=== PATIENT | female | born 1940 | race Caucasian/White ===

== ENCOUNTER 2017-08-10 11:03 | Outpatient (RCR) | payer MEDICARE, OTHER, SELFPAY ==
[2017-08-10 12:29] LABS: Prothrombin Time (Protime)PT. 21.6 SECONDS (11.7-14.9)
[2017-08-31 12:25] LABS: International Normalized Ratio 1.2; Prothrombin Time (Protime)PT. 14.3 SECONDS (11.7-14.9)
[2017-09-03 12:28] LABS: International Normalized Ratio 1.4; Prothrombin Time (Protime)PT. 16.5 SECONDS (11.7-14.9)
== END 2017-08-10 11:15 | disposition home or self-care (01) ==
LOC: MTLAB 11:03
PROVIDERS: Family Provider Nurse Practitioner; PCP Nurse Practitioner; Visit Provider Internal Medicine Cardiovascular Disease
DX: I48.0 Paroxysmal atrial fibrillation (principal)
CPT/HCPCS: 36415; 85610

== ENCOUNTER 2017-10-01 10:20 | Outpatient (RCR) | payer MEDICARE, OTHER, SELFPAY ==
[2017-07-27 14:45] VITALS: BP 120/60; BMI 30.7
[2017-09-10 12:42] LABS: International Normalized Ratio 1.9; Prothrombin Time (Protime)PT. 21.2 SECONDS (11.7-14.9)
[2017-09-16 14:27] LABS: International Normalized Ratio 2.4; Prothrombin Time (Protime)PT. 24.8 SECONDS (11.7-14.9)
[2017-10-01 12:36] LABS: International Normalized Ratio 1.8; Prothrombin Time (Protime)PT. 19.8 SECONDS (11.7-14.9)
== END 2017-10-01 15:00 | disposition home or self-care (01) ==
LOC: MTLAB 10:20
PROVIDERS: Family Provider Nurse Practitioner; PCP Nurse Practitioner; Visit Provider Internal Medicine Cardiovascular Disease
DX: I48.0 Paroxysmal atrial fibrillation (principal)
CPT/HCPCS: 36415; 85610

== ENCOUNTER 2017-10-18 11:08 | Outpatient (RCR) | payer MEDICARE, OTHER, SELFPAY ==
[2017-10-18 12:10] LABS: International Normalized Ratio 1.6; Prothrombin Time (Protime)PT. 19.5 SECONDS (11.7-14.9)
== END 2017-10-18 12:00 | disposition home or self-care (01) ==
LOC: MTLAB 11:08
PROVIDERS: Family Provider Nurse Practitioner; PCP Nurse Practitioner; Visit Provider Internal Medicine Cardiovascular Disease
DX: I48.0 Paroxysmal atrial fibrillation (principal)
CPT/HCPCS: 36415; 85610

== ENCOUNTER 2017-10-29 10:34 | Outpatient (RCR) | payer MEDICARE, OTHER, SELFPAY ==
[2017-10-29 12:11] LABS: Prothrombin Time (Protime)PT. 22.9 SECONDS (11.7-14.9)
== END 2017-10-29 11:00 | disposition home or self-care (01) ==
LOC: MTLAB 10:34
PROVIDERS: Family Provider Nurse Practitioner; PCP Nurse Practitioner; Visit Provider Internal Medicine Cardiovascular Disease
DX: I48.0 Paroxysmal atrial fibrillation (principal)
CPT/HCPCS: 36415; 85610

== ENCOUNTER → 2017-11-09 10:45 | Outpatient (CLI) | payer MEDICARE, OTHER, SELFPAY ==
--- NOTE | 2017-11-09 10:48 | BD_ITS ---
STUDY: DUAL ENERGY X-RAY ABSORPTIOMETRY / DXA REASON FOR EXAM: Female, 77 years old. The patient is postmenopausal. Loss of height of 2 inches. TECHNIQUE: Bone Mineral Density (BMD) measurements of lumbar spine and bilateral hips were obtained. COMPARISON: Comparison is made with prior study dated March 19, 2015. FINDINGS: Lumbar Spine (L1-L4): g/cm2 (1.264) / T-score (0.7) / Z-score (2.5) Findings are suggestive of normal bone density with a low fracture risk. Left Femur Total: g/cm2 (0.937) / T-score (-0.6) / Z-score (1.4) Left Femoral Neck: g/cm2 (0.858) / T-score (-1.3) / Z-score (0.8) Right Femur Total: g/cm2 (0.884) / T-score (-1.0) / Z-score (0.9) Right Femoral Neck: g/cm2 (1.007) / T-score (-0.2) / Z-score (1.8) The T-Scores on the most recent prior examination were: Lumbar Spine (L1-L4): There has been improvement of bone density since the previous examination. Left Femur Total: which represents a worsening of 3.7%. Right Femur Total: which represents a worsening of 2.9%. BD/Dexa Bone Density Study IMPRESSION: The patient is considered osteopenic as outlined below according to World Kir[employer] Organization (WHO) criteria with a moderate fracture risk. There has been worsening of bone density since the previous examination. Reference Information: The T-score is the number of standard deviations above or below the standard which is normal for young adults at their peak bone mineral density. The World Health Organization (WHO) interprets the T-scores as follows: Above -1 Normal bone density Between -1 and -2.5 Osteopenia Equal to / or below -2.5 Osteoporosis As a practical clinical guideline, osteopenia may be graded as follows: Mild -1 through -1.5 Moderate -1.6 through -2.0 Severe -2.1 through -2.4 The Z-score is the number of standard deviations above or below age-matched controls. A Z-score of less than -1.5 would be considered abnormal. References: 1. NIH Osteoporosis and Related Bone Diseases http://www.osteo.org 2. International Society for Clinical Densitometry http://www.iscd.org 3. National Osteoporosis Foundation http://www.nof.org Electronically Signed: Henry Jones MD at 13:40 EDT Tel [phone], Service support ,
== END ==
PROVIDERS: Family Provider Nurse Practitioner; PCP Nurse Practitioner; Visit Provider Nurse Practitioner
DX: M85.80 Other specified disorders of bone density and structure, unspecified site (principal); Z78.0 Asymptomatic menopausal state
CPT/HCPCS: 77080

== ENCOUNTER 2017-12-03 10:24 | Outpatient (RCR) | payer MEDICARE, OTHER, SELFPAY ==
[2017-11-12 12:49] LABS: International Normalized Ratio 2.2; Prothrombin Time (Protime)PT. 24.1 SECONDS (11.7-14.9)
[2017-12-03 12:27] LABS: International Normalized Ratio 2.1; Prothrombin Time (Protime)PT. 23.3 SECONDS (11.7-14.9)
== END 2017-12-03 11:00 | disposition home or self-care (01) ==
LOC: MTLAB 10:24
PROVIDERS: Family Provider Nurse Practitioner; PCP Nurse Practitioner; Visit Provider Internal Medicine Cardiovascular Disease
DX: I48.0 Paroxysmal atrial fibrillation (principal)
CPT/HCPCS: 36415; 85610

== ENCOUNTER 2017-12-31 08:11 | Outpatient (RCR) | payer MEDICARE, OTHER, SELFPAY ==
[2017-12-31 10:10] LABS: Color, Urine Yellow (Yellow); Glucose, Dipstick Normal (Normal); Ketone-Dipstick Negative (Negative); Leukocyte Esterase-Dipstick 100 /ul (Negative); Nitrite-Dipstick Negative (Negative); Occult Blood-Urine 50 /ul (Negative); Protein-Dipstick Negative (Negative); Urine Bilirubin Dipstick Negative (Negative); Urine Clarity Cloudy (Clear); Urine Urobilinogen Normal (Normal)
[2017-12-31 10:19] LABS: Absolute Lymphocyte Count 2.13 X10^3/ul (0.83-4.51); Absolute Neutrophil Count 2.7 X10^3/uL (2.0-7.7); Basophil# 0.02 X10^3/uL; Basophil% 0.4 % (0-1); Eosinophil# 0.19 X10^3/uL; Eosinophils% 3.4 % (0-5); Hematocrit 41.8 % (37-47); Lymphocyte # 2.13 X10^3/ul (4.0); Lymphocyte % 38.2 % (19-41); Mean Corp Hgb Conc 31.1 g/gl (32-36); Mean Corpuscular Hgb 29.7 pg (27.0-32.0); Mean Corpuscular Volume 95.4 fL (81-99); Mean Platelet Vol. 11.1 fl (6.2-12.0); Monocyte# 0.54 X10^3/uL; Monocyte% 9.7 % (0-10); Neutrophil # 2.69 X10^3/uL (2.7-7.7); Neutrophil % 48.1 % (47-70); POSITIVE COUNT NO; POSITIVE DIFFERENTIAL NO; POSITIVE MORPHOLOGY NO; Platelet Count 232 K/mm3 (150-450); RBC Distribution Width CV 14.1 % (11.6-14.6); RBC Distribution Width SD 49.6 fl (35.1-43.9); Red Blood Count 4.38 M/mm3 (4.2-5.4); White Blood Count 5.6 K/mm3 (4.4-11.0)
[2017-12-31 10:22] LABS: International Normalized Ratio 1.9; Prothrombin Time (Protime)PT. 21.5 SECONDS (11.7-14.9)
[2017-12-31 10:32] LABS: Microalbumin,Random Urine 13.5 mg/L (NO RANGE EST.); Microalbumin:Creatinine Ratio 8.4 mg/g CRE (<30 mg/g CRE)
[2017-12-31 10:55] LABS: ALB/GLOB Ratio 1.1 RATIO (0.9-2.4); AST(SGOT) 22 U/L (15-37); Alanine Aminotransfer ALT/SGPT 23 U/L (13-56); Albumin, Serum 3.7 g/dL (3.2-5.0); Alkaline Phosphatase 73 U/L (45-117); Anion Gap 8 (5-15); BUN 28 mg/dL (7-18); BUN/Creat Ratio 26.7 RATIO (10-20); Calcium,Total 8.5 mg/dL (8.5-10.1); Chloride 107 mmol/L (98-107); Cholesterol 164 mg/dL (200); Creatinine, Serum 1.05 mg/dL (0.55-1.02); EST Glomerular Filtration Rate 54 mL/min (>60); Est Glom Filt Rate - Afr Amer 65 mL/min (>60); Globulin 3.3 g/dL (2.2-4.2); Glucose 86 mg/dL (74-106); High Density Lipoprotein 68 mg/dL; Potassium 4.6 mmol/L (3.5-5.1); Sodium Level 143 mmol/L (136-145); Thyroid Stim Hormone (TSH) 2.92 uIU/mL (0.358-3.74); Triglycerides 85 mg/dL; Very Low Density Lipoprotein 17 mg/dL (5-40)
== END 2017-12-31 09:00 | disposition home or self-care (01) ==
LOC: MTLAB 08:11
PROVIDERS: Family Provider Nurse Practitioner; PCP Nurse Practitioner; Visit Provider Internal Medicine Cardiovascular Disease
DX: E78.00 Pure hypercholesterolemia, unspecified (principal); E03.9 Hypothyroidism, unspecified; I10 Essential (primary) hypertension; I48.0 Paroxysmal atrial fibrillation
CPT/HCPCS: 36415; 80053; 80061; 81002; 82043; 82570; 84443; 85025; 85610

== ENCOUNTER 2018-01-28 13:09 | Outpatient (RCR) | payer MEDICARE, OTHER, SELFPAY ==
--- NOTE | 2018-01-14 11:46 | DT_ITS ---
This patient was seen during an EMR downtime January 10, 2018 - January 17, 2018. This patient may have a combination of paper and electronic documentation or all paper documentation. All documentation is viewable within the e-chart portion of [facility] for each patient visit.
[2018-01-14 15:06] LABS: Prothrombin Time (Protime)PT. 22.8 SECONDS (11.7-14.9)
[2018-01-28 14:12] LABS: International Normalized Ratio 2.3; Prothrombin Time (Protime)PT. 25.7 SECONDS (11.7-14.9)
== END 2018-01-28 14:00 | disposition home or self-care (01) ==
LOC: MTLAB 13:09
PROVIDERS: Family Provider Nurse Practitioner; PCP Nurse Practitioner; Visit Provider Internal Medicine Cardiovascular Disease
DX: I48.0 Paroxysmal atrial fibrillation (principal)
CPT/HCPCS: 36415; 85610

== ENCOUNTER → 2018-02-10 10:50 | Outpatient (CLI) | payer MEDICARE, OTHER, SELFPAY ==
--- NOTE | 2018-02-10 10:52 | ECHOD_ITS ---
Reason For Study: DYSPNEA Procedure This was a 2D Doppler, Color Flow transthoracic echocardiogram. Exam performed in department. Left Ventricle Normal LV size. Transmitral and pulmonary venous doppler flow suggestive of impaired relaxation of left ventricle. Left ventricular systolic function is lower limits of normal. The estimated ejection fraction is 50 %. No regional wall motion abnormalities noted. Right Ventricle Normal RV size. Normal systolic function. Atria The left atrium is mildly enlarged. Normal right atrium. Mitral Valve Bileaflet diffuse mitral valve thickening. Mitral valve doming/Hockey Sticking. Peak transmitral valve gradient 6 mmHg. Mean transmitral valve gradient 3 mmHg. Mild mitral valve stenosis. Tricuspid Valve Normal tricuspid valve. Mild (1+) tricuspid valve insufficiency. Pulmonary artery systolic pressure is 26 mmHg. Aortic Valve Trisinus/trileaflet aortic valve. Pulmonic Valve Normal pulmonic valve. Great Vessels Normal aortic root. The pulmonary artery is normal size. Inferior vena cava collapse with respiration. Pericardium/Pleural No pericardial effusion. MMode/2D Measurements & Calculations LVIDd: 4.5 cm IVSd: 0.68 cm LAV(MOD-bp): 89.1 ml LVIDs: 3.3 cm LVPWd: 0.93 cm LAV(MOD-bp) Indexed: 48.8 ml/m2 RVDd: 3.1 cm FS: 27.8 % LAV(MOD-sp2): 116.8 ml LAV(MOD-sp4): 65.8 ml LA A4 area: 23.6 cm2 RA A4 area: 18.8 cm2 Time Measurements MV dec time: 0.40 sec Doppler Measurements & Calculations MV E max jaret: 94.1 cm/sec Lat Peak E' Jaret: 6.8 cm/sec Med Peak E' Jaret: 7.4 cm/sec MV A max jaret: 102.4 cm/sec E/E' lat: 13.7 E/E' med: 12.8 MV E/A: 0.92 MV V2 max: 121.1 cm/sec Ao V2 max: 108.4 cm/sec LV V1 max: 87.9 cm/sec MV max P.9 mmHg Ao max P.7 mmHg LV V1 max P.1 mmHg MV V2 mean: 83.1 cm/sec MV mean P.0 mmHg MV V2 VTI: 47.3 cm PA V2 max: 57.2 cm/sec TR max jaret: 239.6 cm/sec TR max P.0 mmHg Interpretation Summary Normal LV size. Transmitral and pulmonary venous doppler flow suggestive of impaired relaxation of left ventricle Left ventricular systolic function is lower limits of normal. The estimated ejection fraction is 50 %. Mitral valve doming/Hockey Sticking Mild mitral valve stenosis. Compared to prior study, there is no significant change. Ordering Physician: Jennifer Goodwin/Amilcar Bernardo Referring Physician: REGI BRO Performed By: Mary Hines, RDCS, RVT
== END ==
PROVIDERS: Family Provider Nurse Practitioner; PCP Nurse Practitioner; Visit Provider Physician Assistant Medical
DX: I42.0 Dilated cardiomyopathy (principal); R06.00 Dyspnea, unspecified; Z98.890 Other specified postprocedural states
CPT/HCPCS: 93306

== ENCOUNTER 2018-02-18 10:12 | Outpatient (RCR) | payer MEDICARE, OTHER, SELFPAY ==
[2018-02-18 12:19] LABS: International Normalized Ratio 2.2; Prothrombin Time (Protime)PT. 24.6 SECONDS (11.7-14.9)
== END 2018-02-18 12:00 ==
LOC: MTLAB 10:12
PROVIDERS: Family Provider Nurse Practitioner; PCP Nurse Practitioner; Visit Provider Internal Medicine Cardiovascular Disease
DX: I48.0 Paroxysmal atrial fibrillation (principal)
CPT/HCPCS: 36415; 85610

== ENCOUNTER → 2018-03-02 11:24 | Outpatient (CLI) | payer MEDICARE, OTHER, SELFPAY ==
--- NOTE | 2018-03-02 11:27 | RAD_ITS ---
STUDY: X-RAY - RIGHT FEMUR REASON FOR STUDY: Female, 77 years old. Pain. No known injury. TECHNIQUE: Radiological exam, femur, 4 views COMPARISON: X-ray right hip 07/19/2014. FINDINGS: Normal visualized femur. Normal visualized soft tissue structure. There is degenerative arthrosis of the right hip, similar to previous exam. RAD/Femur Min 2 Views IMPRESSION: Normal x-ray examination of the femur. Degenerative arthrosis of the right hip. Electronically Signed: Christiano Croft MD at 6:11 EDT , Service support ,
== END ==
PROVIDERS: Family Provider Nurse Practitioner; PCP Nurse Practitioner; Visit Provider Nurse Practitioner
DX: M16.11 Unilateral primary osteoarthritis, right hip (principal)
CPT/HCPCS: 73552

== ENCOUNTER 2018-03-18 11:02 | Outpatient (RCR) | payer MEDICARE, OTHER, SELFPAY ==
[2018-03-18 12:47] LABS: International Normalized Ratio 2.2; Prothrombin Time (Protime)PT. 24.3 SECONDS (11.7-14.9)
== END 2018-03-18 12:00 | disposition home or self-care (01) ==
LOC: MTLAB 11:02
PROVIDERS: Family Provider Nurse Practitioner; PCP Nurse Practitioner; Visit Provider Internal Medicine Cardiovascular Disease
DX: I48.0 Paroxysmal atrial fibrillation (principal)
CPT/HCPCS: 36415; 85610

== ENCOUNTER → 2018-04-07 09:48 | Outpatient (CLI) | payer MEDICARE, OTHER, SELFPAY | PROVIDERS: Family Provider Nurse Practitioner; PCP Nurse Practitioner; Visit Provider Surgery | DX: I87.2 Venous insufficiency (chronic) (peripheral) (principal); I83.10 Varicose veins of unspecified lower extremity with inflammation; M79.604 Pain in right leg | CPT/HCPCS: 93970 ==

== ENCOUNTER 2018-04-18 11:08 | Outpatient (RCR) | payer MEDICARE, OTHER, SELFPAY ==
[2018-04-18 14:12] LABS: International Normalized Ratio 2.2; Prothrombin Time (Protime)PT. 24.6 SECONDS (11.7-14.9)
== END 2018-04-18 13:00 | disposition home or self-care (01) ==
LOC: MTLAB 11:08
PROVIDERS: Family Provider Nurse Practitioner; PCP Nurse Practitioner; Visit Provider Internal Medicine Cardiovascular Disease
DX: I48.0 Paroxysmal atrial fibrillation (principal)
CPT/HCPCS: 36415; 85610

== ENCOUNTER 2018-05-13 11:07 | Outpatient (RCR) | payer MEDICARE, OTHER, SELFPAY ==
[2018-05-13 12:13] LABS: International Normalized Ratio 2.7; Prothrombin Time (Protime)PT. 28.4 SECONDS (11.7-14.9)
== END 2018-05-13 12:00 | disposition home or self-care (01) ==
LOC: MTLAB 11:07
PROVIDERS: Family Provider Nurse Practitioner; PCP Nurse Practitioner; Referring Provider Internal Medicine Cardiovascular Disease; Visit Provider Internal Medicine Cardiovascular Disease
DX: I48.0 Paroxysmal atrial fibrillation (principal); Z79.01 Long term (current) use of anticoagulants
CPT/HCPCS: 36415; 85610

== ENCOUNTER 2018-06-07 10:45 | Outpatient (RCR) | payer MEDICARE, OTHER, SELFPAY ==
[2018-06-07 11:55] LABS: International Normalized Ratio 2.8; Prothrombin Time (Protime)PT. 29.6 SECONDS (11.7-14.9)
[2018-06-07 12:14] LABS: ALB/GLOB Ratio 1.1 RATIO (0.9-2.4); AST(SGOT) 19 U/L (15-37); Alanine Aminotransfer ALT/SGPT 25 U/L (13-56); Albumin, Serum 3.8 g/dL (3.2-5.0); Alkaline Phosphatase 66 U/L (45-117); Anion Gap 5 (5-15); BUN 23 mg/dL (7-18); BUN/Creat Ratio 22.8 RATIO (10-20); Calcium,Total 8.6 mg/dL (8.5-10.1); Chloride 106 mmol/L (98-107); Cholesterol 182 mg/dL (200); Creatinine, Serum 1.01 mg/dL (0.55-1.02); EST Glomerular Filtration Rate 56 mL/min (>60); Est Glom Filt Rate - Afr Amer 68 mL/min (>60); Globulin 3.4 g/dL (2.2-4.2); Glucose 86 mg/dL (74-106); High Density Lipoprotein 69 mg/dL; Potassium 4.8 mmol/L (3.5-5.1); Protein, Total 7.2 g/dL (6.4-8.2); Sodium Level 141 mmol/L (136-145); Triglycerides 125 mg/dL; Very Low Density Lipoprotein 25 mg/dL (5-40)
== END 2018-06-07 12:00 | disposition home or self-care (01) ==
LOC: LAB 10:45
PROVIDERS: Family Provider Nurse Practitioner; PCP Nurse Practitioner; Referring Provider Internal Medicine Cardiovascular Disease; Visit Provider Internal Medicine Cardiovascular Disease
DX: I48.0 Paroxysmal atrial fibrillation (principal); E78.00 Pure hypercholesterolemia, unspecified; Z79.01 Long term (current) use of anticoagulants
CPT/HCPCS: 36415; 80053; 80061; 85610

== ENCOUNTER 2018-07-01 08:57 | Outpatient (RCR) | payer MEDICARE, OTHER, SELFPAY ==
[2018-07-01 09:27] LABS: Prothrombin Time (Protime)PT. 31.3 SECONDS (11.7-14.9)
[2018-07-01 10:00] LABS: AST(SGOT) 18 U/L (15-37); Alanine Aminotransfer ALT/SGPT 26 U/L (13-56); Albumin, Serum 3.5 g/dL (3.2-5.0); Alkaline Phosphatase 59 U/L (45-117); Bilirubin, Direct 0.13 mg/dL (0.00-0.30); Cholesterol 161 mg/dL (200); Globulin 3.1 g/dL (2.2-4.2); High Density Lipoprotein 73 mg/dL; Protein, Total 6.6 g/dL (6.4-8.2); Triglycerides 85 mg/dL; Very Low Density Lipoprotein 17 mg/dL (5-40)
[2018-07-01 10:22] LABS: Vitamin B12 382 pg/mL (211-911)
== END 2018-07-08 10:54 | disposition home or self-care (01) ==
LOC: LAB 08:57
PROVIDERS: Physician Assistant Medical; Family Provider Nurse Practitioner; PCP Nurse Practitioner; Referring Provider Internal Medicine Cardiovascular Disease; Visit Provider Internal Medicine Cardiovascular Disease
DX: I48.0 Paroxysmal atrial fibrillation (principal); E03.9 Hypothyroidism, unspecified; E53.8 Deficiency of other specified B group vitamins; E78.00 Pure hypercholesterolemia, unspecified
CPT/HCPCS: 36415; 80061; 80076; 82607; 82746; 84443; 85610

== ENCOUNTER → 2018-07-08 10:46 | Outpatient (CLI) | payer MEDICARE, OTHER, SELFPAY ==
--- NOTE | 2018-07-08 10:49 | BI_ITS ---
MAMMOGRAPHY - BILATERAL SCREENING REASON FOR EXAM: Female, 78 years old. Routine annual screening examination. PERTINENT HISTORY: Non-contributory. TECHNIQUE: Digital bilateral breast maurilio (3D mammographic acquisition) in the CC and MLO projections. 2-D mediolateral oblique (MLO) and craniocaudad (CC) views of both breasts were obtained. CAD: Full Field Digital Mammography with Computer Added Detection was performed. COMPARISON: Comparison is made with prior study dated May 17, 2017 and April 24, 2016. FINDINGS: Breast Composition: There are scattered areas of fibroglandular density. There are no dominant masses or suspicious calcifications. No other significant abnormalities are identified. There has been no significant change since the prior study. BI/SCREENING MAMM (CAD), BILAT IMPRESSION: Stable bilateral screening mammogram. Yearly follow-up mammogram recommended. (A) ASSESSMENT CATEGORY: BIRADS Category 1: Negative. A letter regarding these results will be sent to the patient by the facility within 30 days. Approximately 10% of breast cancers are not detected by mammography. A normal mammogram should not delay biopsy of a clinically suspicious abnormality. [id number] Electronically Signed: Henry Jones MD at 12:32 EST Tel [phone], Service support ,
--- OUTSIDE RECORDS SUMMARY | 2018-09-02 06:53 | XMS RPT_ITS | Continuity of Care Document ---
:1940 Author Organization [facility] Address [address] [facility] [address] [place] [address] Phone Care Team Providers Name Role Phone Tiffaniebonita ANGELIKA, Rianna Unavailable Amanda CHRISTIANSEN, Higinio Longoria Unavailable Turner CHRISTIANSEN, Nahun Plaza [facility] CB, Eugenie Tovar Unavailable Rosa CHRISTIANSEN, Susan Sánchez Unavailable Nahun Vazquez Unavailable Waleska Freitas Unavailable Unavailable Giselle Silva LPN Unavailable Unavailable Kelly Naqvi Unavailable Unavailable Manny Saldana Unavailable Unavailable Unavailable Unavailable Problems Name Dates Details Abnormal lung sounds (R09.89, 786.7) Status: Active Anemia (D64.9, 285.9) Status: Active Anticoagulated (Z79.01, V58.61) Comments: followed by [facility], on coumadin Status: Active Asthma, mild intermittent (J45.20, 493.90) Comments: taking Breo and proair air prn Status: Active Atrial fibrillation (I48.91, 427.31) Comments: back on coumadin follows with Jackson on pacerone EF 45% sees Sibilianew onset with hospitalization 5-29, cardioverted, was on coumadin Mar 2011 Status: Active 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 Patel given hose and pill called Vasculera he will follow up end of Decshe feels worsening since laser Ablation of rt greater saphenous vein Status: Active Cold virus (J00, 460) Status: Active Cough (R05, 786.2) Status: Active Current nonsmoker (Z78.9, V49.89) Status: Active DEFICIENCY, VITAMIN D NOS (E55.9, 268.9) Status: Active Encounter for Medicare annual wellness exam (Z00.00, V70.0) Status: Active Encounter for other screening for malignant neoplasm of breast (Z12.39, V76.19) Status: Active Encounter for screening mammogram for breast cancer (Renamed from Encounter for screening mammogram for malignant neoplasm of breast) (Z12.31, V76.12) Status: Active Hypercholesterolemia (E78.00, 272.0) Comments: backed off cholest med from March 03 to Mar 23 because of myalgia, then back on 1/2 the dose, get lipid in Jun 2018 Status: Active Hyperkalemia (E87.5, 276.7) Status: Active Hypertension, essential, benign (I10, 401.1) Comments: to do silver sneakers Status: Active Hypertensive heart disease (I11.9, 402.90) Comments: on carvedilol and paceroneOfori does EKG and choles Status: Active Hypothyroidism (E03.9, 244.9) Comments: stable on thyroid med Status: Active Irritable bowel syndrome (K58.9, 564.1) Comments: uses align Status: Active Left knee pain (M25.562, 719.46) Comments: uses glucosaminearthritis Status: Active Mitral stenosis with insufficiency (I05.2, 394.2) Status: Active Need for prophylactic vaccination (Renamed from Need for immunization against influenza) (Z23, V04.81) Status: Active Need for prophylactic vaccination and inoculation against influenza (Z23, V04.81) Status: Active Need for prophylactic vaccination and inoculation against influenza (Renamed from Need for immunization against influenza) (Z23, V04.81) Status: Active Need for prophylactic vaccination and inoculation against influenza (Renamed from Need for immunization against influenza) (Z23, V04.81) Status: Active Need for prophylactic vaccination and inoculation against influenza (Renamed from Need for immunization against influenza) (Z23, V04.81) Status: Active Need for vaccination against Streptococcus pneumoniae (Z23, V03.82) Status: Active Nonsmoker (Z78.9, V49.89) Status: Active Osteoarthritis, unspecified osteoarthritis type, unspecified site (M19.90, 715.90) Comments: back hip Status: Active Osteopenia (M85.80, 733.90) Status: Active Other and unspecified ovarian cyst (N83.209, 620.2) Status: Active 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 muscle vs sciatica vs other on simvastatin 20mg after holding from March 03 improving after off for 7 days, Continue to hold x 3 weeks then resume on 1/2 the dose Status: Active Screening mammogram, encounter for (Z12.31, V76.12) Status: Active SOB (shortness of breath) on exertion (R06.02, 786.05) Comments: Stress ECho 16-20 EF 55%, Echo annuloplasty ring in mitral position PFT with mild obstructive vent impairment , consis tiwth COPD or ASthamPt on amiodarone!!!! Sending to PUlmExtensive work up per Ofo ri with Mild obstructive ventilatory impairmenCOPD or asthma or amiodarone? ? change in SOb since on amio Status: Active Sorethroat (J02.9, 462) Comments: suspect viral etiology based on pnd -clear and cobblestoning on exam Status: Active Type B influenza (J10.1, 487.1) Comments: Does not want treated. 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 Advair Diskus 100-50 MCG/DOSE Inhalation Aerosol Powder Breath Activated 1 (one) Puff bid for 30 days Quantity: 2 {Inhaler} Refills: 3 Ordered:11-May-2018 Waleska Freitas Start : 11-May-2018 Active Advair Diskus 100-50 MCG/DOSE Inhalation Aerosol Powder Breath Activated 1 (one) Puff bid for 90 days Quantity: 2 {Inhaler} Refills: 3 Ordered:11-May-2018 Waleska Freitas Start : 11-May-2018 Active ALIGN, 4MG (Oral Capsule) 1 (one) Capsule daily for 360 days Refills: 0 Ordered:11-Feb-2015 Hang CARNEY, Sarai Ace CNP, Rianna Start : 11-Feb-2015 Active Breo Ellipta 100-25 MCG/INH Inhalation Aerosol Powder Breath Activated 1 (one) Puff Puff qd for 30 days Quantity: 30 {Inhalation} Refills: 4 Ordered:02-Mar-2018 Giselle Silva LPN Start : 25-Jan-2018 Active Comments:diane manages CALCIUM, 500MG (Oral Tablet) 2 (two) Tablet qd for 0 days Refills: 0 Ordered:22-Apr-2011 Slarb Giselle CRANE Start : 22-Apr-2011 Active COQ10, 100MG (Oral Capsule) 1 (one) Capsule Capsule daily for 0 days Quantity: 30 {Capsule} Refills: 0 Ordered:25-Jul-2014 Penny Irving LPN Start : 18-Jul-2014 Active Coreg 6.25 MG Oral Tablet 2 (two) Tablet two times daily for 0 days Quantity: 180 {Tablet} Refills: 3 Ordered:05-Oct-2016 Hang CARNEY, Sarai Ace CNP, Sarai Moon Start : 05-Oct-2016 Active Cosamin [facility] for [facility] Oral Capsule Active COUMADIN, 2MG (Oral Tablet) 1 (one) Tablet as needed for 360 days Refills: 0 Ordered:11-Feb-2015 Hang CARNEY, Sarai Ace CNP, Sarai Moon Start : 11-Feb-2015 Active Comments:Medication taken as needed. Dr Paz Fosamax 70 MG Oral Tablet 1 (one) Tablet q week for 30 days Quantity: 4 {Tablet} Refills: 6 Ordered:03-Jun-2018 Hang CARNEY, Sarai Ace CNP, Sarai Moon Start : 03-Jun-2018 Active Comments:Take w/ water, 30 min before you eat, or drink, or take medicine. Avoid laying down for 30 minutes after. Start 11/24/2017 stop 5 years after 11/2022 Lasix 40 MG Oral Tablet 1 (one) Tablet every other day for 360 days Quantity: 90 {Tablet} Refills: 0 Ordered:13-Apr-2017 Hang CARNEY, Sarai Ace CNP, Sarai Moon Start : 13-Apr-2017 Active LISINOPRIL, 40MG (Oral Tablet) 1 Tablet qd for 0 days Quantity: 90 {Tablet} Refills: 3 Ordered:16-Oct-2011 Penny Irving LPN Start : 16-Oct-2011 Active Pacerone 200 MG Oral Tablet 1/2 (one half) Tablet daily for 0 days Quantity: 60 {Tablet} Refills: 3 Ordered:31-Mar-2016 SlaGiselle goetz LPN Start : 31-Mar-2016 Active Synthroid 25 MCG Oral Tablet 1 Tablet QD for 0 days Quantity: 90 {Tablet} Refills: 3 Ordered:01-May-2018 Hang CARNEY, Sarai Ace CNP, Sarai Moon Start : 01-May-2018 Active Vasculera Oral Tablet 1 (one) Tablet Tablet daily for 0 days Quantity: 30 {Tablet} Refills: 0 Ordered:05-Oct-2016 Hang CARNEY, Sarai Ace CNP, Sarai Moon Start : 05-Oct-2016 Active Comments:Dr Ptael Vitamin D 2000 UNIT Oral Capsule 1 (one) Capsule Capsule daily for 30 days Quantity: 30 {Capsule} Refills: 11 Ordered:02-Mar-2018 Hang CARNEY, Sarai Ace CNP, Sarai Moon Start : 26-Nov-2017 Active Zithromax Z-Kevin 250 MG Oral Tablet 1 Tablet uad for 0 days Quantity: 1 {Package} Refills: 0 Ordered:18-May-2018 Hang CARNEY, Sarai Ace CNP, Sarai Moon Start : 18-May-2018 Active ALBUTEROL SULFATE HFA, 108MCG/ACT (Inhalation Aerosol Soln) 2 (two) Aerosol Soln QID/PRN for 0 days Quantity: 1 {Aerosol_Soln} Refills: 0 Ordered:08-Jul-2006 Laurence Moreno Start : 08-Jul-2006 End : 16-Jun-2007 Inactive ALIGN (Oral Capsule) 1 (one) Capsule daily for 0 days Quantity: 30 {Capsule} Refills: 0 Ordered:21-Jun-2012 Penny Irving LPN Start : 22-Apr-2011 End : 21-Jun-2012 Inactive AMIODARONE HCL, 200MG (Oral Tablet) 1 Tablet daily for 0 days Quantity: 30 {Tablet} Refills: 0 Ordered:22-Apr-2011 Penny Irving LPN Start : 04-Feb-2011 End : 22-Apr-2011 Inactive Amoxicillin 500 MG Oral Tablet 4 Tablet 1hour prior to procedure for 0 days Quantity: 4 {Tablet} Refills: 1 Ordered:07-Sep-2017 Kelly Naqvi Start : 21-Jul-2017 End : 07-Sep-2017 Inactive ASPIRIN LOW DOSE, 81MG (Oral Tablet) 1 QD for 0 days Refills: 0 Ordered:22-Apr-2011 Penny Irving LPN Start : 20-Jul-2006 End : 22-Apr-2011 Inactive AUGMENTIN, 875-125MG (Oral Tablet) 1 (one) Tablet bid for 14 days Quantity: 28 {Tablet} Refills: 0 Ordered:25-Jul-2014 Hang CARNEY, Sarai Ace CNP, Sarai Moon Start : 25-Jul-2014 End : 08-Aug-2014 Inactive B-12 1000 MCG Oral Tablet Extended Release 1 (one) Tablet ER weekly for 360 days Refills: 0 Ordered:13-Apr-2017 Sarai Bro CNP, CNP, Mary E Start : 13-Apr-2017 End : 08-Apr-2018 Inactive CHERATUSSIN AC, 100-10MG/5ML (Oral Syrup) 1 Teaspoon(s) qhs prn for cough for 0 days Quantity: 6 {Ounce} Refills: 0 Ordered:09-Jan-2014 PRESTON Thompson Start : 22-Sep-2013 End : 09-Jan-2014 Inactive COUMADIN, 2.5MG (Oral Tablet) 1 Tablet daily for 0 days Quantity: 30 {Tablet} Refills: 0 Ordered:22-Apr-2011 Penny Irving LPN Start : 13-Jan-2011 End : 22-Apr-2011 Inactive DOXYCYCLINE HYCLATE, 100MG (Oral Capsule) 1 Capsule bid for 10 days Quantity: 20 {Capsule} Refills: 0 Ordered:18-Aug-2013 Hang CARNEY, Sarai Jung CNP Start : 18-Aug-2013 End : 28-Aug-2013 Inactive DRISDOL, 17179NAPV (Oral Capsule) 1 Capsule twice weekly for 0 days Quantity: 24 {Capsule} Refills: 0 Ordered:21-Jul-2011 Penny Irving LPN Start : 10-Apr-2011 End : 21-Jul-2011 Inactive Fosamax Plus D 70-2800 MG-UNIT Oral Tablet 1 (one) Tablet q week for 0 days Quantity: 4 {Tablet} Refills: 6 Ordered:26-Nov-2017 Manny Saldana Start : 24-Nov-2017 End : 26-Nov-2017 Inactive Comments:take with water, 30min before you eat or drink or take medication. Avoid lying down x 30min. Start date November 24 stop date in 5 years KETEK KEVIN, 400MG (Oral Tablet) 2 (two) Tablet QD for 0 days Quantity: 10 {Tablet} Refills: 0 Ordered:08-Jul-2006 Laurence Moreno Start : 08-Jul-2006 End : 16-Jun-2007 Inactive LEVAQUIN, 500MG (Oral Tablet) 1 daily for 0 days Refills: 0 Ordered:31-Mar-2010 Kole Irving LPNactive LEVSIN/SL, 0.125MG (Sublingual Tablet Sublingual) Tab Sublingual BID/PRN for 0 days Quantity: 20 {Tab_Sublingual} Refills: 1 Ordered:28-Nov-2007 PRESTON Thompson Start : 28-Nov-2007 End : 25-Sep-2008 Inactive LIPITOR, 10MG (Oral Tablet) 1 Tablet qhs qod for 0 days Quantity: 30 {Tablet} Refills: 0 Ordered:25-Jul-2014 Penny Irving LPN Start : 18-Jan-2012 End : 25-Jul-2014 Inactive Comments:per Jackson L-THYROXINE, 25MCG (PO Tab) 1 qd for 0 days Refills: 0 Ordered:18-Feb-2007 Laurence Moreno End : 16-Jun-2007 Inactive PRAVASTATIN SODIUM, 40MG (Oral Tablet) 1 Tablet QD for 0 days Quantity: 30 {Tablet} Refills: 6 Ordered:22-Apr-2011 Penny Irving LPN Start : 21-Oct-2010 End : 22-Apr-2011 Inactive PredniSONE 10 MG Oral Tablet 3 (three) Tablet daily for 7 days Quantity: 21 {Tablet} Refills: 0 Ordered:15-Nov-2017 Hang DIRECTOR OF FINANCIAL REPORTING, Sarai ANETTEaelyin DIRECTOR OF FINANCIAL REPORTING, Rianna Start : 15-Nov-2017 End : 22-Nov-2017 Inactive Comments:with food PREMARIN, 0.625MG (Oral Tablet) 1 QD for 0 days Refills: 0 Ordered:20-Jul-2006 Laurence Moreno Start : 20-Jul-2006 End : 16-Jun-2007 Inactive Simvastatin 20 MG Oral Tablet 1 (one) Tablet every other day for 0 days Quantity: 90 {Tablet} Refills: 3 Ordered:09-Mar-2018 Waleska Freitas Start : 25-Jul-2014 End : 09-Mar-2018 Inactive SYMBICORT, 160-4.5MCG/ACT (Inhalation Aerosol) 2 (two) Puff Puff bid for 0 days Quantity: 1 {Inhaler} Refills: 12 Ordered:13-Apr-2014 Lucrecia Vargas Start : 09-Jan-2014 End : 13-Apr-2014 Inactive Vitamin D 2000 UNIT Oral Capsule 1 (one) Capsule Mondays for 365 days Refills: 0 Ordered:26-Nov-2017 Manny Saldana Start : 06-Jul-2016 End : 26-Nov-2017 Inactive VITAMIN E, 100UNIT (Oral Capsule) Unsure Unsure for 0 days Refills: 0 Ordered:28-May-2008 Laurence Moreno End : 16-Jun-2007 Inactive Advair HFA 115-21 MCG/ACT Inhalation Aerosol 2 (two) Puff(s) bid for 0 days Quantity: 1 {Aerosol} Refills: 3 Ordered:17-Feb-2016 Giselle Silva LPN Start : 22-Mar-2014 End : 17-Feb-2016 Discontinued ASMANEX 120 METERED DOSES, 220MCG/INH (Inhalation Aerosol Powder Breath Activated) 1 Aero Pow Br Act bid for 0 days Quantity: 1 {Aero_Pow_Br_Act} Refills: 11 Ordered:15-May-2014 Penny Irving LPN Start : 18-Jan-2012 End : 15-May-2014 Discontinued ASPIRIN, 325MG (Oral Tablet) 1 Tablet daily for 1530 days Refills: 0 Ordered:11-Feb-2015 Penny Irving LPN Start : 22-Apr-2011 End : 11-Feb-2015 Discontinued AZITHROMYCIN, 500MG (Oral Tablet) 1 (one) Tablet Daily for 0 days Quantity: 5 {Tablet} Refills: 0 Ordered:12-Oct-2007 Laurence Moreno Start : 12-Oct-2007 End : 28-Nov-2007 Discontinued Benzonatate 200 MG Oral Capsule 1 (one) Capsule TID for 0 days Quantity: 21 {Capsule} Refills: 0 Ordered:19-Oct-2017 Manny Saldana Start : 07-Sep-2017 End : 19-Oct-2017 Discontinued LOTREL, 5-20MG (Oral Capsule) 1 qd for 0 days Refills: 0 Ordered:28-May-2008 Laurence Moreno End : 20-Jul-2006 Discontinued LOTREL, 5-20MG (Oral Capsule) 1 Capsule qd for 0 days Refills: 0 Ordered:20-Jul-2006 Laurence Moreno Start : 20-Jul-2006 End : 20-Jul-2006 Discontinued Medrol 4 MG Oral Tablet Therapy Pack 1 (one) Tablet Tablet TAD for 0 days Quantity: 1 {Package} Refills: 0 Ordered:17-Feb-2016 Giselle Silva LPN Start : 28-Jan-2016 End : 17-Feb-2016 Discontinued Comments:with food MELOXICAM, 7.5MG (Oral Tablet) 1 Tablet daily as needed for joint pain for 0 days Quantity: 30 {Tablet} Refills: 0 Ordered:15-May-2014 Penny Irving LPN Start : 23-Jun-2013 End : 15-May-2014 Discontinued Comments:Medication taken as needed. Hold ASA while on this drug OMEGA 3, 1000MG (Oral Capsule) 1 Capsule bid for 0 days Quantity: 60 {Capsule} Refills: 0 Ordered:10-May-2015 Slarb LABORATORY OPERATIONS COORDINATORGiselle Benson Start : 22-Apr-2011 End : 10-May-2015 Discontinued ProAir HFA 108 (90 Base) MCG/ACT Inhalation Aerosol Solution 2 (two) Aerosol Soln tid for 0 days Quantity: 1 {Inhalation} Refills: 6 Ordered:19-Oct-2017 Manny Saldana Start : 07-Sep-2017 End : 19-Oct-2017 Discontinued ZYRTEC ALLERGY, 10MG (Oral Tablet) 1 (one) Tablet Tablet daily for 0 days Quantity: 30 {Tablet} Refills: 0 Ordered:15-May-2014 Penny Irving LPN Start : 22-Mar-2014 End : 15-May-2014 Discontinued Allergies and Adverse Reactions Name Dates Details Allergy History Unknown (Allergy) Status: Resolved No Known Drug Allergies (Allergy) Onset: 18-Aug-2013 Status: Active Past Medical History Name Dates Details Abdominal pain, acute, generalized (R10.84, 789.07) Status: Inactive as of 13-Apr-2017 Abnormal blood chemistry (R79.9, 790.6) Status: Inactive as of 13-Apr-2017 Acute asthma exacerbation (Renamed from Asthma with acute exacerbation) (J45.901, 493.92) Status: Inactive as of 02-Mar-2018 Acute sinusitis, unspecified (J01.90, 461.9) Comments: stay on claritin can add mucinex. not better 1 week Status: Inactive as of 03-Dec-2008 Bleeding gums (K06.8, 523.8) Status: Resolved as of 10-May-2015 BMI 29.0-29.9,adult (Z68.29, V85.25) Status: Resolved as of 13-Apr-2017 BMI 30.0-30.9,adult (Z68.30, V85.30) Status: Inactive as of 02-Mar-2018 Body aches (R52, 780.96) Status: Inactive as of 02-Mar-2018 Bronchitis (J40, 490) 22-Aug-2012 Comments: mucinex Status: Inactive as of 13-Apr-2017 Cerumen impaction (H61.20, 380.4) Status: Inactive as of 09-Jan-2014 Cough (R05, 786.2) Status: Inactive as of 13-Apr-2017 Cough (R05, 786.2) Status: Inactive as of 02-Mar-2018 Cough (R05, 786.2) Status: Inactive as of 03-Dec-2008 Diarrhea (R19.7, 787.91) Status: Inactive as of 23-Dec-2009 Diverticulosis of colon (K57.30, 562.10) Status: Inactive as of 13-Apr-2017 Elbow pain, right (M25.521, 719.42) Comments: tennis Status: Inactive as of 13-Apr-2017 Excessive use of nonsteroidal anti-inflammatory drug (NSAID) (F55.8, 305.90) Comments: for leg surgery, will check labs today, had vein ligation with stripping on 04-03 and 04-29 Dr. Hill Status: Inactive as of 13-Apr-2017 Fatigue (R53.83, 780.79) Comments: does not drink enough water Status: Inactive as of 13-Apr-2017 Foot pain (M79.673, 729.5) Status: Inactive as of 22-Apr-2011 Hematuria, unspecified (R31.9, 599.70) Comments: trigonitis and remnant in dome of bladder to follows up with John Status: Inactive as of 13-Apr-2017 Hip pain, right (M25.551, 719.45) Status: Inactive as of 13-Apr-2017 Hydronephrosis (N13.30, 591) Status: Inactive as of 22-Apr-2011 Hypertension (I10, 401.9) Status: Inactive as of 09-Jan-2014 Hypertrophic and atrophic condition of skin (L91.9, 701.9) Comments: & irritated mole Status: Inactive as of 15-Jan-2009 Hysterectomy; Abdominal Comments: Right BSO Status: Inactive as of 03-Dec-2008 LOW BACK PAIN (Renamed from LBP (low back pain)) (M54.5, 724.2) Status: Inactive as of 13-Apr-2017 Paresthesia (R20.2, 782.0) Status: Inactive as of 22-Apr-2011 Poison iveth (L23.7, 692.6) Status: Inactive as of 25-Jan-2018 Sciatica (M54.30, 724.3) Comments: resolving has arthritis spine Status: Inactive as of 13-Apr-2017 Thigh pain (M79.659, 729.5) Comments: rt thigh add CoQ10 Status: Inactive as of 13-Apr-2017 Unspecified Diagnosis Status: Inactive as of 09-Jan-2014 Well woman exam (Z01.419, V72.31) Status: Inactive as of 13-Apr-2017 Procedures Procedure Dates Details Basal Cell Carcinoma Excision Completed Comments: June 2015 Dr. Hall Removal leg veins 04/03/15 R leg.... 04/29 left Completed leg Date Value Details 08-Apr-2018 Venous Duplex Lower Extremity Result: Comments: See Note; NOTES: [facility] [address] [place] [address] Venous Duplex US - Paulie Extrem 04/07/18 1000 MR#: [id number] Acct: [id number] Name: VALERIE CRAIN Rep #: [id number] : 1940 77 From: Higinio Patel MD Attending Dr: Higinio Patel MD Status: REG CLI Ordering Dr: Higinio Patel MD Date: 04/07/18 Location: [facility] Sex: F C Admitted: Reason For Study: LEG PAIN RIGHT LEFT CFV is compressible, spontaneous, phasic, CFV is compressible, spontaneous, phasic, competent and demonstrates normal competent, and demonstrates normal augmenta tion. augmentation. FV is compressible, spontaneous, phasic, FV is compressible, spontaneous, phasic, competent and demonstrates normal competent and demonstrates normal augmentation. augmentation. POP V is compressible, spontaneous, phasic, POP V is compressible, spontaneous, phasic, competent and demonstrates normal competent and demonstrates normal augmentation. augmentation. T/P Trunk is compressi ble. T/P Trunk is compressible. PTV is compressible. PTV is compressible. RT PerV is compressible. LT PerV is compressible. GSV occluded above knee s/p EVLA SFJ competent GSV INCOMPETENT below knee with reflux GSV competent from junction to prox thigh. greater than .5 sec Not visualized from prox thigh to knee. SSV competent. GSV INCOMPETENT below knee with reflux Procedure greater than .5 sec and fernando meter of .39 Exam performed in department. x .37 cm SSV competent. Interpretation Summary Deep veins of the lower extremities are bilaterally patent and compressible segmentally. There is no evidence o f deep vein thrombosis on either side. Valvular competence appears intact within the proximal deep venous systems bilaterally. The right greater saphenous vein is occluded above the knee, consistent wit h a prior endothermal ablation procedure. The right greater saphenous vein appears incompetent below the knee. The left sapheno-femoral junction is competent . The left greater saphenous vein is patent and competent from the left sapheno-femoral junction to the proximal thigh. The left greater saphenous vein is not visualized from the proximal thigh to the knee. The left greater saphenous vein is inco mpetent below the knee. Small saphenous veins are patent and competent bilaterally. Ordering Phys ician: Higinio Patel Referring Physician: Sarai Bro Performed By: Tamanna Mittal RVT 04/08/18 1605 Date Higinio Patel MD CC: Sarai Bro MDM SR; Higinio Patel MD Date Dictated: 04/07/18 1000 Date Transcribed: 04/08/181604 Tile Grader: Signed 02-Mar-2018 Femur Min 2 Views Result: Comments: See Note; NOTES: [facility] [address] [facility] [address] Femur Min 2 Views MR#: [id number] Acct: [id number] Name: VALERIE CRAIN Jose Alejandro Rep #: [id number] : 1940 F 77 From: Christiano Croft MD PCP: Sarai Bro NP Status: REG CLI Study: Femur Min 2 Views Date of Exam: 03/02/18 Exam# [id number] Ordering Dr: Sarai Bro STUDY: X-RAY - RIGHT FEMUR REASON FOR STUDY: Female, 77 years old. Pain. No known injury. TECHNIQUE: Radiological exam, femur, 4 views COMPARISON: X-ray right hip 07/19/2014. FINDINGS: Norm al visualized femur. Normal visualized soft tissue structure. There is degenerative arthrosis of the right hip, similar to previous exam. RAD/Fe mur Min 2 Views IMPRESSION: Normal x-ray examination of the femur. Degenerative arthrosis of the right hip. Electronically Signed: Christiano Croft MD at 6:11 EDT , Ser vice support , CC: Sarai Bro NP Tile Grader: Signed 10-Feb-2018 Echocardiogram Complete Result: Comments: See Note; NOTES: [facility] [address] [place] [id number] Echo Complete 02/10/18 1100 MR#: [id number] Acct: [id number] Name: VALERIE CRAIN Rep #: [id number] : 1940 77 From: Amilcar Paz MD Attending Dr: Jennifer Goodwin Status: REG CLI Ordering Dr: Jennifer Goodwin Date: 02/10/18 Location: [facility] Sex: F C Admitted: [facility] For Study: DYSPNEA Procedure This was a 2D Doppler, Color Flow transthoracic echocardiogram. Exam performed in department. Left Ventricle Normal LV size. Transmitral and pulmonary venous doppler sofie w suggestive of impaired relaxation of left ventricle. Left ventricular systolic function is lower limits of normal. The estimated ejection fraction is 50 %. No regional wall motion abnormalities noted. Right Ventricle Normal RV size. Normal systolic function. Atria The left atrium is mildly enlarged. Normal right atrium. Mitral Valve Bileaflet diffuse mitral valve thickening. Mitral valve doming/& amp;#34;Hockey Sticking. Peak transmitral valve gradient 6 mmHg. Mean transmitral valve gradient 3 mmHg. Mild mitral valve stenosis. Tricuspid Valve Normal tricuspid valve. Mild (1+) tricuspid valve insufficiency. Pulmonary artery systolic pressure is 26 mmHg. Aortic Valve Trisinus/trileaflet aortic valve. Pulmonic Valve Normal pulmonic valve. Great Vessels Normal aortic root. The pulmonar y artery is normal size. Inferior vena cava collapse with respiration. Pericardium/Pleural No pericardial effusion. MMode/2D Measurements AND Calculations LVIDd: 4.5 cm IVSd: 0.68 cm LAV(MOD-bp): 89.1 ml LVIDs: 3.3 cm LVPWd: 0.93 cm LAV(MOD-bp) Indexed: 48.8 ml/m2 RVDd: 3.1 cm FS: 27.8 % LAV(MOD-sp2): 116.8 ml LAV(MOD-sp4): 65.8 ml LA A4 area: 23.6 cm2 RA A4 area: 18.8 cm2 Time Measurements MV dec time: 0.40 sec Doppler Measurements AND Calculations MV E max jethro: 94.1 cm/sec Lat Peak E' Jethro: 6.8 cm/sec Med Peak E' Jethro: 7.4 cm/sec MV A max jethro: 102.4 cm/sec E/E' lat: 13.7 E/E' med: 12.8 MV E/A: 0.92 MV V2 max: 121.1 cm/sec Ao V2 max: 108.4 cm/sec LV V1 max: 87.9 cm/sec MV max P.9 mmHg Ao max P.7 mmHg LV V1 max P.1 mmHg MV V2 mean: 83.1 cm/sec MV mean P.0 mmHg MV V2 VTI: 47.3 cm PA V2 max: 57.2 cm/sec TR max jethro: 239.6 cm/sec TR max P.0 mmHg Interpretation Summary Normal LV size. Transmitral and pulmonary venous doppler flow sugg estive of impaired relaxation of left ventricle Left ventricular systolic function is lower limits of normal. The estimated ejection fraction is 50 %. Mitral valve doming/Hockey Sticking&#3 4; Mild mitral valve stenosis. Compared to prior study, there is no significant change. Ordering Physician: Jennifer Goodwin/Amilcar Paz Referring Physician: SAARI BRO Performed By: Mary Hines RDCS, RVT 02/10/18 1241 Date Amilcar Paz MD CC: Sarai Bro MDM SR; Jennifer Goodwin Date Dictated: 02/10/18 1100 Date Transcribed: 02/10/18 1241 Tile Grader: Signed 28-Jan-2018 Cardiology Visit Report Result: Comments: See Note; NOTES: [facility] [address] [place] [address] OFFICE VISIT Date of Service: 01/28/18 MR#: [id number] Acct: [id number] Name: VALERIE CRAIN Rep #: [id number] : 1940 Provider: Jennifer Goodwin Age/Sex: 77/F Location: [facility] Status: Signed HPI HPI Details: VALERIE CRAIN, is a 77 F who presents to the office today for a cardiovasc ular follow-up. She has a history of mitral valve disorder with mitral vavle repair in 1999, mild decrease in her left ventricular function, paroxysmal atrial fibrillation. From a cardiac standpoint, fatuma whyte is doing well. She does not have any chest discomfort/heaviness/tightness. Her exercise tolerance is stable for her age. 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 She does have SOB with exertion, s he can not tell me if this is worse but feels that this is concerning. any worsening symptoms of shortness of breath. She denies PND. She does not have any symptoms of congestive heart failure. She does not have any palpitations that she is aware of. She does not have any lightheadedness or dizziness. She does not have any near-syncope or syncope. She does have swelling in her legs. She does not have any symptoms of claudication. Intake Vital Signs01/28/18 Height 5 ft 4 in 01/28/18 Weight: 176 lb 01/28/18 Body Mass Index (BMI) 30.2 Intake Visit Reasons: 6 M FU Allergies No Known Allergies Aller gy (Verified 01/11/15 12:06) Medications Calcium (Elemental) [Caltrate-600] 600 mg PO DAILY@0800 01/11/15 [History Confirmed 01/28/18] Carvedilol [Coreg] 12.5 mg PO BID 01/11/15 [History Confirmed 0 01/28/18] Cholecalciferol (VIT D3) [Vitamin D] 2,000 unit PO DAILY 01/11/15 [History Confirmed 01/28/18] Cyanocobalamin [Vitamin B12] 1,000 mcg PO DAILY@0800 01/11/15 [History Confirmed 01/28/18] Furosem helen [Lasix] 40 mg PO DAILY 01/11/15 [History Confirmed 01/28/18] Levothyroxine Sodium [Levoxyl] 25 mcg PO DAILY 01/11/15 [History Confirmed 01/28/18] Lisinopril [Zestril] 40 mg PO DAILY 01/11/15 [Histor y Confirmed 01/28/18] amiodarone 200 mg tablet 100 mg PO .COMPLEX 07/26/17 [History Confirmed 01/28/18] simvastatin 20 mg tablet 20 mg PO QHS #90 tab 01/20/18 [Rx Confirmed 01/28/18] warfarin 2 mg table t 2 mg PO .COMPLEX #120 tab 01/20/18 [Rx Confirmed 01/28/18] alendronate 70 mg tablet PO 28 Days #4 01/28/18 [History Confirmed 01/28/18] fluticasone 100 mcg- vilanterol 25 mcg/dose powder for inhalation 1 inh INHALATION QDAY 01/28/18 [History Confirmed 01/28/18] PFSH Medical History Dilated cardiomyopathy (Chronic) History of mitral valve disorder (Chronic) Paroxysmal atrial fibrillation (Chronic) skilled nursing (current) use of anticoagulants (Chronic) Benign essential HTN (Chronic) Surgical History History of appendectomy (Resolved) H/O mitral valve repair (Chronic) Family History Father Decea sed, age 48 from [place] CAD (coronary artery disease) Sudden cardiac Myocardial infarction Mother , age 94, had CABG at age 85 CAD (coronary artery disease) Social History Smoking Status: Never smoker ROS Const Const: Negative for weakness, fatigue, fever(s) or headache(s) Eyes Eyes: Negative for blind spots, loss of peripheral vision or transient loss of vision ENT ENT: Neg ative for headache(s), dizziness, tinnitus or Nosebleed/epistaxis Cardio Chest Pain: No Palpitations: No Edema: Bilateral Muscle aches with walking: None Resp Respiratory: Positive for SOB with activity ; negative for SOB at rest, SOB orthopnea\SOB lying down or Cough GI GI: Negative nausea, vomiting, heartburn or vomiting blood/hematemesis : Negative for hematuria Musc Musc: Negative for muscle a ches/ myalgia Neuro Neuro: Negative for weakness, headache(s), dizziness, near syncope, syncope, lightheadedness or orthostatic symptoms Oscar Hematologic/Lymphatic: Negative for easy bleeding Endo Endo: Negative for fatigue Cardiology Exam Const Appearance: cooperative, no acute distress and well developed Orientation: alert, awake and oriented x3 Head Head: normocephalic and atraumatic Mouth: moist mucous membranes Eyes General: appearance normal, both eyes and all related structures Conjunctivae: conjunctivae normal Pupils: PERRL EOM: EOM intact bilaterally Neck Neck: normal visual inspection, n o lymphadenopathy and no JVD Carotids: Negative bruit Neck Mass: Negative Neck mass Chest Chest inspection: normal inspection of the chest and symmetric chest movement Auscultation: Bilateral: Clear to Auscultation Cardio Palpation: normal PMI Rate: regular rate Rhythm: regular rhythm Heart sounds: S1 normal and S2 normal; negative rub, gallop or murmur GI GI: normal to inspection, soft, no hepatosple nomegaly and bowel sounds present; negative tender Neuro General: alert, awake, oriented x3, CN's II-XI intact bilaterally and moves all extremities Extremities Pulses: Normal: Right Posterior Tibial Pu lse, Left Posterior Tibial Pulse, Right Radial Pulse, Left Radial Pulse Lower Extremity Edema: None: Bilateral Psych Psychological: normal affect Supplemental Info Echocardiogram in 2017 demonstrates an ejection fraction of 45%, mitral valve doming/tachycardia, sticking, anterior leaflet restriction of the mitral valve, mean transmitral valve gradient 4 mmHg. When compared to previous no significant change. Assessment AND Plan 1. Benign essential HTN I10 Plan Blood pressure is well controlled on current medications, we do not recommend any changes at this time. 2. Paroxysmal atrial fibrillation I48.0 Plan Patient has not had any symptomatic recurrence. She will continue on her low-dose amiodarone. She also continue with her rate limiting medication. She is anticoagulated with a therapeutic IN R goal of 2-3. 3. H/O mitral valve repair Z98.890 03/22/2000 [facility] for severe mitral regurgitation Plan Patient will continue with antibiotic prophylaxis. She will continue to be monitored by history, ex am and echocardiograms as deemed appropriate. Orders Orders: 4. Dilated cardiomyopathy I42.0 Plan With patient's concerns over her worsening shortness of breath would like to obtain a Orders Orders: 5 . Pure hypercholesterolemia E78.00; E78.0 Plan Recent lipid profile demonstrates total cholesterol 164, HDL 68, LDL 79. Will continue with current medical management. Plan Detail Other Orders Orders: A dditional Comments Thank you for allowing us to participate in patient's plan of care, if you have any questions please do not hesitate to call. This note was generated using a voice recognition syst em and there may be incorrect words, spelling or punctuation errors that were not noted when reviewing the office note prior to saving. 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) Coding Level of Care Code Off vis,est,l evel 4 Diagnoses Benign essential HTN I10 Paroxysmal atrial fibrillation I48.0 H/O mitral valve repair Z98.890 Dilated cardiomyopathy I42.0 Pure hypercholesterolemia E78.00; E78.0 Hyperlipidemia type: pure hypercholesterolemia Coding Level of Care Code Off vis,est,level 4 Diagnoses Benign essential HTN I10 Paroxysmal atrial fibrillation I48.0 H/O mitral valve repair Z98.890 Dilated cardiomyopathy I42.0 Pure hypercholesterolemia E78.00; E78.0 Hyperlipidemia type: pure hypercholesterolemia 01/28/18 1613 <Electronically signed by Jennifer ZAMARRIPA> Date Jennifer ZAMARRIPA Cosigner Signature: Date (if applicable) CC: Sarai Bro NP 27-Jan-2018 Downtime Report Result: Comments: See Note; NOTES: [facility] Medical Records Department [address] [place] [address] Downtime Report MR#: [id number] Acct: [id number] Name: VALERIE CRAIN Rep #: [id number] : 1940 77 From: Anuj Webster PCP: Sarai Bro NP Status: REG RCR This patient was seen during an EMR downtime January 10, 2018 - January 17, 2018. This patient may have a combination of pa per and electronic documentation or all paper documentation. All documentation is viewable within the e-chart portion of [employer] for each patient visit. 09-Nov-2017 Dexa Bone Density Study Result: Comments: See Note; NOTES: [facility] Imaging Services [address] [place] [address] Dexa Bone Density Study MR#: [id number] Acct: [id number] Name: VALERIE CRAIN Rep #: [id number] : 1940 F 77 From: Henry Jones MD PCP: Sarai Bro NP Status: REG CLI Study: Dexa Bone Density Study Date of Exam: 11/09/17 Exam# [id number] Ordering Dr: Sarai Bro STUDY: DUAL E NERGY X-RAY ABSORPTIOMETRY / DXA REASON FOR EXAM: Female, 77 years old. The patient is postmenopausal. Loss of height of 2 inches. TECHNIQUE: Bone Mineral Density (BMD) measurements of lumbar spine an d bilateral hips were obtained. COMPARISON: Comparison is made with prior study dated March 19, 2015. FINDINGS: Lumbar Spine (L1-L4): g/cm2 (1.264) / T-score (0.7 ) / Z-score (2.5) Findings are suggestive of normal bone density with a low fracture risk. Left Femur Total: g/cm2 (0.937) / T-score (-0.6) / Z-score (1.4) Left Femoral Neck: g/cm2 (0.858) / T-score (- 1.3) / Z-score (0.8) Right Femur Total: g/cm2 (0.884) / T-score (-1.0) / Z-score (0.9) Right Femoral Neck: g/cm2 (1.007) / T-score (-0.2) / Z-score (1.8) The T-Scores on the most recent prior examinati on were: Lumbar Spine (L1-L4): There has been improvement of bone density since the previous examination. Left Femur Total: which represents a worsening of 3.7%. Right Femur Total: which represents a worsening of 2.9%. BD/Dexa Bone Density Study IMPRESSION: The patient is considered osteopenic as outlined below according to World [employer] ation (WHO) criteria with a moderate fracture risk. There has been worsening of bone density since the previous examination. Reference Information: The T-score is t he number of standard deviations above or below the standard which is normal for young adults at their peak bone mineral density. The World Health Organization (WHO) interprets the T-scores as follows: Above -1 Normal bone density Between -1 and -2.5 Osteopenia Equal to / or below -2.5 Osteoporosis As a practical clinical guideline, osteopenia may be graded as follows: Mild -1 through -1.5 Moderate -1.6 through -2.0 Severe -2.1 through -2.4 The Z-score is the number of standard deviations above or below age-matched controls. A Z-score of less than -1.5 would be considered abnormal. References: 1 . NIH Osteoporosis and Related Bone Diseases http://www.osteo.org 2. International Society for Clinical Densitometry http://www.iscd.org 3. National Osteoporosis Foundation http://www.nof.org Harper muñoz Signed: Henry Jones MD at 13:40 EDT Tel [phone], Service support , CC: Sarai Bro NP Tile Grader: Signed 27-Jul-2017 Cardiology Visit Report Result: Comments: See Note; NOTES: [facility] [address] [place] [address] OFFICE VISIT Date of Service: 07/27/17 MR#: [id number] Acct: [id number] Name: SEAN CRAIN #: [id number] : 1940 Provider: Amilcar Paz MD Age/Sex: 77/F Location: [facility] Status: Signed HPI 6 M FU (pt asked to be seen sooner than Aug): Chief Complaint: Follow-up visit With complaint s of bleeding Details: SEAN CRAIN, is a 77 F who presents to the office today for a cardiovascular follow-up visit. She is a lady with a history of mitral valve disorder status post mitral valve repair in 1999. She also has mild left ventricular systolic dysfunction and paroxysmal atrial fibrillation. She returns for follow-up visit and her major complaint at this time is related to excessive easy bl eeding. She has had no dizziness or diaphoresis no near syncope or syncope she has been compliant with her medications. She has not had any claudication. She would want us to further evaluate why she is having such is a bleeding. Her physical exam today demonstrates clear lung latif regular rate and rhythm and no pedal edema. Intake Vital Signs07/27/17 Height 5 ft 4 in 07/27/17 Weight: 179 lb Body Mass Index (BMI) 30.7 07/27/17 Blood Pressure 120/60 Intake Visit Reasons: 6 M FU (pt asked to be seen sooner than Aug) Is patient in pain?: No Allergies No Known Allergies Allergy (Verified 01/11/15 12:06) Medications Calcium (Elemental) [Caltrate-600] 600 mg PO DAILY@0800 01/11/15 [History Confirmed 07/26/17] Carvedilol [Coreg] 12.5 mg PO BID 01/11/15 [History Confirmed 07/26/17] Chol ecalciferol (VIT D3) [Vitamin D] 2,000 unit PO DAILY 01/11/15 [History Confirmed 07/26/17] Cyanocobalamin [Vitamin B12] 1,000 mcg PO DAILY@0800 01/11/15 [History Confirmed 07/26/17] Fluticasone/Salmeter ol [Advair 100/50 Diskus] 1 puff INHALATION BID 01/11/15 [History Confirmed 07/26/17] Furosemide [Lasix] 40 mg PO DAILY 01/11/15 [History Confirmed 07/26/17] Levothyroxine Sodium [Levoxyl] 25 mcg PO BENIGNO LY 01/11/15 [History Confirmed 07/26/17] Lisinopril [Zestril] 40 mg PO DAILY 01/11/15 [History Confirmed 07/26/17] Simvastatin [Zocor] 20 mg PO QHS 01/11/15 [History Confirmed 07/26/17] amiodarone 200 m g tablet 100 mg PO .COMPLEX 07/26/17 [History Confirmed 07/26/17] warfarin 2 mg tablet 2 mg PO .COMPLEX 07/26/17 [History Confirmed 07/26/17] glucosamine sulfate 500 mg tablet 500 mg PO BID 07/27/17 [Hi story Confirmed 07/27/17] Ejection fraction %: 40 to 44 [facility] Medical History Dilated cardiomyopathy (Chronic) Long-term use of high-risk medication (Chronic ) History of mitral valve disorder (Chronic) Paroxysmal atrial fibrillation (Chronic) skilled nursing (current) use of anticoagulants (Chronic) Benign essential HTN (Chronic) Dyslipidemia (Chronic) mitral maria m vuplasty (Chronic) Surgical History H/O mitral valve repair (Chronic) Family History Father , age 48 from [place] CAD (coronary artery disease) Sudden cardiac Myocardial infarction Mother , age 94, had CABG at age 85 CAD (coronary artery disease) Social History Smoking Status: Never sm oker ROS Const Const: Positive for other (Concerned that even though INR 2.3, she has been bleeding very easily); negative for body ache, fever(s), chills, night sweats, daytime sleepiness, difficu lty sleeping, weight gain, weight loss, increased appetite, poor appetite, anorexia, frequent falls, headache(s), weakness, fatigue or excessive sweating Eyes Eyes: Negative for blurry vision or double vision ENT ENT: Negative for balance problems, Negative for dizziness, Negative for headache(s) Cardio Chest Pain: No Palpitations: Negative for Yes or No Edema: None Muscle aches with walking: None Res p Respiratory: Negative for SOB with activity, SOB at rest, SOB orthopnea\SOB lying down, Coughing up blood/hemoptysis, chest congestion, pain on inspiration, snoring, stridor, wheezing, crackles, parox ysmal nocturnal dyspnea or other GI GI: Negative nausea, vomiting, heartburn, constipation, belching, bloating, cramping, vomiting blood/hematemesis, bright, red blood in stools, black,tarry stools, loo se stools, Difficulty Swallowing or other Musc Musc: Negative for muscle aches/ myalgia, muscle weakness, joint pain or balance problems Neuro Neuro: Negative for dizziness, Negative for lightheadedness , Negative for near syncope, Negative for syncope, Negative for orthostatic symptoms, Negative for frequent falls, Negative for headache(s), Negative for weakness, Negative for confusion, Negative for m randa loss, Negative for restless legs, Negative for blurry vision, Negative for double vision, Negative for vertigo, Negative for seizures, Negative for lack of coordination, Negative for other Endo En do: Negative for fatigue, cold intolerance, heat intolerance, excessive sweating, flushing, increased thirst/drinking, increased hunger, hair loss, hair growth or other Cardiology Exam Const Appearanc e: cooperative, healthy appearing, well developed, well groomed and no acute distress Nutritional Appearance: well nourished and average body habitus Orientation: alert, awake and oriented x3 Head Head: normal to inspection, normocephalic and atraumatic Ears: hearing grossly normal bilaterally and external ears normal Nose: external nose normal, nasal mucous membranes and turbinates normal, nares norm al, septum normal, no nasal discharge Face and Sinus: face symmetric Mouth: oral mucosae normal, tongue normal, oropharynx normal and moist mucous membranes Teeth and gingiva: dentition normal Throat: p osterior oropharynx normal, tonsils normal and uvula midline Eyes General: appearance normal, both eyes and all related structures Eyelids: eyelids normal Conjunctivae: conjunctivae normal Pupils: PERRL , normal by confrontation and accommodation normal EOM: EOM intact bilaterally Neck Neck: normal visual inspection, trachea midline and no JVD JVD: +5 Carotids: normal carotid upstroke and bounding puls es Chest Chest inspection: normal inspection of the chest, symmetric chest movement and normal respiratory effort Auscultation: Bilateral: Clear to Auscultation Cardio Palpation: normal PMI Rate: regula r rate Rhythm: regular rhythm Heart sounds: S1 normal, S2 normal and normal, physiologic split S2; negative rub, gallop or murmur GI GI: normal to inspection, soft, no hepatosplenomegaly and bowel sound s present Neuro General: alert, awake, oriented x3, no focal sensory deficit, gait normal and moves all extremities Skin Skin: no rashes or lesions noted Extremities Pulses: Normal: Right Femoral Pulse, Left Femoral Pulse, Right Dorsalis Pedis Pulse, Left Dorsalis Pedis Pulse, Right Posterior Tibial Pulse, Left Posterior Tibial Pulse, Right Radial Pulse, Left Radial Pulse Lower Extremity Edema: None: Bilateral Musculoskel Musculoskeletal: No joint tenderness Psych Psychological: normal affect Assessment AND Plan 1. H/O mitral valve repair Z98.890 03/22/2000 [facility] for severe mitral regurgitation Plan She appears to be doing quite well with regard to the above. Her last echocardiogram performed earlier this year had demonstrated an ejection fraction of 45% with mitral valve doming and hockey stickin g and mild mitral calcification. The transvalvular agent was estimated at 4 mmHg. The plan will be to continue her on the current dose of diuretic and beta- naomi. 2. Paroxysmal atrial fibrillation I4 8.0 Plan She appears to be maintaining sinus rhythm at this time on the current regimen and the plan will be to continue the same. Orders Orders: 3. Benign essential HTN I10 Plan Her blood pressure is under good control on the current medical therapy I would not suggest that we make any adjustments at this particular time. I would like to check her INR today as well as a platelet count to make sure t hat her bleeding is not related to excessive anticoagulation or interaction with her amiodarone. 4. Dilated cardiomyopathy I42.0 Plan She does have a history of mild cardiomyopathy secondary to her nai ral valve disease. This appears to be global she has not had any heart failure symptoms and I would not recommend that we make any changes. 5. Dyslipidemia E78.5 Plan She remains on anticoagulation wit h a medium intensity statin her most recent lipid profile demonstrated a total cholesterol 175, LDL of 85 and HDL of 69. Her thyroid function test was noted to be normal. He tells me that she may need to have some dental work and at this time I do not see any contraindication to discontinuing her Coumadin for 3-5 days if any procedure needs to be performed. Thank you for allowing me to participate i n the care of your patient. Please don't hesitate to call if any issues arise Plan Detail Follow Up 6 Months (mmm) 07/27/17 1503 <Electronically signed by Amilcar Paz MD> Date Amilcar Paz MD Cosigner Signature: Date (if applicable) CC: Sarai Bro MDM SR 17-May-2017 SCREENING MAMM (CAD), BILAT Result: Comments: See Note; NOTES: [facility] Imaging Services [address] [place] [address] SCREENING MAMM (CAD), BILAT MR#: [id number] Acct: [id number] Name: SEAN CRAIN Rep #: [id number] : 1940 F 76 From: Henry Jones MD PCP: Sarai Bro Status: REG CLI Study: SCREENING MAMM (CAD), BILAT Date of Exam: 05/17/17 Exam# [id number] Ordering Dr: Sarai Bro MAMMOGRAPH Y - BILATERAL SCREENING REASON FOR EXAM: Female, 76 years old. Routine annual screening examination. PERTINENT HISTORY: Non-contributory. TECHNIQUE: Digital bilateral breast maurilio (3D mammographic acq uisition) in the CC and MLO projections. 2-D mediolateral oblique (MLO) and craniocaudad (CC) views of both breasts were obtained. CAD: Full Field Digital Mammography with Computer Added Detection was p erformed. COMPARISON: Comparison is made with prior examination dated April 24, 2016 and March 12, 2015. FINDINGS: Breast Composition: There are scattered areas of fibroglandular density. There are no dominant masses or suspicious calcifications. No other significant abnormalities are identified. There has been no significant change since the prior study. __ HPBI/SCREENING MAMM (CAD), BILAT IMPRESSION: Stable bilateral screening mammogram. Yearly follow-up mammogram recommended. (A) ASSESSMENT CATEGORY: BIRADS Category 1: Negative. A letter regarding these results will be sent to the patient by the facility within 30 days. Approximately 10% of breast cancers are not detected by mammography. A normal mammogram should not delay biopsy of a clinically suspicious abnormality. [id number] Electronically Signed: Henry Jones MD at 10:21 EDT Tel [phone], Service support , CC: Sarai Bro Tile Grader: Signed 27-Feb-2017 Carotid Duplex Ultrasound Result: Comments: See Note; NOTES: [facility] Cardiovascular Services [address] [place] [id number] Carotid Duplex Ultrasound 02/26/17 1046 MR#: [id number] Acct: [id number] Name: SEAN ABBEE Rep #: [id number] : 1940 76 From: Malcolm Hill MD Attending Dr: Jennifer Goodwin Status: REG CLI Ordering Dr: Jennifer Goodwin Date: 02/26/17 Location: [facility] Sex: F C Admitte d: Reason For Study: CAROTID STENOSIS Rt. Velocities/BP Lt. Velocities/BP Prox CCA 96.2/22.3 cm/sec. Prox CCA 90.3/24.0 cm/sec. Mid CCA 91.5/23.5 cm/sec. Mid CCA 82.7/21.1 cm/sec. Dist CCA 85.6/21 .1 cm/sec. Dist CCA 77.4/22.9 cm/sec. Prox ICA 81.5/20.5 cm/sec. Prox ICA 79.2/22.3 cm/sec. Mid ICA 85.0/25.8 cm/sec. Mid ICA 85.6/36.1 cm/sec. Dist ICA 141.0/39.3 cm/sec. Dist ICA 136.0/36.1 cm/sec. Rt . ICA/CCA = 141.0/91.5=1.5. Lt. ICA/CCA = 136.0/82.7=1.6. Prox ECA 81.5/9.38 cm/sec. Prox ECA 70.4/12.9 cm/sec. Rt. Vert. 37.7/8.25 cm/sec. Lt. Vert. 57.4/12.2 cm/sec. Right Extracranial There is intim al thickening but no significant atherosclerotic plaque noted in the right common carotid artery. There is homogeneous, smooth atherosclerotic plaque noted in the right internal carotid artery. There is intimal thickening but no significant atherosclerotic plaque noted in the right external carotid artery. Antegrade flow is noted in the right vertebral artery. There is heterogeneous, smooth atheroscle rotic plaque noted in the left bulb. Left Extracranial There is intimal thickening but no significant atherosclerotic plaque noted in the left common carotid artery. There is intimal thickening but no significant atherosclerotic plaque noted in the left internal carotid artery. The left internal carotid artery is very tortuous. There is intimal thickening but no significant atherosclerotic plaque not ed in the left external carotid artery. Antegrade flow is noted in the left vertebral artery. There is heterogeneous, irregular atherosclerotic plaque noted in the left bulb. Procedure Carotid Duplex 9 3880. The exam was diagnostic. Exam performed in department. Interpretation Summary Mild (<50%) stenosis right extracranial internal carotid. Mild (<50%) stenosis left extracranial inte rnal carotid. Flow within the vertebral arteries is antegrade bilaterally. Ordering Physician: Jennifer Russell Referring Physician: Sarai Bro Performed By: Nava Diaz, RDCS, RVT 02/27/17 1103 Date Malcolm Hill MD CC: Sarai Bro; Jennifer Christa Date Dictated: 02/26/17 1046 Date Transcribed: 02/27/17 1103 Tile Grader: Signed 03-Sep-2016 Chest PA and Lateral Result: Comments: See Note; NOTES: [facility] Imaging Services [address] [place] [address] Verdana 4d Chest PA and Lateral MR#: [id number] Acct: [id number] Name: SEAN CRAIN Rep # : [id number] : 1940 F 76 From: Henry Jones MD PCP: Sarai Bro Status: REG CLI Study: Chest PA and Lateral Date of Exam: 09/03/16 Exam# [id number] Ordering Dr: Nahun Vazquez MD STUD Y: X-RAY CHEST REASON FOR EXAM: Female, 76 years old. Dyspnea. History of asthma. TECHNIQUE: PA and lateral views of the chest. COMPARISON: Comparison is made with prior study dated January 07, 2015. ___ FINDINGS: Hyperinflation. The lungs are clear and expanded. There is no demonstrated pleural abnormality. Sternal cerclage wires are present from a prior sternotomy. The patient is status post mitral valve replacement. Normal mediastinum and peng. Normal visualized pulmonary arteries. Normal visualized aortic arch and descending thoracic aorta. There are diffuse de generative changes of the visualized thoracic spine. Mild dextroscoliosis. Normal visualized ribs, clavicles, and shoulders. There is no demonstrated abnormality of the visualized soft tissue structure s of the upper abdomen. RAD/Chest PA and Lateral IMPRESSION: Hyperinflation. No acute abnormality is seen. Electronically Signed: Henry diop MD at 12:41 EST Tel [phone], Service support [phone], CC: Sarai Bro; Nahun Vazquez MD Tile Grader: Signed 28-Aug-2016 Echocardiogram Complete Result: Comments: See Note; NOTES: [facility] Cardiovascular Services [address] [place] [address] Echo Complete 08/28/16 1003 MR#: [id number] Acct: [id number] Name: SEAN CRIAN p #: [id number] : 1940 76 From: Amilcar Paz MD Attending Dr: Jackson CHRISTIANSEN,Amilcar Status: REG CLI Ordering Dr: Amilcar Paz MD Date: 08/28/16 Location: [facility]S Sex: F C Admitted: Reason For Study: AT [facility] Procedure This was a 2D Doppler, Color Flow transthoracic echocardiogram. Exam performed in department. Left Ventricle Normal LV size. Mild to moderate global left ventricular systol ic dysfunction. The estimated ejection fraction is 45 %. There is mild to moderate global hypokinesis of the left ventricle. Right Ventricle Normal RV size. Normal systolic function. Atria The left at rium is mildly enlarged. Normal right atrium. Mitral Valve Mitral valve doming/Hockey Sticking. There is mild to moderate mitral annular calcification. Mild focal mitral valve calcifi cation of the posterior leaflet. Anterior leaflet restriction of the mitral valve. Mild mitral valve stenosis. Mean transmitral valve gradient 4 mmHg. An annuloplasty ring is noted in the mitral positio n. Tricuspid Valve Normal tricuspid valve. Aortic Valve Normal aortic valve. Trisinus/trileaflet aortic valve. Pulmonic Valve Normal pulmonic valve. Great Vessels Normal aortic root. The pulmonary ar radha is normal size. Normal inferior vena cava. Pericardium/Pleural No pericardial effusion. MMode/2D Measurements & Calculations LVIDd: 4.6 cm IVSd: 1.00 cm LVOT diam: 2.0 cm LVIDs: 3.5 cm LV PWd: 1.0 cm LVOT area: 3.0 cm2 RVDd: 2.5 cm FS: 23.4 % Ao root diam: 3.2 cm LAV(MOD-bp): 85.0 ml LA A4 area: 22.6 cm2 LA dimension: 3.7 cm LAV(MOD-bp) Indexed: 46.6 ml/m2 LAV(MOD-sp2): 77.7 ml LAV(MOD- sp4): 79.8 ml RA A4 area: 15.8 cm2 Yoav e Measurements MV dec time: 0.31 sec Doppler Measurements & Calculations MV E max jethro: 152.0 cm/sec Lat Peak E' Jethro: 5.1 cm/sec Med Peak E' Jethro: 10.8 cm/sec MV A max jethro: 125.2 cm/sec E/E' lat: 29.8 E/E' med: 14.0 MV E/A: 1.2 MV V2 max: 157.5 cm/sec MV P1/2t max jethro: 155.1 cm/sec Ao V2 max: 100.9 cm/sec MV max P .9 mmHg MV P1/2t: 93.1 msec Ao max P.1 mmHg MV V2 mean: 92.2 cm/sec MV dec slope: 488.3 cm/sec2 JOSE(V,D): 2.5 cm2 MV mean P.9 mmHg MVA(P1/2t): 2.4 cm2 MV V2 VTI: 59.1 cm LV V1 max: 81.7 cm/sec TR max jethro: 220.3 cm/sec LV V1 max P.7 mmHg TR max P.4 mmHg Interpretation Summary Normal LV size. Mild to m oderate global left ventricular systolic dysfunction. The estimated ejection fraction is 45 %. Mitral valve doming/Hockey Sticking Anterior leaflet restriction of the mitral valve Mean transmitral valve gradient 4 mmHg. Compared to prior study, there is no significant change. Orde ring Physician: Amilcar Paz Referring Physician: Sarai Bro Performed By: Darby Angel RDCS 08/28/16 1225 Date Amilcar Paz MD CC: Sarai Bro; Amilcar Paz MD Date Dictated: 08/28/16 1003 Date Transcribed: 08/28/16 1225 Tile Grader: Signed 24-Apr-2016 Bilat Scrn Digital AND CAD Result: Comments: See Note; NOTES: [facility] Imaging Services [address] [address] Verdana 4d Bilat Scrn Digital AND CAD MR#: [id number] Acct: [id number] Name: SEAN CRAIN Jose Alejandro Rep #: [id number] : 1940 F 75 From: Henry Jones MD PCP: Sarai Bro Status: REG CLI Study: Jero Edwards Digital AND CAD Date of Exam: 04/24/16 Exam# [id number] Ordering Dr: Sarai Bro MAMMOGRAPHY - BILATERAL SCREENING REASON FOR EXAM: Female, 75 years old. Routine annual screening examination. PERTINENT HISTORY: Non-contributory. TECHNIQUE: Digital bilateral breast maurilio (3D mammo graphic acquisition) in the CC and MLO projections. 2-D mediolateral oblique (MLO) and craniocaudad (CC) views of both breasts were obtained. CAD: Full Field Digital Mammography with Computer Added Dete ction was performed. COMPARISON: Comparison is made with prior study dated March 12, 2015 and January 05, 2014. FINDINGS: Breast Composition: There are scattered areas of fibroglandular density. There are no dominant masses or suspicious calcifications. No other significant abnormalities are identified. There has been no significant change since the prior study. ___ BI/Jero Edwards Digital AND CAD IMPRESSION: Stable bilateral screening mammogram. Yearly follow-up mammogram recommended. (A) ASSESSMENT CATEGORY: BIRADS Category 1: Negative. A letter regarding these results will be sent to the patient by the facility within 30 days. Approximately 10% of breast cancers are n ot detected by mammography. A normal mammogram should not delay biopsy of a clinically suspicious abnormality. [id number] Electronically Signed: Henry Jones MD at 10:58 EDT Tel [phone], Service support [phone], CC: Sarai Bro Tile Grader: Signed 04-Mar-2016 PT D/C Summary (1) Result: Comments: See Note; NOTES: [facility] [address] [place] [address] Fax [facility]HABILITATION [facility] DISCHARGE SUMMARY MR#: [id number] Acct: [id number] Name: SEAN CRAIN Rep #: [id number] : 1940 75 From: Giselle NELSON Referring Dr.: Sarai Bro Status: REG RCR Insurance: MEDICARE PART A B AARP HP - PT D/C Summary It has been my pleasure to treat SAEN CRAIN under orders from Sarai Bro, for the diagnosis of L knee pain/ Sciatica for a total of 8 visit(s). D ischarge Date: 03/04/16 Please see the following information for a summary of their discharge status. - Subjective Subjective: Pt reports that her knee is the only thing that bothers her today. So medays her pain is better than others. Pt feel that she has had some improvement and most days her pain is down to a 2/10. Pt will be going to see another vein specialist to see what she can do about leg pain. - Pain L knee pain Pain Intensity (Out of 10): 2 - Objective Objective/Function: Pain is 0-2/10 depending on the day. Knee flex 4/5 bilat, knee ext bilat 4 +/5, hip abd bilat 4-/5, hip ext 4-/5 bilat, hip flex 4/5 bilat - Goals Goal 1:: I HEP Goal Progress: Goal Met Goal 2:: Ambulate with a normal gait pattern Goal Progress: Progressing Goal 3:: Decrease pain 1/10 with gai t and ADL's Goal Progress: Progressing Goal 4:: Increase LE strength by 1/2 muscle grade Goal Progress: Goal Met - Plan Plan: DC PT to [facility] - D/C Information Discharge Comments: DC PT to [facility] as well as [facility] If there are questions or concerns regarding this patient's physical therapy, please feel free to call me at [phone]. Thank you for the referral of this patie nt. Sincerely, Giselle Yan <Electronically signed by Giselle Yan MPT> 03/04/161916 CC: Sarai Bro Signed 04-Feb-2016 Inital Evaluation (1) - PT Result: Comments: See Note; NOTES: [facility] [address] [place] [address] Fax [facility] INITIAL EVALUATION MR#: [id number] Acct: [id number] Name: SEAN CRAIN Rep #: [id number] : 1940 75 From: Giselle Yan MPT Referring Dr.: Sarai Bro Status: REG RCR Insurance: MEDICARE PART A B [facility] Patient's Visit Information SEAN CRAIN is a 75 year old F referred to Physical Therapy by Sarai Bro with a diagnosis of L knee pain/ Sciatica. Date of Evaluation: 02/04/16 Physical Therapist: Giselle Yan - Visit Plan Frequency: 2-3x /Week Duration: 4-6 Weeks - Subjective Subjective: Pt has increased L knee pain. Sometimes it is fine and other times it is unbearable. Pt had a couple veins out of her legs last April and has not been right since. No pain with sitting or sleeping. Only pain with standing and walking. She reports not back pain. She has no N AND T. She goes up and down stairs one at a time with a railing due to pain. Within the last 3 weeks she has started with the knee pain. Took the veins out on the medial side of the leg L. P t wants a cortizone shot in her L knee. She has never had a cortizone shot but believes she wants one. No pain when going from a seated position to a standing position. Prednizone did not help....mayb e for the first 2 days. Normally walks alot but cant because of the knee pain. - Pain L knee pain Pain Intensity (Out of 10): 7 Pain Intensity Range: 10 - Objective L knee flexion 126 degre es and -2 degrees knee ext. R knee flex 130 degrees and 0 degrees knee ext. Tender L medial joint line. LE MMT: Knee flex bilat 4-/5, knee ext bilat 4/5, hip abd bilat 4/5, hip ext 3-/5 bilat, hip flex 4-/5 bilat. L Knee 36.7 cm tib tub, 39.4 infrapat, 43.6 cm supra pat. R knee 36.8 cm tib tub, 38.3 cm infrapat, 43.5 cm infrapat,. Gait: Ambulates with decreased stance time on the L and decreased st ride and heel to toe pattern. Tight HS and gastroc bilat - Goals Goal 1:: I HEP Goal Time Frame: 4-6 Weeks Goal 2:: Ambulate with a normal gait pattern Goal Time Frame: 4-6 Weeks Goal 3:: Decrea se pain 1/10 with gait and ADL's Goal Time Frame: 4-6 Weeks Goal 4:: Increase LE strength by 1/2 muscle grade Goal Time Frame: 4-6 Weeks - Rehabilitation Potential Rehabilitation Potential: Good - Anticipated Interventions Therapeutic Exercise to Include: Strength training, Flexibilty training, Gait and locomotor training For the Purpose of:: To decrease pain, To decrease swelling/inflammat ion, To increase ROM, To improve nutrient delivery to tissue, To improve muscle performance and motor function, To improve ability to perform ADL's, To increase tolerance to activity/condition/positio n, To improve gait and locomotor functions, To increase flexibility/ROM Functional Training to Include: Gait training For the Purpose of:: To improve gait and locomotor functions Thermo therapy (hot pack): Yes Ultrasound (thermal/non thermal): Yes For the Purpose of:: To decrease pain, To decrease swelling/inflammation, To increase ROM, To improve nutrient delivery to tissue Thank you for the opportunity to evaluate your patient. For Medicare and Medicare HMO plans, please review the plan of care and approve it. It will need to be FAXED BACK to us at [phone] for Medicare purposes . Please let me know if there are questions or concerns regarding this plan of care. Physician Signature: Date: <Electronical ly signed by Giselle Yan MPT> 02/04/16 1628 CC: Sarai Bro Signed For Medicare only, by signing this I certify the plan of care. Physicians Signature Date 28-Jan-2016 Knee 4 or More Views Result: Comments: See Note; NOTES: [facility] Imaging Services [address] [place] [address] Verdana 4d Knee 4 or More Views MR#: [id number] Acct: [id number] Name: SEAN DWYER Rep #: [id number] : 1940 F 75 From: Shreyas Beaver MD PCP: Sarai Bro Status: REG CLI Study: Knee 4 or More Views Date of Exam: 01/28/16 Exam# [id number] Ordering Dr: Sarai Bro STUDY: X-RAY - LEFT KNEE REASON FOR EXAM: Female, 75 years old. Pain and swelling. TECHNIQUE: 4 view(s) of the knee. COMPARISON: None. FINDINGS: Normal visualized distal femur. Normal visualized proximal tibia and fibula. Normal proximal tibiofibular articulation. There is mild degenerative arthrosis of the medial femorotibial compartment. Normal l ateral femorotibial compartment. There is mild degenerative arthrosis of the patellofemoral articulation. The soft tissue structures are unremarkable. IMPRESSIO N: No acute abnormality. Mild degenerative changes. Electronically Signed: Shreyas Beaver MD at 19:39 EDT , Service support [phone], ORDER # : [id number] RAD/Knee 4 or More Views IMPRESSION: No acute abnormality. Mild degenerative changes. Electronically Signed: Shreyas Beaver MD at 19:39 EDT , Service sup port [phone], CC: Sarai Bro Tile Grader: Signed 28-Jan-2016 L/S Spine Min 4 Views Result: Comments: See Note; NOTES: [facility] Imaging Services [address] [place] [address] Verdana 4d L/S Spine Min 4 Views MR#: [id number] Acct: [id number] Name: SEAN BERRIOS Rep #: [id number] : 1940 F 75 From: Shreyas Beaver MD PCP: Sarai Bro Status: REG CLI Study: L/S Spine Min 4 Views Date of Exam: 01/28/16 Exam# [id number] Ordering Dr: Shital Bro STUDY: X-RAY - LUMBAR SPINE REASON FOR EXAM: Female, 75 years old. Low back pain. TECHNIQUE: 5 view(s) of the lumbar spine were obtained. COMPARISON: None _ FINDINGS: Normal lumbar lordosis. There is no substantial scoliosis. There is a normal alignment of the vertebrae. There is multilevel endplate spondylosis of the lumbar vertebrae. There is mul ti-level degenerative disc disease with multi-level disc space narrowing. There is no demonstrated fracture. The soft tissue structures are unremarkable. IMPRES PATO: No acute abnormality. Mild to moderate degenerative changes. Electronically Signed: Shreyas Beaver MD at 19:40 EDT , Service support [phone], Fax RAD/L/S Spine Min 4 Views IMPRESSION: No acute abnormality. Mild to moderate degenerative changes. Electronically Signed: Shreyas Beaver MD at 19:40 EDT T el [phone], Service support [phone], CC: Sarai Bro Tile Grader: Signed 19-Mar-2015 Dexa Bone Density Study (HP) Result: Comments: See Note; NOTES: [facility] Imaging Services [address] [place] [address] Bone Density Report MR#: [id number] Acct: [id number] Name: SEAN CRAIN Rep #: [id number] : 1940 F 74 From: Henry Jones MD PCP: Sarai Bro Status: REG CLI Study: Dexa Bone Density Study (HP) Date of Exam: 03/19/15 Exam# [id number] Ordering Dr: Sarai Bro STUD Y: DUAL ENERGY X-RAY ABSORPTIOMETRY / DXA REASON FOR EXAM: Female, 74 years old. Early menopause. Loss of height. TECHNIQUE: Bone Mineral Density (BMD) measurements of lumbar spine and bilateral hi ps were obtained. COMPARISON: Comparison is made with prior study dated March 30, 2007. FINDINGS: Lumbar Spine (L1- L4): g/cm2 (1.246) / T-score (0.6) / Z-scor e (2.3) Findings are suggestive of normal bone density with a low fracture risk. Left Femur Total: g/cm2 (0.973) / T-score (-0.3) / Z-score (1.5) Left Femoral Neck: g/cm2 (0.924) / T-score (-0.8) / Z-score (1.1) Right Femur Total: g/cm2 (0.910) / T-score (-0.8) / Z-score (1.0) Right Femoral Neck: g/cm2 (1.026) / T-score (-0.1) / Z-score (1.9) The T- Scores on the most recent prior examination w ere: Lumbar Spine (L1-L4): There has been improvement of bone density since the previous examination. Left Femur Total: which represents a worsening of 1.5%. IMPRESSION: The patient is considered normal as outlined below according to World Kirill Organization (WHO) criteria with a low fracture risk. There has been improvement of bone density since the pre vious examination. Reference Information: The T-score is the number of standard deviations above or below the standard which is normal for young adults at their peak bone mineral density. The World Health Organization (WHO) interprets the T-scores as follows: Above -1 Normal bone density Between -1 and -2.5 Osteopenia Equal to / or below -2.5 Osteoporosi s As a practical clinical guideline, osteopenia may be graded as follows: Mild -1 through -1.5 Moderate -1.6 through -2.0 Severe -2.1 through -2.4 The Z- score is the number of standard deviations above or below age-matched controls. A Z-score of less than -1.5 would be considered abnormal. References: 1. NIH Osteoporosis and Related Bone Diseases http://www.osteo.org 2. International Socie ty for Clinical Densitometry http://www.iscd.org 3. National Osteoporosis Foundation http://www.nof.org Electronically Signed: Henry Jones MD at 14:35 EDT Tel [phone], Servic e support [phone], CC: Sarai Bro Tile Grader: Signed 12-Mar-2015 Bilat Scrn Digital AND CAD Result: Comments: See Note; NOTES: [facility] Imaging Services [address] [place] [address] Breast Imaging Report MR#: [id number] Acct: [id number] Name: SEAN CRAIN Rep #: [id number] : 1940 F 74 From: Henry Jones MD PCP: Sarai Bro Status: REG CLI Study: Bilat Scrn Digital AND CAD Date of Exam: 03/12/15 Exam# [id number] Ordering Dr: Sarai Bro MAMM OGRAPHY - BILATERAL SCREENING REASON FOR EXAM: Female, 74 years old. Routine annual screening examination. PERTINENT HISTORY: Non-contributory. TECHNIQUE: Digital examination. Mediolateral obliqu e (MLO) and craniocaudad (CC) views of both breasts were obtained. CAD: CAD was performed on this study. COMPARISON: Comparison is made with prior study dated January 05, 2014 and January 04, 2013. FINDINGS: Breast Composition: There are scattered areas of fibroglandular density. There are no dominant masses or suspicious calcifications. No other significant ab normalities are identified. There has been no significant change since the prior study. IMPRESSION: Stable bilateral screening mammogram. Yearly follow-up recomm ended. (A) ASSESSMENT CATEGORY: BIRADS Category 1: Negative. A letter regarding these results will be sent to the patient by the facility within 30 days. Appr oximately 10% of breast cancers are not detected by mammography. A normal mammogram should not delay biopsy of a clinically suspicious abnormality. Electronically Signed: Henry Jones MD 23/03/04 at 9:59 EDT Tel [phone], Service support [phone], CC: Sarai Bro Tile Grader: Signed 16-Jan-2015 Operative Report Result: Comments: See Note; NOTES: [facility] Medical Records Department [address] [place] [address] Operative Report MR#: [id number] Acct: [id number] Name: SEAN CRAIN Rep #: [id number] : 1940 74 From: Amilcar Paz MD PCP: Sarai Bro Status: REG CL DATE OF SERVICE: PROCEDURE: The patient presents for direct current cardioversion. INDICATIONS: Atrial fibrillation, persistent. The patient is status post mitral valve repair. DESCRIPTION OF PROCEDURE: The patient is a 74-year-old lady with a history of mitral valve repair in 2000 and atrial fibril lation. She has been appropriately anticoagulated and was brought to the cardiac catheterization lab in the postabsorptive nonsedated state. She was seen by Dr. Guerra at the critical care division an d was administered 40 mg of intravenous propofol. DC cardioversion pads were applied. 200 joules of cardioversion energy was applied. Biphasic energy with prompt reversal to sinus rhythm. The patient tolerated the procedure well. Post-procedure EKG demonstrates sinus bradycardia with a rate of 51 beats per minute, blood pressure is 133/76. The patient would continue with current medications and be seen in the office in a week. Thank you for allowing me to participate in her care. Amilcar Paz MD T: NTS JOB: [id number] 01/16/15 0901 <Electronically signed by Amilcar Paz MD&amp ;#62; Date Amilcar Paz MD CC: Sarai Bro; Amilcar Paz MD Date Dictated: 01/14/151318 Date Transcribed: 01/14/151318 Tile Grader: Signed 15-Jan-2015 Consultation Result: Comments: See Note; NOTES: [facility] Medical Records Department [address] [place] [address] Consultation MR#: [id number] Acct: [id number] Name: SEAN CRAIN Rep #: [id number] : 1940 74 From: Armando Guerra MD PCP: Sarai Bro Status: REG CLI DATE OF SERVICE: 01/14/2015 DATE OF PROCEDURE: January 14, 2015 PROCEDURE: Conscious sedation for cardioversi on. INDICATION: AFib. Consent per the patient. After confirmation of informed consent, the patient's history was reviewed. The patient states that she had a cardioversion 15 years ago with no prob lems. The patient denies any history of other conscious sedation such as colonoscopy. The patient has had a mitral valve repair, hysterectomy and appendectomy in the past without complications. The p atient reports her last meal was last night at 11 p.m. The patient has had nothing to eat this morning. The patient did take her normal medications. The patient is currently on Eliquis and denies any bleeding complications. The patient also states that she has been per usual health and denies fever, chills and sinus congestion, nausea or vomiting. PHYSICAL EXAMINATION: VITAL SIGNS: Reviewed. The patient was slightly hypertensive at 158/111, heart rate of 55, 99% on 5 L. GENERAL: The patient is a well-appearing female in no apparent distress, speaking in full sentences. HEENT: Nor mocephalic, atraumatic. Mucous membranes are moist and pink. No dentures are noted. Mallampati II. Good mouth movement. NECK: Had neck mobility. No lymphadenopathy is appreciated. CHEST: S1, S2, irre gularly irregular with a systolic ejection murmur noted. No rubs or gallops are appreciated. LUNGS: Clear to auscultation bilaterally with no wheezes, rales or rhonchi. ABDOMEN: Soft, nontender, nond istended. Positive bowel sounds. EXTREMITIES: There is no clubbing, cyanosis or edema. ASA class II. DESCRIPTION OF PROCEDURE: After confirmation of informed consent, the patient was prepped in th e usual fashion. At 1313 hours the patient was given 40 mg of propofol. The patient was able to reach adequate sedation in the next 1-2 minutes. When the patient reached adequate sedation, the patien t was given a 200-joule synchronized cardioversion by Dr. Paz. This resulted in sinus bradycardia. The patient was monitored for an additional 5 minutes and at 1318 hours was left to be recovered in the usual fashion after achieving 80% of her baseline function. COMPLICATIONS: None. RECOMMENDATIONS: Recovered in the usual fashion. ARMANDO GUERRA MD C C: Amilcar Bro T: NTS JOB: [id number] 01/15/15 0643 <Electronically signed by Armando Guerra MD> Date Armando Guerra MD CC: Sarai Bro; Armando Guerra MD; Amilcar Paz MD Date Dictated: 01/14/15 135 Date Transcribed: 01/14/151356 Tile Grader: Signed 07-Jan-2015 Chest PA and Lateral Result: Comments: See Note; NOTES: [facility] Imaging Services [address] [facility] [address] Radiology Report MR#: [id number] Acct: [id number] Name: SEAN CRAIN Rep #: [id number] : 1940 F 74 From: Henry Jones MD PCP: Sarai Bro Status: PRE CLI Study: Chest PA and Lateral Date of Exam: 01/07/15 Exam# [id number] Ordering Dr: Amilcar Paz MD STUDY: X-RA Y CHEST REASON FOR EXAM: Female, 74 years old. Cardiomyopathy. Shortness of breath. TECHNIQUE: PA and lateral views of the chest. COMPARISON: Comparison is made with prior examination dated January 17, 2013. FINDINGS: Hyperinflation. The lungs are clear. There is no demonstrated pleural abnormality. Sternal cerclage wires are present from a prior sterno deya. Mild cardiomegaly. Normal mediastinum and peng. Normal visualized pulmonary arteries. There is atherosclerotic tortuosity of the aortic arch and descending thoracic aorta. There are diffuse d egenerative changes of the visualized thoracic spine. Normal visualized ribs, clavicles, and shoulders. There is no demonstrated abnormality of the visualized soft tissue structures of the upper abd omen. IMPRESSION: Hyperinflation. No acute abnormality is seen. Electronically Signed: Henry Jones MD at 14:28 EDT Tel [phone], Service support [phone], RAD/Chest PA and Lateral IMPRESSION: Hyperinflation. No acute abnormality is seen. Electronically Signed: Henry Jones MD 2014 at 14:28 EDT Tel [phone], Service support [phone], CC: Sarai Bro; Amilcar Paz MD Tile Grader: Signed 24-Dec-2014 Echocardiogram Complete Result: Comments: See Note; NOTES: [facility] Cardiovascular Services [address] [place] [address] Echo Complete 12/24/14 1003 MR#: [id number] Acct: [id number] Name: SEAN CRAIN Rep #: [id number] : 1940 74 From: Amilcar Paz MD Attending Dr: Jennifer Monroe Status: REG CLI Ordering Dr: Jennifer Monroe PA Date: 12/24/14 Location: [facility] Sex: F C Admitted: Pr raji This was a 2D Doppler, Color Flow transthoracic echocardiogram. The exam was diagnostic. Exam performed in department. Left Ventricle Normal LV size. The estimated ejection fraction is 40 % . There is mild to moderate global hypokinesis of the left ventricle. Mitral Valve Rheumatic appearing mitral valve. Mitral valve doming/Hockey Sticking. Anterior leaflet restrict ion of the mitral valve. Peak transmitral valve gradient 7 mmHg. Mean transmitral valve gradient 3 mmHg. Mild-Moderate mitral valve stenosis. An annuloplasty ring is noted in the mitral position. Tricuspid Valve Normal tricuspid valve. Mild (1+) tricuspid valve insufficiency. Aortic Valve Trisinus/trileaflet aortic valve. Trivial aortic valve insufficiency. Pulmonic Valve Normal pulmonic valve. Great Vessels Normal aortic root. The pulmonary artery is normal size. Normal inferior vena cava. Pericardium/Pleural No pericardial effusion. MMode/2D Measurements AND Calculations LVID d: 4.2 cm IVSd: 1.4 cm LVOT diam: 2.0 cm LA dimension: 4.2 cm LVIDs: 3.0 cm LVPWd: 1.0 cm RVDd: 3.4 cm FS: 29.5 % LVOT area: 3.1 cm2 LAV(MOD-bp): 69.4 ml LA A4 area: 23.5 cm2 RA A4 area: 17.2 cm2 LAV(MOD-bp) Indexed: 38.0 ml/m2 LAV(MOD-sp2): 64.4 ml LAV(MOD-sp4): 73.8 ml Doppler Measurements AND Calculation s MV E max jethro: Lat Peak E' Jethro: Med Peak E' Jethro: MV V2 max: 136.4 cm/sec 7.3 cm/sec 6.9 cm/sec 133.2 cm/sec MV A max jethro: 81.0 cm/sec MV max P.1 mmHg MV E/A: 1.7 MV V2 mean: 76.9 cm/sec MV mean P.6 mmHg MV V2 VTI: 26.4 cm MVA(VTI): 1.5 cm2 MV dec time: 0.26 sec Ao V2 max: 87.4 cm/sec LV V1 ma x: 70.9 cm/sec SV(LVOT): 40.3 ml Ao max P.1 mmHg LV V1 max P.0 mmHg JOSE(V,D): 2.5 cm2 LV V1 mean P.0 mmHg LV V1 mean: 47.8 cm/sec LV V1 VTI: 13.0 cm PA V2 max: 57.0 cm/sec E/E' lat: 18.8 E/E' med: 19.6 PA max P.3 mmHg Interpretation Summary Normal LV size. The estimated ejection fraction is 40 %. There is mild to moderate global hypokinesis of the left ventricle. Mitral valve doming/"Hockey Sticking Rheumatic appearing mitral valve. An annuloplasty ring is noted in the mitral position. Mild-Moderate mitral valve stenosis. Mean transmitral valve gradient 3 mmHg. Compared to prior study, there is no significant change. Ordering Physician: Jennifer Monroe Performed By: SANTA Banegas 12/24/14 1359 Date Amilcar Paz MD CC: Sarai Bro; Jennifer Monroe Date Dictated: 12/24/14 1003 Date Transcribed: 12/24/14 1359 Tile Grader: Signed 19-Jul-2014 Hip min 2 Views Result: Comments: See Note; NOTES: [facility] Imaging Services [address] [place] [id number] Radiology Report MR#: [id number] Acct: [id number] Name: SEAN CRAIN Rep #: [id number] : 1940 F 74 From: Henry Jones MD PCP: Sarai Bro Status: REG CLI Study: Hip min 2 Views Date of Exam: 07/19/14 Exam# [id number] Ordering Dr: Sarai Bro STUDY: X-RAY - RIGHT HIP REASON FOR EXAM: Female, 74 years old. Right hip pain. TECHNIQUE: 2 view(s) of the hip. COMPARISON: None. FINDINGS: Normal femoral head, neck, intertro chanteric region and visualized proximal femur. There is osteoarthritic spur formation of the acetabular rim. There is moderate articular joint space narrowing. Normal visualized superior and inferi or pubic rami and ischial tuberosities. Well-defined calcific density is seen in the right hemipelvis most likely representing phleboliths. IMPRESSION: Degene rative changes of the hip. Electronically Signed: Henry Jones MD at 11:38 EST Tel [phone], Service support [phone], RAD/Hip min 2 Views IMPRESSION: Degenerative changes of the hip. Electronically Signed: Henry Jones MD at 11:38 EST Tel [phone], Service support [phone], CC : Sarai Bor Tile Grader: Signed 19-Jul-2014 L/S Spine Min 4 Views Result: Comments: See Note; NOTES: [facility] Imaging Services [address] [place] [address] Radiology Report MR#: [id number] Acct: [id number] Name: SEAN CRAIN Rep #: [id number] : 1940 F 74 From: Henry Jones MD PCP: Sarai Bro Status: REG CLI Study: L/S Spine Min 4 Views Date of Exam: 07/19/14 Exam# [id number] Ordering Dr: Sarai Bro STUDY: X-RAY - LUMBAR SPINE REASON FOR EXAM: Female, 74 years old. Chronic low back pain. TECHNIQUE: 5 view(s) of the lumbar spine were obtained including oblique views. COMPARISON: None FINDINGS: Normal lumbar lordosis. There is no substantial scoliosis. There is a normal alignment of the vertebrae. There is multilevel endplate spondylosis of the lumbar vertebrae. T here is multi-level degenerative disc disease with multi-level disc space narrowing. Facet joint osteoarthritis. Phleboliths are seen in the pelvis. There is evidence of degenerative changes of the right hip joint. IMPRESSION: Degenerative changes of the spine, as detailed above. Electronically Signed: Henry Jones MD at 13:19 EST Tel [phone], Service support [phone], CC: Sarai Bro Tile Grader: Signed 05-Jan-2014 Bilat Scrn Digital & CAD Result: Comments: See Note; NOTES: [facility] Imaging Services [address] [place] [address] Breast Imaging Report MR#: [id number] Acct: [id number] Name: SEAN CRAIN Rep #: [id number] : 1940 F 73 From: Henry Jones MD PCP: Status: [facility] CLI Exam# [id number] Ordering Dr: Sarai Bro MAMMOGRAPHY - BILATERAL SCREENING REASON FOR EXAM: Female, 73 years old. Routine annual screening examination. PERTINENT HISTORY: Non-contributory. TECHNIQUE: Digital examination. Mediolateral oblique (MLO) and craniocaudad (CC) views of both breasts were obtained. CA D: CAD was performed on this study. COMPARISON: Comparison is made with prior study dated January 04, 2013 and April 25, 2010. FINDINGS: The breast compositio n is composed of scattered areas of fibroglandular densities ranging from 25% to 50% of the total breast volume. There are no dominant masses or suspicious calcifications. No other significant abno rmalities are identified. There has been no significant change since the prior study. IMPRESSION: Stable bilateral screening mammogram. Yearly follow-up recommen ded. (A) ASSESSMENT CATEGORY: BIRADS Category 2: Benign finding(s). A letter regarding these results will be sent to the patient by the facility within 30 days. Approximately 10% of breast cancers are not detected by mammography. A normal mammogram should not delay biopsy of a clinically suspicious abnormality. 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 Status: Inactive Tobacco use: Never smoker. Status: Inactive Vital Signs Date Test Result Details [id number]:20 Temperature 99.4 f Comments: Method: Temporal Pulse 79 /min Comments: Pattern: Regular Respiration Rate 17 /min Comments: Pattern: Unlabored O2 SAT 92 % Comments: Room air BP Systolic 158 mm[Hg] Comments: Patient Position: Sitting; Cuff Location: Left Arm; Cuff Size: Standard BP Diastolic 92 mm[Hg] Comments: Patient Position: Sitting; Cuff Location: Left Arm; Cuff Size: Standard Weight 180.375 lb Height 64 in Body Mass Index Calculated 30.96 kg/m2 Body Surface Area Calculated 1.87 m2 [id number]:30 Temperature 97.7 f Comments: Method: Temporal Pulse 62 /min Comments: Pattern: Regular Respiration Rate 16 /min Comments: Pattern: Unlabored O2 SAT 93 % Comments: Room air BP Systolic 132 mm[Hg] Comments: Patient Position: Sitting; Cuff Location: Left Arm; Cuff Size: Standard BP Diastolic 74 mm[Hg] Comments: Patient Position: Sitting; Cuff Location: Left Arm; Cuff Size: Standard Weight 177 lb Height 64 in Body Mass Index Calculated 30.38 kg/m2 Body Surface Area Calculated 1.86 m2 :27 Temperature 97.4 f Pulse 52 /min Comments: Pattern: Regular Respiration Rate 16 /min Comments: Pattern: Unlabored O2 SAT 97 % Comments: Room air BP Systolic 118 mm[Hg] Comments: Patient Position: Sitting; Cuff Location: Left Arm; Cuff Size: Standard BP Diastolic 76 mm[Hg] Comments: Patient Position: Sitting; Cuff Location: Left Arm; Cuff Size: Standard Weight 177 lb Height 64 in Body Mass Index Calculated 30.38 kg/m2 Body Surface Area Calculated 1.86 m2 :41 Temperature 98 f Comments: Method: Temporal Pulse 56 /min Comments: Pattern: Regular Respiration Rate 16 /min Comments: Pattern: Unlabored O2 SAT 89 % Comments: Room air BP Systolic 126 mm[Hg] Comments: Patient Position: Sitting; Cuff Location: Left Arm; Cuff Size: Standard BP Diastolic 74 mm[Hg] Comments: Patient Position: Sitting; Cuff Location: Left Arm; Cuff Size: Standard Weight 176 lb Height 64 in Body Mass Index Calculated 30.21 kg/m2 Body Surface Area Calculated 1.85 m2 :40 Temperature 97 f Pulse 64 /min Comments: Pattern: Regular Respiration Rate 17 /min Comments: Pattern: Unlabored O2 SAT 97 % Comments: Room air BP Systolic 162 mm[Hg] Comments: Patient Position: Sitting; Cuff Location: Left Arm; Cuff Size: Standard BP Diastolic 82 mm[Hg] Comments: Patient Position: Sitting; Cuff Location: Left Arm; Cuff Size: Standard Weight 177 lb Height 64 in Body Mass Index Calculated 30.38 kg/m2 Body Surface Area Calculated 1.86 m2 :53 Temperature 97.2 f Pulse 76 /min Comments: Pattern: Regular Respiration Rate 16 /min Comments: Pattern: Unlabored O2 SAT 97 % Comments: Room air BP Systolic 124 mm[Hg] Comments: Patient Position: Sitting; Cuff Location: Left Arm; Cuff Size: Standard BP Diastolic 78 mm[Hg] Comments: Patient Position: Sitting; Cuff Location: Left Arm; Cuff Size: Standard Weight 177 lb Height 64 in Body Mass Index Calculated 30.38 kg/m2 Body Surface Area Calculated 1.86 m2 :16 Temperature 96.7 f Pulse 62 /min Comments: Pattern: Regular Respiration Rate 18 /min Comments: Pattern: Unlabored O2 SAT 94 % Comments: Room air BP Systolic 122 mm[Hg] Comments: Patient Position: Sitting; Cuff Location: Left Arm; Cuff Size: Standard BP Diastolic 78 mm[Hg] Comments: Patient Position: Sitting; Cuff Location: Left Arm; Cuff Size: Standard Weight 177 lb Height 64 in Body Mass Index Calculated 30.38 kg/m2 Body Surface Area Calculated 1.86 m2 [id number]:20 Temperature 98.2 f Pulse 67 /min Comments: Pattern: Regular Respiration Rate 18 /min Comments: Pattern: Unlabored O2 SAT 94 % Comments: Room air BP Systolic 132 mm[Hg] Comments: Patient Position: Sitting; Cuff Location: Left Arm; Cuff Size: Standard BP Diastolic 78 mm[Hg] Comments: Patient Position: Sitting; Cuff Location: Left Arm; Cuff Size: Standard Weight 177 lb Height 64 in Body Mass Index Calculated 30.38 kg/m2 Body Surface Area Calculated 1.86 m2 :45 Temperature 98.2 f Comments: Method: Temporal Pulse 72 /min Comments: Pattern: Regular Respiration Rate 16 /min Comments: Pattern: Unlabored O2 SAT 98 % Comments: Room air BP Systolic 132 mm[Hg] Comments: Patient Position: Sitting; Cuff Location: Left Arm; Cuff Size: Standard BP Diastolic 74 mm[Hg] Comments: Patient Position: Sitting; Cuff Location: Left Arm; Cuff Size: Standard Weight 177 lb Height 64 in Body Mass Index Calculated 30.38 kg/m2 Body Surface Area Calculated 1.86 m2 :40 Temperature 97.5 f Pulse 58 /min Comments: Pattern: Regular Respiration Rate 16 /min Comments: Pattern: Unlabored O2 SAT 95 % Comments: Room air BP Systolic 132 mm[Hg] Comments: Patient Position: Sitting; Cuff Location: Left Arm; Cuff Size: Standard BP Diastolic 82 mm[Hg] Comments: Patient Position: Sitting; Cuff Location: Left Arm; Cuff Size: Standard Weight 175 lb Height 64 in Body Mass Index Calculated 30.04 kg/m2 Body Surface Area Calculated 1.85 m2 :27 Temperature 97.3 f Pulse 62 /min Comments: Pattern: Regular Respiration Rate 17 /min Comments: Pattern: Unlabored O2 SAT 94 % Comments: Room air BP Systolic 126 mm[Hg] Comments: Patient Position: Sitting; Cuff Location: Left Arm; Cuff Size: Standard BP Diastolic 84 mm[Hg] Comments: Patient Position: Sitting; Cuff Location: Left Arm; Cuff Size: Standard Weight 175.125 lb Height 64 in Body Mass Index Calculated 30.06 kg/m2 Body Surface Area Calculated 1.85 m2 :28 Temperature 95 f Pulse 78 /min Comments: Pattern: Regular Respiration Rate 16 /min Comments: Pattern: Unlabored O2 SAT 95 % Comments: Room air BP Systolic 124 mm[Hg] Comments: Patient Position: Sitting; Cuff Location: Left Arm; Cuff Size: Standard BP Diastolic 82 mm[Hg] Comments: Patient Position: Sitting; Cuff Location: Left Arm; Cuff Size: Standard Weight 174.25 lb Height 64 in Body Mass Index Calculated 29.91 kg/m2 Body Surface Area Calculated 1.84 m2 :08 Temperature 97.6 f Pulse 58 /min Comments: Pattern: Regular Respiration Rate 17 /min Comments: Pattern: Unlabored O2 SAT 97 % Comments: Room air BP Systolic 124 mm[Hg] Comments: Patient Position: Sitting; Cuff Location: Left Arm; Cuff Size: Standard BP Diastolic 82 mm[Hg] Comments: Patient Position: Sitting; Cuff Location: Left Arm; Cuff Size: Standard Weight 174 lb Height 64 in Body Mass Index Calculated 29.87 kg/m2 Body Surface Area Calculated 1.84 m2 :36 Pulse 59 /min Comments: Pattern: Regular Respiration Rate 18 /min Comments: Pattern: Unlabored O2 SAT 94 % Comments: Room air BP Systolic 120 mm[Hg] Comments: Patient Position: Sitting; Cuff Location: Left Arm; Cuff Size: Standard BP Diastolic 80 mm[Hg] Comments: Patient Position: Sitting; Cuff Location: Left Arm; Cuff Size: Standard Weight 169.375 lb Height 64 in Body Mass Index Calculated 29.07 kg/m2 Body Surface Area Calculated 1.82 m2 :57 Temperature 98 f Pulse 60 /min Comments: Pattern: Regular Respiration Rate 16 /min Comments: Pattern: Unlabored O2 SAT 95 % Comments: Room air BP Systolic 114 mm[Hg] Comments: Patient Position: Sitting; Cuff Location: Left Arm; Cuff Size: Standard BP Diastolic 76 mm[Hg] Comments: Patient Position: Sitting; Cuff Location: Left Arm; Cuff Size: Standard Weight 169.375 lb Height 64 in Body Mass Index Calculated 29.07 kg/m2 Body Surface Area Calculated 1.82 m2 :00 Temperature 97.4 f Pulse 58 /min Comments: Pattern: Regular Respiration Rate 17 /min Comments: Pattern: Unlabored O2 SAT 97 % Comments: Room air BP Systolic 122 mm[Hg] Comments: Patient Position: Sitting; Cuff Location: Left Arm; Cuff Size: Standard BP Diastolic 78 mm[Hg] Comments: Patient Position: Sitting; Cuff Location: Left Arm; Cuff Size: Standard Weight 175.25 lb Height 64 in Body Mass Index Calculated 30.08 kg/m2 Body Surface Area Calculated 1.85 m2 :15 Temperature 97.8 f Pulse 74 /min Comments: Pattern: Regular Respiration Rate 18 /min Comments: Pattern: Unlabored O2 SAT 96 % Comments: Room air BP Systolic 114 mm[Hg] Comments: Patient Position: Sitting; Cuff Location: Left Arm; Cuff Size: Standard BP Diastolic 72 mm[Hg] Comments: Patient Position: Sitting; Cuff Location: Left Arm; Cuff Size: Standard Weight 175.25 lb Height 64 in Body Mass Index Calculated 30.08 kg/m2 Body Surface Area Calculated 1.85 m2 :24 Temperature 97.8 f Pulse 55 /min Comments: Pattern: Regular Respiration Rate 17 /min Comments: Pattern: Unlabored O2 SAT 97 % Comments: Room air BP Systolic 120 mm[Hg] Comments: Patient Position: Sitting; Cuff Location: Left Arm; Cuff Size: Standard BP Diastolic 72 mm[Hg] Comments: Patient Position: Sitting; Cuff Location: Left Arm; Cuff Size: Standard Weight 175.25 lb Height 64 in Body Mass Index Calculated 30.08 kg/m2 Body Surface Area Calculated 1.85 m2 :27 Temperature 97.3 f Pulse 68 /min Comments: Pattern: Regular Respiration Rate 16 /min Comments: Pattern: Unlabored O2 SAT 95 % Comments: Room air BP Systolic 136 mm[Hg] Comments: Patient Position: Sitting; Cuff Location: Left Arm; Cuff Size: Standard BP Diastolic 78 mm[Hg] Comments: Patient Position: Sitting; Cuff Location: Left Arm; Cuff Size: Standard Weight 175.25 lb Height 64 in Body Mass Index Calculated 30.08 kg/m2 Body Surface Area Calculated 1.85 m2 2-Oct-70623:30 Temperature 97.6 f Pulse 58 /min Comments: Pattern: Regular Respiration Rate 16 /min Comments: Pattern: Unlabored O2 SAT 96 % Comments: Room air BP Systolic 134 mm[Hg] Comments: Patient Position: Sitting; Cuff Location: Left Arm; Cuff Size: Standard BP Diastolic 80 mm[Hg] Comments: Patient Position: Sitting; Cuff Location: Left Arm; Cuff Size: Standard Weight 176.25 lb Height 64 in Body Mass Index Calculated 30.25 kg/m2 Body Surface Area Calculated 1.85 m2 :15 Temperature 98.9 f Comments: Method: Oral Pulse 60 /min Comments: Pattern: Regular Respiration Rate 15 /min O2 SAT 96 % Comments: Room air BP Systolic 118 mm[Hg] Comments: Patient Position: Sitting; Cuff Location: Left Arm; Cuff Size: Standard BP Diastolic 60 mm[Hg] Comments: Patient Position: Sitting; Cuff Location: Left Arm; Cuff Size: Standard Weight 173.25 lb Height 64 in Body Mass Index Calculated 29.74 kg/m2 Body Surface Area Calculated 1.84 m2 :34 Temperature 99.7 f Comments: Method: Oral Pulse 77 /min Comments: Pattern: Regular Respiration Rate 18 /min O2 SAT 96 % Comments: Room air BP Systolic 140 mm[Hg] Comments: Patient Position: Sitting; Cuff Location: Left Arm; Cuff Size: Standard BP Diastolic 78 mm[Hg] Comments: Patient Position: Sitting; Cuff Location: Left Arm; Cuff Size: Standard Weight 172 lb Height 64 in Body Mass Index Calculated 29.52 kg/m2 Body Surface Area Calculated 1.83 m2 :14 Temperature 98.2 f Comments: Method: Oral Pulse 68 /min Comments: Pattern: Regular Respiration Rate 16 /min O2 SAT 97 % Comments: Room air BP Systolic 140 mm[Hg] Comments: Patient Position: Sitting; Cuff Location: Left Arm; Cuff Size: Standard BP Diastolic 90 mm[Hg] Comments: Patient Position: Sitting; Cuff Location: Left Arm; Cuff Size: Standard Weight 172 lb Height 64 in Body Mass Index Calculated 29.52 kg/m2 Body Surface Area Calculated 1.83 m2 :26 Comments: VaGl- OD- -1 OS- OU- Temperature 98.6 f Comments: Method: Oral Pulse 62 /min Comments: Pattern: Regular Respiration Rate 16 /min O2 SAT 97 % Comments: Room air BP Systolic 140 mm[Hg] Comments: Patient Position: Sitting; Cuff Location: Left Arm; Cuff Size: Standard BP Diastolic 82 mm[Hg] Comments: Patient Position: Sitting; Cuff Location: Left Arm; Cuff Size: Standard :45 Pulse 56 /min Comments: Pattern: Regular Respiration Rate 16 /min Comments: Pattern: Unlabored O2 SAT 96 % Comments: Room air BP Systolic 180 mm[Hg] Comments: Patient Position: Sitting; Cuff Location: Left Arm; Cuff Size: Standard BP Diastolic 80 mm[Hg] Comments: Patient Position: Sitting; Cuff Location: Left Arm; Cuff Size: Standard Weight 172 lb Height 64 in Body Mass Index Calculated 29.52 kg/m2 Body Surface Area Calculated 1.83 m2 :19 Temperature 98 f Comments: Method: Oral Pulse 58 /min Comments: Pattern: Regular Respiration Rate 16 /min O2 SAT 98 % Comments: Room air BP Systolic 132 mm[Hg] Comments: Patient Position: Sitting; Cuff Location: Left Arm; Cuff Size: Standard BP Diastolic 74 mm[Hg] Comments: Patient Position: Sitting; Cuff Location: Left Arm; Cuff Size: Standard Weight 175 lb Height 64 in Body Mass Index Calculated 30.04 kg/m2 Body Surface Area Calculated 1.85 m2 :01 Temperature 98.6 f Comments: Method: Oral Pulse 60 /min Comments: Pattern: Regular Respiration Rate 16 /min O2 SAT 95 % Comments: Room air BP Systolic 146 mm[Hg] Comments: Patient Position: Sitting; Cuff Location: Left Arm; Cuff Size: Standard BP Diastolic 82 mm[Hg] Comments: Patient Position: Sitting; Cuff Location: Left Arm; Cuff Size: Standard Weight 175 lb Height 64 in Body Mass Index Calculated 30.04 kg/m2 Body Surface Area Calculated 1.85 m2 :31 Temperature 98.4 f Comments: Method: Oral Pulse 83 /min Comments: Pattern: Regular Respiration Rate 16 /min Comments: Pattern: Unlabored O2 SAT 97 % Comments: Room air BP Systolic 150 mm[Hg] Comments: Patient Position: Sitting; Cuff Location: Left Arm; Cuff Size: Standard BP Diastolic 82 mm[Hg] Comments: Patient Position: Sitting; Cuff Location: Left Arm; Cuff Size: Standard Weight 175 lb Height 64 in Body Mass Index Calculated 30.04 kg/m2 Body Surface Area Calculated 1.85 m2 :21 Temperature 98.2 f Comments: Method: Temporal Pulse 98 /min Comments: Pattern: Regular Respiration Rate 16 /min Comments: Pattern: Unlabored O2 SAT 97 % Comments: Room air BP Systolic 124 mm[Hg] Comments: Patient Position: Sitting; Cuff Location: Left Arm; Cuff Size: Standard BP Diastolic 70 mm[Hg] Comments: Patient Position: Sitting; Cuff Location: Left Arm; Cuff Size: Standard Weight 175 lb Height 64 in Body Mass Index Calculated 30.04 kg/m2 Body Surface Area Calculated 1.85 m2 [id number]:44 Temperature 98 f Comments: Method: Oral Pulse 54 /min Comments: Pattern: Regular Respiration Rate 18 /min O2 SAT 98 % Comments: Room air BP Systolic 120 mm[Hg] Comments: Patient Position: Sitting; Cuff Location: Left Arm; Cuff Size: Standard BP Diastolic 70 mm[Hg] Comments: Patient Position: Sitting; Cuff Location: Left Arm; Cuff Size: Standard Weight 175 lb Height 64 in Body Mass Index Calculated 30.04 kg/m2 Body Surface Area Calculated 1.85 m2 :51 Temperature 98.8 f Comments: Method: Oral Pulse 52 /min Comments: Pattern: Regular Respiration Rate 18 /min O2 SAT 94 % Comments: Room air BP Systolic 124 mm[Hg] Comments: Patient Position: Sitting; Cuff Location: Left Arm; Cuff Size: Standard BP Diastolic 72 mm[Hg] Comments: Patient Position: Sitting; Cuff Location: Left Arm; Cuff Size: Standard Weight 172.1875 lb Height 64 in Body Mass Index Calculated 29.56 kg/m2 Body Surface Area Calculated 1.84 m2 :15 Temperature 98.8 f Comments: Method: Oral Pulse 60 /min Comments: Pattern: Regular Respiration Rate 18 /min O2 SAT 96 % Comments: Room air BP Systolic 126 mm[Hg] Comments: Patient Position: Sitting; Cuff Location: Left Arm; Cuff Size: Standard BP Diastolic 72 mm[Hg] Comments: Patient Position: Sitting; Cuff Location: Left Arm; Cuff Size: Standard Weight 177.1875 lb Height 64 in Body Mass Index Calculated 30.41 kg/m2 Body Surface Area Calculated 1.86 m2 :48 Temperature 99.2 f Comments: Method: Oral Pulse 62 /min Comments: Pattern: Regular Respiration Rate 18 /min O2 SAT 98 % Comments: Room air BP Systolic 132 mm[Hg] Comments: Patient Position: Sitting; Cuff Location: Left Arm; Cuff Size: Standard BP Diastolic 78 mm[Hg] Comments: Patient Position: Sitting; Cuff Location: Left Arm; Cuff Size: Standard Weight 167.5625 lb Height 64 in Body Mass Index Calculated 28.76 kg/m2 Body Surface Area Calculated 1.81 m2 [id number]-[id number]:30 Temperature 99.2 f Comments: Method: Oral Pulse 56 /min Comments: Pattern: Regular Respiration Rate 18 /min O2 SAT 98 % Comments: Room air BP Systolic 126 mm[Hg] Comments: Patient Position: Sitting; Cuff Location: Left Arm; Cuff Size: Standard BP Diastolic 72 mm[Hg] Comments: Patient Position: Sitting; Cuff Location: Left Arm; Cuff Size: Standard Weight 167.5625 lb Height 64 in Body Mass Index Calculated 28.76 kg/m2 Body Surface Area Calculated 1.81 m2 :14 Temperature 98.9 f Comments: Method: Oral Pulse 56 /min Comments: Pattern: Regular Respiration Rate 16 /min O2 SAT 94 % Comments: Room air BP Systolic 142 mm[Hg] Comments: Patient Position: Sitting; Cuff Location: Left Arm; Cuff Size: Standard BP Diastolic 82 mm[Hg] Comments: Patient Position: Sitting; Cuff Location: Left Arm; Cuff Size: Standard Weight 167.5625 lb Height 64 in Body Mass Index Calculated 28.76 kg/m2 Body Surface Area Calculated 1.81 m2 [id number]-Axt-[id number]:39 Temperature 99 f Comments: Method: Oral Pulse 60 /min Comments: Pattern: Regular Respiration Rate 16 /min BP Systolic 122 mm[Hg] Comments: Patient Position: Sitting; Cuff Location: Left Arm; Cuff Size: Standard BP Diastolic 70 mm[Hg] Comments: Patient Position: Sitting; Cuff Location: Left Arm; Cuff Size: Standard Weight 167.5625 lb Height 64 in Body Mass Index Calculated 28.76 kg/m2 Body Surface Area Calculated 1.81 m2 :37 Temperature 98.2 f Comments: Method: Oral Pulse 60 /min Comments: Pattern: Regular Respiration Rate 16 /min O2 SAT 98 % Comments: Room air BP Systolic 134 mm[Hg] Comments: Patient Position: Sitting; Cuff Location: Left Arm; Cuff Size: Standard BP Diastolic 80 mm[Hg] Comments: Patient Position: Sitting; Cuff Location: Left Arm; Cuff Size: Standard Weight 172.3125 lb Height 64 in Body Mass Index Calculated 29.58 kg/m2 Body Surface Area Calculated 1.84 m2 :09 Temperature 96.5 f Comments: Method: Oral Pulse 60 /min Comments: Pattern: Regular Respiration Rate 16 /min BP Systolic 138 mm[Hg] Comments: Patient Position: Sitting; Cuff Location: Left Arm; Cuff Size: Standard BP Diastolic 78 mm[Hg] Comments: Patient Position: Sitting; Cuff Location: Left Arm; Cuff Size: Standard Weight 168.25 lb Height 64 in Body Mass Index Calculated 28.88 kg/m2 Body Surface Area Calculated 1.82 m2 :34 Temperature 97.3 f Comments: Method: Oral Pulse 64 /min Comments: Pattern: Regular Respiration Rate 16 /min Comments: Pattern: Unlabored BP Systolic 138 mm[Hg] Comments: Patient Position: Sitting; Cuff Location: Left Arm; Cuff Size: Standard BP Diastolic 82 mm[Hg] Comments: Patient Position: Sitting; Cuff Location: Left Arm; Cuff Size: Standard Weight 166.25 lb Height 64 in Body Mass Index Calculated 28.54 kg/m2 Body Surface Area Calculated 1.81 m2 :36 Temperature 96.8 f Comments: Method: Oral Pulse 74 /min Comments: Pattern: Regular Respiration Rate 16 /min Comments: Pattern: Unlabored BP Systolic 144 mm[Hg] Comments: Patient Position: Sitting; Cuff Location: Left Arm; Cuff Size: Standard BP Diastolic 84 mm[Hg] Comments: Patient Position: Sitting; Cuff Location: Left Arm; Cuff Size: Standard Weight 166.25 lb Height 64 in Body Mass Index Calculated 28.54 kg/m2 Body Surface Area Calculated 1.81 m2 :15 Temperature 98 f Comments: Method: Oral Pulse 80 /min Comments: Pattern: Regular BP Systolic 134 mm[Hg] Comments: Patient Position: Supine; Cuff Location: Left Arm; Cuff Size: Standard BP Diastolic 76 mm[Hg] Comments: Patient Position: Supine; Cuff Location: Left Arm; Cuff Size: Standard Weight 166.25 lb Height 64 in Body Mass Index Calculated 28.54 kg/m2 Body Surface Area Calculated 1.81 m2 :48 Temperature 97.4 f Comments: Method: Oral Pulse 70 /min Comments: Pattern: Regular Respiration Rate 16 /min Comments: Pattern: Unlabored BP Systolic 132 mm[Hg] Comments: Patient Position: Sitting; Cuff Location: Left Arm; Cuff Size: Standard BP Diastolic 80 mm[Hg] Comments: Patient Position: Sitting; Cuff Location: Left Arm; Cuff Size: Standard Weight 163.375 lb :23 Temperature 97.1 f Comments: Method: Oral Pulse 66 /min Comments: Pattern: Regular Respiration Rate 16 /min Comments: Pattern: Unlabored BP Systolic 132 mm[Hg] Comments: Patient Position: Sitting; Cuff Location: Left Arm; Cuff Size: Standard BP Diastolic 70 mm[Hg] Comments: Patient Position: Sitting; Cuff Location: Left Arm; Cuff Size: Standard Weight 154.3125 lb :05 Temperature 97.2 f Comments: Method: Oral Pulse 68 /min Comments: Pattern: Regular Respiration Rate 16 /min Comments: Pattern: Unlabored BP Systolic 118 mm[Hg] Comments: Patient Position: Sitting; Cuff Location: Left Arm; Cuff Size: Standard BP Diastolic 70 mm[Hg] Comments: Patient Position: Sitting; Cuff Location: Left Arm; Cuff Size: Standard Weight 163 lb :13 Temperature 97.1 f Comments: Method: Oral Pulse 70 /min Comments: Pattern: Regular Respiration Rate 17 /min Comments: Pattern: Unlabored BP Systolic 138 mm[Hg] Comments: Patient Position: Sitting; Cuff Location: Left Arm; Cuff Size: Standard BP Diastolic 74 mm[Hg] Comments: Patient Position: Sitting; Cuff Location: Left Arm; Cuff Size: Standard Weight 163 lb :54 Pulse 74 /min Comments: Pattern: Regular Respiration Rate 16 /min Comments: Pattern: Unlabored BP Systolic 136 mm[Hg] Comments: Patient Position: Sitting; Cuff Location: Left Arm; Cuff Size: Standard BP Diastolic 82 mm[Hg] Comments: Patient Position: Sitting; Cuff Location: Left Arm; Cuff Size: Standard Weight 163 lb :42 Temperature 97.6 f Comments: Method: Oral Pulse 82 /min Comments: Pattern: Regular Respiration Rate 16 /min Comments: Pattern: Unlabored BP Systolic 108 mm[Hg] Comments: Patient Position: Sitting; Cuff Location: Left Arm; Cuff Size: Standard BP Diastolic 70 mm[Hg] Comments: Patient Position: Sitting; Cuff Location: Left Arm; Cuff Size: Standard :56 Pulse 60 /min Comments: Pattern: Regular Respiration Rate 20 /min Comments: Pattern: Unlabored BP Systolic 122 mm[Hg] Comments: Patient Position: Sitting; Cuff Location: Left Arm; Cuff Size: Large BP Diastolic 80 mm[Hg] Comments: Patient Position: Sitting; Cuff Location: Left Arm; Cuff Size: Large Weight 163 lb :13 Pulse 64 /min Comments: Pattern: Regular Respiration Rate 16 /min Comments: Pattern: Unlabored BP Systolic 118 mm[Hg] Comments: Patient Position: Sitting; Cuff Location: Left Arm; Cuff Size: Standard BP Diastolic 78 mm[Hg] Comments: Patient Position: Sitting; Cuff Location: Left Arm; Cuff Size: Standard Weight 163 lb Height 0 in Head Circumference 0.00 cm :52 Temperature 97.8 f Comments: Method: Oral Pulse 68 /min Comments: Pattern: Regular Respiration Rate 16 /min Comments: Pattern: Unlabored O2 SAT 95 % Comments: Room air BP Systolic 122 mm[Hg] Comments: Patient Position: Sitting; Cuff Location: Left Arm; Cuff Size: Standard BP Diastolic 74 mm[Hg] Comments: Patient Position: Sitting; Cuff Location: Left Arm; Cuff Size: Standard Weight 0 lb Height 0 in Head Circumference 0.00 cm :20 Temperature 98.2 f Comments: Method: Oral Pulse 72 /min Comments: Pattern: Regular Respiration Rate 19 /min Comments: Pattern: Unlabored BP Systolic 132 mm[Hg] Comments: Patient Position: Sitting; Cuff Location: Left Arm; Cuff Size: Standard BP Diastolic 70 mm[Hg] Comments: Patient Position: Sitting; Cuff Location: Left Arm; Cuff Size: Standard Weight 162.1875 lb Height 64 in Body Mass Index Calculated 27.84 kg/m2 Body Surface Area Calculated 1.79 m2 Head Circumference 0.00 cm :40 Temperature 98 f Comments: Method: Oral Pulse 60 /min Comments: Pattern: Regular Respiration Rate 18 /min Comments: Pattern: Unlabored BP Systolic 124 mm[Hg] Comments: Patient Position: Sitting; Cuff Location: Left Arm; Cuff Size: Standard BP Diastolic 74 mm[Hg] Comments: Patient Position: Sitting; Cuff Location: Left Arm; Cuff Size: Standard Weight 162.1875 lb Height 64 in Body Mass Index Calculated 27.84 kg/m2 Body Surface Area Calculated 1.79 m2 Head Circumference 0.00 cm :44 Temperature 98.2 f Comments: Method: Oral Pulse 70 /min Comments: Pattern: Regular Respiration Rate 18 /min Comments: Pattern: Unlabored BP Systolic 126 mm[Hg] Comments: Patient Position: Sitting; Cuff Location: Left Arm; Cuff Size: Standard BP Diastolic 80 mm[Hg] Comments: Patient Position: Sitting; Cuff Location: Left Arm; Cuff Size: Standard Weight 155 lb Height 0 in Head Circumference 0.00 cm :30 Temperature 98 f Comments: Method: Oral Pulse 60 /min Comments: Pattern: Regular Respiration Rate 16 /min Comments: Pattern: Unlabored BP Systolic 118 mm[Hg] Comments: Patient Position: Sitting; Cuff Location: Right Arm; Cuff Size: Standard BP Diastolic 78 mm[Hg] Comments: Patient Position: Sitting; Cuff Location: Right Arm; Cuff Size: Standard Weight 154 lb Height 65 in Body Mass Index Calculated 25.63 kg/m2 Body Surface Area Calculated 1.77 m2 Head Circumference 0.00 cm :53 Temperature 98.3 f Comments: Method: Oral Pulse 64 /min Comments: Pattern: Regular Respiration Rate 20 /min Comments: Pattern: Unlabored BP Systolic 144 mm[Hg] Comments: Patient Position: Sitting; Cuff Location: Left Arm; Cuff Size: Standard BP Diastolic 90 mm[Hg] Comments: Patient Position: Sitting; Cuff Location: Left Arm; Cuff Size: Standard Weight 154 lb Height 65 in Body Mass Index Calculated 25.63 kg/m2 Body Surface Area Calculated 1.77 m2 Head Circumference 0.00 cm :47 Temperature 97.7 f Comments: Method: Oral Pulse 68 /min Comments: Pattern: Regular Respiration Rate 20 /min Comments: Pattern: Unlabored BP Systolic 120 mm[Hg] Comments: Patient Position: Sitting; Cuff Location: Left Arm; Cuff Size: Standard BP Diastolic 74 mm[Hg] Comments: Patient Position: Sitting; Cuff Location: Left Arm; Cuff Size: Standard Weight 154 lb Height 0 in Head Circumference 0.00 cm :53 BP Systolic 130 mm[Hg] Comments: Patient Position: Sitting; Cuff Location: Left Arm; Cuff Size: Standard BP Diastolic 70 mm[Hg] Comments: Patient Position: Sitting; Cuff Location: Left Arm; Cuff Size: Standard Weight 161.25 lb Height 65 in Body Mass Index Calculated 26.83 kg/m2 Body Surface Area Calculated 1.81 m2 Head Circumference 0.00 cm :18 Temperature 98 f Comments: Method: Oral Pulse 70 /min Comments: Pattern: Regular Respiration Rate 16 /min Comments: Pattern: Undefined BP Systolic 132 mm[Hg] Comments: Patient Position: Sitting; Cuff Location: Undefined; Cuff Size: Undefined BP Diastolic 68 mm[Hg] Comments: Patient Position: Sitting; Cuff Location: Undefined; Cuff Size: Undefined Weight 0 lb Height 0 in Head Circumference 0.00 cm Results Date Description Value Details :18 Prothrombin Time w/INR Comments: [facility] [address] [place], [place], [phone] INR 2.7 (Normal) PROTIME 28.4 s (Abnormal) Range: 11.7-14.9 :14 Prothrombin Time w/INR Comments: [facility] [address] [place], [place], [phone] INR 2.2 (Normal) PROTIME 24.6 s (Abnormal) Range: 11.7-14.9 :18 Prothrombin Time w/INR Comments: [facility] [address] [place], [address] INR 2.2 (Normal) PROTIME 24.3 s (Abnormal) Range: 11.7-14.9 :26 Prothrombin Time w/INR Comments: [facility] [address] [place], [address] INR 2.2 (Normal) PROTIME 24.6 s (Abnormal) Range: 11.7-14.9 :13 Prothrombin Time w/INR Comments: [facility] [address] [place], [address] INR 2.3 (Normal) PROTIME 25.7 s (Abnormal) Range: 11.7-14.9 :58 Prothrombin Time w/INR Comments: [facility] [address] [place], [place], [phone]([phone] INR 2.0 (Normal) PROTIME 22.8 s (Abnormal) Range: 11.7-14.9 :45 CBC W/Diff, Automated Comments: [facility] [address] [place], [address] ; another Absolute Lymph 2.13 {X10_3/ul} (Normal) Range: 0.83-4.51 Absolute Neut 2.7 {X10_3/uL} (Normal) Range: 2.0-7.7 IM GRAN % 0.200 % (Normal) Range: 0.0-0.9 Comments: IG% - Immature Granulocytes (promyelocytes, myelocytes andmetamyelocytes) > 1% indicates that a LEFT SHIFT is Present. BASO% 0.4 % (Normal) Range: 0-1 EO% 3.4 % (Normal) Range: 0-5 MONO% 9.7 % (Normal) Range: 0-10 LY% 38.2 % (Normal) Range: 19-41 NEUT% 48.1 % (Normal) Range: 47-70 MPV 11.1 fL (Normal) Range: 6.2-12.0 PLT 232 K/mm3 (Normal) Range: 150-450 RDW SD 49.6 fL (Abnormal) Range: 35.1-43.9 RDW CV 14.1 % (Normal) Range: 11.6-14.6 MCHC 31.1 {g/gl} (Abnormal) Range: 32-36 MCH 29.7 pg (Normal) Range: 27.0-32.0 MCV 95.4 fL (Normal) Range: 81-99 HCT 41.8 % (Normal) Range: 37-47 HGB 13.0 g/dL (Normal) Range: 12.0-15.0 RBC 4.38 {M/mm3} (Normal) Range: 4.2-5.4 WBC 5.6 K/mm3 (Normal) Range: 4.4-11.0 :45 Comprehensive Metabolic Profil Comments: [facility] [address] [place], [address] ; Dr Jackson GAP 8 (Normal) Range: 5-15 CO2 28.0 mmol/L (Normal) Range: 21.0-32.0 CL 107 mmol/L (Normal) Range: 98-107 K 4.6 mmol/L (Normal) Range: 3.5-5.1 NA 143 mmol/L (Normal) Range: 136-145 T BILI 0.60 mg/dL (Normal) Range: 0.20-1.00 ALT 23 U/L (Normal) Range: 13-56 ALK P 73 U/L (Normal) Range: 45-117 AST 22 U/L (Normal) Range: 15-37 CA 8.5 mg/dL (Normal) Range: 8.5-10.1 A/G 1.1 {RATIO} (Normal) Range: 0.9-2.4 GLOB 3.3 g/dL (Normal) Range: 2.2-4.2 ALB 3.7 g/dL (Normal) Range: 3.2-5.0 T PROT 7.0 g/dL (Normal) Range: 6.4-8.2 BUN/CRE 26.7 {RATIO} (Abnormal) Range: 10-20 EST GFR - AA 65 mL/min (Normal) Comments: GFR Calc EST GFR 54 mL/min (Abnormal) Comments: Non- GFR Calc CREAT,SERUM 1.05 mg/dL (Abnormal) Range: 0.55-1.02 Comments: The validity of the calculated GFR AND GFRAA in patients over70 years has not been determined. Clinical correlation isessential. BUN 28 mg/dL (Abnormal) Range: 7-18 GLU 86 mg/dL (Normal) Range: 74-106 Comments: Please note revised GLUCOSE reference range hyovlrurk38/02/2018. 58-Ybf-59870:45 Lipid Profile Comments: [facility] [address] [place], [address] VLDL 17 mg/dL (Normal) Range: 5-40 LDL 79 mg/dL (Normal) Range: 0-130 HDL 68 mg/dL (Normal) Comments: The drugs N-Acetylcysteine and Metamizole may falselydepress this assay. Reference Range HDL <40 mg/dL Low HDL Cholesterol HDL >or= 60 mg/dL High HDL Cholesterol TRIG 85 mg/dL (Normal) Comments: The drugs N-Acetylcysteine and Metamizole may falselydepress this assay.Serum Triglycerides Reference Interval Normal <150 mg/dL Borderline high 150 - 199 mg/dL High 200 - 499 mg/dL Very High > or = 500 mg/dL CHOL 164 mg/dL (Normal) Comments: <200 mg/dL Desirable 200-240 mg/dL Borderline >240 mg/dL High Risk 15-Ucq-53729:45 Microalb:Creat Ratio,Random UR Comments: [facility] [address] [place], [place], [phone] MALB:CREAT 8.4 {mg/g_CRE} (Normal) MICROALBUMIN,UR 13.5 mg/L (Normal) UR CREAT 160.00 mg/dL (Normal) 75-Nae-88373:45 Prothrombin Time w/INR Comments: [facility] [address] [place], [address] INR 1.9 (Normal) PROTIME 21.5 s (Abnormal) Range: 11.7-14.9 Comments: ADDENDA: cardio :45 Thyroid Stim Hormone (TSH) Comments: [facility] [address] [place], [address] TSH 2.92 {uIU/mL} (Normal) Range: 0.358-3.74 35-Znp-88272:45 Urinalysis, Routine (Dipstick) Comments: How was Urine Obtained? [facility] [address] [place], [place], [phone] ; other doc LEUK ESTERASE 100 /ul (Abnormal) OCCULT BLOOD-UR 50 /ul (Abnormal) NITRITE UR Negative (Normal) UROBILI Normal mg/dL (Normal) PROT DIPSTX Negative mg/dL (Normal) pH UR 6.0 (Normal) Range: 5.0 - 8.0 SP.GR. DIPSTX 1.020 (Normal) Range: 1.002-1.030 KETONE UR Negative mg/dL (Normal) BILIRUBIN URINE Negative mg/dL (Normal) GLUCOSE, UR Normal mg/dL (Normal) CLARITY Cloudy (Normal) COLOR Yellow (Normal) 90-Tzf-026089:31 Prothrombin Time w/INR Comments: [facility] [address] [place], [place], [phone] INR 2.1 (Normal) PROTIME 23.3 s (Abnormal) Range: 11.7-14.9 1-Mjd-105122:20 Prothrombin Time w/INR Comments: [facility] [address] [place], [phone] INR 2.2 (Normal) Comments: ADDENDA: managed by cardio PROTIME 24.1 s (Abnormal) Range: 11.7-14.9 08-Kpo-976073:40 Prothrombin Time w/INR Comments: [facility] [address] [place], [phone] ; managed by cardio INR 2.0 (Normal) PROTIME 22.9 s (Abnormal) Range: 11.7-14.9 24-Thc-434817:13 Prothrombin Time w/INR Comments: [facility] [address] [place], [place], [phone] INR 1.6 (Normal) PROTIME 19.5 s (Abnormal) Range: 11.7-14.9 14-Hvn-578413:28 Prothrombin Time w/INR Comments: [facility] [address] [place], [place], [phone] ; cardio INR 1.8 (Normal) PROTIME 19.8 s (Abnormal) Range: 11.7-14.9 8-Rxx-673076:53 Prothrombin Time w/INR Comments: [facility] [address] [place], [place], [phone] INR 2.4 (Normal) PROTIME 24.8 s (Abnormal) Range: 11.7-14.9 3-Wno-317000:26 Prothrombin Time w/INR Comments: [facility] [address] [place], [address] INR 1.9 (Normal) PROTIME 21.2 s (Abnormal) Range: 11.7-14.9 00-Euq-[id number]:42 Rapid Flu (90847 x 2) Influenza A Ag POS B (Normal) 15-Sxf-522664:04 Prothrombin Time w/INR Comments: [place] [address] [place], [place], [phone] ; cardio manages INR 1.4 (Normal) PROTIME 16.5 s (Abnormal) Range: 11.7-14.9 86-Fxb-417374:28 Prothrombin Time w/INR Comments: [facility] [address] [place], [place], [phone] INR 1.2 (Normal) PROTIME 14.3 s (Normal) Range: 11.7-14.9 1-Dbr-062993:11 Prothrombin Time w/INR Comments: [facility] [address] [place], [place], [phone] INR 2.0 (Normal) PROTIME 21.6 s (Abnormal) Range: 11.7-14.9 87-Aof-116927:18 CBC W/Diff, Automated Comments: [facility] [address] [place], [address] Absolute Lymph 2.38 {X10_3/ul} (Normal) Range: 0.83-4.51 Absolute Neut 4.4 {X10_3/uL} (Normal) Range: 2.0-7.7 IM GRAN % 0.300 % (Normal) Range: 0.0-0.9 Comments: IG% - Immature Granulocytes (promyelocytes, myelocytes andmetamyelocytes) > 1% indicates that a LEFT SHIFT is Present. BASO% 0.4 % (Normal) Range: 0-1 EO% 2.6 % (Normal) Range: 0-5 MONO% 8.9 % (Normal) Range: 0-10 LY% 31.1 % (Normal) Range: 19-41 NEUT% 56.7 % (Normal) Range: 47-70 MPV 11.3 fL (Normal) Range: 6.2-12.0 PLT 209 K/mm3 (Normal) Range: 150-450 RDW SD 47.3 fL (Abnormal) Range: 35.1-43.9 RDW CV 13.8 % (Normal) Range: 11.6-14.6 MCHC 32.4 {g/gl} (Normal) Range: 32-36 MCH 31.3 pg (Normal) Range: 27.0-32.0 MCV 96.8 fL (Normal) Range: 81-99 HCT 38.9 % (Normal) Range: 37-47 HGB 12.6 g/dL (Normal) Range: 12.0-15.0 RBC 4.02 {M/mm3} (Abnormal) Range: 4.2-5.4 WBC 7.7 K/mm3 (Normal) Range: 4.4-11.0 :18 Prothrombin Time w/INR Comments: [facility] [address] [facility] [place], [place], [address] INR 2.1 (Normal) PROTIME 22.8 s (Abnormal) Range: 11.7-14.9 :52 POTASSIUM SERUM (45981) Comments: STAT; Order Date: 07/23/17Order Info: [id number] - KComments: [facility] [address] [facility] [place], [place], [address] K 4.4 mmol/L (Normal) Range: 3.5-5.1 49-Tpp-703214:56 Microscopic Examination Comments: PATIENT NOT FASTINGPERFORMED BY: [employer]6370 [facility] [place] [id number] Bacteria Few (Normal) Mucus Threads Present (Normal) Epithelial Cells (non renal) 0-10 {/hpf} (Normal) Range: 0 - 10 RBC 3-10 {/hpf} (Abnormal) Range: 0 - 2 WBC 0-5 {/hpf} (Normal) Range: 0 - 5 :56 VITAMIN B-12 (CYANOCOBALAMIN) Comments: PATIENT NOT FASTINGPERFORMED BY: BBE [address] [place] [id number] ([id number]) Vitamin B12 451 pg/mL (Normal) Range: 232-1245 Comments: Please note reference interval change :56 TSH (80882) Comments: PATIENT NOT FASTINGPERFORMED BY: [employer] [address] [place] [id number] TSH 2.910 {uIU/mL} (Normal) Range: 0.450-4.500 :56 URINALYSIS, W/ MICRO (36276) Comments: PATIENT NOT FASTINGPERFORMED BY: BBESaint Barnabas Medical CenterLxucjy6467 [facility] [id number] Microscopic Examination See below: (Normal) Comments: Microscopic was indicated and was performed. Nitrite, Urine Negative (Normal) Urobilinogen,Semi-Qn 0.2 mg/dL (Normal) Range: 0.2-1.0 Bilirubin Negative (Normal) Occult Blood 1+ (Abnormal) Ketones Negative (Normal) Glucose Negative (Normal) Protein Negative (Normal) WBC Esterase Trace (Abnormal) Appearance Clear (Normal) Urine-Color Yellow (Normal) pH 7.0 (Normal) Range: 5.0-7.5 Specific Grace 1.017 (Normal) Range: 1.005-1.030 :56 MICROALBUMIN: CREATININE RATIO Comments: PATIENT NOT FASTINGPERFORMED BY: [employer] Dqmyda9570 [facility] [id number] ([id number]) AND (56862) Microalb/Creat Ratio 7.4 {mg/g_creat} (Normal) Range: 0.0-30.0 Microalbumin, Urine 5.0 ug/mL (Normal) Creatinine, Urine 68.0 mg/dL (Normal) :56 METABOLIC PANEL, COMPREHENSIVE Comments: PATIENT NOT FASTINGPERFORMED BY: [employer] InnovationsSaint Barnabas Medical CenterFnskky8383 [facility] [id number] ([id number]) ALT (SGPT) 18 [iU]/L (Normal) Range: 0-32 AST (SGOT) 23 [iU]/L (Normal) Range: 0-40 Alkaline Phosphatase, S 76 [iU]/L (Normal) Range: 39-117 Bilirubin, Total 0.4 mg/dL (Normal) Range: 0.0-1.2 A/G Ratio 1.7 (Normal) Range: 1.2-2.2 Globulin, Total 2.4 g/dL (Normal) Range: 1.5-4.5 Albumin, Serum 4.1 g/dL (Normal) Range: 3.5-4.8 Protein, Total, Serum 6.5 g/dL (Normal) Range: 6.0-8.5 Calcium, Serum 9.4 mg/dL (Normal) Range: 8.7-10.3 Carbon Dioxide, Total 26 mmol/L (Normal) Range: 18-29 Chloride, Serum 103 mmol/L (Normal) Range: 96-106 Potassium, Serum 5.5 mmol/L (Abnormal) Range: 3.5-5.2 Sodium, Serum 144 mmol/L (Normal) Range: 134-144 BUN/Creatinine Ratio 22 (Normal) Range: 12-28 eGFR If Africn Am 61 mL/min/1.73 (Normal) eGFR If NonAfricn Am 53 mL/min/1.73 (Abnormal) Creatinine, Serum 1.02 mg/dL (Abnormal) Range: 0.57-1.00 BUN 22 mg/dL (Normal) Range: 8-27 Glucose, Serum 87 mg/dL (Normal) Range: 65-99 54-Wgs-378433:56 CBC W/AUTO DIFF WBC ([id number]) Comments: PATIENT NOT FASTINGPERFORMED BY: LabCoSaint Barnabas Medical CenterIzawyl8215 [facility] [id number] Immature Grans (Abs) 0.0 {x10E3/uL} (Normal) Range: 0.0-0.1 Immature Granulocytes 0 % (Normal) Baso (Absolute) 0.0 {x10E3/uL} (Normal) Range: 0.0-0.2 Eos (Absolute) 0.2 {x10E3/uL} (Normal) Range: 0.0-0.4 Monocytes(Absolute) 0.6 {x10E3/uL} (Normal) Range: 0.1-0.9 Lymphs (Absolute) 2.4 {x10E3/uL} (Normal) Range: 0.7-3.1 Neutrophils (Absolute) 8.0 {x10E3/uL} (Abnormal) Range: 1.4-7.0 Basos 0 % (Normal) Eos 2 % (Normal) Monocytes 6 % (Normal) Lymphs 21 % (Normal) Neutrophils 71 % (Normal) Platelets 246 {x10E3/uL} (Normal) Range: 150-379 RDW 14.2 % (Normal) Range: 12.3-15.4 MCHC 33.0 g/dL (Normal) Range: 31.5-35.7 MCH 30.3 pg (Normal) Range: 26.6-33.0 MCV 92 fL (Normal) Range: 79-97 Hematocrit 39.7 % (Normal) Range: 34.0-46.6 Hemoglobin 13.1 g/dL (Normal) Range: 11.1-15.9 Comments: Please note reference interval change RBC 4.32 {x10E6/uL} (Normal) Range: 3.77-5.28 WBC 11.3 {x10E3/uL} (Abnormal) Range: 3.4-10.8 :38 Prothrombin Time w/INR Comments: [facility] [address] [place], [address] INR 2.0 (Normal) PROTIME 22.0 s (Abnormal) Range: 11.7-14.9 43-Htg-[id number]:21 Prothrombin Time w/INR Comments: [facility] [address] [place], [address] INR 2.5 (Normal) PROTIME 26.0 s (Abnormal) Range: 11.7-14.9 :12 Lipid Profile Comments: Order Date: 12/04/16Order Info: [id number] - *Hepatic Function PanelOrder Info: [id number] - *Lipid Profile CC PCPComments: 12 hours fasting, may have water.[facility] [address] [place], [address] VLDL 21 mg/dL (Normal) Range: 5-40 LDL 85 mg/dL (Normal) Range: 0-130 HDL 69 mg/dL (Normal) Comments: The drugs N-Acetylcysteine and Metamizole may falselydepress this assay. Reference Range HDL <40 mg/dL Low HDL Cholesterol HDL >or= 60 mg/dL High HDL Cholesterol TRIG 104 mg/dL (Normal) Comments: The drugs N-Acetylcysteine and Metamizole may falselydepress this assay.Serum Triglycerides Reference Interval Normal <150 mg/dL Borderline high 150 - 199 mg/dL High 200 - 499 mg/dL Very High > or = 500 mg/dL CHOL 175 mg/dL (Normal) Comments: <200 mg/dL Desirable 200-240 mg/dL Borderline >240 mg/dL High Risk :12 Liver Profile Comments: Order Date: 12/04/16Order Info: [id number] - *Hepatic Function PanelOrder Info: [id number] - *Lipid Profile CC PCPComments: 12 hours fasting, may have water.[facility] [address] [place], [place], [id number] D BILI 0.09 mg/dL (Normal) Range: 0.00-0.30 T BILI 0.50 mg/dL (Normal) Range: 0.20-1.00 ALT 21 U/L (Normal) Range: 12-78 ALK P 78 U/L (Normal) Range: 45-117 AST 16 U/L (Normal) Range: 15-37 GLOB 3.1 g/dL (Normal) Range: 2.2-4.2 ALB 3.5 g/dL (Normal) Range: 3.4-5.0 Comments: Please note revised Albumin AND Globulin reference rangeeffective 2017. T PROT 6.6 g/dL (Normal) Range: 6.4-8.2 63-Zqu-012945:39 Prothrombin Time w/INR Comments: [facility] [address] [place], [place], [phone] INR 2.4 (Normal) PROTIME 24.9 s (Abnormal) Range: 11.7-14.9 :43 Prothrombin Time w/INR Comments: [facility] [address] [place], [place], [phone] INR 2.2 (Normal) PROTIME 23.9 s (Abnormal) Range: 11.7-14.9 :22 CBC W/Diff, Automated Comments: [facility] [address] [place], [place], [address] ; OV 9/5 Absolute Lymph 2.11 {X10_3/ul} (Normal) Range: 0.83-4.51 Absolute Neut 2.8 {X10_3/uL} (Normal) Range: 2.0-7.7 IM GRAN % 0.200 % (Normal) Range: 0.0-0.9 Comments: IG% - Immature Granulocytes (promyelocytes, myelocytes andmetamyelocytes) > 1% indicates that a LEFT SHIFT is Present. BASO% 0.7 % (Normal) Range: 0-1 EO% 3.9 % (Normal) Range: 0-5 MONO% 9.2 % (Normal) Range: 0-10 LY% 37.2 % (Normal) Range: 19-41 NEUT% 48.8 % (Normal) Range: 47-70 MPV 11.7 fL (Normal) Range: 6.2-12.0 PLT 234 K/mm3 (Normal) Range: 150-450 RDW SD 46.6 fL (Abnormal) Range: 35.1-43.9 RDW CV 13.6 % (Normal) Range: 11.6-14.6 MCHC 31.9 {g/gl} (Abnormal) Range: 32-36 MCH 30.5 pg (Normal) Range: 27.0-32.0 MCV 95.6 fL (Normal) Range: 81-99 HCT 45.1 % (Normal) Range: 37-47 HGB 14.4 g/dL (Normal) Range: 12.0-15.0 RBC 4.72 {M/mm3} (Normal) Range: 4.2-5.4 WBC 5.7 K/mm3 (Normal) Range: 4.4-11.0 09-Apr-20179:22 Comprehensive Metabolic Profil Comments: [facility] [address] [place], [address] GAP 7 (Normal) Range: 5-15 CO2 33.0 mmol/L (Abnormal) Range: 21.0-32.0 CL 103 mmol/L (Normal) Range: 98-107 K 5.1 mmol/L (Normal) Range: 3.5-5.1 NA 143 mmol/L (Normal) Range: 136-145 T BILI 0.40 mg/dL (Normal) Range: 0.20-1.00 ALT 29 U/L (Normal) Range: 12-78 ALK P 90 U/L (Normal) Range: 45-117 AST 21 U/L (Normal) Range: 15-37 CA 9.4 mg/dL (Normal) Range: 8.5-10.1 A/G 1.3 {RATIO} (Normal) Range: 0.9-2.4 GLOB 3.2 g/dL (Normal) Range: 2.3-3.5 ALB 4.3 g/dL (Normal) Range: 3.4-5.0 T PROT 7.5 g/dL (Normal) Range: 6.4-8.2 BUN/CRE 17.8 {RATIO} (Normal) Range: 10-20 EST GFR - AA 57 mL/min (Abnormal) Comments: GFR Calc EST GFR 47 mL/min (Abnormal) Comments: Non- GFR Calc CREAT,SERUM 1.18 mg/dL (Abnormal) Range: 0.55-1.02 Comments: The validity of the calculated GFR AND GFRAA in patients over70 years has not been determined. Clinical correlation isessential. BUN 21 mg/dL (Abnormal) Range: 7-18 GLU 79 mg/dL (Normal) Range: 70-110 :22 Thyroid Stim Hormone (TSH) Comments: [facility] [address] [place], [place], [id number] TSH 3.52 {uIU/mL} (Normal) Range: 0.358-3.74 46-Gzy-354992:37 Prothrombin Time w/INR Comments: [facility] [address] [place], [address] INR 2.1 (Normal) PROTIME 22.4 s (Abnormal) Range: 11.7-14.9 99-Eng-244354:12 Prothrombin Time w/INR Comments: PT ORDER IS AND T4 IS [facility] [address] [place], [place], [phone] INR 2.1 (Normal) PROTIME 23.1 s (Abnormal) Range: 11.7-14.9 92-Pdb-592204:11 T4 Total, Thyroxin Comments: Order Date: 02/19/17Order Info: [id number] - *T4 (Total)Comments: Reason:Order Info: [id number] - *[facility] [address] [place], [place], [phone] T4 THYROXIN 7.2 ug/dL (Normal) Range: 4.8-13.9 02-Pfw-512043:11 Thyroid Stim Hormone (TSH) Comments: Order Date: 02/19/17Order Info: [id number] - *T4 (Total)Comments: Reason:Order Info: [id number] - *[facility] [address] [place], [address] TSH 1.56 {uIU/mL} (Normal) Range: 0.358-3.74 :37 Prothrombin Time w/INR Comments: [facility] [address] [place], [address] INR 1.9 (Normal) PROTIME 21.4 s (Abnormal) Range: 11.7-14.9 0-Vdc-988347:50 Prothrombin Time w/INR Comments: [facility] [address] [place], [address] INR 2.0 (Normal) PROTIME 21.6 s (Abnormal) Range: 11.7-14.9 66-Gtp-072963:37 Prothrombin Time w/INR Comments: [facility] [address] [place], [address] INR 2.5 (Normal) PROTIME 25.6 s (Abnormal) Range: 11.7-14.9 09-Cgc-440531:18 Prothrombin Time w/INR Comments: [facility] [address] [place], [address] INR 2.1 (Normal) PROTIME 22.5 s (Abnormal) Range: 11.7-14.9 62-Sbl-326445:17 Lipid Profile Comments: Order Date: 06/02/16Order Info: [id number] - *Hepatic Function PanelDR.JACKSON BROWNEICHMARIMAR LIPID LIVEROrder Date: 06/02/16Order Info: [id number] - *Lipid Profile CC PCPComments: 12 hours fasting, may have [facility] [address] [place], [address] VLDL 31 mg/dL (Normal) Range: 5-40 LDL 69 mg/dL (Normal) Range: 0-130 HDL 80 mg/dL (Normal) Comments: The drugs N-Acetylcysteine and Metamizole may falsely deressthis assay. Reference Range HDL <40 mg/dL Low HDL Cholesterol HDL >or= 60 mg/dL High HDL Cholesterol TRIG 156 mg/dL (Normal) Comments: The drugs N-Acetylcysteine and Metamizole may falsely deressthis assay.Serum Triglycerides Reference Interval Normal <150 mg/dL Borderline high 150 - 199 mg/dL High 200 - 499 mg/dL Very High > or = 500 mg/dL CHOL 180 mg/dL (Normal) Comments: <200 mg/dL Desirable 200-240 mg/dL Borderline >240 mg/dL High Risk 58-Hvi-530727:17 Liver Profile Comments: Order Date: 06/02/16Order Info: [id number] - *Hepatic Function PanelDR.JACKSON PTMICHELLE LIPID LIVEROrder Date: 06/02/16Order Info: [id number] - *Lipid Profile CC PCPComments: 12 hours fasting, may have m[facility]alaC[facility] [address] [place], [address] D BILI 0.09 mg/dL (Normal) Range: 0.00-0.30 T BILI 0.50 mg/dL (Normal) Range: 0.20-1.00 ALT 28 U/L (Normal) Range: 12-78 ALK P 93 U/L (Normal) Range: 45-117 AST 21 U/L (Normal) Range: 15-37 GLOB 3.4 g/dL (Normal) Range: 2.3-3.5 ALB 4.0 g/dL (Normal) Range: 3.4-5.0 T PROT 7.4 g/dL (Normal) Range: 6.4-8.2 6-Uja-950960:32 Prothrombin Time w/INR Comments: [facility] [address] [place], [address] ; jackson manages INR 1.8 (Normal) PROTIME 20.2 s (Abnormal) Range: 11.7-14.9 51-Wzv-607632:09 Prothrombin Time w/INR Comments: [facility] [address] [place], [address] ; another doc INR 2.1 (Normal) PROTIME 23.1 s (Abnormal) Range: 11.7-14.9 85-Zvk-230657:10 Metabolic Panel, Comprehensive Comments: today; PATIENT NOT FASTINGPERFORMED BY: [facility] [address] [place] [id number] ([id number]) ALT (SGPT) 16 [iU]/L (Normal) Range: 0-32 AST (SGOT) 18 [iU]/L (Normal) Range: 0-40 Alkaline Phosphatase, S 83 [iU]/L (Normal) Range: 39-117 Bilirubin, Total 0.3 mg/dL (Normal) Range: 0.0-1.2 A/G Ratio 1.7 (Normal) Range: 1.1-2.5 Comments: Effective October 19, 2016 the reference interval for A/G Ratio will be changing to: Age Male Female 0 - 7 d ays 1.1 - 2.3 1.1 - 2.3 8 - 30 days 1.2 - 2.8 1.2 - 2.8 1 - 6 months 1.3 - 3.6 1.3 - 3.6 7 months - 5 years 1.5 - 2.6 1.5 - 2.6 > 5 years 1.2 - 2.2 1.2 - 2.2 Globulin, Total 2.6 g/dL (Normal) Range: 1.5-4.5 Albumin, Serum 4.4 g/dL (Normal) Range: 3.5-4.8 Protein, Total, Serum 7.0 g/dL (Normal) Range: 6.0-8.5 Calcium, Serum 9.7 mg/dL (Normal) Range: 8.7-10.3 Carbon Dioxide, Total 28 mmol/L (Normal) Range: 18-29 Chloride, Serum 99 mmol/L (Normal) Range: 96-106 Potassium, Serum 4.5 mmol/L (Normal) Range: 3.5-5.2 Sodium, Serum 144 mmol/L (Normal) Range: 134-144 BUN/Creatinine Ratio 24 (Normal) Range: 11-26 eGFR If Africn Am 63 mL/min/1.73 (Normal) eGFR If NonAfricn Am 54 mL/min/1.73 (Abnormal) Creatinine, Serum 1.00 mg/dL (Normal) Range: 0.57-1.00 BUN 24 mg/dL (Normal) Range: 8-27 Glucose, Serum 89 mg/dL (Normal) Range: 65-99 85-Tfm-977179:26 Prothrombin Time w/INR Comments: [facility] [address] [place], [place], [id number] INR 2.2 (Normal) PROTIME 23.7 s (Abnormal) Range: 11.7-14.9 43-Jyr-979870:52 CBC-Complete Blood Cnt No Diff Comments: [facility] [address] [place], [place], [address] ; sibilia MPV 10.8 fL (Normal) Range: 6.2-12.0 PLT 260 K/mm3 (Normal) Range: 150-450 RDW SD 47.5 fL (Abnormal) Range: 35.1-43.9 RDW CV 13.7 % (Normal) Range: 11.6-14.6 MCHC 31.8 {g/gl} (Abnormal) Range: 32-36 MCH 30.3 pg (Normal) Range: 27.0-32.0 MCV 95.3 fL (Normal) Range: 81-99 HCT 44.6 % (Normal) Range: 37-47 HGB 14.2 g/dL (Normal) Range: 12.0-15.0 RBC 4.68 {M/mm3} (Normal) Range: 4.2-5.4 WBC 7.4 K/mm3 (Normal) Range: 4.4-11.0 64-Eva-440216:58 Prothrombin Time w/INR Comments: [facility] [address] [place], [place], [id number] INR 2.0 (Normal) PROTIME 22.4 s (Abnormal) Range: 11.7-14.9 52-Gmi-339386:49 Prothrombin Time w/INR Comments: [facility] [address] [place], [place], [address] INR 2.0 (Normal) PROTIME 22.3 s (Abnormal) Range: 11.7-14.9 83-Fba-651403:54 CBC WITH MANUAL DIFF ([id number]) Comments: PATIENT NOT FASTINGPERFORMED BY: CB [facility] Ufdeyy7202 [facility] [id number] Immature Grans (Abs) 0.0 {x10E3/uL} (Normal) Range: 0.0-0.1 Immature Granulocytes 0 % (Normal) Baso (Absolute) 0.0 {x10E3/uL} (Normal) Range: 0.0-0.2 Eos (Absolute) 0.3 {x10E3/uL} (Normal) Range: 0.0-0.4 Monocytes(Absolute) 0.5 {x10E3/uL} (Normal) Range: 0.1-0.9 Lymphs (Absolute) 2.7 {x10E3/uL} (Normal) Range: 0.7-3.1 Neutrophils (Absolute) 2.8 {x10E3/uL} (Normal) Range: 1.4-7.0 Basos 0 % (Normal) Eos 4 % (Normal) Monocytes 9 % (Normal) Lymphs 43 % (Normal) Neutrophils 44 % (Normal) Platelets 252 {x10E3/uL} (Normal) Range: 150-379 RDW 14.1 % (Normal) Range: 12.3-15.4 MCHC 32.9 g/dL (Normal) Range: 31.5-35.7 MCH 30.3 pg (Normal) Range: 26.6-33.0 MCV 92 fL (Normal) Range: 79-97 Hematocrit 41.0 % (Normal) Range: 34.0-46.6 Hemoglobin 13.5 g/dL (Normal) Range: 11.1-15.9 RBC 4.45 {x10E6/uL} (Normal) Range: 3.77-5.28 WBC 6.2 {x10E3/uL} (Normal) Range: 3.4-10.8 27-Mya-469282:54 Metabolic Panel, Comprehensive Comments: PATIENT NOT FASTINGPERFORMED BY: [facility]6370 [facility] [id number] ([id number]) ALT (SGPT) 18 [iU]/L (Normal) Range: 0-32 AST (SGOT) 19 [iU]/L (Normal) Range: 0-40 Alkaline Phosphatase, S 80 [iU]/L (Normal) Range: 39-117 Bilirubin, Total 0.4 mg/dL (Normal) Range: 0.0-1.2 A/G Ratio 1.8 (Normal) Range: 1.1-2.5 Globulin, Total 2.4 g/dL (Normal) Range: 1.5-4.5 Albumin, Serum 4.2 g/dL (Normal) Range: 3.5-4.8 Protein, Total, Serum 6.6 g/dL (Normal) Range: 6.0-8.5 Calcium, Serum 9.5 mg/dL (Normal) Range: 8.7-10.3 Carbon Dioxide, Total 29 mmol/L (Normal) Range: 18-29 Chloride, Serum 103 mmol/L (Normal) Range: 97-106 Comments: Effective July 20, 2016 the reference interval for Chloride, Serum will be changing to: 96 - 106 Potassium, Serum 5.0 mmol/L (Normal) Range: 3.5-5.2 Sodium, Serum 143 mmol/L (Normal) Range: 136-144 Comments: Effective July 20, 2016 the reference interval for Sodium, Serum will be changing to: 134 - 144 BUN/Creatinine Ratio 24 (Normal) Range: 11-26 eGFR If Africn Am 66 mL/min/1.73 (Normal) eGFR If NonAfricn Am 57 mL/min/1.73 (Abnormal) Creatinine, Serum 0.96 mg/dL (Normal) Range: 0.57-1.00 BUN 23 mg/dL (Normal) Range: 8-27 Glucose, Serum 86 mg/dL (Normal) Range: 65-99 50-Jzj-690714:54 TSH ([id number]) Comments: PATIENT NOT FASTINGPERFORMED BY: [facility] Center[facility]wrksw[facility]54 [facility] [id number] TSH 2.890 {uIU/mL} (Normal) Range: 0.450-4.500 37-Arq-989940:23 Prothrombin Time w/INR Comments: [facility] [address] [place], [place], [phone] ; managed by cardio INR 2.6 (Normal) PROTIME 27.4 s (Abnormal) Range: 11.7-14.9 55-Gjr-61588:54 Prothrombin Time w/INR Comments: [facility] [address] [place], [place], [address] ; another doc INR 2.0 (Normal) PROTIME 22.3 s (Abnormal) Range: 11.7-14.9 :53 Lipid Profile Comments: Order Date: 05/22/16 Order #: [id number] Clinic [facility] Hospital [address]ugtdq[address] [place], [place], [address] VLDL 21 mg/dL (Normal) Range: 5-40 LDL 80 mg/dL (Normal) Range: 0-130 HDL 57 mg/dL (Normal) Comments: The drugs N-Acetylcysteine and Metamizole may falsely deressthis assay. Reference Range HDL <40 mg/dL Low HDL Cholesterol HDL >or= 60 mg/dL High HDL Cholesterol TRIG 103 mg/dL (Normal) Comments: The drugs N-Acetylcysteine and Metamizole may falsely deressthis assay.Serum Triglycerides Reference Interval Normal <150 mg/dL Borderline high 150 - 199 mg/dL High 200 - 499 mg/dL Very High > or = 500 mg/dL CHOL 158 mg/dL (Normal) Comments: <200 mg/dL Desirable 200-240 mg/dL Borderline >240 mg/dL High Risk :53 Liver Profile Comments: Order Date: 05/22/16 Order #: [id number] Clinic Medina Hospital [address] [place], [place], [address] D BILI < 0.05 mg/dL (Normal) Range: 0.00-0.30 T BILI 0.30 mg/dL (Normal) Range: 0.20-1.00 ALT 24 U/L (Normal) Range: 12-78 ALK P 82 U/L (Normal) Range: 50-136 AST 19 U/L (Normal) Range: 15-37 Comments: Slight Hemolysis, Result may be falsely increased. GLOB 3.3 g/dL (Normal) Range: 2.3-3.5 ALB 3.6 g/dL (Normal) Range: 3.4-5.0 T PROT 6.9 g/dL (Normal) Range: 6.4-8.2 :09 Prothrombin Time w/INR Comments: [facility] [address] [place], [place], [address] INR 2.5 (Normal) PROTIME 26.3 s (Abnormal) Range: 11.7-14.9 :59 Prothrombin Time w/INR Comments: [facility] [address] [place], [place], [address] ; managed by cardio INR 2.9 (Normal) PROTIME 29.3 s (Abnormal) Range: 11.7-14.9 :05 Prothrombin Time w/INR Comments: [facility] [address] [place], [address] INR 2.0 (Normal) PROTIME 22.3 s (Abnormal) Range: 11.7-14.9 75-Dad-795878:11 Prothrombin Time w/INR Comments: [facility] [address] [place], [place], [address] INR 2.7 (Normal) Comments: ADDENDA: managed by cardio PROTIME 27.7 s (Abnormal) Range: 11.7-14.9 :14 Prothrombin Time w/INR Comments: [facility] [address] [place], [place], [id number] ; managed by Jackson INR 2.7 (Normal) PROTIME 28.1 s (Abnormal) Range: 11.7-14.9 :45 Prothrombin Time w/INR Comments: [facility] [address] [place], [place], [address] ; managed by cardio INR 3.1 (Normal) PROTIME 31.3 s (Abnormal) Range: 11.7-14.9 :27 Prothrombin Time w/INR Comments: [facility] [address] [place], [place], [address] ; managed by cardio INR 3.1 (Normal) PROTIME 31.1 s (Abnormal) Range: 11.7-14.9 :22 Prothrombin Time w/INR Comments: [facility] [address] [place], [place], [address] INR 2.6 (Normal) PROTIME 27.4 s (Abnormal) Range: 11.7-14.9 16-Jan-20169:08 Prothrombin Time w/INR Comments: [facility] [address] [place], [place], [address] ; managed with Dr. paz INR 4.1 (Abnormal) Comments: CRITICAL VALUE REPEATED AND VERIFIED. [facility]01/16/16 1251 Elza Hinojosa.RESULTS READ BACK BY SAME . PROTIME 38.2 s (Abnormal) Range: 11.7-14.9 37-Pgo-968419:11 Microscopic Examination Comments: PATIENT WAS FASTINGPERFORMED BY: [facility] [id number] Bacteria None seen (Normal) Mucus Threads Present (Normal) Epithelial Cells (non renal) 0-10 {/hpf} (Normal) Range: 0 - 10 RBC 11-30 {/hpf} (Abnormal) Range: 0 - 2 WBC 0-5 {/hpf} (Normal) Range: 0 - 5 83-Ljm-155535:11 MICROALBUMIN: CREATININE RATIO Comments: PATIENT WAS FASTINGPERFORMED BY: Skiipi [facility] [id number] ([id number]) AND (09654) Microalb/Creat Ratio 11.4 {mg/g_creat} (Normal) Range: 0.0-30.0 Microalbumin, Urine 12.1 ug/mL (Normal) Comments: Please note reference interval change Creatinine, Urine 106.3 mg/dL (Normal) Comments: Please note reference interval change 70-Klm-184325:11 URINALYSIS ([id number]) Comments: PATIENT WAS FASTINGPERFORMED BY: [facility] [id number] Microscopic Examination See below: (Normal) Comments: Microscopic was indicated and was performed. Nitrite, Urine Negative (Normal) Urobilinogen,Semi-Qn 0.2 mg/dL (Normal) Range: 0.2-1.0 Bilirubin Negative (Normal) Occult Blood 2+ (Abnormal) Ketones Negative (Normal) Glucose Negative (Normal) Protein Negative (Normal) WBC Esterase Negative (Normal) Appearance Clear (Normal) Urine-Color Yellow (Normal) pH 7.0 (Normal) Range: 5.0-7.5 Specific Grace 1.018 (Normal) Range: 1.005-1.030 97-Azs-495610:11 Metabolic Panel, Comments: PATIENT WAS FASTINGPERFORMED BY: [facility]6370 [facility] [id number] Information: [id number], [id number] Comprehensive ([id number]) ALT (SGPT) 14 [iU]/L (Normal) Range: 0-32 AST (SGOT) 15 [iU]/L (Normal) Range: 0-40 Alkaline Phosphatase, S 81 [iU]/L (Normal) Range: 39-117 Bilirubin, Total 0.4 mg/dL (Normal) Range: 0.0-1.2 A/G Ratio 1.7 (Normal) Range: 1.1-2.5 Globulin, Total 2.5 g/dL (Normal) Range: 1.5-4.5 Albumin, Serum 4.2 g/dL (Normal) Range: 3.5-4.8 Protein, Total, Serum 6.7 g/dL (Normal) Range: 6.0-8.5 Calcium, Serum 9.3 mg/dL (Normal) Range: 8.7-10.3 Carbon Dioxide, Total 27 mmol/L (Normal) Range: 18-29 Chloride, Serum 100 mmol/L (Normal) Range: 97-108 Potassium, Serum 5.1 mmol/L (Normal) Range: 3.5-5.2 Sodium, Serum 142 mmol/L (Normal) Range: 134-144 BUN/Creatinine Ratio 21 (Normal) Range: 11-26 eGFR If Africn Am 62 mL/min/1.73 (Normal) eGFR If NonAfricn Am 54 mL/min/1.73 (Abnormal) Creatinine, Serum 1.02 mg/dL (Abnormal) Range: 0.57-1.00 BUN 21 mg/dL (Normal) Range: 8-27 Glucose, Serum 91 mg/dL (Normal) Range: 65-99 56-Ddg-019009:11 TSH ([id number]) Comments: PATIENT WAS FASTINGPERFORMED BY: [facility] Vlnroc7230 [facility] [id number] TSH 2.260 {uIU/mL} (Normal) Range: 0.450-4.500 :17 Prothrombin Time w/INR Comments: [facility] [address] [place], [place], [address] INR 2.8 (Normal) PROTIME 28.4 s (Abnormal) Range: 11.7-14.9 :40 Lipid Profile Comments: [facility] [address] [place], [place], [address] VLDL 22 mg/dL (Normal) Range: 5-40 LDL 93 mg/dL (Normal) Range: 0-130 HDL 68 mg/dL (Normal) Comments: Reference Range HDL <40 mg/dL Low HDL Cholesterol HDL >or= 60 mg/dL High HDL Cholesterol TRIG 110 mg/dL (Normal) Comments: Serum Triglycerides Reference Interval Normal <150 mg/dL Borderline high 150 - 199 mg/dL High 200 - 499 mg/dL Very High > or = 500 mg/dL CHOL 183 mg/dL (Normal) Comments: <200 mg/dL Desirable 200-240 mg/dL Borderline >240 mg/dL High Risk :40 Liver Profile Comments: [facility] [address] [place], [place], [address] D BILI 0.10 mg/dL (Normal) Range: 0.00-0.30 T BILI 0.60 mg/dL (Normal) Range: 0.20-1.00 ALT 26 U/L (Normal) Range: 12-78 ALK P 86 U/L (Normal) Range: 50-136 AST 20 U/L (Normal) Range: 15-37 GLOB 3.4 g/dL (Normal) Range: 2.3-3.5 ALB 3.9 g/dL (Normal) Range: 3.4-5.0 T PROT 7.3 g/dL (Normal) Range: 6.4-8.2 :26 Prothrombin Time w/INR Comments: [facility] [address] [place], [place], [id number] INR 2.6 (Normal) Comments: ADDENDA: handled by cardio PROTIME 27.3 s (Abnormal) Range: 11.7-14.9 :40 Prothrombin Time w/INR Comments: [facility] [address] [place], [address] INR 2.4 (Normal) PROTIME 26.4 s (Abnormal) Range: 11.7-14.9 8-Tpx-723662:03 Prothrombin Time w/INR Comments: [place] [address] [place], [address] ; per pop up in EMR cardio manages INR INR 2.2 (Normal) PROTIME 24.5 s (Abnormal) Range: 11.7-14.9 :51 Prothrombin Time w/INR Comments: [place] [address] [place], [id number] INR 1.6 (Normal) PROTIME 19.0 s (Abnormal) Range: 11.7-14.9 Comments: ADDENDA: managed by cardio :33 Prothrombin Time w/INR Comments: [facility] [address] [place], [address] ; handled by cardio INR 2.1 (Normal) PROTIME 24.0 s (Abnormal) Range: 11.7-14.9 41-Wul-115306:02 Prothrombin Time w/INR Comments: [place] [address] [place], [address] INR 2.2 (Normal) PROTIME 24.1 s (Abnormal) Range: 11.7-14.9 [id number] Prothrombin Time w/INR Comments: [facility] [id number] [place], [id number] INR 2.5 (Normal) PROTIME 26.7 s (Abnormal) Range: 11.7-14.9 :44 Prothrombin Time w/INR Comments: [place] [address] [place], [place], [id number] INR 2.2 (Normal) PROTIME 24.6 s (Abnormal) Range: 11.7-14.9 [id number] Prothrombin Time w/INR Comments: [facility] [id number] [place], [id number] INR 1.6 (Normal) PROTIME 19.4 s (Abnormal) Range: 11.7-14.9 :36 Prothrombin Time w/INR Comments: [facility] [id number] [place], [id number] INR 1.2 (Normal) PROTIME 15.3 s (Abnormal) Range: 11.7-14.9 :02 Prothrombin Time w/INR Comments: [place] [address] [place], [place], [id number] INR 2.7 (Normal) PROTIME 29.0 s (Abnormal) Range: 11.7-14.9 :47 Lipid Profile Comments: [facility] [id number] [place], [place], [id number] VLDL 20 mg/dL (Normal) Range: 5-40 LDL 98 mg/dL (Normal) Range: 0-130 HDL 73 mg/dL (Normal) Comments: Reference Range HDL <40 mg/dL Low HDL Cholesterol HDL >or= 60 mg/dL High HDL Cholesterol TRIG 100 mg/dL (Normal) Comments: Serum Triglycerides Reference Interval Normal <150 mg/dL Borderline high 150 - 199 mg/dL High 200 - 499 mg/dL Very High > or = 500 mg/dL CHOL 191 mg/dL (Normal) Comments: <200 mg/dL Desirable 200-240 mg/dL Borderline >240 mg/dL High Risk :47 Liver Profile Comments: [facility] [id number] [place], [id number] D BILI 0.09 mg/dL (Normal) Range: 0.00-0.30 T BILI 0.40 mg/dL (Normal) Range: 0.20-1.00 ALT 26 U/L (Normal) Range: 12-78 ALK P 86 U/L (Normal) Range: 50-136 AST 24 U/L (Normal) Range: 15-37 GLOB 3.3 g/dL (Normal) Range: 2.3-3.5 ALB 4.0 g/dL (Normal) Range: 3.4-5.0 T PROT 7.3 g/dL (Normal) Range: 6.4-8.2 [id number] CBC, Platelets & Auto Diff Comments: PATIENT NOT FASTINGPERFORMED BY: [facility] [id number] [facility] [id number] Information: [id number]) Immature Grans (Abs) 0.0 {x10E3/uL} (Normal) Range: 0.0-0.1 Immature Granulocytes 0 % (Normal) Baso (Absolute) 0.0 {x10E3/uL} (Normal) Range: 0.0-0.2 Eos (Absolute) 0.3 {x10E3/uL} (Normal) Range: 0.0-0.4 Monocytes(Absolute) 0.5 {x10E3/uL} (Normal) Range: 0.1-0.9 Lymphs (Absolute) 2.5 {x10E3/uL} (Normal) Range: 0.7-3.1 Neutrophils (Absolute) 2.9 {x10E3/uL} (Normal) Range: 1.4-7.0 Basos 1 % (Normal) Eos 4 % (Normal) Monocytes 7 % (Normal) Lymphs 41 % (Normal) Neutrophils 47 % (Normal) Platelets 235 {x10E3/uL} (Normal) Range: 150-379 RDW 14.4 % (Normal) Range: 12.3-15.4 MCHC 33.1 g/dL (Normal) Range: 31.5-35.7 MCH 30.4 pg (Normal) Range: 26.6-33.0 MCV 92 fL (Normal) Range: 79-97 Hematocrit 39.0 % (Normal) Range: 34.0-46.6 Hemoglobin 12.9 g/dL (Normal) Range: 11.1-15.9 RBC 4.25 {x10E6/uL} (Normal) Range: 3.77-5.28 WBC 6.2 {x10E3/uL} (Normal) Range: 3.4-10.8 5-Hji-995866:11 CALCIFEDIOL (03538) Comments: PATIENT NOT FASTINGPERFORMED BY: [facility] [facility] [id number] Vitamin D, 25-Hydroxy 38.9 ng/mL (Normal) Range: 30.0-100.0 Comments: Vitamin D deficiency has been defined by the [place] [facility] and an Endocrine Society practice guideline as alevel of serum 25-OH vitamin D less than 20 ng/mL (1,2).The Endocrine Society went on to further define vitamin Dinsufficiency as a level between 21 and 29 ng/mL (2).1. IOM ([place] of Medicine). 2010. Dietary reference intakes for calcium and D. [place]: The National Academies Press.2. Roberto GRAY, Brody OCHOA, Maribell CADENA, et al. Evaluation, treatment, and prevention of vitamin D deficiency: an Endocrine Society clinical practice guideline. JCEM. 2010; 96(7):1911-30. 3-Uwg-051608:11 VITAMIN B12 AND FOLATES Comments: PATIENT NOT FASTINGPERFORMED BY: [facility] [facility] [id number] ([id number]) Folate (Folic Acid), Serum 10.4 ng/mL (Normal) Comments: A serum folate concentration of less than 3.1 ng/mL isconsidered to represent clinical deficiency. Vitamin B12 1651 pg/mL (Abnormal) Range: 211-946 9-Jqu-317041:11 Metabolic Panel, Comprehensive Comments: PATIENT NOT FASTINGPERFORMED BY: [facility]6[address] [facility] [id number] ([id number]) ALT (SGPT) 15 [iU]/L (Normal) Range: 0-32 AST (SGOT) 17 [iU]/L (Normal) Range: 0-40 Alkaline Phosphatase, S 75 [iU]/L (Normal) Range: 39-117 Bilirubin, Total 0.3 mg/dL (Normal) Range: 0.0-1.2 A/G Ratio 1.7 (Normal) Range: 1.1-2.5 Globulin, Total 2.5 g/dL (Normal) Range: 1.5-4.5 Albumin, Serum 4.3 g/dL (Normal) Range: 3.5-4.8 Protein, Total, Serum 6.8 g/dL (Normal) Range: 6.0-8.5 Calcium, Serum 9.2 mg/dL (Normal) Range: 8.7-10.3 Carbon Dioxide, Total 27 mmol/L (Normal) Range: 18-29 Chloride, Serum 101 mmol/L (Normal) Range: 97-108 Potassium, Serum 4.8 mmol/L (Normal) Range: 3.5-5.2 Sodium, Serum 141 mmol/L (Normal) Range: 134-144 BUN/Creatinine Ratio 25 (Normal) Range: 11-26 eGFR If Africn Am 67 mL/min/1.73 (Normal) eGFR If NonAfricn Am 58 mL/min/1.73 (Abnormal) Creatinine, Serum 0.96 mg/dL (Normal) Range: 0.57-1.00 BUN 24 mg/dL (Normal) Range: 8-27 Glucose, Serum 89 mg/dL (Normal) Range: 65-99 09-May-20159:53 Prothrombin Time w/INR Comments: [facility] [address] [facility] [place], [address] INR 1.9 (Normal) PROTIME 22.0 s (Abnormal) Range: 11.7-14.9 28-Yvt-278127:40 Prothrombin Time w/INR Comments: Test performed at:[facility] [address] [place] [address] INR 1.3 (Normal) PROTIME 16.3 s (Abnormal) Range: 11.7-14.9 67-Vkq-561083:03 Prothrombin Time w/INR Comments: Test performed at:[facility] [address] [place] [address] INR 1.7 (Normal) PROTIME 20.4 s (Abnormal) Range: 11.7-14.9 2-Duj-839802:26 Prothrombin Time w/INR Comments: Test performed at:[facility] [address] [place] [address] INR 1.2 (Normal) Comments: ADDENDA: managed by dr paz PROTIME 15.8 s (Abnormal) Range: 11.7-14.9 90-Rky-803540:28 Prothrombin Time w/INR Comments: Test performed at:[facility] [address] [place] [address] INR 1.2 (Normal) PROTIME 15.8 s (Abnormal) Range: 11.7-14.9 :54 Prothrombin Time w/INR Comments: Test performed at:[facility] [address] [place] [address] INR 2.5 (Normal) PROTIME 27.3 s (Abnormal) Range: 11.7-14.9 0-Spi-818244:16 Prothrombin Time w/INR Comments: Test performed at:[facility] [address] [place] [address] INR 2.0 (Normal) PROTIME 23.2 s (Abnormal) Range: 11.7-14.9 99-Xkz-183945:29 Prothrombin Time w/INR Comments: Test performed at:[facility] [address] [place] [address] INR 2.8 (Normal) PROTIME 29.3 s (Abnormal) Range: 11.7-14.9 04-Ytp-834738:06 Prothrombin Time w/INR Comments: Test performed at:[facility] [address] [place] [address] ; Dr Bella manages INR 2.1 (Normal) PROTIME 24.0 s (Abnormal) Range: 11.7-14.9 :45 Prothrombin Time w/INR Comments: Test performed at:[facility] [address] [place] [address] ; ordered by another INR 1.3 (Normal) PROTIME 16.5 s (Abnormal) Range: 11.7-14.9 :00 Prothrombin Time w/INR Comments: Test performed at:[facility] [address] [place] [address] INR 0.9 (Normal) PROTIME 12.7 s (Normal) Range: 11.7-14.9 :05 Vitamin B12 and Folate Comments: PATIENT NOT FASTINGPERFORMED BY: [facility] [facility] [id number] Information: [id number] Folate (Folic Acid), 7.8 ng/mL (Normal) Comments: A serum folate concentration of less than 3.1 ng/mL isconsidered to represent clinical deficiency. Serum Vitamin B12 1883 pg/mL Range: 211-946 (Abnormal) : Vitamin D, 42.8 ng/mL (Normal) Comments: PATIENT NOT FASTINGPERFORMED BY: [facility] [facility] [id number] 05 25-Hydroxy Range: 30.0-100.0 Comments: Vitamin D deficiency has been defined by the [place] [facility] and an Endocrine Society practice guideline as alevel of serum 25-OH vitamin D less than 20 ng/mL (1,2).The Endocrine Society went on to further define vitamin Dinsufficiency as a level between 21 and 29 ng/mL (2).1. IOM ([place] of Medicine). 2010. Dietary reference intakes for calcium and D. [place]: The National Academies Press.2. Roberto MF, Brody OCHOA, Maribell CADENA, et al. Evaluation, treatment, and prevention of vitamin D deficiency: an Endocrine Society clinical practice guideline. JCEM. 2010; 96(7):1911-30. 92-Ozn-108916:04 CBC W/Diff, Automated Comments: Test performed at:[facility] [address] [place] [address] Absolute Lymph 2.41 {X10_3/ul} (Normal) Range: 0.83-4.51 Absolute Neut 3.2 {X10_3/uL} (Normal) Range: 2.0-7.7 IM GRAN % 0.300 % (Normal) Range: 0.0-0.9 Comments: IG% - Immature Granulocytes (promyelocytes, myelocytes andmetamyelocytes) > 1% indicates that a LEFT SHIFT is Present. BASO% 0.9 % (Normal) Range: 0-1 EO% 4.7 % (Normal) Range: 0-5 MONO% 8.3 % (Normal) Range: 0-10 LY% 36.9 % (Normal) Range: 19-41 NEUT% 48.9 % (Normal) Range: 47-70 MPV 11.9 fL (Normal) Range: 6.2-12.0 PLT 236 K/mm3 (Normal) Range: 150-450 RDW SD 46.1 fL (Abnormal) Range: 35.1-43.9 RDW CV 13.8 % (Normal) Range: 11.6-14.6 MCHC 31.5 {g/gl} (Abnormal) Range: 32-36 MCH 29.9 pg (Normal) Range: 27.0-32.0 MCV 94.9 fL (Normal) Range: 81-99 HCT 42.9 % (Normal) Range: 37-47 HGB 13.5 g/dL (Normal) Range: 12.0-15.0 RBC 4.52 {M/mm3} (Normal) Range: 4.2-5.4 WBC 6.5 K/mm3 (Normal) Range: 4.4-11.0 1-Ymw-858558:26 Basic Metabolic Profile (BMP) Comments: Test performed at:[facility] [address] [place] [address] [id number] GAP 4 (Abnormal) Range: 5-15 CO2 33.0 mmol/L (Abnormal) Range: 21.0-32.0 CL 103 mmol/L (Normal) Range: 98-107 K 4.8 mmol/L (Normal) Range: 3.5-5.1 NA 140 mmol/L (Normal) Range: 136-145 CA 8.8 mg/dL (Normal) Range: 8.5-10.1 BUN/CRE 25.8 {RATIO} (Abnormal) Range: 10-20 CREAT,SERUM 1.2 mg/dL (Abnormal) Range: 0.6-1.0 BUN 31 mg/dL (Abnormal) Range: 7-18 GLU 108 mg/dL (Normal) Range: 70-110 44-Kvr-935128:45 Basic Metabolic Profile (BMP) Comments: Test performed at:[facility] [address] [place] [address] [place] [address] GAP 4 (Abnormal) Range: 5-15 CO2 28.0 mmol/L (Normal) Range: 21.0-32.0 CL 106 mmol/L (Normal) Range: 98-107 K 4.3 mmol/L (Normal) Range: 3.5-5.1 NA 138 mmol/L (Normal) Range: 136-145 CA 8.8 mg/dL (Normal) Range: 8.5-10.1 BUN/CRE 26.0 {RATIO} (Abnormal) Range: 10-20 CREAT,SERUM 1.0 mg/dL (Normal) Range: 0.6-1.0 BUN 26 mg/dL (Abnormal) Range: 7-18 GLU 93 mg/dL (Normal) Range: 70-110 13-Uqo-184640:45 CBC W/Diff, Automated Comments: Test performed at:[facility] [address] [place] [address] Absolute Lymph 2.60 {X10_3/ul} (Normal) Range: 0.83-4.51 Absolute Neut 3.1 {X10_3/uL} (Normal) Range: 2.0-7.7 IM GRAN % 0.200 % (Normal) Range: 0.0-0.9 Comments: IG% - Immature Granulocytes (promyelocytes, myelocytes andmetamyelocytes) > 1% indicates that a LEFT SHIFT is Present. BASO% 0.5 % (Normal) Range: 0-1 EO% 5.1 % (Abnormal) Range: 0-5 MONO% 7.5 % (Normal) Range: 0-10 LY% 39.8 % (Normal) Range: 19-41 NEUT% 46.9 % (Abnormal) Range: 47-70 MPV 11.2 fL (Normal) Range: 6.2-12.0 PLT 224 K/mm3 (Normal) Range: 150-450 RDW SD 46.4 fL (Abnormal) Range: 35.1-43.9 RDW CV 13.5 % (Normal) Range: 11.6-14.6 MCHC 31.9 {g/gl} (Abnormal) Range: 32-36 MCH 29.9 pg (Normal) Range: 27.0-32.0 MCV 93.7 fL (Normal) Range: 81-99 HCT 43.3 % (Normal) Range: 37-47 HGB 13.8 g/dL (Normal) Range: 12.0-15.0 RBC 4.62 {M/mm3} (Normal) Range: 4.2-5.4 WBC 6.5 K/mm3 (Normal) Range: 4.4-11.0 :07 Lipid Profile Comments: Specimen slightly hemolyzed. Results may be affected.Test performed at:[facility] [address] [place] [address] VLDL 19 mg/dL (Normal) Range: 5-40 LDL 72 mg/dL (Normal) Range: 0-130 HDL 70 mg/dL (Normal) Comments: Reference Range HDL <40 mg/dL Low HDL Cholesterol HDL >or= 60 mg/dL High HDL Cholesterol TRIG 97 mg/dL (Normal) Range: 0-199 Comments: Serum Triglycerides Reference Interval Normal <150 mg/dL Borderline high 150 - 199 mg/dL High 200 - 499 mg/dL Very High > or = 500 mg/dL CHOL 161 mg/dL (Normal) Comments: <200 mg/dL Desirable 200-240 mg/dL Borderline >240 mg/dL High Risk :07 Liver Profile Comments: Specimen slightly hemolyzed. Results may be affected.Test performed at:[facility] [address] [facility] [place], [place] [address] D BILI < 0.05 mg/dL (Normal) Range: 0.00-0.30 T BILI 0.50 mg/dL (Normal) Range: 0.00-4.00 ALT 25 U/L (Normal) Range: 12-78 ALK P 85 U/L (Normal) Range: 50-136 AST 28 U/L (Normal) Range: 15-37 GLOB 3.3 g/dL (Normal) Range: 2.7-4.2 ALB 3.6 g/dL (Normal) Range: 3.4-5.0 T PROT 6.9 g/dL (Normal) Range: 6.4-8.2 :47 LIPID VLDL 16 mg/dL (Normal) Range: 5-40 LDL 146 mg/dL (Abnormal) Range: 0-130 HDL 64 mg/dL (Normal) Comments: Reference RangeHDL <40 mg/dL Low HDL CholesterolHDL >or= 60 mg/dL High HDL Cholesterol TRIG 80 mg/dL (Normal) Range: 0-199 Comments: Serum Triglycerides Reference IntervalNormal <150 mg/dLBorderline high 150 - 199 mg/dLHigh 200 - 499 mg/ dLVery High > or = 500 mg/dL CHOL 226 mg/dL (Abnormal) Comments: <200 mg/dL Wcjlgqqui583-365 mg/dL Borderline>240 mg/dL High Risk :47 LIVER BID 0.11 mg/dL (Normal) Range: 0.00-0.30 BIT 0.30 mg/dL (Normal) Range: 0.00-4.00 ALT 25 U/L (Normal) Range: 12-78 ALK 104 U/L (Normal) Range: 50-136 AST 16 U/L (Normal) Range: 15-37 GLOB 3.5 g/dL (Normal) Range: 2.7-4.2 ALB 3.7 g/dL (Normal) Range: 3.4-5.0 TPROT 7.2 g/dL (Normal) Range: 6.4-8.2 :47 T4 8.4 ug/dL (Normal) Range: 4.8-13.9 :47 TSH 3.05 {uIU/mL} (Normal) Range: 0.358-3.74 17-Qbi-122431:00 LORNA CULTURE-OTHER (11840) Comments: PATIENT NOT FASTINGPERFORMED BY: [facility] [facility] [id number] Information: SRC:THRT [id number] Result 1 RRF (Normal) Comments: Routine respiratory jesus Upper Respiratory Culture Final report (Normal) 90-Jke-69643:21 Rapid Strep Test, Office (74161) Rapid Strep Test, Office Negative (Normal) 60-Rrt-29023:00 BILAT SCRN DIGITAL & CAD Radiology Report See Note (Normal) Comments: MAMMOGRAPHY - BILATERAL SCREENING REASON FOR EXAM: Female, 72 years old. Routine annual screeningexamination. PERTINENT HISTORY: Non-contributory. TECHNIQUE: Digital examination. Med iolateral ob lique (MLO) andcraniocaudad (CC) views of both breasts were obtained. CAD: CAD wasperformed on this study. COMPARISON: Comparison is made with prior studies dated April and June 18. FINDINGS:The breast composition is composed of scattered fibroglandular tissuesranging from 25% to 50% of the breast. There are no dominant masses or suspicious calcifications. No other significant abnormalities are identified. There has been nosignificant change since the prior study. IMPRESSION:Stable bilateral screening mammogram. Yearly follow-up recommended. (A) ASSESSMENT CATEGORY:BIRADS Category 2: Benign finding(s). A letter regarding these resultswill be sent to the patient by the facility within 30 days. Approximately 10% of breast cancers are not detected by mammography. Anorma l mammogram should not delay biopsy of a clinically suspiciousabnormality. Signed:Henry Jones M.D.January 04, 2013 at 10:41:52 AM [phone] Signed GP/GP If you are the referring physician and would like to consult with theradiologist who provided this interpretation, please contact Ne Huang at [phone]. If this radiologist is unavailable, youwill be directed to another radiologist to assist. If you are a patient with a question regarding this report, pleasecontactyour referring physician directly. Professional Interpretation Provided By: [employer], Phone , These documents contain legally protected and confidential healthinformation intended only for the use of the individual or entity namedabove. If you are not the intended recipient, you are hereby notifiedthatany disclosure, copying, distribution, or other use of these documents isstrictly prohibited. If you have received this information in error,pleasenotify the sende r immediately and arrange for the return or destructionofthese documents. Dictated on 01/04/131040 by Cher Jones MDribed on 01/04/131041 by ITS IMPORTSign by Henry Jones MD on 01/04/13 1044 Sign by: Henry Jones MD :19 Hepatic Function Panel Comments: PATIENT WAS FASTINGPERFORMED BY: [facility] [facility] [id number] Information: [id number] (7) ALT (SGPT) 23 [iU]/L (Normal) Range: 0-32 AST (SGOT) 21 [iU]/L (Normal) Range: 0-40 Alkaline Phosphatase, S 74 [iU]/L (Normal) Range: 25-165 Bilirubin, Direct 0.10 mg/dL Range: 0.00-0.40 (Normal) Albumin, Serum 4.3 g/dL (Normal) Range: 3.5-4.8 Bilirubin, Total 0.3 mg/dL (Normal) Range: 0.0-1.2 Protein, Total, Serum 6.7 g/dL (Normal) Range: 6.0-8.5 Written Authorization WAR (Normal) Comments: PATIENT WAS FASTINGPERFORMED BY: [facility] [facility] [id number] :19 Comments: Written Authorization Received.Authorization received from DR BRO [id number] by Rachelle Porter :19 Metabolic Panel, Comprehensive Comments: PATIENT WAS FASTINGPERFORMED BY: [facility] [facility] [id number] (56943) ALT (SGPT) 22 [iU]/L (Normal) Range: 0-32 AST (SGOT) 22 [iU]/L (Normal) Range: 0-40 Alkaline Phosphatase, S 73 [iU]/L (Normal) Range: 25-165 Bilirubin, Total 0.4 mg/dL (Normal) Range: 0.0-1.2 A/G Ratio 1.9 (Normal) Range: 1.1-2.5 Globulin, Total 2.3 g/dL (Normal) Range: 1.5-4.5 Albumin, Serum 4.3 g/dL (Normal) Range: 3.5-4.8 Protein, Total, Serum 6.6 g/dL (Normal) Range: 6.0-8.5 Calcium, Serum 9.9 mg/dL (Normal) Range: 8.6-10.2 Carbon Dioxide, Total 26 mmol/L (Normal) Range: 20-32 Chloride, Serum 105 mmol/L (Normal) Range: 97-108 Potassium, Serum 5.2 mmol/L (Normal) Range: 3.5-5.2 Sodium, Serum 143 mmol/L (Normal) Range: 134-144 BUN/Creatinine Ratio 19 (Normal) Range: 11-26 eGFR If Africn Am 60 mL/min/1.73 (Normal) eGFR If NonAfricn Am 52 mL/min/1.73 (Abnormal) Creatinine, Serum 1.06 mg/dL (Abnormal) Range: 0.57-1.00 BUN 20 mg/dL (Normal) Range: 8-27 Glucose, Serum 89 mg/dL (Normal) Range: 65-99 0-Beu-191082:19 CBC with manual diff Comments: PATIENT WAS FASTINGPERFORMED BY: [facility]Saint [facility] CenterClfrch6664 [facility] [id number] Information: [id number] (92157) Immature Grans (Abs) 0.0 {x10E3/uL} (Normal) Range: 0.0-0.1 Immature Granulocytes 0 % (Normal) Range: 0-2 Baso (Absolute) 0.1 {x10E3/uL} (Normal) Range: 0.0-0.2 Eos (Absolute) 0.2 {x10E3/uL} (Normal) Range: 0.0-0.4 Monocytes(Absolute) 0.6 {x10E3/uL} (Normal) Range: 0.1-1.0 Lymphs (Absolute) 2.0 {x10E3/uL} (Normal) Range: 0.7-4.5 Neutrophils (Absolute) 1.7 {x10E3/uL} (Abnormal) Range: 1.8-7.8 Basos 1 % (Normal) Range: 0-3 Eos 5 % (Normal) Range: 0-7 Monocytes 12 % (Normal) Range: 4-13 Lymphs 45 % (Normal) Range: 14-46 Neutrophils 37 % (Abnormal) Range: 40-74 Platelets 210 {x10E3/uL} (Normal) Range: 140-415 RDW 14.7 % (Normal) Range: 12.3-15.4 MCHC 32.6 g/dL (Normal) Range: 31.5-35.7 MCH 29.4 pg (Normal) Range: 26.6-33.0 MCV 90 fL (Normal) Range: 79-97 Hematocrit 40.2 % (Normal) Range: 34.0-46.6 Hemoglobin 13.1 g/dL (Normal) Range: 11.1-15.9 RBC 4.46 {x10E6/uL} (Normal) Range: 3.77-5.28 WBC 4.6 {x10E3/uL} (Normal) Range: 4.0-10.5 7-Ljt-974967:19 Lipid Panel (99251) Comments: PATIENT WAS FASTINGPERFORMED BY: [facility] [id number] LDL/HDL Ratio 1.3 {ratio_units} (Normal) Range: 0.0-3.2 Cholesterol, Total 153 mg/dL (Normal) Range: 100-199 HDL Cholesterol 60 mg/dL (Normal) Comments: According to ATP-III Guidelines, HDL-C >59 mg/dL is considered anegative risk factor for CHD. LDL Cholesterol Calc 80 mg/dL (Normal) Range: 0-99 Triglycerides 65 mg/dL (Normal) Range: 0-149 VLDL Cholesterol Hector 13 mg/dL (Normal) Range: 5-40 7-Dpj-567579:19 TSH (88526) Comments: PATIENT WAS FASTINGPERFORMED BY: [facility] [id number] TSH 2.650 {uIU/mL} (Normal) Range: 0.450-4.500 92-Tab-834592:14 Urinalysis, Office (04165) UA - BILIRUBIN Negative (Normal) UA - BLOOD Hemolyzed Small (Normal) UA - GLUCOSE Negative (Normal) UA - KETONES Negative mg/dL (Normal) UA - LEUKOCYTE ESTERASE Negative (Normal) UA - NITRITE Negative (Normal) UA - PH 7.0 (Normal) UA - PROTEIN Negative mg/dL (Normal) UA - SPECIFIC GRAVITY 1.015 (Normal) URINE UROBILINGN REYNA TIMED Normal mg/dL (Normal) 48-Epi-348242:10 TSH (THYROID STIMULATING Comments: PATIENT WAS FASTINGPERFORMED BY: [facility] [id number] HORMONE) (27249) TSH 2.500 {uIU/mL} (Normal) Range: 0.450-4.500 74-Aqb-714042:10 CALCIFEDIOL (30380) Comments: PATIENT WAS FASTINGPERFORMED BY: [facility] [facility] [id number] Vitamin D, 25-Hydroxy 48.1 ng/mL (Normal) Range: 30.0-100.0 Comments: Vitamin D deficiency has been defined by the [place] ofMedicine and an Endocrine Society practice guideline as alevel of serum 25-OH vitamin D less than 20 ng/mL (1,2).The Endocrine Society went on to further define vitamin Dinsufficiency as a level between 21 and 29 ng/mL (2).1. IOM ([place] of Medicine). 2010. Dietary reference intakes for calcium and D. [place]: The National Academies Press.2. Roberto MF, Brody [place], Maribell CADENA, et al. Evaluation, treatment, and prevention of vitamin D deficiency: an Endocrine Society clinical practice guideline. JCEM. 2010; 96(7):1911-30. 26-Mzz-181473:10 Lipid Panel (85613) Comments: PATIENT WAS FASTINGPERFORMED BY: [facility]6[address] [facility] [id number] LDL/HDL Ratio 2.3 {ratio_units} (Normal) Range: 0.0-3.2 LDL Cholesterol Calc 117 mg/dL (Abnormal) Range: 0-99 VLDL Cholesterol Hector 16 mg/dL (Normal) Range: 5-40 HDL Cholesterol 52 mg/dL (Normal) Comments: According to ATP-III Guidelines, HDL-C >59 mg/dL is considered anegative risk factor for CHD. Triglycerides 78 mg/dL (Normal) Range: 0-149 Cholesterol, Total 185 mg/dL (Normal) Range: 100-199 66-Kaj-157813:10 HEPATIC FUNCTION PANEL Comments: PATIENT WAS FASTINGPERFORMED BY: [facility] [facility] [id number] Information: [id number] (25295) ALT (SGPT) 21 [iU]/L (Normal) Range: 0-40 AST (SGOT) 20 [iU]/L (Normal) Range: 0-40 Alkaline Phosphatase, S 75 [iU]/L (Normal) Range: 25-165 Bilirubin, Direct 0.09 mg/dL (Normal) Range: 0.00-0.40 Albumin, Serum 4.0 g/dL (Normal) Range: 3.5-4.8 Bilirubin, Total 0.3 mg/dL (Normal) Range: 0.0-1.2 Protein, Total, Serum 6.5 g/dL (Normal) Range: 6.0-8.5 :41 TSH (06285) Comments: PATIENT NOT FASTINGPERFORMED BY: [facility] InnovationsGallup Indian Medical CenterEuarcn7514 [facility] [id number] Information: [id number] TSH 3.750 {uIU/mL} (Normal) Range: 0.450-4.500 :39 Prothrombin Time (PT) Comments: PERFORMED BY: SealPak InnovationsBianca [place] [id number] [facility] [id number] Prothrombin Time 39.0 {sec} (Abnormal) Range: 8.7-11.5 INR 3.6 (Abnormal) Range: 0.8-1.2 Comments: Client Requested Flag Reference interval is for non- anticoagulated patients. . Suggested INR therapeutic ra nge for Vitamin K antagonist therapy: Standard Dose (moderate intensity therapeutic range): 2.0 - 3.0 Higher intensity therapeutic range 2.5 - 3.5 :26 PT (PROTHROMBIN TIME) Comments: PATIENT NOT FASTINGPERFORMED BY: [employer] Bi[employer] ProductsMatthew V[place] [id number] [facility] [id number] Information: [id number] CC:[id number] (87425) Prothrombin Time 54.3 {sec} (Abnormal) Range: 8.7-11.5 INR 5.0 (Abnormal) Range: 0.8-1.2 Comments: Client Requested FlagAbnormal result has beenverified by repeat test-ing. If inconsistent withclinical condition, pleaseresubmit another specimenfor verification and torule out specimen hand-ling proble ms for whichthis test is very sensi-tive. Reference interval is for non-anticoagulated patients. . Suggeste d INR therapeutic range for Vitamin K antagonist therapy: Standard Dose (moderate intensity therapeutic range): 2.0 - 3.0 Higher intensity therapeutic range 2.5 - 3.5 :51 PTT (Activated Partial Comments: PATIENT NOT FASTINGPERFORMED BY: [place] [id number] [facility] [id number] Thromboplastin Time) (01296) aPTT 39 {sec} (Abnormal) Range: 24-33 Comments: This test has not been validated for monitoring unfractionated heparintherapy. aPTT-based therapeutic ranges for unfractionated heparintherapy have not been established. For general guidelines onHeparin monitoring, refer to the [facility] Directory of Services. :51 PT (Prothrobim Time) Comments: PATIENT NOT FASTINGPERFORMED BY: [place] [id number] [facility] [id number] Information: [id number] CC:[id number] (01519) Prothrombin Time 26.1 {sec} (Abnormal) Range: 8.7-11.5 INR 2.4 (Abnormal) Range: 0.8-1.2 Comments: Reference interval is for non-anticoagulated patients. . Suggested INR therapeutic range for Vitamin K anta gonist therapy: Standard Dose (moderate intensity therapeutic range): 2.0 - 3.0 Higher intensity therapeutic range 2.5 - 3.5 :43 HEPATIC FUNCTION PANEL Comments: PATIENT NOT FASTINGPERFORMED BY: [facility] [id number] Information: [id number] ([id number]) ALT (SGPT) 25 [iU]/L (Normal) Range: 0-40 AST (SGOT) 19 [iU]/L (Normal) Range: 0-40 Alkaline Phosphatase, S 73 [iU]/L (Normal) Range: 25-165 Albumin, Serum 4.4 g/dL (Normal) Range: 3.5-4.8 Bilirubin, Direct 0.09 mg/dL (Normal) Range: 0.00-0.40 Bilirubin, Total 0.3 mg/dL (Normal) Range: 0.0-1.2 Protein, Total, Serum 6.4 g/dL (Normal) Range: 6.0-8.5 :18 Lipid Panel ([id number]) Comments: PATIENT NOT FASTINGPERFORMED BY: [facility] [id number] LDL/HDL Ratio 1.3 {ratio_units} (Normal) Range: 0.0-3.2 LDL Cholesterol Calc 91 mg/dL (Normal) Range: 0-99 VLDL Cholesterol Hector 21 mg/dL (Normal) Range: 5-40 Cholesterol, Total 181 mg/dL (Normal) Range: 100-199 HDL Cholesterol 69 mg/dL (Normal) Comments: According to ATP-III Guidelines, HDL-C >59 mg/dL is considered anegative risk factor for CHD. Triglycerides 105 mg/dL (Normal) Range: 0-149 :18 HEPATIC FUNCTION PANEL Comments: PATIENT NOT FASTINGPERFORMED BY: [facility] Biologic ProductsApex [facility] Center6370 [facility] [id number] Information: [id number] (48870) ALT (SGPT) 60 [iU]/L (Abnormal) Range: 0-40 Alkaline Phosphatase, S 66 [iU]/L (Normal) Range: 25-165 AST (SGOT) 43 [iU]/L (Abnormal) Range: 0-40 Albumin, Serum 4.3 g/dL (Normal) Range: 3.5-4.8 Bilirubin, Direct 0.10 mg/dL (Normal) Range: 0.00-0.40 Bilirubin, Total 0.3 mg/dL (Normal) Range: 0.0-1.2 Protein, Total, Serum 6.7 g/dL (Normal) Range: 6.0-8.5 :18 CALCIFEDIOL (22143) Comments: PATIENT NOT FASTINGPERFORMED BY: [facility] [id number] Vitamin D, 25-Hydroxy 57.3 ng/mL (Normal) Range: 32.0-100.0 Comments: Recent studies consider the lower limit of 32.0 ng/mL to be athreshold for optimal health.Baljit HOWELL. J Nutr. 2004;135(2):317-22. 7-Mcv-553606:49 Urinalysis, Office (65236) UA - BILIRUBIN Negative (Normal) UA - BLOOD Hemolyzed Moderate (Normal) UA - GLUCOSE Negative (Normal) UA - KETONES Negative mg/dL (Normal) UA - LEUKOCYTE ESTERASE Negative (Normal) UA - NITRITE Negative (Normal) UA - PH 7.5 (Normal) UA - PROTEIN Negative mg/dL (Normal) UA - SPECIFIC GRAVITY 1.015 (Normal) URINE UROBILINGN REYNA TIMED Normal mg/dL (Normal) 49-Qtx-125712:38 Urinalysis, Office (09206) UA - BILIRUBIN Negative (Normal) UA - BLOOD Hemolyzed Small (Normal) UA - GLUCOSE Negative (Normal) UA - KETONES Negative mg/dL (Normal) UA - LEUKOCYTE ESTERASE Negative (Normal) UA - NITRITE Negative (Normal) UA - PH 7.5 (Normal) UA - PROTEIN Negative mg/dL (Normal) UA - SPECIFIC GRAVITY 1.015 (Normal) URINE UROBILINGN REYNA TIMED 2 mg/dL (Normal) 19-Nrc-25739:47 Metabolic Panel, Basic Comments: PATIENT NOT FASTINGPERFORMED BY: [facility] Smsgub0315 [facility] [id number] Information: [id number] (10966) Calcium, Serum 9.6 mg/dL (Normal) Range: 8.6-10.2 Carbon Dioxide, Total 28 mmol/L (Normal) Range: 20-32 Chloride, Serum 102 mmol/L (Normal) Range: 97-108 Potassium, Serum 4.8 mmol/L (Normal) Range: 3.5-5.2 Sodium, Serum 141 mmol/L (Normal) Range: 135-145 BUN/Creatinine Ratio 26 (Normal) Range: 11-26 eGFR AfricanAmerican >59 mL/min/1.73 Comments: Note: Persistent reduction for 3 months or more in an eGFR<60 mL/min/1.73 m2 defines CKD. Patients with eGFR values>/=60 mL/min/1.73 m2 may also have CKD if evidence of persistentproteinuria is (Normal) present. Additional information may be found [email or web address]. eGFR >59 mL/min/1.73 (Normal) BUN 24 mg/dL (Normal) Range: 8-27 Creatinine, Serum 0.91 mg/dL (Normal) Range: 0.57-1.00 Glucose, Serum 90 mg/dL (Normal) Range: 65-99 :52 URINE LORNA CULTURE-REYNA COL Comments: PATIENT NOT FASTINGPERFORMED BY: [employer]70 InteRNA TechnologiesRobley Rex [facility] [id number] Information: SRC:UR [id number] COUNT (56830) Result 1 NG36 (Normal) Comments: No growth in 36 - 48 hours. Urine Culture,Comprehensive Final report (Normal) :29 Urinalysis, Office (01229) UA - BILIRUBIN Negative (Normal) UA - BLOOD Non Hemolyzed Moderate (Normal) UA - GLUCOSE Negative (Normal) UA - KETONES Negative mg/dL (Normal) UA - LEUKOCYTE ESTERASE Trace (Normal) UA - NITRITE Negative (Normal) UA - PH 6.0 (Normal) UA - PROTEIN Negative mg/dL (Normal) UA - SPECIFIC GRAVITY 1.020 (Normal) URINE UROBILINGN REYNA TIMED Normal mg/dL (Normal) 57-Qke-826532:44 Microscopic Examination Comments: PATIENT WAS FASTINGPERFORMED BY: [employer]70 [facility]BaseFirst[facility] [id number] Bacteria Few (Normal) Mucus Threads Present (Normal) Epithelial Cells (non renal) 0-10 {/hpf} (Normal) Range: 0 - 10 RBC 0-3 {/hpf} (Normal) Range: 0 - 3 WBC 0-5 {/hpf} (Normal) Range: 0 - 5 37-Drg-014335:44 CALCIFIDIOL (73625) VIT D 25 Comments: PATIENT WAS FASTINGPERFORMED BY: [employer] Bvaxxg3509 [facility]BaseFirst[facility] [id number] Vitamin D, 25-Hydroxy 28.6 ng/mL (Abnormal) Range: 32.0-100.0 Comments: Recent studies consider the lower limit of 32.0 ng/mL to be athreshold for optimal health.Baljit HOWELL. J Nutr. 2004;135(2):317-22. 40-Ala-119451:44 Folate (36167) Comments: PATIENT WAS FASTINGPERFORMED BY: [facility]6370 [facility] [place] [id number] Folate (Folic Acid), Serum 12.2 ng/mL (Normal) Comments: Indeterminate: 2.2 - 3.0 Deficient: <2.2 62-Zba-717188:44 VITAMIN B-12 (CYANOCOBALAMIN) Comments: PATIENT WAS FASTINGPERFORMED BY: [facility]6370 [facility] [id number] (11429) Vitamin B12 351 pg/mL (Normal) Range: 211-946 36-Vjk-568319:44 SED RATE ERYTHROCYTE (54508) Comments: PATIENT WAS FASTINGPERFORMED BY: [facility]6370 [facility] [id number] Sedimentation Rate-Westergren 2 mm/h (Normal) Range: 0-30 45-Vam-796830:44 RHEUMATOID FACTOR-QUANT (45884) Comments: PATIENT WAS FASTINGPERFORMED BY: [facility]6370 [facility] [id number] RA Latex Turbid. 10.5 {IU/mL} (Normal) Range: 0.0-13.9 95-Vcz-764658:44 C-REACTIVE PROTEIN (82868) Comments: PATIENT WAS FASTINGPERFORMED BY: [facility]6370 [facility] [id number] C-Reactive Protein, Quant 0.9 mg/L (Normal) Range: 0.0-4.9 19-Doj-054372:44 JOANNA (ANTINUCLEAR ANTIBODY) Comments: PATIENT WAS FASTINGPERFORMED BY: [facility]6370 [facility] [id number] (71716) JOANNA Direct Negative (Normal) 75-Aff-517538:44 LIPID PANEL (81408) Comments: PATIENT WAS FASTINGPERFORMED BY: [facility]6370 [facility] [place] [id number] LDL Cholesterol Calc 140 mg/dL (Abnormal) Range: 0-99 LDL/HDL Ratio 1.8 {ratio_units} (Normal) Range: 0.0-3.2 HDL Cholesterol 77 mg/dL (Normal) Comments: According to ATP-III Guidelines, HDL-C >59 mg/dL is considered anegative risk factor for CHD. VLDL Cholesterol Hector 19 mg/dL (Normal) Range: 5-40 Triglycerides 97 mg/dL (Normal) Range: 0-149 Cholesterol, Total 236 mg/dL (Abnormal) Range: 100-199 :44 TSH (90281) Comments: PATIENT WAS FASTINGPERFORMED BY: [employer]al[employer] InnovationsGallup Indian Medical CenterPzfyoz1456 [facility] [id number] TSH 1.670 {uIU/mL} (Normal) Range: 0.450-4.500 :44 URINALYSIS, W/ MICRO (70749) Comments: PATIENT WAS FASTINGPERFORMED BY: [facility] Biologic ProductsA[facility] Center6370 [facility] [id number] Microscopic Examination See below: (Normal) Bilirubin Negative (Normal) Ketones Negative (Normal) Nitrite, Urine Negative (Normal) Occult Blood 1+ (Abnormal) Urobilinogen,Semi-Qn 0.2 mg/dL (Normal) Range: 0.0-1.9 Glucose Negative (Normal) Protein Negative (Normal) Appearance Clear (Normal) pH 7.0 (Normal) Range: 5.0-7.5 Urine-Color Yellow (Normal) WBC Esterase Negative (Normal) Specific Grace 1.016 (Normal) Range: 1.005-1.030 :44 MICROALBUMIN: CREATININE RATIO Comments: PATIENT WAS FASTINGPERFORMED BY: SealPak InnovationsSaint Barnabas Medical CenterGrovsu8938 [facility] [id number] (86298) AND (92475) Microalb/Creat Ratio 2.8 {mg/g_creat} (Normal) Range: 0.0-30.0 Creatinine, Urine 61.0 mg/dL (Normal) Range: 15.0-278.0 Microalbumin, Urine 1.7 ug/mL (Normal) Range: 0.0-17.0 :44 METABOLIC PANEL, COMPREHENSIVE Comments: PATIENT WAS FASTINGPERFORMED BY: [facility] Biologic ProductsA[facility] Center6370 [facility] [id number] (47093) ALT (SGPT) 16 [iU]/L (Normal) Range: 0-40 AST (SGOT) 14 [iU]/L (Normal) Range: 0-40 Alkaline Phosphatase, S 91 [iU]/L (Normal) Range: 25-165 Bilirubin, Total 0.3 mg/dL (Normal) Range: 0.0-1.2 A/G Ratio 1.8 (Normal) Range: 1.1-2.5 Globulin, Total 2.5 g/dL (Normal) Range: 1.5-4.5 Albumin, Serum 4.4 g/dL (Normal) Range: 3.5-4.8 Protein, Total, Serum 6.9 g/dL (Normal) Range: 6.0-8.5 Calcium, Serum 10.1 mg/dL (Normal) Range: 8.6-10.2 Carbon Dioxide, Total 27 mmol/L (Normal) Range: 20-32 Chloride, Serum 104 mmol/L (Normal) Range: 97-108 Potassium, Serum 5.4 mmol/L (Abnormal) Range: 3.5-5.2 BUN/Creatinine Ratio 21 (Normal) Range: 11-26 eGFR AfricanAmerican >59 mL/min/1.73 Comments: Note: Persistent reduction for 3 months or more in an eGFR<60 mL/min/1.73 m2 defines CKD. Patients with eGFR values>/=60 mL/min/1.73 m2 may also have CKD if evidence of persistentproteinuria is (Normal) present. Additional information may be found [email or web address]. Sodium, Serum 141 mmol/L (Normal) Range: 135-145 eGFR 53 mL/min/1.73 (Abnormal) BUN 21 mg/dL (Normal) Range: 8-27 Creatinine, Serum 1.02 mg/dL (Abnormal) Range: 0.57-1.00 Glucose, Serum 92 mg/dL (Normal) Range: 65-99 54-Kgp-592701:44 CBC WITH MANUAL DIFF Comments: PATIENT WAS FASTINGPERFORMED BY: LabCoSaint Barnabas Medical CenterWhxeix3913 [facility] [id number] Information: [id number] (75206) Immature Grans (Abs) 0.0 {x10E3/uL} (Normal) Range: 0.0-0.1 Baso (Absolute) 0.1 {x10E3/uL} (Normal) Range: 0.0-0.2 Immature Granulocytes 0 % (Normal) Range: 0-1 Eos (Absolute) 0.3 {x10E3/uL} (Normal) Range: 0.0-0.4 Monocytes(Absolute) 0.4 {x10E3/uL} (Normal) Range: 0.1-1.0 Lymphs (Absolute) 2.5 {x10E3/uL} (Normal) Range: 0.7-4.5 Neutrophils (Absolute) 2.9 {x10E3/uL} (Normal) Range: 1.8-7.8 Basos 1 % (Normal) Range: 0-3 Eos 4 % (Normal) Range: 0-7 Lymphs 40 % (Normal) Range: 14-46 Monocytes 7 % (Normal) Range: 4-13 Neutrophils 48 % (Normal) Range: 40-74 MCHC 33.2 g/dL (Normal) Range: 32.0-36.0 Platelets 249 {x10E3/uL} (Normal) Range: 140-415 RDW 13.7 % (Normal) Range: 11.7-15.0 MCH 30.5 pg (Normal) Range: 27.0-34.0 MCV 92 fL (Normal) Range: 80-98 Hematocrit 41.9 % (Normal) Range: 34.0-44.0 Hemoglobin 13.9 g/dL (Normal) Range: 11.5-15.0 RBC 4.56 {x10E6/uL} (Normal) Range: 3.80-5.10 WBC 6.1 {x10E3/uL} (Normal) Range: 4.0-10.5 99-Cvk-117762:11 [facility] CAD Radiology Report See Note (Normal) Comments: Exam Number: [id number] MAMMOGRAPHY - BILATERAL SCREENING INDICATION:Routine annual screening examination. PERTINENT HISTORY:Non-contributory. TECHNIQUE:Digital examination. Mediolateral oblique (MLO) a nd craniocaudad(CC) views of both breasts were obtained. CAD was performed on thisstudy. COMPARISON:June 18, 2008 FINDINGS:The breast composition is composed of scattered fibroglandulardensities. T here are no dominant or spiculated masses or suspiciousmicrocalcifications. No other significant abnormalities are identified. IMPRESSION:Normal bilateral screening mammogram. Yearly follow-up recommen ded. ASSESSMENT CATEGORY:Category 2: Benign finding(s) Approximately 10% of breast cancers are not detected by mammography.A normal mammogram should not delay biopsy of a clinicallysuspicious abnormali ty.This addendum is being created for the purpose of attaching a ResultCode to this exam.ADDENDUM: [id number] HPBI/MDS Reported By: ELEANOR ERNANDEZ M.D. 1-Ygj-683431:01 TSH (40634) Comments: PATIENT NOT FASTINGPERFORMED BY: CB [facility] Nhucga6194 [facility] [id number] Information: [id number] TSH 0.474 {uIU/mL} (Normal) Range: 0.450-4.500 16-Apr-20108:21 Thin prep Pap (86122) Comments: of cuff, has had hysterectomy; Source.............VaginalLMP / Prev Treat...HystNo. of containers..01 CYTYC Thin Prep VialPATIENT NOT FASTINGPERFORMED BY: [facility] [address] [id number] Information: [id number] Note: PAPSMR (Normal) Comments: The Pap smear is a screening test designed to aid in the detection ofpremalignant and malignant conditions of the uterine cervix. It is not adiagnostic procedure and should not be used as the sole mean s of detectingcervical cancer. Both false-positive and false-negative reports do occur..The HPV DNA reflex criteria were not met with this specimen resulttherefore, no HPV testing was performed.. See Note . (Normal) DIAGNOSIS: SPRCS (Normal) Comments: NEGATIVE FOR INTRAEPITHELIAL LESION AND MALIGNANCY.Satisfactory for evaluation. No endocervical cells are present. This isconsistent with a history of hysterectomy.V72.31 ; Routine gynecological exami Davion Mosley [employer] (ASCP) 15-Kab-021558:57 ABDOMEN/PELVIS W/WO CONTRAST Radiology Report See Note (Normal) Comments: Exam Number: [id number] CLINICAL:Hydronephrosis CT ABDOMEN AND PELVIS WITHOUT / WITH CONTRAST TECHNIQUE:Transaxial images were obtained from the dome of the diaphragm tothe symphysis pubis with oral con trast. 100 ml of Isovue-300contrast was administered intravenously. COMPARISON:December 17, 2009 FINDINGS:The visualized lung bases are unremarkable. Normal unenhanced and enhanced liver. Normal gallbladder and biliary system. Normal unenhanced and enhanced spleen. Normal pancreas. Normal bilateral adrenal glands. Normal size of the right kidney. Normal excretion of contrastmaterial of the right kidney. There is no right renal mass. Thereare no right renal calculi. There is no right hydronephrosis.Normal visualized right ureter. Normal size of the left kidney. Normal excretion of contrastmaterial o f the left kidney. There is no left renal mass. Thereare no left renal calculi. There is no left hydronephrosis. Normalvisualized left ureter. Normal visualized stomach. Normal small intestine. Th ere are smalldiverticula in the sigmoid colon with no evidence for associatedinflammation The region of the appendix is normal. Normal mesentery and peritoneum. There is no free fluid in the abdomen. T here is no free air in theabdomen. Normal retroperitoneum. There are scattered atheromatous calcifications in the abdominalaorta and iliac vessels Normal visualized pelvic arteries. Normalinferior ve na cava. Normal opacified urinary bladder. There is no pelvic mass lesion. There is no pelvic fluid. There isno pelvic lymphadenopathy. There is absence of the uterusconsistent with a prior hysterect caren. Normal abdominal wall. Degenerative changes in the visualized spine IMPRESSION:Interval resolution of both the inflammatory process previously seencyst in the pelvis to the right of midline as wel l as of theright-sided hydronephrosis. Reported By: SAVANA AVELAR M.D. 5-Vwj-023095:44 Urinalysis, Office (38162) UA - LEUKOCYTE ESTERASE Negative (Normal) UA - NITRITE Negative (Normal) URINE UROBILINGN REYNA TIMED Normal mg/dL (Normal) UA - PROTEIN Negative mg/dL (Normal) UA - PH 6.5 (Normal) UA - BLOOD Hemolyzed Trace (Normal) UA - SPECIFIC GRAVITY 1.010 (Normal) UA - KETONES Negative mg/dL (Normal) UA - BILIRUBIN Negative (Normal) UA - GLUCOSE Negative (Normal) 14-Vcd-214423:45 KIDNEY (HP) Radiology Report See Note (Normal) Comments: Exam Number: [id number] CLINICAL:The patient is a 69-year-old female who had an appendectomy done 5weeks ago. The patient has had problems since. The patientcomplains of pain in the right lower quadran t. The patient has ahistory of hydronephrosis. RENAL ULTRASOUND TECHNIQUE:The kidneys and bladder were evaluated at real-time sonographicallywith static ramos scale images obtained for image documentati on. COMPARISON:None. FINDINGS:Normal location of the right kidney. Normal length of the rightkidney. The right kidney measures 9 x 4.1 x 4 cm. There isparenchymal thinning of the right kidney. The re is no right renalmass or cyst. There are no right renal calculi. There is mild tomoderate right hydronephrosis. Normal location of the left kidney. Normal length of the leftkidney. The left kidn ey measures 9.1 x 4.5 x 4.9 cm.. There is nofocal parenchymal thinning of the left kidney. There is no leftrenal mass or cyst. There are no left renal calculi. There is noleft hydronephrosis. Urina ry bladder empty and not seen. The visualized aorta and IVC are not seen. IMPRESSION:There is mild to moderate hydronephrosis seen on the right. Thereis no hydronephrosis Reported By: ELEANOR ERNANDEZ M.D. 50-Iom-942819:14 BMP BUN/CRE 17.8 {RATIO} (Normal) Range: 10-20 CA 9.2 mg/dL (Normal) Range: 8.5-10.1 CL 104 mmol/L (Normal) Range: 98-107 CO2 30.0 mmol/L (Normal) Range: 21.0-32.0 GAP 6 (Normal) Range: 5-15 K 4.7 mmol/L (Normal) Range: 3.5-5.1 NA 140 mmol/L (Normal) Range: 136-145 BUN 16 mg/dL (Normal) Range: 7-18 CREAT,SERUM 0.9 mg/dL (Normal) Range: 0.6-1.0 EST GFR 66 mL/min (Normal) EST GFR - AA 80 mL/min (Normal) GLU 90 mg/dL (Normal) Range: 70-110 23-Gpv-673588:52 Iron and TIBC Comments: PATIENT NOT FASTINGPERFORMED BY: [employer] Mudsup2946 [facility] [id number] Iron Saturation 21 % (Normal) Range: 15-55 Iron, Serum 55 ug/dL (Normal) Range: 35-155 UIBC 202 ug/dL (Normal) Range: 150-375 Iron Bind.Cap.(TIBC) 257 ug/dL (Normal) Range: 250-450 64-Mlg-945255:52 Renal function Panel (75430) Comments: PATIENT NOT FASTINGPERFORMED BY: [employer] Ztkjcd5784 [facility] [id number] Albumin, Serum 3.7 g/dL (Normal) Range: 3.5-4.8 Phosphorus, Serum 3.7 mg/dL (Normal) Range: 2.5-4.5 Calcium, Serum 10.0 mg/dL (Normal) Range: 8.6-10.2 Carbon Dioxide, Total 28 mmol/L (Normal) Range: 20-32 Chloride, Serum 103 mmol/L (Normal) Range: 97-108 BUN/Creatinine Ratio 15 (Normal) Range: 8-27 Creatinine, Serum 0.92 mg/dL (Normal) Range: 0.57-1.00 eGFR >59 mL/min/1.73 (Normal) eGFR AfricanAmerican >59 mL/min/1.73 Comments: Note: Persistent reduction for 3 months or more in an eGFR<60 mL/min/1.73 m2 defines CKD. Patients with eGFR values>/=60 mL/min/1.73 m2 may also have CKD if evidence of persistentproteinuria is (Normal) present. Additional information may be found [email or web address]. Potassium, Serum 5.0 mmol/L (Normal) Range: 3.5-5.2 Sodium, Serum 141 mmol/L (Normal) Range: 135-145 BUN 14 mg/dL (Normal) Range: 5-26 Glucose, Serum 91 mg/dL (Normal) Range: 65-99 88-Vvb-521568:52 Ferritin (96331) Comments: PATIENT NOT FASTINGPERFORMED BY: [facility] Gtbjmc9533 [facility] [id number] Ferritin, Serum 338 ng/mL (Abnormal) Range: 13-150 69-Qmz-872156:52 CBC with manual diff Comments: PATIENT NOT FASTINGPERFORMED BY: [place] 1411470 [facility] [id number] Information: [id number] (47258) Baso (Absolute) 0.0 {x10E3/uL} (Normal) Range: 0.0-0.2 Eos (Absolute) 0.2 {x10E3/uL} (Normal) Range: 0.0-0.4 Basos 0 % (Normal) Range: 0-3 Lymphs (Absolute) 2.9 {x10E3/uL} (Normal) Range: 0.7-4.5 Monocytes(Absolute) 0.4 {x10E3/uL} (Normal) Range: 0.1-1.0 Neutrophils (Absolute) 4.3 {x10E3/uL} (Normal) Range: 1.8-7.8 Eos 3 % (Normal) Range: 0-7 Lymphs 37 % (Normal) Range: 14-46 Monocytes 5 % (Normal) Range: 4-13 Neutrophils 55 % (Normal) Range: 40-74 Platelets 439 {x10E3/uL} (Abnormal) Range: 140-415 RDW 15.0 % (Normal) Range: 11.7-15.0 MCH 30.7 pg (Normal) Range: 27.0-34.0 MCHC 33.8 g/dL (Normal) Range: 32.0-36.0 Hematocrit 34.1 % (Normal) Range: 34.0-44.0 Hemoglobin 11.5 g/dL (Normal) Range: 11.5-15.0 MCV 91 fL (Normal) Range: 80-98 RBC 3.76 {x10E6/uL} (Abnormal) Range: 3.80-5.10 WBC 7.9 {x10E3/uL} (Normal) Range: 4.0-10.5 13-Mfr-481347:20 TSH (41993) Comments: PATIENT NOT FASTINGPERFORMED BY: [facility]6370 [facility] [id number] TSH 0.830 {uIU/mL} (Normal) Range: 0.450-4.500 75-Xbw-816092:20 CBC with manual diff Comments: PATIENT NOT FASTINGPERFORMED BY: LabCoBianca Ville 9973770 [facility] [id number] Information: [id number] (74171) Hematology Comments: Note: (Normal) Comments: Verified by microscopic examination. Baso (Absolute) 0.0 {x10E3/uL} (Normal) Range: 0.0-0.2 Eos (Absolute) 0.0 {x10E3/uL} (Normal) Range: 0.0-0.4 Monocytes(Absolute) 1.7 {x10E3/uL} (Abnormal) Range: 0.1-1.0 Basos 0 % (Normal) Range: 0-3 Lymphs (Absolute) 2.2 {x10E3/uL} (Normal) Range: 0.7-4.5 Neutrophils (Absolute) 17.7 {x10E3/uL} (Abnormal) Range: 1.8-7.8 Eos 0 % (Normal) Range: 0-7 Lymphs 10 % (Abnormal) Range: 14-46 Monocytes 8 % (Normal) Range: 4-13 Neutrophils 82 % (Abnormal) Range: 40-74 Platelets 494 {x10E3/uL} (Abnormal) Range: 140-415 Comments: Platelet count verified by examination of peripheral blood smear. RDW 14.4 % (Normal) Range: 11.7-15.0 MCH 30.7 pg (Normal) Range: 27.0-34.0 MCHC 33.4 g/dL (Normal) Range: 32.0-36.0 MCV 92 fL (Normal) Range: 80-98 Hematocrit 33.1 % (Abnormal) Range: 34.0-44.0 Hemoglobin 11.1 g/dL (Abnormal) Range: 11.5-15.0 RBC 3.60 {x10E6/uL} (Abnormal) Range: 3.80-5.10 WBC 21.6 {x10E3/uL} (Abnormal) Range: 4.0-10.5 63-Dxq-832527:58 Serum Protein Comments: PATIENT NOT FASTINGPERFORMED BY: LabCoSaint Barnabas Medical CenterFldoph9425 [facility] [id number] Information: ADD [id number] NO DRAW FEE Electrophoresis (SPEP) (43606) A/G Ratio 1.6 (Normal) Range: 0.7-2.0 Please note: SPRCS (Normal) Comments: Protein electrophoresis scan will follow via computer, mail, orcourier delivery. Inpdc-2-Tsnrwiht 0.2 g/dL (Normal) Range: 0.1-0.4 Vnztt-8-Xcypdhqn 0.6 g/dL (Normal) Range: 0.4-1.2 Beta Globulin 0.9 g/dL (Normal) Range: 0.6-1.3 Gamma Globulin 0.9 g/dL (Normal) Range: 0.5-1.6 Globulin, Total 2.6 g/dL (Normal) Range: 2.0-4.5 M-Slim Not Observed g/dL (Normal) Albumin 4.2 g/dL (Normal) Range: 3.2-5.6 Protein, Total, Serum 6.8 g/dL (Normal) Range: 6.0-8.5 68-Wvl-557922:58 VITAMIN B-12 (CYANOCOBALAMIN) Comments: PATIENT NOT FASTINGPERFORMED BY: BBE Rdrveb2396 [facility] [id number] (97970) Vitamin B12 300 pg/mL (Normal) Range: 211-911 01-Axt-044837:58 SED RATE ERYTHROCYTE (87840) Comments: PATIENT NOT FASTINGPERFORMED BY: BBEGallup Indian Medical CenterKwlxit6634 [facility] [id number] Sedimentation Rate-Westergren 2 mm/h (Normal) Range: 0-30 58-Cpv-131124:20 CBC With Differential/Platelet Comments: PATIENT WAS FASTINGPERFORMED BY: BBEGallup Indian Medical CenterPbvtpu3429 [facility] [id number] Baso (Absolute) 0.1 {x10E3/uL} (Normal) Range: 0.0-0.2 Eos (Absolute) 0.3 {x10E3/uL} (Normal) Range: 0.0-0.4 Monocytes(Absolute) 0.4 {x10E3/uL} (Normal) Range: 0.1-1.0 Basos 1 % (Normal) Range: 0-3 Eos 5 % (Normal) Range: 0-7 Lymphs (Absolute) 2.5 {x10E3/uL} (Normal) Range: 0.7-4.5 Neutrophils (Absolute) 2.2 {x10E3/uL} (Normal) Range: 1.8-7.8 Lymphs 46 % (Normal) Range: 14-46 Monocytes 7 % (Normal) Range: 4-13 Neutrophils 41 % (Normal) Range: 40-74 MCHC 34.4 g/dL (Normal) Range: 32.0-36.0 Platelets 235 {x10E3/uL} (Normal) Range: 140-415 RDW 13.9 % (Normal) Range: 11.7-15.0 Hematocrit 40.4 % (Normal) Range: 34.0-44.0 MCH 31.4 pg (Normal) Range: 27.0-34.0 MCV 91 fL (Normal) Range: 80-98 Hemoglobin 13.9 g/dL (Normal) Range: 11.5-15.0 RBC 4.43 {x10E6/uL} (Normal) Range: 3.80-5.10 WBC 5.4 {x10E3/uL} (Normal) Range: 4.0-10.5 77-Sgp-696550:20 Comp. Metabolic Panel (14) Comments: PATIENT WAS FASTINGPERFORMED BY: LabCoSaint Barnabas Medical CenterZrqnay3478 [facility] [id number] ALT (SGPT) 19 [iU]/L (Normal) Range: 0-40 AST (SGOT) 14 [iU]/L (Normal) Range: 0-40 A/G Ratio 1.6 (Normal) Range: 1.1-2.5 Alkaline Phosphatase, S 83 [iU]/L (Normal) Range: 25-165 Bilirubin, Total 0.3 mg/dL (Normal) Range: 0.1-1.2 Albumin, Serum 4.1 g/dL (Normal) Range: 3.5-4.8 Globulin, Total 2.6 g/dL (Normal) Range: 1.5-4.5 Protein, Total, Serum 6.7 g/dL (Normal) Range: 6.0-8.5 Calcium, Serum 10.2 mg/dL (Normal) Range: 8.6-10.2 Carbon Dioxide, Total 24 mmol/L (Normal) Range: 20-32 Chloride, Serum 106 mmol/L (Normal) Range: 97-108 BUN/Creatinine Ratio 25 (Normal) Range: 8-27 eGFR AfricanAmerican >59 mL/min/1.73 Comments: Note: Persistent reduction for 3 months or more in an eGFR<60 mL/min/1.73 m2 defines CKD. Patients with eGFR values>/=60 mL/min/1.73 m2 may also have CKD if evidence of persistentproteinuria is (Normal) present. Additional information may be found [email or web address]. Potassium, Serum 4.4 mmol/L (Normal) Range: 3.5-5.2 Sodium, Serum 138 mmol/L (Normal) Range: 135-145 BUN 24 mg/dL (Normal) Range: 5-26 Creatinine, Serum 0.95 mg/dL (Normal) Range: 0.57-1.00 eGFR 58 mL/min/1.73 (Abnormal) Glucose, Serum 95 mg/dL (Normal) Range: 65-99 :20 Lipid Panel With LDL/HDL Comments: PATIENT WAS FASTINGPERFORMED BY: [employer] [facility] [place] [id number] Ratio HDL Cholesterol 66 mg/dL (Normal) Comments: According to ATP-III Guidelines, HDL-C >59 mg/dL is considered anegative risk factor for CHD. LDL Cholesterol Calc 150 mg/dL Range: 0-99 (Abnormal) LDL/HDL Ratio 2.3 {ratio_units} Range: 0.0-3.2 (Normal) Triglycerides 108 mg/dL (Normal) Range: 0-149 VLDL Cholesterol Hector 22 mg/dL (Normal) Range: 5-40 Cholesterol, Total 238 mg/dL Range: 100-199 (Abnormal) TSH 1.050 {uIU/mL} Comments: PATIENT WAS FASTINGPERFORMED BY: [employer] [facility] [id number] :20 (Normal) Range: 0.450-4.500 :50 CBCD,SMEAR DIFF BAND 1 % (Normal) Range: 0-5 CELLS COUNTED 100 (Normal) EOS 6 % (Abnormal) Range: 0-5 HCT 40.0 % (Normal) Range: 37-47 HGB 13.9 g/dL (Normal) Range: 12.0-16.0 LYMPH 44 % (Abnormal) Range: 19-41 MCH 31.5 pg (Normal) Range: 27.0-32.0 MCHC 34.7 g/dL (Normal) Range: 32-36 MCV 90.8 fL (Normal) Range: 81-99 MONOCYTE 7 % (Normal) Range: 0-10 PLT 268 K/mm3 (Normal) Range: 150-450 PLT EST SeeNote (Normal) Comments: Result: ADEQUATE RBC 4.41 {M/mm3} (Normal) Range: 4.2-5.4 RDW 14.5 % (Normal) Range: 11.6-14.6 RED CELL MORPH SeeNote {NORMAL} (Normal) Comments: Result: NORM C+C SEGS 42 % (Abnormal) Range: 47-70 WBC 6.7 K/mm3 (Normal) Range: 4.4-11.0 :50 COMP METABOLIC A/G 1.1 {RATIO} (Normal) Range: 0.9-2.4 ALB 3.7 g/dL (Normal) Range: 3.4-5.0 ALK P 91 U/L (Normal) Range: 50-136 ALT 34 U/L (Normal) Range: 30-65 AST 20 U/L (Normal) Range: 15-37 BUN 20 mg/dL (Abnormal) Range: 7-18 BUN/CRE 20.0 {RATIO} (Normal) Range: 10-20 CA 9.2 mg/dL (Normal) Range: 8.5-10.1 CL 105 mmol/L (Normal) Range: 98-107 CO2 30.2 mmol/L (Normal) Range: 21.0-32.0 CREAT,SERUM 1.0 mg/dL (Normal) Range: 0.6-1.0 EST GFR 58 mL/min (Abnormal) EST GFR - AA 70 mL/min (Normal) GAP 5 (Normal) Range: 5-15 GLOB 3.4 g/dL (Normal) Range: 2.7-4.2 GLU 93 mg/dL (Normal) Range: 70-110 K 4.2 mmol/L (Normal) Range: 3.5-5.1 NA 140 mmol/L (Normal) Range: 136-145 T BILI 0.36 mg/dL (Normal) Range: 0.00-1.00 T PROT 7.1 g/dL (Normal) Range: 6.4-8.2 :50 LIPID CHOL 239 mg/dL (Abnormal) Comments: <200 mg/dL Desirable 200-240 mg/dL Borderline >240 mg/dL High Risk HDL 60 mg/dL (Normal) Comments: Reference Range HDL <40 mg/dL Low HDL Cholesterol HDL >or= 60 mg/dL High HDL Cholesterol LDL 150 mg/dL (Abnormal) Range: 0-130 TRIG 147 mg/dL (Normal) Comments: Serum Triglycerides Reference Interval Normal <150 mg/dL Borderline high 150 - 199 mg/dL High 200 - 499 mg/dL Very High > or = 500 mg/dL VLDL 29 mg/dL (Normal) Range: 5-40 :50 TSH 1.25 {uIU/mL} (Normal) Range: 0.34-4.82 :41 BILAT SCRN DIGITAL & CAD Radiology Report See Note (Normal) Comments: Exam Number: [id number] MAMMOGRAM, BILATERAL SCREENING DIGITAL AND CAD HISTORYRoutine screening. Full field digital images were obtained in mediolateral oblique,craniocaudal and cleavage projections. CA D images were reviewed. The current study is compared to the examinations of February 2004,May 2005 and March 2007. There is moderately dense fibroglandular parenchyma present. There isno skin thicken ing or retraction, architectural distortion, or clusterof suspicious microcalcifications. There is an asymmetric density inthe outer right breast. Although this was not seen on the mostprevious studie s, it is identified on the examination of February 26, 2004and is unchanged. If there is no suspicious palpable abnormality,followup mammogram in 1 year is recommended. IMPRESSIONThere is no radiographic e vidence of malignancy identified. FINAL ASSESSMENTBenign findings. BIRADS Category 2. A letter regarding these results has been sent to the patient. This interpretation was rendered by a radiologist c ertified under theMammography Quality Standards Act of 1992 (MQSA). The mammograms werealso examined with computer-aided detection software ([employer], [employer], [employer] Reported By: ELEANOR ERNANDEZ M.D. :28 CBCD,SMEAR DIFF CELLS COUNTED 100 (Normal) EOS 5 % (Normal) Range: 0-5 HCT 39.8 % (Normal) Range: 37-47 HGB 13.5 g/dL (Normal) Range: 12.0-16.0 LYMPH 50 % (Abnormal) Range: 19-41 MCH 30.2 pg (Normal) Range: 27.0-32.0 MCHC 33.9 g/dL (Normal) Range: 32-36 MCV 89.1 fL (Normal) Range: 81-99 MONOCYTE 4 % (Normal) Range: 0-10 PLT 260 K/mm3 (Normal) Range: 150-450 PLT EST SeeNote (Normal) Comments: Result: ADEQUATE RBC 4.47 {M/mm3} (Normal) Range: 4.2-5.4 RDW 13.4 % (Normal) Range: 11.6-14.6 RED CELL MORPH SeeNote {NORMAL} (Normal) Comments: Result: NORM C+C SEGS 41 % (Abnormal) Range: 47-70 WBC 5.4 K/mm3 (Normal) Range: 4.4-11.0 43-Ppo-94560:28 COMP METABOLIC A/G 1.2 {RATIO} (Normal) Range: 0.9-2.4 ALB 3.8 g/dL (Normal) Range: 3.4-5.0 ALK P 91 U/L (Normal) Range: 50-136 ALT 38 [iU]/L (Normal) Range: 30-65 AST 27 U/L (Normal) Range: 15-37 BUN 24 mg/dL (Abnormal) Range: 7-18 BUN/CRE 30.0 {RATIO} (Abnormal) Range: 10-20 CA 9.1 mg/dL (Normal) Range: 8.5-10.1 CL 103 mmol/L (Normal) Range: 98-107 CO2 33.7 mmol/L (Abnormal) Range: 21.0-32.0 Comments: Please Note Reference Interval Change CREAT,SERUM 0.8 mg/dL (Normal) Range: 0.6-1.0 GAP 2 (Abnormal) Range: 5-15 GLOB 3.2 g/dL (Normal) Range: 2.7-4.2 Comments: Please Note Reference Interval Change GLU 96 mg/dL (Normal) Range: 70-110 K 4.3 mmol/L (Normal) Range: 3.5-5.1 NA 139 mmol/L (Normal) Range: 136-145 T BILI 0.41 mg/dL (Normal) Range: 0.00-1.00 T PROT 7.0 g/dL (Normal) Range: 6.4-8.2 :28 LIPID CHOL 222 mg/dL (Abnormal) Comments: <200 mg/dL Desirable 200-240 mg/dL Borderline >240 mg/dL High Risk HDL 60 mg/dL (Normal) Comments: Reference Range HDL <40 mg/dL Low HDL Cholesterol HDL >or= 60 mg/dL High HDL Cholesterol LDL 141 mg/dL (Abnormal) Range: 0-130 TRIG 107 mg/dL (Normal) Comments: Serum Triglycerides Reference Interval Normal <150 mg/dL Borderline high 150 - 199 mg/dL High 200 - 499 mg/dL Very High > or = 500 mg/dL VLDL 21 mg/dL (Normal) Range: 5-40 :28 TSH 0.38 {uIU/mL} (Normal) Range: 0.34-4.82 3-Sbg-188562:04 Rapid Strep Test, Office ([id number]) Rapid Strep Test, Office Negative (Normal) 70-Dav-998152:34 BILAT SCRN DIGITAL & CAD Radiology Report See Note (Normal) Comments: Exam Number: [id number] MAMMOGRAM, BILATERAL SCREENING DIGITAL AND CAD HISTORYRoutine screening. Full field digital images were obtained in mediolateral oblique andcraniocaudal projections. CAD images w ere reviewed. The current study is compared to the examinations of September 2001,November 2002, February 2004 and May 2005. There is moderately dense fibroglandular parenchyma present. There isno skin t hickening or retraction, architectural distortion, or clusterof suspicious microcalcifications. There are areas of asymmetricparenchymal density in the retroareolar areas of the breast. Thesefindings are stable. If there is no suspicious palpable abnormality,followup mammogram in 1 year is recommended. IMPRESSIONThere is no radiographic evidence of malignancy identified. FINAL ASSESSMENTBenign fi ndings. BIRADS Category 2. A letter regarding these results has been sent to the patient. This interpretation was rendered by a radiologist certified under theMammography Quality Standards Act of 1992 (MQSA). The mammograms werealso examined with computer-aided detection software ([employer], [employer] Reported By: ELEANOR ERNANDEZ M.D. 21-Tut-223498:31 DEXA BONE DENSITY STUDY () Radiology Report See Note (Normal) Comments: Exam Number: [id number] BONE DENSITOMETRY HISTORYPostmenopausal. TECHNIQUE Bone densitometry of the lumbar spine and left hip was performed. Thebest criteria for evaluation of osteoporosis is the T- value whichrepresents the comparison of the patient's bone mass to an expectedpeak bone mass. For most patients, the mean T-value of L1 through L4and the T-value of the total left hip are most useful. FINDINGSIn this patient, the mean T-value of L1 through L4 is -0.1, which isnormal. Digital lateral view for evaluation of vertebral deformity only suggests slight loss of height of mid thoracic verte bral bodies.The bone mineral density is measured at 0.4% less than in 2002. The T-value of the left femoral neck is -0.6, which is normal.The T-value of the total left hip is -0.2, which is normal.Bone mineral density of the total left hip is measured at 1.6% lessthan in 2002. IMPRESSIONBone densitometry of the lumbar spine and total left hip is withinnormal limits. Reported By: ELEANOR ERNANDEZ M.D. 56-Dya-071192:39 COMP METABOLIC A/G 1.1 {RATIO} (Normal) Range: 0.9-2.4 ALB 3.5 g/dL (Normal) Range: 3.4-5.0 ALK P 98 U/L (Normal) Range: 50-136 ALT 44 [iU]/L (Normal) Range: 30-65 AST 19 U/L (Normal) Range: 15-37 BUN 21 mg/dL (Abnormal) Range: 7-18 BUN/CRE 21.0 {RATIO} (Abnormal) Range: 10-20 CA 8.9 mg/dL (Normal) Range: 8.5-10.1 CL 105 mmol/L (Normal) Range: 98-107 CO2 30.8 mmol/L (Abnormal) Range: 22.0-29.0 CREAT,SERUM 1.0 mg/dL (Normal) Range: 0.6-1.0 GAP 5 (Normal) Range: 5-15 GLOB 3.1 g/dL (Normal) Range: 2.3-3.5 GLU 90 mg/dL (Normal) Range: 70-110 K 4.3 mmol/L (Normal) Range: 3.5-5.1 NA 141 mmol/L (Normal) Range: 136-145 T BILI 0.32 mg/dL (Normal) Range: 0.00-1.00 T PROT 6.6 g/dL (Normal) Range: 6.4-8.2 :39 LIPID CHOL 213 mg/dL (Abnormal) Comments: <200 mg/dL Desirable 200-240 mg/dL Borderline >240 mg/dL High Risk HDL 57 mg/dL (Normal) Comments: Reference Range HDL <40 mg/dL Low HDL Cholesterol HDL >or= 60 mg/dL High HDL Cholesterol LDL 138 mg/dL (Abnormal) Range: 0-130 TRIG 88 mg/dL (Normal) Comments: Serum Triglycerides Reference Interval Normal <150 mg/dL Borderline high 150 - 199 mg/dL High 200 - 499 mg/dL Very High > or = 500 mg/dL VLDL 18 mg/dL (Normal) Range: 5-40 :39 TSH 0.43 {uIU/mL} (Normal) Range: 0.34-4.82 :26 BMP BUN 23 mg/dL (Abnormal) Range: 7-18 BUN/CRE 25.6 {RATIO} (Abnormal) Range: 10-20 CA 9.1 mg/dL (Normal) Range: 8.5-10.1 CL 107 mmol/L (Normal) Range: 98-107 CO2 33.6 mmol/L (Abnormal) Range: 22.0-29.0 CREAT,SERUM 0.9 mg/dL (Normal) Range: 0.6-1.0 GAP -2 (Abnormal) Range: 5-15 GLU 89 mg/dL (Normal) Range: 70-110 K 4.8 mmol/L (Normal) Range: 3.5-5.1 NA 139 mmol/L (Normal) Range: 136-145 Plan of Care Name Dates Details Instructions Asthma, mild intermittent : Follow up if no improvement or if symptoms worsen Indication: Asthma, mild intermittent Nonsmoker : Eprescribed prescriptions (G8553) Indication: Nonsmoker BMI 30.0-30.9,adult : Follow up in 3 months Indication: BMI 30.0-30.9,adult Right leg pain : Eprescribed prescriptions (G8553) Indication: Right leg pain Nonsmoker : Follow up in 1 week Indication: Nonsmoker Hypertensive heart disease : Eprescribed prescriptions (G8553) Indication: Hypertensive heart disease Nonsmoker : Follow up in 3 months Indication: Nonsmoker Nonsmoker : Eprescribed prescriptions (G8553) Indication: Nonsmoker BMI 30.0-30.9,adult : Follow up if no improvement or if symptoms worsen Indication: BMI 30.0-30.9,adult Osteopenia : Reviewed Diagnostic Tests Indication: Osteopenia Osteopenia : Reviewed Lab Indication: Osteopenia Osteopenia : Eprescribed prescriptions (G8553) Indication: Osteopenia Poison iveth : Eprescribed prescriptions (G8553) Indication: Poison iveth Post-menopausal : Follow up in 3 months Indication: Post-menopausal BMI 30.0-30.9,adult : Eprescribed prescriptions (G8553) Indication: BMI 30.0-30.9,adult Type B influenza : Follow up if no improvement or if symptoms worsen Indication: Type B influenza BMI 30.0-30.9,adult : Eprescribed prescriptions (G8553) Indication: BMI 30.0-30.9,adult BMI 30.0-30.9,adult : Follow up in 3 months Indication: BMI 30.0-30.9,adult Atrial fibrillation : Eprescribed prescriptions (G8553) Indication: Atrial fibrillation Varicose vein : Follow up in 3 months Indication: Varicose vein Atrial fibrillation : Reviewed Lab Indication: Atrial fibrillation Atrial fibrillation : Follow up in 3 months Indication: Atrial fibrillation Hypertension, essential, benign : Eprescribed prescriptions (G8553) Indication: Hypertension, essential, benign Hypercholesterolemia : Follow up in 3 months Indication: Hypercholesterolemia Hypertension, essential, benign : Eprescribed prescriptions (G8553) Indication: Hypertension, essential, benign Hypertension, essential, benign : Eprescribed prescriptions (G8553) Indication: Hypertension, essential, benign Asthma, mild intermittent : Follow up in 3 months for Gen Med Indication: Asthma, mild intermittent Asthma, mild intermittent : Follow up if no improvement or if symptoms worsen Indication: Asthma, mild intermittent Sciatica : Reviewed Diagnostic Tests Indication: Sciatica Sciatica : Reviewed Lab Indication: Sciatica Left knee pain : Reviewed Lab Indication: Left knee pain Left knee pain : Reviewed Diagnostic Tests Indication: Left knee pain Sciatica : Eprescribed prescriptions (G8553) Indication: Sciatica LOW BACK PAIN (Renamed from LBP (low back pain)) : Follow up in 2 weeks Indication: LOW BACK PAIN (Renamed from LBP (low back pain)) Left knee pain : Eprescribed prescriptions (G8553) Indication: Left knee pain SOB (shortness of breath) on exertion : Follow up in 3 months Indication: SOB (shortness of breath) on exertion Cold virus : Eprescribed prescriptions (G8553) Indication: Cold virus Hypothyroidism : Reviewed Lab Indication: Hypothyroidism Hypertension, essential, benign : Reviewed Lab Indication: Hypertension, essential, benign Need for prophylactic vaccination (Renamed from Need for immunization against influenza) : Follow up in 2 months Indication: Need for prophylactic vaccination (Renamed from Need for immunization against influenza) Bleeding gums : Follow up - Make appt after diagnostic tests Indication: Bleeding gums Bronchitis : Follow up if no improvement or if symptoms worsen Indication: Bronchitis LOW BACK PAIN (Renamed from LBP (low back pain)) : Follow up in 1 week Indication: LOW BACK PAIN (Renamed from LBP (low back pain)) Need for prophylactic vaccination and inoculation against influenza : Follow up if no improvement or if symptoms worsen Indication: Need for prophylactic vaccination and inoculation against influenza Need for prophylactic vaccination and inoculation against influenza : Flu (Influenza) *: flu Indication: Need for prophylactic vaccination and inoculation against influenza Need for prophylactic vaccination and inoculation against influenza : Flu (Influenza) *: flu shot Indication: Need for prophylactic vaccination and inoculation against influenza Encounter for Medicare annual wellness exam : fall reduction handout Indication: Encounter for Medicare annual wellness exam Encounter for Medicare annual wellness exam : elderly packet given Indication: Encounter for Medicare annual wellness exam Encounter for Medicare annual wellness exam : advance planning information Indication: Encounter for Medicare annual wellness exam Encounter for Medicare annual wellness exam : *Weight Loss Discussion Indication: Encounter for Medicare annual wellness exam Varicose vein : Follow up if no improvement or if symptoms worsen Indication: Varicose vein Varicose vein : Eprescribed prescriptions (G8553) Indication: Varicose vein Asthma, mild intermittent : Follow up if no improvement or if symptoms worsen Indication: Asthma, mild intermittent Pharyngitis, acute : Sore throat: diagnosis and treatment Indication: Pharyngitis, acute Cerumen impaction : Follow up if no improvement or if symptoms worsen Indication: Cerumen impaction Bronchitis : Cough Medicines, Nonprescription: cough Indication: Bronchitis Need for prophylactic vaccination and inoculation against influenza : Flu (Influenza) *: flu shot Indication: Need for prophylactic vaccination and inoculation against influenza Varicose vein : Follow up in 6 months Indication: Varicose vein Hypercholesterolemia : Reviewed Diagnostic Tests Indication: Hypercholesterolemia Asthma, mild intermittent : Reviewed Diagnostic Tests Indication: Asthma, mild intermittent Hypothyroidism : Reviewed Lab Indication: Hypothyroidism Hypertensive heart disease : Follow up in 3 months Indication: Hypertensive heart disease Hypothyroidism : *Colon Cancer Screening Indication: Hypothyroidism Bronchitis : *URI Treatment Indication: Bronchitis Bronchitis : *URI Symptoms Indication: Bronchitis Bronchitis : *Antibiotic Usage Education - Female Indication: Bronchitis Hypothyroidism : Follow up in 3 months Indication: Hypothyroidism Hypercholesterolemia : Reviewed Lab Indication: Hypercholesterolemia Hypothyroidism : Follow up in 3 weeks Indication: Hypothyroidism Hypertensive heart disease : Follow up in 3 months with [facility] Indication: Hypertensive heart disease Hematuria, unspecified : FOLLOW UP IN 3 MONTHS [facility] Indication: Hematuria, unspecified Abnormal blood chemistry : FOLLOW UP IN 3 MONTHSfor gen med follow up Indication: Abnormal blood chemistry Fatigue : FOLLOW UP IN 2 WEEKS Indication: Fatigue Fatigue : *fatigue education Indication: Fatigue Well woman exam : SELF BREAST EXAM Indication: Well woman exam Well woman exam : *Colon Cancer Screening Indication: Well woman exam Well woman exam : *Well Female Maintenance (KF) Indication: Well woman exam Well woman exam : Pap/Pelvic/Bimanual/Rectal/Breast Exam was done. Indication: Well woman exam Hydronephrosis : Follow up for Gen Med in Sep 2010 make apt [facility] per pt request Indication: Hydronephrosis Hydronephrosis : Follow up for well woman with [facility] per pt request Indication: Hydronephrosis Anemia : FOLLOW UP IN 2 WEEKS January 07 by [facility] Indication: Anemia Abdominal pain, acute, generalized : FOLLOW UP IN 1 WEEK with [facility] Indication: Abdominal pain, acute, generalized Diarrhea : Reviewed Lab Indication: Diarrhea Diarrhea : Reviewed Diagnostic Tests Indication: Diarrhea Diarrhea : *Abd Pain Red Flags Indication: Diarrhea Diarrhea : Diarrhea Education Indication: Diarrhea Hypercholesterolemia : Reviewed Lab Indication: Hypercholesterolemia Hypertension, essential, benign : Diet, Exercise, and Wt loss Indication: Hypertension, essential, benign Hypertension, essential, benign : HTN/CAD Red Flags Indication: Hypertension, essential, benign Hypercholesterolemia : CHOLESTEROL MGMT. Indication: Hypercholesterolemia Hypercholesterolemia : *Cholesterol - Nonprescription Treatment Indication: Hypercholesterolemia Hypercholesterolemia : *Cholesterol - Medication Side Effects Indication: Hypercholesterolemia Acute sinusitis, unspecified : *URI Treatment Indication: Acute sinusitis, unspecified Acute sinusitis, unspecified : Antibiotic Usage Education - Female Indication: Acute sinusitis, unspecified Acute sinusitis, unspecified : URI Symptoms Indication: Acute sinusitis, unspecified Acute sinusitis, unspecified : *URI Treatment Indication: Acute sinusitis, unspecified Acute sinusitis, unspecified : Antibiotic Usage Education - Female Indication: Acute sinusitis, unspecified Acute sinusitis, unspecified : URI Symptoms Indication: Acute sinusitis, unspecified Pharyngitis, acute : *URI Treatment Indication: Pharyngitis, acute Pharyngitis, acute : Sore throat: diagnosis and treatment Indication: Pharyngitis, acute Hypertensive heart disease : HTN and Decongestants Indication: Hypertensive heart disease Hypertensive heart disease : Continue Current Prescription(s) Indication: Hypertensive heart disease Hypertensive heart disease : BP MONITORING - SELF Indication: Hypertensive heart disease Pharyngitis, acute : *URI Treatment Indication: Pharyngitis, acute Pharyngitis, acute : Sore throat: diagnosis and treatment Indication: Pharyngitis, acute Well woman exam : Self Breast Exam Education Indication: Well woman exam Well woman exam : Shingles Vaccine Education 2005 Indication: Well woman exam Hypercholesterolemia : FOLLOW UP IN 6 MONTHS Indication: Hypercholesterolemia Bronchitis : Antibiotic Usage Education - Female Indication: Bronchitis Bronchitis : URI Symptoms Indication: Bronchitis Planned Observations Metabolic Panel, Comprehensive ([id number])Indication: Hypercholesterolemia On: 3-Uii-168008:52 Request Comments: Jun 2018 LIPID PANEL ([id number])Indication: Hypercholesterolemia On: 5-Tdi-452837:51 Request Comments: Jun 2018 URINALYSIS ([id number])Indication: Hypertension, essential, benign On: 45-Nkh-520323:52 Request MICROALBUMIN: CREATININE RATIO ([id number]) AND (27757)Indication: Hypertension, essential, benign On: 43-Dyn-863903:52 Request Metabolic Panel, Comprehensive (39003)Indication: Hypertension, essential, benign On: 56-Imv-460964:50 Request Comments: send to [facility] CBC, Platelets & Auto Diff ([id number])Indication: Hypertension, essential, benign On: 63-Wku-240537:50 Request Comments: send to [facility] TSH (23857)Indication: Hypothyroidism On: 02-Tnl-202647:50 Request Comments: send to [facility] LIPID PANEL (64342)Indication: Hypercholesterolemia On: 88-Uit-926347:50 Request Comments: send to [facility] URINALYSIS (32874)Indication: Hypertension, essential, benign On: 7-Wcy-492861:03 Request Comments: today MICROALBUMIN: CREATININE RATIO (33112) AND (40838)Indication: Hypertension, essential, benign On: 0-Sjt-860787:03 Request Comments: today TSH (27569)Indication: Hypothyroidism On: 2-Sfr-028688:03 Request Comments: Jul 2017 MICROALBUMIN: CREATININE RATIO ([id number]) AND (90361)Indication: Hypertension, essential, benign On: 99-Mkv-439962:51 Request Comments: Mar 2017 URINALYSIS ([id number])Indication: Hypertension, essential, benign On: 53-Adt-511024:51 Request Comments: Mar 2017 TSH (31263)Indication: Hypertension, essential, benign On: 34-Gnu-270590:51 Request Comments: Mar 2017 CBC, Platelets & Auto Diff ([id number])Indication: Hypertension, essential, benign On: 32-Tud-126472:51 Request Comments: Mar 2017 Metabolic Panel, Comprehensive (60900)Indication: Hypertension, essential, benign On: 71-Ekw-359118:51 Request TSH (THYROID STIMULATING HORMONE) (03238)Indication: Hypothyroidism On: 45-Kke-486015:53 Request HEPATIC FUNCTION PANEL (42284)Indication: Hypertension, essential, benign On: 07-Gzk-031058:47 Request VITAMIN B12 AND FOLATES (02923)Indication: Vitamin B 12 deficiency On: 9-Rwo-167852:52 Request CALCIFEDIOL (49781)Indication: DEFICIENCY, VITAMIN D NOS On: 8-Lnh-538636:52 Request Urinalysis, Office (63732)Indication: Hematuria, unspecified On: 30-Rqp-665011:35 Request MICROALBUMIN URINE QUANT (17825)Indication: Hypertensive heart disease On: 80-Cuq-124682:25 Request FECAL OCCULT HGB ASSAY- tubes sent home (69884)Indication: Well woman exam On: 2-Lov-342245:51 Request OCCULT BLOOD FECES SCREEN- card done in office (78719)Indication: Well woman exam On: 8-Vlh-848200:51 Request Renal function Panel (68735)Indication: Hydronephrosis On: 4-Rgo-975442:22 Request Iron (89946)Indication: Anemia On: 29-You-964468:39 Request Iron Binding Capacity (TIBC) (65695)Indication: Anemia On: 88-Gye-516990:39 Request OVA & PARASITE DIR SMEAR (97707)Indication: Diarrhea On: 23-Dhv-793052:50 Request OCCULT BLOOD FECES SCREEN (57927)Indication: Diarrhea On: 33-Wpy-547683:50 Request LEUKOCYTE COUNT, FECAL (65979)Indication: Diarrhea On: 89-Oyi-609647:50 Request C-DIFFICILE, STOOL (50773)Indication: Diarrhea On: 24-Ayf-273647:50 Request LORNA CULTURE-STOOL (99502)Indication: Diarrhea On: 83-Emx-231000:50 Request HEPATIC FUNCTION PANEL (32397)Indication: Hypercholesterolemia On: 62-Ptn-042915:46 Request Lipid Panel (76260)Indication: Hypercholesterolemia On: 06-Apc-829969:46 Request Comments: in three months (approximately) TSH (71256)Indication: Hypothyroidism On: 87-Hrn-308667:06 Request METABOLIC PANEL, COMPREHENSIVE (20125)Indication: Hypertensive heart disease On: 91-Knw-616204:06 Request LIPID PANEL (06523)Indication: Hypertensive heart disease On: 83-Etr-056798:06 Request CBC WITH MANUAL DIFF (68108)Indication: Hypertensive heart disease On: 69-Cgb-754768:06 Request LORNA CULTURE-OTHER (67569)Indication: Pharyngitis, acute On: [id number]-Liz-[id number] Request CBC (Auto) ([id number])Indication: Hypercholesterolemia On: 01-Haq-17348:13 Request Lipid Panel ([id number])Indication: Hypercholesterolemia On: :13 Request Metabolic Panel, Comprehensive ([id number])Indication: Hypercholesterolemia On: :13 Request Comments: in six months (approximately) TSH ([id number])Indication: Hypothyroidism On: 10-Muj-853144:06 Request LIPID PANEL ([id number])Indication: Hypertension On: 08-Pdq-827747:01 Request Planned Encounters Medical; 3 Month FU - On: 14-Jun-2018 10:45 [facility] Sarai Bro CNP, CNP, Mary E Planned Procedures Flu Vaccine (Quadrivalent) On: 02-Jun-2018 Intent [id number]: Sarai Bro CNP Comments: Lot #[id number]/30/[id number]-L dltd, IMDose prefilled syringegiven by: SHARONDA CHOINVIS reviewed and ABN signed Sarai Bro CNP MAMMOGRAM BREAST BILATERAL On: 27-May-2018 Intent SCREENING DIGITAL ([id number])By: Sarai Bro CNP, CNP, Mary E Radiology - Femur - RightBy: On: 02-Mar-2018 Intent Sarai Bro CNP, CNP, Mary E DEXA SCAN AXIAL SKELETON On: 19-Oct-2017 Intent ([id number])By: Sarai Bro CNP, CNP, Mary E Aerosol Treatment ([id number])By: On: 07-Sep-2017 Intent Kelly Naqvi Comments: Lungs clear after aerosol treatment Flu Vaccine (Quadrivalent) On: 13-Apr-2017 Intent [id number]: Giselle Silva LPN Comments: InfluenzaLot #[id number]/18/18Site-L dltd, IMDose prefilled syringeVIS and ABN signedgiven by:ROSA MARIA cade MAMMOGRAM BREAST BILATERAL On: 05-Jan-2017 Intent SCREENING DIGITAL ([id number])By: Comments: after Apr 24 2017 Sarai Bro CNP, CNP, Mary E DEXA SCAN AXIAL SKELETON On: 05-Jan-2017 Intent ([id number])By: Sarai Bro CNP Comments: After Apr 24 2017 Sarai Bro CNP Flu Vaccine (Quadrivalent) On: 06-Jul-2016 Intent [id number]: Giselle Silva LPN Comments: InfluenzaLot #Lot [id number]/30/17Site-L dltd, IMDose prefilled syringeVIS and ABN signedgiven by:ROSA MARIA cade MAMMOGRAM, SCREENING, BOTH On: 31-Mar-2016 Intent BREAST ([id number])By: Sarai Bro CNP, CNP, Mary E MAMMOGRAM, SCREENING, BOTH On: 17-Feb-2016 Intent BREAST ([id number])By: Sarai Bro CNP, CNP, Mary E PHYSICAL THERAPY EVALUATION On: 28-Jan-2016 Intent ([id number])By: Sarai Bro CNP, CNP, Mary E PHYSICAL THERAPY EVALUATION On: 28-Jan-2016 Intent ([id number])By: Sarai Bro CNP, CNP, Mary E Toradol Injection, 30 mg On: 28-Jan-2016 Intent ([id number])By: Hang ANGELIKASarai CNP, Mary E Radiology - Lumbar SpineBy: On: 28-Jan-2016 Intent Sarai Bro CNP, CNP, Mary E Radiology - Knee - LeftBy: On: 28-Jan-2016 Intent Sarai Bro CNP, CNP, Mary E Aerosol Treatment ([id number])By: On: 24-Dec-2015 Intent Sarai Bro CNP, CNP, Mary E Flu Vaccine (Quadrivalent) On: 10-May-2015 Intent 68790Lc: Roccoyin CARNEY Sarai Moon Comments: Lot:[id number]:02/06/16Dose:0.5mLRoute:IMSite:L DltdGiven By:Kacie signed Hang ANGELIKA Sarai Moon DEXA SCAN AXIAL SKELETON On: 19-Mar-2015 Intent ([id number])By: Hang CARNEY Sarai Bro ANGELIKA Sarai Moon MAMMOGRAM, SCREENING, BOTH On: 11-Feb-2015 Intent BREAST ([id number])By: Hang ANGELIKA Sarai Busby CNP DEXA SCAN AXIAL SKELETON On: 11-Feb-2015 Intent ([id number])By: Hang ANGELIKASarai CNP, Mary E Solu -Medrol Injection, 125 On: 25-Jul-2014 Intent mg ([id number])By: Tiffaniewojciechyin CARNEY, Comments: [id number] 5.17right gm125 mgas, LABORATORY OPERATIONS COORDINATOR Sarai Busby CNP Aerosol Treatment ([id number])By: On: 25-Jul-2014 Intent Sarai Bro CNP, CNP, Mary E Toradol Injection, 30 mg On: 18-Jul-2014 Intent ([id number])By: Hang ANGELIKASarai CNP, Mary E Radiology - Lumbar SpineBy: On: 18-Jul-2014 Intent Sarai Bro CNP, CNP, Mary E Radiology - Hip - RightBy: On: 18-Jul-2014 Intent Sarai Bro CNP, CNP, Mary E Prevnar 13 ([id number])By: Ricardo On: 16-Jul-2014 Intent Giselle CRANE Comments: [id number] arm, IMAS Bone Density StudyBy: Hang On: 15-May-2014 Intent Sarai CARNEY CNP Sarai Moon ADMINISTRATION OF INFLUENZA On: 15-May-2014 Intent VIRUS VACCINE (G0008)By: Hang CARNEY Sarai Bro CNP Sarai Moon FLU VAC, SPLIT, >3 YEARS, On: 15-May-2014 Intent INTRAMUSC ([id number])By: Hang Comments: Lot:[id number]/24Dose:0.5mLRoute:IMSite:L DltdGiven By:FIDENCIO signed Sarai CARNEY CNP Sarai Moon SPECIMEN HNDLNG/TRNSPRT, OFFC On: 22-Mar-2014 Intent > LAB ([id number])By: Hang CARNEY Sarai Bro ANGELIKA Sarai Moon BILATERAL MAMMOGRAMS On: 18-Dec-2013 Intent ([id number])By: Hang CARNEY Sarai Bro ANGELIKA Sarai Moon Aerosol Treatment ([id number])By: On: 22-Sep-2013 Intent Tiffaniewojciechyin CARNEY Sarai Bro CNP Sarai Moon Wax CurettesBy: Tiffaniewojciechyin CARNEY, On: 22-Sep-2013 Intent Sarai Bro CNP Sarai Moon Ear Irrigation ([id number])By: On: 22-Sep-2013 Intent Sarai Bro CNP, CNP Sarai Moon Eprescribed prescriptions On: 18-Aug-2013 Intent (G8553)By: Lucrecia Vargas Eprescribed prescriptions On: 05-May-2013 Intent (G8553)By: Hang CARNEY Sarai Bro CNP Sarai Moon ADMINISTRATION OF INFLUENZA On: 05-May-2013 Intent VIRUS VACCINE (G0008)By: Comments: lot # [id number]- 6.2014site- L dltdroute-IMdose- 0.5mlRICHARD and ROMEL signedPenny Hauser LPN, LPN FLU VAC, SPLIT, >3 YEARS, On: 05-May-2013 Intent INTRAMUSC ([id number])By: Penny Irving LPN MAMMOGRAM, SCREENING, BOTH On: 16-Dec-2012 Intent BREASTS ([id number])By: Sarai Bro CNPesyin CARNEY Rianna Spirometry ([id number])By: Aristides On: 16-Dec-2012 Intent Penny CRANE Comments: mild airway obstruction Aerosol Treatment ([id number])By: On: 30-Mar-2012 Intent Tiffaniewojciechyin CARNEY Sarai Moon Tiffaniewojciechyin CARNEY Rianna PFT - CompleteBy: Hang CARNEY, On: 01-Mar-2012 Intent Sarai Moon Tiffaniewojciechyin CARNEY Rianna Inhaler Demonstration On: 28-Dec-2011 Intent ([id number])By: Hang CARNEY RiannaRed Bro CNP Rianna Pulse Oximetry ([id number])By: On: 28-Dec-2011 Intent Roccoyin CARNEY Sarai Bro ANGELIKA Rianna Eprescribed prescriptions On: 22-Apr-2011 Intent (G8553)By: Hang CARNEY Rianna Ciwojciechyin CARNEY Rianna Eprescribed prescriptions On: 21-Oct-2010 Intent (G8553)By: Hang CARNEY Rianna Ciwojciechyin CARNEY Rianna Eprescribed prescriptions On: 21-Oct-2010 Intent (G8553)By: Hang CARNEY Rianna Ciwojciechyin CARNEY Rianna MAMMOGRAM, SCREENING, BOTH On: 15-Apr-2010 Intent BREASTS ([id number])By: Hang CARNEY Rianna Ciwojciechyin CARNEY Rianna Ultrasound - RenalBy: Hang On: 23-Dec-2009 Intent ANGELIKA RiannaRed Bro CNP Rianna Comments: To be done on December 30 CT - Abdomen & Pelvis (IV On: 17-Dec-2009 Intent Contrast Needed)By: Hang CARNEY RiannaRed Bro CNP Rianna ADMINISTRATION OF INFLUENZA On: 22-May-2009 Intent VIRUS VACCINE (G0008)By: Karina Nina LPN FLU VAC, SPLIT, >3 YEARS, On: 22-May-2009 Intent INTRAMUSC ([id number])By: Kelle Comments: Lot #[id number]-left deltoidgiven by:Karina PLAZA LPN Pulse Oximetry ([id number])By: On: 25-Sep-2008 Intent PRESTON Thompson ADMINISTRATION OF INFLUENZA On: 13-Jun-2008 Intent VIRUS VACCINE (G0008)By: Comments: lot #[id number] exp- 01/15site-left delroute-imdose- 0.5 Penny Irving LPN FLU VAC, SPLIT, >3 YEARS, On: 13-Jun-2008 Intent INTRAMUSC (86649)By: Penny Irving LPN MAMMOGRAM, SCREENING, BOTH On: 28-May-2008 Intent BREASTS ([id number])By: Susan Lee MD Bio Z ([id number])By: Rosa CHRISTIANSEN, On: 28-Nov-2007 Intent Susan Sánchez SPECIMEN HNDLNG/TRNSPRT, OFFC On: 12-Oct-2007 Intent > LAB ([id number])By: Tyesha Ramos DO Bone Density StudyBy: Rosa On: 18-Feb-2007 Intent Susan CHRISTIANSEN Comments: ache in back MAMMOGRAM, SCREENING, BOTH On: 18-Feb-2007 Intent BREASTS ([id number])By: Susan Lee MD Bio Z ([id number])By: Rosa CHRISTIANSEN, On: 20-Jul-2006 Intent Susan Sánchez Planned Medications INJECTION, KETOROLAC TROMETHAMINE, PER 15 MG Ordered: 18-Jul-2014 Pending Ciesa DIRECTOR OF FINANCIAL REPORTING, Rianna Ciesa DIRECTOR OF FINANCIAL REPORTING, Rianna INJECTION, KETOROLAC TROMETHAMINE, PER 15 MG Ordered: 28-Jan-2016 Pending Ciesa DIRECTOR OF FINANCIAL REPORTING, Rianna Ciesa DIRECTOR OF FINANCIAL REPORTING, Rianna INJECTION, METHYLPREDNISOLONE SODIUM SUCCINATE, UP TO 125 MG Ordered: 25-Jul-2014 Pending Ciesa DIRECTOR OF FINANCIAL REPORTING, Rianna Ciesa DIRECTOR OF FINANCIAL REPORTING, Rianna Instructions Name Dates Details Nonsmoker : How to access health information online Indication: Nonsmoker Nonsmoker : How to access health information online - Detail Indication: Nonsmoker Nonsmoker : Patient Instructions Indication: Nonsmoker BMI 30.0-30.9,adult : Patient Instructions Indication: BMI 30.0-30.9,adult Right leg pain : How to access health information online Indication: Right leg pain Right leg pain : How to access health information online - Detail Indication: Right leg pain Hypertensive heart disease : How to access health information online Indication: Hypertensive heart disease Hypertensive heart disease : How to access health information online - Detail Indication: Hypertensive heart disease Right leg pain : Patient Instructions Indication: Right leg pain Nonsmoker : How to access health information online Indication: Nonsmoker Nonsmoker : How to access health information online - Detail Indication: Nonsmoker Nonsmoker : Patient Instructions Indication: Nonsmoker Osteopenia : How to access health information online Indication: Osteopenia Osteopenia : How to access health information online - Detail Indication: Osteopenia Osteopenia : Patient Instructions Indication: Osteopenia Poison iveth : How to access health information online Indication: Poison iveth Poison iveth : How to access health information online - Detail Indication: Poison iveth Poison iveth : Patient Instructions Indication: Poison iveth BMI 30.0-30.9,adult : How to access health information online Indication: BMI 30.0-30.9,adult BMI 30.0-30.9,adult : How to access health information online - Detail Indication: BMI 30.0-30.9,adult BMI 30.0-30.9,adult : Patient Instructions Indication: BMI 30.0-30.9,adult BMI 30.0-30.9,adult : How to access health information online Indication: BMI 30.0-30.9,adult BMI 30.0-30.9,adult : How to access health information online - Detail Indication: BMI 30.0-30.9,adult Chest congestion : Patient Instructions Indication: Chest congestion Atrial fibrillation : How to access health information online Indication: Atrial fibrillation Atrial fibrillation : How to access health information online - Detail Indication: Atrial fibrillation Atrial fibrillation : Patient Instructions Indication: Atrial fibrillation Hypothyroidism : Patient Instructions Indication: Hypothyroidism Hypertension, essential, benign : How to access health information online Indication: Hypertension, essential, benign Hypertension, essential, benign : How to access health information online - Detail Indication: Hypertension, essential, benign Hypertension, essential, benign : Patient Instructions Indication: Hypertension, essential, benign Hypertension, essential, benign : How to access health information online Indication: Hypertension, essential, benign Hypertension, essential, benign : How to access health information online - Detail Indication: Hypertension, essential, benign Hypertension, essential, benign : Patient Instructions Indication: Hypertension, essential, benign Hypertension, essential, benign : How to access health information online Indication: Hypertension, essential, benign Hypertension, essential, benign : How to access health information online - Detail Indication: Hypertension, essential, benign Hypertension, essential, benign : Patient Instructions Indication: Hypertension, essential, benign Sorethroat : How to access health information online Indication: Sorethroat Sorethroat : How to access health information online - Detail Indication: Sorethroat Sorethroat : Patient Instructions Indication: Sorethroat Sciatica : How to access health information online Indication: Sciatica Sciatica : How to access health information online - Detail Indication: Sciatica Sciatica : Patient Instructions Indication: Sciatica Left knee pain : How to access health information online Indication: Left knee pain Left knee pain : How to access health information online - Detail Indication: Left knee pain Left knee pain : Patient Instructions Indication: Left knee pain SOB (shortness of breath) on exertion : Patient Instructions Indication: SOB (shortness of breath) on exertion Cold virus : How to access health information online Indication: Cold virus Cold virus : How to access health information online - Detail Indication: Cold virus Breast cancer screening : Patient Instructions Indication: Breast cancer screening Fatigue : Patient Instructions Indication: Fatigue Need for prophylactic vaccination and inoculation against influenza : Patient Instructions Indication: Need for prophylactic vaccination and inoculation against influenza Varicose vein : How to access health information online Indication: Varicose vein Varicose vein : How to access health information online - Detail Indication: Varicose vein Varicose vein : Patient Instructions Indication: Varicose vein Bronchitis : Patient Instructions Indication: Bronchitis Need for prophylactic vaccination and inoculation against influenza : Patient Instructions Indication: Need for prophylactic vaccination and inoculation against influenza Encounters Nurse Visit On: 02-Jun-2018 11:31 Encounter Reason: Injections - The medication the patient is here to receive is other (flu vaccine).Encounter Diagnosis: Need for prophylactic vaccination and inoculation against influenza (Renamed from Need for immunization against influenza) End: 02-Jun-2018 11:49 [facility] Annotation/Addendum On: 27-May-2018 7:57 Encounter Diagnosis: Screening mammogram, encounter for End: 27-May-2018 7:59 [facility] Office Visit On: 18-May-2018 13:19 Encounter Reason: Cold Symptoms - Symptoms include nasal congestion, runny nose, sore throat and headache. Onset was 3 day(s) ago. Onset followed exposure at home to someone with upper respiratory symptoms. Associated sy End: 18-May-2018 13:46 mptoms include ear pain. Note for Cold symptoms: Cold symptoms, with terrible sore throatEncounter Diagnosis: Nonsmoker, BMI 30.0-30.9,adult, URI (upper respiratory infection), Asthma, mild intermittent [facility] Annotation/Addendum On: 11-May-2018 8:19 Encounter Diagnosis: Asthma, mild intermittent End: 11-May-2018 8:22 [facility] Office Visit On: 09-Mar-2018 10:27 Encounter Reason: Leg Pain - This condition occurred without any known injury. The patient sustained an injury to the right thigh. This occurred week(s) ago. The pain is located on the right side more than the left. Ther End: 09-Mar-2018 10:55 e is no radiation. The symptoms occur constantly. Previous presentation included leg pain. Note for Leg pain: rt thigh pain with swelling and tenderness, it helps to hold it in placeRt thigh pain reso lved after going off of statin 20mg of simvastatin x 1 week.Encounter Diagnosis: Right leg pain, Nonsmoker, BMI 30.0-30.9,adult, Hypercholesterolemia [facility] Office Visit On: 02-Mar-2018 10:02 Encounter Reason: Follow up for chronic medical issues - The patient feels well with minor complaints (Right thigh pain), has decreased energy level and is sleeping well. Patient has been compliant with instructions. Cur End: 02-Mar-2018 10:57 rent medication use: no side effects. Patient sleeps 7 hours per night. Nutrition: balanced diet. Note for Follow up for chronic medical issues: Feeling well no complaints, [ADDITIONAL REASON] Leg Pain - This condition occurred without any known injury. The patient sustained an injury to the right thigh. This occurred week(s) ago. The pain is located on the right side mor e than the left. There is no radiation. The symptoms occur constantly. Previous presentation included leg pain. Note for Leg pain: rt thigh pain with swelling and tenderness, it helps to hold it in place Encounter Diagnosis: Hypertensive heart disease, Right leg pain, Nonsmoker [facility] Office Visit On: 25-Jan-2018 10:37 Encounter Reason: Follow up tests - Date: (december/january)., [ADDITIONAL REASON] Follow up for chronic medical issues - The patient feels well with no complaints End: 25-Jan-2018 11:30 , has decreased energy level and is sleeping well. Patient has been compliant with instructions. Current medication use: no side effects. Patient sleeps 7 hours per night. Nutrition: balanced diet. 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 Date:.Encounter Diagnosis: Osteopenia, Nonsmoker, BMI 30.0-30.9,adult End: 24-Nov-2017 12:21 [facility] Office Visit On: 15-Nov-2017 10:43 Encounter Reason: Rash - Symptoms include skin bumps and skin redness. The skin rash is located on the left leg. Onset was 4 day(s) ago. Note for Rash: left groin and backEncounter Diagnosis: Nonsmoker, Poison iveth, BMI 30.0-30.9,adult End: 15-Nov-2017 11:07 [facility] Office Visit On: 19-Oct-2017 10:08 Encounter Reason: Follow up for chronic medical issues - The patient feels well with no complaints, has decreased energy level and is sleeping well. Patient has been compliant with instructions. Current medication use: n End: 19-Oct-2017 11:00 o side effects. Patient sleeps 7 hours per night. Nutrition: balanced diet. Note for Follow up for chronic medical issues: Feeling well no complaints, [ADDITIONAL REASON] Fatigue - Note for Fatigue : Get tired easily, legs ache. , [ADDITIONAL REASON] Shortness of Breath - Note for Shortness of breath: Needs inhaler prior to working at 4pm Encounter Diagnosis: Current nonsmoker, BMI 30.0-30.9,adult, Hypertension, essential, benign, Hypothyroidism, Anticoagulated, Hypercholesterolemia, Asthma, mild intermittent, Left knee pain, Post-menopausal [facility] Office Visit On: 07-Sep-2017 15:18 Encounter Reason: Cold Symptoms - Symptoms include postnasal drainage and dry cough (and chest congestion). Onset was 3 day(s) ago. Onset followed exposure at home to someone with upper respiratory symptoms (). Th End: 07-Sep-2017 16:21 e patient describes this as moderate in severity and worsening. Note for Cold symptoms: Symptoms started about 3 days ago- cough-can't get anything up, nasal drainage- clear, chills, sore throat, body aches. No fever, SOB, wheezing, sinus pressure, headaches, ear pressure or pain, CP, n/v, constipation or diarrhea. Has taken tylenol-has helped with body aches.Encounter Diagnosis: BMI 30.0-30.9,adult, Current nonsmoker, Cough, Chest congestion, Abnormal lung sounds, Acute asthma exacerbation (Renamed from Asthma with acute exacerbation), Body aches, Type B influenza [facility] Lab Order On: 22-Jul-2017 14:31 Encounter Diagnosis: Hyperkalemia End: 22-Jul-2017 15:06 [facility] Office Visit On: 21-Jul-2017 11:39 Encounter Reason: Follow up for chronic medical issues - The patient feels well with no complaints and has good energy level. Patient has been compliant with instructions. Current medication use: no side effects. Patient End: 21-Jul-2017 12:24 sleeps 7 hours per night. Impact of disease: no overall impact. Nutrition: balanced diet. The medical issues the patient is following up for include cardiac issues and high cholesterol. 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 Date: (04/09/17)., [ADDITIONAL REASON] Follow up for chronic medical issues - The patient feels well with no complaints End: 13-Apr-2017 14:13 and has good energy level. Patient has been compliant with instructions. Current medication use: no side effects. Patient sleeps 7 hours per night. Impact of disease: no overall impact. Nutrition: everton nced diet. The medical issues the patient is following up for include cardiac issues and high cholesterol. Note for Follow up for chronic medical issues: Using vasculera pills for varicose veins Encounter Diagnosis: Current nonsmoker, Hypothyroidism, BMI 30.0-30.9,adult, Hypertension, essential, benign, Need for prophylactic vaccination and inoculation against influenza (Renamed from Need for immunization against influenza), Atrial fibrillation (427.31), Varicose vein (454.9) [facility] Office Visit On: 05-Jan-2017 13:18 Encounter Reason: Follow up for chronic medical issues - The patient feels well with no complaints and has good energy level. Patient has been compliant with instructions. Current medication use: no side effects. Patient End: 05-Jan-2017 13:56 sleeps 6 hours per night. Impact of disease: no overall impact. Nutrition: balanced diet. The medical issues the patient is following up for include cardiac issues and high cholesterol., [ADDITIONAL REASON] Leg pain - Note for Leg pain: When walking for long time, legs ache Encounter Diagnosis: Current nonsmoker, BMI 30.0-30.9,adult, Hypothyroidism, Hypertension, essential, benign, Varicose vein (454.9), Asthma, mild intermittent , Encounter for screening mammogram for breast cancer (Renamed from Encounter for screening mammogram for malignant neoplasm of breast), Post-menopausal, Atrial fibrillation (427.31) [facility] Office Visit On: 05-Oct-2016 13:17 Encounter Reason: Follow up for chronic medical issues - The patient feels well with no complaints and has good energy level. Patient has been compliant with instructions. Current medication use: no side effects. Patient End: 05-Oct-2016 13:54 sleeps 6 hours per night. Impact of disease: no overall impact. Nutrition: balanced diet. The medical issues the patient is following up for include cardiac issues and high cholesterol. Note for Follo w up for chronic medical issues: In January had cardioversion by Dr. Paz shocked heart. On coumadin now Legs both better with support stockings I took 9 advil for 12 days, was off of coumadin x 5 days Encounter Diagnosis: Current nonsmoker, BMI 29.0-29.9,adult, Hypertension, essential, benign, Atrial fibrillation (427.31), Claudication, intermittent, Hypercholesterolemia, Hypothyroidism [facility] Office Visit On: 06-Jul-2016 7:27 Encounter Reason: Follow up for chronic medical issues - The patient feels well with minor complaints and has good energy level. Patient has been compliant with instructions. Current medication use: no side effects. Katty End: 06-Jul-2016 11:37 ent sleeps 6 hours per night. Impact of disease: no overall impact. Nutrition: balanced diet. The medical issues the patient is following up for include cardiac issues and high cholesterol. Note for Fo llow up for chronic medical issues: In January had cardioversion by Dr. Jackson danielson. On coumadin now Legs both better with support stockings I took 9 advil for 12 days, was off of coumadin x 5 days Encounter Diagnosis: Asthma, mild intermittent , Anemia, Hypertension, essential, benign, Vitamin B12 deficiency, Atrial fibrillation (427.31), Hypercholesterolemia, BMI 29.0-29.9,adult, Current nonsmoker, Need for prophylactic vaccination and inoculation against influenza (Renamed from Need for immunization against influenza) [facility] Office Visit On: 21-May-2016 14:34 Encounter Reason: Sore Throat - No changes in management were made at the last visit. Symptoms include sore throat and swollen glands. The symptoms are symmetrical. There is no radiation. The patient describes the pain a End: 21-May-2016 14:58 s aching. Onset was sudden 1 day(s) ago.Encounter Diagnosis: Sorethroat [facility] Office Visit On: 31-Mar-2016 7:36 Encounter Reason: Follow up for chronic medical issues - The patient feels well with minor complaints (Therapy did help legs. Is going to start silver sneakers) and has good energy level. Patient has been compliant with End: 31-Mar-2016 11:30 instructions. Current medication use: no side effects. Patient sleeps 6 hours per night. Impact of disease: no overall impact. Nutrition: balanced diet. The medical issues the patient is following up f or include cardiac issues and high cholesterol. Note for Follow up for chronic medical issues: In January had cardioversion by Dr. Jackson danielson. 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 The injury involved the left knee. This occurred 3 week(s) ago at home. Symptoms include knee pain, swelling, decreased range of motion and End: 17-Feb-2016 9:29 difficulty ambulating. Symptoms are located in the left knee. The pain radiates to the left hip. The symptoms occur intermittently (worse with movement). The episodes occur daily. Symptoms are exacerbat ed by walking. Current treatment includes physical therapy. By report there is good compliance with treatment and fair symptom control. Previous presentation included knee pain, decreased range of motio n and difficulty ambulating. Past treatment has included physical therapy., [ADDITIONAL REASON] Follow up tests - Diagnostic tests include X-Ray. Encounter Diagnosis: Sciatica, Left knee pain, Asthma, mild intermittent, Claudication, intermittent, Encounter for screening mammogram for breast cancer (Renamed from Encounter for screening mammogram for malignant neoplasm of breast) [facility] Office Visit On: 28-Jan-2016 8:14 Encounter Reason: Knee Pain - This condition occurred without any known injury. The injury involved the left knee. This occurred 2 week(s) ago at home. Symptoms include knee pain, swelling, decreased range of motion and End: 28-Jan-2016 15:11 difficulty ambulating. Symptoms are located in the left knee. The pain radiates to the left hip. The symptoms occur intermittently (worse with movement). The episodes occur daily. Symptoms are exacerbat ed by walking. Previous presentation included knee pain, decreased range of motion and difficulty ambulating.Encounter Diagnosis: Left knee pain, LOW BACK PAIN (Renamed from LBP (low back pain)), Asthma, mild intermittent, Sciatica [facility] Office Visit On: 24-Dec-2015 9:18 Encounter Reason: Cold Symptoms - Symptoms include runny nose and dry cough. Onset was sudden 1 week(s) ago. There is no known event that preceded symptom onset. The patient describes this as mild and improving. Previous End: 24-Dec-2015 9:51 presentation included runny nose and dry cough.Encounter Diagnosis: Cold virus, SOB (shortness of breath) on exertion, Hypertension, essential, benign [facility] Office Visit On: 12-Jul-2015 9:18 Encounter Reason: Follow up for chronic medical issues - The patient feels well with no complaints and has good energy level. Patient has been compliant with instructions. Current medication use: no side effects. Patient End: 12-Jul-2015 10:41 sleeps 6 hours per night. Impact of disease: no overall impact. Nutrition: balanced diet. The medical issues the patient is following up for include cardiac issues and high cholesterol. Note for Follo w up for chronic medical issues: In January had cardioversion by Dr. Jackson boogie heart. On coumadin now Legs both better with support stockings I took 9 advil for 12 days, was off of coumadin x 5 days Encounter Diagnosis: Hypertension, essential, benign, Hypothyroidism [facility] Office Visit On: 10-May-2015 8:40 Encounter Reason: Follow up for chronic medical issues - The patient feels well with no complaints and has good energy level. Patient has been compliant with instructions. Current medication use: no side effects. Patient End: 10-May-2015 10:52 sleeps 6 hours per night. Nutrition: balanced diet. The medical issues the patient is following up for include cardiac issues and high cholesterol. Note for Follow up for chronic medical issues: In had cardioversion by Dr. Jackson danielson. On coumadin now Legs both better with support stockings I took 9 advil for 12 days, was off of coumadin x 5 days Encounter Diagnosis: Excessive use of nonsteroidal anti-inflammatory drug (NSAID), Vitamin B12 deficiency, DEFICIENCY, VITAMIN D NOS (268.9), Asthma, mild intermittent, Need for prophylactic vaccination (Renamed from Need for immunization against influenza) [facility] Annotation/Addendum On: 20-Mar-2015 14:40 [facility] End: 20-Mar-2015 14:51 Phone Encounter On: 19-Mar-2015 11:06 Encounter Diagnosis: Post-menopausal End: 19-Mar-2015 11:08 [facility] Office Visit On: 11-Feb-2015 9:55 Encounter Reason: Follow up acute care visit - The patient feeling better since last seen and has decreased energy level. Patient has been compliant with instructions. Current medication use: experiencing side effects (m End: 11-Feb-2015 11:01 y tooth is bleeding for the past 2 days ). The medical issues the patient is following up for include All identified problems below and other (cardioversion ).Encounter Diagnosis: Cardiomyopathy(425.4), DEFICIENCY, VITAMIN D NOS (268.9), Vitamin B 12 deficiency, Breast cancer screening, Bleeding gums [facility] Office Visit On: 25-Jul-2014 13:21 Encounter Reason: Follow up acute care visit - The medical issues the patient is following up for include All identified problems below and other (low back pain ).Encounter Diagnosis: BRONCHITIS, NOT SPECIFIED ACUTE OR CHRONIC (490.), Sciatica, End: 25-Jul-2014 14:30 Thigh pain, Atypical mole syndrome, Wheezing (786.07), Cough, Osteoarthritis- Generalized or Localized, Involving Unspecified Site (715.90) [facility] Office Visit On: 18-Jul-2014 13:06 Encounter Reason: Leg pain - The leg pain began suddenly and has been occurring for months. The symptoms have been occurring in an increasing pattern. The symptoms are described as a discomfort and dull ache and are mod End: 18-Jul-2014 13:51 erate to severe. The symptoms occur on exertion, when climbing stairs and when walking. There is involvement of the right calf and right thigh. There are no precipitating factors. Aggravating factors in clude exertion. Relief is provided by rest and lying down. There has been no associated fatigue.Encounter Diagnosis: LOW BACK PAIN (Renamed from LBP (low back pain)), Hip pain, right, Varicose vein (454.9), Hypercholesterolemia (272.0), Fatigue (780.79), Thigh pain, Cough, Sciatica [facility] Nurse Visit On: 16-Jul-2014 10:59 Encounter Reason: Injections - The medication the patient is here to receive is other (Prevnar).Encounter Diagnosis: Need for vaccination against Streptococcus pneumoniae End: 16-Jul-2014 12:47 [facility] Office Visit On: 15-May-2014 11:07 Encounter Reason: Annual Medicare Exam - The patient had reviewed and updated the family history, medication/s, past medical history and social history. Yes the patient did have () a mini mental status exam done tod End: 15-May-2014 11:58 ay. The activities of daily living the patient needs help with are none. The patient has driven in past 6 months. The patient has completed the following preventative measures: mammography (12/20) and co lonoscopy (2012- Dr Tompkins ). The patient does have durable power of trade mark attorney and living will. The patient has noticed nothing from the geriatic depression scale. Other providers contributing to the katty ent's care are safety pin assembling machine operator (Dr paz ), comber fixer (Dr Vazquez ), urologist (Dr Pope ) and other: (Dr chacon - eye).Encounter Diagnosis: Hypothyroidism (244.9), Annual Medicare Physical (V70.0), Need for prophylactic vaccination and inoculation against influenza (V04.81) [facility] Office Visit On: 13-Apr-2014 8:39 Encounter Reason: Varicose Veins - Symptoms include bulging veins, discolored veins and leg pain (achey). Symptoms are located in both legs symmetrically. The patient describes the pain as aching. Onset was month(s) ago. End: 13-Apr-2014 9:12 The patient describes this as worsening. The patient is not currently being treated for this problem.Encounter Diagnosis: Varicose vein (454.9) [facility] Office Visit On: 22-Mar-2014 9:12 Encounter Reason: Sore Throat - Symptoms include sore throat and odynophagia. The symptoms are symmetrical. The pain radiates to the left ear and left neck. The patient describes the pain as burning. Onset was sudden. Th End: 22-Mar-2014 9:51 e symptoms occur constantly. The patient describes this as moderate in severity and worsening. Symptoms are exacerbated by swallowing liquids and swallowing solids. Associated symptoms include hoarseness and fatigue.Encounter Diagnosis: ACUTE PHARYNGITIS (462.), ASTHMA NOS W/O STATUS ASTHMATICUS (493.90) [facility] Annotation/Addendum On: 09-Jan-2014 11:21 Encounter Diagnosis: Unspecified Diagnosis End: 09-Jan-2014 11:29 [facility] Lab Order On: 18-Dec-2013 13:31 Encounter Diagnosis: Encounter for other screening for malignant neoplasm of breast End: 18-Dec-2013 13:33 [facility] Office Visit On: 22-Sep-2013 9:49 Encounter Reason: Sinusitis/ - The duration of the symptoms are 1 week The course has been worsening. The sinusitis/ has no relieving factors. Associated features include The symptoms have been associated with cough, ear End: 22-Sep-2013 10:42 pain, nasal discharge/stuffy nose, sinus pain and sore throat. No previous evaluations were reported.Encounter Diagnosis: ASTHMA NOS W/O STATUS ASTHMATICUS (493.90), Cerumen impaction [facility] Office Visit On: 18-Aug-2013 12:28 Encounter Reason: Cold Symptoms - Symptoms include nasal congestion, postnasal drainage and productive cough (yellow), while symptoms do not include facial pressure or headache. Onset was 2 week(s) ago. Associated sympto End: 18-Aug-2013 12:44 ms include fatigue, while associated symptoms do not include fever or chills.Encounter Diagnosis: BRONCHITIS, NOT SPECIFIED ACUTE OR CHRONIC (490.), Cough (786.2), Wheezing (786.07) [facility] Office Visit On: 23-Jun-2013 14:18 Encounter Reason: Elbow ProblemEncounter Diagnosis: Hypothyroidism (244.9), Elbow pain, right (719.42) End: 23-Jun-2013 14:48 [facility] Annotation/Addendum On: 15-May-2013 15:17 Encounter Diagnosis: SOB (786.05) End: 15-May-2013 15:23 [facility] Annotation/Addendum On: 05-May-2013 13:34 Encounter Diagnosis: SOB (786.05) End: 05-May-2013 13:36 [facility] Office Visit On: 05-May-2013 10:24 Encounter Reason: Follow up for chronic medical issues - The patient feels well with no complaints, has good energy level and is sleeping well. Patient has been compliant with instructions. Current medication use: no divya End: 05-May-2013 11:17 e effects, compliant with dosing regimen and considered effective by patient. Patient sleeps 7 hours per night. Nutrition: balanced diet. The medical issues the patient is following up for include All i dentified problems below, asthma, cardiac issues (cardiomyopathy), high blood pressure, hypothyroid, osteoarthritis and other (IBS).Encounter Diagnosis: Need for prophylactic vaccination and inoculation against influenza (V04.81), ASTHMA NOS W/O STATUS ASTHMATICUS (493.90), Hypercholesterolemia (272.0), Hypothyroidism (244.9) [facility] Office Visit On: 16-Dec-2012 9:33 Encounter Reason: Follow up for chronic medical issues - The patient feels well with no complaints, has decreased energy level and is sleeping well. Patient has been compliant with instructions. Current medication use: n End: 16-Dec-2012 11:02 o side effects, compliant with dosing regimen and considered effective by patient. Patient sleeps 7 hours per night. The medical issues the patient is following up for include All identified problems be low, asthma, cardiac issues (A Fib, cardiomyopathy), high blood pressure, high cholesterol, hypothyroid and other (IBS, Vit D deficency, anemia)., [ADDITIONAL REASON] Follow up tests - Diagnostic tests include other (labs). Date: (12/12/12). Encounter Diagnosis: ASTHMA NOS W/O STATUS ASTHMATICUS (493.90), Hypothyroidism (244.9), Hypercholesterolemia (272.0), Varicose vein (454.9) [facility] Office Visit On: 04-Oct-2012 11:02 Encounter Reason: Follow up for chronic medical issues - The patient feels well with no complaints, has decreased energy level and is sleeping well. Patient has been compliant with instructions. Current medication use: n End: 04-Oct-2012 11:45 o side effects, compliant with dosing regimen and considered effective by patient. Patient sleeps 7 hours per night. Nutrition: balanced diet (attempted). 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 The cough is characterized as dry. The amount of sputum produced is scanty. The cough occurs all the time. The symptoms are aggravated by supine posture. End: 21-Jun-2012 11:39 The symptoms have been associated with hoarseness and runny nose (clear), while the symptoms have not been associated with fever, headache or sore throat.Encounter Diagnosis: Wheezing (786.07), BRONCHITIS, NOT SPECIFIED ACUTE OR CHRONIC (490.) [facility] Office Visit On: 30-Mar-2012 10:16 Encounter Reason: Cough - The onset of the cough has been sudden. The cough is characterized as productive of mucoid sputum. The amount of sputum produced is scanty. The cough occurs mainly at night. The symptoms are ag End: 30-Mar-2012 12:29 gravated by supine posture. The symptoms have been associated with hoarseness and wheezing, while the symptoms have not been associated with headache, runny nose or sore throat.Encounter Diagnosis: BRONCHITIS, NOT SPECIFIED ACUTE OR CHRONIC (490.) , Cough (786.2), Wheezing (786.07) [facility] Annotation/Addendum On: 01-Mar-2012 10:37 Encounter Diagnosis: SOB (786.05) End: 01-Mar-2012 10:42 [facility] Office Visit On: 18-Jan-2012 11:05 Encounter Reason: Follow up tests - Diagnostic tests include other (Labs). Date: (12/28/11). Follow up visit with no current symptoms. Past medical history includes asthma, hypertension and other (anemia, Vit D deficency, cardiomyopathy, IBS). End: 18-Jan-2012 11:51 Encounter Diagnosis: ASTHMA NOS W/O STATUS ASTHMATICUS (493.90), SOB (786.05), Hypercholesterolemia (272.0), Hypothyroidism (244.9) [facility] Office Visit On: 28-Dec-2011 9:32 Encounter Reason: Follow up for chronic medical issues - The patient feels well with minor complaints (I do get winded easily), has good energy level and is sleeping well. Patient has been compliant with instructions. Cu End: 28-Dec-2011 11:14 rrent medication use: no side effects, compliant with dosing regimen and considered effective by patient. Patient sleeps 8 hours per night. Impact of disease: no overall impact. Nutrition: balanced diet . The medical issues the patient is following up for include All identified problems below, high blood pressure, high cholesterol, hypothyroid, osteoarthritis and other (IBS, OA).Encounter Diagnosis: SOB (786.05), Wheezing (786.07), Hypercholesterolemia (272.0), ASTHMA NOS W/O STATUS ASTHMATICUS (493.90), DEFICIENCY, VITAMIN D NOS (268.9), Hypothyroidism (244.9) [facility] Office Visit On: 21-Jul-2011 10:19 Encounter Reason: Follow up for chronic medical issues - The patient feels well with no complaints, has good energy level and is sleeping well. Patient has been compliant with instructions. Current medication use: no divya End: 21-Jul-2011 10:56 e effects, compliant with dosing regimen and considered effective by patient. Patient sleeps 7 hours per night. Nutrition: balanced diet. 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 Patient has been compliant with instructions. Current End: 22-Apr-2011 10:38 medication use: no side effects, compliant with dosing regimen and considered effective by patient. Patient sleeps 6 hours per night. Nutrition: balanced diet. The medical issues the patient is followi ng up for include All identified problems below, cardiac issues (A Fib, Cardiomyopathy), high blood pressure, high cholesterol, hypothyroid, kidney problems (hydronephrosis), osteoarthritis and other (anemia, Vit D deficency, IBS). 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 (Renamed from Unspecified hypertensive heart disease without heart failure (402.90)) [facility] Erroneous Entry On: 28-Jan-2011 9:19 Encounter Diagnosis: Atrial fibrillation (427.31) End: 28-Jan-2011 9:20 [facility] Annotation/Addendum On: 19-Jan-2011 8:27 Encounter Diagnosis: Atrial fibrillation (427.31) End: 19-Jan-2011 8:28 [facility] Phone Encounter On: 14-Jan-2011 16:13 Encounter Diagnosis: Abnormal blood chemistry (790.6) End: 14-Jan-2011 16:18 [facility] Erroneous Entry On: 13-Jan-2011 12:15 Encounter Diagnosis: DEFICIENCY, VITAMIN D NOS (268.9), Hypercholesterolemia (272.0) End: 13-Jan-2011 12:16 [facility] Office Visit On: 13-Jan-2011 11:19 Encounter Reason: Follow up hospital - Reason for ER visit: note: (A Fib ). The patient feels well with no complaints, has good energy level and is sleeping well. Patient has been compliant with instructions. Current med End: 13-Jan-2011 12:07 ication use: no side effects, compliant with dosing regimen and considered effective by patient. Patient sleeps 6 hours per night.Encounter Diagnosis: Atrial fibrillation (427.31), Hematuria, unspecified (599.70) [facility] Office Visit On: 06-Nov-2010 11:30 Encounter Reason: Follow up acute care visit - The patient feels the same. The medical issues the patient is following up for include All identified problems below and other (hematuria).Encounter Diagnosis: Hematuria, unspecified (599.70) End: 06-Nov-2010 12:17 [facility] Annotation/Addendum On: 21-Oct-2010 10:33 Encounter Diagnosis: Hematuria, unspecified (599.70) End: 21-Oct-2010 10:36 [facility] Office Visit On: 21-Oct-2010 9:13 Encounter Reason: Follow up, Laboratory Test Results - Lab results: other (UA, CBC, CMP, TSH, LIpid, JOANNA, RF , Vit D, VIt B12). Date: (10/06/10). Current symptoms/reason for visit include/s Symptoms include other (fatigue).Encounter Diagnosis: End: 21-Oct-2010 9:48 Hypercholesterolemia (272.0), DEFICIENCY, VITAMIN D NOS (268.9), Hematuria, unspecified (599.70), Abnormal blood chemistry (790.6) [facility] Office Visit On: 06-Oct-2010 9:21 Encounter Reason: Follow up for chronic medical issues - The patient feels well with no complaints, has decreased energy level and is sleeping well. Patient has been compliant with instructions. Current medication use: n End: 06-Oct-2010 10:31 o side effects, compliant with dosing regimen and considered effective by patient. Patient sleeps 8 hours per night. 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 Pap smear: date of last pap: (2007). Contraceptive history: The patient is not using any method o End: 15-Apr-2010 11:56 f contraception at this time. Patient exercises 3 - 4 times per week (walks). The patient's libido is decreased. The patient reports that she performs monthly self breast exam. Calcium intake includes 1 200 mg with Vit D daily supplement. Previous evaluations: hysterectomy. The patient denies the use of oral contraceptives or hormone replacement therapy. Encounter Diagnosis: Well Women (TAHBSO) (V72.31), Hypothyroidism (244.9) [facility] Office Visit On: 31-Mar-2010 10:58 Encounter Reason: Follow up, Diagnostic Procedure Results - Diagnostic tests include CT scan. Date: (03/18/10). Follow up visit with no current symptoms. There is a family history of cardiovascular disease (parents) and m End: 31-Mar-2010 11:47 yocardial infarction before age 55 (father- @ 48) , while there is no family history of breast cancer ,cystic fibrosis ,Down's syndrome or mental retardation. Past medical history includes hype rtension and other (A Fib, Cardiomyapthy, cholsterol, hypothyroid, IBS, OA). Encounter Diagnosis: HYDRONEPHROSIS (591.) [facility] Office Visit On: 07-Jan-2010 11:04 Encounter Reason: Follow up tests - Diagnostic tests include other (labs) and ultrasound (kidney). Date: (12/27/09 12/30/09). Follow up visit with no current symptoms. There is no family history of breast cancer ,cardiovas End: 07-Jan-2010 12:23 cular disease ,cystic fibrosis ,Down's syndrome ,mental retardation or myocardial infarction before age 55. Past medical history includes hypertension and other (cholesterol, hypothyroid, IBS, cardiomyopathy, A Fib, anemia). Encounter Diagnosis: HYDRONEPHROSIS (591.), Hematuria, unspecified (599.70) [facility] Office Visit On: 23-Dec-2009 10:45 Encounter Reason: Follow up, Laboratory Test Results - Date: (12/16/09). Current symptoms/reason for visit include/s Follow up visit with no current symptoms. There is a family history of cardiovascular disease (PARENTS) End: 23-Dec-2009 11:41 and myocardial infarction before age 55 (father) , while there is no family history of breast cancer ,cystic fibrosis ,Down's syndrome or mental retardation. Past medical history includes elevated lisa sterol ,hypertension ,hypothyroidism and other (OA, cardiomegaly, Afib,). Encounter Diagnosis: Abdominal Pain,General (789.07), HYDRONEPHROSIS (591.), Hematuria, unspecified (599.70), ANEMIA NOS (285.9) [facility] Office Visit On: 17-Dec-2009 12:20 Encounter Diagnosis: Abdominal Pain,General (789.07) End: 17-Dec-2009 15:32 [facility] Historical Summary On: 16-Dec-2009 16:44 [facility] End: 16-Dec-2009 16:45 Office Visit On: 16-Dec-2009 10:31 Encounter Reason: Diarrhea - The onset of the diarrhea has been sudden and has been occurring in a persistent pattern for 10 days. The course has been constant. The stools are watery and floating on water. The volume of End: 16-Dec-2009 11:12 the stools is small. The symptoms have been associated with past history of abdominal surgery ,start of a new medication and drink well water, while the symptoms have not been associated with abdominal pain ,anxiety ,diabetes mellitus ,constipation ,fever ,heat intolerance ,joint pains ,nausea ,nocturnal bowel movements ,[place] ,similar illness in other people eating the same meal ,s kin lesions ,tenesmus ,upper respiratory infection symptoms ,vomiting ,weakness ,weight loss ,diabetic /low carb snacks ,milk intake or recent antibiotics. Encounter Diagnosis: Diarrhea (787.91), Abdominal Pain,General (789.07) [facility] Office Visit On: 30-Sep-2009 11:50 Encounter Reason: Follow up for chronic medical issues - The patient feels well with minor complaints ,has good energy level and is sleeping well. Patient has been compliant with instructions. Current medication use: no End: 30-Sep-2009 12:26 side effects. Patient sleeps 6 hours per night. Nutrition: balanced diet and no supplemental vitamins & iron. The medical issues the patient is following up for include All identified problems below ,high blood pressure and high cholesterol. , [ADDITIONAL REASON] Follow up, Laboratory Test Results - Date: (09/25/09). Encounter Diagnosis: Hypercholesterolemia (272.0), HYPERTENSION, BENIGN ESSENTIAL (401.1), Cardiomyopathy(425.4), Atrial fibrillation (427.31), Hypothyroidism (244.9), PARASTHESIA (782.0), Foot pain (729.5) [facility] Office Visit On: 22-May-2009 9:54 Encounter Diagnosis: Need for prophylactic vaccination and inoculation against influenza (V04.81) End: 27-May-2009 21:19 [facility] Office Visit On: 03-Dec-2008 10:12 Encounter Reason: Follow up for chronic medical issues - The patient feels well with minor complaints ,has good energy level and is sleeping well. Patient has been compliant with instructions. Current medication use: no End: 03-Dec-2008 10:50 side effects ,compliant with dosing regimen and considered effective by patient. Patient sleeps 7 hours per night. Impact of disease: emotional impact-moderate. Nutrition: balanced diet and supplemental vitamins. The medical issues the patient is following up for include cardiac issues ,high blood pressure ,high cholesterol ,hypothyroid ,osteoarthritis and other (IBS ). 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 The cough is characterized as productive of mucoid sputum. The amount of sputum produced is less than a half a cup per day. The cough occurs all the time. End: 25-Sep-2008 12:15 The symptoms have been associated with dyspnea ,hoarseness and runny nose. Encounter Diagnosis: COUGH, NOS (786.2), Acute sinusitis, unspecified (461.9) [facility] Office Visit On: 10-Sep-2008 15:16 Encounter Reason: Sinusitis/ - The duration of the symptoms are 3 days The course has been worsening. The sinusitis/ are relieved by OTC cold medications (claritan - keeps sore throat @ bay ). Associated features include End: 10-Sep-2008 15:36 The symptoms have been associated with cough ,ear pain (AD worse ) ,nasal discharge/stuffy nose (yellow) and sore throat (intermittent ), while the symptoms have not been associated with purulent disch arge from ear ,purulent nasal discharge ,red eyes ,sinus pain ,swollen lymph glands or teeth pain. No previous evaluations were reported. Note for Sinusitis/: I just got over this- I had this a while ago and it lasted 3 weeks Encounter Diagnosis: Acute sinusitis, unspecified (461.9) [facility] Nurse Visit On: 13-Jun-2008 14:03 Encounter Diagnosis: Need for prophylactic vaccination and inoculation against influenza (V04.81) End: 13-Jun-2008 14:07 [facility] Office Visit On: 28-May-2008 10:35 Encounter Reason: Follow up for chronic medical issues - The patient feels well with no complaints ,has decreased energy level and is sleeping well. Patient has been compliant with instructions. Current medication use: n End: 28-May-2008 11:15 o side effects and compliant with dosing regimen. Patient sleeps 7 hours per night. Impact of disease: no overall impact. Nutrition: inappropriate diet and supplemental vitamins. The medical issues the patient is following up for include All identified problems below ,cardiac issues ,high blood pressure and high cholesterol. 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 (Renamed from Unspecified hypertensive heart disease without heart failure (402.90)), Skin tags (701.9), Other and unspecified ovarian cyst (620.2), Diverticulosis (562.10), Hysterectomy; Abdominal, Hypertension 401.1 (Renamed from Hypertension (401.0)), Atrial fibrillation (427.31), Mitral stenosis with insufficiency (394.2), Osteoarthritis- Generalized or Localized, Involving Unspecified Site (715.90), Irritable bowel syndrome (564.1), Cardiomyopathy(425.4), Hypothyroidism (244.9), ACUTE PHARYNGITIS (462.), Well Women ([facility]) (V72.31) [facility] Office Visit On: 28-Nov-2007 10:44 Encounter Reason: Follow up, Laboratory Test Results - Lab results: abnormal blood chemistry and abnormal blood lipids. Date: (10-31-07 ). Current symptoms/reason for visit include/s Symptoms include other (fatigue ). Pas End: 28-Nov-2007 11:07 t medical history includes cardiovascular disease ,elevated cholesterol ,elevated triglycerides ,hypertension ,hypothyroidism and other (Diverticulitis ). Encounter Diagnosis: Diverticulosis (562.10), Hypertension 401.1 (Renamed from Hypertension (401.0)), Hypothyroidism (244.9), Atrial fibrillation (427.31), Cardiomyopathy(425.4), Mitral stenosis with insufficiency (394.2), Irritable bowel syndrome (564.1), Osteoarthritis- Generalized or Localized, Involving Unspecified Site (715.90), Well [facility] ([facility]) (V72.31) [facility] Office Visit On: 12-Oct-2007 15:28 Encounter Reason: Sore throat - The onset of the sore throat has been sudden and has been occurring in a persistent pattern for 3 days. The course has been worsening. The symptoms have been associated with foreign body s End: 12-Oct-2007 16:15 ensation in throat ,change in voice ,cough ,difficulty in swallowing ,ear pain (right ear) and recent contact with a person with sore throat, while the symptoms have not been associated with fever ,runny nose ,sinus pain or swelling of neck glands. Encounter Diagnosis: ACUTE PHARYNGITIS (462.) [facility] Office Visit On: 16-Jun-2007 15:52 Encounter Reason: Sore throat - The onset of the sore throat has been sudden and has been occurring in a persistent pattern for 2 days. The course has been improving. The symptoms have been associated with foreign body s End: 16-Jun-2007 16:15 ensation in throat ,change in voice ,cough ,difficulty in swallowing ,ear pain and runny nose, while the symptoms have not been associated with fever ,sinus pain or swelling of neck glands. Encounter Diagnosis: ACUTE PHARYNGITIS (462.), Unspecified hypertensive heart disease without heart failure (402.90), Mitral stenosis with insufficiency (394.2) [facility] Office Visit On: 18-Feb-2007 7:47 Encounter Reason: Follow up for chronic medical issues - The patient feels well with no complaints ,has good energy level and is sleeping well. Patient has been compliant with instructions. Current medication use: no divya End: 18-Feb-2007 8:22 e effects ,compliant with dosing regimen and considered effective by patient. Patient sleeps 7 hours per night. Impact of disease: no overall impact. Nutrition: balanced diet and supplemental vitamins. The medical issues the patient is following up for include cardiac issues ,high blood pressure and hypothyroid. , [ADDITIONAL REASON] Neck pain - The onset of the neck pain has been gradual and has been occurring f or 4 months. The neck pain is described as a dull aching (not much more turning). Note for Neck pain: some ache in back with movement and over do Encounter Diagnosis: Hypothyroidism (244.9), Cardiomyopathy(425.4), Hypertension (401.0), Skin tags (701.9), Diverticulosis (562.10), Other and unspecified ovarian cyst (620.2), Hypercholesterolemia (272.0), Atrial fibrillation (427.31), Hysterectomy; Abdominal, Mitral stenosis with insufficiency (394.2), BRONCHITIS, NOT SPECIFIED ACUTE OR CHRONIC (490.), Irritable bowel syndrome (564.1), Well Women ([facility]) (V72.31), Osteoarthritis- Generalized or Localized, Involving Unspecified Site (715.90) [facility] Historical Summary On: 04-Nov-2006 13:29 Encounter Diagnosis: Unspecified Diagnosis End: 04-Nov-2006 13:30 [facility] Office Visit On: 20-Jul-2006 13:48 Encounter Reason: Follow up for chronic medical issues - The patient feels well with no complaints ,has good energy level and is sleeping well. Patient has been compliant with instructions. Current medication use: no divya End: 20-Jul-2006 14:13 e effects. Patient sleeps 7 hours per night. Impact of disease: no overall impact. Nutrition: balanced diet. The medical issues the patient is following up for include cardiac issues (AFIB) ,hypothyroid and other (mitral valve repair, CMP, ovarian cyst). blood pressure range : (115/70). Encounter Diagnosis: Cardiomyopathy(425.4), Hypertension (401.0), Hypothyroidism (244.9), Skin tags (701.9), Mitral stenosis with insufficiency (394.2), Diverticulosis (562.10), Hysterectomy; Abdominal, Other and unspecified ovarian cyst (620.2), Atrial fibrillation (427.31), Hypercholesterolemia (272.0) [facility] Historical Summary On: 14-Jul-2006 14:40 [facility] End: 14-Jul-2006 14:48 Office Visit On: 08-Jul-2006 14:15 Encounter Reason: Nasal congestion - The onset of the nasal congestion has been acute (X 1 week) and has been occurring in a persistent pattern for 1 weeks. The course has been constant. The nasal congestion is described End: 08-Jul-2006 14:38 as mild. Note for Nasal congestion: alot cough and congestion, not breath while at night, some wheeze, asthma years ago, no problem since, no fevers, start1 week ago, [ADDITIONAL REASON] Nasal discharge - The onset of the nasal discharge has been acute and has been occurring in an intermittent pattern for 1 weeks. The course has been recurrent. The nasal discharge i s described as mild. Note for Nasal discharge: Pt. states started out with sore throat then into cough and cold and st again X 1 week. OTCD with some help but now back Encounter Diagnosis: BRONCHITIS, NOT SPECIFIED ACUTE OR CHRONIC (490.) [facility] Historical Summary On: 30-Jun-2006 14:02 [facility] End: 30-Jun-2006 14:12 Payers MedicareAARP/Deisy Crain; yin guarantor
--- OUTSIDE RECORDS SUMMARY | 2018-09-02 06:55 | XMS RPT_ITS | Continuity of Care Document ---
:1940 Author Organization [facility] Address [address] [facility] [address] [place] [address] Phone Care Team Providers Name Role Phone Tiffaniebonita ANGELIKA, Rianna Unavailable Amanda CHRISTIANSEN, Higinio Longoria Unavailable Turner CHRISTIANSEN, Nahun Plaza Unavailable JohnMcLaren Flint BC, Eugenie Tovar Unavailable Rosa CHRISTIANSEN, Susan Sánchez Unavailable Nahun Vazquez Unavailable Waleska Freitas Unavailable Unavailable Giselle Silva LPN Unavailable Unavailable Kelly Naqvi Unavailable Unavailable Manny Saldana Unavailable Unavailable Unavailable Unavailable Problems Name Dates Details Abnormal lung sounds (R09.89, 786.7) Status: Active Anemia (D64.9, 285.9) Status: Active Anticoagulated (Z79.01, V58.61) Comments: followed by Tova, on coumadin Status: Active Asthma, mild intermittent (J45.20, 493.90) Comments: taking Breo and proair air prn Status: Active Atrial fibrillation (I48.91, 427.31) Comments: back on coumadin follows with Tova on pacerone EF 45% sees Sibilianew onset with hospitalization 5-29, cardioverted, was on coumadin Mar 2011 Status: Active 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 Patel given hose and pill called Vasculera he will follow up end of e feels worsening since laser Ablation of rt [...] on exertion (R06.02, 786.05) Comments: Stress ECho 11-23-19 EF 55%, Echo annuloplasty ring in mitral [...] days Quantity: 30 {Tablet} Refills: 0 Ordered:28-Jan-2016 Sarai Bro CNP, CNP, Mary E Start : 28-Jan-2016 Active Comments:Medication taken as [...] daily for 360 days Refills: 0 Ordered:11-Feb-2015 Sarai Bro CNP, CNP, Mary E Start : 11-Feb-2015 Active Breo Ellipta 100-25 MCG/INH Inhalation Aerosol Powder Breath Activated 1 (one) Puff qd for 30 days Quantity: 30 {Inhalation} Refills: 4 Ordered:27-Jun-2018 Sarai Bro CNP, CNP Rianna Start : 27-Jun-2018 Active Comments:diane manages CALCIUM, 500MG (Oral Tablet) 2 (two) Tablet qd for 0 days Refills: 0 Ordered:22-Apr-2011 Giselle Silva LPN Start : 22-Apr-2011 Active COQ10, 100MG (Oral [...] days Quantity: 60 {Tablet} Refills: 3 Ordered:31-Mar-2016 Giselle Silva LPN Start : 31-Mar-2016 Active Synthroid 25 MCG Oral Tablet 1 Tablet QD for 0 days Quantity: 90 {Tablet} Refills: 3 Ordered:01-May-2018 Hang CARNEY, Sarai Jung CNP Start : 01-May-2018 Active Vasculera Oral Tablet 1 (one) Tablet Tablet daily for 0 days Quantity: 30 {Tablet} Refills: 0 Ordered:05-Oct-2016 Sarai Bro CNP, CNP, Mary E Start : 05-Oct-2016 Active Comments:Dr Patel Vitamin D 2000 UNIT Oral Capsule 1 (one) Capsule Capsule daily for 30 days Quantity: 30 {Capsule} Refills: 11 Ordered:02-Mar-2018 Hang CARNEY, Sarai Jung CNP Start : 26-Nov-2017 Active ALBUTEROL SULFATE HFA, 108MCG/ACT (Inhalation Aerosol [...] days Quantity: 28 {Tablet} Refills: 0 Ordered:25-Jul-2014 Sarai Bro CNP, CNP, Mary E Start : 25-Jul-2014 End : 08-Aug-2014 Inactive B-12 1000 MCG Oral Tablet Extended Release 1 (one) Tablet ER weekly for 360 days Refills: 0 Ordered:13-Apr-2017 Hang CARNEY, Sarai Ace CNP, Sarai Moon Start : 13-Apr-2017 End : 08-Apr-2018 Inactive [...] {Capsule} Refills: 0 Ordered:18-Aug-2013 Hang CARNEY, Sarai Ace CNP, Sarai Moon Start : 18-Aug-2013 End : 28-Aug-2013 Inactive DRISDOL, [id number] (Oral Capsule) 1 Capsule twice weekly for [...] : 18-Jan-2012 End : 25-Jul-2014 Inactive Comments:per Tova L-THYROXINE, 25MCG (PO Tab) 1 qd for 0 days Refills: 0 Ordered:18-Feb-2007 Laurence Moreno End : 16-Jun-2007 Inactive PRAVASTATIN SODIUM, 40MG (Oral Tablet) 1 Tablet QD for 0 days Quantity: 30 {Tablet} Refills: 6 Ordered:22-Apr-2011 Penny Irving LPN Start : 21-Oct-2010 End : 22-Apr-2011 Inactive PredniSONE 10 MG Oral Tablet 3 (three) Tablet daily for 7 days Quantity: 21 {Tablet} Refills: 0 Ordered:15-Nov-2017 Sarai Bro CNP, CNP Rianna Start : 15-Nov-2017 End : 22-Nov-2017 [...] 19-Oct-2017 Discontinued LOTREL, 5-20MG (Oral Capsule) 1 Capsule qd for 0 days Refills: 0 Ordered:20-Jul-2006 aLurence Moreno Start : 20-Jul-2006 End : 20-Jul-2006 Discontinued LOTREL, 5-20MG (Oral Capsule) 1 qd for 0 days Refills: 0 Ordered:28-May-2008 Laurence Moreno End : 20-Jul-2006 Discontinued Medrol 4 MG [...] days Quantity: 60 {Capsule} Refills: 0 Ordered:10-May-2015 Giselle Silva LPN Start : 22-Apr-2011 End : 10-May-2015 Discontinued ProAir HFA 108 (90 Base) MCG/ACT Inhalation Aerosol Solution 2 (two) Aerosol Soln tid for 0 days Quantity: 1 {Inhalation} Refills: 6 Ordered:19-Oct-2017 Manny Saldana Start : 07-Sep-2017 End : 19-Oct-2017 Discontinued Zithromax Z-Kevin 250 MG Oral Tablet 1 Tablet uad for 0 days Quantity: 1 {Package} Refills: 0 Ordered:27-Jun-2018 Waleska Freitas Start : 18-May-2018 End : 27-Jun-2018 Discontinued ZYRTEC ALLERGY, 10MG (Oral Tablet) 1 [...] Inactive as of 02-Mar-2018 Bronchitis (J40, 490) 30-Mar-2012 Comments: mucinex Status: Inactive as of 13-Apr-2017 [...] Lower Extremity Result: Comments: See Note; NOTES: [facility] Cardiovascular Services [address] [place] [address] Venous Duplex US - Paulie Extrem 04/07/18 1000 MR#: [id number] Acct: [id number] Name: VALERIE CRAIN Rep #: [id number] : 1940 77 From: Higinio Patel MD Attending Dr: Higinio Patel MD Status: REG CLI Ordering Dr: Higinio Patel MD Date: 04/07/18 Location: [facility] Sex: F C Admitted: Reason For Study: [...] Date Higinio Patel MD CC: Sarai Bro URBAN DESIGN CONSULTANT; Higinio Patel MD Date Dictated: 04/07/18 1000 Date Transcribed: 04/08/18 1608 Buckle And Button Maker: Signed 02-Mar-2018 Femur Min 2 Views Result: Comments: See Note; NOTES: [facility] Imaging Services [address] [place] [address] Femur Min 2 Views MR#: [id number] Acct: [id number] Name: VALERIE CRAIN Rep #: [id number] : 1940 F 77 From: Christiano Croft MD PCP: Sarai Bro NP Status: REG CLI Study: Femur Min 2 Views Date of Exam: 03/02/18 Exam# [id number] Ordering Dr: Sarai Bro STUDY: X-RAY - [...] vice support , CC: Sarai Bro NP Buckle And Button Maker: Signed 10-Feb-2018 Echocardiogram Complete Result: Comments: See Note; NOTES: [facility] Cardiovascular Services [address] [place] [address] Echo Complete 02/10/18 1100 MR#: [id number] Acct: [id number] Name: VALERIE CRAIN Rep #: [id number] : 1940 77 From: Amilcar Paz MD Attending Dr: Jennifer Goodwin Status: REG CLI Ordering Dr: Jennifer Goodwin Date: 02/10/18 Location: [facility] Sex: F C Admitted: [facility] For Study: DYSPNEA Procedure This was a [...] Ordering Physician: Jennifer Goodwin/Amilcar Paz Referring Physician: SARAI BRO Performed By: Mary Hines, RDCS, RVT 02/10/18 1241 Date Amilcar Paz MD CC: Sarai Bro URBAN DESIGN CONSULTANT; Jennifer Goodwin Date Dictated: 02/10/18 1100 Date Transcribed: 02/10/18 1241 Buckle And Button Maker: Signed 28-Jan-2018 Cardiology Visit Report Result: Comments: See Note; NOTES: [facility] [address] [place] [address] OFFICE VISIT Date of Service: 01/28/18 MR#: [id number] Acct: [id number] Name: VALERIE CRAIN Rep #: [id number] : 1940 Provider: Jennifer Goodwin Age/Sex: 77/F Location: [facility] Status: Signed HPI HPI Details: VALERIE CRAIN, [...] for her age. 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 She does have [...] valve disorder (Chronic) Paroxysmal atrial fibrillation (Chronic) nursing home (current) use of anticoagulants (Chronic) Benign essential HTN (Chronic) Surgical History History of appendectomy (Resolved) H/O mitral valve repair (Chronic) Family History Father Decea sed, age 48 from [place] CAD (coronary artery disease) Sudden cardiac Myocardial [...] was generated using a voice recognition syst ConnectToHome and there may be incorrect words, spelling or punctuation errors that were not noted when reviewing the office note prior to saving. 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 This patient may have a combination of pa per and electronic documentation or all paper documentation. All documentation is viewable within the e-chart portion of [employer] for each patient visit. 09-Nov-2017 Dexa Bone Density Study Result: Comments: See Note; NOTES: [facility] Imaging Services [address] [place] [address] Dexa Bone Density Study MR#: [id number] Acct: [id number] Name: VALERIE CRAIN Rep #: [id number] : 1940 F 77 From: Henry Jones MD PCP: Sarai Bro NP Status: REG CLI Study: Dexa Bone Density Study Date of Exam: 11/09/17 Exam# [id number] Ordering Dr: Sarai Bro STUDY: DUAL E [...] Henry Jones MD at 13:40 EDT Tel [phone], Service support , CC: Sarai Bro NP Buckle And Button Maker: Signed 27-Jul-2017 Cardiology Visit Report Result: Comments: See Note; NOTES: [facility] [address] [place] [address]. [address] [place] [address] OFFICE VISIT Date of Service: 07/27/17 MR#: [id number] Acct: [id number] Name: SEAN CRAIN #: [id number] : 1940 Provider: Amilcar Paz MD Age/Sex: 77/F Location: [facility] Status: Signed HPI 6 M FU (pt [...] 07/27/17] Ejection fraction %: 40 to 44 PENDING SALE TO [facility] Medical History Dilated cardiomyopathy (Chronic) Long-term use of high-risk medication (Chronic ) History of mitral valve disorder (Chronic) Paroxysmal atrial fibrillation (Chronic) nursing home (current) use of anticoagulants (Chronic) Benign essential HTN (Chronic) Dyslipidemia (Chronic) mitral maria m vuplasty (Chronic) Surgical History H/O mitral valve repair (Chronic) Family History Father , age 48 from [place] CAD (coronary artery disease) Sudden cardiac Myocardial [...] Signature: Date (if applicable) CC: Sarai Bro URBAN DESIGN CONSULTANT 17-May-2017 SCREENING MAMM (CAD), BILAT Result: Comments: See Note; NOTES: [facility] Imaging Services [address] [place] [address] SCREENING MAMM (CAD), BILAT MR#: [id number] Acct: [id number] Name: SEAN CRAIN Rep #: [id number] : 1940 F 76 From: Henry Jones MD PCP: Sarai Bro Status: REG CLI Study: SCREENING MAMM (CAD), BILAT Date of Exam: 05/17/17 Exam# [id number] Ordering Dr: Sarai Bro MAMMOGRAPH Y - [...] delay biopsy of a clinically suspicious abnormality. [id number] Electronically Signed: Henry Jones MD at 10:21 EDT Tel [phone], Service support , CC: Sarai Bro Buckle And Button Maker: Signed 27-Feb-2017 Carotid Duplex Ultrasound Result: Comments: See Note; NOTES: [facility] Cardiovascular Services [address] [place] [address] Carotid Duplex Ultrasound 02/26/17 1046 MR#: [id number] Acct: [id number] Name: SEAN ABEBE Rep #: [id number] : 1940 76 From: Malcolm Hill MD Attending Dr: Jennifer Goodwin Status: REG CLI Ordering Dr: Jennifer Goodwin Date: 02/26/17 Location: [facility] Sex: F C Admitte d: Reason For [...] Malcolm Hill MD CC: Sarai Bro; Jennifer Goodwin Date Dictated: 02/26/17 1046 Date Transcribed: 02/27/17 1103 Buckle And Button Maker: Signed 03-Sep-2016 Chest PA and Lateral Result: Comments: See Note; NOTES: [facility] Imaging Services [address] [place] [address] Verdana 4d Chest PA and Lateral MR#: [id number] Acct: [id number] Name: SEAN CRAIN Rep # : [id number] : 1940 F 76 From: Henry Jones MD PCP: Sarai Bro Status: REG CLI Study: Chest PA and Lateral Date of Exam: 09/03/16 Exam# [id number] Ordering Dr: Nahun Vazquez MD STUD Y: [...] Henry diop MD at 12:41 EST Tel [phone], Service support [phone], CC: Sarai Bro; Nahun Vazquez MD Buckle And Button Maker: Signed 28-Aug-2016 Echocardiogram Complete Result: Comments: See Note; NOTES: [facility] Cardiovascular Services [address] [place] [address] Echo Complete 08/28/16 1003 MR#: [id number] Acct: [id number] Name: SEAN CRAIN p #: [id number] : 1940 76 From: Amilcar Paz MD Attending Dr: Tova CHRISTIANSEN,Amilcar Status: REG CLI Ordering Dr: Amilcar Paz MD Date: 08/28/16 Location: [facility] Sex: F C Admitted: Reason For Study: AT [facility] Procedure This was a 2D [...] Dictated: 08/28/16 1003 Date Transcribed: 08/28/16 1225 Buckle And Button Maker: Signed 24-Apr-2016 Bilat Scrn Digital AND CAD Result: Comments: See Note; NOTES: [facility] Imaging Services [address] [facility] [place] [address] Verdana 4d Bilat Scrn Digital AND CAD MR#: [id number] Acct: [id number] Name: SEAN CRAIN Rep #: [id number] : 1940 F 75 From: Henry Jones MD PCP: Sarai Bro Status: REG CLI Study: Bilat Scrn Digital AND CAD Date of Exam: 04/24/16 Exam# [id number] Ordering Dr: Sarai Bro MAMMOGRAPHY - BILATERAL [...] significant change since the prior study. ___ HPBI/Bilat Scrn Digital AND CAD IMPRESSION: Stable bilateral screening mammogram. Yearly follow-up mammogram recommended. (A) ASSESSMENT CATEGORY: BIRADS Category 1: Negative. A letter regarding these results will be sent to the patient by the facility within 30 days. Approximately 10% of breast cancers are n ot detected by mammography. A normal mammogram should not delay biopsy of a clinically suspicious abnormality. [id number] Electronically Signed: Henry Jones MD at 10:58 EDT Tel [phone], Service support [phone], CC: Sarai Bro Buckle And Button Maker: Signed 04-Mar-2016 PT D/C Summary (1) Result: Comments: See Note; NOTES: [facility] Physical Therapy [facility] [address] [place] [address] Fax REHABILITATION [facility] DISCHARGE SUMMARY MR#: [id number] Acct: [id number] Name: SEAN CRAIN Rep #: [id number] : 1940 75 From: Giselle Yan MPT Referring Dr.: Sarai Bro Status: REG RCR Insurance: MEDICARE PART A B AARP HP - PT D/C Summary It has been my pleasure to treat SEAN CRAIN under orders from Sarai Bro, for [...] please feel free to call me at [phone]. Thank you for the referral of this patie nt. Sincerely, Giselle Yan <Electronically signed by Giselle Yan MPT> 03/04/161916 CC: Sarai Bro Signed 04-Feb-2016 Inital Evaluation (1) - PT Result: Comments: See Note; NOTES: [facility] Physical Therapy [facility] [address] [place] [address] Fax [facility] INITIAL EVALUATION MR#: [id number] Acct: [id number] Name: SEAN CRAIN Rep #: [id number] : 1940 75 From: Giselle NELSON Referring Dr.: Sarai Bro Status: REG RCR Insurance: MEDICARE PART A B [facility] Patient's Visit Information SEAN CRAIN is [...] to be FAXED BACK to us at [phone] for Medicare purposes . Please let me know if there are questions or concerns regarding this plan of care. Physician Signature: Date: <Electronical ly signed by Giselle Yan MPT> 02/04/16 8020 CC: Sarai Morenoesa Signed For Medicare only, by signing this I certify the plan of care. Physicians Signature Date 28-Jan-2016 Knee 4 or More Views Result: Comments: See Note; NOTES: [facility] Imaging Services [address] [place] [address] Verdana 4d Knee 4 or More Views MR#: [id number] Acct: [id number] Name: SEAN DWYER Rep #: [id number] : 1940 F 75 From: Shreyas Beaver MD PCP: Sarai Bro Status: REG CLI Study: Knee 4 or More Views Date of Exam: 01/28/16 Exam# [id number] Ordering Dr: Sarai Bro STUDY: X-RAY - [...] MD at 19:39 EDT , Service support [phone], ORDER # : [id number] RAD/Knee 4 or More Views IMPRESSION: No acute abnormality. Mild degenerative changes. Electronically Signed: Shreyas Beaver MD at 19:39 EDT , Service sup port [phone], CC: Sarai Bro Buckle And Button Maker: Signed 28-Jan-2016 L/S Spine Min 4 Views Result: Comments: See Note; NOTES: [facility] Imaging Services [address] [place] [address] Verdana 4d L/S Spine Min 4 Views MR#: [id number] Acct: [id number] Name: SEAN BERRIOS Rep #: [id number] : 1940 F 75 From: Shreyas Beaver MD PCP: Sarai Bro Status: REG CLI Study: L/S Spine Min 4 Views Date of Exam: 01/28/16 Exam# [id number] Ordering Dr: Shital Bro STUDY: X-RAY - [...] MD at 19:40 EDT , Service support [phone], Fax RAD/L/S Spine Min 4 Views IMPRESSION: No acute abnormality. Mild to moderate degenerative changes. Electronically Signed: Shreyas Beaver MD at 19:40 EDT T el [phone], Service support [phone], CC: Sarai Bro Buckle And Button Maker: Signed 19-Mar-2015 Dexa Bone Density Study (HP) Result: Comments: See Note; NOTES: [facility] Imaging Services [address] [place] [address] Bone Density Report MR#: [id number] Acct: [id number] Name: SEAN CRAIN Rep #: [id number] : 1940 F 74 From: Henry Jones MD PCP: Sarai Bro Status: REG CLI Study: Dexa Bone Density Study (HP) Date of Exam: 03/19/15 Exam# [id number] Ordering Dr: Sarai Bro STUD Y: DUAL [...] Henry Jones MD at 14:35 EDT Tel [phone], Servic e support [phone], CC: Sarai Bro Buckle And Button Maker: Signed 12-Mar-2015 Bilat Scrn Digital AND CAD Result: Comments: See Note; NOTES: [facility] Imaging Services [address] [place] [address] Breast Imaging Report MR#: [id number] Acct: [id number] Name: SEAN CRAIN Rep #: [id number] : 1940 F 74 From: Henry Jones MD PCP: Sarai Bro Status: REG CLI Study: Bilat Scrn Digital AND CAD Date of Exam: 03/12/15 Exam# [id number] Ordering Dr: Sarai Bro MAMM OGRAPHY - [...] suspicious abnormality. Electronically Signed: Henry Jones MD 20 23/03/04 at 9:59 EDT Tel [phone], Service support [phone], CC: Sarai Bro Buckle And Button Maker: Signed 16-Jan-2015 Operative Report Result: Comments: See Note; NOTES: [facility] Medical Records Department [address] [place] [address] Operative Report MR#: [id number] Acct: [id number] Name: SEAN CRAIN Rep #: [id number] : 1940 74 From: Amilcar Paz MD PCP: Sarai Bro Status: REG CLI DATE OF SERVICE: PROCEDURE: The patient presents for direct current cardioversion. INDICATIONS: Atrial fibrillation, persistent. The patient is status post mitral valve repair. DESCRIPTION OF PROCEDURE: The patient is a 74-year-old lady with a history of mitral valve repair in 1999 and atrial fibril lation. She has been appropriately anticoagulated and was brought to the cardiac catheterization lab in the postabsorptive nonsedated state. She was seen by Dr. Waite at the critical care division an d [...] care. Amilcar Paz MD T: NTS JOB: [id number] 01/16/15 0901 <Electronically signed by Amilcar Paz MD&amp ;#62; Date Amilcar Paz MD CC: Sarai Bro; Amilcar Paz MD Date Dictated: 01/14/151318 Date Transcribed: 01/14/151318 Buckle And Button Maker: Signed 15-Jan-2015 Consultation Result: Comments: See Note; NOTES: [facility] Medical Records Department [address] [place] [address] Consultation MR#: [id number] Acct: [id number] Name: SEAN CRAIN Rep #: [id number] : 1940 74 From: Armando Waite MD PCP: Sarai Bro Status: REG CLI [...] appendectomy in the past without complications. The fatuma whyte reports her last meal was last night [...] None. RECOMMENDATIONS: Recovered in the usual fashion. MD Nelson HENDERSON C: Amilcar Bro T: SHARMAINE JOB: [id number] 01/15/15 0643 <Electronically signed by Armando Waite MD> Date Armando Waite MD CC: Sarai Bro; Armando Waite MD; Amilcar Paz MD Date Dictated: 01/14/15 1357 Date Transcribed: 01/14/151356 Buckle And Button Maker: Signed 07-Jan-2015 Chest PA and Lateral Result: Comments: See Note; NOTES: [facility] Imaging Services [address] [place] [address] Radiology Report MR#: [id number] Acct: [id number] Name: SEAN CRAIN Rep #: [id number] : 1940 F 74 From: Henry Jones MD PCP: Sarai Bro Status: PRE CLI Study: Chest PA and Lateral Date of Exam: 01/07/15 Exam# [id number] Ordering Dr: Amilcar Paz MD STUDY: X-RA [...] Henry Jones MD at 14:28 EDT Tel [phone], Service support [phone], RAD/Chest PA and Lateral IMPRESSION: Hyperinflation. No acute abnormality is seen. Electronically Signed: Henry Jones MD 2014 at 14:28 EDT Tel [phone], Service support [phone], CC: Sarai Bro; Amilcar Paz MD Buckle And Button Maker: Signed 24-Dec-2014 Echocardiogram Complete Result: Comments: See Note; NOTES: [facility] Cardiovascular Services [address] [place] [address] Echo Complete 12/24/14 1003 MR#: [id number] Acct: [id number] Name: SEAN CRAIN Rep #: [id number] : 1940 74 From: Amilcar Paz MD Attending Dr: Jennifer Mornoe Status: REG CLI Ordering Dr: Jennifer Monroe Date: 12/24/14 Location: [facility] Sex: F C Admitted: Jose Alfredo alegria This was a 2D Doppler, Color Flow [...] 1359 Date Amilcar Paz MD CC: Sarai Monroe Date Dictated: 12/24/14 1003 Date Transcribed: 12/24/14 1359 Buckle And Button Maker: Signed 19-Jul-2014 Hip min 2 Views Result: Comments: See Note; NOTES: [facility] Imaging Services [address] [place] [address] Radiology Report MR#: [id number] Acct: [id number] Name: SEAN CRAIN Rep #: [id number] : 1940 F 74 From: Henry Jones MD PCP: Sarai Bro Status: REG CLI Study: Hip min 2 Views Date of Exam: 07/19/14 Exam# [id number] Ordering Dr: Sarai Bro STUDY: X-RAY - [...] Henry Jones MD at 11:38 EST Tel [phone], Service support [phone], RAD/Hip min 2 Views IMPRESSION: Degenerative changes of the hip. Electronically Signed: Henry Jones MD at 11:38 EST Tel [phone], Service support [phone], CC : Sarai Bro Buckle And Button Maker: Signed 19-Jul-2014 L/S Spine Min 4 Views Result: Comments: See Note; NOTES: [facility] Imaging Services [address] [place] [address] Radiology Report MR#: [id number] Acct: [id number] Name: SEAN CRAIN Rep #: [id number] : 1940 F 74 From: Henry Jones MD PCP: Sarai Bro Status: REG CLI Study: L/S Spine Min 4 Views Date of Exam: 07/19/14 Exam# [id number] Ordering Dr: Sarai Bro STUDY: X-RAY - [...] Henry Jones MD at 13:19 EST Tel [phone], Service support [phone], CC: Sarai Bro Buckle And Button Maker: Signed 05-Jan-2014 Bilat Scrn Digital & CAD Result: Comments: See Note; NOTES: [facility] Imaging Services [address] [facility] [address] [place] [address] Breast Imaging Report MR#: [id number] Acct: [id number] Name: SEAN CRAIN Rep #: [id number] : 1940 F 73 From: Henry Jones MD PCP: Status: REG CLI Exam# [id number] Ordering Dr: Sarai Bro MAMMOGRAPHY - BILATERAL [...] Henry Jones MD at 9:58 EDT Tel [phone], Service support [phone], CC: Sarai Bro; Amilcar Paz MD Buckle And Button Maker: Signed Immunization Name Dates Details Influenza (3 years and up) on: 13-Jun-2008 Influenza (3 years and up) on: 22-May-2009 Comments: Lot #[id number] deltoidgiven by:CDH Family History Unknown Family Member Name Dates Details Father Comments: [place] at 48 & Status: Active Social History Name Dates Details Caffeine Use Comments: 2 cups coffee qd 1 soda qod Status: Active 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 Status: Inactive Tobacco use: Never smoker. Status: Inactive Vital Signs Date Test Result Details :17 Temperature 97.8 f Comments: Method: Temporal Pulse 61 /min Comments: Pattern: Regular Respiration Rate 17 /min Comments: Pattern: Unlabored O2 SAT 94 % Comments: Room air BP Systolic 152 mm[Hg] Comments: Patient Position: Sitting; Cuff Location: Left Arm; Cuff Size: Standard BP Diastolic 88 mm[Hg] Comments: Patient Position: Sitting; Cuff Location: Left Arm; Cuff Size: Standard Weight 183 lb Height 64 in Body Mass Index Calculated 31.41 kg/m2 Body Surface Area Calculated 1.88 m2 47-Pqz-250580:20 Temperature 99.4 f Comments: Method: Temporal Pulse [...] kg/m2 Body Surface Area Calculated 1.87 m2 :30 Temperature 97.7 f Comments: Method: Temporal Pulse [...] kg/m2 Body Surface Area Calculated 1.86 m2 :20 Temperature 98.2 f Pulse 67 /min Comments: [...] kg/m2 Body Surface Area Calculated 1.82 m2 29-Dzu-229823:57 Temperature 98 f Pulse 60 /min Comments: [...] kg/m2 Body Surface Area Calculated 1.85 m2 :30 Temperature 97.6 f Pulse 58 /min Comments: [...] kg/m2 Body Surface Area Calculated 1.85 m2 :44 Temperature 98 f Comments: Method: Oral Pulse [...] kg/m2 Body Surface Area Calculated 1.81 m2 :30 Temperature 99.2 f Comments: Method: Oral Pulse [...] kg/m2 Body Surface Area Calculated 1.81 m2 :39 Temperature 99 f Comments: Method: Oral Pulse [...] 0.00 cm Results Date Description Value Details 26-Qmu-100597:49 Comprehensive Metabolic Profil Comments: [facility] Ygrakqbjqy2274 [place], [place], [address] GAP 5 (Normal) Range: 5-15 CO2 30.0 mmol/L (Normal) Range: 21.0-32.0 CL 106 mmol/L (Normal) Range: 98-107 K 4.8 mmol/L (Normal) Range: 3.5-5.1 NA 141 mmol/L (Normal) Range: 136-145 T BILI 0.50 mg/dL (Normal) Range: 0.20-1.00 ALT 25 U/L (Normal) Range: 13-56 ALK P 66 U/L (Normal) Range: 45-117 AST 19 U/L (Normal) Range: 15-37 CA 8.6 mg/dL (Normal) Range: 8.5-10.1 A/G 1.1 {RATIO} (Normal) Range: 0.9-2.4 GLOB 3.4 g/dL (Normal) Range: 2.2-4.2 ALB 3.8 g/dL (Normal) Range: 3.2-5.0 T PROT 7.2 g/dL (Normal) Range: 6.4-8.2 BUN/CRE 22.8 {RATIO} (Abnormal) Range: 10-20 EST GFR - AA 68 mL/min (Normal) Comments: GFR Calc EST GFR 56 mL/min (Abnormal) Comments: Non- GFR Calc CREAT,SERUM 1.01 mg/dL (Normal) Range: 0.55-1.02 Comments: The validity of the calculated GFR AND GFRAA in patients over70 years has not been determined. Clinical correlation isessential. BUN 23 mg/dL (Abnormal) Range: 7-18 GLU 86 mg/dL (Normal) Range: 74-106 Comments: Please note revised GLUCOSE reference range wliveiewf51/02/2018. 21-Xsi-814063:49 Lipid Profile Comments: [facility] Cpmfgzppct[address] [place], [place], [phone] VLDL 25 mg/dL (Normal) Range: 5-40 LDL 88 mg/dL (Normal) Range: 0-130 HDL 69 mg/dL (Normal) Comments: The drugs N-Acetylcysteine and Metamizole may falselydepress this assay. Reference Range HDL <40 mg/dL Low HDL Cholesterol HDL >or= 60 mg/dL High HDL Cholesterol TRIG 125 mg/dL (Normal) Comments: The drugs N-Acetylcysteine and Metamizole may falselydepress this assay.Serum Triglycerides Reference Interval Normal <150 mg/dL Borderline high 150 - 199 mg/dL High 200 - 499 mg/dL Very High > or = 500 mg/dL CHOL 182 mg/dL (Normal) Comments: <200 mg/dL Desirable 200-240 mg/dL Borderline >240 mg/dL High Risk 54-Vzj-692646:49 Prothrombin Time w/INR Comments: Comments: STANDING ORDERComments: STANDING [facility] Hciigddxvr6[address] [place], [place], [phone] INR 2.8 (Normal) PROTIME 29.6 s (Abnormal) Range: 11.7-14.9 1-Kok-167960:18 Prothrombin Time w/INR Comments: [facility] Vxpyosasks5275 [place], [address] INR 2.7 (Normal) PROTIME 28.4 s (Abnormal) Range: 11.7-14.9 37-Cgx-289954:14 Prothrombin Time w/INR Comments: [facility] [address] [place], [id number] INR 2.2 (Normal) PROTIME 24.6 s (Abnormal) Range: 11.7-14.9 46-Guz-858128:18 Prothrombin Time w/INR Comments: [facility] [address] [place], [id number] INR 2.2 (Normal) PROTIME 24.3 s (Abnormal) Range: 11.7-14.9 20-Wup-591225:26 Prothrombin Time w/INR Comments: [facility] [address] [place], [id number] INR 2.2 (Normal) PROTIME 24.6 s (Abnormal) Range: 11.7-14.9 12-Qhq-091953:13 Prothrombin Time w/INR Comments: [facility] Vbdblbuqmt0262 [place], [id number] INR 2.3 (Normal) PROTIME 25.7 s (Abnormal) Range: 11.7-14.9 :58 Prothrombin Time w/INR Comments: [facility] Smrklywejt7[address] [place], [id number] INR 2.0 (Normal) PROTIME 22.8 s (Abnormal) Range: 11.7-14.9 :45 CBC W/Diff, Automated Comments: [facility] [address] [place], [id number] ; another Absolute Lymph 2.13 {X10_3/ul} (Normal) [...] 4.2-5.4 WBC 5.6 K/mm3 (Normal) Range: 4.4-11.0 01-Hyd-62859:45 Comprehensive Metabolic Profil Comments: [facility] Mjlpfugssn9231 [address] [place], [place], [id number] ; Dr Paz GAP 8 (Normal) Range: 5-15 CO2 28.0 [...] Comments: Please note revised GLUCOSE reference range uddrisklq75/02/2018. 79-Zjn-75563:45 Lipid Profile Comments: [facility] Jkxpyvpgec1022 [address] [place], [place], [phone] VLDL 17 mg/dL (Normal) Range: 5-40 LDL [...] 200-240 mg/dL Borderline >240 mg/dL High Risk 91-Hqu-95393:45 Microalb:Creat Ratio,Random UR Comments: [facility] [address]kejfrmx30[address] [place], [address] MALB:CREAT 8.4 {mg/g_CRE} (Normal) MICROALBUMIN,UR 13.5 mg/L (Normal) UR CREAT 160.00 mg/dL (Normal) 11-Pdg-73030:45 Prothrombin Time w/INR Comments: [facility] Natdfnqhzf3168 [place], [address] INR 1.9 (Normal) PROTIME 21.5 s (Abnormal) Range: 11.7-14.9 Comments: ADDENDA: cardio 00-Hmn-32955:45 Thyroid Stim Hormone (TSH) Comments: [facility] Bgoqxecqdc3730 [place], [address] TSH 2.92 {uIU/mL} (Normal) Range: 0.358-3.74 95-Zkr-53661:45 Urinalysis, Routine (Dipstick) Comments: How was Urine Obtained? CLEAN [facility] Sglpqzplwf7469 [place], [address] ; other doc LEUK ESTERASE 100 /ul (Abnormal) OCCULT BLOOD-UR 50 /ul (Abnormal) NITRITE UR Negative (Normal) UROBILI Normal mg/dL (Normal) PROT DIPSTX Negative mg/dL (Normal) pH UR 6.0 (Normal) Range: 5.0 - 8.0 SP.GR. DIPSTX 1.020 (Normal) Range: 1.002-1.030 KETONE UR Negative mg/dL (Normal) BILIRUBIN URINE Negative mg/dL (Normal) GLUCOSE, UR Normal mg/dL (Normal) CLARITY Cloudy (Normal) COLOR Yellow (Normal) 83-Oil-990745:31 Prothrombin Time w/INR Comments: [facility] [address] [place], [address] INR 2.1 (Normal) PROTIME 23.3 s (Abnormal) Range: 11.7-14.9 2-Qsy-001772:20 Prothrombin Time w/INR Comments: [facility] [address] [place], [address] INR 2.2 (Normal) Comments: ADDENDA: managed by cardio PROTIME 24.1 s (Abnormal) Range: 11.7-14.9 58-Zok-053083:40 Prothrombin Time w/INR Comments: [facility] W[address]zcoz86[address] [place], [address] ; managed by cardio INR 2.0 (Normal) PROTIME 22.9 s (Abnormal) Range: 11.7-14.9 49-Rfb-426888:13 Prothrombin Time w/INR Comments: [facility] Hzwzmywucr4508 [address]. [place], [id number] INR 1.6 (Normal) PROTIME 19.5 s (Abnormal) Range: 11.7-14.9 17-Mtn-332632:28 Prothrombin Time w/INR Comments: [facility] [address] [place], [address] ; cardio INR 1.8 (Normal) PROTIME 19.8 s (Abnormal) Range: 11.7-14.9 7-Qps-002361:53 Prothrombin Time w/INR Comments: [facility] [address] [place], [address] INR 2.4 (Normal) PROTIME 24.8 s (Abnormal) Range: 11.7-14.9 9-Qqj-314161:26 Prothrombin Time w/INR Comments: [place] [address] [place], [address] INR 1.9 (Normal) PROTIME 21.2 s (Abnormal) Range: 11.7-14.9 35-Xwh-805580:42 Rapid Flu (59448 x 2) Influenza A Ag POS B (Normal) 38-Loc-809989:04 Prothrombin Time w/INR Comments: [facility] [address] [place], [place], [address] ; cardio manages INR 1.4 (Normal) PROTIME 16.5 s (Abnormal) Range: 11.7-14.9 09-Wpn-154218:28 Prothrombin Time w/INR Comments: [facility] T[address]op[address]idu0560 [place], [address] INR 1.2 (Normal) PROTIME 14.3 s (Normal) Range: 11.7-14.9 3-Hxr-600533:11 Prothrombin Time w/INR Comments: [facility] Rq[address]xyejd5388 [place], [address] INR 2.0 (Normal) PROTIME 21.6 s (Abnormal) Range: 11.7-14.9 :18 CBC W/Diff, Automated Comments: [facility] [address] [place], [address] Absolute Lymph 2.38 {X10_3/ul} (Normal) [...] Range: 4.4-11.0 :18 Prothrombin Time w/INR Comments: [facility] [address] [place], [address] INR 2.1 (Normal) PROTIME 22.8 s (Abnormal) Range: 11.7-14.9 87-Tid-671985:52 POTASSIUM SERUM (29209) Comments: STAT; Order Date: 07/23/17Order Info: [id number] - KComments: [facility] Deyrzzmtlr1011 [place], [address] K 4.4 mmol/L (Normal) Range: 3.5-5.1 :56 Microscopic Examination Comments: PATIENT NOT FASTINGPERFORMED BY: CB [facility] Eelke[address] [place] [id number] Bacteria Few (Normal) Mucus Threads Present (Normal) Epithelial Cells (non renal) 0-10 {/hpf} (Normal) Range: 0 - 10 RBC 3-10 {/hpf} (Abnormal) Range: 0 - 2 WBC 0-5 {/hpf} (Normal) Range: 0 - 5 :56 VITAMIN B-12 (CYANOCOBALAMIN) Comments: PATIENT NOT FASTINGPERFORMED BY: CB [facility] Jgbtuz0068 [address] [facility] [place] [id number] ([id number]) Vitamin B12 451 pg/mL (Normal) Range: 232-1245 Comments: Please note reference interval change :56 TSH (44057) Comments: PATIENT NOT FASTINGPERFORMED BY: CB [facility] Pujdzw28[address] RoadDublin [place] [id number] TSH 2.910 {uIU/mL} (Normal) Range: 0.450-4.500 :56 URINALYSIS, W/ MICRO (47636) Comments: PATIENT NOT FASTINGPERFORMED BY: CB [facility] Ogvhhh2628 Murray RoadDublin [place] [id number] Microscopic Examination See below: (Normal) Comments: Microscopic was indicated and was performed. Nitrite, Urine Negative (Normal) Urobilinogen,Semi-Qn 0.2 mg/dL (Normal) Range: 0.2-1.0 Bilirubin Negative (Normal) Occult Blood 1+ (Abnormal) Ketones Negative (Normal) Glucose Negative (Normal) Protein Negative (Normal) WBC Esterase Trace (Abnormal) Appearance Clear (Normal) Urine-Color Yellow (Normal) pH 7.0 (Normal) Range: 5.0-7.5 Specific [place] 1.017 (Normal) Range: 1.005-1.030 52-Zyy-249578:56 MICROALBUMIN: CREATININE RATIO Comments: PATIENT NOT FASTINGPERFORMED BY: [facility] CaddiesVirtua VoorheesQcltre3536 [facility] [id number] ([id number]) AND (23279) Microalb/Creat Ratio 7.4 {mg/g_creat} (Normal) Range: 0.0-30.0 Microalbumin, Urine 5.0 ug/mL (Normal) Creatinine, Urine 68.0 mg/dL (Normal) :56 METABOLIC PANEL, COMPREHENSIVE Comments: PATIENT NOT FASTINGPERFORMED BY: [facility] CaddiesVirtua VoorheesHkrpmn3964 [facility] [id number] (81275) ALT (SGPT) 18 [iU]/L (Normal) Range: 0-32 [...] Glucose, Serum 87 mg/dL (Normal) Range: 65-99 11-Pag-521793:56 CBC W/AUTO DIFF WBC (46563) Comments: PATIENT NOT FASTINGPERFORMED BY: [facility] Laijwe6573 [address] [facility] [id number] Immature Grans (Abs) 0.0 {x10E3/uL} (Normal) Range: [...] 3.77-5.28 WBC 11.3 {x10E3/uL} (Abnormal) Range: 3.4-10.8 3-Gfa-118708:38 Prothrombin Time w/INR Comments: [facility] Eleirkpsbx63[address] [place], [place], [phone] INR 2.0 (Normal) PROTIME 22.0 s (Abnormal) Range: 11.7-14.9 64-Dpw-269790:21 Prothrombin Time w/INR Comments: [facility] [address] [place], [id number] INR 2.5 (Normal) PROTIME 26.0 s (Abnormal) Range: 11.7-14.9 :12 Lipid Profile Comments: Order Date: 12/04/16Order Info: [id number] - *Hepatic Function PanelOrder Info: [id number] - *Lipid Profile CC PCPComments: 12 hours fasting, may have water.[facility] [address] [place], [place], [id number] VLDL 21 mg/dL (Normal) Range: 5-40 LDL [...] Info: 0788-1 - *Hepatic Function PanelOrder Info: [id number] - *Lipid Profile CC PCPComments: 12 hours fasting, may have water.[facility] [address] [place], [id number] D BILI 0.09 mg/dL (Normal) Range: 0.00-0.30 T BILI 0.50 mg/dL (Normal) Range: 0.20-1.00 ALT 21 U/L (Normal) Range: 12-78 ALK P 78 U/L (Normal) Range: 45-117 AST 16 U/L (Normal) Range: 15-37 GLOB 3.1 g/dL (Normal) Range: 2.2-4.2 ALB 3.5 g/dL (Normal) Range: 3.4-5.0 Comments: Please note revised Albumin AND Globulin reference rangeeffective 2017. T PROT 6.6 g/dL (Normal) Range: 6.4-8.2 34-Txz-545606:39 Prothrombin Time w/INR Comments: [facility] [address] [place], [place], [address] INR 2.4 (Normal) PROTIME 24.9 s (Abnormal) Range: 11.7-14.9 :43 Prothrombin Time w/INR Comments: [address] [place], [place], [address] INR 2.2 (Normal) PROTIME 23.9 s (Abnormal) Range: 11.7-14.9 :22 CBC W/Diff, Automated Comments: [address] [place], [place], [phone] ; OV 9/5 Absolute Lymph 2.11 {X10_3/ul} [...] Range: 4.4-11.0 09-Apr-20179:22 Comprehensive Metabolic Profil Comments: [facility] Qfxkidrvzj[address] [place], [place], [phone] GAP 7 (Normal) Range: 5-15 CO2 33.0 [...] 70-110 :22 Thyroid Stim Hormone (TSH) Comments: [facility] Xgrdotmavg2466 [address] [place], [phone] TSH 3.52 {uIU/mL} (Normal) Range: 0.358-3.74 :37 Prothrombin Time w/INR Comments: [facility] Odkxwarwum0[address] [place], [address] INR 2.1 (Normal) PROTIME 22.4 s (Abnormal) Range: 11.7-14.9 :12 Prothrombin Time w/INR Comments: PT ORDER IS AND T4 IS [facility] Xpcmvvonjh5083 [address] [place], [phone] INR 2.1 (Normal) PROTIME 23.1 s (Abnormal) Range: 11.7-14.9 28-Evy-212873:11 T4 Total, Thyroxin Comments: Order Date: 02/19/17Order Info: [id number] - *T4 (Total)Comments: Reason:Order Info: [id number] - *[facility] Jlpimmhqnp7913 [address] [place], [id number] T4 THYROXIN 7.2 ug/dL (Normal) Range: 4.8-13.9 65-Owt-457950:11 Thyroid Stim Hormone (TSH) Comments: Order Date: 02/19/17Order Info: [id number] - *T4 (Total)Comments: Reason:Order Info: [id number] - *[facility] Xseoaasctr8863 [address] [place], [id number] TSH 1.56 {uIU/mL} (Normal) Range: 0.358-3.74 :37 Prothrombin Time w/INR Comments: [facility] Kzivsjxbfv6349 [place], [id number] INR 1.9 (Normal) PROTIME 21.4 s (Abnormal) Range: 11.7-14.9 1-Yvg-463561:50 Prothrombin Time w/INR Comments: [facility] Gcwbhqhjro5160 [address] [place], [place], [address](144) INR 2.0 (Normal) PROTIME 21.6 s (Abnormal) Range: 11.7-14.9 84-Mzc-834312:37 Prothrombin Time w/INR Comments: [facility] Gkbpjjoedj8033 [address] [place], [place], [phone](233) INR 2.5 (Normal) PROTIME 25.6 s (Abnormal) Range: 11.7-14.9 87-Ccv-485483:18 Prothrombin Time w/INR Comments: [facility] Dfpzkggcqk0721 [address] [place], [place], [address](044) INR 2.1 (Normal) PROTIME 22.5 s (Abnormal) Range: 11.7-14.9 77-Czt-196001:17 Lipid Profile Comments: Order Date: 06/02/16Order Info: [id number]- [id number] - *Hepatic Function PanelDR.[facility] LIPID LIVEROrder Date: 06/02/16Order Info: [id number] - *Lipid Profile CC PCPComments: 12 hours fasting, may have wate r.[facility] Jgtcztbbdx9866 [address] [place], [place], [address] VLDL 31 mg/dL (Normal) Range: 5-40 LDL [...] 200-240 mg/dL Borderline >240 mg/dL High Risk 64-Vro-328821:17 Liver Profile Comments: Order Date: 06/02/16Order Info: [id number]- [id number] - *Hepatic Function PanelDR.TOVA PTMICHELLE LIPID LIVEROrder Date: 06/02/16Order Info: [id number] - *Lipid Profile CC PCPComments: 12 hours fasting, may have mary saulStaceyUniversity [facility]als [facility] Pjsnedpzld0280 [address] [place], [place], [address] D BILI 0.09 mg/dL (Normal) Range: 0.00-0.30 T BILI 0.50 mg/dL (Normal) Range: 0.20-1.00 ALT 28 U/L (Normal) Range: 12-78 ALK P 93 U/L (Normal) Range: 45-117 AST 21 U/L (Normal) Range: 15-37 GLOB 3.4 g/dL (Normal) Range: 2.3-3.5 ALB 4.0 g/dL (Normal) Range: 3.4-5.0 T PROT 7.4 g/dL (Normal) Range: 6.4-8.2 3-Jpq-070764:32 Prothrombin Time w/INR Comments: [facility] Clpximylgi[address] [place], [place], [address] ; [facility] manages INR 1.8 (Normal) PROTIME 20.2 s (Abnormal) Range: 11.7-14.9 59-Ivx-975657:09 Prothrombin Time w/INR Comments: [facility] Relgqfbfuy5111 [facility] [place], [address] ; [facility] INR 2.1 (Normal) PROTIME 23.1 s (Abnormal) Range: 11.7-14.9 08-Rzk-390886:10 Metabolic Panel, Comprehensive Comments: today; PATIENT NOT FASTINGPERFORMED BY: [facility] Nacctd7382 [facility] [id number] ([id number]) ALT (SGPT) 16 [iU]/L (Normal) Range: 0-32 [...] Glucose, Serum 89 mg/dL (Normal) Range: 65-99 25-Rms-764582:26 Prothrombin Time w/INR Comments: [facility] V[address]grtguvf52[address] [place], [address] INR 2.2 (Normal) PROTIME 23.7 s (Abnormal) Range: 11.7-14.9 36-Tfe-551049:52 CBC-Complete Blood Cnt No Diff Comments: [facility] Npgenrjxjx3728 [address] [place], [place], [address] ; sibilia MPV 10.8 fL (Normal) Range: [...] 4.2-5.4 WBC 7.4 K/mm3 (Normal) Range: 4.4-11.0 :58 Prothrombin Time w/INR Comments: [facility] [address] [place], [place], [address] INR 2.0 (Normal) PROTIME 22.4 s (Abnormal) Range: 11.7-14.9 52-Ruw-385610:49 Prothrombin Time w/INR Comments: [facility] Gzejdufkij4944 [facility] [place], [place], [phone](191) INR 2.0 (Normal) PROTIME 22.3 s (Abnormal) Range: 11.7-14.9 :54 CBC WITH MANUAL DIFF (63589) Comments: PATIENT NOT FASTINGPERFORMED BY: LabCoVirtua VoorheesQzdjdx4609 [facility] [id number] Immature Grans (Abs) 0.0 {x10E3/uL} (Normal) Range: [...] 3.77-5.28 WBC 6.2 {x10E3/uL} (Normal) Range: 3.4-10.8 56-Vro-621360:54 Metabolic Panel, Comprehensive Comments: PATIENT NOT FASTINGPERFORMED BY: [facility] Hnbclm4782 [facility] [id number] ([id number]) ALT (SGPT) 18 [iU]/L (Normal) Range: 0-32 [...] Glucose, Serum 86 mg/dL (Normal) Range: 65-99 :54 TSH (46789) Comments: PATIENT NOT FASTINGPERFORMED BY: LabCoVirtua VoorheesGwimup7594 [facility] [id number] TSH 2.890 {uIU/mL} (Normal) Range: 0.450-4.500 48-Mxp-682220:23 Prothrombin Time w/INR Comments: [facility] Ljpdfkvtpv9927 [place], [address] ; managed by cardio INR 2.6 (Normal) PROTIME 27.4 s (Abnormal) Range: 11.7-14.9 :54 Prothrombin Time w/INR Comments: [facility] [address] [place], [place], [address] ; another doc INR 2.0 (Normal) PROTIME 22.3 s (Abnormal) Range: 11.7-14.9 :53 Lipid Profile Comments: Order Date: 05/22/16OV Order #: [id number] [facility] Hospital Mpahzikcwx6834 [address] [place], [place], [id number] VLDL 21 mg/dL (Normal) Range: 5-40 LDL [...] Risk :53 Liver Profile Comments: Order Date: 05/22/16OV Order #: [id number] Deaconess Hospital Iqzyphbukf5312 [address] [place], [place], [id number] D BILI < 0.05 mg/dL (Normal) Range: 0.00-0.30 T BILI 0.30 mg/dL (Normal) Range: 0.20-1.00 ALT 24 U/L (Normal) Range: 12-78 ALK P 82 U/L (Normal) Range: 50-136 AST 19 U/L (Normal) Range: 15-37 Comments: Slight Hemolysis, Result may be falsely increased. GLOB 3.3 g/dL (Normal) Range: 2.3-3.5 ALB 3.6 g/dL (Normal) Range: 3.4-5.0 T PROT 6.9 g/dL (Normal) Range: 6.4-8.2 66-Cww-787861:09 Prothrombin Time w/INR Comments: [facility] Qcxvdwykma2642 [address] [place], [place], [address] INR 2.5 (Normal) PROTIME 26.3 s (Abnormal) Range: 11.7-14.9 :59 Prothrombin Time w/INR Comments: [facility] Zipahcbsem79[address] [place], [place], [address] ; managed by cardio INR 2.9 (Normal) PROTIME 29.3 s (Abnormal) Range: 11.7-14.9 :05 Prothrombin Time w/INR Comments: [facility] Dokuhxmfnk8746 [address] [place], [place], [address] INR 2.0 (Normal) PROTIME 22.3 s (Abnormal) Range: 11.7-14.9 :11 Prothrombin Time w/INR Comments: [facility] [address] [place], [address] INR 2.7 (Normal) Comments: ADDENDA: managed by cardio PROTIME 27.7 s (Abnormal) Range: 11.7-14.9 :14 Prothrombin Time w/INR Comments: [facility] [address] [place], [address] ; managed by [employer] INR 2.7 (Normal) PROTIME 28.1 s (Abnormal) Range: 11.7-14.9 :45 Prothrombin Time w/INR Comments: [facility] [address] [place], [address] ; managed by cardio INR 3.1 (Normal) PROTIME 31.3 s (Abnormal) Range: 11.7-14.9 :27 Prothrombin Time w/INR Comments: [facility] [address] [place], [address] ; managed by cardio INR 3.1 (Normal) PROTIME 31.1 s (Abnormal) Range: 11.7-14.9 :22 Prothrombin Time w/INR Comments: [facility] [address] [place], [address] INR 2.6 (Normal) PROTIME 27.4 s (Abnormal) Range: 11.7-14.9 :08 Prothrombin Time w/INR Comments: [facility] E[address] [place], [address] ; managed with Dr. paz INR 4.1 (Abnormal) Comments: CRITICAL VALUE REPEATED AND VERIFIED. CALLED TO [facility]01/16/16 1251 Elza Hinojosa.RESULTS READ BACK BY SAME . PROTIME 38.2 s (Abnormal) Range: 11.7-14.9 61-Rzg-313011:11 Microscopic Examination Comments: PATIENT WAS FASTINGPERFORMED BY: [facility] Cigutn5278 [facility] [id number] Bacteria None seen (Normal) Mucus Threads Present (Normal) Epithelial Cells (non renal) 0-10 {/hpf} (Normal) Range: 0 - 10 RBC 11-30 {/hpf} (Abnormal) Range: 0 - 2 WBC 0-5 {/hpf} (Normal) Range: 0 - 5 [id number] MICROALBUMIN: CREATININE RATIO Comments: PATIENT WAS FASTINGPERFORMED BY: Vortal Lindsey Shell [facility] [id number] ([id number]) AND ([id number]) Microalb/Creat Ratio 11.4 {mg/g_creat} (Normal) Range: 0.0-30.0 Microalbumin, Urine 12.1 ug/mL (Normal) Comments: Please note reference interval change Creatinine, Urine 106.3 mg/dL (Normal) Comments: Please note reference interval change :11 URINALYSIS ([id number]) Comments: PATIENT WAS FASTINGPERFORMED BY: Vortal Lindsey Shell [facility] [id number] Microscopic Examination See below: (Normal) Comments: Microscopic was indicated and was performed. Nitrite, Urine Negative (Normal) Urobilinogen,Semi-Qn 0.2 mg/dL (Normal) Range: 0.2-1.0 Bilirubin Negative (Normal) Occult Blood 2+ (Abnormal) Ketones Negative (Normal) Glucose Negative (Normal) Protein Negative (Normal) WBC Esterase Negative (Normal) Appearance Clear (Normal) Urine-Color Yellow (Normal) pH 7.0 (Normal) Range: 5.0-7.5 Specific [place] 1.018 (Normal) Range: 1.005-1.030 :11 Metabolic Panel, Comments: PATIENT WAS FASTINGPERFORMED BY: Digital Caddies Vaytyd4484 [facility] [id number] Information: [id number], [id number] Comprehensive (76539) ALT (SGPT) 14 [iU]/L (Normal) Range: 0-32 [...] Glucose, Serum 91 mg/dL (Normal) Range: 65-99 20-Jwg-918135:11 TSH (84576) Comments: PATIENT WAS FASTINGPERFORMED BY: LabCoVirtua VoorheesOkwtmh3676 [facility] [id number] TSH 2.260 {uIU/mL} (Normal) Range: 0.450-4.500 :17 Prothrombin Time w/INR Comments: [facility] F[address]zbrq[address] [place], [place], [phone] INR 2.8 (Normal) PROTIME 28.4 s (Abnormal) Range: 11.7-14.9 96-Lys-20871:40 Lipid Profile Comments: [facility] Wzdpkecgoo4834 [facility] [place], [address] VLDL 22 mg/dL (Normal) Range: 5-40 LDL [...] mg/dL High Risk :40 Liver Profile Comments: [facility] Ncjwq[address]hxu6[address] [place], [address] D BILI 0.10 mg/dL (Normal) Range: 0.00-0.30 T BILI 0.60 mg/dL (Normal) Range: 0.20-1.00 ALT 26 U/L (Normal) Range: 12-78 ALK P 86 U/L (Normal) Range: 50-136 AST 20 U/L (Normal) Range: 15-37 GLOB 3.4 g/dL (Normal) Range: 2.3-3.5 ALB 3.9 g/dL (Normal) Range: 3.4-5.0 T PROT 7.3 g/dL (Normal) Range: 6.4-8.2 :26 Prothrombin Time w/INR Comments: [facility] [address] [place], [address] INR 2.6 (Normal) Comments: ADDENDA: handled by cardio PROTIME 27.3 s (Abnormal) Range: 11.7-14.9 :40 Prothrombin Time w/INR Comments: [facility] Kdjgpuaiid6134 [place], [address] INR 2.4 (Normal) PROTIME 26.4 s (Abnormal) Range: 11.7-14.9 :03 Prothrombin Time w/INR Comments: [facility] Vyifbhnrue1440 [place], [address] ; per pop up in EMR cardio manages INR INR 2.2 (Normal) PROTIME 24.5 s (Abnormal) Range: 11.7-14.9 :51 Prothrombin Time w/INR Comments: [facility] [address] [place], [id number] INR 1.6 (Normal) PROTIME 19.0 s (Abnormal) Range: 11.7-14.9 Comments: ADDENDA: managed by cardio 8-Wsd-788056:33 Prothrombin Time w/INR Comments: [facility] [address] [place], [id number] ; handled by cardio INR 2.1 (Normal) PROTIME 24.0 s (Abnormal) Range: 11.7-14.9 87-Eub-750192:02 Prothrombin Time w/INR Comments: [facility] [address] [place], [id number] INR 2.2 (Normal) PROTIME 24.1 s (Abnormal) Range: 11.7-14.9 08-Iky-677995:37 Prothrombin Time w/INR Comments: [facility] [address] [place], [id number] INR 2.5 (Normal) PROTIME 26.7 s (Abnormal) Range: 11.7-14.9 :44 Prothrombin Time w/INR Comments: [facility] G[address] [place], [id number] INR 2.2 (Normal) PROTIME 24.6 s (Abnormal) Range: 11.7-14.9 88-Rxe-610067:15 Prothrombin Time w/INR Comments: [facility] U[address] [place], [id number] INR 1.6 (Normal) PROTIME 19.4 s (Abnormal) Range: 11.7-14.9 :36 Prothrombin Time w/INR Comments: [facility] W[address] [place], [id number] INR 1.2 (Normal) PROTIME 15.3 s (Abnormal) Range: 11.7-14.9 :02 Prothrombin Time w/INR Comments: [facility] Wakjobdjnn1633 [address] [place], [place], [id number] INR 2.7 (Normal) PROTIME 29.0 s (Abnormal) Range: 11.7-14.9 :47 Lipid Profile Comments: [facility] Xycjxkyfjt9834 [address] [place], [id number] VLDL 20 mg/dL (Normal) Range: 5-40 LDL [...] mg/dL High Risk :47 Liver Profile Comments: [facility] Phanoliyjo2233 [address] [place], [place], [id number] D BILI 0.09 mg/dL (Normal) Range: 0.00-0.30 T BILI 0.40 mg/dL (Normal) Range: 0.20-1.00 ALT 26 U/L (Normal) Range: 12-78 ALK P 86 U/L (Normal) Range: 50-136 AST 24 U/L (Normal) Range: 15-37 GLOB 3.3 g/dL (Normal) Range: 2.3-3.5 ALB 4.0 g/dL (Normal) Range: 3.4-5.0 T PROT 7.3 g/dL (Normal) Range: 6.4-8.2 2-Ssw-358321:11 CBC, Platelets & Auto Diff Comments: PATIENT NOT FASTINGPERFORMED BY: [facility] Rmyawv2586 [facility] [id number] Information: [id number] (88656) Immature Grans (Abs) 0.0 {x10E3/uL} (Normal) Range: [...] 3.77-5.28 WBC 6.2 {x10E3/uL} (Normal) Range: 3.4-10.8 7-Ynh-633252:11 CALCIFEDIOL (16636) Comments: PATIENT NOT FASTINGPERFORMED BY: LabCoVirtua VoorheesHcfygi3035 [facility] [id number] Vitamin D, 25-Hydroxy 38.9 ng/mL (Normal) Range: 30.0-100.0 Comments: Vitamin D deficiency has been defined by the [place] of[place] and an Endocrine Society practice guideline as alevel of serum 25-OH vitamin D less than 20 ng/mL (1,2).The Endocrine Society went on to further define vitamin Dinsufficiency as a level between 21 and 29 ng/mL (2).1. IOM ([place] [employer]). 2010. Dietary reference intakes for calcium and D. [place]: The National Academies Press.2. Roberto MF, Brody OCHOA, Maribell CADENA, et al. Evaluation, treatment, and prevention of vitamin D deficiency: an Endocrine Society clinical practice guideline. JCEM. 2010; 96(7):1911-30. 5-Rpz-318004:11 VITAMIN B12 AND FOLATES Comments: PATIENT NOT FASTINGPERFORMED BY: [employer] Ryffdx4783 [facility] [id number] (53706) Folate (Folic Acid), Serum 10.4 ng/mL (Normal) Comments: A serum folate concentration of less than 3.1 ng/mL isconsidered to represent clinical deficiency. Vitamin B12 1651 pg/mL (Abnormal) Range: 211-946 4-Hpl-373676:11 Metabolic Panel, Comprehensive Comments: PATIENT NOT FASTINGPERFORMED BY: [employer] Tyqkdv9173 [facility] [id number] (47798) ALT (SGPT) 15 [iU]/L (Normal) Range: 0-32 [...] Glucose, Serum 89 mg/dL (Normal) Range: 65-99 :53 Prothrombin Time w/INR Comments: [facility] [address] [place], [address] INR 1.9 (Normal) PROTIME 22.0 s (Abnormal) Range: 11.7-14.9 05-Hky-373496:40 Prothrombin Time w/INR Comments: Test performed at:[facility] [address] [place] [address] INR 1.3 (Normal) PROTIME 16.3 s (Abnormal) Range: 11.7-14.9 :03 Prothrombin Time w/INR Comments: Test performed at:[facility] Gvxyoquicu6534 [place] [address] INR 1.7 (Normal) PROTIME 20.4 s (Abnormal) Range: 11.7-14.9 9-Sjo-600243:26 Prothrombin Time w/INR Comments: Test performed at:[facility] [address] [place] [address] INR 1.2 (Normal) Comments: ADDENDA: managed by dr paz PROTIME 15.8 s (Abnormal) Range: 11.7-14.9 02-Sat-827706:28 Prothrombin Time w/INR Comments: Test performed at:[facility] [address] [place] [address] INR 1.2 (Normal) PROTIME 15.8 s (Abnormal) Range: 11.7-14.9 :54 Prothrombin Time w/INR Comments: Test performed at:[facility] [address] [place] [address] INR 2.5 (Normal) PROTIME 27.3 s (Abnormal) Range: 11.7-14.9 :16 Prothrombin Time w/INR Comments: Test performed at:[facility] Nkgaiqhiqj7[address] [place] [id number] INR 2.0 (Normal) PROTIME 23.2 s (Abnormal) Range: 11.7-14.9 60-Qpg-145666:29 Prothrombin Time w/INR Comments: Test performed at:[facility] [address] [place] [id number] INR 2.8 (Normal) PROTIME 29.3 s (Abnormal) Range: 11.7-14.9 13-Qoo-768868:06 Prothrombin Time w/INR Comments: Test performed at:[facility] Fzfodyqmhy4325 [place] [address] ; Dr Bella manages INR 2.1 (Normal) PROTIME 24.0 s (Abnormal) Range: 11.7-14.9 :45 Prothrombin Time w/INR Comments: Test performed at:[facility] [address] [place] [address] ; ordered by another INR 1.3 (Normal) PROTIME 16.5 s (Abnormal) Range: 11.7-14.9 :00 Prothrombin Time w/INR Comments: Test performed at:[facility] [address] [place] [address] INR 0.9 (Normal) PROTIME 12.7 s (Normal) Range: 11.7-14.9 :05 Vitamin B12 and Folate Comments: PATIENT NOT FASTINGPERFORMED BY: [facility] SouthCoVirtua VoorheesNggrhi4288 [facility] [id number] Information: [id number] Folate (Folic Acid), 7.8 ng/mL (Normal) Comments: A serum folate concentration of less than 3.1 ng/mL isconsidered to represent clinical deficiency. Serum Vitamin B12 1883 pg/mL Range: 211-946 (Abnormal) : Vitamin D, 42.8 ng/mL (Normal) Comments: PATIENT NOT FASTINGPERFORMED BY: [facility] Epxliz2208 [facility] [id number] 05 25-Hydroxy Range: 30.0-100.0 Comments: Vitamin D deficiency has been defined by the [place] [employer] and an Endocrine Society practice guideline as alevel of serum 25-OH vitamin D less than 20 ng/mL (1,2).The Endocrine Society went on to further define vitamin Dinsufficiency as a level between 21 and 29 ng/mL (2).1. IOM ([place] [employer]). 2010. Dietary reference intakes for calcium and D. [place]: The National Academies Press.2. Roberto MF, Brody [place], Maribell CADENA, et al. Evaluation, treatment, and prevention of vitamin D deficiency: an Endocrine Society clinical practice guideline. JCEM. 2010; 96(7):1911-30. 87-Bic-231595:04 CBC W/Diff, Automated Comments: Test performed at:[facility] Nidumrntow2439 [address] [place], [place] [address] Absolute Lymph 2.41 {X10_3/ul} (Normal) Range: 0.83-4.51 [...] 4.2-5.4 WBC 6.5 K/mm3 (Normal) Range: 4.4-11.0 1-Tbk-657103:26 Basic Metabolic Profile (BMP) Comments: Test performed at:[facility] Mxgjplrhdn1310 [facility] [address] [place], [place] [phone] GAP 4 (Abnormal) Range: 5-15 CO2 33.0 mmol/L (Abnormal) Range: 21.0-32.0 CL 103 mmol/L (Normal) Range: 98-107 K 4.8 mmol/L (Normal) Range: 3.5-5.1 NA 140 mmol/L (Normal) Range: 136-145 CA 8.8 mg/dL (Normal) Range: 8.5-10.1 BUN/CRE 25.8 {RATIO} (Abnormal) Range: 10-20 CREAT,SERUM 1.2 mg/dL (Abnormal) Range: 0.6-1.0 BUN 31 mg/dL (Abnormal) Range: 7-18 GLU 108 mg/dL (Normal) Range: 70-110 41-Und-878602:45 Basic Metabolic Profile (BMP) Comments: Test performed at:[facility] Vxgxyqilsx0984 [facility] [address] [place], [place] [address] GAP 4 (Abnormal) Range: 5-15 CO2 28.0 mmol/L (Normal) Range: 21.0-32.0 CL 106 mmol/L (Normal) Range: 98-107 K 4.3 mmol/L (Normal) Range: 3.5-5.1 NA 138 mmol/L (Normal) Range: 136-145 CA 8.8 mg/dL (Normal) Range: 8.5-10.1 BUN/CRE 26.0 {RATIO} (Abnormal) Range: 10-20 CREAT,SERUM 1.0 mg/dL (Normal) Range: 0.6-1.0 BUN 26 mg/dL (Abnormal) Range: 7-18 GLU 93 mg/dL (Normal) Range: 70-110 01-Ckn-157625:45 CBC W/Diff, Automated Comments: Test performed at:[facility] R[address]eo[address] [place] [address] Absolute Lymph 2.60 {X10_3/ul} (Normal) [...] 4.2-5.4 WBC 6.5 K/mm3 (Normal) Range: 4.4-11.0 54-Xii-621422:07 Lipid Profile Comments: Specimen slightly hemolyzed. Results may be affected.Test performed at:[facility] [address]wcsp6[address] [place] [address] VLDL 19 mg/dL (Normal) Range: 5-40 LDL [...] 200-240 mg/dL Borderline >240 mg/dL High Risk 90-Npg-718228:07 Liver Profile Comments: Specimen slightly hemolyzed. Results may be affected.Test performed at:[facility] Uwhgspvebk0806 [address] [place], [place] [address] D BILI < 0.05 mg/dL (Normal) Range: [...] CHOL 226 mg/dL (Abnormal) Comments: <200 mg/dL Vufhplzfs779-730 mg/dL Borderline>240 mg/dL High Risk :47 LIVER [...] :47 TSH 3.05 {uIU/mL} (Normal) Range: 0.358-3.74 86-Sfc-906095:00 LORNA CULTURE-OTHER (99138) Comments: PATIENT NOT FASTINGPERFORMED BY: LabCoVirtua VoorheesIxizpl6285 [facility] [id number] Information: SRC:THRT [id number] Result 1 RRF (Normal) Comments: Routine respiratory jesus Upper Respiratory Culture Final report (Normal) 01-Sig-04057:21 Rapid Strep Test, Office (36359) Rapid Strep Test, Office Negative (Normal) 22-Hhb-12099:00 BILAT SCRN DIGITAL & CAD Radiology Report See Note (Normal) Comments: MAMMOGRAPHY - BILATERAL SCREENING REASON FOR EXAM: Female, 72 years old. Routine annual screeningexamination. PERTINENT HISTORY: Non-contributory. TECHNIQUE: Digital examination. Med iolateral ob lique (MLO) andcraniocaudad (CC) views of both breasts were obtained. CAD: CAD wasperformed on this study. COMPARISON: Comparison is made with prior studies dated April and June 18 08. FINDINGS:The breast composition is composed of scattered [...] Jones M.D.January 04, 2013 at 10:41:52 AM [id number] Signed GP/GP If you are the referring physician and would like to consult with theradiologist who provided this interpretation, please contact Ne Huang at [phone]. If this radiologist is unavailable, youwill be directed to another radiologist to assist. If you are a patient with a question regarding this report, pleasecontactyour referring physician directly. Professional Interpretation Provided By: [employer], Phone , These documents contain legally protected [...] the return or destructionofthese documents. Dictated on 01/04/13 1041 by Robert CHRISTIANSEN,Kalpanaranscribed on 01/04/13 1042 by ITS IMPORTSign by Henry Jones MD on 01/04/13 1044 Sign by: Henry Jones MD 8-Doq-172760:19 Hepatic Function Panel Comments: PATIENT WAS FASTINGPERFORMED BY: LabCoVirtua VoorheesUugohs4477 [facility] [id number] Information: [id number],[id number] (7) ALT (SGPT) 23 [iU]/L (Normal) Range: 0-32 AST (SGOT) 21 [iU]/L (Normal) Range: 0-40 Alkaline Phosphatase, S 74 [iU]/L (Normal) Range: 25-165 Bilirubin, Direct 0.10 mg/dL Range: 0.00-0.40 (Normal) Albumin, Serum 4.3 g/dL (Normal) Range: 3.5-4.8 Bilirubin, Total 0.3 mg/dL (Normal) Range: 0.0-1.2 Protein, Total, Serum 6.7 g/dL (Normal) Range: 6.0-8.5 Written Authorization WAR (Normal) Comments: PATIENT WAS FASTINGPERFORMED BY: [facility]6370 [facility] [id number] :19 Comments: Written Authorization Received.Authorization received from DR BRO [id number] by Rachelle Porter :19 Metabolic Panel, Comprehensive Comments: PATIENT WAS FASTINGPERFORMED BY: [facility]6370 [facility] [id number] (24091) ALT (SGPT) 22 [iU]/L (Normal) Range: 0-32 [...] Glucose, Serum 89 mg/dL (Normal) Range: 65-99 9-Wul-086460:19 CBC with manual diff Comments: PATIENT WAS FASTINGPERFORMED BY: ZAINAB [employer] [facility] [id number] Information: [id number] (78526) Immature Grans (Abs) 0.0 {x10E3/uL} (Normal) Range: [...] 3.77-5.28 WBC 4.6 {x10E3/uL} (Normal) Range: 4.0-10.5 0-Quo-937512:19 Lipid Panel (46059) Comments: PATIENT WAS FASTINGPERFORMED BY: ZAINAB [employer] Eectra3148 [facility] [id number] LDL/HDL Ratio 1.3 {ratio_units} (Normal) Range: 0.0-3.2 Cholesterol, Total 153 mg/dL (Normal) Range: 100-199 HDL Cholesterol 60 mg/dL (Normal) Comments: According to ATP-III Guidelines, HDL-C >59 mg/dL is considered anegative risk factor for CHD. LDL Cholesterol Calc 80 mg/dL (Normal) Range: 0-99 Triglycerides 65 mg/dL (Normal) Range: 0-149 VLDL Cholesterol Hector 13 mg/dL (Normal) Range: 5-40 3-Eup-741078:19 TSH (69354) Comments: PATIENT WAS FASTINGPERFORMED BY: [employer] Lindsey Shell [facility] [id number] TSH 2.650 {uIU/mL} (Normal) Range: 0.450-4.500 70-Ekf-908237:14 Urinalysis, Office (50106) UA - BILIRUBIN Negative (Normal) UA - BLOOD Hemolyzed Small (Normal) UA - GLUCOSE Negative (Normal) UA - KETONES Negative mg/dL (Normal) UA - LEUKOCYTE ESTERASE Negative (Normal) UA - NITRITE Negative (Normal) UA - PH 7.0 (Normal) UA - PROTEIN Negative mg/dL (Normal) UA - SPECIFIC GRAVITY 1.015 (Normal) URINE UROBILINGN REYNA TIMED Normal mg/dL (Normal) 28-Rut-596457:10 TSH (THYROID STIMULATING Comments: PATIENT WAS FASTINGPERFORMED BY: [employer] Dxykvd2522 [facility] [id number] HORMONE) (47152) TSH 2.500 {uIU/mL} (Normal) Range: 0.450-4.500 94-Way-696318:10 CALCIFEDIOL (40284) Comments: PATIENT WAS FASTINGPERFORMED BY: [employer] Vtcyye8928 [facility] [id number] Vitamin D, 25-Hydroxy 48.1 ng/mL (Normal) Range: 30.0-100.0 Comments: Vitamin D deficiency has been defined by the [place] [employer] and an Endocrine Society practice guideline as alevel of serum 25-OH vitamin D less than 20 ng/mL (1,2).The Endocrine Society went on to further define vitamin Dinsufficiency as a level between 21 and 29 ng/mL (2).1. IOM ([place] [employer]). 2010. Dietary reference intakes for calcium and D. [place]: The National Academies Press.2. Roberto MF, Brody OCHOA, Maribell CADENA, et al. Evaluation, treatment, and prevention of vitamin D deficiency: an Endocrine Society clinical practice guideline. JCEM. 2010; 96(7):1911-30. 00-Vit-201076:10 Lipid Panel (07845) Comments: PATIENT WAS FASTINGPERFORMED BY: [employer])6370 [facility] [id number] LDL/HDL Ratio 2.3 {ratio_units} (Normal) Range: 0.0-3.2 LDL Cholesterol Calc 117 mg/dL (Abnormal) Range: 0-99 VLDL Cholesterol Hector 16 mg/dL (Normal) Range: 5-40 HDL Cholesterol 52 mg/dL (Normal) Comments: According to ATP-III Guidelines, HDL-C >59 mg/dL is considered anegative risk factor for CHD. Triglycerides 78 mg/dL (Normal) Range: 0-149 Cholesterol, Total 185 mg/dL (Normal) Range: 100-199 :10 HEPATIC FUNCTION PANEL Comments: PATIENT WAS FASTINGPERFORMED BY: [employer] Ocxhnc1114 [facility] [id number] Information: [id number] (46305) ALT (SGPT) 21 [iU]/L (Normal) Range: 0-40 AST (SGOT) 20 [iU]/L (Normal) Range: 0-40 Alkaline Phosphatase, S 75 [iU]/L (Normal) Range: 25-165 Bilirubin, Direct 0.09 mg/dL (Normal) Range: 0.00-0.40 Albumin, Serum 4.0 g/dL (Normal) Range: 3.5-4.8 Bilirubin, Total 0.3 mg/dL (Normal) Range: 0.0-1.2 Protein, Total, Serum 6.5 g/dL (Normal) Range: 6.0-8.5 47-Dpp-146832:41 TSH (68565) Comments: PATIENT NOT FASTINGPERFORMED BY: [facility]6370 [facility] [id number] Information: [id number] TSH 3.750 {uIU/mL} (Normal) Range: 0.450-4.500 :39 Prothrombin Time (PT) Comments: PERFORMED BY: [address] [id number] Prothrombin Time 39.0 {sec} (Abnormal) Range: 8.7-11.5 INR 3.6 (Abnormal) Range: 0.8-1.2 Comments: Client Requested Flag Reference interval is for non- anticoagulated patients. . Suggested INR therapeutic ra nge for Vitamin K antagonist therapy: Standard Dose (moderate intensity therapeutic range): 2.0 - 3.0 Higher intensity therapeutic range 2.5 - 3.5 :26 PT (PROTHROMBIN TIME) Comments: PATIENT NOT FASTINGPERFORMED BY: [place] 3424270 [facility] [id number] Information: [id number] CC:[id number] (50511) Prothrombin Time 54.3 {sec} (Abnormal) Range: 8.7-11.5 [...] (Activated Partial Comments: PATIENT NOT FASTINGPERFORMED BY: [place] 3424270 [facility] [id number] Thromboplastin Time) (49903) aPTT 39 {sec} (Abnormal) Range: 24-33 Comments: This test has not been validated for monitoring unfractionated heparintherapy. aPTT-based therapeutic ranges for unfractionated heparintherapy have not been established. For general guidelines onHeparin monitoring, refer to the [facility] Directory of Services. :51 PT (Prothrobim Time) Comments: PATIENT NOT FASTINGPERFORMED BY: [place] 3424270 [facility] [id number] Information: [id number] CC:[id number] (38226) Prothrombin Time 26.1 {sec} (Abnormal) Range: 8.7-11.5 INR 2.4 (Abnormal) Range: 0.8-1.2 Comments: Reference interval is for non-anticoagulated patients. . Suggested INR therapeutic range for Vitamin K anta gonist therapy: Standard Dose (moderate intensity therapeutic range): 2.0 - 3.0 Higher intensity therapeutic range 2.5 - 3.5 :43 HEPATIC FUNCTION PANEL Comments: PATIENT NOT FASTINGPERFORMED BY: [address] [id number] Information: [id number] (43880) ALT (SGPT) 25 [iU]/L (Normal) Range: 0-40 AST (SGOT) 19 [iU]/L (Normal) Range: 0-40 Alkaline Phosphatase, S 73 [iU]/L (Normal) Range: 25-165 Albumin, Serum 4.4 g/dL (Normal) Range: 3.5-4.8 Bilirubin, Direct 0.09 mg/dL (Normal) Range: 0.00-0.40 Bilirubin, Total 0.3 mg/dL (Normal) Range: 0.0-1.2 Protein, Total, Serum 6.4 g/dL (Normal) Range: 6.0-8.5 :18 Lipid Panel (63032) Comments: PATIENT NOT FASTINGPERFORMED BY: [place] 3424270 [facility] [id number] LDL/HDL Ratio 1.3 {ratio_units} (Normal) Range: 0.0-3.2 [...] FUNCTION PANEL Comments: PATIENT NOT FASTINGPERFORMED BY: [facility] [facility])6370 [facility] [id number] Information: [id number] (69798) ALT (SGPT) 60 [iU]/L (Abnormal) Range: 0-40 Alkaline Phosphatase, S 66 [iU]/L (Normal) Range: 25-165 AST (SGOT) 43 [iU]/L (Abnormal) Range: 0-40 Albumin, Serum 4.3 g/dL (Normal) Range: 3.5-4.8 Bilirubin, Direct 0.10 mg/dL (Normal) Range: 0.00-0.40 Bilirubin, Total 0.3 mg/dL (Normal) Range: 0.0-1.2 Protein, Total, Serum 6.7 g/dL (Normal) Range: 6.0-8.5 :18 CALCIFEDIOL (06466) Comments: PATIENT NOT FASTINGPERFORMED BY: [employer] Iclbun4109 [facility] [id number] Vitamin D, 25-Hydroxy 57.3 ng/mL (Normal) Range: 32.0-100.0 Comments: Recent studies consider the lower limit of 32.0 ng/mL to be athreshold for optimal health.Baljit HOWELL. J Nutr. 2004;135(2):317-22. 4-Snf-468482:49 Urinalysis, Office (03118) UA - BILIRUBIN Negative (Normal) UA - BLOOD Hemolyzed Moderate (Normal) UA - GLUCOSE Negative (Normal) UA - KETONES Negative mg/dL (Normal) UA - LEUKOCYTE ESTERASE Negative (Normal) UA - NITRITE Negative (Normal) UA - PH 7.5 (Normal) UA - PROTEIN Negative mg/dL (Normal) UA - SPECIFIC GRAVITY 1.015 (Normal) URINE UROBILINGN REYNA TIMED Normal mg/dL (Normal) 32-Jki-832957:38 Urinalysis, Office (68676) UA - BILIRUBIN Negative (Normal) UA - BLOOD Hemolyzed Small (Normal) UA - GLUCOSE Negative (Normal) UA - KETONES Negative mg/dL (Normal) UA - LEUKOCYTE ESTERASE Negative (Normal) UA - NITRITE Negative (Normal) UA - PH 7.5 (Normal) UA - PROTEIN Negative mg/dL (Normal) UA - SPECIFIC GRAVITY 1.015 (Normal) URINE UROBILINGN REYNA TIMED 2 mg/dL (Normal) :47 Metabolic Panel, Basic Comments: PATIENT NOT FASTINGPERFORMED BY: [employer] CornholeCoVirtua VoorheesNblyol7500 [facility] [id number] Information: [id number] (43307) Calcium, Serum 9.6 mg/dL (Normal) Range: 8.6-10.2 [...] CULTURE-REYNA COL Comments: PATIENT NOT FASTINGPERFORMED BY: LabCoVirtua VoorheesVizmld7101 [facility] [id number] Information: SRC:UR [id number] COUNT (48469) Result 1 NG36 (Normal) Comments: No growth in 36 - 48 hours. Urine Culture,Comprehensive Final report (Normal) :29 Urinalysis, Office (64461) UA - BILIRUBIN Negative (Normal) UA - BLOOD Non Hemolyzed Moderate (Normal) UA - GLUCOSE Negative (Normal) UA - KETONES Negative mg/dL (Normal) UA - LEUKOCYTE ESTERASE Trace (Normal) UA - NITRITE Negative (Normal) UA - PH 6.0 (Normal) UA - PROTEIN Negative mg/dL (Normal) UA - SPECIFIC GRAVITY 1.020 (Normal) URINE UROBILINGN REYNA TIMED Normal mg/dL (Normal) 24-Zxg-204526:44 Microscopic Examination Comments: PATIENT WAS FASTINGPERFORMED BY: [facility] [id number] Bacteria Few (Normal) Mucus Threads Present (Normal) Epithelial Cells (non renal) 0-10 {/hpf} (Normal) Range: 0 - 10 RBC 0-3 {/hpf} (Normal) Range: 0 - 3 WBC 0-5 {/hpf} (Normal) Range: 0 - 5 85-Csv-345796:44 CALCIFIDIOL (42075) VIT D 25 Comments: PATIENT WAS FASTINGPERFORMED BY: [facility])6370 [facility] [id number] Vitamin D, 25-Hydroxy 28.6 ng/mL (Abnormal) Range: 32.0-100.0 Comments: Recent studies consider the lower limit of 32.0 ng/mL to be athreshold for optimal health.Baljit HOWELL. J Nutr. 2004;135(2):317-22. 01-Egf-217013:44 Folate (99994) Comments: PATIENT WAS FASTINGPERFORMED BY: [employer]70 [facility] [id number] Folate (Folic Acid), Serum 12.2 ng/mL (Normal) Comments: Indeterminate: 2.2 - 3.0 Deficient: <2.2 14-Ita-804349:44 VITAMIN B-12 (CYANOCOBALAMIN) Comments: PATIENT WAS FASTINGPERFORMED BY: [facility] [id number] (18415) Vitamin B12 351 pg/mL (Normal) Range: 211-946 05-Zic-026520:44 SED RATE ERYTHROCYTE (03783) Comments: PATIENT WAS FASTINGPERFORMED BY: [facility]6370 [facility] [id number] Sedimentation Rate-Westergren 2 mm/h (Normal) Range: 0-30 66-Zes-430810:44 RHEUMATOID FACTOR-QUANT (31090) Comments: PATIENT WAS FASTINGPERFORMED BY: [facility]6370 [facility] [id number] RA Latex Turbid. 10.5 {IU/mL} (Normal) Range: 0.0-13.9 97-Fbj-623077:44 C-REACTIVE PROTEIN (21805) Comments: PATIENT WAS FASTINGPERFORMED BY: [address] [id number] C-Reactive Protein, Quant 0.9 mg/L (Normal) Range: 0.0-4.9 :44 JOANNA (ANTINUCLEAR ANTIBODY) Comments: PATIENT WAS FASTINGPERFORMED BY: [address] [id number] (74712) JOANNA Direct Negative (Normal) 29-Ezq-649694:44 LIPID PANEL (54520) Comments: PATIENT WAS FASTINGPERFORMED BY: [facility]6370 [facility] [id number] LDL Cholesterol Calc 140 mg/dL (Abnormal) Range: 0-99 LDL/HDL Ratio 1.8 {ratio_units} (Normal) Range: 0.0-3.2 HDL Cholesterol 77 mg/dL (Normal) Comments: According to ATP-III Guidelines, HDL-C >59 mg/dL is considered anegative risk factor for CHD. VLDL Cholesterol Hector 19 mg/dL (Normal) Range: 5-40 Triglycerides 97 mg/dL (Normal) Range: 0-149 Cholesterol, Total 236 mg/dL (Abnormal) Range: 100-199 99-Nnz-032170:44 TSH (82214) Comments: PATIENT WAS FASTINGPERFORMED BY: [facility]6370 [facility] [id number] TSH 1.670 {uIU/mL} (Normal) Range: 0.450-4.500 21-Gog-164944:44 URINALYSIS, W/ MICRO (54494) Comments: PATIENT WAS FASTINGPERFORMED BY: [facility]6370 [facility] [id number] Microscopic Examination See below: (Normal) Bilirubin Negative (Normal) Ketones Negative (Normal) Nitrite, Urine Negative (Normal) Occult Blood 1+ (Abnormal) Urobilinogen,Semi-Qn 0.2 mg/dL (Normal) Range: 0.0-1.9 Glucose Negative (Normal) Protein Negative (Normal) Appearance Clear (Normal) pH 7.0 (Normal) Range: 5.0-7.5 Urine-Color Yellow (Normal) WBC Esterase Negative (Normal) Specific [place] 1.016 (Normal) Range: 1.005-1.030 :44 MICROALBUMIN: CREATININE RATIO Comments: PATIENT WAS FASTINGPERFORMED BY: [facility]6370 [facility] [id number] (31909) AND (45775) Microalb/Creat Ratio 2.8 {mg/g_creat} (Normal) Range: 0.0-30.0 Creatinine, Urine 61.0 mg/dL (Normal) Range: 15.0-278.0 Microalbumin, Urine 1.7 ug/mL (Normal) Range: 0.0-17.0 25-Czs-846819:44 METABOLIC PANEL, COMPREHENSIVE Comments: PATIENT WAS FASTINGPERFORMED BY: [facility]6370 [facility] [id number] (58056) ALT (SGPT) 16 [iU]/L (Normal) Range: 0-40 [...] Glucose, Serum 92 mg/dL (Normal) Range: 65-99 70-Lsb-708118:44 CBC WITH MANUAL DIFF Comments: PATIENT WAS FASTINGPERFORMED BY: [facility]6370 [facility] [id number] Information: [id number] (29299) Immature Grans (Abs) 0.0 {x10E3/uL} (Normal) Range: [...] 3.80-5.10 WBC 6.1 {x10E3/uL} (Normal) Range: 4.0-10.5 21-Qvh-244620:11 BILAT SCRN DIGITAL & CAD Radiology Report See Note (Normal) Comments: Exam Number: [id number] MAMMOGRAPHY - BILATERAL SCREENING INDICATION:Routine annual screening [...] of attaching a ResultCode to this exam.ADDENDUM: [id number] HPBI/MDS Reported By: ELEANOR ERNANDEZ M.D. 3-Ofe-749183:01 TSH (84064) Comments: PATIENT NOT FASTINGPERFORMED BY: LabCoVirtua VoorheesCxmuwg3412 [facility] [id number] Information: [id number] TSH 0.474 {uIU/mL} (Normal) Range: 0.450-4.500 16-Apr-20108:21 Thin prep Pap (80360) Comments: of cuff, has had hysterectomy; Source.............VaginalLMP / Prev Treat...HystNo. of containers..01 CYTYC Thin Prep VialPATIENT NOT FASTINGPERFORMED BY: [facility] [address] [facility] [place]igh [id number] Information: [id number] Note: PAPSMR (Normal) Comments: The Pap smear [...] hysterectomy.V72.31 ; Routine gynecological exami Davion Mosley Crane Rigger (ASCP) 47-Nqr-929569:57 ABDOMEN/PELVIS W/WO CONTRAST Radiology Report See Note (Normal) Comments: Exam Number: [id number] CLINICAL:Hydronephrosis CT ABDOMEN AND PELVIS WITHOUT / [...] theright-sided hydronephrosis. Reported By: SAVANA AVELAR M.D. 0-Ewl-035257:44 Urinalysis, Office (90067) UA - LEUKOCYTE ESTERASE Negative (Normal) UA - NITRITE Negative (Normal) URINE UROBILINGN REYNA TIMED Normal mg/dL (Normal) UA - PROTEIN Negative mg/dL (Normal) UA - PH 6.5 (Normal) UA - BLOOD Hemolyzed Trace (Normal) UA - SPECIFIC GRAVITY 1.010 (Normal) UA - KETONES Negative mg/dL (Normal) UA - BILIRUBIN Negative (Normal) UA - GLUCOSE Negative (Normal) 75-Rts-145532:45 KIDNEY (HP) Radiology Report See Note (Normal) Comments: Exam Number: [id number] CLINICAL:The patient is a 69-year-old female who [...] no hydronephrosis Reported By: ELEANOR ERNANDEZ M.D. 32-Vwv-768728:14 BMP BUN/CRE 17.8 {RATIO} (Normal) Range: 10-20 [...] (Normal) GLU 90 mg/dL (Normal) Range: 70-110 15-Fpo-954809:52 Iron and TIBC Comments: PATIENT NOT FASTINGPERFORMED BY: [employer]70 [facility] [id number] Iron Saturation 21 % (Normal) Range: 15-55 Iron, Serum 55 ug/dL (Normal) Range: 35-155 UIBC 202 ug/dL (Normal) Range: 150-375 Iron Bind.Cap.(TIBC) 257 ug/dL (Normal) Range: 250-450 19-Puk-100098:52 Renal function Panel (90815) Comments: PATIENT NOT FASTINGPERFORMED BY: [employer]70 [facility] [id number] Albumin, Serum 3.7 g/dL (Normal) Range: 3.5-4.8 [...] Glucose, Serum 91 mg/dL (Normal) Range: 65-99 33-Ydh-179536:52 Ferritin (93837) Comments: PATIENT NOT FASTINGPERFORMED BY: [employer] LabCoVirtua VoorheesYeisdz2798 [facility] [id number] Ferritin, Serum 338 ng/mL (Abnormal) Range: 13-150 61-Jrw-498787:52 CBC with manual diff Comments: PATIENT NOT FASTINGPERFORMED BY: LabCoVirtua VoorheesDhjfux8714 [facility] [id number] Information: [id number] (54985) Baso (Absolute) 0.0 {x10E3/uL} (Normal) Range: 0.0-0.2 [...] 3.80-5.10 WBC 7.9 {x10E3/uL} (Normal) Range: 4.0-10.5 74-Ffu-740513:20 TSH (80150) Comments: PATIENT NOT FASTINGPERFORMED BY: [facility]6370 [facility] [id number] TSH 0.830 {uIU/mL} (Normal) Range: 0.450-4.500 22-Lvn-313920:20 CBC with manual diff Comments: PATIENT NOT FASTINGPERFORMED BY: [place] 3424270 [facility] [id number] Information: [id number] (75759) Hematology Comments: Note: (Normal) Comments: Verified by [...] 3.80-5.10 WBC 21.6 {x10E3/uL} (Abnormal) Range: 4.0-10.5 71-Gan-732867:58 Serum Protein Comments: PATIENT NOT FASTINGPERFORMED BY: [facility]6370 [facility] [id number] Information: ADD [id number] NO DRAW FEE Electrophoresis (SPEP) (93502) A/G Ratio 1.6 (Normal) Range: 0.7-2.0 Please note: SPR (Normal) Comments: Protein electrophoresis scan will follow via computer, mail, orcourier delivery. Mbofd-5-Rsrspvtt 0.2 g/dL (Normal) Range: 0.1-0.4 Brvzo-1-Nulfmnhz 0.6 g/dL (Normal) Range: 0.4-1.2 Beta Globulin 0.9 g/dL (Normal) Range: 0.6-1.3 Gamma Globulin 0.9 g/dL (Normal) Range: 0.5-1.6 Globulin, Total 2.6 g/dL (Normal) Range: 2.0-4.5 M-Slim Not Observed g/dL (Normal) Albumin 4.2 g/dL (Normal) Range: 3.2-5.6 Protein, Total, Serum 6.8 g/dL (Normal) Range: 6.0-8.5 :58 VITAMIN B-12 (CYANOCOBALAMIN) Comments: PATIENT NOT FASTINGPERFORMED BY: [facility])6370 [facility] [id number] (59266) Vitamin B12 300 pg/mL (Normal) Range: 211-911 :58 SED RATE ERYTHROCYTE (71530) Comments: PATIENT NOT FASTINGPERFORMED BY: Vortalrp Vbjjlt2902 [facility] [id number] Sedimentation Rate-Westergren 2 mm/h (Normal) Range: 0-30 :20 CBC With Differential/Platelet Comments: PATIENT WAS FASTINGPERFORMED BY: [facility]ortal Anclew9071 [facility] [id number] Baso (Absolute) 0.1 {x10E3/uL} (Normal) Range: 0.0-0.2 [...] 3.80-5.10 WBC 5.4 {x10E3/uL} (Normal) Range: 4.0-10.5 71-Pxw-534691:20 Comp. Metabolic Panel (14) Comments: PATIENT WAS FASTINGPERFORMED BY: LabCoVirtua VoorheesFjmmsh6552 [facility] [id number] ALT (SGPT) 19 [iU]/L (Normal) Range: 0-40 [...] Glucose, Serum 95 mg/dL (Normal) Range: 65-99 22-Esg-852156:20 Lipid Panel With LDL/HDL Comments: PATIENT WAS FASTINGPERFORMED BY: Digital CaddiesVirtua VoorheesRdknvu0433 [facility] [id number] Ratio HDL Cholesterol 66 mg/dL (Normal) Comments: [...] 1.050 {uIU/mL} Comments: PATIENT WAS FASTINGPERFORMED BY: Digital CaddiesVirtua VoorheesUuivyt0811 [facility] [id number] :20 (Normal) Range: 0.450-4.500 :50 CBCD,SMEAR DIFF [...] mg/dL VLDL 29 mg/dL (Normal) Range: 5-40 90-Gcu-71381:50 TSH 1.25 {uIU/mL} (Normal) Range: 0.34-4.82 45-Anc-956867:41 BILAT SCRN DIGITAL & CAD Radiology Report See Note (Normal) Comments: Exam Number: [id number] MAMMOGRAM, BILATERAL SCREENING DIGITAL AND CAD HISTORYRoutine [...] mammograms werealso examined with computer-aided detection software ([employer], [employer].). Reported By: ELEANOR ERNANDEZ M.D. 83-Vyi-94304:28 CBCD,SMEAR DIFF CELLS COUNTED 100 (Normal) EOS [...] 47-70 WBC 5.4 K/mm3 (Normal) Range: 4.4-11.0 :28 COMP METABOLIC A/G 1.2 {RATIO} (Normal) Range: [...] mg/dL VLDL 21 mg/dL (Normal) Range: 5-40 67-Gxx-03389:28 TSH 0.38 {uIU/mL} (Normal) Range: 0.34-4.82 3-Squ-006817:04 Rapid Strep Test, Office (48346) Rapid Strep Test, Office Negative (Normal) 98-Frk-014954:34 BILAT SCRN DIGITAL & CAD Radiology Report See Note (Normal) Comments: Exam Number: [id number] MAMMOGRAM, BILATERAL SCREENING DIGITAL AND CAD HISTORYRoutine [...] mammograms werealso examined with computer-aided detection software ([employer], [employer] Reported By: ELEANOR ERNANDEZ M.D. 87-Gou-786958:31 DEXA BONE DENSITY STUDY (HP) Radiology Report See Note (Normal) Comments: Exam Number: [id number] BONE DENSITOMETRY HISTORYPostmenopausal. TECHNIQUE Bone densitometry of [...] withinnormal limits. Reported By: ELEANOR ERNANDEZ M.D. :39 COMP METABOLIC A/G 1.1 {RATIO} (Normal) Range: [...] mg/dL VLDL 18 mg/dL (Normal) Range: 5-40 47-Ewl-660574:39 TSH 0.43 {uIU/mL} (Normal) Range: 0.34-4.82 14-Syo-042144:26 BMP BUN 23 mg/dL (Abnormal) Range: 7-18 [...] Plan of Care Name Dates Details Instructions Hypothyroidism : Follow up in 3 months Indication: Hypothyroidism Anemia : Reviewed Diagnostic Tests Indication: Anemia Asthma, mild intermittent : Reviewed Lab Indication: Asthma, mild intermittent Hypertensive heart disease : Reviewed Lab Indication: Hypertensive heart disease Nonsmoker : Eprescribed prescriptions (G8553) Indication: Nonsmoker Asthma, mild intermittent : Follow up if [...] : Follow up in 3 months with [facility] Indication: Hypertensive heart disease Hematuria, unspecified : FOLLOW UP IN 3 MONTHS [facility] Indication: Hematuria, unspecified Abnormal blood chemistry : [...] Gen Med in Sep 2010 make apt MEC per pt request Indication: Hydronephrosis Hydronephrosis : Follow up for well woman with [facility] per pt request Indication: Hydronephrosis Anemia : FOLLOW UP IN 2 WEEKS January 07 by [facility] Indication: Anemia Abdominal pain, acute, generalized : FOLLOW UP IN 1 WEEK with [facility] Indication: Abdominal pain, acute, generalized Diarrhea : [...] : URI Symptoms Indication: Bronchitis Planned Observations VITAMIN B12 AND FOLATES (88929)Indication: Vitamin B 12 deficiency On: 26-Mal-784367:42 Request TSH (THYROID STIMULATING HORMONE) (92506)Indication: Hypothyroidism On: 03-Fde-572129:42 Request Metabolic Panel, Comprehensive (76616)Indication: Hypercholesterolemia On: 0-Qym-784036:52 Request Comments: Jun 2018 LIPID PANEL (91612)Indication: Hypercholesterolemia On: 6-Gxh-925615:51 Request Comments: Jun 2018 URINALYSIS (22297)Indication: Hypertension, essential, benign On: 57-Ggm-300753:52 Request MICROALBUMIN: CREATININE RATIO (80022) AND (48042)Indication: Hypertension, essential, benign On: 89-Lqu-799168:52 Request Metabolic Panel, Comprehensive (77994)Indication: Hypertension, essential, benign On: 77-Jtp-095960:50 Request Comments: send to [facility] CBC, Platelets & Auto Diff (36450)Indication: Hypertension, essential, benign On: 63-Umd-486370:50 Request Comments: send to [facility] TSH (86671)Indication: Hypothyroidism On: 07-Tfv-882534:50 Request Comments: send to [facility] LIPID PANEL (01824)Indication: Hypercholesterolemia On: 02-Xpt-888623:50 Request Comments: send to [facility] URINALYSIS (95820)Indication: Hypertension, essential, benign On: 0-Kcc-507118:03 Request Comments: today MICROALBUMIN: CREATININE RATIO (06876) AND (12060)Indication: Hypertension, essential, benign On: 9-Soo-308361:03 Request Comments: today TSH (42623)Indication: Hypothyroidism On: 4-Iwy-711913:03 Request Comments: Jul 2017 MICROALBUMIN: CREATININE RATIO (12829) AND (84679)Indication: Hypertension, essential, benign On: 25-Oaq-845946:51 Request Comments: Mar 2017 URINALYSIS (87121)Indication: Hypertension, essential, benign On: 67-Nio-303107:51 Request Comments: Mar 2017 TSH (78422)Indication: Hypertension, essential, benign On: 96-Bxc-257285:51 Request Comments: Mar 2017 CBC, Platelets & Auto Diff (24091)Indication: Hypertension, essential, benign On: 89-Gmd-243330:51 Request Comments: Mar 2017 Metabolic Panel, Comprehensive (29927)Indication: Hypertension, essential, benign On: 43-Jpb-271524:51 Request TSH (THYROID STIMULATING HORMONE) (46693)Indication: Hypothyroidism On: 58-Vch-182582:53 Request HEPATIC FUNCTION PANEL (18790)Indication: Hypertension, essential, benign On: 10-Umb-309458:47 Request VITAMIN B12 AND FOLATES (25540)Indication: Vitamin B 12 deficiency On: 4-Toa-235889:52 Request CALCIFEDIOL (44756)Indication: DEFICIENCY, VITAMIN D NOS On: 2-Bob-385742:52 Request Urinalysis, Office (04283)Indication: Hematuria, unspecified On: 44-Sni-032643:35 Request MICROALBUMIN URINE QUANT (50931)Indication: Hypertensive heart disease On: 34-Bij-669640:25 Request FECAL OCCULT HGB ASSAY- tubes sent home (97663)Indication: Well woman exam On: 8-Btv-392006:51 Request OCCULT BLOOD FECES SCREEN- card done in office (78045)Indication: Well woman exam On: 9-Cpp-076836:51 Request Renal function Panel (67156)Indication: Hydronephrosis On: 8-Afw-618447:22 Request Iron (66426)Indication: Anemia On: 87-Ntj-411607:39 Request Iron Binding Capacity (TIBC) (94492)Indication: Anemia On: 23-Whv-363659:39 Request OVA & PARASITE DIR SMEAR (66262)Indication: Diarrhea On: 03-Mou-196507:50 Request OCCULT BLOOD FECES SCREEN (62392)Indication: Diarrhea On: 03-Shr-922306:50 Request LEUKOCYTE COUNT, FECAL (12768)Indication: Diarrhea On: 78-Nkq-918085:50 Request C-DIFFICILE, STOOL (08880)Indication: Diarrhea On: 18-Wrt-702389:50 Request LORNA CULTURE-STOOL (95139)Indication: Diarrhea On: 91-Qor-764710:50 Request HEPATIC FUNCTION PANEL (08469)Indication: Hypercholesterolemia On: 06-Ebn-803444:46 Request Lipid Panel (10173)Indication: Hypercholesterolemia On: 81-Gci-765593:46 Request Comments: in three months (approximately) TSH (69924)Indication: Hypothyroidism On: 81-Kpd-983929:06 Request METABOLIC PANEL, COMPREHENSIVE (41711)Indication: Hypertensive heart disease On: 83-Lwm-679008:06 Request LIPID PANEL (58270)Indication: Hypertensive heart disease On: 45-Lgh-181615:06 Request CBC WITH MANUAL DIFF (68171)Indication: Hypertensive heart disease On: 87-Xcn-930800:06 Request LORNA CULTURE-OTHER (92487)Indication: Pharyngitis, acute On: 9-Dto-036494:04 Request CBC (Auto) (47778)Indication: Hypercholesterolemia On: 77-Vii-24180:13 Request Lipid Panel (94462)Indication: Hypercholesterolemia On: :13 Request Metabolic Panel, Comprehensive (18414)Indication: Hypercholesterolemia On: 21-Hzc-23107:13 Request Comments: in six months (approximately) TSH (39351)Indication: Hypothyroidism On: 48-Wvv-880200:06 Request LIPID PANEL (57648)Indication: Hypertension On: 93-Hxg-413338:01 Request Planned Encounters Medical; 3 Month FU - On: 27-Sep-2018 11:15 [facility] Sarai Bro CNP, CNP, Mary E Planned Procedures Flu Vaccine (Quadrivalent) On: 02-Jun-2018 Intent 34513Lo: Sarai Bro CNP Comments: Lot #[id number]/30/2019Site-L dltd, IMDose prefilled syringegiven by: ROSA MARIA CHOIVIS reviewed and ABN signed Sarai Bro CNP MAMMOGRAM BREAST BILATERAL On: 27-May-2018 Intent SCREENING DIGITAL (19254)By: Sarai Bro CNP, CNP, Mary E Radiology - Femur - RightBy: On: 02-Mar-2018 Intent Sarai Bro CNP, CNP, Mary E DEXA SCAN AXIAL SKELETON On: 19-Oct-2017 Intent (91155)By: Sarai Bro CNP, CNP, Mary E Aerosol Treatment (78206)By: On: 07-Sep-2017 Intent Kelly Naqvi Comments: Lungs clear after aerosol treatment Flu Vaccine (Quadrivalent) On: 13-Apr-2017 Intent 59169Sw: Giselle Silva LPN Comments: InfluenzaLot #[id number]/18/18Site-L dltd, IMDose prefilled syringeVIS and ABN signedgiven by:ROSA MARIA cade MAMMOGRAM BREAST BILATERAL On: 05-Jan-2017 Intent SCREENING DIGITAL (38418)By: Comments: after Apr 24 2017 Sarai Bro CNP, CNP, Mary E DEXA SCAN AXIAL SKELETON On: 05-Jan-2017 Intent (85376)By: Sarai Bro CNP Comments: After Apr 24 2017 Sarai Bro CNP Flu Vaccine (Quadrivalent) On: 06-Jul-2016 Intent 57216Ue: Giselle Silva LPN Comments: InfluenzaLot #Lot [id number]/30/17Site-L dltd, IMDose prefilled syringeVIS and ABN signedgiven by:ROSA MARIA cade MAMMOGRAM, SCREENING, BOTH On: 31-Mar-2016 Intent BREAST (47600)By: Sarai Bro CNP, CNP, Mary E MAMMOGRAM, SCREENING, BOTH On: 17-Feb-2016 Intent BREAST (33745)By: Sarai Bro CNP, CNP, Mary E PHYSICAL THERAPY EVALUATION On: 28-Jan-2016 Intent (40085)By: Sarai Bro CNP, CNP, Mary E PHYSICAL THERAPY EVALUATION On: 28-Jan-2016 Intent (86092)By: Sarai Bro CNP, CNP, Mary E Toradol Injection, 30 mg On: 28-Jan-2016 Intent (J1885)By: Sarai Bro CNP, CNP, Mary E Radiology - Lumbar SpineBy: On: 28-Jan-2016 Intent Sarai Bro CNP, CNP, Mary E Radiology - Knee - LeftBy: On: 28-Jan-2016 Intent Sarai Bro CNP, CNP, Mary E Aerosol Treatment (75129)By: On: 24-Dec-2015 Intent Sarai Bro CNP, CNP, Mary E Flu Vaccine (Quadrivalent) On: 10-May-2015 Intent 66687Xg: Hang CARNEY Sarai Moon Comments: Lot:[id number]:02/06/16Dose:0.5mLRoute:IMSite:L DltdGiven By:Kacie signed Hang ANGELIKA Sarai Moon DEXA SCAN AXIAL SKELETON On: 19-Mar-2015 Intent (42757)By: Hang CARNEY Sarai Bro ANGELIKA Sarai Moon MAMMOGRAM, SCREENING, BOTH On: 11-Feb-2015 Intent BREAST (37048)By: Hang CARNEY Sarai Bro ANGELIKA Sarai Moon DEXA SCAN AXIAL SKELETON On: 11-Feb-2015 Intent (79557)By: Tiffaniewojciechyin CARNEYSarai CNP, Mary E Solu -Medrol Injection, 125 On: 25-Jul-2014 Intent mg (J2930)By: Hang CARNEY, Comments: [id number] 5.17right gm125 mgas, ROSA MARIA Sarai Busby CNP Aerosol Treatment (28767)By: On: 25-Jul-2014 Intent Hang ANGELIKASarai CNP, Mary E Toradol Injection, 30 mg On: 18-Jul-2014 Intent (J1885)By: Hang ANGELIKASarai CNP, Mary E Radiology - Lumbar SpineBy: On: 18-Jul-2014 Intent Sarai Bro CNP, CNP, Mary E Radiology - Hip - RightBy: On: 18-Jul-2014 Intent Sarai Bro CNP, CNP, Mary E Prevnar 13 (32601)By: Ghislainerb On: 16-Jul-2014 Intent Giselle CRANE Comments: [id number] arm, IMAS Bone Density StudyBy: Ciesa On: 15-May-2014 Intent ANGELIKASarai CNP, Mary E ADMINISTRATION OF INFLUENZA On: 15-May-2014 Intent VIRUS VACCINE (G0008)By: Hang CARNEY Rianna Hang ANGELIKA, Rianna FLU VAC, SPLIT, >3 YEARS, On: 15-May-2014 Intent INTRAMUSC (16083)By: Hang Comments: Lot:[id number]/24Dose:0.5mLRoute:IMSite:L DltdGiven By:JSONIA signed ANGELIKA Rianna Hang SELF PROPELLED HOT MIX ROLLER OPERATOR, Rianna SPECIMEN HNDLNG/TRNSPRT, [facility] On: 22-Mar-2014 Intent > LAB (08290)By: Hang CARNEY Rianna Hang ANGELIKA, Rianna BILATERAL MAMMOGRAMS On: 18-Dec-2013 Intent (37986)By: Hang CARNEY Rianna Hang ANGELIKA, Rianna Aerosol Treatment (51455)By: On: 22-Sep-2013 Intent Hang CARNEY, Rianna Hang ANGELIKA, Rianna Wax CurettesBy: Hang CARNEY, On: 22-Sep-2013 Intent Sarai Bro ANGELIKA, Rianna Ear Irrigation (83645)By: On: 22-Sep-2013 Intent Hang CARNEY, Rianna Hang CARNEY, Rianna Eprescribed prescriptions On: 18-Aug-2013 Intent (G8553)By: Lucrecia Vargas Eprescribed prescriptions On: 05-May-2013 Intent (G8553)By: Hang CARNEY Rianna Hang ANGELIKA, Rianna ADMINISTRATION OF INFLUENZA On: 05-May-2013 Intent VIRUS VACCINE (G0008)By: Comments: lot # [id number] 6.2014site- L dltdroute-IMdose- 0.5mlVIS and ABN signedMarymount HospitalPenny Grace LPN, LPN FLU VAC, SPLIT, >3 YEARS, On: 05-May-2013 Intent INTRAMUSC (23857)By: Penny Irving LPN MAMMOGRAM, SCREENING, BOTH On: 16-Dec-2012 Intent BREASTS (27170)By: Hang CARNEY Rianna Hang ANGELIKA, Rianna Spirometry (70310)By: Aristides On: 16-Dec-2012 Intent Penny CRANE Comments: mild airway obstruction Aerosol Treatment (69002)By: On: 30-Mar-2012 Intent Sarai Bro CNP, CNP Sarai Moon PFT - CompleteBy: Hang CARNEY, On: 01-Mar-2012 Intent Sarai Bro CNP Sarai Moon Inhaler Demonstration On: 28-Dec-2011 Intent (66312)By: Hang CARNEY Sarai Bro ANGELIKA Sarai Moon Pulse Oximetry (74408)By: On: 28-Dec-2011 Intent Sarai Bro CNP, CNP Sarai Moon Eprescribed prescriptions On: 22-Apr-2011 Intent ([id number])By: Tiffaniewojciechyin CARNEY Sarai Bro ANGELIKA Sarai Moon Eprescribed prescriptions On: 21-Oct-2010 Intent ([id number])By: Hang ANGELIKA Sarai Bro ANGELIKA Sarai Moon Eprescribed prescriptions On: 21-Oct-2010 Intent ([id number])By: Hang CARNEY Sarai Moon Tiffaniewojciechyin CARNEY Sarai Moon MAMMOGRAM, SCREENING, BOTH On: 15-Apr-2010 Intent BREASTS ([id number])By: Hang CARNEY Sarai Bro ANGELIKA Rianna Ultrasound - RenalBy: Hang On: 23-Dec-2009 Intent Sarai CARNEY ANGELIKA Sarai Moon Comments: To be done on December 30 CT - Abdomen & Pelvis (IV On: 17-Dec-2009 Intent Contrast Needed)By: Hang CARNEY Sarai Bro ANGELIKA Sarai Moon ADMINISTRATION OF INFLUENZA On: 22-May-2009 Intent VIRUS VACCINE ([id number])By: Karina Nina LPN FLU VAC, SPLIT, >3 YEARS, On: 22-May-2009 Intent INTRAMUSC ([id number])By: Kelle Comments: Lot #[id number]-left deltoidgiven by:Karina PLAZA LPN Pulse Oximetry ([id number])By: On: 25-Sep-2008 Intent PRESTON Thompson ADMINISTRATION OF INFLUENZA On: 13-Jun-2008 Intent VIRUS VACCINE ([id number])By: Comments: lot #[id number] exp- 01/15site-left delroute-imdose- 0.5 Penny Irving LPN FLU VAC, SPLIT, >3 YEARS, On: 13-Jun-2008 Intent INTRAMUSC ([id number])By: Penny Irving LPN MAMMOGRAM, SCREENING, BOTH On: 28-May-2008 Intent BREASTS ([id number])By: Susan Lee MD Bio Z ([id number])By: Rosa CHRISTIANSEN, On: 28-Nov-2007 Intent Susan Sánchez SPECIMEN HNDLNG/TRNSPRT, OFFC On: 12-Oct-2007 Intent > LAB ([id number])By: Tyesha Ramos DO Bone Density StudyBy: Rosa On: 18-Feb-2007 Intent Susan CHRISTIANSEN Comments: ache in back MAMMOGRAM, SCREENING, BOTH On: 18-Feb-2007 Intent BREASTS ([id number])By: Susan Lee MD Bio Z ([id number])By: Rosa CHRISTIANSEN, On: 20-Jul-2006 Intent Susan Sánchez Planned Medications INJECTION, KETOROLAC TROMETHAMINE, PER 15 MG Ordered: 18-Jul-2014 Pending Ciesa SELF PROPELLED HOT MIX ROLLER OPERATOR, Rianna Ciesa SELF PROPELLED HOT MIX ROLLER OPERATOR, Rianna INJECTION, KETOROLAC TROMETHAMINE, PER 15 MG Ordered: 28-Jan-2016 Pending Ciesa SELF PROPELLED HOT MIX ROLLER OPERATOR, Rianna Ciesa SELF PROPELLED HOT MIX ROLLER OPERATOR, Rianna INJECTION, METHYLPREDNISOLONE SODIUM SUCCINATE, UP TO 125 MG Ordered: 25-Jul-2014 Pending Ciesa SELF PROPELLED HOT MIX ROLLER OPERATOR, Rianna Ciesa SELF PROPELLED HOT MIX ROLLER OPERATOR, Rianna Instructions Name Dates Details Nonsmoker : How to access health information online Indication: Nonsmoker Nonsmoker : How to access health information online - Detail Indication: Nonsmoker Nonsmoker : Patient Instructions Indication: Nonsmoker Nonsmoker : How to access [...] prophylactic vaccination and inoculation against influenza Encounters Office Visit On: 27-Jun-2018 11:16 Encounter Reason: Follow up for chronic medical issues - The patient feels well with no complaints, has good energy level and is sleeping well. Patient has been compliant with instructions. Current medication use: no divya End: 27-Jun-2018 11:44 e effects, compliant with dosing regimen and considered effective by patient. Patient sleeps 6 hours per night. Nutrition: balanced diet.Encounter Diagnosis: Nonsmoker, BMI 31.0-31.9,adult, Hypertensive heart disease, Anemia, Asthma, mild intermittent, Anticoagulated, Vitamin B 12 deficiency, Hypothyroidism [facility] Nurse Visit On: 02-Jun-2018 11:31 Encounter Reason: [...] Encounter Reason: Follow up tests - Date: ()., [ADDITIONAL REASON] Follow up for chronic medical [...] issues: In January had cardioversion by Dr. Tova danielson. On coumadin now Legs both better [...] medical issues: In had cardioversion by Dr. Tova danielson. On coumadin now Legs both better [...] social history. Yes the patient did have (3030) a mini mental status exam done to End: 15-May-2014 11:58 ay. The activities of daily living the patient needs help with are none. The patient has driven in past 6 months. The patient has completed the following preventative measures: mammography (12/20) and co lonoscopy (2012- Dr Tompkins ). The patient does have durable power of claims attorney and living will. The patient has noticed nothing from the geriatic depression scale. Other providers contributing to the katty ent's care are landfill attendant (Dr paz ), fur puller (Dr Vazquez ), urologist (Dr Pope ) [...] the pain as burning. Onset was sudden. End: 22-Mar-2014 9:51 e symptoms occur constantly. [...] [facility] End: 30-Jun-2006 14:12 Payers MedicareHORTENCIA/Deisy Crain; yin guarantor
--- OUTSIDE RECORDS SUMMARY | 2018-09-02 06:57 | XMS RPT_ITS | Continuity of Care Document ---
:1940 Author Organization [facility] Address [address] [place] [address] Phone Care Team Providers Name Role Phone Tiffaniebonita ANGELIKA, Rianna Unavailable Amanda CHRISTIANSEN, Higinio Longoria Unavailable Turner CHRISTIANSEN, Nahun Plaza Unavailable [facility] BC, Eugenie Tovar Unavailable Rosa CHRISTIANSEN, Susan [...] 70 MG Oral Tablet 1 (one) Tablet Tablet q week for 30 days Quantity: 4 {Tablet} Refills: 6 Ordered:02-Mar-2018 Hang CARNEY, Sarai Ace CNP, Sarai Moon Start : 26-Nov-2017 Active Comments:Take w/ water, 30 min before [...] Quantity: 90 {Tablet} Refills: 3 Ordered:16-Oct-2011 Penny Ivring LPN Start : 16-Oct-2011 Active Pacerone 200 [...] Sarai Moon Start : 05-Oct-2016 Active Comments:Dr Patel Vitamin [...] days Refills: 0 Ordered:13-Apr-2017 Hang CARNEY, Sarai Jung CNP Start : 13-Apr-2017 End : 08-Apr-2018 Inactive [...] : 18-Aug-2013 End : 28-Aug-2013 Inactive DRISDOL, [id number] (Oral Capsule) 1 Capsule twice weekly for [...] daily for 0 days Refills: 0 Ordered:31-Mar-2010 Aristides GRADE AND CENTER MARKER, ChrissieInactive LEVSIN/SL, 0.125MG (Sublingual Tablet Sublingual) Tab Sublingual [...] Quantity: 21 {Tablet} Refills: 0 Ordered:15-Nov-2017 Hang FILTRATION OPERATOR, Sarai Malka FILTRATION OPERATOR, Rianna Start : 15-Nov-2017 End : 22-Nov-2017 [...] Quantity: 60 {Capsule} Refills: 0 Ordered:10-May-2015 Slarb GRADE AND CENTER MARKERGiselle Benson Start : 22-Apr-2011 End : 10-May-2015 Discontinued ProAir HFA 108 (90 Base) MCG/ACT Inhalation Aerosol Solution 2 (two) Aerosol Soln tid for 0 days Quantity: 1 {Inhalation} Refills: 6 Ordered:19-Oct-2017 Manny Sladana Start : 07-Sep-2017 End : 19-Oct-2017 Discontinued [...] Lower Extremity Result: Comments: See Note; NOTES: [facility] Cardiovascular Services [address] [place] [address] Venous Duplex US - Paulie Extrem 04/07/18 1000 MR#: [id number] Acct: [id number] Name: VALERIE CRAIN Rep #: [id number] : 1940 77 From: Higinio Patel MD [...] Date Higinio Patel MD CC: Sarai Bro CAN TENDER; Higinio Patel MD Date Dictated: 04/07/18 1000 Date Transcribed: 04/08/18 160 Infantry Indirect Fire Crewmember: Signed 02-Mar-2018 Femur Min 2 Views Result: Comments: See Note; NOTES: [facility] Imaging Services [address] [place] [address] Femur Min 2 Views MR#: [id number] Acct: [id number] Name: VALERIE CRAIN Rep #: [id number] : 1940 F 77 From: Christiano Croft MD PCP: Sarai Bro NP Status: REG CLI Study: Femur Min 2 Views Date of Exam: 03/02/18 Exam# [id number] Ordering Dr: Sarai Bro STUDY: X-RAY - [...] vice support , CC: Sarai Bro NP Infantry Indirect Fire Crewmember: Signed 10-Feb-2018 Echocardiogram Complete Result: Comments: See Note; NOTES: [facility] Cardiovascular Services [address] [place] [address] Echo Complete 02/10/18 1100 MR#: [id number] Acct: [id number] Name: VALERIE CRAIN Rep #: [id number] : 1940 77 From: Amilcar Paz MD Attending Dr: Jennifer Goodwin Status: REG CLI Ordering Dr: Jennifer Goodwin Date: 02/10/18 Location: [facility] Sex: F C Admitted: [facility] For Study: DYSPNEA Procedure This was a [...] Referring Physician: SARAI BRO Performed By: Mary Hines RDCS, RVT 02/10/18 1241 Date Amilcar Paz MD CC: Sarai Bro CAN TENDER; Jennifer Goodwin Date Dictated: 02/10/18 1100 Date Transcribed: 02/10/18 1241 Infantry Indirect Fire Crewmember: Signed 28-Jan-2018 Cardiology Visit Report Result: Comments: See Note; NOTES: [facility] [address] [place] [address] OFFICE VISIT Date of Service: 01/28/18 MR#: [id number] Acct: [id number] Name: VALERIE CRAIN Rep #: [id number] : 1940 Provider: Jennifer Goodwin Age/Sex: 77/F [place] [facility] [place] Status: Signed HPI HPI Details: VALERIE [...] for her age. 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 She does have [...] valve disorder (Chronic) Paroxysmal atrial fibrillation (Chronic) jail (current) use of anticoagulants (Chronic) Benign essential HTN (Chronic) Surgical History History of appendectomy (Resolved) H/O mitral valve repair (Chronic) Family History Father Decea sed, age 48 from [place] CAD (coronary artery disease) Sudden cardiac Myocardial [...] prior to saving. 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 Medical Records Department [address] [facility] [place] [address] Downtime Report MR#: [id number] Acct: [id number] Name: VALERIE CRAIN Rep #: [id number] : 1940 77 From: Anuj Webster PCP: Sarai Bro NP Status: REG RCR This patient was seen during an EMR downtime January 10, 2018 - January 17, 2018. This patient may have a combination of pa per and electronic documentation or all paper documentation. All documentation is viewable within the e-chart portion of [employer] for each patient visit. 09-Nov-2017 Dexa Bone Density Study Result: Comments: See Note; NOTES: [facility] Imaging Services [address] [place] [address] Dexa Bone Density Study MR#: [id number] Acct: [id number] Name: VALERIE CRAIN Rep #: [id number] : 1940 F 77 From: Henry Jones MD PCP: Sarai Bro NP Status: REG CLI Study: Dexa Bone Density Study Date of Exam: 11/09/17 Exam# [id number] Ordering Dr: Sarai Bro STUDY: DUAL E [...] Henry Jones MD at 13:40 EDT Tel [phone], Service support , CC: Sarai Bro NP Infantry Indirect Fire Crewmember: Signed 27-Jul-2017 Cardiology Visit Report Result: Comments: See Note; NOTES: [facility] 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 Imaging Services [address] [place] [address] SCREENING MAMM (CAD), BILAT MR#: [id number] Acct: [id number] Name: SEAN CRAIN Rep #: [id number] : 1940 F 76 From: Henry Jones MD PCP: Sarai Bro Status: REG CLI Study: SCREENING MAMM (CAD), BILAT Date of Exam: 05/17/17 Exam# [id number] Ordering Dr: Sarai Bro MAMMOGRAPH Y - [...] delay biopsy of a clinically suspicious abnormality. [id number] Electronically Signed: Henry Jones MD at 10:21 EDT Tel [phone], Service support , CC: Sarai Bro Infantry Indirect Fire Crewmember: Signed 27-Feb-2017 Carotid Duplex Ultrasound Result: Comments: See Note; NOTES: [facility] Cardiovascular Services [address] [place] [address] Carotid Duplex Ultrasound 02/26/17 1046 MR#: [id number] Acct: [id number] Name: SEAN ABEBE Rep #: [id number] : 1940 76 From: Malcolm Hill MD Attending Dr: Jennifer Goodwin Status: REG CLI Ordering Dr: Jennifer Goodwin Date: 02/26/17 Location: [facility] Sex: F C Admitte d: Reason [...] Dictated: 02/26/17 1046 Date Transcribed: 02/27/17 1103 Infantry Indirect Fire Crewmember: Signed 03-Sep-2016 Chest PA and Lateral Result: Comments: See Note; NOTES: [facility] Imaging Services [address] [place] [address] Verdana 4d Chest PA and Lateral MR#: [id number] Acct: [id number] Name: SEAN CRAIN Rep # : [id number] : 1940 F 76 From: Henry Jones MD PCP: Sarai Bro Status: REG CLI Study: Chest PA and Lateral Date of Exam: 09/03/16 Exam# [id number] Ordering Dr: Nahun Vazquez MD STUD Y: [...] Henry diop MD at 12:41 EST Tel [phone], Service support [phone], CC: Sarai Bro; Nahun Vazquez MD Infantry Indirect Fire Crewmember: Signed 28-Aug-2016 Echocardiogram Complete Result: Comments: See Note; NOTES: [facility] Cardiovascular Services [address] [place] [address] Echo Complete 08/28/16 1003 MR#: [id number] Acct: [id number] Name: SEAN CRAIN p #: [id number] : 1940 76 From: Amilcar Paz MD Attending Dr: Jackson CHRISTIANSEN,Amilcar Status: REG CLI Ordering Dr: Amilcar Paz MD Date: 08/28/16 Location: [facility] Sex: F C Admitted: Reason For Study: AT [facility] Procedure This was a 2D [...] Dictated: 08/28/16 1003 Date Transcribed: 08/28/16 1225 Infantry Indirect Fire Crewmember: Signed 24-Apr-2016 Bilat Scrn Digital AND CAD Result: Comments: See Note; NOTES: [facility] Imaging Services [address] [place] [address] Verdana 4d Bilat Scrn Digital AND CAD MR#: [id number] Acct: [id number] Name: BREANNSEAN Rep #: [id number] : 1940 F 75 From: Henry Jones MD PCP: Sarai Bro Status: REG CLI Study: Jero Edwards Digital AND CAD Date of Exam: 04/24/16 Exam# [id number] Ordering Dr: Sarai Bro MAMMOGRAPHY - BILATERAL [...] significant change since the prior study. ___ [facility]/Jero Edwards Digital AND CAD IMPRESSION: Stable bilateral screening mammogram. Yearly follow-up mammogram recommended. (A) ASSESSMENT CATEGORY: BIRADS Category 1: Negative. A letter regarding these results will be sent to the patient by the facility within 30 days. Approximately 10% of breast cancers are n ot detected by mammography. A normal mammogram should not delay biopsy of a clinically suspicious abnormality. [id number] Electronically Signed: Henry Jones MD at 10:58 EDT Tel [phone], Service support [phone], CC: Sarai Bro Infantry Indirect Fire Crewmember: Signed 04-Mar-2016 PT D/C Summary (1) Result: Comments: See Note; NOTES: [facility] [address] [place] [address] Fax REHABILITATION SE [facility] DISCHARGE SUMMARY MR#: [id number] Acct: [id number] Name: SEAN CRAIN Rep #: [id number] : 1940 75 From: Giselle NELSON Referring [...] please feel free to call me at [phone]. Thank you for the referral of this patie nt. Sincerely, Giselle Yan <Electronically signed by Giselle Yan MPT> 03/04/161916 CC: Sarai Bro Signed 04-Feb-2016 Inital Evaluation (1) - PT Result: Comments: See Note; NOTES: [facility] [address] [place] [address] Fax REHABILITATION [facility] INITIAL EVALUATION MR#: [id number] Acct: [id number] Name: SEAN CRAIN Rep #: [id number] : 1940 75 From: Giselle Yan MPT Referring Dr.: Sarai Bro Status: REG RCR Insurance: MEDICARE PART A B [facility] Patient's Visit Information SEAN CRAIN is [...] to be FAXED BACK to us at [phone] for Medicare purposes . Please let me know if there are questions or concerns regarding this plan of care. Physician Signature: Date: <Electronical ly signed by Giselle Yan MPT> 02/04/16 1628 CC: Sarai Bro Signed For Medicare only, by signing this I certify the plan of care. Physicians Signature Date 28-Jan-2016 Knee 4 or More Views Result: Comments: See Note; NOTES: [facility] Imaging Services [address] [place] [address] Verdana 4d Knee 4 or More Views MR#: [id number] Acct: [id number] Name: SEAN DWYER Rep #: [id number] : 1940 F 75 From: Shreyas Beaver MD PCP: Sarai Bro Status: REG CLI Study: Knee 4 or More Views Date of Exam: 01/28/16 Exam# [id number] Ordering Dr: Sarai Bro STUDY: X-RAY - [...] MD at 19:39 EDT , Service support [phone], ORDER # : [id number] RAD/Knee 4 or More Views IMPRESSION: No acute abnormality. Mild degenerative changes. Electronically Signed: Shreyas Beaver MD at 19:39 EDT , Service sup port [phone], CC: Sarai Bro Infantry Indirect Fire Crewmember: Signed 28-Jan-2016 L/S Spine Min 4 Views Result: Comments: See Note; NOTES: [facility] Imaging Services [address] [place] [address] Verdana 4d L/S Spine Min 4 Views MR#: [id number] Acct: [id number] Name: SEAN BERRIOS Rep #: [id number] : 1940 F 75 From: Shreyas Beaver MD PCP: Sarai Bro Status: REG CLI Study: L/S Spine Min 4 Views Date of Exam: 01/28/16 Exam# [id number] Ordering Dr: Shital Bro STUDY: X-RAY - [...] MD at 19:40 EDT , Service support [phone], Fax RAD/L/S Spine Min 4 Views IMPRESSION: No acute abnormality. Mild to moderate degenerative changes. Electronically Signed: Shreyas Beaver MD at 19:40 EDT T el [phone], Service support [phone], CC: Sarai Bro Infantry Indirect Fire Crewmember: Signed 19-Mar-2015 Dexa Bone Density Study (HP) Result: Comments: See Note; NOTES: [facility] Imaging Services [address] [place] [address] Bone Density Report MR#: [id number] Acct: [id number] Name: SEAN CRAIN Rep #: [id number] : 1940 F 74 From: Henry Jones MD PCP: Sarai Bro Status: REG CLI Study: Dexa Bone Density Study (HP) Date of Exam: 03/19/15 Exam# [id number] Ordering Dr: Sarai Bro STUD Y: DUAL [...] Henry Jones MD at 14:35 EDT Tel [phone], Servic e support [phone], CC: Sarai Bro Infantry Indirect Fire Crewmember: Signed 12-Mar-2015 Bilat Scrn Digital AND CAD Result: Comments: See Note; NOTES: [facility] Imaging Services [address] [place] [address] Breast Imaging Report MR#: [id number] Acct: [id number] Name: SEAN CRAIN Rep #: [id number] : 1940 F 74 From: Henry Jones MD PCP: Sarai Bro Status: REG CLI Study: Bilat Scrn Digital AND CAD Date of Exam: 03/12/15 Exam# [id number] Ordering Dr: Sarai Bro MAMM OGRAPHY - [...] Jones MD 23/03/04 at 9:59 EDT Tel [phone], Service support [phone], CC: Sarai Bro Infantry Indirect Fire Crewmember: Signed 16-Jan-2015 Operative Report Result: Comments: See Note; NOTES: [facility] Medical Records Department [address] [place] [address] Operative Report MR#: [id number] Acct: [id number] Name: SEAN CRAIN Rep #: [id number] : 1940 74 From: Amilcar Paz MD [...] care. Amilcar Paz MD T: NTS JOB: [id number] 01/16/15 0901 <Electronically signed by Amilcar Paz MD&amp ;#62; Date Amilcar Paz MD CC: Sarai Bro; Amilcar Paz MD Date Dictated: 01/14/151318 Date Transcribed: 01/14/151318 Infantry Indirect Fire Crewmember: Signed 15-Jan-2015 Consultation Result: Comments: See Note; NOTES: [facility] Medical Records Department [address] [place] [address] Consultation MR#: [id number] Acct: [id number] Name: SEAN CRAIN Rep #: [id number] : 1940 74 From: Armando Guerra MD [...] C C: Amilcar Bro T: NTS JOB: [id number] 01/15/15 0643 <Electronically signed by Armando Guerra MD> Date Armando Guerra MD CC: Sarai Bro; Armando Guerra MD; Amilcar Paz MD Date Dictated: 01/14/151356 Date Transcribed: 01/14/151356 Infantry Indirect Fire Crewmember: Signed 07-Jan-2015 Chest PA and Lateral Result: Comments: See Note; NOTES: [facility] Imaging Services [address] [place] [address] Radiology Report MR#: [id number] Acct: [id number] Name: SEAN CRAIN Rep #: [id number] : 1940 F 74 From: Henry Jones MD PCP: Sarai Bro Status: PRE CLI Study: Chest PA and Lateral Date of Exam: 01/07/15 Exam# [id number] Ordering Dr: Amilcar Paz MD STUDY: X-RA [...] Henry Jones MD at 14:28 EDT Tel [phone], Service support [phone], RAD/Chest PA and Lateral IMPRESSION: Hyperinflation. No acute abnormality is seen. Electronically Signed: Henry Jones MD 2014 at 14:28 EDT Tel [phone], Service support [phone], CC: Sarai Bro; Amilcar Paz MD Infantry Indirect Fire Crewmember: Signed 24-Dec-2014 Echocardiogram Complete Result: Comments: See Note; NOTES: [facility] Cardiovascular Services [address] [place] [address] Echo Complete 12/24/14 1003 MR#: [id number] Acct: [id number] Name: SEAN CRAIN Rep #: [id number] : 1940 74 From: Amilcar Paz MD Attending Dr: Jennifer Monroe Status: REG CLI Ordering Dr: Jennifer Monroe Date: 12/24/14 Location: [facility] Sex: F C Admitted: Pr raji [...] Jennifer Monroe Performed By: SANTA Banegas 12/24/14 1839 Date Amilcar Paz MD CC: Sarai Bro; Jennifer Monroe Date Dictated: 12/24/14 1003 Date Transcribed: 12/24/14 1359 Infantry Indirect Fire Crewmember: Signed 19-Jul-2014 Hip min 2 Views Result: Comments: See Note; NOTES: [facility] Imaging Services [address] [place] [address] Radiology Report MR#: [id number] Acct: [id number] Name: SEAN CRAIN Rep #: [id number] : 1940 F 74 From: Henry Jones MD PCP: Sarai Bro Status: REG CLI Study: Hip min 2 Views Date of Exam: 07/19/14 Exam# [id number] Ordering Dr: Sarai Bro STUDY: X-RAY - [...] Henry Jones MD at 11:38 EST Tel [phone], Service support [phone], RAD/Hip min 2 Views IMPRESSION: Degenerative changes of the hip. Electronically Signed: Henry Jones MD at 11:38 EST Tel [phone], Service support [phone], CC : Sarai Bro Infantry Indirect Fire Crewmember: Signed 19-Jul-2014 L/S Spine Min 4 Views Result: Comments: See Note; NOTES: [facility] Imaging Services [address] [place] [address] Radiology Report MR#: [id number] Acct: [id number] Name: SEAN CRAIN Rep #: [id number] : 1940 F 74 From: Henry Jones MD PCP: Sarai Bro Status: REG CLI Study: L/S Spine Min 4 Views Date of Exam: 07/19/14 Exam# [id number] Ordering Dr: Sarai Bro STUDY: X-RAY - [...] Henry Jones MD at 13:19 EST Tel [phone], Service support [phone], CC: Sarai Bro Infantry Indirect Fire Crewmember: Signed 05-Jan-2014 Bilat Scrn Digital & CAD Result: Comments: See Note; NOTES: [facility] Imaging Services [address] [facility] [place] [address] Breast Imaging Report MR#: [id number] Acct: [id number] Name: SEAN CRAIN Rep #: [id number] : 1940 F 73 From: Henry Jones MD PCP: Status: [facility] CLI Exam# [id number] Ordering Dr: Sarai Bro MAMMOGRAPHY - BILATERAL [...] Henry Jones MD at 9:58 EDT Tel [phone], Service support [phone], CC: Sarai Bro; Amilcar Paz MD Infantry Indirect Fire Crewmember: Signed Immunization Name Dates Details Influenza (3 years and up) on: 13-Jun-2008 Influenza (3 years and up) on: 22-May-2009 Comments: Lot #[id number]-left deltoidgiven by:CDH Family History Unknown Family Member Name Dates Details Father Comments: [place] at 48 & Status: Active Social History Name Dates Details Caffeine Use Comments: 2 cups coffee qd 1 soda qod Status: Active 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 Status: Inactive Tobacco use: Never smoker. Status: Inactive Vital Signs Date Test Result Details 94-Zxz-868220:20 Temperature 99.4 f Comments: Method: Temporal Pulse [...] kg/m2 Body Surface Area Calculated 1.87 m2 4-Rba-281286:30 Temperature 97.7 f Comments: Method: Temporal Pulse [...] kg/m2 Body Surface Area Calculated 1.86 m2 78-Fam-167185:20 Temperature 98.2 f Pulse 67 /min Comments: [...] kg/m2 Body Surface Area Calculated 1.85 m2 18-Njs-454923:44 Temperature 98 f Comments: Method: Oral Pulse [...] kg/m2 Body Surface Area Calculated 1.81 m2 65-Dqh-925632:30 Temperature 99.2 f Comments: Method: Oral Pulse [...] kg/m2 Body Surface Area Calculated 1.81 m2 72-Mpm-766873:39 Temperature 99 f Comments: Method: Oral Pulse [...] Value Details :18 Prothrombin Time w/INR Comments: [facility] [address] [place], [place], [phone](990) INR 2.7 (Normal) PROTIME 28.4 s (Abnormal) Range: 11.7-14.9 60-Pqm-243903:14 Prothrombin Time w/INR Comments: [facility] [address] [place], [place], [phone](024) INR 2.2 (Normal) PROTIME 24.6 s (Abnormal) Range: 11.7-14.9 :18 Prothrombin Time w/INR Comments: [facility] [address] [place], [place], [phone](635) INR 2.2 (Normal) PROTIME 24.3 s (Abnormal) Range: 11.7-14.9 :26 Prothrombin Time w/INR Comments: [facility] [address] [place], [place], [phone](043) INR 2.2 (Normal) PROTIME 24.6 s (Abnormal) Range: 11.7-14.9 :13 Prothrombin Time w/INR Comments: [facility] [address] [place], [place], [phone](071) INR 2.3 (Normal) PROTIME 25.7 s (Abnormal) Range: 11.7-14.9 :58 Prothrombin Time w/INR Comments: [facility] [address] [place], [place], [phone](712) INR 2.0 (Normal) PROTIME 22.8 s (Abnormal) Range: 11.7-14.9 :45 CBC W/Diff, Automated Comments: [facility] [address] [place], [address] ; another Absolute Lymph 2.13 [...] Range: 4.4-11.0 :45 Comprehensive Metabolic Profil Comments: [facility] [address] [place], [address] ; Dr Jackson GAP 8 [...] Comments: Please note revised GLUCOSE reference range icsdatgty38/02/2018. 64-Tbx-18134:45 Lipid Profile Comments: [facility] [address] [place], [address] VLDL 17 mg/dL (Normal) Range: 5-40 LDL [...] 200-240 mg/dL Borderline >240 mg/dL High Risk 86-Nuc-05449:45 Microalb:Creat Ratio,Random UR Comments: [facility] [address] [place], [place], [id number] MALB:CREAT 8.4 {mg/g_CRE} (Normal) MICROALBUMIN,UR 13.5 mg/L (Normal) UR CREAT 160.00 mg/dL (Normal) 98-Oom-83431:45 Prothrombin Time w/INR Comments: [facility] [address] [place], [address] INR 1.9 (Normal) PROTIME 21.5 s (Abnormal) Range: 11.7-14.9 Comments: ADDENDA: cardio :45 Thyroid Stim Hormone (TSH) Comments: [facility] [address] [place], [address] TSH 2.92 {uIU/mL} (Normal) Range: 0.358-3.74 72-Pyi-16945:45 Urinalysis, Routine (Dipstick) Comments: How was Urine Obtained? [facility] [address] [place], [address] ; other doc LEUK ESTERASE 100 /ul (Abnormal) OCCULT BLOOD-UR 50 /ul (Abnormal) NITRITE UR Negative (Normal) UROBILI Normal mg/dL (Normal) PROT DIPSTX Negative mg/dL (Normal) pH UR 6.0 (Normal) Range: 5.0 - 8.0 SP.GR. DIPSTX 1.020 (Normal) Range: 1.002-1.030 KETONE UR Negative mg/dL (Normal) BILIRUBIN URINE Negative mg/dL (Normal) GLUCOSE, UR Normal mg/dL (Normal) CLARITY Cloudy (Normal) COLOR Yellow (Normal) 01-Cip-780881:31 Prothrombin Time w/INR Comments: [facility] [address] [place], [place], [phone] INR 2.1 (Normal) PROTIME 23.3 s (Abnormal) Range: 11.7-14.9 3-Iqr-716880:20 Prothrombin Time w/INR Comments: [facility] [address] [place], [id number] INR 2.2 (Normal) Comments: ADDENDA: managed by cardio PROTIME 24.1 s (Abnormal) Range: 11.7-14.9 64-Pbu-668728:40 Prothrombin Time w/INR Comments: [facility] [address] [place], [phone] ; managed by cardio INR 2.0 (Normal) PROTIME 22.9 s (Abnormal) Range: 11.7-14.9 68-Swg-830966:13 Prothrombin Time w/INR Comments: [facility] [address] [place], [place], [address] INR 1.6 (Normal) PROTIME 19.5 s (Abnormal) Range: 11.7-14.9 11-Fsj-267406:28 Prothrombin Time w/INR Comments: [facility] [address] [place], [phone] ; cardio INR 1.8 (Normal) PROTIME 19.8 s (Abnormal) Range: 11.7-14.9 8-Tgl-913441:53 Prothrombin Time w/INR Comments: [place] [address] [place], [address] INR 2.4 (Normal) PROTIME 24.8 s (Abnormal) Range: 11.7-14.9 1-Wgq-040118:26 Prothrombin Time w/INR Comments: [facility] [address] [place], [address] INR 1.9 (Normal) PROTIME 21.2 s (Abnormal) Range: 11.7-14.9 71-Qyc-338966:42 Rapid Flu (39226 x 2) Influenza A Ag POS B (Normal) 95-Tlb-971523:04 Prothrombin Time w/INR Comments: [facility] [address] [place], [place], [id number] ; cardio manages INR 1.4 (Normal) PROTIME 16.5 s (Abnormal) Range: 11.7-14.9 58-Wrw-294684:28 Prothrombin Time w/INR Comments: [facility] [address] [place], [place], [address] INR 1.2 (Normal) PROTIME 14.3 s (Normal) Range: 11.7-14.9 4-Lbi-786515:11 Prothrombin Time w/INR Comments: [facility] [address] [place], [place], [address] INR 2.0 (Normal) PROTIME 21.6 s (Abnormal) Range: 11.7-14.9 78-Swk-411843:18 CBC W/Diff, Automated Comments: [facility] [address] [place], [address] Absolute Lymph 2.38 {X10_3/ul} (Normal) [...] Range: 4.4-11.0 :18 Prothrombin Time w/INR Comments: [facility] [address] [place], [place], [address] INR 2.1 (Normal) PROTIME 22.8 s (Abnormal) Range: 11.7-14.9 :52 POTASSIUM SERUM (50044) Comments: STAT; Order Date: 07/23/17Order Info: [id number] - KComments: [facility] Defodzljpl[address] [place], [place], [address] K 4.4 mmol/L (Normal) Range: 3.5-5.1 05-Ynm-688852:56 Microscopic Examination Comments: PATIENT NOT FASTINGPERFORMED BY: [employer]Peerin [place] [id number] Bacteria Few (Normal) Mucus Threads Present (Normal) Epithelial Cells (non renal) 0-10 {/hpf} (Normal) Range: 0 - 10 RBC 3-10 {/hpf} (Abnormal) Range: 0 - 2 WBC 0-5 {/hpf} (Normal) Range: 0 - 5 :56 VITAMIN B-12 (CYANOCOBALAMIN) Comments: PATIENT NOT FASTINGPERFORMED BY: [employer] Eavcwx8113 MurraySecurActiveblin [place] [id number] (31003) Vitamin B12 451 pg/mL (Normal) Range: 232-1245 Comments: Please note reference interval change :56 TSH (33294) Comments: PATIENT NOT FASTINGPERFORMED BY: [employer] Cqvvjb0957 [address] Bany[address] [place] [id number] TSH 2.910 {uIU/mL} (Normal) Range: 0.450-4.500 :56 URINALYSIS, W/ MICRO (95195) Comments: PATIENT NOT FASTINGPERFORMED BY: The Auto VaultRobert Wood Johnson University Hospital at HamiltonBsacyw6210 [facility] [id number] Microscopic Examination See below: (Normal) Comments: Microscopic was indicated and was performed. Nitrite, Urine Negative (Normal) Urobilinogen,Semi-Qn 0.2 mg/dL (Normal) Range: 0.2-1.0 Bilirubin Negative (Normal) Occult Blood 1+ (Abnormal) Ketones Negative (Normal) Glucose Negative (Normal) Protein Negative (Normal) WBC Esterase Trace (Abnormal) Appearance Clear (Normal) Urine-Color Yellow (Normal) pH 7.0 (Normal) Range: 5.0-7.5 Specific [place] 1.017 (Normal) Range: 1.005-1.030 :56 MICROALBUMIN: CREATININE RATIO Comments: PATIENT NOT FASTINGPERFORMED BY: The Auto VaultRobert Wood Johnson University Hospital at HamiltonDeltja2138 [facility] [id number] (27[address]) AND (10479) Microalb/Creat Ratio 7.4 {mg/g_creat} (Normal) Range: 0.0-30.0 Microalbumin, Urine 5.0 ug/mL (Normal) Creatinine, Urine 68.0 mg/dL (Normal) :56 METABOLIC PANEL, COMPREHENSIVE Comments: PATIENT NOT FASTINGPERFORMED BY: iversityBaraga [facility] Hospital6370 [facility] [id number] (23224) ALT (SGPT) 18 [iU]/L (Normal) Range: 0-32 [...] Glucose, Serum 87 mg/dL (Normal) Range: 65-99 88-Kcq-182814:56 CBC W/AUTO DIFF WBC (84476) Comments: PATIENT NOT FASTINGPERFORMED BY: LabCoRobert Wood Johnson University Hospital at HamiltonFurfug8576 [facility] [id number] Immature Grans (Abs) 0.0 {x10E3/uL} (Normal) Range: [...] Range: 3.4-10.8 :38 Prothrombin Time w/INR Comments: [facility] [address]ysot[address] [place], [address] INR 2.0 (Normal) PROTIME 22.0 s (Abnormal) Range: 11.7-14.9 94-Qzd-261973:21 Prothrombin Time w/INR Comments: [facility] [address]va[address] [place], [address] INR 2.5 (Normal) PROTIME 26.0 s (Abnormal) Range: 11.7-14.9 :12 Lipid Profile Comments: Order Date: 12/04/16Order Info: [id number] - *Hepatic Function PanelOrder Info: [id number] - *Lipid Profile CC PCPComments: 12 hours fasting, may have water.[facility] [address]plcwbd[address] [place], [place], [address](519) VLDL 21 mg/dL (Normal) Range: 5-40 LDL [...] Info: 0788-1 - *Hepatic Function PanelOrder Info: [id number] - *Lipid Profile CC PCPComments: 12 hours fasting, may have water.[facility] M[address]htzxpdc[address] [place], [place], [phone] D BILI 0.09 mg/dL (Normal) Range: 0.00-0.30 T BILI 0.50 mg/dL (Normal) Range: 0.20-1.00 ALT 21 U/L (Normal) Range: 12-78 ALK P 78 U/L (Normal) Range: 45-117 AST 16 U/L (Normal) Range: 15-37 GLOB 3.1 g/dL (Normal) Range: 2.2-4.2 ALB 3.5 g/dL (Normal) Range: 3.4-5.0 Comments: Please note revised Albumin AND Globulin reference rangeeffective 2017. T PROT 6.6 g/dL (Normal) Range: 6.4-8.2 67-Vyy-784720:39 Prothrombin Time w/INR Comments: [facility] [address] [place], [place], [address] INR 2.4 (Normal) PROTIME 24.9 s (Abnormal) Range: 11.7-14.9 :43 Prothrombin Time w/INR Comments: [facility] [address] [place], [place], [address] INR 2.2 (Normal) PROTIME 23.9 s (Abnormal) Range: 11.7-14.9 :22 CBC W/Diff, Automated Comments: [facility] [address] [place], [place], [address] ; OV 9/5 Absolute Lymph 2.11 {X10_3/ul} [...] Range: 4.4-11.0 09-Apr-20179:22 Comprehensive Metabolic Profil Comments: [facility] Omnybblect1153 [place], [address] GAP 7 (Normal) Range: 5-15 CO2 33.0 [...] 70-110 :22 Thyroid Stim Hormone (TSH) Comments: [facility] Khcadpxmhk[address] [place], [place], [address] TSH 3.52 {uIU/mL} (Normal) Range: 0.358-3.74 75-Jjx-042320:37 Prothrombin Time w/INR Comments: [facility] Qfvoumrktr8120 [place], [address] INR 2.1 (Normal) PROTIME 22.4 s (Abnormal) Range: 11.7-14.9 86-Ppc-989653:12 Prothrombin Time w/INR Comments: PT ORDER IS AND T4 IS [facility] F[address]mskmgru[address] [place], [place], [phone] INR 2.1 (Normal) PROTIME 23.1 s (Abnormal) Range: 11.7-14.9 82-Cny-340254:11 T4 Total, Thyroxin Comments: Order Date: 02/19/17Order Info: [id number] - *T4 (Total)Comments: Reason:Order Info: [id number] - *[facility] Kz[address]uhcccq[address] [place], [place], [address] T4 THYROXIN 7.2 ug/dL (Normal) Range: 4.8-13.9 67-Ecd-103838:11 Thyroid Stim Hormone (TSH) Comments: Order Date: 02/19/17Order Info: [id number] - *T4 (Total)Comments: Reason:Order Info: [id number] - *[facility] Dpkehbebcg3493 [address] [place], [address] TSH 1.56 {uIU/mL} (Normal) Range: 0.358-3.74 :37 Prothrombin Time w/INR Comments: [facility] H[address]jtrlplb6544 [place], [address] INR 1.9 (Normal) PROTIME 21.4 s (Abnormal) Range: 11.7-14.9 5-Csm-068518:50 Prothrombin Time w/INR Comments: [facility] Rwnlxtvtqx3097 [address] [place], [address] INR 2.0 (Normal) PROTIME 21.6 s (Abnormal) Range: 11.7-14.9 87-Wyr-685785:37 Prothrombin Time w/INR Comments: [facility] Zufoinuqwh55[address] [place], [address] INR 2.5 (Normal) PROTIME 25.6 s (Abnormal) Range: 11.7-14.9 81-Uif-242152:18 Prothrombin Time w/INR Comments: [facility] Eqvjemlyvl4576 [place], [address] INR 2.1 (Normal) PROTIME 22.5 s (Abnormal) Range: 11.7-14.9 71-Bxe-325455:17 Lipid Profile Comments: Order Date: 06/02/16Order Info: [id number]- [id number] - *Hepatic Function PanelDR.JACKSON BROWNEICHELLE LIPID LIVEROrder Date: 06/02/16Order Info: [id number] - *Lipid Profile CC PCPComments: 12 hours fasting, [facility] have [facility]ala[facility] Sqwxdzggza8507 [place], [address] VLDL 31 mg/dL (Normal) Range: 5-40 LDL [...] 200-240 mg/dL Borderline >240 mg/dL High Risk 33-Rvh-547239:17 Liver Profile Comments: Order Date: 06/02/16Order Info: [id number]- 1 - *Hepatic Function PanelDR.JACKSON PTMICHELLE LIPID LIVEROrder Date: 06/02/16Order Info: [id number] - *Lipid Profile CC PCPComments: 12 hours fasting, [facility] have [facility]ala[facility] Giwgexgzvn4716 [place], [address] D BILI 0.09 mg/dL (Normal) Range: 0.00-0.30 T BILI 0.50 mg/dL (Normal) Range: 0.20-1.00 ALT 28 U/L (Normal) Range: 12-78 ALK P 93 U/L (Normal) Range: 45-117 AST 21 U/L (Normal) Range: 15-37 GLOB 3.4 g/dL (Normal) Range: 2.3-3.5 ALB 4.0 g/dL (Normal) Range: 3.4-5.0 T PROT 7.4 g/dL (Normal) Range: 6.4-8.2 6-Yud-398619:32 Prothrombin Time w/INR Comments: [facility] [address]qiducoktv5[address] [place], [address] ; jackson manages INR 1.8 (Normal) PROTIME 20.2 s (Abnormal) Range: 11.7-14.9 62-Kdc-511185:09 Prothrombin Time w/INR Comments: [facility] Dxtbixlwqh6819 [place], [address] ; another doc INR 2.1 (Normal) PROTIME 23.1 s (Abnormal) Range: 11.7-14.9 81-Bxb-951456:10 Metabolic Panel, Comprehensive Comments: today; PATIENT NOT FASTINGPERFORMED BY: [facility] Hvvbyz5290 [place] [id number] ([address]246) ALT (SGPT) 16 [iU]/L (Normal) Range: 0-32 [...] Glucose, Serum 89 mg/dL (Normal) Range: 65-99 88-Zoc-165954:26 Prothrombin Time w/INR Comments: [facility] Kmozqfetcg0652 [address] [place], [place], [address] INR 2.2 (Normal) PROTIME 23.7 s (Abnormal) Range: 11.7-14.9 89-Zze-711967:52 CBC-Complete Blood Cnt No Diff Comments: [facility] [address] [place], [address] ; sibilia MPV 10.8 fL (Normal) Range: [...] Range: 4.4-11.0 :58 Prothrombin Time w/INR Comments: [facility] [address]ujfkppw38[address] [place], [place], [address] INR 2.0 (Normal) PROTIME 22.4 s (Abnormal) Range: 11.7-14.9 52-Zhp-898664:49 Prothrombin Time w/INR Comments: [facility] [address]jdp[address] [place], [address] INR 2.0 (Normal) PROTIME 22.3 s (Abnormal) Range: 11.7-14.9 65-Brd-415351:54 CBC WITH MANUAL DIFF (67870) Comments: PATIENT NOT FASTINGPERFORMED BY: CB [facility] Ycqnir7793 [facility] [id number] Immature Grans (Abs) 0.0 {x10E3/uL} (Normal) Range: [...] 3.77-5.28 WBC 6.2 {x10E3/uL} (Normal) Range: 3.4-10.8 82-Xab-238985:54 Metabolic Panel, Comprehensive Comments: PATIENT NOT FASTINGPERFORMED BY: [facility]6370 [facility] [id number] (81192) ALT (SGPT) 18 [iU]/L (Normal) Range: 0-32 [...] Glucose, Serum 86 mg/dL (Normal) Range: 65-99 53-Koe-666624:54 TSH (59800) Comments: PATIENT NOT FASTINGPERFORMED BY: LabCoRobert [facility] Johnson [facility] at HamiltonYyaebp6180 [facility] [id number] TSH 2.890 {uIU/mL} (Normal) Range: 0.450-4.500 13-Ita-517649:23 Prothrombin Time w/INR Comments: [facility] Dhotvysojb3686 [address] [place], [place], [address] ; managed by cardio INR 2.6 (Normal) PROTIME 27.4 s (Abnormal) Range: 11.7-14.9 01-Kbi-20939:54 Prothrombin Time w/INR Comments: [facility] Sxxpftgwpv8530 [address] [place], [place], [address] ; another doc INR 2.0 (Normal) PROTIME 22.3 s (Abnormal) Range: 11.7-14.9 :53 Lipid Profile Comments: Order Date: 05/22/16 Order #: [id number] Hospital Xlnhdgoeka0028 [address] [place], [place], [address] VLDL 21 mg/dL (Normal) Range: 5-40 LDL [...] Profile Comments: Order Date: 05/22/16 Order #: [id number] Hospital Ytxagwcqwh7543 [address] [place], [place], [address] D BILI < 0.05 mg/dL (Normal) Range: [...] Range: 6.4-8.2 :09 Prothrombin Time w/INR Comments: [facility] [address] [place], [place], [address] INR 2.5 (Normal) PROTIME 26.3 s (Abnormal) Range: 11.7-14.9 :59 Prothrombin Time w/INR Comments: [facility] Wozfeav[address] [place], [place], [address] ; managed by cardio INR 2.9 (Normal) PROTIME 29.3 s (Abnormal) Range: 11.7-14.9 :05 Prothrombin Time w/INR Comments: [facility] Gotwig[address] [place], [address] INR 2.0 (Normal) PROTIME 22.3 s (Abnormal) Range: 11.7-14.9 79-Ijh-984701:11 Prothrombin Time w/INR Comments: [facility] B[address]oy[address] [place], [place], [address] INR 2.7 (Normal) Comments: ADDENDA: managed by cardio PROTIME 27.7 s (Abnormal) Range: 11.7-14.9 :14 Prothrombin Time w/INR Comments: [facility] Tb[address]qb[address] [place], [place], [address] ; managed by Jackson INR 2.7 (Normal) PROTIME 28.1 s (Abnormal) Range: 11.7-14.9 :45 Prothrombin Time w/INR Comments: [facility] Th[address]jikszxa[address] [place], [place], [address] ; managed by cardio INR 3.1 (Normal) PROTIME 31.3 s (Abnormal) Range: 11.7-14.9 :27 Prothrombin Time w/INR Comments: [facility] [address]eqbakub[address] [place], [place], [address] ; managed by cardio INR 3.1 (Normal) PROTIME 31.1 s (Abnormal) Range: 11.7-14.9 :22 Prothrombin Time w/INR Comments: [facility] Q[address]dsabjp[address] [place], [place], [address] INR 2.6 (Normal) PROTIME 27.4 s (Abnormal) Range: 11.7-14.9 16-Jan-20169:08 Prothrombin Time w/INR Comments: [facility] [address] [place], [place], [address] ; managed with Dr. paz INR 4.1 (Abnormal) Comments: CRITICAL VALUE REPEATED AND VERIFIED. CALLED TO [facility]01/16/16 1251 Elza Hinojosa.RESULTS READ BACK BY SAME . PROTIME 38.2 s (Abnormal) Range: 11.7-14.9 90-Pxc-748967:11 Microscopic Examination Comments: PATIENT WAS FASTINGPERFORMED BY: [facility] NetworkFormerly [facility] [id number] Bacteria None seen (Normal) Mucus Threads Present (Normal) Epithelial Cells (non renal) 0-10 {/hpf} (Normal) Range: 0 - 10 RBC 11-30 {/hpf} (Abnormal) Range: 0 - 2 WBC 0-5 {/hpf} (Normal) Range: 0 - 5 26-Daj-917608:11 MICROALBUMIN: CREATININE RATIO Comments: PATIENT WAS FASTINGPERFORMED BY: [facility] [id number] (66286) AND (17167) Microalb/Creat Ratio 11.4 {mg/g_creat} (Normal) Range: 0.0-30.0 Microalbumin, Urine 12.1 ug/mL (Normal) Comments: Please note reference interval change Creatinine, Urine 106.3 mg/dL (Normal) Comments: Please note reference interval change 58-Cwk-801026:11 URINALYSIS (85886) Comments: PATIENT WAS FASTINGPERFORMED BY: [facility] [id number] Microscopic Examination See below: (Normal) Comments: Microscopic was indicated and was performed. Nitrite, Urine Negative (Normal) Urobilinogen,Semi-Qn 0.2 mg/dL (Normal) Range: 0.2-1.0 Bilirubin Negative (Normal) Occult Blood 2+ (Abnormal) Ketones Negative (Normal) Glucose Negative (Normal) Protein Negative (Normal) WBC Esterase Negative (Normal) Appearance Clear (Normal) Urine-Color Yellow (Normal) pH 7.0 (Normal) Range: 5.0-7.5 Specific [place] 1.018 (Normal) Range: 1.005-1.030 30-Dzt-559027:11 Metabolic Panel, Comments: PATIENT WAS FASTINGPERFORMED BY: [facility]6370 [facility] [id number] Information: [id number], [id number] Comprehensive (01016) ALT (SGPT) 14 [iU]/L (Normal) Range: 0-32 [...] Glucose, Serum 91 mg/dL (Normal) Range: 65-99 89-Mhh-773137:11 TSH (03978) Comments: PATIENT WAS FASTINGPERFORMED BY: [facility] Pezrom1191 [facility] [id number] TSH 2.260 {uIU/mL} (Normal) Range: 0.450-4.500 :17 Prothrombin Time w/INR Comments: [facility] Q[address]oj[address] [place], [place], [address] INR 2.8 (Normal) PROTIME 28.4 s (Abnormal) Range: 11.7-14.9 :40 Lipid Profile Comments: [facility] Z[address]fd[address]rym[address] [place], [place], [address] VLDL 22 mg/dL (Normal) Range: 5-40 LDL [...] mg/dL High Risk :40 Liver Profile Comments: [facility] [address]kexixp[address] [place], [place], [address] D BILI 0.10 mg/dL (Normal) Range: 0.00-0.30 T BILI 0.60 mg/dL (Normal) Range: 0.20-1.00 ALT 26 U/L (Normal) Range: 12-78 ALK P 86 U/L (Normal) Range: 50-136 AST 20 U/L (Normal) Range: 15-37 GLOB 3.4 g/dL (Normal) Range: 2.3-3.5 ALB 3.9 g/dL (Normal) Range: 3.4-5.0 T PROT 7.3 g/dL (Normal) Range: 6.4-8.2 :26 Prothrombin Time w/INR Comments: [facility] [address]awqyanuau[address] [place], [place], [address] INR 2.6 (Normal) Comments: ADDENDA: handled by cardio PROTIME 27.3 s (Abnormal) Range: 11.7-14.9 :40 Prothrombin Time w/INR Comments: [facility] [address] [place], [address] INR 2.4 (Normal) PROTIME 26.4 s (Abnormal) Range: 11.7-14.9 9-Tuw-960603:03 Prothrombin Time w/INR Comments: [facility] Eoxjjmnxdd80[address] [place], [address] ; per pop up in EMR cardio manages INR INR 2.2 (Normal) PROTIME 24.5 s (Abnormal) Range: 11.7-14.9 37-Kba-093131:51 Prothrombin Time w/INR Comments: [place] [address] [address] [place], [address] INR 1.6 (Normal) PROTIME 19.0 s (Abnormal) Range: 11.7-14.9 Comments: ADDENDA: managed by cardio :33 Prothrombin Time w/INR Comments: [facility] Dtvgamfxtk8099 [address] [place], [address] ; handled by cardio INR 2.1 (Normal) PROTIME 24.0 s (Abnormal) Range: 11.7-14.9 19-Xxw-060571:02 Prothrombin Time w/INR Comments: [place] [address] [place], [address] INR 2.2 (Normal) PROTIME 24.1 s (Abnormal) Range: 11.7-14.9 15-Cyo-122523:37 Prothrombin Time w/INR Comments: [facility] [address] [place], [address] INR 2.5 (Normal) PROTIME 26.7 s (Abnormal) Range: 11.7-14.9 :44 Prothrombin Time w/INR Comments: [place] [address] [address] [place], [place], [address] INR 2.2 (Normal) PROTIME 24.6 s (Abnormal) Range: 11.7-14.9 84-Wjg-081376:15 Prothrombin Time w/INR Comments: [facility] Ictpeoqwez45[address] [place], [place], [address] INR 1.6 (Normal) PROTIME 19.4 s (Abnormal) Range: 11.7-14.9 :36 Prothrombin Time w/INR Comments: [facility] [address]kkxrrnbk6[address] [place], [place], [address] INR 1.2 (Normal) PROTIME 15.3 s (Abnormal) Range: 11.7-14.9 :02 Prothrombin Time w/INR Comments: [address] [place], [place], [address] INR 2.7 (Normal) PROTIME 29.0 s (Abnormal) Range: 11.7-14.9 :47 Lipid Profile Comments: [facility] [address]lbcq[address] [place], [place], [address] VLDL 20 mg/dL (Normal) Range: 5-40 LDL [...] mg/dL High Risk :47 Liver Profile Comments: [facility] Hztipfxnxj5936 [address] [place], [place], [address] D BILI 0.09 mg/dL (Normal) Range: 0.00-0.30 T BILI 0.40 mg/dL (Normal) Range: 0.20-1.00 ALT 26 U/L (Normal) Range: 12-78 ALK P 86 U/L (Normal) Range: 50-136 AST 24 U/L (Normal) Range: 15-37 GLOB 3.3 g/dL (Normal) Range: 2.3-3.5 ALB 4.0 g/dL (Normal) Range: 3.4-5.0 T PROT 7.3 g/dL (Normal) Range: 6.4-8.2 7-Jak-776193:11 CBC, Platelets & Auto Diff Comments: PATIENT NOT FASTINGPERFORMED BY: [facility] Znkksv1356 [facility] [id number] Information: [id number] (92779) Immature Grans (Abs) 0.0 {x10E3/uL} (Normal) Range: [...] 3.77-5.28 WBC 6.2 {x10E3/uL} (Normal) Range: 3.4-10.8 5-Xon-897819:11 CALCIFEDIOL (82396) Comments: PATIENT NOT FASTINGPERFORMED BY: iversityBaraga [facility] Hospital6370 [facility] [id number] Vitamin D, 25-Hydroxy 38.9 ng/mL (Normal) Range: 30.0-100.0 Comments: Vitamin D deficiency has been defined by the [place] of[place] State Health Systemcine and an Endocrine Society practice guideline as alevel of serum 25-OH vitamin D less than 20 ng/mL (1,2).The Endocrine Society went on to further define vitamin Dinsufficiency as a level between 21 and 29 ng/mL (2).1. IOM ([place] of Medicine). 2010. Dietary reference intakes for calcium and D. [place]: The National Academies Press.2. Roberto MF, Brody OCHOA, Maribell CADENA, et al. Evaluation, treatment, and prevention of vitamin D deficiency: an Endocrine Society clinical practice guideline. JCEM. 2010; 96(7):1911-30. 6-Gvt-431978:11 VITAMIN B12 AND FOLATES Comments: PATIENT NOT FASTINGPERFORMED BY: iversityBaraga [facility] Hospital6370 [facility] [id number] (93950) Folate (Folic Acid), Serum 10.4 ng/mL (Normal) Comments: A serum folate concentration of less than 3.1 ng/mL isconsidered to represent clinical deficiency. Vitamin B12 1651 pg/mL (Abnormal) Range: 211-946 5-Niv-812500:11 Metabolic Panel, Comprehensive Comments: PATIENT NOT FASTINGPERFORMED BY: [facility]ityBar[facility]6370 [facility] [id number] (75865) ALT (SGPT) 15 [iU]/L (Normal) Range: 0-32 [...] Range: 65-99 09-May-20159:53 Prothrombin Time w/INR Comments: [facility] [address]uj8626 [place], [address] INR 1.9 (Normal) PROTIME 22.0 s (Abnormal) Range: 11.7-14.9 13-Ocu-555701:40 Prothrombin Time w/INR Comments: Test performed at:[facility] Bsomevhxby8044 [facility] [place] [address] INR 1.3 (Normal) PROTIME 16.3 s (Abnormal) Range: 11.7-14.9 62-Gma-879139:03 Prothrombin Time w/INR Comments: Test performed at:[facility] Juecgzftfy4545 [facility] [place] [address] INR 1.7 (Normal) PROTIME 20.4 s (Abnormal) Range: 11.7-14.9 5-Hsu-936684:26 Prothrombin Time w/INR Comments: Test performed at:[facility] Enqkutvkjc4598 [facility] [place] [address] INR 1.2 (Normal) Comments: ADDENDA: managed by dr paz PROTIME 15.8 s (Abnormal) Range: 11.7-14.9 55-Evr-230315:28 Prothrombin Time w/INR Comments: Test performed at:[facility] [address] [place] [id number] INR 1.2 (Normal) PROTIME 15.8 s (Abnormal) Range: 11.7-14.9 :54 Prothrombin Time w/INR Comments: Test performed at:[facility] [address] [place] [address] INR 2.5 (Normal) PROTIME 27.3 s (Abnormal) Range: 11.7-14.9 9-Jhc-216099:16 Prothrombin Time w/INR Comments: Test performed at:[facility] [address] [place] [address] INR 2.0 (Normal) PROTIME 23.2 s (Abnormal) Range: 11.7-14.9 63-Ypt-100707:29 Prothrombin Time w/INR Comments: Test performed at:[facility] [address] [place] [address] INR 2.8 (Normal) PROTIME 29.3 s (Abnormal) Range: 11.7-14.9 92-Cej-139557:06 Prothrombin Time w/INR Comments: Test performed at:[facility] [address] [place] [address] ; Dr Bella manages INR 2.1 (Normal) PROTIME 24.0 s (Abnormal) Range: 11.7-14.9 :45 Prothrombin Time w/INR Comments: Test performed at:[facility] [address] [place] [address] ; ordered by another INR 1.3 (Normal) PROTIME 16.5 s (Abnormal) Range: 11.7-14.9 :00 Prothrombin Time w/INR Comments: Test performed at:[facility] [address] [place], [place] [address] INR 0.9 (Normal) PROTIME 12.7 s (Normal) Range: 11.7-14.9 :05 Vitamin B12 and Folate Comments: PATIENT NOT FASTINGPERFORMED BY: LabCoRobert [facility] Johnson [facility] Hospital at HamiltonCtauri8980 [facility] [id number] Information: [id number] Folate (Folic Acid), 7.8 ng/mL (Normal) Comments: A serum folate concentration of less than 3.1 ng/mL isconsidered to represent clinical deficiency. Serum Vitamin B12 1883 pg/mL Range: 211-946 (Abnormal) : Vitamin D, 42.8 ng/mL (Normal) Comments: PATIENT NOT FASTINGPERFORMED BY: [facility]Bar[facility] [facility] [id number] 05 25-Hydroxy Range: 30.0-100.0 Comments: Vitamin D deficiency has been defined by the [place] [employer] and an Endocrine Society practice guideline as alevel of serum 25-OH vitamin D less than 20 ng/mL (1,2).The Endocrine Society went on to further define vitamin Dinsufficiency as a level between 21 and 29 ng/mL (2).1. IOM ([place] [employer]). 2010. Dietary reference intakes for calcium and D. [place]: The National Academies Press.2. Roberto MF, Brody [place], Maribell CADENA, et al. Evaluation, treatment, and prevention of vitamin D deficiency: an Endocrine Society clinical practice guideline. JCEM. 2010; 96(7):1911-30. [id number] CBC W/Diff, Automated Comments: Test performed at:[facility] [address] [place], [place] [id number] Absolute Lymph 2.41 {X10_3/ul} (Normal) Range: 0.83-4.51 [...] 4.2-5.4 WBC 6.5 K/mm3 (Normal) Range: 4.4-11.0 [id number] Basic Metabolic Profile (BMP) Comments: Test performed at:[facility] [address] [place] [address] [id number] GAP 4 (Abnormal) Range: 5-15 CO2 33.0 mmol/L (Abnormal) Range: 21.0-32.0 CL 103 mmol/L (Normal) Range: 98-107 K 4.8 mmol/L (Normal) Range: 3.5-5.1 NA 140 mmol/L (Normal) Range: 136-145 CA 8.8 mg/dL (Normal) Range: 8.5-10.1 BUN/CRE 25.8 {RATIO} (Abnormal) Range: 10-20 CREAT,SERUM 1.2 mg/dL (Abnormal) Range: 0.6-1.0 BUN 31 mg/dL (Abnormal) Range: 7-18 GLU 108 mg/dL (Normal) Range: 70-110 [id number] Basic Metabolic Profile (BMP) Comments: Test performed at:[facility] [address] [place] [address] GAP 4 (Abnormal) Range: 5-15 CO2 28.0 mmol/L (Normal) Range: 21.0-32.0 CL 106 mmol/L (Normal) Range: 98-107 K 4.3 mmol/L (Normal) Range: 3.5-5.1 NA 138 mmol/L (Normal) Range: 136-145 CA 8.8 mg/dL (Normal) Range: 8.5-10.1 BUN/CRE 26.0 {RATIO} (Abnormal) Range: 10-20 CREAT,SERUM 1.0 mg/dL (Normal) Range: 0.6-1.0 BUN 26 mg/dL (Abnormal) Range: 7-18 GLU 93 mg/dL (Normal) Range: 70-110 59-Hvn-534264:45 CBC W/Diff, Automated Comments: Test performed at:[facility] [address] [place] [address] Absolute Lymph 2.60 {X10_3/ul} (Normal) [...] 4.2-5.4 WBC 6.5 K/mm3 (Normal) Range: 4.4-11.0 02-Iev-022216:07 Lipid Profile Comments: Specimen slightly hemolyzed. Results may be affected.Test performed at:[facility] [address] [place] [address] VLDL 19 mg/dL (Normal) Range: 5-40 LDL [...] 200-240 mg/dL Borderline >240 mg/dL High Risk 90-Nlk-124510:07 Liver Profile Comments: Specimen slightly hemolyzed. Results may be affected.Test performed at:[facility] [address] [facility] [place], [place] [address] D BILI < 0.05 mg/dL (Normal) Range: [...] CHOL 226 mg/dL (Abnormal) Comments: <200 mg/dL Bkbcgdbow312-829 mg/dL Borderline>240 mg/dL High Risk :47 LIVER [...] :47 TSH 3.05 {uIU/mL} (Normal) Range: 0.358-3.74 43-Vfh-494670:00 LORNA CULTURE-OTHER (13944) Comments: PATIENT NOT FASTINGPERFORMED BY: [facility] [facility] [id number] Information: SRC:THRT [id number] Result 1 RRF (Normal) Comments: Routine respiratory jesus Upper Respiratory Culture Final report (Normal) 82-Qns-13736:21 Rapid Strep Test, Office (77563) Rapid Strep Test, Office Negative (Normal) 31-Bgh-06546:00 BILAT SCRN DIGITAL & CAD Radiology Report [...] Jones M.D.January 04, 2013 at 10:41:52 AM [id number] Signed GP/GP If you are the referring physician and would like to consult with theradiologist who provided this interpretation, please contact Ne Huang at [phone]. If this radiologist is unavailable, youwill be directed to another radiologist to assist. If you are a patient with a question regarding this report, pleasecontactyour referring physician directly. Professional Interpretation Provided By: [employer], Phone , These documents contain legally protected [...] on 01/04/131040 by Cher Jones MDribed on 01/04/13 1042 by ITS IMPORTSign by Henry Jones MD on 01/04/13 1044 Sign by: Henry Jones MD :19 Hepatic Function Panel Comments: PATIENT WAS FASTINGPERFORMED BY: [facility] [facility] [id number] Information: [id number] (7) ALT (SGPT) 23 [iU]/L (Normal) Range: 0-32 AST (SGOT) 21 [iU]/L (Normal) Range: 0-40 Alkaline Phosphatase, S 74 [iU]/L (Normal) Range: 25-165 Bilirubin, Direct 0.10 mg/dL Range: 0.00-0.40 (Normal) Albumin, Serum 4.3 g/dL (Normal) Range: 3.5-4.8 Bilirubin, Total 0.3 mg/dL (Normal) Range: 0.0-1.2 Protein, Total, Serum 6.7 g/dL (Normal) Range: 6.0-8.5 Written Authorization WAR (Normal) Comments: PATIENT WAS FASTINGPERFORMED BY: [facility] [facility] [id number] :19 Comments: Written Authorization Received.Authorization received from DR BRO [id number] by Rachelle Porter :19 Metabolic Panel, Comprehensive Comments: PATIENT WAS FASTINGPERFORMED BY: [facility] [facility] [id number] (88827) ALT (SGPT) 22 [iU]/L (Normal) Range: 0-32 [...] Glucose, Serum 89 mg/dL (Normal) Range: 65-99 3-Nmw-348315:19 CBC with manual diff Comments: PATIENT WAS FASTINGPERFORMED BY: [facility]CoRobert [facility] at HamiltonWpyucr3988 [facility] [id number] Information: [id number] (43413) Immature Grans (Abs) 0.0 {x10E3/uL} (Normal) Range: [...] 3.77-5.28 WBC 4.6 {x10E3/uL} (Normal) Range: 4.0-10.5 6-Lju-312506:19 Lipid Panel (12259) Comments: PATIENT WAS FASTINGPERFORMED BY: [facility] [id number] LDL/HDL Ratio 1.3 {ratio_units} (Normal) Range: 0.0-3.2 Cholesterol, Total 153 mg/dL (Normal) Range: 100-199 HDL Cholesterol 60 mg/dL (Normal) Comments: According to ATP-III Guidelines, HDL-C >59 mg/dL is considered anegative risk factor for CHD. LDL Cholesterol Calc 80 mg/dL (Normal) Range: 0-99 Triglycerides 65 mg/dL (Normal) Range: 0-149 VLDL Cholesterol Hector 13 mg/dL (Normal) Range: 5-40 2-Ntx-905612:19 TSH (07503) Comments: PATIENT WAS FASTINGPERFORMED BY: [facility] [id number] TSH 2.650 {uIU/mL} (Normal) Range: 0.450-4.500 56-Bch-683996:14 Urinalysis, Office (25743) UA - BILIRUBIN Negative (Normal) UA - BLOOD Hemolyzed Small (Normal) UA - GLUCOSE Negative (Normal) UA - KETONES Negative mg/dL (Normal) UA - LEUKOCYTE ESTERASE Negative (Normal) UA - NITRITE Negative (Normal) UA - PH 7.0 (Normal) UA - PROTEIN Negative mg/dL (Normal) UA - SPECIFIC GRAVITY 1.015 (Normal) URINE UROBILINGN REYNA TIMED Normal mg/dL (Normal) 19-Izm-596960:10 TSH (THYROID STIMULATING Comments: PATIENT WAS FASTINGPERFORMED BY: [facility] [id number] HORMONE) (81341) TSH 2.500 {uIU/mL} (Normal) Range: 0.450-4.500 63-Krb-076763:10 CALCIFEDIOL (43943) Comments: PATIENT WAS FASTINGPERFORMED BY: [facility] [facility] [id number] Vitamin D, 25-Hydroxy 48.1 ng/mL (Normal) Range: 30.0-100.0 Comments: Vitamin D deficiency has been defined by the [place] of[place]icine and an Endocrine Society practice guideline as alevel of serum 25-OH vitamin D less than 20 ng/mL (1,2).The Endocrine Society went on to further define vitamin Dinsufficiency as a level between 21 and 29 ng/mL (2).1. IOM ([place] of [employer]). 2010. Dietary reference intakes for calcium and D. [place]: The National Academies Press.2. Roberto MF, Brody [place], Maribell CADENA, et al. Evaluation, treatment, and prevention of vitamin D deficiency: an Endocrine Society clinical practice guideline. JCEM. 2010; 96(7):1911-30. 78-Eyt-156277:10 Lipid Panel (59630) Comments: PATIENT WAS FASTINGPERFORMED BY: [facility]Bar[facility] [id number] LDL/HDL Ratio 2.3 {ratio_units} (Normal) Range: 0.0-3.2 LDL Cholesterol Calc 117 mg/dL (Abnormal) Range: 0-99 VLDL Cholesterol Hector 16 mg/dL (Normal) Range: 5-40 HDL Cholesterol 52 mg/dL (Normal) Comments: According to ATP-III Guidelines, HDL-C >59 mg/dL is considered anegative risk factor for CHD. Triglycerides 78 mg/dL (Normal) Range: 0-149 Cholesterol, Total 185 mg/dL (Normal) Range: 100-199 78-Vav-362158:10 HEPATIC FUNCTION PANEL Comments: PATIENT WAS FASTINGPERFORMED BY: [facility] [facility] [id number] Information: [id number] (21578) ALT (SGPT) 21 [iU]/L (Normal) Range: 0-40 AST (SGOT) 20 [iU]/L (Normal) Range: 0-40 Alkaline Phosphatase, S 75 [iU]/L (Normal) Range: 25-165 Bilirubin, Direct 0.09 mg/dL (Normal) Range: 0.00-0.40 Albumin, Serum 4.0 g/dL (Normal) Range: 3.5-4.8 Bilirubin, Total 0.3 mg/dL (Normal) Range: 0.0-1.2 Protein, Total, Serum 6.5 g/dL (Normal) Range: 6.0-8.5 :41 TSH (44965) Comments: PATIENT NOT FASTINGPERFORMED BY: The Auto VaultPeak Behavioral Health ServicesTclupq[address] [place] [address] [id number] Information: [id number] TSH 3.750 {uIU/mL} (Normal) Range: 0.450-4.500 :39 Prothrombin Time (PT) Comments: PERFORMED BY: [employer] [id number] Prothrombin Time 39.0 {sec} (Abnormal) Range: 8.7-11.5 INR 3.6 (Abnormal) Range: 0.8-1.2 Comments: Client Requested Flag Reference interval is for non- anticoagulated patients. . Suggested INR therapeutic ra nge for Vitamin K antagonist therapy: Standard Dose (moderate intensity therapeutic range): 2.0 - 3.0 Higher intensity therapeutic range 2.5 - 3.5 :26 PT (PROTHROMBIN TIME) Comments: PATIENT NOT FASTINGPERFORMED BY: iversityEll[place] 2882270 [facility] [id number] Information: [id number] CC:[id number] (74763) Prothrombin Time 54.3 {sec} (Abnormal) Range: 8.7-11.5 [...] (Activated Partial Comments: PATIENT NOT FASTINGPERFORMED BY: [place] [address] [facility] [id number] Thromboplastin Time) (80187) aPTT 39 {sec} (Abnormal) Range: 24-33 Comments: This test has not been validated for monitoring unfractionated heparintherapy. aPTT-based therapeutic ranges for unfractionated heparintherapy have not been established. For general guidelines onHeparin monitoring, refer to the [facility] Directory of Services. :51 PT (Prothrobim Time) Comments: PATIENT NOT FASTINGPERFORMED BY: [place] [address] [facility] [id number] Information: [id number] CC:[id number] (83105) Prothrombin Time 26.1 {sec} (Abnormal) Range: 8.7-11.5 INR 2.4 (Abnormal) Range: 0.8-1.2 Comments: Reference interval is for non-anticoagulated patients. . Suggested INR therapeutic range for Vitamin K anta gonist therapy: Standard Dose (moderate intensity therapeutic range): 2.0 - 3.0 Higher intensity therapeutic range 2.5 - 3.5 :43 HEPATIC FUNCTION PANEL Comments: PATIENT NOT FASTINGPERFORMED BY: [facility] [facility] [id number] Information: [id number] (27862) ALT (SGPT) 25 [iU]/L (Normal) Range: 0-40 AST (SGOT) 19 [iU]/L (Normal) Range: 0-40 Alkaline Phosphatase, S 73 [iU]/L (Normal) Range: 25-165 Albumin, Serum 4.4 g/dL (Normal) Range: 3.5-4.8 Bilirubin, Direct 0.09 mg/dL (Normal) Range: 0.00-0.40 Bilirubin, Total 0.3 mg/dL (Normal) Range: 0.0-1.2 Protein, Total, Serum 6.4 g/dL (Normal) Range: 6.0-8.5 :18 Lipid Panel (84637) Comments: PATIENT NOT FASTINGPERFORMED BY: [facility]6[address] [facility] [id number] LDL/HDL Ratio 1.3 {ratio_units} (Normal) Range: 0.0-3.2 [...] FUNCTION PANEL Comments: PATIENT NOT FASTINGPERFORMED BY: [facility]6[address] [facility] [id number] Information: [id number] (71098) ALT (SGPT) 60 [iU]/L (Abnormal) Range: 0-40 Alkaline Phosphatase, S 66 [iU]/L (Normal) Range: 25-165 AST (SGOT) 43 [iU]/L (Abnormal) Range: 0-40 Albumin, Serum 4.3 g/dL (Normal) Range: 3.5-4.8 Bilirubin, Direct 0.10 mg/dL (Normal) Range: 0.00-0.40 Bilirubin, Total 0.3 mg/dL (Normal) Range: 0.0-1.2 Protein, Total, Serum 6.7 g/dL (Normal) Range: 6.0-8.5 :18 CALCIFEDIOL (34209) Comments: PATIENT NOT FASTINGPERFORMED BY: [facility]6[address] [facility] [id number] Vitamin D, 25-Hydroxy 57.3 ng/mL (Normal) Range: 32.0-100.0 Comments: Recent studies consider the lower limit of 32.0 ng/mL to be athreshold for optimal health.Baljit HOWELL. J Nutr. 2004;135(2):317-22. 7-Bkx-512893:49 Urinalysis, Office (70507) UA - BILIRUBIN Negative (Normal) UA - BLOOD Hemolyzed Moderate (Normal) UA - GLUCOSE Negative (Normal) UA - KETONES Negative mg/dL (Normal) UA - LEUKOCYTE ESTERASE Negative (Normal) UA - NITRITE Negative (Normal) UA - PH 7.5 (Normal) UA - PROTEIN Negative mg/dL (Normal) UA - SPECIFIC GRAVITY 1.015 (Normal) URINE UROBILINGN REYNA TIMED Normal mg/dL (Normal) 15-Dex-347579:38 Urinalysis, Office (62150) UA - BILIRUBIN Negative (Normal) UA - BLOOD Hemolyzed Small (Normal) UA - GLUCOSE Negative (Normal) UA - KETONES Negative mg/dL (Normal) UA - LEUKOCYTE ESTERASE Negative (Normal) UA - NITRITE Negative (Normal) UA - PH 7.5 (Normal) UA - PROTEIN Negative mg/dL (Normal) UA - SPECIFIC GRAVITY 1.015 (Normal) URINE UROBILINGN REYNA TIMED 2 mg/dL (Normal) 61-Doh-92761:47 Metabolic Panel, Basic Comments: PATIENT NOT FASTINGPERFORMED BY: LabCoRobert Wood Johnson [facility] Hospital at HamiltonNsxpuf8330 [facility] [id number] Information: [id number] (70944) Calcium, Serum 9.6 mg/dL (Normal) Range: 8.6-10.2 [...] CULTURE-REYNA COL Comments: PATIENT NOT FASTINGPERFORMED BY: beneSol70 CoursePeerUofL Health [facility] [id number] Information: SRC:UR [id number] COUNT (85499) Result 1 NG36 (Normal) Comments: No growth in 36 - 48 hours. Urine Culture,Comprehensive Final report (Normal) :29 Urinalysis, Office (20094) UA - BILIRUBIN Negative (Normal) UA - BLOOD Non Hemolyzed Moderate (Normal) UA - GLUCOSE Negative (Normal) UA - KETONES Negative mg/dL (Normal) UA - LEUKOCYTE ESTERASE Trace (Normal) UA - NITRITE Negative (Normal) UA - PH 6.0 (Normal) UA - PROTEIN Negative mg/dL (Normal) UA - SPECIFIC GRAVITY 1.020 (Normal) URINE UROBILINGN REYNA TIMED Normal mg/dL (Normal) 58-Yrf-663155:44 Microscopic Examination Comments: PATIENT WAS FASTINGPERFORMED BY: [employer]6370 PlaySayFormer[facility] [id number] Bacteria Few (Normal) Mucus Threads Present (Normal) Epithelial Cells (non renal) 0-10 {/hpf} (Normal) Range: 0 - 10 RBC 0-3 {/hpf} (Normal) Range: 0 - 3 WBC 0-5 {/hpf} (Normal) Range: 0 - 5 27-Ntx-735112:44 CALCIFIDIOL (93177) VIT D 25 Comments: PATIENT WAS FASTINGPERFORMED BY: [employer] Lxrgsq6405 [facility] [id number] Vitamin D, 25-Hydroxy 28.6 ng/mL (Abnormal) Range: 32.0-100.0 Comments: Recent studies consider the lower limit of 32.0 ng/mL to be athreshold for optimal health.Baljit HOWELL. J Nutr. 2004;135(2):317-22. 68-Tyi-424376:44 Folate (05470) Comments: PATIENT WAS FASTINGPERFORMED BY: [facility] [facility] [place] [id number] Folate (Folic Acid), Serum 12.2 ng/mL (Normal) Comments: Indeterminate: 2.2 - 3.0 Deficient: <2.2 38-Buc-766077:44 VITAMIN B-12 (CYANOCOBALAMIN) Comments: PATIENT WAS FASTINGPERFORMED BY: [facility]6[address] [facility] [id number] (28267) Vitamin B12 351 pg/mL (Normal) Range: 211-946 44-Ile-455189:44 SED RATE ERYTHROCYTE (21963) Comments: PATIENT WAS FASTINGPERFORMED BY: [facility] [facility] [id number] Sedimentation Rate-Westergren 2 mm/h (Normal) Range: 0-30 97-Zcm-937379:44 RHEUMATOID FACTOR-QUANT (41760) Comments: PATIENT WAS FASTINGPERFORMED BY: [facility] [facility] [place] [id number] RA Latex Turbid. 10.5 {IU/mL} (Normal) Range: 0.0-13.9 24-Wkw-199032:44 C-REACTIVE PROTEIN (45816) Comments: PATIENT WAS FASTINGPERFORMED BY: [facility] [facility] [id number] C-Reactive Protein, Quant 0.9 mg/L (Normal) Range: 0.0-4.9 52-Jcw-968542:44 JOANNA (ANTINUCLEAR ANTIBODY) Comments: PATIENT WAS FASTINGPERFORMED BY: [facility]6[address] [facility] [id number] (14121) JOANNA Direct Negative (Normal) 90-Euk-283068:44 LIPID PANEL (18662) Comments: PATIENT WAS FASTINGPERFORMED BY: [facility] [facility] [place] [id number] LDL Cholesterol Calc 140 mg/dL (Abnormal) Range: 0-99 LDL/HDL Ratio 1.8 {ratio_units} (Normal) Range: 0.0-3.2 HDL Cholesterol 77 mg/dL (Normal) Comments: According to ATP-III Guidelines, HDL-C >59 mg/dL is considered anegative risk factor for CHD. VLDL Cholesterol Hector 19 mg/dL (Normal) Range: 5-40 Triglycerides 97 mg/dL (Normal) Range: 0-149 Cholesterol, Total 236 mg/dL (Abnormal) Range: 100-199 :44 TSH (33785) Comments: PATIENT WAS FASTINGPERFORMED BY: The Auto VaultPeak Behavioral Health ServicesSicarh3028 [facility] [id number] TSH 1.670 {uIU/mL} (Normal) Range: 0.450-4.500 :44 URINALYSIS, W/ MICRO (53997) Comments: PATIENT WAS FASTINGPERFORMED BY: [facility]Bar[facility]6[address] [facility] [id number] Microscopic Examination See below: (Normal) Bilirubin Negative (Normal) Ketones Negative (Normal) Nitrite, Urine Negative (Normal) Occult Blood 1+ (Abnormal) Urobilinogen,Semi-Qn 0.2 mg/dL (Normal) Range: 0.0-1.9 Glucose Negative (Normal) Protein Negative (Normal) Appearance Clear (Normal) pH 7.0 (Normal) Range: 5.0-7.5 Urine-Color Yellow (Normal) WBC Esterase Negative (Normal) Specific [place] 1.016 (Normal) Range: 1.005-1.030 :44 MICROALBUMIN: CREATININE RATIO Comments: PATIENT WAS FASTINGPERFORMED BY: The Auto VaultRobert Wood Johnson [facility] Hospital at HamiltonOintgr3147 [facility] [id number] (04899) AND (73086) Microalb/Creat Ratio 2.8 {mg/g_creat} (Normal) Range: 0.0-30.0 Creatinine, Urine 61.0 mg/dL (Normal) Range: 15.0-278.0 Microalbumin, Urine 1.7 ug/mL (Normal) Range: 0.0-17.0 :44 METABOLIC PANEL, COMPREHENSIVE Comments: PATIENT WAS FASTINGPERFORMED BY: [facility] [id number] (06469) ALT (SGPT) 16 [iU]/L (Normal) Range: 0-40 [...] Glucose, Serum 92 mg/dL (Normal) Range: 65-99 70-Twt-174366:44 CBC WITH MANUAL DIFF Comments: PATIENT WAS FASTINGPERFORMED BY: LabCoRobert Wood Johnson University Hospital at HamiltonSuswpi4479 [facility] [id number] Information: [id number] (50670) Immature Grans (Abs) 0.0 {x10E3/uL} (Normal) Range: [...] 3.80-5.10 WBC 6.1 {x10E3/uL} (Normal) Range: 4.0-10.5 37-Nwt-862665:11 BILAT [facility] DIGITAL & CAD Radiology Report See Note (Normal) Comments: Exam Number: [id number] MAMMOGRAPHY - BILATERAL SCREENING INDICATION:Routine annual screening [...] of attaching a ResultCode to this exam.ADDENDUM: [id number] HPBI/MDS Reported By: ELEANOR ERNANDEZ M.D. 9-Gfa-010533:01 TSH (89269) Comments: PATIENT NOT FASTINGPERFORMED BY: [facility] Hdfkos4782 [facility] [id number] Information: [id number] TSH 0.474 {uIU/mL} (Normal) Range: 0.450-4.500 16-Apr-20108:21 Thin prep Pap (22409) Comments: of cuff, has had hysterectomy; Source.............VaginalLMP / Prev Treat...HystNo. of containers..01 CYTYC Thin Prep VialPATIENT NOT FASTINGPERFORMED BY: [facility] [address] [id number] Information: [id number] Note: PAPSMR (Normal) Comments: The Pap smear [...] hysterectomy.V72.31 ; Routine gynecological exami Davion Mosley [employer] (ASCP) 82-Yvc-577829:57 ABDOMEN/PELVIS W/WO CONTRAST Radiology Report See Note (Normal) Comments: Exam Number: [id number] CLINICAL:Hydronephrosis CT ABDOMEN AND PELVIS WITHOUT / [...] theright-sided hydronephrosis. Reported By: SAVANA AVELAR M.D. 0-Ouy-816751:44 Urinalysis, Office (25640) UA - LEUKOCYTE ESTERASE Negative (Normal) UA - NITRITE Negative (Normal) URINE UROBILINGN REYNA TIMED Normal mg/dL (Normal) UA - PROTEIN Negative mg/dL (Normal) UA - PH 6.5 (Normal) UA - BLOOD Hemolyzed Trace (Normal) UA - SPECIFIC GRAVITY 1.010 (Normal) UA - KETONES Negative mg/dL (Normal) UA - BILIRUBIN Negative (Normal) UA - GLUCOSE Negative (Normal) 71-Icv-726939:45 KIDNEY (HP) Radiology Report See Note (Normal) Comments: Exam Number: [id number] CLINICAL:The patient is a 69-year-old female who [...] no hydronephrosis Reported By: ELEANOR ERNANDEZ M.D. 53-Fib-059829:14 BMP BUN/CRE 17.8 {RATIO} (Normal) Range: 10-20 [...] (Normal) GLU 90 mg/dL (Normal) Range: 70-110 08-Faj-791195:52 Iron and TIBC Comments: PATIENT NOT FASTINGPERFORMED BY: [employer] Xhhgiu6796 [facility] [id number] Iron Saturation 21 % (Normal) Range: 15-55 Iron, Serum 55 ug/dL (Normal) Range: 35-155 UIBC 202 ug/dL (Normal) Range: 150-375 Iron Bind.Cap.(TIBC) 257 ug/dL (Normal) Range: 250-450 65-Hbq-668725:52 Renal function Panel (50897) Comments: PATIENT NOT FASTINGPERFORMED BY: [employer] Kqyhra2503 [facility] [id number] Albumin, Serum 3.7 g/dL (Normal) Range: 3.5-4.8 [...] Glucose, Serum 91 mg/dL (Normal) Range: 65-99 79-Zrm-861448:52 Ferritin (39512) Comments: PATIENT NOT FASTINGPERFORMED BY: [facility] Hfydnp0783 [facility] [id number] Ferritin, Serum 338 ng/mL (Abnormal) Range: 13-150 :52 CBC with manual diff Comments: PATIENT NOT FASTINGPERFORMED BY: [place] 1856370 [facility] [id number] Information: [id number] (09988) Baso (Absolute) 0.0 {x10E3/uL} (Normal) Range: 0.0-0.2 [...] 3.80-5.10 WBC 7.9 {x10E3/uL} (Normal) Range: 4.0-10.5 72-Vkv-867227:20 TSH (55695) Comments: PATIENT NOT FASTINGPERFORMED BY: [facility]6[address] [facility] [id number] TSH 0.830 {uIU/mL} (Normal) Range: 0.450-4.500 98-Xvl-841071:20 CBC with manual diff Comments: PATIENT NOT FASTINGPERFORMED BY: LabCoMary Ville 9185870 [facility] [id number] Information: [id number] (29110) Hematology Comments: Note: (Normal) Comments: Verified by [...] 3.80-5.10 WBC 21.6 {x10E3/uL} (Abnormal) Range: 4.0-10.5 43-Bee-058942:58 Serum Protein Comments: PATIENT NOT FASTINGPERFORMED BY: LabCoRobert Wood Johnson University Hospital at HamiltonScbmye1233 [facility] [id number] Information: ADD [id number] NO DRAW FEE Electrophoresis (SPEP) (90054) A/G Ratio 1.6 (Normal) Range: 0.7-2.0 Please note: SPRCS (Normal) Comments: Protein electrophoresis scan will follow via computer, mail, orcourier delivery. Konqk-4-Hxeykipy 0.2 g/dL (Normal) Range: 0.1-0.4 Hbxna-7-Jfxrusjg 0.6 g/dL (Normal) Range: 0.4-1.2 Beta Globulin 0.9 g/dL (Normal) Range: 0.6-1.3 Gamma Globulin 0.9 g/dL (Normal) Range: 0.5-1.6 Globulin, Total 2.6 g/dL (Normal) Range: 2.0-4.5 M-Slim Not Observed g/dL (Normal) Albumin 4.2 g/dL (Normal) Range: 3.2-5.6 Protein, Total, Serum 6.8 g/dL (Normal) Range: 6.0-8.5 03-Orw-006045:58 VITAMIN B-12 (CYANOCOBALAMIN) Comments: PATIENT NOT FASTINGPERFORMED BY: [employer] Spoqeu5902 [facility] [id number] (98047) Vitamin B12 300 pg/mL (Normal) Range: 211-911 10-Wtp-848546:58 SED RATE ERYTHROCYTE (34717) Comments: PATIENT NOT FASTINGPERFORMED BY: Anok[facility] SAPeak Behavioral Health ServicesHdxbww8001 [facility] [id number] Sedimentation Rate-Westergren 2 mm/h (Normal) Range: 0-30 42-Uld-771573:20 CBC With Differential/Platelet Comments: PATIENT WAS FASTINGPERFORMED BY: [employer] Awvzxh9272 [facility] [id number] Baso (Absolute) 0.1 {x10E3/uL} (Normal) Range: 0.0-0.2 [...] 3.80-5.10 WBC 5.4 {x10E3/uL} (Normal) Range: 4.0-10.5 46-Mqp-851407:20 Comp. Metabolic Panel (14) Comments: PATIENT WAS FASTINGPERFORMED BY: LabCoRobert Wood Johnson University Hospital at HamiltonWbfozo2081 [facility] [id number] ALT (SGPT) 19 [iU]/L (Normal) Range: 0-40 [...] With LDL/HDL Comments: PATIENT WAS FASTINGPERFORMED BY: beneSol70 [facility]SayFormerly [facility] [id number] Ratio HDL Cholesterol 66 mg/dL (Normal) Comments: [...] 1.050 {uIU/mL} Comments: PATIENT WAS FASTINGPERFORMED BY: beneSol70 [facility] [id number] :20 (Normal) Range: 0.450-4.500 :50 CBCD,SMEAR DIFF [...] 47-70 WBC 6.7 K/mm3 (Normal) Range: 4.4-11.0 51-Sdw-90567:50 COMP METABOLIC A/G 1.1 {RATIO} (Normal) Range: [...] Report See Note (Normal) Comments: Exam Number: [id number] MAMMOGRAM, BILATERAL SCREENING DIGITAL AND CAD HISTORYRoutine [...] mammograms werealso examined with computer-aided detection software ([employer], [employer], [employer].). Reported By: ELEANOR ERNANDEZ M.D. :28 CBCD,SMEAR [...] 47-70 WBC 5.4 K/mm3 (Normal) Range: 4.4-11.0 46-Zzk-76705:28 COMP METABOLIC A/G 1.2 {RATIO} (Normal) Range: [...] :28 TSH 0.38 {uIU/mL} (Normal) Range: 0.34-4.82 [id number]-[id number]:04 Rapid Strep Test, Office ([id number]) Rapid Strep Test, Office Negative (Normal) [id number]:34 BILAT SCRN DIGITAL & CAD Radiology Report See Note (Normal) Comments: Exam Number: [id number] MAMMOGRAM, BILATERAL SCREENING DIGITAL AND CAD HISTORYRoutine [...] mammograms werealso examined with computer-aided detection software ([employer], [employer] Reported By: ELEANOR ERNANDEZ M.D. [id number] DEXA BONE DENSITY STUDY () Radiology Report See Note (Normal) Comments: Exam Number: [id number] BONE DENSITOMETRY HISTORYPostmenopausal. TECHNIQUE Bone densitometry of [...] withinnormal limits. Reported By: ELEANOR ERNANDEZ M.D. 28-Mmz-215811:39 COMP METABOLIC A/G 1.1 {RATIO} (Normal) Range: [...] : Follow up in 3 months with [facility] Indication: Hypertensive heart disease Hematuria, unspecified : [...] Gen Med in Sep 2010 make apt [facility] per pt request Indication: Hydronephrosis Hydronephrosis : Follow up for well woman with [facility] per pt request Indication: Hydronephrosis Anemia : FOLLOW UP IN 2 WEEKS January 07 by [facility] Indication: Anemia Abdominal pain, acute, generalized : FOLLOW UP IN 1 WEEK with [facility] Indication: Abdominal pain, acute, generalized Diarrhea : [...] Indication: Bronchitis Planned Observations Metabolic Panel, Comprehensive ([id number])Indication: Hypercholesterolemia On: 5-Rsp-407430:52 Request Comments: Jun 2018 LIPID PANEL (10948)Indication: Hypercholesterolemia On: 4-Kfa-638986:51 Request Comments: Jun 2018 URINALYSIS ([id number])Indication: Hypertension, essential, benign On: 25-Axp-004275:52 Request MICROALBUMIN: CREATININE RATIO (43614) AND (06509)Indication: Hypertension, essential, benign On: 98-Sfe-686300:52 Request Metabolic Panel, Comprehensive ([id number])Indication: Hypertension, essential, benign On: 19-Bqg-213920:50 Request Comments: send to [facility] CBC, Platelets & Auto Diff (78963)Indication: Hypertension, essential, benign On: 79-Rbv-032857:50 Request Comments: send to [facility] TSH (99746)Indication: Hypothyroidism On: 55-Gsx-883278:50 Request Comments: send to [facility] LIPID PANEL (56678)Indication: Hypercholesterolemia On: 33-Fga-348550:50 Request Comments: send to [facility] URINALYSIS (58189)Indication: Hypertension, essential, benign On: 2-Lti-736809:03 Request Comments: today MICROALBUMIN: CREATININE RATIO (90625) AND (54827)Indication: Hypertension, essential, benign On: 3-Lqu-088824:03 Request Comments: today TSH (59484)Indication: Hypothyroidism On: 0-Nyk-126475:03 Request Comments: Jul 2017 MICROALBUMIN: CREATININE RATIO (90921) AND (62085)Indication: Hypertension, essential, benign On: 43-Ild-319847:51 Request Comments: Mar 2017 URINALYSIS ([id number])Indication: Hypertension, essential, benign On: 82-Gta-000802:51 Request Comments: Mar 2017 TSH (27034)Indication: Hypertension, essential, benign On: 66-Hkg-194947:51 Request Comments: Mar 2017 CBC, Platelets & Auto Diff (96862)Indication: Hypertension, essential, benign On: 91-Ekd-152562:51 Request Comments: Mar 2017 Metabolic Panel, Comprehensive ([id number])Indication: Hypertension, essential, benign On: 27-Bfz-683396:51 Request TSH (THYROID STIMULATING HORMONE) (93692)Indication: Hypothyroidism On: 16-Cmm-626967:53 Request HEPATIC FUNCTION PANEL (45604)Indication: Hypertension, essential, benign On: 88-Bvn-565452:47 Request VITAMIN B12 AND FOLATES (82817)Indication: Vitamin B 12 deficiency On: 6-Vcp-384171:52 Request CALCIFEDIOL ([id number])Indication: DEFICIENCY, VITAMIN D NOS On: 2-Pml-007061:52 Request Urinalysis, Office (22377)Indication: Hematuria, unspecified On: 15-Cdv-043076:35 Request MICROALBUMIN URINE QUANT (51682)Indication: Hypertensive heart disease On: 19-Wql-741205:25 Request FECAL OCCULT HGB ASSAY- tubes sent home (26859)Indication: Well woman exam On: 9-Mhw-279752:51 Request OCCULT BLOOD FECES SCREEN- card done in office (02596)Indication: Well woman exam On: 9-Cga-619332:51 Request Renal function Panel (70925)Indication: Hydronephrosis On: 7-Nxm-346353:22 Request Iron (22707)Indication: Anemia On: 01-Qfo-437586:39 Request Iron Binding Capacity (TIBC) (79743)Indication: Anemia On: 27-Vwb-301226:39 Request OVA & PARASITE DIR SMEAR (59514)Indication: Diarrhea On: 20-Vxu-796409:50 Request OCCULT BLOOD FECES SCREEN (02045)Indication: Diarrhea On: 87-Mwn-691950:50 Request LEUKOCYTE COUNT, FECAL ([id number])Indication: Diarrhea On: 68-Axz-385581:50 Request C-DIFFICILE, STOOL (78053)Indication: Diarrhea On: 23-Jam-041003:50 Request LORNA CULTURE-STOOL ([id number])Indication: Diarrhea On: 41-Nwm-557592:50 Request HEPATIC FUNCTION PANEL (37135)Indication: Hypercholesterolemia On: 37-Qbz-722507:46 Request Lipid Panel (34077)Indication: Hypercholesterolemia On: 96-Ahz-319260:46 Request Comments: in three months (approximately) TSH (05716)Indication: Hypothyroidism On: 09-Vtw-703993:06 Request METABOLIC PANEL, COMPREHENSIVE (17860)Indication: Hypertensive heart disease On: 55-Ksy-360702:06 Request LIPID PANEL (80564)Indication: Hypertensive heart disease On: 59-Yog-074495:06 Request CBC WITH MANUAL DIFF ([id number])Indication: Hypertensive heart disease On: 56-Qlt-960252:06 Request LORNA CULTURE-OTHER (72614)Indication: Pharyngitis, acute On: 9-Jdm-684091:04 Request CBC (Auto) (62025)Indication: Hypercholesterolemia On: 39-Kie-61796:13 Request Lipid Panel (43811)Indication: Hypercholesterolemia On: :13 Request Metabolic Panel, Comprehensive (40097)Indication: Hypercholesterolemia On: 32-Byn-94039:13 Request Comments: in six months (approximately) TSH (49953)Indication: Hypothyroidism On: 18-Nrr-742197:06 Request LIPID PANEL ([id number])Indication: Hypertension On: 78-Nam-813444:01 Request Planned Encounters Medical; 3 Month FU - On: 14-Jun-2018 10:45 [facility] Sarai Bro CNP, CNP, Mary E Planned Procedures Flu Vaccine (Quadrivalent) On: 02-Jun-2018 Intent 97382Uj: Sarai Bro CNP Comments: Lot #[id number]/30/2019Site-L dltd, IMDose prefilled syringegiven by: SHARONDA CHOINVIS reviewed and ABN signed Sarai Bro CNP MAMMOGRAM BREAST BILATERAL On: 27-May-2018 Intent SCREENING DIGITAL ([id number])By: Sarai Bro CNP, CNP, Mary E Radiology - Femur - RightBy: On: 02-Mar-2018 Intent Sarai Bro CNP, CNP, Mary E DEXA SCAN AXIAL SKELETON On: 19-Oct-2017 Intent ([id number])By: Sarai Bro CNP, CNP, Mary E Aerosol Treatment (08747)By: On: 07-Sep-2017 Intent Kelly Naqvi Comments: Lungs clear after aerosol treatment Flu Vaccine (Quadrivalent) On: 13-Apr-2017 Intent 03753Jx: Giselle Silva LPN Comments: InfluenzaLot #[id number]/18/18Site-L dltd, IMDose prefilled syringeVIS and ABN signedgiven by:ROSA MARIA cade MAMMOGRAM BREAST BILATERAL On: 05-Jan-2017 Intent SCREENING DIGITAL (01970)By: Comments: after Apr 24 2017 Sarai Bro CNP, CNP, Mary E DEXA SCAN AXIAL SKELETON On: 05-Jan-2017 Intent (38263)By: Sarai Bro CNP Comments: After Apr 24 2017 Sarai Bro CNP Flu Vaccine (Quadrivalent) On: 06-Jul-2016 Intent 57658Gy: Giselle Silva LPN Comments: InfluenzaLot #Lot [id number]/30/17Site-L dltd, IMDose prefilled syringeVIS and ABN signedgiven by:ROSA MARIA cade MAMMOGRAM, SCREENING, BOTH On: 31-Mar-2016 Intent BREAST (49091)By: Sarai Bro CNP, CNP, Mary E MAMMOGRAM, SCREENING, BOTH On: 17-Feb-2016 Intent BREAST (49576)By: Sarai Bro CNP, CNP, Mary E PHYSICAL THERAPY EVALUATION On: 28-Jan-2016 Intent (31874)By: Sarai Bro CNP, CNP, Mary E PHYSICAL THERAPY EVALUATION On: 28-Jan-2016 Intent ([id number])By: Sarai Bro CNP, CNP, Mary E Toradol Injection, 30 mg On: 28-Jan-2016 Intent ([id number])By: Roccoyin CARNEYSarai CNP, Mary E Radiology - Lumbar SpineBy: On: 28-Jan-2016 Intent Sarai Bro CNP, CNP, Mary E Radiology - Knee - LeftBy: On: 28-Jan-2016 Intent Sarai Bro CNP, CNP, Mary E Aerosol Treatment (75908)By: On: 24-Dec-2015 Intent Sarai Bro CNP, CNP, Mary E Flu Vaccine (Quadrivalent) On: 10-May-2015 Intent 20770Iu: Hang ANGELIKA Sarai Moon Comments: Lot:[id number]:02/06/16Dose:0.5mLRoute:IMSite:L DltdGiven By:Kacie signed Hang ANGELIKA Sarai Moon DEXA SCAN AXIAL SKELETON On: 19-Mar-2015 Intent (69458)By: Hang CARNEY Sarai Busby CNP MAMMOGRAM, SCREENING, BOTH On: 11-Feb-2015 Intent BREAST ([id number])By: Hang ANGELIKASarai CNP, Mary E DEXA SCAN AXIAL SKELETON On: 11-Feb-2015 Intent (14699)By: Roccoyin CARNEYSarai CNP, Mary E Solu -Medrol Injection, 125 On: 25-Jul-2014 Intent mg (J2930)By: Hang CARNEY, Comments: [id number] 5.17right gm125 mgas, [employer] Sarai Busby CNP Aerosol Treatment (68648)By: On: 25-Jul-2014 Intent Sarai Bro CNP, CNP, Mary E Toradol Injection, 30 mg On: 18-Jul-2014 Intent ([id number])By: Roccoyin CARNEYSarai CNP, Mary E Radiology - Lumbar SpineBy: On: 18-Jul-2014 Intent Sarai Bro CNP, CNP, Mary E Radiology - Hip - RightBy: On: 18-Jul-2014 Intent Sarai Bro CNP, CNP, Mary E Prevnar 13 (72896)By: Ricardo On: 16-Jul-2014 Intent Giselle CRANE Comments: [id number] arm, IMAS Bone Density StudyBy: Hang On: 15-May-2014 Intent Sarai CARNEY CNP, Mary E ADMINISTRATION OF INFLUENZA On: 15-May-2014 Intent VIRUS VACCINE (G0008)By: Tiffaniewojciechyin CARNEY Sarai Bro CNP Sarai Moon FLU VAC, SPLIT, >3 YEARS, On: 15-May-2014 Intent INTRAMUSC (54356)By: Hang Comments: Lot:[id number]/24Dose:0.5mLRoute:IMSite:L DltdGiven By:FIDENCIO signed Sarai CARNEY CNP Sarai Moon SPECIMEN HNDLNG/TRNSPRT, OFFC On: 22-Mar-2014 Intent > LAB (97024)By: Hang CARNEY Sarai Bro CNP Sarai Moon BILATERAL MAMMOGRAMS On: 18-Dec-2013 Intent ([id number])By: Hang CARNEY Sarai Bro ANGELIKA Sarai Moon Aerosol Treatment (88362)By: On: 22-Sep-2013 Intent Roccoyin CARNEY Sarai Bro CNP Sarai Moon Wax CurettesBy: Roccoyin ANGELIKA, On: 22-Sep-2013 Intent Sarai Busby CNP Ear Irrigation (05336)By: On: 22-Sep-2013 Intent Sarai Bro CNP, CNP, Mary E Eprescribed prescriptions On: 18-Aug-2013 Intent (G8553)By: Lucrecia Vargas Eprescribed prescriptions On: 05-May-2013 Intent (G8553)By: Hang CARNEY Sarai Bro CNP Sarai Moon ADMINISTRATION OF INFLUENZA On: 05-May-2013 Intent VIRUS VACCINE (G0008)By: Comments: lot # [id number]- 6.2014site- L dltdroute-IMdose- 0.5mlRICHARD and ROMEL signedPenny Hauser LPN, LPN FLU VAC, SPLIT, >3 YEARS, On: 05-May-2013 Intent INTRAMUSC (33604)By: Penny Irving LPN MAMMOGRAM, SCREENING, BOTH On: 16-Dec-2012 Intent BREASTS (38006)By: Hang CARNEY Sarai Moon Ciesyin CARNEY Rianna Spirometry (18503)By: Aristides On: 16-Dec-2012 Intent Penny CRANE Comments: mild airway obstruction Aerosol Treatment (93199)By: On: 30-Mar-2012 Intent Hang CARNEY RiannaRed Bro CNP Rianna PFT - CompleteBy: Hang CARNEY, On: 01-Mar-2012 Intent Rianna Ciwojciechyin CARNEY Rianna Inhaler Demonstration On: 28-Dec-2011 Intent (06127)By: Hang CARNEY RiannaRed Bro CNP Rianna Pulse Oximetry (23441)By: On: 28-Dec-2011 Intent Tiffaniewojciechyin CARNEY Sarai Moon Tiffaniebonita ANGELIKA Rianna Eprescribed prescriptions On: 22-Apr-2011 Intent (G8553)By: Hang CARNEY RiannaRed Bro CNP Rinana Eprescribed prescriptions On: 21-Oct-2010 Intent (G8553)By: Hang CARNEY Rianna Ciwojciechyin CARNEY Rianna Eprescribed prescriptions On: 21-Oct-2010 Intent (G8553)By: Hang CARNEY Rianna Ciwojciechyin CARNEY Rianna MAMMOGRAM, SCREENING, BOTH On: 15-Apr-2010 Intent BREASTS (15135)By: Hang CARNEY RiannaRed Bro CNP Rianna Ultrasound - RenalBy: Hang On: 23-Dec-2009 Intent ANGELIKA RiannaRed Bro CNP Rianna Comments: To be done on December 30 CT - Abdomen & Pelvis (IV On: 17-Dec-2009 Intent Contrast Needed)By: Hang CARNEY RiannaRed Bro CNP Rianna ADMINISTRATION OF INFLUENZA On: 22-May-2009 Intent VIRUS VACCINE (G0008)By: Karina Nina LPN FLU VAC, SPLIT, >3 YEARS, On: 22-May-2009 Intent INTRAMUSC (47683)By: Kelle Comments: Lot #[id number] deltoidgiven by:Karina PLAZA LPN Pulse Oximetry (71326)By: On: 25-Sep-2008 Intent PRESTON Thompson ADMINISTRATION OF INFLUENZA On: 13-Jun-2008 Intent VIRUS VACCINE (G0008)By: Comments: lot #[id number] exp- 01/15site-left delroute-imdose- 0.5 Penny Irving LPN FLU VAC, SPLIT, >3 YEARS, On: 13-Jun-2008 Intent INTRAMUSC (16823)By: Penny Irving LPN MAMMOGRAM, SCREENING, BOTH On: 28-May-2008 Intent BREASTS (33573)By: Susan Lee MD Bio Z (31166)By: Rosa CHRISTIANSEN, On: 28-Nov-2007 Intent Susan Sánchez SPECIMEN HNDLNG/TRNSPRT, OFFC On: 12-Oct-2007 Intent > LAB ([id number])By: Tyesha Ramos DO Bone Density StudyBy: Rosa On: 18-Feb-2007 Intent Susan CHRISTIANSEN Comments: ache in back MAMMOGRAM, SCREENING, BOTH On: 18-Feb-2007 Intent BREASTS ([id number])By: Susan Lee MD Bio Z (68543)By: Rosa CHRISTIANSEN, On: 20-Jul-2006 Intent Susan Sánchez Planned Medications INJECTION, KETOROLAC TROMETHAMINE, PER 15 MG Ordered: 18-Jul-2014 Pending Ciesa FILTRATION OPERATOR, Rianna Ciesa FILTRATION OPERATOR, Rianna INJECTION, KETOROLAC TROMETHAMINE, PER 15 MG Ordered: 28-Jan-2016 Pending Ciesa FILTRATION OPERATOR, Rianna Ciesa FILTRATION OPERATOR, Rianna INJECTION, METHYLPREDNISOLONE SODIUM SUCCINATE, UP TO 125 MG Ordered: 25-Jul-2014 Pending Ciesa FILTRATION OPERATOR, Rianna Ciesa FILTRATION OPERATOR, Rianna Instructions Name Dates Details Nonsmoker [...] The patient does have durable power of real estate attorney and living will. The patient has noticed nothing from the geriatic depression scale. Other providers contributing to the katty ent's care are tool liaison (Dr paz ), maintenance shop welder (Dr Vazquez ), urologist (Dr Pope ) [...]
--- OUTSIDE RECORDS SUMMARY | 2018-09-02 06:59 | XMS RPT_ITS | Continuity of Care Document ---
:1940 Author Organization [facility] Address [address] [facility] [address] [place] [address] Phone Care Team Providers Name Role Phone Tiffaniebonita ANGELIKA, Rianna Unavailable Amanda CHRISTIANSEN, Higinio Longoria Unavailable Turner CHRISTIANSEN, Nahun Plaza Unavailable [facility] BC, Eugenie Tovar Unavailable Rosa CHRISTIANSEN, Susan [...] Quantity: 180 {Tablet} Refills: 3 Ordered:05-Oct-2016 Hang CARENY, Sarai Ace CNP, Sarai Moon Start : [...] : 18-Aug-2013 End : 28-Aug-2013 Inactive DRISDOL, [id number] (Oral Capsule) 1 Capsule twice weekly for [...] for 0 days Refills: 0 Ordered:31-Mar-2010 Aristides PLACEMENT MANAGER, ChrissieInactive LEVSIN/SL, 0.125MG (Sublingual Tablet Sublingual) Tab [...] Quantity: 21 {Tablet} Refills: 0 Ordered:15-Nov-2017 Hang RECRUITER MANAGER, Sarai Malka RECRUITER MANAGER, Rianna Start : 15-Nov-2017 End : 22-Nov-2017 [...] Quantity: 60 {Capsule} Refills: 0 Ordered:10-May-2015 Slarb PLACEMENT MANAGERGiselle Benson Start : 22-Apr-2011 End : 10-May-2015 [...] Lower Extremity Result: Comments: See Note; NOTES: [facility] Cardiovascular Services [address] [place] [address] Venous Duplex US - Paulie Extrem 04/07/18 1000 MR#: [id number] Acct: [id number] Name: VALERIE CRAIN Rep #: [id number] : 1940 77 From: Higinio Patel MD [...] Date Higinio Patel MD CC: Sarai Bro PURIFICATION OPERATOR; Higinio Patel MD Date Dictated: 04/07/18 1000 Date Transcribed: 04/08/18 160 Manager Human Resources: Signed 02-Mar-2018 Femur Min 2 Views Result: Comments: See Note; NOTES: [facility] Imaging Services [address] [place] [address] Femur Min 2 Views MR#: [id number] Acct: [id number] Name: VALERIE CRAIN Rep #: [id number] : 1940 F 77 From: Christiano Croft MD PCP: Sarai Bro NP Status: REG CLI Study: Femur Min 2 Views Date of Exam: 03/02/18 Exam# [id number] Ordering Dr: Sarai Bro STUDY: X-RAY - [...] vice support , CC: Sarai Bro NP Manager Human Resources: Signed 10-Feb-2018 Echocardiogram Complete Result: Comments: See Note; NOTES: [facility] Cardiovascular Services [address] [place] [address] Echo Complete 02/10/18 1100 MR#: [id number] Acct: [id number] Name: VALERIE CRAIN Rep #: [id number] : 1940 77 From: Amilcar Paz MD Attending Dr: Jennifer Goodwin Status: REG CLI Ordering Dr: Jennifer Goodwin Date: 02/10/18 Location: [facility] Sex: F C Admitted: [facility] For Study: DYSPNEA Procedure This was [...] Date Amilcar Paz MD CC: Sarai Bro PURIFICATION OPERATOR; Jennifer Goodwin Date Dictated: 02/10/18 1100 Date Transcribed: 02/10/18 1241 Manager Human Resources: Signed 28-Jan-2018 Cardiology Visit Report Result: Comments: See Note; NOTES: [facility] [address] [place] [address] OFFICE VISIT Date of Service: 01/28/18 MR#: [id number] Acct: [id number] Name: VALERIE CRAIN Rep #: [id number] : 1940 Provider: Jennifer Goodwin Age/Sex: 77/F Location: [facility] Status: Signed HPI HPI Details: VALERIE CRAIN, [...] for her age. 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 She does have [...] valve disorder (Chronic) Paroxysmal atrial fibrillation (Chronic) senior care (current) use of anticoagulants (Chronic) Benign essential HTN (Chronic) Surgical History History of appendectomy (Resolved) H/O mitral valve repair (Chronic) Family History Father Decea sed, age 48 from [place] CAD (coronary artery disease) Sudden cardiac Myocardial [...] prior to saving. Follow Up 6 Months (CONTRACT LEAD) Coding Level of Care Code Off vis,est,l [...] Downtime Report Result: Comments: See Note; NOTES: [facility] Medical Records Department [address] [facility] [place] [address] Downtime Report MR#: [id number] Acct: [id number] Name: VALERIE CRAIN Rep #: [id number] : 1940 77 From: Anuj Webster PCP: Sarai Bro NP Status: REG RCR This patient was seen during an EMR downtime January 10, 2018 - January 17, 2018. This patient may have a combination of pa per and electronic documentation or all paper documentation. All documentation is viewable within the e-chart portion of [email or web address] for each patient visit. 09-Nov-2017 Dexa Bone Density Study Result: Comments: See Note; NOTES: [facility] Imaging Services [address] [place] [address] Dexa Bone Density Study MR#: [id number] Acct: [id number] Name: VALERIE CRAIN Rep #: [id number] : 1940 F 77 From: Henry Jones MD PCP: Sarai Bro NP Status: REG CLI Study: Dexa Bone Density Study Date of Exam: 11/09/17 Exam# [id number] Ordering Dr: Sarai Bro STUDY: DUAL E [...] Henry Jones MD at 13:40 EDT Tel [phone], Service support , CC: Sarai Bro NP Manager Human Resources: Signed 27-Jul-2017 Cardiology Visit Report Result: Comments: See Note; NOTES: [facility] 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 (Chronic) Benign essential HTN (Chronic) Dyslipidemia (Chronic) mitral maria m vuplasty (Chronic) Surgical History H/O mitral valve repair (Chronic) Family History Father , age 48 from [place] CAD (coronary artery disease) Sudden cardiac Myocardial [...] Signature: Date (if applicable) CC: Sarai Bro PURIFICATION OPERATOR 17-May-2017 SCREENING MAMM (CAD), BILAT Result: Comments: See Note; NOTES: [facility] Imaging Services [address] [place] [address] SCREENING MAMM (CAD), BILAT MR#: [id number] Acct: [id number] Name: SEAN CRAIN Rep #: [id number] : 1940 F 76 From: Henry Jones MD PCP: Sarai Bro Status: REG CLI Study: SCREENING MAMM (CAD), BILAT Date of Exam: 05/17/17 Exam# [id number] Ordering Dr: Sarai Bro MAMMOGRAPH Y - [...] delay biopsy of a clinically suspicious abnormality. [id number] Electronically Signed: Henry Jones MD at 10:21 EDT Tel [phone], Service support , CC: Sarai Bro Manager Human Resources: Signed 27-Feb-2017 Carotid Duplex Ultrasound Result: Comments: See Note; NOTES: [facility] Cardiovascular Services [address] [place] [address] Carotid Duplex Ultrasound 02/26/17 1046 MR#: [id number] Acct: [id number] Name: SEAN ABEBE Rep #: [id number] : 1940 76 From: Malcolm Hill MD Attending Dr: Jennifer Goodwin Status: REG CLI Ordering Dr: Jennifer Goodwin Date: 02/26/17 Location: [facility] Sex: F C Admitte d: [...] Dictated: 02/26/17 1046 Date Transcribed: 02/27/17 1103 Manager Human Resources: Signed 03-Sep-2016 Chest PA and Lateral Result: Comments: See Note; NOTES: [facility] Imaging Services [address] [place] [address] Verdana 4d Chest PA and Lateral MR#: [id number] Acct: [id number] Name: SEAN CRAIN Rep # : [id number] : 1940 F 76 From: Henry Jones MD PCP: Sarai Bro Status: REG CLI Study: Chest PA and Lateral Date of Exam: 09/03/16 Exam# [id number] Ordering Dr: Nahun Vazquez MD STUD Y: [...] Henry diop MD at 12:41 EST Tel [phone], Service support [phone], CC: Sarai Bro; Nahun Vazquez MD Manager Human Resources: Signed 28-Aug-2016 Echocardiogram Complete Result: Comments: See Note; NOTES: [facility] Cardiovascular Services [address] [place] [address] Echo Complete 08/28/16 1003 MR#: [id number] Acct: [id number] Name: SEAN CRAIN p #: [id number] : 1940 76 From: Amilcar Paz MD Attending Dr: Jackson CHRISTIANSEN,Amilcar Status: REG CLI Ordering Dr: Amilcar Paz MD Date: 08/28/16 Location: [facility] Sex: F C Admitted: Reason For Study: AT [facility] Procedure This was a 2D [...] Dictated: 08/28/16 1003 Date Transcribed: 08/28/16 1225 Manager Human Resources: Signed 24-Apr-2016 Bilat Scrn Digital AND CAD Result: Comments: See Note; NOTES: [facility] Imaging Services [address] [place] [address] Verdana 4d Bilat Scrn Digital AND CAD MR#: [id number] Acct: [id number] Name: BREANNSEAN Rep #: [id number] : 1940 F 75 From: Henry Jones MD PCP: Sarai Bro Status: REG CLI Study: Jero Edwards Digital AND CAD Date of Exam: 04/24/16 Exam# [id number] Ordering Dr: Sarai Bro MAMMOGRAPHY - BILATERAL [...] significant change since the prior study. ___ [facility]/Jero Edwards Digital AND CAD IMPRESSION: Stable bilateral screening mammogram. Yearly follow-up mammogram recommended. (A) ASSESSMENT CATEGORY: BIRADS Category 1: Negative. A letter regarding these results will be sent to the patient by the facility within 30 days. Approximately 10% of breast cancers are n ot detected by mammography. A normal mammogram should not delay biopsy of a clinically suspicious abnormality. [id number] Electronically Signed: Henry Jones MD at 10:58 EDT Tel [phone], Service support [phone], CC: Sarai Bro Manager Human Resources: Signed 04-Mar-2016 PT D/C Summary (1) Result: Comments: See Note; NOTES: [facility] [address] [place] [address] Fax REHABILITATION SE [facility] DISCHARGE SUMMARY MR#: [id number] Acct: [id number] Name: SEAN CRAIN Rep #: [id number] : 1940 75 From: Giselle NELSON Referring [...] please feel free to call me at [phone]. Thank you for the referral of this patie nt. Sincerely, Giselle Yan <Electronically signed by Giselle Yan MPT> 03/04/161916 CC: Sarai Bro Signed 04-Feb-2016 Inital Evaluation (1) - PT Result: Comments: See Note; NOTES: [facility] [address] [facility] [place] [address] Fax [facility]ABIL[facility]ATION [facility] INITIAL EVALUATION MR#: [id number] Acct: [id number] Name: SEAN CRAIN Rep #: [id number] : 1940 75 From: Giselle Yan MPT Referring Dr.: Sarai Bro Status: REG RCR Insurance: MEDICARE PART A B [facility] Patient's Visit Information SEAN CRAIN is a [...] to be FAXED BACK to us at [phone] for Medicare purposes . Please let me know if there are questions or concerns regarding this plan of care. Physician Signature: Date: <Electronical ly signed by Giselle Yan MPT> 02/04/16 1628 CC: Sarai Bro Signed For Medicare only, by signing this I certify the plan of care. Physicians Signature Date 28-Jan-2016 Knee 4 or More Views Result: Comments: See Note; NOTES: [facility] Imaging Services [address] [place] [address] Verdana 4d Knee 4 or More Views MR#: [id number] Acct: [id number] Name: SEAN DWYER Rep #: [id number] : 1940 F 75 From: Shreyas Beaver MD PCP: Sarai Bro Status: REG CLI Study: Knee 4 or More Views Date of Exam: 01/28/16 Exam# [id number] Ordering Dr: Sarai Bro STUDY: X-RAY - [...] MD at 19:39 EDT , Service support [phone], ORDER # : [id number] RAD/Knee 4 or More Views IMPRESSION: No acute abnormality. Mild degenerative changes. Electronically Signed: Shreyas Beaver MD at 19:39 EDT , Service sup port [phone], CC: Sarai Bro Manager Human Resources: Signed 28-Jan-2016 L/S Spine Min 4 Views Result: Comments: See Note; NOTES: [facility] Imaging Services [address] [place] [address] Verdana 4d L/S Spine Min 4 Views MR#: [id number] Acct: [id number] Name: SEAN BERRIOS Rep #: [id number] : 1940 F 75 From: Shreyas Beaver MD PCP: Sarai Bro Status: REG CLI Study: L/S Spine Min 4 Views Date of Exam: 01/28/16 Exam# [id number] Ordering Dr: Shital Bro STUDY: X-RAY - [...] MD at 19:40 EDT , Service support [phone], Fax RAD/L/S Spine Min 4 Views IMPRESSION: No acute abnormality. Mild to moderate degenerative changes. Electronically Signed: Shreyas Beaver MD at 19:40 EDT T el [phone], Service support [phone], CC: Sarai Bro Manager Human Resources: Signed 19-Mar-2015 Dexa Bone Density Study (HP) Result: Comments: See Note; NOTES: [facility] Imaging Services [address] [place] [address] Bone Density Report MR#: [id number] Acct: [id number] Name: SEAN CRAIN Rep #: [id number] : 1940 F 74 From: Henry Jones MD PCP: Sarai Bro Status: REG CLI Study: Dexa Bone Density Study (HP) Date of Exam: 03/19/15 Exam# [id number] Ordering Dr: Sarai Bro STUD Y: DUAL [...] Henry Jones MD at 14:35 EDT Tel [phone], Servic e support [phone], CC: Sarai Bro Manager Human Resources: Signed 12-Mar-2015 Bilat Scrn Digital AND CAD Result: Comments: See Note; NOTES: [facility] Imaging Services [address] [place] [address] Breast Imaging Report MR#: [id number] Acct: [id number] Name: SEAN CRAIN Rep #: [id number] : 1940 F 74 From: Henry Jones MD PCP: Sarai Bro Status: REG CLI Study: Bilat Scrn Digital AND CAD Date of Exam: 03/12/15 Exam# [id number] Ordering Dr: Sarai Bro MAMM OGRAPHY - [...] Jones MD 23/03/04 at 9:59 EDT Tel [phone], Service support [phone], CC: Sarai Bro Manager Human Resources: Signed 16-Jan-2015 Operative Report Result: Comments: See Note; NOTES: [facility] Medical Records Department [address] [place] [address] Operative Report MR#: [id number] Acct: [id number] Name: SEAN CRAIN Rep #: [id number] : 1940 74 From: Amilcar Paz MD [...] care. Amilcar Paz MD T: NTS JOB: [id number] 01/16/15 0901 <Electronically signed by Amilcar Paz MD&amp ;#62; Date Amilcar Paz MD CC: Sarai Bro; Amilcar Paz MD Date Dictated: 01/14/151318 Date Transcribed: 01/14/151318 Manager Human Resources: Signed 15-Jan-2015 Consultation Result: Comments: See Note; NOTES: [facility] Medical Records Department [address] [place] [address] Consultation MR#: [id number] Acct: [id number] Name: SEAN CRAIN Rep #: [id number] : 1940 74 From: Armando Guerra MD [...] C C: Amilcar Bro T: NTS JOB: [id number] 01/15/15 0643 <Electronically signed by Armando Guerra MD> Date Armando Guerra MD CC: Sarai Bro; Armando Guerra MD; Amilcar Paz MD Date Dictated: 01/14/151356 Date Transcribed: 01/14/151356 Manager Human Resources: Signed 07-Jan-2015 Chest PA and Lateral Result: Comments: See Note; NOTES: [facility] Imaging Services [address] [place] [address] Radiology Report MR#: [id number] Acct: [id number] Name: SEAN CRAIN Rep #: [id number] : 1940 F 74 From: Henry Jones MD PCP: Sarai Bro Status: PRE CLI Study: Chest PA and Lateral Date of Exam: 01/07/15 Exam# [id number] Ordering Dr: Amilcar Paz MD STUDY: X-RA [...] Henry Jones MD at 14:28 EDT Tel [phone], Service support [phone], RAD/Chest PA and Lateral IMPRESSION: Hyperinflation. No acute abnormality is seen. Electronically Signed: Henry Jones MD 2014 at 14:28 EDT Tel [phone], Service support [phone], CC: Sarai Bro; Amilcar Paz MD Manager Human Resources: Signed 24-Dec-2014 Echocardiogram Complete Result: Comments: See Note; NOTES: [facility] Cardiovascular Services [address] [place] [address] Echo Complete 12/24/14 1003 MR#: [id number] Acct: [id number] Name: SEAN CRAIN Rep #: [id number] : 1940 74 From: Amilcar Paz MD Attending Dr: Jennifer Monroe Status: REG CLI Ordering Dr: Jennifer Monroe Date: 12/24/14 Location: [facility] Sex: F C Admitted: Pr raji This [...] Jennifer Monroe Performed By: SANTA Banegas 12/24/14 7989 Date Amilcar Paz MD CC: Sarai Bro; Jennifer Monroe Date Dictated: 12/24/14 1003 Date Transcribed: 12/24/14 1359 Manager Human Resources: Signed 19-Jul-2014 Hip min 2 Views Result: Comments: See Note; NOTES: [facility] Imaging Services [address] [place] [address] Radiology Report MR#: [id number] Acct: [id number] Name: SEAN CRAIN Rep #: [id number] : 1940 F 74 From: Henry Jones MD PCP: Sarai Bro Status: REG CLI Study: Hip min 2 Views Date of Exam: 07/19/14 Exam# [id number] Ordering Dr: Sarai Bro STUDY: X-RAY - [...] Henry Jones MD at 11:38 EST Tel [phone], Service support [phone], RAD/Hip min 2 Views IMPRESSION: Degenerative changes of the hip. Electronically Signed: Henry Jones MD at 11:38 EST Tel [phone], Service support [phone], CC : Sarai Bro Manager Human Resources: Signed 19-Jul-2014 L/S Spine Min 4 Views Result: Comments: See Note; NOTES: [facility] Imaging Services [address] [place] [address] Radiology Report MR#: [id number] Acct: [id number] Name: SEAN CRAIN Rep #: [id number] : 1940 F 74 From: Henry Jones MD PCP: Sarai Bro Status: REG CLI Study: L/S Spine Min 4 Views Date of Exam: 07/19/14 Exam# [id number] Ordering Dr: Sarai Bro STUDY: X-RAY - [...] Henry Jones MD at 13:19 EST Tel [phone], Service support [phone], CC: Sarai Bro Manager Human Resources: Signed 05-Jan-2014 Bilat Scrn Digital & CAD Result: Comments: See Note; NOTES: [facility] Imaging Services [address] [facility] [place] [address] Breast Imaging Report MR#: [id number] Acct: [id number] Name: SEAN CRAIN Rep #: [id number] : 1940 F 73 From: Henry Jones MD PCP: Status: [facility] CLI Exam# [id number] Ordering Dr: Sarai Bro MAMMOGRAPHY - BILATERAL [...] Henry Jones MD at 9:58 EDT Tel [phone], Service support [phone], CC: Sarai Bro; Amilcar Paz MD Manager Human Resources: Signed Immunization Name Dates Details Influenza (3 years and up) on: 13-Jun-2008 Influenza (3 years and up) on: 22-May-2009 Comments: Lot #[id number]-left deltoidgiven by:CDH Family History Unknown Family Member Name Dates Details Father Comments: [place] at 48 & Status: Active Social History Name Dates Details Caffeine Use Comments: 2 cups coffee qd 1 soda qod Status: Active 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 Status: Inactive Tobacco use: Never smoker. Status: Inactive Vital Signs Date Test Result Details 61-Idz-791426:20 Temperature 99.4 f Comments: Method: Temporal Pulse [...] kg/m2 Body Surface Area Calculated 1.87 m2 7-Qxy-359697:30 Temperature 97.7 f Comments: Method: Temporal Pulse [...] kg/m2 Body Surface Area Calculated 1.86 m2 58-Fas-831757:20 Temperature 98.2 f Pulse 67 /min Comments: [...] kg/m2 Body Surface Area Calculated 1.85 m2 41-Izc-978624:44 Temperature 98 f Comments: Method: Oral Pulse [...] kg/m2 Body Surface Area Calculated 1.81 m2 41-Tat-252482:30 Temperature 99.2 f Comments: Method: Oral Pulse [...] kg/m2 Body Surface Area Calculated 1.81 m2 60-Tva-434452:39 Temperature 99 f Comments: Method: Oral Pulse [...] Value Details :18 Prothrombin Time w/INR Comments: [facility] [address] [place], [place], [phone](978) INR 2.7 (Normal) PROTIME 28.4 s (Abnormal) Range: 11.7-14.9 89-Pno-387617:14 Prothrombin Time w/INR Comments: [facility] [address] [place], [place], [phone](006) INR 2.2 (Normal) PROTIME 24.6 s (Abnormal) Range: 11.7-14.9 :18 Prothrombin Time w/INR Comments: [facility] [address] [place], [place], [phone](630) INR 2.2 (Normal) PROTIME 24.3 s (Abnormal) Range: 11.7-14.9 :26 Prothrombin Time w/INR Comments: [facility] [address] [place], [place], [phone](847) INR 2.2 (Normal) PROTIME 24.6 s (Abnormal) Range: 11.7-14.9 :13 Prothrombin Time w/INR Comments: [facility] [address] [place], [place], [phone](892) INR 2.3 (Normal) PROTIME 25.7 s (Abnormal) Range: 11.7-14.9 :58 Prothrombin Time w/INR Comments: [facility] [address] [place], [place], [phone](409) INR 2.0 (Normal) PROTIME 22.8 s (Abnormal) Range: 11.7-14.9 :45 CBC W/Diff, Automated Comments: [facility] [address] [place], [address] ; another Absolute Lymph 2.13 [...] Range: 4.4-11.0 :45 Comprehensive Metabolic Profil Comments: [facility] [address] [place], [address] ; Dr Jackson GAP 8 [...] Comments: Please note revised GLUCOSE reference range fzawldpek80/02/2018. 33-Cco-50486:45 Lipid Profile Comments: [facility] [address] [place], [address] VLDL 17 mg/dL (Normal) Range: 5-40 LDL [...] 200-240 mg/dL Borderline >240 mg/dL High Risk 83-Gpn-36576:45 Microalb:Creat Ratio,Random UR Comments: [facility] [address] [place], [place], [phone] MALB:CREAT 8.4 {mg/g_CRE} (Normal) MICROALBUMIN,UR 13.5 mg/L (Normal) UR CREAT 160.00 mg/dL (Normal) 07-Oxp-51695:45 Prothrombin Time w/INR Comments: [facility] [address] [place], [address] INR 1.9 (Normal) PROTIME 21.5 s (Abnormal) Range: 11.7-14.9 Comments: ADDENDA: cardio :45 Thyroid Stim Hormone (TSH) Comments: [facility] [address] [place], [address] TSH 2.92 {uIU/mL} (Normal) Range: 0.358-3.74 43-Utx-43269:45 Urinalysis, Routine (Dipstick) Comments: How was Urine Obtained? [facility] [address] [place], [address] ; other doc LEUK ESTERASE 100 /ul (Abnormal) OCCULT BLOOD-UR 50 /ul (Abnormal) NITRITE UR Negative (Normal) UROBILI Normal mg/dL (Normal) PROT DIPSTX Negative mg/dL (Normal) pH UR 6.0 (Normal) Range: 5.0 - 8.0 SP.GR. DIPSTX 1.020 (Normal) Range: 1.002-1.030 KETONE UR Negative mg/dL (Normal) BILIRUBIN URINE Negative mg/dL (Normal) GLUCOSE, UR Normal mg/dL (Normal) CLARITY Cloudy (Normal) COLOR Yellow (Normal) 32-Djz-437590:31 Prothrombin Time w/INR Comments: [facility] [address] [place], [place], [id number] INR 2.1 (Normal) PROTIME 23.3 s (Abnormal) Range: 11.7-14.9 5-Dhf-854325:20 Prothrombin Time w/INR Comments: [facility] [address] [place], [phone] INR 2.2 (Normal) Comments: ADDENDA: managed by cardio PROTIME 24.1 s (Abnormal) Range: 11.7-14.9 37-Aik-613952:40 Prothrombin Time w/INR Comments: [facility] [address] [place], [phone] ; managed by cardio INR 2.0 (Normal) PROTIME 22.9 s (Abnormal) Range: 11.7-14.9 87-Qqn-865018:13 Prothrombin Time w/INR Comments: [facility] [address] [place], [place], [phone] INR 1.6 (Normal) PROTIME 19.5 s (Abnormal) Range: 11.7-14.9 19-Bbu-629734:28 Prothrombin Time w/INR Comments: [facility] [address] [place], [phone] ; cardio INR 1.8 (Normal) PROTIME 19.8 s (Abnormal) Range: 11.7-14.9 7-Fnb-472947:53 Prothrombin Time w/INR Comments: [place] [address] [place], [phone] INR 2.4 (Normal) PROTIME 24.8 s (Abnormal) Range: 11.7-14.9 8-Mhq-855342:26 Prothrombin Time w/INR Comments: [facility] [address] [place], [address] INR 1.9 (Normal) PROTIME 21.2 s (Abnormal) Range: 11.7-14.9 34-Ryp-576174:42 Rapid Flu (12103 x 2) Influenza A Ag POS B (Normal) 56-Sog-630547:04 Prothrombin Time w/INR Comments: [facility] [address] [place], [place], [phone] ; cardio manages INR 1.4 (Normal) PROTIME 16.5 s (Abnormal) Range: 11.7-14.9 71-Ubd-442351:28 Prothrombin Time w/INR Comments: [facility] [address] [place], [place], [phone] INR 1.2 (Normal) PROTIME 14.3 s (Normal) Range: 11.7-14.9 3-Kpc-915934:11 Prothrombin Time w/INR Comments: [facility] [address] [place], [place], [phone] INR 2.0 (Normal) PROTIME 21.6 s (Abnormal) Range: 11.7-14.9 01-Mqa-933422:18 CBC W/Diff, Automated Comments: [facility] [address] [place], [address] Absolute Lymph 2.38 {X10_3/ul} (Normal) [...] Range: 4.4-11.0 :18 Prothrombin Time w/INR Comments: [facility] Scevjxxyki[address] [place], [place], [address] INR 2.1 (Normal) PROTIME 22.8 s (Abnormal) Range: 11.7-14.9 :52 POTASSIUM SERUM (54672) Comments: STAT; Order Date: 07/23/17Order Info: [id number] - KComments: [facility] Yszuwexxnn1783 [address] [place], [place], [address] K 4.4 mmol/L (Normal) Range: 3.5-5.1 30-Kwl-893391:56 Microscopic Examination Comments: PATIENT NOT FASTINGPERFORMED BY: Red e App6370 [place] [id number] Bacteria Few (Normal) Mucus Threads Present (Normal) Epithelial Cells (non renal) 0-10 {/hpf} (Normal) Range: 0 - 10 RBC 3-10 {/hpf} (Abnormal) Range: 0 - 2 WBC 0-5 {/hpf} (Normal) Range: 0 - 5 :56 VITAMIN B-12 (CYANOCOBALAMIN) Comments: PATIENT NOT FASTINGPERFORMED BY: [place] Mkubqt1643 [place] [id number] (24254) Vitamin B12 451 pg/mL (Normal) Range: 232-1245 Comments: Please note reference interval change :56 TSH (34197) Comments: PATIENT NOT FASTINGPERFORMED BY: [facility] Hvzgdf0744 [place] Touch[place]entbl[place] [id number] TSH 2.910 {uIU/mL} (Normal) Range: 0.450-4.500 :56 URINALYSIS, W/ MICRO (84767) Comments: PATIENT NOT FASTINGPERFORMED BY: [facility] IOMatheny Medical and Educational CenterBwxygi3450 [facility] [id number] Microscopic Examination See below: (Normal) Comments: Microscopic was indicated and was performed. Nitrite, Urine Negative (Normal) Urobilinogen,Semi-Qn 0.2 mg/dL (Normal) Range: 0.2-1.0 Bilirubin Negative (Normal) Occult Blood 1+ (Abnormal) Ketones Negative (Normal) Glucose Negative (Normal) Protein Negative (Normal) WBC Esterase Trace (Abnormal) Appearance Clear (Normal) Urine-Color Yellow (Normal) pH 7.0 (Normal) Range: 5.0-7.5 Specific [place] 1.017 (Normal) Range: 1.005-1.030 :56 MICROALBUMIN: CREATININE RATIO Comments: PATIENT NOT FASTINGPERFORMED BY: [facility] IOMatheny Medical and Educational CenterUwolmv5402 [facility] [id number] (97729) AND (37098) Microalb/Creat Ratio 7.4 {mg/g_creat} (Normal) Range: 0.0-30.0 Microalbumin, Urine 5.0 ug/mL (Normal) Creatinine, Urine 68.0 mg/dL (Normal) :56 METABOLIC PANEL, COMPREHENSIVE Comments: PATIENT NOT FASTINGPERFORMED BY: [facility] Clare6370 [facility] [id number] (59685) ALT (SGPT) 18 [iU]/L (Normal) Range: 0-32 [...] Glucose, Serum 87 mg/dL (Normal) Range: 65-99 41-Har-492075:56 CBC W/AUTO DIFF WBC (91487) Comments: PATIENT NOT FASTINGPERFORMED BY: LabCoMatheny Medical and Educational CenterIscwkt6022 [facility] [id number] Immature Grans (Abs) 0.0 {x10E3/uL} (Normal) Range: [...] Range: 3.4-10.8 :38 Prothrombin Time w/INR Comments: [facility] Ognsrnmuol[address] [place], [address] INR 2.0 (Normal) PROTIME 22.0 s (Abnormal) Range: 11.7-14.9 06-Act-846241:21 Prothrombin Time w/INR Comments: [facility] Slkwrqhdjd0[address] [place], [address] INR 2.5 (Normal) PROTIME 26.0 s (Abnormal) Range: 11.7-14.9 :12 Lipid Profile Comments: Order Date: 12/04/16Order Info: [id number] - *Hepatic Function PanelOrder Info: [id number] - *Lipid Profile CC PCPComments: 12 hours fasting, may have water.[facility] Iszihtutzj4488 [address] [place], [place], [address](397) VLDL 21 mg/dL (Normal) Range: 5-40 LDL [...] Info: 0788-1 - *Hepatic Function PanelOrder Info: [id number] - *Lipid Profile CC PCPComments: 12 hours fasting, may have water.[facility] Rnkipkpfxo9122 [address] [place], [place], [address] D BILI 0.09 mg/dL (Normal) Range: 0.00-0.30 T BILI 0.50 mg/dL (Normal) Range: 0.20-1.00 ALT 21 U/L (Normal) Range: 12-78 ALK P 78 U/L (Normal) Range: 45-117 AST 16 U/L (Normal) Range: 15-37 GLOB 3.1 g/dL (Normal) Range: 2.2-4.2 ALB 3.5 g/dL (Normal) Range: 3.4-5.0 Comments: Please note revised Albumin AND Globulin reference rangeeffective 2017. T PROT 6.6 g/dL (Normal) Range: 6.4-8.2 38-Jwt-769098:39 Prothrombin Time w/INR Comments: [facility] O[address] [place], [place], [address] INR 2.4 (Normal) PROTIME 24.9 s (Abnormal) Range: 11.7-14.9 :43 Prothrombin Time w/INR Comments: [facility] [address] [place], [place], [address] INR 2.2 (Normal) PROTIME 23.9 s (Abnormal) Range: 11.7-14.9 :22 CBC W/Diff, Automated Comments: [facility] [address] [place], [place], [address] ; OV 9/5 Absolute Lymph 2.11 {X10_3/ul} [...] Range: 4.4-11.0 09-Apr-20179:22 Comprehensive Metabolic Profil Comments: [facility] Gwkwmoubce2377 [place], [address] GAP 7 (Normal) Range: 5-15 CO2 33.0 [...] 70-110 :22 Thyroid Stim Hormone (TSH) Comments: [facility] Duhccfhcbb9023 [address]. [place], [place], [address] TSH 3.52 {uIU/mL} (Normal) Range: 0.358-3.74 95-Aad-141376:37 Prothrombin Time w/INR Comments: [facility] Qfqlkklosi3539 [place], [address] INR 2.1 (Normal) PROTIME 22.4 s (Abnormal) Range: 11.7-14.9 70-Gbq-076841:12 Prothrombin Time w/INR Comments: PT ORDER IS AND T4 IS [facility] Yidhptxqnr5849 [address] [place], [place], [phone] INR 2.1 (Normal) PROTIME 23.1 s (Abnormal) Range: 11.7-14.9 74-Dlh-219073:11 T4 Total, Thyroxin Comments: Order Date: 02/19/17Order Info: [id number] - *T4 (Total)Comments: Reason:Order Info: [id number] - *[facility] Lvgrngrong0653 [address] [place], [place], [address] T4 THYROXIN 7.2 ug/dL (Normal) Range: 4.8-13.9 08-Xvs-685552:11 Thyroid Stim Hormone (TSH) Comments: Order Date: 02/19/17Order Info: [id number] - *T4 (Total)Comments: Reason:Order Info: [id number] - *[facility] Dttjdaipll7629 [address] [place], [address] TSH 1.56 {uIU/mL} (Normal) Range: 0.358-3.74 :37 Prothrombin Time w/INR Comments: [facility] Xzinsefusa1494 [place], [address] INR 1.9 (Normal) PROTIME 21.4 s (Abnormal) Range: 11.7-14.9 6-Mdg-137046:50 Prothrombin Time w/INR Comments: [facility] Mxphageche9812 [address] [place], [address] INR 2.0 (Normal) PROTIME 21.6 s (Abnormal) Range: 11.7-14.9 91-Akk-700684:37 Prothrombin Time w/INR Comments: [facility] Qcvuqmgnol8383 [place], [address] INR 2.5 (Normal) PROTIME 25.6 s (Abnormal) Range: 11.7-14.9 49-Ydf-110770:18 Prothrombin Time w/INR Comments: [facility] Bdeltpqkej0230 [place], [address] INR 2.1 (Normal) PROTIME 22.5 s (Abnormal) Range: 11.7-14.9 98-Jwh-099460:17 Lipid Profile Comments: Order Date: 06/02/16Order Info: [id number]- [id number] - *Hepatic Function PanelDR.JACKSON BROWNEICHELLE LIPID LIVEROrder Date: 06/02/16Order Info: [id number] - *Lipid Profile CC PCPComments: 12 hours fasting, may have mary lalaOhio[facility] Yvhraedery8171 [place], [address] VLDL 31 mg/dL (Normal) Range: 5-40 LDL [...] 200-240 mg/dL Borderline >240 mg/dL High Risk 64-Uml-650022:17 Liver Profile Comments: Order Date: 06/02/16Order Info: [id number]- [id number] - *Hepatic Function PanelDR.JACKSON PTMICHELLE LIPID LIVEROrder Date: 06/02/16Order Info: [id number] - *Lipid Profile CC PCPComments: 12 hours fasting, may have mary lalaOhio[facility] Zfihbmerji5952 [place], [address] D BILI 0.09 mg/dL (Normal) Range: 0.00-0.30 T BILI 0.50 mg/dL (Normal) Range: 0.20-1.00 ALT 28 U/L (Normal) Range: 12-78 ALK P 93 U/L (Normal) Range: 45-117 AST 21 U/L (Normal) Range: 15-37 GLOB 3.4 g/dL (Normal) Range: 2.3-3.5 ALB 4.0 g/dL (Normal) Range: 3.4-5.0 T PROT 7.4 g/dL (Normal) Range: 6.4-8.2 6-Irv-040121:32 Prothrombin Time w/INR Comments: [facility] Vzckewusyf0050 [place], [address] ; jackson manages INR 1.8 (Normal) PROTIME 20.2 s (Abnormal) Range: 11.7-14.9 37-Vva-571010:09 Prothrombin Time w/INR Comments: [facility] Lohywokuzb2413 [place], [address] ; another doc INR 2.1 (Normal) PROTIME 23.1 s (Abnormal) Range: 11.7-14.9 46-Von-220250:10 Metabolic Panel, Comprehensive Comments: today; PATIENT NOT FASTINGPERFORMED BY: [facility] Chafoq4237 [place] [id number] (68265) ALT (SGPT) 16 [iU]/L (Normal) Range: 0-32 [...] Glucose, Serum 89 mg/dL (Normal) Range: 65-99 16-Hzp-846681:26 Prothrombin Time w/INR Comments: [facility] Jjddzsztca0806 [address] [place], [place], [address] INR 2.2 (Normal) PROTIME 23.7 s (Abnormal) Range: 11.7-14.9 06-Vup-973390:52 CBC-Complete Blood Cnt No Diff Comments: [facility] [address] [place], [address] ; sibilia MPV 10.8 fL [...] Range: 4.4-11.0 :58 Prothrombin Time w/INR Comments: [facility] Ofkhaqklit6124 [address] [place], [place], [address] INR 2.0 (Normal) PROTIME 22.4 s (Abnormal) Range: 11.7-14.9 46-Gsi-948512:49 Prothrombin Time w/INR Comments: [facility] [address]pkviafijr[address] [place], [address] INR 2.0 (Normal) PROTIME 22.3 s (Abnormal) Range: 11.7-14.9 11-Fkw-247816:54 CBC WITH MANUAL DIFF (88966) Comments: PATIENT NOT FASTINGPERFORMED BY: CB [facility] Fzoiqx8323 [facility] [id number] Immature Grans (Abs) 0.0 {x10E3/uL} (Normal) Range: [...] 3.77-5.28 WBC 6.2 {x10E3/uL} (Normal) Range: 3.4-10.8 45-Hyg-599068:54 Metabolic Panel, Comprehensive Comments: PATIENT NOT FASTINGPERFORMED BY: [facility]6370 [facility] [id number] (99370) ALT (SGPT) 18 [iU]/L (Normal) Range: 0-32 [...] Glucose, Serum 86 mg/dL (Normal) Range: 65-99 25-Mvj-834456:54 TSH (96015) Comments: PATIENT NOT FASTINGPERFORMED BY: LabCoMatheny Medical and Educational CenterWxsiph3896 [facility] [id number] TSH 2.890 {uIU/mL} (Normal) Range: 0.450-4.500 42-Etr-707591:23 Prothrombin Time w/INR Comments: [facility] Vjiaemjkmb9604 [address] [place], [place], [address] ; managed by cardio INR 2.6 (Normal) PROTIME 27.4 s (Abnormal) Range: 11.7-14.9 49-Wzi-07294:54 Prothrombin Time w/INR Comments: [facility] Hxzbmkuwxs1228 [address] [place], [place], [address] ; another doc INR 2.0 (Normal) PROTIME 22.3 s (Abnormal) Range: 11.7-14.9 :53 Lipid Profile Comments: Order Date: 05/22/16 Order #: [id number] Grady Memorial Hospital Cqdxpitkea9945 [address] [place], [place], [address] VLDL 21 mg/dL (Normal) Range: 5-40 LDL [...] Profile Comments: Order Date: 05/22/16 Order #: [id number] Grady Memorial Hospital Maidzwdpdh3016 [address] [place], [place], [address] D BILI < 0.05 mg/dL (Normal) Range: [...] Range: 6.4-8.2 :09 Prothrombin Time w/INR Comments: [facility] Rjiwkprfss[address] [place], [place], [address] INR 2.5 (Normal) PROTIME 26.3 s (Abnormal) Range: 11.7-14.9 :59 Prothrombin Time w/INR Comments: [facility] Ifkmuaexpn[address] [place], [place], [address] ; managed by cardio INR 2.9 (Normal) PROTIME 29.3 s (Abnormal) Range: 11.7-14.9 :05 Prothrombin Time w/INR Comments: [facility] Zmqfavwjsc[address] [place], [address] INR 2.0 (Normal) PROTIME 22.3 s (Abnormal) Range: 11.7-14.9 42-Isl-367441:11 Prothrombin Time w/INR Comments: [facility] Vwipufusgs[address] [place], [place], [address] INR 2.7 (Normal) Comments: ADDENDA: managed by cardio PROTIME 27.7 s (Abnormal) Range: 11.7-14.9 :14 Prothrombin Time w/INR Comments: [facility] Wqcuidjjbd[address] [place], [place], [address] ; managed by Jackson INR 2.7 (Normal) PROTIME 28.1 s (Abnormal) Range: 11.7-14.9 :45 Prothrombin Time w/INR Comments: [facility] Uwutkhmbr[address] [place], [place], [address] ; managed by cardio INR 3.1 (Normal) PROTIME 31.3 s (Abnormal) Range: 11.7-14.9 :27 Prothrombin Time w/INR Comments: [facility] Koqezgpdez[address] [place], [place], [address] ; managed by cardio INR 3.1 (Normal) PROTIME 31.1 s (Abnormal) Range: 11.7-14.9 :22 Prothrombin Time w/INR Comments: [facility] [address]fvrstkqwq[address] [place], [place], [address] INR 2.6 (Normal) PROTIME 27.4 s (Abnormal) Range: 11.7-14.9 16-Jan-20169:08 Prothrombin Time w/INR Comments: [facility] [address]sc[address]xar[address] [place], [place], [address] ; managed with Dr. paz INR 4.1 (Abnormal) Comments: CRITICAL VALUE REPEATED AND VERIFIED. CALLED TO [facility]01/16/16 1251 Elza Hinojosa.RESULTS READ BACK BY SAME . PROTIME 38.2 s (Abnormal) Range: 11.7-14.9 71-Kiv-158467:11 Microscopic Examination Comments: PATIENT WAS FASTINGPERFORMED BY: [facility] [id number] Bacteria None seen (Normal) Mucus Threads Present (Normal) Epithelial Cells (non renal) 0-10 {/hpf} (Normal) Range: 0 - 10 RBC 11-30 {/hpf} (Abnormal) Range: 0 - 2 WBC 0-5 {/hpf} (Normal) Range: 0 - 5 54-Bvh-757781:11 MICROALBUMIN: CREATININE RATIO Comments: PATIENT WAS FASTINGPERFORMED BY: [employer] [facility] [id number] (60272) AND (90848) Microalb/Creat Ratio 11.4 {mg/g_creat} (Normal) Range: 0.0-30.0 Microalbumin, Urine 12.1 ug/mL (Normal) Comments: Please note reference interval change Creatinine, Urine 106.3 mg/dL (Normal) Comments: Please note reference interval change 95-Hoq-936869:11 URINALYSIS (59660) Comments: PATIENT WAS FASTINGPERFORMED BY: [facility] [id number] Microscopic Examination See below: (Normal) Comments: Microscopic was indicated and was performed. Nitrite, Urine Negative (Normal) Urobilinogen,Semi-Qn 0.2 mg/dL (Normal) Range: 0.2-1.0 Bilirubin Negative (Normal) Occult Blood 2+ (Abnormal) Ketones Negative (Normal) Glucose Negative (Normal) Protein Negative (Normal) WBC Esterase Negative (Normal) Appearance Clear (Normal) Urine-Color Yellow (Normal) pH 7.0 (Normal) Range: 5.0-7.5 Specific [place] 1.018 (Normal) Range: 1.005-1.030 88-Gkd-122461:11 Metabolic Panel, Comments: PATIENT WAS FASTINGPERFORMED BY: [facility]6370 [facility] [id number] Information: [id number] Comprehensive (83808) ALT (SGPT) 14 [iU]/L (Normal) Range: 0-32 [...] Glucose, Serum 91 mg/dL (Normal) Range: 65-99 83-Oxt-746381:11 TSH (44570) Comments: PATIENT WAS FASTINGPERFORMED BY: [facility] Erktww9143 [facility] [id number] TSH 2.260 {uIU/mL} (Normal) Range: 0.450-4.500 :17 Prothrombin Time w/INR Comments: [facility] [address] [place], [place], [address] INR 2.8 (Normal) PROTIME 28.4 s (Abnormal) Range: 11.7-14.9 :40 Lipid Profile Comments: [facility] O[address]isqddlc[address] [place], [place], [address] VLDL 22 mg/dL (Normal) Range: 5-40 LDL [...] mg/dL High Risk :40 Liver Profile Comments: [facility] [address]ntlcohe[address] [place], [place], [address] D BILI 0.10 mg/dL (Normal) Range: 0.00-0.30 T BILI 0.60 mg/dL (Normal) Range: 0.20-1.00 ALT 26 U/L (Normal) Range: 12-78 ALK P 86 U/L (Normal) Range: 50-136 AST 20 U/L (Normal) Range: 15-37 GLOB 3.4 g/dL (Normal) Range: 2.3-3.5 ALB 3.9 g/dL (Normal) Range: 3.4-5.0 T PROT 7.3 g/dL (Normal) Range: 6.4-8.2 :26 Prothrombin Time w/INR Comments: [facility] [address]avvqbigq[address] [place], [place], [address] INR 2.6 (Normal) Comments: ADDENDA: handled by cardio PROTIME 27.3 s (Abnormal) Range: 11.7-14.9 :40 Prothrombin Time w/INR Comments: [facility] [address]ts[address] [place], [address] INR 2.4 (Normal) PROTIME 26.4 s (Abnormal) Range: 11.7-14.9 2-Tot-716805:03 Prothrombin Time w/INR Comments: [facility] Ggsexahqbw23[address] [place], [address] ; per pop up in EMR cardio manages INR INR 2.2 (Normal) PROTIME 24.5 s (Abnormal) Range: 11.7-14.9 32-Bxz-920558:51 Prothrombin Time w/INR Comments: [place] [address] [address] [place], [address] INR 1.6 (Normal) PROTIME 19.0 s (Abnormal) Range: 11.7-14.9 Comments: ADDENDA: managed by cardio :33 Prothrombin Time w/INR Comments: [facility] Mvxjuuyfrb9098 [address] [place], [address] ; handled by cardio INR 2.1 (Normal) PROTIME 24.0 s (Abnormal) Range: 11.7-14.9 77-Vtq-119275:02 Prothrombin Time w/INR Comments: [place] [address] [address] [place], [address] INR 2.2 (Normal) PROTIME 24.1 s (Abnormal) Range: 11.7-14.9 78-Iip-211935:37 Prothrombin Time w/INR Comments: [facility] [address]jf[address] [place], [address] INR 2.5 (Normal) PROTIME 26.7 s (Abnormal) Range: 11.7-14.9 :44 Prothrombin Time w/INR Comments: [place] [address] [address] [place], [place], [address] INR 2.2 (Normal) PROTIME 24.6 s (Abnormal) Range: 11.7-14.9 09-Llr-296538:15 Prothrombin Time w/INR Comments: [facility] Ulgnoqrhlu[address] [place], [place], [address] INR 1.6 (Normal) PROTIME 19.4 s (Abnormal) Range: 11.7-14.9 :36 Prothrombin Time w/INR Comments: [facility] Cfdnggjokv83[address] [place], [place], [address] INR 1.2 (Normal) PROTIME 15.3 s (Abnormal) Range: 11.7-14.9 :02 Prothrombin Time w/INR Comments: [address] [place], [place], [address] INR 2.7 (Normal) PROTIME 29.0 s (Abnormal) Range: 11.7-14.9 :47 Lipid Profile Comments: [facility] Qocflvgfdm[address] [place], [place], [address] VLDL 20 mg/dL (Normal) Range: 5-40 LDL [...] mg/dL High Risk :47 Liver Profile Comments: [facility] Igdzzwzbaf9257 [address] [place], [place], [address] D BILI 0.09 mg/dL (Normal) Range: 0.00-0.30 T BILI 0.40 mg/dL (Normal) Range: 0.20-1.00 ALT 26 U/L (Normal) Range: 12-78 ALK P 86 U/L (Normal) Range: 50-136 AST 24 U/L (Normal) Range: 15-37 GLOB 3.3 g/dL (Normal) Range: 2.3-3.5 ALB 4.0 g/dL (Normal) Range: 3.4-5.0 T PROT 7.3 g/dL (Normal) Range: 6.4-8.2 9-Iju-631803:11 CBC, Platelets & Auto Diff Comments: PATIENT NOT FASTINGPERFORMED BY: [facility] Iruztw8561 [facility] [id number] Information: [id number] ([id number]) Immature Grans (Abs) 0.0 {x10E3/uL} (Normal) Range: [...] 3.77-5.28 WBC 6.2 {x10E3/uL} (Normal) Range: 3.4-10.8 7-Cof-098140:11 CALCIFEDIOL (20777) Comments: PATIENT NOT FASTINGPERFORMED BY: [facility] Clare6370 [facility] [id number] Vitamin D, 25-Hydroxy 38.9 ng/mL (Normal) Range: 30.0-100.0 Comments: Vitamin D deficiency has been defined by the [place] ofThe University [facility] Medical Centercine and an Endocrine Society practice guideline as alevel of serum 25-OH vitamin D less than 20 ng/mL (1,2).The Endocrine Society went on to further define vitamin Dinsufficiency as a level between 21 and 29 ng/mL (2).1. IOM ([place] of Medicine). 2010. Dietary reference intakes for calcium and D. [place]: The National Academies Press.2. Roberto MF, Brody OCHOA, Maribell CADENA, et al. Evaluation, treatment, and prevention of vitamin D deficiency: an Endocrine Society clinical practice guideline. JCEM. 2010; 96(7):1911-30. 1-Bps-728044:11 VITAMIN B12 AND FOLATES Comments: PATIENT NOT FASTINGPERFORMED BY: [facility] Clare6370 [facility] [id number] (93455) Folate (Folic Acid), Serum 10.4 ng/mL (Normal) Comments: A serum folate concentration of less than 3.1 ng/mL isconsidered to represent clinical deficiency. Vitamin B12 1651 pg/mL (Abnormal) Range: 211-946 9-Lyy-981697:11 Metabolic Panel, Comprehensive Comments: PATIENT NOT FASTINGPERFORMED BY: [facility] Clare6370 [facility] [id number] (44782) ALT (SGPT) 15 [iU]/L (Normal) Range: 0-32 [...] Range: 65-99 09-May-20159:53 Prothrombin Time w/INR Comments: [facility] [address]jhw[address]agtz7927 [place], [address] INR 1.9 (Normal) PROTIME 22.0 s (Abnormal) Range: 11.7-14.9 28-Qog-785466:40 Prothrombin Time w/INR Comments: Test performed at:[facility] Hffbxdwqzk8040 [facility] [place] [address] INR 1.3 (Normal) PROTIME 16.3 s (Abnormal) Range: 11.7-14.9 17-Avj-520748:03 Prothrombin Time w/INR Comments: Test performed at:[facility] Heyvubtmrc4218 [facility] [place] [address] INR 1.7 (Normal) PROTIME 20.4 s (Abnormal) Range: 11.7-14.9 0-Gsf-773979:26 Prothrombin Time w/INR Comments: Test performed at:[facility] Cfeewnszxe3001 [facility] [place] [address] INR 1.2 (Normal) Comments: ADDENDA: managed by dr paz PROTIME 15.8 s (Abnormal) Range: 11.7-14.9 14-Mko-408255:28 Prothrombin Time w/INR Comments: Test performed at:[facility] [address] [place] [phone] INR 1.2 (Normal) PROTIME 15.8 s (Abnormal) Range: 11.7-14.9 :54 Prothrombin Time w/INR Comments: Test performed at:[facility] T[address] [place] [address] INR 2.5 (Normal) PROTIME 27.3 s (Abnormal) Range: 11.7-14.9 5-Zai-668309:16 Prothrombin Time w/INR Comments: Test performed at:[facility] [address] [place] [address] INR 2.0 (Normal) PROTIME 23.2 s (Abnormal) Range: 11.7-14.9 96-Vzz-025039:29 Prothrombin Time w/INR Comments: Test performed at:[facility] [address] [place] [address] INR 2.8 (Normal) PROTIME 29.3 s (Abnormal) Range: 11.7-14.9 30-Paj-297851:06 Prothrombin Time w/INR Comments: Test performed at:[facility] [address] [place] [address] ; Dr Bella manages INR 2.1 (Normal) PROTIME 24.0 s (Abnormal) Range: 11.7-14.9 :45 Prothrombin Time w/INR Comments: Test performed at:[facility] [address] [place] [address] ; ordered by another INR 1.3 (Normal) PROTIME 16.5 s (Abnormal) Range: 11.7-14.9 :00 Prothrombin Time w/INR Comments: Test performed at:[facility] [address] [place], [place] [address] INR 0.9 (Normal) PROTIME 12.7 s (Normal) Range: 11.7-14.9 :05 Vitamin B12 and Folate Comments: PATIENT NOT FASTINGPERFORMED BY: [facility] CenterCrfmpt[facility]86 [facility] [id number] Information: [id number] Folate (Folic Acid), 7.8 ng/mL (Normal) Comments: A serum folate concentration of less than 3.1 ng/mL isconsidered to represent clinical deficiency. Serum Vitamin B12 1883 pg/mL Range: 211-946 (Abnormal) : Vitamin D, 42.8 ng/mL (Normal) Comments: PATIENT NOT FASTINGPERFORMED BY: [facility] [address] [facility] [id number] 05 25-Hydroxy Range: 30.0-100.0 Comments: Vitamin D deficiency has been defined by the [place] [employer] and an Endocrine Society practice guideline as alevel of serum 25-OH vitamin D less than 20 ng/mL (1,2).The Endocrine Society went on to further define vitamin Dinsufficiency as a level between 21 and 29 ng/mL (2).1. IOM ([place] [employer]). 2010. Dietary reference intakes for calcium and D. [place]: The National Academies Press.2. Roberto MF, Brody [place], Maribell CADENA, et al. Evaluation, treatment, and prevention of vitamin D deficiency: an Endocrine Society clinical practice guideline. JCEM. 2010; 96(7):1911-30. [id number] CBC W/Diff, Automated Comments: Test performed at:[facility] [id number] [place], [place] [id number] Absolute Lymph 2.41 {X10_3/ul} (Normal) Range: 0.83-4.51 [...] 4.2-5.4 WBC 6.5 K/mm3 (Normal) Range: 4.4-11.0 6-Cky-936997:26 Basic Metabolic Profile (BMP) Comments: Test performed at:[facility] [address] [place] [address] 126201 GAP 4 (Abnormal) Range: 5-15 CO2 33.0 mmol/L (Abnormal) Range: 21.0-32.0 CL 103 mmol/L (Normal) Range: 98-107 K 4.8 mmol/L (Normal) Range: 3.5-5.1 NA 140 mmol/L (Normal) Range: 136-145 CA 8.8 mg/dL (Normal) Range: 8.5-10.1 BUN/CRE 25.8 {RATIO} (Abnormal) Range: 10-20 CREAT,SERUM 1.2 mg/dL (Abnormal) Range: 0.6-1.0 BUN 31 mg/dL (Abnormal) Range: 7-18 GLU 108 mg/dL (Normal) Range: 70-110 11-Exd-175919:45 Basic Metabolic Profile (BMP) Comments: Test performed at:[facility] [address] [place] [address] GAP 4 (Abnormal) Range: 5-15 CO2 28.0 mmol/L (Normal) Range: 21.0-32.0 CL 106 mmol/L (Normal) Range: 98-107 K 4.3 mmol/L (Normal) Range: 3.5-5.1 NA 138 mmol/L (Normal) Range: 136-145 CA 8.8 mg/dL (Normal) Range: 8.5-10.1 BUN/CRE 26.0 {RATIO} (Abnormal) Range: 10-20 CREAT,SERUM 1.0 mg/dL (Normal) Range: 0.6-1.0 BUN 26 mg/dL (Abnormal) Range: 7-18 GLU 93 mg/dL (Normal) Range: 70-110 52-Qvo-823089:45 CBC W/Diff, Automated Comments: Test performed at:[facility] [address] [place] [address] Absolute Lymph 2.60 {X10_3/ul} (Normal) [...] 4.2-5.4 WBC 6.5 K/mm3 (Normal) Range: 4.4-11.0 37-Brv-204959:07 Lipid Profile Comments: Specimen slightly hemolyzed. Results may be affected.Test performed at:[facility] [address] [place] [address] VLDL 19 mg/dL (Normal) Range: 5-40 LDL [...] 200-240 mg/dL Borderline >240 mg/dL High Risk 70-Gdg-438132:07 Liver Profile Comments: Specimen slightly hemolyzed. Results may be affected.Test performed at:[facility] [address]wt5636 [facility] [place], [place] [address] D BILI < 0.05 mg/dL (Normal) Range: [...] CHOL 226 mg/dL (Abnormal) Comments: <200 mg/dL Tphdfrfre924-936 mg/dL Borderline>240 mg/dL High Risk :47 LIVER [...] :47 TSH 3.05 {uIU/mL} (Normal) Range: 0.358-3.74 99-Yrj-136440:00 LORNA CULTURE-OTHER (50302) Comments: PATIENT NOT FASTINGPERFORMED BY: [facility] [id number] Information: SRC:THRT [id number] Result 1 RRF (Normal) Comments: Routine respiratory jesus Upper Respiratory Culture Final report (Normal) 04-Uza-81951:21 Rapid Strep Test, Office (81272) Rapid Strep Test, Office Negative (Normal) 47-Uak-94683:00 BILAT SCRN DIGITAL & CAD Radiology Report [...] Jones M.D.January 04, 2013 at 10:41:52 AM [id number] Signed GP/GP If you are the referring physician and would like to consult with theradiologist who provided this interpretation, please contact Ne Huang at [phone]. If this radiologist is unavailable, youwill be directed to another radiologist to assist. If you are a patient with a question regarding this report, pleasecontactyour referring physician directly. Professional Interpretation Provided By: [employer], Phone , These documents contain legally protected [...] Function Panel Comments: PATIENT WAS FASTINGPERFORMED BY: [facility] [id number] Information: [id number] (7) ALT (SGPT) 23 [iU]/L (Normal) Range: 0-32 AST (SGOT) 21 [iU]/L (Normal) Range: 0-40 Alkaline Phosphatase, S 74 [iU]/L (Normal) Range: 25-165 Bilirubin, Direct 0.10 mg/dL Range: 0.00-0.40 (Normal) Albumin, Serum 4.3 g/dL (Normal) Range: 3.5-4.8 Bilirubin, Total 0.3 mg/dL (Normal) Range: 0.0-1.2 Protein, Total, Serum 6.7 g/dL (Normal) Range: 6.0-8.5 Written Authorization WAR (Normal) Comments: PATIENT WAS FASTINGPERFORMED BY: [facility] [id number] :19 Comments: Written Authorization Received.Authorization received from DR BRO [id number] by Rachelle Porter :19 Metabolic Panel, Comprehensive Comments: PATIENT WAS FASTINGPERFORMED BY: [facility] [id number] (58043) ALT (SGPT) 22 [iU]/L (Normal) Range: 0-32 [...] Glucose, Serum 89 mg/dL (Normal) Range: 65-99 3-Vas-163733:19 CBC with manual diff Comments: PATIENT WAS FASTINGPERFORMED BY: LabCoMatheny Medical and Educational CenterFbcxjn4902 [facility] [id number] Information: [id number] (92190) Immature Grans (Abs) 0.0 {x10E3/uL} (Normal) Range: [...] 3.77-5.28 WBC 4.6 {x10E3/uL} (Normal) Range: 4.0-10.5 0-Kpg-411361:19 Lipid Panel (55330) Comments: PATIENT WAS FASTINGPERFORMED BY: [facility] [id number] LDL/HDL Ratio 1.3 {ratio_units} (Normal) Range: 0.0-3.2 Cholesterol, Total 153 mg/dL (Normal) Range: 100-199 HDL Cholesterol 60 mg/dL (Normal) Comments: According to ATP-III Guidelines, HDL-C >59 mg/dL is considered anegative risk factor for CHD. LDL Cholesterol Calc 80 mg/dL (Normal) Range: 0-99 Triglycerides 65 mg/dL (Normal) Range: 0-149 VLDL Cholesterol Hector 13 mg/dL (Normal) Range: 5-40 3-Nyj-042202:19 TSH (44658) Comments: PATIENT WAS FASTINGPERFORMED BY: [facility] [id number] TSH 2.650 {uIU/mL} (Normal) Range: 0.450-4.500 38-Rfc-450956:14 Urinalysis, Office (60258) UA - BILIRUBIN Negative (Normal) UA - BLOOD Hemolyzed Small (Normal) UA - GLUCOSE Negative (Normal) UA - KETONES Negative mg/dL (Normal) UA - LEUKOCYTE ESTERASE Negative (Normal) UA - NITRITE Negative (Normal) UA - PH 7.0 (Normal) UA - PROTEIN Negative mg/dL (Normal) UA - SPECIFIC GRAVITY 1.015 (Normal) URINE UROBILINGN REYNA TIMED Normal mg/dL (Normal) 87-Ady-985778:10 TSH (THYROID STIMULATING Comments: PATIENT WAS FASTINGPERFORMED BY: [facility] [id number] HORMONE) (02567) TSH 2.500 {uIU/mL} (Normal) Range: 0.450-4.500 80-Dgc-714632:10 CALCIFEDIOL (36350) Comments: PATIENT WAS FASTINGPERFORMED BY: [facility] [id number] Vitamin D, 25-Hydroxy 48.1 ng/mL (Normal) Range: 30.0-100.0 Comments: Vitamin D deficiency has been defined by the [place] of[place]icine and an Endocrine Society practice guideline as alevel of serum 25-OH vitamin D less than 20 ng/mL (1,2).The Endocrine Society went on to further define vitamin Dinsufficiency as a level between 21 and 29 ng/mL (2).1. IOM ([place] of Medicine). 2010. Dietary reference intakes for calcium and D. [place]: The National Academies Press.2. Roberto MF, Brody [place], Maribell CADENA, et al. Evaluation, treatment, and prevention of vitamin D deficiency: an Endocrine Society clinical practice guideline. JCEM. 2010; 96(7):1911-30. 47-Ogz-794129:10 Lipid Panel (75421) Comments: PATIENT WAS FASTINGPERFORMED BY: [facility] Clare6370 [facility] [id number] LDL/HDL Ratio 2.3 {ratio_units} (Normal) Range: 0.0-3.2 LDL Cholesterol Calc 117 mg/dL (Abnormal) Range: 0-99 VLDL Cholesterol Hector 16 mg/dL (Normal) Range: 5-40 HDL Cholesterol 52 mg/dL (Normal) Comments: According to ATP-III Guidelines, HDL-C >59 mg/dL is considered anegative risk factor for CHD. Triglycerides 78 mg/dL (Normal) Range: 0-149 Cholesterol, Total 185 mg/dL (Normal) Range: 100-199 44-Mtp-351257:10 HEPATIC FUNCTION PANEL Comments: PATIENT WAS FASTINGPERFORMED BY: [facility] [id number] Information: [id number] (30874) ALT (SGPT) 21 [iU]/L (Normal) Range: 0-40 AST (SGOT) 20 [iU]/L (Normal) Range: 0-40 Alkaline Phosphatase, S 75 [iU]/L (Normal) Range: 25-165 Bilirubin, Direct 0.09 mg/dL (Normal) Range: 0.00-0.40 Albumin, Serum 4.0 g/dL (Normal) Range: 3.5-4.8 Bilirubin, Total 0.3 mg/dL (Normal) Range: 0.0-1.2 Protein, Total, Serum 6.5 g/dL (Normal) Range: 6.0-8.5 :41 TSH (05918) Comments: PATIENT NOT FASTINGPERFORMED BY: [facility] IONorthern Navajo Medical CenterTmzmtw[address] [place] [address] [id number] Information: [id number] TSH 3.750 {uIU/mL} (Normal) Range: 0.450-4.500 :39 Prothrombin Time (PT) Comments: PERFORMED BY: [facility] [address] [id number] Prothrombin Time 39.0 {sec} (Abnormal) Range: 8.7-11.5 INR 3.6 (Abnormal) Range: 0.8-1.2 Comments: Client Requested Flag Reference interval is for non- anticoagulated patients. . Suggested INR therapeutic ra nge for Vitamin K antagonist therapy: Standard Dose (moderate intensity therapeutic range): 2.0 - 3.0 Higher intensity therapeutic range 2.5 - 3.5 :26 PT (PROTHROMBIN TIME) Comments: PATIENT NOT FASTINGPERFORMED BY: [facility] 1219970 [facility] [id number] Information: [id number] CC:[id number] (93083) Prothrombin Time 54.3 {sec} (Abnormal) Range: 8.7-11.5 [...] (Activated Partial Comments: PATIENT NOT FASTINGPERFORMED BY: [place] 1301470 [facility] [id number] Thromboplastin Time) (57497) aPTT 39 {sec} (Abnormal) Range: 24-33 Comments: This test has not been validated for monitoring unfractionated heparintherapy. aPTT-based therapeutic ranges for unfractionated heparintherapy have not been established. For general guidelines onHeparin monitoring, refer to the [facility] Directory of Services. :51 PT (Prothrobim Time) Comments: PATIENT NOT FASTINGPERFORMED BY: [place] 1301470 [facility] [id number] Information: [id number] CC:[id number] (76879) Prothrombin Time 26.1 {sec} (Abnormal) Range: 8.7-11.5 INR 2.4 (Abnormal) Range: 0.8-1.2 Comments: Reference interval is for non-anticoagulated patients. . Suggested INR therapeutic range for Vitamin K anta gonist therapy: Standard Dose (moderate intensity therapeutic range): 2.0 - 3.0 Higher intensity therapeutic range 2.5 - 3.5 :43 HEPATIC FUNCTION PANEL Comments: PATIENT NOT FASTINGPERFORMED BY: [facility] [id number] Information: [id number] (43882) ALT (SGPT) 25 [iU]/L (Normal) Range: 0-40 AST (SGOT) 19 [iU]/L (Normal) Range: 0-40 Alkaline Phosphatase, S 73 [iU]/L (Normal) Range: 25-165 Albumin, Serum 4.4 g/dL (Normal) Range: 3.5-4.8 Bilirubin, Direct 0.09 mg/dL (Normal) Range: 0.00-0.40 Bilirubin, Total 0.3 mg/dL (Normal) Range: 0.0-1.2 Protein, Total, Serum 6.4 g/dL (Normal) Range: 6.0-8.5 :18 Lipid Panel (36146) Comments: PATIENT NOT FASTINGPERFORMED BY: [facility] Clare6370 [facility] [id number] LDL/HDL Ratio 1.3 {ratio_units} (Normal) Range: 0.0-3.2 [...] FUNCTION PANEL Comments: PATIENT NOT FASTINGPERFORMED BY: [facility] Clare6370 [facility] [id number] Information: [id number] (98393) ALT (SGPT) 60 [iU]/L (Abnormal) Range: 0-40 Alkaline Phosphatase, S 66 [iU]/L (Normal) Range: 25-165 AST (SGOT) 43 [iU]/L (Abnormal) Range: 0-40 Albumin, Serum 4.3 g/dL (Normal) Range: 3.5-4.8 Bilirubin, Direct 0.10 mg/dL (Normal) Range: 0.00-0.40 Bilirubin, Total 0.3 mg/dL (Normal) Range: 0.0-1.2 Protein, Total, Serum 6.7 g/dL (Normal) Range: 6.0-8.5 :18 CALCIFEDIOL (61132) Comments: PATIENT NOT FASTINGPERFORMED BY: [facility] Clare6370 [facility] [id number] Vitamin D, 25-Hydroxy 57.3 ng/mL (Normal) Range: 32.0-100.0 Comments: Recent studies consider the lower limit of 32.0 ng/mL to be athreshold for optimal health.Baljit HOWELL. J Nutr. 2004;135(2):317-22. 2-Gli-386851:49 Urinalysis, Office (59450) UA - BILIRUBIN Negative (Normal) UA - BLOOD Hemolyzed Moderate (Normal) UA - GLUCOSE Negative (Normal) UA - KETONES Negative mg/dL (Normal) UA - LEUKOCYTE ESTERASE Negative (Normal) UA - NITRITE Negative (Normal) UA - PH 7.5 (Normal) UA - PROTEIN Negative mg/dL (Normal) UA - SPECIFIC GRAVITY 1.015 (Normal) URINE UROBILINGN REYNA TIMED Normal mg/dL (Normal) 52-Sgl-280614:38 Urinalysis, Office (48504) UA - BILIRUBIN Negative (Normal) UA - BLOOD Hemolyzed Small (Normal) UA - GLUCOSE Negative (Normal) UA - KETONES Negative mg/dL (Normal) UA - LEUKOCYTE ESTERASE Negative (Normal) UA - NITRITE Negative (Normal) UA - PH 7.5 (Normal) UA - PROTEIN Negative mg/dL (Normal) UA - SPECIFIC GRAVITY 1.015 (Normal) URINE UROBILINGN REYNA TIMED 2 mg/dL (Normal) 67-Qkx-86008:47 Metabolic Panel, Basic Comments: PATIENT NOT FASTINGPERFORMED BY: LabCoMatheny Medical and Educational CenterEbleha5789 [facility] [id number] Information: [id number] (58384) Calcium, Serum 9.6 mg/dL (Normal) Range: 8.6-10.2 [...] CULTURE-REYNA COL Comments: PATIENT NOT FASTINGPERFORMED BY: [facility]TVSaint [facility] [id number] Information: SRC:UR [id number] COUNT (71316) Result 1 NG36 (Normal) Comments: No growth in 36 - 48 hours. Urine Culture,Comprehensive Final report (Normal) :29 Urinalysis, Office (42344) UA - BILIRUBIN Negative (Normal) UA - BLOOD Non Hemolyzed Moderate (Normal) UA - GLUCOSE Negative (Normal) UA - KETONES Negative mg/dL (Normal) UA - LEUKOCYTE ESTERASE Trace (Normal) UA - NITRITE Negative (Normal) UA - PH 6.0 (Normal) UA - PROTEIN Negative mg/dL (Normal) UA - SPECIFIC GRAVITY 1.020 (Normal) URINE UROBILINGN REYNA TIMED Normal mg/dL (Normal) 06-Rkw-306333:44 Microscopic Examination Comments: PATIENT WAS FASTINGPERFORMED BY: [employer] [facility]6370 [facility] [id number] Bacteria Few (Normal) Mucus Threads Present (Normal) Epithelial Cells (non renal) 0-10 {/hpf} (Normal) Range: 0 - 10 RBC 0-3 {/hpf} (Normal) Range: 0 - 3 WBC 0-5 {/hpf} (Normal) Range: 0 - 5 21-Bpl-749867:44 CALCIFIDIOL (20216) VIT D 25 Comments: PATIENT WAS FASTINGPERFORMED BY: [employer] Cwrqts4116 [facility] [id number] Vitamin D, 25-Hydroxy 28.6 ng/mL (Abnormal) Range: 32.0-100.0 Comments: Recent studies consider the lower limit of 32.0 ng/mL to be athreshold for optimal health.Baljit HOWELL. J Nutr. 2004;135(2):317-22. 43-Cvq-828427:44 Folate (21805) Comments: PATIENT WAS FASTINGPERFORMED BY: [facility] [place] [id number] Folate (Folic Acid), Serum 12.2 ng/mL (Normal) Comments: Indeterminate: 2.2 - 3.0 Deficient: <2.2 07-Uvc-867594:44 VITAMIN B-12 (CYANOCOBALAMIN) Comments: PATIENT WAS FASTINGPERFORMED BY: [facility] [id number] (11203) Vitamin B12 351 pg/mL (Normal) Range: 211-946 80-Uqz-613034:44 SED RATE ERYTHROCYTE (83953) Comments: PATIENT WAS FASTINGPERFORMED BY: [facility] [id number] Sedimentation Rate-Westergren 2 mm/h (Normal) Range: 0-30 80-Det-534428:44 RHEUMATOID FACTOR-QUANT (62705) Comments: PATIENT WAS FASTINGPERFORMED BY: [facility] [place] [id number] RA Latex Turbid. 10.5 {IU/mL} (Normal) Range: 0.0-13.9 24-Zds-855699:44 C-REACTIVE PROTEIN (80107) Comments: PATIENT WAS FASTINGPERFORMED BY: [facility] [id number] C-Reactive Protein, Quant 0.9 mg/L (Normal) Range: 0.0-4.9 94-Icf-778518:44 JOANNA (ANTINUCLEAR ANTIBODY) Comments: PATIENT WAS FASTINGPERFORMED BY: [facility] [id number] (46856) JOANNA Direct Negative (Normal) 22-Ymc-384219:44 LIPID PANEL (95778) Comments: PATIENT WAS FASTINGPERFORMED BY: [facility] [place] [id number] LDL Cholesterol Calc 140 mg/dL (Abnormal) Range: 0-99 LDL/HDL Ratio 1.8 {ratio_units} (Normal) Range: 0.0-3.2 HDL Cholesterol 77 mg/dL (Normal) Comments: According to ATP-III Guidelines, HDL-C >59 mg/dL is considered anegative risk factor for CHD. VLDL Cholesterol Hector 19 mg/dL (Normal) Range: 5-40 Triglycerides 97 mg/dL (Normal) Range: 0-149 Cholesterol, Total 236 mg/dL (Abnormal) Range: 100-199 :44 TSH (31239) Comments: PATIENT WAS FASTINGPERFORMED BY: [facility] IONorthern Navajo Medical CenterMmlozi8352 [facility] [id number] TSH 1.670 {uIU/mL} (Normal) Range: 0.450-4.500 :44 URINALYSIS, W/ MICRO (39052) Comments: PATIENT WAS FASTINGPERFORMED BY: [facility] Clare6370 [facility] [id number] Microscopic Examination See below: (Normal) Bilirubin Negative (Normal) Ketones Negative (Normal) Nitrite, Urine Negative (Normal) Occult Blood 1+ (Abnormal) Urobilinogen,Semi-Qn 0.2 mg/dL (Normal) Range: 0.0-1.9 Glucose Negative (Normal) Protein Negative (Normal) Appearance Clear (Normal) pH 7.0 (Normal) Range: 5.0-7.5 Urine-Color Yellow (Normal) WBC Esterase Negative (Normal) Specific [place] 1.016 (Normal) Range: 1.005-1.030 :44 MICROALBUMIN: CREATININE RATIO Comments: PATIENT WAS FASTINGPERFORMED BY: [facility] IOMatheny Medical and Educational CenterKzfuby2241 [facility] [id number] (35236) AND (72843) Microalb/Creat Ratio 2.8 {mg/g_creat} (Normal) Range: 0.0-30.0 Creatinine, Urine 61.0 mg/dL (Normal) Range: 15.0-278.0 Microalbumin, Urine 1.7 ug/mL (Normal) Range: 0.0-17.0 :44 METABOLIC PANEL, COMPREHENSIVE Comments: PATIENT WAS FASTINGPERFORMED BY: [facility] Clare6370 [facility] [id number] (47896) ALT (SGPT) 16 [iU]/L (Normal) Range: 0-40 [...] Glucose, Serum 92 mg/dL (Normal) Range: 65-99 95-Dvl-353229:44 CBC WITH MANUAL DIFF Comments: PATIENT WAS FASTINGPERFORMED BY: LabCoMatheny Medical and Educational CenterEgqguu7539 [facility] [id number] Information: [id number] (79541) Immature Grans (Abs) 0.0 {x10E3/uL} (Normal) Range: [...] 3.80-5.10 WBC 6.1 {x10E3/uL} (Normal) Range: 4.0-10.5 48-Cdq-838778:11 [facility] DIGITAL & CAD Radiology Report See Note (Normal) Comments: Exam Number: [id number] MAMMOGRAPHY - BILATERAL SCREENING INDICATION:Routine annual screening [...] of attaching a ResultCode to this exam.ADDENDUM: [id number] HPBI/MDS Reported By: ELEANOR ERNANDEZ M.D. 9-Ykw-635806:01 TSH (71229) Comments: PATIENT NOT FASTINGPERFORMED BY: [facility] Zshjyj1474 [facility] [id number] Information: [id number] TSH 0.474 {uIU/mL} (Normal) Range: 0.450-4.500 16-Apr-20108:21 Thin prep Pap (48600) Comments: of cuff, has had hysterectomy; Source.............VaginalLMP / Prev Treat...HystNo. of containers..01 CYTYC Thin Prep VialPATIENT NOT FASTINGPERFORMED BY: [facility] [address] [id number] Information: [id number] Note: PAPSMR (Normal) Comments: The Pap smear [...] hysterectomy.V72.31 ; Routine gynecological exami Davion Mosley [employer] (ASCP) 38-Giu-538896:57 ABDOMEN/PELVIS W/WO CONTRAST Radiology Report See Note (Normal) Comments: Exam Number: [id number] CLINICAL:Hydronephrosis CT ABDOMEN AND PELVIS WITHOUT / [...] theright-sided hydronephrosis. Reported By: SAVANA AVELAR M.D. 5-Jab-185865:44 Urinalysis, Office (30989) UA - LEUKOCYTE ESTERASE Negative (Normal) UA - NITRITE Negative (Normal) URINE UROBILINGN REYNA TIMED Normal mg/dL (Normal) UA - PROTEIN Negative mg/dL (Normal) UA - PH 6.5 (Normal) UA - BLOOD Hemolyzed Trace (Normal) UA - SPECIFIC GRAVITY 1.010 (Normal) UA - KETONES Negative mg/dL (Normal) UA - BILIRUBIN Negative (Normal) UA - GLUCOSE Negative (Normal) 98-Pcq-713348:45 KIDNEY (HP) Radiology Report See Note (Normal) Comments: Exam Number: [id number] CLINICAL:The patient is a 69-year-old female who [...] no hydronephrosis Reported By: ELEANOR ERNANDEZ M.D. 48-Ueb-325798:14 BMP BUN/CRE 17.8 {RATIO} (Normal) Range: 10-20 [...] (Normal) GLU 90 mg/dL (Normal) Range: 70-110 30-Dss-301803:52 Iron and TIBC Comments: PATIENT NOT FASTINGPERFORMED BY: [facility] Vcjsfc5607 [facility] [id number] Iron Saturation 21 % (Normal) Range: 15-55 Iron, Serum 55 ug/dL (Normal) Range: 35-155 UIBC 202 ug/dL (Normal) Range: 150-375 Iron Bind.Cap.(TIBC) 257 ug/dL (Normal) Range: 250-450 27-Cnb-974261:52 Renal function Panel (53685) Comments: PATIENT NOT FASTINGPERFORMED BY: [facility] IO Dorwso2015 [facility] [id number] Albumin, Serum 3.7 g/dL (Normal) Range: 3.5-4.8 [...] Glucose, Serum 91 mg/dL (Normal) Range: 65-99 13-Xcf-278611:52 Ferritin (35260) Comments: PATIENT NOT FASTINGPERFORMED BY: [facility] Yvkdbc9924 [facility] [id number] Ferritin, Serum 338 ng/mL (Abnormal) Range: 13-150 :52 CBC with manual diff Comments: PATIENT NOT FASTINGPERFORMED BY: [place] 1301470 [facility] [id number] Information: [id number] (16324) Baso (Absolute) 0.0 {x10E3/uL} (Normal) Range: 0.0-0.2 [...] 3.80-5.10 WBC 7.9 {x10E3/uL} (Normal) Range: 4.0-10.5 44-Wbd-743567:20 TSH (14394) Comments: PATIENT NOT FASTINGPERFORMED BY: [facility] [id number] TSH 0.830 {uIU/mL} (Normal) Range: 0.450-4.500 38-Cmu-689806:20 CBC with manual diff Comments: PATIENT NOT FASTINGPERFORMED BY: LabCoFrank [facility] 2789270 [facility] [id number] Information: [id number] (27068) Hematology Comments: Note: (Normal) Comments: Verified by [...] 3.80-5.10 WBC 21.6 {x10E3/uL} (Abnormal) Range: 4.0-10.5 08-Oaw-025487:58 Serum Protein Comments: PATIENT NOT FASTINGPERFORMED BY: LabCoMatheny Medical and Educational CenterPtdbee9129 [facility] [id number] Information: ADD [id number] NO DRAW FEE Electrophoresis (SPEP) (93330) A/G Ratio 1.6 (Normal) Range: 0.7-2.0 Please note: SPRCS (Normal) Comments: Protein electrophoresis scan will follow via computer, mail, orcourier delivery. Xdhno-0-Tudcuazp 0.2 g/dL (Normal) Range: 0.1-0.4 Nvppr-3-Xneqegdd 0.6 g/dL (Normal) Range: 0.4-1.2 Beta Globulin 0.9 g/dL (Normal) Range: 0.6-1.3 Gamma Globulin 0.9 g/dL (Normal) Range: 0.5-1.6 Globulin, Total 2.6 g/dL (Normal) Range: 2.0-4.5 M-Slim Not Observed g/dL (Normal) Albumin 4.2 g/dL (Normal) Range: 3.2-5.6 Protein, Total, Serum 6.8 g/dL (Normal) Range: 6.0-8.5 48-Zpu-945593:58 VITAMIN B-12 (CYANOCOBALAMIN) Comments: PATIENT NOT FASTINGPERFORMED BY: [facility] Emgact5971 [facility] [id number] (32261) Vitamin B12 300 pg/mL (Normal) Range: 211-911 41-Opo-411593:58 SED RATE ERYTHROCYTE (68704) Comments: PATIENT NOT FASTINGPERFORMED BY: DamballaNorthern Navajo Medical CenterRarian9463 [facility] [id number] Sedimentation Rate-Westergren 2 mm/h (Normal) Range: 0-30 24-Kdq-065044:20 CBC With Differential/Platelet Comments: PATIENT WAS FASTINGPERFORMED BY: [facility] Kfbkoj1398 [facility] [id number] Baso (Absolute) 0.1 {x10E3/uL} (Normal) Range: 0.0-0.2 [...] 3.80-5.10 WBC 5.4 {x10E3/uL} (Normal) Range: 4.0-10.5 28-Jva-086487:20 Comp. Metabolic Panel (14) Comments: PATIENT WAS FASTINGPERFORMED BY: LabCoMatheny Medical and Educational CenterIssddd9795 [facility] [id number] ALT (SGPT) 19 [iU]/L (Normal) Range: 0-40 [...] With LDL/HDL Comments: PATIENT WAS FASTINGPERFORMED BY: [facility]70 [facility]istAn[facility] [id number] Ratio HDL Cholesterol 66 mg/dL (Normal) Comments: [...] 1.050 {uIU/mL} Comments: PATIENT WAS FASTINGPERFORMED BY: [employer]70 [facility] [id number] :20 (Normal) Range: 0.450-4.500 :50 CBCD,SMEAR DIFF [...] 47-70 WBC 6.7 K/mm3 (Normal) Range: 4.4-11.0 04-Nxz-45272:50 COMP METABOLIC A/G 1.1 {RATIO} (Normal) Range: [...] Report See Note (Normal) Comments: Exam Number: [id number] MAMMOGRAM, BILATERAL SCREENING DIGITAL AND CAD HISTORYRoutine [...] mammograms werealso examined with computer-aided detection software ([employer], [employer], [employer] Reported By: ELEANOR ERNANDEZ M.D. :28 CBCD,SMEAR [...] 47-70 WBC 5.4 K/mm3 (Normal) Range: 4.4-11.0 80-Eel-16002:28 COMP METABOLIC A/G 1.2 {RATIO} (Normal) Range: [...] :28 TSH 0.38 {uIU/mL} (Normal) Range: 0.34-4.82 [id number]-Rbi-[id number]:04 Rapid Strep Test, Office ([id number]) Rapid Strep Test, Office Negative (Normal) [id number]-[id number]:34 BILAT SCRN DIGITAL & CAD Radiology Report See Note (Normal) Comments: Exam Number: [id number] MAMMOGRAM, BILATERAL SCREENING DIGITAL AND CAD HISTORYRoutine [...] mammograms werealso examined with computer-aided detection software ([employer], [employer] Reported By: ELEANOR ERNANDEZ M.D. [id number]:31 DEXA BONE DENSITY STUDY () Radiology Report See Note (Normal) Comments: Exam Number: [id number] BONE DENSITOMETRY HISTORYPostmenopausal. TECHNIQUE Bone densitometry of [...] withinnormal limits. Reported By: ELEANOR ERNANDEZ M.D. 11-Eqi-606436:39 COMP METABOLIC A/G 1.1 {RATIO} (Normal) Range: [...] : Follow up in 3 months with [facility] Indication: Hypertensive heart disease Hematuria, unspecified : [...] Gen Med in Sep 2010 make apt [facility] per pt request Indication: Hydronephrosis Hydronephrosis : Follow up for well woman with [facility] per pt request Indication: Hydronephrosis Anemia : FOLLOW UP IN 2 WEEKS January 07 by [facility] Indication: Anemia Abdominal pain, acute, generalized : FOLLOW UP IN 1 WEEK with [facility] Indication: Abdominal pain, acute, generalized Diarrhea : [...] Indication: Bronchitis Planned Observations Metabolic Panel, Comprehensive ([id number])Indication: Hypercholesterolemia On: 7-Fjv-176971:52 Request Comments: Jun 2018 LIPID PANEL ([id number])Indication: Hypercholesterolemia On: 9-Zjy-875242:51 Request Comments: Jun 2018 URINALYSIS ([id number])Indication: Hypertension, essential, benign On: 04-Pkw-088812:52 Request MICROALBUMIN: CREATININE RATIO (72950) AND ([id number])Indication: Hypertension, essential, benign On: 36-Iug-049353:52 Request Metabolic Panel, Comprehensive ([id number])Indication: Hypertension, essential, benign On: 86-Mhb-271944:50 Request Comments: send to [facility] CBC, Platelets & Auto Diff ([id number])Indication: Hypertension, essential, benign On: 66-Lec-777666:50 Request Comments: send to [facility] TSH (25085)Indication: Hypothyroidism On: 39-You-207784:50 Request Comments: send to [facility] LIPID PANEL (85758)Indication: Hypercholesterolemia On: 00-Wib-917194:50 Request Comments: send to [facility] URINALYSIS (35985)Indication: Hypertension, essential, benign On: 8-Yyl-636719:03 Request Comments: today MICROALBUMIN: CREATININE RATIO (72843) AND (29491)Indication: Hypertension, essential, benign On: 0-Ijg-176691:03 Request Comments: today TSH (25457)Indication: Hypothyroidism On: 2-Rfq-610574:03 Request Comments: Jul 2017 MICROALBUMIN: CREATININE RATIO (93318) AND (42901)Indication: Hypertension, essential, benign On: 34-Jkf-763078:51 Request Comments: Mar 2017 URINALYSIS ([id number])Indication: Hypertension, essential, benign On: 21-Ovj-786488:51 Request Comments: Mar 2017 TSH (03706)Indication: Hypertension, essential, benign On: 77-Smu-356383:51 Request Comments: Mar 2017 CBC, Platelets & Auto Diff (81376)Indication: Hypertension, essential, benign On: 48-Nqs-109658:51 Request Comments: Mar 2017 Metabolic Panel, Comprehensive (07973)Indication: Hypertension, essential, benign On: 95-Ngl-864265:51 Request TSH (THYROID STIMULATING HORMONE) (23515)Indication: Hypothyroidism On: 05-Jai-193008:53 Request HEPATIC FUNCTION PANEL (20285)Indication: Hypertension, essential, benign On: 28-Mga-605042:47 Request VITAMIN B12 AND FOLATES (45099)Indication: Vitamin B 12 deficiency On: 9-Jrm-077486:52 Request CALCIFEDIOL (53663)Indication: DEFICIENCY, VITAMIN D NOS On: 5-Oto-622669:52 Request Urinalysis, Office (05462)Indication: Hematuria, unspecified On: 27-Qey-286930:35 Request MICROALBUMIN URINE QUANT ([id number])Indication: Hypertensive heart disease On: 66-Thb-748871:25 Request FECAL OCCULT HGB ASSAY- tubes sent home (97250)Indication: Well woman exam On: 7-Jgf-787751:51 Request OCCULT BLOOD FECES SCREEN- card done in office (73043)Indication: Well woman exam On: 5-Evg-873407:51 Request Renal function Panel (16602)Indication: Hydronephrosis On: 9-Wby-818095:22 Request Iron (56113)Indication: Anemia On: 56-Vzh-553965:39 Request Iron Binding Capacity (TIBC) (93109)Indication: Anemia On: 81-Aaf-322854:39 Request OVA & PARASITE DIR SMEAR (43573)Indication: Diarrhea On: 10-Ytz-436839:50 Request OCCULT BLOOD FECES SCREEN (94158)Indication: Diarrhea On: 51-Ymo-073479:50 Request LEUKOCYTE COUNT, FECAL (60318)Indication: Diarrhea On: 61-Pcp-036443:50 Request C-DIFFICILE, STOOL (14133)Indication: Diarrhea On: 98-Nev-900545:50 Request LORNA CULTURE-STOOL (00889)Indication: Diarrhea On: 12-Acr-784002:50 Request HEPATIC FUNCTION PANEL (17028)Indication: Hypercholesterolemia On: 93-Lak-045974:46 Request Lipid Panel (52012)Indication: Hypercholesterolemia On: 19-Mko-549273:46 Request Comments: in three months (approximately) TSH (28865)Indication: Hypothyroidism On: 52-Jgo-068378:06 Request METABOLIC PANEL, COMPREHENSIVE (30654)Indication: Hypertensive heart disease On: 90-Mqm-033569:06 Request LIPID PANEL ([id number])Indication: Hypertensive heart disease On: 81-Jen-067620:06 Request CBC WITH MANUAL DIFF (34157)Indication: Hypertensive heart disease On: 38-Nck-769915:06 Request LORNA CULTURE-OTHER (38037)Indication: Pharyngitis, acute On: 4-Guo-408058:04 Request CBC (Auto) (57254)Indication: Hypercholesterolemia On: 73-Svr-30523:13 Request Lipid Panel (22720)Indication: Hypercholesterolemia On: :13 Request Metabolic Panel, Comprehensive (34205)Indication: Hypercholesterolemia On: 85-Cid-88809:13 Request Comments: in six months (approximately) TSH (17248)Indication: Hypothyroidism On: 33-Ujf-819280:06 Request LIPID PANEL (45295)Indication: Hypertension On: 16-Hrf-751265:01 Request Planned Encounters Medical; 3 Month FU - On: 14-Jun-2018 10:45 [facility] Sarai Bro CNP, CNP, Mary E Planned Procedures Flu Vaccine (Quadrivalent) On: 02-Jun-2018 Intent 00877Zn: Sarai Bro CNP Comments: Lot #[id number]/30/2019Site-L dltd, IMDose prefilled syringegiven by: SHARONDA CHOINVIS reviewed and ABN signed Sarai Bro CNP MAMMOGRAM BREAST BILATERAL On: 27-May-2018 Intent SCREENING DIGITAL ([id number])By: Sarai Bro CNP, CNP, Mary E Radiology - Femur - RightBy: On: 02-Mar-2018 Intent Sarai Bro CNP, CNP, Mary E DEXA SCAN AXIAL SKELETON On: 19-Oct-2017 Intent (60966)By: Sarai Bro CNP, CNP, Mary E Aerosol Treatment (07875)By: On: 07-Sep-2017 Intent Kelly Naqvi Comments: Lungs clear after aerosol treatment Flu Vaccine (Quadrivalent) On: 13-Apr-2017 Intent 47332Dk: Giselle Silva LPN Comments: InfluenzaLot #[id number]-/18/18Site-L dltd, IMDose prefilled syringeVIS and ABN signedgiven by:ROSA MARIA cade MAMMOGRAM BREAST BILATERAL On: 05-Jan-2017 Intent SCREENING DIGITAL (75593)By: Comments: after Apr 24 2017 Sarai Bro CNP, CNP, Mary E DEXA SCAN AXIAL SKELETON On: 05-Jan-2017 Intent (34215)By: Sarai Bro CNP Comments: After Apr 24 2017 Sarai Bro CNP Flu Vaccine (Quadrivalent) On: 06-Jul-2016 Intent 96757Di: Giselle Silva LPN Comments: InfluenzaLot #Lot [id number]/30/17Site-L dltd, IMDose prefilled syringeVIS and ABN signedgiven by:ROSA MARIA cade MAMMOGRAM, SCREENING, BOTH On: 31-Mar-2016 Intent BREAST ([id number])By: Sarai Bro CNP, CNP, Mary E MAMMOGRAM, SCREENING, BOTH On: 17-Feb-2016 Intent BREAST (36421)By: Sarai Bro CNP, CNP, Mary E PHYSICAL THERAPY EVALUATION On: 28-Jan-2016 Intent (71747)By: Sarai Bro CNP, CNP, Mary E PHYSICAL THERAPY EVALUATION On: 28-Jan-2016 Intent (32837)By: Sarai Bro CNP, CNP, Mary E Toradol Injection, 30 mg On: 28-Jan-2016 Intent ([id number])By: Roccoyin CARNEYSaari CNP, Mary E Radiology - Lumbar SpineBy: On: 28-Jan-2016 Intent Sarai Bro CNP, CNP, Mary E Radiology - Knee - LeftBy: On: 28-Jan-2016 Intent Sarai Bro CNP, CNP, Mary E Aerosol Treatment (59427)By: On: 24-Dec-2015 Intent Sarai Bro CNP, CNP, Mary E Flu Vaccine (Quadrivalent) On: 10-May-2015 Intent 89499Lv: Hang ANGELIKA Sarai Moon Comments: Lot:[id number]:02/06/16Dose:0.5mLRoute:IMSite:L DltdGiven By:Kacie signed Hang ANGELIKA Sarai Moon DEXA SCAN AXIAL SKELETON On: 19-Mar-2015 Intent (27453)By: Hang CARNEY Sarai Busby CNP MAMMOGRAM, SCREENING, BOTH On: 11-Feb-2015 Intent BREAST ([id number])By: Hang ANGELIKASarai CNP, Mary E DEXA SCAN AXIAL SKELETON On: 11-Feb-2015 Intent (25655)By: Roccoyin CARNEYSarai CNP, Mary E Solu -Medrol Injection, 125 On: 25-Jul-2014 Intent mg (J2930)By: Hang CARNEY, Comments: [id number] 5.17right gm125 mgas, PLACEMENT MANAGER Sarai Busby CNP Aerosol Treatment (02379)By: On: 25-Jul-2014 Intent Sarai Bro CNP, CNP, Mary E Toradol Injection, 30 mg On: 18-Jul-2014 Intent ([id number])By: Roccoyin CARNEYSarai CNP, Mary E Radiology - Lumbar SpineBy: On: 18-Jul-2014 Intent Sarai Bro CNP, CNP, Mary E Radiology - Hip - RightBy: On: 18-Jul-2014 Intent Sarai Bro CNP, CNP, Mary E Prevnar 13 (96786)By: Ricardo On: 16-Jul-2014 Intent Giselle CRANE Comments: [id number] arm, IMAS Bone Density StudyBy: Hang On: 15-May-2014 Intent Sarai CARNEY CNP, Mary E ADMINISTRATION OF INFLUENZA On: 15-May-2014 Intent VIRUS VACCINE (G0008)By: Tiffaniewojciechyin CARNEY Sarai Bro CNP Sarai Moon FLU VAC, SPLIT, >3 YEARS, On: 15-May-2014 Intent INTRAMUSC (55460)By: Hang Comments: Lot:[id number]/24Dose:0.5mLRoute:IMSite:L DltdGiven By:FIDENCIO signed Saari CARNEY CNP Sarai Moon SPECIMEN HNDLNG/TRNSPRT, OFFC On: 22-Mar-2014 Intent > LAB (37499)By: Hang CARNEY Sarai Bro CNP Sarai Moon BILATERAL MAMMOGRAMS On: 18-Dec-2013 Intent ([id number])By: Hang CARNEY Sarai Bro ANGELIKA Sarai Moon Aerosol Treatment (75490)By: On: 22-Sep-2013 Intent Roccoyin CARNEY Sarai Bro CNP Sarai Moon Wax CurettesBy: Roccoyin ANGELIKA, On: 22-Sep-2013 Intent Sarai Busby CNP Ear Irrigation ([id number])By: On: 22-Sep-2013 Intent Sarai Bro CNP, CNP, Mary E Eprescribed prescriptions On: 18-Aug-2013 Intent (G8553)By: Lucrecia Vargas Eprescribed prescriptions On: 05-May-2013 Intent (G8553)By: Hang CARNEY Sarai Bro CNP Sarai Moon ADMINISTRATION OF INFLUENZA On: 05-May-2013 Intent VIRUS VACCINE (G0008)By: Comments: lot # [id number]- 6.2014site- L dltdroute-IMdose- 0.5mlRICHARD and ROMEL signedPenny Hauser LPN, LPN FLU VAC, SPLIT, >3 YEARS, On: 05-May-2013 Intent INTRAMUSC (87618)By: Penny Irving LPN MAMMOGRAM, SCREENING, BOTH On: 16-Dec-2012 Intent BREASTS (17913)By: Hang CARNEY Sarai Moon Ciesyin CARNEY Rianna Spirometry (12592)By: Aristides On: 16-Dec-2012 Intent Penny CRANE Comments: mild airway obstruction Aerosol Treatment (16521)By: On: 30-Mar-2012 Intent Hang CARNEY RiannaRed Bro CNP Rianna PFT - CompleteBy: Hang CARNEY, On: 01-Mar-2012 Intent Rianna Ciwojciechyin CARNEY Rianna Inhaler Demonstration On: 28-Dec-2011 Intent ([id number])By: Hang CARNEY RiannaRed Bro CNP Rianna Pulse Oximetry (38023)By: On: 28-Dec-2011 Intent Tiffaniewojciechyin CARNEY Sarai Moon Tiffaniebonita ANGELIKA Rianna Eprescribed prescriptions On: 22-Apr-2011 Intent (G8553)By: Hang CARNEY RiannaRed Bro CNP Rianna Eprescribed prescriptions On: 21-Oct-2010 Intent (G8553)By: Hang CARNEY Rianna Ciwojciechyin CARNEY Rianna Eprescribed prescriptions On: 21-Oct-2010 Intent (G8553)By: Hang CARNEY Rianna Ciwojciechyin CARNEY Rianna MAMMOGRAM, SCREENING, BOTH On: 15-Apr-2010 Intent BREASTS (10127)By: Hang CARNEY RiannaRed Bro CNP Rianna Ultrasound - RenalBy: Hang On: 23-Dec-2009 Intent ANGELIKA RiannaRed Bro CNP Rianna Comments: To be done on December 30 CT - Abdomen & Pelvis (IV On: 17-Dec-2009 Intent Contrast Needed)By: Hang CARNEY RiannaRed Bro CNP Rianna ADMINISTRATION OF INFLUENZA On: 22-May-2009 Intent VIRUS VACCINE (G0008)By: Karina Nina LPN FLU VAC, SPLIT, >3 YEARS, On: 22-May-2009 Intent INTRAMUSC (15736)By: Kelle Comments: Lot #[id number] deltoidgiven by:Karina PLAZA LPN Pulse Oximetry (52652)By: On: 25-Sep-2008 Intent PRESTON Thompson ADMINISTRATION OF INFLUENZA On: 13-Jun-2008 Intent VIRUS VACCINE (G0008)By: Comments: lot #[id number] exp- 01/15site-left delroute-imdose- 0.5 Penny Irving LPN FLU VAC, SPLIT, >3 YEARS, On: 13-Jun-2008 Intent INTRAMUSC (97742)By: Penny Irving LPN MAMMOGRAM, SCREENING, BOTH On: 28-May-2008 Intent BREASTS (28545)By: Susan Lee MD Bio Z (20657)By: Rosa CHRISTIANSEN, On: 28-Nov-2007 Intent Susan Sánchez SPECIMEN HNDLNG/TRNSPRT, OFFC On: 12-Oct-2007 Intent > LAB ([id number])By: Tyesha Ramos DO Bone Density StudyBy: Rosa On: 18-Feb-2007 Intent Susan CHRISTIANSEN Comments: ache in back MAMMOGRAM, SCREENING, BOTH On: 18-Feb-2007 Intent BREASTS (34442)By: Susan Lee MD Bio Z (22621)By: Rosa CHRISTIANSEN, On: 20-Jul-2006 Intent Susan Sánchez Planned Medications INJECTION, KETOROLAC TROMETHAMINE, PER 15 MG Ordered: 18-Jul-2014 Pending Ciesa RECRUITER MANAGER, Rianna Ciesa RECRUITER MANAGER, Rianna INJECTION, KETOROLAC TROMETHAMINE, PER 15 MG Ordered: 28-Jan-2016 Pending Ciesa RECRUITER MANAGER, Rianna Ciesa RECRUITER MANAGER, Rianna INJECTION, METHYLPREDNISOLONE SODIUM SUCCINATE, UP TO 125 MG Ordered: 25-Jul-2014 Pending Ciesa RECRUITER MANAGER, Rianna Ciesa RECRUITER MANAGER, Rianna Instructions Name Dates Details Nonsmoker : [...] The patient does have durable power of commercial litigation attorney and living will. The patient has noticed nothing from the geriatic depression scale. Other providers contributing to the katty ent's care are servicer coin machines (Dr paz ), advanced manager (Dr aVzquez ), urologist (Dr Pope ) and other: [...]
--- OUTSIDE RECORDS SUMMARY | 2018-09-02 07:01 | XMS RPT_ITS | Continuity of Care Document ---
:1940 Author Organization [facility] Address [address] [facility] [address] [place] [address] Phone Care Team Providers Name Role Phone Tiffaniebonita ANGELIKA, Rianna Unavailable Amanda CHRISTIANSEN, Higinio Longoria Unavailable Turner CHRISTIANSEN, Nahun Plaza Unavailable [facility], Eugenie Tovar Unavailable Rosa CHRISTIANSEN, Susan [...] : 18-Aug-2013 End : 28-Aug-2013 Inactive DRISDOL, [id number] (Oral Capsule) 1 Capsule twice weekly for [...] for 0 days Refills: 0 Ordered:31-Mar-2010 Aristides TOOL DESIGN CHECKER, ChrissieInactive LEVSIN/SL, 0.125MG (Sublingual Tablet Sublingual) Tab [...] Quantity: 21 {Tablet} Refills: 0 Ordered:15-Nov-2017 Hang OVERLOCK SLEEVE SETTER, Sarai Malka OVERLOCK SLEEVE SETTER, Rianna Start : 15-Nov-2017 End : 22-Nov-2017 [...] Quantity: 60 {Capsule} Refills: 0 Ordered:10-May-2015 Slarb TOOL DESIGN CHECKERGiselle Benson Start : 22-Apr-2011 End : 10-May-2015 [...] Lower Extremity Result: Comments: See Note; NOTES: [facility] Cardiovascular Services [address] [place] [address] Venous Duplex US - Paulie Extrem 04/07/18 1000 MR#: [id number] Acct: [id number] Name: VALERIE CRAIN Rep #: [id number] : 1940 77 From: Higinio Patel MD [...] Date Higinio Patel MD CC: Sarai Bro TRY OUT PERSON; Higinio Patel MD Date Dictated: 04/07/18 1000 Date Transcribed: 04/08/18 160 Marine Propulsion Technician: Signed 02-Mar-2018 Femur Min 2 Views Result: Comments: See Note; NOTES: [facility] Imaging Services [address] [place] [address] Femur Min 2 Views MR#: [id number] Acct: [id number] Name: VALERIE CRAIN Rep #: [id number] : 1940 F 77 From: Christiano Croft MD PCP: Sarai Bro NP Status: REG CLI Study: Femur Min 2 Views Date of Exam: 03/02/18 Exam# [id number] Ordering Dr: Sarai Bro STUDY: X-RAY - [...] vice support , CC: Sarai Bro NP Marine Propulsion Technician: Signed 10-Feb-2018 Echocardiogram Complete Result: Comments: See Note; NOTES: [facility] Cardiovascular Services [address] [place] [address] Echo Complete 02/10/18 1100 MR#: [id number] Acct: [id number] Name: VALERIE CRAIN Rep #: [id number] : 1940 77 From: Amilcar Paz MD Attending Dr: Jennifer Goodwin Status: REG CLI Ordering Dr: Jennifer Goodwin Date: 02/10/18 Location: [facility] Sex: F C Admitted: [facility] For Study: DYSPNEA Procedure This [...] Date Amilcar Paz MD CC: Sarai Bro TRY OUT PERSON; Jennifer Goodwin Date Dictated: 02/10/18 1100 Date Transcribed: 02/10/18 1241 Marine Propulsion Technician: Signed 28-Jan-2018 Cardiology Visit Report Result: Comments: See Note; NOTES: [facility] [place] [address] OFFICE VISIT Date of Service: 01/28/18 MR#: [id number] Acct: [id number] Name: VALERIE CRAIN Rep #: [id number] : 1940 Provider: Jennifer Goodwin Age/Sex: 77/F [place] [facility] Status: Signed HPI HPI Details: [...] for her age. 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 She does have [...] valve disorder (Chronic) Paroxysmal atrial fibrillation (Chronic) penitentiary (current) use of anticoagulants (Chronic) Benign essential HTN (Chronic) Surgical History History of appendectomy (Resolved) H/O mitral valve repair (Chronic) Family History Father Decea sed, age 48 from [place] CAD (coronary artery disease) Sudden cardiac Myocardial [...] prior to saving. 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 This patient may have a combination of pa per and electronic documentation or all paper documentation. All documentation is viewable within the e-chart portion of [employer] for each patient visit. 09-Nov-2017 Dexa Bone Density Study Result: Comments: See Note; NOTES: [facility] Imaging Services [address] [place] [address] Dexa Bone Density Study MR#: [id number] Acct: [id number] Name: VALERIE CRAIN Rep #: [id number] : 1940 F 77 From: Henry Jones MD PCP: Sarai Bro NP Status: REG CLI Study: Dexa Bone Density Study Date of Exam: 11/09/17 Exam# [id number] Ordering Dr: Sarai Bro STUDY: DUAL E [...] Henry Jones MD at 13:40 EDT Tel [phone], Service support , CC: Sarai Bro NP Marine Propulsion Technician: Signed 27-Jul-2017 Cardiology Visit Report Result: Comments: See Note; NOTES: [facility] 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 (Chronic) Benign essential HTN (Chronic) Dyslipidemia (Chronic) mitral maria m vuplasty (Chronic) Surgical History H/O mitral valve repair (Chronic) Family History Father , age 48 from [place] CAD (coronary artery disease) Sudden cardiac Myocardial [...] Signature: Date (if applicable) CC: Sarai Bro TRY OUT PERSON 17-May-2017 SCREENING MAMM (CAD), BILAT Result: Comments: See Note; NOTES: [facility] Imaging Services [address] [place] [address] SCREENING MAMM (CAD), BILAT MR#: [id number] Acct: [id number] Name: SEAN CRAIN Rep #: [id number] : 1940 F 76 From: Henry Jones MD PCP: Sarai Bro Status: REG CLI Study: SCREENING MAMM (CAD), BILAT Date of Exam: 05/17/17 Exam# [id number] Ordering Dr: Sarai Bro MAMMOGRAPH Y - [...] delay biopsy of a clinically suspicious abnormality. [id number] Electronically Signed: Henry Jones MD at 10:21 EDT Tel [phone], Service support , CC: Sarai Bro Marine Propulsion Technician: Signed 27-Feb-2017 Carotid Duplex Ultrasound Result: Comments: See Note; NOTES: [facility] Cardiovascular Services [address] [place] [address] Carotid Duplex Ultrasound 02/26/17 1046 MR#: [id number] Acct: [id number] Name: SEAN ABEBE Rep #: [id number] : 1940 76 From: Malcolm Hill MD Attending Dr: Jennifer Goodwin Status: REG CLI Ordering Dr: Jennifer Goodwin Date: 02/26/17 Location: [facility] Sex: F C Admitte d: Reason [...] Dictated: 02/26/17 1046 Date Transcribed: 02/27/17 1103 Marine Propulsion Technician: Signed 03-Sep-2016 Chest PA and Lateral Result: Comments: See Note; NOTES: [facility] Imaging Services [address] [place] [address] Verdana 4d Chest PA and Lateral MR#: [id number] Acct: [id number] Name: SEAN CRAIN Rep # : [id number] : 1940 F 76 From: Henry Jones MD PCP: Sarai Bro Status: REG CLI Study: Chest PA and Lateral Date of Exam: 09/03/16 Exam# [id number] Ordering Dr: Nahun Vazquez MD STUD Y: [...] Henry diop MD at 12:41 EST Tel [phone], Service support [phone], CC: Sarai Bro; Nahun Vazquez MD Marine Propulsion Technician: Signed 28-Aug-2016 Echocardiogram Complete Result: Comments: See Note; NOTES: [facility] Cardiovascular Services [address] [place] [address] Echo Complete 08/28/16 1003 MR#: [id number] Acct: [id number] Name: SEAN CRAIN p #: [id number] : 1940 76 From: Amilcar Paz MD Attending Dr: Jackson CHRISTIANSEN,Amilcar Status: REG CLI Ordering Dr: Amilcar Paz MD Date: 08/28/16 Location: [facility] Sex: F C Admitted: Reason For Study: AT [facility] Procedure This was a 2D [...] Dictated: 08/28/16 1003 Date Transcribed: 08/28/16 1225 Marine Propulsion Technician: Signed 24-Apr-2016 Bilat Scrn Digital AND CAD Result: Comments: See Note; NOTES: [facility] Imaging Services [address] [place] [address] Verdana 4d Bilat Scrn Digital AND CAD MR#: [id number] Acct: [id number] Name: BREANNSEAN Rep #: [id number] : 1940 F 75 From: Henry Jones MD PCP: Sarai Bro Status: REG CLI Study: Jero Edwards Digital AND CAD Date of Exam: 04/24/16 Exam# [id number] Ordering Dr: Sarai Bro MAMMOGRAPHY - BILATERAL [...] significant change since the prior study. ___ [facility]/Jero Edwards Digital AND CAD IMPRESSION: Stable bilateral screening mammogram. Yearly follow-up mammogram recommended. (A) ASSESSMENT CATEGORY: BIRADS Category 1: Negative. A letter regarding these results will be sent to the patient by the facility within 30 days. Approximately 10% of breast cancers are n ot detected by mammography. A normal mammogram should not delay biopsy of a clinically suspicious abnormality. [id number] Electronically Signed: Henry Jones MD at 10:58 EDT Tel [phone], Service support [phone], CC: Sarai Bro Marine Propulsion Technician: Signed 04-Mar-2016 PT D/C Summary (1) Result: Comments: See Note; NOTES: [facility] Physical Therapy [facility] [address] [place] [address] Fax REHABILITATION SE [facility] DISCHARGE SUMMARY MR#: [id number] Acct: [id number] Name: SEAN CRAIN Rep #: [id number] : 1940 75 From: Giselle NELSON Referring [...] please feel free to call me at [phone]. Thank you for the referral of this patie nt. Sincerely, Giselle Yan <Electronically signed by Giselle Yan MPT> 03/04/161916 CC: Sarai Bro Signed 04-Feb-2016 Inital Evaluation (1) - PT Result: Comments: See Note; NOTES: [facility] [address] [facility] [facility] [place] [address] Fax REHABILITATION [facility] INITIAL EVALUATION MR#: [id number] Acct: [id number] Name: SEAN CRAIN Rep #: [id number] : 1940 75 From: Giselle Yan MPT Referring Dr.: Sarai Bro Status: REG RCR Insurance: MEDICARE PART A B [facility] Patient's Visit Information SEAN CRAIN is [...] to be FAXED BACK to us at [phone] for Medicare purposes . Please let me know if there are questions or concerns regarding this plan of care. Physician Signature: Date: <Electronical ly signed by Giselle Yan MPT> 02/04/16 1628 CC: Sarai Bro Signed For Medicare only, by signing this I certify the plan of care. Physicians Signature Date 28-Jan-2016 Knee 4 or More Views Result: Comments: See Note; NOTES: [facility] Imaging Services [address] [place] [address] Verdana 4d Knee 4 or More Views MR#: [id number] Acct: [id number] Name: SEAN DWYER Rep #: [id number] : 1940 F 75 From: Shreyas Beaver MD PCP: Sarai Bro Status: REG CLI Study: Knee 4 or More Views Date of Exam: 01/28/16 Exam# [id number] Ordering Dr: Sarai Bro STUDY: X-RAY - [...] MD at 19:39 EDT , Service support [phone], ORDER # : [id number] RAD/Knee 4 or More Views IMPRESSION: No acute abnormality. Mild degenerative changes. Electronically Signed: Shreyas Beaver MD at 19:39 EDT , Service sup port [phone], CC: Sarai Bro Marine Propulsion Technician: Signed 28-Jan-2016 L/S Spine Min 4 Views Result: Comments: See Note; NOTES: [facility] Imaging Services [address] [place] [address] Verdana 4d L/S Spine Min 4 Views MR#: [id number] Acct: [id number] Name: SEAN BERRIOS Rep #: [id number] : 1940 F 75 From: Shreyas Beaver MD PCP: Sarai Bro Status: REG CLI Study: L/S Spine Min 4 Views Date of Exam: 01/28/16 Exam# [id number] Ordering Dr: Shital Bro STUDY: X-RAY - [...] MD at 19:40 EDT , Service support [phone], Fax RAD/L/S Spine Min 4 Views IMPRESSION: No acute abnormality. Mild to moderate degenerative changes. Electronically Signed: Shreyas Beaver MD at 19:40 EDT T el [phone], Service support [phone], CC: Sarai Bro Marine Propulsion Technician: Signed 19-Mar-2015 Dexa Bone Density Study (HP) Result: Comments: See Note; NOTES: [facility] Imaging Services [address] [place] [address] Bone Density Report MR#: [id number] Acct: [id number] Name: SEAN CRAIN Rep #: [id number] : 1940 F 74 From: Henry Jones MD PCP: Sarai Bro Status: REG CLI Study: Dexa Bone Density Study (HP) Date of Exam: 03/19/15 Exam# [id number] Ordering Dr: Sarai Bro STUD Y: DUAL [...] Henry Jones MD at 14:35 EDT Tel [phone], Servic e support [phone], CC: Sarai Bro Marine Propulsion Technician: Signed 12-Mar-2015 Bilat Scrn Digital AND CAD Result: Comments: See Note; NOTES: [facility] Imaging Services [address] [place] [address] Breast Imaging Report MR#: [id number] Acct: [id number] Name: SEAN CRAIN Rep #: [id number] : 1940 F 74 From: Henry Jones MD PCP: Sarai Bro Status: REG CLI Study: Bilat Scrn Digital AND CAD Date of Exam: 03/12/15 Exam# [id number] Ordering Dr: Sarai Bro MAMM OGRAPHY - [...] Jones MD 23/03/04 at 9:59 EDT Tel [phone], Service support [phone], CC: Sarai Bro Marine Propulsion Technician: Signed 16-Jan-2015 Operative Report Result: Comments: See Note; NOTES: [facility] Medical Records Department [address] [place] [address] Operative Report MR#: [id number] Acct: [id number] Name: SEAN CRAIN Rep #: [id number] : 1940 74 From: Amilcar Paz MD [...] care. Amilcar Paz MD T: NTS JOB: [id number] 01/16/15 0901 <Electronically signed by Amilcar Paz MD&amp ;#62; Date Amilcar Paz MD CC: Sarai Bro; Amilcar Paz MD Date Dictated: 01/14/151318 Date Transcribed: 01/14/151318 Marine Propulsion Technician: Signed 15-Jan-2015 Consultation Result: Comments: See Note; NOTES: [facility] Medical Records Department [address] [place] [address] Consultation MR#: [id number] Acct: [id number] Name: SEAN CRAIN Rep #: [id number] : 1940 74 From: Armando Guerra MD [...] C C: Amilcar Bro T: NTS JOB: [id number] 01/15/15 0643 <Electronically signed by Armando Guerra MD> Date Armando Guerra MD CC: Sarai Bro; Armando Guerra MD; Amilcar Paz MD Date Dictated: 01/14/151356 Date Transcribed: 01/14/151356 Marine Propulsion Technician: Signed 07-Jan-2015 Chest PA and Lateral Result: Comments: See Note; NOTES: [facility] Imaging Services [address] [place] [address] Radiology Report MR#: [id number] Acct: [id number] Name: SEAN CRAIN Rep #: [id number] : 1940 F 74 From: Henry Jones MD PCP: Sarai Bro Status: PRE CLI Study: Chest PA and Lateral Date of Exam: 01/07/15 Exam# [id number] Ordering Dr: Amilcar Paz MD STUDY: X-RA [...] Henry Jones MD at 14:28 EDT Tel [phone], Service support [phone], RAD/Chest PA and Lateral IMPRESSION: Hyperinflation. No acute abnormality is seen. Electronically Signed: Henry Jones MD 2014 at 14:28 EDT Tel [phone], Service support [phone], CC: Sarai Bro; Amilcar Paz MD Marine Propulsion Technician: Signed 24-Dec-2014 Echocardiogram Complete Result: Comments: See Note; NOTES: [facility] Cardiovascular Services [address] [place] [address] Echo Complete 12/24/14 1003 MR#: [id number] Acct: [id number] Name: SEAN CRAIN Rep #: [id number] : 1940 74 From: Amilcar Paz MD Attending Dr: Jennifer Monroe Status: REG CLI Ordering Dr: Jennifer Monroe Date: 12/24/14 Location: [facility] Sex: F C Admitted: Pr raji [...] Jennifer Monroe Performed By: SANTA Banegas 12/24/14 8299 Date Amilcar Paz MD CC: Sarai Bro; Jennifer Monroe Date Dictated: 12/24/14 1003 Date Transcribed: 12/24/14 1359 Marine Propulsion Technician: Signed 19-Jul-2014 Hip min 2 Views Result: Comments: See Note; NOTES: [facility] Imaging Services [address] [place] [address] Radiology Report MR#: [id number] Acct: [id number] Name: SEAN CRAIN Rep #: [id number] : 1940 F 74 From: Henry Jones MD PCP: Sarai Bro Status: REG CLI Study: Hip min 2 Views Date of Exam: 07/19/14 Exam# [id number] Ordering Dr: Sarai Bro STUDY: X-RAY - [...] Henry Jones MD at 11:38 EST Tel [phone], Service support [phone], RAD/Hip min 2 Views IMPRESSION: Degenerative changes of the hip. Electronically Signed: Henry Jones MD at 11:38 EST Tel [phone], Service support [phone], CC : Sarai Bro Marine Propulsion Technician: Signed 19-Jul-2014 L/S Spine Min 4 Views Result: Comments: See Note; NOTES: [facility] Imaging Services [address] [place] [address] Radiology Report MR#: [id number] Acct: [id number] Name: SEAN CRAIN Rep #: [id number] : 1940 F 74 From: Henry Jones MD PCP: Sarai Bro Status: REG CLI Study: L/S Spine Min 4 Views Date of Exam: 07/19/14 Exam# [id number] Ordering Dr: Sarai Bro STUDY: X-RAY - [...] Henry Jones MD at 13:19 EST Tel [phone], Service support [phone], CC: Sarai Bro Marine Propulsion Technician: Signed 05-Jan-2014 Bilat Scrn Digital & CAD Result: Comments: See Note; NOTES: [facility] Imaging Services [address] [facility] [place] [address] Breast Imaging Report MR#: [id number] Acct: [id number] Name: SEAN CRAIN Rep #: [id number] : 1940 F 73 From: Henry Jones MD PCP: Status: [facility] CLI Exam# [id number] Ordering Dr: Sarai Bro MAMMOGRAPHY - BILATERAL [...] Henry Jones MD at 9:58 EDT Tel [phone], Service support [phone], CC: Sarai Bro; Amilcar Paz MD Marine Propulsion Technician: Signed Immunization Name Dates Details Influenza (3 years and up) on: 13-Jun-2008 Influenza (3 years and up) on: 22-May-2009 Comments: Lot #[id number] deltoidgiven by:CDH Family History Unknown Family Member Name Dates Details Father Comments: [place] at 48 & Status: Active Social History Name Dates Details Caffeine Use Comments: 2 cups coffee qd 1 soda qod Status: Active 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 Status: Inactive Tobacco use: Never smoker. Status: Inactive Vital Signs Date Test Result Details 48-Hon-501810:20 Temperature 99.4 f Comments: Method: Temporal Pulse [...] kg/m2 Body Surface Area Calculated 1.87 m2 4-Xln-121969:30 Temperature 97.7 f Comments: Method: Temporal Pulse [...] kg/m2 Body Surface Area Calculated 1.86 m2 67-Cke-074785:20 Temperature 98.2 f Pulse 67 /min Comments: [...] kg/m2 Body Surface Area Calculated 1.85 m2 50-Ouv-426629:44 Temperature 98 f Comments: Method: Oral Pulse [...] kg/m2 Body Surface Area Calculated 1.81 m2 42-Zyd-869864:30 Temperature 99.2 f Comments: Method: Oral Pulse [...] kg/m2 Body Surface Area Calculated 1.81 m2 52-Zhg-704733:39 Temperature 99 f Comments: Method: Oral Pulse [...] Value Details :18 Prothrombin Time w/INR Comments: [facility] [address] [place], [place], [phone](015) INR 2.7 (Normal) PROTIME 28.4 s (Abnormal) Range: 11.7-14.9 13-Zzz-758616:14 Prothrombin Time w/INR Comments: [facility] [address] [place], [place], [phone](415) INR 2.2 (Normal) PROTIME 24.6 s (Abnormal) Range: 11.7-14.9 :18 Prothrombin Time w/INR Comments: [facility] [address] [place], [place], [phone](667) INR 2.2 (Normal) PROTIME 24.3 s (Abnormal) Range: 11.7-14.9 :26 Prothrombin Time w/INR Comments: [facility] [address] [place], [place], [phone](600) INR 2.2 (Normal) PROTIME 24.6 s (Abnormal) Range: 11.7-14.9 :13 Prothrombin Time w/INR Comments: [facility] [address] [place], [place], [phone](156) INR 2.3 (Normal) PROTIME 25.7 s (Abnormal) Range: 11.7-14.9 :58 Prothrombin Time w/INR Comments: [facility] [address] [place], [place], [phone](276) INR 2.0 (Normal) PROTIME 22.8 s (Abnormal) Range: 11.7-14.9 :45 CBC W/Diff, Automated Comments: [facility] [address] [place], [address] ; another Absolute Lymph 2.13 [...] Range: 4.4-11.0 :45 Comprehensive Metabolic Profil Comments: [facility] [address] [place], [address] ; Dr Jackson GAP 8 [...] Comments: Please note revised GLUCOSE reference range ijpcjasbl63/02/2018. 95-Mur-24872:45 Lipid Profile Comments: [facility] [address] [place], [address] VLDL 17 mg/dL (Normal) Range: 5-40 LDL [...] 200-240 mg/dL Borderline >240 mg/dL High Risk 22-Suf-95576:45 Microalb:Creat Ratio,Random UR Comments: [facility] [address] [place], [place], [phone] MALB:CREAT 8.4 {mg/g_CRE} (Normal) MICROALBUMIN,UR 13.5 mg/L (Normal) UR CREAT 160.00 mg/dL (Normal) 94-Wmp-83102:45 Prothrombin Time w/INR Comments: [facility] [address] [place], [address] INR 1.9 (Normal) PROTIME 21.5 s (Abnormal) Range: 11.7-14.9 Comments: ADDENDA: cardio :45 Thyroid Stim Hormone (TSH) Comments: [facility] [address] [place], [address] TSH 2.92 {uIU/mL} (Normal) Range: 0.358-3.74 25-Oxo-74726:45 Urinalysis, Routine (Dipstick) Comments: How was Urine Obtained? [facility] [address] [place], [address] ; other doc LEUK ESTERASE 100 /ul (Abnormal) OCCULT BLOOD-UR 50 /ul (Abnormal) NITRITE UR Negative (Normal) UROBILI Normal mg/dL (Normal) PROT DIPSTX Negative mg/dL (Normal) pH UR 6.0 (Normal) Range: 5.0 - 8.0 SP.GR. DIPSTX 1.020 (Normal) Range: 1.002-1.030 KETONE UR Negative mg/dL (Normal) BILIRUBIN URINE Negative mg/dL (Normal) GLUCOSE, UR Normal mg/dL (Normal) CLARITY Cloudy (Normal) COLOR Yellow (Normal) 45-Qgl-024905:31 Prothrombin Time w/INR Comments: [facility] [address] [place], [place], [id number] INR 2.1 (Normal) PROTIME 23.3 s (Abnormal) Range: 11.7-14.9 9-Cif-188991:20 Prothrombin Time w/INR Comments: [facility] [address] [place], [phone] INR 2.2 (Normal) Comments: ADDENDA: managed by cardio PROTIME 24.1 s (Abnormal) Range: 11.7-14.9 49-Dsf-009669:40 Prothrombin Time w/INR Comments: [facility] [address] [place], [phone] ; managed by cardio INR 2.0 (Normal) PROTIME 22.9 s (Abnormal) Range: 11.7-14.9 85-Tfn-867556:13 Prothrombin Time w/INR Comments: [facility] [address] [place], [place], [id number] INR 1.6 (Normal) PROTIME 19.5 s (Abnormal) Range: 11.7-14.9 43-Kkj-717499:28 Prothrombin Time w/INR Comments: [facility] [address] [place], [phone] ; cardio INR 1.8 (Normal) PROTIME 19.8 s (Abnormal) Range: 11.7-14.9 5-Xuu-177901:53 Prothrombin Time w/INR Comments: [place] [facility] [address] [place], [phone] INR 2.4 (Normal) PROTIME 24.8 s (Abnormal) Range: 11.7-14.9 5-Pwf-794922:26 Prothrombin Time w/INR Comments: [facility] [address] [place], [address] INR 1.9 (Normal) PROTIME 21.2 s (Abnormal) Range: 11.7-14.9 05-Rxf-057918:42 Rapid Flu (95680 x 2) Influenza A Ag POS B (Normal) 60-Cis-681114:04 Prothrombin Time w/INR Comments: [facility] [address] [place], [place], [phone] ; cardio manages INR 1.4 (Normal) PROTIME 16.5 s (Abnormal) Range: 11.7-14.9 47-Fvh-849982:28 Prothrombin Time w/INR Comments: [facility] [address] [place], [place], [phone] INR 1.2 (Normal) PROTIME 14.3 s (Normal) Range: 11.7-14.9 4-Dak-888377:11 Prothrombin Time w/INR Comments: [facility] [address] [place], [place], [phone] INR 2.0 (Normal) PROTIME 21.6 s (Abnormal) Range: 11.7-14.9 81-Kzq-856526:18 CBC W/Diff, Automated Comments: [facility] [address] [place], [address] Absolute Lymph 2.38 {X10_3/ul} (Normal) [...] Range: 4.4-11.0 :18 Prothrombin Time w/INR Comments: [facility] [address]prijrxpz[address] [place], [place], [address] INR 2.1 (Normal) PROTIME 22.8 s (Abnormal) Range: 11.7-14.9 :52 POTASSIUM SERUM (66120) Comments: STAT; Order Date: 07/23/17Order Info: [id number] - KComments: [facility] Uqchvbbqdx2612 [address] [place], [place], [address] K 4.4 mmol/L (Normal) Range: 3.5-5.1 35-Tnk-206743:56 Microscopic Examination Comments: PATIENT NOT FASTINGPERFORMED BY: [employer]6370 [employer] Researchin [place] [id number] Bacteria Few (Normal) Mucus Threads Present (Normal) Epithelial Cells (non renal) 0-10 {/hpf} (Normal) Range: 0 - 10 RBC 3-10 {/hpf} (Abnormal) Range: 0 - 2 WBC 0-5 {/hpf} (Normal) Range: 0 - 5 :56 VITAMIN B-12 (CYANOCOBALAMIN) Comments: PATIENT NOT FASTINGPERFORMED BY: [employer] O[address]qlh9669 [place]view[place]bl[place] [id number] (94394) Vitamin B12 451 pg/mL (Normal) Range: 232-1245 Comments: Please note reference interval change :56 TSH (12737) Comments: PATIENT NOT FASTINGPERFORMED BY: [employer] Encows[address] wireWAXblin [place] [id number] TSH 2.910 {uIU/mL} (Normal) Range: 0.450-4.500 :56 URINALYSIS, W/ MICRO (95160) Comments: PATIENT NOT FASTINGPERFORMED BY: BkamSaint Barnabas Behavior[facility] Health CenterFzmool5187 [facility] [id number] Microscopic Examination See below: (Normal) Comments: Microscopic was indicated and was performed. Nitrite, Urine Negative (Normal) Urobilinogen,Semi-Qn 0.2 mg/dL (Normal) Range: 0.2-1.0 Bilirubin Negative (Normal) Occult Blood 1+ (Abnormal) Ketones Negative (Normal) Glucose Negative (Normal) Protein Negative (Normal) WBC Esterase Trace (Abnormal) Appearance Clear (Normal) Urine-Color Yellow (Normal) pH 7.0 (Normal) Range: 5.0-7.5 Specific [place] 1.017 (Normal) Range: 1.005-1.030 :56 MICROALBUMIN: CREATININE RATIO Comments: PATIENT NOT FASTINGPERFORMED BY: BkamSaint Barnabas Behavior[facility] Health CenterTxpcpm5941 [facility] [id number] ([id number]) AND (06796) Microalb/Creat Ratio 7.4 {mg/g_creat} (Normal) Range: 0.0-30.0 Microalbumin, Urine 5.0 ug/mL (Normal) Creatinine, Urine 68.0 mg/dL (Normal) :56 METABOLIC PANEL, COMPREHENSIVE Comments: PATIENT NOT FASTINGPERFORMED BY: [facility]6370 [facility] [id number] (65357) ALT (SGPT) 18 [iU]/L (Normal) Range: 0-32 [...] Glucose, Serum 87 mg/dL (Normal) Range: 65-99 96-Chn-769084:56 CBC W/AUTO DIFF WBC (49661) Comments: PATIENT NOT FASTINGPERFORMED BY: LabCoSaint Barnabas Behavioral Health CenterYrorfa7645 [facility] [id number] Immature Grans (Abs) 0.0 {x10E3/uL} (Normal) Range: [...] Range: 3.4-10.8 :38 Prothrombin Time w/INR Comments: [facility] [address]ksswwnja[address] [place], [address] INR 2.0 (Normal) PROTIME 22.0 s (Abnormal) Range: 11.7-14.9 11-Hpo-405250:21 Prothrombin Time w/INR Comments: [facility] [address] [place], [address] INR 2.5 (Normal) PROTIME 26.0 s (Abnormal) Range: 11.7-14.9 :12 Lipid Profile Comments: Order Date: 12/04/16Order Info: [id number] - *Hepatic Function PanelOrder Info: [id number] - *Lipid Profile CC PCPComments: 12 hours fasting, may have water.[facility] [address]ec[address] [place], [place], [address](877) VLDL 21 mg/dL (Normal) Range: 5-40 LDL [...] Info: 0788-1 - *Hepatic Function PanelOrder Info: [id number] - *Lipid Profile CC PCPComments: 12 hours fasting, may have water.[facility] Zhamehfvmf[address] [place], [place], [id number] D BILI 0.09 mg/dL (Normal) Range: 0.00-0.30 T BILI 0.50 mg/dL (Normal) Range: 0.20-1.00 ALT 21 U/L (Normal) Range: 12-78 ALK P 78 U/L (Normal) Range: 45-117 AST 16 U/L (Normal) Range: 15-37 GLOB 3.1 g/dL (Normal) Range: 2.2-4.2 ALB 3.5 g/dL (Normal) Range: 3.4-5.0 Comments: Please note revised Albumin AND Globulin reference rangeeffective 2017. T PROT 6.6 g/dL (Normal) Range: 6.4-8.2 16-Coc-818354:39 Prothrombin Time w/INR Comments: [facility] [address] [place], [place], [address] INR 2.4 (Normal) PROTIME 24.9 s (Abnormal) Range: 11.7-14.9 :43 Prothrombin Time w/INR Comments: [facility] [address] [place], [place], [address] INR 2.2 (Normal) PROTIME 23.9 s (Abnormal) Range: 11.7-14.9 :22 CBC W/Diff, Automated Comments: [facility] Y[address] [place], [place], [address] ; OV 9/5 Absolute Lymph 2.11 {X10_3/ul} [...] Range: 4.4-11.0 09-Apr-20179:22 Comprehensive Metabolic Profil Comments: [facility] Trim[address]mm0732 [place], [address] GAP 7 (Normal) Range: 5-15 CO2 33.0 [...] 70-110 :22 Thyroid Stim Hormone (TSH) Comments: [facility] Kvwem[address] [place], [place], [phone] TSH 3.52 {uIU/mL} (Normal) Range: 0.358-3.74 03-Oxc-063383:37 Prothrombin Time w/INR Comments: [facility] Ctyaxjoqky3775 [place], [address] INR 2.1 (Normal) PROTIME 22.4 s (Abnormal) Range: 11.7-14.9 67-Opj-508951:12 Prothrombin Time w/INR Comments: PT ORDER IS AND T4 IS [facility] Szwemvnhhb7[address] [place], [place], [phone] INR 2.1 (Normal) PROTIME 23.1 s (Abnormal) Range: 11.7-14.9 89-Bon-614398:11 T4 Total, Thyroxin Comments: Order Date: 02/19/17Order Info: [id number] - *T4 (Total)Comments: Reason:Order Info: [id number] - *[facility] Eqjzleucih15[address] [place], [place], [address] T4 THYROXIN 7.2 ug/dL (Normal) Range: 4.8-13.9 11-Evi-316965:11 Thyroid Stim Hormone (TSH) Comments: Order Date: 02/19/17Order Info: [id number] - *T4 (Total)Comments: Reason:Order Info: [id number] - *[facility] Zlsomgcfdv4144 [address] [place], [address] TSH 1.56 {uIU/mL} (Normal) Range: 0.358-3.74 :37 Prothrombin Time w/INR Comments: [facility] Sxklhhpanp0945 [place], [address] INR 1.9 (Normal) PROTIME 21.4 s (Abnormal) Range: 11.7-14.9 6-Rhk-247402:50 Prothrombin Time w/INR Comments: [facility] Rwohciwfdz8090 [address] [place], [address] INR 2.0 (Normal) PROTIME 21.6 s (Abnormal) Range: 11.7-14.9 84-Pop-840778:37 Prothrombin Time w/INR Comments: [facility] Xfvmdmolbd1025 [place], [address] INR 2.5 (Normal) PROTIME 25.6 s (Abnormal) Range: 11.7-14.9 49-Ezu-732626:18 Prothrombin Time w/INR Comments: [facility] Kcllmmnumc4[address] [place], [address] INR 2.1 (Normal) PROTIME 22.5 s (Abnormal) Range: 11.7-14.9 23-Tpf-977816:17 Lipid Profile Comments: Order Date: 06/02/16Order Info: [id number]- [id number] - *Hepatic Function PanelDR.JACKSON BROWNEICHELLE LIPID LIVEROrder Date: 06/02/16Order Info: [id number] - *Lipid Profile CC PCPComments: 12 hours fasting, may have mary lalaTri[facility] Pdpzzmifui9504 [place], [address] VLDL 31 mg/dL (Normal) Range: 5-40 LDL [...] 200-240 mg/dL Borderline >240 mg/dL High Risk 33-Djk-071593:17 Liver Profile Comments: Order Date: 06/02/16Order Info: [id number]- [id number] - *Hepatic Function PanelDR.JACKSON PTMICHELLE LIPID LIVEROrder Date: 06/02/16Order Info: [id number] - *Lipid Profile CC PCPComments: 12 hours fasting, may have mary lalaTrihealth Bethesda [facility] Weriauzjoo3447 [place], [address] D BILI 0.09 mg/dL (Normal) Range: 0.00-0.30 T BILI 0.50 mg/dL (Normal) Range: 0.20-1.00 ALT 28 U/L (Normal) Range: 12-78 ALK P 93 U/L (Normal) Range: 45-117 AST 21 U/L (Normal) Range: 15-37 GLOB 3.4 g/dL (Normal) Range: 2.3-3.5 ALB 4.0 g/dL (Normal) Range: 3.4-5.0 T PROT 7.4 g/dL (Normal) Range: 6.4-8.2 4-Jjl-433961:32 Prothrombin Time w/INR Comments: [facility] Uqz[address]izcw0[address] [place], [address] ; jackson manages INR 1.8 (Normal) PROTIME 20.2 s (Abnormal) Range: 11.7-14.9 49-Ekr-875551:09 Prothrombin Time w/INR Comments: [facility] Linfmxqbhn0555 [place], [address] ; another doc INR 2.1 (Normal) PROTIME 23.1 s (Abnormal) Range: 11.7-14.9 58-Kge-599817:10 Metabolic Panel, Comprehensive Comments: today; PATIENT NOT FASTINGPERFORMED BY: [facility] Oijqxv0004 [place] [id number] ([id number]) ALT (SGPT) 16 [iU]/L (Normal) Range: 0-32 [...] Glucose, Serum 89 mg/dL (Normal) Range: 65-99 13-Qou-621344:26 Prothrombin Time w/INR Comments: [facility] Zrzrcvwxsu3788 [address] [place], [place], [address] INR 2.2 (Normal) PROTIME 23.7 s (Abnormal) Range: 11.7-14.9 65-Cde-408855:52 CBC-Complete Blood Cnt No Diff Comments: [facility] [address] [place], [address] ; sibilia MPV 10.8 fL [...] Range: 4.4-11.0 :58 Prothrombin Time w/INR Comments: [facility] [address]uzzqdnbja18[address] [place], [place], [address] INR 2.0 (Normal) PROTIME 22.4 s (Abnormal) Range: 11.7-14.9 81-Xqt-496946:49 Prothrombin Time w/INR Comments: [facility] [address] [place], [address] INR 2.0 (Normal) PROTIME 22.3 s (Abnormal) Range: 11.7-14.9 04-Cbc-619368:54 CBC WITH MANUAL DIFF (57740) Comments: PATIENT NOT FASTINGPERFORMED BY: CB [facility] Xokvtj1548 [facility] [id number] Immature Grans (Abs) 0.0 {x10E3/uL} (Normal) Range: [...] 3.77-5.28 WBC 6.2 {x10E3/uL} (Normal) Range: 3.4-10.8 75-Ocf-983014:54 Metabolic Panel, Comprehensive Comments: PATIENT NOT FASTINGPERFORMED BY: [facility]6370 [facility] [id number] (76626) ALT (SGPT) 18 [iU]/L (Normal) Range: 0-32 [...] Glucose, Serum 86 mg/dL (Normal) Range: 65-99 41-Uib-543563:54 TSH (89026) Comments: PATIENT NOT FASTINGPERFORMED BY: [facility]CoSaint [facility] CenterZfjhwx2742 [facility] [id number] TSH 2.890 {uIU/mL} (Normal) Range: 0.450-4.500 77-Frz-819309:23 Prothrombin Time w/INR Comments: [facility] Urfizwaqii2653 [address] [place], [place], [address] ; managed by cardio INR 2.6 (Normal) PROTIME 27.4 s (Abnormal) Range: 11.7-14.9 40-Ijl-61465:54 Prothrombin Time w/INR Comments: [facility] Sbvxoavmtf4174 [address] [place], [place], [address] ; another doc INR 2.0 (Normal) PROTIME 22.3 s (Abnormal) Range: 11.7-14.9 :53 Lipid Profile Comments: Order Date: 05/22/16 Order #: [id number] Bethesda Butler Hospital Vjubayuppy6709 [address] [place], [place], [address] VLDL 21 mg/dL (Normal) Range: 5-40 LDL [...] Profile Comments: Order Date: 05/22/16 Order #: [id number] Bethesda Butler Hospital Melryxiddx3638 [address] [place], [place], [address] D BILI < 0.05 mg/dL (Normal) Range: [...] Range: 6.4-8.2 :09 Prothrombin Time w/INR Comments: [facility] Akbu[address] [place], [place], [address] INR 2.5 (Normal) PROTIME 26.3 s (Abnormal) Range: 11.7-14.9 :59 Prothrombin Time w/INR Comments: [facility] Erqzuonwfi[address] [place], [place], [address] ; managed by cardio INR 2.9 (Normal) PROTIME 29.3 s (Abnormal) Range: 11.7-14.9 :05 Prothrombin Time w/INR Comments: [facility] Q[address]yl[address]xl[address] [place], [address] INR 2.0 (Normal) PROTIME 22.3 s (Abnormal) Range: 11.7-14.9 04-Sfv-291848:11 Prothrombin Time w/INR Comments: [facility] Sixwoxq[address]xf[address] [place], [place], [address] INR 2.7 (Normal) Comments: ADDENDA: managed by cardio PROTIME 27.7 s (Abnormal) Range: 11.7-14.9 :14 Prothrombin Time w/INR Comments: [facility] [address]qxvw[address] [place], [place], [address] ; managed by Jackson INR 2.7 (Normal) PROTIME 28.1 s (Abnormal) Range: 11.7-14.9 :45 Prothrombin Time w/INR Comments: [facility] Ziln[address] [place], [place], [address] ; managed by cardio INR 3.1 (Normal) PROTIME 31.3 s (Abnormal) Range: 11.7-14.9 :27 Prothrombin Time w/INR Comments: [facility] Ecjxozmmlt[address] [place], [place], [address] ; managed by cardio INR 3.1 (Normal) PROTIME 31.1 s (Abnormal) Range: 11.7-14.9 :22 Prothrombin Time w/INR Comments: [facility] Qdq[address]jlsofp[address] [place], [place], [address] INR 2.6 (Normal) PROTIME 27.4 s (Abnormal) Range: 11.7-14.9 16-Jan-20169:08 Prothrombin Time w/INR Comments: [facility] P[address] [place], [place], [address] ; managed with Dr. paz INR 4.1 (Abnormal) Comments: CRITICAL VALUE REPEATED AND VERIFIED. CALLED TO [facility]01/16/16 1251 Elza Hinojosa.RESULTS READ BACK BY SAME . PROTIME 38.2 s (Abnormal) Range: 11.7-14.9 10-Ozl-399054:11 Microscopic Examination Comments: PATIENT WAS FASTINGPERFORMED BY: [facility] [id number] Bacteria None seen (Normal) Mucus Threads Present (Normal) Epithelial Cells (non renal) 0-10 {/hpf} (Normal) Range: 0 - 10 RBC 11-30 {/hpf} (Abnormal) Range: 0 - 2 WBC 0-5 {/hpf} (Normal) Range: 0 - 5 01-Ytr-623662:11 MICROALBUMIN: CREATININE RATIO Comments: PATIENT WAS FASTINGPERFORMED BY: [place] [facility] [id number] ([id number]) AND (47630) Microalb/Creat Ratio 11.4 {mg/g_creat} (Normal) Range: 0.0-30.0 Microalbumin, Urine 12.1 ug/mL (Normal) Comments: Please note reference interval change Creatinine, Urine 106.3 mg/dL (Normal) Comments: Please note reference interval change 86-Cnz-144580:11 URINALYSIS (40266) Comments: PATIENT WAS FASTINGPERFORMED BY: [place] [facility] [id number] Microscopic Examination See below: (Normal) Comments: Microscopic was indicated and was performed. Nitrite, Urine Negative (Normal) Urobilinogen,Semi-Qn 0.2 mg/dL (Normal) Range: 0.2-1.0 Bilirubin Negative (Normal) Occult Blood 2+ (Abnormal) Ketones Negative (Normal) Glucose Negative (Normal) Protein Negative (Normal) WBC Esterase Negative (Normal) Appearance Clear (Normal) Urine-Color Yellow (Normal) pH 7.0 (Normal) Range: 5.0-7.5 Specific [place] 1.018 (Normal) Range: 1.005-1.030 50-Mml-876115:11 Metabolic Panel, Comments: PATIENT WAS FASTINGPERFORMED BY: [facility]6370 [facility] [id number] Information: [id number], [id number] Comprehensive (08111) ALT (SGPT) 14 [iU]/L (Normal) Range: 0-32 [...] Glucose, Serum 91 mg/dL (Normal) Range: 65-99 78-Nuw-873636:11 TSH (64314) Comments: PATIENT WAS FASTINGPERFORMED BY: [facility] Yetysk6072 [facility] [id number] TSH 2.260 {uIU/mL} (Normal) Range: 0.450-4.500 :17 Prothrombin Time w/INR Comments: [facility] [address]ws[address] [place], [place], [address] INR 2.8 (Normal) PROTIME 28.4 s (Abnormal) Range: 11.7-14.9 :40 Lipid Profile Comments: [facility] Jwiok[address]kw[address] [place], [place], [address] VLDL 22 mg/dL (Normal) Range: 5-40 LDL [...] mg/dL High Risk :40 Liver Profile Comments: [facility] [address] [place], [place], [address] D BILI 0.10 mg/dL (Normal) Range: 0.00-0.30 T BILI 0.60 mg/dL (Normal) Range: 0.20-1.00 ALT 26 U/L (Normal) Range: 12-78 ALK P 86 U/L (Normal) Range: 50-136 AST 20 U/L (Normal) Range: 15-37 GLOB 3.4 g/dL (Normal) Range: 2.3-3.5 ALB 3.9 g/dL (Normal) Range: 3.4-5.0 T PROT 7.3 g/dL (Normal) Range: 6.4-8.2 :26 Prothrombin Time w/INR Comments: [facility] [address] [place], [place], [address] INR 2.6 (Normal) Comments: ADDENDA: handled by cardio PROTIME 27.3 s (Abnormal) Range: 11.7-14.9 :40 Prothrombin Time w/INR Comments: [facility] [address] [place], [address] INR 2.4 (Normal) PROTIME 26.4 s (Abnormal) Range: 11.7-14.9 3-Gzd-857474:03 Prothrombin Time w/INR Comments: [facility] [address]fe[address] [place], [address] ; per pop up in EMR cardio manages INR INR 2.2 (Normal) PROTIME 24.5 s (Abnormal) Range: 11.7-14.9 03-Urb-490316:51 Prothrombin Time w/INR Comments: [place] [address] [place], [address] INR 1.6 (Normal) PROTIME 19.0 s (Abnormal) Range: 11.7-14.9 Comments: ADDENDA: managed by cardio :33 Prothrombin Time w/INR Comments: [facility] [address]avklzcz[address] [place], [address] ; handled by cardio INR 2.1 (Normal) PROTIME 24.0 s (Abnormal) Range: 11.7-14.9 56-Sbh-507424:02 Prothrombin Time w/INR Comments: [place] [address] [place], [address] INR 2.2 (Normal) PROTIME 24.1 s (Abnormal) Range: 11.7-14.9 40-Coa-556922:37 Prothrombin Time w/INR Comments: [facility] [address] [place], [address] INR 2.5 (Normal) PROTIME 26.7 s (Abnormal) Range: 11.7-14.9 :44 Prothrombin Time w/INR Comments: [place] [address] [place], [place], [address] INR 2.2 (Normal) PROTIME 24.6 s (Abnormal) Range: 11.7-14.9 76-Wxc-980552:15 Prothrombin Time w/INR Comments: [facility] [address]iev[address] [place], [place], [address] INR 1.6 (Normal) PROTIME 19.4 s (Abnormal) Range: 11.7-14.9 :36 Prothrombin Time w/INR Comments: [facility] [address]mo[address] [place], [place], [address] INR 1.2 (Normal) PROTIME 15.3 s (Abnormal) Range: 11.7-14.9 :02 Prothrombin Time w/INR Comments: [address] [place], [place], [address] INR 2.7 (Normal) PROTIME 29.0 s (Abnormal) Range: 11.7-14.9 :47 Lipid Profile Comments: [facility] [address] [place], [place], [address] VLDL 20 mg/dL (Normal) Range: 5-40 LDL [...] mg/dL High Risk :47 Liver Profile Comments: [facility] Hhkcdwgimz[address] [place], [place], [address] D BILI 0.09 mg/dL (Normal) Range: 0.00-0.30 T BILI 0.40 mg/dL (Normal) Range: 0.20-1.00 ALT 26 U/L (Normal) Range: 12-78 ALK P 86 U/L (Normal) Range: 50-136 AST 24 U/L (Normal) Range: 15-37 GLOB 3.3 g/dL (Normal) Range: 2.3-3.5 ALB 4.0 g/dL (Normal) Range: 3.4-5.0 T PROT 7.3 g/dL (Normal) Range: 6.4-8.2 6-Oor-410653:11 CBC, Platelets & Auto Diff Comments: PATIENT NOT FASTINGPERFORMED BY: [facility] Ictint0205 [facility] [id number] Information: [id number] (48150) Immature Grans (Abs) 0.0 {x10E3/uL} (Normal) Range: [...] 3.77-5.28 WBC 6.2 {x10E3/uL} (Normal) Range: 3.4-10.8 5-Nzo-923469:11 CALCIFEDIOL (33065) Comments: PATIENT NOT FASTINGPERFORMED BY: [facility]6370 [facility] [id number] Vitamin D, 25-Hydroxy 38.9 ng/mL (Normal) Range: 30.0-100.0 Comments: Vitamin D deficiency has been defined by the [place] of[facility] Cent[facility]ine and an Endocrine Society practice guideline as alevel of serum 25-OH vitamin D less than 20 ng/mL (1,2).The Endocrine Society went on to further define vitamin Dinsufficiency as a level between 21 and 29 ng/mL (2).1. IOM ([place] of Medicine). 2010. Dietary reference intakes for calcium and D. [place]: The National Academies Press.2. Roberto MF, Brody OCHOA, Maribell CADENA, et al. Evaluation, treatment, and prevention of vitamin D deficiency: an Endocrine Society clinical practice guideline. JCEM. 2010; 96(7):1911-30. 3-Fcu-733046:11 VITAMIN B12 AND FOLATES Comments: PATIENT NOT FASTINGPERFORMED BY: [facility]6370 [facility] [id number] (47156) Folate (Folic Acid), Serum 10.4 ng/mL (Normal) Comments: A serum folate concentration of less than 3.1 ng/mL isconsidered to represent clinical deficiency. Vitamin B12 1651 pg/mL (Abnormal) Range: 211-946 5-Eqi-912433:11 Metabolic Panel, Comprehensive Comments: PATIENT NOT FASTINGPERFORMED BY: [facility]6370 [facility] [id number] (09517) ALT (SGPT) 15 [iU]/L (Normal) Range: 0-32 [...] Range: 65-99 09-May-20159:53 Prothrombin Time w/INR Comments: [facility] [address]ww8067 [place], [address] INR 1.9 (Normal) PROTIME 22.0 s (Abnormal) Range: 11.7-14.9 79-Vpr-702753:40 Prothrombin Time w/INR Comments: Test performed at:[facility] Blvthvekxd9234 [facility] [place] [address] INR 1.3 (Normal) PROTIME 16.3 s (Abnormal) Range: 11.7-14.9 42-Qzq-776557:03 Prothrombin Time w/INR Comments: Test performed at:[facility] Kolyldtfpg0771 [facility] [place] [address] INR 1.7 (Normal) PROTIME 20.4 s (Abnormal) Range: 11.7-14.9 5-Xlj-158002:26 Prothrombin Time w/INR Comments: Test performed at:[facility] Kbvztzucwq9213 [facility] [place] [address] INR 1.2 (Normal) Comments: ADDENDA: managed by dr paz PROTIME 15.8 s (Abnormal) Range: 11.7-14.9 75-Cvb-299941:28 Prothrombin Time w/INR Comments: Test performed at:[facility] [address] [place] [id number] INR 1.2 (Normal) PROTIME 15.8 s (Abnormal) Range: 11.7-14.9 :54 Prothrombin Time w/INR Comments: Test performed at:[facility] [address] [place] [address] INR 2.5 (Normal) PROTIME 27.3 s (Abnormal) Range: 11.7-14.9 8-Cgl-435414:16 Prothrombin Time w/INR Comments: Test performed at:[facility] [address] [place] [address] INR 2.0 (Normal) PROTIME 23.2 s (Abnormal) Range: 11.7-14.9 05-Xyl-613623:29 Prothrombin Time w/INR Comments: Test performed at:[facility] [address] [place] [address] INR 2.8 (Normal) PROTIME 29.3 s (Abnormal) Range: 11.7-14.9 35-Lfp-355742:06 Prothrombin Time w/INR Comments: Test performed at:[facility] [address] [place] [address] ; Dr Bella manages INR 2.1 (Normal) PROTIME 24.0 s (Abnormal) Range: 11.7-14.9 :45 Prothrombin Time w/INR Comments: Test performed at:[facility] [address] [place] [address] ; ordered by another INR 1.3 (Normal) PROTIME 16.5 s (Abnormal) Range: 11.7-14.9 :00 Prothrombin Time w/INR Comments: Test performed at:[facility] [address] [place], [place] [address] INR 0.9 (Normal) PROTIME 12.7 s (Normal) Range: 11.7-14.9 :05 Vitamin B12 and Folate Comments: PATIENT NOT FASTINGPERFORMED BY: [facility]CoSaint [facility] CenterUqnxfe3045 [facility] [id number] Information: [id number] Folate (Folic Acid), 7.8 ng/mL (Normal) Comments: A serum folate concentration of less than 3.1 ng/mL isconsidered to represent clinical deficiency. Serum Vitamin B12 1883 pg/mL Range: 211-946 (Abnormal) : Vitamin D, 42.8 ng/mL (Normal) Comments: PATIENT NOT FASTINGPERFORMED BY: [facility] [id number] 05 25-Hydroxy Range: 30.0-100.0 Comments: Vitamin D deficiency has been defined by the [place] of[employer] and an Endocrine Society practice guideline as alevel of serum 25-OH vitamin D less than 20 ng/mL (1,2).The Endocrine Society went on to further define vitamin Dinsufficiency as a level between 21 and 29 ng/mL (2).1. IOM ([place] of [employer]). 2010. Dietary reference intakes for calcium and D. [place]: The National Academies Press.2. Roberto MF, Brody [place], Maribell CADENA, et al. Evaluation, treatment, and prevention of vitamin D deficiency: an Endocrine Society clinical practice guideline. JCEM. 2010; 96(7):1911-30. [id number] CBC W/Diff, Automated Comments: Test performed at:[facility] [address] [place], [place] [id number] Absolute Lymph 2.41 {X10_3/ul} (Normal) Range: 0.83-4.51 [...] 4.2-5.4 WBC 6.5 K/mm3 (Normal) Range: 4.4-11.0 [id number] Basic Metabolic Profile (BMP) Comments: Test performed at:[facility] [address] [place] [address] [id number] GAP 4 (Abnormal) Range: 5-15 CO2 33.0 mmol/L (Abnormal) Range: 21.0-32.0 CL 103 mmol/L (Normal) Range: 98-107 K 4.8 mmol/L (Normal) Range: 3.5-5.1 NA 140 mmol/L (Normal) Range: 136-145 CA 8.8 mg/dL (Normal) Range: 8.5-10.1 BUN/CRE 25.8 {RATIO} (Abnormal) Range: 10-20 CREAT,SERUM 1.2 mg/dL (Abnormal) Range: 0.6-1.0 BUN 31 mg/dL (Abnormal) Range: 7-18 GLU 108 mg/dL (Normal) Range: 70-110 60-Tns-291261:45 Basic Metabolic Profile (BMP) Comments: Test performed at:[facility] [address] [place] [address] GAP 4 (Abnormal) Range: 5-15 CO2 28.0 mmol/L (Normal) Range: 21.0-32.0 CL 106 mmol/L (Normal) Range: 98-107 K 4.3 mmol/L (Normal) Range: 3.5-5.1 NA 138 mmol/L (Normal) Range: 136-145 CA 8.8 mg/dL (Normal) Range: 8.5-10.1 BUN/CRE 26.0 {RATIO} (Abnormal) Range: 10-20 CREAT,SERUM 1.0 mg/dL (Normal) Range: 0.6-1.0 BUN 26 mg/dL (Abnormal) Range: 7-18 GLU 93 mg/dL (Normal) Range: 70-110 53-Vcw-502597:45 CBC W/Diff, Automated Comments: Test performed at:[facility] [address] [place] [address] Absolute Lymph 2.60 {X10_3/ul} (Normal) [...] 4.2-5.4 WBC 6.5 K/mm3 (Normal) Range: 4.4-11.0 38-Wwg-477261:07 Lipid Profile Comments: Specimen slightly hemolyzed. Results may be affected.Test performed at:[facility] [address] [place] [address] VLDL 19 mg/dL (Normal) Range: 5-40 LDL [...] 200-240 mg/dL Borderline >240 mg/dL High Risk 00-Mgu-789385:07 Liver Profile Comments: Specimen slightly hemolyzed. Results may be affected.Test performed at:[facility] [address] [facility] [place], [place] [address] D BILI < 0.05 mg/dL (Normal) Range: [...] CHOL 226 mg/dL (Abnormal) Comments: <200 mg/dL Yfpbhvkyo500-404 mg/dL Borderline>240 mg/dL High Risk :47 LIVER [...] :47 TSH 3.05 {uIU/mL} (Normal) Range: 0.358-3.74 25-Wob-600879:00 LORNA CULTURE-OTHER (13575) Comments: PATIENT NOT FASTINGPERFORMED BY: [facility] [id number] Information: SRC:THRT [id number] Result 1 RRF (Normal) Comments: Routine respiratory jesus Upper Respiratory Culture Final report (Normal) 44-Hwb-19223:21 Rapid Strep Test, Office (72370) Rapid Strep Test, Office Negative (Normal) 66-Osm-67152:00 BILAT SCRN DIGITAL & CAD Radiology Report [...] Jones M.D.January 04, 2013 at 10:41:52 AM [phone] Signed GP/GP If you are the referring physician and would like to consult with theradiologist who provided this interpretation, please contact Ne Huang at [phone]. If this radiologist is unavailable, youwill be directed to another radiologist to assist. If you are a patient with a question regarding this report, pleasecontactyour referring physician directly. Professional Interpretation Provided By: [employer], Phone , These documents contain legally protected [...] Function Panel Comments: PATIENT WAS FASTINGPERFORMED BY: [facility] [facility] [id number] Information: [id number] (7) ALT (SGPT) 23 [iU]/L (Normal) Range: 0-32 AST (SGOT) 21 [iU]/L (Normal) Range: 0-40 Alkaline Phosphatase, S 74 [iU]/L (Normal) Range: 25-165 Bilirubin, Direct 0.10 mg/dL Range: 0.00-0.40 (Normal) Albumin, Serum 4.3 g/dL (Normal) Range: 3.5-4.8 Bilirubin, Total 0.3 mg/dL (Normal) Range: 0.0-1.2 Protein, Total, Serum 6.7 g/dL (Normal) Range: 6.0-8.5 Written Authorization WAR (Normal) Comments: PATIENT WAS FASTINGPERFORMED BY: [facility] [facility] [id number] :19 Comments: Written Authorization Received.Authorization received from DR BRO [id number] by Rachelle Porter :19 Metabolic Panel, Comprehensive Comments: PATIENT WAS FASTINGPERFORMED BY: [facility]6[address] [facility] [id number] (30741) ALT (SGPT) 22 [iU]/L (Normal) Range: 0-32 [...] Glucose, Serum 89 mg/dL (Normal) Range: 65-99 9-Rop-911573:19 CBC with manual diff Comments: PATIENT WAS FASTINGPERFORMED BY: [facility]Co[facility] CenterZaqjuu8457 [facility] [id number] Information: [id number] (97764) Immature Grans (Abs) 0.0 {x10E3/uL} (Normal) Range: [...] 3.77-5.28 WBC 4.6 {x10E3/uL} (Normal) Range: 4.0-10.5 1-Bqf-287666:19 Lipid Panel (30882) Comments: PATIENT WAS FASTINGPERFORMED BY: [place] [facility] [id number] LDL/HDL Ratio 1.3 {ratio_units} (Normal) Range: 0.0-3.2 Cholesterol, Total 153 mg/dL (Normal) Range: 100-199 HDL Cholesterol 60 mg/dL (Normal) Comments: According to ATP-III Guidelines, HDL-C >59 mg/dL is considered anegative risk factor for CHD. LDL Cholesterol Calc 80 mg/dL (Normal) Range: 0-99 Triglycerides 65 mg/dL (Normal) Range: 0-149 VLDL Cholesterol Hector 13 mg/dL (Normal) Range: 5-40 4-Umm-296125:19 TSH (32378) Comments: PATIENT WAS FASTINGPERFORMED BY: [place] [facility] [id number] TSH 2.650 {uIU/mL} (Normal) Range: 0.450-4.500 57-Yxe-533783:14 Urinalysis, Office (04708) UA - BILIRUBIN Negative (Normal) UA - BLOOD Hemolyzed Small (Normal) UA - GLUCOSE Negative (Normal) UA - KETONES Negative mg/dL (Normal) UA - LEUKOCYTE ESTERASE Negative (Normal) UA - NITRITE Negative (Normal) UA - PH 7.0 (Normal) UA - PROTEIN Negative mg/dL (Normal) UA - SPECIFIC GRAVITY 1.015 (Normal) URINE UROBILINGN REYNA TIMED Normal mg/dL (Normal) 50-Qfl-122408:10 TSH (THYROID STIMULATING Comments: PATIENT WAS FASTINGPERFORMED BY: [place] [facility] [id number] HORMONE) (03841) TSH 2.500 {uIU/mL} (Normal) Range: 0.450-4.500 11-Wjr-276305:10 CALCIFEDIOL (21558) Comments: PATIENT WAS FASTINGPERFORMED BY: [facility]6[address] [facility] [id number] Vitamin D, 25-Hydroxy 48.1 ng/mL (Normal) Range: 30.0-100.0 Comments: Vitamin D deficiency has been defined by the [place] ofMedicine and an Endocrine Society practice guideline as alevel of serum 25-OH vitamin D less than 20 ng/mL (1,2).The Endocrine Society went on to further define vitamin Dinsufficiency as a level between 21 and 29 ng/mL (2).1. IOM ([place] of Medicine). 2010. Dietary reference intakes for calcium and D. [place]: The National Academies Press.2. Roberto MF, Brody [place], Maribell CADENA, et al. Evaluation, treatment, and prevention of vitamin D deficiency: an Endocrine Society clinical practice guideline. JCEM. 2010; 96(7):1911-30. 21-Hpn-427141:10 Lipid Panel (31303) Comments: PATIENT WAS FASTINGPERFORMED BY: [facility] [id number] LDL/HDL Ratio 2.3 {ratio_units} (Normal) Range: 0.0-3.2 LDL Cholesterol Calc 117 mg/dL (Abnormal) Range: 0-99 VLDL Cholesterol Hector 16 mg/dL (Normal) Range: 5-40 HDL Cholesterol 52 mg/dL (Normal) Comments: According to ATP-III Guidelines, HDL-C >59 mg/dL is considered anegative risk factor for CHD. Triglycerides 78 mg/dL (Normal) Range: 0-149 Cholesterol, Total 185 mg/dL (Normal) Range: 100-199 55-Huz-988711:10 HEPATIC FUNCTION PANEL Comments: PATIENT WAS FASTINGPERFORMED BY: [facility]6[address] [facility] [id number] Information: [id number] (10283) ALT (SGPT) 21 [iU]/L (Normal) Range: 0-40 AST (SGOT) 20 [iU]/L (Normal) Range: 0-40 Alkaline Phosphatase, S 75 [iU]/L (Normal) Range: 25-165 Bilirubin, Direct 0.09 mg/dL (Normal) Range: 0.00-0.40 Albumin, Serum 4.0 g/dL (Normal) Range: 3.5-4.8 Bilirubin, Total 0.3 mg/dL (Normal) Range: 0.0-1.2 Protein, Total, Serum 6.5 g/dL (Normal) Range: 6.0-8.5 :41 TSH (44748) Comments: PATIENT NOT FASTINGPERFORMED BY: BkamDr. Dan C. Trigg Memorial HospitalIdnkun[address] [place] [address] [id number] Information: [id number] TSH 3.750 {uIU/mL} (Normal) Range: 0.450-4.500 :39 Prothrombin Time (PT) Comments: PERFORMED BY: Bkam[address] [id number] Prothrombin Time 39.0 {sec} (Abnormal) Range: 8.7-11.5 INR 3.6 (Abnormal) Range: 0.8-1.2 Comments: Client Requested Flag Reference interval is for non- anticoagulated patients. . Suggested INR therapeutic ra nge for Vitamin K antagonist therapy: Standard Dose (moderate intensity therapeutic range): 2.0 - 3.0 Higher intensity therapeutic range 2.5 - 3.5 :26 PT (PROTHROMBIN TIME) Comments: PATIENT NOT FASTINGPERFORMED BY: [facility] 6[address] [facility] [id number] Information: [id number] CC:[id number] (04851) Prothrombin Time 54.3 {sec} (Abnormal) Range: 8.7-11.5 [...] (Activated Partial Comments: PATIENT NOT FASTINGPERFORMED BY: [place] [address] [facility] [id number] Thromboplastin Time) (35517) aPTT 39 {sec} (Abnormal) Range: 24-33 Comments: This test has not been validated for monitoring unfractionated heparintherapy. aPTT-based therapeutic ranges for unfractionated heparintherapy have not been established. For general guidelines onHeparin monitoring, refer to the [facility] Directory of Services. :51 PT (Prothrobim Time) Comments: PATIENT NOT FASTINGPERFORMED BY: [place] [address] [facility] [id number] Information: [id number] CC:[id number] (41813) Prothrombin Time 26.1 {sec} (Abnormal) Range: 8.7-11.5 INR 2.4 (Abnormal) Range: 0.8-1.2 Comments: Reference interval is for non-anticoagulated patients. . Suggested INR therapeutic range for Vitamin K anta gonist therapy: Standard Dose (moderate intensity therapeutic range): 2.0 - 3.0 Higher intensity therapeutic range 2.5 - 3.5 :43 HEPATIC FUNCTION PANEL Comments: PATIENT NOT FASTINGPERFORMED BY: [facility]6[address] [facility] [id number] Information: [id number] (48661) ALT (SGPT) 25 [iU]/L (Normal) Range: 0-40 AST (SGOT) 19 [iU]/L (Normal) Range: 0-40 Alkaline Phosphatase, S 73 [iU]/L (Normal) Range: 25-165 Albumin, Serum 4.4 g/dL (Normal) Range: 3.5-4.8 Bilirubin, Direct 0.09 mg/dL (Normal) Range: 0.00-0.40 Bilirubin, Total 0.3 mg/dL (Normal) Range: 0.0-1.2 Protein, Total, Serum 6.4 g/dL (Normal) Range: 6.0-8.5 :18 Lipid Panel (56302) Comments: PATIENT NOT FASTINGPERFORMED BY: [facility] [id number] LDL/HDL Ratio 1.3 {ratio_units} (Normal) Range: 0.0-3.2 [...] FUNCTION PANEL Comments: PATIENT NOT FASTINGPERFORMED BY: [facility] [id number] Information: [id number] (51201) ALT (SGPT) 60 [iU]/L (Abnormal) Range: 0-40 Alkaline Phosphatase, S 66 [iU]/L (Normal) Range: 25-165 AST (SGOT) 43 [iU]/L (Abnormal) Range: 0-40 Albumin, Serum 4.3 g/dL (Normal) Range: 3.5-4.8 Bilirubin, Direct 0.10 mg/dL (Normal) Range: 0.00-0.40 Bilirubin, Total 0.3 mg/dL (Normal) Range: 0.0-1.2 Protein, Total, Serum 6.7 g/dL (Normal) Range: 6.0-8.5 :18 CALCIFEDIOL (08406) Comments: PATIENT NOT FASTINGPERFORMED BY: [facility] [id number] Vitamin D, 25-Hydroxy 57.3 ng/mL (Normal) Range: 32.0-100.0 Comments: Recent studies consider the lower limit of 32.0 ng/mL to be athreshold for optimal health.Baljit HOWELL. J Nutr. 2004;135(2):317-22. 8-Zpj-608859:49 Urinalysis, Office (12147) UA - BILIRUBIN Negative (Normal) UA - BLOOD Hemolyzed Moderate (Normal) UA - GLUCOSE Negative (Normal) UA - KETONES Negative mg/dL (Normal) UA - LEUKOCYTE ESTERASE Negative (Normal) UA - NITRITE Negative (Normal) UA - PH 7.5 (Normal) UA - PROTEIN Negative mg/dL (Normal) UA - SPECIFIC GRAVITY 1.015 (Normal) URINE UROBILINGN REYNA TIMED Normal mg/dL (Normal) 52-Umr-495758:38 Urinalysis, Office (62387) UA - BILIRUBIN Negative (Normal) UA - BLOOD Hemolyzed Small (Normal) UA - GLUCOSE Negative (Normal) UA - KETONES Negative mg/dL (Normal) UA - LEUKOCYTE ESTERASE Negative (Normal) UA - NITRITE Negative (Normal) UA - PH 7.5 (Normal) UA - PROTEIN Negative mg/dL (Normal) UA - SPECIFIC GRAVITY 1.015 (Normal) URINE UROBILINGN REYNA TIMED 2 mg/dL (Normal) 59-Vyv-50857:47 Metabolic Panel, Basic Comments: PATIENT NOT FASTINGPERFORMED BY: [facility]CoSaint [facility] CenterYnvbwp2536 [facility] [id number] Information: [id number] (88242) Calcium, Serum 9.6 mg/dL (Normal) Range: 8.6-10.2 [...] CULTURE-REYNA COL Comments: PATIENT NOT FASTINGPERFORMED BY: [employer]70 NMotive ResearchUofL [facility] [id number] Information: SRC:UR [id number] COUNT (30294) Result 1 NG36 (Normal) Comments: No growth in 36 - 48 hours. Urine Culture,Comprehensive Final report (Normal) :29 Urinalysis, Office (75625) UA - BILIRUBIN Negative (Normal) UA - BLOOD Non Hemolyzed Moderate (Normal) UA - GLUCOSE Negative (Normal) UA - KETONES Negative mg/dL (Normal) UA - LEUKOCYTE ESTERASE Trace (Normal) UA - NITRITE Negative (Normal) UA - PH 6.0 (Normal) UA - PROTEIN Negative mg/dL (Normal) UA - SPECIFIC GRAVITY 1.020 (Normal) URINE UROBILINGN REYNA TIMED Normal mg/dL (Normal) 72-Dlt-767009:44 Microscopic Examination Comments: PATIENT WAS FASTINGPERFORMED BY: [employer]6370 [facility]ersAt[facility] [id number] Bacteria Few (Normal) Mucus Threads Present (Normal) Epithelial Cells (non renal) 0-10 {/hpf} (Normal) Range: 0 - 10 RBC 0-3 {/hpf} (Normal) Range: 0 - 3 WBC 0-5 {/hpf} (Normal) Range: 0 - 5 80-Srb-970683:44 CALCIFIDIOL (37443) VIT D 25 Comments: PATIENT WAS FASTINGPERFORMED BY: [employer] Nxulhj3691 [facility]Se[facility]ersAt[facility] [id number] Vitamin D, 25-Hydroxy 28.6 ng/mL (Abnormal) Range: 32.0-100.0 Comments: Recent studies consider the lower limit of 32.0 ng/mL to be athreshold for optimal health.Baljit HOWELL. J Nutr. 2004;135(2):317-22. 83-Mwm-170701:44 Folate (18096) Comments: PATIENT WAS FASTINGPERFORMED BY: [facility]6[address] [facility] [place] [id number] Folate (Folic Acid), Serum 12.2 ng/mL (Normal) Comments: Indeterminate: 2.2 - 3.0 Deficient: <2.2 12-Uoc-428721:44 VITAMIN B-12 (CYANOCOBALAMIN) Comments: PATIENT WAS FASTINGPERFORMED BY: [facility] [facility] [id number] (09715) Vitamin B12 351 pg/mL (Normal) Range: 211-946 90-Vwr-706597:44 SED RATE ERYTHROCYTE (95801) Comments: PATIENT WAS FASTINGPERFORMED BY: [facility]6[address] [facility] [id number] Sedimentation Rate-Westergren 2 mm/h (Normal) Range: 0-30 89-Liu-429526:44 RHEUMATOID FACTOR-QUANT (96957) Comments: PATIENT WAS FASTINGPERFORMED BY: [facility]6[address] [facility] [place] [id number] RA Latex Turbid. 10.5 {IU/mL} (Normal) Range: 0.0-13.9 60-Sso-991216:44 C-REACTIVE PROTEIN (88861) Comments: PATIENT WAS FASTINGPERFORMED BY: [facility]6[address] [facility] [id number] C-Reactive Protein, Quant 0.9 mg/L (Normal) Range: 0.0-4.9 09-Hzr-437680:44 JOANNA (ANTINUCLEAR ANTIBODY) Comments: PATIENT WAS FASTINGPERFORMED BY: [facility] [facility] [id number] (39040) JOANNA Direct Negative (Normal) 49-Rdc-596925:44 LIPID PANEL (59568) Comments: PATIENT WAS FASTINGPERFORMED BY: [facility]6[address] [facility] [place] [id number] LDL Cholesterol Calc 140 mg/dL (Abnormal) Range: 0-99 LDL/HDL Ratio 1.8 {ratio_units} (Normal) Range: 0.0-3.2 HDL Cholesterol 77 mg/dL (Normal) Comments: According to ATP-III Guidelines, HDL-C >59 mg/dL is considered anegative risk factor for CHD. VLDL Cholesterol Hector 19 mg/dL (Normal) Range: 5-40 Triglycerides 97 mg/dL (Normal) Range: 0-149 Cholesterol, Total 236 mg/dL (Abnormal) Range: 100-199 :44 TSH (29986) Comments: PATIENT WAS FASTINGPERFORMED BY: BkamDr. Dan C. Trigg [facility] HospitalDtgulw4580 [facility] [id number] TSH 1.670 {uIU/mL} (Normal) Range: 0.450-4.500 :44 URINALYSIS, W/ MICRO (87208) Comments: PATIENT WAS FASTINGPERFORMED BY: [facility]6370 [facility] [id number] Microscopic Examination See below: (Normal) Bilirubin Negative (Normal) Ketones Negative (Normal) Nitrite, Urine Negative (Normal) Occult Blood 1+ (Abnormal) Urobilinogen,Semi-Qn 0.2 mg/dL (Normal) Range: 0.0-1.9 Glucose Negative (Normal) Protein Negative (Normal) Appearance Clear (Normal) pH 7.0 (Normal) Range: 5.0-7.5 Urine-Color Yellow (Normal) WBC Esterase Negative (Normal) Specific [place] 1.016 (Normal) Range: 1.005-1.030 :44 MICROALBUMIN: CREATININE RATIO Comments: PATIENT WAS FASTINGPERFORMED BY: [facility]amSaint [facility]ab[facility] Health CenterHkyomi9748 [facility] [id number] (97467) AND (49800) Microalb/Creat Ratio 2.8 {mg/g_creat} (Normal) Range: 0.0-30.0 Creatinine, Urine 61.0 mg/dL (Normal) Range: 15.0-278.0 Microalbumin, Urine 1.7 ug/mL (Normal) Range: 0.0-17.0 :44 METABOLIC PANEL, COMPREHENSIVE Comments: PATIENT WAS FASTINGPERFORMED BY: [facility]6370 [facility] [id number] (73142) ALT (SGPT) 16 [iU]/L (Normal) Range: 0-40 [...] Glucose, Serum 92 mg/dL (Normal) Range: 65-99 07-Pco-126605:44 CBC WITH MANUAL DIFF Comments: PATIENT WAS FASTINGPERFORMED BY: [facility]CoSaint [facility] CenterGepmqf2069 [facility] [id number] Information: [id number] (81413) Immature Grans (Abs) 0.0 {x10E3/uL} (Normal) Range: [...] 3.80-5.10 WBC 6.1 {x10E3/uL} (Normal) Range: 4.0-10.5 80-Qoq-025216:11 BILAT [facility] DIGITAL & CAD Radiology Report See Note (Normal) Comments: Exam Number: [id number] MAMMOGRAPHY - BILATERAL SCREENING INDICATION:Routine annual screening [...] of attaching a ResultCode to this exam.ADDENDUM: [id number] HPBI/MDS Reported By: ELEANOR ERNANDEZ M.D. 1-Vbu-046144:01 TSH (82536) Comments: PATIENT NOT FASTINGPERFORMED BY: [facility] Yglmsj6416 [facility] [id number] Information: [id number] TSH 0.474 {uIU/mL} (Normal) Range: 0.450-4.500 16-Apr-20108:21 Thin prep Pap (87430) Comments: of cuff, has had hysterectomy; Source.............VaginalLMP / Prev Treat...HystNo. of containers..01 CYTYC Thin Prep VialPATIENT NOT FASTINGPERFORMED BY: [facility] [address] [id number] Information: [id number] Note: PAPSMR (Normal) Comments: The Pap smear [...] hysterectomy.V72.31 ; Routine gynecological exami Davion Mosley Research Specialist (ASCP) 08-Exv-517354:57 ABDOMEN/PELVIS W/WO CONTRAST Radiology Report See Note (Normal) Comments: Exam Number: [id number] CLINICAL:Hydronephrosis CT ABDOMEN AND PELVIS WITHOUT / [...] theright-sided hydronephrosis. Reported By: SAVANA AVELAR M.D. 4-Cle-990532:44 Urinalysis, Office (45027) UA - LEUKOCYTE ESTERASE Negative (Normal) UA - NITRITE Negative (Normal) URINE UROBILINGN REYNA TIMED Normal mg/dL (Normal) UA - PROTEIN Negative mg/dL (Normal) UA - PH 6.5 (Normal) UA - BLOOD Hemolyzed Trace (Normal) UA - SPECIFIC GRAVITY 1.010 (Normal) UA - KETONES Negative mg/dL (Normal) UA - BILIRUBIN Negative (Normal) UA - GLUCOSE Negative (Normal) 25-Nyp-309028:45 KIDNEY (HP) Radiology Report See Note (Normal) Comments: Exam Number: [id number] CLINICAL:The patient is a 69-year-old female who [...] no hydronephrosis Reported By: ELEANOR ERNANDEZ M.D. 34-Cle-029045:14 BMP BUN/CRE 17.8 {RATIO} (Normal) Range: 10-20 [...] (Normal) GLU 90 mg/dL (Normal) Range: 70-110 52-Asj-915956:52 Iron and TIBC Comments: PATIENT NOT FASTINGPERFORMED BY: [employer] Fxfhnx1222 [facility] [id number] Iron Saturation 21 % (Normal) Range: 15-55 Iron, Serum 55 ug/dL (Normal) Range: 35-155 UIBC 202 ug/dL (Normal) Range: 150-375 Iron Bind.Cap.(TIBC) 257 ug/dL (Normal) Range: 250-450 82-Llm-495604:52 Renal function Panel (41936) Comments: PATIENT NOT FASTINGPERFORMED BY: [employer] Vwvtij7664 [facility] [id number] Albumin, Serum 3.7 g/dL (Normal) Range: 3.5-4.8 [...] Glucose, Serum 91 mg/dL (Normal) Range: 65-99 62-Oet-513768:52 Ferritin (27318) Comments: PATIENT NOT FASTINGPERFORMED BY: [facility] Taijcf0378 [facility] [id number] Ferritin, Serum 338 ng/mL (Abnormal) Range: 13-150 :52 CBC with manual diff Comments: PATIENT NOT FASTINGPERFORMED BY: [place] 8617370 [facility] [id number] Information: [id number] (65486) Baso (Absolute) 0.0 {x10E3/uL} (Normal) Range: 0.0-0.2 [...] 3.80-5.10 WBC 7.9 {x10E3/uL} (Normal) Range: 4.0-10.5 08-Avc-017266:20 TSH (46159) Comments: PATIENT NOT FASTINGPERFORMED BY: [facility]6370 [facility] [id number] TSH 0.830 {uIU/mL} (Normal) Range: 0.450-4.500 05-Omw-959459:20 CBC with manual diff Comments: PATIENT NOT FASTINGPERFORMED BY: LabCoKrista Ville 7470970 [facility] [id number] Information: [id number] (84070) Hematology Comments: Note: (Normal) Comments: Verified by [...] 3.80-5.10 WBC 21.6 {x10E3/uL} (Abnormal) Range: 4.0-10.5 62-Udf-866969:58 Serum Protein Comments: PATIENT NOT FASTINGPERFORMED BY: [facility]CoSaint [facility]ab[facility] Health CenterGkedir7029 [facility] [id number] Information: ADD [id number] NO DRAW FEE Electrophoresis (SPEP) (49988) A/G Ratio 1.6 (Normal) Range: 0.7-2.0 Please note: SPRCS (Normal) Comments: Protein electrophoresis scan will follow via computer, mail, orcourier delivery. Iccbp-5-Ranqgyuf 0.2 g/dL (Normal) Range: 0.1-0.4 Bxike-4-Scwrmfmh 0.6 g/dL (Normal) Range: 0.4-1.2 Beta Globulin 0.9 g/dL (Normal) Range: 0.6-1.3 Gamma Globulin 0.9 g/dL (Normal) Range: 0.5-1.6 Globulin, Total 2.6 g/dL (Normal) Range: 2.0-4.5 M-Slim Not Observed g/dL (Normal) Albumin 4.2 g/dL (Normal) Range: 3.2-5.6 Protein, Total, Serum 6.8 g/dL (Normal) Range: 6.0-8.5 01-Mef-145902:58 VITAMIN B-12 (CYANOCOBALAMIN) Comments: PATIENT NOT FASTINGPERFORMED BY: [employer] Xoegpk3014 [facility] [id number] (00751) Vitamin B12 300 pg/mL (Normal) Range: 211-911 85-Pzh-332481:58 SED RATE ERYTHROCYTE (58746) Comments: PATIENT NOT FASTINGPERFORMED BY: [facility] VisionDr. Dan C. Trigg Memorial HospitalFvqkub2325 [facility] [id number] Sedimentation Rate-Westergren 2 mm/h (Normal) Range: 0-30 44-Pnq-299056:20 CBC With Differential/Platelet Comments: PATIENT WAS FASTINGPERFORMED BY: [employer] Xwpwtw2009 [facility] [id number] Baso (Absolute) 0.1 {x10E3/uL} (Normal) Range: 0.0-0.2 [...] 3.80-5.10 WBC 5.4 {x10E3/uL} (Normal) Range: 4.0-10.5 89-Qtw-868244:20 Comp. Metabolic Panel (14) Comments: PATIENT WAS FASTINGPERFORMED BY: [facility]CoSaint Barnabas [facility] Health CenterForvom1515 [facility] [id number] ALT (SGPT) 19 [iU]/L (Normal) Range: 0-40 [...] With LDL/HDL Comments: PATIENT WAS FASTINGPERFORMED BY: [employer]70 [facility]ersAt[facility] [id number] Ratio HDL Cholesterol 66 mg/dL (Normal) Comments: [...] 1.050 {uIU/mL} Comments: PATIENT WAS FASTINGPERFORMED BY: [employer]70 [facility]ersAt[facility] [id number] :20 (Normal) Range: 0.450-4.500 :50 CBCD,SMEAR DIFF [...] 47-70 WBC 6.7 K/mm3 (Normal) Range: 4.4-11.0 09-Pnt-90464:50 COMP METABOLIC A/G 1.1 {RATIO} (Normal) Range: [...] Report See Note (Normal) Comments: Exam Number: [id number] MAMMOGRAM, BILATERAL SCREENING DIGITAL AND CAD HISTORYRoutine [...] mammograms werealso examined with computer-aided detection software (Image[employer] Strategy 1, H-care, [employer]ensing Electromagnetic Plus.). Reported By: ELEANOR ERNANDEZ M.D. :28 CBCD,SMEAR [...] 47-70 WBC 5.4 K/mm3 (Normal) Range: 4.4-11.0 62-Gla-[id number]:28 COMP METABOLIC A/G 1.2 {RATIO} (Normal) Range: [...] :28 TSH 0.38 {uIU/mL} (Normal) Range: 0.34-4.82 7-[id number]:04 Rapid Strep Test, Office (04003) Rapid Strep Test, Office Negative (Normal) [id number]:34 BILAT SCRN DIGITAL & CAD Radiology Report See Note (Normal) Comments: Exam Number: [id number] MAMMOGRAM, BILATERAL SCREENING DIGITAL AND CAD HISTORYRoutine [...] mammograms werealso examined with computer-aided detection software ([employer], [employer] Reported By: ELEANOR ERNNADEZ M.D. [id number]:31 DEXA BONE DENSITY STUDY () Radiology Report See Note (Normal) Comments: Exam Number: [id number] BONE DENSITOMETRY HISTORYPostmenopausal. TECHNIQUE Bone densitometry of [...] withinnormal limits. Reported By: ELEANOR ERNANDEZ M.D. 71-[id number]:39 COMP METABOLIC A/G 1.1 {RATIO} (Normal) Range: [...] up in 3 months with [facility] Indication: Hypertensive heart disease Hematuria, unspecified : [...] in Sep 2010 make apt [facility] per pt request Indication: Hydronephrosis Hydronephrosis : Follow up for well woman with [facility] per pt request Indication: Hydronephrosis Anemia : FOLLOW UP IN 2 WEEKS January 07 by [facility] Indication: Anemia Abdominal pain, acute, generalized : FOLLOW UP IN 1 WEEK with [facility] Indication: Abdominal pain, acute, generalized Diarrhea : [...] Indication: Bronchitis Planned Observations Metabolic Panel, Comprehensive ([id number])Indication: Hypercholesterolemia On: 8-Xag-434538:52 Request Comments: Jun 2018 LIPID PANEL ([id number])Indication: Hypercholesterolemia On: 8-Cfr-498668:51 Request Comments: Jun 2018 URINALYSIS ([id number])Indication: Hypertension, essential, benign On: 16-Hlk-828769:52 Request MICROALBUMIN: CREATININE RATIO ([id number]) AND ([id number])Indication: Hypertension, essential, benign On: 34-Cjl-672098:52 Request Metabolic Panel, Comprehensive ([id number])Indication: Hypertension, essential, benign On: 31-Bpi-443570:50 Request Comments: send to [facility] CBC, Platelets & Auto Diff (52397)Indication: Hypertension, essential, benign On: 44-Aav-773629:50 Request Comments: send to [facility] TSH ([id number])Indication: Hypothyroidism On: 21-Wvd-131473:50 Request Comments: send to [facility] LIPID PANEL ([id number])Indication: Hypercholesterolemia On: 50-Dqq-731454:50 Request Comments: send to [facility] URINALYSIS ([id number])Indication: Hypertension, essential, benign On: 1-Dit-604609:03 Request Comments: today MICROALBUMIN: CREATININE RATIO ([id number]) AND ([id number])Indication: Hypertension, essential, benign On: 9-Hyy-087241:03 Request Comments: today TSH ([id number])Indication: Hypothyroidism On: 1-Rjg-164375:03 Request Comments: Jul 2017 MICROALBUMIN: CREATININE RATIO ([id number]) AND (33971)Indication: Hypertension, essential, benign On: 85-Tvo-801315:51 Request Comments: Mar 2017 URINALYSIS ([id number])Indication: Hypertension, essential, benign On: 78-Gfc-451001:51 Request Comments: Mar 2017 TSH ([id number])Indication: Hypertension, essential, benign On: 48-Qpq-954927:51 Request Comments: Mar 2017 CBC, Platelets & Auto Diff ([id number])Indication: Hypertension, essential, benign On: 59-Kvm-702166:51 Request Comments: Mar 2017 Metabolic Panel, Comprehensive ([id number])Indication: Hypertension, essential, benign On: 41-Lrz-463116:51 Request TSH (THYROID STIMULATING HORMONE) (78696)Indication: Hypothyroidism On: 98-Vwd-416470:53 Request HEPATIC FUNCTION PANEL (68460)Indication: Hypertension, essential, benign On: 62-Blc-219468:47 Request VITAMIN B12 AND FOLATES (23243)Indication: Vitamin B 12 deficiency On: 3-Tbx-127212:52 Request CALCIFEDIOL (50512)Indication: DEFICIENCY, VITAMIN D NOS On: 2-Ohb-626969:52 Request Urinalysis, Office (16095)Indication: Hematuria, unspecified On: 19-Nrr-185379:35 Request MICROALBUMIN URINE QUANT (02364)Indication: Hypertensive heart disease On: 06-Gjz-732924:25 Request FECAL OCCULT HGB ASSAY- tubes sent home (93834)Indication: Well woman exam On: 0-Gkj-677739:51 Request OCCULT BLOOD FECES SCREEN- card done in office (20459)Indication: Well woman exam On: 0-Twn-747504:51 Request Renal function Panel (18847)Indication: Hydronephrosis On: 8-Lpp-836549:22 Request Iron (85571)Indication: Anemia On: 89-Kzb-254963:39 Request Iron Binding Capacity (TIBC) (47254)Indication: Anemia On: 61-Dev-961095:39 Request OVA & PARASITE DIR SMEAR (50540)Indication: Diarrhea On: 53-Lmk-145625:50 Request OCCULT BLOOD FECES SCREEN ([id number])Indication: Diarrhea On: 80-Fez-514429:50 Request LEUKOCYTE COUNT, FECAL (88728)Indication: Diarrhea On: 10-Rya-113379:50 Request C-DIFFICILE, STOOL ([id number])Indication: Diarrhea On: 01-Avy-853290:50 Request LORNA CULTURE-STOOL (83049)Indication: Diarrhea On: 87-Qed-447186:50 Request HEPATIC FUNCTION PANEL (54079)Indication: Hypercholesterolemia On: 84-Wxy-346432:46 Request Lipid Panel (18060)Indication: Hypercholesterolemia On: 42-Pvp-407761:46 Request Comments: in three months (approximately) TSH (62236)Indication: Hypothyroidism On: 89-Oen-146745:06 Request METABOLIC PANEL, COMPREHENSIVE (19322)Indication: Hypertensive heart disease On: 82-Dwp-879138:06 Request LIPID PANEL (17967)Indication: Hypertensive heart disease On: 56-Qya-380240:06 Request CBC WITH MANUAL DIFF ([id number])Indication: Hypertensive heart disease On: 53-Dgh-744753:06 Request LORNA CULTURE-OTHER ([id number])Indication: Pharyngitis, acute On: 0-Qpm-955468:04 Request CBC (Auto) ([id number])Indication: Hypercholesterolemia On: 12-Nfx-11724:13 Request Lipid Panel (56030)Indication: Hypercholesterolemia On: :13 Request Metabolic Panel, Comprehensive ([id number])Indication: Hypercholesterolemia On: 81-Ghn-97072:13 Request Comments: in six months (approximately) TSH (45790)Indication: Hypothyroidism On: 05-Kmz-524306:06 Request LIPID PANEL ([id number])Indication: Hypertension On: 81-Ofh-881777:01 Request Planned Encounters Medical; 3 Month FU - On: 14-Jun-2018 10:45 [facility] Sarai Bro CNP, CNP, Mary E Planned Procedures Flu Vaccine (Quadrivalent) On: 02-Jun-2018 Intent 84263Io: Sarai Bro CNP Comments: Lot #[id number]/30/[id number]-L dltd, IMDose prefilled syringegiven by: SHARONDA CHOINVIS reviewed and ABN signed Sarai Bro CNP MAMMOGRAM BREAST BILATERAL On: 27-May-2018 Intent SCREENING DIGITAL (98890)By: Sarai Bro CNP, CNP, Mary E Radiology - Femur - RightBy: On: 02-Mar-2018 Intent Sarai Bro CNP, CNP, Mary E DEXA SCAN AXIAL SKELETON On: 19-Oct-2017 Intent (04088)By: Sarai Bro CNP, CNP, Mary E Aerosol Treatment (73648)By: On: 07-Sep-2017 Intent Kelly Naqvi Comments: Lungs clear after aerosol treatment Flu Vaccine (Quadrivalent) On: 13-Apr-2017 Intent 71071Cy: Giselle Silva LPN Comments: InfluenzaLot #[id number]/18/18Site-L dltd, IMDose prefilled syringeVIS and ABN signedgiven by:ROSA MARIA cade MAMMOGRAM BREAST BILATERAL On: 05-Jan-2017 Intent SCREENING DIGITAL (92202)By: Comments: after Apr 24 2017 Sarai Bro CNP, CNP, Mary E DEXA SCAN AXIAL SKELETON On: 05-Jan-2017 Intent ([id number])By: Sarai Bro CNP Comments: After Apr 24 2017 Sarai Bro CNP Flu Vaccine (Quadrivalent) On: 06-Jul-2016 Intent 03859Cs: Giselle Silva LPN Comments: InfluenzaLot #Lot [id number]/30/17Site-L dltd, IMDose prefilled syringeVIS and ABN signedgiven by:ROSA MARIA cade MAMMOGRAM, SCREENING, BOTH On: 31-Mar-2016 Intent BREAST ([id number])By: Sarai Bro CNP, CNP, Mary E MAMMOGRAM, SCREENING, BOTH On: 17-Feb-2016 Intent BREAST ([id number])By: Sarai Bro CNP, CNP, Mary E PHYSICAL THERAPY EVALUATION On: 28-Jan-2016 Intent (06450)By: Sarai Bro CNP, CNP, Mary E PHYSICAL THERAPY EVALUATION On: 28-Jan-2016 Intent (36005)By: Sarai Bro CNP, CNP, Mary E Toradol Injection, 30 mg On: 28-Jan-2016 Intent (J1885)By: Roccoyin CARNEYSarai CNP, Mary E Radiology - Lumbar SpineBy: On: 28-Jan-2016 Intent Sarai Bro CNP, CNP, Mary E Radiology - Knee - LeftBy: On: 28-Jan-2016 Intent Sarai Bro CNP, CNP, Mary E Aerosol Treatment (26789)By: On: 24-Dec-2015 Intent Sarai Bro CNP, CNP, Mary E Flu Vaccine (Quadrivalent) On: 10-May-2015 Intent 97079Hd: Hang ANGELIKA Sarai Moon Comments: Lot:[id number]:02/06/16Dose:0.5mLRoute:IMSite:L DltdGiven By:Kacie signed Hang ANGELIKA Sarai Moon DEXA SCAN AXIAL SKELETON On: 19-Mar-2015 Intent ([id number])By: Hang CARNEY Sarai Busby CNP MAMMOGRAM, SCREENING, BOTH On: 11-Feb-2015 Intent BREAST ([id number])By: Hang ANGELIKASarai CNP, Mary E DEXA SCAN AXIAL SKELETON On: 11-Feb-2015 Intent (92958)By: Roccoyin CARNEYSarai CNP, Mary E Solu -Medrol Injection, 125 On: 25-Jul-2014 Intent mg (J2930)By: Hang CARNEY, Comments: [id number] 5.17right gm125 mgas, TOOL DESIGN CHECKER Sarai Busby CNP Aerosol Treatment (90605)By: On: 25-Jul-2014 Intent Sarai Bro CNP, CNP, Mary E Toradol Injection, 30 mg On: 18-Jul-2014 Intent (J1885)By: Roccoyin CARNEYSarai CNP, Mary E Radiology - Lumbar SpineBy: On: 18-Jul-2014 Intent Sarai Bro CNP, CNP, Mary E Radiology - Hip - RightBy: On: 18-Jul-2014 Intent Sarai Bro CNP, CNP, Mary E Prevnar 13 (56261)By: Ricardo On: 16-Jul-2014 Intent Giselle CRANE Comments: [id number] arm, IMAS Bone Density StudyBy: Hang On: 15-May-2014 Intent Sarai CARNEY CNP, Mary E ADMINISTRATION OF INFLUENZA On: 15-May-2014 Intent VIRUS VACCINE (G0008)By: Tiffaniewojciechyin CARNEY Sarai Bro CNP Sarai Moon FLU VAC, SPLIT, >3 YEARS, On: 15-May-2014 Intent INTRAMUSC (59089)By: Hang Comments: Lot:[id number]:04/24Dose:0.5mLRoute:IMSite:L DltdGiven By:FIDENCIO signed Sarai CARNEY CNP Sarai Moon SPECIMEN HNDLNG/TRNSPRT, OFFC On: 22-Mar-2014 Intent > LAB ([id number])By: Hang CARNEY Sarai Bro CNP Sarai Moon BILATERAL MAMMOGRAMS On: 18-Dec-2013 Intent (92048)By: Hang CARNEY Sarai Bro ANGELIKA Sarai Moon Aerosol Treatment (19791)By: On: 22-Sep-2013 Intent Roccoyin CARNEY Sarai Bro CNP Sarai Moon Wax CurettesBy: Roccoyin ANGELIKA, On: 22-Sep-2013 Intent Sarai Busby CNP Ear Irrigation (60636)By: On: 22-Sep-2013 Intent Sarai Bro CNP, CNP, Mary E Eprescribed prescriptions On: 18-Aug-2013 Intent (G8553)By: Lucrecia Vargas Eprescribed prescriptions On: 05-May-2013 Intent (G8553)By: Hang CARNEY Sarai Bro CNP Sarai Moon ADMINISTRATION OF INFLUENZA On: 05-May-2013 Intent VIRUS VACCINE (G0008)By: Comments: lot # [id number] 6.2014site- L dltdroute-IMdose- 0.5mlRICHARD and ROMEL signedPenny Hauser LPN, LPN FLU VAC, SPLIT, >3 YEARS, On: 05-May-2013 Intent INTRAMUSC (65008)By: Penny Irving LPN MAMMOGRAM, SCREENING, BOTH On: 16-Dec-2012 Intent BREASTS (59603)By: Hang CARNEY Sarai Moon Ciesyin CARNEY Rianna Spirometry (66773)By: Aristides On: 16-Dec-2012 Intent Penny CRANE Comments: mild airway obstruction Aerosol Treatment (17818)By: On: 30-Mar-2012 Intent Hang CARNEY RiannaRed Bro CNP Rianna PFT - CompleteBy: Hang CARNEY, On: 01-Mar-2012 Intent Rianna Ciwojciechyin CARNEY Rianna Inhaler Demonstration On: 28-Dec-2011 Intent (67253)By: Hang CARNEY RiannaRed Bro CNP Rianna Pulse Oximetry (14298)By: On: 28-Dec-2011 Intent Tiffaniewojciechyin CARNEY Sarai Moon Tiffaniebonita ANGELIKA Rianna Eprescribed prescriptions On: 22-Apr-2011 Intent (G8553)By: Hang CARNEY RiannaRed Bro CNP Rianna Eprescribed prescriptions On: 21-Oct-2010 Intent (G8553)By: Hang CARNEY Rianna Ciwojciechyin CARNEY Rianna Eprescribed prescriptions On: 21-Oct-2010 Intent (G8553)By: Hang CARNEY Rianna Ciwojciechyin CARNEY Rianna MAMMOGRAM, SCREENING, BOTH On: 15-Apr-2010 Intent BREASTS (17373)By: Hang CARNEY RiannaRed Bro CNP Rianna Ultrasound - RenalBy: Hang On: 23-Dec-2009 Intent ANGELIKA RiannaRed Bro CNP Rianna Comments: To be done on December 30 CT - Abdomen & Pelvis (IV On: 17-Dec-2009 Intent Contrast Needed)By: Hang CARNEY RiannaRed Bro CNP Rianna ADMINISTRATION OF INFLUENZA On: 22-May-2009 Intent VIRUS VACCINE (G0008)By: Karina Nina LPN FLU VAC, SPLIT, >3 YEARS, On: 22-May-2009 Intent INTRAMUSC (84839)By: Kelle Comments: Lot #[id number]-left deltoidgiven by:Karina PLAZA LPN Pulse Oximetry (78422)By: On: 25-Sep-2008 Intent PRESTON Thompson ADMINISTRATION OF INFLUENZA On: 13-Jun-2008 Intent VIRUS VACCINE (G0008)By: Comments: lot #[id number] exp- 01/15site-left delroute-imdose- 0.5 Penny Irving LPN FLU VAC, SPLIT, >3 YEARS, On: 13-Jun-2008 Intent INTRAMUSC (82597)By: Penny Irving LPN MAMMOGRAM, SCREENING, BOTH On: 28-May-2008 Intent BREASTS (86379)By: Susan Lee MD Bio Z (53601)By: Rosa CHRISTIANSEN, On: 28-Nov-2007 Intent Susan Sánchez SPECIMEN HNDLNG/TRNSPRT, OFFC On: 12-Oct-2007 Intent > LAB (15718)By: Tyesha Ramos DO Bone Density StudyBy: Rosa On: 18-Feb-2007 Intent Susan CHRISTIANSEN Comments: ache in back MAMMOGRAM, SCREENING, BOTH On: 18-Feb-2007 Intent BREASTS (57153)By: Susan Lee MD Bio Z (11995)By: Rosa CHRISTIANSEN, On: 20-Jul-2006 Intent Susan Sánchez Planned Medications INJECTION, KETOROLAC TROMETHAMINE, PER 15 MG Ordered: 18-Jul-2014 Pending Ciesa OVERLOCK SLEEVE SETTER, Rianna Ciesa OVERLOCK SLEEVE SETTER, Rianna INJECTION, KETOROLAC TROMETHAMINE, PER 15 MG Ordered: 28-Jan-2016 Pending Ciesa OVERLOCK SLEEVE SETTER, Rianna Ciesa OVERLOCK SLEEVE SETTER, Rianna INJECTION, METHYLPREDNISOLONE SODIUM SUCCINATE, UP TO 125 MG Ordered: 25-Jul-2014 Pending Ciesa OVERLOCK SLEEVE SETTER, Rianna Ciesa OVERLOCK SLEEVE SETTER, Rianna Instructions Name Dates Details Nonsmoker : [...] The patient does have durable power of environmental attorney and living will. The patient has noticed nothing from the geriatic depression scale. Other providers contributing to the katty ent's care are drums teacher (Dr paz ), guide visitor (Dr Vazquez ), urologist (Dr Pope ) [...]
--- OUTSIDE RECORDS SUMMARY | 2018-09-02 07:03 | XMS RPT_ITS | Continuity of Care Document ---
:1940 Author Organization [facility] Address [address] [facility] [address] [place] [address] Phone Care Team Providers Name Role Phone Tiffaniebonita ANGELIKA, Rianna Unavailable Amanda CHRISTIANSEN, Higinio Longoria Unavailable Turner CHRISTIANSEN, Nahun Plaza [facility], Eugenie Tovar Unavailable Rosa CHRISTIANSEN, [...] on exertion (R06.02, 786.05) Comments: Stress ECho 416-20 EF 55%, Echo annuloplasty ring in mitral [...] {Tablet} Refills: 0 Ordered:28-Jan-2016 Sarai Bro CNP, CNP Rianna Start : 28-Jan-2016 Active Comments:Medication taken as [...] days Refills: 0 Ordered:11-Feb-2015 Sarai Bro CNP, CNP Rianna Start : 11-Feb-2015 Active Breo Ellipta 100-25 MCG/INH Inhalation Aerosol Powder Breath Activated 1 (one) Puff Puff qd for 30 days Quantity: 30 {Inhalation} Refills: 4 Ordered:02-Mar-2018 Giselle Silva LPN Start : 25-Jan-2018 Active Comments:diane manages CALCIUM, 500MG (Oral Tablet) 2 (two) Tablet qd for 0 days Refills: 0 Ordered:22-Apr-2011 Slarb MACHINE TENDER, Giselle Start : 22-Apr-2011 Active COQ10, 100MG (Oral Capsule) 1 (one) Capsule Capsule daily for 0 days Quantity: 30 {Capsule} Refills: 0 Ordered:25-Jul-2014 Aristides MACHINE TENDERPenny Start : 18-Jul-2014 Active Coreg 6.25 MG Oral Tablet 2 (two) Tablet two times daily for 0 days Quantity: 180 {Tablet} Refills: 3 Ordered:05-Oct-2016 Hang CARNEY, Sarai Jung CNP Start : 05-Oct-2016 Active Cosamin ASU for [...] {Tablet} Refills: 6 Ordered:02-Mar-2018 Hang CARNEY, Sarai Jung CNP Start : 26-Nov-2017 Active Comments:Take w/ water, 30 min before you eat, or drink, or take medicine. Avoid laying down for 30 minutes after. Start 11/24/2017 stop 5 years after 11/2022 Lasix 40 MG Oral Tablet 1 (one) Tablet every other day for 360 days Quantity: 90 {Tablet} Refills: 0 Ordered:13-Apr-2017 Hang CARNEY, Sarai Jung CNP Start : 13-Apr-2017 Active LISINOPRIL, 40MG (Oral Tablet) 1 Tablet qd for 0 days Quantity: 90 {Tablet} Refills: 3 Ordered:16-Oct-2011 Aristides ROSA MARIAPenny Start : 16-Oct-2011 Active Pacerone 200 MG Oral Tablet 1/2 (one half) Tablet daily for 0 days Quantity: 60 {Tablet} Refills: 3 Ordered:31-Mar-2016 Slarb Giselle CRANE Start : 31-Mar-2016 Active Synthroid 25 MCG Oral Tablet 1 Tablet QD for 0 days Quantity: 90 {Tablet} Refills: 3 Ordered:01-May-2018 Hang CARNEY, Sarai Jung CNP Start : 01-May-2018 Active Vasculera Oral Tablet 1 (one) Tablet Tablet daily for 0 days Quantity: 30 {Tablet} Refills: 0 Ordered:05-Oct-2016 Hang CARNEY, Sarai Jung CNP Start : 05-Oct-2016 Active Comments:Dr Patel Vitamin D 2000 UNIT Oral Capsule 1 (one) Capsule Capsule daily for 30 days Quantity: 30 {Capsule} Refills: 11 Ordered:02-Mar-2018 Sarai Bro CNP, CNP, Mary E Start : 26-Nov-2017 Active Zithromax Z-Kevin 250 MG Oral Tablet 1 Tablet uad for 0 days Quantity: 1 {Package} Refills: 0 Ordered:18-May-2018 Hang CARNEY, Sarai Jung CNP Start : 18-May-2018 Active ALBUTEROL SULFATE HFA, [...] : 18-Aug-2013 End : 28-Aug-2013 Inactive DRISDOL, 27689NDVF (Oral Capsule) 1 Capsule twice weekly for [...] NOTES: [facility] Cardiovascular Services [address] [place] [address] Venous Duplex US - Paulie Extrem 04/07/18 1000 MR#: [id number] Acct: [id number] Name: VALERIE CRAIN Rep #: [id number] : 1940 77 From: Higinio Patel MD [...] Date Higinio Patel MD CC: Sarai Bro NP; Higinio Patel MD Date Dictated: 04/07/18 1000 Date Transcribed: 04/08/18 1605 Nutrition Teacher: Signed 02-Mar-2018 Femur Min 2 Views Result: Comments: See Note; NOTES: [facility] Imaging Services [address] [place] [address] Femur Min 2 Views MR#: [id number] Acct: [id number] Name: VALERIE CRAIN Rep #: [id number] : 1940 F 77 From: Christiano Croft MD PCP: Sarai Bro NP Status: REG CLI Study: Femur Min 2 Views Date of Exam: 03/02/18 Exam# [id number] Ordering Dr: Sarai Bro STUDY: X-RAY - [...] vice support , CC: Sarai Bro NP Nutrition Teacher: Signed 10-Feb-2018 Echocardiogram Complete Result: Comments: See Note; NOTES: [facility] Cardiovascular Services [address] [place] [address] Echo Complete 02/10/18 1100 MR#: [id number] Acct: [id number] Name: VALERIE CRAIN Rep #: [id number] : 1940 77 From: Amilcar Paz MD Attending Dr: Jennifer Goodwin Status: REG CLI Ordering Dr: Jennifer Goodwin Date: 02/10/18 Location: [facility] Sex: F C Admitted: [facility] For Study: DYSPNEA Procedure This was a 2D Doppler, Color Flow transthoracic echocardiogram. Exam performed in department. Left Ventricle Normal LV size. Transmitral and pulmonary venous doppler soife w suggestive of impaired relaxation of left [...] Physician: SARAI BRO Performed By: Mary Hines, BRANT, RVT 02/10/18 1241 Date Amilcar Paz MD CC: Sarai Bro DATA SYSTEMS ANALYST; Jennifer Goodwin Date Dictated: 02/10/18 1100 Date Transcribed: 02/10/18 1241 Nutrition Teacher: Signed 28-Jan-2018 Cardiology Visit Report Result: Comments: See Note; NOTES: [facility] [address] [place] [address] OFFICE VISIT Date of Service: 01/28/18 MR#: [id number] Acct: [id number] Name: VALERIE CRAIN Rep #: [id number] : 1940 Provider: Jennifer Goodwin Age/Sex: 77/F Location: [facility] Status: Signed HPI HPI Details: VALERIE [...] for her age. 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 She does have [...] valve disorder (Chronic) Paroxysmal atrial fibrillation (Chronic) MCFP (current) use of anticoagulants (Chronic) Benign essential [...] was generated using a voice recognition syst [employer] and there may be incorrect words, spelling or punctuation errors that were not noted when reviewing the office note prior to saving. Follow Up 6 Months (RECORD LIBRARIAN) Coding Level of Care Code Off vis,est,l [...] [facility] Medical Records Department [address] [place] [address] Downtime Report MR#: [id number] Acct: [id number] Name: VALERIE CRAIN Rep #: [id number] : 1940 77 From: Anuj Webster PCP: Sarai Bro NP Status: REG RCR This patient was seen during an EMR downtime January 10, 2018 - January 17, 2018. This patient may have a combination of pa per and electronic documentation or all paper documentation. All documentation is viewable within the e-chart portion of [employer] for each patient visit. 09-Nov-2017 Dexa Bone Density Study Result: Comments: See Note; NOTES: [facility] Imaging Services [address] [place] [address] Dexa Bone Density Study MR#: [id number] Acct: [id number] Name: VALERIE CRAIN Rep #: [id number] : 1940 F 77 From: Henry Jones MD PCP: Sarai Bro NP Status: REG CLI Study: Dexa Bone Density Study Date of Exam: 11/09/17 Exam# [id number] Ordering Dr: Sarai Bro STUDY: DUAL E [...] Henry Jones MD at 13:40 EDT Tel [phone], Service support , CC: Sarai Bro NP Nutrition Teacher: Signed 27-Jul-2017 Cardiology Visit Report Result: Comments: See Note; NOTES: [facility] [address] [place] [address] OFFICE VISIT Date of Service: 07/27/17 MR#: [id number] Acct: [id number] Name: SEAN CRAIN #: [id number] : 1940 Provider: Amilcar Paz MD Age/Sex: 77/F Location: [facility] Status: Signed HPI 6 M FU (pt asked to be seen sooner than Sean): Chief Complaint: Follow-up visit With complaint s [...] (pt asked to be seen sooner than Sean) Is patient in pain?: No Allergies No [...] 07/27/17] Ejection fraction %: 40 to 44 [facility] Medical History Dilated cardiomyopathy (Chronic) Long-term use of high-risk medication (Chronic ) History of mitral valve disorder (Chronic) Paroxysmal atrial fibrillation (Chronic) MCFP (current) use of anticoagulants (Chronic) Benign essential [...] Detail Follow Up 6 Months (mmm) 07/27/17 0166 <Electronically signed by Amilcar Paz MD> Date Amilcar Cummins Signature: Date (if applicable) CC: Sarai Bro DATA SYSTEMS ANALYST 17-May-2017 SCREENING MAMM (CAD), BILAT Result: Comments: See Note; NOTES: [facility] Imaging Services [address] [place] [address] SCREENING MAMM (CAD), BILAT MR#: [id number] Acct: [id number] Name: SEAN CRAIN Rep #: [id number] : 1940 F 76 From: Henry Jones MD PCP: Sarai Bro Status: REG CLI Study: SCREENING MAMM (CAD), BILAT Date of Exam: 05/17/17 Exam# [id number] Ordering Dr: Sarai Bro MAMMOGRAPH Y - [...] delay biopsy of a clinically suspicious abnormality. [id number] Electronically Signed: Henry Jones MD at 10:21 EDT Tel [phone], Service support , CC: Sarai Bro Nutrition Teacher: Signed 27-Feb-2017 Carotid Duplex Ultrasound Result: Comments: See Note; NOTES: [facility] Cardiovascular Services [address] [place] [place] [address] Carotid Duplex Ultrasound 02/26/17 1046 MR#: [id number] Acct: [id number] Name: SEAN ABEBE Rep #: [id number] : 1940 76 From: Malcolm Hill MD Attending Dr: Jennifer Goodwin Status: REG CLI Ordering Dr: Jennifer Goodwin Date: 02/26/17 Location: [facility] Sex: F C Admitte d: Reason [...] the left bulb. Procedure Carotid Duplex 9 9890. The exam was diagnostic. Exam performed in department. Interpretation Summary Mild (<50%) stenosis right extracranial internal carotid. Mild (<50%) stenosis left extracranial inte rnal carotid. Flow within the vertebral arteries is antegrade bilaterally. Ordering Physician: Jennifer Russell Referring Physician: Sarai Bro Performed By: Nava Diaz RDCS, RVT 02/27/17 1103 Date Malcolm Hill MD CC: Sarai Bro; Jennifer Goodwin Date Dictated: 02/26/17 1046 Date Transcribed: 02/27/17 1103 Nutrition Teacher: Signed 03-Sep-2016 Chest PA and Lateral Result: Comments: See Note; NOTES: [facility] Imaging Services [address] [place] [address] Verdana 4d Chest PA and Lateral MR#: [id number] Acct: [id number] Name: SEAN CRAIN Rep # : [id number] : 1940 F 76 From: Henry Jones MD PCP: Sarai Bro Status: REG CLI Study: Chest PA and Lateral Date of Exam: 09/03/16 Exam# [id number] Ordering Dr: Nahun Vazquez MD STUD Y: [...] Henry diop MD at 12:41 EST Tel [phone], Service support [phone], CC: Sarai Bro; Nahun Vazquez MD Nutrition Teacher: Signed 28-Aug-2016 Echocardiogram Complete Result: Comments: See Note; NOTES: [facility] Cardiovascular Services [address] [place] [address] Echo Complete 08/28/16 1003 MR#: [id number] Acct: [id number] Name: SEAN CRAIN p #: [id number] : 1940 76 From: Amilcar Paz MD Attending Dr: Amilcar Paz MD Status: REG CLI Ordering Dr: Amilcar Paz MD Date: 08/28/16 Location: [facility] Sex: F C Admitted: Reason For Study: [facility] Procedure This was a 2D [...] Dictated: 08/28/16 1003 Date Transcribed: 08/28/16 1225 Nutrition Teacher: Signed 24-Apr-2016 Bilat Scrn Digital AND CAD Result: Comments: See Note; NOTES: [facility] Imaging Services [address] [facility] [address] Verdana 4d Bilat Scrn Digital AND CAD MR#: [id number] Acct: [id number] Name: SEAN CRAIN Rep #: [id number] : 1940 F 75 From: Henry Jones MD PCP: Sarai Bro Status: REG CLI Study: Bilat Scrn Digital AND CAD Date of Exam: 04/24/16 Exam# [id number] Ordering Dr: Sarai Bro MAMMOGRAPHY - BILATERAL [...] significant change since the prior study. ___ [facility]/Bilat Scrn Digital AND CAD IMPRESSION: Stable bilateral screening mammogram. Yearly follow-up mammogram recommended. (A) ASSESSMENT CATEGORY: BIRADS Category 1: Negative. A letter regarding these results will be sent to the patient by the facility within 30 days. Approximately 10% of breast cancers are n ot detected by mammography. A normal mammogram should not delay biopsy of a clinically suspicious abnormality. [id number] Electronically Signed: Henry Jones MD at 10:58 EDT Tel [phone], Service support [phone], CC: Sarai Bro Nutrition Teacher: Signed 04-Mar-2016 PT D/C Summary (1) Result: Comments: See Note; NOTES: [facility] [address] [place] [address]. [address] [place], [place] [address] Fax REHABILITATION RVICES DISCHARGE SUMMARY MR#: [id number] Acct: [id number] Name: SEAN CRAIN Rep #: [id number] : 1940 75 From: Giselle NELSON Referring [...] please feel free to call me at [phone]. Thank you for the referral of this patie nt. Sincerely, Giselle Yan <Electronically signed by Giselle Yan MPT> 03/04/16 1917 CC: Sarai Bro Signed 04-Feb-2016 Inital Evaluation (1) - PT Result: Comments: See Note; NOTES: [facility] [address] [place], [place] [address] Fax REHABILITATION SE MEDEROS INITIAL EVALUATION MR#: [id number] Acct: [id number] Name: SEAN CRAIN Rep #: [id number] : 1940 75 From: Giselle Yan MPT Referring Dr.: Sarai Bro Status: REG RCR Insurance: MEDICARE PART A B [facility] Patient's Visit Information SEAN CRAIN is [...] to be FAXED BACK to us at [phone] for Medicare purposes . Please let me [...] [facility] [address] [place] [address] Verdana 4d Knee 4 or More Views MR#: [id number] Acct: [id number] Name: SEAN DWYER Rep #: [id number] : 1940 F 75 From: Shreyas Beaver MD PCP: Sarai Bro Status: REG CLI Study: Knee 4 or More Views Date of Exam: 01/28/16 Exam# [id number] Ordering Dr: Sarai Bro STUDY: X-RAY - [...] MD at 19:39 EDT , Service support [phone], ORDER # : [id number] RAD/Knee 4 or More Views IMPRESSION: No acute abnormality. Mild degenerative changes. Electronically Signed: Shreyas Beaver MD at 19:39 EDT , Service sup port [phone], CC: Sarai Bro Nutrition Teacher: Signed 28-Jan-2016 L/S Spine Min 4 Views Result: Comments: See Note; NOTES: [facility] Imaging Services [address] [place] [address] Verdana 4d L/S Spine Min 4 Views MR#: [id number] Acct: [id number] Name: SEAN BERRIOS Rep #: [id number] : 1940 F 75 From: Shreyas Beaver MD PCP: Sarai Bro Status: REG CLI Study: L/S Spine Min 4 Views Date of Exam: 01/28/16 Exam# [id number] Ordering Dr: Shital Bro STUDY: X-RAY - [...] MD at 19:40 EDT , Service support [phone], Fax RAD/L/S Spine Min 4 Views IMPRESSION: No acute abnormality. Mild to moderate degenerative changes. Electronically Signed: Shreyas Beaver MD at 19:40 EDT T el [phone], Service support [phone], CC: Sarai Bro Nutrition Teacher: Signed 19-Mar-2015 Dexa Bone Density Study (HP) Result: Comments: See Note; NOTES: [facility] Imaging Services [address] [place] [address] Bone Density Report MR#: [id number] Acct: [id number] Name: SEAN CRAIN Rep #: [id number] : 1940 F 74 From: Henry Jones MD PCP: Sarai Bro Status: REG CLI Study: Dexa Bone Density Study (HP) Date of Exam: 03/19/15 Exam# [id number] Ordering Dr: Sarai Bro STUD Y: DUAL [...] Henry Jones MD at 14:35 EDT Tel [phone], [employer] support [phone], CC: Sarai Bro Nutrition Teacher: Signed 12-Mar-2015 Jero Edwards Digital AND CAD Result: Comments: See Note; NOTES: [facility] Imaging Services [address] [place] [address] Breast Imaging Report MR#: [id number] Acct: [id number] Name: SEAN CRAIN Rep #: [id number] : 1940 F 74 From: Henry Jones MD PCP: Sarai Bro Status: REG CLI Study: Bilat Scrn Digital AND CAD Date of Exam: 03/12/15 Exam# [id number] Ordering Dr: Sarai Bro MAMM OGRAPHY - [...] Jones MD 23/03/04 at 9:59 EDT Tel [phone], Service support [phone], CC: Sarai Bro Nutrition Teacher: Signed 16-Jan-2015 Operative Report Result: Comments: See Note; NOTES: [facility] Medical Records Department [address] [place] [address] Operative Report MR#: [id number] Acct: [id number] Name: SEAN CRAIN Rep #: [id number] : 1940 74 From: Amilcar Paz MD [...] care. Amilcar Paz MD T: [facility] JOB: [id number] 01/16/15 0901 <Electronically signed by Amilcar Paz MD&amp ;#62; Date Amilcar Paz MD CC: Sarai Bro; Amilcar Paz MD Date Dictated: 01/14/151318 Date Transcribed: 01/14/151318 Nutrition Teacher: Signed 15-Jan-2015 Consultation Result: Comments: See Note; NOTES: [facility] Medical Records Department [address] [place] [address] Consultation MR#: [id number] Acct: [id number] Name: SEAN CRAIN Rep #: [id number] : 1940 74 From: Armando Waite MD [...] MD Nelson HENDERSON C: Amilcar Bro T: [facility] JOB: [id number] 01/15/15 0643 <Electronically signed by Armando Waite MD> Date Armando Waite MD CC: Sarai Bro; Armando Waite MD; Amilcar Paz MD Date Dictated: 01/14/15 1357 Date Transcribed: 01/14/151356 Nutrition Teacher: Signed 07-Jan-2015 Chest PA and Lateral Result: Comments: See Note; NOTES: [facility] Imaging Services [address] [place], [place] [address] Radiology Report MR#: [id number] Acct: [id number] Name: SEAN CRAIN Rep #: [id number] : 1940 F 74 From: Henry Jones MD PCP: Sarai Bro Status: PRE CLI Study: Chest PA and Lateral Date of Exam: 01/07/15 Exam# [id number] Ordering Dr: Amilcar Paz MD STUDY: X-RA [...] Henry Jones MD at 14:28 EDT Tel [phone], Service support [phone], RAD/Chest PA and Lateral IMPRESSION: Hyperinflation. No acute abnormality is seen. Electronically Signed: Henry Jones MD 2014 at 14:28 EDT Tel [phone], Service support [phone], CC: Sarai Bro; Amilcar Paz MD Nutrition Teacher: Signed 24-Dec-2014 Echocardiogram Complete Result: Comments: See Note; NOTES: [facility] Cardiovascular Services [address] [place] [address] Echo Complete 12/24/14 1003 MR#: [id number] Acct: [id number] Name: SEAN CRAIN Rep #: [id number] : 1940 74 From: Amilcar Paz MD Attending Dr: Jennifer Monroe Status: REG CLI Ordering Dr: Jennifer Monroe Date: 12/24/14 Location: [facility] Sex: F C Admitted: Jose Alfredo alegria [...] Dictated: 12/24/14 1003 Date Transcribed: 12/24/14 1359 Nutrition Teacher: Signed 19-Jul-2014 Hip min 2 Views Result: Comments: See Note; NOTES: [facility] Imaging Services [address] [place] [address] Radiology Report MR#: [id number] Acct: [id number] Name: SEAN CRAIN Rep #: [id number] : 1940 F 74 From: Henry Jones MD PCP: Sarai Bro Status: REG CLI Study: Hip min 2 Views Date of Exam: 07/19/14 Exam# [id number] Ordering Dr: Sarai Bro STUDY: X-RAY - [...] Henry Jones MD at 11:38 EST Tel [phone], Service support [phone], RAD/Hip min 2 Views IMPRESSION: Degenerative changes of the hip. Electronically Signed: Henry Jones MD at 11:38 EST Tel [phone], Service support [phone], CC : Sarai Bro Nutrition Teacher: Signed 19-Jul-2014 L/S Spine Min 4 Views Result: Comments: See Note; NOTES: [facility] Imaging Services [address] [place] [address] Radiology Report MR#: [id number] Acct: [id number] Name: SEAN CRAIN Rep #: [id number] : 1940 F 74 From: Henry Jones MD PCP: Sarai Bro Status: REG CLI Study: L/S Spine Min 4 Views Date of Exam: 07/19/14 Exam# [id number] Ordering Dr: Sarai Bro STUDY: X-RAY - [...] Henry Jones MD at 13:19 EST Tel [phone], Service support [phone], CC: Sarai Bro Nutrition Teacher: Signed 05-Jan-2014 Bilat Scrn Digital & CAD Result: Comments: See Note; NOTES: [facility] Imaging Services [address] [place] [address] Breast Imaging Report MR#: [id number] Acct: [id number] Name: SEAN CRAIN Rep #: [id number] : 1940 F 73 From: Henry Jones MD PCP: Status: REG CLI Exam# [id number] Ordering Dr: Sarai Bro MAMMOGRAPHY - BILATERAL [...] Henry Jones MD at 9:58 EDT Tel [phone], Service support [phone], CC: Sarai Bro; Amilcar Paz MD Nutrition Teacher: Signed Immunization Name Dates Details Influenza (3 years and up) on: 13-Jun-2008 Influenza (3 years and up) on: 22-May-2009 Comments: Lot #[id number] deltoidgiven by:CDH Family History Unknown Family Member Name Dates Details Father Comments: [place] at 48 & Status: Active Social History Name Dates Details Caffeine Use Comments: 2 cups coffee qd 1 soda qod Status: Active 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 Status: Inactive Tobacco use: Never smoker. Status: Inactive Vital Signs Date Test Result Details 86-Bnm-855205:20 Temperature 99.4 f Comments: Method: Temporal Pulse [...] kg/m2 Body Surface Area Calculated 1.86 m2 04-Nae-520122:16 Temperature 96.7 f Pulse 62 /min Comments: [...] Value Details :18 Prothrombin Time w/INR Comments: [facility] [address] [place], [address] INR 2.7 (Normal) PROTIME 28.4 s (Abnormal) Range: 11.7-14.9 :14 Prothrombin Time w/INR Comments: [facility] [address] [place], [address] INR 2.2 (Normal) PROTIME 24.6 s (Abnormal) Range: 11.7-14.9 :18 Prothrombin Time w/INR Comments: [facility] [address] [place], [address] INR 2.2 (Normal) PROTIME 24.3 s (Abnormal) Range: 11.7-14.9 :26 Prothrombin Time w/INR Comments: [facility] [address] [place], [address] INR 2.2 (Normal) PROTIME 24.6 s (Abnormal) Range: 11.7-14.9 :13 Prothrombin Time w/INR Comments: [facility] [address] [place], [address] INR 2.3 (Normal) PROTIME 25.7 s (Abnormal) Range: 11.7-14.9 :58 Prothrombin Time w/INR Comments: [facility] [address] [place], [address] INR 2.0 (Normal) PROTIME 22.8 s (Abnormal) Range: 11.7-14.9 :45 CBC W/Diff, Automated Comments: [facility] [address] [place], [address] ; another Absolute Lymph 2.13 [...] Range: 4.4-11.0 :45 Comprehensive Metabolic Profil Comments: [facility] [address] [place], [address] ; Dr Paz GAP 8 (Normal) Range: [...] Comments: Please note revised GLUCOSE reference range oyqhirfwa10/02/2018. 17-Vhp-03962:45 Lipid Profile Comments: [facility] [address] [place], [address] VLDL 17 mg/dL (Normal) Range: 5-40 LDL [...] 200-240 mg/dL Borderline >240 mg/dL High Risk 13-Qik-06407:45 Microalb:Creat Ratio,Random UR Comments: [facility] [address] [place], [address] MALB:CREAT 8.4 {mg/g_CRE} (Normal) MICROALBUMIN,UR 13.5 mg/L (Normal) UR CREAT 160.00 mg/dL (Normal) 48-Pup-36048:45 Prothrombin Time w/INR Comments: [facility] [address] [place], [address] INR 1.9 (Normal) PROTIME 21.5 s (Abnormal) Range: 11.7-14.9 Comments: ADDENDA: cardio :45 Thyroid Stim Hormone (TSH) Comments: [facility] [address] [place], [address] TSH 2.92 {uIU/mL} (Normal) Range: 0.358-3.74 65-Bic-58949:45 Urinalysis, Routine (Dipstick) Comments: How was Urine Obtained? CLEAN [facility] [address] [place], [address] ; other doc LEUK ESTERASE 100 /ul (Abnormal) OCCULT BLOOD-UR 50 /ul (Abnormal) NITRITE UR Negative (Normal) UROBILI Normal mg/dL (Normal) PROT DIPSTX Negative mg/dL (Normal) pH UR 6.0 (Normal) Range: 5.0 - 8.0 SP.GR. DIPSTX 1.020 (Normal) Range: 1.002-1.030 KETONE UR Negative mg/dL (Normal) BILIRUBIN URINE Negative mg/dL (Normal) GLUCOSE, UR Normal mg/dL (Normal) CLARITY Cloudy (Normal) COLOR Yellow (Normal) 48-Ckr-380065:31 Prothrombin Time w/INR Comments: [facility] [address] [place], [address] INR 2.1 (Normal) PROTIME 23.3 s (Abnormal) Range: 11.7-14.9 8-Cfk-642294:20 Prothrombin Time w/INR Comments: [facility] [address] [place], [address] INR 2.2 (Normal) Comments: ADDENDA: managed by cardio PROTIME 24.1 s (Abnormal) Range: 11.7-14.9 42-Xvy-113423:40 Prothrombin Time w/INR Comments: [facility] [address] [place], [address] ; managed by cardio INR 2.0 (Normal) PROTIME 22.9 s (Abnormal) Range: 11.7-14.9 60-Phr-101550:13 Prothrombin Time w/INR Comments: [facility] [address] [place], [place], [address] INR 1.6 (Normal) PROTIME 19.5 s (Abnormal) Range: 11.7-14.9 66-Tjv-319552:28 Prothrombin Time w/INR Comments: [facility] [address] [place], [address] ; cardio INR 1.8 (Normal) PROTIME 19.8 s (Abnormal) Range: 11.7-14.9 5-Qmj-413455:53 Prothrombin Time w/INR Comments: [facility] [address] [place], [address] INR 2.4 (Normal) PROTIME 24.8 s (Abnormal) Range: 11.7-14.9 4-Dpv-826114:26 Prothrombin Time w/INR Comments: [place] [address] [place], [address] INR 1.9 (Normal) PROTIME 21.2 s (Abnormal) Range: 11.7-14.9 01-Och-540478:42 Rapid Flu (57175 x 2) Influenza A Ag POS B (Normal) 44-Hun-530091:04 Prothrombin Time w/INR Comments: [facility] [address] [place], [address] ; cardio manages INR 1.4 (Normal) PROTIME 16.5 s (Abnormal) Range: 11.7-14.9 06-Uca-200416:28 Prothrombin Time w/INR Comments: [facility] F[address] [place], [phone] INR 1.2 (Normal) PROTIME 14.3 s (Normal) Range: 11.7-14.9 6-Nve-823810:11 Prothrombin Time w/INR Comments: [address] [place], [address] INR 2.0 (Normal) PROTIME 21.6 s (Abnormal) Range: 11.7-14.9 73-Vlz-012457:18 CBC W/Diff, Automated Comments: [address] [place], [place], [address] Absolute Lymph 2.38 {X10_3/ul} (Normal) Range: 0.83-4.51 [...] Range: 4.4-11.0 :18 Prothrombin Time w/INR Comments: [facility] Yotfueogty[address] [place], [place], [address] INR 2.1 (Normal) PROTIME 22.8 s (Abnormal) Range: 11.7-14.9 :52 POTASSIUM SERUM (21606) Comments: STAT; Order Date: 07/23/17Order Info: [id number] - KComments: [facility] L[address]akyzjf[address] [place], [address] K 4.4 mmol/L (Normal) Range: 3.5-5.1 85-Jcy-154847:56 Microscopic Examination Comments: PATIENT NOT FASTINGPERFORMED BY: Kids Note70 Lindsey ShellFirstHealth [facility] [id number] Bacteria Few (Normal) Mucus Threads Present (Normal) Epithelial Cells (non renal) 0-10 {/hpf} (Normal) Range: 0 - 10 RBC 3-10 {/hpf} (Abnormal) Range: 0 - 2 WBC 0-5 {/hpf} (Normal) Range: 0 - 5 :56 VITAMIN B-12 (CYANOCOBALAMIN) Comments: PATIENT NOT FASTINGPERFORMED BY: [employer] MurrayRoadhopFirstHealth [facility] [id number] (02496) Vitamin B12 451 pg/mL (Normal) Range: 232-1245 Comments: Please note reference interval change :56 TSH (26407) Comments: PATIENT NOT FASTINGPERFORMED BY: [employer] Emlhrr9832 Lindsey Shellblin [place] [id number] TSH 2.910 {uIU/mL} (Normal) Range: 0.450-4.500 :56 URINALYSIS, W/ MICRO (05201) Comments: PATIENT NOT FASTINGPERFORMED BY: [facility]6370 [facility] [id number] Microscopic Examination See below: (Normal) Comments: Microscopic was indicated and was performed. Nitrite, Urine Negative (Normal) Urobilinogen,Semi-Qn 0.2 mg/dL (Normal) Range: 0.2-1.0 Bilirubin Negative (Normal) Occult Blood 1+ (Abnormal) Ketones Negative (Normal) Glucose Negative (Normal) Protein Negative (Normal) WBC Esterase Trace (Abnormal) Appearance Clear (Normal) Urine-Color Yellow (Normal) pH 7.0 (Normal) Range: 5.0-7.5 Specific [place] 1.017 (Normal) Range: 1.005-1.030 :56 MICROALBUMIN: CREATININE RATIO Comments: PATIENT NOT FASTINGPERFORMED BY: Eliason MediaHills & [facility]ales [facility] Hospital6370 [facility] [id number] ([id number]) AND (59484) Microalb/Creat Ratio 7.4 {mg/g_creat} (Normal) Range: 0.0-30.0 Microalbumin, Urine 5.0 ug/mL (Normal) Creatinine, Urine 68.0 mg/dL (Normal) :56 METABOLIC PANEL, COMPREHENSIVE Comments: PATIENT NOT FASTINGPERFORMED BY: I2 TELECOM INTERNATIONASt. Francis Medical CenterHfptuw9859 [facility] [id number] (28268) ALT (SGPT) 18 [iU]/L (Normal) Range: 0-32 [...] Glucose, Serum 87 mg/dL (Normal) Range: 65-99 19-Anj-597010:56 CBC W/AUTO DIFF WBC (59484) Comments: PATIENT NOT FASTINGPERFORMED BY: [facility] Xxbkbq2851 [facility] [id number] Immature Grans (Abs) 0.0 {x10E3/uL} (Normal) Range: [...] Range: 3.4-10.8 :38 Prothrombin Time w/INR Comments: [facility] [address] [place], [address] INR 2.0 (Normal) PROTIME 22.0 s (Abnormal) Range: 11.7-14.9 :21 Prothrombin Time w/INR Comments: [facility] [address] [place], [address] INR 2.5 (Normal) PROTIME 26.0 s (Abnormal) Range: 11.7-14.9 :12 Lipid Profile Comments: Order Date: 12/04/16Order Info: [id number] - *Hepatic Function PanelOrder Info: 60724-8 - *Lipid Profile CC PCPComments: 12 hours fasting, may have water.[facility] [address]nyv[address] [place], [address] VLDL 21 mg/dL (Normal) Range: 5-40 LDL [...] Info: 0788-1 - *Hepatic Function PanelOrder Info: [id number] - *Lipid Profile CC PCPComments: 12 hours fasting, may have water.[facility] Vdsernhuac[address] [place], [place], [address] D BILI 0.09 mg/dL (Normal) Range: 0.00-0.30 T BILI 0.50 mg/dL (Normal) Range: 0.20-1.00 ALT 21 U/L (Normal) Range: 12-78 ALK P 78 U/L (Normal) Range: 45-117 AST 16 U/L (Normal) Range: 15-37 GLOB 3.1 g/dL (Normal) Range: 2.2-4.2 ALB 3.5 g/dL (Normal) Range: 3.4-5.0 Comments: Please note revised Albumin AND Globulin reference rangeeffective 2017. T PROT 6.6 g/dL (Normal) Range: 6.4-8.2 29-Sfp-878539:39 Prothrombin Time w/INR Comments: [facility] [address] [place], [place], [address] INR 2.4 (Normal) PROTIME 24.9 s (Abnormal) Range: 11.7-14.9 :43 Prothrombin Time w/INR Comments: [facility] [address]vs[address] [place], [place], [address] INR 2.2 (Normal) PROTIME 23.9 s (Abnormal) Range: 11.7-14.9 :22 CBC W/Diff, Automated Comments: [address] [place], [place], [address] ; OV 9/5 Absolute Lymph 2.11 {X10_3/ul} [...] Range: 4.4-11.0 09-Apr-20179:22 Comprehensive Metabolic Profil Comments: [facility] Ujzh[address]uzhqz01[address] [place], [place], [address] GAP 7 (Normal) Range: 5-15 CO2 33.0 [...] 70-110 :22 Thyroid Stim Hormone (TSH) Comments: [facility] Thytmtjttc30[address] [place], [address] TSH 3.52 {uIU/mL} (Normal) Range: 0.358-3.74 92-Bgj-723875:37 Prothrombin Time w/INR Comments: [facility] Tfsnt[address]jnhg5614 [address] [place], [phone] INR 2.1 (Normal) PROTIME 22.4 s (Abnormal) Range: 11.7-14.9 00-Kpn-440240:12 Prothrombin Time w/INR Comments: PT ORDER IS AND T4 IS [facility] Cidliasqrn[address] [place], [phone](082) INR 2.1 (Normal) PROTIME 23.1 s (Abnormal) Range: 11.7-14.9 14-Znn-176508:11 T4 Total, Thyroxin Comments: Order Date: 02/19/17Order Info: [id number] - *T4 (Total)Comments: Reason:Order Info: [id number] - *[facility] Dwasvkyyyl7057 [address] [place], [phone] T4 THYROXIN 7.2 ug/dL (Normal) Range: 4.8-13.9 15-Vex-562817:11 Thyroid Stim Hormone (TSH) Comments: Order Date: 02/19/17Order Info: [id number] - *T4 (Total)Comments: Reason:Order Info: [id number] - *TSHWRegency Hospital Company Vacvawrumb97[address] [place], [phone] TSH 1.56 {uIU/mL} (Normal) Range: 0.358-3.74 :37 Prothrombin Time w/INR Comments: [facility] Avugxyknet[address] [place], [phone] INR 1.9 (Normal) PROTIME 21.4 s (Abnormal) Range: 11.7-14.9 7-Yrc-524738:50 Prothrombin Time w/INR Comments: [facility] Dtdasgxcmy3873 [place], [address] INR 2.0 (Normal) PROTIME 21.6 s (Abnormal) Range: 11.7-14.9 97-Wvz-189923:37 Prothrombin Time w/INR Comments: [facility] [address] [place], [phone](113 INR 2.5 (Normal) PROTIME 25.6 s (Abnormal) Range: 11.7-14.9 40-Ahw-549885:18 Prothrombin Time w/INR Comments: [facility] Ycsfxyfqtz[address] [place], [phone] INR 2.1 (Normal) PROTIME 22.5 s (Abnormal) Range: 11.7-14.9 47-Njv-304768:17 Lipid Profile Comments: Order Date: 06/02/16Order Info: [id number]- [id number] - *Hepatic Function PanelDR.TOVA HOLLIENORTHERN LIGHT ACADIA HOSPITALMARIMAR LIPID LIVEROrder Date: 06/02/16Order Info: [id number] - *Lipid Profile CC PCPComments: 12 hours fasting, may have watred lalaMer[facility] Enuvexkyvh2300 [address] [place], [phone](850 VLDL 31 mg/dL (Normal) Range: 5-40 LDL [...] 200-240 mg/dL Borderline >240 mg/dL High Risk 63-Smb-501585:17 Liver Profile Comments: Order Date: 06/02/16Order Info: 0788- 1 - *Hepatic Function PanelDR.TOVA PTMICHELLE LIPID LIVEROrder Date: 06/02/16Order Info: [id number] - *Lipid Profile CC PCPComments: 12 hours fasting, may have mary lalaMer[facility] Tbqqnpdhms9907 [place], [address] D BILI 0.09 mg/dL (Normal) Range: 0.00-0.30 T BILI 0.50 mg/dL (Normal) Range: 0.20-1.00 ALT 28 U/L (Normal) Range: 12-78 ALK P 93 U/L (Normal) Range: 45-117 AST 21 U/L (Normal) Range: 15-37 GLOB 3.4 g/dL (Normal) Range: 2.3-3.5 ALB 4.0 g/dL (Normal) Range: 3.4-5.0 T PROT 7.4 g/dL (Normal) Range: 6.4-8.2 1-Nii-349398:32 Prothrombin Time w/INR Comments: [facility] [address] [place], [address] ; [facility] manages INR 1.8 (Normal) PROTIME 20.2 s (Abnormal) Range: 11.7-14.9 61-Tpe-599084:09 Prothrombin Time w/INR Comments: [facility] Csmcqybbys1173 [place], [address] ; another doc INR 2.1 (Normal) PROTIME 23.1 s (Abnormal) Range: 11.7-14.9 19-Lpy-837657:10 Metabolic Panel, Comprehensive Comments: today; PATIENT NOT FASTINGPERFORMED BY: ZAINAB LabCoSt. Francis Medical CenterOlbkxb0422 [facility] [id number] ([id number]) ALT (SGPT) 16 [iU]/L (Normal) Range: 0-32 [...] Glucose, Serum 89 mg/dL (Normal) Range: 65-99 75-Ans-420688:26 Prothrombin Time w/INR Comments: [facility] Zyqkjkzvpo5293 [place], [address] INR 2.2 (Normal) PROTIME 23.7 s (Abnormal) Range: 11.7-14.9 89-Aph-842261:52 CBC-Complete Blood Cnt No Diff Comments: [facility] Ucapjbhoyc4354 [place], [address] ; sibilia MPV 10.8 fL [...] 4.2-5.4 WBC 7.4 K/mm3 (Normal) Range: 4.4-11.0 08-Brj-534070:58 Prothrombin Time w/INR Comments: [facility] Nljrfulhbf9505 [place], [address] INR 2.0 (Normal) PROTIME 22.4 s (Abnormal) Range: 11.7-14.9 52-Awd-162129:49 Prothrombin Time w/INR Comments: [facility] Wjtgzpqkka2428 [place], [address] INR 2.0 (Normal) PROTIME 22.3 s (Abnormal) Range: 11.7-14.9 63-Jya-255352:54 CBC WITH MANUAL DIFF (02619) Comments: PATIENT NOT FASTINGPERFORMED BY: LabCoSt. Francis Medical CenterLqyhhp1900 [facility] [id number] Immature Grans (Abs) 0.0 {x10E3/uL} (Normal) Range: [...] 3.77-5.28 WBC 6.2 {x10E3/uL} (Normal) Range: 3.4-10.8 50-Hbu-842512:54 Metabolic Panel, Comprehensive Comments: PATIENT NOT FASTINGPERFORMED BY: LabCoSt. Francis Medical CenterTlswuv1623 [facility] [id number] ([id number]) ALT (SGPT) 18 [iU]/L (Normal) Range: 0-32 [...] Glucose, Serum 86 mg/dL (Normal) Range: 65-99 89-Llq-746702:54 TSH (24663) Comments: PATIENT NOT FASTINGPERFORMED BY: LabCoSt. Francis Medical CenterMlwtrk6327 [facility] [id number] TSH 2.890 {uIU/mL} (Normal) Range: 0.450-4.500 19-Lep-402433:23 Prothrombin Time w/INR Comments: [facility] T[address]ue[address] [place], [address] ; managed by cardio INR 2.6 (Normal) PROTIME 27.4 s (Abnormal) Range: 11.7-14.9 42-Iaf-25892:54 Prothrombin Time w/INR Comments: [facility] Z[address]cvwsnu[address] [place], [address] ; another doc INR 2.0 (Normal) PROTIME 22.3 s (Abnormal) Range: 11.7-14.9 :53 Lipid Profile Comments: Order Date: 05/22/16 Order #: [id number] Hospital Plucbocphv7929 [address] [place], [place], [address] VLDL 21 mg/dL (Normal) Range: 5-40 LDL [...] Profile Comments: Order Date: 05/22/16 Order #: [id number] Hospital Mtocmwuyoh7007 [address] [place], [place], [address] D BILI < 0.05 mg/dL (Normal) Range: [...] Range: 6.4-8.2 :09 Prothrombin Time w/INR Comments: [facility] Ytwzcwoexh2003 [place], [address] INR 2.5 (Normal) PROTIME 26.3 s (Abnormal) Range: 11.7-14.9 :59 Prothrombin Time w/INR Comments: [facility] O[address] [place], [address] ; managed by cardio INR 2.9 (Normal) PROTIME 29.3 s (Abnormal) Range: 11.7-14.9 :05 Prothrombin Time w/INR Comments: [facility] Gx[address]rfe[address] [place], [address] INR 2.0 (Normal) PROTIME 22.3 s (Abnormal) Range: 11.7-14.9 :11 Prothrombin Time w/INR Comments: [facility] Lvjkbsoxdt[address] [place], [address] INR 2.7 (Normal) Comments: ADDENDA: managed by cardio PROTIME 27.7 s (Abnormal) Range: 11.7-14.9 :14 Prothrombin Time w/INR Comments: [facility] Otib[address] [place], [address] ; managed by Tova INR 2.7 (Normal) PROTIME 28.1 s (Abnormal) Range: 11.7-14.9 :45 Prothrombin Time w/INR Comments: [facility] Faredcoelv[address] [place], [address] ; managed by cardio INR 3.1 (Normal) PROTIME 31.3 s (Abnormal) Range: 11.7-14.9 :27 Prothrombin Time w/INR Comments: [facility] Uwhwjdej[address] [place], [address] ; managed by cardio INR 3.1 (Normal) PROTIME 31.1 s (Abnormal) Range: 11.7-14.9 :22 Prothrombin Time w/INR Comments: [facility] Mbllnerebi[address] [place], [address] INR 2.6 (Normal) PROTIME 27.4 s (Abnormal) Range: 11.7-14.9 16-Jan-20169:08 Prothrombin Time w/INR Comments: [facility] Qhdpjreibf9596 [place], [address] ; managed with Dr. paz INR 4.1 (Abnormal) Comments: CRITICAL VALUE REPEATED AND VERIFIED. CALLED TO [facility]01/16/16 1251 Elza Hinojosa.RESULTS READ BACK BY SAME . PROTIME 38.2 s (Abnormal) Range: 11.7-14.9 17-Zrq-906482:11 Microscopic Examination Comments: PATIENT WAS FASTINGPERFORMED BY: [facility] FASHIONFirstHealth [facility] [id number] Bacteria None seen (Normal) Mucus Threads Present (Normal) Epithelial Cells (non renal) 0-10 {/hpf} (Normal) Range: 0 - 10 RBC 11-30 {/hpf} (Abnormal) Range: 0 - 2 WBC 0-5 {/hpf} (Normal) Range: 0 - 5 18-Opm-376469:11 MICROALBUMIN: CREATININE RATIO Comments: PATIENT WAS FASTINGPERFORMED BY: Kids Note70 Lindsey ShellFirstHealth Moore Regional Hospital [facility] [id number] ([id number]) AND (83253) Microalb/Creat Ratio 11.4 {mg/g_creat} (Normal) Range: 0.0-30.0 Microalbumin, Urine 12.1 ug/mL (Normal) Comments: Please note reference interval change Creatinine, Urine 106.3 mg/dL (Normal) Comments: Please note reference interval change :11 URINALYSIS (35502) Comments: PATIENT WAS FASTINGPERFORMED BY: Kids Note70 [facility] [id number] Microscopic Examination See below: (Normal) Comments: Microscopic was indicated and was performed. Nitrite, Urine Negative (Normal) Urobilinogen,Semi-Qn 0.2 mg/dL (Normal) Range: 0.2-1.0 Bilirubin Negative (Normal) Occult Blood 2+ (Abnormal) Ketones Negative (Normal) Glucose Negative (Normal) Protein Negative (Normal) WBC Esterase Negative (Normal) Appearance Clear (Normal) Urine-Color Yellow (Normal) pH 7.0 (Normal) Range: 5.0-7.5 Specific [place] 1.018 (Normal) Range: 1.005-1.030 73-Mhd-221259:11 Metabolic Panel, Comments: PATIENT WAS FASTINGPERFORMED BY: Kids Note70 [facility] [id number] Information: [id number] [facility] (33327) ALT (SGPT) 14 [iU]/L (Normal) Range: 0-32 [...] Glucose, Serum 91 mg/dL (Normal) Range: 65-99 46-Fcn-123644:11 TSH (43713) Comments: PATIENT WAS FASTINGPERFORMED BY: Kids Note70 [facility] [id number] TSH 2.260 {uIU/mL} (Normal) Range: 0.450-4.500 :17 Prothrombin Time w/INR Comments: [facility] Tflcvzctiv2787 [place], [address] INR 2.8 (Normal) PROTIME 28.4 s (Abnormal) Range: 11.7-14.9 :40 Lipid Profile Comments: [facility] Cjchmlmvix3903 [place], [address] VLDL 22 mg/dL (Normal) Range: 5-40 [...] mg/dL High Risk :40 Liver Profile Comments: [facility] Owyfpddjeb4268 [place], [address] D BILI 0.10 mg/dL (Normal) Range: 0.00-0.30 T BILI 0.60 mg/dL (Normal) Range: 0.20-1.00 ALT 26 U/L (Normal) Range: 12-78 ALK P 86 U/L (Normal) Range: 50-136 AST 20 U/L (Normal) Range: 15-37 GLOB 3.4 g/dL (Normal) Range: 2.3-3.5 ALB 3.9 g/dL (Normal) Range: 3.4-5.0 T PROT 7.3 g/dL (Normal) Range: 6.4-8.2 :26 Prothrombin Time w/INR Comments: [facility] Xnskodroll5785 [place], [address] INR 2.6 (Normal) Comments: ADDENDA: handled by cardio PROTIME 27.3 s (Abnormal) Range: 11.7-14.9 :40 Prothrombin Time w/INR Comments: [facility] K[address]xkgjcvi[address] [place], [address] INR 2.4 (Normal) PROTIME 26.4 s (Abnormal) Range: 11.7-14.9 :03 Prothrombin Time w/INR Comments: [facility] [address] [place], [address] ; per pop up in EMR cardio manages INR INR 2.2 (Normal) PROTIME 24.5 s (Abnormal) Range: 11.7-14.9 :51 Prothrombin Time w/INR Comments: [facility] W[address]vhcansk[address] [place], [address] INR 1.6 (Normal) PROTIME 19.0 s (Abnormal) Range: 11.7-14.9 Comments: ADDENDA: managed by cardio :33 Prothrombin Time w/INR Comments: [facility] Rocnb[address]tojj[address] [place], [address] ; handled by cardio INR 2.1 (Normal) PROTIME 24.0 s (Abnormal) Range: 11.7-14.9 :02 Prothrombin Time w/INR Comments: [facility] T[address]meeoz[address] [place], [address] INR 2.2 (Normal) PROTIME 24.1 s (Abnormal) Range: 11.7-14.9 :37 Prothrombin Time w/INR Comments: [facility] Y[address]omsah[address] [place], [address] INR 2.5 (Normal) PROTIME 26.7 s (Abnormal) Range: 11.7-14.9 :44 Prothrombin Time w/INR Comments: [facility] Eicwhvucgh[address] [place], [address] INR 2.2 (Normal) PROTIME 24.6 s (Abnormal) Range: 11.7-14.9 :15 Prothrombin Time w/INR Comments: [facility] Lioqvhsdyk5990 [address] [place], [address] INR 1.6 (Normal) PROTIME 19.4 s (Abnormal) Range: 11.7-14.9 :36 Prothrombin Time w/INR Comments: [facility] Jtnwfjufzd8921 [address] [place], [address] INR 1.2 (Normal) PROTIME 15.3 s (Abnormal) Range: 11.7-14.9 :02 Prothrombin Time w/INR Comments: [facility] Zuupvdfwah5124 [place], [address] INR 2.7 (Normal) PROTIME 29.0 s (Abnormal) Range: 11.7-14.9 :47 Lipid Profile Comments: [facility] Aaibuemdwh1279 [place], [address] VLDL 20 mg/dL (Normal) Range: 5-40 LDL [...] mg/dL High Risk :47 Liver Profile Comments: [facility] Lywasawzkl5585 [place], [address] D BILI 0.09 mg/dL (Normal) Range: 0.00-0.30 T BILI 0.40 mg/dL (Normal) Range: 0.20-1.00 ALT 26 U/L (Normal) Range: 12-78 ALK P 86 U/L (Normal) Range: 50-136 AST 24 U/L (Normal) Range: 15-37 GLOB 3.3 g/dL (Normal) Range: 2.3-3.5 ALB 4.0 g/dL (Normal) Range: 3.4-5.0 T PROT 7.3 g/dL (Normal) Range: 6.4-8.2 :11 CBC, Platelets & Auto Diff Comments: PATIENT NOT FASTINGPERFORMED BY: LabCoSt. Francis Medical CenterVkpxgv2040 [facility] [id number] Information: [id number] ([id number]) Immature Grans (Abs) 0.0 {x10E3/uL} (Normal) Range: [...] 3.77-5.28 WBC 6.2 {x10E3/uL} (Normal) Range: 3.4-10.8 3-Soq-387836:11 CALCIFEDIOL (77509) Comments: PATIENT NOT FASTINGPERFORMED BY: I2 TELECOM INTERNATIONASt. Francis Medical CenterAhraty5531 [facility] [id number] Vitamin D, 25-Hydroxy 38.9 ng/mL (Normal) Range: 30.0-100.0 Comments: Vitamin D deficiency has been defined by the [place] ofMedicine and an Endocrine Society practice guideline as alevel of serum 25-OH vitamin D less than 20 ng/mL (1,2).The Endocrine Society went on to further define vitamin Dinsufficiency as a level between 21 and 29 ng/mL (2).1. IOM ([place] of Medicine). 2010. Dietary reference intakes for calcium and D. [place]: The National Academies Press.2. Roberto MF, Brody OCHOA, Maribell CADENA, et al. Evaluation, treatment, and prevention of vitamin D deficiency: an Endocrine Society clinical practice guideline. JCEM. 2010; 96(7):1911-30. 4-Rwd-228395:11 VITAMIN B12 AND FOLATES Comments: PATIENT NOT FASTINGPERFORMED BY: LabCo Rdqshq4844 [facility] [id number] (21627) Folate (Folic Acid), Serum 10.4 ng/mL (Normal) Comments: A serum folate concentration of less than 3.1 ng/mL isconsidered to represent clinical deficiency. Vitamin B12 1651 pg/mL (Abnormal) Range: 211-946 7-Jcn-000075:11 Metabolic Panel, Comprehensive Comments: PATIENT NOT FASTINGPERFORMED BY: I2 TELECOM INTERNATIONA Uceact9095 [facility] [id number] ([id number]) ALT (SGPT) 15 [iU]/L (Normal) Range: 0-32 [...] Range: 65-99 09-May-20159:53 Prothrombin Time w/INR Comments: [facility] [address] [place] [address], [address] INR 1.9 (Normal) PROTIME 22.0 s (Abnormal) Range: 11.7-14.9 66-Btp-216052:40 Prothrombin Time w/INR Comments: Test performed at:[facility] [address] [place] [address] INR 1.3 (Normal) PROTIME 16.3 s (Abnormal) Range: 11.7-14.9 80-Gow-214315:03 Prothrombin Time w/INR Comments: Test performed at:[facility] [address] [place] [address] INR 1.7 (Normal) PROTIME 20.4 s (Abnormal) Range: 11.7-14.9 6-Xlm-616566:26 Prothrombin Time w/INR Comments: Test performed at:[facility] [address] [place] [address] INR 1.2 (Normal) Comments: ADDENDA: managed by dr paz PROTIME 15.8 s (Abnormal) Range: 11.7-14.9 45-Weg-975700:28 Prothrombin Time w/INR Comments: Test performed at:[facility] Qeusrrhmls30[address] [place] [address] INR 1.2 (Normal) PROTIME 15.8 s (Abnormal) Range: 11.7-14.9 :54 Prothrombin Time w/INR Comments: Test performed at:[facility] Uwlxjaheul8227 [place] [address] INR 2.5 (Normal) PROTIME 27.3 s (Abnormal) Range: 11.7-14.9 3-Umf-238899:16 Prothrombin Time w/INR Comments: Test performed at:[facility] [address]fqjr[address] [place] [address] INR 2.0 (Normal) PROTIME 23.2 s (Abnormal) Range: 11.7-14.9 57-Hln-237007:29 Prothrombin Time w/INR Comments: Test performed at:[facility] [address] [place] [address] INR 2.8 (Normal) PROTIME 29.3 s (Abnormal) Range: 11.7-14.9 [id number]:06 Prothrombin Time w/INR Comments: Test performed at:[facility] [address] [place] [address] ; Dr Bella manages INR 2.1 (Normal) PROTIME 24.0 s (Abnormal) Range: 11.7-14.9 :45 Prothrombin Time w/INR Comments: Test performed at:[facility] [address] [place] [address] ; ordered by another INR 1.3 (Normal) PROTIME 16.5 s (Abnormal) Range: 11.7-14.9 :00 Prothrombin Time w/INR Comments: Test performed at:[facility] [address] [place] [address] INR 0.9 (Normal) PROTIME 12.7 s (Normal) Range: 11.7-14.9 [id number] Vitamin B12 and Folate Comments: PATIENT NOT FASTINGPERFORMED BY: [facility] [facility] [id number] Information: [id number] Folate (Folic Acid), 7.8 ng/mL (Normal) Comments: A serum folate concentration of less than 3.1 ng/mL isconsidered to represent clinical deficiency. Serum Vitamin B12 1883 pg/mL Range: 211-946 (Abnormal) : Vitamin D, 42.8 ng/mL (Normal) Comments: PATIENT NOT FASTINGPERFORMED BY: [facility] [id number] 05 25-Hydroxy Range: 30.0-100.0 Comments: Vitamin D deficiency has been defined by the [place] of[employer] and an Endocrine Society practice guideline as alevel of serum 25-OH vitamin D less than 20 ng/mL (1,2).The Endocrine Society went on to further define vitamin Dinsufficiency as a level between 21 and 29 ng/mL (2).1. IOM ([place] [employer]). 2010. Dietary reference intakes for calcium and D. [place]: The National Academies Press.2. Roberto MF, Brody [place], Maribell CADENA, et al. Evaluation, treatment, and prevention of vitamin D deficiency: an Endocrine Society clinical practice guideline. JCEM. 2010; 96(7):1911-30. :04 CBC W/Diff, Automated Comments: Test performed at:[facility] [address]md[address] [place] [address] Absolute Lymph 2.41 {X10_3/ul} (Normal) [...] 4.2-5.4 WBC 6.5 K/mm3 (Normal) Range: 4.4-11.0 1-Wqd-290122:26 Basic Metabolic Profile (BMP) Comments: Test performed at:[facility] Yfljgzblca92[address] [place] [address] GAP 4 (Abnormal) Range: 5-15 CO2 33.0 mmol/L (Abnormal) Range: 21.0-32.0 CL 103 mmol/L (Normal) Range: 98-107 K 4.8 mmol/L (Normal) Range: 3.5-5.1 NA 140 mmol/L (Normal) Range: 136-145 CA 8.8 mg/dL (Normal) Range: 8.5-10.1 BUN/CRE 25.8 {RATIO} (Abnormal) Range: 10-20 CREAT,SERUM 1.2 mg/dL (Abnormal) Range: 0.6-1.0 BUN 31 mg/dL (Abnormal) Range: 7-18 GLU 108 mg/dL (Normal) Range: 70-110 55-Zbk-173369:45 Basic Metabolic Profile (BMP) Comments: Test performed at:[facility] Fqnxeqgdgv5[address] [place], [place] [id number](579) GAP 4 (Abnormal) Range: 5-15 CO2 28.0 mmol/L (Normal) Range: 21.0-32.0 CL 106 mmol/L (Normal) Range: 98-107 K 4.3 mmol/L (Normal) Range: 3.5-5.1 NA 138 mmol/L (Normal) Range: 136-145 CA 8.8 mg/dL (Normal) Range: 8.5-10.1 BUN/CRE 26.0 {RATIO} (Abnormal) Range: 10-20 CREAT,SERUM 1.0 mg/dL (Normal) Range: 0.6-1.0 BUN 26 mg/dL (Abnormal) Range: 7-18 GLU 93 mg/dL (Normal) Range: 70-110 77-Fes-300170:45 CBC W/Diff, Automated Comments: Test performed at:[facility] [address]uplx[address] [place] [address] Absolute Lymph 2.60 {X10_3/ul} (Normal) Range: 0.83-4.51 [...] slightly hemolyzed. Results may be affected.Test performed at:[facility] Wrzxtjjcbr42[address] [facility] [address] [place], [place] [address] VLDL 19 mg/dL (Normal) Range: 5-40 LDL [...] slightly hemolyzed. Results may be affected.Test performed at:[facility] [address] [place], [place] [address] D BILI < 0.05 mg/dL (Normal) Range: [...] CHOL 226 mg/dL (Abnormal) Comments: <200 mg/dL Djzcesdtn327-302 mg/dL Borderline>240 mg/dL High Risk :47 LIVER [...] :47 TSH 3.05 {uIU/mL} (Normal) Range: 0.358-3.74 88-Moe-970469:00 LORNA CULTURE-OTHER (52349) Comments: PATIENT NOT FASTINGPERFORMED BY: [facility]CoSt. Francis Medical CenterVubjua1372 [facility] [id number] Information: SRC:THRT [id number] Result 1 RRF (Normal) Comments: Routine respiratory jesus Upper Respiratory Culture Final report (Normal) 06-Bdf-11037:21 Rapid Strep Test, Office (19542) Rapid Strep Test, Office Negative (Normal) 83-Zne-40796:00 BILAT SCRN DIGITAL & CAD Radiology Report [...] Jones M.D.January 04, 2013 at 10:41:52 AM [id number] Signed GP/GP If you are the referring physician and would like to consult with theradiologist who provided this interpretation, please contact Ne Huang at [phone]. If this radiologist is unavailable, youwill be directed to another radiologist to assist. If you are a patient with a question regarding this report, pleasecontactyour referring physician directly. Professional Interpretation Provided By: [employer], Phone , These documents contain legally protected [...] destructionofthese documents. Dictated on 01/04/13 1041 by Cher Jones MDribed on 01/04/13 1042 by ITS IMPORTSign by Henry Jones MD on 01/04/13 1044 Sign by: Henry Jones MD 6-Yeb-538004:19 Hepatic Function Panel Comments: PATIENT WAS FASTINGPERFORMED BY: [facility]6370 [facility] [id number] Information: [id number] (7) ALT (SGPT) 23 [iU]/L (Normal) Range: 0-32 AST (SGOT) 21 [iU]/L (Normal) Range: 0-40 Alkaline Phosphatase, S 74 [iU]/L (Normal) Range: 25-165 Bilirubin, Direct 0.10 mg/dL Range: 0.00-0.40 (Normal) Albumin, Serum 4.3 g/dL (Normal) Range: 3.5-4.8 Bilirubin, Total 0.3 mg/dL (Normal) Range: 0.0-1.2 Protein, Total, Serum 6.7 g/dL (Normal) Range: 6.0-8.5 Written Authorization WAR (Normal) Comments: PATIENT WAS FASTINGPERFORMED BY: [place] [id number] [facility] [id number] :19 Comments: Written Authorization Received.Authorization received from DR BRO [id number] by Rachelle Porter :19 Metabolic Panel, Comprehensive Comments: PATIENT WAS FASTINGPERFORMED BY: [place] [id number] [facility] [id number] (39151) ALT (SGPT) 22 [iU]/L (Normal) Range: 0-32 [...] Glucose, Serum 89 mg/dL (Normal) Range: 65-99 2-Ify-994241:19 CBC with manual diff Comments: PATIENT WAS FASTINGPERFORMED BY: [facility]6370 [facility] [id number] Information: [id number] (97665) Immature Grans (Abs) 0.0 {x10E3/uL} (Normal) Range: [...] 3.77-5.28 WBC 4.6 {x10E3/uL} (Normal) Range: 4.0-10.5 4-Cfw-627990:19 Lipid Panel (94868) Comments: PATIENT WAS FASTINGPERFORMED BY: [employer] [facility] [id number] LDL/HDL Ratio 1.3 {ratio_units} (Normal) Range: 0.0-3.2 Cholesterol, Total 153 mg/dL (Normal) Range: 100-199 HDL Cholesterol 60 mg/dL (Normal) Comments: According to ATP-III Guidelines, HDL-C >59 mg/dL is considered anegative risk factor for CHD. LDL Cholesterol Calc 80 mg/dL (Normal) Range: 0-99 Triglycerides 65 mg/dL (Normal) Range: 0-149 VLDL Cholesterol Hector 13 mg/dL (Normal) Range: 5-40 4-Ngp-112331:19 TSH (08155) Comments: PATIENT WAS FASTINGPERFORMED BY: [employer]70 [facility] [id number] TSH 2.650 {uIU/mL} (Normal) Range: 0.450-4.500 11-Ecx-068226:14 Urinalysis, Office (96317) UA - BILIRUBIN Negative (Normal) UA - BLOOD Hemolyzed Small (Normal) UA - GLUCOSE Negative (Normal) UA - KETONES Negative mg/dL (Normal) UA - LEUKOCYTE ESTERASE Negative (Normal) UA - NITRITE Negative (Normal) UA - PH 7.0 (Normal) UA - PROTEIN Negative mg/dL (Normal) UA - SPECIFIC GRAVITY 1.015 (Normal) URINE UROBILINGN REYNA TIMED Normal mg/dL (Normal) 34-Kdh-576523:10 TSH (THYROID STIMULATING Comments: PATIENT WAS FASTINGPERFORMED BY: [employer] Bhkkqd1181 [facility] [id number] HORMONE) (61175) TSH 2.500 {uIU/mL} (Normal) Range: 0.450-4.500 :10 CALCIFEDIOL (68613) Comments: PATIENT WAS FASTINGPERFORMED BY: [employer] Rhwvpt7549 [facility] [id number] Vitamin D, 25-Hydroxy 48.1 ng/mL (Normal) Range: 30.0-100.0 Comments: Vitamin D deficiency has been defined by the [place] ofMedicine and an Endocrine Society practice guideline as alevel of serum 25-OH vitamin D less than 20 ng/mL (1,2).The Endocrine Society went on to further define vitamin Dinsufficiency as a level between 21 and 29 ng/mL (2).1. IOM ([place] of Medicine). 2010. Dietary reference intakes for calcium and D. [place]: The National Academies Press.2. Roberto MF, Brody OCHOA, Maribell CADENA, et al. Evaluation, treatment, and prevention of vitamin D deficiency: an Endocrine Society clinical practice guideline. JCEM. 2010; 96(7):1911-30. 89-Vyp-207036:10 Lipid Panel (64559) Comments: PATIENT WAS FASTINGPERFORMED BY: [employer]6370 [facility] [id number] LDL/HDL Ratio 2.3 {ratio_units} (Normal) Range: 0.0-3.2 LDL Cholesterol Calc 117 mg/dL (Abnormal) Range: 0-99 VLDL Cholesterol Hector 16 mg/dL (Normal) Range: 5-40 HDL Cholesterol 52 mg/dL (Normal) Comments: According to ATP-III Guidelines, HDL-C >59 mg/dL is considered anegative risk factor for CHD. Triglycerides 78 mg/dL (Normal) Range: 0-149 Cholesterol, Total 185 mg/dL (Normal) Range: 100-199 24-Wxl-796147:10 HEPATIC FUNCTION PANEL Comments: PATIENT WAS FASTINGPERFORMED BY: [employer] TELE[employer] INTERNATIONASt. Francis Medical CenterMtmmkg9844 [facility] [id number] Information: [id number] (58637) ALT (SGPT) 21 [iU]/L (Normal) Range: 0-40 AST (SGOT) 20 [iU]/L (Normal) Range: 0-40 Alkaline Phosphatase, S 75 [iU]/L (Normal) Range: 25-165 Bilirubin, Direct 0.09 mg/dL (Normal) Range: 0.00-0.40 Albumin, Serum 4.0 g/dL (Normal) Range: 3.5-4.8 Bilirubin, Total 0.3 mg/dL (Normal) Range: 0.0-1.2 Protein, Total, Serum 6.5 g/dL (Normal) Range: 6.0-8.5 :41 TSH (29483) Comments: PATIENT NOT FASTINGPERFORMED BY: [address] [id number] Information: [id number] TSH 3.750 {uIU/mL} (Normal) Range: 0.450-4.500 :39 Prothrombin Time (PT) Comments: PERFORMED BY: [address] [id number] Prothrombin Time 39.0 {sec} (Abnormal) Range: 8.7-11.5 INR 3.6 (Abnormal) Range: 0.8-1.2 Comments: Client Requested Flag Reference interval is for non- anticoagulated patients. . Suggested INR therapeutic ra nge for Vitamin K antagonist therapy: Standard Dose (moderate intensity therapeutic range): 2.0 - 3.0 Higher intensity therapeutic range 2.5 - 3.5 :26 PT (PROTHROMBIN TIME) Comments: PATIENT NOT FASTINGPERFORMED BY: [facility]6370 [facility] [id number] Information: [id number] CC:[id number] (32920) Prothrombin Time 54.3 {sec} (Abnormal) Range: 8.7-11.5 [...] (Activated Partial Comments: PATIENT NOT FASTINGPERFORMED BY: [facility]6370 [facility] [id number] Thromboplastin Time) (41353) aPTT 39 {sec} (Abnormal) Range: 24-33 Comments: This test has not been validated for monitoring unfractionated heparintherapy. aPTT-based therapeutic ranges for unfractionated heparintherapy have not been established. For general guidelines onHeparin monitoring, refer to the [facility] Directory of Services. :51 PT (Prothrobim Time) Comments: PATIENT NOT FASTINGPERFORMED BY: [place] [id number] [facility] [id number] Information: [id number] CC:[id number] (34440) Prothrombin Time 26.1 {sec} (Abnormal) Range: 8.7-11.5 INR 2.4 (Abnormal) Range: 0.8-1.2 Comments: Reference interval is for non-anticoagulated patients. . Suggested INR therapeutic range for Vitamin K anta gonist therapy: Standard Dose (moderate intensity therapeutic range): 2.0 - 3.0 Higher intensity therapeutic range 2.5 - 3.5 :43 HEPATIC FUNCTION PANEL Comments: PATIENT NOT FASTINGPERFORMED BY: [facility]6370 [facility] [id number] Information: [id number] (73135) ALT (SGPT) 25 [iU]/L (Normal) Range: 0-40 AST (SGOT) 19 [iU]/L (Normal) Range: 0-40 Alkaline Phosphatase, S 73 [iU]/L (Normal) Range: 25-165 Albumin, Serum 4.4 g/dL (Normal) Range: 3.5-4.8 Bilirubin, Direct 0.09 mg/dL (Normal) Range: 0.00-0.40 Bilirubin, Total 0.3 mg/dL (Normal) Range: 0.0-1.2 Protein, Total, Serum 6.4 g/dL (Normal) Range: 6.0-8.5 :18 Lipid Panel (25980) Comments: PATIENT NOT FASTINGPERFORMED BY: [employer] Dzpcwv6074 [facility] [id number] LDL/HDL Ratio 1.3 {ratio_units} (Normal) Range: 0.0-3.2 [...] FUNCTION PANEL Comments: PATIENT NOT FASTINGPERFORMED BY: [employer]6370 Market WireFormerly [facility] [id number] Information: [id number] (54236) ALT (SGPT) 60 [iU]/L (Abnormal) Range: 0-40 Alkaline Phosphatase, S 66 [iU]/L (Normal) Range: 25-165 AST (SGOT) 43 [iU]/L (Abnormal) Range: 0-40 Albumin, Serum 4.3 g/dL (Normal) Range: 3.5-4.8 Bilirubin, Direct 0.10 mg/dL (Normal) Range: 0.00-0.40 Bilirubin, Total 0.3 mg/dL (Normal) Range: 0.0-1.2 Protein, Total, Serum 6.7 g/dL (Normal) Range: 6.0-8.5 :18 CALCIFEDIOL (86800) Comments: PATIENT NOT FASTINGPERFORMED BY: [employer] Rlcxdy0952 [facility] [id number] Vitamin D, 25-Hydroxy 57.3 ng/mL (Normal) Range: 32.0-100.0 Comments: Recent studies consider the lower limit of 32.0 ng/mL to be athreshold for optimal health.Baljit HOWELL. J Nutr. 2004;135(2):317-22. 9-Fns-533562:49 Urinalysis, Office (54266) UA - BILIRUBIN Negative (Normal) UA - BLOOD Hemolyzed Moderate (Normal) UA - GLUCOSE Negative (Normal) UA - KETONES Negative mg/dL (Normal) UA - LEUKOCYTE ESTERASE Negative (Normal) UA - NITRITE Negative (Normal) UA - PH 7.5 (Normal) UA - PROTEIN Negative mg/dL (Normal) UA - SPECIFIC GRAVITY 1.015 (Normal) URINE UROBILINGN REYNA TIMED Normal mg/dL (Normal) 70-Jxs-150898:38 Urinalysis, Office (90170) UA - BILIRUBIN Negative (Normal) UA - [...] Panel, Basic Comments: PATIENT NOT FASTINGPERFORMED BY: LabCoSt. Francis Medical CenterLkkdcn7180 [facility] [id number] Information: [id number] (30341) Calcium, Serum 9.6 mg/dL (Normal) Range: 8.6-10.2 [...] CULTURE-REYNA COL Comments: PATIENT NOT FASTINGPERFORMED BY: [employer] Hjuvfn5470 [facility] [id number] Information: SRC:UR [id number] COUNT (08375) Result 1 NG36 (Normal) Comments: No growth in 36 - 48 hours. Urine Culture,Comprehensive Final report (Normal) :29 Urinalysis, Office (82737) UA - BILIRUBIN Negative (Normal) UA - BLOOD Non Hemolyzed Moderate (Normal) UA - GLUCOSE Negative (Normal) UA - KETONES Negative mg/dL (Normal) UA - LEUKOCYTE ESTERASE Trace (Normal) UA - NITRITE Negative (Normal) UA - PH 6.0 (Normal) UA - PROTEIN Negative mg/dL (Normal) UA - SPECIFIC GRAVITY 1.020 (Normal) URINE UROBILINGN REYNA TIMED Normal mg/dL (Normal) 39-Zsa-289599:44 Microscopic Examination Comments: PATIENT WAS FASTINGPERFORMED BY: [employer] Hebwnk0754 [facility] [id number] Bacteria Few (Normal) Mucus Threads Present (Normal) Epithelial Cells (non renal) 0-10 {/hpf} (Normal) Range: 0 - 10 RBC 0-3 {/hpf} (Normal) Range: 0 - 3 WBC 0-5 {/hpf} (Normal) Range: 0 - 5 94-Kgp-644637:44 CALCIFIDIOL (27095) VIT D 25 Comments: PATIENT WAS FASTINGPERFORMED BY: [employer] INTERNATIONASt. Francis Medical CenterYlrsiw3308 [facility] [id number] Vitamin D, 25-Hydroxy 28.6 ng/mL (Abnormal) Range: 32.0-100.0 Comments: Recent studies consider the lower limit of 32.0 ng/mL to be athreshold for optimal health.Baljit HOWELL. J Nutr. 2004;135(2):317-22. 87-Pul-954937:44 Folate (77480) Comments: PATIENT WAS FASTINGPERFORMED BY: [employer] MediaPutnam [facility] Hospital Msjldu9285 [facility] [id number] Folate (Folic Acid), Serum 12.2 ng/mL (Normal) Comments: Indeterminate: 2.2 - 3.0 Deficient: <2.2 64-Gvt-061516:44 VITAMIN B-12 (CYANOCOBALAMIN) Comments: PATIENT WAS FASTINGPERFORMED BY: Eliason MediaHills & Dales [facility] Hospital6370 [facility] [id number] (61820) Vitamin B12 351 pg/mL (Normal) Range: 211-946 80-Aqk-861399:44 SED RATE ERYTHROCYTE (71370) Comments: PATIENT WAS FASTINGPERFORMED BY: LabHills & Dales General Hospital6370 [facility] [id number] Sedimentation Rate-Westergren 2 mm/h (Normal) Range: 0-30 53-Suu-247736:44 RHEUMATOID FACTOR-QUANT (77229) Comments: PATIENT WAS FASTINGPERFORMED BY: Eliason MediaHills & [facility]ales [facility] Hospital6370 [facility] [id number] RA Latex Turbid. 10.5 {IU/mL} (Normal) Range: 0.0-13.9 96-Dmi-177933:44 C-REACTIVE PROTEIN (98960) Comments: PATIENT WAS FASTINGPERFORMED BY: LabHills & [facility] Hospital6370 [facility] [id number] C-Reactive Protein, Quant 0.9 mg/L (Normal) Range: 0.0-4.9 78-Ndd-090706:44 JOANNA (ANTINUCLEAR ANTIBODY) Comments: PATIENT WAS FASTINGPERFORMED BY: Eliason MediaHills & [facility] Hospital6370 [facility] [id number] (34866) JOANNA Direct Negative (Normal) 43-Asx-589988:44 LIPID PANEL (10210) Comments: PATIENT WAS FASTINGPERFORMED BY: [employer] Cnjmbn3427 [facility] [id number] LDL Cholesterol Calc 140 mg/dL (Abnormal) Range: 0-99 LDL/HDL Ratio 1.8 {ratio_units} (Normal) Range: 0.0-3.2 HDL Cholesterol 77 mg/dL (Normal) Comments: According to ATP-III Guidelines, HDL-C >59 mg/dL is considered anegative risk factor for CHD. VLDL Cholesterol Hector 19 mg/dL (Normal) Range: 5-40 Triglycerides 97 mg/dL (Normal) Range: 0-149 Cholesterol, Total 236 mg/dL (Abnormal) Range: 100-199 :44 TSH (29619) Comments: PATIENT WAS FASTINGPERFORMED BY: [place] [id number] [facility] [id number] TSH 1.670 {uIU/mL} (Normal) Range: 0.450-4.500 52-Luj-493683:44 URINALYSIS, W/ MICRO (79576) Comments: PATIENT WAS FASTINGPERFORMED BY: [address] [id number] Microscopic Examination See below: (Normal) Bilirubin Negative (Normal) Ketones Negative (Normal) Nitrite, Urine Negative (Normal) Occult Blood 1+ (Abnormal) Urobilinogen,Semi-Qn 0.2 mg/dL (Normal) Range: 0.0-1.9 Glucose Negative (Normal) Protein Negative (Normal) Appearance Clear (Normal) pH 7.0 (Normal) Range: 5.0-7.5 Urine-Color Yellow (Normal) WBC Esterase Negative (Normal) Specific [place] 1.016 (Normal) Range: 1.005-1.030 :44 MICROALBUMIN: CREATININE RATIO Comments: PATIENT WAS FASTINGPERFORMED BY: [facility]6370 [facility] [id number] (31770) AND (16844) Microalb/Creat Ratio 2.8 {mg/g_creat} (Normal) Range: 0.0-30.0 Creatinine, Urine 61.0 mg/dL (Normal) Range: 15.0-278.0 Microalbumin, Urine 1.7 ug/mL (Normal) Range: 0.0-17.0 :44 METABOLIC PANEL, COMPREHENSIVE Comments: PATIENT WAS FASTINGPERFORMED BY: [place] [id number] [facility] [id number] (05366) ALT (SGPT) 16 [iU]/L (Normal) Range: 0-40 [...] Glucose, Serum 92 mg/dL (Normal) Range: 65-99 52-Eat-060037:44 CBC WITH MANUAL DIFF Comments: PATIENT WAS FASTINGPERFORMED BY: LabCoSt. Francis Medical CenterOuhhrr8544 [facility] [id number] Information: [id number] (25054) Immature Grans (Abs) 0.0 {x10E3/uL} (Normal) Range: [...] 3.80-5.10 WBC 6.1 {x10E3/uL} (Normal) Range: 4.0-10.5 09-Odl-520477:11 [facility] CAD Radiology Report See Note (Normal) Comments: Exam Number: [id number] MAMMOGRAPHY - BILATERAL SCREENING INDICATION:Routine annual screening [...] of attaching a ResultCode to this exam.ADDENDUM: [id number] HPBI/MDS Reported By: ELEANOR ERNANDEZ M.D. 1-Opy-495039:01 TSH (43506) Comments: PATIENT NOT FASTINGPERFORMED BY: [facility] Mooykf0601 [facility] [id number] Information: [id number] TSH 0.474 {uIU/mL} (Normal) Range: 0.450-4.500 :21 Thin prep Pap (54138) Comments: of cuff, has had hysterectomy; Source.............VaginalLMP / Prev Treat...HystNo. of containers..01 CYTYC Thin Prep VialPATIENT NOT FASTINGPERFORMED BY: [facility] [address] [id number] Information: [id number] Note: PAPSMR (Normal) Comments: The Pap smear [...] hysterectomy.V72.31 ; Routine gynecological exami Davion Mosley Administration Intern (ASCP) 21-Lxu-794318:57 ABDOMEN/PELVIS W/WO CONTRAST Radiology Report See Note (Normal) Comments: Exam Number: [id number] CLINICAL:Hydronephrosis CT ABDOMEN AND PELVIS WITHOUT / [...] theright-sided hydronephrosis. Reported By: SAVANA AVELAR M.D. 2-Szb-865156:44 Urinalysis, Office (20464) UA - LEUKOCYTE ESTERASE Negative (Normal) UA - NITRITE Negative (Normal) URINE UROBILINGN REYNA TIMED Normal mg/dL (Normal) UA - PROTEIN Negative mg/dL (Normal) UA - PH 6.5 (Normal) UA - BLOOD Hemolyzed Trace (Normal) UA - SPECIFIC GRAVITY 1.010 (Normal) UA - KETONES Negative mg/dL (Normal) UA - BILIRUBIN Negative (Normal) UA - GLUCOSE Negative (Normal) 91-Mgt-514047:45 KIDNEY (HP) Radiology Report See Note (Normal) Comments: Exam Number: [id number] CLINICAL:The patient is a 69-year-old female who [...] no hydronephrosis Reported By: ELEANOR ERNANDEZ M.D. 53-Mmq-854025:14 BMP BUN/CRE 17.8 {RATIO} (Normal) Range: 10-20 [...] (Normal) GLU 90 mg/dL (Normal) Range: 70-110 67-Jql-767884:52 Iron and TIBC Comments: PATIENT NOT FASTINGPERFORMED BY: [facility]6370 [facility] [id number] Iron Saturation 21 % (Normal) Range: 15-55 Iron, Serum 55 ug/dL (Normal) Range: 35-155 UIBC 202 ug/dL (Normal) Range: 150-375 Iron Bind.Cap.(TIBC) 257 ug/dL (Normal) Range: 250-450 72-Iom-377468:52 Renal function Panel (43347) Comments: PATIENT NOT FASTINGPERFORMED BY: [employer] Dtyhrs4993 [facility] [id number] Albumin, Serum 3.7 g/dL (Normal) Range: 3.5-4.8 [...] Glucose, Serum 91 mg/dL (Normal) Range: 65-99 70-Mvt-918842:52 Ferritin (28017) Comments: PATIENT NOT FASTINGPERFORMED BY: [employer] Dqpdox7162 [facility] [id number] Ferritin, Serum 338 ng/mL (Abnormal) Range: 13-150 03-Sxc-970697:52 CBC with manual diff Comments: PATIENT NOT FASTINGPERFORMED BY: [facility]6370 [facility] [id number] Information: [id number] (39594) Baso (Absolute) 0.0 {x10E3/uL} (Normal) Range: 0.0-0.2 [...] 3.80-5.10 WBC 7.9 {x10E3/uL} (Normal) Range: 4.0-10.5 38-Jhz-080368:20 TSH (07204) Comments: PATIENT NOT FASTINGPERFORMED BY: [place] [id number] [facility] [id number] TSH 0.830 {uIU/mL} (Normal) Range: 0.450-4.500 62-Iko-275623:20 CBC with manual diff Comments: PATIENT NOT FASTINGPERFORMED BY: [place] [id number] [facility] [id number] Information: [id number] (36392) Hematology Comments: Note: (Normal) Comments: Verified by [...] 3.80-5.10 WBC 21.6 {x10E3/uL} (Abnormal) Range: 4.0-10.5 11-Aih-258119:58 Serum Protein Comments: PATIENT NOT FASTINGPERFORMED BY: [address] [id number] Information: ADD [id number] NO DRAW FEE Electrophoresis (SPEP) (68029) A/G Ratio 1.6 (Normal) Range: 0.7-2.0 Please note: SPRCS (Normal) Comments: Protein electrophoresis scan will follow via computer, mail, orcourier delivery. Tizju-9-Gcyfcirn 0.2 g/dL (Normal) Range: 0.1-0.4 Ndfex-7-Hzsactow 0.6 g/dL (Normal) Range: 0.4-1.2 Beta Globulin 0.9 g/dL (Normal) Range: 0.6-1.3 Gamma Globulin 0.9 g/dL (Normal) Range: 0.5-1.6 Globulin, Total 2.6 g/dL (Normal) Range: 2.0-4.5 M-Slim Not Observed g/dL (Normal) Albumin 4.2 g/dL (Normal) Range: 3.2-5.6 Protein, Total, Serum 6.8 g/dL (Normal) Range: 6.0-8.5 26-Rxc-774778:58 VITAMIN B-12 (CYANOCOBALAMIN) Comments: PATIENT NOT FASTINGPERFORMED BY: [employer]70 [facility]First[facility] [id number] (12339) Vitamin B12 300 pg/mL (Normal) Range: 211-911 77-Cqe-355885:58 SED RATE ERYTHROCYTE (10078) Comments: PATIENT NOT FASTINGPERFORMED BY: [employer]6370 Lindsey ShellFirstHealth [facility] [id number] Sedimentation Rate-Westergren 2 mm/h (Normal) Range: 0-30 61-Fhm-010832:20 CBC With Differential/Platelet Comments: PATIENT WAS FASTINGPERFORMED BY: [employer]6370 [employer] WireFormer[facility] [id number] Baso (Absolute) 0.1 {x10E3/uL} (Normal) Range: 0.0-0.2 [...] 3.80-5.10 WBC 5.4 {x10E3/uL} (Normal) Range: 4.0-10.5 74-Ebr-050927:20 Comp. Metabolic Panel (14) Comments: PATIENT WAS FASTINGPERFORMED BY: LabCoSt. Francis Medical CenterTnfkum8517 [facility] [id number] ALT (SGPT) 19 [iU]/L (Normal) Range: 0-40 [...] Glucose, Serum 95 mg/dL (Normal) Range: 65-99 [id number]-Ljw-[id number]:20 Lipid Panel With LDL/HDL Comments: PATIENT WAS FASTINGPERFORMED BY: [facility] CenterShopmiumFirst[facility] [place] [id number] Ratio HDL Cholesterol 66 mg/dL (Normal) Comments: [...] 1.050 {uIU/mL} Comments: PATIENT WAS FASTINGPERFORMED BY: [id number] [facility] [id number] :20 (Normal) Range: 0.450-4.500 50-Guk-38661:50 CBCD,SMEAR DIFF BAND 1 % (Normal) Range: [...] :50 TSH 1.25 {uIU/mL} (Normal) Range: 0.34-4.82 30-[id number]-[id number]:41 BILAT SCRN DIGITAL & CAD Radiology Report See Note (Normal) Comments: Exam Number: [id number] MAMMOGRAM, BILATERAL SCREENING DIGITAL AND CAD HISTORYRoutine [...] mammograms werealso examined with computer-aided detection software ([email or web address], [employer] Reported By: ELEANOR ERNANDEZ M.D. :28 CBCD,SMEAR [...] :28 TSH 0.38 {uIU/mL} (Normal) Range: 0.34-4.82 7-Kem-706092:04 Rapid Strep Test, Office (35798) Rapid Strep Test, Office Negative (Normal) 31-Pms-495662:34 BILAT SCRN DIGITAL & CAD Radiology Report See Note (Normal) Comments: Exam Number: [id number] MAMMOGRAM, BILATERAL SCREENING DIGITAL AND CAD HISTORYRoutine [...] mammograms werealso examined with computer-aided detection software ([employer], [place] [employer] Reported By: ELEANOR ERNANDEZ M.D. 25-Hty-524478:31 DEXA BONE DENSITY STUDY (HP) Radiology Report See Note (Normal) Comments: Exam Number: [id number] BONE DENSITOMETRY HISTORYPostmenopausal. TECHNIQUE Bone densitometry of [...] withinnormal limits. Reported By: ELEANOR ERNANDEZ M.D. 52-Mpd-133299:39 COMP METABOLIC A/G 1.1 {RATIO} (Normal) Range: [...] : Follow up in 3 months with [facility] Indication: Hypertensive heart disease Hematuria, unspecified : FOLLOW UP IN 3 MONTHS [facility] Indication: Hematuria, unspecified Abnormal blood chemistry : [...] Gen Med in Sep 2010 make apt [facility] per pt request Indication: Hydronephrosis Hydronephrosis : Follow up for well woman with [facility] per pt request Indication: Hydronephrosis Anemia : FOLLOW UP IN 2 WEEKS January 07 by [facility] Indication: Anemia Abdominal pain, acute, generalized : FOLLOW UP IN 1 WEEK with [facility] Indication: Abdominal pain, acute, generalized Diarrhea : [...] Indication: Bronchitis Planned Observations Metabolic Panel, Comprehensive ([id number])Indication: Hypercholesterolemia On: 7-Pah-133760:52 Request Comments: Jun 2018 LIPID PANEL (27763)Indication: Hypercholesterolemia On: 2-Uld-303556:51 Request Comments: Jun 2018 URINALYSIS ([id number])Indication: Hypertension, essential, benign On: 02-Spo-142498:52 Request MICROALBUMIN: CREATININE RATIO (65104) AND (12704)Indication: Hypertension, essential, benign On: 63-Lti-996001:52 Request Metabolic Panel, Comprehensive (38731)Indication: Hypertension, essential, benign On: 17-Yxv-709751:50 Request Comments: send to [facility] CBC, Platelets & Auto Diff (59304)Indication: Hypertension, essential, benign On: 81-Vxc-644062:50 Request Comments: send to [facility] TSH (99867)Indication: Hypothyroidism On: 70-Qna-959418:50 Request Comments: send to [facility] LIPID PANEL (91575)Indication: Hypercholesterolemia On: 22-Oqp-266993:50 Request Comments: send to [facility] URINALYSIS (04288)Indication: Hypertension, essential, benign On: 2-Blw-255322:03 Request Comments: today MICROALBUMIN: CREATININE RATIO (98679) AND (96743)Indication: Hypertension, essential, benign On: 1-Omp-169140:03 Request Comments: today TSH (28608)Indication: Hypothyroidism On: 0-Muy-902258:03 Request Comments: Jul 2017 MICROALBUMIN: CREATININE RATIO (64753) AND (67038)Indication: Hypertension, essential, benign On: 15-Cln-087952:51 Request Comments: Mar 2017 URINALYSIS ([id number])Indication: Hypertension, essential, benign On: 08-Rnh-137036:51 Request Comments: Mar 2017 TSH (81452)Indication: Hypertension, essential, benign On: 45-Ejb-951378:51 Request Comments: Mar 2017 CBC, Platelets & Auto Diff (38574)Indication: Hypertension, essential, benign On: 33-Xkb-988540:51 Request Comments: Mar 2017 Metabolic Panel, Comprehensive (60542)Indication: Hypertension, essential, benign On: 83-Bkl-448805:51 Request TSH (THYROID STIMULATING HORMONE) (40826)Indication: Hypothyroidism On: 29-Gmc-165890:53 Request HEPATIC FUNCTION PANEL (02135)Indication: Hypertension, essential, benign On: 90-Gqi-557328:47 Request VITAMIN B12 AND FOLATES (26260)Indication: Vitamin B 12 deficiency On: 0-Fzj-046302:52 Request CALCIFEDIOL (95468)Indication: DEFICIENCY, VITAMIN D NOS On: 0-Xso-994194:52 Request Urinalysis, Office (43448)Indication: Hematuria, unspecified On: 17-Oqq-045635:35 Request MICROALBUMIN URINE QUANT (19690)Indication: Hypertensive heart disease On: 68-Vzo-903131:25 Request FECAL OCCULT HGB ASSAY- tubes sent home (77507)Indication: Well woman exam On: 9-Wtf-033153:51 Request OCCULT BLOOD FECES SCREEN- card done in office (30781)Indication: Well woman exam On: 6-Oca-177341:51 Request Renal function Panel (33768)Indication: Hydronephrosis On: 2-Hau-582806:22 Request Iron (71366)Indication: Anemia On: 46-Kcx-128657:39 Request Iron Binding Capacity (TIBC) (25796)Indication: Anemia On: 16-Xek-680921:39 Request OVA & PARASITE DIR SMEAR (72740)Indication: Diarrhea On: 63-Jna-343765:50 Request OCCULT BLOOD FECES SCREEN (54643)Indication: Diarrhea On: 47-Oyq-417687:50 Request LEUKOCYTE COUNT, FECAL (09882)Indication: Diarrhea On: 50-Bnt-058417:50 Request C-DIFFICILE, STOOL (85946)Indication: Diarrhea On: 74-Emu-649006:50 Request LORNA CULTURE-STOOL (53144)Indication: Diarrhea On: 08-Eqm-699111:50 Request HEPATIC FUNCTION PANEL (08203)Indication: Hypercholesterolemia On: 17-Ttv-140236:46 Request Lipid Panel (45363)Indication: Hypercholesterolemia On: 89-Ibd-464295:46 Request Comments: in three months (approximately) TSH (77463)Indication: Hypothyroidism On: 40-Lkp-847634:06 Request METABOLIC PANEL, COMPREHENSIVE (04754)Indication: Hypertensive heart disease On: 07-Uod-502238:06 Request LIPID PANEL (26305)Indication: Hypertensive heart disease On: 62-Dbv-031564:06 Request CBC WITH MANUAL DIFF (06301)Indication: Hypertensive heart disease On: 17-Uru-120489:06 Request LORNA CULTURE-OTHER (28350)Indication: Pharyngitis, acute On: 1-Rsj-841885:04 Request CBC (Auto) ([id number])Indication: Hypercholesterolemia On: :13 Request Lipid Panel (38541)Indication: Hypercholesterolemia On: 06-Bkx-43149:13 Request Metabolic Panel, Comprehensive (27213)Indication: Hypercholesterolemia On: 67-Tdr-65840:13 Request Comments: in six months (approximately) TSH (51965)Indication: Hypothyroidism On: 46-Wcy-707138:06 Request LIPID PANEL (54375)Indication: Hypertension On: 39-Lwb-400398:01 Request Planned Encounters Medical; 3 Month FU - On: 14-Jun-2018 10:45 [facility] Sarai Bro CNP, CNP, Mary E Planned Procedures MAMMOGRAM BREAST BILATERAL On: 27-May-2018 Intent SCREENING DIGITAL (51464)By: Sarai Bro CNP, CNP, Mary E Radiology - Femur - RightBy: Hang On: 02-Mar-2018 Intent Sarai CARNEY CNP, Mary E DEXA SCAN AXIAL SKELETON On: 19-Oct-2017 Intent (36268)By: Sarai Bro CNP, CNP, Mary E Aerosol Treatment (34801)By: On: 07-Sep-2017 Intent Kelly Naqvi Comments: Lungs clear after aerosol treatment Flu Vaccine (Quadrivalent) On: 13-Apr-2017 Intent 31494Pq: Giselle Silva LPN Comments: InfluenzaLot #[id number]-/18/18Site-L dltd, IMDose prefilled syringeVIS and ABN signedgiven by:ROSA MARIA cade MAMMOGRAM BREAST BILATERAL On: 05-Jan-2017 Intent SCREENING DIGITAL (05336)By: Hang Comments: after Apr 24 2017 Sarai CARNEY CNP, Mary E DEXA SCAN AXIAL SKELETON On: 05-Jan-2017 Intent (51722)By: Sarai Bro CNP Comments: After Apr 24 2017 Sarai CARNEY Flu Vaccine (Quadrivalent) On: 06-Jul-2016 Intent [id number]: Giselle Silva LPN Comments: InfluenzaLot #Lot [id number]/30/17Site-L dltd, IMDose prefilled syringeVIS and ABN signedgiven by:ROSA MARIA cade MAMMOGRAM, SCREENING, BOTH BREAST On: 31-Mar-2016 Intent (61717)By: Sarai Bro CNP, CNP, Mary E MAMMOGRAM, SCREENING, BOTH BREAST On: 17-Feb-2016 Intent (84810)By: Sarai Bro CNP, CNP, Mary E PHYSICAL THERAPY EVALUATION On: 28-Jan-2016 Intent (65080)By: Sarai Bro CNP, CNP, Mary E PHYSICAL THERAPY EVALUATION On: 28-Jan-2016 Intent (89993)By: Sarai Bro CNP, CNP, Mary E Toradol Injection, 30 mg On: 28-Jan-2016 Intent ([id number])By: Sarai Bro CNP, CNP, Mary E Radiology - Lumbar SpineBy: Hang On: 28-Jan-2016 Intent Sarai CARNEY CNP, Mary E Radiology - Knee - LeftBy: Hang On: 28-Jan-2016 Intent Sarai CARNEY CNP, Mary E Aerosol Treatment (08671)By: Hang On: 24-Dec-2015 Intent Sarai CARNEYbonita ANGELIKASarai Flu Vaccine (Quadrivalent) On: 10-May-2015 Intent 51251Yz: Hang CARNEY Rianna Cibonita Comments: Lot:[id number]:02/06/16Dose:0.5mLRoute:IMSite:L DltdGiven By:Kacie galaviz CNP Sarai Moon DEXA SCAN AXIAL SKELETON On: 19-Mar-2015 Intent (23297)By: Hang CARNEY RiannaRed Bro CNP Sarai Moon MAMMOGRAM, SCREENING, BOTH BREAST On: 11-Feb-2015 Intent (27650)By: Hang CARNEY Rianna Ciwojciechyin CARNEY Sarai Moon DEXA SCAN AXIAL SKELETON On: 11-Feb-2015 Intent (77966)By: Hang CARNEY RiannaRed Bro CNP Sarai Moon Solu -Medrol Injection, 125 mg On: 25-Jul-2014 Intent (J2930)By: Sarai Bro CNP Comments: [id number] 5.17right gm125 mgas, ROSA MARIA CARNEY Sarai Moon Aerosol Treatment (69798)By: Hang On: 25-Jul-2014 Intent Sarai CARNEY Tiffaniebonita ANGELIKA Sarai Moon Toradol Injection, 30 mg On: 18-Jul-2014 Intent (J1885)By: Hang CARNEY RiannaRed Bro CNP Sarai Moon Radiology - Lumbar SpineBy: Hang On: 18-Jul-2014 Intent ANGELIKASarai Tiffaniewojciechyin CARNEY Sarai Moon Radiology - Hip - RightBy: Hang On: 18-Jul-2014 Intent ANGELIKA Sarai Moon Tiffaniebonita ANGELIKA Sarai Moon Prevnar 13 (13360)By: Ricardo CRANE, On: 16-Jul-2014 Intent Giselle Comments: [id number] arm, IMAS Bone Density StudyBy: Hang CARNEY, On: 15-May-2014 Intent Sarai Bro CNP Rianna ADMINISTRATION OF INFLUENZA VIRUS On: 15-May-2014 Intent VACCINE (G0008)By: Sarai Bro CNP, CNP Rianna FLU VAC, SPLIT, >3 YEARS, On: 15-May-2014 Intent INTRAMUSC (94099)By: Hang CARNEY, Comments: Lot:[id number]:04/24Dose:0.5mLRoute:IMSite:L DltdGiven By:JSONIA signed Sarai Moon Tiffaniebonita ANGELIKA Sarai Moon SPECIMEN HNDLNG/TRNSPRT, OFFC > On: 22-Mar-2014 Intent LAB (88610)By: Hang CARNEY RiannaRed Bro CNP Rianna BILATERAL MAMMOGRAMS (06642)By: On: 18-Dec-2013 Intent Hang CARNEY Sarai Moon Tiffaniewojciechyin CARNEY Sarai Moon Aerosol Treatment (98603)By: Hang On: 22-Sep-2013 Intent ANGELIKA Sarai Moon Hang CARNEY Rianna Wax CurettesBy: Hnag CARNEY Rianna On: 22-Sep-2013 Intent Hang CARNEY Rianna Ear Irrigation (09681)By: Hang On: 22-Sep-2013 Intent ANGELIKASarai Tiffaniewojciechyin CARNEY Sarai Moon Eprescribed prescriptions On: 18-Aug-2013 Intent (G8553)By: Lucrecia Vargas Eprescribed prescriptions On: 05-May-2013 Intent (G8553)By: Hang CARNEY RiannaRed Bro CNP Rianna ADMINISTRATION OF INFLUENZA VIRUS On: 05-May-2013 Intent VACCINE (G0008)By: Aristides CRANE, Comments: lot # [id number] 6.2014site- L dltdroute-IMdose- 0.5mlVIS and ABN signedBlessing Francis FLU VAC, SPLIT, >3 YEARS, On: 05-May-2013 Intent INTRAMUSC (09101)By: Penny Irving LPN MAMMOGRAM, SCREENING, BOTH BREASTS On: 16-Dec-2012 Intent (20752)By: Hang CARNEY RiannaRed Bro CNP Rianna Spirometry (97784)By: Aristides CRANE, On: 16-Dec-2012 Intent Penny Comments: mild airway obstruction Aerosol Treatment (05747)By: Hang On: 30-Mar-2012 Intent ANGELIKA Sarai Moon Hang CARNEY Rianna PFT - CompleteBy: Sarai Bro CNP On: 01-Mar-2012 Intent Red Bro CNP Rianna Inhaler Demonstration (02392)By: On: 28-Dec-2011 Intent Sarai Bro CNP, CNP, Mary E Pulse Oximetry (62956)By: Hang On: 28-Dec-2011 Intent Sarai CARNEY CNP, Mary E Eprescribed prescriptions On: 22-Apr-2011 Intent (G8553)By: Hang CARNEY, Sarai Bro CNP, Sarai Moon Eprescribed prescriptions On: 21-Oct-2010 Intent (G8553)By: Sarai Bro CNP, CNP, Sarai Moon Eprescribed prescriptions On: 21-Oct-2010 Intent (G8553)By: Sarai Bro CNP, CNP Sarai Moon MAMMOGRAM, SCREENING, BOTH BREASTS On: 15-Apr-2010 Intent (51131)By: Hang CARNEY Sarai Bro CNP Sarai Moon Ultrasound - RenalBy: Hang CARNEY, On: 23-Dec-2009 Intent Sarai Bro CNP Sarai Moon Comments: To be done on December 30 CT - Abdomen & Pelvis (IV Contrast On: 17-Dec-2009 Intent Needed)By: Hang CARNEYSarai CNP Sarai Moon ADMINISTRATION OF INFLUENZA VIRUS On: 22-May-2009 Intent VACCINE (G0008)By: Karina Nina LPN FLU VAC, SPLIT, >3 YEARS, On: 22-May-2009 Intent INTRAMUSC (14367)By: Kelle CRANE, Comments: Lot #[id number]-left deltoidgiven by:MELA Collins Pulse Oximetry (67984)By: Jay On: 25-Sep-2008 Intent PRESTON ADMINISTRATION OF INFLUENZA VIRUS On: 13-Jun-2008 Intent VACCINE (G0008)By: Aristides CRANE, Comments: lot #[id number] exp- 01/15site-left delroute-imdose- 0.5 Penny FLU VAC, SPLIT, >3 YEARS, On: 13-Jun-2008 Intent INTRAMUSC (47601)By: Penny Irving LPN MAMMOGRAM, SCREENING, BOTH BREASTS On: 28-May-2008 Intent (01380)By: Susan Lee MD M Bio Z (73649)By: Susan Lee MD On: 28-Nov-2007 Intent M SPECIMEN HNDLNG/TRNSPRT, OFFC > On: 12-Oct-2007 Intent LAB (45810)By: Tyesha Ramos DO Bone Density StudyBy: Rosa CHRISTIANSEN, On: 18-Feb-2007 Intent Susan Sánchez Comments: ache in back MAMMOGRAM, SCREENING, BOTH BREASTS On: 18-Feb-2007 Intent (65128)By: Susan Lee MD Bio Z (43187)By: Susan Lee MD On: 20-Jul-2006 Intent M Planned Medications INJECTION, KETOROLAC TROMETHAMINE, PER 15 MG Ordered: 18-Jul-2014 Pending Ciesa JOINT MAKER MACHINE, Rianna Ciesa JOINT MAKER MACHINE, Rianna INJECTION, KETOROLAC TROMETHAMINE, PER 15 MG Ordered: 28-Jan-2016 Pending Ciesa JOINT MAKER MACHINE, Rianna Ciesa JOINT MAKER MACHINE, Rianna INJECTION, METHYLPREDNISOLONE SODIUM SUCCINATE, UP TO 125 MG Ordered: 25-Jul-2014 Pending Ciesa JOINT MAKER MACHINE, Rianna Ciesa JOINT MAKER MACHINE, Rianna Instructions Name Dates Details Nonsmoker : [...] prophylactic vaccination and inoculation against influenza Encounters Annotation/Addendum On: 27-May-2018 7:57 Encounter Diagnosis: Screening [...] In January had cardioversion by Dr. Tova boogie heart. On coumadin now Legs both [...] In January had cardioversion by Dr. Tova boogie heart. On coumadin now Legs both [...] Onset was sudden 1 day(s) ago.Encounter Diagnosis: [facility] Office Visit On: 31-Mar-2016 [...] Follow up for chronic medical issues: In J raymond had cardioversion by Dr. Paz shocked heart. [...] () a mini mental status exam done to End: 15-May-2014 11:58 ay. The activities of daily living the patient needs help with are none. The patient has driven in past 6 months. The patient has completed the following preventative measures: mammography (12/20) and co lonoscopy (2012- Dr Tompkins ). The patient does have durable power of attorney law clerk and living will. The patient has noticed nothing from the geriatic depression scale. Other providers contributing to the katty ent's care are scada engineer (Dr paz ), boom stick man (Dr Vazquez ), urologist (Dr Pope ) [...]
--- OUTSIDE RECORDS SUMMARY | 2018-09-02 07:05 | XMS RPT_ITS | Continuity of Care Document ---
:1940 Author Organization [facility] Address [address] [facility] [address] [place] [address] Phone Care Team Providers Name Role Phone Tiffaniewojciechyin CARNEY, Sarai Moon Unavailable Amanda CHRISTIANSEN, Higinio Longoria Unavailable Turner CHRISTIANSEN, Nahun Plaza Unavailable [facility] BC, Eugenie Tovar Unavailable Rosa CHRISTIANSEN, Susan Sánchez Unavailable Nahun Vzaquez Unavailable Waleska Freitas Unavailable Unavailable Giselle Silva LPN Unavailable Unavailable Kelly Naqvi Unavailable Manny Saldana Unavailable Unavailable Unavailable Unavailable [...] resume on 1/2 the dose Status: Active SOB (shortness of breath) on [...] Refills: 0 Ordered:28-Jan-2016 Sarai Bro CNP, CNP, Sarai Moon Start : 28-Jan-2016 Active Comments:Medication taken as [...] CNP, Sarai Moon Start : 11-Feb-2015 Active Breo Ellipta 100-25 MCG/INH Inhalation Aerosol Powder Breath Activated 1 (one) Puff Puff qd for 30 days Quantity: 30 {Inhalation} Refills: 4 Ordered:02-Mar-2018 Slarb Giselle CRANE Start : 25-Jan-2018 Active Comments:diane manages CALCIUM, 500MG (Oral Tablet) 2 (two) Tablet qd for 0 days Refills: 0 Ordered:22-Apr-2011 Slarb [facility] WORKER, Giselle Start : 22-Apr-2011 Active COQ10, 100MG (Oral Capsule) 1 (one) Capsule Capsule daily for 0 days Quantity: 30 {Capsule} Refills: 0 Ordered:25-Jul-2014 Penny Irving LPN Start : 18-Jul-2014 Active Coreg 6.25 MG Oral Tablet 2 (two) Tablet two times daily for 0 days Quantity: 180 {Tablet} Refills: 3 Ordered:05-Oct-2016 Sarai Bro CNP, CNP, Mary E Start : 05-Oct-2016 Active Cosamin ASU for Joint Health Oral Capsule Active COUMADIN, 2MG (Oral Tablet) 1 (one) Tablet as needed for 360 days Refills: 0 Ordered:11-Feb-2015 Hang CARNEY, Sarai Jung CNP Start : 11-Feb-2015 Active Comments:Medication taken as needed. Dr Paz Fosamax 70 MG Oral Tablet 1 (one) Tablet Tablet q week for 30 days Quantity: 4 {Tablet} Refills: 6 Ordered:02-Mar-2018 Sarai Bro CNP, CNP, Mary E Start : 26-Nov-2017 Active Comments:Take w/ water, [...] Quantity: 30 {Capsule} Refills: 11 Ordered:02-Mar-2018 Hang ANGELIKA Sarai Ace ANGELIKA Sarai Moon Start : 26-Nov-2017 Active Zithromax Z-Kevin 250 MG Oral Tablet 1 Tablet uad for 0 days Quantity: 1 {Package} Refills: 0 Ordered:18-May-2018 Hang ANGELIKA Sarai Ace ANGELIKA Sarai Moon Start : 18-May-2018 Active ALBUTEROL [...] days Quantity: 28 {Tablet} Refills: 0 Ordered:25-Jul-2014 Tiffaniewojciechyin CARNEY Sarai Arguelloyin CARNEY Sarai Moon Start : 25-Jul-2014 End : 08-Aug-2014 Inactive B-12 1000 MCG Oral Tablet Extended Release 1 (one) Tablet ER weekly for 360 days Refills: 0 Ordered:13-Apr-2017 Tiffaniewojciechyin CARNEY Sarai Ace CNP, Sarai Moon Start : [...] Quantity: 20 {Capsule} Refills: 0 Ordered:18-Aug-2013 Hang CARNEY Sarai Ace CNP, Sarai Moon Start : 18-Aug-2013 End : 28-Aug-2013 Inactive DRISDOL, [id number] (Oral Capsule) 1 Capsule twice weekly for [...] {Tablet} Refills: 0 Ordered:15-Nov-2017 Sarai Bro CNP, CNP, Mary E Start : 15-Nov-2017 End : 22-Nov-2017 Inactive [...] days Quantity: 60 {Capsule} Refills: 0 Ordered:10-May-2015 Ricardo CRANEGiselle Start : 22-Apr-2011 End : 10-May-2015 Discontinued [...] Lower Extremity Result: Comments: See Note; NOTES: [facility] Cardiovascular Services [address] [place] [address] Venous Duplex US - Paulie Extrem 04/07/18 1000 MR#: [id number] Acct: [id number] Name: VALERIE CRAIN Rep #: [id number] : 1940 77 From: Higinio Ptael MD Attending Dr: Higinio Patel MD Status: [...] Dictated: 04/07/18 1000 Date Transcribed: 04/08/18 1605 Mess Cook: Signed 02-Mar-2018 Femur Min 2 Views Result: Comments: See Note; NOTES: [facility] Imaging Services [address] [place] [address] Femur Min 2 Views MR#: [id number] Acct: [id number] Name: VALERIE CRAIN Rep #: [id number] : 1940 F 77 From: Christiano Croft MD PCP: Sarai Bro NP Status: REG CLI Study: Femur Min 2 Views Date of Exam: 03/02/18 Exam# [id number] Ordering Dr: Sarai Bro STUDY: X-RAY - [...] vice support , CC: Sarai Bro NP Mess Cook: Signed 10-Feb-2018 Echocardiogram Complete Result: Comments: See Note; NOTES: [facility] Cardiovascular Services [address] [place] [address] Echo Complete 02/10/18 1100 MR#: [id number] Acct: [id number] Name: VALERIE CRAIN Rep #: [id number] : 1940 77 From: Amilcar Paz MD Attending Dr: Jennifer Goodwin Status: REG CLI Ordering Dr: Jennifer Goodwin Date: 02/10/18 Location[facility] Sex: F C Admitted: [facility] n For Study: DYSPNEA Procedure This was a [...] Date Amilcar Paz MD CC: Sarai Bro TRANSPORTATION MAINTENANCE WORKER; Jennifer Goodwin Date Dictated: 02/10/18 1100 Date Transcribed: 02/10/18 124 Mess Cook: Signed 28-Jan-2018 Cardiology Visit Report Result: Comments: See Note; NOTES: [facility] [address] [place] [address] OFFICE VISIT Date of Service: 01/28/18 MR#: [id number] Acct: [id number] Name: VALERIE CRAIN Rep #: [id number] : 1940 Provider: Jennifer Goodwin Age/Sex: 77/F Location: [facility] Status: Signed HPI HPI Details: VALERIE RCAIN, is a 77 F who presents to [...] for her age. 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 Follow Up 6 Months (PROGRAM ASSOCIATE) Coding Level of Care Code Off vis,est,l [...] Downtime Report Result: Comments: See Note; NOTES: [facility] Medical Records Department [address] [place] [address] Downtime Report MR#: [id number] Acct: [id number] Name: VALERIE CRAIN Rep #: [id number] : 1940 77 From: Anuj Webster PCP: Sarai Bro NP Status: REG RCR This patient was seen during an EMR downtime January 10, 2018 - January 17, 2018. This patient may have a combination of pa per and electronic documentation or all paper documentation. All documentation is viewable within the e-chart portion of [employer] for each patient visit. 09-Nov-2017 Dexa Bone Density Study Result: Comments: See Note; NOTES: [facility] Imaging Services [address] [place] [address] Dexa Bone Density Study MR#: [id number] Acct: [id number] Name: VALERIE CRAIN Rep #: [id number] : 1940 F 77 From: Henry Jones MD PCP: Sarai Bro NP Status: REG CLI Study: Dexa Bone Density Study Date of Exam: 11/09/17 Exam# [id number] Ordering Dr: Sarai Bro STUDY: DUAL E [...] Henry Jones MD at 13:40 EDT Tel [phone], Service support , CC: Sarai Bro NP Mess Cook: Signed 27-Jul-2017 Cardiology Visit Report Result: Comments: See Note; NOTES: [facility] [address] [place] [address]. 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 (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) Benign essential HTN (Chronic) Dyslipidemia (Chronic) mitral maria m vuplasty (Chronic) Surgical History H/O mitral valve repair (Chronic) Family History Father , age 48 from ID CAD (coronary artery disease) Sudden cardiac Myocardial [...] Detail Follow Up 6 Months (mmm) 07/27/17 2623 <Electronically signed by Amilcar Paz MD> Date Amilcar Monahanignjayden Signature: Date (if applicable) CC: Sarai Tiffaniebonita TRANSPORTATION MAINTENANCE WORKER 17-May-2017 SCREENING MAMM (CAD), BILAT Result: Comments: See Note; NOTES: [facility] Imaging Services [address] [place] [address] SCREENING MAMM (CAD), BILAT MR#: [id number] Acct: [id number] Name: SEAN CRAIN Rep #: [id number] : 1940 F 76 From: Henry Jones MD PCP: Sarai Bro Status: REG CLI Study: SCREENING MAMM (CAD), BILAT Date of Exam: 05/17/17 Exam# [id number] Ordering Dr: Sarai Bro MAMMOGRAPH Y - [...] delay biopsy of a clinically suspicious abnormality. [id number] Electronically Signed: Henry Jones MD at 10:21 EDT Tel [phone], Service support , CC: Sarai Bro Mess Cook: Signed 27-Feb-2017 Carotid Duplex Ultrasound Result: Comments: See Note; NOTES: [facility] Cardiovascular Services [address] [place] [address] Carotid Duplex Ultrasound 02/26/17 1046 MR#: [id number] Acct: [id number] Name: SEAN ABEBE Rep #: [id number] : 1940 76 From: Malcolm Hill MD Attending Dr: Jennifer Goodwin Status: REG CLI Ordering Dr: Jennifer Goodwin Date: 02/26/17 Location: [facility] Sex: F C Admitte d: Reason For [...] the left bulb. Procedure Carotid Duplex 9 7620. The exam was diagnostic. Exam performed in department. Interpretation Summary Mild (<50%) stenosis right extracranial internal carotid. Mild (<50%) stenosis left extracranial inte rnal carotid. Flow within the vertebral arteries is antegrade bilaterally. Ordering Physician: Jennifer Russell Referring Physician: Sarai Bro Performed By: Nava Diaz, BRANT, RVT 02/27/17 1103 Date Malcolm Hill MD CC: Sarai Bro; Jennifer Goodwin Date Dictated: 02/26/17 1046 Date Transcribed: 02/27/17 1103 Mess Cook: Signed 03-Sep-2016 Chest PA and Lateral Result: Comments: See Note; NOTES: [facility] Imaging Services [address] [place] [address] Verdana 4d Chest PA and Lateral MR#: [id number] Acct: [id number] Name: SEAN CRAIN Rep # : [id number] : 1940 F 76 From: Henry Jones MD PCP: Sarai Bro Status: REG CLI Study: Chest PA and Lateral Date of Exam: 09/03/16 Exam# [id number] Ordering Dr: Nahun Vazquez MD STUD Y: [...] Henry diop MD at 12:41 EST Tel [phone], Service support [phone], CC: Sarai Bro; Nahun Vazquez MD Mess Cook: Signed 28-Aug-2016 Echocardiogram Complete Result: Comments: See Note; NOTES: [facility] Cardiovascular Services [address] [place] [address] Echo Complete 08/28/16 1003 MR#: [id number] Acct: [id number] Name: SEAN CRAIN p #: [id number] : 1940 76 From: Amilcar Paz MD Attending Dr: Tova CHRISTIANSEN,Amilcar Status: REG CLI Ordering Dr: Amilcar Paz MD Date: 08/28/16 Location: [facility] Sex: F C Admitted: Reason For Study: AT [facility] FIB[facility]LL[facility] Procedure This was a 2D Doppler, [...] Dictated: 08/28/16 1003 Date Transcribed: 08/28/16 1225 Mess Cook: Signed 24-Apr-2016 Bilat Scrn Digital AND CAD Result: Comments: See Note; NOTES: [facility] Imaging Services [address] [place] [address] Verdana 4d Bilat Scrn Digital AND CAD MR#: [id number] Acct: [id number] Name: SEAN CRAIN Rep #: [id number] : 1940 F 75 From: Henry Jones MD PCP: Sarai Bro Status: REG CLI Study: Bilat Scrn Digital AND CAD Date of Exam: 04/24/16 Exam# [id number] Ordering Dr: Sarai Bro MAMMOGRAPHY - BILATERAL [...] significant change since the prior study. ___ BI/Bilat Scrn Digital AND CAD IMPRESSION: Stable bilateral screening mammogram. Yearly follow-up mammogram recommended. (A) ASSESSMENT CATEGORY: BIRADS Category 1: Negative. A letter regarding these results will be sent to the patient by the facility within 30 days. Approximately 10% of breast cancers are n ot detected by mammography. A normal mammogram should not delay biopsy of a clinically suspicious abnormality. [id number] Electronically Signed: Henry Jones MD at 10:58 EDT Tel [phone], Service support [phone], CC: Sarai Bro Mess Cook: Signed 04-Mar-2016 PT D/C Summary (1) Result: Comments: See Note; NOTES: [facility] Physical Therapy [facility] [address] [place] [address]. [address] [place] [address] Fax REHABILITATION SE RVICES DISCHARGE SUMMARY MR#: [id number] Acct: [id number] Name: SEAN CRAIN Rep #: [id number] : 1940 75 From: Giselle NELSON Referring DrStacey: Sarai Bro Status: REG RCR Insurance: MEDICARE [...] please feel free to call me at [phone]. Thank you for the referral of this patie nt. Sincerely, Giselle Yan <Electronically signed by Giselle NELSON> 03/04/16 1917 CC: Sarai Bro Signed 04-Feb-2016 Inital Evaluation (1) - PT Result: Comments: See Note; NOTES: [facility] Physical Therapy [facility] [address] [place] [address] Fax REHABILITATION SE MEDEROS INITIAL EVALUATION MR#: [id number] Acct: [id number] Name: SEAN CRAIN Rep #: [id number] : 1940 75 From: Giselle Yan MPT Referring Dr.: Sarai Bro Status: REG RCR Insurance: MEDICARE PART A B [facility] Patient's Visit Information SEAN CRAIN is [...] to be FAXED BACK to us at [phone] for Medicare purposes . Please let me know if there are questions or concerns regarding this plan of care. Physician Signature: Date: <Electronical ly signed by Giselle Yan MPT> 02/04/16 1628 CC: Sarai Bro Signed For Medicare only, by signing this I certify the plan of care. Physicians Signature Date 28-Jan-2016 Knee 4 or More Views Result: Comments: See Note; NOTES: [facility] Imaging Services [address] [place] [address] Verdana 4d Knee 4 or More Views MR#: [id number] Acct: [id number] Name: SEAN DWYER Rep #: [id number] : 1940 F 75 From: Shreyas Beaver MD PCP: Sarai Bro Status: REG CLI Study: Knee 4 or More Views Date of Exam: 01/28/16 Exam# [id number] Ordering Dr: Sarai Bro STUDY: X-RAY - [...] MD at 19:39 EDT , Service support [phone], ORDER # : [id number] RAD/Knee 4 or More Views IMPRESSION: No acute abnormality. Mild degenerative changes. Electronically Signed: Shreyas Beaver MD at 19:39 EDT , Service sup port [phone], CC: Sarai Bro Mess Cook: Signed 28-Jan-2016 L/S Spine Min 4 Views Result: Comments: See Note; NOTES: [facility] Imaging Services [address] [place] [address] Verdana 4d L/S Spine Min 4 Views MR#: [id number] Acct: [id number] Name: SEAN BERRIOS Rep #: [id number] : 1940 F 75 From: Shreyas Beaver MD PCP: Sarai Bro Status: REG CLI Study: L/S Spine Min 4 Views Date of Exam: 01/28/16 Exam# [id number] Ordering Dr: Shital Bro STUDY: X-RAY - [...] MD at 19:40 EDT , Service support [phone], Fax RAD/L/S Spine Min 4 Views IMPRESSION: No acute abnormality. Mild to moderate degenerative changes. Electronically Signed: Shreyas Beaver MD at 19:40 EDT T el [phone], Service support [phone], CC: Sarai Bro Mess Cook: Signed 19-Mar-2015 Dexa Bone Density Study (HP) Result: Comments: See Note; NOTES: [facility] Imaging Services [address] [place] [address] Bone Density Report MR#: [id number] Acct: [id number] Name: SEAN CRAIN Rep #: [id number] : 1940 F 74 From: Henry Jones MD PCP: Sarai Bro Status: REG CLI Study: Dexa Bone Density Study (HP) Date of Exam: 03/19/15 Exam# [id number] Ordering Dr: Sarai Bro STUD Y: DUAL [...] Henry Jones MD at 14:35 EDT Tel [phone], [employer] support [phone], CC: Sarai Bro Mess Cook: Signed 12-Mar-2015 Jero Edwards Digital AND CAD Result: Comments: See Note; NOTES: [facility] Imaging Services [address] [place] [address] Breast Imaging Report MR#: [id number] Acct: [id number] Name: SEAN CRAIN Rep #: [id number] : 1940 F 74 From: Henry Jones MD PCP: Sarai Bro Status: REG CLI Study: Jero Edwards Digital AND CAD Date of Exam: 03/12/15 Exam# [id number] Ordering Dr: Sarai Bro MAMM OGRAPHY - [...] Jones MD 23/03/04 at 9:59 EDT Tel [phone], Service support [phone], CC: Sarai Bro Mess Cook: Signed 16-Jan-2015 Operative Report Result: Comments: See Note; NOTES: [facility] Medical Records Department [address] [place] [address] Operative Report MR#: [id number] Acct: [id number] Name: SEAN CRAIN Rep #: [id number] : 1940 74 From: Amilcar Paz MD [...] care. Amilcar Paz MD T: NTS JOB: [id number] 01/16/15 0901 <Electronically signed by Amilcar Paz MD&amp ;#62; Date Amilcar Paz MD CC: Sarai Bro; Amilcar Paz MD Date Dictated: 01/14/15 1319 Date Transcribed: 01/14/151318 Mess Cook: Signed 15-Jan-2015 Consultation Result: Comments: See Note; NOTES: [facility] Medical Records Department [address] [place] [address] Consultation MR#: [id number] Acct: [id number] Name: SEAN CRAIN Rep #: [id number] : 1940 74 From: Armando Waite MD [...] MD Nelson HENDERSON C: Amilcar Bro T: NTS JOB: [id number] 01/15/15 0643 <Electronically signed by Armando Waite MD> Date Amrando Waite MD CC: Sarai Bro; Armando Waite MD; Amilcar Paz MD Date Dictated: 01/14/15 1357 Date Transcribed: 01/14/151356 Mess Cook: Signed 07-Jan-2015 Chest PA and Lateral Result: Comments: See Note; NOTES: [facility] Imaging Services [address] [place] [address] Radiology Report MR#: [id number] Acct: [id number] Name: SEAN CRAIN Rep #: [id number] : 1940 F 74 From: Henry Jones MD PCP: Sarai Bro Status: PRE CLI Study: Chest PA and Lateral Date of Exam: 01/07/15 Exam# [id number] Ordering Dr: Amilcar Paz MD STUDY: X-RA [...] Henry Jones MD at 14:28 EDT Tel [phone], Service support [phone], RAD/Chest PA and Lateral IMPRESSION: Hyperinflation. No acute abnormality is seen. Electronically Signed: Henry Jones MD 2014 at 14:28 EDT Tel [phone], Service support [phone], CC: Sarai Bro; Amilcar Paz MD Mess Cook: Signed 24-Dec-2014 Echocardiogram Complete Result: Comments: See Note; NOTES: [facility] Cardiovascular Services [address] [place] [address] Echo Complete 12/24/14 1003 MR#: [id number] Acct: [id number] Name: SEAN CRAIN Rep #: [id number] : 1940 74 From: Amilcar Paz MD Attending Dr: Jennifer Monroe Status: REG CLI Ordering Dr: Jennifer Monroe Date: 12/24/14 Location[facility] Sex: F C Admitted: Jose Alfredo raji This was a 2D Doppler, Color [...] Dictated: 12/24/14 1003 Date Transcribed: 12/24/14 1359 Mess Cook: Signed 19-Jul-2014 Hip min 2 Views Result: Comments: See Note; NOTES: [facility] Imaging Services [address] [place] [address] Radiology Report MR#: [id number] Acct: [id number] Name: SEAN CRAIN Rep #: [id number] : 1940 F 74 From: Henry Jones MD PCP: Sarai Bro Status: REG CLI Study: Hip min 2 Views Date of Exam: 07/19/14 Exam# [id number] Ordering Dr: Sarai Bro STUDY: X-RAY - [...] Henry Jones MD at 11:38 EST Tel [phone], Service support [phone], RAD/Hip min 2 Views IMPRESSION: Degenerative changes of the hip. Electronically Signed: Henry Jones MD at 11:38 EST Tel [phone], Service support [phone], CC : Sarai Bro Mess Cook: Signed 19-Jul-2014 L/S Spine Min 4 Views Result: Comments: See Note; NOTES: [facility] Imaging Services [address] [place] [address] Radiology Report MR#: [id number] Acct: [id number] Name: SEAN CRAIN Rep #: [id number] : 1940 F 74 From: Henry Jones MD PCP: Sarai Bro Status: REG CLI Study: L/S Spine Min 4 Views Date of Exam: 07/19/14 Exam# [id number] Ordering Dr: Sarai Bro STUDY: X-RAY - [...] Henry Jones MD at 13:19 EST Tel [phone], Service support [phone], CC: Sarai Bro Mess Cook: Signed 05-Jan-2014 Bilat Scrn Digital & CAD Result: Comments: See Note; NOTES: [facility] Imaging Services [address] [place] [address] Breast Imaging Report MR#: [id number] Acct: [id number] Name: SEAN CRAIN Rep #: [id number] : 1940 F 73 From: Henry Jones MD PCP: Status: REG CLI Exam# [id number] Ordering Dr: Sarai Bro MAMMOGRAPHY - BILATERAL [...] Henry Jones MD at 9:58 EDT Tel [phone], Service support [phone], CC: Sarai Bro; Amilcar Paz MD Mess Cook: Signed Immunization Name Dates Details Influenza (3 years and up) on: 13-Jun-2008 Influenza (3 years and up) on: 22-May-2009 Comments: Lot #[id number] deltoidgiven by:CDH Family History Unknown Family Member Name Dates Details Father Comments: ID at 48 & Status: Active Social History Name Dates Details Caffeine Use Comments: 2 cups coffee qd 1 soda qod Status: Active 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 Status: Inactive Tobacco use: Never smoker. Status: Inactive Vital Signs Date Test Result Details :20 Temperature 99.4 f Comments: Method: Temporal Pulse [...] kg/m2 Body Surface Area Calculated 1.81 m2 42-Xea-862226:30 Temperature 99.2 f Comments: Method: Oral Pulse [...] kg/m2 Body Surface Area Calculated 1.81 m2 01-Fro-611505:39 Temperature 99 f Comments: Method: Oral Pulse [...] Details :18 Prothrombin Time w/INR Comments: [facility] [id number] [place], [address] INR 2.7 (Normal) PROTIME 28.4 s (Abnormal) Range: 11.7-14.9 17-Hgo-257249:14 Prothrombin Time w/INR Comments: [facility] [address] [place], [address] INR 2.2 (Normal) PROTIME 24.6 s (Abnormal) Range: 11.7-14.9 59-Ifd-316299:18 Prothrombin Time w/INR Comments: [facility] [address] [place], [address] INR 2.2 (Normal) PROTIME 24.3 s (Abnormal) Range: 11.7-14.9 34-Def-770142:26 Prothrombin Time w/INR Comments: [facility] [address] [place], [address] INR 2.2 (Normal) PROTIME 24.6 s (Abnormal) Range: 11.7-14.9 50-Phv-951588:13 Prothrombin Time w/INR Comments: [facility] [address] [place], [address] INR 2.3 (Normal) PROTIME 25.7 s (Abnormal) Range: 11.7-14.9 :58 Prothrombin Time w/INR Comments: [facility] [address] [place], [address] INR 2.0 (Normal) PROTIME 22.8 s (Abnormal) Range: 11.7-14.9 :45 CBC W/Diff, Automated Comments: [facility] [address] [place], [place], [id number] ; another Absolute Lymph 2.13 {X10_3/ul} (Normal) [...] 4.2-5.4 WBC 5.6 K/mm3 (Normal) Range: 4.4-11.0 85-Wks-32021:45 Comprehensive Metabolic Profil Comments: [facility] [address] [place], [address] ; Dr Paz GAP 8 (Normal) [...] Comments: Please note revised GLUCOSE reference range fadmujnng07/02/2018. 70-Dkf-04598:45 Lipid Profile Comments: [facility] [address] [place], [address] VLDL 17 mg/dL (Normal) Range: 5-40 LDL [...] 200-240 mg/dL Borderline >240 mg/dL High Risk 63-Unc-99891:45 Microalb:Creat Ratio,Random UR Comments: [facility] [address] [place], [address] MALB:CREAT 8.4 {mg/g_CRE} (Normal) MICROALBUMIN,UR 13.5 mg/L (Normal) UR CREAT 160.00 mg/dL (Normal) 86-Pao-65483:45 Prothrombin Time w/INR Comments: [facility] [address] [place], [address] INR 1.9 (Normal) PROTIME 21.5 s (Abnormal) Range: 11.7-14.9 Comments: ADDENDA: cardio :45 Thyroid Stim Hormone (TSH) Comments: [facility] [address], [address] TSH 2.92 {uIU/mL} (Normal) Range: 0.358-3.74 73-Rzk-87322:45 Urinalysis, Routine (Dipstick) Comments: How was Urine Obtained? CLEAN [facility] [address] [place], [address] ; other doc LEUK ESTERASE 100 /ul (Abnormal) OCCULT BLOOD-UR 50 /ul (Abnormal) NITRITE UR Negative (Normal) UROBILI Normal mg/dL (Normal) PROT DIPSTX Negative mg/dL (Normal) pH UR 6.0 (Normal) Range: 5.0 - 8.0 SP.GR. DIPSTX 1.020 (Normal) Range: 1.002-1.030 KETONE UR Negative mg/dL (Normal) BILIRUBIN URINE Negative mg/dL (Normal) GLUCOSE, UR Normal mg/dL (Normal) CLARITY Cloudy (Normal) COLOR Yellow (Normal) 64-Sal-146953:31 Prothrombin Time w/INR Comments: [facility] [address] [place], [address] INR 2.1 (Normal) PROTIME 23.3 s (Abnormal) Range: 11.7-14.9 7-Ozp-727030:20 Prothrombin Time w/INR Comments: [facility] [address] [place], [place], [address] INR 2.2 (Normal) Comments: ADDENDA: managed by cardio PROTIME 24.1 s (Abnormal) Range: 11.7-14.9 81-Rzx-303382:40 Prothrombin Time w/INR Comments: [facility] [address] [place], [place], [address] ; managed by cardio INR 2.0 (Normal) PROTIME 22.9 s (Abnormal) Range: 11.7-14.9 46-Tsq-993454:13 Prothrombin Time w/INR Comments: [facility] [address] [place], [address] INR 1.6 (Normal) PROTIME 19.5 s (Abnormal) Range: 11.7-14.9 87-Dxk-649592:28 Prothrombin Time w/INR Comments: [facility] [address] [place], [place], [address] ; cardio INR 1.8 (Normal) PROTIME 19.8 s (Abnormal) Range: 11.7-14.9 8-Gfe-901770:53 Prothrombin Time w/INR Comments: [facility] [address] [place], [place], [address] INR 2.4 (Normal) PROTIME 24.8 s (Abnormal) Range: 11.7-14.9 7-Zsc-262526:26 Prothrombin Time w/INR Comments: [facility] [address] [place], [place], [address] INR 1.9 (Normal) PROTIME 21.2 s (Abnormal) Range: 11.7-14.9 03-Ulk-186249:42 Rapid Flu (06476 x 2) Influenza A Ag POS B (Normal) 43-Lir-527846:04 Prothrombin Time w/INR Comments: [facility] [address] [place], [place], [address] ; cardio manages INR 1.4 (Normal) PROTIME 16.5 s (Abnormal) Range: 11.7-14.9 79-Zuz-700713:28 Prothrombin Time w/INR Comments: [facility] [address] [place], [place], [address] INR 1.2 (Normal) PROTIME 14.3 s (Normal) Range: 11.7-14.9 2-Qvf-691822:11 Prothrombin Time w/INR Comments: [facility] [address] [place], [place], [address] INR 2.0 (Normal) PROTIME 21.6 s (Abnormal) Range: 11.7-14.9 06-Dgm-019276:18 CBC W/Diff, Automated Comments: [facility] [address] [place], [place], [address] Absolute Lymph 2.38 {X10_3/ul} (Normal) Range: 0.83-4.51 [...] 4.4-11.0 :18 Prothrombin Time w/INR Comments: [facility] [address] [place], [phone](752) INR 2.1 (Normal) PROTIME 22.8 s (Abnormal) Range: 11.7-14.9 :52 POTASSIUM SERUM (76260) Comments: STAT; Order Date: 07/23/17Order Info: [id number] - KComments: [facility] [address] [place], [address] K 4.4 mmol/L (Normal) Range: 3.5-5.1 24-Yml-807751:56 Microscopic Examination Comments: PATIENT NOT FASTINGPERFORMED BY: [employer] [facility] Kvlxgg[address] [employer] [id number] Bacteria Few (Normal) Mucus Threads Present (Normal) Epithelial Cells (non renal) 0-10 {/hpf} (Normal) Range: 0 - 10 RBC 3-10 {/hpf} (Abnormal) Range: 0 - 2 WBC 0-5 {/hpf} (Normal) Range: 0 - 5 :56 VITAMIN B-12 (CYANOCOBALAMIN) Comments: PATIENT NOT FASTINGPERFORMED BY: [employer] [facility] Pyakqu3604 [address] [employer] [id number] (33482) Vitamin B12 451 pg/mL (Normal) Range: 232-1245 Comments: Please note reference interval change :56 TSH (26382) Comments: PATIENT NOT FASTINGPERFORMED BY: CB [facility] Jkowqj7[address] [employer] [place] [id number] TSH 2.910 {uIU/mL} (Normal) Range: 0.450-4.500 :56 URINALYSIS, W/ MICRO (27188) Comments: PATIENT NOT FASTINGPERFORMED BY: [employer] [facility] Qgxcpt5309 [address] [facility] [id number] Microscopic Examination See below: (Normal) Comments: Microscopic was indicated and was performed. Nitrite, Urine Negative (Normal) Urobilinogen,Semi-Qn 0.2 mg/dL (Normal) Range: 0.2-1.0 Bilirubin Negative (Normal) Occult Blood 1+ (Abnormal) Ketones Negative (Normal) Glucose Negative (Normal) Protein Negative (Normal) WBC Esterase Trace (Abnormal) Appearance Clear (Normal) Urine-Color Yellow (Normal) pH 7.0 (Normal) Range: 5.0-7.5 Specific [place] 1.017 (Normal) Range: 1.005-1.030 18-Nih-380221:56 MICROALBUMIN: CREATININE RATIO Comments: PATIENT NOT FASTINGPERFORMED BY: [employer]70 [facility] [id number] (97012) AND (70847) Microalb/Creat Ratio 7.4 {mg/g_creat} (Normal) Range: 0.0-30.0 Microalbumin, Urine 5.0 ug/mL (Normal) Creatinine, Urine 68.0 mg/dL (Normal) :56 METABOLIC PANEL, COMPREHENSIVE Comments: PATIENT NOT FASTINGPERFORMED BY: [employer]70 [facility] [id number] (53505) ALT (SGPT) 18 [iU]/L (Normal) Range: 0-32 [...] Glucose, Serum 87 mg/dL (Normal) Range: 65-99 42-Zlw-962769:56 CBC W/AUTO DIFF WBC (85812) Comments: PATIENT NOT FASTINGPERFORMED BY: [facility] Uvdzqp0454 [facility] [id number] Immature Grans (Abs) 0.0 {x10E3/uL} (Normal) Range: [...] 3.4-10.8 :38 Prothrombin Time w/INR Comments: [facility] [address] [place], [address] INR 2.0 (Normal) PROTIME 22.0 s (Abnormal) Range: 11.7-14.9 52-Hrd-856121:21 Prothrombin Time w/INR Comments: [facility] [address] [place], [address] INR 2.5 (Normal) PROTIME 26.0 s (Abnormal) Range: 11.7-14.9 :12 Lipid Profile Comments: Order Date: 12/04/16Order Info: [id number] - *Hepatic Function PanelOrder Info: [id number] - *Lipid Profile CC PCPComments: 12 hours fasting, may have water.[facility] [address] [place], [address] VLDL 21 mg/dL (Normal) Range: 5-40 LDL [...] Info: 0788-1 - *Hepatic Function PanelOrder Info: [id number] - *Lipid Profile CC PCPComments: 12 hours fasting, may have water.[facility] [address] [place], [place], [address] D BILI 0.09 mg/dL (Normal) Range: 0.00-0.30 T BILI 0.50 mg/dL (Normal) Range: 0.20-1.00 ALT 21 U/L (Normal) Range: 12-78 ALK P 78 U/L (Normal) Range: 45-117 AST 16 U/L (Normal) Range: 15-37 GLOB 3.1 g/dL (Normal) Range: 2.2-4.2 ALB 3.5 g/dL (Normal) Range: 3.4-5.0 Comments: Please note revised Albumin AND Globulin reference rangeeffective 2017. T PROT 6.6 g/dL (Normal) Range: 6.4-8.2 81-Mgi-543606:39 Prothrombin Time w/INR Comments: [facility] [address] [place], [place], [address] INR 2.4 (Normal) PROTIME 24.9 s (Abnormal) Range: 11.7-14.9 :43 Prothrombin Time w/INR Comments: [facility] [address] [place], [place], [address] INR 2.2 (Normal) PROTIME 23.9 s (Abnormal) Range: 11.7-14.9 :22 CBC W/Diff, Automated Comments: [place] [address] [address] [place], [place], [address] ; OV 9/5 Absolute Lymph 2.11 {X10_3/ul} [...] 4.4-11.0 09-Apr-20179:22 Comprehensive Metabolic Profil Comments: [facility] Il[address]sz[address] [place], [place], [address] GAP 7 (Normal) Range: 5-15 CO2 33.0 [...] :22 Thyroid Stim Hormone (TSH) Comments: [facility] Fykzyhdilu6496 [facility] [address] [place], [place], [address] TSH 3.52 {uIU/mL} (Normal) Range: 0.358-3.74 85-Zgp-209517:37 Prothrombin Time w/INR Comments: [facility] [address]xy[address] [place], [place], [phone](612) INR 2.1 (Normal) PROTIME 22.4 s (Abnormal) Range: 11.7-14.9 66-Mlc-927396:12 Prothrombin Time w/INR Comments: PT ORDER IS AND T4 IS [facility] Rxrxdcgdiv4824 [address] [place], [place], [phone](949) INR 2.1 (Normal) PROTIME 23.1 s (Abnormal) Range: 11.7-14.9 61-Fnf-005348:11 T4 Total, Thyroxin Comments: Order Date: 02/19/17Order Info: [id number] - *T4 (Total)Comments: Reason:Order Info: [id number] - *[facility] [address]uzlgo[address] [place], [place], [address] T4 THYROXIN 7.2 ug/dL (Normal) Range: 4.8-13.9 12-Sdb-080095:11 Thyroid Stim Hormone (TSH) Comments: Order Date: 02/19/17Order Info: [id number] - *T4 (Total)Comments: Reason:Order Info: [id number] - *[facility] [address] [place], [address] TSH 1.56 {uIU/mL} (Normal) Range: 0.358-3.74 :37 Prothrombin Time w/INR Comments: [facility] [address] [place], [address] INR 1.9 (Normal) PROTIME 21.4 s (Abnormal) Range: 11.7-14.9 9-Nnt-019281:50 Prothrombin Time w/INR Comments: [facility] [address]zes[address] [place], [address] INR 2.0 (Normal) PROTIME 21.6 s (Abnormal) Range: 11.7-14.9 17-Sqw-425856:37 Prothrombin Time w/INR Comments: [facility] [address]zg[address] [place], [phone](500) INR 2.5 (Normal) PROTIME 25.6 s (Abnormal) Range: 11.7-14.9 29-Zkt-722474:18 Prothrombin Time w/INR Comments: [facility] [address]jlfez[address] [place], [address] INR 2.1 (Normal) PROTIME 22.5 s (Abnormal) Range: 11.7-14.9 22-Yab-518435:17 Lipid Profile Comments: Order Date: 06/02/16Order Info: [id number]- [id number] - *Hepatic Function PanelDR.TOVA BROWNECALAIS REGIONAL HOSPITALMARIMAR LIPID LIVEROrder Date: 06/02/16Order Info: [id number] - *Lipid Profile CC PCPComments: 12 hours fasting, may have donnared hughesStaceyMercy Health St. [facility] [address] [place], [address] VLDL 31 mg/dL (Normal) Range: 5-40 LDL [...] 200-240 mg/dL Borderline >240 mg/dL High Risk 94-Lrj-266281:17 Liver Profile Comments: Order Date: 06/02/16Order Info: [id number]- 1 - *Hepatic Function PanelDR.TOVA PTMICHELLE LIPID LIVEROrder Date: 06/02/16Order Info: [id number] - *Lipid Profile CC PCPComments: 12 hours fasting, may have mary lalaMer[facility] [address]lygts[address] [place], [place], [address] D BILI 0.09 mg/dL (Normal) Range: 0.00-0.30 T BILI 0.50 mg/dL (Normal) Range: 0.20-1.00 ALT 28 U/L (Normal) Range: 12-78 ALK P 93 U/L (Normal) Range: 45-117 AST 21 U/L (Normal) Range: 15-37 GLOB 3.4 g/dL (Normal) Range: 2.3-3.5 ALB 4.0 g/dL (Normal) Range: 3.4-5.0 T PROT 7.4 g/dL (Normal) Range: 6.4-8.2 0-Tja-393840:32 Prothrombin Time w/INR Comments: [facility] [address] [place], [place], [address] ; [facility] INR 1.8 (Normal) PROTIME 20.2 s (Abnormal) Range: 11.7-14.9 06-Omf-381628:09 Prothrombin Time w/INR Comments: [facility] J[address]jtngxra[address] [place], [place], [address] ; another doc INR 2.1 (Normal) PROTIME 23.1 s (Abnormal) Range: 11.7-14.9 16-Dep-084440:10 Metabolic Panel, Comprehensive Comments: today; PATIENT NOT FASTINGPERFORMED BY: [employer] Cwnuyk[address]36 [address] [place] [id number] (76208) ALT (SGPT) 16 [iU]/L (Normal) Range: 0-32 [...] Glucose, Serum 89 mg/dL (Normal) Range: 65-99 83-Hmx-725084:26 Prothrombin Time w/INR Comments: [facility] [address]nevtfyo[address] [place], [address] INR 2.2 (Normal) PROTIME 23.7 s (Abnormal) Range: 11.7-14.9 34-Cip-222091:52 CBC-Complete Blood Cnt No Diff Comments: [facility] [address] [place], [address] ; sibilia MPV 10.8 fL [...] Range: 4.4-11.0 :58 Prothrombin Time w/INR Comments: [facility] Wroydicgwq25[address] [place], [address] INR 2.0 (Normal) PROTIME 22.4 s (Abnormal) Range: 11.7-14.9 42-Lkr-525990:49 Prothrombin Time w/INR Comments: [facility] [address] [place], [address] INR 2.0 (Normal) PROTIME 22.3 s (Abnormal) Range: 11.7-14.9 30-Jks-856024:54 CBC WITH MANUAL DIFF (93428) Comments: PATIENT NOT FASTINGPERFORMED BY: [facility]CoM[facility] Psychiatric HospitalIdhuux6708 [facility] [id number] Immature Grans (Abs) 0.0 {x10E3/uL} (Normal) Range: [...] 3.77-5.28 WBC 6.2 {x10E3/uL} (Normal) Range: 3.4-10.8 40-Smf-541652:54 Metabolic Panel, Comprehensive Comments: PATIENT NOT FASTINGPERFORMED BY: [facility]CoM[facility]view Psych[facility] HospitalYrhoko9466 [facility] [id number] (10534) ALT (SGPT) 18 [iU]/L (Normal) Range: 0-32 [...] Glucose, Serum 86 mg/dL (Normal) Range: 65-99 05-Mzp-434730:54 TSH (29775) Comments: PATIENT NOT FASTINGPERFORMED BY: [facility] Nlhyac8870 [facility] [id number] TSH 2.890 {uIU/mL} (Normal) Range: 0.450-4.500 32-Zrs-207596:23 Prothrombin Time w/INR Comments: [facility] [address] [place], [address] ; managed by cardio INR 2.6 (Normal) PROTIME 27.4 s (Abnormal) Range: 11.7-14.9 28-Qru-14849:54 Prothrombin Time w/INR Comments: [facility] [address] [place], [address] ; another doc INR 2.0 (Normal) PROTIME 22.3 s (Abnormal) Range: 11.7-14.9 :53 Lipid Profile Comments: Order Date: 05/22/16 Order #: [id number] L[address]jnhcicv75[address] [place], [address] VLDL 21 mg/dL (Normal) Range: 5-40 LDL [...] Profile Comments: Order Date: 05/22/16 Order #: [id number] [facility] [address] Pfsifbjqhv6630 [address] [place], [place], [address] D BILI < 0.05 mg/dL (Normal) Range: [...] 6.4-8.2 :09 Prothrombin Time w/INR Comments: [facility] Xbdjkhcbus35[address] [place], [address] INR 2.5 (Normal) PROTIME 26.3 s (Abnormal) Range: 11.7-14.9 :59 Prothrombin Time w/INR Comments: [facility] [address] [place], [address] ; managed by cardio INR 2.9 (Normal) PROTIME 29.3 s (Abnormal) Range: 11.7-14.9 :05 Prothrombin Time w/INR Comments: [facility] [address] [place], [address] INR 2.0 (Normal) PROTIME 22.3 s (Abnormal) Range: 11.7-14.9 :11 Prothrombin Time w/INR Comments: [facility] J[address]tt[address] [place], [address] INR 2.7 (Normal) Comments: ADDENDA: managed by cardio PROTIME 27.7 s (Abnormal) Range: 11.7-14.9 :14 Prothrombin Time w/INR Comments: [facility] K[address] [place], [address] ; managed by Tova INR 2.7 (Normal) PROTIME 28.1 s (Abnormal) Range: 11.7-14.9 :45 Prothrombin Time w/INR Comments: [facility] [address] [place], [place], [address] ; managed by cardio INR 3.1 (Normal) PROTIME 31.3 s (Abnormal) Range: 11.7-14.9 :27 Prothrombin Time w/INR Comments: [facility] [address] [place], [address] ; managed by cardio INR 3.1 (Normal) PROTIME 31.1 s (Abnormal) Range: 11.7-14.9 :22 Prothrombin Time w/INR Comments: [facility] Y[address] [place], [address] INR 2.6 (Normal) PROTIME 27.4 s (Abnormal) Range: 11.7-14.9 :08 Prothrombin Time w/INR Comments: [facility] Gbnozmmqie[address] [place], [place], [address] ; managed with Dr. paz INR 4.1 (Abnormal) Comments: CRITICAL VALUE REPEATED AND VERIFIED. [facility]01/16/16 1251 Elza Hinojosa.RESULTS READ BACK BY SAME . PROTIME 38.2 s (Abnormal) Range: 11.7-14.9 66-Ngo-096409:11 Microscopic Examination Comments: PATIENT WAS FASTINGPERFORMED BY: [facility] [id number] Bacteria None seen (Normal) Mucus Threads Present (Normal) Epithelial Cells (non renal) 0-10 {/hpf} (Normal) Range: 0 - 10 RBC 11-30 {/hpf} (Abnormal) Range: 0 - 2 WBC 0-5 {/hpf} (Normal) Range: 0 - 5 15-Emb-910785:11 MICROALBUMIN: CREATININE RATIO Comments: PATIENT WAS FASTINGPERFORMED BY: [employer]70 [facility] [id number] (60286) AND (21721) Microalb/Creat Ratio 11.4 {mg/g_creat} (Normal) Range: 0.0-30.0 Microalbumin, Urine 12.1 ug/mL (Normal) Comments: Please note reference interval change Creatinine, Urine 106.3 mg/dL (Normal) Comments: Please note reference interval change 99-Sqx-880438:11 URINALYSIS (38031) Comments: PATIENT WAS FASTINGPERFORMED BY: [employer] [facility] [id number] Microscopic Examination See below: (Normal) Comments: Microscopic was indicated and was performed. Nitrite, Urine Negative (Normal) Urobilinogen,Semi-Qn 0.2 mg/dL (Normal) Range: 0.2-1.0 Bilirubin Negative (Normal) Occult Blood 2+ (Abnormal) Ketones Negative (Normal) Glucose Negative (Normal) Protein Negative (Normal) WBC Esterase Negative (Normal) Appearance Clear (Normal) Urine-Color Yellow (Normal) pH 7.0 (Normal) Range: 5.0-7.5 Specific [place] 1.018 (Normal) Range: 1.005-1.030 20-Vjh-019295:11 Metabolic Panel, Comments: PATIENT WAS FASTINGPERFORMED BY: [employer]70 [facility] [id number] Information: [id number] Comprehensive (53904) ALT (SGPT) 14 [iU]/L (Normal) Range: 0-32 [...] Glucose, Serum 91 mg/dL (Normal) Range: 65-99 98-Waz-120091:11 TSH (22467) Comments: PATIENT WAS FASTINGPERFORMED BY: [facility] HospitalJzvpgu7719 [facility] [id number] TSH 2.260 {uIU/mL} (Normal) Range: 0.450-4.500 :17 Prothrombin Time w/INR Comments: [facility] Xuvtzcxzko[address] [place], [address] INR 2.8 (Normal) PROTIME 28.4 s (Abnormal) Range: 11.7-14.9 :40 Lipid Profile Comments: [facility] Qjypjjbgnd7[address] [place], [address] VLDL 22 mg/dL (Normal) Range: 5-40 LDL [...] High Risk :40 Liver Profile Comments: [facility] Yplzhmpkwt6736 [place], [address] D BILI 0.10 mg/dL (Normal) Range: 0.00-0.30 T BILI 0.60 mg/dL (Normal) Range: 0.20-1.00 ALT 26 U/L (Normal) Range: 12-78 ALK P 86 U/L (Normal) Range: 50-136 AST 20 U/L (Normal) Range: 15-37 GLOB 3.4 g/dL (Normal) Range: 2.3-3.5 ALB 3.9 g/dL (Normal) Range: 3.4-5.0 T PROT 7.3 g/dL (Normal) Range: 6.4-8.2 :26 Prothrombin Time w/INR Comments: [facility] Fidexhpdiw[address] [place], [address] INR 2.6 (Normal) Comments: ADDENDA: handled by cardio PROTIME 27.3 s (Abnormal) Range: 11.7-14.9 :40 Prothrombin Time w/INR Comments: [facility] K[address]bur[address] [place], [address] INR 2.4 (Normal) PROTIME 26.4 s (Abnormal) Range: 11.7-14.9 2-Sdg-664565:03 Prothrombin Time w/INR Comments: [facility] R[address] [place], [address] ; per pop up in EMR cardio manages INR INR 2.2 (Normal) PROTIME 24.5 s (Abnormal) Range: 11.7-14.9 :51 Prothrombin Time w/INR Comments: [facility] Snraalqios[address] [place], [address] INR 1.6 (Normal) PROTIME 19.0 s (Abnormal) Range: 11.7-14.9 Comments: ADDENDA: managed by cardio :33 Prothrombin Time w/INR Comments: [facility] W[address]wkjdknm[address] [place], [address] ; handled by cardio INR 2.1 (Normal) PROTIME 24.0 s (Abnormal) Range: 11.7-14.9 64-Mhi-637576:02 Prothrombin Time w/INR Comments: [facility] V[address]jlgsjhh[address] [place], [address] INR 2.2 (Normal) PROTIME 24.1 s (Abnormal) Range: 11.7-14.9 75-Ltw-496583:37 Prothrombin Time w/INR Comments: [facility] [address] [place], [address] INR 2.5 (Normal) PROTIME 26.7 s (Abnormal) Range: 11.7-14.9 :44 Prothrombin Time w/INR Comments: [facility] Mikgdmhogr[address] [place], [address] INR 2.2 (Normal) PROTIME 24.6 s (Abnormal) Range: 11.7-14.9 71-Ryj-083628:15 Prothrombin Time w/INR Comments: [facility] [address]lqvoiajnj[address] [place], [address] INR 1.6 (Normal) PROTIME 19.4 s (Abnormal) Range: 11.7-14.9 :36 Prothrombin Time w/INR Comments: [facility] I[address] [place], [address] INR 1.2 (Normal) PROTIME 15.3 s (Abnormal) Range: 11.7-14.9 :02 Prothrombin Time w/INR Comments: [facility] Y[address]vrswgcb[address] [place], [address] INR 2.7 (Normal) PROTIME 29.0 s (Abnormal) Range: 11.7-14.9 :47 Lipid Profile Comments: [facility] Xshfdtaran2526 [place], [address] VLDL 20 mg/dL (Normal) Range: 5-40 [...] High Risk :47 Liver Profile Comments: [facility] Sruyodhzpv17[address] [place], [address] D BILI 0.09 mg/dL (Normal) Range: 0.00-0.30 T BILI 0.40 mg/dL (Normal) Range: 0.20-1.00 ALT 26 U/L (Normal) Range: 12-78 ALK P 86 U/L (Normal) Range: 50-136 AST 24 U/L (Normal) Range: 15-37 GLOB 3.3 g/dL (Normal) Range: 2.3-3.5 ALB 4.0 g/dL (Normal) Range: 3.4-5.0 T PROT 7.3 g/dL (Normal) Range: 6.4-8.2 4-Afv-908320:11 CBC, Platelets & Auto Diff Comments: PATIENT NOT FASTINGPERFORMED BY: [facility] Dqphru5072 [facility] [id number] Information: [id number] (60799) Immature Grans (Abs) 0.0 {x10E3/uL} (Normal) Range: [...] 3.77-5.28 WBC 6.2 {x10E3/uL} (Normal) Range: 3.4-10.8 3-Jcd-416025:11 CALCIFEDIOL (34131) Comments: PATIENT NOT FASTINGPERFORMED BY: [facility] HospitalVwhbnb6548 [facility] [id number] Vitamin D, 25-Hydroxy 38.9 ng/mL (Normal) Range: 30.0-100.0 Comments: Vitamin D deficiency has been defined by the [place] of[place]icine and an Endocrine Society practice guideline as alevel of serum 25-OH vitamin D less than 20 ng/mL (1,2).The Endocrine Society went on to further define vitamin Dinsufficiency as a level between 21 and 29 ng/mL (2).1. IOM ([place] of [employer]). 2010. Dietary reference intakes for calcium and D. [place]: The National Academies Press.2. Roberto MF, Brody OCHOA, Maribell CADENA, et al. Evaluation, treatment, and prevention of vitamin D deficiency: an Endocrine Society clinical practice guideline. JCEM. 2010; 96(7):1911-30. 4-Ndp-746699:11 VITAMIN B12 AND FOLATES Comments: PATIENT NOT FASTINGPERFORMED BY: [facility]apT[facility] CorporationQivolh7556 [facility] [id number] (41726) Folate (Folic Acid), Serum 10.4 ng/mL (Normal) Comments: A serum folate concentration of less than 3.1 ng/mL isconsidered to represent clinical deficiency. Vitamin B12 1651 pg/mL (Abnormal) Range: 211-946 3-Xcb-852677:11 Metabolic Panel, Comprehensive Comments: PATIENT NOT FASTINGPERFORMED BY: [facility] HospitalJqhdkz1357 [facility] [id number] (64789) ALT (SGPT) 15 [iU]/L (Normal) Range: 0-32 [...] 65-99 09-May-20159:53 Prothrombin Time w/INR Comments: [facility] [id number] [place] [address], [id number] INR 1.9 (Normal) PROTIME 22.0 s (Abnormal) Range: 11.7-14.9 [id number] Prothrombin Time w/INR Comments: Test performed at:[facility] [id number] [place] [id number] INR 1.3 (Normal) PROTIME 16.3 s (Abnormal) Range: 11.7-14.9 83-Nwm-[id number]:03 Prothrombin Time w/INR Comments: Test performed at:[facility] [id number] [place] [id number] INR 1.7 (Normal) PROTIME 20.4 s (Abnormal) Range: 11.7-14.9 [id number]-[id number]:26 Prothrombin Time w/INR Comments: Test performed at:[facility] [id number] [place] [id number] INR 1.2 (Normal) Comments: ADDENDA: managed by dr paz PROTIME 15.8 s (Abnormal) Range: 11.7-14.9 07-Wfo-379610:28 Prothrombin Time w/INR Comments: Test performed at:[facility] [address] [place] [address] INR 1.2 (Normal) PROTIME 15.8 s (Abnormal) Range: 11.7-14.9 :54 Prothrombin Time w/INR Comments: Test performed at:[facility] [id number] [place] [address] INR 2.5 (Normal) PROTIME 27.3 s (Abnormal) Range: 11.7-14.9 7-Tmq-[id number]:16 Prothrombin Time w/INR Comments: Test performed at:[facility] [address] [place] [address] INR 2.0 (Normal) PROTIME 23.2 s (Abnormal) Range: 11.7-14.9 01-Urm-358654:29 Prothrombin Time w/INR Comments: Test performed at:[facility] [address] [place] [address] INR 2.8 (Normal) PROTIME 29.3 s (Abnormal) Range: 11.7-14.9 39-Fqf-510470:06 Prothrombin Time w/INR Comments: Test performed at:[facility] [address] [place] [address] ; Dr Bella manages INR 2.1 (Normal) PROTIME 24.0 s (Abnormal) Range: 11.7-14.9 :45 Prothrombin Time w/INR Comments: Test performed at:[facility] [address] [place] [address] ; ordered by another INR 1.3 (Normal) PROTIME 16.5 s (Abnormal) Range: 11.7-14.9 :00 Prothrombin Time w/INR Comments: Test performed at:[facility] [address] [place] [address] INR 0.9 (Normal) PROTIME 12.7 s (Normal) Range: 11.7-14.9 6-Aei-836384:05 Vitamin B12 and Folate Comments: PATIENT NOT FASTINGPERFORMED BY: [facility]Co[facility] Psych[facility] HospitalItkvfd5664 [facility] [id number] Information: [id number] Folate (Folic Acid), 7.8 ng/mL (Normal) Comments: A serum folate concentration of less than 3.1 ng/mL isconsidered to represent clinical deficiency. Serum Vitamin B12 1883 pg/mL Range: 211-946 (Abnormal) 1-Sfc-844515: Vitamin D, 42.8 ng/mL (Normal) Comments: PATIENT NOT FASTINGPERFORMED BY: [facility]Co[facility] Psych[facility] HospitalNsmnas9033 [facility] [id number] 05 25-Hydroxy Range: 30.0-100.0 Comments: Vitamin D deficiency has been defined by the [place] ofMedicine and an Endocrine Society practice guideline as alevel of serum 25-OH vitamin D less than 20 ng/mL (1,2).The Endocrine Society went on to further define vitamin Dinsufficiency as a level between 21 and 29 ng/mL (2).1. IOM ([place] of Medicine). 2010. Dietary reference intakes for calcium and D. [place]: The National Academies Press.2. Roberto MF, Brody NC, Maribell CADENA, et al. Evaluation, treatment, and prevention of vitamin D deficiency: an Endocrine Society clinical practice guideline. JCEM. 2010; 96(7):1911-30. 48-Loe-411567:04 CBC W/Diff, Automated Comments: Test performed at:[facility] [address] [place] [address] Absolute Lymph 2.41 {X10_3/ul} (Normal) [...] 4.2-5.4 WBC 6.5 K/mm3 (Normal) Range: 4.4-11.0 7-Xkm-400342:26 Basic Metabolic Profile (BMP) Comments: Test performed at:[facility] [address] [place] [address] GAP 4 (Abnormal) Range: 5-15 CO2 33.0 mmol/L (Abnormal) Range: 21.0-32.0 CL 103 mmol/L (Normal) Range: 98-107 K 4.8 mmol/L (Normal) Range: 3.5-5.1 NA 140 mmol/L (Normal) Range: 136-145 CA 8.8 mg/dL (Normal) Range: 8.5-10.1 BUN/CRE 25.8 {RATIO} (Abnormal) Range: 10-20 CREAT,SERUM 1.2 mg/dL (Abnormal) Range: 0.6-1.0 BUN 31 mg/dL (Abnormal) Range: 7-18 GLU 108 mg/dL (Normal) Range: 70-110 82-Roe-842045:45 Basic Metabolic Profile (BMP) Comments: Test performed at:[facility] [address] [place], [place] [address](933) GAP 4 (Abnormal) Range: 5-15 CO2 28.0 mmol/L (Normal) Range: 21.0-32.0 CL 106 mmol/L (Normal) Range: 98-107 K 4.3 mmol/L (Normal) Range: 3.5-5.1 NA 138 mmol/L (Normal) Range: 136-145 CA 8.8 mg/dL (Normal) Range: 8.5-10.1 BUN/CRE 26.0 {RATIO} (Abnormal) Range: 10-20 CREAT,SERUM 1.0 mg/dL (Normal) Range: 0.6-1.0 BUN 26 mg/dL (Abnormal) Range: 7-18 GLU 93 mg/dL (Normal) Range: 70-110 72-Gbx-455889:45 CBC W/Diff, Automated Comments: Test performed at:[facility] [address] [place] [address] Absolute Lymph 2.60 {X10_3/ul} (Normal) [...] hemolyzed. Results may be affected.Test performed at:[facility] [address] [place], [place] [address] VLDL 19 mg/dL (Normal) Range: 5-40 LDL [...] 200-240 mg/dL Borderline >240 mg/dL High Risk 68-Bpi-448486:07 Liver Profile Comments: Specimen slightly hemolyzed. Results may be affected.Test performed at:[facility] [address] [place], [place] [address] D BILI < 0.05 mg/dL (Normal) Range: [...] CHOL 226 mg/dL (Abnormal) Comments: <200 mg/dL Axgplvfbj298-521 mg/dL Borderline>240 mg/dL High Risk :47 LIVER [...] :47 TSH 3.05 {uIU/mL} (Normal) Range: 0.358-3.74 87-Wpw-431618:00 LORNA CULTURE-OTHER (48277) Comments: PATIENT NOT FASTINGPERFORMED BY: [facility]Co[facility] HospitalCjzuvk7004 [facility] [id number] Information: SRC:THRT [id number] Result 1 RRF (Normal) Comments: Routine respiratory jesus Upper Respiratory Culture Final report (Normal) 78-Hrr-57582:21 Rapid Strep Test, Office (44223) Rapid Strep Test, Office Negative (Normal) 41-Mwo-71704:00 BILAT SCRN DIGITAL & CAD Radiology Report [...] Jones M.D.January 04, 2013 at 10:41:52 AM [id number] Signed GP/GP If you are the referring physician and would like to consult with theradiologist who provided this interpretation, please contact Ne Huang at [phone]. If this radiologist is unavailable, youwill be directed to another radiologist to assist. If you are a patient with a question regarding this report, pleasecontactyour referring physician directly. Professional Interpretation Provided By: [employer], Phone , These documents contain legally protected [...] destructionofthese documents. Dictated on 01/04/13 1041 by Kalpana Jones MDranscribed on 01/04/13 1042 by ITS IMPORTSign by Henry Jones MD on 01/04/13 1044 Sign by: Henry Jones MD 2-Boi-010286:19 Hepatic Function Panel Comments: PATIENT WAS FASTINGPERFORMED BY: [facility]6370 [facility] [id number] Information: [id number] (7) ALT (SGPT) 23 [iU]/L (Normal) Range: 0-32 AST (SGOT) 21 [iU]/L (Normal) Range: 0-40 Alkaline Phosphatase, S 74 [iU]/L (Normal) Range: 25-165 Bilirubin, Direct 0.10 mg/dL Range: 0.00-0.40 (Normal) Albumin, Serum 4.3 g/dL (Normal) Range: 3.5-4.8 Bilirubin, Total 0.3 mg/dL (Normal) Range: 0.0-1.2 Protein, Total, Serum 6.7 g/dL (Normal) Range: 6.0-8.5 Written Authorization WAR (Normal) Comments: PATIENT WAS FASTINGPERFORMED BY: [facility]apM[facility] Psych[facility] HospitalUairij3304 [facility] [id number] :19 Comments: Written Authorization Received.Authorization received from DR BRO 17-19-5733Hxfdyh by Rachelle Porter :19 Metabolic Panel, Comprehensive Comments: PATIENT WAS FASTINGPERFORMED BY: [facility]apM[facility] Psych[facility] HospitalAwydeb8757 [facility] [id number] (32658) ALT (SGPT) 22 [iU]/L (Normal) Range: 0-32 [...] Glucose, Serum 89 mg/dL (Normal) Range: 65-99 0-Bra-927431:19 CBC with manual diff Comments: PATIENT WAS FASTINGPERFORMED BY: [facility] Skaozl2713 [facility] [id number] Information: [id number] (55604) Immature Grans (Abs) 0.0 {x10E3/uL} (Normal) Range: [...] 3.77-5.28 WBC 4.6 {x10E3/uL} (Normal) Range: 4.0-10.5 9-Wcq-706790:19 Lipid Panel (53601) Comments: PATIENT WAS FASTINGPERFORMED BY: [employer] [facility] [id number] LDL/HDL Ratio 1.3 {ratio_units} (Normal) Range: 0.0-3.2 Cholesterol, Total 153 mg/dL (Normal) Range: 100-199 HDL Cholesterol 60 mg/dL (Normal) Comments: According to ATP-III Guidelines, HDL-C >59 mg/dL is considered anegative risk factor for CHD. LDL Cholesterol Calc 80 mg/dL (Normal) Range: 0-99 Triglycerides 65 mg/dL (Normal) Range: 0-149 VLDL Cholesterol Hector 13 mg/dL (Normal) Range: 5-40 9-Ufl-193525:19 TSH (20296) Comments: PATIENT WAS FASTINGPERFORMED BY: [employer]70 [facility] [id number] TSH 2.650 {uIU/mL} (Normal) Range: 0.450-4.500 90-Gak-367686:14 Urinalysis, Office (55520) UA - BILIRUBIN Negative (Normal) UA - BLOOD Hemolyzed Small (Normal) UA - GLUCOSE Negative (Normal) UA - KETONES Negative mg/dL (Normal) UA - LEUKOCYTE ESTERASE Negative (Normal) UA - NITRITE Negative (Normal) UA - PH 7.0 (Normal) UA - PROTEIN Negative mg/dL (Normal) UA - SPECIFIC GRAVITY 1.015 (Normal) URINE UROBILINGN REYNA TIMED Normal mg/dL (Normal) 39-Tdp-110801:10 TSH (THYROID STIMULATING Comments: PATIENT WAS FASTINGPERFORMED BY: [employer] [facility] [id number] HORMONE) (02738) TSH 2.500 {uIU/mL} (Normal) Range: 0.450-4.500 42-Vyg-533809:10 CALCIFEDIOL (22670) Comments: PATIENT WAS FASTINGPERFORMED BY: [employer]6370 [facility] [id number] Vitamin D, 25-Hydroxy 48.1 ng/mL (Normal) Range: 30.0-100.0 Comments: Vitamin D deficiency has been defined by the [place] ofC[facility] Po[facility] Hospitalcine and an Endocrine Society practice guideline as alevel of serum 25-OH vitamin D less than 20 ng/mL (1,2).The Endocrine Society went on to further define vitamin Dinsufficiency as a level between 21 and 29 ng/mL (2).1. IOM ([place] of Medicine). 2010. Dietary reference intakes for calcium and D. [place]: The National Academies Press.2. Roberto MF, Brody OCHOA, Maribell CADENA, et al. Evaluation, treatment, and prevention of vitamin D deficiency: an Endocrine Society clinical practice guideline. JCEM. 2010; 96(7):1911-30. 34-Bby-731481:10 Lipid Panel (95122) Comments: PATIENT WAS FASTINGPERFORMED BY: [employer]6370 [facility] [id number] LDL/HDL Ratio 2.3 {ratio_units} (Normal) Range: 0.0-3.2 LDL Cholesterol Calc 117 mg/dL (Abnormal) Range: 0-99 VLDL Cholesterol Hector 16 mg/dL (Normal) Range: 5-40 HDL Cholesterol 52 mg/dL (Normal) Comments: According to ATP-III Guidelines, HDL-C >59 mg/dL is considered anegative risk factor for CHD. Triglycerides 78 mg/dL (Normal) Range: 0-149 Cholesterol, Total 185 mg/dL (Normal) Range: 100-199 18-Ybd-619099:10 HEPATIC FUNCTION PANEL Comments: PATIENT WAS FASTINGPERFORMED BY: [employer] Dgwvof6880 [facility] [id number] Information: [id number] (78526) ALT (SGPT) 21 [iU]/L (Normal) Range: 0-40 AST (SGOT) 20 [iU]/L (Normal) Range: 0-40 Alkaline Phosphatase, S 75 [iU]/L (Normal) Range: 25-165 Bilirubin, Direct 0.09 mg/dL (Normal) Range: 0.00-0.40 Albumin, Serum 4.0 g/dL (Normal) Range: 3.5-4.8 Bilirubin, Total 0.3 mg/dL (Normal) Range: 0.0-1.2 Protein, Total, Serum 6.5 g/dL (Normal) Range: 6.0-8.5 :41 TSH (84229) Comments: PATIENT NOT FASTINGPERFORMED BY: [address] [id number] Information: [id number] TSH 3.750 {uIU/mL} (Normal) Range: 0.450-4.500 :39 Prothrombin Time (PT) Comments: PERFORMED BY: [address] [id number] Prothrombin Time 39.0 {sec} (Abnormal) Range: 8.7-11.5 INR 3.6 (Abnormal) Range: 0.8-1.2 Comments: Client Requested Flag Reference interval is for non- anticoagulated patients. . Suggested INR therapeutic ra nge for Vitamin K antagonist therapy: Standard Dose (moderate intensity therapeutic range): 2.0 - 3.0 Higher intensity therapeutic range 2.5 - 3.5 :26 PT (PROTHROMBIN TIME) Comments: PATIENT NOT FASTINGPERFORMED BY: [place] [address] [facility] [id number] Information: [id number] CC:[id number] (13864) Prothrombin Time 54.3 {sec} (Abnormal) Range: 8.7-11.5 [...] (Activated Partial Comments: PATIENT NOT FASTINGPERFORMED BY: [place] [address]70 [facility] [id number] Thromboplastin Time) (12154) aPTT 39 {sec} (Abnormal) Range: 24-33 Comments: This test has not been validated for monitoring unfractionated heparintherapy. aPTT-based therapeutic ranges for unfractionated heparintherapy have not been established. For general guidelines onHeparin monitoring, refer to the [facility] Directory of Services. :51 PT (Prothrobim Time) Comments: PATIENT NOT FASTINGPERFORMED BY: [place] [address]28[address] [facility] [id number] Information: [id number] CC:[id number] (81041) Prothrombin Time 26.1 {sec} (Abnormal) Range: 8.7-11.5 INR 2.4 (Abnormal) Range: 0.8-1.2 Comments: Reference interval is for non-anticoagulated patients. . Suggested INR therapeutic range for Vitamin K anta gonist therapy: Standard Dose (moderate intensity therapeutic range): 2.0 - 3.0 Higher intensity therapeutic range 2.5 - 3.5 :43 HEPATIC FUNCTION PANEL Comments: PATIENT NOT FASTINGPERFORMED BY: [facility]6370 [facility] [id number] Information: [id number] (62448) ALT (SGPT) 25 [iU]/L (Normal) Range: 0-40 AST (SGOT) 19 [iU]/L (Normal) Range: 0-40 Alkaline Phosphatase, S 73 [iU]/L (Normal) Range: 25-165 Albumin, Serum 4.4 g/dL (Normal) Range: 3.5-4.8 Bilirubin, Direct 0.09 mg/dL (Normal) Range: 0.00-0.40 Bilirubin, Total 0.3 mg/dL (Normal) Range: 0.0-1.2 Protein, Total, Serum 6.4 g/dL (Normal) Range: 6.0-8.5 :18 Lipid Panel (48832) Comments: PATIENT NOT FASTINGPERFORMED BY: [employer] Acfjif2034 [facility] [id number] LDL/HDL Ratio 1.3 {ratio_units} (Normal) Range: 0.0-3.2 [...] FUNCTION PANEL Comments: PATIENT NOT FASTINGPERFORMED BY: [employer]6370 [facility] NetworksLifeCare [facility] [id number] Information: [id number] (00909) ALT (SGPT) 60 [iU]/L (Abnormal) Range: 0-40 Alkaline Phosphatase, S 66 [iU]/L (Normal) Range: 25-165 AST (SGOT) 43 [iU]/L (Abnormal) Range: 0-40 Albumin, Serum 4.3 g/dL (Normal) Range: 3.5-4.8 Bilirubin, Direct 0.10 mg/dL (Normal) Range: 0.00-0.40 Bilirubin, Total 0.3 mg/dL (Normal) Range: 0.0-1.2 Protein, Total, Serum 6.7 g/dL (Normal) Range: 6.0-8.5 :18 CALCIFEDIOL (72351) Comments: PATIENT NOT FASTINGPERFORMED BY: [employer] Iczlwc1216 [facility] [id number] Vitamin D, 25-Hydroxy 57.3 ng/mL (Normal) Range: 32.0-100.0 Comments: Recent studies consider the lower limit of 32.0 ng/mL to be athreshold for optimal health.Baljit HOWELL. J Nutr. 2004;135(2):317-22. 4-Xtn-581797:49 Urinalysis, Office (77910) UA - BILIRUBIN Negative (Normal) UA - BLOOD Hemolyzed Moderate (Normal) UA - GLUCOSE Negative (Normal) UA - KETONES Negative mg/dL (Normal) UA - LEUKOCYTE ESTERASE Negative (Normal) UA - NITRITE Negative (Normal) UA - PH 7.5 (Normal) UA - PROTEIN Negative mg/dL (Normal) UA - SPECIFIC GRAVITY 1.015 (Normal) URINE UROBILINGN REYNA TIMED Normal mg/dL (Normal) 66-Nkq-907684:38 Urinalysis, Office (32665) UA - BILIRUBIN Negative (Normal) UA - BLOOD Hemolyzed Small (Normal) UA - GLUCOSE Negative (Normal) UA - KETONES Negative mg/dL (Normal) UA - LEUKOCYTE ESTERASE Negative (Normal) UA - NITRITE Negative (Normal) UA - PH 7.5 (Normal) UA - PROTEIN Negative mg/dL (Normal) UA - SPECIFIC GRAVITY 1.015 (Normal) URINE UROBILINGN REYNA TIMED 2 mg/dL (Normal) 38-Apm-67335:47 Metabolic Panel, Basic Comments: PATIENT NOT FASTINGPERFORMED BY: LabCoM[facility] Psychiatric HospitalImzmvl3564 [facility] [id number] Information: [id number] (82444) Calcium, Serum 9.6 mg/dL (Normal) Range: 8.6-10.2 [...] CULTURE-REYNA COL Comments: PATIENT NOT FASTINGPERFORMED BY: [employer] AsteelLifeCare Hospitals [facility] [id number] Information: SRC:MICHELL [id number] COUNT (74927) Result 1 NG36 (Normal) Comments: No growth in 36 - 48 hours. Urine Culture,Comprehensive Final report (Normal) :29 Urinalysis, Office (33910) UA - BILIRUBIN Negative (Normal) UA - BLOOD Non Hemolyzed Moderate (Normal) UA - GLUCOSE Negative (Normal) UA - KETONES Negative mg/dL (Normal) UA - LEUKOCYTE ESTERASE Trace (Normal) UA - NITRITE Negative (Normal) UA - PH 6.0 (Normal) UA - PROTEIN Negative mg/dL (Normal) UA - SPECIFIC GRAVITY 1.020 (Normal) URINE UROBILINGN REYNA TIMED Normal mg/dL (Normal) 65-Ekg-545714:44 Microscopic Examination Comments: PATIENT WAS FASTINGPERFORMED BY: [facility] [employer] [facility] Kleufz2954 [facility] [id number] Bacteria Few (Normal) Mucus Threads Present (Normal) Epithelial Cells (non renal) 0-10 {/hpf} (Normal) Range: 0 - 10 RBC 0-3 {/hpf} (Normal) Range: 0 - 3 WBC 0-5 {/hpf} (Normal) Range: 0 - 5 64-Qww-358023:44 CALCIFIDIOL (95039) VIT D 25 Comments: PATIENT WAS FASTINGPERFORMED BY: [employer] Wpvvin7524 [facility] [id number] Vitamin D, 25-Hydroxy 28.6 ng/mL (Abnormal) Range: 32.0-100.0 Comments: Recent studies consider the lower limit of 32.0 ng/mL to be athreshold for optimal health.Baljit HOWELL. J Nutr. 2004;135(2):317-22. 80-Hwn-749998:44 Folate (82134) Comments: PATIENT WAS FASTINGPERFORMED BY: [employer] Wwcdxz2265 [facility] [id number] Folate (Folic Acid), Serum 12.2 ng/mL (Normal) Comments: Indeterminate: 2.2 - 3.0 Deficient: <2.2 80-Keg-276652:44 VITAMIN B-12 (CYANOCOBALAMIN) Comments: PATIENT WAS FASTINGPERFORMED BY: [facility]6370 [facility] [id number] (89871) Vitamin B12 351 pg/mL (Normal) Range: 211-946 13-Qpd-627920:44 SED RATE ERYTHROCYTE (87670) Comments: PATIENT WAS FASTINGPERFORMED BY: LabAsp[facility] Hospital6370 [facility] [id number] Sedimentation Rate-Westergren 2 mm/h (Normal) Range: 0-30 47-Gxm-967750:44 RHEUMATOID FACTOR-QUANT (23809) Comments: PATIENT WAS FASTINGPERFORMED BY: LabMissouri Southern HealthcareDbqoag5074 [facility] Centerin [place] [id number] RA Latex Turbid. 10.5 {IU/mL} (Normal) Range: 0.0-13.9 96-Zfn-925329:44 C-REACTIVE PROTEIN (86637) Comments: PATIENT WAS FASTINGPERFORMED BY: LabMissouri Southern HealthcareAytzmy9878 [facility] [place] [id number] C-Reactive Protein, Quant 0.9 mg/L (Normal) Range: 0.0-4.9 66-Wwn-080996:44 JOANNA (ANTINUCLEAR ANTIBODY) Comments: PATIENT WAS FASTINGPERFORMED BY: LabAsp[facility] Hospital6370 [facility] [id number] (99699) JOANNA Direct Negative (Normal) 84-Qxl-951629:44 LIPID PANEL (77955) Comments: PATIENT WAS FASTINGPERFORMED BY: [facility] Kfafov5267 [facility] [place] [id number] LDL Cholesterol Calc 140 mg/dL (Abnormal) Range: 0-99 LDL/HDL Ratio 1.8 {ratio_units} (Normal) Range: 0.0-3.2 HDL Cholesterol 77 mg/dL (Normal) Comments: According to ATP-III Guidelines, HDL-C >59 mg/dL is considered anegative risk factor for CHD. VLDL Cholesterol Hector 19 mg/dL (Normal) Range: 5-40 Triglycerides 97 mg/dL (Normal) Range: 0-149 Cholesterol, Total 236 mg/dL (Abnormal) Range: 100-199 20-Nlb-904378:44 TSH (58661) Comments: PATIENT WAS FASTINGPERFORMED BY: [facility]6370 [facility] [id number] TSH 1.670 {uIU/mL} (Normal) Range: 0.450-4.500 61-Him-101698:44 URINALYSIS, W/ MICRO (08443) Comments: PATIENT WAS FASTINGPERFORMED BY: [place] 4802870 [facility] [id number] Microscopic Examination See below: (Normal) Bilirubin Negative (Normal) Ketones Negative (Normal) Nitrite, Urine Negative (Normal) Occult Blood 1+ (Abnormal) Urobilinogen,Semi-Qn 0.2 mg/dL (Normal) Range: 0.0-1.9 Glucose Negative (Normal) Protein Negative (Normal) Appearance Clear (Normal) pH 7.0 (Normal) Range: 5.0-7.5 Urine-Color Yellow (Normal) WBC Esterase Negative (Normal) Specific [place] 1.016 (Normal) Range: 1.005-1.030 88-Hen-865709:44 MICROALBUMIN: CREATININE RATIO Comments: PATIENT WAS FASTINGPERFORMED BY: [place] 4802870 [facility] [id number] (20973) AND (80480) Microalb/Creat Ratio 2.8 {mg/g_creat} (Normal) Range: 0.0-30.0 Creatinine, Urine 61.0 mg/dL (Normal) Range: 15.0-278.0 Microalbumin, Urine 1.7 ug/mL (Normal) Range: 0.0-17.0 30-Cgo-461148:44 METABOLIC PANEL, COMPREHENSIVE Comments: PATIENT WAS FASTINGPERFORMED BY: [place] 4802870 [facility] [id number] (07703) ALT (SGPT) 16 [iU]/L (Normal) Range: 0-40 [...] Glucose, Serum 92 mg/dL (Normal) Range: 65-99 55-Iha-673002:44 CBC WITH MANUAL DIFF Comments: PATIENT WAS FASTINGPERFORMED BY: [facility] Jmninr3691 [facility] [id number] Information: [id number] (79536) Immature Grans (Abs) 0.0 {x10E3/uL} (Normal) Range: [...] 3.80-5.10 WBC 6.1 {x10E3/uL} (Normal) Range: 4.0-10.5 09-Iqt-294375:11 [facility] DIGITAL & CAD Radiology Report See Note (Normal) Comments: Exam Number: [id number] MAMMOGRAPHY - BILATERAL SCREENING INDICATION:Routine annual screening [...] of attaching a ResultCode to this exam.ADDENDUM: [id number] HPBI/MDS Reported By: ELEANOR ERNANDEZ M.D. 4-Huh-344192:01 TSH (33407) Comments: PATIENT NOT FASTINGPERFORMED BY: CB [facility] Basiwc1075 [facility] [id number] Information: [id number] TSH 0.474 {uIU/mL} (Normal) Range: 0.450-4.500 16-Apr-20108:21 Thin prep Pap (74526) Comments: of cuff, has had hysterectomy; Source.............VaginalLMP / Prev Treat...HystNo. of containers..01 CYTYC Thin Prep VialPATIENT NOT FASTINGPERFORMED BY: [facility] [address] [id number] Information: [id number] Note: PAPSMR (Normal) Comments: The Pap smear [...] hysterectomy.V72.31 ; Routine gynecological exami Davion Mosley [employer] (ASCP) 93-Tsl-301721:57 ABDOMEN/PELVIS W/WO CONTRAST Radiology Report See Note (Normal) Comments: Exam Number: [id number] CLINICAL:Hydronephrosis CT ABDOMEN AND PELVIS WITHOUT / [...] theright-sided hydronephrosis. Reported By: SAVANA AVELAR M.D. 7-Hjy-941986:44 Urinalysis, Office (72265) UA - LEUKOCYTE ESTERASE Negative (Normal) UA - NITRITE Negative (Normal) URINE UROBILINGN REYNA TIMED Normal mg/dL (Normal) UA - PROTEIN Negative mg/dL (Normal) UA - PH 6.5 (Normal) UA - BLOOD Hemolyzed Trace (Normal) UA - SPECIFIC GRAVITY 1.010 (Normal) UA - KETONES Negative mg/dL (Normal) UA - BILIRUBIN Negative (Normal) UA - GLUCOSE Negative (Normal) 22-Bul-935789:45 KIDNEY (HP) Radiology Report See Note (Normal) Comments: Exam Number: [id number] CLINICAL:The patient is a 69-year-old female who [...] no hydronephrosis Reported By: ELEANOR ERNANDEZ M.D. 17-Mdv-511364:14 BMP BUN/CRE 17.8 {RATIO} (Normal) Range: 10-20 [...] (Normal) GLU 90 mg/dL (Normal) Range: 70-110 12-Yje-355668:52 Iron and TIBC Comments: PATIENT NOT FASTINGPERFORMED BY: LabCoMeadowview Psychiatric HospitalRnjhwb1373 [facility] [id number] Iron Saturation 21 % (Normal) Range: 15-55 Iron, Serum 55 ug/dL (Normal) Range: 35-155 UIBC 202 ug/dL (Normal) Range: 150-375 Iron Bind.Cap.(TIBC) 257 ug/dL (Normal) Range: 250-450 38-Ywx-870932:52 Renal function Panel (81510) Comments: PATIENT NOT FASTINGPERFORMED BY: [facility] FoldeesLifeCare Hospitals [facility] [place] [id number] Albumin, Serum 3.7 g/dL (Normal) Range: 3.5-4.8 [...] Glucose, Serum 91 mg/dL (Normal) Range: 65-99 69-Xgk-030195:52 Ferritin (36545) Comments: PATIENT NOT FASTINGPERFORMED BY: [employer] Tvamlf8422 [facility] [id number] Ferritin, Serum 338 ng/mL (Abnormal) Range: 13-150 77-Cvm-181957:52 CBC with manual diff Comments: PATIENT NOT FASTINGPERFORMED BY: [employer] [place] AsteelLifeCare Hospitals [facility] [place] [id number] Information: [id number] (42653) Baso (Absolute) 0.0 {x10E3/uL} (Normal) Range: 0.0-0.2 [...] 3.80-5.10 WBC 7.9 {x10E3/uL} (Normal) Range: 4.0-10.5 17-Fkn-593194:20 TSH (54938) Comments: PATIENT NOT FASTINGPERFORMED BY: [facility] Xucxdl2974 [facility] [id number] TSH 0.830 {uIU/mL} (Normal) Range: 0.450-4.500 77-Ihk-272423:20 CBC with manual diff Comments: PATIENT NOT FASTINGPERFORMED BY: [facility] Pitylv6436 [facility] [id number] Information: [id number] (23680) Hematology Comments: Note: (Normal) Comments: Verified by [...] 3.80-5.10 WBC 21.6 {x10E3/uL} (Abnormal) Range: 4.0-10.5 [id number] Serum Protein Comments: PATIENT NOT FASTINGPERFORMED BY: [facility] [id number] Information: ADD [id number] NO DRAW FEE Electrophoresis (SPEP) ([id number]) A/G Ratio 1.6 (Normal) Range: 0.7-2.0 Please note: SPRCS (Normal) Comments: Protein electrophoresis scan will follow via computer, mail, orcourier delivery. Yldnr-6-Mxflrecu 0.2 g/dL (Normal) Range: 0.1-0.4 Zbykm-4-Lkofsslr 0.6 g/dL (Normal) Range: 0.4-1.2 Beta Globulin 0.9 g/dL (Normal) Range: 0.6-1.3 Gamma Globulin 0.9 g/dL (Normal) Range: 0.5-1.6 Globulin, Total 2.6 g/dL (Normal) Range: 2.0-4.5 M-Slim Not Observed g/dL (Normal) Albumin 4.2 g/dL (Normal) Range: 3.2-5.6 Protein, Total, Serum 6.8 g/dL (Normal) Range: 6.0-8.5 68-Irz-473453:58 VITAMIN B-12 (CYANOCOBALAMIN) Comments: PATIENT NOT FASTINGPERFORMED BY: [employer] [id number] ([id number]) Vitamin B12 300 pg/mL (Normal) Range: 211-911 11-Tmo-894089:58 SED RATE ERYTHROCYTE (74239) Comments: PATIENT NOT FASTINGPERFORMED BY: [employer] [facility] [id number] Sedimentation Rate-Westergren 2 mm/h (Normal) Range: 0-30 75-Tdb-492875:20 CBC With Differential/Platelet Comments: PATIENT WAS FASTINGPERFORMED BY: [employer] [facility] [id number] Baso (Absolute) 0.1 {x10E3/uL} (Normal) Range: 0.0-0.2 [...] 3.80-5.10 WBC 5.4 {x10E3/uL} (Normal) Range: 4.0-10.5 94-Xlt-243232:20 Comp. Metabolic Panel (14) Comments: PATIENT WAS FASTINGPERFORMED BY: [facility] [id number] ALT (SGPT) 19 [iU]/L (Normal) Range: 0-40 [...] Glucose, Serum 95 mg/dL (Normal) Range: 65-99 22-Qlq-873418:20 Lipid Panel With LDL/HDL Comments: PATIENT WAS FASTINGPERFORMED BY: [facility] [id number] Ratio HDL Cholesterol 66 mg/dL (Normal) Comments: [...] 1.050 {uIU/mL} Comments: PATIENT WAS FASTINGPERFORMED BY: [employer]6[address] [facility] [id number] :20 (Normal) Range: 0.450-4.500 72-Kkg-28025:50 CBCD,SMEAR DIFF BAND 1 % (Normal) Range: [...] :50 TSH 1.25 {uIU/mL} (Normal) Range: 0.34-4.82 80-Szl-151517:41 BILAT SCRN DIGITAL & CAD Radiology Report See Note (Normal) Comments: Exam Number: [id number] MAMMOGRAM, BILATERAL SCREENING DIGITAL AND CAD HISTORYRoutine [...] mammograms werealso examined with computer-aided detection software (NexMed, [employer], [employer].). Reported By: ELEANOR ERNANDEZ M.D. :28 CBCD,SMEAR [...] :28 TSH 0.38 {uIU/mL} (Normal) Range: 0.34-4.82 6-Mpl-902723:04 Rapid Strep Test, Office (24981) Rapid Strep Test, Office Negative (Normal) 47-Pmx-726034:34 BILAT SCRN DIGITAL & CAD Radiology Report See Note (Normal) Comments: Exam Number: [id number] MAMMOGRAM, BILATERAL SCREENING DIGITAL AND CAD HISTORYRoutine [...] mammograms werealso examined with computer-aided detection software (Image[employer], [employer] Reported By: ELEANOR ERNANDEZ M.D. 71-Vct-399867:31 DEXA BONE DENSITY STUDY (HP) Radiology Report See Note (Normal) Comments: Exam Number: [id number] BONE DENSITOMETRY HISTORYPostmenopausal. TECHNIQUE Bone densitometry of [...] hip is measured at 1.6% lessthan in 2001. IMPRESSIONBone densitometry of the lumbar spine and total left hip is withinnormal limits. Reported By: ELEANOR ERNANDEZ M.D. 99-Aqc-635621:39 COMP METABOLIC A/G 1.1 {RATIO} (Normal) Range: [...] : Follow up in 3 months with [facility] Indication: Hypertensive heart disease Hematuria, unspecified : FOLLOW UP IN 3 MONTHS [facility] Indication: Hematuria, unspecified Abnormal blood chemistry [...] Gen Med in Sep 2010 make apt [facility] per pt request Indication: Hydronephrosis Hydronephrosis : Follow up for well woman with [facility] per pt request Indication: Hydronephrosis Anemia : FOLLOW UP IN 2 WEEKS January 07 by [facility] Indication: Anemia Abdominal pain, acute, generalized : FOLLOW UP IN 1 WEEK with [facility] Indication: Abdominal pain, acute, generalized Diarrhea [...] Indication: Bronchitis Planned Observations Metabolic Panel, Comprehensive (77484)Indication: Hypercholesterolemia On: 1-Tqu-959596:52 Request Comments: Jun 2018 LIPID PANEL (09828)Indication: Hypercholesterolemia On: 8-Iuz-235455:51 Request Comments: Jun 2018 URINALYSIS (01654)Indication: Hypertension, essential, benign On: 24-Rsd-418178:52 Request MICROALBUMIN: CREATININE RATIO (91508) AND (22702)Indication: Hypertension, essential, benign On: 74-Ozq-561403:52 Request Metabolic Panel, Comprehensive (54441)Indication: Hypertension, essential, benign On: 60-Mjy-817384:50 Request Comments: send to [facility] CBC, Platelets & Auto Diff (28715)Indication: Hypertension, essential, benign On: 63-Zwa-414363:50 Request Comments: send to [facility] TSH (65694)Indication: Hypothyroidism On: 11-Rxw-840392:50 Request Comments: send to [facility] LIPID PANEL (76555)Indication: Hypercholesterolemia On: 20-Adx-427064:50 Request Comments: send to [facility] URINALYSIS (88849)Indication: Hypertension, essential, benign On: 6-Nbv-505007:03 Request Comments: today MICROALBUMIN: CREATININE RATIO (13706) AND (29269)Indication: Hypertension, essential, benign On: 9-Qqb-176672:03 Request Comments: today TSH (31275)Indication: Hypothyroidism On: 7-Ptd-015310:03 Request Comments: Jul 2017 MICROALBUMIN: CREATININE RATIO (49347) AND (17513)Indication: Hypertension, essential, benign On: 28-Ipo-629034:51 Request Comments: Mar 2017 URINALYSIS (10312)Indication: Hypertension, essential, benign On: 67-Mpz-266220:51 Request Comments: Mar 2017 TSH (88321)Indication: Hypertension, essential, benign On: 97-Jmg-996309:51 Request Comments: Mar 2017 CBC, Platelets & Auto Diff (78304)Indication: Hypertension, essential, benign On: 44-Pys-876822:51 Request Comments: Mar 2017 Metabolic Panel, Comprehensive (90258)Indication: Hypertension, essential, benign On: 50-Iwq-172509:51 Request TSH (THYROID STIMULATING HORMONE) (74404)Indication: Hypothyroidism On: 84-Dcz-728097:53 Request HEPATIC FUNCTION PANEL (06825)Indication: Hypertension, essential, benign On: 34-Xxt-220982:47 Request VITAMIN B12 AND FOLATES (21637)Indication: Vitamin B 12 deficiency On: 8-Nwc-075183:52 Request CALCIFEDIOL (39172)Indication: DEFICIENCY, VITAMIN D NOS On: 6-Ezz-749157:52 Request Urinalysis, Office (96168)Indication: Hematuria, unspecified On: 78-Sww-748934:35 Request MICROALBUMIN URINE QUANT (80769)Indication: Hypertensive heart disease On: 79-Nso-042353:25 Request FECAL OCCULT HGB ASSAY- tubes sent home (63451)Indication: Well woman exam On: 8-Pjl-414006:51 Request OCCULT BLOOD FECES SCREEN- card done in office (27780)Indication: Well woman exam On: 9-Ika-770523:51 Request Renal function Panel (24109)Indication: Hydronephrosis On: 8-Itd-950974:22 Request Iron (13756)Indication: Anemia On: 73-Qgg-997058:39 Request Iron Binding Capacity (TIBC) (31363)Indication: Anemia On: 13-Xfb-453513:39 Request OVA & PARASITE DIR SMEAR (87144)Indication: Diarrhea On: 65-Lcd-995864:50 Request OCCULT BLOOD FECES SCREEN (24944)Indication: Diarrhea On: 14-Snv-291863:50 Request LEUKOCYTE COUNT, FECAL (73881)Indication: Diarrhea On: 75-Wqm-315087:50 Request C-DIFFICILE, STOOL (42291)Indication: Diarrhea On: 98-Csx-133825:50 Request LORNA CULTURE-STOOL (70777)Indication: Diarrhea On: 40-Ovp-831572:50 Request HEPATIC FUNCTION PANEL (70487)Indication: Hypercholesterolemia On: 08-Otl-311425:46 Request Lipid Panel (21258)Indication: Hypercholesterolemia On: 81-Eki-046278:46 Request Comments: in three months (approximately) TSH (53758)Indication: Hypothyroidism On: 07-Fsm-629034:06 Request METABOLIC PANEL, COMPREHENSIVE (47674)Indication: Hypertensive heart disease On: 06-Ghs-544750:06 Request LIPID PANEL (94600)Indication: Hypertensive heart disease On: 97-Vqq-669553:06 Request CBC WITH MANUAL DIFF (01710)Indication: Hypertensive heart disease On: 75-Bzm-770210:06 Request LORNA CULTURE-OTHER (86450)Indication: Pharyngitis, acute On: 9-Mzg-250832:04 Request CBC (Auto) (40070)Indication: Hypercholesterolemia On: 18-Xsj-99890:13 Request Lipid Panel (94448)Indication: Hypercholesterolemia On: :13 Request Metabolic Panel, Comprehensive (54905)Indication: Hypercholesterolemia On: 91-Vjs-44684:13 Request Comments: in six months (approximately) TSH (03313)Indication: Hypothyroidism On: 57-Otd-855032:06 Request LIPID PANEL (32865)Indication: Hypertension On: 13-Jqy-015485:01 Request Planned Encounters Medical; 3 Month FU - On: 14-Jun-2018 10:45 [facility] Sarai Bro CNP, CNP, Mary E Planned Procedures Radiology - Femur - RightBy: Hnag On: 02-Mar-2018 Intent Sarai CARNEY CNP, Mary E DEXA SCAN AXIAL SKELETON On: 19-Oct-2017 Intent (00282)By: Sarai Bro CNP, CNP, Mary E Aerosol Treatment (56991)By: On: 07-Sep-2017 Intent Kelly Naqvi Comments: Lungs clear after aerosol treatment Flu Vaccine (Quadrivalent) On: 13-Apr-2017 Intent 20399Ko: Giselle Silva LPN Comments: InfluenzaLot #[id number]-01/24/18Site-L dltd, IMDose prefilled syringeVIS and ABN signedgiven by:ROSA MARIA cade MAMMOGRAM BREAST BILATERAL On: 05-Jan-2017 Intent SCREENING DIGITAL (88833)By: Hang Comments: after Apr 24 2017 Sarai CARNEY CNP, Mary E DEXA SCAN AXIAL SKELETON On: 05-Jan-2017 Intent (37521)By: Sarai Bro CNP Comments: After Apr 24 2017 Sarai CARNEY Flu Vaccine (Quadrivalent) On: 06-Jul-2016 Intent 83164Sb: Giselle Silva LPN Comments: InfluenzaLot #Lot [id number]/30/17Site-L dltd, IMDose prefilled syringeVIS and ABN signedgiven by:ROSA MARIA cade MAMMOGRAM, SCREENING, BOTH BREAST On: 31-Mar-2016 Intent (98832)By: Sarai Bro CNP, CNP, Mary E MAMMOGRAM, SCREENING, BOTH BREAST On: 17-Feb-2016 Intent (07799)By: Sarai Bro CNP, CNP, Mary E PHYSICAL THERAPY EVALUATION On: 28-Jan-2016 Intent (96291)By: Sarai Bro CNP, CNP, Mary E PHYSICAL THERAPY EVALUATION On: 28-Jan-2016 Intent (64549)By: Sarai Bro CNP, CNP, Mary E Toradol Injection, 30 mg On: 28-Jan-2016 Intent (J1885)By: Sarai Bro CNP, CNP, Mary E Radiology - Lumbar SpineBy: Hang On: 28-Jan-2016 Intent Sarai CARNEY CNP, Mary E Radiology - Knee - LeftBy: Hang On: 28-Jan-2016 Intent Sarai CARNEY CNP, Mary E Aerosol Treatment (84245)By: Hang On: 24-Dec-2015 Intent Sarai CARNEY CNP, Mary E Flu Vaccine (Quadrivalent) On: 10-May-2015 Intent 63709Lm: Sarai Bro CNP Comments: Lot:[id number]:02/06/16Dose:0.5mLRoute:IMSite:L DltdGiven By:Kacie signed ANGELIKA Sarai Moon DEXA SCAN AXIAL SKELETON On: 19-Mar-2015 Intent (52872)By: Hang CARNEY Rianna Ciwojciechyin CARNEY Sarai Moon MAMMOGRAM, SCREENING, BOTH BREAST On: 11-Feb-2015 Intent (62960)By: Hang CARNEY Sarai Moon Tiffaniebonita ANGELIKA Sarai Moon DEXA SCAN AXIAL SKELETON On: 11-Feb-2015 Intent (63090)By: Hang CARNEY Rianna Cibonita ANGELIKA Sarai Moon Solu -Medrol Injection, 125 mg On: 25-Jul-2014 Intent (J2930)By: Sarai Bro CNP Comments: [id number] 5.17right gm125 mgas, ROSA MARIA CARNEY Rianna Aerosol Treatment (53732)By: Hang On: 25-Jul-2014 Intent ANGELIKA Sarai Moon Tiffaniebonita ANGELIKA Sarai Moon Toradol Injection, 30 mg On: 18-Jul-2014 Intent (J1885)By: Hang CARNEY Rianna Ciwojciechyin CARNEY Rianna Radiology - Lumbar SpineBy: Hang On: 18-Jul-2014 Intent ANGELIKA Sarai Moon Tiffaniebonita ANGELIKA Sarai Moon Radiology - Hip - RightBy: Hang On: 18-Jul-2014 Intent ANGELIKA Sarai Moon Tiffaniebonita ANGELIKA Sarai Moon Prevnar 13 (59673)By: Ricardo CRANE, On: 16-Jul-2014 Intent Giselle Comments: [id number] arm, IMAS Bone Density StudyBy: Hang CARNEY, On: 15-May-2014 Intent Sarai Bro CNP Sarai Moon ADMINISTRATION OF INFLUENZA VIRUS On: 15-May-2014 Intent VACCINE (G0008)By: Sarai Bro CNP, CNP Rianna FLU VAC, SPLIT, >3 YEARS, On: 15-May-2014 Intent INTRAMUSC (10751)By: Hang CARNEY, Comments: Lot:[id number]:04/24Dose:0.5mLRoute:IMSite:L DltdGiven By:FIDENCIO signed Rianna Tiffaniewojciechyin CARNEY Rianna SPECIMEN HNDLNG/TRNSPRT, OFFC > On: 22-Mar-2014 Intent LAB (14252)By: Hang CARNEY RiannaRed Bro CNP Rianna BILATERAL MAMMOGRAMS (39508)By: On: 18-Dec-2013 Intent Hang CARNEY Rianna Ciwojciechyin CARNEY Rianna Aerosol Treatment (25233)By: Hang On: 22-Sep-2013 Intent ANGELIKA RiannaRed Bro CNP Rianna Wax CurettesBy: Sarai Bro CNP On: 22-Sep-2013 Intent Hang CARNEY Rianna Ear Irrigation (26537)By: Hang On: 22-Sep-2013 Intent ANGELIKASarai Hang CARNEY Rianna Eprescribed prescriptions On: 18-Aug-2013 Intent (G8553)By: Lucrecia Vargas Eprescribed prescriptions On: 05-May-2013 Intent (G8553)By: Sarai Bro CNP, CNP Rianna ADMINISTRATION OF INFLUENZA VIRUS On: 05-May-2013 Intent VACCINE (G0008)By: Aristides CRANE, Comments: lot # [id number] 6.2014site- L dltdroute-IMdose- 0.5mlVIS and [facility] signedCincinnati Shriners Hospitalfili Francis FLU VAC, SPLIT, >3 YEARS, On: 05-May-2013 Intent INTRAMUSC (09188)By: Penny Irving LPN MAMMOGRAM, SCREENING, BOTH BREASTS On: 16-Dec-2012 Intent (87871)By: Hang CARNEY RiannaRed Bro CNP Rianna Spirometry (67190)By: Aristides CRANE, On: 16-Dec-2012 Intent Penny Comments: mild airway obstruction Aerosol Treatment (63243)By: Hang On: 30-Mar-2012 Intent ANGELIKA RiannaRed Bro CNP Rianna PFT - CompleteBy: Sarai Bro CNP On: 01-Mar-2012 Intent Red Bro CNP Rianna Inhaler Demonstration (43787)By: On: 28-Dec-2011 Intent Hang CARNEY RiannaRed Bro CNP Rianna Pulse Oximetry (52557)By: Hang On: 28-Dec-2011 Intent PROCESS PUMPER, Sarai uBsby CNP Eprescribed prescriptions On: 22-Apr-2011 Intent (G8553)By: Sarai Bro CNP, CNP, Mary E Eprescribed prescriptions On: 21-Oct-2010 Intent (G8553)By: Sarai Bro CNP, CNP, Mary E Eprescribed prescriptions On: 21-Oct-2010 Intent (G8553)By: Hang CARNEY Sarai Bro CNP Sarai Moon MAMMOGRAM, SCREENING, BOTH BREASTS On: 15-Apr-2010 Intent (20565)By: Hang CARNEY Sarai Bro CNP Sarai Moon Ultrasound - RenalBy: Hang CARNEY, On: 23-Dec-2009 Intent Sarai Bro CNP Sarai Moon Comments: To be done on December 30 CT - Abdomen & Pelvis (IV Contrast On: 17-Dec-2009 Intent Needed)By: Hang CARNEY Sarai Bro CNP Sarai Moon ADMINISTRATION OF INFLUENZA VIRUS On: 22-May-2009 Intent VACCINE (G0008)By: Karina Nina LPN FLU VAC, SPLIT, >3 YEARS, On: 22-May-2009 Intent INTRAMUSC (69892)By: Kelle CRANE, Comments: Lot #[id number]-left deltoidgiven by:MELA Collins Pulse Oximetry (82185)By: Jay On: 25-Sep-2008 Intent PRESTON ADMINISTRATION OF INFLUENZA VIRUS On: 13-Jun-2008 Intent VACCINE (G0008)By: Aristides CRANE, Comments: lot #[id number] exp- 01/15site-left delroute-imdose- 0.5 Penny FLU VAC, SPLIT, >3 YEARS, On: 13-Jun-2008 Intent INTRAMUSC (67002)By: Penny Irving LPN MAMMOGRAM, SCREENING, BOTH BREASTS On: 28-May-2008 Intent (95108)By: Susan Lee MD M Bio Z (38202)By: Susan Lee MD On: 28-Nov-2007 Intent M SPECIMEN HNDLNG/TRNSPRT, OFFC > On: 12-Oct-2007 Intent LAB (64007)By: Tyesha Ramos DO Bone Density StudyBy: Rosa CHRISTIANSEN, On: 18-Feb-2007 Intent Susan Sánchez Comments: ache in back MAMMOGRAM, SCREENING, BOTH BREASTS On: 18-Feb-2007 Intent (64517)By: Susan Lee MD Bio Z (56577)By: Susan Lee MD On: 20-Jul-2006 Intent M Planned Medications INJECTION, KETOROLAC TROMETHAMINE, PER 15 MG Ordered: 18-Jul-2014 Pending Ciesa PROCESS PUMPER, Rianna Ciesa PROCESS PUMPER, Rianna INJECTION, KETOROLAC TROMETHAMINE, PER 15 MG Ordered: 28-Jan-2016 Pending Ciesa PROCESS PUMPER, Rianna Ciesa PROCESS PUMPER, Rianna INJECTION, METHYLPREDNISOLONE SODIUM SUCCINATE, UP TO 125 MG Ordered: 25-Jul-2014 Pending Ciesa PROCESS PUMPER, Rianna Ciesa PROCESS PUMPER, Rianna Instructions Name Dates Details Nonsmoker : [...] inoculation against influenza Encounters Office Visit On: 18-May-2018 13:19 Encounter Reason: [...] issues: In had cardioversion by Dr. Tova boogie heart. [...] The patient does have durable power of traffic law attorney and living will. The patient has noticed nothing from the geriatic depression scale. 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
--- OUTSIDE RECORDS SUMMARY | 2018-09-02 07:15 | XMS RPT_ITS | Continuity of Care Document ---
:1940 Author Organization [facility] Address [address] [facility] [address] [place] [address] Phone Care Team Providers Name Role Phone Tiffaniebonita ANGELIKA, Rianna Unavailable Amanda CHRISTIANSEN, Higinio Longoria Unavailable Turner CHRISTIANSEN, Nahun Plaza Unavailable [facility] BC, Eugenie Tovar Unavailable Rosa CHRISTIANSEN, [...] for 0 days Refills: 0 Ordered:22-Apr-2011 Slarb DISPATCH CLERK, Giselle Start : 22-Apr-2011 Active COQ10, 100MG (Oral Capsule) 1 (one) Capsule Capsule daily for 0 days Quantity: 30 {Capsule} Refills: 0 Ordered:25-Jul-2014 Arsitides DISPATCH CLERKPenny Start : 18-Jul-2014 Active Coreg 6.25 MG [...] days Quantity: 20 {Capsule} Refills: 0 Ordered:18-Aug-2013 aHng CARNEY, Sarai Ace CNP, Sarai Moon Start : 18-Aug-2013 End : 28-Aug-2013 Inactive DRISDOL, 20347ZHKA (Oral Capsule) 1 Capsule twice weekly for [...] Lower Extremity Result: Comments: See Note; NOTES: [facility] Cardiovascular Services [address] [place] [address] Venous Duplex US - Paulie Extrem 04/07/18 1000 MR#: [id number] Acct: [id number] Name: VALERIE CRAIN Rep #: [id number] : 1940 77 From: Higinio Patel MD [...] Dictated: 04/07/18 1000 Date Transcribed: 04/08/18 1605 [employer] Salesperson: Signed 02-Mar-2018 Femur Min 2 Views Result: Comments: See Note; NOTES: [facility] Imaging Services [address] [place] [address] Femur Min 2 Views MR#: [id number] Acct: [id number] Name: VALERIE CRAIN Rep #: [id number] : 1940 F 77 From: Christiano Croft MD PCP: Sarai Bro NP Status: REG CLI Study: Femur Min 2 Views Date of Exam: 03/02/18 Exam# [id number] Ordering Dr: Sarai Bro STUDY: X-RAY - [...] vice support , CC: Sarai Bro NP [employer] Salesperson: Signed 10-Feb-2018 Echocardiogram Complete Result: Comments: See Note; NOTES: [facility] Cardiovascular Services [address] [place] [address] Echo Complete 02/10/18 1100 MR#: [id number] Acct: [id number] Name: VALERIE CRAIN Rep #: [id number] : 1940 77 From: Amilcar Paz MD Attending Dr: Jennifer Goodwin Status: REG CLI Ordering Dr: Jennifer Goodwin Date: 02/10/18 Location: [facility] Sex: F C Admitted: [facility] For Study: DYSPNEA Procedure This was [...] is no significant change. Ordering Physician: Jennifer Goodwin/Amilcra Paz Referring Physician: SARAI BRO Performed By: Mary Hines, BRANT, RVT 02/10/18 1241 Date Amilcar Paz MD CC: Sarai Bro SURGICAL ASSISTANT CERTIFIED; Jennifer Goodwin Date Dictated: 02/10/18 1100 Date Transcribed: 02/10/18 1241 [employer] Salesperson: Signed 28-Jan-2018 Cardiology Visit Report Result: Comments: See Note; NOTES: [facility] [address] [place] [address] OFFICE VISIT Date of Service: 01/28/18 MR#: [id number] Acct: [id number] Name: VALERIE CRAIN Rep #: [id number] : 1940 Provider: Jennifer Goodwin Age/Sex: 77/F Location: [facility] Status: Signed HPI HPI Details: VALERIE [...] for her age. 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 She does have [...] valve disorder (Chronic) Paroxysmal atrial fibrillation (Chronic) FPC (current) use of anticoagulants (Chronic) Benign essential HTN (Chronic) Surgical History History of appendectomy (Resolved) H/O mitral valve repair (Chronic) Family History Father Decea sed, age 48 from [place] CAD (coronary artery disease) Sudden cardiac Myocardial [...] was generated using a voice recognition syst [employer]isys and there may be incorrect words, spelling or punctuation errors that were not noted when reviewing the office note prior to saving. Follow Up 6 Months (MEDICAL TECHNOLOGIST CLINICAL) Coding Level of Care Code Off vis,est,l [...] Downtime Report Result: Comments: See Note; NOTES: [facility] Medical Records Department [address] [place] [address] Downtime Report MR#: [id number] Acct: [id number] Name: VALERIE CRAIN Rep #: [id number] : 1940 77 From: Anuj Webster PCP: Sarai Bro NP Status: REG RCR This patient was seen during an EMR downtime January 10, 2018 - January 17, 2018. This patient may have a combination of pa per and electronic documentation or all paper documentation. All documentation is viewable within the e-chart portion of [employer] for each patient visit. 09-Nov-2017 Dexa Bone Density Study Result: Comments: See Note; NOTES: [facility] Imaging Services [address] [place] [address] Dexa Bone Density Study MR#: [id number] Acct: [id number] Name: VALERIE CRAIN Rep #: [id number] : 1940 F 77 From: Henry Jones MD PCP: Sarai Bro NP Status: REG CLI Study: Dexa Bone Density Study Date of Exam: 11/09/17 Exam# [id number] Ordering Dr: Sarai Bro STUDY: DUAL E [...] Henry Jones MD at 13:40 EDT Tel [phone], Service support , CC: Sarai Bro NP [employer] Salesperson: Signed 27-Jul-2017 Cardiology Visit Report Result: Comments: See Note; NOTES: [facility] [address] [place] [address] OFFICE VISIT Date of Service: 07/27/17 MR#: [id number] Acct: [id number] Name: SEAN CRAIN #: [id number] : 1940 Provider: Amilcar Paz MD Age/Sex: 77/F Location: [facility] Status: Signed HPI 6 [...] 07/27/17] Ejection fraction %: 40 to 44 [facility] Medical History Dilated cardiomyopathy (Chronic) Long-term use of high-risk medication (Chronic ) History of mitral valve disorder (Chronic) Paroxysmal atrial fibrillation (Chronic) FPC (current) use of anticoagulants (Chronic) Benign essential HTN (Chronic) Dyslipidemia (Chronic) mitral maria m vuplasty (Chronic) Surgical History H/O mitral valve repair (Chronic) Family History Father , age 48 from [place] CAD (coronary artery disease) Sudden cardiac Myocardial [...] Detail Follow Up 6 Months (mmm) 07/27/17 3548 <Electronically signed by Amilcar Paz MD> Date Amilcar Cummins Signature: Date (if applicable) CC: Sarai Bro SURGICAL ASSISTANT CERTIFIED 17-May-2017 SCREENING MAMM (CAD), BILAT Result: Comments: See Note; NOTES: [facility] Imaging Services [address] [place] [address] SCREENING MAMM (CAD), BILAT MR#: [id number] Acct: [id number] Name: ESAN CRAIN Rep #: [id number] : 1940 F 76 From: Henry Jones MD PCP: Sarai Bro Status: REG CLI Study: SCREENING MAMM (CAD), BILAT Date of Exam: 05/17/17 Exam# [id number] Ordering Dr: Sarai Bro MAMMOGRAPH Y - [...] delay biopsy of a clinically suspicious abnormality. [id number] Electronically Signed: Henry Jones MD at 10:21 EDT Tel [phone], Service support , CC: Sarai Bro [employer] Salesperson: Signed 27-Feb-2017 Carotid Duplex Ultrasound Result: Comments: See Note; NOTES: [facility] Cardiovascular Services [address] [place] [address] Carotid Duplex Ultrasound 02/26/17 1046 MR#: [id number] Acct: [id number] Name: SEAN ABEBE Rep #: [id number] : 1940 76 From: Malcolm Hill MD Attending Dr: Jennifer Goodwin Status: REG CLI Ordering Dr: Jennifer Goodwin Date: 02/26/17 Location: [facility] Sex: F C Admitte d: Reason [...] the left bulb. Procedure Carotid Duplex 9 4620. The exam was diagnostic. Exam performed in [...] Dictated: 02/26/17 1046 Date Transcribed: 02/27/17 1103 [employer] Salesperson: Signed 03-Sep-2016 Chest PA and Lateral Result: Comments: See Note; NOTES: [facility] Imaging Services [address] [place] [address] Verdana 4d Chest PA and Lateral MR#: [id number] Acct: [id number] Name: SEAN CRAIN Rep # : [id number] : 1940 F 76 From: Henry Jones MD PCP: Sarai Bro Status: REG CLI Study: Chest PA and Lateral Date of Exam: 09/03/16 Exam# [id number] Ordering Dr: Nahun Vazquez MD STUD Y: [...] Henry diop MD at 12:41 EST Tel [phone], Service support [phone], CC: Sarai Bro; Nahun Vazquez MD [employer] Salesperson: Signed 28-Aug-2016 Echocardiogram Complete Result: Comments: See Note; NOTES: [facility] Cardiovascular Services [address] [place] [address] Echo Complete 08/28/16 1003 MR#: [id number] Acct: [id number] Name: SEAN CRAIN p #: [id number] : 1940 76 From: Amilcar Paz MD Attending Dr: Amilcar Paz MD Status: REG CLI Ordering Dr: Amilcar Paz MD Date: 08/28/16 Location: [facility] Sex: F C Admitted: Reason For Study: AT [facility] FIB[facility] Procedure This was a [...] Dictated: 08/28/16 1003 Date Transcribed: 08/28/16 1225 [employer] Salesperson: Signed 24-Apr-2016 Bilat Scrn Digital AND CAD Result: Comments: See Note; NOTES: [facility] Imaging Services [address] [place] [address] Verdana 4d Bilat Scrn Digital AND CAD MR#: [id number] Acct: [id number] Name: SEAN CRAIN Rep #: [id number] : 1940 F 75 From: Henry Jones MD PCP: Sarai Bro Status: REG CLI Study: Bilat Scrn Digital AND CAD Date of Exam: 04/24/16 Exam# [id number] Ordering Dr: Sarai Bro MAMMOGRAPHY - BILATERAL [...] significant change since the prior study. ___ [facility]/Bilat Scrn Digital AND CAD IMPRESSION: Stable bilateral screening mammogram. Yearly follow-up mammogram recommended. (A) ASSESSMENT CATEGORY: BIRADS Category 1: Negative. A letter regarding these results will be sent to the patient by the facility within 30 days. Approximately 10% of breast cancers are n ot detected by mammography. A normal mammogram should not delay biopsy of a clinically suspicious abnormality. [id number] Electronically Signed: Henry Jones MD at 10:58 EDT Tel [phone], Service support [phone], CC: Sarai Bro [employer] Salesperson: Signed 04-Mar-2016 PT D/C Summary (1) Result: Comments: See Note; NOTES: [facility] [address] [place] [address]. [address] [place], [place] [address] Fax REHABILITATION RVICES DISCHARGE SUMMARY MR#: [id number] Acct: [id number] Name: SEAN CRAIN Rep #: [id number] : 1940 75 From: Giselle NELSON Referring [...] please feel free to call me at [phone]. Thank you for the referral of this patie nt. Sincerely, Giselle Yan <Electronically signed by Giselle Yan MPT> 03/04/16 1917 CC: Sarai Bro Signed 04-Feb-2016 Inital Evaluation (1) - PT Result: Comments: See Note; NOTES: [facility] [address] [place], [place] [address] Fax REHABILITATION SE MEDEROS INITIAL EVALUATION MR#: [id number] Acct: [id number] Name: SEAN CRAIN Rep #: [id number] : 1940 75 From: Giselle Yan MPT Referring Dr.: Sarai Bro Status: REG RCR Insurance: MEDICARE PART A B [facility] Patient's Visit Information SEAN CRAIN is a 75 year old F referred to Physical Therapy by Sarai rBo with a diagnosis of L knee pain/ [...] to be FAXED BACK to us at [phone] for Medicare purposes . Please let me know if there are questions or concerns regarding this plan of care. Physician Signature: Date: <Electronical ly signed by Giselle Yan MPT> 02/04/16 1628 CC: Sarai Bro Signed For Medicare only, by signing this I certify the plan of care. Physicians Signature Date 28-Jan-2016 Knee 4 or More Views Result: Comments: See Note; NOTES: [facility] Imaging Services [address] [place] [address] Verdana 4d Knee 4 or More Views MR#: [id number] Acct: [id number] Name: SEAN DWYER Rep #: [id number] : 1940 F 75 From: Shreyas Beaver MD PCP: Sarai Bro Status: REG CLI Study: Knee 4 or More Views Date of Exam: 01/28/16 Exam# [id number] Ordering Dr: Sarai Bro STUDY: X-RAY - [...] MD at 19:39 EDT , Service support [phone], ORDER # : [id number] RAD/Knee 4 or More Views IMPRESSION: No acute abnormality. Mild degenerative changes. Electronically Signed: Shreyas Beaver MD at 19:39 EDT , Service sup port [phone], CC: Sarai Bro [employer] Salesperson: Signed 28-Jan-2016 L/S Spine Min 4 Views Result: Comments: See Note; NOTES: [facility] Imaging Services [address] [place] [address] Verdana 4d L/S Spine Min 4 Views MR#: [id number] Acct: [id number] Name: SEAN BERRIOS Rep #: [id number] : 1940 F 75 From: Shreyas Beaver MD PCP: Sarai Bro Status: REG CLI Study: L/S Spine Min 4 Views Date of Exam: 01/28/16 Exam# [id number] Ordering Dr: Shital Bro STUDY: X-RAY - [...] MD at 19:40 EDT , Service support [phone], Fax RAD/L/S Spine Min 4 Views IMPRESSION: No acute abnormality. Mild to moderate degenerative changes. Electronically Signed: Shreyas Beaver MD at 19:40 EDT T el [phone], Service support [phone], CC: Sarai Bro [employer] Salesperson: Signed 19-Mar-2015 Dexa Bone Density Study (HP) Result: Comments: See Note; NOTES: [facility] Imaging Services [address] [place] [address] Bone Density Report MR#: [id number] Acct: [id number] Name: SEAN CRAIN Rep #: [id number] : 1940 F 74 From: Henry Jones MD PCP: Sarai Bro Status: REG CLI Study: Dexa Bone Density Study (HP) Date of Exam: 03/19/15 Exam# [id number] Ordering Dr: Sarai Bro STUD Y: DUAL [...] Henry Jones MD at 14:35 EDT Tel [phone], Burst.itic e support [phone], CC: Sarai Bro [employer] Salesperson: Signed 12-Mar-2015 Jero Edwards Digital AND CAD Result: Comments: See Note; NOTES: [facility] Imaging Services [address] [place] [address] Breast Imaging Report MR#: [id number] Acct: [id number] Name: SEAN CRAIN Rep #: [id number] : 1940 F 74 From: Henry Jones MD PCP: Sarai Bro Status: REG CLI Study: Bilat Scrn Digital AND CAD Date of Exam: 03/12/15 Exam# [id number] Ordering Dr: Sarai Bro MAMM OGRAPHY - [...] Jones MD 23/03/04 at 9:59 EDT Tel [phone], Service support [phone], CC: Sarai Bro [employer] Salesperson: Signed 16-Jan-2015 Operative Report Result: Comments: See Note; NOTES: [facility] Medical Records Department [address] [place] [address] Operative Report MR#: [id number] Acct: [id number] Name: SEAN CRAIN Rep #: [id number] : 1940 74 From: Amilcar Paz MD [...] care. Amilcar Paz MD T: NTS JOB: [id number] 01/16/15 0901 <Electronically signed by Amilcar Paz MD&amp ;#62; Date Amilcar Paz MD CC: Sarai Bro; Amilcar Paz MD Date Dictated: 01/14/151318 Date Transcribed: 01/14/151318 [employer] Salesperson: Signed 15-Jan-2015 Consultation Result: Comments: See Note; NOTES: [facility] Medical Records Department [address] [place] [address] Consultation MR#: [id number] Acct: [id number] Name: SEAN CRAIN Rep #: [id number] : 1940 74 From: Armando Waite MD [...] MD Nelson HENDERSON C: Amilcar Bro T: [facility] JOB: [id number] 01/15/15 0643 <Electronically signed by Armando Waite MD> Date Armando Waite MD CC: Sarai Bro; Armando Waite MD; Amilcar Paz MD Date Dictated: 01/14/15 1357 Date Transcribed: 01/14/151356 [employer] Salesperson: Signed 07-Jan-2015 Chest PA and Lateral Result: Comments: See Note; NOTES: [facility] Imaging Services [address] [place], [place] [address] Radiology Report MR#: [id number] Acct: [id number] Name: SEAN CRAIN Rep #: [id number] : 1940 F 74 From: Henry Jones MD PCP: Sarai Bro Status: PRE CLI Study: Chest PA and Lateral Date of Exam: 01/07/15 Exam# [id number] Ordering Dr: Amilcar Paz MD STUDY: X-RA [...] Henry Jones MD at 14:28 EDT Tel [phone], Service support [phone], RAD/Chest PA and Lateral IMPRESSION: Hyperinflation. No acute abnormality is seen. Electronically Signed: Henry Jones MD 2014 at 14:28 EDT Tel [phone], Service support [phone], CC: Sarai Bro; Amilcar Paz MD [employer] Salesperson: Signed 24-Dec-2014 Echocardiogram Complete Result: Comments: See Note; NOTES: [facility] Cardiovascular Services [address] [place] [address] Echo Complete 12/24/14 1003 MR#: [id number] Acct: [id number] Name: SEAN CRAIN Rep #: [id number] : 1940 74 From: Amilcar Paz MD [...] Dictated: 12/24/14 1003 Date Transcribed: 12/24/14 1359 [employer] Salesperson: Signed 19-Jul-2014 Hip min 2 Views Result: Comments: See Note; NOTES: [facility] Imaging Services [address] [place] [address] Radiology Report MR#: [id number] Acct: [id number] Name: SEAN CRAIN Rep #: [id number] : 1940 F 74 From: Henry Jones MD PCP: Sarai Bro Status: REG CLI Study: Hip min 2 Views Date of Exam: 07/19/14 Exam# [id number] Ordering Dr: Sarai Bro STUDY: X-RAY - [...] Henry Jones MD at 11:38 EST Tel [phone], Service support [phone], RAD/Hip min 2 Views IMPRESSION: Degenerative changes of the hip. Electronically Signed: Henry Jones MD at 11:38 EST Tel [phone], Service support [phone], CC : Sarai Bro [employer] Salesperson: Signed 19-Jul-2014 L/S Spine Min 4 Views Result: Comments: See Note; NOTES: [facility] Imaging Services [address] [place] [address] Radiology Report MR#: [id number] Acct: [id number] Name: SEAN CRAIN Rep #: [id number] : 1940 F 74 From: Henry Jones MD PCP: Sarai Bro Status: REG CLI Study: L/S Spine Min 4 Views Date of Exam: 07/19/14 Exam# [id number] Ordering Dr: Sarai Bro STUDY: X-RAY - [...] Henry Jones MD at 13:19 EST Tel [phone], Service support [phone], CC: Sarai Bro [employer] Salesperson: Signed 05-Jan-2014 Bilat Scrn Digital & CAD Result: Comments: See Note; NOTES: [facility] Imaging Services [address] [place] [address] Breast Imaging Report MR#: [id number] Acct: [id number] Name: SEAN CRAIN Rep #: [id number] : 1940 F 73 From: Henry Jones MD PCP: Status: REG CLI Exam# [id number] Ordering Dr: Sarai Bro MAMMOGRAPHY - BILATERAL [...] Henry Jones MD at 9:58 EDT Tel [phone], Service support [phone], CC: Sarai Bro; Amilcar Paz MD [employer] Salesperson: Signed Immunization Name Dates Details Influenza (3 years and up) on: 13-Jun-2008 Influenza (3 years and up) on: 22-May-2009 Comments: Lot #[id number] deltoidgiven by:CDH Family History Unknown Family Member Name Dates Details Father Comments: [place] at 48 & Status: Active Social History Name Dates Details Caffeine Use Comments: 2 cups coffee qd 1 soda qod Status: Active 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 Status: Inactive Tobacco use: Never smoker. Status: Inactive Vital Signs Date Test Result Details 96-Ezs-967381:20 Temperature 99.4 f Comments: Method: Temporal Pulse [...] kg/m2 Body Surface Area Calculated 1.86 m2 60-Cox-820729:16 Temperature 96.7 f Pulse 62 /min Comments: [...] Value Details :18 Prothrombin Time w/INR Comments: [facility] [address] [place], [address] INR 2.7 (Normal) PROTIME 28.4 s (Abnormal) Range: 11.7-14.9 :14 Prothrombin Time w/INR Comments: [facility] [address] [place], [address] INR 2.2 (Normal) PROTIME 24.6 s (Abnormal) Range: 11.7-14.9 :18 Prothrombin Time w/INR Comments: [facility] [address] [place], [address] INR 2.2 (Normal) PROTIME 24.3 s (Abnormal) Range: 11.7-14.9 :26 Prothrombin Time w/INR Comments: [facility] [address] [place], [address] INR 2.2 (Normal) PROTIME 24.6 s (Abnormal) Range: 11.7-14.9 :13 Prothrombin Time w/INR Comments: [facility] [address] [place], [address] INR 2.3 (Normal) PROTIME 25.7 s (Abnormal) Range: 11.7-14.9 :58 Prothrombin Time w/INR Comments: [facility] [address] [place], [address] INR 2.0 (Normal) PROTIME 22.8 s (Abnormal) Range: 11.7-14.9 :45 CBC W/Diff, Automated Comments: [facility] [address] [place], [address] ; another Absolute Lymph 2.13 [...] Range: 4.4-11.0 :45 Comprehensive Metabolic Profil Comments: [facility] [address] [place], [address] ; Dr Paz GAP 8 [...] Comments: Please note revised GLUCOSE reference range arelgobkg53/02/2018. 44-Dkh-25072:45 Lipid Profile Comments: [facility] [address] [place], [address] VLDL 17 mg/dL (Normal) Range: 5-40 LDL [...] 200-240 mg/dL Borderline >240 mg/dL High Risk 53-Rab-76783:45 Microalb:Creat Ratio,Random UR Comments: [facility] [address] [place], [address] MALB:CREAT 8.4 {mg/g_CRE} (Normal) MICROALBUMIN,UR 13.5 mg/L (Normal) UR CREAT 160.00 mg/dL (Normal) 87-Mlj-13010:45 Prothrombin Time w/INR Comments: [facility] [address] [place], [address] INR 1.9 (Normal) PROTIME 21.5 s (Abnormal) Range: 11.7-14.9 Comments: ADDENDA: cardio :45 Thyroid Stim Hormone (TSH) Comments: [facility] [address] [place], [address] TSH 2.92 {uIU/mL} (Normal) Range: 0.358-3.74 26-Cwb-65999:45 Urinalysis, Routine (Dipstick) Comments: How was Urine Obtained? CLEAN [facility] [address] [place], [address] ; other doc LEUK ESTERASE 100 /ul (Abnormal) OCCULT BLOOD-UR 50 /ul (Abnormal) NITRITE UR Negative (Normal) UROBILI Normal mg/dL (Normal) PROT DIPSTX Negative mg/dL (Normal) pH UR 6.0 (Normal) Range: 5.0 - 8.0 SP.GR. DIPSTX 1.020 (Normal) Range: 1.002-1.030 KETONE UR Negative mg/dL (Normal) BILIRUBIN URINE Negative mg/dL (Normal) GLUCOSE, UR Normal mg/dL (Normal) CLARITY Cloudy (Normal) COLOR Yellow (Normal) 89-Cqi-380080:31 Prothrombin Time w/INR Comments: [facility] [address] [place], [address] INR 2.1 (Normal) PROTIME 23.3 s (Abnormal) Range: 11.7-14.9 5-Bje-231277:20 Prothrombin Time w/INR Comments: [facility] [address] [place], [address] INR 2.2 (Normal) Comments: ADDENDA: managed by cardio PROTIME 24.1 s (Abnormal) Range: 11.7-14.9 71-Nui-932673:40 Prothrombin Time w/INR Comments: [facility] [address] [place], [address] ; managed by cardio INR 2.0 (Normal) PROTIME 22.9 s (Abnormal) Range: 11.7-14.9 60-Isa-176656:13 Prothrombin Time w/INR Comments: [facility] [address] [place], [address] INR 1.6 (Normal) PROTIME 19.5 s (Abnormal) Range: 11.7-14.9 13-Uea-959326:28 Prothrombin Time w/INR Comments: [facility] [address] [place], [address] ; cardio INR 1.8 (Normal) PROTIME 19.8 s (Abnormal) Range: 11.7-14.9 4-Rlm-790599:53 Prothrombin Time w/INR Comments: [facility] [address] [place], [address] INR 2.4 (Normal) PROTIME 24.8 s (Abnormal) Range: 11.7-14.9 5-Jif-912153:26 Prothrombin Time w/INR Comments: [place] [address] [place], [address] INR 1.9 (Normal) PROTIME 21.2 s (Abnormal) Range: 11.7-14.9 69-Zdu-301959:42 Rapid Flu (40960 x 2) Influenza A Ag POS B (Normal) 00-Pnk-028249:04 Prothrombin Time w/INR Comments: [facility] [address] [place], [address] ; cardio manages INR 1.4 (Normal) PROTIME 16.5 s (Abnormal) Range: 11.7-14.9 52-Bab-877360:28 Prothrombin Time w/INR Comments: [facility] [address] [place], [address] INR 1.2 (Normal) PROTIME 14.3 s (Normal) Range: 11.7-14.9 1-Ldp-718490:11 Prothrombin Time w/INR Comments: [address] [place], [address] INR 2.0 (Normal) PROTIME 21.6 s (Abnormal) Range: 11.7-14.9 97-Ygw-064247:18 CBC W/Diff, Automated Comments: [address] [place], [place], [address] Absolute Lymph 2.38 {X10_3/ul} (Normal) Range: 0.83-4.51 [...] Range: 4.4-11.0 :18 Prothrombin Time w/INR Comments: [facility] Ucklmgkfwe0665 [address] [place], [place], [phone] INR 2.1 (Normal) PROTIME 22.8 s (Abnormal) Range: 11.7-14.9 :52 POTASSIUM SERUM ([id number]) Comments: STAT; Order Date: 07/23/17Order Info: [id number] - KComments: [facility] Qrbbnhopzk8355 [address] [place], [id number] K 4.4 mmol/L (Normal) Range: 3.5-5.1 08-Stk-738360:56 Microscopic Examination Comments: PATIENT NOT FASTINGPERFORMED BY: Zumbox70 EvergageSentara [facility] [id number] Bacteria Few (Normal) Mucus Threads Present (Normal) Epithelial Cells (non renal) 0-10 {/hpf} (Normal) Range: 0 - 10 RBC 3-10 {/hpf} (Abnormal) Range: 0 - 2 WBC 0-5 {/hpf} (Normal) Range: 0 - 5 :56 VITAMIN B-12 (CYANOCOBALAMIN) Comments: PATIENT NOT FASTINGPERFORMED BY: ES Holdingsrp SoloLearn MurrayTheCommentorSentara Albemarle Medical Center [id number] ([id number]) Vitamin B12 451 pg/mL (Normal) Range: 232-1245 Comments: Please note reference interval change :56 TSH (00971) Comments: PATIENT NOT FASTINGPERFORMED BY: ES Holdingsrp Yvoyzb5935 Evergageblin [place] [id number] TSH 2.910 {uIU/mL} (Normal) Range: 0.450-4.500 :56 URINALYSIS, W/ MICRO (91687) Comments: PATIENT NOT FASTINGPERFORMED BY: [facility]6370 [facility] [id number] Microscopic Examination See below: (Normal) Comments: Microscopic was indicated and was performed. Nitrite, Urine Negative (Normal) Urobilinogen,Semi-Qn 0.2 mg/dL (Normal) Range: 0.2-1.0 Bilirubin Negative (Normal) Occult Blood 1+ (Abnormal) Ketones Negative (Normal) Glucose Negative (Normal) Protein Negative (Normal) WBC Esterase Trace (Abnormal) Appearance Clear (Normal) Urine-Color Yellow (Normal) pH 7.0 (Normal) Range: 5.0-7.5 Specific [place] 1.017 (Normal) Range: 1.005-1.030 :56 MICROALBUMIN: CREATININE RATIO Comments: PATIENT NOT FASTINGPERFORMED BY: Seeker WirelessSelect Specialty Hospital-Saginaw6370 [facility] [id number] ([id number]) AND (71090) Microalb/Creat Ratio 7.4 {mg/g_creat} (Normal) Range: 0.0-30.0 Microalbumin, Urine 5.0 ug/mL (Normal) Creatinine, Urine 68.0 mg/dL (Normal) :56 METABOLIC PANEL, COMPREHENSIVE Comments: PATIENT NOT FASTINGPERFORMED BY: PayUsLessRx.comAtlantiCare Regional Medical Center, Atlantic City CampusPdetpg8218 [facility] [id number] ([id number]) ALT (SGPT) 18 [iU]/L (Normal) Range: 0-32 [...] Glucose, Serum 87 mg/dL (Normal) Range: 65-99 44-Roi-020919:56 CBC W/AUTO DIFF WBC (02815) Comments: PATIENT NOT FASTINGPERFORMED BY: [facility] Jvnkeh1367 [facility] [id number] Immature Grans (Abs) 0.0 {x10E3/uL} (Normal) Range: [...] Range: 3.4-10.8 :38 Prothrombin Time w/INR Comments: [facility] [address] [place], [address] INR 2.0 (Normal) PROTIME 22.0 s (Abnormal) Range: 11.7-14.9 :21 Prothrombin Time w/INR Comments: [facility] [address] [place], [address] INR 2.5 (Normal) PROTIME 26.0 s (Abnormal) Range: 11.7-14.9 :12 Lipid Profile Comments: Order Date: 12/04/16Order Info: [id number] - *Hepatic Function PanelOrder Info: [id number] - *Lipid Profile CC PCPComments: 12 hours fasting, may have water.[facility] O[address]qkvcuvv1[address] [place], [address] VLDL 21 mg/dL (Normal) Range: 5-40 LDL [...] Info: 0788-1 - *Hepatic Function PanelOrder Info: [id number] - *Lipid Profile CC PCPComments: 12 hours fasting, may have water.[facility] Qcgfsynibt4678 [address] [place], [place], [phone] D BILI 0.09 mg/dL (Normal) Range: 0.00-0.30 T BILI 0.50 mg/dL (Normal) Range: 0.20-1.00 ALT 21 U/L (Normal) Range: 12-78 ALK P 78 U/L (Normal) Range: 45-117 AST 16 U/L (Normal) Range: 15-37 GLOB 3.1 g/dL (Normal) Range: 2.2-4.2 ALB 3.5 g/dL (Normal) Range: 3.4-5.0 Comments: Please note revised Albumin AND Globulin reference rangeeffective 2017. T PROT 6.6 g/dL (Normal) Range: 6.4-8.2 01-Qgo-435771:39 Prothrombin Time w/INR Comments: [facility] [address]gesmq[address] [place], [place], [phone] INR 2.4 (Normal) PROTIME 24.9 s (Abnormal) Range: 11.7-14.9 :43 Prothrombin Time w/INR Comments: [facility] [address]argkh[address] [place], [place], [phone] INR 2.2 (Normal) PROTIME 23.9 s (Abnormal) Range: 11.7-14.9 :22 CBC W/Diff, Automated Comments: [address] [place], [place], [phone] ; OV 9/5 Absolute Lymph 2.11 {X10_3/ul} [...] Range: 4.4-11.0 09-Apr-20179:22 Comprehensive Metabolic Profil Comments: [facility] Cgcaabckgu2411 [place], [place], [phone] GAP 7 (Normal) Range: 5-15 CO2 33.0 [...] 70-110 :22 Thyroid Stim Hormone (TSH) Comments: [facility] Shjudlzqrr4605 [address] [place], [address] TSH 3.52 {uIU/mL} (Normal) Range: 0.358-3.74 61-Duj-689898:37 Prothrombin Time w/INR Comments: [facility] Gsrpyvyhqq5419 [address] [place], [phone] INR 2.1 (Normal) PROTIME 22.4 s (Abnormal) Range: 11.7-14.9 26-Wvw-537108:12 Prothrombin Time w/INR Comments: PT ORDER IS AND T4 IS [facility] Eacyyljuqv6291 [address] [place], [phone](745) INR 2.1 (Normal) PROTIME 23.1 s (Abnormal) Range: 11.7-14.9 43-Acu-848277:11 T4 Total, Thyroxin Comments: Order Date: 02/19/17Order Info: [id number] - *T4 (Total)Comments: Reason:Order Info: [id number] - *[facility] Nzyttpsboz1820 [address] [place], [phone] T4 THYROXIN 7.2 ug/dL (Normal) Range: 4.8-13.9 87-Zrm-870578:11 Thyroid Stim Hormone (TSH) Comments: Order Date: 02/19/17Order Info: [id number] - *T4 (Total)Comments: Reason:Order Info: [id number] - *TSHWMount [facility] Kksgeawbus1735 [address] [place], [phone] TSH 1.56 {uIU/mL} (Normal) Range: 0.358-3.74 :37 Prothrombin Time w/INR Comments: [facility] Jvevvcwsgi54[address] [place], [phone] INR 1.9 (Normal) PROTIME 21.4 s (Abnormal) Range: 11.7-14.9 8-Aju-091082:50 Prothrombin Time w/INR Comments: [facility] Ydnjbzphym8906 [place], [address] INR 2.0 (Normal) PROTIME 21.6 s (Abnormal) Range: 11.7-14.9 94-Znb-485068:37 Prothrombin Time w/INR Comments: [facility] O[address] [place], [phone] INR 2.5 (Normal) PROTIME 25.6 s (Abnormal) Range: 11.7-14.9 47-Cba-366191:18 Prothrombin Time w/INR Comments: [facility] Bxpgzonokn1330 [address] [place], [phone] INR 2.1 (Normal) PROTIME 22.5 s (Abnormal) Range: 11.7-14.9 22-Opw-522719:17 Lipid Profile Comments: Order Date: 06/02/16Order Info: [id number]- [id number] - *Hepatic Function PanelDR.TOVA HOLLIEST. MARY'S REGIONAL MEDICAL CENTERMARIMAR LIPID LIVEROrder Date: 06/02/16Order Info: [id number] - *Lipid Profile CC PCPComments: 12 hours fasting, may have watred lalaPaul[facility] Cffecdqapd2085 [address] [place], [phone] VLDL 31 mg/dL (Normal) Range: 5-40 LDL [...] 200-240 mg/dL Borderline >240 mg/dL High Risk 63-Mlu-709917:17 Liver Profile Comments: Order Date: 06/02/16Order Info: [id number]- 1 - *Hepatic Function PanelDR.TOVA PTMICHELLE LIPID LIVEROrder Date: 06/02/16Order Info: [id number] - *Lipid Profile CC PCPComments: 12 hours fasting, may have mary lalaPaulding [facility] Hospital Sscshusawm9108 [place], [address] D BILI 0.09 mg/dL (Normal) Range: 0.00-0.30 T BILI 0.50 mg/dL (Normal) Range: 0.20-1.00 ALT 28 U/L (Normal) Range: 12-78 ALK P 93 U/L (Normal) Range: 45-117 AST 21 U/L (Normal) Range: 15-37 GLOB 3.4 g/dL (Normal) Range: 2.3-3.5 ALB 4.0 g/dL (Normal) Range: 3.4-5.0 T PROT 7.4 g/dL (Normal) Range: 6.4-8.2 8-Ruk-752745:32 Prothrombin Time w/INR Comments: [facility] [address] [place], [address] ; [facility] manages INR 1.8 (Normal) PROTIME 20.2 s (Abnormal) Range: 11.7-14.9 84-Xqj-176894:09 Prothrombin Time w/INR Comments: [facility] Zfgtofmjum3008 [place], [address] ; another doc INR 2.1 (Normal) PROTIME 23.1 s (Abnormal) Range: 11.7-14.9 34-Thk-702657:10 Metabolic Panel, Comprehensive Comments: today; PATIENT NOT FASTINGPERFORMED BY: ZAINAB LabCoAtlantiCare Regional Medical Center, Atlantic City CampusQgzaga8658 [facility] [id number] ([id number]) ALT (SGPT) 16 [iU]/L (Normal) Range: 0-32 [...] Glucose, Serum 89 mg/dL (Normal) Range: 65-99 87-Afp-678145:26 Prothrombin Time w/INR Comments: [facility] Agxgqutdpk9834 [place], [address] INR 2.2 (Normal) PROTIME 23.7 s (Abnormal) Range: 11.7-14.9 14-Ybf-907990:52 CBC-Complete Blood Cnt No Diff Comments: [facility] Gjymubpkhh5152 [place], [address] ; sibilia MPV 10.8 fL [...] 4.2-5.4 WBC 7.4 K/mm3 (Normal) Range: 4.4-11.0 59-Faj-897577:58 Prothrombin Time w/INR Comments: [facility] Flhtlfhltz2108 [place], [address] INR 2.0 (Normal) PROTIME 22.4 s (Abnormal) Range: 11.7-14.9 73-Jxa-917313:49 Prothrombin Time w/INR Comments: [facility] Zdepfjreff2866 [place], [address] INR 2.0 (Normal) PROTIME 22.3 s (Abnormal) Range: 11.7-14.9 93-Efm-113572:54 CBC WITH MANUAL DIFF ([id number]) Comments: PATIENT NOT FASTINGPERFORMED BY: LabCoAtlantiCare Regional Medical Center, [facility] CampusXnzdmv0590 [facility] [id number] Immature Grans (Abs) 0.0 {x10E3/uL} (Normal) Range: [...] 3.77-5.28 WBC 6.2 {x10E3/uL} (Normal) Range: 3.4-10.8 34-Omz-832970:54 Metabolic Panel, Comprehensive Comments: PATIENT NOT FASTINGPERFORMED BY: LabCoAtlantiCare Regional Medical Center, [facility] CampusBjbpkp2244 [facility] [id number] ([id number]) ALT (SGPT) 18 [iU]/L (Normal) Range: 0-32 [...] Glucose, Serum 86 mg/dL (Normal) Range: 65-99 19-Trt-024657:54 TSH (58662) Comments: PATIENT NOT FASTINGPERFORMED BY: LabCoAtlantiCare Regional Medical Center, [facility] CampusXwouvg6045 [facility] [id number] TSH 2.890 {uIU/mL} (Normal) Range: 0.450-4.500 96-Rcr-632236:23 Prothrombin Time w/INR Comments: [facility] [address] [place], [address] ; managed by cardio INR 2.6 (Normal) PROTIME 27.4 s (Abnormal) Range: 11.7-14.9 31-Pgz-17825:54 Prothrombin Time w/INR Comments: [facility] Ailgalzpjh[address] [place], [address] ; another doc INR 2.0 (Normal) PROTIME 22.3 s (Abnormal) Range: 11.7-14.9 :53 Lipid Profile Comments: Order Date: 05/22/16 Order #: [id number] County Hospital Bkqrccffxl6758 [address] [place], [place], [address] VLDL 21 mg/dL (Normal) Range: 5-40 LDL [...] Profile Comments: Order Date: 05/22/16 Order #: [id number] County Hospital Wbrvkruglk7888 [address] [place], [place], [address] D BILI < 0.05 mg/dL (Normal) Range: [...] Range: 6.4-8.2 :09 Prothrombin Time w/INR Comments: [facility] Pearmzpkax2420 [place], [address] INR 2.5 (Normal) PROTIME 26.3 s (Abnormal) Range: 11.7-14.9 :59 Prothrombin Time w/INR Comments: [facility] Nsejynmgrs[address] [place], [address] ; managed by cardio INR 2.9 (Normal) PROTIME 29.3 s (Abnormal) Range: 11.7-14.9 :05 Prothrombin Time w/INR Comments: [facility] Ldokawksnv[address] [place], [address] INR 2.0 (Normal) PROTIME 22.3 s (Abnormal) Range: 11.7-14.9 :11 Prothrombin Time w/INR Comments: [facility] Bghqfnrcvv[address] [place], [address] INR 2.7 (Normal) Comments: ADDENDA: managed by cardio PROTIME 27.7 s (Abnormal) Range: 11.7-14.9 :14 Prothrombin Time w/INR Comments: [facility] Gziylxbdra[address] [place], [address] ; managed by Tova INR 2.7 (Normal) PROTIME 28.1 s (Abnormal) Range: 11.7-14.9 :45 Prothrombin Time w/INR Comments: [facility] Ypnygwiaxs[address] [place], [address] ; managed by cardio INR 3.1 (Normal) PROTIME 31.3 s (Abnormal) Range: 11.7-14.9 :27 Prothrombin Time w/INR Comments: [facility] Znflojrutz[address] [place], [address] ; managed by cardio INR 3.1 (Normal) PROTIME 31.1 s (Abnormal) Range: 11.7-14.9 :22 Prothrombin Time w/INR Comments: [facility] Ludhzntdec[address] [place], [address] INR 2.6 (Normal) PROTIME 27.4 s (Abnormal) Range: 11.7-14.9 16-Jan-20169:08 Prothrombin Time w/INR Comments: [facility] Gsyixxnqan8804 [place], [address] ; managed with Dr. paz INR 4.1 (Abnormal) Comments: CRITICAL VALUE REPEATED AND VERIFIED. [facility]ED TO [facility]01/16/16 1251 Elza Hinojosa.RESULTS READ BACK BY SAME . PROTIME 38.2 s (Abnormal) Range: 11.7-14.9 05-Jie-110547:11 Microscopic Examination Comments: PATIENT WAS FASTINGPERFORMED BY: 3ClickEMR CorporationSentara Albemarle Medical Center [id number] Bacteria None seen (Normal) Mucus Threads Present (Normal) Epithelial Cells (non renal) 0-10 {/hpf} (Normal) Range: 0 - 10 RBC 11-30 {/hpf} (Abnormal) Range: 0 - 2 WBC 0-5 {/hpf} (Normal) Range: 0 - 5 34-Day-540667:11 MICROALBUMIN: CREATININE RATIO Comments: PATIENT WAS FASTINGPERFORMED BY: Zumbox70 EvergageSentara Albemarle Medical Center [id number] (16105) AND (77192) Microalb/Creat Ratio 11.4 {mg/g_creat} (Normal) Range: 0.0-30.0 Microalbumin, Urine 12.1 ug/mL (Normal) Comments: Please note reference interval change Creatinine, Urine 106.3 mg/dL (Normal) Comments: Please note reference interval change :11 URINALYSIS (07500) Comments: PATIENT WAS FASTINGPERFORMED BY: [email or web address] [facility] [id number] Microscopic Examination See below: (Normal) Comments: Microscopic was indicated and was performed. Nitrite, Urine Negative (Normal) Urobilinogen,Semi-Qn 0.2 mg/dL (Normal) Range: 0.2-1.0 Bilirubin Negative (Normal) Occult Blood 2+ (Abnormal) Ketones Negative (Normal) Glucose Negative (Normal) Protein Negative (Normal) WBC Esterase Negative (Normal) Appearance Clear (Normal) Urine-Color Yellow (Normal) pH 7.0 (Normal) Range: 5.0-7.5 Specific [place] 1.018 (Normal) Range: 1.005-1.030 75-Nup-775695:11 Metabolic Panel, Comments: PATIENT WAS FASTINGPERFORMED BY: [email or web address] [facility] [id number] Information: [id number] [facility] (44614) ALT (SGPT) 14 [iU]/L (Normal) Range: 0-32 [...] Glucose, Serum 91 mg/dL (Normal) Range: 65-99 02-Dhi-055705:11 TSH (17864) Comments: PATIENT WAS FASTINGPERFORMED BY: [email or web address] [facility] [id number] TSH 2.260 {uIU/mL} (Normal) Range: 0.450-4.500 :17 Prothrombin Time w/INR Comments: [facility] Wzutwujszh4890 [place], [address] INR 2.8 (Normal) PROTIME 28.4 s (Abnormal) Range: 11.7-14.9 :40 Lipid Profile Comments: [facility] Iongubvqug7544 [place], [address] VLDL 22 mg/dL (Normal) Range: 5-40 [...] mg/dL High Risk :40 Liver Profile Comments: [facility] Szaovxlmsq2784 [place], [address] D BILI 0.10 mg/dL (Normal) Range: 0.00-0.30 T BILI 0.60 mg/dL (Normal) Range: 0.20-1.00 ALT 26 U/L (Normal) Range: 12-78 ALK P 86 U/L (Normal) Range: 50-136 AST 20 U/L (Normal) Range: 15-37 GLOB 3.4 g/dL (Normal) Range: 2.3-3.5 ALB 3.9 g/dL (Normal) Range: 3.4-5.0 T PROT 7.3 g/dL (Normal) Range: 6.4-8.2 :26 Prothrombin Time w/INR Comments: [facility] Rlcswjgvjv1690 [place], [address] INR 2.6 (Normal) Comments: ADDENDA: handled by cardio PROTIME 27.3 s (Abnormal) Range: 11.7-14.9 :40 Prothrombin Time w/INR Comments: [facility] [address]vwxf[address] [place], [address] INR 2.4 (Normal) PROTIME 26.4 s (Abnormal) Range: 11.7-14.9 :03 Prothrombin Time w/INR Comments: [facility] Bmbabdbomx[address] [place], [address] ; per pop up in EMR cardio manages INR INR 2.2 (Normal) PROTIME 24.5 s (Abnormal) Range: 11.7-14.9 :51 Prothrombin Time w/INR Comments: [facility] Ubsgagkpod[address] [place], [address] INR 1.6 (Normal) PROTIME 19.0 s (Abnormal) Range: 11.7-14.9 Comments: ADDENDA: managed by cardio :33 Prothrombin Time w/INR Comments: [facility] Pl[address]llbwgc[address] [place], [address] ; handled by cardio INR 2.1 (Normal) PROTIME 24.0 s (Abnormal) Range: 11.7-14.9 :02 Prothrombin Time w/INR Comments: [facility] Fufkrmqkoh[address] [place], [address] INR 2.2 (Normal) PROTIME 24.1 s (Abnormal) Range: 11.7-14.9 :37 Prothrombin Time w/INR Comments: [facility] V[address]zq[address] [place], [address] INR 2.5 (Normal) PROTIME 26.7 s (Abnormal) Range: 11.7-14.9 :44 Prothrombin Time w/INR Comments: [facility] Fzqwclsjpg[address] [place], [address] INR 2.2 (Normal) PROTIME 24.6 s (Abnormal) Range: 11.7-14.9 :15 Prothrombin Time w/INR Comments: [facility] Bcydevtoma5981 [address] [place], [address] INR 1.6 (Normal) PROTIME 19.4 s (Abnormal) Range: 11.7-14.9 :36 Prothrombin Time w/INR Comments: [facility] Aajkezerbd4224 [address] [place], [address] INR 1.2 (Normal) PROTIME 15.3 s (Abnormal) Range: 11.7-14.9 :02 Prothrombin Time w/INR Comments: [facility] Yrscyesdvf0534 [place], [address] INR 2.7 (Normal) PROTIME 29.0 s (Abnormal) Range: 11.7-14.9 :47 Lipid Profile Comments: [facility] Latgcikwic2047 [place], [address] VLDL 20 mg/dL (Normal) Range: 5-40 [...] mg/dL High Risk :47 Liver Profile Comments: [facility] Rgnqtwpbrt2884 [place], [address] D BILI 0.09 mg/dL (Normal) Range: [...] Auto Diff Comments: PATIENT NOT FASTINGPERFORMED BY: LabCoAtlantiCare Regional Medical Center, [facility] CampusJtztkq8071 [facility] [id number] Information: [id number] (44241) Immature Grans (Abs) 0.0 {x10E3/uL} (Normal) Range: [...] 3.77-5.28 WBC 6.2 {x10E3/uL} (Normal) Range: 3.4-10.8 3-Xkq-349270:11 CALCIFEDIOL (11953) Comments: PATIENT NOT FASTINGPERFORMED BY: PayUsLessRx.comAtlantiCare Regional Medical Center, [facility] CampusLvhdsc7608 [facility] [id number] Vitamin D, 25-Hydroxy 38.9 ng/mL (Normal) Range: 30.0-100.0 Comments: Vitamin D deficiency has been defined by the [place] of[place]icine and an Endocrine Society practice guideline as alevel of serum 25-OH vitamin D less than 20 ng/mL (1,2).The Endocrine Society went on to further define vitamin Dinsufficiency as a level between 21 and 29 ng/mL (2).1. IOM ([place] of Medicine). 2010. Dietary reference intakes for calcium and D. [place]: The National Academies Press.2. Roberto MF, Brody OCHOA, Maribell CADENA, et al. Evaluation, treatment, and prevention of vitamin D deficiency: an Endocrine Society clinical practice guideline. JCEM. 2010; 96(7):1911-30. 5-Zin-636092:11 VITAMIN B12 AND FOLATES Comments: PATIENT NOT FASTINGPERFORMED BY: [facility] Ppjqbk2172 [facility] [id number] ([id number]) Folate (Folic Acid), Serum 10.4 ng/mL (Normal) Comments: A serum folate concentration of less than 3.1 ng/mL isconsidered to represent clinical deficiency. Vitamin B12 1651 pg/mL (Abnormal) Range: 211-946 7-Map-620652:11 Metabolic Panel, Comprehensive Comments: PATIENT NOT FASTINGPERFORMED BY: [employer] Pryybq4375 [facility] [id number] ([id number]) ALT (SGPT) 15 [iU]/L (Normal) Range: 0-32 [...] Range: 65-99 09-May-20159:53 Prothrombin Time w/INR Comments: [facility] [address]us[address] [place] [address], [address] INR 1.9 (Normal) PROTIME 22.0 s (Abnormal) Range: 11.7-14.9 56-Zlg-078092:40 Prothrombin Time w/INR Comments: Test performed at:[facility] Jewugfiton[address] [place] [address] INR 1.3 (Normal) PROTIME 16.3 s (Abnormal) Range: 11.7-14.9 58-Jrl-548462:03 Prothrombin Time w/INR Comments: Test performed at:[facility] [address]jpt[address]un[address] [place] [address] INR 1.7 (Normal) PROTIME 20.4 s (Abnormal) Range: 11.7-14.9 5-Iyx-599154:26 Prothrombin Time w/INR Comments: Test performed at:[facility] [address]qcub[address] [place] [address] INR 1.2 (Normal) Comments: ADDENDA: managed by dr paz PROTIME 15.8 s (Abnormal) Range: 11.7-14.9 23-Pjc-737846:28 Prothrombin Time w/INR Comments: Test performed at:[facility] [address]uvwr[address] [place] [address] INR 1.2 (Normal) PROTIME 15.8 s (Abnormal) Range: 11.7-14.9 :54 Prothrombin Time w/INR Comments: Test performed at:[facility] Vvwdjnscwq1672 [place] [address] INR 2.5 (Normal) PROTIME 27.3 s (Abnormal) Range: 11.7-14.9 8-Xcq-156768:16 Prothrombin Time w/INR Comments: Test performed at:[facility] [address]kvux[address] [place] [address] INR 2.0 (Normal) PROTIME 23.2 s (Abnormal) Range: 11.7-14.9 59-Wse-034016:29 Prothrombin Time w/INR Comments: Test performed at:[facility] [address] [place] [address] INR 2.8 (Normal) PROTIME 29.3 s (Abnormal) Range: 11.7-14.9 47-Vmo-737708:06 Prothrombin Time w/INR Comments: Test performed at:[facility] [address] [place] [address] ; Dr Bella manages INR 2.1 (Normal) PROTIME 24.0 s (Abnormal) Range: 11.7-14.9 :45 Prothrombin Time w/INR Comments: Test performed at:[facility] [address] [place] [address] ; ordered by another INR 1.3 (Normal) PROTIME 16.5 s (Abnormal) Range: 11.7-14.9 :00 Prothrombin Time w/INR Comments: Test performed at:[facility] [address] [place] [address] INR 0.9 (Normal) PROTIME 12.7 s (Normal) Range: 11.7-14.9 0-Pqv-967291:05 Vitamin B12 and Folate Comments: PATIENT NOT FASTINGPERFORMED BY: [facility]6370 [facility] [id number] Information: [id number] Folate (Folic Acid), 7.8 ng/mL (Normal) Comments: A serum folate concentration of less than 3.1 ng/mL isconsidered to represent clinical deficiency. Serum Vitamin B12 1883 pg/mL Range: 211-946 (Abnormal) : Vitamin D, 42.8 ng/mL (Normal) Comments: PATIENT NOT FASTINGPERFORMED BY: LabCoAtlantiCare Regional Medical Center, [facility] CampusCeqjoi6822 [facility] [id number] 05 25-Hydroxy Range: 30.0-100.0 Comments: Vitamin D deficiency has been defined by the [place] of[place]icine and an Endocrine Society practice guideline as alevel of serum 25-OH vitamin D less than 20 ng/mL (1,2).The Endocrine Society went on to further define vitamin Dinsufficiency as a level between 21 and 29 ng/mL (2).1. IOM ([place] of [employer]). 2010. Dietary reference intakes for calcium and D. [place]: The National Academies Press.2. Roberto MF, Brody [place], Maribell CADENA, et al. Evaluation, treatment, and prevention of vitamin D deficiency: an Endocrine Society clinical practice guideline. JCEM. 2010; 96(7):1911-30. :04 CBC W/Diff, Automated Comments: Test performed at:[facility] [id number] [place] [address] Absolute Lymph 2.41 {X10_3/ul} (Normal) [...] 4.2-5.4 WBC 6.5 K/mm3 (Normal) Range: 4.4-11.0 [id number] Basic Metabolic Profile (BMP) Comments: Test performed at:[facility] [id number] [place] [address] GAP 4 (Abnormal) Range: 5-15 CO2 33.0 mmol/L (Abnormal) Range: 21.0-32.0 CL 103 mmol/L (Normal) Range: 98-107 K 4.8 mmol/L (Normal) Range: 3.5-5.1 NA 140 mmol/L (Normal) Range: 136-145 CA 8.8 mg/dL (Normal) Range: 8.5-10.1 BUN/CRE 25.8 {RATIO} (Abnormal) Range: 10-20 CREAT,SERUM 1.2 mg/dL (Abnormal) Range: 0.6-1.0 BUN 31 mg/dL (Abnormal) Range: 7-18 GLU 108 mg/dL (Normal) Range: 70-110 [id number] Basic Metabolic Profile (BMP) Comments: Test performed at:[facility] [id number] [place], [place] [id number] GAP 4 (Abnormal) Range: 5-15 CO2 28.0 mmol/L (Normal) Range: 21.0-32.0 CL 106 mmol/L (Normal) Range: 98-107 K 4.3 mmol/L (Normal) Range: 3.5-5.1 NA 138 mmol/L (Normal) Range: 136-145 CA 8.8 mg/dL (Normal) Range: 8.5-10.1 BUN/CRE 26.0 {RATIO} (Abnormal) Range: 10-20 CREAT,SERUM 1.0 mg/dL (Normal) Range: 0.6-1.0 BUN 26 mg/dL (Abnormal) Range: 7-18 GLU 93 mg/dL (Normal) Range: 70-110 26-Jii-678913:45 CBC W/Diff, Automated Comments: Test performed at:[facility] Ytxjdcbbkm8748 [place] [address] Absolute Lymph 2.60 {X10_3/ul} (Normal) Range: 0.83-4.51 [...] slightly hemolyzed. Results may be affected.Test performed at:[facility] Haaxpqgise1120 [facility] [address] [place], [place] [address] VLDL 19 mg/dL (Normal) Range: 5-40 LDL [...] slightly hemolyzed. Results may be affected.Test performed at:[facility] Gjmcitluml7188 [address] [place], [place] [id number] D BILI < 0.05 mg/dL (Normal) Range: [...] CHOL 226 mg/dL (Abnormal) Comments: <200 mg/dL Igkroodyu033-756 mg/dL Borderline>240 mg/dL High Risk :47 LIVER [...] :47 TSH 3.05 {uIU/mL} (Normal) Range: 0.358-3.74 22-Wdi-222547:00 LORNA CULTURE-OTHER (57238) Comments: PATIENT NOT FASTINGPERFORMED BY: [facility]CoAtl[facility] CampusKjwzub9497 [facility] [id number] Information: SRC:THRT [id number] Result 1 RRF (Normal) Comments: Routine respiratory jesus Upper Respiratory Culture Final report (Normal) 69-Yrv-28393:21 Rapid Strep Test, Office (51352) Rapid Strep Test, Office Negative (Normal) 42-Glj-66756:00 BILAT SCRN DIGITAL & CAD Radiology Report [...] Jones M.D.January 04, 2013 at 10:41:52 AM [id number] Signed GP/GP If you are the referring physician and would like to consult with theradiologist who provided this interpretation, please contact Ne Huang at [phone]. If this radiologist is unavailable, youwill be directed to another radiologist to assist. If you are a patient with a question regarding this report, pleasecontactyour referring physician directly. Professional Interpretation Provided By: [employer], Phone , These documents contain legally protected [...] 01/04/13 1044 Sign by: Henry Jones MD 5-Lmo-752708:19 Hepatic Function Panel Comments: PATIENT WAS FASTINGPERFORMED BY: [facility]6370 [facility] [id number] Information: [id number] (7) ALT (SGPT) 23 [iU]/L (Normal) Range: 0-32 AST (SGOT) 21 [iU]/L (Normal) Range: 0-40 Alkaline Phosphatase, S 74 [iU]/L (Normal) Range: 25-165 Bilirubin, Direct 0.10 mg/dL Range: 0.00-0.40 (Normal) Albumin, Serum 4.3 g/dL (Normal) Range: 3.5-4.8 Bilirubin, Total 0.3 mg/dL (Normal) Range: 0.0-1.2 Protein, Total, Serum 6.7 g/dL (Normal) Range: 6.0-8.5 Written Authorization WAR (Normal) Comments: PATIENT WAS FASTINGPERFORMED BY: [place] [id number] [facility] [id number] :19 Comments: Written Authorization Received.Authorization received from DR BRO 01-10-3895Cbvrom by Rachelle Porter :19 Metabolic Panel, Comprehensive Comments: PATIENT WAS FASTINGPERFORMED BY: [place] [id number] [facility] [id number] (62651) ALT (SGPT) 22 [iU]/L (Normal) Range: 0-32 [...] Glucose, Serum 89 mg/dL (Normal) Range: 65-99 3-Jjz-903546:19 CBC with manual diff Comments: PATIENT WAS FASTINGPERFORMED BY: [facility]6370 [facility] [id number] Information: [id number] (87308) Immature Grans (Abs) 0.0 {x10E3/uL} (Normal) Range: [...] 3.77-5.28 WBC 4.6 {x10E3/uL} (Normal) Range: 4.0-10.5 3-Rfq-630974:19 Lipid Panel (03212) Comments: PATIENT WAS FASTINGPERFORMED BY: vMobo [facility] [id number] LDL/HDL Ratio 1.3 {ratio_units} (Normal) Range: 0.0-3.2 Cholesterol, Total 153 mg/dL (Normal) Range: 100-199 HDL Cholesterol 60 mg/dL (Normal) Comments: According to ATP-III Guidelines, HDL-C >59 mg/dL is considered anegative risk factor for CHD. LDL Cholesterol Calc 80 mg/dL (Normal) Range: 0-99 Triglycerides 65 mg/dL (Normal) Range: 0-149 VLDL Cholesterol Hector 13 mg/dL (Normal) Range: 5-40 2-Pii-489293:19 TSH (35993) Comments: PATIENT WAS FASTINGPERFORMED BY: Zumbox70 [facility] [id number] TSH 2.650 {uIU/mL} (Normal) Range: 0.450-4.500 06-Zng-588111:14 Urinalysis, Office (15057) UA - BILIRUBIN Negative (Normal) UA - BLOOD Hemolyzed Small (Normal) UA - GLUCOSE Negative (Normal) UA - KETONES Negative mg/dL (Normal) UA - LEUKOCYTE ESTERASE Negative (Normal) UA - NITRITE Negative (Normal) UA - PH 7.0 (Normal) UA - PROTEIN Negative mg/dL (Normal) UA - SPECIFIC GRAVITY 1.015 (Normal) URINE UROBILINGN REYNA TIMED Normal mg/dL (Normal) 38-Zbc-667174:10 TSH (THYROID STIMULATING Comments: PATIENT WAS FASTINGPERFORMED BY: [employer] Hmqtof9005 [facility] [id number] HORMONE) (17863) TSH 2.500 {uIU/mL} (Normal) Range: 0.450-4.500 :10 CALCIFEDIOL (44709) Comments: PATIENT WAS FASTINGPERFORMED BY: [employer] Jqwmft6282 [facility] [id number] Vitamin D, 25-Hydroxy 48.1 ng/mL (Normal) Range: 30.0-100.0 Comments: Vitamin D deficiency has been defined by the [place] ofMedicine and an Endocrine Society practice guideline as alevel of serum 25-OH vitamin D less than 20 ng/mL (1,2).The Endocrine Society went on to further define vitamin Dinsufficiency as a level between 21 and 29 ng/mL (2).1. IOM ([place] of Medicine). 2010. Dietary reference intakes for calcium and D. [place]: The National Academies Press.2. Roberto MF, Brody OCHOA, Maribell CADENA, et al. Evaluation, treatment, and prevention of vitamin D deficiency: an Endocrine Society clinical practice guideline. JCEM. 2010; 96(7):1911-30. 43-Tsq-341673:10 Lipid Panel (23489) Comments: PATIENT WAS FASTINGPERFORMED BY: [employer]6370 [facility] [id number] LDL/HDL Ratio 2.3 {ratio_units} (Normal) Range: 0.0-3.2 LDL Cholesterol Calc 117 mg/dL (Abnormal) Range: 0-99 VLDL Cholesterol Hector 16 mg/dL (Normal) Range: 5-40 HDL Cholesterol 52 mg/dL (Normal) Comments: According to ATP-III Guidelines, HDL-C >59 mg/dL is considered anegative risk factor for CHD. Triglycerides 78 mg/dL (Normal) Range: 0-149 Cholesterol, Total 185 mg/dL (Normal) Range: 100-199 62-Ezm-312233:10 HEPATIC FUNCTION PANEL Comments: PATIENT WAS FASTINGPERFORMED BY: PayUsLessRx.comAtlantiCare Regional Medical Center, [facility] CampusAckefu9843 [facility] [id number] Information: [id number] (98845) ALT (SGPT) 21 [iU]/L (Normal) Range: 0-40 AST (SGOT) 20 [iU]/L (Normal) Range: 0-40 Alkaline Phosphatase, S 75 [iU]/L (Normal) Range: 25-165 Bilirubin, Direct 0.09 mg/dL (Normal) Range: 0.00-0.40 Albumin, Serum 4.0 g/dL (Normal) Range: 3.5-4.8 Bilirubin, Total 0.3 mg/dL (Normal) Range: 0.0-1.2 Protein, Total, Serum 6.5 g/dL (Normal) Range: 6.0-8.5 :41 TSH (69471) Comments: PATIENT NOT FASTINGPERFORMED BY: [address] [id number] Information: [id number] TSH 3.750 {uIU/mL} (Normal) Range: 0.450-4.500 :39 Prothrombin Time (PT) Comments: PERFORMED BY: [address] [id number] Prothrombin Time 39.0 {sec} (Abnormal) Range: 8.7-11.5 INR 3.6 (Abnormal) Range: 0.8-1.2 Comments: Client Requested Flag Reference interval is for non- anticoagulated patients. . Suggested INR therapeutic ra nge for Vitamin K antagonist therapy: Standard Dose (moderate intensity therapeutic range): 2.0 - 3.0 Higher intensity therapeutic range 2.5 - 3.5 :26 PT (PROTHROMBIN TIME) Comments: PATIENT NOT FASTINGPERFORMED BY: [facility]6370 [facility] [id number] Information: [id number] CC:[id number] (63656) Prothrombin Time 54.3 {sec} (Abnormal) Range: 8.7-11.5 [...] (Activated Partial Comments: PATIENT NOT FASTINGPERFORMED BY: [facility]6370 [facility] [id number] Thromboplastin Time) (44021) aPTT 39 {sec} (Abnormal) Range: 24-33 Comments: This test has not been validated for monitoring unfractionated heparintherapy. aPTT-based therapeutic ranges for unfractionated heparintherapy have not been established. For general guidelines onHeparin monitoring, refer to the [facility] Directory of Services. :51 PT (Prothrobim Time) Comments: PATIENT NOT FASTINGPERFORMED BY: [place] 2962470 [facility] [id number] Information: [id number] CC:[id number] (49463) Prothrombin Time 26.1 {sec} (Abnormal) Range: 8.7-11.5 INR 2.4 (Abnormal) Range: 0.8-1.2 Comments: Reference interval is for non-anticoagulated patients. . Suggested INR therapeutic range for Vitamin K anta gonist therapy: Standard Dose (moderate intensity therapeutic range): 2.0 - 3.0 Higher intensity therapeutic range 2.5 - 3.5 :43 HEPATIC FUNCTION PANEL Comments: PATIENT NOT FASTINGPERFORMED BY: [facility]6370 [facility] [id number] Information: [id number] (17288) ALT (SGPT) 25 [iU]/L (Normal) Range: 0-40 AST (SGOT) 19 [iU]/L (Normal) Range: 0-40 Alkaline Phosphatase, S 73 [iU]/L (Normal) Range: 25-165 Albumin, Serum 4.4 g/dL (Normal) Range: 3.5-4.8 Bilirubin, Direct 0.09 mg/dL (Normal) Range: 0.00-0.40 Bilirubin, Total 0.3 mg/dL (Normal) Range: 0.0-1.2 Protein, Total, Serum 6.4 g/dL (Normal) Range: 6.0-8.5 :18 Lipid Panel (21807) Comments: PATIENT NOT FASTINGPERFORMED BY: [employer] Ftnrwh3402 [facility] [id number] LDL/HDL Ratio 1.3 {ratio_units} (Normal) Range: 0.0-3.2 [...] FUNCTION PANEL Comments: PATIENT NOT FASTINGPERFORMED BY: Stellarcasa SA6370 [facility] [id number] Information: [id number] (07626) ALT (SGPT) 60 [iU]/L (Abnormal) Range: 0-40 Alkaline Phosphatase, S 66 [iU]/L (Normal) Range: 25-165 AST (SGOT) 43 [iU]/L (Abnormal) Range: 0-40 Albumin, Serum 4.3 g/dL (Normal) Range: 3.5-4.8 Bilirubin, Direct 0.10 mg/dL (Normal) Range: 0.00-0.40 Bilirubin, Total 0.3 mg/dL (Normal) Range: 0.0-1.2 Protein, Total, Serum 6.7 g/dL (Normal) Range: 6.0-8.5 :18 CALCIFEDIOL (55225) Comments: PATIENT NOT FASTINGPERFORMED BY: [employer] Bqwwfv3197 [facility] [id number] Vitamin D, 25-Hydroxy 57.3 ng/mL (Normal) Range: 32.0-100.0 Comments: Recent studies consider the lower limit of 32.0 ng/mL to be athreshold for optimal health.Baljit HOWELL. J Nutr. 2004;135(2):317-22. 3-Fnr-578915:49 Urinalysis, Office (60475) UA - BILIRUBIN Negative (Normal) UA - BLOOD Hemolyzed Moderate (Normal) UA - GLUCOSE Negative (Normal) UA - KETONES Negative mg/dL (Normal) UA - LEUKOCYTE ESTERASE Negative (Normal) UA - NITRITE Negative (Normal) UA - PH 7.5 (Normal) UA - PROTEIN Negative mg/dL (Normal) UA - SPECIFIC GRAVITY 1.015 (Normal) URINE UROBILINGN REYNA TIMED Normal mg/dL (Normal) 91-Xtx-573503:38 Urinalysis, Office (40235) UA - BILIRUBIN Negative (Normal) UA - [...] Panel, Basic Comments: PATIENT NOT FASTINGPERFORMED BY: LabCoAtlantiCare [facility], [facility] CampusUssymc1678 [facility] [id number] Information: [id number] (66915) Calcium, Serum 9.6 mg/dL (Normal) Range: 8.6-10.2 [...] CULTURE-REYNA COL Comments: PATIENT NOT FASTINGPERFORMED BY: [employer] Dvjnhd3560 [facility] [id number] Information: SRC:UR [id number] COUNT (43143) Result 1 NG36 (Normal) Comments: No growth in 36 - 48 hours. Urine Culture,Comprehensive Final report (Normal) :29 Urinalysis, Office (13615) UA - BILIRUBIN Negative (Normal) UA - BLOOD Non Hemolyzed Moderate (Normal) UA - GLUCOSE Negative (Normal) UA - KETONES Negative mg/dL (Normal) UA - LEUKOCYTE ESTERASE Trace (Normal) UA - NITRITE Negative (Normal) UA - PH 6.0 (Normal) UA - PROTEIN Negative mg/dL (Normal) UA - SPECIFIC GRAVITY 1.020 (Normal) URINE UROBILINGN REYNA TIMED Normal mg/dL (Normal) 00-Tao-035164:44 Microscopic Examination Comments: PATIENT WAS FASTINGPERFORMED BY: [employer] Pegawk1147 [facility] [id number] Bacteria Few (Normal) Mucus Threads Present (Normal) Epithelial Cells (non renal) 0-10 {/hpf} (Normal) Range: 0 - 10 RBC 0-3 {/hpf} (Normal) Range: 0 - 3 WBC 0-5 {/hpf} (Normal) Range: 0 - 5 09-Aiv-758976:44 CALCIFIDIOL (68827) VIT D 25 Comments: PATIENT WAS FASTINGPERFORMED BY: PayUsLessRx.comAtlantiCare Regional Medical Center, [facility] CampusByevrx4220 [facility] [id number] Vitamin D, 25-Hydroxy 28.6 ng/mL (Abnormal) Range: 32.0-100.0 Comments: Recent studies consider the lower limit of 32.0 ng/mL to be athreshold for optimal health.Baljit HOWELL. J Nutr. 2004;135(2):317-22. 69-Uxh-763545:44 Folate (07275) Comments: PATIENT WAS FASTINGPERFORMED BY: [facility] Scgyhn6950 [facility] [id number] Folate (Folic Acid), Serum 12.2 ng/mL (Normal) Comments: Indeterminate: 2.2 - 3.0 Deficient: <2.2 70-Xei-941610:44 VITAMIN B-12 (CYANOCOBALAMIN) Comments: PATIENT WAS FASTINGPERFORMED BY: [facility]6370 [facility] [id number] (10481) Vitamin B12 351 pg/mL (Normal) Range: 211-946 27-Vmf-438746:44 SED RATE ERYTHROCYTE (25925) Comments: PATIENT WAS FASTINGPERFORMED BY: LabSelect [facility]aw6370 [facility] [id number] Sedimentation Rate-Westergren 2 mm/h (Normal) Range: 0-30 43-Nxb-731346:44 RHEUMATOID FACTOR-QUANT (59754) Comments: PATIENT WAS FASTINGPERFORMED BY: [facility] Wireless[facility]6370 [facility] [id number] RA Latex Turbid. 10.5 {IU/mL} (Normal) Range: 0.0-13.9 11-Tnq-698336:44 C-REACTIVE PROTEIN (96844) Comments: PATIENT WAS FASTINGPERFORMED BY: [facility]Select [facility]6370 [facility] [id number] C-Reactive Protein, Quant 0.9 mg/L (Normal) Range: 0.0-4.9 53-Rsj-095595:44 JOANNA (ANTINUCLEAR ANTIBODY) Comments: PATIENT WAS FASTINGPERFORMED BY: [facility]6370 [facility] [id number] (95881) JOANNA Direct Negative (Normal) 59-Ypv-762844:44 LIPID PANEL (00863) Comments: PATIENT WAS FASTINGPERFORMED BY: LabCo Mrgzyu8858 [facility] [id number] LDL Cholesterol Calc 140 mg/dL (Abnormal) Range: 0-99 LDL/HDL Ratio 1.8 {ratio_units} (Normal) Range: 0.0-3.2 HDL Cholesterol 77 mg/dL (Normal) Comments: According to ATP-III Guidelines, HDL-C >59 mg/dL is considered anegative risk factor for CHD. VLDL Cholesterol Hector 19 mg/dL (Normal) Range: 5-40 Triglycerides 97 mg/dL (Normal) Range: 0-149 Cholesterol, Total 236 mg/dL (Abnormal) Range: 100-199 :44 TSH (86865) Comments: PATIENT WAS FASTINGPERFORMED BY: [place] 2962470 [facility] [id number] TSH 1.670 {uIU/mL} (Normal) Range: 0.450-4.500 24-Vdj-731810:44 URINALYSIS, W/ MICRO (72792) Comments: PATIENT WAS FASTINGPERFORMED BY: [address] [id number] Microscopic Examination See below: (Normal) Bilirubin Negative (Normal) Ketones Negative (Normal) Nitrite, Urine Negative (Normal) Occult Blood 1+ (Abnormal) Urobilinogen,Semi-Qn 0.2 mg/dL (Normal) Range: 0.0-1.9 Glucose Negative (Normal) Protein Negative (Normal) Appearance Clear (Normal) pH 7.0 (Normal) Range: 5.0-7.5 Urine-Color Yellow (Normal) WBC Esterase Negative (Normal) Specific [place] 1.016 (Normal) Range: 1.005-1.030 :44 MICROALBUMIN: CREATININE RATIO Comments: PATIENT WAS FASTINGPERFORMED BY: [facility]6370 [facility] [id number] (38079) AND (26518) Microalb/Creat Ratio 2.8 {mg/g_creat} (Normal) Range: 0.0-30.0 Creatinine, Urine 61.0 mg/dL (Normal) Range: 15.0-278.0 Microalbumin, Urine 1.7 ug/mL (Normal) Range: 0.0-17.0 :44 METABOLIC PANEL, COMPREHENSIVE Comments: PATIENT WAS FASTINGPERFORMED BY: [place] 2962470 [facility] [id number] (70950) ALT (SGPT) 16 [iU]/L (Normal) Range: 0-40 [...] Glucose, Serum 92 mg/dL (Normal) Range: 65-99 83-Edt-940914:44 CBC WITH MANUAL DIFF Comments: PATIENT WAS FASTINGPERFORMED BY: LabCoAtlantiCare [facility], [facility] CampusMhxyat8432 [facility] [id number] Information: [id number] (69891) Immature Grans (Abs) 0.0 {x10E3/uL} (Normal) Range: [...] 3.80-5.10 WBC 6.1 {x10E3/uL} (Normal) Range: 4.0-10.5 14-Uty-424619:11 [facility]AT [facility] DIGITAL & CAD Radiology Report See Note (Normal) Comments: Exam Number: [id number] MAMMOGRAPHY - BILATERAL SCREENING INDICATION:Routine annual screening [...] of attaching a ResultCode to this exam.ADDENDUM: [id number] HPBI/MDS Reported By: ELEANOR ERNANDEZ M.D. 7-Ans-602839:01 TSH (35439) Comments: PATIENT NOT FASTINGPERFORMED BY: CB [facility] Pqorvd5376 [facility] [id number] Information: [id number] TSH 0.474 {uIU/mL} (Normal) Range: 0.450-4.500 :21 Thin prep Pap (97450) Comments: of cuff, has had hysterectomy; Source.............VaginalLMP / Prev Treat...HystNo. of containers..01 CYTYC Thin Prep VialPATIENT NOT FASTINGPERFORMED BY: [facility] [address] [id number] Information: [id number] Note: PAPSMR (Normal) Comments: The Pap smear [...] hysterectomy.V72.31 ; Routine gynecological exami Davion Mosley Adjunct Nursing Faculty (ASCP) 61-Ukm-621746:57 ABDOMEN/PELVIS W/WO CONTRAST Radiology Report See Note (Normal) Comments: Exam Number: [id number] CLINICAL:Hydronephrosis CT ABDOMEN AND PELVIS WITHOUT / [...] theright-sided hydronephrosis. Reported By: SAVANA AVELAR M.D. 3-Sga-246955:44 Urinalysis, Office (63405) UA - LEUKOCYTE ESTERASE Negative (Normal) UA - NITRITE Negative (Normal) URINE UROBILINGN REYNA TIMED Normal mg/dL (Normal) UA - PROTEIN Negative mg/dL (Normal) UA - PH 6.5 (Normal) UA - BLOOD Hemolyzed Trace (Normal) UA - SPECIFIC GRAVITY 1.010 (Normal) UA - KETONES Negative mg/dL (Normal) UA - BILIRUBIN Negative (Normal) UA - GLUCOSE Negative (Normal) 02-Gfh-383208:45 KIDNEY (HP) Radiology Report See Note (Normal) Comments: Exam Number: [id number] CLINICAL:The patient is a 69-year-old female who [...] no hydronephrosis Reported By: ELEANOR ERNANDEZ M.D. 73-Shb-086220:14 BMP BUN/CRE 17.8 {RATIO} (Normal) Range: 10-20 [...] (Normal) GLU 90 mg/dL (Normal) Range: 70-110 11-Psc-503246:52 Iron and TIBC Comments: PATIENT NOT FASTINGPERFORMED BY: [facility]6370 [facility] [id number] Iron Saturation 21 % (Normal) Range: 15-55 Iron, Serum 55 ug/dL (Normal) Range: 35-155 UIBC 202 ug/dL (Normal) Range: 150-375 Iron Bind.Cap.(TIBC) 257 ug/dL (Normal) Range: 250-450 78-Nhc-912148:52 Renal function Panel (81331) Comments: PATIENT NOT FASTINGPERFORMED BY: [employer] Lxxjgx0059 [facility] [id number] Albumin, Serum 3.7 g/dL (Normal) Range: 3.5-4.8 [...] Glucose, Serum 91 mg/dL (Normal) Range: 65-99 70-Pqn-753600:52 Ferritin (67947) Comments: PATIENT NOT FASTINGPERFORMED BY: [employer] Gdtaok4767 [facility] [id number] Ferritin, Serum 338 ng/mL (Abnormal) Range: 13-150 35-Pte-692755:52 CBC with manual diff Comments: PATIENT NOT FASTINGPERFORMED BY: [facility]6370 [facility] [id number] Information: [id number] (22280) Baso (Absolute) 0.0 {x10E3/uL} (Normal) Range: 0.0-0.2 [...] 3.80-5.10 WBC 7.9 {x10E3/uL} (Normal) Range: 4.0-10.5 87-Mlj-797012:20 TSH (28521) Comments: PATIENT NOT FASTINGPERFORMED BY: [place] 2962470 [facility] [id number] TSH 0.830 {uIU/mL} (Normal) Range: 0.450-4.500 59-Yrg-055163:20 CBC with manual diff Comments: PATIENT NOT FASTINGPERFORMED BY: [place] 2962470 [facility] [id number] Information: [id number] (90860) Hematology Comments: Note: (Normal) Comments: Verified by [...] 3.80-5.10 WBC 21.6 {x10E3/uL} (Abnormal) Range: 4.0-10.5 79-Vos-956153:58 Serum Protein Comments: PATIENT NOT FASTINGPERFORMED BY: [address] [id number] Information: ADD [id number] NO DRAW FEE Electrophoresis (SPEP) (54554) A/G Ratio 1.6 (Normal) Range: 0.7-2.0 Please note: SPRCS (Normal) Comments: Protein electrophoresis scan will follow via computer, mail, orcourier delivery. [place]-5-Dqobrhlp 0.2 g/dL (Normal) Range: 0.1-0.4 Frcrr-1-Kdoxqhfm 0.6 g/dL (Normal) Range: 0.4-1.2 Beta Globulin 0.9 g/dL (Normal) Range: 0.6-1.3 Gamma Globulin 0.9 g/dL (Normal) Range: 0.5-1.6 Globulin, Total 2.6 g/dL (Normal) Range: 2.0-4.5 M-Slim Not Observed g/dL (Normal) Albumin 4.2 g/dL (Normal) Range: 3.2-5.6 Protein, Total, Serum 6.8 g/dL (Normal) Range: 6.0-8.5 48-Uyl-370555:58 VITAMIN B-12 (CYANOCOBALAMIN) Comments: PATIENT NOT FASTINGPERFORMED BY: Zumbox70 [facility]gageSent[facility] [id number] (69782) Vitamin B12 300 pg/mL (Normal) Range: 211-911 67-Dye-849860:58 SED RATE ERYTHROCYTE (17234) Comments: PATIENT NOT FASTINGPERFORMED BY: Stellarcasa SA6370 [facility]gageSent[facility] [id number] Sedimentation Rate-Westergren 2 mm/h (Normal) Range: 0-30 64-Qcy-881765:20 CBC With Differential/Platelet Comments: PATIENT WAS FASTINGPERFORMED BY: Stellarcasa SA6370 [facility] [id number] Baso (Absolute) 0.1 {x10E3/uL} (Normal) Range: 0.0-0.2 [...] 3.80-5.10 WBC 5.4 {x10E3/uL} (Normal) Range: 4.0-10.5 83-Abl-830742:20 Comp. Metabolic Panel (14) Comments: PATIENT WAS FASTINGPERFORMED BY: LabCoAtlantiCare [facility], [facility] CampusIyshav1895 [facility] [id number] ALT (SGPT) 19 [iU]/L (Normal) Range: 0-40 [...] Glucose, Serum 95 mg/dL (Normal) Range: 65-99 53-Fwt-607891:20 Lipid Panel With LDL/HDL Comments: PATIENT WAS FASTINGPERFORMED BY: Diet TV [facility] ArborEncore InteractiveSentara Albem[facility] [id number] Ratio HDL Cholesterol 66 mg/dL (Normal) Comments: [...] 1.050 {uIU/mL} Comments: PATIENT WAS FASTINGPERFORMED BY: Zumbox70 [facility] [id number] :20 (Normal) Range: 0.450-4.500 89-Zfp-34821:50 CBCD,SMEAR DIFF BAND 1 % (Normal) Range: [...] :50 TSH 1.25 {uIU/mL} (Normal) Range: 0.34-4.82 12-Exw-974726:41 BILAT SCRN DIGITAL & CAD Radiology Report See Note (Normal) Comments: Exam Number: [id number] MAMMOGRAM, BILATERAL SCREENING DIGITAL AND CAD HISTORYRoutine [...] mammograms werealso examined with computer-aided detection software ([employer], [employer] Reported By: ELEANOR ERNANDEZ M.D. :28 [...] :28 TSH 0.38 {uIU/mL} (Normal) Range: 0.34-4.82 7-Txm-276786:04 Rapid Strep Test, Office (64433) Rapid Strep Test, Office Negative (Normal) 96-Ibm-741456:34 BILAT SCRN DIGITAL & CAD Radiology Report See Note (Normal) Comments: Exam Number: [id number] MAMMOGRAM, BILATERAL SCREENING DIGITAL AND CAD HISTORYRoutine [...] mammograms werealso examined with computer-aided detection software ([employer], [employer] Reported By: ELEANOR ERNANDEZ M.D. 92-Wsx-050288:31 DEXA BONE DENSITY STUDY (HP) Radiology Report See Note (Normal) Comments: Exam Number: [id number] BONE DENSITOMETRY HISTORYPostmenopausal. TECHNIQUE Bone densitometry of [...] hip is withinnormal limits. Reported By: ELEANOR RENANDEZ M.D. 20-Chu-751320:39 COMP METABOLIC A/G 1.1 {RATIO} (Normal) Range: [...] : Follow up in [address] [facility] Indication: Hypertensive heart disease Hematuria, unspecified : FOLLOW UP IN [address] [facility] Indication: Hematuria, unspecified Abnormal blood chemistry [...] Gen Med in Sep [address] [facility] per pt request Indication: Hydronephrosis Hydronephrosis : Follow up for well woman with [facility] per pt request Indication: Hydronephrosis Anemia : FOLLOW UP IN 2 WEEKS January [address] [facility] Indication: Anemia Abdominal pain, acute, generalized : FOLLOW UP IN [address] [facility] Indication: Abdominal pain, acute, generalized Diarrhea [...] Indication: Bronchitis Planned Observations Metabolic Panel, Comprehensive ([id number])Indication: Hypercholesterolemia On: [id number]-Fvv-[id number] Request Comments: Jun 2018 LIPID PANEL ([id number])Indication: Hypercholesterolemia On: 3-Vep-414686:51 Request Comments: Jun 2018 URINALYSIS ([id number])Indication: Hypertension, essential, benign On: 65-Ebw-375304:52 Request MICROALBUMIN: CREATININE RATIO ([id number]) AND ([id number])Indication: Hypertension, essential, benign On: 86-Duf-446767:52 Request Metabolic Panel, Comprehensive ([id number])Indication: Hypertension, essential, benign On: 61-Esd-143176:50 Request Comments: send to [facility] CBC, Platelets & Auto Diff ([id number])Indication: Hypertension, essential, benign On: 85-Vre-617663:50 Request Comments: send to [facility] TSH (26877)Indication: Hypothyroidism On: 29-Yin-291724:50 Request Comments: send to [facility] LIPID PANEL (58507)Indication: Hypercholesterolemia On: 60-Fam-475632:50 Request Comments: send to [facility] URINALYSIS ([id number])Indication: Hypertension, essential, benign On: 0-Ahy-922258:03 Request Comments: today MICROALBUMIN: CREATININE RATIO (52727) AND ([id number])Indication: Hypertension, essential, benign On: 5-Myz-128291:03 Request Comments: today TSH (54909)Indication: Hypothyroidism On: 8-Ydd-117257:03 Request Comments: Jul 2017 MICROALBUMIN: CREATININE RATIO (34190) AND (65653)Indication: Hypertension, essential, benign On: 19-Maa-474333:51 Request Comments: Mar 2017 URINALYSIS ([id number])Indication: Hypertension, essential, benign On: 49-Lld-460539:51 Request Comments: Mar 2017 TSH (15245)Indication: Hypertension, essential, benign On: 31-Gsc-913277:51 Request Comments: Mar 2017 CBC, Platelets & Auto Diff (43148)Indication: Hypertension, essential, benign On: 46-Hog-739956:51 Request Comments: Mar 2017 Metabolic Panel, Comprehensive ([id number])Indication: Hypertension, essential, benign On: 57-Gtq-910116:51 Request TSH (THYROID STIMULATING HORMONE) (23609)Indication: Hypothyroidism On: 86-Vax-519172:53 Request HEPATIC FUNCTION PANEL (12407)Indication: Hypertension, essential, benign On: 39-Cho-054772:47 Request VITAMIN B12 AND FOLATES (15163)Indication: Vitamin B 12 deficiency On: 3-Glz-605253:52 Request CALCIFEDIOL ([id number])Indication: DEFICIENCY, VITAMIN D NOS On: 4-Pkj-031028:52 Request Urinalysis, Office (51634)Indication: Hematuria, unspecified On: 15-Tar-457425:35 Request MICROALBUMIN URINE QUANT (33810)Indication: Hypertensive heart disease On: 25-Xfu-664193:25 Request FECAL OCCULT HGB ASSAY- tubes sent home (06823)Indication: Well woman exam On: 3-Cxu-827447:51 Request OCCULT BLOOD FECES SCREEN- card done in office (92620)Indication: Well woman exam On: 2-Evt-015196:51 Request Renal function Panel (65302)Indication: Hydronephrosis On: 0-Now-137281:22 Request Iron (59570)Indication: Anemia On: 37-Yrc-309772:39 Request Iron Binding Capacity (TIBC) (84903)Indication: Anemia On: 91-Dlj-424507:39 Request OVA & PARASITE DIR SMEAR (56013)Indication: Diarrhea On: 60-Vmr-613459:50 Request OCCULT BLOOD FECES SCREEN (37252)Indication: Diarrhea On: 90-Bao-027279:50 Request LEUKOCYTE COUNT, FECAL (08119)Indication: Diarrhea On: 28-Qtx-167435:50 Request C-DIFFICILE, STOOL (88893)Indication: Diarrhea On: 40-Kqb-554838:50 Request LORNA CULTURE-STOOL (74942)Indication: Diarrhea On: 66-Aeu-168158:50 Request HEPATIC FUNCTION PANEL (66371)Indication: Hypercholesterolemia On: 04-Uuv-651846:46 Request Lipid Panel ([id number])Indication: Hypercholesterolemia On: 31-Gns-866104:46 Request Comments: in three months (approximately) TSH (09820)Indication: Hypothyroidism On: 57-Jxx-697040:06 Request METABOLIC PANEL, COMPREHENSIVE (05601)Indication: Hypertensive heart disease On: 31-Fhk-255135:06 Request LIPID PANEL (26547)Indication: Hypertensive heart disease On: 96-Oei-118379:06 Request CBC WITH MANUAL DIFF ([id number])Indication: Hypertensive heart disease On: 56-Vsh-115940:06 Request LORNA CULTURE-OTHER (07176)Indication: Pharyngitis, acute On: 3-Okq-179649:04 Request CBC (Auto) (77070)Indication: Hypercholesterolemia On: :13 Request Lipid Panel (34315)Indication: Hypercholesterolemia On: 32-Tnq-52109:13 Request Metabolic Panel, Comprehensive ([id number])Indication: Hypercholesterolemia On: 77-Leh-94119:13 Request Comments: in six months (approximately) TSH (65548)Indication: Hypothyroidism On: 18-Ldg-430602:06 Request LIPID PANEL ([id number])Indication: Hypertension On: 09-Znt-704939:01 Request Planned Encounters Medical; 3 Month FU - On: 14-Jun-2018 10:45 [facility] Sarai Bro CNP, CNP, Mary E Planned Procedures MAMMOGRAM BREAST BILATERAL On: 27-May-2018 Intent SCREENING DIGITAL (13327)By: Sarai Bro CNP, CNP, Mary E Radiology - Femur - RightBy: Hang On: 02-Mar-2018 Intent Sarai CARNEY CNP, Mary E DEXA SCAN AXIAL SKELETON On: 19-Oct-2017 Intent (38270)By: Sarai Bro CNP, CNP, Mary E Aerosol Treatment (59260)By: On: 07-Sep-2017 Intent Kelly Naqvi Comments: Lungs clear after aerosol treatment Flu Vaccine (Quadrivalent) On: 13-Apr-2017 Intent 33084Jc: Giselle Silva LPN Comments: InfluenzaLot #[id number]-/18/18Site-L dltd, IMDose prefilled syringeVIS and ABN signedgiven by:ROSA MARIA cade MAMMOGRAM BREAST BILATERAL On: 05-Jan-2017 Intent SCREENING DIGITAL (59167)By: Hang Comments: after Apr 24 2017 Sarai CARNEY CNP, Mary E DEXA SCAN AXIAL SKELETON On: 05-Jan-2017 Intent ([id number])By: Sarai Bro CNP Comments: After Apr 24 2017 Sarai CARNEY Flu Vaccine (Quadrivalent) On: 06-Jul-2016 Intent 83117Fk: Giselle Silva LPN Comments: InfluenzaLot #Lot [id number]/30/17Site-L dltd, IMDose prefilled syringeVIS and ABN signedgiven by:ROSA AMRIA cade MAMMOGRAM, SCREENING, BOTH BREAST On: 31-Mar-2016 Intent ([id number])By: Sarai Bro CNP, CNP, Mary E MAMMOGRAM, SCREENING, BOTH BREAST On: 17-Feb-2016 Intent ([id number])By: Sarai Bro CNP, CNP, Mary E PHYSICAL THERAPY EVALUATION On: 28-Jan-2016 Intent ([id number])By: Sarai Bro CNP, CNP, Mary E PHYSICAL THERAPY EVALUATION On: 28-Jan-2016 Intent (78743)By: Sarai Bro CNP, CNP, Mary E Toradol Injection, 30 mg On: 28-Jan-2016 Intent (J1885)By: Sarai Bro CNP, CNP, Mary E Radiology - Lumbar SpineBy: Hang On: 28-Jan-2016 Intent Sarai CARNEY CNP, Mary E Radiology - Knee - LeftBy: Hang On: 28-Jan-2016 Intent Sarai CARNEY CNP, Mary E Aerosol Treatment (70332)By: Hang On: 24-Dec-2015 Intent Sarai CARNEYbonita ANGELIKASarai Flu Vaccine (Quadrivalent) On: 10-May-2015 Intent 97652Nk: Hang CARNEY Rianna Cibonita Comments: Lot:[id number]:02/06/16Dose:0.5mLRoute:IMSite:L DltdGiven By:Kacie galaviz CNP Sarai Moon DEXA SCAN AXIAL SKELETON On: 19-Mar-2015 Intent ([id number])By: Hang CARNEY RiannaRed Bro CNP Sarai Moon MAMMOGRAM, SCREENING, BOTH BREAST On: 11-Feb-2015 Intent ([id number])By: Hang CARNEY Rianna Ciwojciechyin CARNEY Sarai Moon DEXA SCAN AXIAL SKELETON On: 11-Feb-2015 Intent ([id number])By: Hang CARNEY RiannaRed Bro CNP Sarai Moon Solu -Medrol Injection, 125 mg On: 25-Jul-2014 Intent (J2930)By: Sarai Bro CNP Comments: [id number] 5.17right gm125 mgas, ROSA MARIA CARNEY Sarai Moon Aerosol Treatment (15925)By: Hang On: 25-Jul-2014 Intent Sarai CARNEY Tiffaniebonita ANGELIKA Sarai Moon Toradol Injection, 30 mg On: 18-Jul-2014 Intent ([id number])By: Hang CARNEY RiannaRed Bro CNP Sarai Moon Radiology - Lumbar SpineBy: Hang On: 18-Jul-2014 Intent ANGELIKASarai Tiffaniewojciechyin CARNEY Sarai Moon Radiology - Hip - RightBy: Hang On: 18-Jul-2014 Intent ANGELIKA Sarai Moon Tiffaniebonita ANGELIKA Sarai Moon Prevnar 13 (62801)By: Ricardo CRANE, On: 16-Jul-2014 Intent Giselle Comments: [id number] arm, IMAS Bone Density StudyBy: Hang CARNEY, On: 15-May-2014 Intent Sarai Bro CNP Rianna ADMINISTRATION OF INFLUENZA VIRUS On: 15-May-2014 Intent VACCINE (G0008)By: Sarai Bro CNP, CNP Rianna FLU VAC, SPLIT, >3 YEARS, On: 15-May-2014 Intent INTRAMUSC (32745)By: Hang CARNEY, Comments: Lot:[id number]:04/24Dose:0.5mLRoute:IMSite:L DltdGiven By:JSONIA signed Sarai Moon Tiffaniebonita ANGELIKA Sarai Moon SPECIMEN HNDLNG/TRNSPRT, OFFC > On: 22-Mar-2014 Intent LAB ([id number])By: Hang CARNEY RiannaRed Bro CNP Rianna BILATERAL MAMMOGRAMS (77046)By: On: 18-Dec-2013 Intent Hang CARNEY Sarai Moon Tiffaniewojciechyin CARNEY Sarai Moon Aerosol Treatment ([id number])By: Hang On: 22-Sep-2013 Intent ANGELIKA Sarai Moon Hang CARNEY Rianna Wax CurettesBy: Hang CARNEY Rianna On: 22-Sep-2013 Intent Hang CARNEY Rianna Ear Irrigation (55682)By: Hang On: 22-Sep-2013 Intent ANGELIKASarai Tiffaniewojciechyin CARNEY Sarai Moon Eprescribed prescriptions On: 18-Aug-2013 Intent (G8553)By: Lucrecia Vargas Eprescribed prescriptions On: 05-May-2013 Intent (G8553)By: Hang CARNEY RiannaRed Bro CNP Rianna ADMINISTRATION OF INFLUENZA VIRUS On: 05-May-2013 Intent VACCINE (G0008)By: Aristides CRANE, Comments: lot # [id number] 6.2014site- L dltdroute-IMdose- 0.5mlVIS and ABN signedBlessing Francis FLU VAC, SPLIT, >3 YEARS, On: 05-May-2013 Intent INTRAMUSC (08536)By: Penny Irving LPN MAMMOGRAM, SCREENING, BOTH BREASTS On: 16-Dec-2012 Intent (18785)By: Hang CARNEY RiannaRed Bro CNP Rianna Spirometry (26606)By: Aristides CRANE, On: 16-Dec-2012 Intent Penny Comments: mild airway obstruction Aerosol Treatment (77623)By: Hang On: 30-Mar-2012 Intent ANGELIKA Sarai Moon Hang CARNEY Rianna PFT - CompleteBy: Sarai Bro CNP On: 01-Mar-2012 Intent Red Bro CNP Rianna Inhaler Demonstration (53423)By: On: 28-Dec-2011 Intent Sarai Bro CNP, CNP, Mary E Pulse Oximetry (75592)By: Hang On: 28-Dec-2011 Intent Sarai CARNEY CNP, Mary E Eprescribed prescriptions On: 22-Apr-2011 Intent (G8553)By: Hang CARNEY, Sarai Bro CNP, Sarai Moon Eprescribed prescriptions On: 21-Oct-2010 Intent (G8553)By: Sarai Bro CNP, CNP, Sarai Moon Eprescribed prescriptions On: 21-Oct-2010 Intent (G8553)By: Sarai Bro CNP, CNP Sarai Moon MAMMOGRAM, SCREENING, BOTH BREASTS On: 15-Apr-2010 Intent (39267)By: Hang CARNEY Sarai Bro CNP Sarai Moon [...] SPLIT, >3 YEARS, On: 22-May-2009 Intent INTRAMUSC (28200)By: Kelle CRANE, Comments: Lot #[id number]-left deltoidgiven by:MELA Collins Pulse Oximetry (85346)By: Jay On: 25-Sep-2008 Intent PRESTON ADMINISTRATION OF INFLUENZA VIRUS On: 13-Jun-2008 Intent VACCINE (G0008)By: Aristides CRANE, Comments: lot #[id number] exp- 01/15site-left delroute-imdose- 0.5 Penny FLU VAC, SPLIT, >3 YEARS, On: 13-Jun-2008 Intent INTRAMUSC (75390)By: Penny Irving LPN MAMMOGRAM, SCREENING, BOTH BREASTS On: 28-May-2008 Intent (11403)By: Susan Lee MD M Bio Z (15757)By: Susan Lee MD On: 28-Nov-2007 Intent M SPECIMEN HNDLNG/TRNSPRT, OFFC > On: 12-Oct-2007 Intent LAB (90664)By: Tyesha Ramos DO Bone Density StudyBy: Rosa CHRISTIANSEN, On: 18-Feb-2007 Intent Susan Snáchez Comments: ache in back MAMMOGRAM, SCREENING, BOTH BREASTS On: 18-Feb-2007 Intent (02191)By: Susan Lee MD Bio Z (35126)By: Susan eLe MD On: 20-Jul-2006 Intent M Planned Medications INJECTION, KETOROLAC TROMETHAMINE, PER 15 MG Ordered: 18-Jul-2014 Pending Ciesa [employer]EIGN BANKNOTE TELLER TRADER, Rianna Ciesa FOREIGN BANKNOTE TELLER TRADER, Rianna INJECTION, KETOROLAC TROMETHAMINE, PER 15 MG Ordered: 28-Jan-2016 Pending Ciesa [employer]EIGN BANKNOTE TELLER TRADER, Rianna Ciesa FOREIGN BANKNOTE TELLER TRADER, Rianna INJECTION, METHYLPREDNISOLONE SODIUM SUCCINATE, UP TO 125 MG Ordered: 25-Jul-2014 Pending Ciesa FOREIGN BANKNOTE TELLER TRADER, Rianna Ciesa FOREIGN BANKNOTE TELLER TRADER, Rianna Instructions Name Dates Details Nonsmoker : [...] The patient does have durable power of consumer attorney and living will. The patient has noticed nothing from the geriatic depression scale. Other providers contributing to the katty ent's care are software project lead (Dr paz ), cable engineer outside plant (Dr Vazquez ), urologist (Dr Pope ) [...]
--- OUTSIDE RECORDS SUMMARY | 2018-09-02 07:17 | XMS RPT_ITS ---
:1940 Author Organization OHIP Support Name Relationship Address Phone JAYCE CRAIN Unavailable [address] + [place] [address] R Unavailable Unavailable Unavailable ADELINA ROSALES Unavailable Unavailable + JAYCE CRAIN Unavailable [address] + [place] [address] R Unavailable Unavailable Unavailable ADELINA ROSALES Unavailable Unavailable + JAYCE CRAIN Unavailable [address] + [place] [address] R Unavailable Unavailable Unavailable ADELINA ROSALES Unavailable Unavailable + [place] [address] JAYCE CRAIN Unavailable [address] + [place] [address] R Unavailable Unavailable Unavailable ADELINA ROSALES Unavailable Unavailable + [place] [address] JAYCE CRAIN Unavailable [address] + [place] [address] R Unavailable Unavailable Unavailable ADELINA ROSALES Unavailable Unavailable + [place] [address] JAYCE CRAIN Unavailable [address] + [place] [address] R Unavailable Unavailable Unavailable ADELINA ROSALES Unavailable Unavailable + [place] [address] JAYCE CRAIN Unavailable [address] + [place] [address] R Unavailable Unavailable Unavailable ADELINA ROSALES Unavailable Unavailable + [place] [address] JAYCE CRAIN Unavailable [address] + [place] [address] R Unavailable Unavailable Unavailable ADELINA ROSALES Unavailable Unavailable + [place] [address] BREANN, JAYCE Unavailable [address] + [place] [address] R Unavailable Unavailable Unavailable ADELINA ROSALES Unavailable Unavailable + [place] [address] BREANN, JAYCE Unavailable [address] + [place] [address] R Unavailable Unavailable Unavailable BREANN, JAYCE Unavailable [address] + [place] [address] R Unavailable Unavailable Unavailable BREANN, JAYCE Unavailable [address] + [place] [address] R Unavailable Unavailable Unavailable BREANN, JAYCE Unavailable [address] + [place] [address] R Unavailable Unavailable Unavailable BREANN, JAYCE Unavailable [address] + [place] [address] R Unavailable Unavailable Unavailable BREANN, JAYCE Unavailable [address] + [place] [address] R Unavailable Unavailable Unavailable BREANN, JAYCE Unavailable [address] + [place] [address] R Unavailable Unavailable Unavailable BREANN, JAYCE Unavailable [address] + [place] [address] R Unavailable Unavailable Unavailable BREANN, JAYCE Unavailable [address] + [place] [address] R Unavailable Unavailable Unavailable BREANN, JAYEC Unavailable [address] + [place] [address] R Unavailable Unavailable Unavailable BREANN, JAYCE Unavailable [address] + [place] [address] R Unavailable Unavailable Unavailable BREANN, JAYCE Unavailable [address] + [place] [address] R Unavailable Unavailable Unavailable BREANN, JAYCE Unavailable [address] + [place] [address] R Unavailable Unavailable Unavailable BREANN, JAYCE Unavailable [address] + [place] [address] R Unavailable Unavailable Unavailable BREANN, JAYCE Unavailable [address] + [place] [address] R Unavailable Unavailable Unavailable BREANN, JAYCE Unavailable [address] + [place] [address] R Unavailable Unavailable Unavailable BREANN, JAYCE Unavailable [address] + [place] [address] R Unavailable Unavailable Unavailable BREANN, JAYCE Unavailable [address] + [place] [address] R Unavailable Unavailable Unavailable Care Team Providers Name Role Phone Tiffanieesa, Sarai Attending Unavailable Susan Lee MD Referring Unavailable Ciesa, Sarai Consulting Unavailable Tova, [place] Attending Unavailable Ciesa, Sarai Referring Unavailable Ciesa, Sarai Primary Care Unavailable Tova, Amilcar Attending Unavailable Ciwojciecha, Sarai Primary Care Unavailable Tova, Amilcar Attending Unavailable Jennifer Goodwin Referring Unavailable Ciesa, Sarai Primary Care Unavailable Tova, [place] Attending Unavailable Tova, [place] Referring Unavailable Ciesa, Sarai Primary Care Unavailable Tova, [place] Attending Unavailable Tova, Amilcar Referring Unavailable Ciesa, Sarai Primary Care Unavailable Tova, [place] Attending Unavailable Tova, Amilcar Referring Unavailable Ciesa, Sarai Primary Care Unavailable Ciesa, Sarai Attending Unavailable Ciesa, Sarai Referring Unavailable Ciesa, Sarai Primary Care Unavailable Tova, [place] Attending Unavailable Tova, Amilcar Referring Unavailable Ciesa, Sarai Primary Care Unavailable Tova, [place] Attending Unavailable Tova, [place] Referring Unavailable Ciesa, Sarai Primary Care Unavailable Tova, [place] Attending Unavailable Tova, [place] Referring Unavailable Ciesa, Sarai Primary Care Unavailable Ciesa, Sarai Consulting Unavailable Nely Rubin Attending Unavailable Tova, [place] Attending Unavailable Tova, [place] Referring Unavailable Ciesa, Sarai Primary Care Unavailable Ciesa, Sarai Consulting Unavailable Angelica Nash Attending Unavailable Jennifer Goodwin Attending Unavailable Ciesa, Sarai Referring Unavailable Tova, [place] Attending Unavailable Tova, Amilcar Referring Unavailable Ciesa, Sarai Primary Care Unavailable Ciesa, Sarai Consulting Unavailable Jennifer Goodwin Attending Unavailable Jennifer Goodwin Referring Unavailable Ciesa, Sarai Primary Care Unavailable Ciesa, Sarai Attending Unavailable Ciesa, Sarai Referring Unavailable Ciesa, Sarai Primary Care Unavailable Tova, [place] Attending Unavailable Tova, [place] Referring Unavailable Ciesa, Sarai Primary Care Unavailable Ciesa, Sarai Consulting Unavailable Tova, Amilcar Attending Unavailable Patel, Higinio Attending Unavailable Patel, Higinio Referring Unavailable Ciesa, Sarai Primary Care Unavailable Tova, [place] Attending Unavailable Tova, [place] Referring Unavailable Ciesa, Sarai Primary Care Unavailable Ciesa, Sarai Consulting Unavailable Tova, Amilcar Attending Unavailable Tova, [place] Referring Unavailable Ciesa, Sarai Primary Care Unavailable Ciesa, Sarai Consulting Unavailable Ciesa, Sarai Primary Care Unavailable Tova, Amilcar Attending Unavailable Tova, [place] Referring Unavailable Ciesa, Sarai Consulting Unavailable Tova, [place] Attending Unavailable Tova, [place] Referring Unavailable Ciesa, Sarai Primary Care Unavailable Ciesa, Sarai Consulting Unavailable Tova, Amilcar Attending Unavailable Tova, Amilcar Referring Unavailable Ciesa, Sarai Primary Care Unavailable Ciesa, Sarai Consulting Unavailable Ciesa, Sarai Attending Unavailable Ciesa, Sarai Referring Unavailable Ciesa, Sarai Primary Care Unavailable Tova, [place] Attending Unavailable Tova, Amilcar Referring Unavailable Ciesa, Sarai Primary Care Unavailable Ciesa, Sarai Consulting Unavailable PROBLEMS PROBLEMS DATE TYPE CONDITION / CODE ATTENDING STATUS SOURCE 07/11/2018 Unknown I48.0 - Paroxysmal Tova, Amilcar Active [place] atrial fibrillation Community / I48.0(ICD-10) Hospital Repository 07/11/2018 Unknown E78.5 - Tova, [place] Active [facility] Hyperlipidemia, Community unspecified / Hospital E78.5(ICD-10) Repository 07/11/2018 Unknown E03.9 - Tova, Amilcar Active [facility] Hypothyroidism, Community unspecified / Hospital E03.9(ICD-10) Repository 07/11/2018 Unknown 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, [place] Active [facility] of other specified B Community group vitamins / Hospital E53.8(ICD-10) Repository 06/09/2018 Unknown E78.00 - Pure Tova, [place] Active [facility] hypercholesterolemia Community , unspecified / Hospital E78.00(ICD-10) Repository 06/09/2018 Unknown Z79.01 - intermission coordinator Otva, [place] Active [facility] (current) use of Community anticoagulants / Hospital Z79.01(ICD-10) Repository 03/02/2018 Unknown M79.604 - Pain in Sarai Bro Active [facility] right leg / Community M79.604(ICD-10) Hospital Repository 03/15/2018 Unknown R06.02 - Shortness Tova, [place] Active [place] of breath / Community R06.02(ICD-10) Hospital Repository 01/28/2018 Unknown Z98.890 - Other Goodwin, Active [facility] specified [facility] postprocedural Hospital states / Repository Z98.890(ICD-10) 01/28/2018 Unknown 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 Imaging Services [address] [place] [address] SCREENING MAMM (CAD), BILAT MR#: [id number] Acct: [id number] Name: VALERIE CARIN Rep #: [id number] : 1940 F 78 From: Henry Jones MD PCP: Sarai Bro NP Status: REG CLI Study: SCREENING MAMM (CAD), BILAT Date of Exam: 07/08/18 Exam# [id number] Ordering Dr: Sarai Bro [employer] [facility]-C MAMMOGRAPHY - BILATERAL SCREENING REASON FOR EXAM: Female, 78 years old. Routine annual screening examination. PERTINENT HISTORY: Non-contributory. TECHNIQUE: Digital bilateral breast maurilio (3D mammographic acquisition) in the CC and MLO projections. 2-D mediolateral oblique (MLO) and craniocaudad (CC) views of both breasts were obtained. CAD: Full Field Digital Mammography with Computer Added Detection was performed. COMPARISON: Comparison is made with prior study dated May 17, 2017 and April 24, 2016. FINDINGS: Breast Composition: There are scattered areas of fibroglandular density. There are no dominant masses or suspicious calcifications. No other significant abnormalities are identified. There has been no significant change since the prior study. BI/SCREENING MAMM (CAD), BILAT IMPRESSION: Stable bilateral screening mammogram. Yearly follow-up mammogram recommended. (A) ASSESSMENT CATEGORY: BIRADS Category 1: Negative. A letter regarding these results will be sent to the patient by the facility within 30 days. Approximately 10% of breast cancers are not detected by mammography. A normal mammogram should not delay biopsy of a clinically suspicious abnormality. [id number] Electronically Signed: Henry Jones MD at 12:32 EST Tel [phone], Service support , CC: Sarai Bro NP Figure Model: Signed PROTHROMBIN TIME W/INR Collected: 07/01/2018 Status: F Source: [place] 9:06 AM [facility] REPOSITORY Order Comment: SARAI BRO ORDERED: TSH, B12, FOLS DR BERNARDO ORDERED: PT, LIPID, LIVER TYPE CODE TESTS RESULT OUT OF RANGE REFERENCE UNITS LAB L300.4150 11.7-14.9 SECONDS High PROTIME 31.3 LAB L300.4200 Normal INR 3.0 Performed By: #### L300.3900 #### [facility] [address] [place], [address] LIVER PROFILE Collected: 07/01/2018 Status: F Source: [place] 9:06 AM [facility] REPOSITORY Order Comment: SARAI BRO ORDERED: TSH, B12, ARIS BERNARDO ORDERED: PT, LIPID, LIVER Is Patient Taking Vitamins or Folic Acid Supplements? N TYPE CODE TESTS RESULT OUT OF RANGE REFERENCE UNITS LAB L501.1500 6.4-8.2 g/dL Normal T PROT 6.6 LAB L501.1800 3.2-5.0 g/dL Normal ALB 3.5 LAB L501.1950 2.2-4.2 g/dL Normal GLOB 3.1 LAB L501.4100 15-37 U/L Normal AST 18 LAB L501.4305 45-117 U/L Normal ALK P 59 LAB L501.4405 13-56 U/L Normal ALT 26 LAB L501.4600 0.20-1.00 mg/dL Normal T BILI 0.30 LAB L501.4700 0.00-0.30 mg/dL Normal D BILI 0.13 Performed By: #### L500.3400, L500.4100, L501.9520, L506.0250 #### [facility] [address] [place], [address] LIPID PROFILE Collected: 07/01/2018 Status: F Source: [place] 9:06 AM [facility] REPOSITORY Order Comment: SARAI BRO ORDERED: TSH, B12, ARIS BERNARDO ORDERED: PT, LIPID, LIVER Is Patient Taking Vitamins or Folic Acid Supplements? N TYPE CODE TESTS RESULT OUT OF RANGE REFERENCE UNITS LAB L501.4900 200 mg/dL Normal CHOL 161 Result Comment: <200 mg/dL Desirable 200-240 mg/dL Borderline >240 mg/dL High Risk LAB L501.5000 mg/dL Normal TRIG 85 Result Comment: The drugs N-Acetylcysteine and Metamizole may falsely depress this assay. Serum Triglycerides Reference Interval Normal <150 mg/dL Borderline high 150 - 199 mg/dL High 200 - 499 mg/dL Very High > or = 500 mg/dL LAB L501.6400 mg/dL Normal HDL 73 Result Comment: The drugs N-Acetylcysteine and Metamizole may falsely depress this assay. Reference Range HDL <40 mg/dL Low HDL Cholesterol HDL >or= 60 mg/dL High HDL Cholesterol LAB L501.6500 0-130 mg/dL Normal LDL 71 LAB L501.6600 5-40 mg/dL Normal VLDL 17 Performed By: #### L500.3400, L500.4100, L501.9520, L506.0250 #### [facility] [address] [place], [address] THYROID STIM HORMONE Collected: 07/01/2018 Status: F Source: [place] (TSH) 9:06 AM [facility] REPOSITORY Order Comment: SARAI BRO ORDERED: TSH, B12, FOLElizabeth BERNARDO ORDERED: PT, LIPID, LIVER Is Patient Taking Vitamins or Folic Acid Supplements? N TYPE CODE TESTS RESULT OUT OF RANGE REFERENCE UNITS LAB L501.9520 0.358-3.74 uIU/mL Normal TSH 2.70 Performed By: #### L500.3400, L500.4100, L501.9520, L506.0250 #### [facility] [address] [place], [address] FOLATES, (FOLIC ACID) Collected: 07/01/2018 Status: F Source: [place] 9:06 AM [facility] REPOSITORY Order Comment: SARAI BOR ORDERED: TSH, B12, ARIS BERNARDO ORDERED: PT, LIPID, LIVER Is Patient Taking Vitamins or Folic Acid Supplements? N TYPE CODE TESTS RESULT OUT OF RANGE REFERENCE UNITS LAB L506.0250 3.1-55.4 ng/mL Normal FOLATES 15.70 Performed By: #### L500.3400, L500.4100, L501.9520, L506.0250 #### [facility] [address] [place], [address] VITAMIN B12 Collected: 07/01/2018 Status: F Source: [place] 9:06 AM [facility] REPOSITORY Order Comment: SARAI BRO ORDERED: TSH, B12, ARIS BERNARDO ORDERED: PT, LIPID, LIVER TYPE CODE TESTS RESULT OUT OF RANGE REFERENCE UNITS LAB L503.0105 211-911 pg/mL Normal Vitamin B12 382 Performed By: #### L503.0105 #### [facility] [address] [place], [address] PROTHROMBIN TIME W/INR Collected: 06/07/2018 Status: F Source: [place] 10:49 AM [facility] REPOSITORY Order Comment: Comments: STANDING ORDER Comments: STANDING ORDER TYPE CODE TESTS RESULT OUT OF RANGE REFERENCE UNITS LAB L300.4150 11.7-14.9 SECONDS High PROTIME 29.6 LAB L300.4200 Normal INR 2.8 Performed By: #### L300.3900 #### [facility] [address] [place], [address] COMPREHENSIVE METABOLIC Collected: 06/07/2018 Status: F Source: [place] [facility] 10:49 AM [facility] REPOSITORY TYPE CODE TESTS RESULT OUT OF RANGE REFERENCE UNITS LAB L501.0100 74-106 mg/dL Normal GLU 86 Result Comment: Please note revised GLUCOSE reference range effective 2017. LAB L501.1000 7-18 mg/dL High BUN 23 LAB L501.1100 0.55-1.02 mg/dL Normal CREAT,SERUM 1.01 Result Comment: The validity of the calculated GFR AND GFRAA in patients over 70 years has not been determined. Clinical correlation is essential. LAB L501.1110 >60 mL/min Low EST GFR 56 Result Comment: Non- GFR Calc LAB L501.1115 >60 mL/min Normal EST GFR - AA 68 Result Comment: GFR Calc LAB L501.1300 10-20 RATIO High BUN/CRE 22.8 LAB L501.1500 6.4-8.2 g/dL T Normal PROT 7.2 LAB L501.1800 3.2-5.0 g/dL Normal ALB 3.8 LAB L501.1950 2.2-4.2 g/dL Normal GLOB 3.4 LAB L501.2000 0.9-2.4 RATIO Normal A/G 1.1 LAB L501.2200 8.5-10.1 mg/dL CA Normal 8.6 LAB L501.4100 15-37 U/L Normal AST 19 LAB L501.4305 45-117 U/L Normal ALK P 66 LAB L501.4405 13-56 U/L Normal ALT 25 LAB L501.4600 0.20-1.00 mg/dL T Normal BILI 0.50 LAB L501.5300 136-145 mmol/L NA Normal 141 LAB L501.5600 3.5-5.1 mmol/L K Normal 4.8 LAB L501.5900 98-107 mmol/L CL Normal 106 LAB L501.6100 21.0-32.0 mmol/L Normal CO2 30.0 LAB L501.6200 5-15 Normal GAP 5 Performed By: #### L500.4050, L500.4100 #### [facility] [address] [place], [place], [address] LIPID PROFILE Collected: 06/07/2018 Status: F Source: [place] 10:49 AM [facility] REPOSITORY TYPE CODE TESTS RESULT OUT OF RANGE REFERENCE UNITS LAB L501.4900 200 mg/dL Normal CHOL 182 Result Comment: <200 mg/dL Desirable 200-240 mg/dL Borderline >240 mg/dL High Risk LAB L501.5000 mg/dL Normal TRIG 125 Result Comment: The drugs N-Acetylcysteine and Metamizole may falsely depress this assay. Serum Triglycerides Reference Interval Normal <150 mg/dL Borderline high 150 - 199 mg/dL High 200 - 499 mg/dL Very High > or = 500 mg/dL LAB L501.6400 mg/dL Normal HDL 69 Result Comment: The drugs N-Acetylcysteine and Metamizole may falsely depress this assay. Reference Range HDL <40 mg/dL Low HDL Cholesterol HDL >or= 60 mg/dL High HDL Cholesterol LAB L501.6500 0-130 mg/dL Normal LDL 88 LAB L501.6600 5-40 mg/dL Normal VLDL 25 Performed By: #### L500.4050, L500.4100 #### [facility] [address] [place], [place], [address] PROTHROMBIN TIME W/INR Collected: 05/13/2018 Status: F Source: [place] 11:18 AM [facility] REPOSITORY TYPE CODE TESTS RESULT OUT OF RANGE REFERENCE UNITS LAB L300.4150 11.7-14.9 SECONDS High PROTIME 28.4 LAB L300.4200 Normal INR 2.7 Performed By: #### L300.3900 #### [facility] [address] [place], [address] PROTHROMBIN TIME W/INR Collected: 04/18/2018 Status: F Source: [place] 11:14 AM [facility] REPOSITORY TYPE CODE TESTS RESULT OUT OF RANGE REFERENCE UNITS LAB L300.4150 11.7-14.9 SECONDS High PROTIME 24.6 LAB L300.4200 Normal INR 2.2 Performed By: #### L300.3900 #### [facility] [address] [place], [address] VENOUS DUPLEX LOWER Observed: 04/08/2018 Status: F Source: [place] EXTREMITY 4:06 PM [facility] REPOSITORY [facility] Cardiovascular Services [address] [place] [address] Venous Duplex US - Paulie Extrem 04/07/18 1000 MR#: [id number] Acct: [id number] Name: VALERIE CRAIN Rep #: [id number] : 1940 77 From: Higinio Patel MD Attending Dr: Higinio Patel MD Status: REG CLI Ordering Dr: Higinio Patel MD Date: 04/07/18 Location: [facility] Sex: F C Admitted: Reason For Study: LEG PAIN RIGHT LEFT CFV is compressible, spontaneous, phasic, CFV is compressible, spontaneous, phasic, competent and demonstrates normal competent, and demonstrates normal augmentation. augmentation. FV is compressible, spontaneous, phasic, FV is compressible, spontaneous, phasic, competent and demonstrates normal competent and demonstrates normal augmentation. augmentation. POP V is compressible, spontaneous, phasic, POP V is compressible, spontaneous, phasic, competent and demonstrates normal competent and demonstrates normal augmentation. augmentation. T/P Trunk is compressible. T/P Trunk is compressible. PTV is compressible. [...] reflux Procedure greater than .5 sec and diameter of .39 Exam performed in department. x .37 cm SSV competent. Interpretation Summary Deep veins of the lower extremities are bilaterally patent and compressible segmentally. There is no evidence of deep vein thrombosis on either side. Valvular competence appears intact within the proximal deep venous systems bilaterally. The right greater saphenous vein is occluded above the knee, consistent with a prior endothermal ablation procedure. The right greater saphenous vein appears incompetent below the knee. The left sapheno-femoral junction is competent . The left greater saphenous vein is patent and competent from the left sapheno-femoral junction to the proximal thigh. The left greater saphenous vein is not visualized from the proximal thigh to the knee. The left greater saphenous vein is incompetent below the knee. Small saphenous veins are patent and competent bilaterally. Ordering Physician: Higinio Patel Referring Physician: Sarai Bro Performed By: Tamanna Mittal RVT 04/08/18 1605 Date Higinio Patel MD CC: Sarai Bro [employer] DE[facility]; Higinio Patel MD Date Dictated: 04/07/18 1000 Date Transcribed: 04/08/18 160 Figure Model: Signed PROTHROMBIN TIME W/INR Collected: 03/18/2018 Status: F Source: [place] 11:18 AM [facility] REPOSITORY TYPE CODE TESTS RESULT OUT OF RANGE REFERENCE UNITS LAB L300.4150 11.7-14.9 SECONDS High PROTIME 24.3 LAB L300.4200 Normal INR 2.2 Performed By: #### L300.3900 #### [facility] [address] [place], [address] FEMUR MIN 2 VIEWS Observed: 03/02/2018 Status: F Source: [place] 11:28 AM [facility] REPOSITORY [facility] Imaging Services [address] [place] [address] Femur Min 2 Views MR#: [id number] Acct: [id number] Name: VALERIE CRAIN Rep #: [id number] : 1940 F 77 From: Christiano Croft MD PCP: Sarai Bro NP Status: REG CLI Study: Femur Min 2 Views Date of Exam: 03/02/18 Exam# [id number] Ordering Dr: Sarai Bro STUDY: X-RAY - RIGHT FEMUR REASON FOR STUDY: Female, 77 years old. Pain. No known injury. TECHNIQUE: Radiological exam, femur, 4 views COMPARISON: X-ray right hip 07/19/2014. FINDINGS: Normal visualized femur. Normal visualized soft tissue structure. There is degenerative arthrosis of the right hip, similar to previous exam. RAD/Femur Min 2 Views IMPRESSION: Normal x-ray examination of the femur. Degenerative arthrosis of the right hip. Electronically Signed: Christiano Croft MD at 6:11 EDT , Service support , CC: Sarai Bro NP Figure Model: Signed PROTHROMBIN TIME W/INR Collected: 02/18/2018 Status: F Source: [place] 10:26 AM [facility] REPOSITORY TYPE CODE TESTS RESULT OUT OF RANGE REFERENCE UNITS LAB L300.4150 11.7-14.9 SECONDS High PROTIME 24.6 LAB L300.4200 Normal INR 2.2 Performed By: #### L300.3900 #### [facility] [address] [place], [address] ECHOCARDIOGRAM COMPLETE Observed: 02/10/2018 Status: F Source: [place] 12:41 PM [facility] REPOSITORY [facility] Cardiovascular Services [address] [place] [address] Echo Complete 02/10/18 1100 MR#: [id number] Acct: [id number] Name: VALERIE CRAIN Rep #: [id number] : 1940 77 From: Amilcar Bernardo MD Attending Dr: Jennifer Goodwin Status: REG CLI Ordering Dr: Jennifer Goodwin Date: 02/10/18 Location: CVS Sex: F C Admitted: Reason For Study: DYSPNEA Procedure This was a 2D Doppler, Color Flow transthoracic echocardiogram. Exam performed in department. Left Ventricle Normal LV size. Transmitral and pulmonary venous doppler flow suggestive of impaired relaxation of left ventricle. Left ventricular systolic function is lower limits of normal. The estimated ejection fraction is 50 %. No regional wall motion abnormalities noted. Right Ventricle Normal RV size. Normal systolic function. Atria The left atrium is mildly enlarged. Normal right atrium. Mitral Valve Bileaflet diffuse mitral valve thickening. Mitral valve doming/Hockey Sticking. Peak transmitral valve gradient 6 mmHg. Mean transmitral valve gradient 3 mmHg. Mild mitral valve stenosis. Tricuspid Valve Normal tricuspid valve. Mild (1+) tricuspid valve insufficiency. Pulmonary artery systolic pressure is 26 mmHg. Aortic Valve Trisinus/trileaflet aortic valve. Pulmonic Valve Normal pulmonic valve. Great Vessels Normal aortic root. The pulmonary artery is normal size. Inferior vena cava collapse with respiration. Pericardium/Pleural No pericardial effusion. MMode/2D Measurements AND Calculations LVIDd: 4.5 cm IVSd: 0.68 cm LAV(MOD- bp): 89.1 ml LVIDs: 3.3 cm LVPWd: 0.93 cm LAV(MOD- bp) Indexed: 48.8 ml/m2 RVDd: 3.1 cm FS: 27.8 % LAV(MOD- sp2): 116.8 ml LAV(MOD-sp4): 65.8 ml LA A4 area: 23.6 cm2 RA A4 area: 18.8 cm2 Time Measurements MV jul time: 0.40 sec Doppler Measurements AND Calculations MV E max jaret: 94.1 cm/sec Lat Peak E' Jaret: 6.8 cm/sec Med Peak E' Jaret: 7.4 cm/sec MV A max jaret: 102.4 cm/sec E/E' lat: 13.7 E/E' med: 12.8 MV E/A: 0.92 MV V2 max: 121.1 cm/sec Ao V2 max: 108.4 cm/sec LV V1 max: 87.9 cm/sec MV max P.9 mmHg Ao max P.7 mmHg LV V1 max P.1 mmHg MV V2 mean: 83.1 cm/sec MV mean P.0 mmHg MV V2 VTI: 47.3 cm PA V2 max: 57.2 cm/sec TR max jaret: 239.6 cm/sec TR max P.0 mmHg Interpretation Summary Normal LV size. Transmitral and pulmonary venous doppler flow suggestive of impaired relaxation of left ventricle Left ventricular systolic function is lower limits of normal. The estimated ejection fraction is 50 %. Mitral valve doming/Hockey Sticking Mild mitral valve stenosis. Compared to prior study, there is no significant change. Ordering Physician: Jennifer Goodwin/Amilcar Bernardo Referring Physician: SARAI BRO Performed By: Mary Hines, BRANT, RVT 02/10/18 1241 Date Amilcar Bernardo MD CC: Sarai Bro [employer] DEAN; Jennifer Goodwin Date Dictated: 02/10/18 1100 Date Transcribed: 02/10/18 1241 Figure Model: Signed CARDIOLOGY VISIT Observed: 01/28/2018 Status: F Source: WHEELER REPORT 4:13 PM [facility] REPOSITORY [address] [place] [address] OFFICE VISIT Date of Service: 01/28/18 MR#: [id number] Acct: [id number] Name: VALERIE CRAIN Rep #: [id number] : 1940 Provider: Jennifer Goodwin Age/Sex: 77/F Location: [facility] Status: Signed HPI HPI Details: VALERIE CRAIN, is a 77 F who presents to the office today for a cardiovascular follow-up. She has a history of mitral valve disorder with mitral vavle repair in 1999, mild decrease in her left ventricular function, paroxysmal atrial fibrillation. From a cardiac standpoint, patient is doing well. She does not have any chest discomfort/heaviness/tightness. Her exercise tolerance is stable for her age. 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 She does have SOB with exertion, she can not tell me if this is [...] 6 M FU Allergies No Known Allergies Allergy (Verified 01/11/15 12:06) Medications Calcium (Elemental) [Caltrate-600] 600 mg PO DAILY@0800 01/11/15 [History Confirmed 01/28/18] Carvedilol [Coreg] 12.5 mg PO BID 01/11/15 [History Confirmed 01/28/18] Cholecalciferol (VIT D3) [Vitamin D] 2,000 unit PO DAILY 01/11/15 [History Confirmed 01/28/18] Cyanocobalamin [Vitamin B12] 1,000 mcg PO DAILY@0800 01/11/15 [History Confirmed 01/28/18] Furosemide [Lasix] 40 mg PO DAILY 01/11/15 [History Confirmed 01/28/18] Levothyroxine Sodium [Levoxyl] 25 mcg PO DAILY 01/11/15 [History Confirmed 01/28/18] Lisinopril [Zestril] 40 mg PO DAILY 01/11/15 [History Confirmed 01/28/18] amiodarone 200 mg tablet 100 mg PO .COMPLEX 07/26/17 [History Confirmed 01/28/18] simvastatin 20 mg tablet 20 mg PO QHS #90 tab 01/20/18 [Rx Confirmed 01/28/18] warfarin 2 mg tablet 2 mg PO .COMPLEX #120 tab 01/20/18 [Rx Confirmed 01/28/18] alendronate 70 mg tablet PO 28 Days #4 01/28/18 [History Confirmed 01/28/18] fluticasone 100 mcg-vilanterol 25 mcg/dose powder for inhalation 1 inh INHALATION QDAY 01/28/18 [History Confirmed 01/28/18] PFSH Medical History Dilated cardiomyopathy (Chronic) History of mitral valve disorder (Chronic) Paroxysmal atrial fibrillation (Chronic) 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) use of anticoagulants (Chronic) Benign essential HTN (Chronic) Surgical History History of appendectomy (Resolved) H/O mitral valve repair (Chronic) Family History Father , age 48 from [place] CAD (coronary artery disease) Sudden cardiac Myocardial infarction Mother , age 94, had CABG at age 85 CAD (coronary artery disease) Social History Smoking Status: Never smoker ROS Const Const: Negative for weakness, fatigue, fever(s) or headache(s) Eyes Eyes: Negative for blind spots, loss of peripheral vision or transient loss of vision ENT ENT: Negative for headache(s), dizziness, tinnitus or Nosebleed/epistaxis Cardio Chest Pain: No Palpitations: No Edema: Bilateral Muscle aches with walking: None Resp Respiratory: Positive for SOB with activity; negative for SOB at rest, SOB orthopnea\SOB lying down or Cough GI GI: Negative nausea, vomiting, heartburn or vomiting blood/hematemesis : Negative for hematuria Musc Musc: Negative for muscle aches/ myalgia Neuro Neuro: Negative for weakness, headache(s), [...] intact bilaterally Neck Neck: normal visual inspection, no lymphadenopathy and no JVD Carotids: Negative bruit Neck Mass: Negative Neck mass Chest Chest inspection: normal inspection of the chest and symmetric chest movement Auscultation: Bilateral: Clear to Auscultation Cardio Palpation: normal PMI Rate: regular rate Rhythm: regular rhythm Heart sounds: S1 normal and S2 normal; negative rub, gallop or murmur GI GI: normal to inspection, soft, no hepatosplenomegaly and bowel sounds present; negative tender Neuro General: alert, awake, oriented x3, CN's II-XI intact bilaterally and moves all extremities Extremities Pulses: Normal: Right Posterior Tibial Pulse, Left Posterior Tibial [...] medication. She is anticoagulated with a therapeutic INR goal of 2-3. 3. H/O mitral valve repair Z98.890 03/22/2000 [facility] for severe mitral regurgitation Plan Patient will continue with antibiotic prophylaxis. She will continue to be monitored by history, exam and echocardiograms as deemed appropriate. Orders Orders: 4. Dilated cardiomyopathy I42.0 Plan With patient's concerns over her worsening shortness of breath would like to obtain a Orders Orders: 5. Pure hypercholesterolemia E78.00; E78.0 Plan Recent lipid profile demonstrates total cholesterol 164, HDL 68, LDL 79. Will continue with current medical management. Plan Detail Other Orders Orders: Additional Comments Thank you for allowing us to participate in patient's plan of care, if you have any questions please do not hesitate to call. This note was generated using a voice recognition system and there may be incorrect words, spelling or punctuation errors that were not noted when reviewing the office note prior to saving. Follow Up 6 Months (REAL ESTATE REP) Coding Level of Care Code Off vis,est,level [...] Date (if applicable) CC: Sarai Bro NP PROTHROMBIN TIME W/INR Collected: 01/28/2018 Status: F Source: GEOVANNA 1:13 PM [facility] REPOSITORY TYPE CODE TESTS RESULT OUT OF RANGE REFERENCE UNITS LAB L300.4150 11.7-14.9 SECONDS High PROTIME 25.7 LAB L300.4200 Normal INR 2.3 Performed By: #### L300.3900 #### [facility] [address] [place], [address] DOWNTIME REPORT Observed: 01/27/2018 Status: F Source: GEOVANNA 12:01 PM [facility] REPOSITORY [facility] Medical Records Department [address] [place] [place] [address] Downtime Report MR#: [id number] Acct: [id number] Name: VALERIE CRAIN Rep #: [id number] : 1940 77 From: Anuj Webster PCP: Sarai Bro NP Status: REG RCR This patient was seen during an EMR downtime January 10, 2018 - January 17, 2018. This patient may have a combination of paper and electronic documentation or all paper documentation. All documentation is viewable within the e-chart portion of [employer] for each patient visit. PROTHROMBIN TIME W/INR Collected: 01/14/2018 Status: F Source: GEOVANNA 11:58 AM [facility] REPOSITORY TYPE CODE TESTS RESULT OUT OF RANGE REFERENCE UNITS LAB L300.4150 11.7-14.9 SECONDS High PROTIME 22.8 LAB L300.4200 Normal INR 2.0 Performed By: #### L300.3900 #### [facility] [address] [facility] [place], [address] URINALYSIS, ROUTINE Collected: 12/31/2017 Status: F Source: GEOVANNA (DIPSTICK) 8:45 AM [facility] REPOSITORY Order Comment: How was Urine Obtained? CLEAN CATCH TYPE CODE TESTS RESULT OUT OF RANGE REFERENCE UNITS LAB L400.3000 Yellow COLOR Normal Yellow LAB L400.3050 Clear Normal CLARITY Cloudy LAB L400.3200 Normal mg/dl Normal GLUCOSE, UR Normal LAB L400.3300 Negative mg/dL Normal BILIRUBIN URINE Negative LAB L400.3400 Negative mg/dl Normal KETONE UR Negative LAB L400.3465 1.002-1.030 Normal SP.GR. DIPSTX 1.020 LAB L400.3550 5.0 - 8.0 pH UR Normal 6.0 LAB L400.3600 Negative mg/dl PROT Normal DIPSTX Negative LAB L400.3700 Normal mg/dl Normal UROBILI Normal LAB L400.3750 Negative Normal NITRITE UR Negative LAB L400.3780 Negative /ul High 50 OCCULT BLOOD-UR LAB L400.3800 Negative /ul High LEUK ESTERASE 100 Performed By: #### L400.2011 #### [facility] [address] [place], [address] CBC W/DIFF, AUTOMATED Collected: 12/31/2017 Status: F Source: WHEELER 8:45 AM [facility] REPOSITORY TYPE CODE TESTS RESULT OUT OF RANGE REFERENCE UNITS LAB L100.1000 4.4-11.0 K/mm3 Normal WBC 5.6 LAB L100.1200 4.2-5.4 M/mm3 Normal RBC 4.38 LAB L100.1300 12.0-15.0 g/dl Normal HGB 13.0 LAB L100.1400 37-47 % Normal HCT 41.8 LAB L100.1500 81-99 fL Normal MCV 95.4 LAB L100.1600 27.0-32.0 pg Normal MCH 29.7 LAB L100.1700 32-36 g/gl Low MCHC 31.1 LAB L100.1810 11.6-14.6 % Normal RDW CV 14.1 LAB L100.1820 35.1-43.9 fl High RDW SD 49.6 LAB L100.1900 150-450 K/mm3 Normal PLT 232 LAB L100.2000 6.2-12.0 fl Normal MPV 11.1 LAB L100.2100 47-70 % Normal NEUT% 48.1 LAB L100.2200 19-41 % Normal LY% 38.2 LAB L100.2300 0-10 % Normal MONO% 9.7 LAB L100.2400 0-5 % Normal EO% 3.4 LAB L100.2500 0-1 % Normal BASO% 0.4 LAB L100.2550 0.0-0.9 % Normal IM GRAN % 0.200 Result Comment: IG% - Immature Granulocytes (promyelocytes, myelocytes and metamyelocytes) > 1% indicates that a LEFT SHIFT is Present. LAB L100.2620 2.0-7.7 X10 3/uL Normal Absolute Neut 2.7 LAB L100.2720 0.83-4.51 X10 3/ul Normal Absolute Lymph 2.13 Performed By: #### L100.0100 #### [facility] [address] [place], [address] PROTHROMBIN TIME W/INR Collected: 12/31/2017 Status: F Source: GEOVANNA 8:45 AM [facility] REPOSITORY TYPE CODE TESTS RESULT OUT OF RANGE REFERENCE UNITS LAB L300.4150 11.7-14.9 SECONDS High PROTIME 21.5 LAB L300.4200 Normal INR 1.9 Performed By: #### L300.3900 #### [facility] [address] [place], [address] MICROALB:CREAT Collected: 12/31/2017 Status: F [facility] AM [facility] REPOS[facility] TYPE CODE TESTS RESULT OUT OF RANGE REFERENCE UNITS LAB L501.1200 NO RANGE EST. mg/dL Normal UR CREAT 160.00 LAB L502.0500 NO RANGE EST. mg/L Normal 13.5 MICROALBUMIN ,UR LAB L502.0600 <30 mg/g CRE mg/g CRE Normal 8.4 MALB:CREAT Performed By: #### L502.0250 #### [facility] [address] [facility] [place], [place], [address] COMPREHENSIVE METABOLIC Collected: 12/31/2017 Status: F Source: GEOVANNA PROFIL 8:45 AM [facility] REPOS[facility]ORY TYPE CODE TESTS RESULT OUT OF RANGE REFERENCE UNITS LAB L501.0100 74-106 mg/dL Normal GLU 86 Result Comment: Please note revised GLUCOSE reference range effective 2017. LAB L501.1000 7-18 mg/dL High BUN 28 LAB L501.1100 0.55-1.02 mg/dL High CREAT,SERUM 1.05 Result Comment: The validity of the calculated GFR AND GFRAA in patients over 70 years has not been determined. Clinical correlation is essential. LAB L501.1110 >60 mL/min Low EST GFR 54 Result Comment: Non- GFR Calc LAB L501.1115 >60 mL/min Normal EST GFR - AA 65 Result Comment: GFR Calc LAB L501.1300 10-20 RATIO High BUN/CRE 26.7 LAB L501.1500 6.4-8.2 g/dL T Normal PROT 7.0 LAB L501.1800 3.2-5.0 g/dL Normal ALB 3.7 LAB L501.1950 2.2-4.2 g/dL Normal GLOB 3.3 LAB L501.2000 0.9-2.4 RATIO Normal A/G 1.1 LAB L501.2200 8.5-10.1 mg/dL CA Normal 8.5 LAB L501.4100 15-37 U/L Normal AST 22 LAB L501.4305 45-117 U/L Normal ALK P 73 LAB L501.4405 13-56 U/L Normal ALT 23 LAB L501.4600 0.20-1.00 mg/dL T Normal BILI 0.60 LAB L501.5300 136-145 mmol/L NA Normal 143 LAB L501.5600 3.5-5.1 mmol/L K Normal 4.6 LAB L501.5900 98-107 mmol/L CL Normal 107 LAB L501.6100 21.0-32.0 mmol/L Normal CO2 28.0 LAB L501.6200 5-15 Normal GAP 8 Performed By: #### L500.4050, L500.4100, L501.9520 #### [facility] [address] [facility] [place], [address] LIPID PROFILE Collected: 12/31/2017 Status: F Source: WHEELER 8:45 AM [facility] REPOSITORY TYPE CODE TESTS RESULT OUT OF RANGE REFERENCE UNITS LAB L501.4900 200 mg/dL Normal CHOL 164 Result Comment: <200 mg/dL Desirable 200-240 mg/dL Borderline >240 mg/dL High Risk LAB L501.5000 mg/dL Normal TRIG 85 Result Comment: The drugs N-Acetylcysteine and Metamizole may falsely depress this assay. Serum Triglycerides Reference Interval Normal <150 mg/dL Borderline high 150 - 199 mg/dL High 200 - 499 mg/dL Very High > or = 500 mg/dL LAB L501.6400 mg/dL Normal HDL 68 Result Comment: The drugs N-Acetylcysteine and Metamizole may falsely depress this assay. Reference Range HDL <40 mg/dL Low HDL Cholesterol HDL >or= 60 mg/dL High HDL Cholesterol LAB L501.6500 0-130 mg/dL Normal LDL 79 LAB L501.6600 5-40 mg/dL Normal VLDL 17 Performed By: #### L500.4050, L500.4100, L501.9520 #### [facility] [address] [place], [address] THYROID STIM HORMONE Collected: 12/31/2017 Status: F Source: GEOVANNA (TSH) 8:45 AM [facility] REPOSITORY TYPE CODE TESTS RESULT OUT OF RANGE REFERENCE UNITS LAB L501.9520 0.358-3.74 uIU/mL Normal TSH 2.92 Performed By: #### L500.4050, L500.4100, L501.9520 #### [facility] [address] [place], [address] PROTHROMBIN TIME W/INR Collected: 12/03/2017 Status: F Source: GEOVANNA 10:31 AM [facility] REPOSITORY TYPE CODE TESTS RESULT OUT OF RANGE REFERENCE UNITS LAB L300.4150 11.7-14.9 SECONDS High PROTIME 23.3 LAB L300.4200 Normal INR 2.1 Performed By: #### L300.3900 #### [facility] [address] [place], [address] PROTHROMBIN TIME W/INR Collected: 11/12/2017 Status: F Source: GEOVANNA 11:20 AM [facility] REPOSITORY TYPE CODE TESTS RESULT OUT OF RANGE REFERENCE UNITS LAB L300.4150 11.7-14.9 SECONDS High PROTIME 24.1 LAB L300.4200 Normal INR 2.2 Performed By: #### L300.3900 #### [facility] [address] [place], [address] DEXA BONE DENSITY Observed: 11/09/2017 Status: F Source: GEOVANNA STUDY 10:48 AM [facility] REPOSITORY [facility] Imaging [address] [address] Dexa Bone Density Study MR#: [id number] Acct: [id number] Name: VALERIE CRAIN Rep #: [id number] : 1940 F 77 From: Henry Jones MD PCP: Sarai Bro NP Status: REG CLI Study: Dexa Bone Density Study Date of Exam: 11/09/17 Exam# [id number] Ordering Dr: Sarai Bro STUDY: DUAL ENERGY X-RAY ABSORPTIOMETRY / DXA REASON FOR EXAM: Female, 77 years old. The patient is postmenopausal. Loss of height of 2 inches. TECHNIQUE: Bone Mineral Density (BMD) measurements of lumbar spine and bilateral hips were obtained. COMPARISON: Comparison is made with prior study dated March 19, 2015. FINDINGS: Lumbar Spine (L1-L4): g/cm2 (1.264) / T-score (0.7) / Z-score (2.5) Findings are suggestive of normal bone density with a low fracture risk. Left Femur Total: g/cm2 (0.937) / T-score (-0.6) / Z- score (1.4) Left Femoral Neck: g/cm2 (0.858) / T-score (-1.3) / Z- score (0.8) Right Femur Total: g/cm2 (0.884) / T-score (-1.0) / Z- score (0.9) Right Femoral Neck: g/cm2 (1.007) / T-score (-0.2) / Z-score (1.8) The T-Scores on the most recent prior examination were: Lumbar Spine (L1-L4): There has been improvement of bone density since the previous examination. Left Femur Total: which represents a worsening of 3.7%. Right Femur Total: which represents a worsening of 2.9%. BD/Dexa Bone Density Study IMPRESSION: The patient is considered osteopenic as outlined below according to World Kirill Organization (WHO) criteria with a moderate fracture risk. There has been worsening of bone density since the previous examination. Reference Information: The T-score is the [...] http://www.nof.org Electronically Signed: Henry Jones MD at 13:40 EDT Tel [phone], Service support , CC: Sarai Bro NP Figure Model: Signed PROTHROMBIN TIME W/INR Collected: 10/29/2017 Status: F Source: WHEELER 10:40 AM [facility] REPOSITORY TYPE CODE TESTS RESULT OUT OF RANGE REFERENCE UNITS LAB L300.4150 11.7-14.9 SECONDS High PROTIME 22.9 LAB L300.4200 Normal INR 2.0 Performed By: #### L300.3900 #### [facility] [address] [place], [address] PROTHROMBIN TIME W/INR Collected: 10/18/2017 Status: F Source: GEOVANNA 11:13 AM [facility] REPOSITORY TYPE CODE TESTS RESULT OUT OF RANGE REFERENCE UNITS LAB L300.4150 11.7-14.9 SECONDS High PROTIME 19.5 LAB L300.4200 Normal INR 1.6 Performed By: #### L300.3900 #### [facility] [address] [place], [place], [address] PROTHROMBIN TIME W/INR Collected: 10/01/2017 Status: F Source: GEOVANNA 10:28 AM [facility] REPOSITORY TYPE CODE TESTS RESULT OUT OF RANGE REFERENCE UNITS LAB L300.4150 11.7-14.9 SECONDS High PROTIME 19.8 LAB L300.4200 Normal INR 1.8 Performed By: #### L300.3900 #### [facility] [address] [place], [address] PROTHROMBIN TIME W/INR Collected: 09/16/2017 Status: F Source: GEOVANNA 12:53 PM [facility] REPOS[facility]ORY TYPE CODE TESTS RESULT OUT OF RANGE REFERENCE UNITS LAB L300.4150 11.7-14.9 SECONDS High PROTIME 24.8 LAB L300.4200 Normal INR 2.4 Performed By: #### L300.3900 #### [facility] [address] [place], [address] PROTHROMBIN TIME W/INR Collected: 09/10/2017 Status: F Source: GEOVANNA 11:26 AM [facility] REPOS[facility]ORY TYPE CODE TESTS RESULT OUT OF RANGE REFERENCE UNITS LAB L300.4150 11.7-14.9 SECONDS High PROTIME 21.2 LAB L300.4200 Normal INR 1.9 Performed By: #### L300.3900 #### [facility] [address] [place], [address] PROTHROMBIN TIME W/INR Collected: 09/03/2017 Status: F Source: GEOVANNA 10:04 AM [facility] REPOS[facility]ORY TYPE CODE TESTS RESULT OUT OF RANGE REFERENCE UNITS LAB L300.4150 11.7-14.9 SECONDS High PROTIME 16.5 LAB L300.4200 Normal INR 1.4 Performed By: #### L300.3900 #### [facility] [address] [place], [place], [address] PROTHROMBIN TIME W/INR Collected: 08/31/2017 Status: F Source: GEOVANNA 10:28 AM [facility] REPOS[facility] TYPE CODE TESTS RESULT OUT OF RANGE REFERENCE UNITS LAB L300.4150 11.7-14.9 SECONDS Normal PROTIME 14.3 LAB L300.4200 Normal INR 1.2 Performed By: #### L300.3900 #### [facility] [address] [place], [address] PROTHROMBIN TIME W/INR Collected: 08/10/2017 Status: F Source: GEOVANNA 11:11 AM [facility] REPOS[facility]ORY TYPE CODE TESTS RESULT OUT OF RANGE REFERENCE UNITS LAB L300.4150 11.7-14.9 SECONDS High PROTIME 21.6 LAB L300.4200 Normal INR 2.0 Performed By: #### L300.3900 #### [facility] [address] [place], [address] CBC W/DIFF, AUTOMATED Collected: 07/27/2017 Status: F Source: GEOVANNA 3:18 PM [facility] REPOS[facility]ORY TYPE CODE TESTS RESULT OUT OF RANGE REFERENCE UNITS LAB L100.1000 4.4-11.0 K/mm3 Normal WBC 7.7 LAB L100.1200 4.2-5.4 M/mm3 Low RBC 4.02 LAB L100.1300 12.0-15.0 g/dl Normal HGB 12.6 LAB L100.1400 37-47 % Normal HCT 38.9 LAB L100.1500 81-99 fL Normal MCV 96.8 LAB L100.1600 27.0-32.0 pg Normal MCH 31.3 LAB L100.1700 32-36 g/gl Normal MCHC 32.4 LAB L100.1810 11.6-14.6 % Normal RDW CV 13.8 LAB L100.1820 35.1-43.9 fl High RDW SD 47.3 LAB L100.1900 150-450 K/mm3 Normal PLT 209 LAB L100.2000 6.2-12.0 fl Normal MPV 11.3 LAB L100.2100 47-70 % Normal NEUT% 56.7 LAB L100.2200 19-41 % Normal LY% 31.1 LAB L100.2300 0-10 % Normal MONO% 8.9 LAB L100.2400 0-5 % Normal EO% 2.6 LAB L100.2500 0-1 % Normal BASO% 0.4 LAB L100.2550 0.0-0.9 % Normal IM GRAN % 0.300 Result Comment: IG% - Immature Granulocytes (promyelocytes, myelocytes and metamyelocytes) > 1% indicates that a LEFT SHIFT is Present. LAB L100.2620 2.0-7.7 X10 3/uL Normal Absolute Neut 4.4 LAB L100.2720 0.83-4.51 X10 3/ul Normal Absolute Lymph 2.38 Performed By: #### L100.0100, L300.3900 #### [facility] [address] [place], [address] PROTHROMBIN TIME W/INR Collected: 07/27/2017 Status: F Source: WHEELER 3:18 PM [facility] RE[facility] TYPE CODE TESTS RESULT OUT OF RANGE REFERENCE UNITS LAB L300.4150 11.7-14.9 SECONDS High PROTIME 22.8 LAB L300.4200 Normal INR 2.1 Performed By: #### L100.0100, L300.3900 #### [facility] [address] [place], [place], [address] CARDIOLOGY VISIT Observed: 07/27/2017 Status: F Source: WHEELER REPORT 3:03 PM [facility] REPOSITORY [facility] [address] [place] [address] OFFICE VISIT Date of Service: 07/27/17 MR#: [id number] Acct: [id number] Name: CE CRAIN Rep #: [id number] : 1940 Provider: Amilcar Bernardo MD Age/Sex: 77/F Location: [facility] Status: Signed HPI 6 M FU (pt asked to be seen sooner than Aug): Chief Complaint: Follow-up visit With complaints of bleeding Details: CE CRAIN is a 77 F who presents to the office today for a cardiovascular follow-up visit. She is a lady with a history of mitral valve disorder status post mitral valve repair in 1999. She also has mild left ventricular systolic dysfunction and paroxysmal atrial fibrillation. She returns for follow-up visit and her major complaint at this time is related to excessive easy bleeding. She has had no dizziness or diaphoresis [...] ft 4 in 07/27/17 Weight: 179 lb 07/27/17 Body Mass Index (BMI) 30.7 07/27/17 Blood Pressure 120/60 Intake Visit Reasons: 6 M FU (pt asked to be seen sooner than Aug) Is patient in pain?: No Allergies No Known Allergies Allergy (Verified 01/11/15 12:06) Medications Calcium (Elemental) [Caltrate-600] 600 mg PO DAILY@0800 01/11/15 [History Confirmed 07/26/17] Carvedilol [Coreg] 12.5 mg PO BID 01/11/15 [History Confirmed 07/26/17] Cholecalciferol (VIT D3) [Vitamin D] 2,000 unit PO DAILY 01/11/15 [History Confirmed 07/26/17] Cyanocobalamin [Vitamin B12] 1,000 mcg PO DAILY@0800 01/11/15 [History Confirmed 07/26/17] Fluticasone/Salmeterol [Advair 100/50 Diskus] 1 puff INHALATION BID 01/11/15 [History Confirmed 07/26/17] Furosemide [Lasix] 40 mg PO DAILY 01/11/15 [History Confirmed 07/26/17] Levothyroxine Sodium [Levoxyl] 25 mcg PO DAILY 01/11/15 [History Confirmed 07/26/17] Lisinopril [Zestril] 40 mg PO DAILY 01/11/15 [History Confirmed 07/26/17] Simvastatin [Zocor] 20 mg PO QHS 01/11/15 [History Confirmed 07/26/17] amiodarone 200 mg tablet 100 mg PO .COMPLEX 07/26/17 [History Confirmed 07/26/17] warfarin 2 mg tablet 2 mg PO .COMPLEX 07/26/17 [History Confirmed 07/26/17] glucosamine sulfate 500 mg tablet 500 mg PO BID 07/27/17 [History Confirmed 07/27/17] Ejection fraction %: 40 to 44 [facility] Medical History Dilated cardiomyopathy (Chronic) Long-term use of high-risk medication (Chronic) History of mitral valve disorder (Chronic) Paroxysmal atrial fibrillation (Chronic) MCFP (current) use of anticoagulants (Chronic) Benign essential HTN (Chronic) Dyslipidemia (Chronic) mitral valvuplasty (Chronic) Surgical History H/O mitral valve repair (Chronic) Family History Father , age 48 from [place] CAD (coronary artery disease) Sudden cardiac Myocardial infarction Mother , age 94, had CABG at age 85 CAD (coronary artery disease) Social History Smoking Status: Never smoker ROS Const Const: Positive for other (Concerned that even though INR 2.3, she has been bleeding very easily); negative for body ache, fever(s), chills, night sweats, daytime sleepiness, difficulty sleeping, weight gain, weight loss, increased appetite, poor appetite, anorexia, frequent falls, headache(s), weakness, fatigue or excessive sweating Eyes Eyes: Negative for blurry vision or double vision ENT ENT: Negative for balance problems, Negative for dizziness, Negative for headache(s) Cardio Chest Pain: No Palpitations: Negative for Yes or No Edema: None Muscle aches with walking: None Resp Respiratory: Negative for SOB with activity, SOB at rest, SOB orthopnea\SOB lying down, Coughing up blood/hemoptysis, chest congestion, pain on inspiration, snoring, stridor, wheezing, crackles, paroxysmal nocturnal dyspnea or other GI GI: Negative nausea, vomiting, heartburn, constipation, belching, bloating, cramping, vomiting blood/hematemesis, bright, red blood in stools, black,tarry stools, loose stools, Difficulty Swallowing or other Musc Musc: Negative for muscle aches/ myalgia, muscle weakness, joint pain or balance problems Neuro Neuro: Negative for dizziness, Negative for lightheadedness, Negative for near syncope, Negative for syncope, Negative for orthostatic symptoms, Negative for frequent falls, Negative for headache(s), Negative for weakness, Negative for confusion, Negative for memory loss, Negative for restless legs, Negative for blurry vision, Negative for double vision, Negative for vertigo, Negative for seizures, Negative for lack of coordination, Negative for other Endo Endo: Negative for fatigue, cold intolerance, heat intolerance, excessive sweating, flushing, increased thirst/drinking, increased hunger, hair loss, hair growth or other Cardiology Exam Const Appearance: cooperative, healthy appearing, well developed, well groomed and no acute distress Nutritional Appearance: well nourished and average body habitus Orientation: alert, awake and oriented x3 Head Head: normal to inspection, normocephalic and atraumatic Ears: hearing grossly normal bilaterally and external ears normal Nose: external nose normal, nasal mucous membranes and turbinates normal, nares normal, septum normal, no nasal discharge Face and Sinus: face symmetric Mouth: oral mucosae normal, tongue normal, oropharynx normal and moist mucous membranes Teeth and gingiva: dentition normal Throat: posterior oropharynx normal, tonsils normal and uvula midline Eyes General: appearance normal, both eyes and all related structures Eyelids: eyelids normal Conjunctivae: conjunctivae normal Pupils: PERRL, normal by confrontation and accommodation normal EOM: EOM intact bilaterally Neck Neck: normal visual inspection, trachea midline and no JVD JVD: +5 Carotids: normal carotid upstroke and bounding pulses Chest Chest inspection: normal inspection of the chest, symmetric chest movement and normal respiratory effort Auscultation: Bilateral: Clear to Auscultation Cardio Palpation: normal PMI Rate: regular rate Rhythm: regular rhythm Heart sounds: S1 normal, S2 normal and normal, physiologic split S2; negative rub, gallop or murmur GI GI: normal to inspection, soft, no hepatosplenomegaly and bowel sounds present Neuro General: alert, awake, oriented x3, [...] 45% with mitral valve doming and hockey sticking and mild mitral calcification. The transvalvular agent was estimated at 4 mmHg. The plan will be to continue her on the current dose of diuretic and beta-naomi. 2. Paroxysmal atrial fibrillation I48.0 Plan She appears to be maintaining sinus [...] as a platelet count to make sure that her bleeding is not related to excessive anticoagulation or interaction with her amiodarone. 4. 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 This appears to be global she has not had any heart failure symptoms and I would not recommend that we make any changes. 5. Dyslipidemia E78.5 Plan She remains on anticoagulation with a medium intensity statin her most recent [...] you for allowing me to participate in the care of your patient. Please don't hesitate to call if any issues arise Plan Detail Follow Up 6 Months (mmm) 07/27/17 1503 <Electronically signed by Amilcar Bernardo MD> Date Amilcar Bernardo MD Cosigner Signature: Date (if applicable) CC: Sarai Bro [facility] ALLERGIES DATE TYPE / CODE NAME / CODE REACTION SEVERITY SOURCE 01/11/2015 Drug No Known Unknown [facility] All[facility]/4160 Allergies/F00 Hospital 39335(SNOMED [id number](RXNOR Repository CT) M) ENCOUNTERS ENCOUNTERS ADMIT/DISCHARGE ACCOUNT ADMITTING ENCOUNTER LOCATION SOURCE NUMBER CLASS 07/21/2018 [id number] Ambulatory [place] 7 [facility] ing:LAB Repository 07/08/2018 [id number] [place] 8 [facility] ing:OPBI Repository 07/01/2018/ [id number] Ambulatory [place] 8 3 [facility] ing:LAB Repository 06/27/2018 [id number] Ambulatory Building:[facility] [place] Practices Repository 06/09/2018 [id number] Ambulatory [place] 5 [facility] ing:MTLAB Repository 06/07/2018/ [id number] Ambulatory [place] 8 1 [facility] ing:LAB Repository 05/13/2018/ [id number] Ambulatory [place] 8 6 [facility] ing:MTLAB Repository 04/18/2018/ [id number] Ambulatory [place] 8 9 [facility] ing:MTLAB Repository 04/07/2018 [id number] Ambulatory [place] 4 [facility] ing:CVS Repository 03/18/2018/ [id number] Ambulatory [place] 8 7 [facility] ing:MTLAB Repository 03/02/2018 [id number] Ambulatory [place] 1 [facility] ing:MTRAD Repository 02/18/2018/ [id number] Ambulatory [place] 8 3 [facility] Hospital ing:MTLAB Repository 02/10/2018 [id number] Ambulatory [place] 6 [facility] Hospital ing:CVS Repository 02/10/2018 [id number] Ambulatory BMSBuilding:W [place] 4 [facility] Repository 01/28/2018/ [id number] Ambulatory BMSBuilding:B [place] [address] [facility] Repository 01/28/2018/ [id number] Ambulatory [place] 8 8 [facility] ing:MTLAB Repository 01/21/2018 [id number] Ambulatory BMS [place] 2 [facility] Repository 12/31/2017/ [id number] Ambulatory [place] 8 3 [facility] Hospital ing:MTLAB Repository 12/30/2017 [id number] Ambulatory BMSBuilding:B [place] [address] [facility] Repository 12/03/2017/ [id number] Ambulatory [place] 8 4 [facility] ing:MTLAB Repository 11/09/2017 [id number] Ambulatory [place] 2 [facility] ing:OPBD Repository 11/08/2017 [id number] Ambulatory [place] 0 [facility] ing:MTLAB Repository 10/29/2017/ [id number] Ambulatory [place] 8 2 [facility] ing:MTLAB Repository 10/18/2017/ [id number] Ambulatory [place] 8 3 [facility] ing:MTLAB Repository 10/01/2017/ [id number] Ambulatory [place] 8 9 [facility] ing:MTLAB Repository 08/10/2017/ [id number] Ambulatory [place] 8 0 [facility] Hospital ing:MTLAB Repository 07/27/2017 [id number] Ambulatory [place] 1 [facility] ing:LAB Repository 07/27/2017/ [id number] Ambulatory BMSBuilding:B [place] [address] [facility] Repository PAYERS PAYERS ENCOUNTER GUARANTOR PAYER SUBSCRIBER SOURCE 07/21/2018 VALERIE [place] Primary VALERIE K [place] [id number] Insurance:MEDICARE MELLOTTDOB: [facility] [id number] Number[place] Repository [address]Fbn: [phone] [id number] [phone] () Date:2018-06-07 07/21/2018 Secondary VALERIE K [place] Insurance:AARPPolicy [facility] Number: [id number] Hospital [id number] Repository Date:1496-42-19HF [facility] 244114CDPSQHM, [place] [address]MK: 07/21/2018 Tertiary NOT GIVENUNK [place] Insurance:SELF PAY [facility] Number: Effective Repository Date:2018-07-11 07/08/2018 VALERIE Blount Primary VALERIE Blount [place] [id number] Insurance:MEDICARE MELLOTTDOB: [facility] PART A [facility] [id number] Memorial [facility] [place] Number: Repository [address]Ytr: 330 [id number] [phone] (HP) Date:2018-05-27 07/08/2018 Secondary VALERIE Blount [place] Insurance:AARPPolicy MELLOTTDOB: Community Number: [id number] Hospital [id number] Repository Date:2663-94-98NF [facility] 604254REQMKPV, [place] [address]SK: 07/08/2018 Tertiary NOT GIVENUNK [place] Insurance:SELF PAY [facility] Number: Effective Repository Date:2018-05-27 07/01/2018 VALERIE Blount Primary VALERIE Blount [place] [id number] Insurance:MEDICARE MELLOTTDOB: [facility] PART [facility] [id number] Memorial Hospital [place] Number: Repository [address]Bmu: 330 [id number] [phone] () Date:2018-06-07 07/01/2018 Secondary VALERIE Blount [place] Insurance:AARPPolicy MELLOTTDOB: Community Number: [id number] Hospital [id number] Repository Date:7630-06-16TF [facility] 641240XWWXOIS, [place] [address]PE: 07/01/2018 Tertiary NOT GIVENUNK [place] Insurance:SELF PAY [facility] Number: Effective Repository Date:2018-06-09 06/27/2018 Ce Blount Primary Ce Blount OHIP Practices MellottDOB: Insurance:MedicarePol MellottDOB: Repository [id number] icy Number: [id number] [place] [id number] 8 [place], [place] Date:2665-80-32Hhkv [place], [place] [address]Jux: (672) Name:[facility] Sofia [address]Zye: 514[place]GprzfuerFAIRFIELD [place], [place] [phone] (HP) (HP)Tel: [phone]: ([phone]) [phone] 06/27/2018 Secondary Ce K OHIP Practices Insurance:AARP/UHCPol MellottDOB: Repository icy Number: [id number] 8 [place] Date:0328-37-21[place], [place] Name:[facility] Sofia [address]Ywe: [phone] 304899Sbakzfu, [place] [phone] (HP) [id number]: 06/27/2018 Tertiary [facility] OHIP Practices [facility] [id number] Number: 8 [place] [id number] [place], [place] Date:2004-10-[birth year] 77[address]Qbl: [phone]) 8983-80-62Hxaw [phone] (HP) Name:[facility] 169465Kswzwva, [place] [address]YV: 06/09/2018 VALERIE K Primary VALERIE K [place] [id number] Insurance:MEDICARE MELLOTTDOB: [facility] PART A [facility] [id number], [place] Number: Repository [address]Sns: ([phone] [id number] [phone] (HP) Date:2017-10-01 06/09/2018 Secondary VALERIE K [place] Insurance:AARPPolicy MELLOTTDOB: Community Number: [id number] Hospital [id number] Repository Date:8565-11-84VK [address]ELKFDOL, [place] [address]WQ: 06/09/2018 Tertiary NOT GIVENUNK [place] Insurance:SELF PAY [facility] Number: Effective Repository Date:2018-06-09 06/07/2018 VALERIE K Primary VALERIE Blount [place] [id number] Insurance:MEDICARE MELLOTTDOB: Community BRAY PART A [facility] [id number], [place] Number: Repository [address]Mob: 330 [id number] [phone] () Date:2018-06-07 06/07/2018 Secondary VALERIE Blount [place] Insurance:AARPPolicy MELLOTTDOB: Community Number: [id number] Hospital [id number] Repository Date:6651-35-89JZ [address]OXFOBWZ, [place] [address]OA: 06/07/2018 Tertiary NOT GIVENUNK [place] Insurance:SELF PAY [facility] Number: Effective Repository Date:2018-06-07 05/13/2018 VALERIE K Primary VALERIE Blount [place] [id number] Insurance:MEDICARE MELLOTTDOB: Community BRAY PART A [facility] [id number] Memorial Hospital [place] Number: Repository [address]Xra: 330 [id number] [phone] () Date:2017-10-01 05/13/2018 Secondary VALERIE Blount [place] Insurance:AARPPolicy MELLOTTDOB: Community Number: [id number] Hospital [id number] Repository Date:3469-02-63VH [address]DDOBZBD, [place] [address]DQ: 05/13/2018 Tertiary NOT GIVENUNK [place] Insurance:SELF PAY [facility] Number: Effective Repository Date:2018-05-10 04/18/2018 VALERIE Blount Primary VALERIE Blount [place] [id number] Insurance:MEDICARE MELLOTTDOB: Community BRAY PART A [facility] [id number], [place] Number: Repository [address]Fnq: 330 [id number] [phone] () Date:2017-10-01 04/18/2018 Secondary VALERIE Jose Alejandro [place] Insurance:AARPPolicy MELLOTTDOB: Community Number: [id number] Hospital [id number] Repository Date:0886-89-09ZG [address]UYQZHZQ, [place] [address]XB: 04/18/2018 Tertiary NOT GIVENUNK [place] Insurance:SELF PAY [facility] Number: Effective Repository Date:2018-04-13 04/07/2018 VALERIE Blount Primary VALERIE Blount [place] [id number] Insurance:MEDICARE MELLOTTDOB: Community BRAY PART A [facility] [id number] Memorial Hospital [place] Number: Repository [address]Hie: 330 [id number] [phone] () Date:2018-04-01 04/07/2018 Secondary VALERIE Blount [place] Insurance:AARPPolicy MELLOTTDOB: Community Number: [id number] Hospital [id number] Repository Date:0394-38-07DP [address]BBCGRJU, [place] [address]KT: 04/07/2018 Tertiary NOT GIVENUNK [place] Insurance:SELF PAY [facility] Number: Effective Repository Date:2018-04-01 03/18/2018 VALERIE Blount Primary VALERIE Blount [place] [id number] Insurance:MEDICARE MELLOTTDOB: Community BRAY PART A [facility] [id number] Memorial [facility] [place] Number: Repository [address]Nmc: 330 [id number] [phone] () Date:2017-10-01 03/18/2018 Secondary VALERIE Blount [place] Insurance:AARPPolicy MELLOTTDOB: Community Number: [id number] Hospital [id number] Repository Date:4216-63-82OB [address]MCOZVNB, [place] [address]BF: 03/18/2018 Tertiary NOT GIVENUNK [place] Insurance:SELF PAY [facility] Number: Effective Repository Date:2018-03-11 03/02/2018 VALERIE K Primary VALERIE Blount [place] [id number] Insurance:MEDICARE MELLOTTDOB: Community BRAY PART A [facility] [id number] Memorial Hospital [place] Number: Repository [address]Joo: 541) [id number] [phone] (HP) Date:2018-03-02 03/02/2018 Secondary VALERIE Blount [place] Insurance:AARPPolicy MELLOTTDOB: Community Number: [id number] Hospital [id number] Repository Date:8056-56-85CC [address]MPUGDAF, [place] [address]LL: 03/02/2018 Tertiary NOT GIVENUNK [place] Insurance:SELF PAY [facility] Number: Effective Repository Date:2018-03-02 02/18/2018 VALERIE Blount Primary VALERIE Blount [place] [id number] Insurance:MEDICARE MELLOTTDOB: Community BRAY PART A [facility] [id number], [place] Number: Repository [address]Eze: 330 [id number] [phone] () Date:2017-10-01 02/18/2018 Secondary VALERIE Blount [place] Insurance:AARPPolicy MELLOTTDOB: Community Number: [id number] Hospital [id number] Repository Date:2253-19-97TQ [address]NWBCIII, [place] [address]TF: 02/18/2018 Tertiary NOT GIVENUNK [place] Insurance:SELF PAY [facility] Number: Effective Repository Date:2018-02-04 02/10/2018 VALERIE Bl[place] Primary VALERIE Blount [place] [id number] Insurance:MEDICARE MELLOTTDOB: [facility] PART A [facility] [id number], [place] Number: Repository [address]Esg: 330 [id number] [phone] () Date:2018-01-28 02/10/2018 Secondary VALERIE Bl[place] Insurance:AARPPolicy MELLOTTDOB: Community Number: [id number] Hospital [id number] Repository Date:0188-12-16PJ [address]OYXAHJC, [place] [address]HP: 02/10/2018 Tertiary NOT GIVENUNK [place] Insurance:SELF PAY [facility] Number: Effective Repository Date:2018-01-28 02/10/2018 VALERIE Blount Primary VALERIE Blount [place] [id number] Insurance:MEDICARE MELLOTTDOB: Community BRAY PART A [facility] [id number] Memorial Hospital [place] Number: Repository [address]Nry: 330 [id number] [phone] (HP) Date:2018-01-28 02/10/2018 Secondary VALERIE Jose Alejandro [place] Insurance:AARPPolicy MELLOTTDOB: Community Number: [id number] Hospital [id number] Repository Date:3973-47-92NL [address]VYY[place], [place] [address]WP: 02/10/2018 Tertiary NOT GIVENUNK [place] Insurance:SELF PAY [facility] Number: Effective Repository Date:2018-02-10 01/28/2018 VALERIE Blount Primary VALERIE Blount [place] [id number] Insurance:MEDICARE MELLOTTDOB: Community BRAY PART A [facility] [id number] [place] Number: Repository [address]Usl: 330 [id number] [phone] () Date:2017-07-27 01/28/2018 Secondary VALERIE Blount [place] Insurance:AARPPolicy MELLOTTDOB: Community Number: [id number] Hospital [id number] Repository Date:6919-11-48OH [address]DLQOQJC, [place] [address]UM: 01/28/2018 Tertiary NOT GIVENUNK [place] Insurance:SELF PAY [facility] Number: Effective Repository Date:2018-01-28 01/28/2018 VALERIE Blount Primary VALERIE Blount [place] [id number] Insurance:MEDICARE MELLOTTDOB: Community BRAY PART A [facility] [id number], [place] Number: Repository 130[address]Lzq: 330 [id number] [phone] (HP) Date:2017-10-01 01/28/2018 Secondary VALERIE Jose Alejandro [place] Insurance:AARPPolicy MELLOTTDOB: Community Number: [id number] Hospital [id number] Repository Date:4994-49-37BJ [facility] 629211VPKAXIA, [place] [address]QX: 01/28/2018 Tertiary NOT GIVENUNK [place] Insurance:SELF PAY [facility] Number: Effective Repository Date:2018-01-07 01/21/2018 VALERIE Blount Primary VALERIE Blount [place] [id number] Insurance:MEDICARE MELLOTTDOB: Community BRAY PART A [facility] [id number] Regional Med[facility] Number: Repository [address]Ohx: 330 [id number] [phone] () Date:2018-01-21 01/21/2018 Secondary VALERIE K [place] Insurance:AARPPolicy MELLOTTDOB: Community Number: [id number] Hospital [id number] Repository Date:1930-27-17DC [address], [place] [address]SS: 01/21/2018 Tertiary NOT GIVENUNK [place] Insurance:SELF PAY [facility] Number: Effective Repository Date:2018-01-21 12/31/2017 VALERIE Blount Primary VALERIE Blount [place] [id number] Insurance:MEDICARE MELLOTTDOB: Community BRAY PART A [facility] [id number] Memorial Hospital [place] Number: Repository [address]Mrs: 330 [id number] [phone] () Date:2017-10-01 12/31/2017 Secondary VALERIE K [place] Insurance:AARPPolicy MELLOTTDOB: Community Number: [id number] Hospital [id number] Repository Date:4296-18-38LK [facility] 675187IZTGNFD, [place] [address]AZ: 12/31/2017 Tertiary NOT GIVENUNK [place] Insurance:SELF PAY [facility] Number: Effective Repository Date:2017-12-07 12/30/2017 VALERIE K Primary VALERIE Blount [place] [id number] Insurance:MEDICARE MELLOTTDOB: Community BRAY PART A [facility] [id number] [facility] Number: Repository [address]Rvb: 330 [id number] [phone] () Date:2017-12-30 12/30/2017 Secondary VALERIE Blount [place] Insurance:AARPPolicy MELLOTTDOB: Community Number: [id number] Hospital [id number] Repository Date:1127-38-05UV [facility] 231657VCVYAZP, [place] [address]UB: 12/30/2017 Tertiary NOT GIVENUNK [place] Insurance:SELF PAY [facility] Number: Effective Repository Date:2017-12-30 12/03/2017 VALERIE Blount Primary VALERIE Blount [place] [id number] Insurance:MEDICARE MELLOTTDOB: [facility] PART A [facility] [id number], [place] Number: Repository 6[address]Qdw: 330 [id number] [phone] () Date:2017-10-01 12/03/2017 Secondary VALERIE Blount [place] Insurance:AARPPolicy MELLOTTDOB: Community Number: [id number] Hospital [id number] Repository Date:2401-88-44JI [facility] 590062IXEFQZA, [place] [address]NS: 12/03/2017 Tertiary NOT GIVENUNK [place] Insurance:SELF PAY [facility] Number: Effective Repository Date:2017-11-08 11/09/2017 VALERIE Blount Primary VALERIE Blount [place] [id number] Insurance:MEDICARE MELLOTTDOB: [facility] PART A [facility] [id number] Memorial [facility] [place] Number: Repository [address]Ftz: 330 [id number] [phone] () Date:2017-10-20 11/09/2017 Secondary VALERIE Blount [place] Insurance:AARPPolicy MELLOTTDOB: Community Number: [id number] Hospital [id number] Repository Date:4088-47-90DL [facility] 038321YVAROGG, [place] [address]LO: 11/09/2017 Tertiary NOT GIVENUNK [place] Insurance:SELF PAY [facility] Number: Effective Repository Date:2017-10-20 11/08/2017 VALERIE Blount Primary VALERIE Blount [place] [id number] Insurance:MEDICARE MELLOTTDOB: Community BRAY PART A [facility] [id number] Memorial Hospital [place] Number: Repository [address]Rnd: 330 [id number] [phone] (HP) Date:2017-09-10 11/08/2017 Secondary VALERIE Blount [place] Insurance:AARPPolicy MELLOTTDOB: Community Number: [id number] Hospital [id number] Repository Date:5629-89-68LZ [facility] 683628LPVMMMW, [place] [address]RC: 11/08/2017 Tertiary NOT GIVENUNK [place] Insurance:SELF PAY [facility] Number: Effective Repository Date:2017-11-08 10/29/2017 CE Blount Primary CE Blount [place] [id number] Insurance:MEDICARE MELLOTTDOB: Community BRAY PART A [facility] [id number] Memorial [facility] [place] Number: Repository [address]Tle: 330 [id number] [phone] (HP) Date:2017-10-01 10/29/2017 Secondary CE Blount [place] Insurance:AARPPolicy MELLOTTDOB: Community Number: [id number] Hospital [id number] Repository Date:1919-79-80ND [address]PMA[place]ON, [place] [address]GH: 10/29/2017 Tertiary NOT GIVENUNK [place] Insurance:SELF PAY [facility] Number: Effective Repository Date:2017-10-01 10/18/2017 CE Blount Primary CE Blount [place] [id number] Insurance:MEDICARE MELLOTTDOB: Community BRAY PART A [facility] [id number] [facility] Number: Repository [address]Lhe: 330 [id number] [phone] (HP) Date:2017-09-10 10/18/2017 Secondary CE Blount [place] Insurance:AARPPolicy MELLOTTDOB: Community Number: [id number] Hospital [id number] Repository Date:8907-80-89VC [facility] 846571BZEVHVX, [place] [address]VD: 10/18/2017 Tertiary NOT GIVENUNK [place] Insurance:SELF PAY [facility] Number: Effective Repository Date:2017-10-07 10/01/2017 CE Blount Primary CE Blount [place] [id number] Insurance:MEDICARE MELLOTTDOB: Community BRAY PART A [facility] [id number] Memorial Hospital [place] Number: Repository [address]Jba: 330 [id number] [phone] () Date:2017-09-10 10/01/2017 Secondary CE Blount [place] Insurance:AARPPolicy MELLOTTDOB: Community Number: [id number] Hospital [id number] Repository Date:1688-02-80HZ [address]LHMEIQW, [place] [address]VP: 10/01/2017 Tertiary NOT GIVENUNK [place] Insurance:SELF PAY [facility] Number: Effective Repository Date:2017-09-10 08/10/2017 CE Blount Primary CE Blount [place] [id number] Insurance:MEDICARE MELLOTTDOB: Community BRAY PART A [facility] [id number] Regional [facility] Number: Repository [address]Tor: 330 [id number] [phone] () Date:2004-06-09 08/10/2017 Secondary CE Blount [place] Insurance:AARPPolicy MELLOTTDOB: Community Number: [id number] Hospital [id number] Repository Date:4669-52-50WA [address]PSLWUEH, [place] [address]XD: 08/10/2017 Tertiary NOT GIVENUNK [place] Insurance:SELF PAY [facility] Number: Effective Repository Date:2017-08-09 07/27/2017 CE Blount Primary CE Blount [place] [id number] Insurance:MEDICARE MELLOTTDOB: Community BRAY PART A [facility] [id number] Regional Med[facility], [place] Number: Repository [address]Yzl: 330 [id number] [phone] () Date:2017-07-27 07/27/2017 Secondary CE [place] Insurance:AARPPolicy MELLOTTDOB: Community Number: [id number] [id number] Repository Date:3047-22-17[id number], [place] [address]GL: 07/27/2017 Tertiary NOT GIVENUNK [place] Insurance:SELF PAY [facility]: Effective Repository Date:2017-07-27 07/27/2017 CE K Primary CE [place] [id number] Insurance:MEDICARE MELLOTTDOB: [facility] PART A [facility] [id number] Repository [id number]: [phone] [id number] [phone] () Date:2017-07-14 07/27/2017 Secondary CE [place] Insurance:AARolicy MELLOTTDOB: Community Number: [id number] [id number] Repository Date:8470-09-28[address], [place] [address]CK: 07/27/2017 Tertiary NOT GIVENUNK [place] Insurance:SELF PAY [facility] Number: Effective Repository Date:2017-07-14
== END ==
PROVIDERS: Family Provider Nurse Practitioner; PCP Nurse Practitioner; Referring Provider Nurse Practitioner; Visit Provider Nurse Practitioner
DX: Z12.31 Encounter for screening mammogram for malignant neoplasm of breast (principal)
CPT/HCPCS: 77063; 77067

== ENCOUNTER 2018-07-29 10:49 | Outpatient (RCR) | payer MEDICARE, OTHER, SELFPAY ==
[2018-07-29 14:24] LABS: International Normalized Ratio 2.5
== END 2018-07-29 11:00 | disposition home or self-care (01) ==
LOC: LAB 10:49
PROVIDERS: Family Provider Nurse Practitioner; PCP Nurse Practitioner; Referring Provider Internal Medicine Cardiovascular Disease; Visit Provider Internal Medicine Cardiovascular Disease
DX: I48.0 Paroxysmal atrial fibrillation (principal); E03.9 Hypothyroidism, unspecified; E53.8 Deficiency of other specified B group vitamins; E78.00 Pure hypercholesterolemia, unspecified; Z79.01 Long term (current) use of anticoagulants
CPT/HCPCS: 36415; 85610

== ENCOUNTER 2018-08-26 10:16 | Outpatient (RCR) | payer MEDICARE, OTHER, SELFPAY ==
[2018-08-26 12:37] LABS: International Normalized Ratio 2.4; Prothrombin Time (Protime)PT. 26.5 SECONDS (11.7-14.9)
--- OUTSIDE RECORDS SUMMARY | 2018-10-30 18:16 | XMS RPT_ITS | Continuity of Care Document ---
:1940 Author Organization [facility] Address [address] [facility] [address] [place] [address] Phone Care Team Providers Name Role Phone Tiffaniewojciechyin CARNEY, Sarai Moon Unavailable Amanda CHRISTIANSEN, Higinio Longoria Unavailable Turner CHRISTIANSEN, Nahun Plaza Unavailable [facility] BC, Eugenie Tovar Unavailable Rosa CHRISTIANSEN, [...] for 0 days Refills: 0 Ordered:22-Apr-2011 Slarb ASSEMBLY DETAILER, Giselle Start : 22-Apr-2011 Active COQ10, 100MG [...] : 18-Aug-2013 End : 28-Aug-2013 Inactive DRISDOL, [id number] (Oral Capsule) 1 Capsule twice weekly for [...] Lower Extremity Result: Comments: See Note; NOTES: [facility] Cardiovascular Services [address] [place] [address] Venous Duplex US - Paulie Extrem 04/07/18 1000 MR#: [id number] Acct: [id number] Name: VALERIE CRAIN Rep #: [id number] : 1940 77 From: Higinio Patel MD [...] Dictated: 04/07/18 1000 Date Transcribed: 04/08/18 1605 Spool Hauler: Signed 02-Mar-2018 Femur Min 2 Views Result: Comments: See Note; NOTES: [facility] Imaging Services [address] [place] [address] Femur Min 2 Views MR#: [id number] Acct: [id number] Name: VALERIE CRAIN Rep #: [id number] : 1940 F 77 From: Christiano Croft MD PCP: Sarai Bro NP Status: REG CLI Study: Femur Min 2 Views Date of Exam: 03/02/18 Exam# [id number] Ordering Dr: Sarai Bro STUDY: X-RAY - [...] vice support , CC: Sarai Bro NP Spool Hauler: Signed 10-Feb-2018 Echocardiogram Complete Result: Comments: See Note; NOTES: [facility] Cardiovascular Services [address] [place] [address] Echo Complete 02/10/18 1100 MR#: [id number] Acct: [id number] Name: VALERIE CRAIN Rep #: [id number] : 1940 77 From: Amilcar Paz MD Attending Dr: Jennifer Goodwin Status: REG CLI Ordering Dr: Jennifer Goodwin Date: 02/10/18 Location: [facility] Sex: F C Admitted: [facility] n For Study: DYSPNEA Procedure This was [...] Date Amilcar Paz MD CC: Sarai Bro BAND BIAS MACHINE OPERATOR; Jennifer Goodwin Date Dictated: 02/10/18 1100 Date Transcribed: 02/10/18 124 Spool Hauler: Signed 28-Jan-2018 Cardiology Visit Report Result: Comments: See Note; NOTES: [facility] [address] [place] [address] OFFICE VISIT Date of Service: 01/28/18 MR#: [id number] Acct: [id number] Name: VALERIE CRAIN Rep #: [id number] : 1940 Provider: Jennifer Goodwin Age/Sex: 77/F Location[place] [facility] Status: Signed HPI HPI Details: VALERIE CRAIN, [...] for her age. 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 This patient may have a combination of pa per and electronic documentation or all paper documentation. All documentation is viewable within the e-chart portion of [facility] for each patient visit. 09-Nov-2017 Dexa Bone Density Study Result: Comments: See Note; NOTES: [facility] Imaging Services [address] [place] [place] [address] Dexa Bone Density Study MR#: [id number] Acct: [id number] Name: VALERIE CRAIN Rep #: [id number] : 1940 F 77 From: Henry Jones MD PCP: Sarai Bro NP Status: REG CLI Study: Dexa Bone Density Study Date of Exam: 11/09/17 Exam# [id number] Ordering Dr: Sarai Bro STUDY: DUAL E [...] Henry Jones MD at 13:40 EDT Tel [phone], Service support , CC: Sarai Bro NP Spool Hauler: Signed 27-Jul-2017 Cardiology Visit Report Result: Comments: See Note; NOTES: [facility] [address] [place] [address]. 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) Benign essential HTN (Chronic) Dyslipidemia (Chronic) mitral maria m vuplasty (Chronic) Surgical History H/O mitral valve repair (Chronic) Family History Father , age 48 from [place] CAD (coronary artery disease) Sudden cardiac Myocardial [...] Detail Follow Up 6 Months (mmm) 07/27/17 6557 <Electronically signed by Amilcar Paz MD> Date Amilcar Monahanignjayden Signature: Date (if applicable) CC: Sarai Tiffaniebonita BAND BIAS MACHINE OPERATOR 17-May-2017 SCREENING MAMM (CAD), BILAT Result: Comments: See Note; NOTES: [facility] Imaging Services [address] [place] [address] SCREENING MAMM (CAD), BILAT MR#: [id number] Acct: [id number] Name: SEAN CRAIN Rep #: [id number] : 1940 F 76 From: Henry Jones MD PCP: Sarai Bro Status: REG CLI Study: SCREENING MAMM (CAD), BILAT Date of Exam: 05/17/17 Exam# [id number] Ordering Dr: Sarai Bro MAMMOGRAPH Y - [...] delay biopsy of a clinically suspicious abnormality. [id number] Electronically Signed: Henry Jones MD at 10:21 EDT Tel [phone], Service support , CC: Sarai Bro Spool Hauler: Signed 27-Feb-2017 Carotid Duplex Ultrasound Result: Comments: See Note; NOTES: [facility] Cardiovascular Services [address] [place] [address] Carotid Duplex Ultrasound 02/26/17 1046 MR#: [id number] Acct: [id number] Name: SEAN ABEBE Rep #: [id number] : 1940 76 From: Malcolm Hill MD Attending Dr: Jennifer Goodwin Status: REG CLI Ordering Dr: Jennifer Goodwin Date: 02/26/17 Location: [facility] Sex: F C Admitte d: Reason For [...] the left bulb. Procedure Carotid Duplex 9 0040. The exam was diagnostic. Exam performed in [...] Dictated: 02/26/17 1046 Date Transcribed: 02/27/17 1103 Spool Hauler: Signed 03-Sep-2016 Chest PA and Lateral Result: Comments: See Note; NOTES: [facility] Imaging Services [address] [place] [address] Verdana 4d Chest PA and Lateral MR#: [id number] Acct: [id number] Name: SEAN CRAIN Rep # : [id number] : 1940 F 76 From: Henry Jones MD PCP: Sarai Bro Status: REG CLI Study: Chest PA and Lateral Date of Exam: 09/03/16 Exam# [id number] Ordering Dr: Nahun Vazquez MD STUD Y: [...] Henry diop MD at 12:41 EST Tel [phone], Service support [phone], CC: Sarai Bro; Nahun Vazquez MD Spool Hauler: Signed 28-Aug-2016 Echocardiogram Complete Result: Comments: See Note; NOTES: [facility] Cardiovascular Services [address] [place] [address] Echo Complete 08/28/16 1003 MR#: [id number] Acct: [id number] Name: SEAN CRAIN p #: [id number] : 1940 76 From: Amilcar Paz MD Attending Dr: Tova CHRISTIANSEN,Amilcar Status: REG CLI Ordering Dr: Amilcar Paz MD Date: 08/28/16 Location: [facility] Sex: F C Admitted: Reason For Study: AT [facility] Procedure This was a 2D [...] Dictated: 08/28/16 1003 Date Transcribed: 08/28/16 1225 Spool Hauler: Signed 24-Apr-2016 Bilat Scrn Digital AND CAD Result: Comments: See Note; NOTES: [facility] Imaging Services [address] [facility] [place] [address] Verdana 4d Bilat Scrn Digital AND CAD MR#: [id number] Acct: [id number] Name: SEAN CRAIN Rep #: [id number] : 1940 F 75 From: Henry Jones MD PCP: Sarai Bro Status: REG CLI Study: Bilat Scrn Digital AND CAD Date of Exam: 04/24/16 Exam# [id number] Ordering Dr: Sarai Bro MAMMOGRAPHY - BILATERAL [...] delay biopsy of a clinically suspicious abnormality. [id number] Electronically Signed: Henry Jones MD at 10:58 EDT Tel [phone], Service support [phone], CC: Sarai Bro Spool Hauler: Signed 04-Mar-2016 PT D/C Summary (1) Result: Comments: See Note; NOTES: [facility] [address] [place] [address]. [address] [place] [address] Fax REHABILITATION SE RVICES DISCHARGE SUMMARY MR#: [id number] Acct: [id number] Name: SEAN CRAIN Rep #: [id number] : 1940 75 From: Giselle NELSON Referring [...] please feel free to call me at [phone]. Thank you for the referral of this patie nt. Sincerely, Giselle Yan <Electronically signed by Giselle NELSON> 03/04/16 1917 CC: Sarai Bro Signed 04-Feb-2016 Inital Evaluation (1) - PT Result: Comments: See Note; NOTES: [facility] [address] [place] [address] Fax REHABILITATION SE MEDEROS INITIAL EVALUATION MR#: [id number] Acct: [id number] Name: SEAN CRAIN Rep #: [id number] : 1940 75 From: Giselle Yan MPT Referring Dr.: Sarai Bro Status: REG RCR Insurance: MEDICARE PART A B [facility] Patient's Visit Information SEAN CRAIN is [...] to be FAXED BACK to us at [phone] for Medicare purposes . Please let me know if there are questions or concerns regarding this plan of care. Physician Signature: Date: <Electronical ly signed by Giselle Yan MPT> 02/04/16 1628 CC: Sarai Bro Signed For Medicare only, by signing this I certify the plan of care. Physicians Signature Date 28-Jan-2016 Knee 4 or More Views Result: Comments: See Note; NOTES: [facility] Imaging Services [address] [place] [address] Verdana 4d Knee 4 or More Views MR#: [id number] Acct: [id number] Name: SEAN DWYER Rep #: [id number] : 1940 F 75 From: Shreyas Beaver MD PCP: Sarai Bro Status: REG CLI Study: Knee 4 or More Views Date of Exam: 01/28/16 Exam# [id number] Ordering Dr: Sarai Bro STUDY: X-RAY - [...] MD at 19:39 EDT , Service support [phone], ORDER # : [id number] RAD/Knee 4 or More Views IMPRESSION: No acute abnormality. Mild degenerative changes. Electronically Signed: Shreyas Beaver MD at 19:39 EDT , Service sup port [phone], CC: Sarai Bro Spool Hauler: Signed 28-Jan-2016 L/S Spine Min 4 Views Result: Comments: See Note; NOTES: [facility] Imaging Services [address] [place] [address] Verdana 4d L/S Spine Min 4 Views MR#: [id number] Acct: [id number] Name: SEAN BERRIOS Rep #: [id number] : 1940 F 75 From: Shreyas Beaver MD PCP: Sarai Bro Status: REG CLI Study: L/S Spine Min 4 Views Date of Exam: 01/28/16 Exam# [id number] Ordering Dr: Shital Bro STUDY: X-RAY - [...] MD at 19:40 EDT , Service support [phone], Fax RAD/L/S Spine Min 4 Views IMPRESSION: No acute abnormality. Mild to moderate degenerative changes. Electronically Signed: Shreyas Beaver MD at 19:40 EDT T el [phone], Service support [phone], CC: Sarai Bro Spool Hauler: Signed 19-Mar-2015 Dexa Bone Density Study (HP) Result: Comments: See Note; NOTES: [facility] Imaging Services [address] [place] [address] Bone Density Report MR#: [id number] Acct: [id number] Name: SEAN CRAIN Rep #: [id number] : 1940 F 74 From: Henry Jones MD PCP: Sarai Bro Status: REG CLI Study: Dexa Bone Density Study (HP) Date of Exam: 03/19/15 Exam# [id number] Ordering Dr: Sarai Bro STUD Y: DUAL [...] Henry Jones MD at 14:35 EDT Tel [phone], WearPointic e support [phone], CC: Sarai Bro Spool Hauler: Signed 12-Mar-2015 Jero Edwards Digital AND CAD Result: Comments: See Note; NOTES: [facility] Imaging Services [address] [place] [address] Breast Imaging Report MR#: [id number] Acct: [id number] Name: SEAN CRAIN Rep #: [id number] : 1940 F 74 From: Henry Jones MD PCP: Sarai Bro Status: REG CLI Study: Jero Edwards Digital AND CAD Date of Exam: 03/12/15 Exam# [id number] Ordering Dr: Sarai Bro MAMM OGRAPHY - [...] Jones MD 23/03/04 at 9:59 EDT Tel [phone], Service support [phone], CC: Sarai Bro Spool Hauler: Signed 16-Jan-2015 Operative Report Result: Comments: See Note; NOTES: [facility] Medical Records Department [address] [place] [address] Operative Report MR#: [id number] Acct: [id number] Name: SEAN CRAIN Rep #: [id number] : 1940 74 From: Amilcar Paz MD [...] care. Amilcar Paz MD T: NTS JOB: [id number] 01/16/15 0901 <Electronically signed by Amilcar Paz MD&amp ;#62; Date Amilcar Paz MD CC: Sarai Bro; Amilcar Paz MD Date Dictated: 01/14/15 1319 Date Transcribed: 01/14/151318 Spool Hauler: Signed 15-Jan-2015 Consultation Result: Comments: See Note; NOTES: [facility] Medical Records Department [address] [place] [address] Consultation MR#: [id number] Acct: [id number] Name: SEAN CRAIN Rep #: [id number] : 1940 74 From: Armando Waite MD [...] HENDERSON C: Amilcar Bro T: NTS JOB: [id number] 01/15/15 0643 <Electronically signed by Armando Waite MD> Date Armando Waite MD CC: Sarai Bro; Armando Waite MD; Amilcar Paz MD Date Dictated: 01/14/15 1357 Date Transcribed: 01/14/151356 Spool Hauler: Signed 07-Jan-2015 Chest PA and Lateral Result: Comments: See Note; NOTES: [facility] Imaging Services [address] [place] [address] Radiology Report MR#: [id number] Acct: [id number] Name: SEAN CRAIN Rep #: [id number] : 1940 F 74 From: Henry Jones MD PCP: Sarai Bro Status: PRE CLI Study: Chest PA and Lateral Date of Exam: 01/07/15 Exam# [id number] Ordering Dr: Amilcar Paz MD STUDY: X-RA [...] Henry Jones MD at 14:28 EDT Tel [phone], Service support [phone], RAD/Chest PA and Lateral IMPRESSION: Hyperinflation. No acute abnormality is seen. Electronically Signed: Henry Jones MD 2014 at 14:28 EDT Tel [phone], Service support [phone], CC: Sarai Bro; Amilcar Paz MD Spool Hauler: Signed 24-Dec-2014 Echocardiogram Complete Result: Comments: See Note; NOTES: [facility] Cardiovascular Services [address] [facility] [address] Echo Complete 12/24/14 1003 MR#: [id number] Acct: [id number] Name: SEAN CRAIN Rep #: [id number] : 1940 74 From: Amilcar Paz MD [...] Dictated: 12/24/14 1003 Date Transcribed: 12/24/14 1359 Spool Hauler: Signed 19-Jul-2014 Hip min 2 Views Result: Comments: See Note; NOTES: [facility] Imaging Services [address] [place] [address] Radiology Report MR#: [id number] Acct: [id number] Name: SEAN CRAIN Rep #: [id number] : 1940 F 74 From: Henry Jones MD PCP: Sarai Bro Status: REG CLI Study: Hip min 2 Views Date of Exam: 07/19/14 Exam# [id number] Ordering Dr: Sarai Bro STUDY: X-RAY - [...] Henry Jones MD at 11:38 EST Tel [phone], Service support [phone], RAD/Hip min 2 Views IMPRESSION: Degenerative changes of the hip. Electronically Signed: Henry Jones MD at 11:38 EST Tel [phone], Service support [phone], CC : Sarai Bro Spool Hauler: Signed 19-Jul-2014 L/S Spine Min 4 Views Result: Comments: See Note; NOTES: [facility] Imaging Services [address] [place] [address] Radiology Report MR#: [id number] Acct: [id number] Name: SEAN CRAIN Rep #: [id number] : 1940 F 74 From: Henry Jones MD PCP: Sarai Bro Status: REG CLI Study: L/S Spine Min 4 Views Date of Exam: 07/19/14 Exam# [id number] Ordering Dr: Sarai Bro STUDY: X-RAY - [...] Henry Jones MD at 13:19 EST Tel [phone], Service support [phone], CC: Sarai Bro Spool Hauler: Signed 05-Jan-2014 Bilat Scrn Digital & CAD Result: Comments: See Note; NOTES: [facility] Imaging Services [address] [facility] [place] [address] Breast Imaging Report MR#: [id number] Acct: [id number] Name: SEAN CRAIN Rep #: [id number] : 1940 F 73 From: Henry Jones MD PCP: Status: REG CLI Exam# [id number] Ordering Dr: Sarai Bro MAMMOGRAPHY - BILATERAL [...] a clinically suspicious abnormality. 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, [address] INR 2.7 (Normal) PROTIME 28.4 s (Abnormal) Range: 11.7-14.9 02-Eto-121022:14 Prothrombin Time w/INR Comments: [place] [facility] [address] [place], [address] INR 2.2 (Normal) PROTIME 24.6 s (Abnormal) Range: 11.7-14.9 94-Bdw-002600:18 Prothrombin Time w/INR Comments: [place] [address] [place], [address] INR 2.2 (Normal) PROTIME 24.3 s (Abnormal) Range: 11.7-14.9 45-Lgr-909915:26 Prothrombin Time w/INR Comments: [facility] [address] [place], [address] INR 2.2 (Normal) PROTIME 24.6 s (Abnormal) Range: 11.7-14.9 83-Onh-063737:13 Prothrombin Time w/INR Comments: [place] [facility] [address] [place], [address] INR 2.3 (Normal) PROTIME 25.7 s (Abnormal) Range: 11.7-14.9 :58 Prothrombin Time w/INR Comments: [place] [facility] [address] [place], [address] INR 2.0 (Normal) PROTIME 22.8 s (Abnormal) Range: 11.7-14.9 :45 CBC W/Diff, Automated Comments: [place] [address] [place], [place], [id number] ; another Absolute Lymph 2.13 {X10_3/ul} (Normal) [...] 4.2-5.4 WBC 5.6 K/mm3 (Normal) Range: 4.4-11.0 88-Xua-93787:45 Comprehensive Metabolic Profil Comments: [facility] [address] [place], [address] ; Dr Paz GAP 8 (Normal) [...] Comments: Please note revised GLUCOSE reference range /02/2018. 82-Axz-83605:45 Lipid Profile Comments: [facility] [address] [place], [address] VLDL 17 mg/dL (Normal) Range: 5-40 LDL [...] 200-240 mg/dL Borderline >240 mg/dL High Risk 32-Hxp-73772:45 Microalb:Creat Ratio,Random UR Comments: [facility] [address] [place], [address] MALB:CREAT 8.4 {mg/g_CRE} (Normal) MICROALBUMIN,UR 13.5 mg/L (Normal) UR CREAT 160.00 mg/dL (Normal) 62-Etu-90751:45 Prothrombin Time w/INR Comments: [facility] [address] [place], [address] INR 1.9 (Normal) PROTIME 21.5 s (Abnormal) Range: 11.7-14.9 Comments: ADDENDA: cardio :45 Thyroid Stim Hormone (TSH) Comments: [facility] [address] [place], [address] TSH 2.92 {uIU/mL} (Normal) Range: 0.358-3.74 73-Wxk-94308:45 Urinalysis, Routine (Dipstick) Comments: How was Urine Obtained? CLEAN [facility] [address] [place], [address] ; other [...] (Normal) CLARITY Cloudy (Normal) COLOR Yellow (Normal) 74-Mza-807276:31 Prothrombin Time w/INR Comments: [facility] [address] [place], [address] INR 2.1 (Normal) PROTIME 23.3 s (Abnormal) Range: 11.7-14.9 3-Lav-557883:20 Prothrombin Time w/INR Comments: [facility] [address] [place], [place], [address] INR 2.2 (Normal) Comments: ADDENDA: managed by cardio PROTIME 24.1 s (Abnormal) Range: 11.7-14.9 77-Mtb-666780:40 Prothrombin Time w/INR Comments: [facility] [address] [place], [place], [address] ; managed by cardio INR 2.0 (Normal) PROTIME 22.9 s (Abnormal) Range: 11.7-14.9 73-Opa-221234:13 Prothrombin Time w/INR Comments: [facility] [address] [place], [address] INR 1.6 (Normal) PROTIME 19.5 s (Abnormal) Range: 11.7-14.9 67-Ezu-426704:28 Prothrombin Time w/INR Comments: [facility] [address] [place], [place], [address] ; cardio INR 1.8 (Normal) PROTIME 19.8 s (Abnormal) Range: 11.7-14.9 1-Mor-417305:53 Prothrombin Time w/INR Comments: [facility] [address] [place], [place], [address] INR 2.4 (Normal) PROTIME 24.8 s (Abnormal) Range: 11.7-14.9 0-Fnf-773920:26 Prothrombin Time w/INR Comments: [facility] [address] [place], [place], [address] INR 1.9 (Normal) PROTIME 21.2 s (Abnormal) Range: 11.7-14.9 70-Mni-683452:42 Rapid Flu (14390 x 2) Influenza A Ag POS B (Normal) 67-Orl-922063:04 Prothrombin Time w/INR Comments: [facility] [address] [place], [place], [address] ; cardio manages INR 1.4 (Normal) PROTIME 16.5 s (Abnormal) Range: 11.7-14.9 64-Bum-500571:28 Prothrombin Time w/INR Comments: [facility] [address] [place], [place], [address] INR 1.2 (Normal) PROTIME 14.3 s (Normal) Range: 11.7-14.9 2-Zjc-817814:11 Prothrombin Time w/INR Comments: [facility] [address] [place], [place], [address] INR 2.0 (Normal) PROTIME 21.6 s (Abnormal) Range: 11.7-14.9 70-Ilm-482967:18 CBC W/Diff, Automated Comments: [facility] [address] [place], [place], [address] Absolute Lymph 2.38 {X10_3/ul} (Normal) Range: 0.83-4.51 [...] Range: 4.4-11.0 :18 Prothrombin Time w/INR Comments: [facility] [address] [place], [address]) INR 2.1 (Normal) PROTIME 22.8 s (Abnormal) Range: 11.7-14.9 :52 POTASSIUM SERUM (77408) Comments: STAT; Order Date: 07/23/17Order Info: 2823-3 - KComments: [facility] [address] [place], [address] K 4.4 mmol/L (Normal) Range: 3.5-5.1 27-Nad-430735:56 Microscopic Examination Comments: PATIENT NOT FASTINGPERFORMED BY: [facility] [address] [place] [place] [id number] Bacteria Few (Normal) Mucus Threads Present (Normal) Epithelial Cells (non renal) 0-10 {/hpf} (Normal) Range: 0 - 10 RBC 3-10 {/hpf} (Abnormal) Range: 0 - 2 WBC 0-5 {/hpf} (Normal) Range: 0 - 5 :56 VITAMIN B-12 (CYANOCOBALAMIN) Comments: PATIENT NOT FASTINGPERFORMED BY: [facility] [address] [place] [id number] ([id number]) Vitamin B12 451 pg/mL (Normal) Range: 232-1245 Comments: Please note reference interval change :56 TSH (29535) Comments: PATIENT NOT FASTINGPERFORMED BY: CB [facility] [address] [place] [id number] TSH 2.910 {uIU/mL} (Normal) Range: 0.450-4.500 :56 URINALYSIS, W/ MICRO (65061) Comments: PATIENT NOT FASTINGPERFORMED BY: [facility] [address] [facility] [id number] Microscopic Examination See below: (Normal) Comments: Microscopic was indicated and was performed. Nitrite, Urine Negative (Normal) Urobilinogen,Semi-Qn 0.2 mg/dL (Normal) Range: 0.2-1.0 Bilirubin Negative (Normal) Occult Blood 1+ (Abnormal) Ketones Negative (Normal) Glucose Negative (Normal) Protein Negative (Normal) WBC Esterase Trace (Abnormal) Appearance Clear (Normal) Urine-Color Yellow (Normal) pH 7.0 (Normal) Range: 5.0-7.5 Specific Empire 1.017 (Normal) Range: 1.005-1.030 83-Umy-399816:56 MICROALBUMIN: CREATININE RATIO Comments: PATIENT NOT FASTINGPERFORMED BY: [employer]70 [facility] [place] [facility] [id number] ([id number]) AND (88352) Microalb/Creat Ratio 7.4 {mg/g_creat} (Normal) Range: 0.0-30.0 Microalbumin, Urine 5.0 ug/mL (Normal) Creatinine, Urine 68.0 mg/dL (Normal) :56 METABOLIC PANEL, COMPREHENSIVE Comments: PATIENT NOT FASTINGPERFORMED BY: [employer]70 [facility] [id number] ([id number]) ALT (SGPT) 18 [iU]/L (Normal) Range: 0-32 [...] Glucose, Serum 87 mg/dL (Normal) Range: 65-99 39-Sjk-662572:56 CBC W/AUTO DIFF WBC (71754) Comments: PATIENT NOT FASTINGPERFORMED BY: [facility] Xrawtm7502 [facility] [id number] Immature Grans (Abs) 0.0 {x10E3/uL} (Normal) Range: [...] Range: 3.4-10.8 :38 Prothrombin Time w/INR Comments: [facility] [address] [place], [address] INR 2.0 (Normal) PROTIME 22.0 s (Abnormal) Range: 11.7-14.9 77-Nhc-928990:21 Prothrombin Time w/INR Comments: [facility] [address] [place], [address] INR 2.5 (Normal) PROTIME 26.0 s (Abnormal) Range: 11.7-14.9 :12 Lipid Profile Comments: Order Date: 12/04/16Order Info: 0788-1 - *Hepatic Function PanelOrder Info: [id number] - *Lipid Profile CC PCPComments: 12 hours fasting, may have water.[facility] [address] [place], [address] VLDL 21 mg/dL (Normal) Range: 5-40 LDL [...] Info: 0788-1 - *Hepatic Function PanelOrder Info: [id number] - *Lipid Profile CC PCPComments: 12 hours fasting, may have water.[facility] [address] [place], [place], [phone] D BILI 0.09 mg/dL (Normal) Range: 0.00-0.30 T BILI 0.50 mg/dL (Normal) Range: 0.20-1.00 ALT 21 U/L (Normal) Range: 12-78 ALK P 78 U/L (Normal) Range: 45-117 AST 16 U/L (Normal) Range: 15-37 GLOB 3.1 g/dL (Normal) Range: 2.2-4.2 ALB 3.5 g/dL (Normal) Range: 3.4-5.0 Comments: Please note revised Albumin AND Globulin reference rangeeffective 2017. T PROT 6.6 g/dL (Normal) Range: 6.4-8.2 05-Nae-980803:39 Prothrombin Time w/INR Comments: [facility] [address] [place], [place], [phone] INR 2.4 (Normal) PROTIME 24.9 s (Abnormal) Range: 11.7-14.9 :43 Prothrombin Time w/INR Comments: [facility] [address] [place], [place], [phone] INR 2.2 (Normal) PROTIME 23.9 s (Abnormal) Range: 11.7-14.9 :22 CBC W/Diff, Automated Comments: [place] [address] [place], [place], [phone] ; OV 9/5 Absolute Lymph 2.11 {X10_3/ul} [...] Range: 4.4-11.0 09-Apr-20179:22 Comprehensive Metabolic Profil Comments: [facility] [address] [place], [place], [address] GAP 7 (Normal) Range: 5-15 CO2 33.0 [...] 70-110 :22 Thyroid Stim Hormone (TSH) Comments: [facility] [address] [facility] [address] [place], [place], [address] TSH 3.52 {uIU/mL} (Normal) Range: 0.358-3.74 39-Jqd-697910:37 Prothrombin Time w/INR Comments: [facility] Afxs[address]rhav[address] [place], [place], [phone](819) INR 2.1 (Normal) PROTIME 22.4 s (Abnormal) Range: 11.7-14.9 58-Pio-762594:12 Prothrombin Time w/INR Comments: PT ORDER IS AND T4 IS [facility] [address]nxpmwryvg75[address] [place], [place], [address](461) INR 2.1 (Normal) PROTIME 23.1 s (Abnormal) Range: 11.7-14.9 76-Ozb-029501:11 T4 Total, Thyroxin Comments: Order Date: 02/19/17Order Info: [id number] - *T4 (Total)Comments: Reason:Order Info: [id number] - *[facility] [address]akwb[address] [place], [place], [address] T4 THYROXIN 7.2 ug/dL (Normal) Range: 4.8-13.9 39-Zss-964033:11 Thyroid Stim Hormone (TSH) Comments: Order Date: 02/19/17Order Info: [id number] - *T4 (Total)Comments: Reason:Order Info: [id number] - *[facility]SH[facility] [address] [place], [address] TSH 1.56 {uIU/mL} (Normal) Range: 0.358-3.74 :37 Prothrombin Time w/INR Comments: [facility] [address] [place], [address] INR 1.9 (Normal) PROTIME 21.4 s (Abnormal) Range: 11.7-14.9 1-Tzt-504756:50 Prothrombin Time w/INR Comments: [facility] [address] [place], [address] INR 2.0 (Normal) PROTIME 21.6 s (Abnormal) Range: 11.7-14.9 32-Hfg-476312:37 Prothrombin Time w/INR Comments: [facility] [address] [place], [phone](334) INR 2.5 (Normal) PROTIME 25.6 s (Abnormal) Range: 11.7-14.9 01-Via-520067:18 Prothrombin Time w/INR Comments: [facility] [address] [place], [address] INR 2.1 (Normal) PROTIME 22.5 s (Abnormal) Range: 11.7-14.9 40-Vqx-403480:17 Lipid Profile Comments: Order Date: 06/02/16Order Info: [id number]- [id number] - *Hepatic Function PanelDR.TOVA BROWNENORTHERN LIGHT MAINE COAST HOSPITALMARIMAR LIPID LIVEROrder Date: 06/02/16Order Info: [id number] - *Lipid Profile CC PCPComments: 12 hours fasting, may have donnared hughesStaceySumma Health Barberton Campus [address]uhl[address] [place], [phone] VLDL 31 mg/dL (Normal) Range: 5-40 LDL [...] 200-240 mg/dL Borderline >240 mg/dL High Risk 02-Qpw-526623:17 Liver Profile Comments: Order Date: 06/02/16Order Info: [id number]- 1 - *Hepatic Function PanelDR.TOVA PTMICHELLE LIPID LIVEROrder Date: 06/02/16Order Info: [id number] - *Lipid Profile CC PCPComments: 12 hours fasting, may have mary lalaSum[facility] Qdzpapeddc[address] [place], [place], [address] D BILI 0.09 mg/dL (Normal) Range: 0.00-0.30 T BILI 0.50 mg/dL (Normal) Range: 0.20-1.00 ALT 28 U/L (Normal) Range: 12-78 ALK P 93 U/L (Normal) Range: 45-117 AST 21 U/L (Normal) Range: 15-37 GLOB 3.4 g/dL (Normal) Range: 2.3-3.5 ALB 4.0 g/dL (Normal) Range: 3.4-5.0 T PROT 7.4 g/dL (Normal) Range: 6.4-8.2 0-Gvg-627386:32 Prothrombin Time w/INR Comments: [facility] [address] [place], [place], [phone] ; [facility] manages INR 1.8 (Normal) PROTIME 20.2 s (Abnormal) Range: 11.7-14.9 64-Qlu-851244:09 Prothrombin Time w/INR Comments: [facility] [address]uv[address]pcj[address] [place], [place], [address] ; another doc INR 2.1 (Normal) PROTIME 23.1 s (Abnormal) Range: 11.7-14.9 49-Znc-840108:10 Metabolic Panel, Comprehensive Comments: today; PATIENT NOT FASTINGPERFORMED BY: [facility] Utnklg45[address] [place] [id number] ([id number]) ALT (SGPT) 16 [iU]/L (Normal) Range: 0-32 [...] Glucose, Serum 89 mg/dL (Normal) Range: 65-99 59-Ysq-784394:26 Prothrombin Time w/INR Comments: [facility] [address] [place], [address] INR 2.2 (Normal) PROTIME 23.7 s (Abnormal) Range: 11.7-14.9 27-Rlu-275262:52 CBC-Complete Blood Cnt No Diff Comments: [facility] [address] [place], [address] ; sibilia MPV 10.8 fL [...] Range: 4.4-11.0 :58 Prothrombin Time w/INR Comments: [facility] [address]bpf[address] [place], [address] INR 2.0 (Normal) PROTIME 22.4 s (Abnormal) Range: 11.7-14.9 96-Nis-239898:49 Prothrombin Time w/INR Comments: [facility] Ng[address] [place], [address] INR 2.0 (Normal) PROTIME 22.3 s (Abnormal) Range: 11.7-14.9 36-Jxs-177012:54 CBC WITH MANUAL DIFF (37208) Comments: PATIENT NOT FASTINGPERFORMED BY: [facility]CoHoboken University Medical CenterJcfsfw7878 [facility] [id number] Immature Grans (Abs) 0.0 {x10E3/uL} (Normal) Range: [...] 3.77-5.28 WBC 6.2 {x10E3/uL} (Normal) Range: 3.4-10.8 44-Byv-663634:54 Metabolic Panel, Comprehensive Comments: PATIENT NOT FASTINGPERFORMED BY: [facility]CoH[facility] Medical CenterUnzfgi7579 [facility] [id number] ([id number]) ALT (SGPT) 18 [iU]/L (Normal) Range: 0-32 [...] Glucose, Serum 86 mg/dL (Normal) Range: 65-99 90-Tkd-480870:54 TSH (05443) Comments: PATIENT NOT FASTINGPERFORMED BY: [facility] Cfohdv9647 [facility] [id number] TSH 2.890 {uIU/mL} (Normal) Range: 0.450-4.500 31-Rgh-164731:23 Prothrombin Time w/INR Comments: [facility] [address] [place], [address] ; managed by cardio INR 2.6 (Normal) PROTIME 27.4 s (Abnormal) Range: 11.7-14.9 26-Bmo-13763:54 Prothrombin Time w/INR Comments: [facility] [address] [place], [address] ; another doc INR 2.0 (Normal) PROTIME 22.3 s (Abnormal) Range: 11.7-14.9 :53 Lipid Profile Comments: Order Date: 05/22/16 Order #: [id number] Health [facility]ton Campus [address] [place], [id number] VLDL 21 mg/dL (Normal) Range: 5-40 LDL [...] Profile Comments: Order Date: 05/22/16 Order #: [id number] Health Barberton Campus [address]wkdik67[address] [place], [place], [address] D BILI < 0.05 mg/dL (Normal) Range: [...] Range: 6.4-8.2 :09 Prothrombin Time w/INR Comments: [facility] [address]ks[address]tdxc[address] [place], [phone] INR 2.5 (Normal) PROTIME 26.3 s (Abnormal) Range: 11.7-14.9 :59 Prothrombin Time w/INR Comments: [facility] [address] [place], [address] ; managed by cardio INR 2.9 (Normal) PROTIME 29.3 s (Abnormal) Range: 11.7-14.9 :05 Prothrombin Time w/INR Comments: [facility] [address] [place], [address] INR 2.0 (Normal) PROTIME 22.3 s (Abnormal) Range: 11.7-14.9 :11 Prothrombin Time w/INR Comments: [facility] [address] [place], [address] INR 2.7 (Normal) Comments: ADDENDA: managed by cardio PROTIME 27.7 s (Abnormal) Range: 11.7-14.9 :14 Prothrombin Time w/INR Comments: [facility] [address] [place], [address] ; managed by Tova INR 2.7 (Normal) PROTIME 28.1 s (Abnormal) Range: 11.7-14.9 :45 Prothrombin Time w/INR Comments: [facility] [address] [place], [place], [phone] ; managed by cardio INR 3.1 (Normal) PROTIME 31.3 s (Abnormal) Range: 11.7-14.9 :27 Prothrombin Time w/INR Comments: [facility] [address] [place], [address] ; managed by cardio INR 3.1 (Normal) PROTIME 31.1 s (Abnormal) Range: 11.7-14.9 :22 Prothrombin Time w/INR Comments: [facility] [address] [place], [address] INR 2.6 (Normal) PROTIME 27.4 s (Abnormal) Range: 11.7-14.9 :08 Prothrombin Time w/INR Comments: [facility] [address]im[address]froz[address] [place], [place], [address] ; managed with Dr. paz INR 4.1 (Abnormal) Comments: CRITICAL VALUE REPEATED AND VERIFIED. CALLED TO [facility]01/16/16 1251 Elza Hinojosa.RESULTS READ BACK BY SAME . PROTIME 38.2 s (Abnormal) Range: 11.7-14.9 55-Aow-244515:11 Microscopic Examination Comments: PATIENT WAS FASTINGPERFORMED BY: [facility] [id number] Bacteria None seen (Normal) Mucus Threads Present (Normal) Epithelial Cells (non renal) 0-10 {/hpf} (Normal) Range: 0 - 10 RBC 11-30 {/hpf} (Abnormal) Range: 0 - 2 WBC 0-5 {/hpf} (Normal) Range: 0 - 5 16-Bmo-561708:11 MICROALBUMIN: CREATININE RATIO Comments: PATIENT WAS FASTINGPERFORMED BY: [employer]70 [facility] [id number] ([id number]) AND (71965) Microalb/Creat Ratio 11.4 {mg/g_creat} (Normal) Range: 0.0-30.0 Microalbumin, Urine 12.1 ug/mL (Normal) Comments: Please note reference interval change Creatinine, Urine 106.3 mg/dL (Normal) Comments: Please note reference interval change 29-Dfl-819094:11 URINALYSIS (34208) Comments: PATIENT WAS FASTINGPERFORMED BY: Client24 [facility] [id number] Microscopic Examination See below: (Normal) Comments: Microscopic was indicated and was performed. Nitrite, Urine Negative (Normal) Urobilinogen,Semi-Qn 0.2 mg/dL (Normal) Range: 0.2-1.0 Bilirubin Negative (Normal) Occult Blood 2+ (Abnormal) Ketones Negative (Normal) Glucose Negative (Normal) Protein Negative (Normal) WBC Esterase Negative (Normal) Appearance Clear (Normal) Urine-Color Yellow (Normal) pH 7.0 (Normal) Range: 5.0-7.5 Specific [place] 1.018 (Normal) Range: 1.005-1.030 36-Nzg-407163:11 Metabolic Panel, Comments: PATIENT WAS FASTINGPERFORMED BY: [employer]70 [facility] [id number] Information: [id number], [id number] Comprehensive (30746) ALT (SGPT) 14 [iU]/L (Normal) Range: 0-32 [...] Glucose, Serum 91 mg/dL (Normal) Range: 65-99 50-Eya-399172:11 TSH (59970) Comments: PATIENT WAS FASTINGPERFORMED BY: GitCafeHoboken [facility] Medical CenterFvcmvq7574 [facility] [id number] TSH 2.260 {uIU/mL} (Normal) Range: 0.450-4.500 :17 Prothrombin Time w/INR Comments: [facility] [address] [place], [phone] INR 2.8 (Normal) PROTIME 28.4 s (Abnormal) Range: 11.7-14.9 :40 Lipid Profile Comments: [facility] Fibybljebc[address] [place], [address] VLDL 22 mg/dL (Normal) Range: 5-40 LDL [...] mg/dL High Risk :40 Liver Profile Comments: [facility] Sutadllimg[address] [place], [address] D BILI 0.10 mg/dL (Normal) Range: 0.00-0.30 T BILI 0.60 mg/dL (Normal) Range: 0.20-1.00 ALT 26 U/L (Normal) Range: 12-78 ALK P 86 U/L (Normal) Range: 50-136 AST 20 U/L (Normal) Range: 15-37 GLOB 3.4 g/dL (Normal) Range: 2.3-3.5 ALB 3.9 g/dL (Normal) Range: 3.4-5.0 T PROT 7.3 g/dL (Normal) Range: 6.4-8.2 :26 Prothrombin Time w/INR Comments: [facility] [address]fljzsrvc[address] [place], [id number] INR 2.6 (Normal) Comments: ADDENDA: handled by cardio PROTIME 27.3 s (Abnormal) Range: 11.7-14.9 :40 Prothrombin Time w/INR Comments: [facility] [address] [place], [address] INR 2.4 (Normal) PROTIME 26.4 s (Abnormal) Range: 11.7-14.9 6-Oxu-195700:03 Prothrombin Time w/INR Comments: [facility] [address] [place], [address] ; per pop up in EMR cardio manages INR INR 2.2 (Normal) PROTIME 24.5 s (Abnormal) Range: 11.7-14.9 :51 Prothrombin Time w/INR Comments: [facility] [address] [place], [address] INR 1.6 (Normal) PROTIME 19.0 s (Abnormal) Range: 11.7-14.9 Comments: ADDENDA: managed by cardio :33 Prothrombin Time w/INR Comments: [facility] [address] [place], [address] ; handled by cardio INR 2.1 (Normal) PROTIME 24.0 s (Abnormal) Range: 11.7-14.9 94-Gds-154743:02 Prothrombin Time w/INR Comments: [facility] [address] [place], [address] INR 2.2 (Normal) PROTIME 24.1 s (Abnormal) Range: 11.7-14.9 32-Gvg-373273:37 Prothrombin Time w/INR Comments: [facility] [address]tuht[address] [place], [address] INR 2.5 (Normal) PROTIME 26.7 s (Abnormal) Range: 11.7-14.9 :44 Prothrombin Time w/INR Comments: [facility] N[address] [place], [address] INR 2.2 (Normal) PROTIME 24.6 s (Abnormal) Range: 11.7-14.9 07-Pgc-023598:15 Prothrombin Time w/INR Comments: [facility] [address]ib[address]whui[address] [place], [address] INR 1.6 (Normal) PROTIME 19.4 s (Abnormal) Range: 11.7-14.9 :36 Prothrombin Time w/INR Comments: [facility] Q[address] [place], [address] INR 1.2 (Normal) PROTIME 15.3 s (Abnormal) Range: 11.7-14.9 :02 Prothrombin Time w/INR Comments: [facility] [address]gmxevrtbv[address] [place], [address] INR 2.7 (Normal) PROTIME 29.0 s (Abnormal) Range: 11.7-14.9 :47 Lipid Profile Comments: [facility] [address]zprurdutj8[address] [place], [address] VLDL 20 mg/dL (Normal) Range: [...] mg/dL High Risk :47 Liver Profile Comments: [facility] Rnbyonpnrb4[address] [place], [address] D BILI 0.09 mg/dL (Normal) Range: 0.00-0.30 T BILI 0.40 mg/dL (Normal) Range: 0.20-1.00 ALT 26 U/L (Normal) Range: 12-78 ALK P 86 U/L (Normal) Range: 50-136 AST 24 U/L (Normal) Range: 15-37 GLOB 3.3 g/dL (Normal) Range: 2.3-3.5 ALB 4.0 g/dL (Normal) Range: 3.4-5.0 T PROT 7.3 g/dL (Normal) Range: 6.4-8.2 4-Fhv-331867:11 CBC, Platelets & Auto Diff Comments: PATIENT NOT FASTINGPERFORMED BY: [facility] Kmbqdj8606 [facility] [id number] Information: [id number] (86830) Immature Grans (Abs) 0.0 {x10E3/uL} (Normal) Range: [...] 3.77-5.28 WBC 6.2 {x10E3/uL} (Normal) Range: 3.4-10.8 3-Iuc-199160:11 CALCIFEDIOL (16911) Comments: PATIENT NOT FASTINGPERFORMED BY: GitCafeHoboken University Medical CenterLhphju6743 [facility] [id number] Vitamin D, 25-Hydroxy 38.9 ng/mL (Normal) Range: 30.0-100.0 Comments: Vitamin D deficiency has been defined by the [place] ofMedicine and an Endocrine Society practice guideline as alevel of serum 25-OH vitamin D less than 20 ng/mL (1,2).The Endocrine Society went on to further define vitamin Dinsufficiency as a level between 21 and 29 ng/mL (2).1. IOM ([place] of Medicine). 2010. Dietary reference intakes for calcium and D. [place]: The National Academies Press.2. Roberto MF, Brody OCHOA, Maribell CADENA, et al. Evaluation, treatment, and prevention of vitamin D deficiency: an Endocrine Society clinical practice guideline. JCEM. 2010; 96(7):1911-30. 4-Zjm-704112:11 VITAMIN B12 AND FOLATES Comments: PATIENT NOT FASTINGPERFORMED BY: GitCafeTsaile Health CenterKdhfzm4757 [facility] [id number] ([id number]) Folate (Folic Acid), Serum 10.4 ng/mL (Normal) Comments: A serum folate concentration of less than 3.1 ng/mL isconsidered to represent clinical deficiency. Vitamin B12 1651 pg/mL (Abnormal) Range: 211-946 2-Weu-973313:11 Metabolic Panel, Comprehensive Comments: PATIENT NOT FASTINGPERFORMED BY: GitCafeHoboken University Medical CenterHmploz1758 [facility] [id number] (52862) ALT (SGPT) 15 [iU]/L (Normal) Range: 0-32 [...] Range: 65-99 09-May-20159:53 Prothrombin Time w/INR Comments: [facility] [address] [place] [address], [address] INR 1.9 (Normal) PROTIME 22.0 s (Abnormal) Range: 11.7-14.9 78-Ruk-591211:40 Prothrombin Time w/INR Comments: Test performed at:[facility] [address] [place] [address] INR 1.3 (Normal) PROTIME 16.3 s (Abnormal) Range: 11.7-14.9 63-Wrs-375966:03 Prothrombin Time w/INR Comments: Test performed at:[facility] [address] [place] [address] INR 1.7 (Normal) PROTIME 20.4 s (Abnormal) Range: 11.7-14.9 0-Rwt-985823:26 Prothrombin Time w/INR Comments: Test performed at:[facility] [address] [place] [address] INR 1.2 (Normal) Comments: ADDENDA: managed by dr paz PROTIME 15.8 s (Abnormal) Range: 11.7-14.9 13-Kkc-461244:28 Prothrombin Time w/INR Comments: Test performed at:[facility] [address] [place] [address] INR 1.2 (Normal) PROTIME 15.8 s (Abnormal) Range: 11.7-14.9 :54 Prothrombin Time w/INR Comments: Test performed at:[facility] [address] [place] [address] INR 2.5 (Normal) PROTIME 27.3 s (Abnormal) Range: 11.7-14.9 8-Wgk-308470:16 Prothrombin Time w/INR Comments: Test performed at:[facility] [address] [place] [address] INR 2.0 (Normal) PROTIME 23.2 s (Abnormal) Range: 11.7-14.9 84-Dhm-191007:29 Prothrombin Time w/INR Comments: Test performed at:[facility] [address] [place] [address] INR 2.8 (Normal) PROTIME 29.3 s (Abnormal) Range: 11.7-14.9 43-Qkq-546128:06 Prothrombin Time w/INR Comments: Test performed at:[facility] [address] [place] [address] ; Dr Bella manages INR 2.1 (Normal) PROTIME 24.0 s (Abnormal) Range: 11.7-14.9 :45 Prothrombin Time w/INR Comments: Test performed at:[facility] [address] [place] [address] ; ordered by another INR 1.3 (Normal) PROTIME 16.5 s (Abnormal) Range: 11.7-14.9 :00 Prothrombin Time w/INR Comments: Test performed at:[facility] [address] [place] [address] INR 0.9 (Normal) PROTIME 12.7 s (Normal) Range: 11.7-14.9 5-Wsm-338743:05 Vitamin B12 and Folate Comments: PATIENT NOT FASTINGPERFORMED BY: LabCoH[facility] Medical CenterNsiuiy2762 [facility] [id number] Information: [id number] Folate (Folic Acid), 7.8 ng/mL (Normal) Comments: A serum folate concentration of less than 3.1 ng/mL isconsidered to represent clinical deficiency. Serum Vitamin B12 1883 pg/mL Range: 211-946 (Abnormal) 3-Ipx-383011: Vitamin D, 42.8 ng/mL (Normal) Comments: PATIENT NOT FASTINGPERFORMED BY: LabCoH[facility]oken [facility] Medical CenterIeklec0299 [facility] [id number] 05 25-Hydroxy Range: 30.0-100.0 Comments: Vitamin D deficiency has been defined by the [place] of[place]icine and an Endocrine Society practice guideline as alevel of serum 25-OH vitamin D less than 20 ng/mL (1,2).The Endocrine Society went on to further define vitamin Dinsufficiency as a level between 21 and 29 ng/mL (2).1. IOM ([place] of Medicine). 2010. Dietary reference intakes for calcium and D. [place]: The National Academies Press.2. Roberto MF, Brody [place], Maribell CADENA, et al. Evaluation, treatment, and prevention of vitamin D deficiency: an Endocrine Society clinical practice guideline. JCEM. 2010; 96(7):1911-30. 12-Fcy-632681:04 CBC W/Diff, Automated Comments: Test performed at:[facility] [address]qoidpyy[address] [place] [address] Absolute Lymph 2.41 {X10_3/ul} (Normal) [...] 4.2-5.4 WBC 6.5 K/mm3 (Normal) Range: 4.4-11.0 1-Djs-183180:26 Basic Metabolic Profile (BMP) Comments: Test performed at:[facility] Klmp[address]nzm8432 [place] [address] GAP 4 (Abnormal) Range: 5-15 CO2 33.0 mmol/L (Abnormal) Range: 21.0-32.0 CL 103 mmol/L (Normal) Range: 98-107 K 4.8 mmol/L (Normal) Range: 3.5-5.1 NA 140 mmol/L (Normal) Range: 136-145 CA 8.8 mg/dL (Normal) Range: 8.5-10.1 BUN/CRE 25.8 {RATIO} (Abnormal) Range: 10-20 CREAT,SERUM 1.2 mg/dL (Abnormal) Range: 0.6-1.0 BUN 31 mg/dL (Abnormal) Range: 7-18 GLU 108 mg/dL (Normal) Range: 70-110 00-Tsf-733180:45 Basic Metabolic Profile (BMP) Comments: Test performed at:[facility] [address]96[address] [place], [place] 811769(718) GAP 4 (Abnormal) Range: 5-15 CO2 28.0 mmol/L (Normal) Range: 21.0-32.0 CL 106 mmol/L (Normal) Range: 98-107 K 4.3 mmol/L (Normal) Range: 3.5-5.1 NA 138 mmol/L (Normal) Range: 136-145 CA 8.8 mg/dL (Normal) Range: 8.5-10.1 BUN/CRE 26.0 {RATIO} (Abnormal) Range: 10-20 CREAT,SERUM 1.0 mg/dL (Normal) Range: 0.6-1.0 BUN 26 mg/dL (Abnormal) Range: 7-18 GLU 93 mg/dL (Normal) Range: 70-110 [id number] CBC W/Diff, Automated Comments: Test performed at:[facility] [id number] [place] [address] Absolute Lymph 2.60 {X10_3/ul} (Normal) [...] slightly hemolyzed. Results may be affected.Test performed at:[facility] [id number] [place], [place] [address] VLDL 19 mg/dL (Normal) Range: 5-40 LDL [...] 200-240 mg/dL Borderline >240 mg/dL High Risk [id number] Liver Profile Comments: Specimen slightly hemolyzed. Results may be affected.Test performed at:[facility] [id number] [place], [place] [id number] D BILI < 0.05 mg/dL (Normal) Range: [...] CHOL 226 mg/dL (Abnormal) Comments: <200 mg/dL Bvyotxcvg329-999 mg/dL Borderline>240 mg/dL High Risk :47 LIVER [...] :47 TSH 3.05 {uIU/mL} (Normal) Range: 0.358-3.74 [id number]:00 LORNA CULTURE-OTHER (82403) Comments: PATIENT NOT FASTINGPERFORMED BY: [id number] [id number] Information: SRC:THRT [id number] Result 1 RRF (Normal) Comments: Routine respiratory jesus Upper Respiratory Culture Final report (Normal) [id number]:21 Rapid Strep Test, Office ([id number]) Rapid Strep Test, Office Negative (Normal) [id number]-98723:00 BILAT SCRN DIGITAL & CAD Radiology Report [...] Jones M.D.January 04, 2013 at 10:41:52 AM [phone] Signed GP/GP If you are the referring physician and would like to consult with theradiologist who provided this interpretation, please contact Ne Huang at [phone]. If this radiologist is unavailable, youwill be directed to another radiologist to assist. If you are a patient with a question regarding this report, pleasecontactyour referring physician directly. Professional Interpretation Provided By: Kareo, Phone , These documents contain legally protected [...] 01/04/13 1044 Sign by: Henry Jones MD 4-Kmy-454387:19 Hepatic Function Panel Comments: PATIENT WAS FASTINGPERFORMED BY: [facility]6370 [facility] [id number] Information: [id number] (7) ALT (SGPT) 23 [iU]/L (Normal) Range: 0-32 AST (SGOT) 21 [iU]/L (Normal) Range: 0-40 Alkaline Phosphatase, S 74 [iU]/L (Normal) Range: 25-165 Bilirubin, Direct 0.10 mg/dL Range: 0.00-0.40 (Normal) Albumin, Serum 4.3 g/dL (Normal) Range: 3.5-4.8 Bilirubin, Total 0.3 mg/dL (Normal) Range: 0.0-1.2 Protein, Total, Serum 6.7 g/dL (Normal) Range: 6.0-8.5 Written Authorization WAR (Normal) Comments: PATIENT WAS FASTINGPERFORMED BY: [facility]CafeHob[facility] Medical CenterEradgq5133 [facility] [id number] :19 Comments: Written Authorization Received.Authorization received from DR BRO [id number] by Rachelle Porter :19 Metabolic Panel, Comprehensive Comments: PATIENT WAS FASTINGPERFORMED BY: GitCafeHoboken University Medical CenterSkvdsv4773 [facility] [id number] (70078) ALT (SGPT) 22 [iU]/L (Normal) Range: 0-32 [...] Glucose, Serum 89 mg/dL (Normal) Range: 65-99 9-Kgc-026456:19 CBC with manual diff Comments: PATIENT WAS FASTINGPERFORMED BY: [facility] Mkejyu2789 [facility] [id number] Information: [id number] (19899) Immature Grans (Abs) 0.0 {x10E3/uL} (Normal) Range: [...] 3.77-5.28 WBC 4.6 {x10E3/uL} (Normal) Range: 4.0-10.5 5-Sct-253248:19 Lipid Panel (76713) Comments: PATIENT WAS FASTINGPERFORMED BY: Client24 [facility] [id number] LDL/HDL Ratio 1.3 {ratio_units} (Normal) Range: 0.0-3.2 Cholesterol, Total 153 mg/dL (Normal) Range: 100-199 HDL Cholesterol 60 mg/dL (Normal) Comments: According to ATP-III Guidelines, HDL-C >59 mg/dL is considered anegative risk factor for CHD. LDL Cholesterol Calc 80 mg/dL (Normal) Range: 0-99 Triglycerides 65 mg/dL (Normal) Range: 0-149 VLDL Cholesterol Hector 13 mg/dL (Normal) Range: 5-40 3-Wyw-589793:19 TSH (67591) Comments: PATIENT WAS FASTINGPERFORMED BY: cVidya70 [facility] [id number] TSH 2.650 {uIU/mL} (Normal) Range: 0.450-4.500 73-Guh-476004:14 Urinalysis, Office (10180) UA - BILIRUBIN Negative (Normal) UA - BLOOD Hemolyzed Small (Normal) UA - GLUCOSE Negative (Normal) UA - KETONES Negative mg/dL (Normal) UA - LEUKOCYTE ESTERASE Negative (Normal) UA - NITRITE Negative (Normal) UA - PH 7.0 (Normal) UA - PROTEIN Negative mg/dL (Normal) UA - SPECIFIC GRAVITY 1.015 (Normal) URINE UROBILINGN REYNA TIMED Normal mg/dL (Normal) 18-Gdt-879280:10 TSH (THYROID STIMULATING Comments: PATIENT WAS FASTINGPERFORMED BY: Client24 [facility] [id number] HORMONE) (33320) TSH 2.500 {uIU/mL} (Normal) Range: 0.450-4.500 19-Acp-368120:10 CALCIFEDIOL (71662) Comments: PATIENT WAS FASTINGPERFORMED BY: [employer]6370 [facility] [id number] Vitamin D, 25-Hydroxy 48.1 ng/mL (Normal) Range: 30.0-100.0 Comments: Vitamin D deficiency has been defined by the [place] [facility] Cent[facility] and an Endocrine Society practice guideline as alevel of serum 25-OH vitamin D less than 20 ng/mL (1,2).The Endocrine Society went on to further define vitamin Dinsufficiency as a level between 21 and 29 ng/mL (2).1. IOM ([place] of Medicine). 2010. Dietary reference intakes for calcium and D. [place]: The National Academies Press.2. Roberto MF, Brody OCHOA, Maribell CADENA, et al. Evaluation, treatment, and prevention of vitamin D deficiency: an Endocrine Society clinical practice guideline. JCEM. 2010; 96(7):1911-30. 66-Rqs-795930:10 Lipid Panel (96822) Comments: PATIENT WAS FASTINGPERFORMED BY: [employer]6370 [facility] [id number] LDL/HDL Ratio 2.3 {ratio_units} (Normal) Range: 0.0-3.2 LDL Cholesterol Calc 117 mg/dL (Abnormal) Range: 0-99 VLDL Cholesterol Hector 16 mg/dL (Normal) Range: 5-40 HDL Cholesterol 52 mg/dL (Normal) Comments: According to ATP-III Guidelines, HDL-C >59 mg/dL is considered anegative risk factor for CHD. Triglycerides 78 mg/dL (Normal) Range: 0-149 Cholesterol, Total 185 mg/dL (Normal) Range: 100-199 38-Njh-618794:10 HEPATIC FUNCTION PANEL Comments: PATIENT WAS FASTINGPERFORMED BY: [employer] Kiuaqf8923 [facility] [id number] Information: [id number] (74142) ALT (SGPT) 21 [iU]/L (Normal) Range: 0-40 AST (SGOT) 20 [iU]/L (Normal) Range: 0-40 Alkaline Phosphatase, S 75 [iU]/L (Normal) Range: 25-165 Bilirubin, Direct 0.09 mg/dL (Normal) Range: 0.00-0.40 Albumin, Serum 4.0 g/dL (Normal) Range: 3.5-4.8 Bilirubin, Total 0.3 mg/dL (Normal) Range: 0.0-1.2 Protein, Total, Serum 6.5 g/dL (Normal) Range: 6.0-8.5 :41 TSH (99855) Comments: PATIENT NOT FASTINGPERFORMED BY: [address] [id number] Information: [id number] TSH 3.750 {uIU/mL} (Normal) Range: 0.450-4.500 :39 Prothrombin Time (PT) Comments: PERFORMED BY: [address] [id number] Prothrombin Time 39.0 {sec} (Abnormal) Range: 8.7-11.5 INR 3.6 (Abnormal) Range: 0.8-1.2 Comments: Client Requested Flag Reference interval is for non- anticoagulated patients. . Suggested INR therapeutic ra nge for Vitamin K antagonist therapy: Standard Dose (moderate intensity therapeutic range): 2.0 - 3.0 Higher intensity therapeutic range 2.5 - 3.5 :26 PT (PROTHROMBIN TIME) Comments: PATIENT NOT FASTINGPERFORMED BY: [place] 2145070 [facility] [id number] Information: [id number] CC:[id number] (07166) Prothrombin Time 54.3 {sec} (Abnormal) Range: 8.7-11.5 [...] (Activated Partial Comments: PATIENT NOT FASTINGPERFORMED BY: [place] 2145070 [facility] [id number] Thromboplastin Time) (53537) aPTT 39 {sec} (Abnormal) Range: 24-33 Comments: This test has not been validated for monitoring unfractionated heparintherapy. aPTT-based therapeutic ranges for unfractionated heparintherapy have not been established. For general guidelines onHeparin monitoring, refer to the [facility] Directory of Services. :51 PT (Prothrobim Time) Comments: PATIENT NOT FASTINGPERFORMED BY: [place] 2145070 [facility] [id number] Information: [id number] CC:[id number] (14493) Prothrombin Time 26.1 {sec} (Abnormal) Range: 8.7-11.5 INR 2.4 (Abnormal) Range: 0.8-1.2 Comments: Reference interval is for non-anticoagulated patients. . Suggested INR therapeutic range for Vitamin K anta gonist therapy: Standard Dose (moderate intensity therapeutic range): 2.0 - 3.0 Higher intensity therapeutic range 2.5 - 3.5 :43 HEPATIC FUNCTION PANEL Comments: PATIENT NOT FASTINGPERFORMED BY: [facility]6370 [facility] [id number] Information: [id number] (14978) ALT (SGPT) 25 [iU]/L (Normal) Range: 0-40 AST (SGOT) 19 [iU]/L (Normal) Range: 0-40 Alkaline Phosphatase, S 73 [iU]/L (Normal) Range: 25-165 Albumin, Serum 4.4 g/dL (Normal) Range: 3.5-4.8 Bilirubin, Direct 0.09 mg/dL (Normal) Range: 0.00-0.40 Bilirubin, Total 0.3 mg/dL (Normal) Range: 0.0-1.2 Protein, Total, Serum 6.4 g/dL (Normal) Range: 6.0-8.5 :18 Lipid Panel (48932) Comments: PATIENT NOT FASTINGPERFORMED BY: [employer] Kyssuf6153 [facility] [id number] LDL/HDL Ratio 1.3 {ratio_units} (Normal) Range: 0.0-3.2 [...] FUNCTION PANEL Comments: PATIENT NOT FASTINGPERFORMED BY: Whisbi6370 [facility] MagicEC[facility] [id number] Information: [id number] (46867) ALT (SGPT) 60 [iU]/L (Abnormal) Range: 0-40 Alkaline Phosphatase, S 66 [iU]/L (Normal) Range: 25-165 AST (SGOT) 43 [iU]/L (Abnormal) Range: 0-40 Albumin, Serum 4.3 g/dL (Normal) Range: 3.5-4.8 Bilirubin, Direct 0.10 mg/dL (Normal) Range: 0.00-0.40 Bilirubin, Total 0.3 mg/dL (Normal) Range: 0.0-1.2 Protein, Total, Serum 6.7 g/dL (Normal) Range: 6.0-8.5 :18 CALCIFEDIOL (10790) Comments: PATIENT NOT FASTINGPERFORMED BY: [employer] Fsnmdz2896 [facility] [id number] Vitamin D, 25-Hydroxy 57.3 ng/mL (Normal) Range: 32.0-100.0 Comments: Recent studies consider the lower limit of 32.0 ng/mL to be athreshold for optimal health.Baljit HOWELL. J Nutr. 2004;135(2):317-22. 0-Mcq-469966:49 Urinalysis, Office (77193) UA - BILIRUBIN Negative (Normal) UA - BLOOD Hemolyzed Moderate (Normal) UA - GLUCOSE Negative (Normal) UA - KETONES Negative mg/dL (Normal) UA - LEUKOCYTE ESTERASE Negative (Normal) UA - NITRITE Negative (Normal) UA - PH 7.5 (Normal) UA - PROTEIN Negative mg/dL (Normal) UA - SPECIFIC GRAVITY 1.015 (Normal) URINE UROBILINGN REYNA TIMED Normal mg/dL (Normal) 51-Fhs-721935:38 Urinalysis, Office (72322) UA - BILIRUBIN Negative (Normal) UA - BLOOD Hemolyzed Small (Normal) UA - GLUCOSE Negative (Normal) UA - KETONES Negative mg/dL (Normal) UA - LEUKOCYTE ESTERASE Negative (Normal) UA - NITRITE Negative (Normal) UA - PH 7.5 (Normal) UA - PROTEIN Negative mg/dL (Normal) UA - SPECIFIC GRAVITY 1.015 (Normal) URINE UROBILINGN REYNA TIMED 2 mg/dL (Normal) 22-Snt-20275:47 Metabolic Panel, Basic Comments: PATIENT NOT FASTINGPERFORMED BY: LabCoH[facility] Medical CenterGbbyzy1433 [facility] [id number] Information: [id number] (31499) Calcium, Serum 9.6 mg/dL (Normal) Range: 8.6-10.2 [...] CULTURE-REYNA COL Comments: PATIENT NOT FASTINGPERFORMED BY: [facility]Cafe Dobletox QoizaECU [facility] Hospital [id number] Information: SRC:MICHELL [id number] COUNT (64417) Result 1 NG36 (Normal) Comments: No growth in 36 - 48 hours. Urine Culture,Comprehensive Final report (Normal) :29 Urinalysis, Office (76833) UA - BILIRUBIN Negative (Normal) UA - BLOOD Non Hemolyzed Moderate (Normal) UA - GLUCOSE Negative (Normal) UA - KETONES Negative mg/dL (Normal) UA - LEUKOCYTE ESTERASE Trace (Normal) UA - NITRITE Negative (Normal) UA - PH 6.0 (Normal) UA - PROTEIN Negative mg/dL (Normal) UA - SPECIFIC GRAVITY 1.020 (Normal) URINE UROBILINGN REYNA TIMED Normal mg/dL (Normal) 86-Yrs-292540:44 Microscopic Examination Comments: PATIENT WAS FASTINGPERFORMED BY: [employer] Jizabu8528 [facility] [id number] Bacteria Few (Normal) Mucus Threads Present (Normal) Epithelial Cells (non renal) 0-10 {/hpf} (Normal) Range: 0 - 10 RBC 0-3 {/hpf} (Normal) Range: 0 - 3 WBC 0-5 {/hpf} (Normal) Range: 0 - 5 22-Qlf-778639:44 CALCIFIDIOL (24064) VIT D 25 Comments: PATIENT WAS FASTINGPERFORMED BY: [employer] Eudldz0572 [facility] [id number] Vitamin D, 25-Hydroxy 28.6 ng/mL (Abnormal) Range: 32.0-100.0 Comments: Recent studies consider the lower limit of 32.0 ng/mL to be athreshold for optimal health.Baljit HOWELL. J Nutr. 2004;135(2):317-22. 38-Jpb-523918:44 Folate (08286) Comments: PATIENT WAS FASTINGPERFORMED BY: [employer] Nojlhv5716 [facility] [id number] Folate (Folic Acid), Serum 12.2 ng/mL (Normal) Comments: Indeterminate: 2.2 - 3.0 Deficient: <2.2 98-Aau-481331:44 VITAMIN B-12 (CYANOCOBALAMIN) Comments: PATIENT WAS FASTINGPERFORMED BY: [facility]6370 [facility] [id number] (30060) Vitamin B12 351 pg/mL (Normal) Range: 211-946 84-Kie-959370:44 SED RATE ERYTHROCYTE (72935) Comments: PATIENT WAS FASTINGPERFORMED BY: LabH[facility] Center6370 [facility] [id number] Sedimentation Rate-Westergren 2 mm/h (Normal) Range: 0-30 78-Zcw-516963:44 RHEUMATOID FACTOR-QUANT (18520) Comments: PATIENT WAS FASTINGPERFORMED BY: LabSsm RehabKytskn5784 [facility] [place] [id number] RA Latex Turbid. 10.5 {IU/mL} (Normal) Range: 0.0-13.9 64-Ifj-456594:44 C-REACTIVE PROTEIN (02915) Comments: PATIENT WAS FASTINGPERFORMED BY: LabS[facility] RehabHaxlse3517 [facility] [place] [id number] C-Reactive Protein, Quant 0.9 mg/L (Normal) Range: 0.0-4.9 14-Ikx-025386:44 JOANNA (ANTINUCLEAR ANTIBODY) Comments: PATIENT WAS FASTINGPERFORMED BY: [facility] Center6370 [facility] [id number] (96171) JOANNA Direct Negative (Normal) 32-Nuu-201981:44 LIPID PANEL (80383) Comments: PATIENT WAS FASTINGPERFORMED BY: [facility] Dujnej1690 [facility] [place] [id number] LDL Cholesterol Calc 140 mg/dL (Abnormal) Range: 0-99 LDL/HDL Ratio 1.8 {ratio_units} (Normal) Range: 0.0-3.2 HDL Cholesterol 77 mg/dL (Normal) Comments: According to ATP-III Guidelines, HDL-C >59 mg/dL is considered anegative risk factor for CHD. VLDL Cholesterol Hector 19 mg/dL (Normal) Range: 5-40 Triglycerides 97 mg/dL (Normal) Range: 0-149 Cholesterol, Total 236 mg/dL (Abnormal) Range: 100-199 99-Gfu-561962:44 TSH (60964) Comments: PATIENT WAS FASTINGPERFORMED BY: [facility]6370 [facility] [id number] TSH 1.670 {uIU/mL} (Normal) Range: 0.450-4.500 54-Pdj-679922:44 URINALYSIS, W/ MICRO (52129) Comments: PATIENT WAS FASTINGPERFORMED BY: [place] 2145070 [facility] [id number] Microscopic Examination See below: (Normal) Bilirubin Negative (Normal) Ketones Negative (Normal) Nitrite, Urine Negative (Normal) Occult Blood 1+ (Abnormal) Urobilinogen,Semi-Qn 0.2 mg/dL (Normal) Range: 0.0-1.9 Glucose Negative (Normal) Protein Negative (Normal) Appearance Clear (Normal) pH 7.0 (Normal) Range: 5.0-7.5 Urine-Color Yellow (Normal) WBC Esterase Negative (Normal) Specific [place] 1.016 (Normal) Range: 1.005-1.030 61-Pvy-035030:44 MICROALBUMIN: CREATININE RATIO Comments: PATIENT WAS FASTINGPERFORMED BY: [place] 2145070 [facility] [id number] (27064) AND (48535) Microalb/Creat Ratio 2.8 {mg/g_creat} (Normal) Range: 0.0-30.0 Creatinine, Urine 61.0 mg/dL (Normal) Range: 15.0-278.0 Microalbumin, Urine 1.7 ug/mL (Normal) Range: 0.0-17.0 40-Sft-775407:44 METABOLIC PANEL, COMPREHENSIVE Comments: PATIENT WAS FASTINGPERFORMED BY: [place] 2145070 [facility] [id number] (99636) ALT (SGPT) 16 [iU]/L (Normal) Range: 0-40 [...] Glucose, Serum 92 mg/dL (Normal) Range: 65-99 55-Hvn-622196:44 CBC WITH MANUAL DIFF Comments: PATIENT WAS FASTINGPERFORMED BY: [facility] Ikeujz3902 [facility] [id number] Information: [id number] (12415) Immature Grans (Abs) 0.0 {x10E3/uL} (Normal) Range: [...] 3.80-5.10 WBC 6.1 {x10E3/uL} (Normal) Range: 4.0-10.5 47-Arx-282747:11 [facility] DIGITAL & CAD Radiology Report See Note (Normal) Comments: Exam Number: [id number] MAMMOGRAPHY - BILATERAL SCREENING INDICATION:Routine annual screening [...] of attaching a ResultCode to this exam.ADDENDUM: [id number] HPBI/MDS Reported By: ELEANOR ERNANDEZ M.D. 1-Zqf-459368:01 TSH (24793) Comments: PATIENT NOT FASTINGPERFORMED BY: CB [facility] Jlgacq6459 [facility] [id number] Information: [id number] TSH 0.474 {uIU/mL} (Normal) Range: 0.450-4.500 16-Apr-20108:21 Thin prep Pap (86159) Comments: of cuff, has had hysterectomy; Source.............VaginalLMP / Prev Treat...HystNo. of containers..01 CYTYC Thin Prep VialPATIENT NOT FASTINGPERFORMED BY: [facility] [address] [id number] Information: [id number] Note: PAPSMR (Normal) Comments: The Pap smear [...] hysterectomy.V72.31 ; Routine gynecological exami Davion Mosley [employer] Sales Consultant (ASCP) 64-Cii-894514:57 ABDOMEN/PELVIS W/WO CONTRAST Radiology Report See Note (Normal) Comments: Exam Number: [id number] CLINICAL:Hydronephrosis CT ABDOMEN AND PELVIS WITHOUT / [...] theright-sided hydronephrosis. Reported By: SAVANA AVELAR M.D. 6-Vxc-560056:44 Urinalysis, Office (73141) UA - LEUKOCYTE ESTERASE Negative (Normal) UA - NITRITE Negative (Normal) URINE UROBILINGN REYNA TIMED Normal mg/dL (Normal) UA - PROTEIN Negative mg/dL (Normal) UA - PH 6.5 (Normal) UA - BLOOD Hemolyzed Trace (Normal) UA - SPECIFIC GRAVITY 1.010 (Normal) UA - KETONES Negative mg/dL (Normal) UA - BILIRUBIN Negative (Normal) UA - GLUCOSE Negative (Normal) 35-Ivh-732053:45 KIDNEY (HP) Radiology Report See Note (Normal) Comments: Exam Number: [id number] CLINICAL:The patient is a 69-year-old female who [...] no hydronephrosis Reported By: ELEANOR ERNANDEZ M.D. 85-Ufg-399067:14 BMP BUN/CRE 17.8 {RATIO} (Normal) Range: 10-20 [...] (Normal) GLU 90 mg/dL (Normal) Range: 70-110 45-Fvf-440366:52 Iron and TIBC Comments: PATIENT NOT FASTINGPERFORMED BY: [facility]CoH[facility] Medical CenterQygkda1428 [facility] [id number] Iron Saturation 21 % (Normal) Range: 15-55 Iron, Serum 55 ug/dL (Normal) Range: 35-155 UIBC 202 ug/dL (Normal) Range: 150-375 Iron Bind.Cap.(TIBC) 257 ug/dL (Normal) Range: 250-450 44-Gej-715697:52 Renal function Panel (28152) Comments: PATIENT NOT FASTINGPERFORMED BY: [employer] RightNow TechnologiesECU [facility] [id number] Albumin, Serum 3.7 g/dL (Normal) Range: 3.5-4.8 [...] Glucose, Serum 91 mg/dL (Normal) Range: 65-99 83-Kps-024758:52 Ferritin (83921) Comments: PATIENT NOT FASTINGPERFORMED BY: [employer] Zruqmk6111 [facility] [id number] Ferritin, Serum 338 ng/mL (Abnormal) Range: 13-150 16-Lot-874009:52 CBC with manual diff Comments: PATIENT NOT FASTINGPERFORMED BY: [employer] Nomacorc Murray QoizaECU Health Bert[facility] Hospital [id number] Information: [id number] (58883) Baso (Absolute) 0.0 {x10E3/uL} (Normal) Range: 0.0-0.2 [...] 3.80-5.10 WBC 7.9 {x10E3/uL} (Normal) Range: 4.0-10.5 68-Gxw-702515:20 TSH (22899) Comments: PATIENT NOT FASTINGPERFORMED BY: [facility] Yngelc0762 [facility] [id number] TSH 0.830 {uIU/mL} (Normal) Range: 0.450-4.500 35-Dva-883896:20 CBC with manual diff Comments: PATIENT NOT FASTINGPERFORMED BY: [facility] Ogcrxo2552 [facility] [id number] Information: [id number] (00985) Hematology Comments: Note: (Normal) Comments: Verified by [...] 3.80-5.10 WBC 21.6 {x10E3/uL} (Abnormal) Range: 4.0-10.5 46-Rfi-458018:58 Serum Protein Comments: PATIENT NOT FASTINGPERFORMED BY: [facility]6370 [facility] [id number] Information: ADD [id number] NO DRAW FEE Electrophoresis (SPEP) (86035) A/G Ratio 1.6 (Normal) Range: 0.7-2.0 Please note: SPRCS (Normal) Comments: Protein electrophoresis scan will follow via computer, mail, orcourier delivery. Pneap-1-Hlkaxvgs 0.2 g/dL (Normal) Range: 0.1-0.4 Frkcl-5-Iewkbjqm 0.6 g/dL (Normal) Range: 0.4-1.2 Beta Globulin 0.9 g/dL (Normal) Range: 0.6-1.3 Gamma Globulin 0.9 g/dL (Normal) Range: 0.5-1.6 Globulin, Total 2.6 g/dL (Normal) Range: 2.0-4.5 M-Slim Not Observed g/dL (Normal) Albumin 4.2 g/dL (Normal) Range: 3.2-5.6 Protein, Total, Serum 6.8 g/dL (Normal) Range: 6.0-8.5 29-Gza-937480:58 VITAMIN B-12 (CYANOCOBALAMIN) Comments: PATIENT NOT FASTINGPERFORMED BY: [employer]Group70 [facility] BeautyCentral [facility] Hospital [id number] (08881) Vitamin B12 300 pg/mL (Normal) Range: 211-911 43-Wcp-300553:58 SED RATE ERYTHROCYTE (86783) Comments: PATIENT NOT FASTINGPERFORMED BY: [employer]6370 MurrayTimeTrade SystemsCentral Harnett Hospital [id number] Sedimentation Rate-Westergren 2 mm/h (Normal) Range: 0-30 90-Czw-905134:20 CBC With Differential/Platelet Comments: PATIENT WAS FASTINGPERFORMED BY: [employer]6370 [facility] [id number] Baso (Absolute) 0.1 {x10E3/uL} (Normal) Range: 0.0-0.2 [...] 3.80-5.10 WBC 5.4 {x10E3/uL} (Normal) Range: 4.0-10.5 77-Cff-532668:20 Comp. Metabolic Panel (14) Comments: PATIENT WAS FASTINGPERFORMED BY: [facility] Center6370 [facility] [id number] ALT (SGPT) 19 [iU]/L (Normal) Range: 0-40 [...] Glucose, Serum 95 mg/dL (Normal) Range: 65-99 31-Nrp-264362:20 Lipid Panel With LDL/HDL Comments: PATIENT WAS FASTINGPERFORMED BY: AppbistroCentral Harn[facility] Hospital [id number] Ratio HDL Cholesterol 66 mg/dL (Normal) Comments: [...] 1.050 {uIU/mL} Comments: PATIENT WAS FASTINGPERFORMED BY: [employer]6370 [employer]ury[employer] Power MagicECU Health [facility] Hospital [id number] :20 (Normal) Range: 0.450-4.500 93-Nuh-82011:50 CBCD,SMEAR DIFF BAND 1 % (Normal) Range: [...] :50 TSH 1.25 {uIU/mL} (Normal) Range: 0.34-4.82 85-Acw-494682:41 BILAT SCRN DIGITAL & CAD Radiology Report See Note (Normal) Comments: Exam Number: [id number] MAMMOGRAM, BILATERAL SCREENING DIGITAL AND CAD HISTORYRoutine [...] mammograms werealso examined with computer-aided detection software (YCharts, [employer], [employer].). Reported By: ELEANOR ERNANDEZ M.D. :28 CBCD,SMEAR [...] :28 TSH 0.38 {uIU/mL} (Normal) Range: 0.34-4.82 2-Wmq-342874:04 Rapid Strep Test, Office (67456) Rapid Strep Test, Office Negative (Normal) 61-Qoa-390456:34 BILAT SCRN DIGITAL & CAD Radiology Report See Note (Normal) Comments: Exam Number: [id number] MAMMOGRAM, BILATERAL SCREENING DIGITAL AND CAD HISTORYRoutine [...] mammograms werealso examined with computer-aided detection software (Image[employer], [employer] Reported By: ELEANOR ERNANDEZ M.D. 76-Lhu-749365:31 DEXA BONE DENSITY STUDY (HP) Radiology Report See Note (Normal) Comments: Exam Number: [id number] BONE DENSITOMETRY HISTORYPostmenopausal. TECHNIQUE Bone densitometry of [...] withinnormal limits. Reported By: ELEANOR ERNANDEZ M.D. 39-Wjk-240954:39 COMP METABOLIC A/G 1.1 {RATIO} (Normal) Range: [...] up in 3 months with [facility] Indication: Hypertensive heart disease Hematuria, unspecified : FOLLOW UP IN 3 MONTHS [facility] Indication: Hematuria, unspecified Abnormal blood chemistry : [...] in Sep 2010 make apt [facility] per pt request Indication: Hydronephrosis Hydronephrosis : Follow up for well woman with [facility] per pt request Indication: Hydronephrosis Anemia : FOLLOW UP IN 2 WEEKS January 07 by [facility] Indication: Anemia Abdominal pain, acute, generalized : FOLLOW UP IN 1 WEEK with [facility] Indication: Abdominal pain, acute, generalized Diarrhea : [...] Indication: Bronchitis Planned Observations Metabolic Panel, Comprehensive (11934)Indication: Hypercholesterolemia On: 0-Rou-022788:52 Request Comments: Jun 2018 LIPID PANEL (00959)Indication: Hypercholesterolemia On: 8-Lvw-152405:51 Request Comments: Jun 2018 URINALYSIS (59879)Indication: Hypertension, essential, benign On: 26-Gvn-009307:52 Request MICROALBUMIN: CREATININE RATIO (70975) AND (81393)Indication: Hypertension, essential, benign On: 11-Ymk-885031:52 Request Metabolic Panel, Comprehensive ([id number])Indication: Hypertension, essential, benign On: 12-Qei-286467:50 Request Comments: send to [facility] CBC, Platelets & Auto Diff ([id number])Indication: Hypertension, essential, benign On: 44-Nax-414246:50 Request Comments: send to [facility] TSH ([id number])Indication: Hypothyroidism On: 26-Hep-158911:50 Request Comments: send to [facility] LIPID PANEL ([id number])Indication: Hypercholesterolemia On: 90-Fvh-969794:50 Request Comments: send to [facility] URINALYSIS ([id number])Indication: Hypertension, essential, benign On: 5-Hwy-155012:03 Request Comments: today MICROALBUMIN: CREATININE RATIO ([id number]) AND ([id number])Indication: Hypertension, essential, benign On: 6-Yhp-837056:03 Request Comments: today TSH (87756)Indication: Hypothyroidism On: 8-Ybn-185763:03 Request Comments: Jul 2017 MICROALBUMIN: CREATININE RATIO (19105) AND (89153)Indication: Hypertension, essential, benign On: 47-Ald-641062:51 Request Comments: Mar 2017 URINALYSIS ([id number])Indication: Hypertension, essential, benign On: 78-Afk-822978:51 Request Comments: Mar 2017 TSH (41041)Indication: Hypertension, essential, benign On: 31-Kyl-592690:51 Request Comments: Mar 2017 CBC, Platelets & Auto Diff (80904)Indication: Hypertension, essential, benign On: 83-Fsq-350344:51 Request Comments: Mar 2017 Metabolic Panel, Comprehensive (69210)Indication: Hypertension, essential, benign On: 18-Cpk-522259:51 Request TSH (THYROID STIMULATING HORMONE) (79182)Indication: Hypothyroidism On: 65-Enm-398573:53 Request HEPATIC FUNCTION PANEL (41536)Indication: Hypertension, essential, benign On: 91-Qlt-808135:47 Request VITAMIN B12 AND FOLATES (66240)Indication: Vitamin B 12 deficiency On: 9-Yvx-534589:52 Request CALCIFEDIOL ([id number])Indication: DEFICIENCY, VITAMIN D NOS On: 8-Gpw-142801:52 Request Urinalysis, Office (46709)Indication: Hematuria, unspecified On: 78-Gvx-277803:35 Request MICROALBUMIN URINE QUANT (23394)Indication: Hypertensive heart disease On: 09-Kpq-485848:25 Request FECAL OCCULT HGB ASSAY- tubes sent home (07892)Indication: Well woman exam On: 5-Jkh-088482:51 Request OCCULT BLOOD FECES SCREEN- card done in office (98532)Indication: Well woman exam On: 0-Mue-722499:51 Request Renal function Panel (11060)Indication: Hydronephrosis On: 9-Pyn-466184:22 Request Iron (07670)Indication: Anemia On: 91-Pvm-607357:39 Request Iron Binding Capacity (TIBC) (37544)Indication: Anemia On: 37-Aab-491303:39 Request OVA & PARASITE DIR SMEAR (16434)Indication: Diarrhea On: 06-Hce-907571:50 Request OCCULT BLOOD FECES SCREEN (70712)Indication: Diarrhea On: 69-Xvp-158098:50 Request LEUKOCYTE COUNT, FECAL (02437)Indication: Diarrhea On: 29-Ykd-940591:50 Request C-DIFFICILE, STOOL (98618)Indication: Diarrhea On: 97-Hlr-116857:50 Request LORNA CULTURE-STOOL (25011)Indication: Diarrhea On: 66-Gxq-168513:50 Request HEPATIC FUNCTION PANEL (84385)Indication: Hypercholesterolemia On: 09-Xwp-741310:46 Request Lipid Panel (57419)Indication: Hypercholesterolemia On: 92-Jfh-538432:46 Request Comments: in three months (approximately) TSH (98422)Indication: Hypothyroidism On: 94-Xkl-746277:06 Request METABOLIC PANEL, COMPREHENSIVE ([id number])Indication: Hypertensive heart disease On: 94-Epq-304839:06 Request LIPID PANEL (80322)Indication: Hypertensive heart disease On: 45-Mtb-914995:06 Request CBC WITH MANUAL DIFF (65870)Indication: Hypertensive heart disease On: 47-Gvq-784677:06 Request LORNA CULTURE-OTHER (27427)Indication: Pharyngitis, acute On: 0-Vif-435206:04 Request CBC (Auto) ([id number])Indication: Hypercholesterolemia On: 68-Chb-26373:13 Request Lipid Panel (70678)Indication: Hypercholesterolemia On: :13 Request Metabolic Panel, Comprehensive (55714)Indication: Hypercholesterolemia On: 49-Zyp-24459:13 Request Comments: in six months (approximately) TSH (09398)Indication: Hypothyroidism On: 01-Nds-005329:06 Request LIPID PANEL ([id number])Indication: Hypertension On: 58-Gee-094892:01 Request Planned Encounters Medical; 3 Month FU - On: 14-Jun-2018 10:45 [facility] Sarai Bro CNP, CNP, Mary E Planned Procedures Radiology - Femur - RightBy: Hang On: 02-Mar-2018 Intent Sarai CARNEY CNP, Mary E DEXA SCAN AXIAL SKELETON On: 19-Oct-2017 Intent ([id number])By: Sarai Bro CNP, CNP, Mary E Aerosol Treatment ([id number])By: On: 07-Sep-2017 Intent Kelly Naqvi Comments: Lungs clear after aerosol treatment Flu Vaccine (Quadrivalent) On: 13-Apr-2017 Intent [id number]: Giselle Silva LPN Comments: InfluenzaLot #[id number]-01/24/18Site-L dltd, IMDose prefilled syringeVIS and ABN signedgiven by:ROSA MARIA cade MAMMOGRAM BREAST BILATERAL On: 05-Jan-2017 Intent SCREENING DIGITAL ([id number])By: Hang Comments: after Apr 24 2017 Sarai CARNEY CNP, Mary E DEXA SCAN AXIAL SKELETON On: 05-Jan-2017 Intent (98313)By: Sarai Bro CNP Comments: After Apr 24 2017 Sarai CARNEY Flu Vaccine (Quadrivalent) On: 06-Jul-2016 Intent [id number]: Giselle Silva LPN Comments: InfluenzaLot #Lot [id number]/30/17Site-L dltd, IMDose prefilled syringeVIS and ABN signedgiven by:ROSA MARIA cade MAMMOGRAM, SCREENING, BOTH BREAST On: 31-Mar-2016 Intent ([id number])By: Sarai Bro CNP, CNP, Mary E MAMMOGRAM, SCREENING, BOTH BREAST On: 17-Feb-2016 Intent (36468)By: Sarai Bro CNP, CNP, Mary E PHYSICAL THERAPY EVALUATION On: 28-Jan-2016 Intent (60440)By: Sarai Bro CNP, CNP, Mary E PHYSICAL THERAPY EVALUATION On: 28-Jan-2016 Intent ([id number])By: Sarai Bro CNP, CNP, Mary E Toradol Injection, 30 mg On: 28-Jan-2016 Intent ([id number])By: Sarai Bro CNP, CNP, Mary E Radiology - Lumbar SpineBy: Hang On: 28-Jan-2016 Intent Sarai CARNEY CNP, Mary E Radiology - Knee - LeftBy: Hang On: 28-Jan-2016 Intent Sarai CARNEY CNP, Mary E Aerosol Treatment (10210)By: Hang On: 24-Dec-2015 Intent Sarai CARNEY CNP, Mary E Flu Vaccine (Quadrivalent) On: 10-May-2015 Intent 99952Ok: Sarai Bro CNP Comments: Lot:[id number]:02/06/16Dose:0.5mLRoute:IMSite:L DltdGiven By:Kacie signed ANGELIKA Sarai Moon DEXA SCAN AXIAL SKELETON On: 19-Mar-2015 Intent ([id number])By: Hang CARNEY Rianna Ciwojciechyin CARNEY Sarai Moon MAMMOGRAM, SCREENING, BOTH BREAST On: 11-Feb-2015 Intent ([id number])By: Hang CARNEY Sarai Moon Tiffaniebonita ANGELIKA Sarai Moon DEXA SCAN AXIAL SKELETON On: 11-Feb-2015 Intent ([id number])By: Hang CARNEY Rianna Cibonita ANGELIKA Sarai Moon Solu -Medrol Injection, 125 mg On: 25-Jul-2014 Intent (J2930)By: Sarai Bro CNP Comments: [id number] 5.17right gm125 mgas, ROSA MARIA CARNEY Rianna Aerosol Treatment (99178)By: Hang On: 25-Jul-2014 Intent ANGELIKA Sarai Moon Tiffaniebonita ANGELIKA Sarai Moon Toradol Injection, 30 mg On: 18-Jul-2014 Intent ([id number])By: Hang CARNEY Rianna Ciwojciechyin CARNEY Rianna Radiology - Lumbar SpineBy: Hang On: 18-Jul-2014 Intent ANGELIKA Sarai Moon Tiffaniebonita ANGELIKA Sarai Moon Radiology - Hip - RightBy: Hang On: 18-Jul-2014 Intent ANGELIKA Sarai Moon Tiffaniebonita ANGELIKA Sarai Moon Prevnar 13 ([id number])By: Ricardo CRANE, On: 16-Jul-2014 Intent Giselle Comments: [id number] arm, IMAS Bone Density StudyBy: Hang CARNEY, On: 15-May-2014 Intent Sarai Bro CNP Sarai Moon ADMINISTRATION OF INFLUENZA VIRUS On: 15-May-2014 Intent VACCINE (G0008)By: Sarai Bro CNP, CNP Rianna FLU VAC, SPLIT, >3 YEARS, On: 15-May-2014 Intent INTRAMUSC (15818)By: Hang CARNEY, Comments: Lot:[id number]/24Dose:0.5mLRoute:IMSite:L DltdGiven By:FIDENCIO signed Rianna Tiffaniewojciechyin CARNEY Rianna SPECIMEN HNDLNG/TRNSPRT, OFFC > On: 22-Mar-2014 Intent LAB ([id number])By: Hang CARNEY RiannaRed Bro CNP Rianna BILATERAL MAMMOGRAMS (74659)By: On: 18-Dec-2013 Intent Hang CARNEY Rianna Ciwojciechyin CARNEY Rianna Aerosol Treatment (43494)By: Hang On: 22-Sep-2013 Intent ANGELIKA RiannaRed Bro CNP Rianna Wax CurettesBy: Sarai Bro CNP On: 22-Sep-2013 Intent Hang CARNEY Rianna Ear Irrigation (16361)By: Hang On: 22-Sep-2013 Intent ANGELIKASarai Hang CARNEY Rianna Eprescribed prescriptions On: 18-Aug-2013 Intent (G8553)By: Lucrecia aVrgas Eprescribed prescriptions On: 05-May-2013 Intent (G8553)By: Sarai Bro CNP, CNP Rianna ADMINISTRATION OF INFLUENZA VIRUS On: 05-May-2013 Intent VACCINE (G0008)By: Aristides CRANE, Comments: lot # [id number] 6.2014site- L dltdroute-IMdose- 0.5mlVIS and [facility] signedUniversity Hospitals Parma Medical Centerfili Francis FLU VAC, SPLIT, >3 YEARS, On: 05-May-2013 Intent INTRAMUSC ([id number])By: Penny Irving LPN MAMMOGRAM, SCREENING, BOTH BREASTS On: 16-Dec-2012 Intent (88068)By: Hang CARNEY RiannaRed Bro CNP Rianna Spirometry (96365)By: Aristides CRANE, On: 16-Dec-2012 Intent Penny Comments: mild airway obstruction Aerosol Treatment (62572)By: Hang On: 30-Mar-2012 Intent ANGELIKA RiannaRed Bro CNP Rianna PFT - CompleteBy: Sarai Bro CNP On: 01-Mar-2012 Intent Red Bro CNP Rianna Inhaler Demonstration ([id number])By: On: 28-Dec-2011 Intent Hang CARNEY RiannaRed Bro CNP Rianna Pulse Oximetry (25981)By: Hang On: 28-Dec-2011 Intent FRACTIONATION SUPERVISOR, Saari Busby CNP Eprescribed prescriptions On: 22-Apr-2011 Intent (G8553)By: Sarai Bro CNP, CNP, Mary E Eprescribed prescriptions On: 21-Oct-2010 Intent (G8553)By: Sarai Bro CNP, CNP, Mary E Eprescribed prescriptions On: 21-Oct-2010 Intent (G8553)By: Hang CARNEY Sarai Bro CNP Sarai Moon MAMMOGRAM, SCREENING, BOTH BREASTS On: 15-Apr-2010 Intent (13345)By: Hang CARNEY Sarai Bro CNP Sarai Moon [...] SPLIT, >3 YEARS, On: 22-May-2009 Intent INTRAMUSC (14080)By: Kelle CRANE, Comments: Lot #[id number]-left deltoidgiven by:MELA Collins Pulse Oximetry (33057)By: Jay On: 25-Sep-2008 Intent PRESTON ADMINISTRATION OF INFLUENZA VIRUS On: 13-Jun-2008 Intent VACCINE (G0008)By: Aristides CRANE, Comments: lot #[id number] exp- 01/15site-left delroute-imdose- 0.5 Penny FLU VAC, SPLIT, >3 YEARS, On: 13-Jun-2008 Intent INTRAMUSC ([id number])By: Penny Irving LPN MAMMOGRAM, SCREENING, BOTH BREASTS On: 28-May-2008 Intent (86742)By: Susan Lee MD M Bio Z (02524)By: Susan Lee MD On: 28-Nov-2007 Intent M SPECIMEN HNDLNG/TRNSPRT, OFFC > On: 12-Oct-2007 Intent LAB (32290)By: Tyesha Ramos DO Bone Density StudyBy: Rosa CHRISTIANSEN, On: 18-Feb-2007 Intent Susan Sánchez Comments: ache in back MAMMOGRAM, SCREENING, BOTH BREASTS On: 18-Feb-2007 Intent (97751)By: Susan Lee MD Bio Z ([id number])By: Susan Lee MD On: 20-Jul-2006 Intent M Planned Medications INJECTION, KETOROLAC TROMETHAMINE, PER 15 MG Ordered: 18-Jul-2014 Pending Ciesa FRACTIONATION SUPERVISOR, Rianna Ciesa FRACTIONATION SUPERVISOR, Rianna INJECTION, KETOROLAC TROMETHAMINE, PER 15 MG Ordered: 28-Jan-2016 Pending Ciesa FRACTIONATION SUPERVISOR, Rianna Ciesa FRACTIONATION SUPERVISOR, Rianna INJECTION, METHYLPREDNISOLONE SODIUM SUCCINATE, UP TO 125 MG Ordered: 25-Jul-2014 Pending Ciesa FRACTIONATION SUPERVISOR, Rianna Ciesa FRACTIONATION SUPERVISOR, Rianna Instructions Name Dates Details Nonsmoker : [...] The patient does have durable power of patent attorney and living will. The patient has noticed nothing from the geriatic depression scale. Other providers contributing to the katty ent's care are air intercept controller (Dr paz ), photographic press screwmaker (Dr Vazquez ), urologist (Dr Pope ) [...]
--- OUTSIDE RECORDS SUMMARY | 2018-10-30 18:21 | XMS RPT_ITS | Continuity of Care Document ---
:1940 Author Organization [facility] Address [address] [facility] [address] [place] [address] Phone Care Team Providers Name Role Phone Tiffaniebonita ANGELIKA, Rianna Unavailable Amanda CHRISTIANSEN, Higinio Longoria Unavailable Turner CHRISTIANSEN, Nahun Plaza Unavailable [facility], Eugenie Tovar Unavailable Rosa CHRISTIANSEN, [...] days Quantity: 180 {Tablet} Refills: 3 Ordered:05-Oct-2016 Adali CARNEY, Sarai Ace CNP, Sarai Moon Start : 05-Oct-2016 Active Cosamin ASU for Joint Health Oral Capsule Active COUMADIN, 2MG (Oral Tablet) 1 (one) Tablet as needed for 360 days Refills: 0 Ordered:11-Feb-2015 Adali CARNEY, Sarai Ace CNP, Sarai Moon Start : 11-Feb-2015 Active Comments:Medication taken as needed. Dr Paz Fosamax 70 MG Oral Tablet 1 (one) Tablet q week for 30 days Quantity: 4 {Tablet} Refills: 6 Ordered:03-Jun-2018 Adali CARNEY, Sarai Ace CNP, Sarai Moon Start : 03-Jun-2018 Active Comments:Take w/ water, 30 min before you eat, or drink, or take medicine. Avoid laying down for 30 minutes after. Start 11/24/2017 stop 5 years after 11/2022 Lasix 40 MG Oral Tablet 1 (one) Tablet every other day for 360 days Quantity: 90 {Tablet} Refills: 0 Ordered:19-Aug-2018 Adali CARNEY, Sarai Ace CNP, Sarai Moon Start : 19-Aug-2018 Active LISINOPRIL, 40MG (Oral Tablet) 1 Tablet [...] days Quantity: 90 {Tablet} Refills: 3 Ordered:01-May-2018 Adali CARNEY, Sarai Jung CNP Start : 01-May-2018 Active Vasculera Oral Tablet 1 (one) Tablet Tablet daily for 0 days Quantity: 30 {Tablet} Refills: 0 Ordered:05-Oct-2016 Sarai Bro CNP, CNP, Mary E Start : 05-Oct-2016 Active Comments:Dr Patel Vitamin D 2000 UNIT Oral Capsule 1 (one) Capsule Capsule daily for 30 days Quantity: 30 {Capsule} Refills: 11 Ordered:02-Mar-2018 Adali CARNEY, Sarai Jung CNP Start : 26-Nov-2017 [...] weekly for 360 days Refills: 0 Ordered:13-Apr-2017 Adali CARNEY, Sarai Ace CNP, Sarai Moon Start [...] days Quantity: 20 {Capsule} Refills: 0 Ordered:18-Aug-2013 Adali CARNEY, Sarai Ace CNP, Sarai Moon Start : 18-Aug-2013 End : 28-Aug-2013 Inactive DRISDOL, [id number] (Oral Capsule) 1 Capsule twice weekly for [...] 04/29 left Completed leg Date Value Details 08-Jul-2018 SCREENING MAMM (CAD), BILAT Result: Comments: See Note; NOTES: [facility] Imaging Services [address] [place] [address] SCREENING MAMM (CAD), BILAT MR#: [id number] Acct: [id number] Name: VALERIE CRAIN Rep #: [id number] : 1940 F 78 From: Henry Jones MD PCP: Sarai Bro NP Status: REG CLI Study: SCREENING MAMM (CAD), BILAT Date of Exam: 07/08/18 Exam# [id number] Ordering Dr: Sarai Bro VICE PRESIDENT OF DEVELOPMENT-C M AMMOGRAPHY - BILATERAL SCREENING REASON FOR EXAM: Female, 78 years old. Routine annual screening examination. PERTINENT HISTORY: Non-contributory. TECHNIQUE: Digital bilateral breast maurilio (3D mammogr aphic acquisition) in the CC and MLO projections. 2-D mediolateral oblique (MLO) and craniocaudad (CC) views of both breasts were obtained. CAD: Full Field Digital Mammography with Computer Added Detect ion was performed. COMPARISON: Comparison is made with prior study dated May 17, 2017 and April 24, 2016. FINDINGS: Breast Composition: There are scattered a reas of fibroglandular density. There are no dominant masses or suspicious calcifications. No other significant abnormalities are identified. There has been no significant change since the prior study . BI/SCREENING MAMM (CAD), BILAT IMPRESSION: Stable bilateral screening mammogram. Yearly follow-up mammogram recommended. (A) ASSESSMENT CATEGORY: BIRADS Category 1: Negative. A letter regarding these results will be sent to the patient by the facility within 30 days. Approximately 10% of breast cancers ar e not detected by mammography. A normal mammogram should not delay biopsy of a clinically suspicious abnormality. [id number] Electronically Signed: Henry Jones MD at 12:32 EST Tel [phone], Service support , CC: Sarai Bro NP Conveyor Mechanic: Signed 08-Apr-2018 Venous Duplex Lower Extremity Result: Comments: See Note; NOTES: [facility] Cardiovascular Services [address] [place] [address] Venous Duplex US - Paulie Extrem 04/07/18 1000 MR#: [id number] Acct: [id number] Name: VALERIE CRAIN Rep #: [id number] : 1940 77 From: Higinio Patel MD [...] Dictated: 04/07/18 1000 Date Transcribed: 04/08/18 1605 Conveyor Mechanic: Signed 02-Mar-2018 Femur Min 2 Views Result: Comments: See Note; NOTES: [facility] Imaging Services [address] [place] [address] Femur Min 2 Views MR#: [id number] Acct: [id number] Name: VALERIE CRAIN Rep #: [id number] : 1940 F 77 From: Christiano Croft MD PCP: Sarai Bro NP Status: REG CLI Study: Femur Min 2 Views Date of Exam: 03/02/18 Exam# [id number] Ordering Dr: Sarai Bro STUDY: X-RAY - [...] vice support , CC: Sarai Bro NP Conveyor Mechanic: Signed 10-Feb-2018 Echocardiogram Complete Result: Comments: See Note; NOTES: [facility] Cardiovascular Services [address] [place] [address] Echo Complete 02/10/18 1100 MR#: [id number] Acct: [id number] Name: VALERIE CRAIN Rep #: [id number] : 1940 77 From: Amilcar Paz MD Attending Dr: Jennifer Goodwin Status: REG CLI Ordering Dr: Jennifer Goodwin Date: 02/10/18 Location: [facility] Sex: F C Admitted: Oliver ramírez For Study: DYSPNEA Procedure This was a [...] Date Amilcar Paz MD CC: Sarai Bro VICE PRESIDENT OF DEVELOPMENT; Jennifer Goodwin Date Dictated: 02/10/18 1100 Date Transcribed: 02/10/18 1241 Conveyor Mechanic: Signed 28-Jan-2018 Cardiology Visit Report Result: Comments: See Note; NOTES: [facility] [address] [place] [address] OFFICE VISIT Date of Service: 01/28/18 MR#: [id number] Acct: [id number] Name: VALERIE CRAIN Rep #: [id number] : 1940 Provider: Jennifer Goodwin Age/Sex: 77/F Location[place] [facility] Status: Signed HPI HPI Details: VALERIE [...] for her age. 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 She does have [...] History Father Decea sed, age 48 from [place] CAD (coronary artery disease) Sudden cardiac Myocardial [...] was generated using a voice recognition syst [employer] and there may be incorrect words, spelling or punctuation errors that were not noted when reviewing the office note prior to saving. 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 This patient may have a combination of pa per and electronic documentation or all paper documentation. All documentation is viewable within the e-chart portion of [place] for each patient visit. 09-Nov-2017 Dexa Bone Density Study Result: Comments: See Note; NOTES: [facility] Imaging Services [address] [address] Dexa Bone Density Study MR#: [id number] Acct: [id number] Name: VALERIE CRAIN Rep #: [id number] : 1940 F 77 From: Henry Jones MD PCP: Sarai Bro NP Status: REG CLI Study: Dexa Bone Density Study Date of Exam: 11/09/17 Exam# [id number] Ordering Dr: Sarai Bro STUDY: DUAL E [...] Henry Jones MD at 13:40 EDT Tel [phone], Service support , CC: Sarai Bro NP Conveyor Mechanic: Signed 27-Jul-2017 Cardiology Visit Report Result: Comments: See Note; NOTES: [facility] [address] [place] [address] OFFICE VISIT Date of Service: 07/27/17 MR#: [id number] Acct: [id number] Name: SEAN CRAIN ep #: [id number] : 1940 Provider: Amilcar Paz MD Age/Sex: 77/F Location: [facility] Status: Signed HPI 6 M FU [...] 07/27/17] Ejection fraction %: 40 to 44 [facility] Medical History Dilated cardiomyopathy (Chronic) Long-term use of high-risk medication (Chronic ) History of mitral valve disorder (Chronic) Paroxysmal atrial fibrillation (Chronic) skilled nursing (current) use of anticoagulants (Chronic) Benign essential HTN (Chronic) Dyslipidemia (Chronic) mitral maria m vuplasty (Chronic) Surgical History H/O mitral valve repair (Chronic) Family History Father , age 48 from [place] CAD (coronary artery disease) Sudden cardiac Myocardial [...] Signature: Date (if applicable) CC: Sarai Bro VICE PRESIDENT OF DEVELOPMENT 17-May-2017 SCREENING MAMM (CAD), BILAT Result: Comments: See Note; NOTES: [facility] Imaging Services [address] [place] [address] SCREENING MAMM (CAD), BILAT MR#: [id number] Acct: [id number] Name: SEAN CRAIN Rep #: [id number] : 1940 F 76 From: Henry Jones MD PCP: Sarai Bro Status: REG CLI Study: SCREENING MAMM (CAD), BILAT Date of Exam: 05/17/17 Exam# [id number] Ordering Dr: Sarai Bro MAMMOGRAPH Y - [...] delay biopsy of a clinically suspicious abnormality. [id number] Electronically Signed: Henry Jones MD at 10:21 EDT Tel [phone], Service support , CC: Sarai Bro Conveyor Mechanic: Signed 27-Feb-2017 Carotid Duplex Ultrasound Result: Comments: See Note; NOTES: [facility] Cardiovascular Services [address] [place] [address] Carotid Duplex Ultrasound 02/26/17 1046 MR#: [id number] Acct: [id number] Name: SEAN ABEBE Rep #: [id number] : 1940 76 From: Malcolm Hill MD Attending Dr: Jennifer Goodwin Status: REG CLI Ordering Dr: Jennifer Goodwin Date: 02/26/17 Location: [facility] Sex: F C Admitte d: Reason [...] the left bulb. Procedure Carotid Duplex 9 5471. The exam was diagnostic. Exam performed in [...] Dictated: 02/26/17 1046 Date Transcribed: 02/27/17 1103 Conveyor Mechanic: Signed 03-Sep-2016 Chest PA and Lateral Result: Comments: See Note; NOTES: [facility] Imaging Services [address] [place] [address] Verdana 4d Chest PA and Lateral MR#: [id number] Acct: [id number] Name: SEAN CRAIN Rep # : [id number] : 1940 F 76 From: Henry Jones MD PCP: Sarai Bro Status: REG CLI Study: Chest PA and Lateral Date of Exam: 09/03/16 Exam# [id number] Ordering Dr: Nahun Vazquez MD STUD Y: [...] Henry diop MD at 12:41 EST Tel [phone], Service support [phone], CC: Sarai Bro; Nahun Vazquez MD Conveyor Mechanic: Signed 28-Aug-2016 Echocardiogram Complete Result: Comments: See Note; NOTES: [facility] Cardiovascular Services [address] [place] [address] Echo Complete 08/28/16 1003 MR#: [id number] Acct: [id number] Name: SEAN CRAIN p #: [id number] : 1940 76 From: Amilcar Paz MD Attending Dr: Amilcar Paz MD Status: REG CLI Ordering Dr: Amilcar Paz MD Date: 08/28/16 Location: [facility] Sex: F C Admitted: Reason For Study: AT [facility] FIB[facility] Procedure This was a 2D [...] E' Jethro: 10.8 cm/sec MV A max jtehro: 125.2 cm/sec E/E' lat: 29.8 E/E' med: [...] Dictated: 08/28/16 1003 Date Transcribed: 08/28/16 1225 Conveyor Mechanic: Signed 24-Apr-2016 Bilat Scrn Digital AND CAD Result: Comments: See Note; NOTES: [facility] Imaging Services [address] [place] [address] Verdana 4d Bilat Scrn Digital AND CAD MR#: [id number] Acct: [id number] Name: SEAN CRAIN Rep #: [id number] : 1940 F 75 From: Henry Jones MD PCP: Sarai Bro Status: REG CLI Study: Bilat Scrn Digital AND CAD Date of Exam: 04/24/16 Exam# [id number] Ordering Dr: Sarai Bro MAMMOGRAPHY - BILATERAL [...] delay biopsy of a clinically suspicious abnormality. [id number] Electronically Signed: Henry Jones MD at 10:58 EDT Tel [phone], Service support [phone], CC: Sarai Bro Conveyor Mechanic: Signed 04-Mar-2016 PT D/C Summary (1) Result: Comments: See Note; NOTES: [facility] [address] [place] [address] Fax REHABILITATION SE RVICES DISCHARGE SUMMARY MR#: [id number] Acct: [id number] Name: SEAN CRAIN Rep #: [id number] : 1940 75 From: Giselle Yan MPT [...] please feel free to call me at [phone]. Thank you for the referral of this patie nt. Sincerely, Giselle Yan <Electronically signed by Giselle Yan MPT> 03/04/16 1917 CC: Sarai Bro Signed 04-Feb-2016 Inital Evaluation (1) - PT Result: Comments: See Note; NOTES: [facility] [address] [place] [address] Fax [facility]#: [id number] Acct: [id number] Name: SEAN CRAIN Rep #: [id number] : 1940 75 From: Giselle NELSON Referring Dr.: Sarai Bro Status: REG RCR Insurance: MEDICARE PART A B [facility] Patient's Visit Information SEAN CRAIN is a [...] to be FAXED BACK to us at [phone] for Medicare purposes . Please let me know if there are questions or concerns regarding this plan of care. Physician Signature: Date: <Electronical ly signed by Giselle Yan MPT> 02/04/16 1628 CC: Sarai Bro Signed For Medicare only, by signing this I certify the plan of care. Physicians Signature Date 28-Jan-2016 Knee 4 or More Views Result: Comments: See Note; NOTES: [facility] Imaging Services [address] [place] [address] Verdana 4d Knee 4 or More Views MR#: [id number] Acct: [id number] Name: SEAN DWYER Rep #: [id number] : 1940 F 75 From: Shreyas Beaver MD PCP: Sarai Bro Status: REG CLI Study: Knee 4 or More Views Date of Exam: 01/28/16 Exam# [id number] Ordering Dr: Sarai Bro STUDY: X-RAY - [...] MD at 19:39 EDT , Service support [phone], ORDER # : [id number] RAD/Knee 4 or More Views IMPRESSION: No acute abnormality. Mild degenerative changes. Electronically Signed: Shreyas Beaver MD at 19:39 EDT , Service sup port [phone], CC: Sarai Bro Conveyor Mechanic: Signed 28-Jan-2016 L/S Spine Min 4 Views Result: Comments: See Note; NOTES: [facility] Imaging Services [address] [place] [address] Verdana 4d L/S Spine Min 4 Views MR#: [id number] Acct: [id number] Name: SEAN BERRIOS Rep #: [id number] : 1940 F 75 From: Shreyas Beaver MD PCP: Sarai Bro Status: REG CLI Study: L/S Spine Min 4 Views Date of Exam: 01/28/16 Exam# [id number] Ordering Dr: Shital Bro STUDY: X-RAY - [...] MD at 19:40 EDT , Service support [phone], Fax RAD/L/S Spine Min 4 Views IMPRESSION: No acute abnormality. Mild to moderate degenerative changes. Electronically Signed: Shreyas Beaver MD at 19:40 EDT T el [phone], Service support [phone], CC: Sarai Bro Conveyor Mechanic: Signed 19-Mar-2015 Dexa Bone Density Study (HP) Result: Comments: See Note; NOTES: [facility] Imaging Services [address] [place] [address] Bone Density Report MR#: [id number] Acct: [id number] Name: SEAN CRAIN Rep #: [id number] : 1940 F 74 From: Henry Jones MD PCP: Sarai Bro Status: REG CLI Study: Dexa Bone Density Study (HP) Date of Exam: 03/19/15 Exam# [id number] Ordering Dr: Sarai Bro STUD Y: DUAL [...] Henry Jones MD at 14:35 EDT Tel [phone], Servic e support [phone], CC: Sarai Bro Conveyor Mechanic: Signed 12-Mar-2015 Bilat Scrn Digital AND CAD Result: Comments: See Note; NOTES: [facility] Imaging Services [address] [place], [place] [address] [address] Breast Imaging Report MR#: [id number] Acct: [id number] Name: SEAN CRAIN Rep #: [id number] : 1940 F 74 From: Henry Jones MD PCP: Sarai Bro Status: REG CLI Study: Jero Scrn Digital AND CAD Date of Exam: 03/12/15 Exam# [id number] Ordering Dr: Sarai Bro MAMM OGRAPHY - [...] Jones MD 23/03/04 at 9:59 EDT Tel [phone], Service support [phone], CC: Sarai Bro Conveyor Mechanic: Signed 16-Jan-2015 Operative Report Result: Comments: See Note; NOTES: [facility] Medical Records Department [address] [place] [address] Operative Report MR#: [id number] Acct: [id number] Name: SEAN CRAIN Rep #: [id number] : 1940 74 From: Amilcar Paz MD [...] care. Amilcar Paz MD T: NTS JOB: [id number] 01/16/15 0901 <Electronically signed by Amilcar Paz MD&amp ;#62; Date Amilcar Paz MD CC: Sarai Bro; Amilcar Paz MD Date Dictated: 01/14/151318 Date Transcribed: 01/14/151318 Conveyor Mechanic: Signed 15-Jan-2015 Consultation Result: Comments: See Note; NOTES: [facility] Medical Records Department [address] [place] [address] Consultation MR#: [id number] Acct: [id number] Name: SEAN CRAIN Rep #: [id number] : 1940 74 From: Armando Waite MD [...] in the past without complications. The p pato reports her last meal was last night [...] HENDERSON C: Amilcar Bro T: SHARMAINE JOB: [id number] 01/15/15 0643 <Electronically signed by Armando Waite MD> Date Armando Waite MD CC: Sarai Bro; Armando Waite MD; Amilcar Paz MD Date Dictated: 01/14/15 1357 Date Transcribed: 01/14/151356 Conveyor Mechanic: Signed 07-Jan-2015 Chest PA and Lateral Result: Comments: See Note; NOTES: [facility] Imaging Services [address] [place] [address] Radiology Report MR#: [id number] Acct: [id number] Name: SEAN CRAIN Rep #: [id number] : 1940 F 74 From: Henry Jones MD PCP: Sarai Bro Status: PRE CLI Study: Chest PA and Lateral Date of Exam: 01/07/15 Exam# [id number] Ordering Dr: Amilcar Paz MD STUDY: X-RA [...] Henry Jones MD at 14:28 EDT Tel [phone], Service support [phone], RAD/Chest PA and Lateral IMPRESSION: Hyperinflation. No acute abnormality is seen. Electronically Signed: Henry Jones MD 2014 at 14:28 EDT Tel [phone], Service support [phone], CC: Sarai Bro; Amilcar Paz MD Conveyor Mechanic: Signed 24-Dec-2014 Echocardiogram Complete Result: Comments: See Note; NOTES: [facility] Cardiovascular Services [address] [place] [address] Echo Complete 12/24/14 1003 MR#: [id number] Acct: [id number] Name: SEAN CRAIN Rep #: [id number] : 1940 74 From: Amilcar Paz MD Attending Dr: Jennifer Monroe Status: REG CLI Ordering Dr: Jennifer Monroe Date: 12/24/14 Location: [facility] Sex: F C Admitted: Jose Alfredo [...] Dictated: 12/24/14 1003 Date Transcribed: 12/24/14 1359 Conveyor Mechanic: Signed 19-Jul-2014 Hip min 2 Views Result: Comments: See Note; NOTES: [facility] Imaging Services [address] [place] [address] Radiology Report MR#: [id number] Acct: [id number] Name: SEAN CRAIN Rep #: [id number] : 1940 F 74 From: Henry Jones MD PCP: Sarai Bro Status: REG CLI Study: Hip min 2 Views Date of Exam: 07/19/14 Exam# [id number] Ordering Dr: Sarai Bro STUDY: X-RAY - [...] Henry Jones MD at 11:38 EST Tel [phone], Service support [phone], RAD/Hip min 2 Views IMPRESSION: Degenerative changes of the hip. Electronically Signed: Henry Jones MD at 11:38 EST Tel [phone], Service support [phone], CC : Sarai Bro Conveyor Mechanic: Signed 19-Jul-2014 L/S Spine Min 4 Views Result: Comments: See Note; NOTES: [facility] Imaging Services [address] [place] [address] Radiology Report MR#: [id number] Acct: [id number] Name: SEAN CRAIN Rep #: [id number] : 1940 F 74 From: Henry Jones MD PCP: Sarai Bro Status: REG CLI Study: L/S Spine Min 4 Views Date of Exam: 07/19/14 Exam# [id number] Ordering Dr: Sarai Bro STUDY: X-RAY - [...] Henry Jones MD at 13:19 EST Tel [phone], Service support [phone], CC: Sarai Bro Conveyor Mechanic: Signed 05-Jan-2014 Bilat Scrn Digital & CAD Result: Comments: See Note; NOTES: [facility] Imaging Services [address] [place] [address] Breast Imaging Report MR#: [id number] Acct: [id number] Name: SEAN CRAIN Rep #: [id number] : 1940 F 73 From: Henry Jones MD [facility]CP: [facility] Ex[facility]# [id number] Ordering Dr: Sarai Bro MAMMOGRAPHY - BILATERAL [...] Henry Jones MD at 9:58 EDT Tel [phone], Service support [phone], CC: Sarai Bro; Amilcar Paz MD Conveyor Mechanic: Signed Immunization Name Dates Details Influenza (3 years and up) on: 13-Jun-2008 Influenza (3 years and up) on: 22-May-2009 Comments: Lot #[id number]-[id number] deltoidgiven by:CDH Family History Unknown Family Member Name Dates Details Father Comments: [place] at 48 & Status: Active Social History Name Dates Details Caffeine Use Comments: 2 cups coffee qd 1 soda qod Status: Active 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 Status: Inactive Tobacco use: Never smoker. Status: Inactive Vital Signs Date Test Result Details 90-Peo-654018:17 Temperature 97.8 f Comments: Method: Temporal Pulse [...] kg/m2 Body Surface Area Calculated 1.88 m2 :20 Temperature 99.4 f Comments: Method: Temporal [...] 0.00 cm Results Date Description Value Details :02 Prothrombin Time w/INR Comments: [facility] [address] [place], [address] INR 2.5 (Normal) PROTIME 27.0 s (Abnormal) Range: 11.7-14.9 :06 Folates, (Folic Acid) Comments: SARAI KELSEYVon ORDERED: TSH, B12, FOLSDR TOVA ORDERED: PT, LIPID, LIVERIs Patient Taking Vitamins or Folic Acid Supplements? [facility] [address] [place], [address] FOLATES 15.70 ng/mL (Normal) Range: 3.1-55.4 :06 Lipid Profile Comments: SARAI BRO ORDERED: TSH, B12, FOLSDR TOVA ORDERED: PT, LIPID, LIVERIs Patient Taking Vitamins or Folic Acid Supplements? [facility] [address] [place], [id number] VLDL 17 mg/dL (Normal) Range: 5-40 LDL 71 mg/dL (Normal) Range: 0-130 HDL 73 mg/dL (Normal) Comments: The drugs N-Acetylcysteine and [...] 200-240 mg/dL Borderline >240 mg/dL High Risk 65-Qzd-61520:06 Liver Profile Comments: SARAI BRO ORDERED: TSH, B12, FOLSDR TOVA ORDERED: PT, LIPID, LIVERIs Patient Taking Vitamins or Folic Acid Supplements? [facility] [address] [place], [address] D BILI 0.13 mg/dL (Normal) Range: 0.00-0.30 T BILI 0.30 mg/dL (Normal) Range: 0.20-1.00 ALT 26 U/L (Normal) Range: 13-56 ALK P 59 U/L (Normal) Range: 45-117 AST 18 U/L (Normal) Range: 15-37 GLOB 3.1 g/dL (Normal) Range: 2.2-4.2 ALB 3.5 g/dL (Normal) Range: 3.2-5.0 T PROT 6.6 g/dL (Normal) Range: 6.4-8.2 88-Bom-03350:06 Prothrombin Time w/INR Comments: SARAI ADALI ORDERED: TSH, B12, FOLSDR TOVA ORDERED: PT, LIPID, [facility] [address] [place], [address] INR 3.0 (Normal) PROTIME 31.3 s (Abnormal) Range: 11.7-14.9 14-Xfb-38499:06 Thyroid Stim Hormone (TSH) Comments: SARAI BRO ORDERED: TSH, B12, FOLSDR TOVA ORDERED: PT, LIPID, LIVERIs Patient Taking Vitamins or Folic Acid Supplements? [facility] [address] [place], [address] TSH 2.70 {uIU/mL} (Normal) Range: 0.358-3.74 46-Lha-56200:06 Vitamin B12 382 pg/mL (Normal) Comments: SARAI BRO ORDERED: TSH, B12, FOLSDR TOVA ORDERED: PT, LIPID, [facility] [address] [place], [address] Range: 211-911 37-Kcj-359745:49 Comprehensive Metabolic Profil Comments: [facility] [address] [place], [address] GAP 5 (Normal) Range: 5-15 CO2 30.0 [...] Comments: Please note revised GLUCOSE reference range rfvauxyyt64/02/2018. 78-Ock-350879:49 Lipid Profile Comments: [facility] [address] [facility] [address] [place], [place], [address] VLDL 25 mg/dL (Normal) Range: 5-40 LDL [...] 200-240 mg/dL Borderline >240 mg/dL High Risk 03-Mjh-925420:49 Prothrombin Time w/INR Comments: Comments: STANDING ORDERComments: STANDING [facility] [address] [facility] [address] [place], [place], [id number] INR 2.8 (Normal) PROTIME 29.6 s (Abnormal) Range: 11.7-14.9 5-Xxd-600917:18 Prothrombin Time w/INR Comments: [facility] [address] [place], [place], [id number] INR 2.7 (Normal) PROTIME 28.4 s (Abnormal) Range: 11.7-14.9 27-Vjy-881454:14 Prothrombin Time w/INR Comments: [facility] [address] [place], [address] INR 2.2 (Normal) PROTIME 24.6 s (Abnormal) Range: 11.7-14.9 45-Ixq-569418:18 Prothrombin Time w/INR Comments: [facility] [address] [place], [address] INR 2.2 (Normal) PROTIME 24.3 s (Abnormal) Range: 11.7-14.9 45-Lma-491469:26 Prothrombin Time w/INR Comments: [facility] [address] [place], [address] INR 2.2 (Normal) PROTIME 24.6 s (Abnormal) Range: 11.7-14.9 45-Pvj-307152:13 Prothrombin Time w/INR Comments: [facility] Q[address] [place], [id number] INR 2.3 (Normal) PROTIME 25.7 s (Abnormal) Range: 11.7-14.9 4-Lzw-393070:58 Prothrombin Time w/INR Comments: [facility] S[address] [place], [address] INR 2.0 (Normal) PROTIME 22.8 s (Abnormal) Range: 11.7-14.9 :45 CBC W/Diff, Automated Comments: [facility] [address] [place], [address] ; another Absolute Lymph 2.13 {X10_3/ul} (Normal) [...] 4.2-5.4 WBC 5.6 K/mm3 (Normal) Range: 4.4-11.0 39-Jtf-00374:45 Comprehensive Metabolic Profil Comments: [facility] Slralscvqt6934 [address] [place], [place], [address] ; Dr Paz GAP 8 (Normal) Range: [...] Comments: Please note revised GLUCOSE reference range zqlmynmoe91/02/2018. 77-Eih-92672:45 Lipid Profile Comments: [facility] [address] [place], [place], [address] VLDL 17 mg/dL (Normal) Range: 5-40 LDL [...] 200-240 mg/dL Borderline >240 mg/dL High Risk 48-Esf-91650:45 Microalb:Creat Ratio,Random UR Comments: [facility] [address] [place], [address] MALB:CREAT 8.4 {mg/g_CRE} (Normal) MICROALBUMIN,UR 13.5 mg/L (Normal) UR CREAT 160.00 mg/dL (Normal) 74-Wwu-26843:45 Prothrombin Time w/INR Comments: [facility] [address] [place], [address] INR 1.9 (Normal) PROTIME 21.5 s (Abnormal) Range: 11.7-14.9 Comments: ADDENDA: cardio :45 Thyroid Stim Hormone (TSH) Comments: [facility] [address] [place], [address] TSH 2.92 {uIU/mL} (Normal) Range: 0.358-3.74 08-Hih-50030:45 Urinalysis, Routine (Dipstick) Comments: How [facility] [address]mszq[address] [place], [address] ; other doc LEUK ESTERASE 100 /ul (Abnormal) OCCULT BLOOD-UR 50 /ul (Abnormal) NITRITE UR Negative (Normal) UROBILI Normal mg/dL (Normal) PROT DIPSTX Negative mg/dL (Normal) pH UR 6.0 (Normal) Range: 5.0 - 8.0 SP.GR. DIPSTX 1.020 (Normal) Range: 1.002-1.030 KETONE UR Negative mg/dL (Normal) BILIRUBIN URINE Negative mg/dL (Normal) GLUCOSE, UR Normal mg/dL (Normal) CLARITY Cloudy (Normal) COLOR Yellow (Normal) 77-Ich-013854:31 Prothrombin Time w/INR Comments: [address], [address] INR 2.1 (Normal) PROTIME 23.3 s (Abnormal) Range: 11.7-14.9 4-Cef-968150:20 Prothrombin Time w/INR Comments: [address], [address] INR 2.2 (Normal) Comments: ADDENDA: managed by cardio PROTIME 24.1 s (Abnormal) Range: 11.7-14.9 26-Ulf-336015:40 Prothrombin Time w/INR Comments: [place] [address] [place], [address] ; managed by cardio INR 2.0 (Normal) PROTIME 22.9 s (Abnormal) Range: 11.7-14.9 04-Iyb-344930:13 Prothrombin Time w/INR Comments: [address] [place], [place], [address] INR 1.6 (Normal) PROTIME 19.5 s (Abnormal) Range: 11.7-14.9 48-Jwh-859946:28 Prothrombin Time w/INR Comments: [facility] [address] [place], [place], [address] ; cardio INR 1.8 (Normal) PROTIME 19.8 s (Abnormal) Range: 11.7-14.9 7-Kfu-588795:53 Prothrombin Time w/INR Comments: [facility] [address] [place], [place], [address] INR 2.4 (Normal) PROTIME 24.8 s (Abnormal) Range: 11.7-14.9 7-Rsj-761956:26 Prothrombin Time w/INR Comments: [place] [address] [place], [place], [address] INR 1.9 (Normal) PROTIME 21.2 s (Abnormal) Range: 11.7-14.9 27-Ggr-256304:42 Rapid Flu (62562 x 2) Influenza A Ag POS B (Normal) 84-Xsu-030049:04 Prothrombin Time w/INR Comments: [facility] [address] [place], [place], [address] ; cardio manages INR 1.4 (Normal) PROTIME 16.5 s (Abnormal) Range: 11.7-14.9 86-Unw-903719:28 Prothrombin Time w/INR Comments: [facility] [address] [place], [place], [address] INR 1.2 (Normal) PROTIME 14.3 s (Normal) Range: 11.7-14.9 3-Oqo-416013:11 Prothrombin Time w/INR Comments: [facility] [address] [place], [place], [address] INR 2.0 (Normal) PROTIME 21.6 s (Abnormal) Range: 11.7-14.9 92-Ivw-655822:18 CBC W/Diff, Automated Comments: [facility] [address] [place], [address] Absolute Lymph 2.38 {X10_3/ul} (Normal) [...] 4.2-5.4 WBC 7.7 K/mm3 (Normal) Range: 4.4-11.0 48-Vje-781188:18 Prothrombin Time w/INR Comments: [facility] [address] [place], [place], [address] INR 2.1 (Normal) PROTIME 22.8 s (Abnormal) Range: 11.7-14.9 22-Vab-242175:52 POTASSIUM SERUM (59530) Comments: STAT; Order Date: 07/23/17Order Info: [id number] - KComments: [facility] [address]ubvpodx[address] [place], [address] K 4.4 mmol/L (Normal) Range: 3.5-5.1 :56 Microscopic Examination Comments: PATIENT NOT FASTINGPERFORMED BY: [facility]6370 [facility] [id number] Bacteria Few (Normal) Mucus Threads Present (Normal) Epithelial Cells (non renal) 0-10 {/hpf} (Normal) Range: 0 - 10 RBC 3-10 {/hpf} (Abnormal) Range: 0 - 2 WBC 0-5 {/hpf} (Normal) Range: 0 - 5 :56 VITAMIN B-12 (CYANOCOBALAMIN) Comments: PATIENT NOT FASTINGPERFORMED BY: [facility]6370 [facility] [id number] (48429) Vitamin B12 451 pg/mL (Normal) Range: 232-1245 Comments: Please note reference interval change :56 TSH (66246) Comments: PATIENT NOT FASTINGPERFORMED BY: [facility]6370 [facility] [id number] TSH 2.910 {uIU/mL} (Normal) Range: 0.450-4.500 :56 URINALYSIS, W/ MICRO (44959) Comments: PATIENT NOT FASTINGPERFORMED BY: [facility]Asc[facility]6370 [facility] [id number] Microscopic Examination See below: (Normal) Comments: Microscopic was indicated and was performed. Nitrite, Urine Negative (Normal) Urobilinogen,Semi-Qn 0.2 mg/dL (Normal) Range: 0.2-1.0 Bilirubin Negative (Normal) Occult Blood 1+ (Abnormal) Ketones Negative (Normal) Glucose Negative (Normal) Protein Negative (Normal) WBC Esterase Trace (Abnormal) Appearance Clear (Normal) Urine-Color Yellow (Normal) pH 7.0 (Normal) Range: 5.0-7.5 Specific [place] 1.017 (Normal) Range: 1.005-1.030 :56 MICROALBUMIN: CREATININE RATIO Comments: PATIENT NOT FASTINGPERFORMED BY: [facility] [id number] ([address]) AND (85866) Microalb/Creat Ratio 7.4 {mg/g_creat} (Normal) Range: 0.0-30.0 Microalbumin, Urine 5.0 ug/mL (Normal) Creatinine, Urine 68.0 mg/dL (Normal) :56 METABOLIC PANEL, COMPREHENSIVE Comments: PATIENT NOT FASTINGPERFORMED BY: [facility] [id number] (06752) ALT (SGPT) 18 [iU]/L (Normal) Range: 0-32 [...] Glucose, Serum 87 mg/dL (Normal) Range: 65-99 17-Ulp-110449:56 CBC W/AUTO DIFF WBC (90807) Comments: PATIENT NOT FASTINGPERFORMED BY: [facility] Kboupk4718 [facility] [id number] Immature Grans (Abs) 0.0 {x10E3/uL} (Normal) Range: [...] 3.77-5.28 WBC 11.3 {x10E3/uL} (Abnormal) Range: 3.4-10.8 2-Naq-725464:38 Prothrombin Time w/INR Comments: [facility] [address] [place], [place], [address] INR 2.0 (Normal) PROTIME 22.0 s (Abnormal) Range: 11.7-14.9 96-Tlb-848104:21 Prothrombin Time w/INR Comments: [facility] [address] [place], [place], [address] INR 2.5 (Normal) PROTIME 26.0 s (Abnormal) Range: 11.7-14.9 :12 Lipid Profile Comments: Order Date: 12/04/16Order Info: [id number] - *Hepatic Function PanelOrder Info: [id number] - *Lipid Profile CC PCPComments: 12 hours fasting, may have water.[facility] [address] [place], [place], [address] VLDL 21 mg/dL (Normal) Range: 5-40 LDL [...] Info: 0788-1 - *Hepatic Function PanelOrder Info: [id number] - *Lipid Profile CC PCPComments: 12 hours fasting, may have water.[facility] [address] [place], [place], [address] D BILI 0.09 mg/dL (Normal) Range: 0.00-0.30 T BILI 0.50 mg/dL (Normal) Range: 0.20-1.00 ALT 21 U/L (Normal) Range: 12-78 ALK P 78 U/L (Normal) Range: 45-117 AST 16 U/L (Normal) Range: 15-37 GLOB 3.1 g/dL (Normal) Range: 2.2-4.2 ALB 3.5 g/dL (Normal) Range: 3.4-5.0 Comments: Please note revised Albumin AND Globulin reference rangeeffective 2017. T PROT 6.6 g/dL (Normal) Range: 6.4-8.2 :39 Prothrombin Time w/INR Comments: [facility] [address] [place], [place], [address] INR 2.4 (Normal) PROTIME 24.9 s (Abnormal) Range: 11.7-14.9 :43 Prothrombin Time w/INR Comments: [facility] [address] [place], [place], [address] INR 2.2 (Normal) PROTIME 23.9 s (Abnormal) Range: 11.7-14.9 :22 CBC W/Diff, Automated Comments: [facility] [address] [place], [place], [address] ; OV 9/5 Absolute Lymph 2.11 {X10_3/ul} [...] 4.2-5.4 WBC 5.7 K/mm3 (Normal) Range: 4.4-11.0 :22 Comprehensive Metabolic Profil Comments: [facility] [address] [place], [place], [address] GAP 7 (Normal) Range: 5-15 CO2 33.0 [...] 70-110 :22 Thyroid Stim Hormone (TSH) Comments: [facility] [address] [place], [address] TSH 3.52 {uIU/mL} (Normal) Range: 0.358-3.74 :37 Prothrombin Time w/INR Comments: [facility] [address] [place], [phone](276) INR 2.1 (Normal) PROTIME 22.4 s (Abnormal) Range: 11.7-14.9 :12 Prothrombin Time w/INR Comments: PT ORDER IS AND T4 IS [facility] Hmuptcclga[address] [place], [phone](003) INR 2.1 (Normal) PROTIME 23.1 s (Abnormal) Range: 11.7-14.9 :11 T4 Total, Thyroxin Comments: Order Date: 02/19/17Order Info: [id number] - *T4 (Total)Comments: Reason:Order Info: [id number] - *[facility] [address] [place], [address] T4 THYROXIN 7.2 ug/dL (Normal) Range: 4.8-13.9 :11 Thyroid Stim Hormone (TSH) Comments: Order Date: 02/19/17Order Info: [id number] - *T4 (Total)Comments: Reason:Order Info: 3016-3 - *[facility] Rxixnfxphq[address] [place], [address](168 TSH 1.56 {uIU/mL} (Normal) Range: 0.358-3.74 :37 Prothrombin Time w/INR Comments: [facility] Rqgrntzttk7874 [place], [address] INR 1.9 (Normal) PROTIME 21.4 s (Abnormal) Range: 11.7-14.9 :50 Prothrombin Time w/INR Comments: [facility] Kwvqabzuly33[address] [place], [address] INR 2.0 (Normal) PROTIME 21.6 s (Abnormal) Range: 11.7-14.9 01-Njj-955151:37 Prothrombin Time w/INR Comments: [facility] [address] [place], [place], [address] INR 2.5 (Normal) PROTIME 25.6 s (Abnormal) Range: 11.7-14.9 38-Wrh-301223:18 Prothrombin Time w/INR Comments: [facility] [address] [place], [place], [address] INR 2.1 (Normal) PROTIME 22.5 s (Abnormal) Range: 11.7-14.9 86-Lss-574077:17 Lipid Profile Comments: Order Date: 06/02/16Order Info: [id number]- [id number] - *Hepatic Function PanelDR.TOVA PTMICHELLE LIPID LIVEROrder Date: 06/02/16Order Info: [id number] - *Lipid Profile CC PCPComments: 12 hours fasting, may have [facility]ala[facility] [address]julunj[address] [place], [place], [address] VLDL 31 mg/dL (Normal) Range: 5-40 LDL [...] 200-240 mg/dL Borderline >240 mg/dL High Risk 87-Ngk-737740:17 Liver Profile Comments: Order Date: 06/02/16Order Info: [id number]- 1 - *Hepatic Function PanelDR.TOVA PTMICHELLE LIPID LIVEROrder Date: 06/02/16Order Info: [id number] - *Lipid Profile CC PCPComments: 12 hours fasting, may have donnared hughesStaceySouthview Medical Center [address]cyuq[address] [place], [place], [address] D BILI 0.09 mg/dL (Normal) Range: 0.00-0.30 T BILI 0.50 mg/dL (Normal) Range: 0.20-1.00 ALT 28 U/L (Normal) Range: 12-78 ALK P 93 U/L (Normal) Range: 45-117 AST 21 U/L (Normal) Range: 15-37 GLOB 3.4 g/dL (Normal) Range: 2.3-3.5 ALB 4.0 g/dL (Normal) Range: 3.4-5.0 T PROT 7.4 g/dL (Normal) Range: 6.4-8.2 9-Ucc-749843:32 Prothrombin Time w/INR Comments: [facility] [address]fsu[address] [place], [address] ; [facility] manages INR 1.8 (Normal) PROTIME 20.2 s (Abnormal) Range: 11.7-14.9 82-Brv-867349:09 Prothrombin Time w/INR Comments: [facility] [address]zsaoszw[address] [place], [address] ; [facility] INR 2.1 (Normal) PROTIME 23.1 s (Abnormal) Range: 11.7-14.9 40-Azr-297575:10 Metabolic Panel, Comprehensive Comments: today; PATIENT NOT FASTINGPERFORMED BY: [facility] Tousws8805 [facility] [id number] ([id number]) ALT (SGPT) 16 [iU]/L (Normal) Range: 0-32 [...] Glucose, Serum 89 mg/dL (Normal) Range: 65-99 10-Osk-842782:26 Prothrombin Time w/INR Comments: [facility] Osbwvckdsc0761 [facility]. [place], [place], [address] INR 2.2 (Normal) PROTIME 23.7 s (Abnormal) Range: 11.7-14.9 08-Jhn-553234:52 CBC-Complete Blood Cnt No Diff Comments: [facility] Yrhmaapsym3153 [facility]. [place], [place], [address] ; sibilia MPV 10.8 fL (Normal) Range: [...] Range: 4.4-11.0 :58 Prothrombin Time w/INR Comments: [facility] [address] [place] [address], [address] INR 2.0 (Normal) PROTIME 22.4 s (Abnormal) Range: 11.7-14.9 :49 Prothrombin Time w/INR Comments: [facility] [address] [place] [address], [address] INR 2.0 (Normal) PROTIME 22.3 s (Abnormal) Range: 11.7-14.9 :54 CBC WITH MANUAL DIFF (90451) Comments: PATIENT NOT FASTINGPERFORMED BY: [facility] Tbcora8919 [facility] [id number] Immature Grans (Abs) 0.0 {x10E3/uL} (Normal) Range: [...] 3.77-5.28 WBC 6.2 {x10E3/uL} (Normal) Range: 3.4-10.8 07-Lck-388202:54 Metabolic Panel, Comprehensive Comments: PATIENT NOT FASTINGPERFORMED BY: [facility]CoMountainside HospitalEpsecv3115 [facility] [id number] (57283) ALT (SGPT) 18 [iU]/L (Normal) Range: 0-32 [...] Glucose, Serum 86 mg/dL (Normal) Range: 65-99 02-Dlx-920800:54 TSH (90432) Comments: PATIENT NOT FASTINGPERFORMED BY: [facility] Udjubf7821 [facility] [id number] TSH 2.890 {uIU/mL} (Normal) Range: 0.450-4.500 94-Ajk-659412:23 Prothrombin Time w/INR Comments: [facility] Iqagsqfdvu7605 [facility] [address]. [place], [place], [address] ; managed by cardio INR 2.6 (Normal) PROTIME 27.4 s (Abnormal) Range: 11.7-14.9 :54 Prothrombin Time w/INR Comments: [facility] [address]qexuy[address] [place], [address] ; another doc INR 2.0 (Normal) PROTIME 22.3 s (Abnormal) Range: 11.7-14.9 :53 Lipid Profile Comments: Order Date: 05/22/16OV Order #: [id number] [facility] Hospital Pwzbkwojlq39[address] [place], [place], [address] VLDL 21 mg/dL (Normal) Range: 5-40 LDL [...] Profile Comments: Order Date: 05/22/16OV Order #: [id number] [facility] Hospital F[address]oucfbfy2[address] [place], [place], [address] D BILI < 0.05 mg/dL (Normal) Range: 0.00-0.30 T BILI 0.30 mg/dL (Normal) Range: 0.20-1.00 ALT 24 U/L (Normal) Range: 12-78 ALK P 82 U/L (Normal) Range: 50-136 AST 19 U/L (Normal) Range: 15-37 Comments: Slight Hemolysis, Result may be falsely increased. GLOB 3.3 g/dL (Normal) Range: 2.3-3.5 ALB 3.6 g/dL (Normal) Range: 3.4-5.0 T PROT 6.9 g/dL (Normal) Range: 6.4-8.2 12-Eac-248197:09 Prothrombin Time w/INR Comments: [facility] [address] [place], [place], [address] INR 2.5 (Normal) PROTIME 26.3 s (Abnormal) Range: 11.7-14.9 :59 Prothrombin Time w/INR Comments: [facility] [address]qu[address] [place], [place], [address] ; managed by cardio INR 2.9 (Normal) PROTIME 29.3 s (Abnormal) Range: 11.7-14.9 :05 Prothrombin Time w/INR Comments: [facility] [address] [place], [address] INR 2.0 (Normal) PROTIME 22.3 s (Abnormal) Range: 11.7-14.9 36-Yxa-076518:11 Prothrombin Time w/INR Comments: [facility] [address] [place], [address] INR 2.7 (Normal) Comments: ADDENDA: managed by cardio PROTIME 27.7 s (Abnormal) Range: 11.7-14.9 :14 Prothrombin Time w/INR Comments: [facility] [address] [place], [address] ; managed by [employer] INR 2.7 (Normal) PROTIME 28.1 s (Abnormal) Range: 11.7-14.9 :45 Prothrombin Time w/INR Comments: [facility] [address] [place], [place], [address] ; managed by cardio INR 3.1 (Normal) PROTIME 31.3 s (Abnormal) Range: 11.7-14.9 :27 Prothrombin Time w/INR Comments: [facility] [address] [place], [place], [address] ; managed by cardio INR 3.1 (Normal) PROTIME 31.1 s (Abnormal) Range: 11.7-14.9 :22 Prothrombin Time w/INR Comments: [facility] [address] [place], [place], [address] INR 2.6 (Normal) PROTIME 27.4 s (Abnormal) Range: 11.7-14.9 :08 Prothrombin Time w/INR Comments: [facility] Mr[address]xf[address] [place], [address] ; managed with Dr. paz INR 4.1 (Abnormal) Comments: CRITICAL VALUE REPEATED AND VERIFIED. CALLED TO ADELINA THOMASGU[facility]01/16/16 1251 Elza Hinojosa.RESULTS READ BACK BY SAME . PROTIME 38.2 s (Abnormal) Range: 11.7-14.9 86-Qeu-835721:11 Microscopic Examination Comments: PATIENT WAS FASTINGPERFORMED BY: [facility]6370 [facility] [id number] Bacteria None seen (Normal) Mucus Threads Present (Normal) Epithelial Cells (non renal) 0-10 {/hpf} (Normal) Range: 0 - 10 RBC 11-30 {/hpf} (Abnormal) Range: 0 - 2 WBC 0-5 {/hpf} (Normal) Range: 0 - 5 53-Fjm-662189:11 MICROALBUMIN: CREATININE RATIO Comments: PATIENT WAS FASTINGPERFORMED BY: [employer] [facility] BrewingCape Fear/[facility] Health [id number] ([id number]) AND (42885) Microalb/Creat Ratio 11.4 {mg/g_creat} (Normal) Range: 0.0-30.0 Microalbumin, Urine 12.1 ug/mL (Normal) Comments: Please note reference interval change Creatinine, Urine 106.3 mg/dL (Normal) Comments: Please note reference interval change 73-Mob-930764:11 URINALYSIS (28970) Comments: PATIENT WAS FASTINGPERFORMED BY: [employer] [facility] [id number] Microscopic Examination See below: (Normal) Comments: Microscopic was indicated and was performed. Nitrite, Urine Negative (Normal) Urobilinogen,Semi-Qn 0.2 mg/dL (Normal) Range: 0.2-1.0 Bilirubin Negative (Normal) Occult Blood 2+ (Abnormal) Ketones Negative (Normal) Glucose Negative (Normal) Protein Negative (Normal) WBC Esterase Negative (Normal) Appearance Clear (Normal) Urine-Color Yellow (Normal) pH 7.0 (Normal) Range: 5.0-7.5 Specific [place] 1.018 (Normal) Range: 1.005-1.030 32-Dcl-598045:11 Metabolic Panel, Comments: PATIENT WAS FASTINGPERFORMED BY: [employer] Cqrncf9154 [facility] [id number] Information: [id number], [id number] Comprehensive (76811) ALT (SGPT) 14 [iU]/L (Normal) Range: 0-32 [...] Glucose, Serum 91 mg/dL (Normal) Range: 65-99 79-Uww-952073:11 TSH (20378) Comments: PATIENT WAS FASTINGPERFORMED BY: [facility] Degmcy4166 [facility] [id number] TSH 2.260 {uIU/mL} (Normal) Range: 0.450-4.500 :17 Prothrombin Time w/INR Comments: [facility] Gzliyshhiy2814 [facility] [place], [place], [address] INR 2.8 (Normal) PROTIME 28.4 s (Abnormal) Range: 11.7-14.9 :40 Lipid Profile Comments: [facility] Gqnqsokclr3618 [facility] [place], [place], [address] VLDL 22 mg/dL (Normal) Range: 5-40 LDL [...] mg/dL High Risk :40 Liver Profile Comments: [facility] [address]gcg[address] [place], [address] D BILI 0.10 mg/dL (Normal) Range: 0.00-0.30 T BILI 0.60 mg/dL (Normal) Range: 0.20-1.00 ALT 26 U/L (Normal) Range: 12-78 ALK P 86 U/L (Normal) Range: 50-136 AST 20 U/L (Normal) Range: 15-37 GLOB 3.4 g/dL (Normal) Range: 2.3-3.5 ALB 3.9 g/dL (Normal) Range: 3.4-5.0 T PROT 7.3 g/dL (Normal) Range: 6.4-8.2 :26 Prothrombin Time w/INR Comments: [facility] [address]ql[address] [place], [address] INR 2.6 (Normal) Comments: ADDENDA: handled by cardio PROTIME 27.3 s (Abnormal) Range: 11.7-14.9 :40 Prothrombin Time w/INR Comments: [facility] [address] [place], [place], [address] INR 2.4 (Normal) PROTIME 26.4 s (Abnormal) Range: 11.7-14.9 :03 Prothrombin Time w/INR Comments: [facility] [address] [place], [place], [address] ; per pop up in EMR cardio manages INR INR 2.2 (Normal) PROTIME 24.5 s (Abnormal) Range: 11.7-14.9 69-Oaa-804796:51 Prothrombin Time w/INR Comments: [facility] [address] [place], [address] INR 1.6 (Normal) PROTIME 19.0 s (Abnormal) Range: 11.7-14.9 Comments: ADDENDA: managed by cardio 5-Eib-887917:33 Prothrombin Time w/INR Comments: [facility] [address] [place], [address] ; handled by cardio INR 2.1 (Normal) PROTIME 24.0 s (Abnormal) Range: 11.7-14.9 44-Reu-696785:02 Prothrombin Time w/INR Comments: [facility] [address] [place], [address] INR 2.2 (Normal) PROTIME 24.1 s (Abnormal) Range: 11.7-14.9 43-Qvr-912930:37 Prothrombin Time w/INR Comments: [place] [address] [place], [address] INR 2.5 (Normal) PROTIME 26.7 s (Abnormal) Range: 11.7-14.9 :44 Prothrombin Time w/INR Comments: [place] [address] [place], [address] INR 2.2 (Normal) PROTIME 24.6 s (Abnormal) Range: 11.7-14.9 [id number]:15 Prothrombin Time w/INR Comments: [facility] [address] [place], [address] INR 1.6 (Normal) PROTIME 19.4 s (Abnormal) Range: 11.7-14.9 [id number] Prothrombin Time w/INR Comments: [facility] [id number] [place], [address] INR 1.2 (Normal) PROTIME 15.3 s (Abnormal) Range: 11.7-14.9 :02 Prothrombin Time w/INR Comments: [facility] [address] [place], [place], [id number] INR 2.7 (Normal) PROTIME 29.0 s (Abnormal) Range: 11.7-14.9 :47 Lipid Profile Comments: [facility] [address] [place], [place], [id number] VLDL 20 mg/dL (Normal) Range: 5-40 LDL [...] mg/dL High Risk :47 Liver Profile Comments: [facility] [id number] [place], [place], [id number] D BILI 0.09 mg/dL (Normal) Range: 0.00-0.30 T BILI 0.40 mg/dL (Normal) Range: 0.20-1.00 ALT 26 U/L (Normal) Range: 12-78 ALK P 86 U/L (Normal) Range: 50-136 AST 24 U/L (Normal) Range: 15-37 GLOB 3.3 g/dL (Normal) Range: 2.3-3.5 ALB 4.0 g/dL (Normal) Range: 3.4-5.0 T PROT 7.3 g/dL (Normal) Range: 6.4-8.2 [id number] CBC, Platelets & Auto Diff Comments: PATIENT NOT FASTINGPERFORMED BY: [facility] [id number] [place] [id number] Information: [id number] ([id number]) Immature Grans (Abs) 0.0 {x10E3/uL} (Normal) Range: [...] 3.77-5.28 WBC 6.2 {x10E3/uL} (Normal) Range: 3.4-10.8 1-Rau-507712:11 CALCIFEDIOL ([id number]) Comments: PATIENT NOT FASTINGPERFORMED BY: [facility] [id number] Vitamin D, 25-Hydroxy 38.9 ng/mL (Normal) Range: 30.0-100.0 Comments: Vitamin D deficiency has been defined by the [facility] and an Endocrine Society practice guideline as alevel of serum 25-OH vitamin D less than 20 ng/mL (1,2).The Endocrine Society went on to further define vitamin Dinsufficiency as a level between 21 and 29 ng/mL (2).1. IOM ([facility]). 2010. Dietary reference intakes for calcium and D. [place]: The National Academies Press.2. Roberto MF, Brody OCHOA, Maribell CADENA, et al. Evaluation, treatment, and prevention of vitamin D deficiency: an Endocrine Society clinical practice guideline. JCEM. 2010; 96(7):1911-30. 4-Ize-426900:11 VITAMIN B12 AND FOLATES Comments: PATIENT NOT FASTINGPERFORMED BY: WipitMountainside HospitalFdzmmo1439 [facility] [id number] (96876) Folate (Folic Acid), Serum 10.4 ng/mL (Normal) Comments: A serum folate concentration of less than 3.1 ng/mL isconsidered to represent clinical deficiency. Vitamin B12 1651 pg/mL (Abnormal) Range: 211-946 0-Vdu-245595:11 Metabolic Panel, Comprehensive Comments: PATIENT NOT FASTINGPERFORMED BY: [facility]goAsc[facility] Hospital6370 [facility] [id number] (85900) ALT (SGPT) 15 [iU]/L (Normal) Range: 0-32 [...] Range: 65-99 :53 Prothrombin Time w/INR Comments: [facility] [address] [place], [address] INR 1.9 (Normal) PROTIME 22.0 s (Abnormal) Range: 11.7-14.9 :40 Prothrombin Time w/INR Comments: Test performed at:[facility] [address] [place] [address] INR 1.3 (Normal) PROTIME 16.3 s (Abnormal) Range: 11.7-14.9 14-Jjc-741371:03 Prothrombin Time w/INR Comments: Test performed at:[facility] [address] [place] [address] INR 1.7 (Normal) PROTIME 20.4 s (Abnormal) Range: 11.7-14.9 5-Ljl-379472:26 Prothrombin Time w/INR Comments: Test performed at:[facility] [address] [place] [address] INR 1.2 (Normal) Comments: ADDENDA: managed by dr paz PROTIME 15.8 s (Abnormal) Range: 11.7-14.9 :28 Prothrombin Time w/INR Comments: Test performed at:[facility] [address] [place] [address] INR 1.2 (Normal) PROTIME 15.8 s (Abnormal) Range: 11.7-14.9 :54 Prothrombin Time w/INR Comments: Test performed at:[facility] Vkbdymzwzz[address]49 [facility] [place] [address] INR 2.5 (Normal) PROTIME 27.3 s (Abnormal) Range: 11.7-14.9 2-Tgq-604489:16 Prothrombin Time w/INR Comments: Test performed at:[facility] [address] [place] [address] INR 2.0 (Normal) PROTIME 23.2 s (Abnormal) Range: 11.7-14.9 42-Psc-742968:29 Prothrombin Time w/INR Comments: Test performed at:[facility] [address] [place] [address] INR 2.8 (Normal) PROTIME 29.3 s (Abnormal) Range: 11.7-14.9 35-Pln-257935:06 Prothrombin Time w/INR Comments: Test performed at:[facility] [address] [place] [address] ; Dr Bella manages INR 2.1 (Normal) PROTIME 24.0 s (Abnormal) Range: 11.7-14.9 :45 Prothrombin Time w/INR Comments: Test performed at:[facility] [address] [place] [address] ; ordered by another INR 1.3 (Normal) PROTIME 16.5 s (Abnormal) Range: 11.7-14.9 :00 Prothrombin Time w/INR Comments: Test performed at:[facility] [address] [place] [address] INR 0.9 (Normal) PROTIME 12.7 s (Normal) Range: 11.7-14.9 0-Wmz-535617:05 Vitamin B12 and Folate Comments: PATIENT NOT FASTINGPERFORMED BY: [employer]70 MurrayGustoCape Fear/Harnett Health [id number] Information: [id number] Folate (Folic Acid), 7.8 ng/mL (Normal) Comments: A serum folate concentration of less than 3.1 ng/mL isconsidered to represent clinical deficiency. Serum Vitamin B12 1883 pg/mL Range: 211-946 (Abnormal) : Vitamin D, 42.8 ng/mL (Normal) Comments: PATIENT NOT FASTINGPERFORMED BY: [employer]6370 [employer] vascular solutionCape Fear/Harnett Health [id number] 05 25-Hydroxy Range: 30.0-100.0 Comments: Vitamin D deficiency has been defined by the [facility] and an Endocrine Society practice guideline as alevel of serum 25-OH vitamin D less than 20 ng/mL (1,2).The Endocrine Society went on to further define vitamin Dinsufficiency as a level between 21 and 29 ng/mL (2).1. IOM ([facility]). 2010. Dietary reference intakes for calcium and D. [place]: The National Academies Press.2. Roberto MF, Brody OCHOA, Maribell CADENA, et al. Evaluation, treatment, and prevention of vitamin D deficiency: an Endocrine Society clinical practice guideline. JCEM. 2010; 96(7):1911-30. 10-Mdx-280440:04 CBC W/Diff, Automated Comments: Test performed at:[facility] [address] [place] [address] Absolute Lymph 2.41 {X10_3/ul} (Normal) Range: 0.83-4.51 [...] 4.2-5.4 WBC 6.5 K/mm3 (Normal) Range: 4.4-11.0 3-Xdj-177728:26 Basic Metabolic Profile (BMP) Comments: Test performed at:[facility] [address] [place] [address] GAP 4 (Abnormal) Range: 5-15 CO2 33.0 mmol/L (Abnormal) Range: 21.0-32.0 CL 103 mmol/L (Normal) Range: 98-107 K 4.8 mmol/L (Normal) Range: 3.5-5.1 NA 140 mmol/L (Normal) Range: 136-145 CA 8.8 mg/dL (Normal) Range: 8.5-10.1 BUN/CRE 25.8 {RATIO} (Abnormal) Range: 10-20 CREAT,SERUM 1.2 mg/dL (Abnormal) Range: 0.6-1.0 BUN 31 mg/dL (Abnormal) Range: 7-18 GLU 108 mg/dL (Normal) Range: 70-110 97-Pye-585928:45 Basic Metabolic Profile (BMP) Comments: Test performed at:[facility] [address] [place], [place] [address] GAP 4 (Abnormal) Range: 5-15 CO2 28.0 mmol/L (Normal) Range: 21.0-32.0 CL 106 mmol/L (Normal) Range: 98-107 K 4.3 mmol/L (Normal) Range: 3.5-5.1 NA 138 mmol/L (Normal) Range: 136-145 CA 8.8 mg/dL (Normal) Range: 8.5-10.1 BUN/CRE 26.0 {RATIO} (Abnormal) Range: 10-20 CREAT,SERUM 1.0 mg/dL (Normal) Range: 0.6-1.0 BUN 26 mg/dL (Abnormal) Range: 7-18 GLU 93 mg/dL (Normal) Range: 70-110 07-Ndj-223413:45 CBC W/Diff, Automated Comments: Test performed at:[facility] [address] [place], [place] [address], [place] [address] Absolute Lymph 2.60 {X10_3/ul} (Normal) [...] 4.2-5.4 WBC 6.5 K/mm3 (Normal) Range: 4.4-11.0 94-Jhq-775808:07 Lipid Profile Comments: Specimen slightly hemolyzed. Results may be affected.Test performed at:[facility] Vmflacamkt9509 [facility] [place] [address] VLDL 19 mg/dL (Normal) Range: [...] 200-240 mg/dL Borderline >240 mg/dL High Risk 05-Rxp-517723:07 Liver Profile Comments: Specimen slightly hemolyzed. Results may be affected.Test performed at:[facility] [address] [place], [place] [address] D BILI < 0.05 mg/dL (Normal) Range: [...] CHOL 226 mg/dL (Abnormal) Comments: <200 mg/dL Zsjbsskzw138-991 mg/dL Borderline>240 mg/dL High Risk :47 LIVER [...] :47 TSH 3.05 {uIU/mL} (Normal) Range: 0.358-3.74 21-Xei-999388:00 LORNA CULTURE-OTHER (65448) Comments: PATIENT NOT FASTINGPERFORMED BY: LabCoMountainside HospitalHayppj8398 [facility] [id number] Information: SRC:IVIS [id number] Result 1 RRF (Normal) Comments: Routine respiratory jesus Upper Respiratory Culture Final report (Normal) 56-Dme-07257:21 Rapid Strep Test, Office (45795) Rapid Strep Test, Office Negative (Normal) 40-Mim-40760:00 BILAT SCRN DIGITAL & CAD Radiology Report [...] Jones M.D.January 04, 2013 at 10:41:52 AM [phone] Signed GP/GP If you are the referring physician and would like to consult with theradiologist who provided this interpretation, please contact Ne Huang at [phone]. If this radiologist is unavailable, youwill be directed to another radiologist to assist. If you are a patient with a question regarding this report, pleasecontactyour referring physician directly. Professional Interpretation Provided By: [employer], Phone , These documents contain legally protected [...] 01/04/13 1044 Sign by: Henry Jones MD 4-Jqo-712957:19 Hepatic Function Panel Comments: PATIENT WAS FASTINGPERFORMED BY: [facility]Asc[facility]6370 [facility] [id number] Information: [id number] (7) ALT (SGPT) 23 [iU]/L (Normal) Range: 0-32 AST (SGOT) 21 [iU]/L (Normal) Range: 0-40 Alkaline Phosphatase, S 74 [iU]/L (Normal) Range: 25-165 Bilirubin, Direct 0.10 mg/dL Range: 0.00-0.40 (Normal) Albumin, Serum 4.3 g/dL (Normal) Range: 3.5-4.8 Bilirubin, Total 0.3 mg/dL (Normal) Range: 0.0-1.2 Protein, Total, Serum 6.7 g/dL (Normal) Range: 6.0-8.5 4-Uvu-515580 Written Authorization WAR (Normal) Comments: PATIENT WAS FASTINGPERFORMED BY: [employer] Cjmmws0434 [facility] [id number] :19 Comments: Written Authorization Received.Authorization received from DR BRO [id number] by Rachelle Porter :19 Metabolic Panel, Comprehensive Comments: PATIENT WAS FASTINGPERFORMED BY: Wipit Bieumk8390 [facility] [id number] (13401) ALT (SGPT) 22 [iU]/L (Normal) Range: 0-32 [...] Glucose, Serum 89 mg/dL (Normal) Range: 65-99 :19 CBC with manual diff Comments: PATIENT WAS FASTINGPERFORMED BY: WipitK[place] 6023070 [facility] [id number] Information: [id number] (27777) Immature Grans (Abs) 0.0 {x10E3/uL} (Normal) Range: [...] 3.77-5.28 WBC 4.6 {x10E3/uL} (Normal) Range: 4.0-10.5 5-Fmn-213819:19 Lipid Panel (34119) Comments: PATIENT WAS FASTINGPERFORMED BY: [facility] Pliptc2457 [facility] [id number] LDL/HDL Ratio 1.3 {ratio_units} (Normal) Range: 0.0-3.2 Cholesterol, Total 153 mg/dL (Normal) Range: 100-199 HDL Cholesterol 60 mg/dL (Normal) Comments: According to ATP-III Guidelines, HDL-C >59 mg/dL is considered anegative risk factor for CHD. LDL Cholesterol Calc 80 mg/dL (Normal) Range: 0-99 Triglycerides 65 mg/dL (Normal) Range: 0-149 VLDL Cholesterol Hector 13 mg/dL (Normal) Range: 5-40 2-Pfl-718646:19 TSH (44040) Comments: PATIENT WAS FASTINGPERFORMED BY: [employer] [facility] [id number] TSH 2.650 {uIU/mL} (Normal) Range: 0.450-4.500 49-Bzz-760135:14 Urinalysis, Office (43648) UA - BILIRUBIN Negative (Normal) UA - BLOOD Hemolyzed Small (Normal) UA - GLUCOSE Negative (Normal) UA - KETONES Negative mg/dL (Normal) UA - LEUKOCYTE ESTERASE Negative (Normal) UA - NITRITE Negative (Normal) UA - PH 7.0 (Normal) UA - PROTEIN Negative mg/dL (Normal) UA - SPECIFIC GRAVITY 1.015 (Normal) URINE UROBILINGN REYNA TIMED Normal mg/dL (Normal) 64-Yyw-227180:10 TSH (THYROID STIMULATING Comments: PATIENT WAS FASTINGPERFORMED BY: [employer] Rvhonk1696 [facility] [id number] HORMONE) (27956) TSH 2.500 {uIU/mL} (Normal) Range: 0.450-4.500 80-Tjp-646688:10 CALCIFEDIOL (15420) Comments: PATIENT WAS FASTINGPERFORMED BY: Band IndustriesMountainside HospitalGeeanq4033 [facility] [id number] Vitamin D, 25-Hydroxy 48.1 ng/mL (Normal) Range: 30.0-100.0 Comments: Vitamin D deficiency has been defined by the [facility] and an Endocrine Society practice guideline as alevel of serum 25-OH vitamin D less than 20 ng/mL (1,2).The Endocrine Society went on to further define vitamin Dinsufficiency as a level between 21 and 29 ng/mL (2).1. IOM ([facility]). 2010. Dietary reference intakes for calcium and D. [place]: The National Academies Press.2. Roberto MF, Brody [place], Maribell CADENA, et al. Evaluation, treatment, and prevention of vitamin D deficiency: an Endocrine Society clinical practice guideline. JCEM. 2010; 96(7):1911-30. 14-Khf-596271:10 Lipid Panel (42906) Comments: PATIENT WAS FASTINGPERFORMED BY: [employer] Ewjlvj6758 [facility] [id number] LDL/HDL Ratio 2.3 {ratio_units} (Normal) Range: 0.0-3.2 LDL Cholesterol Calc 117 mg/dL (Abnormal) Range: 0-99 VLDL Cholesterol Hector 16 mg/dL (Normal) Range: 5-40 HDL Cholesterol 52 mg/dL (Normal) Comments: According to ATP-III Guidelines, HDL-C >59 mg/dL is considered anegative risk factor for CHD. Triglycerides 78 mg/dL (Normal) Range: 0-149 Cholesterol, Total 185 mg/dL (Normal) Range: 100-199 04-Qre-999037:10 HEPATIC FUNCTION PANEL Comments: PATIENT WAS FASTINGPERFORMED BY: Wipit Onxniv0380 [facility] [id number] Information: [id number] (85470) ALT (SGPT) 21 [iU]/L (Normal) Range: 0-40 AST (SGOT) 20 [iU]/L (Normal) Range: 0-40 Alkaline Phosphatase, S 75 [iU]/L (Normal) Range: 25-165 Bilirubin, Direct 0.09 mg/dL (Normal) Range: 0.00-0.40 Albumin, Serum 4.0 g/dL (Normal) Range: 3.5-4.8 Bilirubin, Total 0.3 mg/dL (Normal) Range: 0.0-1.2 Protein, Total, Serum 6.5 g/dL (Normal) Range: 6.0-8.5 98-Mgm-065878:41 TSH (32420) Comments: PATIENT NOT FASTINGPERFORMED BY: [employer] Rdjwnx6822 [facility] [id number] Information: [id number] TSH 3.750 {uIU/mL} (Normal) Range: 0.450-4.500 :39 Prothrombin Time (PT) Comments: PERFORMED BY: AlgoregoAsc[facility] Hospital6370 [facility] [id number] Prothrombin Time 39.0 {sec} (Abnormal) Range: 8.7-11.5 INR 3.6 (Abnormal) Range: 0.8-1.2 Comments: Client Requested Flag Reference interval is for non- anticoagulated patients. . Suggested INR therapeutic ra nge for Vitamin K antagonist therapy: Standard Dose (moderate intensity therapeutic range): 2.0 - 3.0 Higher intensity therapeutic range 2.5 - 3.5 :26 PT (PROTHROMBIN TIME) Comments: PATIENT NOT FASTINGPERFORMED BY: [address] [id number] Information: [id number] CC:[id number] (55815) Prothrombin Time 54.3 {sec} (Abnormal) Range: 8.7-11.5 [...] (Activated Partial Comments: PATIENT NOT FASTINGPERFORMED BY: [facility]6370 [facility] [id number] Thromboplastin Time) (76068) aPTT 39 {sec} (Abnormal) Range: 24-33 Comments: This test has not been validated for monitoring unfractionated heparintherapy. aPTT-based therapeutic ranges for unfractionated heparintherapy have not been established. For general guidelines onHeparin monitoring, refer to the [facility] Directory of Services. :51 PT (Prothrobim Time) Comments: PATIENT NOT FASTINGPERFORMED BY: [facility]6370 [facility] [id number] Information: [id number] CC:[id number] (19185) Prothrombin Time 26.1 {sec} (Abnormal) Range: 8.7-11.5 INR 2.4 (Abnormal) Range: 0.8-1.2 Comments: Reference interval is for non-anticoagulated patients. . Suggested INR therapeutic range for Vitamin K anta gonist therapy: Standard Dose (moderate intensity therapeutic range): 2.0 - 3.0 Higher intensity therapeutic range 2.5 - 3.5 :43 HEPATIC FUNCTION PANEL Comments: PATIENT NOT FASTINGPERFORMED BY: [place] 9090970 [facility] [id number] Information: [id number] (05631) ALT (SGPT) 25 [iU]/L (Normal) Range: 0-40 AST (SGOT) 19 [iU]/L (Normal) Range: 0-40 Alkaline Phosphatase, S 73 [iU]/L (Normal) Range: 25-165 Albumin, Serum 4.4 g/dL (Normal) Range: 3.5-4.8 Bilirubin, Direct 0.09 mg/dL (Normal) Range: 0.00-0.40 Bilirubin, Total 0.3 mg/dL (Normal) Range: 0.0-1.2 Protein, Total, Serum 6.4 g/dL (Normal) Range: 6.0-8.5 :18 Lipid Panel (50075) Comments: PATIENT NOT FASTINGPERFORMED BY: [facility]6370 [facility] [id number] LDL/HDL Ratio 1.3 {ratio_units} (Normal) Range: 0.0-3.2 LDL Cholesterol Calc 91 mg/dL (Normal) Range: 0-99 VLDL Cholesterol Hector 21 mg/dL (Normal) Range: 5-40 Cholesterol, Total 181 mg/dL (Normal) Range: 100-199 HDL Cholesterol 69 mg/dL (Normal) Comments: According to ATP-III Guidelines, HDL-C >59 mg/dL is considered anegative risk factor for CHD. Triglycerides 105 mg/dL (Normal) Range: 0-149 8-Igj-095220:18 HEPATIC FUNCTION PANEL Comments: PATIENT NOT FASTINGPERFORMED BY: AlgoregoAsc[facility] Hospital6370 [facility] [id number] Information: [id number] (16183) ALT (SGPT) 60 [iU]/L (Abnormal) Range: 0-40 Alkaline Phosphatase, S 66 [iU]/L (Normal) Range: 25-165 AST (SGOT) 43 [iU]/L (Abnormal) Range: 0-40 Albumin, Serum 4.3 g/dL (Normal) Range: 3.5-4.8 Bilirubin, Direct 0.10 mg/dL (Normal) Range: 0.00-0.40 Bilirubin, Total 0.3 mg/dL (Normal) Range: 0.0-1.2 Protein, Total, Serum 6.7 g/dL (Normal) Range: 6.0-8.5 :18 CALCIFEDIOL (35263) Comments: PATIENT NOT FASTINGPERFORMED BY: WipitMountainside HospitalYwhxki3943 [facility] [id number] Vitamin D, 25-Hydroxy 57.3 ng/mL (Normal) Range: 32.0-100.0 Comments: Recent studies consider the lower limit of 32.0 ng/mL to be athreshold for optimal health.Baljit HOWELL. J Nutr. 2004;135(2):317-22. 1-Squ-804383:49 Urinalysis, Office (17214) UA - BILIRUBIN Negative (Normal) UA - BLOOD Hemolyzed Moderate (Normal) UA - GLUCOSE Negative (Normal) UA - KETONES Negative mg/dL (Normal) UA - LEUKOCYTE ESTERASE Negative (Normal) UA - NITRITE Negative (Normal) UA - PH 7.5 (Normal) UA - PROTEIN Negative mg/dL (Normal) UA - SPECIFIC GRAVITY 1.015 (Normal) URINE UROBILINGN REYNA TIMED Normal mg/dL (Normal) 30-Ekb-345153:38 Urinalysis, Office (30201) UA - BILIRUBIN Negative (Normal) UA - [...] Panel, Basic Comments: PATIENT NOT FASTINGPERFORMED BY: WipitMountainside HospitalHvyqht5118 [facility] [id number] Information: [id number] (61377) Calcium, Serum 9.6 mg/dL (Normal) Range: 8.6-10.2 [...] CULTURE-REYNA COL Comments: PATIENT NOT FASTINGPERFORMED BY: LabCoMountainside HospitalOzxlxu5905 [facility] [id number] Information: SRC:UR [id number] COUNT (71867) Result 1 NG36 (Normal) Comments: No growth in 36 - 48 hours. Urine Culture,Comprehensive Final report (Normal) :29 Urinalysis, Office (27607) UA - BILIRUBIN Negative (Normal) UA - BLOOD Non Hemolyzed Moderate (Normal) UA - GLUCOSE Negative (Normal) UA - KETONES Negative mg/dL (Normal) UA - LEUKOCYTE ESTERASE Trace (Normal) UA - NITRITE Negative (Normal) UA - PH 6.0 (Normal) UA - PROTEIN Negative mg/dL (Normal) UA - SPECIFIC GRAVITY 1.020 (Normal) URINE UROBILINGN REYNA TIMED Normal mg/dL (Normal) 21-Fwr-227322:44 Microscopic Examination Comments: PATIENT WAS FASTINGPERFORMED BY: [employer] Exubpn7580 Murray RoadDublin [place] [id number] Bacteria Few (Normal) Mucus Threads Present (Normal) Epithelial Cells (non renal) 0-10 {/hpf} (Normal) Range: 0 - 10 RBC 0-3 {/hpf} (Normal) Range: 0 - 3 WBC 0-5 {/hpf} (Normal) Range: 0 - 5 88-Eng-945332:44 CALCIFIDIOL (17791) VIT D 25 Comments: PATIENT WAS FASTINGPERFORMED BY: [employer] Bshjcx[address] Brittmore GroupDublin [place] [id number] Vitamin D, 25-Hydroxy 28.6 ng/mL (Abnormal) Range: 32.0-100.0 Comments: Recent studies consider the lower limit of 32.0 ng/mL to be athreshold for optimal health.Baljit HOWELL. J Nutr. 2004;135(2):317-22. 16-Ncl-814125:44 Folate (57377) Comments: PATIENT WAS FASTINGPERFORMED BY: [employer] Inedvc3996 [address] Sam[place]ob[place] [id number] Folate (Folic Acid), Serum 12.2 ng/mL (Normal) Comments: Indeterminate: 2.2 - 3.0 Deficient: <2.2 53-Mmp-285574:44 VITAMIN B-12 (CYANOCOBALAMIN) Comments: PATIENT WAS FASTINGPERFORMED BY: [employer] Industriesrp Aqdqjc6739 [address] Sam[address]ricob[address] [place] [id number] (01257) Vitamin B12 351 pg/mL (Normal) Range: 211-946 61-Rrg-527575:44 SED RATE ERYTHROCYTE (05030) Comments: PATIENT WAS FASTINGPERFORMED BY: [employer] LabaScentiasrp Muprrf0448 Murray RoadDublin [place] [id number] Sedimentation Rate-Westergren 2 mm/h (Normal) Range: 0-30 96-Ufn-666285:44 RHEUMATOID FACTOR-QUANT (87304) Comments: PATIENT WAS FASTINGPERFORMED BY: AlgoregoAsc[facility] Hospital6370 [facility] [id number] RA Latex Turbid. 10.5 {IU/mL} (Normal) Range: 0.0-13.9 :44 C-REACTIVE PROTEIN (47647) Comments: PATIENT WAS FASTINGPERFORMED BY: LabAsc[facility]6370 [facility] [id number] C-Reactive Protein, Quant 0.9 mg/L (Normal) Range: 0.0-4.9 :44 JOANNA (ANTINUCLEAR ANTIBODY) Comments: PATIENT WAS FASTINGPERFORMED BY: AlgoregoAscension [facility] Hospital6370 [facility] [id number] (66461) JOANNA Direct Negative (Normal) 44 LIPID PANEL (45882) Comments: PATIENT WAS FASTINGPERFORMED BY: AlgoregoAsc[facility] Hospital6370 [facility] [id number] LDL Cholesterol Calc 140 mg/dL (Abnormal) Range: 0-99 LDL/HDL Ratio 1.8 {ratio_units} (Normal) Range: 0.0-3.2 HDL Cholesterol 77 mg/dL (Normal) Comments: According to ATP-III Guidelines, HDL-C >59 mg/dL is considered anegative risk factor for CHD. VLDL Cholesterol Hector 19 mg/dL (Normal) Range: 5-40 Triglycerides 97 mg/dL (Normal) Range: 0-149 Cholesterol, Total 236 mg/dL (Abnormal) Range: 100-199 :44 TSH (58730) Comments: PATIENT WAS FASTINGPERFORMED BY: AlgoregoAscension [facility] Hospital6370 [facility] [id number] TSH 1.670 {uIU/mL} (Normal) Range: 0.450-4.500 :44 URINALYSIS, W/ MICRO (79468) Comments: PATIENT WAS FASTINGPERFORMED BY: [facility]6370 [facility] [id number] Microscopic Examination See below: (Normal) Bilirubin Negative (Normal) Ketones Negative (Normal) Nitrite, Urine Negative (Normal) Occult Blood 1+ (Abnormal) Urobilinogen,Semi-Qn 0.2 mg/dL (Normal) Range: 0.0-1.9 Glucose Negative (Normal) Protein Negative (Normal) Appearance Clear (Normal) pH 7.0 (Normal) Range: 5.0-7.5 Urine-Color Yellow (Normal) WBC Esterase Negative (Normal) Specific [place] 1.016 (Normal) Range: 1.005-1.030 :44 MICROALBUMIN: CREATININE RATIO Comments: PATIENT WAS FASTINGPERFORMED BY: [employer] Fypabb0703 [address] [facility] [id number] (34194) AND (55131) Microalb/Creat Ratio 2.8 {mg/g_creat} (Normal) Range: 0.0-30.0 Creatinine, Urine 61.0 mg/dL (Normal) Range: 15.0-278.0 Microalbumin, Urine 1.7 ug/mL (Normal) Range: 0.0-17.0 86-Gph-342748:44 METABOLIC PANEL, COMPREHENSIVE Comments: PATIENT WAS FASTINGPERFORMED BY: [facility] IndustriesMesilla Valley HospitalRgofri1043 [facility] [id number] (08056) ALT (SGPT) 16 [iU]/L (Normal) Range: 0-40 [...] Glucose, Serum 92 mg/dL (Normal) Range: 65-99 73-Sij-028663:44 CBC WITH MANUAL DIFF Comments: PATIENT WAS FASTINGPERFORMED BY: LabAsc[facility]6370 [facility] [id number] Information: [id number] (03871) Immature Grans (Abs) 0.0 {x10E3/uL} (Normal) Range: [...] 3.80-5.10 WBC 6.1 {x10E3/uL} (Normal) Range: 4.0-10.5 85-Lou-026857:11 BILAT SCRN DIGITAL & CAD Radiology Report See Note (Normal) Comments: Exam Number: [id number] MAMMOGRAPHY - BILATERAL SCREENING INDICATION:Routine annual screening [...] of attaching a ResultCode to this exam.ADDENDUM: [id number] HPBI/MDS Reported By: ELEANOR ERNANDEZ M.D. 3-Tdc-994812:01 TSH (03729) Comments: PATIENT NOT FASTINGPERFORMED BY: LabAsc[facility]6370 [facility] [id number] Information: [id number] TSH 0.474 {uIU/mL} (Normal) Range: 0.450-4.500 16-Apr-20108:21 Thin prep Pap (52414) Comments: of cuff, has had hysterectomy; Source.............VaginalLMP / Prev Treat...HystNo. of containers..01 CYTYC Thin Prep VialPATIENT NOT FASTINGPERFORMED BY: LabCo[address] Donald JESUS [id number] Information: [id number] Note: PAPSMR (Normal) Comments: The Pap smear [...] hysterectomy.V72.31 ; Routine gynecological exami Davion Mosley Dye House Helper (ASCP) 73-Kyv-894644:57 ABDOMEN/PELVIS W/WO CONTRAST Radiology Report See Note (Normal) Comments: Exam Number: [id number] CLINICAL:Hydronephrosis CT ABDOMEN AND PELVIS WITHOUT / [...] theright-sided hydronephrosis. Reported By: SAVANA AVELAR M.D. 9-Hrt-657551:44 Urinalysis, Office (23438) UA - LEUKOCYTE ESTERASE Negative (Normal) UA - NITRITE Negative (Normal) URINE UROBILINGN REYNA TIMED Normal mg/dL (Normal) UA - PROTEIN Negative mg/dL (Normal) UA - PH 6.5 (Normal) UA - BLOOD Hemolyzed Trace (Normal) UA - SPECIFIC GRAVITY 1.010 (Normal) UA - KETONES Negative mg/dL (Normal) UA - BILIRUBIN Negative (Normal) UA - GLUCOSE Negative (Normal) 64-Smx-452773:45 KIDNEY (HP) Radiology Report See Note (Normal) Comments: Exam Number: [id number] CLINICAL:The patient is a 69-year-old female who [...] no hydronephrosis Reported By: ELEANOR ERNANDEZ M.D. 21-Uic-335910:14 BMP BUN/CRE 17.8 {RATIO} (Normal) Range: 10-20 [...] (Normal) GLU 90 mg/dL (Normal) Range: 70-110 67-Mhu-411701:52 Iron and TIBC Comments: PATIENT NOT FASTINGPERFORMED BY: [employer] [facility] [id number] Iron Saturation 21 % (Normal) Range: 15-55 Iron, Serum 55 ug/dL (Normal) Range: 35-155 UIBC 202 ug/dL (Normal) Range: 150-375 Iron Bind.Cap.(TIBC) 257 ug/dL (Normal) Range: 250-450 43-Ohx-073633:52 Renal function Panel (88266) Comments: PATIENT NOT FASTINGPERFORMED BY: [employer]6[address] [employer] vascular solutionCape Fear/[facility] [id number] Albumin, Serum 3.7 g/dL (Normal) Range: 3.5-4.8 [...] Glucose, Serum 91 mg/dL (Normal) Range: 65-99 81-Hoz-334014:52 Ferritin (39477) Comments: PATIENT NOT FASTINGPERFORMED BY: CB [facility] Syfynw1126 [facility] [id number] Ferritin, Serum 338 ng/mL (Abnormal) Range: 13-150 54-Fps-034565:52 CBC with manual diff Comments: PATIENT NOT FASTINGPERFORMED BY: CB [facility] Focuwz0693 [facility] [id number] Information: [id number] (94933) Baso (Absolute) 0.0 {x10E3/uL} (Normal) Range: 0.0-0.2 [...] 3.80-5.10 WBC 7.9 {x10E3/uL} (Normal) Range: 4.0-10.5 18-Vus-295091:20 TSH (01887) Comments: PATIENT NOT FASTINGPERFORMED BY: [facility]CoMount[facility] HospitalLsxcnf2510 [facility] [id number] TSH 0.830 {uIU/mL} (Normal) Range: 0.450-4.500 89-Nck-705492:20 CBC with manual diff Comments: PATIENT NOT FASTINGPERFORMED BY: [address] [id number] Information: [id number] (20734) Hematology Comments: Note: (Normal) Comments: Verified by [...] 3.80-5.10 WBC 21.6 {x10E3/uL} (Abnormal) Range: 4.0-10.5 :58 Serum Protein Comments: PATIENT NOT FASTINGPERFORMED BY: [facility]Co[facility] HospitalZjmcqf2733 [facility] [id number] Information: ADD [id number] NO DRAW FEE Electrophoresis (SPEP) (38633) A/G Ratio 1.6 (Normal) Range: 0.7-2.0 Please note: SPRCS (Normal) Comments: Protein electrophoresis scan will follow via computer, mail, orcourier delivery. Yruvr-7-Dujpvxdr 0.2 g/dL (Normal) Range: 0.1-0.4 Ccgcj-5-Ditjelzb 0.6 g/dL (Normal) Range: 0.4-1.2 Beta Globulin 0.9 g/dL (Normal) Range: 0.6-1.3 Gamma Globulin 0.9 g/dL (Normal) Range: 0.5-1.6 Globulin, Total 2.6 g/dL (Normal) Range: 2.0-4.5 M-Slim Not Observed g/dL (Normal) Albumin 4.2 g/dL (Normal) Range: 3.2-5.6 Protein, Total, Serum 6.8 g/dL (Normal) Range: 6.0-8.5 59-Qgb-887916:58 VITAMIN B-12 (CYANOCOBALAMIN) Comments: PATIENT NOT FASTINGPERFORMED BY: [facility]Co[facility] HospitalNntrcu7713 [facility] [id number] (01440) Vitamin B12 300 pg/mL (Normal) Range: 211-911 44-Vnj-778088:58 SED RATE ERYTHROCYTE (89653) Comments: PATIENT NOT FASTINGPERFORMED BY: [facility]CoMount[facility] HospitalPpthiz5433 [facility] [id number] Sedimentation Rate-Westergren 2 mm/h (Normal) Range: 0-30 09-Mwj-558146:20 CBC With Differential/Platelet Comments: PATIENT WAS FASTINGPERFORMED BY: [facility]Co[facility] HospitalClggfe9991 [facility] [id number] Baso (Absolute) 0.1 {x10E3/uL} (Normal) Range: 0.0-0.2 [...] 3.80-5.10 WBC 5.4 {x10E3/uL} (Normal) Range: 4.0-10.5 38-Xro-341091:20 Comp. Metabolic Panel (14) Comments: PATIENT WAS FASTINGPERFORMED BY: [facility] Nzjrik8961 [facility] [id number] ALT (SGPT) 19 [iU]/L (Normal) Range: 0-40 [...] With LDL/HDL Comments: PATIENT WAS FASTINGPERFORMED BY: [facility]CoMount[facility] HospitalQlcztl5144 [facility] [id number] Ratio HDL Cholesterol 66 mg/dL (Normal) Comments: [...] 1.050 {uIU/mL} Comments: PATIENT WAS FASTINGPERFORMED BY: WipitMountainside HospitalGdysgy9445 [facility] [id number] :20 (Normal) Range: 0.450-4.500 :50 CBCD,SMEAR DIFF [...] Report See Note (Normal) Comments: Exam Number: [id number] MAMMOGRAM, BILATERAL SCREENING DIGITAL AND CAD HISTORYRoutine [...] mammograms werealso examined with computer-aided detection software (Image[employer]uli, Garp[employer].). Reported By: ELEANOR ERNANDEZ M.D. 32-Orw-84922:28 CBCD,SMEAR DIFF CELLS COUNTED 100 (Normal) EOS [...] :28 TSH 0.38 {uIU/mL} (Normal) Range: 0.34-4.82 6-Jyq-861436:04 Rapid Strep Test, Office (83819) Rapid Strep Test, Office Negative (Normal) 82-Wvi-907787:34 BILAT SCRN DIGITAL & CAD Radiology Report See Note (Normal) Comments: Exam Number: [id number] MAMMOGRAM, BILATERAL SCREENING DIGITAL AND CAD HISTORYRoutine [...] mammograms werealso examined with computer-aided detection software (ImageFarfetch, DailyDeal, Garpun.). Reported By: ELEANOR ERNANDEZ M.D. 17-Muk-907502:31 DEXA BONE DENSITY STUDY (HP) Radiology Report See Note (Normal) Comments: Exam Number: [id number] BONE DENSITOMETRY HISTORYPostmenopausal. TECHNIQUE Bone densitometry of [...] mg/dL VLDL 18 mg/dL (Normal) Range: 5-40 84-Myi-025981:39 TSH 0.43 {uIU/mL} (Normal) Range: 0.34-4.82 91-Syx-656850:26 BMP BUN 23 mg/dL (Abnormal) Range: 7-18 [...] : Follow up in 3 months with [facility] Indication: Hypertensive heart disease Hematuria, unspecified : FOLLOW UP IN 3 MONTHS [facility] Indication: Hematuria, unspecified Abnormal blood chemistry : [...] : Follow up for well woman with [facility] per pt request Indication: Hydronephrosis Anemia : FOLLOW UP IN 2 WEEKS January 07 by [facility] Indication: Anemia Abdominal pain, acute, generalized : FOLLOW UP IN 1 WEEK with [facility] Indication: Abdominal pain, acute, generalized Diarrhea : [...] Bronchitis Planned Observations VITAMIN B12 AND FOLATES (72223)Indication: Vitamin B 12 deficiency On: 30-Siu-040991:42 Request TSH (THYROID STIMULATING HORMONE) (84773)Indication: Hypothyroidism On: 89-Sbj-507771:42 Request Metabolic Panel, Comprehensive (02095)Indication: Hypercholesterolemia On: 3-Trn-614381:52 Request Comments: Jun 2018 LIPID PANEL (29205)Indication: Hypercholesterolemia On: 8-Ptk-075886:51 Request Comments: Jun 2018 URINALYSIS (04580)Indication: Hypertension, essential, benign On: 54-Hkq-231379:52 Request MICROALBUMIN: CREATININE RATIO (31764) AND (84444)Indication: Hypertension, essential, benign On: 10-Lwq-144762:52 Request Metabolic Panel, Comprehensive (90615)Indication: Hypertension, essential, benign On: 58-Tns-818359:50 Request Comments: send to [facility] CBC, Platelets & Auto Diff (60203)Indication: Hypertension, essential, benign On: 40-Plx-848805:50 Request Comments: send to [facility] TSH (16867)Indication: Hypothyroidism On: 05-Zxw-551093:50 Request Comments: send to [facility] LIPID PANEL (66569)Indication: Hypercholesterolemia On: 29-Dkg-688162:50 Request Comments: send to [facility] URINALYSIS (83826)Indication: Hypertension, essential, benign On: 3-Hzx-662537:03 Request Comments: today MICROALBUMIN: CREATININE RATIO (88321) AND (11239)Indication: Hypertension, essential, benign On: 6-Byv-156394:03 Request Comments: today TSH (93518)Indication: Hypothyroidism On: 2-Pwb-203781:03 Request Comments: Jul 2017 MICROALBUMIN: CREATININE RATIO (20594) AND (89288)Indication: Hypertension, essential, benign On: 29-Rpk-183565:51 Request Comments: Mar 2017 URINALYSIS (57744)Indication: Hypertension, essential, benign On: 14-Obu-345094:51 Request Comments: Mar 2017 TSH (51886)Indication: Hypertension, essential, benign On: 91-Wxl-136768:51 Request Comments: Mar 2017 CBC, Platelets & Auto Diff (10164)Indication: Hypertension, essential, benign On: 44-Hid-137106:51 Request Comments: Mar 2017 Metabolic Panel, Comprehensive (89918)Indication: Hypertension, essential, benign On: 53-Uxi-217617:51 Request TSH (THYROID STIMULATING HORMONE) (95549)Indication: Hypothyroidism On: 76-Aqk-568815:53 Request HEPATIC FUNCTION PANEL (59063)Indication: Hypertension, essential, benign On: 81-Jox-652149:47 Request VITAMIN B12 AND FOLATES (67335)Indication: Vitamin B 12 deficiency On: 2-Cvv-818536:52 Request CALCIFEDIOL (80144)Indication: DEFICIENCY, VITAMIN D NOS On: 5-Cbw-167765:52 Request Urinalysis, Office (33954)Indication: Hematuria, unspecified On: 14-Rqm-531817:35 Request MICROALBUMIN URINE QUANT (92818)Indication: Hypertensive heart disease On: 97-Sua-694218:25 Request FECAL OCCULT HGB ASSAY- tubes sent home (51329)Indication: Well woman exam On: 3-Iec-114217:51 Request OCCULT BLOOD FECES SCREEN- card done in office (89184)Indication: Well woman exam On: 4-Vvj-537334:51 Request Renal function Panel (59528)Indication: Hydronephrosis On: 3-Fuo-781516:22 Request Iron (59426)Indication: Anemia On: 19-Qes-309466:39 Request Iron Binding Capacity (TIBC) (30669)Indication: Anemia On: 07-Khz-289635:39 Request OVA & PARASITE DIR SMEAR (93625)Indication: Diarrhea On: 70-Fev-672102:50 Request OCCULT BLOOD FECES SCREEN (38797)Indication: Diarrhea On: 08-Gbl-216097:50 Request LEUKOCYTE COUNT, FECAL (62940)Indication: Diarrhea On: 76-Mrd-220284:50 Request C-DIFFICILE, STOOL (68151)Indication: Diarrhea On: 44-Zjh-294486:50 Request LORNA CULTURE-STOOL (85124)Indication: Diarrhea On: 67-Nri-288853:50 Request HEPATIC FUNCTION PANEL (43589)Indication: Hypercholesterolemia On: 00-Amd-135896:46 Request Lipid Panel (65278)Indication: Hypercholesterolemia On: 40-Xxr-161715:46 Request Comments: in three months (approximately) TSH (28584)Indication: Hypothyroidism On: 87-Xha-326950:06 Request METABOLIC PANEL, COMPREHENSIVE (04260)Indication: Hypertensive heart disease On: 61-Jjb-649360:06 Request LIPID PANEL (41941)Indication: Hypertensive heart disease On: 38-Sku-469377:06 Request CBC WITH MANUAL DIFF (85684)Indication: Hypertensive heart disease On: 02-Fpg-117663:06 Request LORNA CULTURE-OTHER (08734)Indication: Pharyngitis, acute On: 7-Lwj-513350:04 Request CBC (Auto) (79547)Indication: Hypercholesterolemia On: 43-Xoq-58898:13 Request Lipid Panel (01849)Indication: Hypercholesterolemia On: 44-Wdp-73177:13 Request Metabolic Panel, Comprehensive (49604)Indication: Hypercholesterolemia On: 85-Iev-61981:13 Request Comments: in six months (approximately) TSH (80266)Indication: Hypothyroidism On: 54-Tzy-150335:06 Request LIPID PANEL (27467)Indication: Hypertension On: 56-Wgq-689455:01 Request Planned Encounters Medical; 3 Month FU - On: 27-Sep-2018 11:15 [facility] Sarai Bro CNP, CNP, Mary E Planned Procedures Flu Vaccine (Quadrivalent) On: 02-Jun-2018 Intent 64379Fu: Sarai Bro CNP Comments: Lot #[id number]/30/2019Site-L dltd, IMDose prefilled syringegiven by: CLEOPATRA CHOI reviewed and ABN signed Sarai Bro CNP MAMMOGRAM BREAST BILATERAL On: 27-May-2018 Intent SCREENING DIGITAL (94809)By: Sarai Bro CNP, CNP, Mary E Radiology - Femur - RightBy: On: 02-Mar-2018 Intent Sarai Bro CNP, CNP, Mary E DEXA SCAN AXIAL SKELETON On: 19-Oct-2017 Intent (83937)By: Sarai Bro CNP, CNP, Mary E Aerosol Treatment (82685)By: On: 07-Sep-2017 Intent Kelly Naqvi Comments: Lungs clear after aerosol treatment Flu Vaccine (Quadrivalent) On: 13-Apr-2017 Intent 39431Wp: Giselle Silva LPN Comments: InfluenzaLot #[id number]/18/18Site-L dltd, IMDose prefilled syringeVIS and ABN signedgiven by:ROSA MARIA cade MAMMOGRAM BREAST BILATERAL On: 05-Jan-2017 Intent SCREENING DIGITAL (29266)By: Comments: after Apr 24 2017 Sarai Bro CNP, CNP, Mary E DEXA SCAN AXIAL SKELETON On: 05-Jan-2017 Intent (02098)By: Sarai Bro CNP Comments: After Apr 24 2017 Sarai Bro CNP Flu Vaccine (Quadrivalent) On: 06-Jul-2016 Intent 42826Og: Giselle Silva LPN Comments: InfluenzaLot #Lot [id number]/30/17Site-L dltd, IMDose prefilled syringeVIS and ABN signedgiven by:ROSA MARIA cade MAMMOGRAM, SCREENING, BOTH On: 31-Mar-2016 Intent BREAST (83775)By: Sarai Bro CNP, CNP, Mary E MAMMOGRAM, SCREENING, BOTH On: 17-Feb-2016 Intent BREAST (94222)By: Sarai Bro CNP, CNP, Mary E PHYSICAL THERAPY EVALUATION On: 28-Jan-2016 Intent (10553)By: Sarai Bro CNP, CNP, Mary E PHYSICAL THERAPY EVALUATION On: 28-Jan-2016 Intent (01747)By: Sarai Bro CNP, CNP, Mary E Toradol Injection, 30 mg On: 28-Jan-2016 Intent (J1885)By: Sarai Bro CNP, CNP, Mary E Radiology - Lumbar SpineBy: On: 28-Jan-2016 Intent Sarai Bro CNP, CNP, Mary E Radiology - Knee - LeftBy: On: 28-Jan-2016 Intent Sarai Bro CNP, CNP, Mary E Aerosol Treatment (57761)By: On: 24-Dec-2015 Intent Adali CARNEY Sarai Moon Tiffaniebonita ANGELIKA Sarai Moon Flu Vaccine (Quadrivalent) On: 10-May-2015 Intent 38692Qn: Adali CARNEY Rianna Comments: Lot:[id number]:02/06/16Dose:0.5mLRoute:IMSite:L DltdGiven By:Kacie signed Adali CARNEY Rianna DEXA SCAN AXIAL SKELETON On: 19-Mar-2015 Intent (73561)By: Sarai Bro CNP, CNP Rianna MAMMOGRAM, SCREENING, BOTH On: 11-Feb-2015 Intent BREAST (44161)By: Adali CARNEY RiannaRed Bro CNP Rianna DEXA SCAN AXIAL SKELETON On: 11-Feb-2015 Intent (41071)By: Adali CARNEY RiannaRed Bro CNP Rianna Solu -Medrol Injection, 125 On: 25-Jul-2014 Intent mg (J2930)By: Adali CARNEY, Comments: [id number] 5.17right gm125 mgas, RIPRAP PLACER Sarai Moon Tiffaniewojciechvon CARNEY Rianna Aerosol Treatment (63499)By: On: 25-Jul-2014 Intent Adali CARNEY Sarai Moon Tiffaniebonita ANGELIKA Sarai Moon Toradol Injection, 30 mg On: 18-Jul-2014 Intent (J1885)By: Adali CARNEY Rianna Ciwojciechvon CARNEY Rianna Radiology - Lumbar SpineBy: On: 18-Jul-2014 Intent Adali CARNEY Sarai Moon Tiffaniebonita ANGELIKA Rianna Radiology - Hip - RightBy: On: 18-Jul-2014 Intent Adali CARNEY Sarai Bro ANGELIKA Sarai Moon Prevnar 13 (49380)By: Slarb On: 16-Jul-2014 Intent Giselle CRANE Comments: [id number] arm, IMAS Bone Density StudyBy: Adali On: 15-May-2014 Intent ANGELIKA RiannaRed Bro CNP Rianna ADMINISTRATION OF INFLUENZA On: 15-May-2014 Intent VIRUS VACCINE (G0008)By: Sarai Bro CNP, CNP Rianna FLU VAC, SPLIT, >3 YEARS, On: 15-May-2014 Intent INTRAMUSC (11146)By: Adali Comments: Lot:[id number]:04/24Dose:0.5mLRoute:IMSite:L DltdGiven By:JSONIA signed Sarai CARNEY CNP, Mary E SPECIMEN HNDLNG/TRNSPRT, OFFC On: 22-Mar-2014 Intent > LAB (46867)By: Sarai Bro CNP, CNP, Mary E BILATERAL MAMMOGRAMS On: 18-Dec-2013 Intent (80035)By: Sarai Bro CNP, CNP, Mary E Aerosol Treatment (63535)By: On: 22-Sep-2013 Intent Sarai Bro CNP, CNP, Mary E Wax CurettesBy: Adali CARNEY, On: 22-Sep-2013 Intent Sarai Busby CNP Ear Irrigation (62418)By: On: 22-Sep-2013 Intent Sarai Bro CNP, CNP, Mary E Eprescribed prescriptions On: 18-Aug-2013 Intent (G8553)By: Lucrecia Vargas Eprescribed prescriptions On: 05-May-2013 Intent (G8553)By: Sarai Bro CNP, CNP, Mary E ADMINISTRATION OF INFLUENZA On: 05-May-2013 Intent VIRUS VACCINE (G0008)By: Comments: lot # [id number] 6.2014site- L dltdroute-IMdose- 0.5mlVIS and ABN signedMercy Health Lorain HospitalPenny Grace LPN, LPN FLU VAC, SPLIT, >3 YEARS, On: 05-May-2013 Intent INTRAMUSC (89351)By: Penny Irving LPN MAMMOGRAM, SCREENING, BOTH On: 16-Dec-2012 Intent BREASTS (20887)By: Sarai Bro CNP, CNP, Mary E Spirometry (52565)By: Aristides On: 16-Dec-2012 Intent Penny CRANE Comments: mild airway obstruction Aerosol Treatment (25376)By: On: 30-Mar-2012 Intent Sarai Bro CNP, CNP, Mary E PFT - CompleteBy: Adali CARNEY, On: 01-Mar-2012 Intent Sarai Busby CNP Inhaler Demonstration On: 28-Dec-2011 Intent (41078)By: Roccovon CARNEY Sarai Moon Tiffaniewojciechvon CARNEY Rianna Pulse Oximetry (43571)By: On: 28-Dec-2011 Intent Sarai Bro CNP ANGELIKA Sarai Moon Eprescribed prescriptions On: 22-Apr-2011 Intent (G8553)By: Adali ANGELIKA Sarai Bro ANGELIKA Sarai Moon Eprescribed prescriptions On: 21-Oct-2010 Intent (G8553)By: Adali ANGELIKA Sarai Bro ANGELIKA Sarai Moon Eprescribed prescriptions On: 21-Oct-2010 Intent (G8553)By: Roccovon CARNEY Sarai Moon Tiffaniewojciechvon CARNEY Rianna MAMMOGRAM, SCREENING, BOTH On: 15-Apr-2010 Intent BREASTS (61962)By: Adali CARNEY RiannaRed Bro CNP Rianna Ultrasound - RenalBy: Adali On: 23-Dec-2009 Intent ANGELIKA RiannaRed Bro CNP Rianna Comments: To be done on December 30 CT - Abdomen & Pelvis (IV On: 17-Dec-2009 Intent Contrast Needed)By: Adali CARNEY Rianna Ciwojciechvon CARNEY Sarai Moon ADMINISTRATION OF INFLUENZA On: 22-May-2009 Intent VIRUS VACCINE (G0008)By: Karina Nina LPN FLU VAC, SPLIT, >3 YEARS, On: 22-May-2009 Intent INTRAMUSC (10042)By: Kelle Comments: Lot #[id number]-left deltoidgiven by:Karina PLAZA LPN Pulse Oximetry (11830)By: On: 25-Sep-2008 Intent PRESTON Thompson ADMINISTRATION OF INFLUENZA On: 13-Jun-2008 Intent VIRUS VACCINE (G0008)By: Comments: lot #[id number] exp- 01/15site-left delroute-imdose- 0.5 Penny Irving LPN FLU VAC, SPLIT, >3 YEARS, On: 13-Jun-2008 Intent INTRAMUSC (08417)By: Penny Irving LPN MAMMOGRAM, SCREENING, BOTH On: 28-May-2008 Intent BREASTS (37581)By: Susan Lee MD Bio Z (60944)By: Rosa CHRISTIANSEN, On: 28-Nov-2007 Intent Susan Sánchez SPECIMEN HNDLNG/TRNSPRT, OFFC On: 12-Oct-2007 Intent > LAB (29772)By: Tyesha Ramos DO Bone Density StudyBy: Rosa On: 18-Feb-2007 Intent Susan CHRISTIANSEN Comments: ache in back MAMMOGRAM, SCREENING, BOTH On: 18-Feb-2007 Intent BREASTS (06712)By: Susan Lee MD Bio Z (21194)By: Rosa CHRISTIANSEN, On: 20-Jul-2006 Intent Susan Sánchez Planned Medications INJECTION, KETOROLAC TROMETHAMINE, PER 15 MG Ordered: 18-Jul-2014 Pending [employer] MARKET INTELLIGENCE CONSULTANT, Rianna Ciesa MARKET INTELLIGENCE CONSULTANT, Rianna INJECTION, KETOROLAC TROMETHAMINE, PER 15 MG Ordered: 28-Jan-2016 Pending [employer] MARKET INTELLIGENCE CONSULTANT, Rianna Ciesa MARKET INTELLIGENCE CONSULTANT, Rianna INJECTION, METHYLPREDNISOLONE SODIUM SUCCINATE, UP TO 125 MG Ordered: 25-Jul-2014 Pending [employer] MARKET INTELLIGENCE CONSULTANT, Rianna Ciesa MARKET INTELLIGENCE CONSULTANT, Rianna Instructions Name Dates Details Nonsmoker : [...] social history. Yes the patient did have (30/30) a mini mental status exam done tod [...] contributing to the katty ent's care are music ministries director (Dr paz ), core microarchitect (Dr Vazquez ), urologist (Dr Pope ) [...] other people eating the same meal ,s jim schmittmus ,upper respiratory infection symptoms ,vomiting ,weakness ,weight [...] Medicine End: 30-Jun-2006 14:12 Payers MedicareAARP/Deisy Crain; von guarantor
--- OUTSIDE RECORDS SUMMARY | 2018-10-30 18:22 | XMS RPT_ITS | Continuity of Care Document ---
:1940 Author Organization [facility] Address [address] [facility] [address] [place] [address] Phone Care Team Providers Name Role Phone Tiffaniebonita ANGELIKA, Rianna Unavailable Amanda CHRISTIANSEN, Higinio Longoria Unavailable Turner CHRISTIANSEN, Nahun Plaza Unavailable [facility] BC, Eugenie Tovar Unavailable Rosa CHRISTIANSEN, Susna Sánchez Unavailable Nahun Vazquez Unavailable Waleska Freitas [...] : 18-Aug-2013 End : 28-Aug-2013 Inactive DRISDOL, [id number] (Oral Capsule) 1 Capsule twice weekly for [...] Lower Extremity Result: Comments: See Note; NOTES: [facility] Cardiovascular Services [address] [place] [address] Venous Duplex US - Paulie Extrem 04/07/18 1000 MR#: [id number] Acct: [id number] Name: VALERIE CRAIN Rep #: [id number] : 1940 77 From: Higinio Patel MD Attending Dr: Higinio Patel MD Status: REG CLI Ordering Dr: Higinio Patel MD Date: 04/07/18 Location: [facility] Sex: F C Admitted: Reason For Study: [...] Date Higinio Patel MD CC: Sarai Bro SCHOLASTIC APTITUDE TEST GRADER; Higinio Patel MD Date Dictated: 04/07/18 1000 Date Transcribed: 04/08/18 1607 Supplemental Manager: Signed 02-Mar-2018 Femur Min 2 Views Result: Comments: See Note; NOTES: [facility] Imaging Services [address] [place] [address] Femur Min 2 Views MR#: [id number] Acct: [id number] Name: VALERIE CRAIN Rep #: [id number] : 1940 F 77 From: Christiano Croft MD PCP: Sarai Bro NP Status: REG CLI Study: Femur Min 2 Views Date of Exam: 03/02/18 Exam# [id number] Ordering Dr: Sarai Bro STUDY: X-RAY - [...] vice support , CC: Sarai Bro NP Supplemental Manager: Signed 10-Feb-2018 Echocardiogram Complete Result: Comments: See Note; NOTES: [facility] Cardiovascular Services [address] [place] [address] Echo Complete 02/10/18 1100 MR#: [id number] Acct: [id number] Name: VALERIE CRAIN Rep #: [id number] : 1940 77 From: Amilcar Paz MD Attending Dr: Jennifer Goodwin Status: REG CLI Ordering Dr: Jennifer Goodwin Date: 02/10/18 Location: [facility] Sex: F C Admitted: [facility] For Study: DYSPNEA Procedure This was [...] Date Amilcar Paz MD CC: Sarai Bro SCHOLASTIC APTITUDE TEST GRADER; Jennifer Goodwin Date Dictated: 02/10/18 1100 Date Transcribed: 02/10/18 1241 Supplemental Manager: Signed 28-Jan-2018 Cardiology Visit Report Result: Comments: See Note; NOTES: [facility] [address] [place] [address] OFFICE VISIT Date of Service: 01/28/18 MR#: [id number] Acct: [id number] Name: VALERIE CRAIN Rep #: [id number] : 1940 Provider: Jennifer Goodwin Age/Sex: 77/F Location: [facility] Status: Signed HPI HPI Details: [...] for her age. 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 She does have [...] valve disorder (Chronic) Paroxysmal atrial fibrillation (Chronic) prison (current) use of anticoagulants (Chronic) Benign essential HTN (Chronic) Surgical History History of appendectomy (Resolved) H/O mitral valve repair (Chronic) Family History Father Decea sed, age 48 from [place] CAD (coronary artery disease) Sudden cardiac Myocardial [...] was generated using a voice recognition syst [employer] and there may be incorrect words, spelling or punctuation errors that were not noted when reviewing the office note prior to saving. 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 This patient may have a combination of pa per and electronic documentation or all paper documentation. All documentation is viewable within the e-chart portion of [facility] for each patient visit. 09-Nov-2017 Dexa Bone Density Study Result: Comments: See Note; NOTES: [facility] Imaging Services [address] [place] [address] Dexa Bone Density Study MR#: [id number] Acct: [id number] Name: VALERIE CRAIN Rep #: [id number] : 1940 F 77 From: Henry Jones MD PCP: Sarai Bro NP Status: REG CLI Study: Dexa Bone Density Study Date of Exam: 11/09/17 Exam# [id number] Ordering Dr: Sarai Bro STUDY: DUAL E [...] Henry Jones MD at 13:40 EDT Tel [phone], Service support , CC: Sarai Bro NP Supplemental Manager: Signed 27-Jul-2017 Cardiology Visit Report Result: Comments: See Note; NOTES: [facility] [address] [place] [address]. [address] [place] [address] OFFICE VISIT Date of Service: 07/27/17 MR#: [id number] Acct: [id number] Name: SEAN CRAIN #: [id number] : 1940 Provider: Amilcar Paz MD Age/Sex: 77/F Location: [facility] Status: Signed HPI 6 M [...] 07/27/17] Ejection fraction %: 40 to 44 [facility] Medical History Dilated cardiomyopathy (Chronic) Long-term use of high-risk medication (Chronic ) History of mitral valve disorder (Chronic) Paroxysmal atrial fibrillation (Chronic) prison (current) use of anticoagulants (Chronic) Benign essential HTN (Chronic) Dyslipidemia (Chronic) mitral maria m vuplasty (Chronic) Surgical History H/O mitral valve repair (Chronic) Family History Father , age 48 from [place] CAD (coronary artery disease) Sudden cardiac Myocardial [...] Signature: Date (if applicable) CC: Sarai Bro SCHOLASTIC APTITUDE TEST GRADER 17-May-2017 SCREENING MAMM (CAD), BILAT Result: Comments: See Note; NOTES: [facility] Imaging Services [address] [place] [address] SCREENING MAMM (CAD), BILAT MR#: [id number] Acct: [id number] Name: SEAN CRAIN Rep #: [id number] : 1940 F 76 From: Henry Jones MD PCP: Sarai Bro Status: REG CLI Study: SCREENING MAMM (CAD), BILAT Date of Exam: 05/17/17 Exam# [id number] Ordering Dr: Sarai Bro MAMMOGRAPH Y - [...] delay biopsy of a clinically suspicious abnormality. [id number] Electronically Signed: Henry Jones MD at 10:21 EDT Tel [phone], Service support , CC: Sarai Bro Supplemental Manager: Signed 27-Feb-2017 Carotid Duplex Ultrasound Result: Comments: See Note; NOTES: [facility] Cardiovascular Services [address] [place] [address] Carotid Duplex Ultrasound 02/26/17 1046 MR#: [id number] Acct: [id number] Name: SEAN ABEBE Rep #: [id number] : 1940 76 From: Malcolm Hill MD Attending Dr: Jennifer Goodwin Status: REG CLI Ordering Dr: Jennifer Goodwin Date: 02/26/17 Location: [facility] Sex: F C Admitte d: Reason For [...] Dictated: 02/26/17 1046 Date Transcribed: 02/27/17 1103 Supplemental Manager: Signed 03-Sep-2016 Chest PA and Lateral Result: Comments: See Note; NOTES: [facility] Imaging Services [address] [place] [address] Verdana 4d Chest PA and Lateral MR#: [id number] Acct: [id number] Name: SEAN CRAIN Rep # : [id number] : 1940 F 76 From: Henry Jones MD PCP: Sarai Bro Status: REG CLI Study: Chest PA and Lateral Date of Exam: 09/03/16 Exam# [id number] Ordering Dr: Nahun Vazquez MD STUD Y: [...] Henry diop MD at 12:41 EST Tel [phone], Service support [phone], CC: Sarai Bro; Nahun Vazquez MD Supplemental Manager: Signed 28-Aug-2016 Echocardiogram Complete Result: Comments: See Note; NOTES: [facility] Cardiovascular Services [address] [place] [address] Echo Complete 08/28/16 1003 MR#: [id number] Acct: [id number] Name: SEAN CRAIN p #: [id number] : 1940 76 From: Amilcar Paz MD Attending Dr: Tova CHRISTIANSEN,Amilcar Status: REG CLI Ordering Dr: Amilcar Paz MD Date: 08/28/16 Location: [facility] Sex: F C Admitted: Reason For Study: AT [facility] Procedure This was a 2D [...] Dictated: 08/28/16 1003 Date Transcribed: 08/28/16 1225 Supplemental Manager: Signed 24-Apr-2016 Bilat Scrn Digital AND CAD Result: Comments: See Note; NOTES: [facility] Imaging Services [address] [place] [place] [address] Verdana 4d Bilat Scrn Digital AND CAD MR#: [id number] Acct: [id number] Name: SEAN CRAIN Rep #: [id number] : 1940 F 75 From: Henry Jones MD PCP: Sarai Bro Status: REG CLI Study: Bilat Scrn Digital AND CAD Date of Exam: 04/24/16 Exam# [id number] Ordering Dr: Sarai Bro MAMMOGRAPHY - BILATERAL [...] delay biopsy of a clinically suspicious abnormality. [id number] Electronically Signed: Henry Jones MD at 10:58 EDT Tel [phone], Service support [phone], CC: Sarai Bro Supplemental Manager: Signed 04-Mar-2016 PT D/C Summary (1) Result: Comments: See Note; NOTES: [facility] Physical Therapy [facility] [address] [place] [address] Fax [facility]HABILITATION [facility] DISCHARGE SUMMARY MR#: [id number] Acct: [id number] Name: SEAN CARIN Rep #: [id number] : 1940 75 From: Giselle Yan MPT [...] please feel free to call me at [phone]. Thank you for the referral of this patie nt. Sincerely, Giselle Yan <Electronically signed by Giselle Yan MPT> 03/04/161916 CC: Sarai Bro Signed 04-Feb-2016 Inital Evaluation (1) - PT Result: Comments: See Note; NOTES: [facility] Physical [facility] [address] [place] [address] Fax [facility] MR#: [id number] Acct: [id number] Name: SEAN CRAIN Rep #: [id number] : 1940 75 From: Giselle NELSON Referring Dr.: Sarai Bor Status: REG RCR Insurance: MEDICARE PART A B [facility] Patient's Visit Information SEAN CRAIN is [...] to be FAXED BACK to us at [phone] for Medicare purposes . Please let me know if there are questions or concerns regarding this plan of care. Physician Signature: Date: <Electronical ly signed by Giselle Yan MPT> 02/04/16 8108 CC: Sarai Morenoesa Signed For Medicare only, by signing this I certify the plan of care. Physicians Signature Date 28-Jan-2016 Knee 4 or More Views Result: Comments: See Note; NOTES: [facility] Imaging Services [address] [place] [address] Verdana 4d Knee 4 or More Views MR#: [id number] Acct: [id number] Name: SEAN DWYER Rep #: [id number] : 1940 F 75 From: Shreyas Beaver MD PCP: Sarai Bro Status: REG CLI Study: Knee 4 or More Views Date of Exam: 01/28/16 Exam# [id number] Ordering Dr: Sarai Bro STUDY: X-RAY - [...] MD at 19:39 EDT , Service support [phone], ORDER # : [id number] RAD/Knee 4 or More Views IMPRESSION: No acute abnormality. Mild degenerative changes. Electronically Signed: Shreyas Beaver MD at 19:39 EDT , Service sup port [phone], CC: Sarai Bro Supplemental Manager: Signed 28-Jan-2016 L/S Spine Min 4 Views Result: Comments: See Note; NOTES: [facility] Imaging Services [address] [place] [address] Verdana 4d L/S Spine Min 4 Views MR#: [id number] Acct: [id number] Name: SEAN BERRIOS Rep #: [id number] : 1940 F 75 From: Shreyas Beaver MD PCP: Sarai Bro Status: REG CLI Study: L/S Spine Min 4 Views Date of Exam: 01/28/16 Exam# [id number] Ordering Dr: Shital Bro STUDY: X-RAY - [...] MD at 19:40 EDT , Service support [phone], Fax RAD/L/S Spine Min 4 Views IMPRESSION: No acute abnormality. Mild to moderate degenerative changes. Electronically Signed: Shreyas Beaver MD at 19:40 EDT T el [phone], Service support [phone], CC: Sarai Bro Supplemental Manager: Signed 19-Mar-2015 Dexa Bone Density Study (HP) Result: Comments: See Note; NOTES: [facility] Imaging Services [address] [place] [address] Bone Density Report MR#: [id number] Acct: [id number] Name: SEAN CRAIN Rep #: [id number] : 1940 F 74 From: Henry Jones MD PCP: Sarai Bro Status: REG CLI Study: Dexa Bone Density Study (HP) Date of Exam: 03/19/15 Exam# [id number] Ordering Dr: Sarai Bro STUD Y: DUAL [...] Henry Jones MD at 14:35 EDT Tel [phone], Servic e support [phone], CC: Sarai Bro Supplemental Manager: Signed 12-Mar-2015 Bilat Scrn Digital AND CAD Result: Comments: See Note; NOTES: [facility] Imaging Services [address] [place] [address] Breast Imaging Report MR#: [id number] Acct: [id number] Name: SEAN CARIN Rep #: [id number] : 1940 F 74 From: Henry Jones MD PCP: Sarai Bro Status: REG CLI Study: Bilat Scrn Digital AND CAD Date of Exam: 03/12/15 Exam# [id number] Ordering Dr: Sarai Bro MAMM OGRAPHY - [...] MD 20 23/03/04 at 9:59 EDT Tel [phone], Service support [phone], CC: Sarai Bro Supplemental Manager: Signed 16-Jan-2015 Operative Report Result: Comments: See Note; NOTES: [facility] Medical Records Department [address] [place] [address] Operative Report MR#: [id number] Acct: [id number] Name: SEAN CRAIN Rep #: [id number] : 1940 74 From: Aimlcar Paz MD PCP: Sarai Bro Status: REG [...] care. Amilcar Paz MD T: NTS JOB: [id number] 01/16/15 0901 <Electronically signed by Amilcar Paz MD&amp ;#62; Date Amilcar Paz MD CC: Sarai Bro; Amilcar Paz MD Date Dictated: 01/14/151318 Date Transcribed: 01/14/151318 Supplemental Manager: Signed 15-Jan-2015 Consultation Result: Comments: See Note; NOTES: [facility] Medical Records Department [address] [place] [address] Consultation MR#: [id number] Acct: [id number] Name: SEAN CRAIN Rep #: [id number] : 1940 74 From: Armando Waite MD [...] HENDERSON C: Amilcar Bro T: SHARMAINE JOB: [id number] 01/15/15 0643 <Electronically signed by Armando Waite MD> Date Armando Waite MD CC: Sarai Bro; Armando Waite MD; Amilcar Paz MD Date Dictated: 01/14/15 1357 Date Transcribed: 01/14/151356 Supplemental Manager: Signed 07-Jan-2015 Chest PA and Lateral Result: Comments: See Note; NOTES: [facility] Imaging Services [address] [place] [address] Radiology Report MR#: [id number] Acct: [id number] Name: SEAN CRAIN Rep #: [id number] : 1940 F 74 From: Henry Jones MD PCP: Sarai Bro Status: PRE CLI Study: Chest PA and Lateral Date of Exam: 01/07/15 Exam# [id number] Ordering Dr: Amilcar Paz MD STUDY: X-RA [...] Henry Jones MD at 14:28 EDT Tel [phone], Service support [phone], RAD/Chest PA and Lateral IMPRESSION: Hyperinflation. No acute abnormality is seen. Electronically Signed: Henry Jones MD 2014 at 14:28 EDT Tel [phone], Service support [phone], CC: Sarai Bro; Amilcar Paz MD Supplemental Manager: Signed 24-Dec-2014 Echocardiogram Complete Result: Comments: See Note; NOTES: [facility] Cardiovascular Services [address] [place] [address] Echo Complete 12/24/14 1003 MR#: [id number] Acct: [id number] Name: SEAN CRAIN Rep #: [id number] : 1940 74 From: Amilcar Paz MD Attending Dr: Jennifer Monroe Status: REG CLI Ordering Dr: Jennifer Monroe Date: 12/24/14 Location: [facility] Sex: F C Admitted: Jose Alfredo alegria [...] Dictated: 12/24/14 1003 Date Transcribed: 12/24/14 1359 Supplemental Manager: Signed 19-Jul-2014 Hip min 2 Views Result: Comments: See Note; NOTES: [facility] Imaging Services [address] [place] [address] Radiology Report MR#: [id number] Acct: [id number] Name: SEAN CRAIN Rep #: [id number] : 1940 F 74 From: Henry Jones MD PCP: Sarai Bro Status: REG CLI Study: Hip min 2 Views Date of Exam: 07/19/14 Exam# [id number] Ordering Dr: Sarai Bro STUDY: X-RAY - [...] Henry Jones MD at 11:38 EST Tel [phone], Service support [phone], RAD/Hip min 2 Views IMPRESSION: Degenerative changes of the hip. Electronically Signed: Henry Jones MD at 11:38 EST Tel [phone], Service support [phone], CC : Sarai Bro Supplemental Manager: Signed 19-Jul-2014 L/S Spine Min 4 Views Result: Comments: See Note; NOTES: [facility] Imaging Services [address] [place] [address] Radiology Report MR#: [id number] Acct: [id number] Name: SEAN CRIAN Rep #: [id number] : 1940 F 74 From: Henry Jones MD PCP: Sarai Bro Status: REG CLI Study: L/S Spine Min 4 Views Date of Exam: 07/19/14 Exam# [id number] Ordering Dr: Sarai Bro STUDY: X-RAY - [...] Henry Jones MD at 13:19 EST Tel [phone], Service support [phone], CC: Sarai Bro Supplemental Manager: Signed 05-Jan-2014 Bilat Scrn Digital & CAD Result: Comments: See Note; NOTES: [facility] Imaging Services [address] [place] [address] Breast Imaging Report MR#: [id number] Acct: [id number] Name: SEAN CRAIN Rep #: [id number] : 1940 F 73 From: Henry Jones MD PCP: Status: REG CLI Exam# [id number] Ordering Dr: Sarai Bro MAMMOGRAPHY - BILATERAL [...] Henry Jones MD at 9:58 EDT Tel [phone], Service support [phone], CC: Sarai Bro; Amilcar Paz MD Supplemental Manager: Signed Immunization Name Dates Details Influenza (3 years and up) on: 13-Jun-2008 Influenza (3 years and up) on: 22-May-2009 Comments: Lot #[id number]-left deltoidgiven by:CDH Family History Unknown Family Member Name Dates Details Father Comments: DC at 48 & Status: Active Social History [...] kg/m2 Body Surface Area Calculated 1.88 m2 48-Pqf-774002:20 Temperature 99.4 f Comments: Method: Temporal Pulse [...] kg/m2 Body Surface Area Calculated 1.82 m2 59-Ivp-878336:57 Temperature 98 f Pulse 60 /min Comments: [...] 0.00 cm Results Date Description Value Details 61-Blg-277088:49 Comprehensive Metabolic Profil Comments: [facility] [address] [place], [place], [address] GAP 5 (Normal) Range: 5-15 CO2 30.0 [...] Comments: Please note revised GLUCOSE reference range celeorxlp83/02/2018. 93-Zir-099407:49 Lipid Profile Comments: [facility] [address] [place], [place], [address] VLDL 25 mg/dL (Normal) Range: 5-40 LDL [...] 200-240 mg/dL Borderline >240 mg/dL High Risk 19-Iuk-561498:49 Prothrombin Time w/INR Comments: Comments: STANDING ORDERComments: [facility] [address] [place], [place], [address] INR 2.8 (Normal) PROTIME 29.6 s (Abnormal) Range: 11.7-14.9 4-Czd-037833:18 Prothrombin Time w/INR Comments: [facility] [address] [place], [address] INR 2.7 (Normal) PROTIME 28.4 s (Abnormal) Range: 11.7-14.9 13-Apn-957091:14 Prothrombin Time w/INR Comments: [facility] [address] [place], [address] INR 2.2 (Normal) PROTIME 24.6 s (Abnormal) Range: 11.7-14.9 52-Rjw-226888:18 Prothrombin Time w/INR Comments: [facility] [address] [place], [address] INR 2.2 (Normal) PROTIME 24.3 s (Abnormal) Range: 11.7-14.9 27-Kge-116205:26 Prothrombin Time w/INR Comments: [facility] [address] [place], [address] INR 2.2 (Normal) PROTIME 24.6 s (Abnormal) Range: 11.7-14.9 52-Fhh-291361:13 Prothrombin Time w/INR Comments: [facility] [address] [place], [address] INR 2.3 (Normal) PROTIME 25.7 s (Abnormal) Range: 11.7-14.9 :58 Prothrombin Time w/INR Comments: [facility] [address] [place], [address] INR 2.0 (Normal) PROTIME 22.8 s (Abnormal) Range: 11.7-14.9 :45 CBC W/Diff, Automated Comments: [facility] [address] [place], [address] ; another Absolute Lymph 2.13 {X10_3/ul} (Normal) [...] 4.2-5.4 WBC 5.6 K/mm3 (Normal) Range: 4.4-11.0 01-Bby-00614:45 Comprehensive Metabolic Profil Comments: [facility] [address] [place], [place], [address] ; Dr Paz GAP 8 (Normal) Range: [...] Please note revised GLUCOSE reference range /02/2018. 88-Upn-00955:45 Lipid Profile Comments: [facility] [address] [place], [place], [address] VLDL 17 mg/dL (Normal) Range: 5-40 LDL [...] 200-240 mg/dL Borderline >240 mg/dL High Risk 55-Bxa-03529:45 Microalb:Creat Ratio,Random UR Comments: [facility] [address] [place], [address] MALB:CREAT 8.4 {mg/g_CRE} (Normal) MICROALBUMIN,UR 13.5 mg/L (Normal) UR CREAT 160.00 mg/dL (Normal) 74-Css-86592:45 Prothrombin Time w/INR Comments: [facility] [address] [place], [address] INR 1.9 (Normal) PROTIME 21.5 s (Abnormal) Range: 11.7-14.9 Comments: ADDENDA: cardio 96-Wuq-74491:45 Thyroid Stim Hormone (TSH) Comments: [facility] [address] [place], [address] TSH 2.92 {uIU/mL} (Normal) Range: 0.358-3.74 50-Qia-76108:45 Urinalysis, Routine (Dipstick) Comments: How was Urine Obtained? CLEAN [facility] [address] [place], [address] ; other doc LEUK ESTERASE 100 /ul (Abnormal) OCCULT BLOOD-UR 50 /ul (Abnormal) NITRITE UR Negative (Normal) UROBILI Normal mg/dL (Normal) PROT DIPSTX Negative mg/dL (Normal) pH UR 6.0 (Normal) Range: 5.0 - 8.0 SP.GR. DIPSTX 1.020 (Normal) Range: 1.002-1.030 KETONE UR Negative mg/dL (Normal) BILIRUBIN URINE Negative mg/dL (Normal) GLUCOSE, UR Normal mg/dL (Normal) CLARITY Cloudy (Normal) COLOR Yellow (Normal) 99-Qju-561201:31 Prothrombin Time w/INR Comments: [facility] [address] [place], [address] INR 2.1 (Normal) PROTIME 23.3 s (Abnormal) Range: 11.7-14.9 2-Pal-191055:20 Prothrombin Time w/INR Comments: [facility] [address] [place], [address] INR 2.2 (Normal) Comments: ADDENDA: managed by cardio PROTIME 24.1 s (Abnormal) Range: 11.7-14.9 00-Fgw-344913:40 Prothrombin Time w/INR Comments: [facility] [address] [place], [address] ; managed by cardio INR 2.0 (Normal) PROTIME 22.9 s (Abnormal) Range: 11.7-14.9 92-Zae-072943:13 Prothrombin Time w/INR Comments: [facility] [address] [place], [address] INR 1.6 (Normal) PROTIME 19.5 s (Abnormal) Range: 11.7-14.9 38-Cgk-457857:28 Prothrombin Time w/INR Comments: [facility] [address] [place], [address] ; cardio INR 1.8 (Normal) PROTIME 19.8 s (Abnormal) Range: 11.7-14.9 1-Emz-599598:53 Prothrombin Time w/INR Comments: [facility] [address] [place], [address] INR 2.4 (Normal) PROTIME 24.8 s (Abnormal) Range: 11.7-14.9 4-Kjx-613052:26 Prothrombin Time w/INR Comments: [place] [address] [place], [address] INR 1.9 (Normal) PROTIME 21.2 s (Abnormal) Range: 11.7-14.9 65-Rxd-438720:42 Rapid Flu (07536 x 2) Influenza A Ag POS B (Normal) 71-Njl-035856:04 Prothrombin Time w/INR Comments: [facility] [address] [place], [place], [address] ; cardio manages INR 1.4 (Normal) PROTIME 16.5 s (Abnormal) Range: 11.7-14.9 59-Uar-640030:28 Prothrombin Time w/INR Comments: [facility] [address] [place], [address] INR 1.2 (Normal) PROTIME 14.3 s (Normal) Range: 11.7-14.9 0-Ivo-480165:11 Prothrombin Time w/INR Comments: [facility] [address] [place], [address] INR 2.0 (Normal) PROTIME 21.6 s (Abnormal) Range: 11.7-14.9 :18 CBC W/Diff, Automated Comments: [facility] [address] [place], [address] Absolute Lymph 2.38 {X10_3/ul} (Normal) [...] Range: 4.4-11.0 :18 Prothrombin Time w/INR Comments: [facility] [address] [place], [address] INR 2.1 (Normal) PROTIME 22.8 s (Abnormal) Range: 11.7-14.9 00-Tze-312842:52 POTASSIUM SERUM (35181) Comments: STAT; Order Date: 07/23/17Order Info: 2823-3 - KComments: [facility] [address] [place], [address] K 4.4 mmol/L (Normal) Range: 3.5-5.1 :56 Microscopic Examination Comments: PATIENT NOT FASTINGPERFORMED BY: CB [facility] [address] [place] [id number] Bacteria Few (Normal) Mucus Threads Present (Normal) Epithelial Cells (non renal) 0-10 {/hpf} (Normal) Range: 0 - 10 RBC 3-10 {/hpf} (Abnormal) Range: 0 - 2 WBC 0-5 {/hpf} (Normal) Range: 0 - 5 :56 VITAMIN B-12 (CYANOCOBALAMIN) Comments: PATIENT NOT FASTINGPERFORMED BY: CB [facility] [address] [facility] [place] [id number] ([id number]) Vitamin B12 451 pg/mL (Normal) Range: 232-1245 Comments: Please note reference interval change :56 TSH (28734) Comments: PATIENT NOT FASTINGPERFORMED BY: CB [facility] Cqlsxe7695 [address] RoadDublin [place] [id number] TSH 2.910 {uIU/mL} (Normal) Range: 0.450-4.500 :56 URINALYSIS, W/ MICRO (92507) Comments: PATIENT NOT FASTINGPERFORMED BY: CB [facility] Xalfsc8596 Murray RoadDublin [place] [id number] Microscopic Examination See below: (Normal) Comments: Microscopic was indicated and was performed. Nitrite, Urine Negative (Normal) Urobilinogen,Semi-Qn 0.2 mg/dL (Normal) Range: 0.2-1.0 Bilirubin Negative (Normal) Occult Blood 1+ (Abnormal) Ketones Negative (Normal) Glucose Negative (Normal) Protein Negative (Normal) WBC Esterase Trace (Abnormal) Appearance Clear (Normal) Urine-Color Yellow (Normal) pH 7.0 (Normal) Range: 5.0-7.5 Specific [place] 1.017 (Normal) Range: 1.005-1.030 60-Oct-754834:56 MICROALBUMIN: CREATININE RATIO Comments: PATIENT NOT FASTINGPERFORMED BY: [facility] MeetNewark [facility] CenterLuvlmd8409 [facility] [id number] ([id number]) AND (29511) Microalb/Creat Ratio 7.4 {mg/g_creat} (Normal) Range: 0.0-30.0 Microalbumin, Urine 5.0 ug/mL (Normal) Creatinine, Urine 68.0 mg/dL (Normal) :56 METABOLIC PANEL, COMPREHENSIVE Comments: PATIENT NOT FASTINGPERFORMED BY: [facility] MeetNew[facility] CenterXfqcap9010 [facility] [id number] (84259) ALT (SGPT) 18 [iU]/L (Normal) Range: 0-32 [...] Glucose, Serum 87 mg/dL (Normal) Range: 65-99 48-Oir-363762:56 CBC W/AUTO DIFF WBC (72756) Comments: PATIENT NOT FASTINGPERFORMED BY: [facility] Ydfoan7729 [facility] [id number] Immature Grans (Abs) 0.0 {x10E3/uL} (Normal) Range: [...] 3.77-5.28 WBC 11.3 {x10E3/uL} (Abnormal) Range: 3.4-10.8 8-Cen-786690:38 Prothrombin Time w/INR Comments: [facility] Poec[address] [place], [place], [address] INR 2.0 (Normal) PROTIME 22.0 s (Abnormal) Range: 11.7-14.9 34-Nny-628413:21 Prothrombin Time w/INR Comments: [facility] X[address] [place], [phone] INR 2.5 (Normal) PROTIME 26.0 s (Abnormal) Range: 11.7-14.9 :12 Lipid Profile Comments: Order Date: 12/04/16Order Info: 0788-1 - *Hepatic Function PanelOrder Info: 50900-9 - *Lipid Profile CC PCPComments: 12 hours fasting, may have water.[facility] [address] [place], [place], [address] VLDL 21 mg/dL (Normal) Range: 5-40 LDL [...] Info: 0788-1 - *Hepatic Function PanelOrder Info: 43060-3 - *Lipid Profile CC PCPComments: 12 hours fasting, may have water.[facility] [address] [place], [address] D BILI 0.09 mg/dL (Normal) Range: 0.00-0.30 T BILI 0.50 mg/dL (Normal) Range: 0.20-1.00 ALT 21 U/L (Normal) Range: 12-78 ALK P 78 U/L (Normal) Range: 45-117 AST 16 U/L (Normal) Range: 15-37 GLOB 3.1 g/dL (Normal) Range: 2.2-4.2 ALB 3.5 g/dL (Normal) Range: 3.4-5.0 Comments: Please note revised Albumin AND Globulin reference rangeeffective 2017. T PROT 6.6 g/dL (Normal) Range: 6.4-8.2 92-Mrx-843790:39 Prothrombin Time w/INR Comments: [facility] [address] [place], [place], [address] INR 2.4 (Normal) PROTIME 24.9 s (Abnormal) Range: 11.7-14.9 :43 Prothrombin Time w/INR Comments: [address] [place], [place], [phone] INR 2.2 (Normal) PROTIME 23.9 s (Abnormal) Range: 11.7-14.9 :22 CBC W/Diff, Automated Comments: [address] [place], [place], [address] ; OV 9/5 Absolute Lymph 2.11 {X10_3/ul} [...] Range: 4.4-11.0 09-Apr-20179:22 Comprehensive Metabolic Profil Comments: [facility] Umurwmpjhm[address] [place], [place], [address] GAP 7 (Normal) Range: 5-15 CO2 33.0 [...] 70-110 :22 Thyroid Stim Hormone (TSH) Comments: [facility] Uj[address] [place], [phone] TSH 3.52 {uIU/mL} (Normal) Range: 0.358-3.74 :37 Prothrombin Time w/INR Comments: [facility] Msqtahyflq[address] [place], [address] INR 2.1 (Normal) PROTIME 22.4 s (Abnormal) Range: 11.7-14.9 :12 Prothrombin Time w/INR Comments: PT ORDER IS AND T4 IS [facility] Dpiicdpgjy9[address] [place], [phone] INR 2.1 (Normal) PROTIME 23.1 s (Abnormal) Range: 11.7-14.9 73-Wwr-839029:11 T4 Total, Thyroxin Comments: Order Date: 02/19/17Order Info: 3026-2 - *T4 (Total)Comments: Reason:Order Info: 3016-3 - *[facility] J[address]wsrnev[address] [place], [address] T4 THYROXIN 7.2 ug/dL (Normal) Range: 4.8-13.9 98-Qwx-868374:11 Thyroid Stim Hormone (TSH) Comments: Order Date: 02/19/17Order Info: 3026-2 - *T4 (Total)Comments: Reason:Order Info: 3016-3 - *[facility] Scumnpwqme75[address] [place], [phone](977 TSH 1.56 {uIU/mL} (Normal) Range: 0.358-3.74 :37 Prothrombin Time w/INR Comments: [facility] Wolxahqkkr9681 [place], [phone] INR 1.9 (Normal) PROTIME 21.4 s (Abnormal) Range: 11.7-14.9 0-Acc-659644:50 Prothrombin Time w/INR Comments: [facility] Xkdaqeoayb1276 [address] [place], [place], [address]) INR 2.0 (Normal) PROTIME 21.6 s (Abnormal) Range: 11.7-14.9 35-Nvv-923131:37 Prothrombin Time w/INR Comments: [facility] Mxcuvrnfat12[address] [place], [place], [phone](524) INR 2.5 (Normal) PROTIME 25.6 s (Abnormal) Range: 11.7-14.9 16-Ahw-387098:18 Prothrombin Time w/INR Comments: [facility] Bxry[address]ms[address]lo[address] [place], [place], [address](562) INR 2.1 (Normal) PROTIME 22.5 s (Abnormal) Range: 11.7-14.9 00-Fqk-444285:17 Lipid Profile Comments: Order Date: 06/02/16Order Info: 0788- 1 - *Hepatic Function PanelDR.[facility]OVAWE[facility]CHE[facility] LIPID LIVEROrder Date: 06/02/16Order Info: [id number] - *Lipid Profile CC PCPComments: 12 hours fasting, may have wate r.[facility] Kvzgizjbyj[address] [place], [place], [address] VLDL 31 mg/dL (Normal) Range: 5-40 LDL [...] 200-240 mg/dL Borderline >240 mg/dL High Risk 40-Vlg-449713:17 Liver Profile Comments: Order Date: 06/02/16Order Info: 0788- 1 - *Hepatic Function PanelDR.TOVA PTMICHELLE LIPID LIVEROrder Date: 06/02/16Order Info: 13367-7 - *Lipid Profile CC PCPComments: 12 hours fasting, may have mary saulStaceyCoshocton Regional Medical Center Ugq[address]hckrs16[address] [place], [place], [address] D BILI 0.09 mg/dL (Normal) Range: 0.00-0.30 T BILI 0.50 mg/dL (Normal) Range: 0.20-1.00 ALT 28 U/L (Normal) Range: 12-78 ALK P 93 U/L (Normal) Range: 45-117 AST 21 U/L (Normal) Range: 15-37 GLOB 3.4 g/dL (Normal) Range: 2.3-3.5 ALB 4.0 g/dL (Normal) Range: 3.4-5.0 T PROT 7.4 g/dL (Normal) Range: 6.4-8.2 8-Tbo-070977:32 Prothrombin Time w/INR Comments: [facility] L[address]vworoh[address] [place], [place], [address] ; [facility] manages INR 1.8 (Normal) PROTIME 20.2 s (Abnormal) Range: 11.7-14.9 48-Vvw-342071:09 Prothrombin Time w/INR Comments: [facility] Jmxffuzxub6480 [facility] [place], [address] ; [facility] INR 2.1 (Normal) PROTIME 23.1 s (Abnormal) Range: 11.7-14.9 84-Ahk-216611:10 Metabolic Panel, Comprehensive Comments: today; PATIENT NOT FASTINGPERFORMED BY: [facility] Vfmxxa7082 [facility] [id number] ([id number]) ALT (SGPT) 16 [iU]/L (Normal) Range: 0-32 [...] Glucose, Serum 89 mg/dL (Normal) Range: 65-99 49-Lbo-306424:26 Prothrombin Time w/INR Comments: [facility] [address] [place], [address] INR 2.2 (Normal) PROTIME 23.7 s (Abnormal) Range: 11.7-14.9 22-Mut-431498:52 CBC-Complete Blood Cnt No Diff Comments: [facility] [address]uf[address] [place], [place], [address] ; sibilia MPV 10.8 fL (Normal) Range: [...] Range: 4.4-11.0 :58 Prothrombin Time w/INR Comments: [facility] [address] [place], [place], [phone] INR 2.0 (Normal) PROTIME 22.4 s (Abnormal) Range: 11.7-14.9 10-Wzc-686018:49 Prothrombin Time w/INR Comments: [facility] Bhnhxijbts0564 [facility]. [place], [place], [address](167) INR 2.0 (Normal) PROTIME 22.3 s (Abnormal) Range: 11.7-14.9 :54 CBC WITH MANUAL DIFF (82619) Comments: PATIENT NOT FASTINGPERFORMED BY: [facility]CoNew[facility] CenterJzepkj9659 [facility] [id number] Immature Grans (Abs) 0.0 {x10E3/uL} (Normal) Range: [...] 3.77-5.28 WBC 6.2 {x10E3/uL} (Normal) Range: 3.4-10.8 71-Exv-037184:54 Metabolic Panel, Comprehensive Comments: PATIENT NOT FASTINGPERFORMED BY: [facility] Gzvsmb2726 [facility] [id number] (61597) ALT (SGPT) 18 [iU]/L (Normal) Range: 0-32 [...] 86 mg/dL (Normal) Range: 65-99 :54 TSH (65143) Comments: PATIENT NOT FASTINGPERFORMED BY: [facility]Co[facility] CenterGmodsi7613 [facility] [id number] TSH 2.890 {uIU/mL} (Normal) Range: 0.450-4.500 37-Kzt-178675:23 Prothrombin Time w/INR Comments: [facility] U[address]mwammt[address] [place], [address] ; managed by cardio INR 2.6 (Normal) PROTIME 27.4 s (Abnormal) Range: 11.7-14.9 :54 Prothrombin Time w/INR Comments: [facility] [address] [place], [place], [address] ; another doc INR 2.0 (Normal) PROTIME 22.3 s (Abnormal) Range: 11.7-14.9 :53 Lipid Profile Comments: Order Date: 05/22/16OV Order #: [id number] [facility] Hospital Oxtmgrqjvm9857 [address] [place], [place], [address] VLDL 21 mg/dL (Normal) Range: 5-40 LDL [...] Profile Comments: Order Date: 05/22/16OV Order #: [id number] Shelby Hospital Glmmdbdaey1953 [address] [place], [place], [address] D BILI < 0.05 mg/dL (Normal) Range: 0.00-0.30 T BILI 0.30 mg/dL (Normal) Range: 0.20-1.00 ALT 24 U/L (Normal) Range: 12-78 ALK P 82 U/L (Normal) Range: 50-136 AST 19 U/L (Normal) Range: 15-37 Comments: Slight Hemolysis, Result may be falsely increased. GLOB 3.3 g/dL (Normal) Range: 2.3-3.5 ALB 3.6 g/dL (Normal) Range: 3.4-5.0 T PROT 6.9 g/dL (Normal) Range: 6.4-8.2 84-Dym-232511:09 Prothrombin Time w/INR Comments: [facility] Z[address] [place], [place], [address] INR 2.5 (Normal) PROTIME 26.3 s (Abnormal) Range: 11.7-14.9 :59 Prothrombin Time w/INR Comments: [facility] [address]gsan[address] [place], [place], [address] ; managed by cardio INR 2.9 (Normal) PROTIME 29.3 s (Abnormal) Range: 11.7-14.9 :05 Prothrombin Time w/INR Comments: [facility] Vivelscvgx[address] [place], [place], [address] INR 2.0 (Normal) PROTIME 22.3 s (Abnormal) Range: 11.7-14.9 :11 Prothrombin Time w/INR Comments: [facility] [address] [place], [address] INR 2.7 (Normal) Comments: ADDENDA: managed by cardio PROTIME 27.7 s (Abnormal) Range: 11.7-14.9 :14 Prothrombin Time w/INR Comments: [facility] [address] [place], [address] ; managed by Tova INR 2.7 (Normal) PROTIME 28.1 s (Abnormal) Range: 11.7-14.9 :45 Prothrombin Time w/INR Comments: [facility] X[address] [place], [address] ; managed by cardio INR 3.1 (Normal) PROTIME 31.3 s (Abnormal) Range: 11.7-14.9 :27 Prothrombin Time w/INR Comments: [facility] Wy[address] [place], [address] ; managed by cardio INR 3.1 (Normal) PROTIME 31.1 s (Abnormal) Range: 11.7-14.9 :22 Prothrombin Time w/INR Comments: [facility] Nut[address] [place], [address] INR 2.6 (Normal) PROTIME 27.4 s (Abnormal) Range: 11.7-14.9 :08 Prothrombin Time w/INR Comments: [facility] I[address] [place], [address] ; managed with Dr. paz INR 4.1 (Abnormal) Comments: CRITICAL VALUE REPEATED AND VERIFIED. CALLED TO [facility]01/16/16 1251 Elza Hinojosa.RESULTS READ BACK BY SAME . PROTIME 38.2 s (Abnormal) Range: 11.7-14.9 77-Tzy-060199:11 Microscopic Examination Comments: PATIENT WAS FASTINGPERFORMED BY: [email or web address] Fbbkii3302 [facility] [id number] Bacteria None seen (Normal) Mucus Threads Present (Normal) Epithelial Cells (non renal) 0-10 {/hpf} (Normal) Range: 0 - 10 RBC 11-30 {/hpf} (Abnormal) Range: 0 - 2 WBC 0-5 {/hpf} (Normal) Range: 0 - 5 97-Xpu-710207:11 MICROALBUMIN: CREATININE RATIO Comments: PATIENT WAS FASTINGPERFORMED BY: [email or web address] [facility] [id number] (12565) AND (73982) Microalb/Creat Ratio 11.4 {mg/g_creat} (Normal) Range: 0.0-30.0 Microalbumin, Urine 12.1 ug/mL (Normal) Comments: Please note reference interval change Creatinine, Urine 106.3 mg/dL (Normal) Comments: Please note reference interval change :11 URINALYSIS (50609) Comments: PATIENT WAS FASTINGPERFORMED BY: [email or web address] [facility] [id number] Microscopic Examination See below: (Normal) Comments: Microscopic was indicated and was performed. Nitrite, Urine Negative (Normal) Urobilinogen,Semi-Qn 0.2 mg/dL (Normal) Range: 0.2-1.0 Bilirubin Negative (Normal) Occult Blood 2+ (Abnormal) Ketones Negative (Normal) Glucose Negative (Normal) Protein Negative (Normal) WBC Esterase Negative (Normal) Appearance Clear (Normal) Urine-Color Yellow (Normal) pH 7.0 (Normal) Range: 5.0-7.5 Specific [place] 1.018 (Normal) Range: 1.005-1.030 :11 Metabolic Panel, Comments: PATIENT WAS FASTINGPERFORMED BY: [employer] Ggfhjr6272 [facility] [id number] Information: [id number], [id number] Comprehensive (18266) ALT (SGPT) 14 [iU]/L (Normal) Range: 0-32 [...] Glucose, Serum 91 mg/dL (Normal) Range: 65-99 78-Lzu-310485:11 TSH (23778) Comments: PATIENT WAS FASTINGPERFORMED BY: [facility] CenterGijozq1737 [facility] [id number] TSH 2.260 {uIU/mL} (Normal) Range: 0.450-4.500 :17 Prothrombin Time w/INR Comments: [facility] [address] [place], [place], [address] INR 2.8 (Normal) PROTIME 28.4 s (Abnormal) Range: 11.7-14.9 54-Evq-84493:40 Lipid Profile Comments: [facility] Dvvacyxrpa6367 [facility] [place], [address] VLDL 22 mg/dL (Normal) Range: [...] mg/dL High Risk :40 Liver Profile Comments: [facility] [address]heiqp25[address] [place], [address] D BILI 0.10 mg/dL (Normal) Range: 0.00-0.30 T BILI 0.60 mg/dL (Normal) Range: 0.20-1.00 ALT 26 U/L (Normal) Range: 12-78 ALK P 86 U/L (Normal) Range: 50-136 AST 20 U/L (Normal) Range: 15-37 GLOB 3.4 g/dL (Normal) Range: 2.3-3.5 ALB 3.9 g/dL (Normal) Range: 3.4-5.0 T PROT 7.3 g/dL (Normal) Range: 6.4-8.2 :26 Prothrombin Time w/INR Comments: [facility] Curt[address] [place], [address] INR 2.6 (Normal) Comments: ADDENDA: handled by cardio PROTIME 27.3 s (Abnormal) Range: 11.7-14.9 :40 Prothrombin Time w/INR Comments: [facility] Zbbiqwgszw3154 [place], [address] INR 2.4 (Normal) PROTIME 26.4 s (Abnormal) Range: 11.7-14.9 :03 Prothrombin Time w/INR Comments: [facility] Sdajdwruni4984 [place], [address] ; per pop up in EMR cardio manages INR INR 2.2 (Normal) PROTIME 24.5 s (Abnormal) Range: 11.7-14.9 :51 Prothrombin Time w/INR Comments: [facility] S[address] [place], [phone] INR 1.6 (Normal) PROTIME 19.0 s (Abnormal) Range: 11.7-14.9 Comments: ADDENDA: managed by cardio 2-Luq-969929:33 Prothrombin Time w/INR Comments: [facility] Onmcx[address] [place], [address] ; handled by cardio INR 2.1 (Normal) PROTIME 24.0 s (Abnormal) Range: 11.7-14.9 17-Npq-817873:02 Prothrombin Time w/INR Comments: [facility] U[address] [place], [address] INR 2.2 (Normal) PROTIME 24.1 s (Abnormal) Range: 11.7-14.9 17-Uze-503227:37 Prothrombin Time w/INR Comments: [facility] Q[address] [place], [address] INR 2.5 (Normal) PROTIME 26.7 s (Abnormal) Range: 11.7-14.9 :44 Prothrombin Time w/INR Comments: [facility] Op[address]su[address] [place], [address] INR 2.2 (Normal) PROTIME 24.6 s (Abnormal) Range: 11.7-14.9 16-Vzg-522898:15 Prothrombin Time w/INR Comments: [facility] [address] [place], [address] INR 1.6 (Normal) PROTIME 19.4 s (Abnormal) Range: 11.7-14.9 :36 Prothrombin Time w/INR Comments: [facility] [address]yur[address] [place], [address] INR 1.2 (Normal) PROTIME 15.3 s (Abnormal) Range: 11.7-14.9 :02 Prothrombin Time w/INR Comments: [facility] Qbgzipunmw0849 [address] [place], [place], [address] INR 2.7 (Normal) PROTIME 29.0 s (Abnormal) Range: 11.7-14.9 :47 Lipid Profile Comments: [facility] Mkdwsmjitb0811 [address] [place], [address] VLDL 20 mg/dL (Normal) Range: 5-40 LDL [...] mg/dL High Risk :47 Liver Profile Comments: [facility] Ugykqbrrqq1849 [address] [place], [place], [address] D BILI 0.09 mg/dL (Normal) Range: 0.00-0.30 T BILI 0.40 mg/dL (Normal) Range: 0.20-1.00 ALT 26 U/L (Normal) Range: 12-78 ALK P 86 U/L (Normal) Range: 50-136 AST 24 U/L (Normal) Range: 15-37 GLOB 3.3 g/dL (Normal) Range: 2.3-3.5 ALB 4.0 g/dL (Normal) Range: 3.4-5.0 T PROT 7.3 g/dL (Normal) Range: 6.4-8.2 1-Idn-974790:11 CBC, Platelets & Auto Diff Comments: PATIENT NOT FASTINGPERFORMED BY: [facility] Ylktct2955 [facility] [id number] Information: [id number] (70708) Immature Grans (Abs) 0.0 {x10E3/uL} (Normal) Range: [...] 3.77-5.28 WBC 6.2 {x10E3/uL} (Normal) Range: 3.4-10.8 6-Sbq-487698:11 CALCIFEDIOL (73546) Comments: PATIENT NOT FASTINGPERFORMED BY: [facility] CenterLyukxs9225 [facility] [id number] Vitamin D, 25-Hydroxy 38.9 ng/mL (Normal) Range: 30.0-100.0 Comments: Vitamin D deficiency has been defined by the [place] of[place]icine and an Endocrine Society practice guideline as alevel of serum 25-OH vitamin D less than 20 ng/mL (1,2).The Endocrine Society went on to further define vitamin Dinsufficiency as a level between 21 and 29 ng/mL (2).1. IOM ([place] of [employer]). 2010. Dietary reference intakes for calcium and D. [place]: The National Academies Press.2. Roberto MF, Brody OCHOA, Maribell CADENA, et al. Evaluation, treatment, and prevention of vitamin D deficiency: an Endocrine Society clinical practice guideline. JCEM. 2010; 96(7):1911-30. 6-Mrj-633299:11 VITAMIN B12 AND FOLATES Comments: PATIENT NOT FASTINGPERFORMED BY: [employer] Piohpz5519 [facility] [id number] ([id number]) Folate (Folic Acid), Serum 10.4 ng/mL (Normal) Comments: A serum folate concentration of less than 3.1 ng/mL isconsidered to represent clinical deficiency. Vitamin B12 1651 pg/mL (Abnormal) Range: 211-946 3-Dyy-867439:11 Metabolic Panel, Comprehensive Comments: PATIENT NOT FASTINGPERFORMED BY: [employer] Qauxtq9114 [facility] [id number] (32148) ALT (SGPT) 15 [iU]/L (Normal) Range: 0-32 [...] Range: 65-99 :53 Prothrombin Time w/INR Comments: [facility] [address] [place], [address] INR 1.9 (Normal) PROTIME 22.0 s (Abnormal) Range: 11.7-14.9 62-Oqx-298064:40 Prothrombin Time w/INR Comments: Test performed at:[facility] [address] [place] [address] INR 1.3 (Normal) PROTIME 16.3 s (Abnormal) Range: 11.7-14.9 :03 Prothrombin Time w/INR Comments: Test performed at:[facility] Qvnbqwmhoa0330 [facility] [place] [address] INR 1.7 (Normal) PROTIME 20.4 s (Abnormal) Range: 11.7-14.9 1-Wtz-190362:26 Prothrombin Time w/INR Comments: Test performed at:[facility] [address] [place] [address] INR 1.2 (Normal) Comments: ADDENDA: managed by dr paz PROTIME 15.8 s (Abnormal) Range: 11.7-14.9 84-Hej-792088:28 Prothrombin Time w/INR Comments: Test performed at:[facility] [address] [place] [address] INR 1.2 (Normal) PROTIME 15.8 s (Abnormal) Range: 11.7-14.9 :54 Prothrombin Time w/INR Comments: Test performed at:[facility] [address] [place] [address] INR 2.5 (Normal) PROTIME 27.3 s (Abnormal) Range: 11.7-14.9 :16 Prothrombin Time w/INR Comments: Test performed at:[facility] [address]urdfi[address] [place] [address] INR 2.0 (Normal) PROTIME 23.2 s (Abnormal) Range: 11.7-14.9 05-Qgr-687460:29 Prothrombin Time w/INR Comments: Test performed at:[facility] [address]fjzomon4[address] [place] [address] INR 2.8 (Normal) PROTIME 29.3 s (Abnormal) Range: 11.7-14.9 57-Viv-148134:06 Prothrombin Time w/INR Comments: Test performed at:[facility] Fcizcxjgzy6518 [place] [address] ; Dr Bella manages INR 2.1 (Normal) PROTIME 24.0 s (Abnormal) Range: 11.7-14.9 :45 Prothrombin Time w/INR Comments: Test performed at:[facility] [address] [place] [address] ; ordered by another INR 1.3 (Normal) PROTIME 16.5 s (Abnormal) Range: 11.7-14.9 :00 Prothrombin Time w/INR Comments: Test performed at:[facility] [address] [place] [address] INR 0.9 (Normal) PROTIME 12.7 s (Normal) Range: 11.7-14.9 :05 Vitamin B12 and Folate Comments: PATIENT NOT FASTINGPERFORMED BY: [facility]CoNew[facility] CenterSesiip4728 [facility] [id number] Information: [id number] Folate (Folic Acid), 7.8 ng/mL (Normal) Comments: A serum folate concentration of less than 3.1 ng/mL isconsidered to represent clinical deficiency. Serum Vitamin B12 1883 pg/mL Range: 211-946 (Abnormal) : Vitamin D, 42.8 ng/mL (Normal) Comments: PATIENT NOT FASTINGPERFORMED BY: [facility] Aoyhlg6943 [facility] [id number] 05 25-Hydroxy Range: 30.0-100.0 Comments: Vitamin D deficiency has been defined by the [place] [employer] and an Endocrine Society practice guideline as alevel of serum 25-OH vitamin D less than 20 ng/mL (1,2).The Endocrine Society went on to further define vitamin Dinsufficiency as a level between 21 and 29 ng/mL (2).1. IOM ([place] [employer]). 2010. Dietary reference intakes for calcium and D. [place]: The National Academies Press.2. Roberto MF, Brody [place], Maribell CADENA, et al. Evaluation, treatment, and prevention of vitamin D deficiency: an Endocrine Society clinical practice guideline. JCEM. 2010; 96(7):1911-30. [id number] CBC W/Diff, Automated Comments: Test performed at:[facility] [id number] [place], [place] [address] Absolute Lymph 2.41 {X10_3/ul} (Normal) Range: 0.83-4.51 [...] 4.2-5.4 WBC 6.5 K/mm3 (Normal) Range: 4.4-11.0 [id number] Basic Metabolic Profile (BMP) Comments: Test performed at:[facility] [id number] [facility] [address] [place], [place] [phone] GAP 4 (Abnormal) Range: 5-15 CO2 33.0 mmol/L (Abnormal) Range: 21.0-32.0 CL 103 mmol/L (Normal) Range: 98-107 K 4.8 mmol/L (Normal) Range: 3.5-5.1 NA 140 mmol/L (Normal) Range: 136-145 CA 8.8 mg/dL (Normal) Range: 8.5-10.1 BUN/CRE 25.8 {RATIO} (Abnormal) Range: 10-20 CREAT,SERUM 1.2 mg/dL (Abnormal) Range: 0.6-1.0 BUN 31 mg/dL (Abnormal) Range: 7-18 GLU 108 mg/dL (Normal) Range: 70-110 [id number] Basic Metabolic Profile (BMP) Comments: Test performed at:[facility] [address] [facility] [address]. [place], [place] [address] GAP 4 (Abnormal) Range: 5-15 CO2 28.0 mmol/L (Normal) Range: 21.0-32.0 CL 106 mmol/L (Normal) Range: 98-107 K 4.3 mmol/L (Normal) Range: 3.5-5.1 NA 138 mmol/L (Normal) Range: 136-145 CA 8.8 mg/dL (Normal) Range: 8.5-10.1 BUN/CRE 26.0 {RATIO} (Abnormal) Range: 10-20 CREAT,SERUM 1.0 mg/dL (Normal) Range: 0.6-1.0 BUN 26 mg/dL (Abnormal) Range: 7-18 GLU 93 mg/dL (Normal) Range: 70-110 60-Tnr-901968:45 CBC W/Diff, Automated Comments: Test performed at:[facility] [address] [place] [address] Absolute Lymph 2.60 {X10_3/ul} (Normal) [...] 4.2-5.4 WBC 6.5 K/mm3 (Normal) Range: 4.4-11.0 99-Gnv-101381:07 Lipid Profile Comments: Specimen slightly hemolyzed. Results may be affected.Test performed at:[facility] [address] [place] [address] VLDL 19 mg/dL (Normal) Range: [...] 200-240 mg/dL Borderline >240 mg/dL High Risk 56-Rne-280896:07 Liver Profile Comments: Specimen slightly hemolyzed. Results may be affected.Test performed at:[facility] W[address] Patricia Stewart[place], [place] [address] D BILI < 0.05 mg/dL (Normal) Range: [...] CHOL 226 mg/dL (Abnormal) Comments: <200 mg/dL Zcqfupobb155-886 mg/dL Borderline>240 mg/dL High Risk :47 LIVER [...] :47 TSH 3.05 {uIU/mL} (Normal) Range: 0.358-3.74 36-Vxy-017749:00 LORNA CULTURE-OTHER (22768) Comments: PATIENT NOT FASTINGPERFORMED BY: [facility] CenterXnuznl1499 [facility] [id number] Information: SRC:THRT [id number] Result 1 RRF (Normal) Comments: Routine respiratory jesus Upper Respiratory Culture Final report (Normal) 74-Esf-85202:21 Rapid Strep Test, Office (81050) Rapid Strep Test, Office Negative (Normal) 36-Gzf-46199:00 BILAT SCRN DIGITAL & CAD Radiology Report [...] Jones M.D.January 04, 2013 at 10:41:52 AM [id number] Signed GP/GP If you are the referring physician and would like to consult with theradiologist who provided this interpretation, please contact Ne Huang at [phone]. If this radiologist is unavailable, youwill be directed to another radiologist to assist. If you are a patient with a question regarding this report, pleasecontactyour referring physician directly. Professional Interpretation Provided By: [employer], Phone , These documents contain legally protected [...] 01/04/13 1044 Sign by: Henry Jones MD 6-Vps-667129:19 Hepatic Function Panel Comments: PATIENT WAS FASTINGPERFORMED BY: [facility] CenterTvrlpe2546 [facility] [id number] Information: [id number] (7) ALT (SGPT) 23 [iU]/L (Normal) Range: 0-32 AST (SGOT) 21 [iU]/L (Normal) Range: 0-40 Alkaline Phosphatase, S 74 [iU]/L (Normal) Range: 25-165 Bilirubin, Direct 0.10 mg/dL Range: 0.00-0.40 (Normal) Albumin, Serum 4.3 g/dL (Normal) Range: 3.5-4.8 Bilirubin, Total 0.3 mg/dL (Normal) Range: 0.0-1.2 Protein, Total, Serum 6.7 g/dL (Normal) Range: 6.0-8.5 Written Authorization WAR (Normal) Comments: PATIENT WAS FASTINGPERFORMED BY: [facility]6370 [facility] [id number] :19 Comments: Written Authorization Received.Authorization received from DR BRO 21-14-4024Xiajtd by Rachelle Porter :19 Metabolic Panel, Comprehensive Comments: PATIENT WAS FASTINGPERFORMED BY: [facility]6370 [facility] [id number] (67960) ALT (SGPT) 22 [iU]/L (Normal) Range: 0-32 [...] Glucose, Serum 89 mg/dL (Normal) Range: 65-99 5-Jns-285595:19 CBC with manual diff Comments: PATIENT WAS FASTINGPERFORMED BY: ZAINAB [employer] [facility] [id number] Information: [id number] (82726) Immature Grans (Abs) 0.0 {x10E3/uL} (Normal) Range: [...] 3.77-5.28 WBC 4.6 {x10E3/uL} (Normal) Range: 4.0-10.5 9-Djf-309534:19 Lipid Panel (79718) Comments: PATIENT WAS FASTINGPERFORMED BY: ZAINAB [employer] Ikkwoa7608 [facility] [id number] LDL/HDL Ratio 1.3 {ratio_units} (Normal) Range: 0.0-3.2 Cholesterol, Total 153 mg/dL (Normal) Range: 100-199 HDL Cholesterol 60 mg/dL (Normal) Comments: According to ATP-III Guidelines, HDL-C >59 mg/dL is considered anegative risk factor for CHD. LDL Cholesterol Calc 80 mg/dL (Normal) Range: 0-99 Triglycerides 65 mg/dL (Normal) Range: 0-149 VLDL Cholesterol Hector 13 mg/dL (Normal) Range: 5-40 6-Zmq-791106:19 TSH (16785) Comments: PATIENT WAS FASTINGPERFORMED BY: [employer] [facility] [id number] TSH 2.650 {uIU/mL} (Normal) Range: 0.450-4.500 69-Vzx-858705:14 Urinalysis, Office (10210) UA - BILIRUBIN Negative (Normal) UA - BLOOD Hemolyzed Small (Normal) UA - GLUCOSE Negative (Normal) UA - KETONES Negative mg/dL (Normal) UA - LEUKOCYTE ESTERASE Negative (Normal) UA - NITRITE Negative (Normal) UA - PH 7.0 (Normal) UA - PROTEIN Negative mg/dL (Normal) UA - SPECIFIC GRAVITY 1.015 (Normal) URINE UROBILINGN REYNA TIMED Normal mg/dL (Normal) 55-Guu-606494:10 TSH (THYROID STIMULATING Comments: PATIENT WAS FASTINGPERFORMED BY: [employer] Meet Edquji4059 [facility] [id number] HORMONE) (30283) TSH 2.500 {uIU/mL} (Normal) Range: 0.450-4.500 08-Idw-042835:10 CALCIFEDIOL (39511) Comments: PATIENT WAS FASTINGPERFORMED BY: [employer] Meet Foonrw7437 [facility] [id number] Vitamin D, 25-Hydroxy 48.1 ng/mL (Normal) Range: 30.0-100.0 Comments: Vitamin D deficiency has been defined by the [place] of[place]icine and an Endocrine Society practice guideline as alevel of serum 25-OH vitamin D less than 20 ng/mL (1,2).The Endocrine Society went on to further define vitamin Dinsufficiency as a level between 21 and 29 ng/mL (2).1. IOM ([place] of [employer]). 2010. Dietary reference intakes for calcium and D. [place]: The National Academies Press.2. Roberto MF, Brody OCHOA, Maribell CADENA, et al. Evaluation, treatment, and prevention of vitamin D deficiency: an Endocrine Society clinical practice guideline. JCEM. 2010; 96(7):1911-30. 56-Kxw-809958:10 Lipid Panel (42756) Comments: PATIENT WAS FASTINGPERFORMED BY: Be Spotted6370 [facility] [id number] LDL/HDL Ratio 2.3 {ratio_units} (Normal) Range: 0.0-3.2 [...] FUNCTION PANEL Comments: PATIENT WAS FASTINGPERFORMED BY: [employer] Gezgyc3277 [facility] [id number] Information: [id number] (68638) ALT (SGPT) 21 [iU]/L (Normal) Range: 0-40 AST (SGOT) 20 [iU]/L (Normal) Range: 0-40 Alkaline Phosphatase, S 75 [iU]/L (Normal) Range: 25-165 Bilirubin, Direct 0.09 mg/dL (Normal) Range: 0.00-0.40 Albumin, Serum 4.0 g/dL (Normal) Range: 3.5-4.8 Bilirubin, Total 0.3 mg/dL (Normal) Range: 0.0-1.2 Protein, Total, Serum 6.5 g/dL (Normal) Range: 6.0-8.5 35-Yap-225501:41 TSH (15486) Comments: PATIENT NOT FASTINGPERFORMED BY: [facility]6370 [facility] [id number] Information: [id number] TSH 3.750 {uIU/mL} (Normal) Range: 0.450-4.500 :39 Prothrombin Time (PT) Comments: PERFORMED BY: [address] [id number] Prothrombin Time 39.0 {sec} (Abnormal) Range: 8.7-11.5 INR 3.6 (Abnormal) Range: 0.8-1.2 Comments: Client Requested Flag Reference interval is for non- anticoagulated patients. . Suggested INR therapeutic ra nge for Vitamin K antagonist therapy: Standard Dose (moderate intensity therapeutic range): 2.0 - 3.0 Higher intensity therapeutic range 2.5 - 3.5 :26 PT (PROTHROMBIN TIME) Comments: PATIENT NOT FASTINGPERFORMED BY: [place] [address]24770 [facility] [id number] Information: [id number] CC:[id number] (77093) Prothrombin Time 54.3 {sec} (Abnormal) Range: 8.7-11.5 [...] (Activated Partial Comments: PATIENT NOT FASTINGPERFORMED BY: [place] 3424770 [facility] [id number] Thromboplastin Time) (65107) aPTT 39 {sec} (Abnormal) Range: 24-33 Comments: This test has not been validated for monitoring unfractionated heparintherapy. aPTT-based therapeutic ranges for unfractionated heparintherapy have not been established. For general guidelines onHeparin monitoring, refer to the [facility] Directory of Services. :51 PT (Prothrobim Time) Comments: PATIENT NOT FASTINGPERFORMED BY: [place] [address]24770 [facility] [id number] Information: [id number] CC:[id number] (88747) Prothrombin Time 26.1 {sec} (Abnormal) Range: 8.7-11.5 INR 2.4 (Abnormal) Range: 0.8-1.2 Comments: Reference interval is for non-anticoagulated patients. . Suggested INR therapeutic range for Vitamin K anta gonist therapy: Standard Dose (moderate intensity therapeutic range): 2.0 - 3.0 Higher intensity therapeutic range 2.5 - 3.5 :43 HEPATIC FUNCTION PANEL Comments: PATIENT NOT FASTINGPERFORMED BY: [address] [id number] Information: [id number] (51192) ALT (SGPT) 25 [iU]/L (Normal) Range: 0-40 AST (SGOT) 19 [iU]/L (Normal) Range: 0-40 Alkaline Phosphatase, S 73 [iU]/L (Normal) Range: 25-165 Albumin, Serum 4.4 g/dL (Normal) Range: 3.5-4.8 Bilirubin, Direct 0.09 mg/dL (Normal) Range: 0.00-0.40 Bilirubin, Total 0.3 mg/dL (Normal) Range: 0.0-1.2 Protein, Total, Serum 6.4 g/dL (Normal) Range: 6.0-8.5 :18 Lipid Panel (54441) Comments: PATIENT NOT FASTINGPERFORMED BY: [place] [address]70 [facility] [id number] LDL/HDL Ratio 1.3 {ratio_units} (Normal) Range: 0.0-3.2 [...] FUNCTION PANEL Comments: PATIENT NOT FASTINGPERFORMED BY: Be Spotted6370 [facility] [id number] Information: [id number] (44821) ALT (SGPT) 60 [iU]/L (Abnormal) Range: 0-40 Alkaline Phosphatase, S 66 [iU]/L (Normal) Range: 25-165 AST (SGOT) 43 [iU]/L (Abnormal) Range: 0-40 Albumin, Serum 4.3 g/dL (Normal) Range: 3.5-4.8 Bilirubin, Direct 0.10 mg/dL (Normal) Range: 0.00-0.40 Bilirubin, Total 0.3 mg/dL (Normal) Range: 0.0-1.2 Protein, Total, Serum 6.7 g/dL (Normal) Range: 6.0-8.5 :18 CALCIFEDIOL (19134) Comments: PATIENT NOT FASTINGPERFORMED BY: [email or web address] Xlogzx2861 [facility] [id number] Vitamin D, 25-Hydroxy 57.3 ng/mL (Normal) Range: 32.0-100.0 Comments: Recent studies consider the lower limit of 32.0 ng/mL to be athreshold for optimal health.Baljit HOWELL. J Nutr. 2004;135(2):317-22. 6-Rzq-929616:49 Urinalysis, Office (62225) UA - BILIRUBIN Negative (Normal) UA - BLOOD Hemolyzed Moderate (Normal) UA - GLUCOSE Negative (Normal) UA - KETONES Negative mg/dL (Normal) UA - LEUKOCYTE ESTERASE Negative (Normal) UA - NITRITE Negative (Normal) UA - PH 7.5 (Normal) UA - PROTEIN Negative mg/dL (Normal) UA - SPECIFIC GRAVITY 1.015 (Normal) URINE UROBILINGN REYNA TIMED Normal mg/dL (Normal) 60-Gli-349270:38 Urinalysis, Office (70123) UA - BILIRUBIN Negative (Normal) UA - [...] Panel, Basic Comments: PATIENT NOT FASTINGPERFORMED BY: [address] SurvivalCoNewark [facility] Medical CenterKudnwg1577 [facility] [id number] Information: [id number] (45324) Calcium, Serum 9.6 mg/dL (Normal) Range: 8.6-10.2 [...] CULTURE-REYNA COL Comments: PATIENT NOT FASTINGPERFORMED BY: [facility] CenterIkemvc0266 [facility] [id number] Information: SRC:UR [id number] COUNT (43985) Result 1 NG36 (Normal) Comments: No growth in 36 - 48 hours. Urine Culture,Comprehensive Final report (Normal) :29 Urinalysis, Office (15291) UA - BILIRUBIN Negative (Normal) UA - BLOOD Non Hemolyzed Moderate (Normal) UA - GLUCOSE Negative (Normal) UA - KETONES Negative mg/dL (Normal) UA - LEUKOCYTE ESTERASE Trace (Normal) UA - NITRITE Negative (Normal) UA - PH 6.0 (Normal) UA - PROTEIN Negative mg/dL (Normal) UA - SPECIFIC GRAVITY 1.020 (Normal) URINE UROBILINGN REYNA TIMED Normal mg/dL (Normal) 29-Pkv-438446:44 Microscopic Examination Comments: PATIENT WAS FASTINGPERFORMED BY: [facility]MatcherAt[facility] [id number] Bacteria Few (Normal) Mucus Threads Present (Normal) Epithelial Cells (non renal) 0-10 {/hpf} (Normal) Range: 0 - 10 RBC 0-3 {/hpf} (Normal) Range: 0 - 3 WBC 0-5 {/hpf} (Normal) Range: 0 - 5 63-Zuq-002768:44 CALCIFIDIOL (50846) VIT D 25 Comments: PATIENT WAS FASTINGPERFORMED BY: Be Spotted6370 [employer] [id number] Vitamin D, 25-Hydroxy 28.6 ng/mL (Abnormal) Range: 32.0-100.0 Comments: Recent studies consider the lower limit of 32.0 ng/mL to be athreshold for optimal health.Baljit HOWELL. J Nutr. 2004;135(2):317-22. 05-Ugp-580585:44 Folate (78554) Comments: PATIENT WAS FASTINGPERFORMED BY: [employer]70 [employer] [id number] Folate (Folic Acid), Serum 12.2 ng/mL (Normal) Comments: Indeterminate: 2.2 - 3.0 Deficient: <2.2 18-Eds-979759:44 VITAMIN B-12 (CYANOCOBALAMIN) Comments: PATIENT WAS FASTINGPERFORMED BY: [facility] [id number] (91771) Vitamin B12 351 pg/mL (Normal) Range: 211-946 30-Eim-813824:44 SED RATE ERYTHROCYTE (21870) Comments: PATIENT WAS FASTINGPERFORMED BY: [facility]6370 [facility] [id number] Sedimentation Rate-Westergren 2 mm/h (Normal) Range: 0-30 96-Yai-107853:44 RHEUMATOID FACTOR-QUANT (00332) Comments: PATIENT WAS FASTINGPERFORMED BY: [facility]6370 [facility] [id number] RA Latex Turbid. 10.5 {IU/mL} (Normal) Range: 0.0-13.9 93-Ccj-583109:44 C-REACTIVE PROTEIN (51126) Comments: PATIENT WAS FASTINGPERFORMED BY: [address] [id number] C-Reactive Protein, Quant 0.9 mg/L (Normal) Range: 0.0-4.9 :44 JOANNA (ANTINUCLEAR ANTIBODY) Comments: PATIENT WAS FASTINGPERFORMED BY: [address] [id number] (61726) JOANNA Direct Negative (Normal) 49-Ktv-319891:44 LIPID PANEL (51726) Comments: PATIENT WAS FASTINGPERFORMED BY: [facility]6370 [facility] [id number] LDL Cholesterol Calc 140 mg/dL (Abnormal) Range: 0-99 LDL/HDL Ratio 1.8 {ratio_units} (Normal) Range: 0.0-3.2 HDL Cholesterol 77 mg/dL (Normal) Comments: According to ATP-III Guidelines, HDL-C >59 mg/dL is considered anegative risk factor for CHD. VLDL Cholesterol Hector 19 mg/dL (Normal) Range: 5-40 Triglycerides 97 mg/dL (Normal) Range: 0-149 Cholesterol, Total 236 mg/dL (Abnormal) Range: 100-199 71-Evk-890357:44 TSH (69570) Comments: PATIENT WAS FASTINGPERFORMED BY: [facility]6370 [facility] [id number] TSH 1.670 {uIU/mL} (Normal) Range: 0.450-4.500 89-Fvf-810477:44 URINALYSIS, W/ MICRO (20276) Comments: PATIENT WAS FASTINGPERFORMED BY: [facility]6370 [facility] [id number] Microscopic Examination See below: (Normal) Bilirubin Negative (Normal) Ketones Negative (Normal) Nitrite, Urine Negative (Normal) Occult Blood 1+ (Abnormal) Urobilinogen,Semi-Qn 0.2 mg/dL (Normal) Range: 0.0-1.9 Glucose Negative (Normal) Protein Negative (Normal) Appearance Clear (Normal) pH 7.0 (Normal) Range: 5.0-7.5 Urine-Color Yellow (Normal) WBC Esterase Negative (Normal) Specific [place] 1.016 (Normal) Range: 1.005-1.030 :44 MICROALBUMIN: CREATININE RATIO Comments: PATIENT WAS FASTINGPERFORMED BY: [facility]6370 [facility] [id number] (67701) AND (28147) Microalb/Creat Ratio 2.8 {mg/g_creat} (Normal) Range: 0.0-30.0 Creatinine, Urine 61.0 mg/dL (Normal) Range: 15.0-278.0 Microalbumin, Urine 1.7 ug/mL (Normal) Range: 0.0-17.0 96-Hgo-551038:44 METABOLIC PANEL, COMPREHENSIVE Comments: PATIENT WAS FASTINGPERFORMED BY: [facility]6370 [facility] [id number] (66881) ALT (SGPT) 16 [iU]/L (Normal) Range: 0-40 [...] Glucose, Serum 92 mg/dL (Normal) Range: 65-99 58-Wvx-670079:44 CBC WITH MANUAL DIFF Comments: PATIENT WAS FASTINGPERFORMED BY: [facility]6370 [facility] [id number] Information: [id number] (28283) Immature Grans (Abs) 0.0 {x10E3/uL} (Normal) Range: [...] 3.80-5.10 WBC 6.1 {x10E3/uL} (Normal) Range: 4.0-10.5 09-Fgh-665682:11 BILAT SCRN DIGITAL & CAD Radiology Report See Note (Normal) Comments: Exam Number: [id number] MAMMOGRAPHY - BILATERAL SCREENING INDICATION:Routine annual screening [...] of attaching a ResultCode to this exam.ADDENDUM: [id number] HPBI/MDS Reported By: ELEANOR ERNANDEZ M.D. 0-Uzb-753759:01 TSH (20784) Comments: PATIENT NOT FASTINGPERFORMED BY: [facility]Co[facility] CenterBjkwfg2123 [facility] [id number] Information: [id number] TSH 0.474 {uIU/mL} (Normal) Range: 0.450-4.500 16-Apr-20108:21 Thin prep Pap (56390) Comments: of cuff, has had hysterectomy; Source.............VaginalLMP / Prev Treat...HystNo. 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 Reported By: SAVANA AVELAR M.D. 5-Srj-523894:44 Urinalysis, Office (82718) UA - LEUKOCYTE ESTERASE Negative (Normal) UA - NITRITE Negative (Normal) URINE UROBILINGN REYNA TIMED Normal mg/dL (Normal) UA - PROTEIN Negative mg/dL (Normal) UA - PH 6.5 (Normal) UA - BLOOD Hemolyzed Trace (Normal) UA - SPECIFIC GRAVITY 1.010 (Normal) UA - KETONES Negative mg/dL (Normal) UA - BILIRUBIN Negative (Normal) UA - GLUCOSE Negative (Normal) 04-Log-714985:45 KIDNEY (HP) Radiology Report See Note (Normal) Comments: Exam Number: [id number] CLINICAL:The patient is a 69-year-old female who [...] no hydronephrosis Reported By: ELEANOR ERNANDEZ M.D. 69-Anw-222169:14 BMP BUN/CRE 17.8 {RATIO} (Normal) Range: 10-20 [...] (Normal) GLU 90 mg/dL (Normal) Range: 70-110 27-Pvr-128296:52 Iron and TIBC Comments: PATIENT NOT FASTINGPERFORMED BY: [facility]70 [facility] [id number] Iron Saturation 21 % (Normal) Range: 15-55 Iron, Serum 55 ug/dL (Normal) Range: 35-155 UIBC 202 ug/dL (Normal) Range: 150-375 Iron Bind.Cap.(TIBC) 257 ug/dL (Normal) Range: 250-450 88-Pet-558305:52 Renal function Panel (31967) Comments: PATIENT NOT FASTINGPERFORMED BY: [employer]70 [facility] [id number] Albumin, Serum 3.7 g/dL (Normal) Range: 3.5-4.8 [...] Glucose, Serum 91 mg/dL (Normal) Range: 65-99 36-Lnl-236414:52 Ferritin (24382) Comments: PATIENT NOT FASTINGPERFORMED BY: [email or web address] LabCoNew[facility] CenterDvphny1036 [facility] [id number] Ferritin, Serum 338 ng/mL (Abnormal) Range: 13-150 73-Xhj-064084:52 CBC with manual diff Comments: PATIENT NOT FASTINGPERFORMED BY: [facility]Co[facility] CenterZwthsd3079 [facility] [id number] Information: [id number] (19034) Baso (Absolute) 0.0 {x10E3/uL} (Normal) Range: 0.0-0.2 [...] 3.80-5.10 WBC 7.9 {x10E3/uL} (Normal) Range: 4.0-10.5 42-Eqb-007421:20 TSH (15838) Comments: PATIENT NOT FASTINGPERFORMED BY: [facility]6370 [facility] [id number] TSH 0.830 {uIU/mL} (Normal) Range: 0.450-4.500 38-Zyj-095819:20 CBC with manual diff Comments: PATIENT NOT FASTINGPERFORMED BY: [place] 3424770 [facility] [id number] Information: [id number] (08636) Hematology Comments: Note: (Normal) Comments: Verified by [...] 3.80-5.10 WBC 21.6 {x10E3/uL} (Abnormal) Range: 4.0-10.5 02-Cls-061151:58 Serum Protein Comments: PATIENT NOT FASTINGPERFORMED BY: [facility]6370 [facility] [id number] Information: ADD [id number] NO DRAW FEE Electrophoresis (SPEP) (70102) A/G Ratio 1.6 (Normal) Range: 0.7-2.0 Please note: SPR (Normal) Comments: Protein electrophoresis scan will follow via computer, mail, orcourier delivery. Prgog-1-Qtkuyfex 0.2 g/dL (Normal) Range: 0.1-0.4 Fqtan-8-Yteigpjm 0.6 g/dL (Normal) Range: 0.4-1.2 Beta Globulin 0.9 g/dL (Normal) Range: 0.6-1.3 Gamma Globulin 0.9 g/dL (Normal) Range: 0.5-1.6 Globulin, Total 2.6 g/dL (Normal) Range: 2.0-4.5 M-Slim Not Observed g/dL (Normal) Albumin 4.2 g/dL (Normal) Range: 3.2-5.6 Protein, Total, Serum 6.8 g/dL (Normal) Range: 6.0-8.5 :58 VITAMIN B-12 (CYANOCOBALAMIN) Comments: PATIENT NOT FASTINGPERFORMED BY: Be [employer]6370 [employer] [id number] (83525) Vitamin B12 300 pg/mL (Normal) Range: 211-911 :58 SED RATE ERYTHROCYTE (68245) Comments: PATIENT NOT FASTINGPERFORMED BY: [email or web address] Oieovw1918 [employer] [id number] Sedimentation Rate-Westergren 2 mm/h (Normal) Range: 0-30 :20 CBC With Differential/Platelet Comments: PATIENT WAS FASTINGPERFORMED BY: [email or web address] Aasyet3634 [employer] [id number] Baso (Absolute) 0.1 {x10E3/uL} (Normal) Range: 0.0-0.2 [...] 3.80-5.10 WBC 5.4 {x10E3/uL} (Normal) Range: 4.0-10.5 37-Gly-334999:20 Comp. Metabolic Panel (14) Comments: PATIENT WAS FASTINGPERFORMED BY: [facility]Co[facility] CenterVnovlf6152 [facility] [id number] ALT (SGPT) 19 [iU]/L (Normal) Range: 0-40 [...] Glucose, Serum 95 mg/dL (Normal) Range: 65-99 02-Qbb-449986:20 Lipid Panel With LDL/HDL Comments: PATIENT WAS FASTINGPERFORMED BY: Mix & MeetNewark [facility] Medical CenterRuimgn7827 [facility] [id number] Ratio HDL Cholesterol 66 mg/dL (Normal) Comments: [...] 1.050 {uIU/mL} Comments: PATIENT WAS FASTINGPERFORMED BY: Mix & MeetNewark [facility] Medical CenterRabdag8066 [facility] [id number] :20 (Normal) Range: 0.450-4.500 :50 CBCD,SMEAR DIFF [...] mg/dL VLDL 29 mg/dL (Normal) Range: 5-40 85-Bca-42926:50 TSH 1.25 {uIU/mL} (Normal) Range: 0.34-4.82 88-Pvd-809560:41 BILAT SCRN DIGITAL & CAD Radiology Report See Note (Normal) Comments: Exam Number: [id number] MAMMOGRAM, BILATERAL SCREENING DIGITAL AND CAD HISTORYRoutine [...] mammograms werealso examined with computer-aided detection software ([employer], [employer] Reported By: ELEANOR ERNANDEZ M.D. 98-Wtw-13111:28 CBCD,SMEAR DIFF CELLS COUNTED 100 (Normal) EOS [...] mg/dL VLDL 21 mg/dL (Normal) Range: 5-40 71-Gfw-27698:28 TSH 0.38 {uIU/mL} (Normal) Range: 0.34-4.82 5-Sud-093672:04 Rapid Strep Test, Office (24485) Rapid Strep Test, Office Negative (Normal) 13-Rby-580308:34 BILAT SCRN DIGITAL & CAD Radiology Report See Note (Normal) Comments: Exam Number: [id number] MAMMOGRAM, BILATERAL SCREENING DIGITAL AND CAD HISTORYRoutine [...] mammograms werealso examined with computer-aided detection software ([employer], [employer] Reported By: ELEANOR ERNANDEZ M.D. 03-Qxy-063677:31 DEXA BONE DENSITY STUDY (HP) Radiology Report See Note (Normal) Comments: Exam Number: [id number] BONE DENSITOMETRY HISTORYPostmenopausal. TECHNIQUE Bone densitometry of [...] mg/dL VLDL 18 mg/dL (Normal) Range: 5-40 [id number] TSH 0.43 {uIU/mL} (Normal) Range: 0.34-4.82 [id number] BMP BUN 23 mg/dL (Abnormal) Range: 7-18 [...] : Follow up in 3 months with [facility] Indication: Hypertensive heart disease Hematuria, unspecified : FOLLOW UP IN 3 MONTHS [facility] Indication: Hematuria, unspecified Abnormal blood chemistry : [...] : Follow up for well woman with [facility] per pt request Indication: Hydronephrosis Anemia : FOLLOW UP IN 2 WEEKS January 07 by [facility] Indication: Anemia Abdominal pain, acute, generalized : FO[facility] 1 WEEK [facility] [facility] Indication: Abdominal pain, acute, generalized [...] Bronchitis Planned Observations VITAMIN B12 AND FOLATES (20705)Indication: Vitamin B 12 deficiency On: 50-Duo-816423:42 Request TSH (THYROID STIMULATING HORMONE) (59653)Indication: Hypothyroidism On: 60-Pjr-838627:42 Request Metabolic Panel, Comprehensive (04510)Indication: Hypercholesterolemia On: 9-Nhe-702210:52 Request Comments: Jun 2018 LIPID PANEL ([id number])Indication: Hypercholesterolemia On: 1-Uos-006654:51 Request Comments: Jun 2018 URINALYSIS ([id number])Indication: Hypertension, essential, benign On: 50-Slr-505495:52 Request MICROALBUMIN: CREATININE RATIO ([id number]) AND (07457)Indication: Hypertension, essential, benign On: 24-Ukp-382320:52 Request Metabolic Panel, Comprehensive ([id number])Indication: Hypertension, essential, benign On: 10-Ckl-068761:50 Request Comments: send to [facility] CBC, Platelets & Auto Diff (30753)Indication: Hypertension, essential, benign On: 20-Hbf-433154:50 Request Comments: send to [facility] TSH ([id number])Indication: Hypothyroidism On: 73-Gam-198881:50 Request Comments: send to [facility] LIPID PANEL (90284)Indication: Hypercholesterolemia On: 17-Kfi-038908:50 Request Comments: send to [facility] URINALYSIS ([id number])Indication: Hypertension, essential, benign On: 9-Bsm-940480:03 Request Comments: today MICROALBUMIN: CREATININE RATIO ([id number]) AND ([id number])Indication: Hypertension, essential, benign On: 8-Wsy-328560:03 Request Comments: today TSH (14602)Indication: Hypothyroidism On: 8-Xfu-590953:03 Request Comments: Jul 2017 MICROALBUMIN: CREATININE RATIO (72185) AND (96427)Indication: Hypertension, essential, benign On: 96-Blh-816688:51 Request Comments: Mar 2017 URINALYSIS ([id number])Indication: Hypertension, essential, benign On: 05-Mnw-059357:51 Request Comments: Mar 2017 TSH ([id number])Indication: Hypertension, essential, benign On: 77-Teh-902987:51 Request Comments: Mar 2017 CBC, Platelets & Auto Diff ([id number])Indication: Hypertension, essential, benign On: 39-Hal-686459:51 Request Comments: Mar 2017 Metabolic Panel, Comprehensive (08831)Indication: Hypertension, essential, benign On: 30-Ybv-352439:51 Request TSH (THYROID STIMULATING HORMONE) (42584)Indication: Hypothyroidism On: 17-Khk-929597:53 Request HEPATIC FUNCTION PANEL (48443)Indication: Hypertension, essential, benign On: 43-Mlu-269996:47 Request VITAMIN B12 AND FOLATES (90652)Indication: Vitamin B 12 deficiency On: 7-Hgm-582194:52 Request CALCIFEDIOL (24435)Indication: DEFICIENCY, VITAMIN D NOS On: 8-Xox-648059:52 Request Urinalysis, Office (77050)Indication: Hematuria, unspecified On: 48-Eaa-605282:35 Request MICROALBUMIN URINE QUANT (94033)Indication: Hypertensive heart disease On: 76-Zsm-048240:25 Request FECAL OCCULT HGB ASSAY- tubes sent home (98910)Indication: Well woman exam On: 9-Yeq-595743:51 Request OCCULT BLOOD FECES SCREEN- card done in office (50500)Indication: Well woman exam On: 0-Mqi-274949:51 Request Renal function Panel (17532)Indication: Hydronephrosis On: 1-Igk-637043:22 Request Iron (29500)Indication: Anemia On: 88-Oth-456081:39 Request Iron Binding Capacity (TIBC) (40691)Indication: Anemia On: 06-Gsk-277618:39 Request OVA & PARASITE DIR SMEAR (57987)Indication: Diarrhea On: 73-Lln-268473:50 Request OCCULT BLOOD FECES SCREEN (62446)Indication: Diarrhea On: 36-Rzk-283625:50 Request LEUKOCYTE COUNT, FECAL (08005)Indication: Diarrhea On: 43-Rzd-305724:50 Request C-DIFFICILE, STOOL ([id number])Indication: Diarrhea On: 92-Ugd-798403:50 Request LORNA CULTURE-STOOL (10285)Indication: Diarrhea On: 03-Rqr-582042:50 Request HEPATIC FUNCTION PANEL (70277)Indication: Hypercholesterolemia On: 70-Jcw-801750:46 Request Lipid Panel ([id number])Indication: Hypercholesterolemia On: 47-Nim-961200:46 Request Comments: in three months (approximately) TSH (86940)Indication: Hypothyroidism On: 56-Csx-422811:06 Request METABOLIC PANEL, COMPREHENSIVE (71199)Indication: Hypertensive heart disease On: 04-Sar-539509:06 Request LIPID PANEL (45905)Indication: Hypertensive heart disease On: 59-Zcs-760026:06 Request CBC WITH MANUAL DIFF (56884)Indication: Hypertensive heart disease On: 52-Oky-056477:06 Request LORNA CULTURE-OTHER (30907)Indication: Pharyngitis, acute On: 9-Fgo-158769:04 Request CBC (Auto) (37717)Indication: Hypercholesterolemia On: 37-Jxn-06717:13 Request Lipid Panel (55437)Indication: Hypercholesterolemia On: :13 Request Metabolic Panel, Comprehensive (62493)Indication: Hypercholesterolemia On: 16-Pdy-28162:13 Request Comments: in six months (approximately) TSH (59784)Indication: Hypothyroidism On: 83-Lqq-818196:06 Request LIPID PANEL ([id number])Indication: Hypertension On: 31-Llk-684354:01 Request Planned Encounters Medical; 3 Month FU - On: 27-Sep-2018 11:15 [facility] Sarai Bro CNP, CNP, Mary E Planned Procedures Flu Vaccine (Quadrivalent) On: 02-Jun-2018 Intent 67797Nb: Sarai Bro CNP Comments: Lot #[id number]/30/2019Site-L dltd, IMDose prefilled syringegiven by: ROSA MARIA CHOIVIS reviewed and ABN signed Sarai Bro CNP MAMMOGRAM BREAST BILATERAL On: 27-May-2018 Intent SCREENING DIGITAL ([id number])By: Sarai Bro CNP, CNP, Mary E Radiology - Femur - RightBy: On: 02-Mar-2018 Intent Sarai Bro CNP, CNP, Mary E DEXA SCAN AXIAL SKELETON On: 19-Oct-2017 Intent (57656)By: Sarai Bro CNP, CNP, Mary E Aerosol Treatment (04914)By: On: 07-Sep-2017 Intent Kelly Naqvi Comments: Lungs clear after aerosol treatment Flu Vaccine (Quadrivalent) On: 13-Apr-2017 Intent 07841Kb: Giselle Silva LPN Comments: InfluenzaLot #[id number]/18/18Site-L dltd, IMDose prefilled syringeVIS and ABN signedgiven by:ROSA MARIA cade MAMMOGRAM BREAST BILATERAL On: 05-Jan-2017 Intent SCREENING DIGITAL (37537)By: Comments: after Apr 24 2017 Sarai Bro CNP, CNP, Mary E DEXA SCAN AXIAL SKELETON On: 05-Jan-2017 Intent (06669)By: Sarai Bro CNP Comments: After Apr 24 2017 Sarai Bro CNP Flu Vaccine (Quadrivalent) On: 06-Jul-2016 Intent [id number]: Giselle Silva LPN Comments: InfluenzaLot #Lot [id number]/30/17Site-L dltd, IMDose prefilled syringeVIS and ABN signedgiven by:ROSA MARIA cade MAMMOGRAM, SCREENING, BOTH On: 31-Mar-2016 Intent BREAST (48001)By: Sarai Bro CNP, CNP, Mary E MAMMOGRAM, SCREENING, BOTH On: 17-Feb-2016 Intent BREAST (27753)By: Sarai Bro CNP, CNP, Mary E PHYSICAL THERAPY EVALUATION On: 28-Jan-2016 Intent (53918)By: Sarai Bro CNP, CNP, Mary E PHYSICAL THERAPY EVALUATION On: 28-Jan-2016 Intent (39268)By: Sarai Bro CNP, CNP, Mary E Toradol Injection, 30 mg On: 28-Jan-2016 Intent ([id number])By: Sarai Bro CNP, CNP, Mary E Radiology - Lumbar SpineBy: On: 28-Jan-2016 Intent Sarai Bro CNP, CNP, Mary E Radiology - Knee - LeftBy: On: 28-Jan-2016 Intent Sarai Bro CNP, CNP, Mary E Aerosol Treatment (06007)By: On: 24-Dec-2015 Intent Sarai Bro CNP, CNP, Mary E Flu Vaccine (Quadrivalent) On: 10-May-2015 Intent 14205Xx: Hang CARNEY Sarai Moon Comments: Lot:[id number]:02/06/16Dose:0.5mLRoute:IMSite:L DltdGiven By:Kacie signed Hang ANGELIKA Sarai Moon DEXA SCAN AXIAL SKELETON On: 19-Mar-2015 Intent (82450)By: Hang CARNEY Sarai Bro ANGELIKA Sarai Moon MAMMOGRAM, SCREENING, BOTH On: 11-Feb-2015 Intent BREAST (59989)By: Hang CARNEY Sarai Bro ANGELIKA Sarai Moon DEXA SCAN AXIAL SKELETON On: 11-Feb-2015 Intent (72489)By: Tiffaniewojciechyin CARNEYSarai CNP, Mary E Solu -Medrol Injection, 125 On: 25-Jul-2014 Intent mg (J2930)By: Hang CARNEY, Comments: [id number] 5.17right gm125 mgas, ROSA MARIA Sarai Busby CNP Aerosol Treatment (28101)By: On: 25-Jul-2014 Intent Hang ANGELIKASarai CNP, Mary E Toradol Injection, 30 mg On: 18-Jul-2014 Intent (J1885)By: Hang ANGELIKASarai CNP, Mary E Radiology - Lumbar SpineBy: On: 18-Jul-2014 Intent Sarai Bro CNP, CNP, Mary E Radiology - Hip - RightBy: On: 18-Jul-2014 Intent Sarai Bro CNP, CNP, Mary E Prevnar 13 (28039)By: Ghislainerb On: 16-Jul-2014 Intent Giselle CRANE Comments: [id number] arm, IMAS Bone Density StudyBy: Ciesa On: 15-May-2014 Intent ANGELIKASarai CNP, Mary E ADMINISTRATION OF INFLUENZA On: 15-May-2014 Intent VIRUS VACCINE (G0008)By: Hang CARNEY Rianna Hang ANGELIKA, Rianna FLU VAC, SPLIT, >3 YEARS, On: 15-May-2014 Intent INTRAMUSC (14730)By: Hang Comments: Lot:[id number]:04/24Dose:0.5mLRoute:IMSite:L DltdGiven By:JSONIA signed ANGELIKA Rianna Hang INSULATION WORKER INTERIOR SURFACE, Rianna SPECIMEN HNDLNG/TRNSPRT, [facility] On: 22-Mar-2014 Intent > LAB (29864)By: Hang CARNEY Rianna Hang ANGELIKA, Rianna BILATERAL MAMMOGRAMS On: 18-Dec-2013 Intent (05482)By: Hang CARNEY Rianna Hang ANGELIKA, Rianna Aerosol Treatment (26758)By: On: 22-Sep-2013 Intent Hang CARNEY, Rianna Hang ANGELIKA, Rianna Wax CurettesBy: Hang CARNEY, On: 22-Sep-2013 Intent Sarai Bro ANGELIKA, Rianna Ear Irrigation (13578)By: On: 22-Sep-2013 Intent Hang CARNEY, Rianna Hang CARNEY, Rianna Eprescribed prescriptions On: 18-Aug-2013 Intent (G8553)By: Lucrecia Vargas Eprescribed prescriptions On: 05-May-2013 Intent (G8553)By: Hang CARNEY Rianna Hang ANGELIKA, Rianna ADMINISTRATION OF INFLUENZA On: 05-May-2013 Intent VIRUS VACCINE (G0008)By: Comments: lot # [id number] 6.2014site- L dltdroute-IMdose- 0.5mlVIS and ABN signedKettering Health PreblePenny Grace LPN, LPN FLU VAC, SPLIT, >3 YEARS, On: 05-May-2013 Intent INTRAMUSC (92456)By: Penny Irving LPN MAMMOGRAM, SCREENING, BOTH On: 16-Dec-2012 Intent BREASTS (13137)By: Hang CARNEY Rianna Hang ANGELIKA, Rianna Spirometry (13450)By: Aristides On: 16-Dec-2012 Intent Penny CRANE Comments: mild airway obstruction Aerosol Treatment (21711)By: On: 30-Mar-2012 Intent Sarai Bro CNP, CNP Sarai Moon PFT - CompleteBy: Hang CARNEY, On: 01-Mar-2012 Intent Sarai Bro CNP Sarai Moon Inhaler Demonstration On: 28-Dec-2011 Intent (29308)By: Hang CARNEY Sarai Bro ANGELIKA Sarai Moon Pulse Oximetry (74365)By: On: 28-Dec-2011 Intent Sarai Bro CNP, CNP Sarai Moon Eprescribed prescriptions On: 22-Apr-2011 Intent (G8553)By: Tiffaniewojciechyin CARNEY Sarai Bro ANGELIKA Sarai Moon Eprescribed prescriptions On: 21-Oct-2010 Intent (G8553)By: Hang ANGELIKA Sarai Bro ANGELIKA Sarai Moon Eprescribed prescriptions On: 21-Oct-2010 Intent (G8553)By: Hang CARNEY Sarai Moon Tiffaniewojciechyin CARNEY Sarai Moon MAMMOGRAM, SCREENING, BOTH On: 15-Apr-2010 Intent BREASTS (31683)By: Hang CARNEY Sarai Bro ANGELIKA Rianna Ultrasound [...] SPLIT, >3 YEARS, On: 22-May-2009 Intent INTRAMUSC (63312)By: Kelle Comments: Lot #[id number] deltoidgiven by:Karina PLAZA LPN Pulse Oximetry (70654)By: On: 25-Sep-2008 Intent PRESTON Thompson ADMINISTRATION OF INFLUENZA On: 13-Jun-2008 Intent VIRUS VACCINE (G0008)By: Comments: lot #[id number] exp- 01/15site-left delroute-imdose- 0.5 Penny Irving LPN FLU VAC, SPLIT, >3 YEARS, On: 13-Jun-2008 Intent INTRAMUSC (05803)By: Penny Irving LPN MAMMOGRAM, SCREENING, BOTH On: 28-May-2008 Intent BREASTS (46815)By: Susan Lee MD Bio Z (17908)By: Rosa CHRISTIANSEN, On: 28-Nov-2007 Intent Susan Sánchez SPECIMEN HNDLNG/TRNSPRT, OFFC On: 12-Oct-2007 Intent > LAB (56615)By: Tyesha Ramos DO Bone Density StudyBy: Rosa On: 18-Feb-2007 Intent Susan CHRISTIANSEN Comments: ache in back MAMMOGRAM, SCREENING, BOTH On: 18-Feb-2007 Intent BREASTS (28260)By: Susan Lee MD Bio Z (61163)By: Rosa CHRISTIANSEN, On: 20-Jul-2006 Intent Susan Sánchez Planned Medications INJECTION, KETOROLAC TROMETHAMINE, PER 15 MG Ordered: 18-Jul-2014 Pending Ciesa INSULATION WORKER INTERIOR SURFACE, Rianna Ciesa INSULATION WORKER INTERIOR SURFACE, Rianna INJECTION, KETOROLAC TROMETHAMINE, PER 15 MG Ordered: 28-Jan-2016 Pending Ciesa INSULATION WORKER INTERIOR SURFACE, Rianna Ciesa INSULATION WORKER INTERIOR SURFACE, Rianna INJECTION, METHYLPREDNISOLONE SODIUM SUCCINATE, UP TO 125 MG Ordered: 25-Jul-2014 Pending Ciesa INSULATION WORKER INTERIOR SURFACE, Rianna Ciesa INSULATION WORKER INTERIOR SURFACE, Rianna Instructions Name Dates Details Nonsmoker : [...] contributing to the katty ent's care are damper worker (Dr paz ), tablet coater (Dr Vazquez ), urologist (Dr Pope ) [...]
--- OUTSIDE RECORDS SUMMARY | 2018-10-30 18:24 | XMS RPT_ITS | Continuity of Care Document ---
:1940 Author Organization [facility] Address [address] [facility] [address] [place] [address] Phone Care Team Providers Name Role Phone Tiffaniebonita ANGELIKA, Rianna Unavailable Amanda CHRISTIANSEN, Higinio Longoria Unavailable Turner CHRISTIANSEN, Nahun Plaza Unavailable [facility] BC, Eugenie Tovar Unavailable Rosa CHRISTIANSEN, [...] : 18-Aug-2013 End : 28-Aug-2013 Inactive DRISDOL, [id number] (Oral Capsule) 1 Capsule twice weekly for [...] Quantity: 21 {Tablet} Refills: 0 Ordered:15-Nov-[address] SERVICES, Sarai ANETTEaleyin DEPUTY SHERIFF [employer] SERVICES, Rianna Start : 15-Nov-2017 End : 22-Nov-2017 [...] Quantity: 60 {Capsule} Refills: 0 Ordered:10-May-2015 Slarb DECORATOR MANNEQUINGiselle Benson Start : 22-Apr-2011 End : 10-May-2015 [...] Result: Comments: See Note; NOTES: [facility] Cardiovascular Services [address] [place] [address] Venous Duplex US - Paulie Extrem 04/07/18 1000 MR#: [id number] Acct: [id number] Name: VALERIE CRAIN Rep #: [id number] : 1940 77 From: Higinio Patel MD [...] 04/08/18 1605 Date Higinio Patel MD CC: Saria Bro APARTMENT LEASING MANAGER; Higinio Patel MD Date Dictated: 04/07/18 1000 Date Transcribed: 04/08/181604 Area Forester: Signed 02-Mar-2018 Femur Min 2 Views Result: Comments: See Note; NOTES: [facility] Imaging Services [address] [place] [address] Femur Min 2 Views MR#: [id number] Acct: [id number] Name: VALERIE CRAIN Jose Alejandro Rep #: [id number] : 1940 F 77 From: Christiano Croft MD PCP: Sarai Bro NP Status: REG CLI Study: Femur Min 2 Views Date of Exam: 03/02/18 Exam# [id number] Ordering Dr: Sarai Bro STUDY: X-RAY - [...] vice support , CC: Sarai Bro NP Area Forester: Signed 10-Feb-2018 Echocardiogram Complete Result: Comments: See Note; NOTES: [facility] Cardiovascular Services [address] [place] [address] Echo Complete 02/10/18 1100 MR#: [id number] Acct: [id number] Name: VALERIE CRAIN Rep #: [id number] : 1940 77 From: Amilcar Paz MD Attending Dr: Jennifer Goodwin Status: REG CLI Ordering Dr: Jennifer Goodwin Date: 02/10/18 Location: [facility] Sex: F C Admitted: [facility] For Study: DYSPNEA Procedure This was [...] Date Amilcar Paz MD CC: Sarai Bro APARTMENT LEASING MANAGER; Jennifer Goodwin Date Dictated: 02/10/18 1100 Date Transcribed: 02/10/18 1241 Area Forester: Signed 28-Jan-2018 Cardiology Visit Report Result: Comments: See Note; NOTES: [facility] [address] [place] [address] OFFICE VISIT Date of Service: 01/28/18 MR#: [id number] Acct: [id number] Name: VALERIE CRAIN Rep #: [id number] : 1940 Provider: Jennifer Goodwin Age/Sex: 77/F Location: [facility] Status: Signed HPI HPI Details: VALERIE CRAIN, [...] for her age. 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 She does have [...] History Father Decea sed, age 48 from [place] CAD (coronary artery disease) Sudden cardiac Myocardial [...] prior to saving. Follow Up 6 Months (COMPLEX CARE NURSE) Coding Level of Care Code Off vis,est,l [...] Result: Comments: See Note; NOTES: [facility] Medical Records Department [address] [place] [address] Downtime Report MR#: [id number] Acct: [id number] Name: VALERIE CRAIN Rep #: [id number] : 1940 77 From: Anuj Webster PCP: Sarai Bro NP Status: REG RCR This patient was seen during an EMR downtime January 10, 2018 - January 17, 2018. This patient may have a combination of pa per and electronic documentation or all paper documentation. All documentation is viewable within the e-chart portion of SMR SITE for each patient visit. 09-Nov-2017 Dexa Bone Density Study Result: Comments: See Note; NOTES: [facility] Imaging Services [address] [place] [address] Dexa Bone Density Study MR#: [id number] Acct: [id number] Name: VALERIE CRAIN Rep #: [id number] : 1940 F 77 From: Henry Jones MD PCP: Sarai Bro NP Status: REG CLI Study: Dexa Bone Density Study Date of Exam: 11/09/17 Exam# [id number] Ordering Dr: Sarai Bro STUDY: DUAL E [...] Henry Jones MD at 13:40 EDT Tel [phone], Service support , CC: Sarai Bro NP Area Forester: Signed 27-Jul-2017 Cardiology Visit Report Result: Comments: See Note; NOTES: [facility] [address] [place] [address] OFFICE VISIT Date of Service: 07/27/17 MR#: [id number] Acct: [id number] Name: SEAN CRAIN #: [id number] : 1940 Provider: Amilcar Paz MD Age/Sex: 77/F Location: [facility] Status: Signed HPI 6 M FU (pt [...] Family History Father , age 48 from [place] CAD (coronary artery disease) Sudden cardiac Myocardial [...] Signature: Date (if applicable) CC: Sarai Bro APARTMENT LEASING MANAGER 17-May-2017 SCREENING MAMM (CAD), BILAT Result: Comments: See Note; NOTES: [facility] Imaging Services [address] [place] [address] SCREENING MAMM (CAD), BILAT MR#: [id number] Acct: [id number] Name: SEAN CRAIN Rep #: [id number] : 1940 F 76 From: Henry Jones MD PCP: Sarai Bro Status: REG CLI Study: SCREENING MAMM (CAD), BILAT Date of Exam: 05/17/17 Exam# [id number] Ordering Dr: Sarai Bro MAMMOGRAPH Y - [...] delay biopsy of a clinically suspicious abnormality. [id number] Electronically Signed: Henry Jones MD at 10:21 EDT Tel [phone], Service support , CC: Sarai Bro Area Forester: Signed 27-Feb-2017 Carotid Duplex Ultrasound Result: Comments: See Note; NOTES: [facility] Cardiovascular Services [address] [place] [address] Carotid Duplex Ultrasound 02/26/17 1046 MR#: [id number] Acct: [id number] Name: SEAN ABEBE Rep #: [id number] : 1940 76 From: Malcolm Hill MD Attending Dr: Jennifer Goodwin Status: REG CLI Ordering Dr: Jennifer Goodwin Date: 02/26/17 Location: [facility] Sex: F C Admitte d: Reason [...] Malcolm Hill MD CC: Sarai Bro; Jennifer Chrisat Date Dictated: 02/26/17 1046 Date Transcribed: 02/27/17 1103 Area Forester: Signed 03-Sep-2016 Chest PA and Lateral Result: Comments: See Note; NOTES: [facility] Imaging Services [address] [place] [address] Verdana 4d Chest PA and Lateral MR#: [id number] Acct: [id number] Name: SEAN CRAIN Rep # : [id number] : 1940 F 76 From: Henry Jones MD PCP: Sarai Bro Status: REG CLI Study: Chest PA and Lateral Date of Exam: 09/03/16 Exam# [id number] Ordering Dr: Nahun Vazquez MD STUD Y: [...] Henry diop MD at 12:41 EST Tel [phone], Service support [phone], CC: Sarai Bro; Nahun Vazquez MD Area Forester: Signed 28-Aug-2016 Echocardiogram Complete Result: Comments: See Note; NOTES: [facility] Cardiovascular Services [address] [place] [address] Echo Complete 08/28/16 1003 MR#: [id number] Acct: [id number] Name: SEAN CRAIN p #: [id number] : 1940 76 From: Amilcar Paz MD Attending Dr: Jackson CHRISTIANSEN,Amilcar Status: REG CLI Ordering Dr: Amilcar Paz MD Date: 08/28/16 Location: [facility] Sex: F C Admitted: Reason For Study: AT [facility] Procedure This was a [...] Dictated: 08/28/16 1003 Date Transcribed: 08/28/16 1225 Area Forester: Signed 24-Apr-2016 Bilat Scrn Digital AND CAD Result: Comments: See Note; NOTES: [facility] Imaging Services [address] [place] [address] Verdana 4d Bilat Scrn Digital AND CAD MR#: [id number] Acct: [id number] Name: SEAN CRAIN Jose Alejandro Rep #: [id number] : 1940 F 75 From: Henry Jones MD PCP: Sarai Bro Status: REG CLI Study: Jero Edwards Digital AND CAD Date of Exam: 04/24/16 Exam# [id number] Ordering Dr: Sarai Bro MAMMOGRAPHY - BILATERAL [...] delay biopsy of a clinically suspicious abnormality. [id number] Electronically Signed: Henry Jones MD at 10:58 EDT Tel [phone], Service support [phone], CC: Sarai Bro Area Forester: Signed 04-Mar-2016 PT D/C Summary (1) Result: Comments: See Note; NOTES: [facility] [address] [place] [address] Fax REHABILITATION SE [facility] DISCHARGE SUMMARY MR#: [id number] Acct: [id number] Name: SEAN CRAIN Rep #: [id number] : 1940 75 From: Giselle NELSON Referring [...] please feel free to call me at [phone]. Thank you for the referral of this patie nt. Sincerely, Giselle Yan <Electronically signed by Giselle Yan MPT> 03/04/161916 CC: Sarai Bro Signed 04-Feb-2016 Inital Evaluation (1) - PT Result: Comments: See Note; NOTES: [facility] [address] [place] [address] Fax REHABILITATION [facility] INITIAL EVALUATION MR#: [id number] Acct: [id number] Name: SEAN CRAIN Rep #: [id number] : 1940 75 From: Giselle Yan MPT Referring Dr.: Sarai Bro Status: REG RCR Insurance: MEDICARE PART A B [facility] Patient's Visit Information SEAN CRAIN is a [...] to be FAXED BACK to us at [phone] for Medicare purposes . Please let me know if there are questions or concerns regarding this plan of care. Physician Signature: Date: <Electronical ly signed by Giselle Yan MPT> 02/04/16 1628 CC: Sarai Bro Signed For Medicare only, by signing this I certify the plan of care. Physicians Signature Date 28-Jan-2016 Knee 4 or More Views Result: Comments: See Note; NOTES: [facility] Imaging Services [address] [place] [address] Verdana 4d Knee 4 or More Views MR#: [id number] Acct: [id number] Name: SEAN DWYER Rep #: [id number] : 1940 F 75 From: Shreyas Beaver MD PCP: Sarai Bro Status: REG CLI Study: Knee 4 or More Views Date of Exam: 01/28/16 Exam# [id number] Ordering Dr: Sarai Bro STUDY: X-RAY - [...] MD at 19:39 EDT , Service support [phone], ORDER # : [id number] RAD/Knee 4 or More Views IMPRESSION: No acute abnormality. Mild degenerative changes. Electronically Signed: Shreyas Beaver MD at 19:39 EDT , Service sup port [phone], CC: Sarai Bro Area Forester: Signed 28-Jan-2016 L/S Spine Min 4 Views Result: Comments: See Note; NOTES: [facility] Imaging Services [address] [place] [address] Verdana 4d L/S Spine Min 4 Views MR#: [id number] Acct: [id number] Name: SEAN BERRIOS Rep #: [id number] : 1940 F 75 From: Shreyas Beaver MD PCP: Sarai Bro Status: REG CLI Study: L/S Spine Min 4 Views Date of Exam: 01/28/16 Exam# [id number] Ordering Dr: Shital Bro STUDY: X-RAY - [...] MD at 19:40 EDT , Service support [phone], Fax RAD/L/S Spine Min 4 Views IMPRESSION: No acute abnormality. Mild to moderate degenerative changes. Electronically Signed: Shreyas Beaver MD at 19:40 EDT T el [phone], Service support [phone], CC: Sarai Bro Area Forester: Signed 19-Mar-2015 Dexa Bone Density Study (HP) Result: Comments: See Note; NOTES: [facility] Imaging Services [address] [place] [address] Bone Density Report MR#: [id number] Acct: [id number] Name: SEAN CRAIN Rep #: [id number] : 1940 F 74 From: Henry Jones MD PCP: Sarai Bro Status: REG CLI Study: Dexa Bone Density Study (HP) Date of Exam: 03/19/15 Exam# [id number] Ordering Dr: Sarai Bro STUD Y: DUAL [...] Henry Jones MD at 14:35 EDT Tel [phone], Servic e support [phone], CC: Sarai Bro Area Forester: Signed 12-Mar-2015 Bilat Scrn Digital AND CAD Result: Comments: See Note; NOTES: [facility] Imaging Services [address] [place] [address] Breast Imaging Report MR#: [id number] Acct: [id number] Name: SEAN CRAIN Rep #: [id number] : 1940 F 74 From: Henry Jones MD PCP: Sarai Bro Status: REG CLI Study: Bilat Scrn Digital AND CAD Date of Exam: 03/12/15 Exam# [id number] Ordering Dr: Sarai Bro MAMM OGRAPHY - [...] Jones MD 23/03/04 at 9:59 EDT Tel [phone], Service support [phone], CC: Sarai Bro Area Forester: Signed 16-Jan-2015 Operative Report Result: Comments: See Note; NOTES: [facility] Medical Records Department [address] [place] [address] Operative Report MR#: [id number] Acct: [id number] Name: SEAN CRAIN Rep #: [id number] : 1940 74 From: Amilcar Paz MD [...] care. Amilcar Paz MD T: NTS JOB: [id number] 01/16/15 0901 <Electronically signed by Amilcar Paz MD&amp ;#62; Date Amilcar Paz MD CC: Sarai Bro; Amilcar Paz MD Date Dictated: 01/14/151318 Date Transcribed: 01/14/151318 Area Forester: Signed 15-Jan-2015 Consultation Result: Comments: See Note; NOTES: [facility] Medical Records Department [address] [place] [address] Consultation MR#: [id number] Acct: [id number] Name: SEAN CRAIN Rep #: [id number] : 1940 74 From: Armando Guerra MD [...] C C: Amilcar Bro T: NTS JOB: [id number] 01/15/15 0643 <Electronically signed by Armando Guerra MD> Date Armando Guerra MD CC: Sarai Bro; Armando Guerra MD; Amilcar Paz MD Date Dictated: 01/14/15 135 Date Transcribed: 01/14/151356 Area Forester: Signed 07-Jan-2015 Chest PA and Lateral Result: Comments: See Note; NOTES: [facility] Imaging Services [address] [place] [address] Radiology Report MR#: [id number] Acct: [id number] Name: SEAN CRAIN Rep #: [id number] : 1940 F 74 From: Henry Jones MD PCP: Sarai Bro Status: PRE CLI Study: Chest PA and Lateral Date of Exam: 01/07/15 Exam# [id number] Ordering Dr: Amilcar Paz MD STUDY: X-RA [...] Henry Jones MD at 14:28 EDT Tel [phone], Service support [phone], RAD/Chest PA and Lateral IMPRESSION: Hyperinflation. No acute abnormality is seen. Electronically Signed: Henry Jones MD 2014 at 14:28 EDT Tel [phone], Service support [phone], CC: Sarai Bro; Amilcar Paz MD Area Forester: Signed 24-Dec-2014 Echocardiogram Complete Result: Comments: See Note; NOTES: [facility] Cardiovascular Services [address] [place] [address] Echo Complete 12/24/14 1003 MR#: [id number] Acct: [id number] Name: SEAN CRAIN Rep #: [id number] : 1940 74 From: Amilcar Paz MD Attending Dr: Jennifer Monroe Status: REG CLI Ordering Dr: Jennifer Monroe PA Date: 12/24/14 Location: [facility] Sex: F C Admitted: Pr raji [...] Dictated: 12/24/14 1003 Date Transcribed: 12/24/14 1359 Area Forester: Signed 19-Jul-2014 Hip min 2 Views Result: Comments: See Note; NOTES: [facility] Imaging Services [address] [place] [address] Radiology Report MR#: [id number] Acct: [id number] Name: SEAN CRAIN Rep #: [id number] : 1940 F 74 From: Henry Jones MD PCP: Sarai Bro Status: REG CLI Study: Hip min 2 Views Date of Exam: 07/19/14 Exam# [id number] Ordering Dr: Sarai Bro STUDY: X-RAY - [...] Henry Jones MD at 11:38 EST Tel [phone], Service support [phone], RAD/Hip min 2 Views IMPRESSION: Degenerative changes of the hip. Electronically Signed: Henry Jones MD at 11:38 EST Tel [phone], Service support [phone], CC : Sarai Bro Area Forester: Signed 19-Jul-2014 L/S Spine Min 4 Views Result: Comments: See Note; NOTES: [facility] Imaging Services [address] [place] [address] Radiology Report MR#: [id number] Acct: [id number] Name: SEAN CRAIN Rep #: [id number] : 1940 F 74 From: Henry Jones MD PCP: Sarai Bro Status: REG CLI Study: L/S Spine Min 4 Views Date of Exam: 07/19/14 Exam# [id number] Ordering Dr: Sarai Bro STUDY: X-RAY - [...] Henry Jones MD at 13:19 EST Tel [phone], Service support [phone], CC: Sarai Bro Area Forester: Signed 05-Jan-2014 Bilat Scrn Digital & CAD Result: Comments: See Note; NOTES: [facility] Imaging Services [address] [place] [address] Breast Imaging Report MR#: [id number] Acct: [id number] Name: SEAN CRAIN Rep #: [id number] : 1940 F 73 From: Henry Jones MD PCP: Status: [facility] CLI Exam# [id number] Ordering Dr: Sarai Bro MAMMOGRAPHY - BILATERAL [...] Henry Jones MD at 9:58 EDT Tel [phone], Service support [phone], CC: Sarai Bro; Amilcar Paz MD Area Forester: Signed Immunization Name Dates Details Influenza (3 years and up) on: 13-Jun-2008 Influenza (3 years and up) on: 22-May-2009 Comments: Lot #[id number]-left deltoidgiven by:CDH Family History Unknown Family Member Name Dates Details Father Comments: [place] at 48 & Status: Active Social History Name Dates Details Caffeine Use Comments: 2 cups coffee qd 1 soda qod Status: Active 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 Status: Inactive Tobacco use: Never smoker. Status: Inactive Vital Signs Date Test Result Details 83-Lyl-962247:20 Temperature 99.4 f Comments: Method: Temporal Pulse [...] kg/m2 Body Surface Area Calculated 1.87 m2 0-Lhx-668752:30 Temperature 97.7 f Comments: Method: Temporal Pulse [...] kg/m2 Body Surface Area Calculated 1.86 m2 27-Zcw-315597:20 Temperature 98.2 f Pulse 67 /min Comments: [...] kg/m2 Body Surface Area Calculated 1.85 m2 2-Oct-91155:30 Temperature 97.6 f Pulse 58 /min Comments: [...] kg/m2 Body Surface Area Calculated 1.85 m2 30-Lhb-871474:44 Temperature 98 f Comments: Method: Oral Pulse [...] kg/m2 Body Surface Area Calculated 1.81 m2 18-Bzl-643624:30 Temperature 99.2 f Comments: Method: Oral Pulse [...] kg/m2 Body Surface Area Calculated 1.81 m2 08-Kyg-398749:39 Temperature 99 f Comments: Method: Oral Pulse [...] Value Details :18 Prothrombin Time w/INR Comments: [facility] [address] [place], [place], [phone](064) INR 2.7 (Normal) PROTIME 28.4 s (Abnormal) Range: 11.7-14.9 :14 Prothrombin Time w/INR Comments: [facility] [address] [place], [place], [phone](537) INR 2.2 (Normal) PROTIME 24.6 s (Abnormal) Range: 11.7-14.9 :18 Prothrombin Time w/INR Comments: [facility] [address] [place], [address] INR 2.2 (Normal) PROTIME 24.3 s (Abnormal) Range: 11.7-14.9 :26 Prothrombin Time w/INR Comments: [facility] [address] [place], [address] INR 2.2 (Normal) PROTIME 24.6 s (Abnormal) Range: 11.7-14.9 :13 Prothrombin Time w/INR Comments: [facility] [address] [place], [address] INR 2.3 (Normal) PROTIME 25.7 s (Abnormal) Range: 11.7-14.9 :58 Prothrombin Time w/INR Comments: [facility] [address] [place], [place], [phone](612) INR 2.0 (Normal) PROTIME 22.8 s (Abnormal) Range: 11.7-14.9 :45 CBC W/Diff, Automated Comments: [facility] [address] [place], [address] ; another Absolute Lymph 2.13 [...] Range: 4.4-11.0 :45 Comprehensive Metabolic Profil Comments: [facility] [address] [place], [address] ; Dr Jackson GAP 8 [...] Comments: Please note revised GLUCOSE reference range fcoqfdjrr16/02/2018. 89-Deo-05405:45 Lipid Profile Comments: [facility] [address] [place], [address] VLDL 17 mg/dL (Normal) Range: 5-40 LDL [...] 200-240 mg/dL Borderline >240 mg/dL High Risk 18-Ifx-17529:45 Microalb:Creat Ratio,Random UR Comments: [facility] [address] [place], [place], [address] MALB:CREAT 8.4 {mg/g_CRE} (Normal) MICROALBUMIN,UR 13.5 mg/L (Normal) UR CREAT 160.00 mg/dL (Normal) 62-Jfr-61358:45 Prothrombin Time w/INR Comments: [facility] [address] [place], [address] INR 1.9 (Normal) PROTIME 21.5 s (Abnormal) Range: 11.7-14.9 Comments: ADDENDA: cardio :45 Thyroid Stim Hormone (TSH) Comments: [facility] [address] [place], [address] TSH 2.92 {uIU/mL} (Normal) Range: 0.358-3.74 78-Zsr-95191:45 Urinalysis, Routine (Dipstick) Comments: How was Urine Obtained? [facility] [address] [place], [id number] ; other doc LEUK ESTERASE 100 /ul (Abnormal) OCCULT BLOOD-UR 50 /ul (Abnormal) NITRITE UR Negative (Normal) UROBILI Normal mg/dL (Normal) PROT DIPSTX Negative mg/dL (Normal) pH UR 6.0 (Normal) Range: 5.0 - 8.0 SP.GR. DIPSTX 1.020 (Normal) Range: 1.002-1.030 KETONE UR Negative mg/dL (Normal) BILIRUBIN URINE Negative mg/dL (Normal) GLUCOSE, UR Normal mg/dL (Normal) CLARITY Cloudy (Normal) COLOR Yellow (Normal) 05-Skc-157138:31 Prothrombin Time w/INR Comments: [facility] [address] [place], [place], [address] INR 2.1 (Normal) PROTIME 23.3 s (Abnormal) Range: 11.7-14.9 4-Obe-821779:20 Prothrombin Time w/INR Comments: [facility] [address] [place], [address] INR 2.2 (Normal) Comments: ADDENDA: managed by cardio PROTIME 24.1 s (Abnormal) Range: 11.7-14.9 41-Awa-406344:40 Prothrombin Time w/INR Comments: [facility] [address] [place], [address] ; managed by cardio INR 2.0 (Normal) PROTIME 22.9 s (Abnormal) Range: 11.7-14.9 13-Irp-568052:13 Prothrombin Time w/INR Comments: [facility] [address] [place], [place], [address] INR 1.6 (Normal) PROTIME 19.5 s (Abnormal) Range: 11.7-14.9 71-Ncr-340346:28 Prothrombin Time w/INR Comments: [facility] [address] [place], [place], [address] ; cardio INR 1.8 (Normal) PROTIME 19.8 s (Abnormal) Range: 11.7-14.9 4-Ied-957232:53 Prothrombin Time w/INR Comments: [facility] [address] [place], [place], [address] INR 2.4 (Normal) PROTIME 24.8 s (Abnormal) Range: 11.7-14.9 4-Tmn-247618:26 Prothrombin Time w/INR Comments: [facility] [address] [place], [address] INR 1.9 (Normal) PROTIME 21.2 s (Abnormal) Range: 11.7-14.9 02-Lnm-457219:42 Rapid Flu (89400 x 2) Influenza A Ag POS B (Normal) 34-Tnu-794630:04 Prothrombin Time w/INR Comments: [place] [address] [place], [place], [address] ; cardio manages INR 1.4 (Normal) PROTIME 16.5 s (Abnormal) Range: 11.7-14.9 48-Noi-970015:28 Prothrombin Time w/INR Comments: [facility] [address] [place], [place], [address] INR 1.2 (Normal) PROTIME 14.3 s (Normal) Range: 11.7-14.9 8-Svk-533310:11 Prothrombin Time w/INR Comments: [facility] [address] [place], [place], [address] INR 2.0 (Normal) PROTIME 21.6 s (Abnormal) Range: 11.7-14.9 64-Liz-670619:18 CBC W/Diff, Automated Comments: [facility] [address] [place], [address] Absolute Lymph 2.38 {X10_3/ul} (Normal) [...] Range: 4.4-11.0 :18 Prothrombin Time w/INR Comments: [facility] [address] [facility] [place], [place], [address] INR 2.1 (Normal) PROTIME 22.8 s (Abnormal) Range: 11.7-14.9 :52 POTASSIUM SERUM (16245) Comments: STAT; Order Date: 07/23/17Order Info: 2823-3 - KComments: [facility] [address] [facility] [place], [place], [address] K 4.4 mmol/L (Normal) Range: 3.5-5.1 55-Nka-992542:56 Microscopic Examination Comments: PATIENT NOT FASTINGPERFORMED BY: [employer] [facility] [place] [id number] Bacteria Few (Normal) Mucus Threads Present (Normal) Epithelial Cells (non renal) 0-10 {/hpf} (Normal) Range: 0 - 10 RBC 3-10 {/hpf} (Abnormal) Range: 0 - 2 WBC 0-5 {/hpf} (Normal) Range: 0 - 5 :56 VITAMIN B-12 (CYANOCOBALAMIN) Comments: PATIENT NOT FASTINGPERFORMED BY: [employer] [address] [place] [id number] ([address]) Vitamin B12 451 pg/mL (Normal) Range: 232-1245 Comments: Please note reference interval change :56 TSH (07440) Comments: PATIENT NOT FASTINGPERFORMED BY: [employer] Sem[employer]Co Xjwneu7646 [address] [place] [id number] TSH 2.910 {uIU/mL} (Normal) Range: 0.450-4.500 :56 URINALYSIS, W/ MICRO (89947) Comments: PATIENT NOT FASTINGPERFORMED BY: [employer] srlSaint Barnabas Medical CenterPgjero4517 [facility] [id number] Microscopic Examination See below: (Normal) Comments: Microscopic was indicated and was performed. Nitrite, Urine Negative (Normal) Urobilinogen,Semi-Qn 0.2 mg/dL (Normal) Range: 0.2-1.0 Bilirubin Negative (Normal) Occult Blood 1+ (Abnormal) Ketones Negative (Normal) Glucose Negative (Normal) Protein Negative (Normal) WBC Esterase Trace (Abnormal) Appearance Clear (Normal) Urine-Color Yellow (Normal) pH 7.0 (Normal) Range: 5.0-7.5 Specific [place] 1.017 (Normal) Range: 1.005-1.030 :56 MICROALBUMIN: CREATININE RATIO Comments: PATIENT NOT FASTINGPERFORMED BY: [employer] Vnkaia4021 [facility] [id number] (72524) AND (98884) Microalb/Creat Ratio 7.4 {mg/g_creat} (Normal) Range: 0.0-30.0 Microalbumin, Urine 5.0 ug/mL (Normal) Creatinine, Urine 68.0 mg/dL (Normal) :56 METABOLIC PANEL, COMPREHENSIVE Comments: PATIENT NOT FASTINGPERFORMED BY: Tissue RegenixSaint Barnabas Medical CenterWptsan1277 [facility] [id number] (76206) ALT (SGPT) 18 [iU]/L (Normal) Range: 0-32 [...] Glucose, Serum 87 mg/dL (Normal) Range: 65-99 88-Ulu-207506:56 CBC W/AUTO DIFF WBC (61273) Comments: PATIENT NOT FASTINGPERFORMED BY: LabCoSaint Barnabas Medical CenterHcjsfg4617 [facility] [id number] Immature Grans (Abs) 0.0 {x10E3/uL} (Normal) Range: [...] Range: 3.4-10.8 :38 Prothrombin Time w/INR Comments: [facility] [address]ibofs[address] [place], [address] INR 2.0 (Normal) PROTIME 22.0 s (Abnormal) Range: 11.7-14.9 02-Ynk-420143:21 Prothrombin Time w/INR Comments: [facility] [address] [place], [address] INR 2.5 (Normal) PROTIME 26.0 s (Abnormal) Range: 11.7-14.9 :12 Lipid Profile Comments: Order Date: 12/04/16Order Info: 0788-1 - *Hepatic Function PanelOrder Info: [id number] - *Lipid Profile CC PCPComments: 12 hours fasting, may have water.[facility] Awwoyqdqod5[address] [place], [address] VLDL 21 mg/dL (Normal) Range: 5-40 LDL [...] Info: 0788-1 - *Hepatic Function PanelOrder Info: [id number] - *Lipid Profile CC PCPComments: 12 hours fasting, may have water.[facility] [address]ggwvx[address] [place], [place], [address] D BILI 0.09 mg/dL (Normal) Range: 0.00-0.30 T BILI 0.50 mg/dL (Normal) Range: 0.20-1.00 ALT 21 U/L (Normal) Range: 12-78 ALK P 78 U/L (Normal) Range: 45-117 AST 16 U/L (Normal) Range: 15-37 GLOB 3.1 g/dL (Normal) Range: 2.2-4.2 ALB 3.5 g/dL (Normal) Range: 3.4-5.0 Comments: Please note revised Albumin AND Globulin reference rangeeffective 2017. T PROT 6.6 g/dL (Normal) Range: 6.4-8.2 97-Rvu-372446:39 Prothrombin Time w/INR Comments: [facility] [address] [place], [place], [phone] INR 2.4 (Normal) PROTIME 24.9 s (Abnormal) Range: 11.7-14.9 :43 Prothrombin Time w/INR Comments: [facility] [address] [place], [place], [address] INR 2.2 (Normal) PROTIME 23.9 s (Abnormal) Range: 11.7-14.9 :22 CBC W/Diff, Automated Comments: [facility] [address] [place], [place], [address] ; OV 9/5 Absolute Lymph 2.11 {X10_3/ul} [...] Range: 4.4-11.0 09-Apr-20179:22 Comprehensive Metabolic Profil Comments: [facility] Oatsfilpku65[address] [place], [address] GAP 7 (Normal) Range: 5-15 CO2 33.0 [...] 70-110 :22 Thyroid Stim Hormone (TSH) Comments: [facility] [address]oxgar[address] [place], [place], [address] TSH 3.52 {uIU/mL} (Normal) Range: 0.358-3.74 58-Hre-803080:37 Prothrombin Time w/INR Comments: [facility] Kgcbrmqvix4518 [place], [address] INR 2.1 (Normal) PROTIME 22.4 s (Abnormal) Range: 11.7-14.9 32-Urd-903290:12 Prothrombin Time w/INR Comments: PT ORDER IS AND T4 IS [facility] [address]ambztsis[address] [place], [place], [phone] INR 2.1 (Normal) PROTIME 23.1 s (Abnormal) Range: 11.7-14.9 40-Ttr-767392:11 T4 Total, Thyroxin Comments: Order Date: 02/19/17Order Info: 3026-2 - *T4 (Total)Comments: Reason:Order Info: 3016-3 - *[facility] Dxnpuixgpb64[address] [place], [place], [address] T4 THYROXIN 7.2 ug/dL (Normal) Range: 4.8-13.9 03-Nij-986773:11 Thyroid Stim Hormone (TSH) Comments: Order Date: 02/19/17Order Info: 3026-2 - *T4 (Total)Comments: Reason:Order Info: 3016-3 - *[facility] Hmyzglmyuv7589 [place], [address] TSH 1.56 {uIU/mL} (Normal) Range: 0.358-3.74 :37 Prothrombin Time w/INR Comments: [facility] Xrsxobjyhd4743 [place], [address] INR 1.9 (Normal) PROTIME 21.4 s (Abnormal) Range: 11.7-14.9 2-Aco-926646:50 Prothrombin Time w/INR Comments: [facility] Jmzbksmwmn9[address] [place], [address] INR 2.0 (Normal) PROTIME 21.6 s (Abnormal) Range: 11.7-14.9 19-Pty-225027:37 Prothrombin Time w/INR Comments: [facility] Yqihlcfhif65[address] [place], [address] INR 2.5 (Normal) PROTIME 25.6 s (Abnormal) Range: 11.7-14.9 92-Nac-949886:18 Prothrombin Time w/INR Comments: [facility] Ktijmiipbs0359 [place], [address] INR 2.1 (Normal) PROTIME 22.5 s (Abnormal) Range: 11.7-14.9 40-Onc-751826:17 Lipid Profile Comments: Order Date: 06/02/16Order Info: 0788- [id number] - *Hepatic Function PanelDR.JACKSON BROWNEICHMARIMAR LIPID LIVEROrder Date: 06/02/16Order Info: [id number] - *Lipid Profile CC PCPComments: 12 hours fasting, may have mary lalaC[facility] [address]ugzehylba[address] [place], [address] VLDL 31 mg/dL (Normal) Range: 5-40 LDL [...] 200-240 mg/dL Borderline >240 mg/dL High Risk 30-Iwm-738604:17 Liver Profile Comments: Order Date: 06/02/16Order Info: 0788- 1 - *Hepatic Function PanelDR.JACKSON PTMICHELLE LIPID LIVEROrder Date: 06/02/16Order Info: 34998-9 - *Lipid Profile CC PCPComments: 12 hours fasting, may have mary lalaCinc[facility] Vgsmtsegyy2332 [place], [address] D BILI 0.09 mg/dL (Normal) Range: 0.00-0.30 T BILI 0.50 mg/dL (Normal) Range: 0.20-1.00 ALT 28 U/L (Normal) Range: 12-78 ALK P 93 U/L (Normal) Range: 45-117 AST 21 U/L (Normal) Range: 15-37 GLOB 3.4 g/dL (Normal) Range: 2.3-3.5 ALB 4.0 g/dL (Normal) Range: 3.4-5.0 T PROT 7.4 g/dL (Normal) Range: 6.4-8.2 5-Eob-146931:32 Prothrombin Time w/INR Comments: [facility] [address]ksrlpucqx[address] [place], [address] ; jackson manages INR 1.8 (Normal) PROTIME 20.2 s (Abnormal) Range: 11.7-14.9 24-Bdc-048431:09 Prothrombin Time w/INR Comments: [facility] [address]hnd[address]qvy4[address] [place], [address] ; another doc INR 2.1 (Normal) PROTIME 23.1 s (Abnormal) Range: 11.7-14.9 35-Hie-892648:10 Metabolic Panel, Comprehensive Comments: today; PATIENT NOT FASTINGPERFORMED BY: [facility] Ubjefl9399 [place] [id number] ([id number]) ALT (SGPT) 16 [iU]/L (Normal) Range: 0-32 [...] Glucose, Serum 89 mg/dL (Normal) Range: 65-99 23-Tho-927773:26 Prothrombin Time w/INR Comments: [facility] Agftgwftto5[address] [place], [place], [address] INR 2.2 (Normal) PROTIME 23.7 s (Abnormal) Range: 11.7-14.9 65-Nqg-720060:52 CBC-Complete Blood Cnt No Diff Comments: [facility] [address] [place], [place], [address] ; sibilia MPV 10.8 fL (Normal) Range: [...] 4.2-5.4 WBC 7.4 K/mm3 (Normal) Range: 4.4-11.0 63-Ngx-903636:58 Prothrombin Time w/INR Comments: [facility] [address]rld[address] [place], [place], [address] INR 2.0 (Normal) PROTIME 22.4 s (Abnormal) Range: 11.7-14.9 71-Sri-607049:49 Prothrombin Time w/INR Comments: [facility] [address] [place], [place], [address] INR 2.0 (Normal) PROTIME 22.3 s (Abnormal) Range: 11.7-14.9 79-Zgm-943721:54 CBC WITH MANUAL DIFF (07632) Comments: PATIENT NOT FASTINGPERFORMED BY: CB [facility] Cdlzmm8934 [facility] [id number] Immature Grans (Abs) 0.0 {x10E3/uL} (Normal) Range: [...] 3.77-5.28 WBC 6.2 {x10E3/uL} (Normal) Range: 3.4-10.8 56-Stj-204188:54 Metabolic Panel, Comprehensive Comments: PATIENT NOT FASTINGPERFORMED BY: [facility]6370 [facility] [id number] ([id number]) ALT (SGPT) 18 [iU]/L (Normal) Range: 0-32 [...] Glucose, Serum 86 mg/dL (Normal) Range: 65-99 03-Svf-395716:54 TSH (75020) Comments: PATIENT NOT FASTINGPERFORMED BY: LabCoSaint Barnabas Medical CenterFjtwsx4399 [facility] [id number] TSH 2.890 {uIU/mL} (Normal) Range: 0.450-4.500 23-Dui-834296:23 Prothrombin Time w/INR Comments: [facility] [address] [place], [place], [address] ; managed by cardio INR 2.6 (Normal) PROTIME 27.4 s (Abnormal) Range: 11.7-14.9 81-Wax-99191:54 Prothrombin Time w/INR Comments: [facility] Xkovkquiph9370 [address] [place], [place], [address] ; another doc INR 2.0 (Normal) PROTIME 22.3 s (Abnormal) Range: 11.7-14.9 :53 Lipid Profile Comments: Order Date: 05/22/16 Order #: [id number] Va Medical Center Icbaqnjqrs2654 [address] [place], [place], [address] VLDL 21 mg/dL (Normal) Range: 5-40 LDL [...] Profile Comments: Order Date: 05/22/16 Order #: [id number] Va Medical Center Acogaluvnc1220 [address] [place], [place], [address] D BILI < 0.05 mg/dL (Normal) Range: [...] Range: 6.4-8.2 :09 Prothrombin Time w/INR Comments: [facility] Y[address] [place], [place], [address] INR 2.5 (Normal) PROTIME 26.3 s (Abnormal) Range: 11.7-14.9 :59 Prothrombin Time w/INR Comments: [facility] Ndvvjhic[address] [place], [place], [address] ; managed by cardio INR 2.9 (Normal) PROTIME 29.3 s (Abnormal) Range: 11.7-14.9 :05 Prothrombin Time w/INR Comments: [facility] [address] [place], [address] INR 2.0 (Normal) PROTIME 22.3 s (Abnormal) Range: 11.7-14.9 68-Lvr-162432:11 Prothrombin Time w/INR Comments: [facility] [address] [place], [place], [address] INR 2.7 (Normal) Comments: ADDENDA: managed by cardio PROTIME 27.7 s (Abnormal) Range: 11.7-14.9 :14 Prothrombin Time w/INR Comments: [facility] Aasfed[address] [place], [place], [address] ; managed by Jackson INR 2.7 (Normal) PROTIME 28.1 s (Abnormal) Range: 11.7-14.9 :45 Prothrombin Time w/INR Comments: [facility] [address] [place], [place], [address] ; managed by cardio INR 3.1 (Normal) PROTIME 31.3 s (Abnormal) Range: 11.7-14.9 :27 Prothrombin Time w/INR Comments: [facility] Somtaxtbry[address] [place], [place], [address] ; managed by cardio INR 3.1 (Normal) PROTIME 31.1 s (Abnormal) Range: 11.7-14.9 :22 Prothrombin Time w/INR Comments: [facility] [address]yl[address]eq[address] [place], [address] INR 2.6 (Normal) PROTIME 27.4 s (Abnormal) Range: 11.7-14.9 16-Jan-20169:08 Prothrombin Time w/INR Comments: [facility] Gajtwtntnz16[address] [place], [place], [address] ; managed with Dr. paz INR 4.1 (Abnormal) Comments: CRITICAL VALUE REPEATED AND VERIFIED. [facility] TO [facility]01/16/16 1251 Elza Hinojosa.RESULTS READ BACK BY SAME . PROTIME 38.2 s (Abnormal) Range: 11.7-14.9 86-Wkk-712150:11 Microscopic Examination Comments: PATIENT WAS FASTINGPERFORMED BY: [employer] [facility] IncAt[facility] [id number] Bacteria None seen (Normal) Mucus Threads Present (Normal) Epithelial Cells (non renal) 0-10 {/hpf} (Normal) Range: 0 - 10 RBC 11-30 {/hpf} (Abnormal) Range: 0 - 2 WBC 0-5 {/hpf} (Normal) Range: 0 - 5 47-Pvo-851738:11 MICROALBUMIN: CREATININE RATIO Comments: PATIENT WAS FASTINGPERFORMED BY: [employer] [facility] [id number] ([id number]) AND (58800) Microalb/Creat Ratio 11.4 {mg/g_creat} (Normal) Range: 0.0-30.0 Microalbumin, Urine 12.1 ug/mL (Normal) Comments: Please note reference interval change Creatinine, Urine 106.3 mg/dL (Normal) Comments: Please note reference interval change 37-Xlq-187172:11 URINALYSIS (70111) Comments: PATIENT WAS FASTINGPERFORMED BY: [employer] [facility] [id number] Microscopic Examination See below: (Normal) Comments: Microscopic was indicated and was performed. Nitrite, Urine Negative (Normal) Urobilinogen,Semi-Qn 0.2 mg/dL (Normal) Range: 0.2-1.0 Bilirubin Negative (Normal) Occult Blood 2+ (Abnormal) Ketones Negative (Normal) Glucose Negative (Normal) Protein Negative (Normal) WBC Esterase Negative (Normal) Appearance Clear (Normal) Urine-Color Yellow (Normal) pH 7.0 (Normal) Range: 5.0-7.5 Specific [place] 1.018 (Normal) Range: 1.005-1.030 19-Vse-962776:11 Metabolic Panel, Comments: PATIENT WAS FASTINGPERFORMED BY: [facility]6370 [facility] [id number] Information: [id number], [id number] Comprehensive (40036) ALT (SGPT) 14 [iU]/L (Normal) Range: 0-32 [...] Glucose, Serum 91 mg/dL (Normal) Range: 65-99 62-Oed-794221:11 TSH (03871) Comments: PATIENT WAS FASTINGPERFORMED BY: [facility] Dceaab2081 [facility] [id number] TSH 2.260 {uIU/mL} (Normal) Range: 0.450-4.500 :17 Prothrombin Time w/INR Comments: [facility] [address]cl[address] [place], [place], [address] INR 2.8 (Normal) PROTIME 28.4 s (Abnormal) Range: 11.7-14.9 :40 Lipid Profile Comments: [facility] Q[address]jbul[address]cl[address] [place], [place], [address] VLDL 22 mg/dL (Normal) Range: 5-40 LDL [...] mg/dL High Risk :40 Liver Profile Comments: [facility] [address]vij[address] [place], [place], [address] D BILI 0.10 mg/dL (Normal) Range: 0.00-0.30 T BILI 0.60 mg/dL (Normal) Range: 0.20-1.00 ALT 26 U/L (Normal) Range: 12-78 ALK P 86 U/L (Normal) Range: 50-136 AST 20 U/L (Normal) Range: 15-37 GLOB 3.4 g/dL (Normal) Range: 2.3-3.5 ALB 3.9 g/dL (Normal) Range: 3.4-5.0 T PROT 7.3 g/dL (Normal) Range: 6.4-8.2 :26 Prothrombin Time w/INR Comments: [facility] [address]fgxforb[address] [place], [place], [address] INR 2.6 (Normal) Comments: ADDENDA: handled by cardio PROTIME 27.3 s (Abnormal) Range: 11.7-14.9 :40 Prothrombin Time w/INR Comments: [facility] Jerwtshy[address] [place], [address] INR 2.4 (Normal) PROTIME 26.4 s (Abnormal) Range: 11.7-14.9 5-Hdt-943485:03 Prothrombin Time w/INR Comments: [place] [address] [place], [address] ; per pop up in EMR cardio manages INR INR 2.2 (Normal) PROTIME 24.5 s (Abnormal) Range: 11.7-14.9 :51 Prothrombin Time w/INR Comments: [place] [address] [place], [address] INR 1.6 (Normal) PROTIME 19.0 s (Abnormal) Range: 11.7-14.9 Comments: ADDENDA: managed by cardio :33 Prothrombin Time w/INR Comments: [facility] [address]xf[address] [place], [address] ; handled by cardio INR 2.1 (Normal) PROTIME 24.0 s (Abnormal) Range: 11.7-14.9 84-Uvi-190097:02 Prothrombin Time w/INR Comments: [place] [address] [place], [address] INR 2.2 (Normal) PROTIME 24.1 s (Abnormal) Range: 11.7-14.9 41-Afx-929466:37 Prothrombin Time w/INR Comments: [facility] [address] [place], [address] INR 2.5 (Normal) PROTIME 26.7 s (Abnormal) Range: 11.7-14.9 :44 Prothrombin Time w/INR Comments: [place] [address] [place], [place], [address] INR 2.2 (Normal) PROTIME 24.6 s (Abnormal) Range: 11.7-14.9 80-Gnq-250726:15 Prothrombin Time w/INR Comments: [facility] Wwjeatagcc60[address] [place], [address] INR 1.6 (Normal) PROTIME 19.4 s (Abnormal) Range: 11.7-14.9 :36 Prothrombin Time w/INR Comments: [facility] [address]ilgkhes[address] [place] [place], [address] INR 1.2 (Normal) PROTIME 15.3 s (Abnormal) Range: 11.7-14.9 :02 Prothrombin Time w/INR Comments: [place] [address] [place], [place], [address] INR 2.7 (Normal) PROTIME 29.0 s (Abnormal) Range: 11.7-14.9 :47 Lipid Profile Comments: [facility] [address]tw[address]bns[address] [place], [place], [address] VLDL 20 mg/dL (Normal) Range: 5-40 LDL [...] mg/dL High Risk :47 Liver Profile Comments: [facility] Eftyynlffc[address] [place], [address] D BILI 0.09 mg/dL (Normal) Range: 0.00-0.30 T BILI 0.40 mg/dL (Normal) Range: 0.20-1.00 ALT 26 U/L (Normal) Range: 12-78 ALK P 86 U/L (Normal) Range: 50-136 AST 24 U/L (Normal) Range: 15-37 GLOB 3.3 g/dL (Normal) Range: 2.3-3.5 ALB 4.0 g/dL (Normal) Range: 3.4-5.0 T PROT 7.3 g/dL (Normal) Range: 6.4-8.2 3-Mwx-883792:11 CBC, Platelets & Auto Diff Comments: PATIENT NOT FASTINGPERFORMED BY: [facility] Cqxqkb9344 [facility] [id number] Information: [id number] (71645) Immature Grans (Abs) 0.0 {x10E3/uL} (Normal) Range: [...] 3.77-5.28 WBC 6.2 {x10E3/uL} (Normal) Range: 3.4-10.8 7-Dkt-489817:11 CALCIFEDIOL (66280) Comments: PATIENT NOT FASTINGPERFORMED BY: [facility] SemiconductorsMcl[facility]6370 [facility] [id number] Vitamin D, 25-Hydroxy 38.9 ng/mL (Normal) Range: 30.0-100.0 Comments: Vitamin D deficiency has been defined by the [place] ofWhite Hospitalcine and an Endocrine Society practice guideline as alevel of serum 25-OH vitamin D less than 20 ng/mL (1,2).The Endocrine Society went on to further define vitamin Dinsufficiency as a level between 21 and 29 ng/mL (2).1. IOM ([place] of Medicine). 2010. Dietary reference intakes for calcium and D. [place]: The National Academies Press.2. Roberto GRAY, Brody OCHOA, Maribell CADENA, et al. Evaluation, treatment, and prevention of vitamin D deficiency: an Endocrine Society clinical practice guideline. JCEM. 2010; 96(7):1911-30. 4-Kxw-921207:11 VITAMIN B12 AND FOLATES Comments: PATIENT NOT FASTINGPERFORMED BY: [facility] SemiconductorsMcl[facility]6370 [facility] [id number] (97408) Folate (Folic Acid), Serum 10.4 ng/mL (Normal) Comments: A serum folate concentration of less than 3.1 ng/mL isconsidered to represent clinical deficiency. Vitamin B12 1651 pg/mL (Abnormal) Range: 211-946 9-Rnr-084904:11 Metabolic Panel, Comprehensive Comments: PATIENT NOT FASTINGPERFORMED BY: [facility] SemiconductorsM[facility]6370 [facility] [id number] (72600) ALT (SGPT) 15 [iU]/L (Normal) Range: 0-32 [...] Range: 65-99 09-May-20159:53 Prothrombin Time w/INR Comments: [facility] Quzvdwfzkj6726 [facility] [place], [address] INR 1.9 (Normal) PROTIME 22.0 s (Abnormal) Range: 11.7-14.9 98-Gwp-605644:40 Prothrombin Time w/INR Comments: Test performed at:[facility] Fbgkmcvjub0929 [facility] [place] [address] INR 1.3 (Normal) PROTIME 16.3 s (Abnormal) Range: 11.7-14.9 21-Kqc-864380:03 Prothrombin Time w/INR Comments: Test performed at:[facility] Pzmvxsdpkw6634 [facility] [place] [address] INR 1.7 (Normal) PROTIME 20.4 s (Abnormal) Range: 11.7-14.9 6-Mkd-127798:26 Prothrombin Time w/INR Comments: Test performed at:[facility] Kgizrtqioz0632 [facility] [place] [address] INR 1.2 (Normal) Comments: ADDENDA: managed by dr paz PROTIME 15.8 s (Abnormal) Range: 11.7-14.9 59-Spe-222172:28 Prothrombin Time w/INR Comments: Test performed at:[facility] [address] [place] [address] INR 1.2 (Normal) PROTIME 15.8 s (Abnormal) Range: 11.7-14.9 :54 Prothrombin Time w/INR Comments: Test performed at:[facility] [address]we[address] [place] [address] INR 2.5 (Normal) PROTIME 27.3 s (Abnormal) Range: 11.7-14.9 9-Okg-036207:16 Prothrombin Time w/INR Comments: Test performed at:[facility] [address] [place] [address] INR 2.0 (Normal) PROTIME 23.2 s (Abnormal) Range: 11.7-14.9 40-Nwv-342371:29 Prothrombin Time w/INR Comments: Test performed at:[facility] [address] [place] [address] INR 2.8 (Normal) PROTIME 29.3 s (Abnormal) Range: 11.7-14.9 00-Bei-040661:06 Prothrombin Time w/INR Comments: Test performed at:[facility] [address]qa[address] [place] [address] ; Dr Bella manages INR 2.1 (Normal) PROTIME 24.0 s (Abnormal) Range: 11.7-14.9 :45 Prothrombin Time w/INR Comments: Test performed at:[facility] [address] [place] [address] ; ordered by another INR 1.3 (Normal) PROTIME 16.5 s (Abnormal) Range: 11.7-14.9 :00 Prothrombin Time w/INR Comments: Test performed at:[facility] [address] [place] [address] INR 0.9 (Normal) PROTIME 12.7 s (Normal) Range: 11.7-14.9 :05 Vitamin B12 and Folate Comments: PATIENT NOT FASTINGPERFORMED BY: [facility]6370 [facility] [id number] Information: [id number] Folate (Folic Acid), 7.8 ng/mL (Normal) Comments: A serum folate concentration of less than 3.1 ng/mL isconsidered to represent clinical deficiency. Serum Vitamin B12 1883 pg/mL Range: 211-946 (Abnormal) : Vitamin D, 42.8 ng/mL (Normal) Comments: PATIENT NOT FASTINGPERFORMED BY: [facility]6370 [facility] [id number] 05 25-Hydroxy Range: 30.0-100.0 Comments: Vitamin D deficiency has been defined by the [place] ofWhite Hospitalcine and an Endocrine Society practice guideline as alevel of serum 25-OH vitamin D less than 20 ng/mL (1,2).The Endocrine Society went on to further define vitamin Dinsufficiency as a level between 21 and 29 ng/mL (2).1. IOM ([place] of Medicine). 2010. Dietary reference intakes for calcium and D. [place]: The National Academies Press.2. Roberto MF, Brody OCHOA, Maribell CADENA, et al. Evaluation, treatment, and prevention of vitamin D deficiency: an Endocrine Society clinical practice guideline. JCEM. 2010; 96(7):1911-30. 02-Rpn-609204:04 CBC W/Diff, Automated Comments: Test performed at:[facility] [address]ujmft[address] [place] [address] Absolute Lymph 2.41 {X10_3/ul} (Normal) [...] 4.2-5.4 WBC 6.5 K/mm3 (Normal) Range: 4.4-11.0 4-Hpl-871099:26 Basic Metabolic Profile (BMP) Comments: Test performed at:[facility] [address] [place] [id number] GAP 4 (Abnormal) Range: 5-15 CO2 33.0 mmol/L (Abnormal) Range: 21.0-32.0 CL 103 mmol/L (Normal) Range: 98-107 K 4.8 mmol/L (Normal) Range: 3.5-5.1 NA 140 mmol/L (Normal) Range: 136-145 CA 8.8 mg/dL (Normal) Range: 8.5-10.1 BUN/CRE 25.8 {RATIO} (Abnormal) Range: 10-20 CREAT,SERUM 1.2 mg/dL (Abnormal) Range: 0.6-1.0 BUN 31 mg/dL (Abnormal) Range: 7-18 GLU 108 mg/dL (Normal) Range: 70-110 [id number] Basic Metabolic Profile (BMP) Comments: Test performed at:[facility] [id number] [place] [address] [place] [address] GAP 4 (Abnormal) Range: 5-15 CO2 28.0 mmol/L (Normal) Range: 21.0-32.0 CL 106 mmol/L (Normal) Range: 98-107 K 4.3 mmol/L (Normal) Range: 3.5-5.1 NA 138 mmol/L (Normal) Range: 136-145 CA 8.8 mg/dL (Normal) Range: 8.5-10.1 BUN/CRE 26.0 {RATIO} (Abnormal) Range: 10-20 CREAT,SERUM 1.0 mg/dL (Normal) Range: 0.6-1.0 BUN 26 mg/dL (Abnormal) Range: 7-18 GLU 93 mg/dL (Normal) Range: 70-110 [id number] CBC W/Diff, Automated Comments: Test performed at:[facility] [id number] [place], [place] [address] Absolute Lymph 2.60 {X10_3/ul} (Normal) [...] slightly hemolyzed. Results may be affected.Test performed at:[facility] [address] [place] [address] VLDL 19 mg/dL (Normal) Range: 5-40 LDL [...] slightly hemolyzed. Results may be affected.Test performed at:[facility] [address] [facility]. [place], [place] [address] D BILI < 0.05 mg/dL (Normal) Range: [...] CHOL 226 mg/dL (Abnormal) Comments: <200 mg/dL Rpjnkqwaj390-974 mg/dL Borderline>240 mg/dL High Risk :47 LIVER [...] :47 TSH 3.05 {uIU/mL} (Normal) Range: 0.358-3.74 73-Gsa-108882:00 LORNA CULTURE-OTHER (95343) Comments: PATIENT NOT FASTINGPERFORMED BY: [facility] [id number] Information: SRC:THRT [id number] Result 1 RRF (Normal) Comments: Routine respiratory jesus Upper Respiratory Culture Final report (Normal) 72-Xqk-96134:21 Rapid Strep Test, Office (02019) Rapid Strep Test, Office Negative (Normal) 35-Xse-34388:00 BILAT SCRN DIGITAL & CAD Radiology Report [...] Jones M.D.January 04, 2013 at 10:41:52 AM [phone] Signed GP/GP If you are the referring physician and would like to consult with theradiologist who provided this interpretation, please contact Ne Huang at [phone]. If this radiologist is unavailable, youwill be directed to another radiologist to assist. If you are a patient with a question regarding this report, pleasecontactyour referring physician directly. Professional Interpretation Provided By: [facility], Phone , These documents contain legally protected [...] Panel Comments: PATIENT WAS FASTINGPERFORMED BY: [facility] [id number] Information: [id number] (7) ALT (SGPT) 23 [iU]/L (Normal) Range: 0-32 AST (SGOT) 21 [iU]/L (Normal) Range: 0-40 Alkaline Phosphatase, S 74 [iU]/L (Normal) Range: 25-165 Bilirubin, Direct 0.10 mg/dL Range: 0.00-0.40 (Normal) Albumin, Serum 4.3 g/dL (Normal) Range: 3.5-4.8 Bilirubin, Total 0.3 mg/dL (Normal) Range: 0.0-1.2 Protein, Total, Serum 6.7 g/dL (Normal) Range: 6.0-8.5 Written Authorization WAR (Normal) Comments: PATIENT WAS FASTINGPERFORMED BY: [facility] [id number] :19 Comments: Written Authorization Received.Authorization received from DR BRO [id number] by Rachelle Porter :19 Metabolic Panel, Comprehensive Comments: PATIENT WAS FASTINGPERFORMED BY: [facility] [id number] (97430) ALT (SGPT) 22 [iU]/L (Normal) Range: 0-32 [...] Glucose, Serum 89 mg/dL (Normal) Range: 65-99 2-Dtd-831815:19 CBC with manual diff Comments: PATIENT WAS FASTINGPERFORMED BY: [facility]CoSaint Barnabas Medical CenterDvlqyg9535 [facility] [id number] Information: [id number] (39841) Immature Grans (Abs) 0.0 {x10E3/uL} (Normal) Range: [...] 3.77-5.28 WBC 4.6 {x10E3/uL} (Normal) Range: 4.0-10.5 6-Unr-148649:19 Lipid Panel (21291) Comments: PATIENT WAS FASTINGPERFORMED BY: [employer] [facility] [id number] LDL/HDL Ratio 1.3 {ratio_units} (Normal) Range: 0.0-3.2 Cholesterol, Total 153 mg/dL (Normal) Range: 100-199 HDL Cholesterol 60 mg/dL (Normal) Comments: According to ATP-III Guidelines, HDL-C >59 mg/dL is considered anegative risk factor for CHD. LDL Cholesterol Calc 80 mg/dL (Normal) Range: 0-99 Triglycerides 65 mg/dL (Normal) Range: 0-149 VLDL Cholesterol Hector 13 mg/dL (Normal) Range: 5-40 4-Hey-465055:19 TSH (33359) Comments: PATIENT WAS FASTINGPERFORMED BY: [employer] [facility] [id number] TSH 2.650 {uIU/mL} (Normal) Range: 0.450-4.500 10-Jmb-521441:14 Urinalysis, Office (13981) UA - BILIRUBIN Negative (Normal) UA - BLOOD Hemolyzed Small (Normal) UA - GLUCOSE Negative (Normal) UA - KETONES Negative mg/dL (Normal) UA - LEUKOCYTE ESTERASE Negative (Normal) UA - NITRITE Negative (Normal) UA - PH 7.0 (Normal) UA - PROTEIN Negative mg/dL (Normal) UA - SPECIFIC GRAVITY 1.015 (Normal) URINE UROBILINGN REYNA TIMED Normal mg/dL (Normal) 28-Rro-315387:10 TSH (THYROID STIMULATING Comments: PATIENT WAS FASTINGPERFORMED BY: [employer] [facility] [id number] HORMONE) (99096) TSH 2.500 {uIU/mL} (Normal) Range: 0.450-4.500 87-Jhm-466273:10 CALCIFEDIOL (68490) Comments: PATIENT WAS FASTINGPERFORMED BY: [facility] [id number] Vitamin D, 25-Hydroxy 48.1 ng/mL (Normal) Range: 30.0-100.0 Comments: Vitamin D deficiency has been defined by the [place] ofMedicine and an Endocrine Society practice guideline as alevel of serum 25-OH vitamin D less than 20 ng/mL (1,2).The Endocrine Society went on to further define vitamin Dinsufficiency as a level between 21 and 29 ng/mL (2).1. IOM ([place] of Medicine). 2010. Dietary reference intakes for calcium and D. [place]: The National Academies Press.2. Roberto MF, Brody [place], Maribell CADENA, et al. Evaluation, treatment, and prevention of vitamin D deficiency: an Endocrine Society clinical practice guideline. JCEM. 2010; 96(7):1911-30. 61-Mpy-525845:10 Lipid Panel (42291) Comments: PATIENT WAS FASTINGPERFORMED BY: [facility] [id number] LDL/HDL Ratio 2.3 {ratio_units} (Normal) Range: 0.0-3.2 LDL Cholesterol Calc 117 mg/dL (Abnormal) Range: 0-99 VLDL Cholesterol Hector 16 mg/dL (Normal) Range: 5-40 HDL Cholesterol 52 mg/dL (Normal) Comments: According to ATP-III Guidelines, HDL-C >59 mg/dL is considered anegative risk factor for CHD. Triglycerides 78 mg/dL (Normal) Range: 0-149 Cholesterol, Total 185 mg/dL (Normal) Range: 100-199 13-Lpq-378493:10 HEPATIC FUNCTION PANEL Comments: PATIENT WAS FASTINGPERFORMED BY: [facility] [id number] Information: [id number] (22692) ALT (SGPT) 21 [iU]/L (Normal) Range: 0-40 AST (SGOT) 20 [iU]/L (Normal) Range: 0-40 Alkaline Phosphatase, S 75 [iU]/L (Normal) Range: 25-165 Bilirubin, Direct 0.09 mg/dL (Normal) Range: 0.00-0.40 Albumin, Serum 4.0 g/dL (Normal) Range: 3.5-4.8 Bilirubin, Total 0.3 mg/dL (Normal) Range: 0.0-1.2 Protein, Total, Serum 6.5 g/dL (Normal) Range: 6.0-8.5 :41 TSH (30272) Comments: PATIENT NOT FASTINGPERFORMED BY: Tissue RegenixNew Mexico Behavioral Health Institute at Las VegasAtgbxq5179 [facility] [id number] Information: [id number] TSH 3.750 {uIU/mL} (Normal) Range: 0.450-4.500 :39 Prothrombin Time (PT) Comments: PERFORMED BY: Tissue RegenixBruce Ville 4160070 [facility] [id number] Prothrombin Time 39.0 {sec} (Abnormal) Range: 8.7-11.5 INR 3.6 (Abnormal) Range: 0.8-1.2 Comments: Client Requested Flag Reference interval is for non- anticoagulated patients. . Suggested INR therapeutic ra nge for Vitamin K antagonist therapy: Standard Dose (moderate intensity therapeutic range): 2.0 - 3.0 Higher intensity therapeutic range 2.5 - 3.5 :26 PT (PROTHROMBIN TIME) Comments: PATIENT NOT FASTINGPERFORMED BY: Anvil SemiconductorsChristine Ville [id number] [facility] [id number] Information: [id number] CC:[id number] (64584) Prothrombin Time 54.3 {sec} (Abnormal) Range: 8.7-11.5 [...] (Activated Partial Comments: PATIENT NOT FASTINGPERFORMED BY: [place] [id number] [facility] [id number] Thromboplastin Time) (67738) aPTT 39 {sec} (Abnormal) Range: 24-33 Comments: This test has not been validated for monitoring unfractionated heparintherapy. aPTT-based therapeutic ranges for unfractionated heparintherapy have not been established. For general guidelines onHeparin monitoring, refer to the Anvil SemiconductorsE[facility] Directory of Services. :51 PT (Prothrobim Time) Comments: PATIENT NOT FASTINGPERFORMED BY: [place] 6514770 [facility] [id number] Information: [id number] CC:[id number] (75790) Prothrombin Time 26.1 {sec} (Abnormal) Range: 8.7-11.5 INR 2.4 (Abnormal) Range: 0.8-1.2 Comments: Reference interval is for non-anticoagulated patients. . Suggested INR therapeutic range for Vitamin K anta gonist therapy: Standard Dose (moderate intensity therapeutic range): 2.0 - 3.0 Higher intensity therapeutic range 2.5 - 3.5 :43 HEPATIC FUNCTION PANEL Comments: PATIENT NOT FASTINGPERFORMED BY: [facility] [id number] Information: [id number] (97794) ALT (SGPT) 25 [iU]/L (Normal) Range: 0-40 AST (SGOT) 19 [iU]/L (Normal) Range: 0-40 Alkaline Phosphatase, S 73 [iU]/L (Normal) Range: 25-165 Albumin, Serum 4.4 g/dL (Normal) Range: 3.5-4.8 Bilirubin, Direct 0.09 mg/dL (Normal) Range: 0.00-0.40 Bilirubin, Total 0.3 mg/dL (Normal) Range: 0.0-1.2 Protein, Total, Serum 6.4 g/dL (Normal) Range: 6.0-8.5 :18 Lipid Panel (39511) Comments: PATIENT NOT FASTINGPERFORMED BY: An[facility] SemiconductorsMclaren Greater Lansing Hospital6370 [facility] [id number] LDL/HDL Ratio 1.3 {ratio_units} (Normal) Range: 0.0-3.2 [...] FUNCTION PANEL Comments: PATIENT NOT FASTINGPERFORMED BY: Anvil SemiconductorsMclaren Greater Lansing Hospital6370 [facility] [id number] Information: [id number] (37955) ALT (SGPT) 60 [iU]/L (Abnormal) Range: 0-40 Alkaline Phosphatase, S 66 [iU]/L (Normal) Range: 25-165 AST (SGOT) 43 [iU]/L (Abnormal) Range: 0-40 Albumin, Serum 4.3 g/dL (Normal) Range: 3.5-4.8 Bilirubin, Direct 0.10 mg/dL (Normal) Range: 0.00-0.40 Bilirubin, Total 0.3 mg/dL (Normal) Range: 0.0-1.2 Protein, Total, Serum 6.7 g/dL (Normal) Range: 6.0-8.5 :18 CALCIFEDIOL (20054) Comments: PATIENT NOT FASTINGPERFORMED BY: [facility] [id number] Vitamin D, 25-Hydroxy 57.3 ng/mL (Normal) Range: 32.0-100.0 Comments: Recent studies consider the lower limit of 32.0 ng/mL to be athreshold for optimal health.Baljit HOWELL. J Nutr. 2004;135(2):317-22. 3-Vit-277953:49 Urinalysis, Office (85765) UA - BILIRUBIN Negative (Normal) UA - BLOOD Hemolyzed Moderate (Normal) UA - GLUCOSE Negative (Normal) UA - KETONES Negative mg/dL (Normal) UA - LEUKOCYTE ESTERASE Negative (Normal) UA - NITRITE Negative (Normal) UA - PH 7.5 (Normal) UA - PROTEIN Negative mg/dL (Normal) UA - SPECIFIC GRAVITY 1.015 (Normal) URINE UROBILINGN REYNA TIMED Normal mg/dL (Normal) 70-Ucl-544061:38 Urinalysis, Office (82400) UA - BILIRUBIN Negative (Normal) UA - BLOOD Hemolyzed Small (Normal) UA - GLUCOSE Negative (Normal) UA - KETONES Negative mg/dL (Normal) UA - LEUKOCYTE ESTERASE Negative (Normal) UA - NITRITE Negative (Normal) UA - PH 7.5 (Normal) UA - PROTEIN Negative mg/dL (Normal) UA - SPECIFIC GRAVITY 1.015 (Normal) URINE UROBILINGN REYNA TIMED 2 mg/dL (Normal) 06-Aur-54611:47 Metabolic Panel, Basic Comments: PATIENT NOT FASTINGPERFORMED BY: [facility] Djgvox0737 [facility] [id number] Information: [id number] (83012) Calcium, Serum 9.6 mg/dL (Normal) Range: 8.6-10.2 [...] CULTURE-REYNA COL Comments: PATIENT NOT FASTINGPERFORMED BY: [employer] [id number] Information: SRC:UR [id number] COUNT (08387) Result 1 NG36 (Normal) Comments: No growth in 36 - 48 hours. Urine Culture,Comprehensive Final report (Normal) :29 Urinalysis, Office (56550) UA - BILIRUBIN Negative (Normal) UA - BLOOD Non Hemolyzed Moderate (Normal) UA - GLUCOSE Negative (Normal) UA - KETONES Negative mg/dL (Normal) UA - LEUKOCYTE ESTERASE Trace (Normal) UA - NITRITE Negative (Normal) UA - PH 6.0 (Normal) UA - PROTEIN Negative mg/dL (Normal) UA - SPECIFIC GRAVITY 1.020 (Normal) URINE UROBILINGN REYNA TIMED Normal mg/dL (Normal) 75-Aoc-207916:44 Microscopic Examination Comments: PATIENT WAS FASTINGPERFORMED BY: [employer] [facility] [id number] Bacteria Few (Normal) Mucus Threads Present (Normal) Epithelial Cells (non renal) 0-10 {/hpf} (Normal) Range: 0 - 10 RBC 0-3 {/hpf} (Normal) Range: 0 - 3 WBC 0-5 {/hpf} (Normal) Range: 0 - 5 00-Tfo-576927:44 CALCIFIDIOL (67295) VIT D 25 Comments: PATIENT WAS FASTINGPERFORMED BY: [employer] Jpvgwi6244 [facility] [id number] Vitamin D, 25-Hydroxy 28.6 ng/mL (Abnormal) Range: 32.0-100.0 Comments: Recent studies consider the lower limit of 32.0 ng/mL to be athreshold for optimal health.Baljit HOWELL. J Nutr. 2004;135(2):317-22. 93-Mny-962063:44 Folate (44383) Comments: PATIENT WAS FASTINGPERFORMED BY: [facility] [place] [id number] Folate (Folic Acid), Serum 12.2 ng/mL (Normal) Comments: Indeterminate: 2.2 - 3.0 Deficient: <2.2 89-Bvd-894389:44 VITAMIN B-12 (CYANOCOBALAMIN) Comments: PATIENT WAS FASTINGPERFORMED BY: [facility] [id number] (91811) Vitamin B12 351 pg/mL (Normal) Range: 211-946 59-Wbn-130029:44 SED RATE ERYTHROCYTE (60037) Comments: PATIENT WAS FASTINGPERFORMED BY: [facility] [id number] Sedimentation Rate-Westergren 2 mm/h (Normal) Range: 0-30 99-Isb-459073:44 RHEUMATOID FACTOR-QUANT (41212) Comments: PATIENT WAS FASTINGPERFORMED BY: [facility] [id number] RA Latex Turbid. 10.5 {IU/mL} (Normal) Range: 0.0-13.9 60-Ozu-121530:44 C-REACTIVE PROTEIN (37002) Comments: PATIENT WAS FASTINGPERFORMED BY: [facility] [id number] C-Reactive Protein, Quant 0.9 mg/L (Normal) Range: 0.0-4.9 16-Hru-457160:44 JOANNA (ANTINUCLEAR ANTIBODY) Comments: PATIENT WAS FASTINGPERFORMED BY: [facility] [id number] (62751) JOANNA Direct Negative (Normal) 13-Isv-823618:44 LIPID PANEL (81177) Comments: PATIENT WAS FASTINGPERFORMED BY: [facility] [place] [id number] LDL Cholesterol Calc 140 mg/dL (Abnormal) Range: 0-99 LDL/HDL Ratio 1.8 {ratio_units} (Normal) Range: 0.0-3.2 HDL Cholesterol 77 mg/dL (Normal) Comments: According to ATP-III Guidelines, HDL-C >59 mg/dL is considered anegative risk factor for CHD. VLDL Cholesterol Hector 19 mg/dL (Normal) Range: 5-40 Triglycerides 97 mg/dL (Normal) Range: 0-149 Cholesterol, Total 236 mg/dL (Abnormal) Range: 100-199 :44 TSH (01269) Comments: PATIENT WAS FASTINGPERFORMED BY: Tissue RegenixNew Mexico Behavioral Health Institute at Las VegasUvfvqn1472 [facility] [id number] TSH 1.670 {uIU/mL} (Normal) Range: 0.450-4.500 :44 URINALYSIS, W/ MICRO (75373) Comments: PATIENT WAS FASTINGPERFORMED BY: [facility] SemiconductorsMclaren Greater [facility] Hospital6370 [facility] [id number] Microscopic Examination See below: (Normal) Bilirubin Negative (Normal) Ketones Negative (Normal) Nitrite, Urine Negative (Normal) Occult Blood 1+ (Abnormal) Urobilinogen,Semi-Qn 0.2 mg/dL (Normal) Range: 0.0-1.9 Glucose Negative (Normal) Protein Negative (Normal) Appearance Clear (Normal) pH 7.0 (Normal) Range: 5.0-7.5 Urine-Color Yellow (Normal) WBC Esterase Negative (Normal) Specific [place] 1.016 (Normal) Range: 1.005-1.030 :44 MICROALBUMIN: CREATININE RATIO Comments: PATIENT WAS FASTINGPERFORMED BY: Tissue RegenixSaint Barnabas Medical CenterXblovr8530 [facility] [id number] (39403) AND (06003) Microalb/Creat Ratio 2.8 {mg/g_creat} (Normal) Range: 0.0-30.0 Creatinine, Urine 61.0 mg/dL (Normal) Range: 15.0-278.0 Microalbumin, Urine 1.7 ug/mL (Normal) Range: 0.0-17.0 :44 METABOLIC PANEL, COMPREHENSIVE Comments: PATIENT WAS FASTINGPERFORMED BY: [facility] SemiconductorsMclaren [facility] Hospital6370 [facility] [id number] (89910) ALT (SGPT) 16 [iU]/L (Normal) Range: 0-40 [...] Glucose, Serum 92 mg/dL (Normal) Range: 65-99 67-Jbg-883131:44 CBC WITH MANUAL DIFF Comments: PATIENT WAS FASTINGPERFORMED BY: LabCoSaint Barnabas Medical CenterBayyzw9953 [facility] [id number] Information: [id number] (16521) Immature Grans (Abs) 0.0 {x10E3/uL} (Normal) Range: [...] 3.80-5.10 WBC 6.1 {x10E3/uL} (Normal) Range: 4.0-10.5 05-Bjr-717899:11 BILAT [facility] DIGITAL & CAD Radiology Report See Note (Normal) Comments: Exam Number: [id number] MAMMOGRAPHY - BILATERAL SCREENING INDICATION:Routine annual screening [...] of attaching a ResultCode to this exam.ADDENDUM: [id number] HPBI/MDS Reported By: ELEANOR ERNANDEZ M.D. 4-Lbq-266504:01 TSH (93351) Comments: PATIENT NOT FASTINGPERFORMED BY: CB [facility] Zkloxi6119 [facility] [id number] Information: [id number] TSH 0.474 {uIU/mL} (Normal) Range: 0.450-4.500 16-Apr-20108:21 Thin prep Pap (34983) Comments: of cuff, has had hysterectomy; Source.............VaginalLMP / Prev Treat...HystNo. of containers..01 CYTYC Thin Prep VialPATIENT NOT FASTINGPERFORMED BY: [facility] [address] [id number] Information: [id number] Note: PAPSMR (Normal) Comments: The Pap smear [...] hysterectomy.V72.31 ; Routine gynecological exami Davion Mosley Card Game Operator (ASCP) 96-Edu-728248:57 ABDOMEN/PELVIS W/WO CONTRAST Radiology Report See Note (Normal) Comments: Exam Number: [id number] CLINICAL:Hydronephrosis CT ABDOMEN AND PELVIS WITHOUT / [...] theright-sided hydronephrosis. Reported By: SAVANA AVELAR M.D. 0-Uzy-264242:44 Urinalysis, Office (58963) UA - LEUKOCYTE ESTERASE Negative (Normal) UA - NITRITE Negative (Normal) URINE UROBILINGN REYNA TIMED Normal mg/dL (Normal) UA - PROTEIN Negative mg/dL (Normal) UA - PH 6.5 (Normal) UA - BLOOD Hemolyzed Trace (Normal) UA - SPECIFIC GRAVITY 1.010 (Normal) UA - KETONES Negative mg/dL (Normal) UA - BILIRUBIN Negative (Normal) UA - GLUCOSE Negative (Normal) 34-Ifx-535515:45 KIDNEY (HP) Radiology Report See Note (Normal) Comments: Exam Number: [id number] CLINICAL:The patient is a 69-year-old female who [...] no hydronephrosis Reported By: ELEANOR ERNANDEZ M.D. 09-Mom-252491:14 BMP BUN/CRE 17.8 {RATIO} (Normal) Range: 10-20 [...] (Normal) GLU 90 mg/dL (Normal) Range: 70-110 17-Hkf-909601:52 Iron and TIBC Comments: PATIENT NOT FASTINGPERFORMED BY: Tissue Regenix Wvwewo6980 [facility] [id number] Iron Saturation 21 % (Normal) Range: 15-55 Iron, Serum 55 ug/dL (Normal) Range: 35-155 UIBC 202 ug/dL (Normal) Range: 150-375 Iron Bind.Cap.(TIBC) 257 ug/dL (Normal) Range: 250-450 80-Vgi-328651:52 Renal function Panel (27217) Comments: PATIENT NOT FASTINGPERFORMED BY: Tissue [employer]enix Hqvjmz4126 [facility] [id number] Albumin, Serum 3.7 g/dL (Normal) Range: 3.5-4.8 [...] Glucose, Serum 91 mg/dL (Normal) Range: 65-99 03-Ral-893708:52 Ferritin (19174) Comments: PATIENT NOT FASTINGPERFORMED BY: [facility] Rrsxrk4481 [facility] [id number] Ferritin, Serum 338 ng/mL (Abnormal) Range: 13-150 54-Nys-051224:52 CBC with manual diff Comments: PATIENT NOT FASTINGPERFORMED BY: [place] 6514770 [facility] [id number] Information: [id number] (78617) Baso (Absolute) 0.0 {x10E3/uL} (Normal) Range: 0.0-0.2 [...] 3.80-5.10 WBC 7.9 {x10E3/uL} (Normal) Range: 4.0-10.5 43-Wbj-354534:20 TSH (05181) Comments: PATIENT NOT FASTINGPERFORMED BY: [facility] [id number] TSH 0.830 {uIU/mL} (Normal) Range: 0.450-4.500 06-Iob-723965:20 CBC with manual diff Comments: PATIENT NOT FASTINGPERFORMED BY: LabCoBruce [place] 4160070 [facility] [id number] Information: [id number] (83457) Hematology Comments: Note: (Normal) Comments: Verified by [...] 3.80-5.10 WBC 21.6 {x10E3/uL} (Abnormal) Range: 4.0-10.5 96-Xzw-512892:58 Serum Protein Comments: PATIENT NOT FASTINGPERFORMED BY: LabCoSaint Barnabas Medical CenterNvwscp1015 [facility] [id number] Information: ADD [id number] NO DRAW FEE Electrophoresis (SPEP) (31247) A/G Ratio 1.6 (Normal) Range: 0.7-2.0 Please note: SPRCS (Normal) Comments: Protein electrophoresis scan will follow via computer, mail, orcourier delivery. Rvmnu-3-Dpwsdmim 0.2 g/dL (Normal) Range: 0.1-0.4 Vmdfe-8-Sneefyzn 0.6 g/dL (Normal) Range: 0.4-1.2 Beta Globulin 0.9 g/dL (Normal) Range: 0.6-1.3 Gamma Globulin 0.9 g/dL (Normal) Range: 0.5-1.6 Globulin, Total 2.6 g/dL (Normal) Range: 2.0-4.5 M-Slim Not Observed g/dL (Normal) Albumin 4.2 g/dL (Normal) Range: 3.2-5.6 Protein, Total, Serum 6.8 g/dL (Normal) Range: 6.0-8.5 72-Obb-962078:58 VITAMIN B-12 (CYANOCOBALAMIN) Comments: PATIENT NOT FASTINGPERFORMED BY: [employer] Eahdqi4691 [facility] [id number] (31592) Vitamin B12 300 pg/mL (Normal) Range: 211-911 40-Fql-952472:58 SED RATE ERYTHROCYTE (59738) Comments: PATIENT NOT FASTINGPERFORMED BY: [employer] Technology srlNew Mexico Behavioral Health Institute at Las VegasDzrvfw4153 [facility] [id number] Sedimentation Rate-Westergren 2 mm/h (Normal) Range: 0-30 40-Omb-639283:20 CBC With Differential/Platelet Comments: PATIENT WAS FASTINGPERFORMED BY: [employer] Technology srlNew Mexico Behavioral Health Institute at Las VegasZrjdhi9765 [facility] [id number] Baso (Absolute) 0.1 {x10E3/uL} (Normal) Range: 0.0-0.2 [...] 3.80-5.10 WBC 5.4 {x10E3/uL} (Normal) Range: 4.0-10.5 61-Rgz-628697:20 Comp. Metabolic Panel (14) Comments: PATIENT WAS FASTINGPERFORMED BY: LabCoSaint Barnabas Medical CenterZwnmby8918 [facility] [id number] ALT (SGPT) 19 [iU]/L (Normal) Range: 0-40 [...] With LDL/HDL Comments: PATIENT WAS FASTINGPERFORMED BY: [employer]70 [facility] [id number] Ratio HDL Cholesterol 66 mg/dL (Normal) Comments: [...] 1.050 {uIU/mL} Comments: PATIENT WAS FASTINGPERFORMED BY: [employer]70 Smart EnergyReplaced by [facility] [id number] :20 (Normal) Range: 0.450-4.500 :50 CBCD,SMEAR DIFF [...] Report See Note (Normal) Comments: Exam Number: [id number] MAMMOGRAM, BILATERAL SCREENING DIGITAL AND CAD HISTORYRoutine [...] mammograms werealso examined with computer-aided detection software ([employer]il[employer], [employer]asad, [employer].). Reported By: ELEANOR ERNANDEZ M.D. :28 CBCD,SMEAR [...] 47-70 WBC 5.4 K/mm3 (Normal) Range: 4.4-11.0 73-Ljn-65091:28 COMP METABOLIC A/G 1.2 {RATIO} (Normal) Range: [...] :28 TSH 0.38 {uIU/mL} (Normal) Range: 0.34-4.82 5-Drt-993459:04 Rapid Strep Test, Office (18390) Rapid Strep Test, Office Negative (Normal) 77-Rsu-791484:34 BILAT SCRN DIGITAL & CAD Radiology Report See Note (Normal) Comments: Exam Number: [id number] MAMMOGRAM, BILATERAL SCREENING DIGITAL AND CAD HISTORYRoutine [...] mammograms werealso examined with computer-aided detection software ([employer], [employer] Reported By: ELEANOR ERNANDEZ M.D. 92-Ivc-500278:31 DEXA BONE DENSITY STUDY () Radiology Report See Note (Normal) Comments: Exam Number: [id number] BONE DENSITOMETRY HISTORYPostmenopausal. TECHNIQUE Bone densitometry of [...] withinnormal limits. Reported By: ELEANOR ERNANDEZ M.D. [id number] COMP METABOLIC A/G 1.1 {RATIO} (Normal) Range: [...] : Follow up in 3 months with [facility] Indication: Hypertensive heart disease Hematuria, unspecified [...] Gen Med in Sep 2010 make apt [facility] per pt request Indication: Hydronephrosis Hydronephrosis : Follow up for well woman with [facility] per pt request Indication: Hydronephrosis Anemia : FOLLOW UP IN 2 WEEKS January 07 by [facility] Indication: Anemia Abdominal pain, acute, generalized : FOLLOW UP IN 1 WEEK with [facility] Indication: Abdominal pain, acute, generalized Diarrhea [...] Indication: Bronchitis Planned Observations Metabolic Panel, Comprehensive ([id number])Indication: Hypercholesterolemia On: 2-Dyi-116032:52 Request Comments: Jun 2018 LIPID PANEL ([id number])Indication: Hypercholesterolemia On: 7-Jkd-569760:51 Request Comments: Jun 2018 URINALYSIS ([id number])Indication: Hypertension, essential, benign On: 90-Vvm-380380:52 Request MICROALBUMIN: CREATININE RATIO ([id number]) AND ([id number])Indication: Hypertension, essential, benign On: 51-Wpl-073232:52 Request Metabolic Panel, Comprehensive ([id number])Indication: Hypertension, essential, benign On: 13-Iym-316295:50 Request Comments: send to [facility] CBC, Platelets & Auto Diff (56002)Indication: Hypertension, essential, benign On: 12-Cci-267876:50 Request Comments: send to [facility] TSH ([id number])Indication: Hypothyroidism On: 84-Gbw-315883:50 Request Comments: send to [facility] LIPID PANEL ([id number])Indication: Hypercholesterolemia On: 82-Swg-687058:50 Request Comments: send to [facility] URINALYSIS ([id number])Indication: Hypertension, essential, benign On: 0-Yeb-757537:03 Request Comments: today MICROALBUMIN: CREATININE RATIO ([id number]) AND ([id number])Indication: Hypertension, essential, benign On: 8-Sqo-267131:03 Request Comments: today TSH ([id number])Indication: Hypothyroidism On: 2-Sww-663978:03 Request Comments: Jul 2017 MICROALBUMIN: CREATININE RATIO ([id number]) AND (47152)Indication: Hypertension, essential, benign On: 27-Xad-916912:51 Request Comments: Mar 2017 URINALYSIS ([id number])Indication: Hypertension, essential, benign On: 86-Szd-149735:51 Request Comments: Mar 2017 TSH ([id number])Indication: Hypertension, essential, benign On: 11-Szo-508023:51 Request Comments: Mar 2017 CBC, Platelets & Auto Diff ([id number])Indication: Hypertension, essential, benign On: 32-Eaw-601859:51 Request Comments: Mar 2017 Metabolic Panel, Comprehensive ([id number])Indication: Hypertension, essential, benign On: 02-Eaf-655349:51 Request TSH (THYROID STIMULATING HORMONE) ([id number])Indication: Hypothyroidism On: 28-Lnw-755796:53 Request HEPATIC FUNCTION PANEL (89758)Indication: Hypertension, essential, benign On: 07-Jwd-106161:47 Request VITAMIN B12 AND FOLATES (49463)Indication: Vitamin B 12 deficiency On: 4-Qpx-835778:52 Request CALCIFEDIOL ([id number])Indication: DEFICIENCY, VITAMIN D NOS On: 8-Ojj-657624:52 Request Urinalysis, Office (96266)Indication: Hematuria, unspecified On: 96-Sti-305162:35 Request MICROALBUMIN URINE QUANT ([id number])Indication: Hypertensive heart disease On: 34-Efq-512522:25 Request FECAL OCCULT HGB ASSAY- tubes sent home (72052)Indication: Well woman exam On: 5-Dpl-016956:51 Request OCCULT BLOOD FECES SCREEN- card done in office ([id number])Indication: Well woman exam On: 0-Jpv-093503:51 Request Renal function Panel ([id number])Indication: Hydronephrosis On: 4-Eku-707534:22 Request Iron ([id number])Indication: Anemia On: 96-Orf-112645:39 Request Iron Binding Capacity (TIBC) (07257)Indication: Anemia On: 11-Mcb-646324:39 Request OVA & PARASITE DIR SMEAR ([id number])Indication: Diarrhea On: 39-Dcw-338965:50 Request OCCULT BLOOD FECES SCREEN ([id number])Indication: Diarrhea On: 56-Npg-571437:50 Request LEUKOCYTE COUNT, FECAL ([id number])Indication: Diarrhea On: 38-Xvr-504687:50 Request C-DIFFICILE, STOOL ([id number])Indication: Diarrhea On: 54-Gap-209134:50 Request LORNA CULTURE-STOOL (75393)Indication: Diarrhea On: 41-Mem-188810:50 Request HEPATIC FUNCTION PANEL ([id number])Indication: Hypercholesterolemia On: 17-Cjw-191806:46 Request Lipid Panel ([id number])Indication: Hypercholesterolemia On: 31-Whq-617143:46 Request Comments: in three months (approximately) TSH ([id number])Indication: Hypothyroidism On: 27-Qsl-579108:06 Request METABOLIC PANEL, COMPREHENSIVE ([id number])Indication: Hypertensive heart disease On: 86-Lbp-371082:06 Request LIPID PANEL ([id number])Indication: Hypertensive heart disease On: 64-Uzo-155552:06 Request CBC WITH MANUAL DIFF ([id number])Indication: Hypertensive heart disease On: 13-Pvr-479585:06 Request LORNA CULTURE-OTHER ([id number])Indication: Pharyngitis, acute On: 3-Trt-245158:04 Request CBC (Auto) ([id number])Indication: Hypercholesterolemia On: 60-Kfy-18341:13 Request Lipid Panel ([id number])Indication: Hypercholesterolemia On: :13 Request Metabolic Panel, Comprehensive ([id number])Indication: Hypercholesterolemia On: :13 Request Comments: in six months (approximately) TSH (84852)Indication: Hypothyroidism On: 86-Xpk-900269:06 Request LIPID PANEL ([id number])Indication: Hypertension On: 47-Fhl-418984:01 Request Planned Encounters Medical; 3 Month FU - On: 14-Jun-2018 10:45 [facility] Sarai Bro CNP, CNP, Mary E Planned Procedures Flu Vaccine (Quadrivalent) On: 02-Jun-2018 Intent 13467Fa: Sarai Bro CNP Comments: Lot #[id number]-7/30/2019Site-L dltd, IMDose prefilled syringegiven by: SHARONDA CHOINVIS reviewed and ABN signed Sarai Bro CNP MAMMOGRAM BREAST BILATERAL On: 27-May-2018 Intent SCREENING DIGITAL ([id number])By: Sarai Bro CNP, CNP, Mary E Radiology - Femur - RightBy: On: 02-Mar-2018 Intent Sarai Bro CNP, CNP, Mary E DEXA SCAN AXIAL SKELETON On: 19-Oct-2017 Intent ([id number])By: Sarai Bro CNP, CNP, Mary E Aerosol Treatment ([id number])By: On: 07-Sep-2017 Intent Kelly Naqvi Comments: Lungs clear after aerosol treatment Flu Vaccine (Quadrivalent) On: 13-Apr-2017 Intent 54520Sj: Giselle Silva LPN Comments: InfluenzaLot #[id number]/18/18Site-L dltd, IMDose prefilled syringeVIS and ABN signedgiven by:ROSA MARIA cade MAMMOGRAM BREAST BILATERAL On: 05-Jan-2017 Intent SCREENING DIGITAL ([id number])By: Comments: after Apr 24 2017 Sarai Bro CNP, CNP, Mary E DEXA SCAN AXIAL SKELETON On: 05-Jan-2017 Intent ([id number])By: Sarai Bro CNP Comments: After Apr 24 2017 Sarai Bro CNP Flu Vaccine (Quadrivalent) On: 06-Jul-2016 Intent 69033Du: Giselle Silva LPN Comments: InfluenzaLot #Lot [id number]/30/17Site-L dltd, IMDose prefilled syringeVIS and ABN signedgiven by:ROSA MARIA cade MAMMOGRAM, SCREENING, BOTH On: 31-Mar-2016 Intent BREAST ([id number])By: Sarai Bro CNP, CNP, Mary E MAMMOGRAM, SCREENING, BOTH On: 17-Feb-2016 Intent BREAST ([id number])By: Sarai Bro CNP, CNP, Mary E PHYSICAL THERAPY EVALUATION On: 28-Jan-2016 Intent ([id number])By: Sarai Bro CNP, CNP, Mary E PHYSICAL THERAPY EVALUATION On: 28-Jan-2016 Intent ([id number])By: Sarai Bro CNP, CNP, Mary E Toradol Injection, 30 mg On: 28-Jan-2016 Intent ([id number])By: Hang ANGELIKASarai CNP, Mary E Radiology - Lumbar SpineBy: On: 28-Jan-2016 Intent Sarai Bro CNP, CNP, Mary E Radiology - Knee - LeftBy: On: 28-Jan-2016 Intent Sarai Bro CNP, CNP, Mary E Aerosol Treatment ([id number])By: On: 24-Dec-2015 Intent Sarai Bro CNP, CNP, Mary E Flu Vaccine (Quadrivalent) On: 10-May-2015 Intent 17221Dy: Roccoyin CANREY Sarai Moon Comments: Lot:[id number]:02/06/16Dose:0.5mLRoute:IMSite:L DltdGiven By:Kacie signed Hang ANGELIKA Sarai Moon DEXA SCAN AXIAL SKELETON On: 19-Mar-2015 Intent ([id number])By: Hang CARNEY Sarai Bro ANGELIKA Sarai Moon MAMMOGRAM, SCREENING, BOTH On: 11-Feb-2015 Intent BREAST ([id number])By: Hang ANGELIKA Sarai Busby CNP DEXA SCAN AXIAL SKELETON On: 11-Feb-2015 Intent ([id number])By: Hang ANGELIKASarai CNP, Mary E Solu -Medrol Injection, 125 On: 25-Jul-2014 Intent mg (J2930)By: Tiffaniewojciechyin CARNEY, Comments: [id number] 5.17right gm125 mgas, DECORATOR MANNEQUIN Sarai Busby CNP Aerosol Treatment (32899)By: On: 25-Jul-2014 Intent Sarai Bro CNP, CNP, Mary E Toradol Injection, 30 mg On: 18-Jul-2014 Intent ([id number])By: Hang ANGELIKASarai CNP, Mary E Radiology - Lumbar SpineBy: On: 18-Jul-2014 Intent Sarai Bro CNP, CNP, Mary E Radiology - Hip - RightBy: On: 18-Jul-2014 Intent Sarai Bro CNP, CNP, Mary E Prevnar 13 ([id number])By: Ricardo On: 16-Jul-2014 Intent Giselle CRANE Comments: [id number] arm, IMAS Bone Density StudyBy: Hang On: 15-May-2014 Intent Sarai CARNEY CNP Sarai Moon ADMINISTRATION OF INFLUENZA On: 15-May-2014 Intent VIRUS VACCINE (G0008)By: Hang CARNEY Sarai Bro CNP Sarai Moon FLU VAC, SPLIT, >3 YEARS, On: 15-May-2014 Intent INTRAMUSC (03648)By: Hang Comments: Lot:[id number]:04/24Dose:0.5mLRoute:IMSite:L DltdGiven By:FIDENCIO signed Sarai CARNEY CNP Sarai Moon SPECIMEN HNDLNG/TRNSPRT, OFFC On: 22-Mar-2014 Intent > LAB ([id number])By: Hang CARNEY Sarai Bro ANGELIKA Sarai Moon BILATERAL MAMMOGRAMS On: 18-Dec-2013 Intent ([id number])By: Hang CARNEY Sarai Bro ANGELIKA Sarai Moon Aerosol Treatment (01760)By: On: 22-Sep-2013 Intent Tiffaniewojciechyin CARNEY Sarai Bro CNP Sarai Moon Wax CurettesBy: Tiffaniewojciechyin CARNEY, On: 22-Sep-2013 Intent Sarai Bro CNP Sarai Moon Ear Irrigation (87308)By: On: 22-Sep-2013 Intent Sarai Bro CNP, CNP Sarai Moon Eprescribed prescriptions On: 18-Aug-2013 Intent (G8553)By: Lucrecia Vargas Eprescribed prescriptions On: 05-May-2013 Intent (G8553)By: Hang CARNEY Sarai Bro CNP Sarai Moon ADMINISTRATION OF INFLUENZA On: 05-May-2013 Intent VIRUS VACCINE (G0008)By: Comments: lot # [id number]- 6.2014site- L dltdroute-IMdose- 0.5mlRICHARD and ROMEL signedPenny Hauser LPN, LPN FLU VAC, SPLIT, >3 YEARS, On: 05-May-2013 Intent INTRAMUSC (05369)By: Penny Irving LPN MAMMOGRAM, SCREENING, BOTH On: 16-Dec-2012 Intent BREASTS (64716)By: Sarai Bro CNPesyin CARNEY Rianna Spirometry (48194)By: Aristides On: 16-Dec-2012 Intent Penny CRANE Comments: mild airway obstruction Aerosol Treatment (88430)By: On: 30-Mar-2012 Intent Tiffaniewojciechyin CARNEY Sarai Moon Tiffaniewojciechyin CARNEY Rianna PFT - CompleteBy: Hang CARNEY, On: 01-Mar-2012 Intent Sarai Moon Tiffaniewojciechyin CARNEY Rianna Inhaler Demonstration On: 28-Dec-2011 Intent ([id number])By: Hang CARNEY RiannaRed Bro CNP Rianna Pulse Oximetry (49610)By: On: 28-Dec-2011 Intent Roccoyin CARNEY Sarai Bro ANGELIKA Rianna Eprescribed prescriptions On: 22-Apr-2011 Intent (G8553)By: Hang CARNEY Rianna Ciwojciechyin CARNEY Rianna Eprescribed prescriptions On: 21-Oct-2010 Intent (G8553)By: Hang CARNEY Rianna Ciwojciechyin CARNEY Rianna Eprescribed prescriptions On: 21-Oct-2010 Intent (G8553)By: Hang CARNEY Rianna Ciwojciechyin CARNEY Rianna MAMMOGRAM, SCREENING, BOTH On: 15-Apr-2010 Intent BREASTS (21331)By: Hang CARNEY Rianna Ciwojciechyin CARNEY Rianna Ultrasound - RenalBy: Hang On: 23-Dec-2009 Intent ANGELIKA RiannaRed Bro CNP Rianna Comments: To be done on December 30 CT - Abdomen & Pelvis (IV On: 17-Dec-2009 Intent Contrast Needed)By: Hang CARNEY RiannaRed Bro CNP Rianna ADMINISTRATION OF INFLUENZA On: 22-May-2009 Intent VIRUS VACCINE (G0008)By: Karina Nina LPN FLU VAC, SPLIT, >3 YEARS, On: 22-May-2009 Intent INTRAMUSC (19732)By: Kelle Comments: Lot #[id number]-left deltoidgiven by:Karina PLAZA LPN Pulse Oximetry (37003)By: On: 25-Sep-2008 Intent PRESTON Thompson ADMINISTRATION OF INFLUENZA On: 13-Jun-2008 Intent VIRUS VACCINE (G0008)By: Comments: lot #[id number] exp- 01/15site-left delroute-imdose- 0.5 Penny Irving LPN FLU VAC, SPLIT, >3 YEARS, On: 13-Jun-2008 Intent INTRAMUSC (86001)By: Penny Irving LPN MAMMOGRAM, SCREENING, BOTH On: 28-May-2008 Intent BREASTS (33405)By: Susan Lee MD Bio Z (42824)By: Rosa CHRISTIANSEN, On: 28-Nov-2007 Intent Susan Sánchez SPECIMEN HNDLNG/TRNSPRT, OFFC On: 12-Oct-2007 Intent > LAB (31528)By: Tyesha Ramos DO Bone Density StudyBy: Rosa On: 18-Feb-2007 Intent Susan CHRISTIANSEN Comments: ache in back MAMMOGRAM, SCREENING, BOTH On: 18-Feb-2007 Intent BREASTS (25466)By: Susan Lee MD Bio Z ([id number])By: Rosa CHRISTIANSEN, On: 20-Jul-2006 Intent Susan Sánchez Planned Medications INJECTION, KETOROLAC TROMETHAMINE, PER 15 MG Ordered: 18-Jul-[address] [employer] [address] [employer], Rianna [place] [employer], Rianna INJECTION, KETOROLAC TROMETHAMINE, PER 15 MG Ordered: 28-Jan-[address] [place] [employer] [employer] [facility] [employer], Rianna [place] [employer], Rianna INJECTION, METHYLPREDNISOLONE SODIUM SUCCINATE, UP TO 125 MG Ordered: 25-Jul-[address] [place] [employer], Rianna [place] [employer], Rianna Instructions Name Dates Details Nonsmoker : [...] patient does have durable power of patent prosecution attorney and living will. The patient has noticed nothing from the geriatic depression scale. Other providers contributing to the katty ent's care are pediatric rn (Dr paz ), waste baler (Dr Vazquez ), urologist (Dr Pope ) [...]
--- OUTSIDE RECORDS SUMMARY | 2018-10-30 18:26 | XMS RPT_ITS | Continuity of Care Document ---
:1940 Author Organization [facility] Address [address] [facility] [address] [place] [address] Phone Care Team Providers Name Role Phone Tiffaniebonita ANGELIKA, Rianna Unavailable Amanda CHRISTIANSEN, Higinio Longoria Unavailable Turner CHRISTIANSEN, Nahun Plaza Unavailable [facility] BC, Eugenie Tovar Unavailable Rosa CHRISTIANSEN, [...] : 18-Aug-2013 End : 28-Aug-2013 Inactive DRISDOL, [id number] (Oral Capsule) 1 Capsule twice weekly for [...] for 0 days Refills: 0 Ordered:31-Mar-2010 Aristides MARBLE INSTALLER SUPERVISOR, ChrissieInactive LEVSIN/SL, 0.125MG (Sublingual Tablet Sublingual) Tab [...] Quantity: 21 {Tablet} Refills: 0 Ordered:15-Nov-2017 Hang LIME SPREADER, Sarai Malka LIME SPREADER, Rianna Start : 15-Nov-2017 End : 22-Nov-2017 [...] Quantity: 60 {Capsule} Refills: 0 Ordered:10-May-2015 Slarb MARBLE INSTALLER SUPERVISORGiselle Benson Start : 22-Apr-2011 End : 10-May-2015 [...] Lower Extremity Result: Comments: See Note; NOTES: [facility] Cardiovascular Services [address] [place] [address] Venous Duplex US - Paulie Extrem 04/07/18 1000 MR#: [id number] Acct: [id number] Name: VALERIE CRAIN Rep #: [id number] : 1940 77 From: Higinio Patel MD [...] Date Higinio Patel MD CC: Sarai Bro MERCHANDISE FOR RESALE PURCHASING AGENT; Higinio Patel MD Date Dictated: 04/07/18 1000 Date Transcribed: 04/08/18 160 Technical Research Scientist: Signed 02-Mar-2018 Femur Min 2 Views Result: Comments: See Note; NOTES: [facility] Imaging Services [address] [place] [address] Femur Min 2 Views MR#: [id number] Acct: [id number] Name: VALERIE CRAIN Rep #: [id number] : 1940 F 77 From: Christiano Croft MD PCP: Sarai Bro NP Status: REG CLI Study: Femur Min 2 Views Date of Exam: 03/02/18 Exam# [id number] Ordering Dr: Sarai Bro STUDY: X-RAY - [...] vice support , CC: Sarai Bro NP Technical Research Scientist: Signed 10-Feb-2018 Echocardiogram Complete Result: Comments: See Note; NOTES: [facility] Cardiovascular Services [address] [place] [address] Echo Complete 02/10/18 1100 MR#: [id number] Acct: [id number] Name: VALERIE CRAIN Rep #: [id number] : 1940 77 From: Amilcar Paz MD Attending Dr: Jennifer Goodwin Status: REG CLI Ordering Dr: Jennifer Goodwin Date: 02/10/18 Location: [facility] Sex: F C Admitted: [facility] [...] Date Amilcar Paz MD CC: Sarai Bro MERCHANDISE FOR RESALE PURCHASING AGENT; Jennifer Goodwin Date Dictated: 02/10/18 1100 Date Transcribed: 02/10/18 1241 Technical Research Scientist: Signed 28-Jan-2018 Cardiology Visit Report Result: Comments: See Note; NOTES: [facility] [address] [place] [address] OFFICE VISIT Date of Service: 01/28/18 MR#: [id number] Acct: [id number] Name: VALERIE CRAIN Rep #: [id number] : 1940 Provider: Jennifer Goodwin Age/Sex: 77/F [place] [facility] [place] Status: Signed HPI HPI Details: VALERIE [...] for her age. 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 She does [...] valve disorder (Chronic) Paroxysmal atrial fibrillation (Chronic) long-term (current) use of anticoagulants (Chronic) Benign essential HTN (Chronic) Surgical History History of appendectomy (Resolved) H/O mitral valve repair (Chronic) Family History Father Decea sed, age 48 from [place] CAD (coronary artery disease) Sudden cardiac Myocardial [...] prior to saving. 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 This patient may have a combination of pa per and electronic documentation or all paper documentation. All documentation is viewable within the e-chart portion of [employer] for each patient visit. 09-Nov-2017 Dexa Bone Density Study Result: Comments: See Note; NOTES: [facility] Imaging Services [address] [place] [address] Dexa Bone Density Study MR#: [id number] Acct: [id number] Name: VALERIE CRAIN Rep #: [id number] : 1940 F 77 From: Henry Jones MD PCP: Sarai Bro NP Status: REG CLI Study: Dexa Bone Density Study Date of Exam: 11/09/17 Exam# [id number] Ordering Dr: Sarai Bro STUDY: DUAL E [...] Henry Jones MD at 13:40 EDT Tel [phone], Service support , CC: Sarai Bro NP Technical Research Scientist: Signed 27-Jul-2017 Cardiology Visit Report Result: Comments: See Note; NOTES: [facility] 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 (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) Benign essential HTN (Chronic) Dyslipidemia (Chronic) mitral maria m vuplasty (Chronic) Surgical History H/O mitral valve repair (Chronic) Family History Father , age 48 from [place] CAD (coronary artery disease) Sudden cardiac Myocardial [...] Signature: Date (if applicable) CC: Sarai Bro MERCHANDISE FOR RESALE PURCHASING AGENT 17-May-2017 SCREENING MAMM (CAD), BILAT Result: Comments: See Note; NOTES: [facility] Imaging Services [address] [place] [address] SCREENING MAMM (CAD), BILAT MR#: [id number] Acct: [id number] Name: SEAN CRAIN Rep #: [id number] : 1940 F 76 From: Henry Jones MD PCP: Sarai Bro Status: REG CLI Study: SCREENING MAMM (CAD), BILAT Date of Exam: 05/17/17 Exam# [id number] Ordering Dr: Sarai Bro MAMMOGRAPH Y - [...] delay biopsy of a clinically suspicious abnormality. [id number] Electronically Signed: Henry Jones MD at 10:21 EDT Tel [phone], Service support , CC: Sarai Bro Technical Research Scientist: Signed 27-Feb-2017 Carotid Duplex Ultrasound Result: Comments: See Note; NOTES: [facility] Cardiovascular Services [address] [place] [address] Carotid Duplex Ultrasound 02/26/17 1046 MR#: [id number] Acct: [id number] Name: SEAN ABEBE Rep #: [id number] : 1940 76 From: Malcolm Hill MD Attending Dr: Jennifer Goodwin Status: REG CLI Ordering Dr: Jennifer Goodwin Date: 02/26/17 Location: [facility] Sex: F C Admitte d: Reason For [...] Dictated: 02/26/17 1046 Date Transcribed: 02/27/17 1103 Technical Research Scientist: Signed 03-Sep-2016 Chest PA and Lateral Result: Comments: See Note; NOTES: [facility] Imaging Services [address] [place] [address] Verdana 4d Chest PA and Lateral MR#: [id number] Acct: [id number] Name: SEAN CRAIN Rep # : [id number] : 1940 F 76 From: Henry Jones MD PCP: Sarai Bro Status: REG CLI Study: Chest PA and Lateral Date of Exam: 09/03/16 Exam# [id number] Ordering Dr: Nahun Vazquez MD STUD Y: [...] Henry diop MD at 12:41 EST Tel [phone], Service support [phone], CC: Sarai Bro; Nahun Vazquez MD Technical Research Scientist: Signed 28-Aug-2016 Echocardiogram Complete Result: Comments: See Note; NOTES: [facility] Cardiovascular Services [address] [place] [address] Echo Complete 08/28/16 1003 MR#: [id number] Acct: [id number] Name: SEAN CRAIN p #: [id number] : 1940 76 From: Amilcar Paz MD Attending Dr: Jackson CHRISTIANSEN,Amilcar Status: REG CLI Ordering Dr: Amilcar Paz MD Date: 08/28/16 Location: [facility] Sex: F C Admitted: Reason For Study: AT [facility] FIB[facility]LLATION Procedure This was a [...] Dictated: 08/28/16 1003 Date Transcribed: 08/28/16 1225 Technical Research Scientist: Signed 24-Apr-2016 Bilat Scrn Digital AND CAD Result: Comments: See Note; NOTES: [facility] Imaging Services [address] [place] [address] Verdana 4d Bilat Scrn Digital AND CAD MR#: [id number] Acct: [id number] Name: BREANNSEAN Rep #: [id number] : 1940 F 75 From: Henry Jones MD PCP: Sarai Bro Status: REG CLI Study: Jero Edwards Digital AND CAD Date of Exam: 04/24/16 Exam# [id number] Ordering Dr: Sarai Bro MAMMOGRAPHY - BILATERAL [...] significant change since the prior study. ___ [facility]/Jero Edwards Digital AND CAD IMPRESSION: Stable bilateral screening mammogram. Yearly follow-up mammogram recommended. (A) ASSESSMENT CATEGORY: BIRADS Category 1: Negative. A letter regarding these results will be sent to the patient by the facility within 30 days. Approximately 10% of breast cancers are n ot detected by mammography. A normal mammogram should not delay biopsy of a clinically suspicious abnormality. [id number] Electronically Signed: Henry Jones MD at 10:58 EDT Tel [phone], Service support [phone], CC: Sarai Bro Technical Research Scientist: Signed 04-Mar-2016 PT D/C Summary (1) Result: Comments: See Note; NOTES: [facility] Physical Therapy [facility] [address] [place] [address] Fax REHABILITATION [facility] DISCHARGE SUMMARY MR#: [id number] Acct: [id number] Name: SEAN CRAIN Rep #: [id number] : 1940 75 From: Giselle NELSON Referring [...] please feel free to call me at [phone]. Thank you for the referral of this patie nt. Sincerely, Giselle Yan <Electronically signed by Giselle Yan MPT> 03/04/161916 CC: Sarai Bro Signed 04-Feb-2016 Inital Evaluation (1) - PT Result: Comments: See Note; NOTES: [facility] Physical Therapy [facility] [address] [facility] [place] [address] Fax [facility]AB[facility]ATION [facility] INITIAL EVALUATION MR#: [id number] Acct: [id number] Name: SEAN CRAIN Rep #: [id number] : 1940 75 From: Giselle Yan MPT Referring Dr.: Sarai Bro Status: REG RCR Insurance: MEDICARE PART A B [facility] Patient's Visit Information SEAN CRAIN is [...] to be FAXED BACK to us at [phone] for Medicare purposes . Please let me know if there are questions or concerns regarding this plan of care. Physician Signature: Date: <Electronical ly signed by Giselle Yan MPT> 02/04/16 1628 CC: Sarai Bro Signed For Medicare only, by signing this I certify the plan of care. Physicians Signature Date 28-Jan-2016 Knee 4 or More Views Result: Comments: See Note; NOTES: [facility] Imaging Services [address] [place] [address] Verdana 4d Knee 4 or More Views MR#: [id number] Acct: [id number] Name: SEAN DWYER Rep #: [id number] : 1940 F 75 From: Shreyas Beaver MD PCP: Sarai Bro Status: REG CLI Study: Knee 4 or More Views Date of Exam: 01/28/16 Exam# [id number] Ordering Dr: Sarai Bro STUDY: X-RAY - [...] MD at 19:39 EDT , Service support [phone], ORDER # : [id number] RAD/Knee 4 or More Views IMPRESSION: No acute abnormality. Mild degenerative changes. Electronically Signed: Shreyas Beaver MD at 19:39 EDT , Service sup port [phone], CC: Sarai Bro Technical Research Scientist: Signed 28-Jan-2016 L/S Spine Min 4 Views Result: Comments: See Note; NOTES: [facility] Imaging Services [address] [place] [address] Verdana 4d L/S Spine Min 4 Views MR#: [id number] Acct: [id number] Name: SEAN BERRIOS Rep #: [id number] : 1940 F 75 From: Shreyas Beaver MD PCP: Sarai Bro Status: REG CLI Study: L/S Spine Min 4 Views Date of Exam: 01/28/16 Exam# [id number] Ordering Dr: Shital Bro STUDY: X-RAY - [...] MD at 19:40 EDT , Service support [phone], Fax RAD/L/S Spine Min 4 Views IMPRESSION: No acute abnormality. Mild to moderate degenerative changes. Electronically Signed: Shreyas Beaver MD at 19:40 EDT T el [phone], Service support [phone], CC: Sarai Bro Technical Research Scientist: Signed 19-Mar-2015 Dexa Bone Density Study (HP) Result: Comments: See Note; NOTES: [facility] Imaging Services [address] [place] [address] Bone Density Report MR#: [id number] Acct: [id number] Name: SEAN CRAIN Rep #: [id number] : 1940 F 74 From: Henry Jones MD PCP: Sarai Bro Status: REG CLI Study: Dexa Bone Density Study (HP) Date of Exam: 03/19/15 Exam# [id number] Ordering Dr: Sarai Bro STUD Y: DUAL [...] Henry Jones MD at 14:35 EDT Tel [phone], Servic e support [phone], CC: Sarai Bro Technical Research Scientist: Signed 12-Mar-2015 Bilat Scrn Digital AND CAD Result: Comments: See Note; NOTES: [facility] Imaging Services [address] [place] [address] Breast Imaging Report MR#: [id number] Acct: [id number] Name: SEAN CRAIN Rep #: [id number] : 1940 F 74 From: Henry Jones MD PCP: Sarai Bro Status: REG CLI Study: Bilat Scrn Digital AND CAD Date of Exam: 03/12/15 Exam# [id number] Ordering Dr: Sarai Bro MAMM OGRAPHY - [...] Jones MD 23/03/04 at 9:59 EDT Tel [phone], Service support [phone], CC: Sarai Bro Technical Research Scientist: Signed 16-Jan-2015 Operative Report Result: Comments: See Note; NOTES: [facility] Medical Records Department [address] [place] [address] Operative Report MR#: [id number] Acct: [id number] Name: SEAN CRAIN Rep #: [id number] : 1940 74 From: Amilcar Paz MD [...] care. Amilcar Paz MD T: NTS JOB: [id number] 01/16/15 0901 <Electronically signed by Amilcar Paz MD&amp ;#62; Date Amilcar Paz MD CC: Sarai Bro; Amilcar Paz MD Date Dictated: 01/14/151318 Date Transcribed: 01/14/151318 Technical Research Scientist: Signed 15-Jan-2015 Consultation Result: Comments: See Note; NOTES: [facility] Medical Records Department [address] [place] [address] Consultation MR#: [id number] Acct: [id number] Name: SEAN CRAIN Rep #: [id number] : 1940 74 From: Armando Guerra MD [...] C C: Amilcar Bro T: NTS JOB: [id number] 01/15/15 0643 <Electronically signed by Armando Guerra MD> Date Armando Guerra MD CC: Sarai Bro; Armando Guerra MD; Amilcar Paz MD Date Dictated: 01/14/151356 Date Transcribed: 01/14/151356 Technical Research Scientist: Signed 07-Jan-2015 Chest PA and Lateral Result: Comments: See Note; NOTES: [facility] Imaging Services [address] [place] [address] Radiology Report MR#: [id number] Acct: [id number] Name: SEAN CRAIN Rep #: [id number] : 1940 F 74 From: Henry Jones MD PCP: Sarai Bro Status: PRE CLI Study: Chest PA and Lateral Date of Exam: 01/07/15 Exam# [id number] Ordering Dr: Amilcar Paz MD STUDY: X-RA [...] Henry Jones MD at 14:28 EDT Tel [phone], Service support [phone], RAD/Chest PA and Lateral IMPRESSION: Hyperinflation. No acute abnormality is seen. Electronically Signed: Henry Jones MD 2014 at 14:28 EDT Tel [phone], Service support [phone], CC: Sarai Bro; Amilcar Paz MD Technical Research Scientist: Signed 24-Dec-2014 Echocardiogram Complete Result: Comments: See Note; NOTES: [facility] Cardiovascular Services [address] [place] [address] Echo Complete 12/24/14 1003 MR#: [id number] Acct: [id number] Name: SEAN CRAIN Rep #: [id number] : 1940 74 From: Amilcar Paz MD Attending Dr: Jennifer Monroe Status: REG CLI Ordering Dr: Jennifer Monroe Date: 12/24/14 Location: [facility] Sex: F C Admitted: Pr raji This [...] Jennifer Monroe Performed By: SANTA Banegas 12/24/14 7489 Date Amilcar Paz MD CC: Sarai Bro; Jennifer Monroe Date Dictated: 12/24/14 1003 Date Transcribed: 12/24/14 1359 Technical Research Scientist: Signed 19-Jul-2014 Hip min 2 Views Result: Comments: See Note; NOTES: [facility] Imaging Services [address] [place] [address] Radiology Report MR#: [id number] Acct: [id number] Name: SEAN CRAIN Rep #: [id number] : 1940 F 74 From: Henry Jones MD PCP: Sarai Bro Status: REG CLI Study: Hip min 2 Views Date of Exam: 07/19/14 Exam# [id number] Ordering Dr: Sarai Bro STUDY: X-RAY - [...] Henry Jones MD at 11:38 EST Tel [phone], Service support [phone], RAD/Hip min 2 Views IMPRESSION: Degenerative changes of the hip. Electronically Signed: Henry Jones MD at 11:38 EST Tel [phone], Service support [phone], CC : Sarai Bro Technical Research Scientist: Signed 19-Jul-2014 L/S Spine Min 4 Views Result: Comments: See Note; NOTES: [facility] Imaging Services [address] [place] [address] Radiology Report MR#: [id number] Acct: [id number] Name: SEAN CRAIN Rep #: [id number] : 1940 F 74 From: Henry Jones MD PCP: Sarai Bro Status: REG CLI Study: L/S Spine Min 4 Views Date of Exam: 07/19/14 Exam# [id number] Ordering Dr: Sarai Bro STUDY: X-RAY - [...] Henry Jones MD at 13:19 EST Tel [phone], Service support [phone], CC: Sarai Bro Technical Research Scientist: Signed 05-Jan-2014 Bilat Scrn Digital & CAD Result: Comments: See Note; NOTES: [facility] Imaging Services [address] [facility] [place] [address] Breast Imaging Report MR#: [id number] Acct: [id number] Name: SEAN CRAIN Rep #: [id number] : 1940 F 73 From: Henry Jones MD PCP: Status: [facility] CLI Exam# [id number] Ordering Dr: Sarai Bro MAMMOGRAPHY - BILATERAL [...] Henry Jones MD at 9:58 EDT Tel [phone], Service support [phone], CC: Sarai Bro; Amilcar Paz MD Technical Research Scientist: Signed Immunization Name Dates Details Influenza (3 years and up) on: 13-Jun-2008 Influenza (3 years and up) on: 22-May-2009 Comments: Lot #[id number] deltoidgiven by:CDH Family History Unknown Family Member Name Dates Details Father Comments: [place] at 48 & Status: Active Social History Name Dates Details Caffeine Use Comments: 2 cups coffee qd 1 soda qod Status: Active 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 Status: Inactive Tobacco use: Never smoker. Status: Inactive Vital Signs Date Test Result Details 67-Xgr-381053:20 Temperature 99.4 f Comments: Method: Temporal Pulse [...] kg/m2 Body Surface Area Calculated 1.87 m2 9-Wib-011804:30 Temperature 97.7 f Comments: Method: Temporal Pulse [...] kg/m2 Body Surface Area Calculated 1.86 m2 65-Ofi-737120:20 Temperature 98.2 f Pulse 67 /min Comments: [...] kg/m2 Body Surface Area Calculated 1.85 m2 12-Eqv-587837:44 Temperature 98 f Comments: Method: Oral Pulse [...] kg/m2 Body Surface Area Calculated 1.81 m2 21-Tvv-406870:30 Temperature 99.2 f Comments: Method: Oral Pulse [...] kg/m2 Body Surface Area Calculated 1.81 m2 36-Ibv-635080:39 Temperature 99 f Comments: Method: Oral Pulse [...] Details :18 Prothrombin Time w/INR Comments: [facility] [address] [place], [place], [phone](905) INR 2.7 (Normal) PROTIME 28.4 s (Abnormal) Range: 11.7-14.9 40-Lmt-219339:14 Prothrombin Time w/INR Comments: [facility] [address] [place], [place], [phone](712) INR 2.2 (Normal) PROTIME 24.6 s (Abnormal) Range: 11.7-14.9 :18 Prothrombin Time w/INR Comments: [facility] [address] [place], [place], [phone](177) INR 2.2 (Normal) PROTIME 24.3 s (Abnormal) Range: 11.7-14.9 :26 Prothrombin Time w/INR Comments: [facility] [address] [place], [place], [phone](539) INR 2.2 (Normal) PROTIME 24.6 s (Abnormal) Range: 11.7-14.9 :13 Prothrombin Time w/INR Comments: [facility] [address] [place], [place], [phone](008) INR 2.3 (Normal) PROTIME 25.7 s (Abnormal) Range: 11.7-14.9 :58 Prothrombin Time w/INR Comments: [facility] [address] [place], [place], [phone](725) INR 2.0 (Normal) PROTIME 22.8 s (Abnormal) Range: 11.7-14.9 :45 CBC W/Diff, Automated Comments: [facility] [address] [place], [address] ; another Absolute Lymph 2.13 [...] 4.4-11.0 :45 Comprehensive Metabolic Profil Comments: [facility] [address] [place], [address] ; Dr Jackson GAP 8 [...] Comments: Please note revised GLUCOSE reference range rpegrzbvn28/02/2018. 64-Ayo-49901:45 Lipid Profile Comments: [facility] [address] [place], [address] VLDL 17 mg/dL (Normal) Range: 5-40 LDL [...] 200-240 mg/dL Borderline >240 mg/dL High Risk 97-Adw-56173:45 Microalb:Creat Ratio,Random UR Comments: [facility] [address] [place], [place], [id number] MALB:CREAT 8.4 {mg/g_CRE} (Normal) MICROALBUMIN,UR 13.5 mg/L (Normal) UR CREAT 160.00 mg/dL (Normal) 67-Zua-93614:45 Prothrombin Time w/INR Comments: [facility] [address] [place], [address] INR 1.9 (Normal) PROTIME 21.5 s (Abnormal) Range: 11.7-14.9 Comments: ADDENDA: cardio :45 Thyroid Stim Hormone (TSH) Comments: [facility] [address] [place], [address] TSH 2.92 {uIU/mL} (Normal) Range: 0.358-3.74 86-Owj-97283:45 Urinalysis, Routine (Dipstick) Comments: How was Urine Obtained? [facility] [address] [place], [address] ; other doc LEUK ESTERASE 100 /ul (Abnormal) OCCULT BLOOD-UR 50 /ul (Abnormal) NITRITE UR Negative (Normal) UROBILI Normal mg/dL (Normal) PROT DIPSTX Negative mg/dL (Normal) pH UR 6.0 (Normal) Range: 5.0 - 8.0 SP.GR. DIPSTX 1.020 (Normal) Range: 1.002-1.030 KETONE UR Negative mg/dL (Normal) BILIRUBIN URINE Negative mg/dL (Normal) GLUCOSE, UR Normal mg/dL (Normal) CLARITY Cloudy (Normal) COLOR Yellow (Normal) 27-Iey-851261:31 Prothrombin Time w/INR Comments: [facility] [address] [place], [place], [id number] INR 2.1 (Normal) PROTIME 23.3 s (Abnormal) Range: 11.7-14.9 4-Rkd-757594:20 Prothrombin Time w/INR Comments: [facility] [address] [place], [id number] INR 2.2 (Normal) Comments: ADDENDA: managed by cardio PROTIME 24.1 s (Abnormal) Range: 11.7-14.9 77-Efq-955928:40 Prothrombin Time w/INR Comments: [facility] [address] [place], [phone] ; managed by cardio INR 2.0 (Normal) PROTIME 22.9 s (Abnormal) Range: 11.7-14.9 71-Dsp-901213:13 Prothrombin Time w/INR Comments: [facility] [address] [place], [place], [phone] INR 1.6 (Normal) PROTIME 19.5 s (Abnormal) Range: 11.7-14.9 25-Iii-907707:28 Prothrombin Time w/INR Comments: [facility] [address] [place], [phone] ; cardio INR 1.8 (Normal) PROTIME 19.8 s (Abnormal) Range: 11.7-14.9 2-Uqo-321786:53 Prothrombin Time w/INR Comments: [place] [address] [place], [phone] INR 2.4 (Normal) PROTIME 24.8 s (Abnormal) Range: 11.7-14.9 8-Ojk-004985:26 Prothrombin Time w/INR Comments: [facility] [address] [place], [address] INR 1.9 (Normal) PROTIME 21.2 s (Abnormal) Range: 11.7-14.9 35-Irs-609943:42 Rapid Flu (11485 x 2) Influenza A Ag POS B (Normal) 12-Col-921708:04 Prothrombin Time w/INR Comments: [facility] [facility] [address] [place], [place], [phone] ; cardio manages INR 1.4 (Normal) PROTIME 16.5 s (Abnormal) Range: 11.7-14.9 93-Syy-018691:28 Prothrombin Time w/INR Comments: [facility] [address] [place], [place], [address] INR 1.2 (Normal) PROTIME 14.3 s (Normal) Range: 11.7-14.9 9-Zyz-597224:11 Prothrombin Time w/INR Comments: [facility] [address] [place], [place], [address] INR 2.0 (Normal) PROTIME 21.6 s (Abnormal) Range: 11.7-14.9 29-Qoy-351570:18 CBC W/Diff, Automated Comments: [facility] [address] [place], [address] Absolute Lymph 2.38 {X10_3/ul} (Normal) [...] 4.4-11.0 :18 Prothrombin Time w/INR Comments: [facility] [address] [place], [place], [address] INR 2.1 (Normal) PROTIME 22.8 s (Abnormal) Range: 11.7-14.9 :52 POTASSIUM SERUM (67643) Comments: STAT; Order Date: 07/23/17Order Info: [id number] - KComments: [facility] [address] [place], [place], [address] K 4.4 mmol/L (Normal) Range: 3.5-5.1 87-Vdt-261162:56 Microscopic Examination Comments: PATIENT NOT FASTINGPERFORMED BY: [employer] [place] [id number] Bacteria Few (Normal) Mucus Threads Present (Normal) Epithelial Cells (non renal) 0-10 {/hpf} (Normal) Range: 0 - 10 RBC 3-10 {/hpf} (Abnormal) Range: 0 - 2 WBC 0-5 {/hpf} (Normal) Range: 0 - 5 :56 VITAMIN B-12 (CYANOCOBALAMIN) Comments: PATIENT NOT FASTINGPERFORMED BY: [employer] Yvdphq8516 MurrayPrecom Information Systemsblin [place] [id number] ([id number]) Vitamin B12 451 pg/mL (Normal) Range: 232-1245 Comments: Please note reference interval change :56 TSH (25695) Comments: PATIENT NOT FASTINGPERFORMED BY: [employer] Npftbw2562 [address] Diaferonbl[place] [id number] TSH 2.910 {uIU/mL} (Normal) Range: 0.450-4.500 :56 URINALYSIS, W/ MICRO (38214) Comments: PATIENT NOT FASTINGPERFORMED BY: [facility] XMInsp[facility] Mullica HillTrblko8840 [facility] [id number] Microscopic Examination See below: (Normal) Comments: Microscopic was indicated and was performed. Nitrite, Urine Negative (Normal) Urobilinogen,Semi-Qn 0.2 mg/dL (Normal) Range: 0.2-1.0 Bilirubin Negative (Normal) Occult Blood 1+ (Abnormal) Ketones Negative (Normal) Glucose Negative (Normal) Protein Negative (Normal) WBC Esterase Trace (Abnormal) Appearance Clear (Normal) Urine-Color Yellow (Normal) pH 7.0 (Normal) Range: 5.0-7.5 Specific [place] 1.017 (Normal) Range: 1.005-1.030 :56 MICROALBUMIN: CREATININE RATIO Comments: PATIENT NOT FASTINGPERFORMED BY: [facility] XMInspira Medical Center Mullica HillLksesy9345 [facility] [id number] ([id number]) AND (09144) Microalb/Creat Ratio 7.4 {mg/g_creat} (Normal) Range: 0.0-30.0 Microalbumin, Urine 5.0 ug/mL (Normal) Creatinine, Urine 68.0 mg/dL (Normal) :56 METABOLIC PANEL, COMPREHENSIVE Comments: PATIENT NOT FASTINGPERFORMED BY: [facility]oscopeAsc[facility] Hospital6370 [facility] [id number] (55270) ALT (SGPT) 18 [iU]/L (Normal) Range: 0-32 [...] Glucose, Serum 87 mg/dL (Normal) Range: 65-99 67-Evz-996459:56 CBC W/AUTO DIFF WBC (35109) Comments: PATIENT NOT FASTINGPERFORMED BY: LabCoInspira [facility] Center Mullica HillZcnfin5166 [facility] [id number] Immature Grans (Abs) 0.0 {x10E3/uL} (Normal) Range: [...] 3.4-10.8 :38 Prothrombin Time w/INR Comments: [facility] [address] [place], [address] INR 2.0 (Normal) PROTIME 22.0 s (Abnormal) Range: 11.7-14.9 67-Xae-382785:21 Prothrombin Time w/INR Comments: [facility] [address] [place], [address] INR 2.5 (Normal) PROTIME 26.0 s (Abnormal) Range: 11.7-14.9 :12 Lipid Profile Comments: Order Date: 12/04/16Order Info: [id number] - *Hepatic Function PanelOrder Info: [id number] - *Lipid Profile CC PCPComments: 12 hours fasting, may have water.[facility] [address] [place], [place], [address](181) VLDL 21 mg/dL (Normal) Range: 5-40 LDL [...] Info: 0788-1 - *Hepatic Function PanelOrder Info: [id number] - *Lipid Profile CC PCPComments: 12 hours fasting, may have water.[facility] [address] [place], [place], [address] D BILI 0.09 mg/dL (Normal) Range: 0.00-0.30 T BILI 0.50 mg/dL (Normal) Range: 0.20-1.00 ALT 21 U/L (Normal) Range: 12-78 ALK P 78 U/L (Normal) Range: 45-117 AST 16 U/L (Normal) Range: 15-37 GLOB 3.1 g/dL (Normal) Range: 2.2-4.2 ALB 3.5 g/dL (Normal) Range: 3.4-5.0 Comments: Please note revised Albumin AND Globulin reference rangeeffective 2017. T PROT 6.6 g/dL (Normal) Range: 6.4-8.2 79-Cfx-960453:39 Prothrombin Time w/INR Comments: [facility] [address] [place], [place], [address] INR 2.4 (Normal) PROTIME 24.9 s (Abnormal) Range: 11.7-14.9 :43 Prothrombin Time w/INR Comments: [facility] [address] [place], [place], [address] INR 2.2 (Normal) PROTIME 23.9 s (Abnormal) Range: 11.7-14.9 :22 CBC W/Diff, Automated Comments: [facility] [address] [place], [place], [address] ; OV 9/5 Absolute Lymph 2.11 {X10_3/ul} [...] 4.4-11.0 09-Apr-20179:22 Comprehensive Metabolic Profil Comments: [facility] [address] [place], [address] GAP 7 (Normal) Range: 5-15 CO2 33.0 [...] :22 Thyroid Stim Hormone (TSH) Comments: [facility] [address] [place], [place], [address] TSH 3.52 {uIU/mL} (Normal) Range: 0.358-3.74 46-Lyu-075085:37 Prothrombin Time w/INR Comments: [facility] [address]co[address] [place], [address] INR 2.1 (Normal) PROTIME 22.4 s (Abnormal) Range: 11.7-14.9 26-Xrw-257293:12 Prothrombin Time w/INR Comments: PT ORDER IS AND T4 IS [place] [address] [place], [place], [phone] INR 2.1 (Normal) PROTIME 23.1 s (Abnormal) Range: 11.7-14.9 95-Wbv-051446:11 T4 Total, Thyroxin Comments: Order Date: 02/19/17Order Info: [id number] - *T4 (Total)Comments: Reason:Order Info: [id number] - *[facility] [address] [place], [place], [address] T4 THYROXIN 7.2 ug/dL (Normal) Range: 4.8-13.9 19-Txa-147096:11 Thyroid Stim Hormone (TSH) Comments: Order Date: 02/19/17Order Info: [id number] - *T4 (Total)Comments: Reason:Order Info: [id number] - *[facility] [address]mblmdr[address] [place], [address] TSH 1.56 {uIU/mL} (Normal) Range: 0.358-3.74 :37 Prothrombin Time w/INR Comments: [facility] [address] [place], [address] INR 1.9 (Normal) PROTIME 21.4 s (Abnormal) Range: 11.7-14.9 2-Qwu-768859:50 Prothrombin Time w/INR Comments: [facility] [address] [place], [address] INR 2.0 (Normal) PROTIME 21.6 s (Abnormal) Range: 11.7-14.9 05-Oxf-498189:37 Prothrombin Time w/INR Comments: [facility] [address]mp[address] [place], [address] INR 2.5 (Normal) PROTIME 25.6 s (Abnormal) Range: 11.7-14.9 73-Ssh-158987:18 Prothrombin Time w/INR Comments: [facility] [address] [place], [address] INR 2.1 (Normal) PROTIME 22.5 s (Abnormal) Range: 11.7-14.9 22-Hlv-095882:17 Lipid Profile Comments: Order Date: 06/02/16Order Info: [id number]- [id number] - *Hepatic Function PanelDR.JACKSON BROWNEICHELLE LIPID LIVEROrder Date: 06/02/16Order Info: [id number] - *Lipid Profile CC PCPComments: 12 hours fasting, may have mary lalaOhio[facility] [address]wagtb6[address] [place], [address] VLDL 31 mg/dL (Normal) Range: 5-40 LDL [...] 200-240 mg/dL Borderline >240 mg/dL High Risk 63-Lyq-689046:17 Liver Profile Comments: Order Date: 06/02/16Order Info: [id number]- [id number] - *Hepatic Function PanelDR.JACKSON PTMICHELLE LIPID LIVEROrder Date: 06/02/16Order Info: [id number] - *Lipid Profile CC PCPComments: 12 hours fasting, may have mary lalaOhio[facility] [address]kmquvt[address] [place], [address] D BILI 0.09 mg/dL (Normal) Range: 0.00-0.30 T BILI 0.50 mg/dL (Normal) Range: 0.20-1.00 ALT 28 U/L (Normal) Range: 12-78 ALK P 93 U/L (Normal) Range: 45-117 AST 21 U/L (Normal) Range: 15-37 GLOB 3.4 g/dL (Normal) Range: 2.3-3.5 ALB 4.0 g/dL (Normal) Range: 3.4-5.0 T PROT 7.4 g/dL (Normal) Range: 6.4-8.2 7-Kwd-479302:32 Prothrombin Time w/INR Comments: [facility] [address] [place], [address] ; jackson manages INR 1.8 (Normal) PROTIME 20.2 s (Abnormal) Range: 11.7-14.9 66-Bes-906475:09 Prothrombin Time w/INR Comments: [facility] [address] [place], [address] ; another doc INR 2.1 (Normal) PROTIME 23.1 s (Abnormal) Range: 11.7-14.9 19-Zex-193771:10 Metabolic Panel, Comprehensive Comments: today; PATIENT NOT FASTINGPERFORMED BY: [facility] Znlblv4084 [place] [id number] ([id number]) ALT (SGPT) 16 [iU]/L (Normal) Range: 0-32 [...] Glucose, Serum 89 mg/dL (Normal) Range: 65-99 00-Hmi-846674:26 Prothrombin Time w/INR Comments: [facility] [address] [place], [place], [address] INR 2.2 (Normal) PROTIME 23.7 s (Abnormal) Range: 11.7-14.9 87-Wvm-051443:52 CBC-Complete Blood Cnt No Diff Comments: [facility] [address] [place], [address] ; sibilia MPV 10.8 fL [...] 4.4-11.0 :58 Prothrombin Time w/INR Comments: [facility] [address] [place], [place], [address] INR 2.0 (Normal) PROTIME 22.4 s (Abnormal) Range: 11.7-14.9 34-Jtv-303587:49 Prothrombin Time w/INR Comments: [facility] [address] [place], [address] INR 2.0 (Normal) PROTIME 22.3 s (Abnormal) Range: 11.7-14.9 28-Sak-036906:54 CBC WITH MANUAL DIFF (67930) Comments: PATIENT NOT FASTINGPERFORMED BY: CB [facility] Mgpjkg5359 [facility] [id number] Immature Grans (Abs) 0.0 {x10E3/uL} (Normal) Range: [...] 3.77-5.28 WBC 6.2 {x10E3/uL} (Normal) Range: 3.4-10.8 56-Aun-786294:54 Metabolic Panel, Comprehensive Comments: PATIENT NOT FASTINGPERFORMED BY: [facility]6370 [facility] [id number] (43192) ALT (SGPT) 18 [iU]/L (Normal) Range: 0-32 [...] Glucose, Serum 86 mg/dL (Normal) Range: 65-99 11-Dyq-397081:54 TSH (36244) Comments: PATIENT NOT FASTINGPERFORMED BY: [facility]CoIn[facility] Mullica HillMbksvf1369 [facility] [id number] TSH 2.890 {uIU/mL} (Normal) Range: 0.450-4.500 53-Lav-960255:23 Prothrombin Time w/INR Comments: [facility] [address] [place], [place], [address] ; managed by cardio INR 2.6 (Normal) PROTIME 27.4 s (Abnormal) Range: 11.7-14.9 60-Fjn-99955:54 Prothrombin Time w/INR Comments: [facility] [address] [place], [place], [address] ; another doc INR 2.0 (Normal) PROTIME 22.3 s (Abnormal) Range: 11.7-14.9 :53 Lipid Profile Comments: Order Date: 05/22/16 Order #: [id number] Marion General Hospital [address]fkxrafk[address] [place], [place], [address] VLDL 21 mg/dL (Normal) Range: 5-40 LDL [...] Profile Comments: Order Date: 05/22/16 Order #: [id number] Marion General Hospital [address]wjzddk[address] [place], [place], [address] D BILI < 0.05 mg/dL (Normal) Range: [...] 6.4-8.2 :09 Prothrombin Time w/INR Comments: [facility] [address] [place], [place], [address] INR 2.5 (Normal) PROTIME 26.3 s (Abnormal) Range: 11.7-14.9 :59 Prothrombin Time w/INR Comments: [facility] [address] [place], [place], [address] ; managed by cardio INR 2.9 (Normal) PROTIME 29.3 s (Abnormal) Range: 11.7-14.9 :05 Prothrombin Time w/INR Comments: [facility] [address] [place], [address] INR 2.0 (Normal) PROTIME 22.3 s (Abnormal) Range: 11.7-14.9 40-Spe-627445:11 Prothrombin Time w/INR Comments: [facility] [address] [place], [place], [address] INR 2.7 (Normal) Comments: ADDENDA: managed by cardio PROTIME 27.7 s (Abnormal) Range: 11.7-14.9 :14 Prothrombin Time w/INR Comments: [facility] [address] [place], [place], [address] ; managed by Jackson INR 2.7 (Normal) PROTIME 28.1 s (Abnormal) Range: 11.7-14.9 :45 Prothrombin Time w/INR Comments: [facility] [address] [place], [place], [address] ; managed by cardio INR 3.1 (Normal) PROTIME 31.3 s (Abnormal) Range: 11.7-14.9 :27 Prothrombin Time w/INR Comments: [facility] [address] [place], [place], [address] ; managed by cardio INR 3.1 (Normal) PROTIME 31.1 s (Abnormal) Range: 11.7-14.9 :22 Prothrombin Time w/INR Comments: [facility] [address] [place], [place], [address] INR 2.6 (Normal) PROTIME 27.4 s (Abnormal) Range: 11.7-14.9 16-Jan-20169:08 Prothrombin Time w/INR Comments: [facility] [address] [place], [place], [address] ; managed with Dr. paz INR 4.1 (Abnormal) Comments: CRITICAL VALUE REPEATED AND VERIFIED. CALL[facility] TO [facility]01/16/16 1251 Elza Hinojosa.RESULTS READ BACK BY SAME . PROTIME 38.2 s (Abnormal) Range: 11.7-14.9 17-Waz-846455:11 Microscopic Examination Comments: PATIENT WAS FASTINGPERFORMED BY: [facility] [id number] Bacteria None seen (Normal) Mucus Threads Present (Normal) Epithelial Cells (non renal) 0-10 {/hpf} (Normal) Range: 0 - 10 RBC 11-30 {/hpf} (Abnormal) Range: 0 - 2 WBC 0-5 {/hpf} (Normal) Range: 0 - 5 11-Ejl-637972:11 MICROALBUMIN: CREATININE RATIO Comments: PATIENT WAS FASTINGPERFORMED BY: [employer] [facility] [id number] (91571) AND (15206) Microalb/Creat Ratio 11.4 {mg/g_creat} (Normal) Range: 0.0-30.0 Microalbumin, Urine 12.1 ug/mL (Normal) Comments: Please note reference interval change Creatinine, Urine 106.3 mg/dL (Normal) Comments: Please note reference interval change 37-Pbd-629428:11 URINALYSIS (75238) Comments: PATIENT WAS FASTINGPERFORMED BY: [employer] [facility] [id number] Microscopic Examination See below: (Normal) Comments: Microscopic was indicated and was performed. Nitrite, Urine Negative (Normal) Urobilinogen,Semi-Qn 0.2 mg/dL (Normal) Range: 0.2-1.0 Bilirubin Negative (Normal) Occult Blood 2+ (Abnormal) Ketones Negative (Normal) Glucose Negative (Normal) Protein Negative (Normal) WBC Esterase Negative (Normal) Appearance Clear (Normal) Urine-Color Yellow (Normal) pH 7.0 (Normal) Range: 5.0-7.5 Specific [place] 1.018 (Normal) Range: 1.005-1.030 40-Kpb-071415:11 Metabolic Panel, Comments: PATIENT WAS FASTINGPERFORMED BY: [facility]6370 [facility] [id number] Information: [id number], [id number] Comprehensive (32873) ALT (SGPT) 14 [iU]/L (Normal) Range: 0-32 [...] Glucose, Serum 91 mg/dL (Normal) Range: 65-99 36-Mwb-706169:11 TSH (02715) Comments: PATIENT WAS FASTINGPERFORMED BY: [facility] Vsfeih4656 [facility] [id number] TSH 2.260 {uIU/mL} (Normal) Range: 0.450-4.500 :17 Prothrombin Time w/INR Comments: [facility] [address] [place], [place], [phone] INR 2.8 (Normal) PROTIME 28.4 s (Abnormal) Range: 11.7-14.9 :40 Lipid Profile Comments: [facility] Z[address] [place], [place], [address] VLDL 22 mg/dL (Normal) Range: 5-40 LDL [...] High Risk :40 Liver Profile Comments: [facility] [address] [place], [place], [address] D BILI 0.10 mg/dL (Normal) Range: 0.00-0.30 T BILI 0.60 mg/dL (Normal) Range: 0.20-1.00 ALT 26 U/L (Normal) Range: 12-78 ALK P 86 U/L (Normal) Range: 50-136 AST 20 U/L (Normal) Range: 15-37 GLOB 3.4 g/dL (Normal) Range: 2.3-3.5 ALB 3.9 g/dL (Normal) Range: 3.4-5.0 T PROT 7.3 g/dL (Normal) Range: 6.4-8.2 :26 Prothrombin Time w/INR Comments: [facility] [address] [place], [place], [address] INR 2.6 (Normal) Comments: ADDENDA: handled by cardio PROTIME 27.3 s (Abnormal) Range: 11.7-14.9 :40 Prothrombin Time w/INR Comments: [facility] [address] [place], [address] INR 2.4 (Normal) PROTIME 26.4 s (Abnormal) Range: 11.7-14.9 5-Ruv-003222:03 Prothrombin Time w/INR Comments: [facility] [address]ug[address] [place], [address] ; per pop up in EMR cardio manages INR INR 2.2 (Normal) PROTIME 24.5 s (Abnormal) Range: 11.7-14.9 08-Qlb-630674:51 Prothrombin Time w/INR Comments: [place] [address] [place], [address] INR 1.6 (Normal) PROTIME 19.0 s (Abnormal) Range: 11.7-14.9 Comments: ADDENDA: managed by cardio :33 Prothrombin Time w/INR Comments: [facility] [address]xvxrbnb[address] [place], [address] ; handled by cardio INR 2.1 (Normal) PROTIME 24.0 s (Abnormal) Range: 11.7-14.9 21-Vxa-879110:02 Prothrombin Time w/INR Comments: [place] [address] [place], [address] INR 2.2 (Normal) PROTIME 24.1 s (Abnormal) Range: 11.7-14.9 79-Asl-163998:37 Prothrombin Time w/INR Comments: [facility] [address] [place], [address] INR 2.5 (Normal) PROTIME 26.7 s (Abnormal) Range: 11.7-14.9 :44 Prothrombin Time w/INR Comments: [place] [address] [place], [place], [address] INR 2.2 (Normal) PROTIME 24.6 s (Abnormal) Range: 11.7-14.9 29-Pyi-231435:15 Prothrombin Time w/INR Comments: [facility] [address] [place], [place], [address] INR 1.6 (Normal) PROTIME 19.4 s (Abnormal) Range: 11.7-14.9 :36 Prothrombin Time w/INR Comments: [facility] [address] [place], [place], [address] INR 1.2 (Normal) PROTIME 15.3 s (Abnormal) Range: 11.7-14.9 :02 Prothrombin Time w/INR Comments: [address] [place], [place], [address] INR 2.7 (Normal) PROTIME 29.0 s (Abnormal) Range: 11.7-14.9 :47 Lipid Profile Comments: [facility] [address] [place], [place], [address] VLDL 20 mg/dL (Normal) Range: 5-40 LDL [...] High Risk :47 Liver Profile Comments: [facility] [address]sw[address]pe[address] [place], [place], [address] D BILI 0.09 mg/dL (Normal) Range: 0.00-0.30 T BILI 0.40 mg/dL (Normal) Range: 0.20-1.00 ALT 26 U/L (Normal) Range: 12-78 ALK P 86 U/L (Normal) Range: 50-136 AST 24 U/L (Normal) Range: 15-37 GLOB 3.3 g/dL (Normal) Range: 2.3-3.5 ALB 4.0 g/dL (Normal) Range: 3.4-5.0 T PROT 7.3 g/dL (Normal) Range: 6.4-8.2 2-Tsp-990701:11 CBC, Platelets & Auto Diff Comments: PATIENT NOT FASTINGPERFORMED BY: [facility] Oteilb6361 [facility] [id number] Information: [id number] (68201) Immature Grans (Abs) 0.0 {x10E3/uL} (Normal) Range: [...] 3.77-5.28 WBC 6.2 {x10E3/uL} (Normal) Range: 3.4-10.8 7-Qzu-755991:11 CALCIFEDIOL (94945) Comments: PATIENT NOT FASTINGPERFORMED BY: [facility]6370 [facility] [id number] Vitamin D, 25-Hydroxy 38.9 ng/mL (Normal) Range: 30.0-100.0 Comments: Vitamin D deficiency has been defined by the [place] [facility] Cent[facility] and an Endocrine Society practice guideline as alevel of serum 25-OH vitamin D less than 20 ng/mL (1,2).The Endocrine Society went on to further define vitamin Dinsufficiency as a level between 21 and 29 ng/mL (2).1. IOM ([place] of Medicine). 2010. Dietary reference intakes for calcium and D. [place]: The National Academies Press.2. Roberto MF, Brody OCHOA, Maribell CADENA, et al. Evaluation, treatment, and prevention of vitamin D deficiency: an Endocrine Society clinical practice guideline. JCEM. 2010; 96(7):1911-30. 4-Pwd-572670:11 VITAMIN B12 AND FOLATES Comments: PATIENT NOT FASTINGPERFORMED BY: [facility]6370 [facility] [id number] (41699) Folate (Folic Acid), Serum 10.4 ng/mL (Normal) Comments: A serum folate concentration of less than 3.1 ng/mL isconsidered to represent clinical deficiency. Vitamin B12 1651 pg/mL (Abnormal) Range: 211-946 6-Zug-847715:11 Metabolic Panel, Comprehensive Comments: PATIENT NOT FASTINGPERFORMED BY: [facility]6370 [facility] [id number] (67914) ALT (SGPT) 15 [iU]/L (Normal) Range: 0-32 [...] 65-99 09-May-20159:53 Prothrombin Time w/INR Comments: [facility] [address]xtvsop[address]53 [place], [address] INR 1.9 (Normal) PROTIME 22.0 s (Abnormal) Range: 11.7-14.9 13-Ftr-883559:40 Prothrombin Time w/INR Comments: Test performed at:[facility] Btyfebzsmk3327 [facility] [place] [address] INR 1.3 (Normal) PROTIME 16.3 s (Abnormal) Range: 11.7-14.9 51-Msp-468728:03 Prothrombin Time w/INR Comments: Test performed at:[facility] Zsajhfxilv0382 [facility] [place] [address] INR 1.7 (Normal) PROTIME 20.4 s (Abnormal) Range: 11.7-14.9 2-Ebu-835293:26 Prothrombin Time w/INR Comments: Test performed at:[facility] Wdvudorppx4787 [facility] [place] [address] INR 1.2 (Normal) Comments: ADDENDA: managed by dr paz PROTIME 15.8 s (Abnormal) Range: 11.7-14.9 98-Ttp-970279:28 Prothrombin Time w/INR Comments: Test performed at:[facility] [address] [place] [address] INR 1.2 (Normal) PROTIME 15.8 s (Abnormal) Range: 11.7-14.9 :54 Prothrombin Time w/INR Comments: Test performed at:[facility] [address]fr[address] [place] [address] INR 2.5 (Normal) PROTIME 27.3 s (Abnormal) Range: 11.7-14.9 9-Bmf-886513:16 Prothrombin Time w/INR Comments: Test performed at:[facility] [address] [place] [address] INR 2.0 (Normal) PROTIME 23.2 s (Abnormal) Range: 11.7-14.9 24-Wwx-876247:29 Prothrombin Time w/INR Comments: Test performed at:[facility] [address] [place] [address] INR 2.8 (Normal) PROTIME 29.3 s (Abnormal) Range: 11.7-14.9 06-Nuv-551071:06 Prothrombin Time w/INR Comments: Test performed at:[facility] [address] [place] [address] ; Dr Bella manages INR 2.1 (Normal) PROTIME 24.0 s (Abnormal) Range: 11.7-14.9 :45 Prothrombin Time w/INR Comments: Test performed at:[facility] [address] [place] [address] ; ordered by another INR 1.3 (Normal) PROTIME 16.5 s (Abnormal) Range: 11.7-14.9 :00 Prothrombin Time w/INR Comments: Test performed at:[facility] [address] [place], [place] [address] INR 0.9 (Normal) PROTIME 12.7 s (Normal) Range: 11.7-14.9 :05 Vitamin B12 and Folate Comments: PATIENT NOT FASTINGPERFORMED BY: [facility] [id number] Information: [id number] Folate (Folic Acid), 7.8 ng/mL (Normal) Comments: A serum folate concentration of less than 3.1 ng/mL isconsidered to represent clinical deficiency. Serum Vitamin B12 1883 pg/mL Range: 211-946 (Abnormal) : Vitamin D, 42.8 ng/mL (Normal) Comments: PATIENT NOT FASTINGPERFORMED BY: [facility] [facility] [id number] 05 25-Hydroxy Range: 30.0-100.0 Comments: Vitamin D deficiency has been defined by the [place] [employer] and an Endocrine Society practice guideline as alevel of serum 25-OH vitamin D less than 20 ng/mL (1,2).The Endocrine Society went on to further define vitamin Dinsufficiency as a level between 21 and 29 ng/mL (2).1. IOM ([place] of [place]). 2010. Dietary reference intakes for calcium and D. [place]: The National Academies Press.2. Roberto MF, Brody NC, Maribell CADENA, et al. Evaluation, treatment, and prevention of vitamin D deficiency: an Endocrine Society clinical practice guideline. JCEM. 2010; 96(7):1911-30. 01-Jie-863974:04 CBC W/Diff, Automated Comments: Test performed at:[facility] [address] [place], [place] [id number] Absolute Lymph 2.41 {X10_3/ul} (Normal) Range: 0.83-4.51 [...] 4.2-5.4 WBC 6.5 K/mm3 (Normal) Range: 4.4-11.0 5-Ttb-026633:26 Basic Metabolic Profile (BMP) Comments: Test performed at:[facility] [address] [place] [address] [id number] GAP 4 (Abnormal) Range: 5-15 CO2 33.0 mmol/L (Abnormal) Range: 21.0-32.0 CL 103 mmol/L (Normal) Range: 98-107 K 4.8 mmol/L (Normal) Range: 3.5-5.1 NA 140 mmol/L (Normal) Range: 136-145 CA 8.8 mg/dL (Normal) Range: 8.5-10.1 BUN/CRE 25.8 {RATIO} (Abnormal) Range: 10-20 CREAT,SERUM 1.2 mg/dL (Abnormal) Range: 0.6-1.0 BUN 31 mg/dL (Abnormal) Range: 7-18 GLU 108 mg/dL (Normal) Range: 70-110 57-Eqs-359566:45 Basic Metabolic Profile (BMP) Comments: Test performed at:[facility] [address] [place] [address] GAP 4 (Abnormal) Range: 5-15 CO2 28.0 mmol/L (Normal) Range: 21.0-32.0 CL 106 mmol/L (Normal) Range: 98-107 K 4.3 mmol/L (Normal) Range: 3.5-5.1 NA 138 mmol/L (Normal) Range: 136-145 CA 8.8 mg/dL (Normal) Range: 8.5-10.1 BUN/CRE 26.0 {RATIO} (Abnormal) Range: 10-20 CREAT,SERUM 1.0 mg/dL (Normal) Range: 0.6-1.0 BUN 26 mg/dL (Abnormal) Range: 7-18 GLU 93 mg/dL (Normal) Range: 70-110 44-Iga-158826:45 CBC W/Diff, Automated Comments: Test performed at:[facility] [address] [place] [address] Absolute Lymph 2.60 {X10_3/ul} (Normal) [...] 4.2-5.4 WBC 6.5 K/mm3 (Normal) Range: 4.4-11.0 04-Nyw-465140:07 Lipid Profile Comments: Specimen slightly hemolyzed. Results may be affected.Test performed at:[facility] [address] [place] [address] VLDL 19 mg/dL (Normal) Range: 5-40 LDL [...] 200-240 mg/dL Borderline >240 mg/dL High Risk 40-Kpd-052502:07 Liver Profile Comments: Specimen slightly hemolyzed. Results may be affected.Test performed at:[facility] [address] [facility] [place], [place] [address] D BILI < 0.05 mg/dL (Normal) Range: [...] CHOL 226 mg/dL (Abnormal) Comments: <200 mg/dL Rfcqwnqci331-942 mg/dL Borderline>240 mg/dL High Risk :47 LIVER [...] :47 TSH 3.05 {uIU/mL} (Normal) Range: 0.358-3.74 41-Cjb-644908:00 LORNA CULTURE-OTHER (54896) Comments: PATIENT NOT FASTINGPERFORMED BY: [facility]6370 [facility] [id number] Information: SRC:THRT [id number] Result 1 RRF (Normal) Comments: Routine respiratory jesus Upper Respiratory Culture Final report (Normal) 80-Zlo-07518:21 Rapid Strep Test, Office (59051) Rapid Strep Test, Office Negative (Normal) 93-Abp-90184:00 BILAT SCRN DIGITAL & CAD Radiology Report [...] Jones M.D.January 04, 2013 at 10:41:52 AM [phone] Signed GP/GP If you are the referring physician and would like to consult with theradiologist who provided this interpretation, please contact Ne Huang at [phone]. If this radiologist is unavailable, youwill be directed to another radiologist to assist. If you are a patient with a question regarding this report, pleasecontactyour referring physician directly. Professional Interpretation Provided By: [employer], Phone , These documents contain legally protected [...] Function Panel Comments: PATIENT WAS FASTINGPERFORMED BY: [facility]6370 [facility] [id number] Information: [id number] (7) ALT (SGPT) 23 [iU]/L (Normal) Range: 0-32 AST (SGOT) 21 [iU]/L (Normal) Range: 0-40 Alkaline Phosphatase, S 74 [iU]/L (Normal) Range: 25-165 Bilirubin, Direct 0.10 mg/dL Range: 0.00-0.40 (Normal) Albumin, Serum 4.3 g/dL (Normal) Range: 3.5-4.8 Bilirubin, Total 0.3 mg/dL (Normal) Range: 0.0-1.2 Protein, Total, Serum 6.7 g/dL (Normal) Range: 6.0-8.5 Written Authorization WAR (Normal) Comments: PATIENT WAS FASTINGPERFORMED BY: [facility]6[address] [facility] [id number] :19 Comments: Written Authorization Received.Authorization received from DR BRO [phone] by Rachelle Porter :19 Metabolic Panel, Comprehensive Comments: PATIENT WAS FASTINGPERFORMED BY: [facility]6370 [facility] [id number] (11726) ALT (SGPT) 22 [iU]/L (Normal) Range: 0-32 [...] Glucose, Serum 89 mg/dL (Normal) Range: 65-99 3-Oit-766518:19 CBC with manual diff Comments: PATIENT WAS FASTINGPERFORMED BY: [facility] Mullica HillBsbelb2493 [facility] [id number] Information: [id number] (57972) Immature Grans (Abs) 0.0 {x10E3/uL} (Normal) Range: [...] 3.77-5.28 WBC 4.6 {x10E3/uL} (Normal) Range: 4.0-10.5 8-Hkm-440736:19 Lipid Panel (79742) Comments: PATIENT WAS FASTINGPERFORMED BY: [employer] [facility] [id number] LDL/HDL Ratio 1.3 {ratio_units} (Normal) Range: 0.0-3.2 Cholesterol, Total 153 mg/dL (Normal) Range: 100-199 HDL Cholesterol 60 mg/dL (Normal) Comments: According to ATP-III Guidelines, HDL-C >59 mg/dL is considered anegative risk factor for CHD. LDL Cholesterol Calc 80 mg/dL (Normal) Range: 0-99 Triglycerides 65 mg/dL (Normal) Range: 0-149 VLDL Cholesterol Hector 13 mg/dL (Normal) Range: 5-40 2-Mfn-019693:19 TSH (46818) Comments: PATIENT WAS FASTINGPERFORMED BY: [employer] [facility] [id number] TSH 2.650 {uIU/mL} (Normal) Range: 0.450-4.500 91-Rxw-938716:14 Urinalysis, Office (45648) UA - BILIRUBIN Negative (Normal) UA - BLOOD Hemolyzed Small (Normal) UA - GLUCOSE Negative (Normal) UA - KETONES Negative mg/dL (Normal) UA - LEUKOCYTE ESTERASE Negative (Normal) UA - NITRITE Negative (Normal) UA - PH 7.0 (Normal) UA - PROTEIN Negative mg/dL (Normal) UA - SPECIFIC GRAVITY 1.015 (Normal) URINE UROBILINGN REYNA TIMED Normal mg/dL (Normal) 31-Sev-075454:10 TSH (THYROID STIMULATING Comments: PATIENT WAS FASTINGPERFORMED BY: [employer] [facility] [id number] HORMONE) (05129) TSH 2.500 {uIU/mL} (Normal) Range: 0.450-4.500 21-Jqs-539886:10 CALCIFEDIOL (50571) Comments: PATIENT WAS FASTINGPERFORMED BY: [facility]6370 [facility] [id number] Vitamin D, 25-Hydroxy 48.1 ng/mL (Normal) Range: 30.0-100.0 Comments: Vitamin D deficiency has been defined by the [place] and an Endocrine Society practice guideline as alevel of serum 25-OH vitamin D less than 20 ng/mL (1,2).The Endocrine Society went on to further define vitamin Dinsufficiency as a level between 21 and 29 ng/mL (2).1. IOM ([place] of [place]). 2010. Dietary reference intakes for calcium and D. [place]: The National Academies Press.2. Roberto MF, Brody NC, Maribell CADENA, et al. Evaluation, treatment, and prevention of vitamin D deficiency: an Endocrine Society clinical practice guideline. JCEM. 2010; 96(7):1911-30. 88-Sam-231630:10 Lipid Panel (18553) Comments: PATIENT WAS FASTINGPERFORMED BY: [facility]6370 [facility] [id number] LDL/HDL Ratio 2.3 {ratio_units} (Normal) Range: 0.0-3.2 LDL Cholesterol Calc 117 mg/dL (Abnormal) Range: 0-99 VLDL Cholesterol Hector 16 mg/dL (Normal) Range: 5-40 HDL Cholesterol 52 mg/dL (Normal) Comments: According to ATP-III Guidelines, HDL-C >59 mg/dL is considered anegative risk factor for CHD. Triglycerides 78 mg/dL (Normal) Range: 0-149 Cholesterol, Total 185 mg/dL (Normal) Range: 100-199 75-Xbd-063755:10 HEPATIC FUNCTION PANEL Comments: PATIENT WAS FASTINGPERFORMED BY: [facility]6370 [facility] [id number] Information: [id number] (31501) ALT (SGPT) 21 [iU]/L (Normal) Range: 0-40 AST (SGOT) 20 [iU]/L (Normal) Range: 0-40 Alkaline Phosphatase, S 75 [iU]/L (Normal) Range: 25-165 Bilirubin, Direct 0.09 mg/dL (Normal) Range: 0.00-0.40 Albumin, Serum 4.0 g/dL (Normal) Range: 3.5-4.8 Bilirubin, Total 0.3 mg/dL (Normal) Range: 0.0-1.2 Protein, Total, Serum 6.5 g/dL (Normal) Range: 6.0-8.5 :41 TSH (22313) Comments: PATIENT NOT FASTINGPERFORMED BY: [facility] XMRehoboth McKinley Christian Health Care ServicesQyefhv[address] [place] [address] [id number] Information: [id number] TSH 3.750 {uIU/mL} (Normal) Range: 0.450-4.500 :39 Prothrombin Time (PT) Comments: PERFORMED BY: [facility] XM[address] [id number] Prothrombin Time 39.0 {sec} (Abnormal) Range: 8.7-11.5 INR 3.6 (Abnormal) Range: 0.8-1.2 Comments: Client Requested Flag Reference interval is for non- anticoagulated patients. . Suggested INR therapeutic ra nge for Vitamin K antagonist therapy: Standard Dose (moderate intensity therapeutic range): 2.0 - 3.0 Higher intensity therapeutic range 2.5 - 3.5 :26 PT (PROTHROMBIN TIME) Comments: PATIENT NOT FASTINGPERFORMED BY: [place]oscopeBr[place] 7295470 [facility] [id number] Information: [id number] CC:[id number] (13237) Prothrombin Time 54.3 {sec} (Abnormal) Range: 8.7-11.5 [...] (Activated Partial Comments: PATIENT NOT FASTINGPERFORMED BY: [place] [address]157270 [facility] [id number] Thromboplastin Time) (30591) aPTT 39 {sec} (Abnormal) Range: 24-33 Comments: This test has not been validated for monitoring unfractionated heparintherapy. aPTT-based therapeutic ranges for unfractionated heparintherapy have not been established. For general guidelines onHeparin monitoring, refer to the [facility] Directory of Services. :51 PT (Prothrobim Time) Comments: PATIENT NOT FASTINGPERFORMED BY: [place] [address]157270 [facility] [id number] Information: [id number] CC:[id number] (60152) Prothrombin Time 26.1 {sec} (Abnormal) Range: 8.7-11.5 INR 2.4 (Abnormal) Range: 0.8-1.2 Comments: Reference interval is for non-anticoagulated patients. . Suggested INR therapeutic range for Vitamin K anta gonist therapy: Standard Dose (moderate intensity therapeutic range): 2.0 - 3.0 Higher intensity therapeutic range 2.5 - 3.5 :43 HEPATIC FUNCTION PANEL Comments: PATIENT NOT FASTINGPERFORMED BY: [facility]6370 [facility] [id number] Information: [id number] (91549) ALT (SGPT) 25 [iU]/L (Normal) Range: 0-40 AST (SGOT) 19 [iU]/L (Normal) Range: 0-40 Alkaline Phosphatase, S 73 [iU]/L (Normal) Range: 25-165 Albumin, Serum 4.4 g/dL (Normal) Range: 3.5-4.8 Bilirubin, Direct 0.09 mg/dL (Normal) Range: 0.00-0.40 Bilirubin, Total 0.3 mg/dL (Normal) Range: 0.0-1.2 Protein, Total, Serum 6.4 g/dL (Normal) Range: 6.0-8.5 :18 Lipid Panel (54578) Comments: PATIENT NOT FASTINGPERFORMED BY: [facility]Asc[facility]6370 [facility] [id number] LDL/HDL Ratio 1.3 {ratio_units} (Normal) Range: 0.0-3.2 [...] FUNCTION PANEL Comments: PATIENT NOT FASTINGPERFORMED BY: [facility]Asc[facility] Hospital6370 [facility] [id number] Information: [id number] (77988) ALT (SGPT) 60 [iU]/L (Abnormal) Range: 0-40 Alkaline Phosphatase, S 66 [iU]/L (Normal) Range: 25-165 AST (SGOT) 43 [iU]/L (Abnormal) Range: 0-40 Albumin, Serum 4.3 g/dL (Normal) Range: 3.5-4.8 Bilirubin, Direct 0.10 mg/dL (Normal) Range: 0.00-0.40 Bilirubin, Total 0.3 mg/dL (Normal) Range: 0.0-1.2 Protein, Total, Serum 6.7 g/dL (Normal) Range: 6.0-8.5 :18 CALCIFEDIOL (02882) Comments: PATIENT NOT FASTINGPERFORMED BY: [facility]oscopeAsc[facility] Hospital6370 [facility] [id number] Vitamin D, 25-Hydroxy 57.3 ng/mL (Normal) Range: 32.0-100.0 Comments: Recent studies consider the lower limit of 32.0 ng/mL to be athreshold for optimal health.Baljit HOWELL. J Nutr. 2004;135(2):317-22. 6-Gtb-545461:49 Urinalysis, Office (71061) UA - BILIRUBIN Negative (Normal) UA - BLOOD Hemolyzed Moderate (Normal) UA - GLUCOSE Negative (Normal) UA - KETONES Negative mg/dL (Normal) UA - LEUKOCYTE ESTERASE Negative (Normal) UA - NITRITE Negative (Normal) UA - PH 7.5 (Normal) UA - PROTEIN Negative mg/dL (Normal) UA - SPECIFIC GRAVITY 1.015 (Normal) URINE UROBILINGN REYNA TIMED Normal mg/dL (Normal) 41-Wbh-509669:38 Urinalysis, Office (63548) UA - BILIRUBIN Negative (Normal) UA - BLOOD Hemolyzed Small (Normal) UA - GLUCOSE Negative (Normal) UA - KETONES Negative mg/dL (Normal) UA - LEUKOCYTE ESTERASE Negative (Normal) UA - NITRITE Negative (Normal) UA - PH 7.5 (Normal) UA - PROTEIN Negative mg/dL (Normal) UA - SPECIFIC GRAVITY 1.015 (Normal) URINE UROBILINGN REYNA TIMED 2 mg/dL (Normal) 95-Xir-88610:47 Metabolic Panel, Basic Comments: PATIENT NOT FASTINGPERFORMED BY: [facility]In[facility] Mullica HillAikdln2688 [facility] [id number] Information: [id number] (08757) Calcium, Serum 9.6 mg/dL (Normal) Range: 8.6-10.2 [...] CULTURE-REYNA COL Comments: PATIENT NOT FASTINGPERFORMED BY: [employer]70 [facility] [id number] Information: SRC:UR [id number] COUNT (20838) Result 1 NG36 (Normal) Comments: No growth in 36 - 48 hours. Urine Culture,Comprehensive Final report (Normal) :29 Urinalysis, Office (01303) UA - BILIRUBIN Negative (Normal) UA - BLOOD Non Hemolyzed Moderate (Normal) UA - GLUCOSE Negative (Normal) UA - KETONES Negative mg/dL (Normal) UA - LEUKOCYTE ESTERASE Trace (Normal) UA - NITRITE Negative (Normal) UA - PH 6.0 (Normal) UA - PROTEIN Negative mg/dL (Normal) UA - SPECIFIC GRAVITY 1.020 (Normal) URINE UROBILINGN REYNA TIMED Normal mg/dL (Normal) 34-Phn-046790:44 Microscopic Examination Comments: PATIENT WAS FASTINGPERFORMED BY: [employer]6370 [facility] [id number] Bacteria Few (Normal) Mucus Threads Present (Normal) Epithelial Cells (non renal) 0-10 {/hpf} (Normal) Range: 0 - 10 RBC 0-3 {/hpf} (Normal) Range: 0 - 3 WBC 0-5 {/hpf} (Normal) Range: 0 - 5 54-Cfh-983399:44 CALCIFIDIOL (15946) VIT D 25 Comments: PATIENT WAS FASTINGPERFORMED BY: [employer] Gxrhjr4257 [facility] [id number] Vitamin D, 25-Hydroxy 28.6 ng/mL (Abnormal) Range: 32.0-100.0 Comments: Recent studies consider the lower limit of 32.0 ng/mL to be athreshold for optimal health.Baljit HOWELL. J Nutr. 2004;135(2):317-22. 62-Hsn-742448:44 Folate (80420) Comments: PATIENT WAS FASTINGPERFORMED BY: [facility]6[address] [facility] [place] [id number] Folate (Folic Acid), Serum 12.2 ng/mL (Normal) Comments: Indeterminate: 2.2 - 3.0 Deficient: <2.2 68-Hec-044214:44 VITAMIN B-12 (CYANOCOBALAMIN) Comments: PATIENT WAS FASTINGPERFORMED BY: [facility]6370 [facility] [id number] (91618) Vitamin B12 351 pg/mL (Normal) Range: 211-946 82-Qce-541478:44 SED RATE ERYTHROCYTE (62984) Comments: PATIENT WAS FASTINGPERFORMED BY: [facility]6370 [facility] [id number] Sedimentation Rate-Westergren 2 mm/h (Normal) Range: 0-30 35-Ekx-943547:44 RHEUMATOID FACTOR-QUANT (76505) Comments: PATIENT WAS FASTINGPERFORMED BY: [facility]6[address] [facility] [place] [id number] RA Latex Turbid. 10.5 {IU/mL} (Normal) Range: 0.0-13.9 33-Xnn-324714:44 C-REACTIVE PROTEIN (82112) Comments: PATIENT WAS FASTINGPERFORMED BY: [facility]6370 [facility] [id number] C-Reactive Protein, Quant 0.9 mg/L (Normal) Range: 0.0-4.9 51-Kcy-051012:44 JOANNA (ANTINUCLEAR ANTIBODY) Comments: PATIENT WAS FASTINGPERFORMED BY: [facility]6[address] [facility] [id number] (36410) JOANNA Direct Negative (Normal) 75-Dvt-492545:44 LIPID PANEL (06888) Comments: PATIENT WAS FASTINGPERFORMED BY: [facility]6[address] [facility] [place] [id number] LDL Cholesterol Calc 140 mg/dL (Abnormal) Range: 0-99 LDL/HDL Ratio 1.8 {ratio_units} (Normal) Range: 0.0-3.2 HDL Cholesterol 77 mg/dL (Normal) Comments: According to ATP-III Guidelines, HDL-C >59 mg/dL is considered anegative risk factor for CHD. VLDL Cholesterol Hector 19 mg/dL (Normal) Range: 5-40 Triglycerides 97 mg/dL (Normal) Range: 0-149 Cholesterol, Total 236 mg/dL (Abnormal) Range: 100-199 :44 TSH (78588) Comments: PATIENT WAS FASTINGPERFORMED BY: [facility] XMRehoboth McKinley Christian [facility] Care ServicesLpvdoa4663 [facility] [id number] TSH 1.670 {uIU/mL} (Normal) Range: 0.450-4.500 :44 URINALYSIS, W/ MICRO (71481) Comments: PATIENT WAS FASTINGPERFORMED BY: [facility]oscopeAsc[facility] Hospital6370 [facility] [id number] Microscopic Examination See below: (Normal) Bilirubin Negative (Normal) Ketones Negative (Normal) Nitrite, Urine Negative (Normal) Occult Blood 1+ (Abnormal) Urobilinogen,Semi-Qn 0.2 mg/dL (Normal) Range: 0.0-1.9 Glucose Negative (Normal) Protein Negative (Normal) Appearance Clear (Normal) pH 7.0 (Normal) Range: 5.0-7.5 Urine-Color Yellow (Normal) WBC Esterase Negative (Normal) Specific [place] 1.016 (Normal) Range: 1.005-1.030 :44 MICROALBUMIN: CREATININE RATIO Comments: PATIENT WAS FASTINGPERFORMED BY: [facility] XMInspira Medical Center Mullica HillHlpfjp2983 [facility] [id number] (45806) AND (79798) Microalb/Creat Ratio 2.8 {mg/g_creat} (Normal) Range: 0.0-30.0 Creatinine, Urine 61.0 mg/dL (Normal) Range: 15.0-278.0 Microalbumin, Urine 1.7 ug/mL (Normal) Range: 0.0-17.0 :44 METABOLIC PANEL, COMPREHENSIVE Comments: PATIENT WAS FASTINGPERFORMED BY: [facility]oscopeAsc[facility] Hospital6370 [facility] [id number] (74296) ALT (SGPT) 16 [iU]/L (Normal) Range: 0-40 [...] Glucose, Serum 92 mg/dL (Normal) Range: 65-99 10-Asd-555016:44 CBC WITH MANUAL DIFF Comments: PATIENT WAS FASTINGPERFORMED BY: [facility]CoIn[facility] Mullica HillOvrlod6887 [facility] [id number] Information: [id number] (89711) Immature Grans (Abs) 0.0 {x10E3/uL} (Normal) Range: [...] 3.80-5.10 WBC 6.1 {x10E3/uL} (Normal) Range: 4.0-10.5 02-Gdi-805148:11 BILAT [facility] DIGITAL & CAD Radiology Report See Note (Normal) Comments: Exam Number: [id number] MAMMOGRAPHY - BILATERAL SCREENING INDICATION:Routine annual screening [...] of attaching a ResultCode to this exam.ADDENDUM: [id number] HPBI/MDS Reported By: ELEANOR ERNANDEZ M.D. 4-Wkr-924965:01 TSH (81260) Comments: PATIENT NOT FASTINGPERFORMED BY: [facility] Ttijlv8384 [facility] [id number] Information: [id number] TSH 0.474 {uIU/mL} (Normal) Range: 0.450-4.500 16-Apr-20108:21 Thin prep Pap (55375) Comments: of cuff, has had hysterectomy; Source.............VaginalLMP / Prev Treat...HystNo. of containers..01 CYTYC Thin Prep VialPATIENT NOT FASTINGPERFORMED BY: [facility] [address] [id number] Information: [id number] Note: PAPSMR (Normal) Comments: The Pap smear [...] hysterectomy.V72.31 ; Routine gynecological exami Davion Mosley Cotton Stomper (ASCP) 94-Rpl-420745:57 ABDOMEN/PELVIS W/WO CONTRAST Radiology Report See Note (Normal) Comments: Exam Number: [id number] CLINICAL:Hydronephrosis CT ABDOMEN AND PELVIS WITHOUT / [...] theright-sided hydronephrosis. Reported By: SAVANA AVELAR M.D. 4-Oep-341378:44 Urinalysis, Office (22687) UA - LEUKOCYTE ESTERASE Negative (Normal) UA - NITRITE Negative (Normal) URINE UROBILINGN REYNA TIMED Normal mg/dL (Normal) UA - PROTEIN Negative mg/dL (Normal) UA - PH 6.5 (Normal) UA - BLOOD Hemolyzed Trace (Normal) UA - SPECIFIC GRAVITY 1.010 (Normal) UA - KETONES Negative mg/dL (Normal) UA - BILIRUBIN Negative (Normal) UA - GLUCOSE Negative (Normal) 24-Tee-387132:45 KIDNEY (HP) Radiology Report See Note (Normal) Comments: Exam Number: [id number] CLINICAL:The patient is a 69-year-old female who [...] no hydronephrosis Reported By: ELEANOR ERNANDEZ M.D. 10-Ojf-538015:14 BMP BUN/CRE 17.8 {RATIO} (Normal) Range: 10-20 [...] (Normal) GLU 90 mg/dL (Normal) Range: 70-110 57-Nia-701947:52 Iron and TIBC Comments: PATIENT NOT FASTINGPERFORMED BY: [employer] Eiignn8352 [facility] [id number] Iron Saturation 21 % (Normal) Range: 15-55 Iron, Serum 55 ug/dL (Normal) Range: 35-155 UIBC 202 ug/dL (Normal) Range: 150-375 Iron Bind.Cap.(TIBC) 257 ug/dL (Normal) Range: 250-450 99-Yaf-935295:52 Renal function Panel (54173) Comments: PATIENT NOT FASTINGPERFORMED BY: [employer] X[employer] Idcali0674 [facility] [id number] Albumin, Serum 3.7 g/dL (Normal) Range: 3.5-4.8 [...] Glucose, Serum 91 mg/dL (Normal) Range: 65-99 14-Mtk-008532:52 Ferritin (99920) Comments: PATIENT NOT FASTINGPERFORMED BY: [facility] Lzxmtt8903 [facility] [id number] Ferritin, Serum 338 ng/mL (Abnormal) Range: 13-150 :52 CBC with manual diff Comments: PATIENT NOT FASTINGPERFORMED BY: [place] 7157270 [facility] [id number] Information: [id number] (73299) Baso (Absolute) 0.0 {x10E3/uL} (Normal) Range: 0.0-0.2 [...] 3.80-5.10 WBC 7.9 {x10E3/uL} (Normal) Range: 4.0-10.5 51-Srj-739377:20 TSH (32388) Comments: PATIENT NOT FASTINGPERFORMED BY: [facility]6370 [facility] [id number] TSH 0.830 {uIU/mL} (Normal) Range: 0.450-4.500 05-Iqx-450748:20 CBC with manual diff Comments: PATIENT NOT FASTINGPERFORMED BY: LabCoBobby [place]ille 8205570 [facility] [id number] Information: [id number] (29296) Hematology Comments: Note: (Normal) Comments: Verified by [...] 3.80-5.10 WBC 21.6 {x10E3/uL} (Abnormal) Range: 4.0-10.5 68-Tub-917000:58 Serum Protein Comments: PATIENT NOT FASTINGPERFORMED BY: [facility]CoIn[facility] Mullica HillLfrdii6237 [facility] [id number] Information: ADD [id number] NO DRAW FEE Electrophoresis (SPEP) (74542) A/G Ratio 1.6 (Normal) Range: 0.7-2.0 Please note: SPRCS (Normal) Comments: Protein electrophoresis scan will follow via computer, mail, orcourier delivery. Ofwsq-9-Qpcehymp 0.2 g/dL (Normal) Range: 0.1-0.4 Kdbtk-7-Jivozwrf 0.6 g/dL (Normal) Range: 0.4-1.2 Beta Globulin 0.9 g/dL (Normal) Range: 0.6-1.3 Gamma Globulin 0.9 g/dL (Normal) Range: 0.5-1.6 Globulin, Total 2.6 g/dL (Normal) Range: 2.0-4.5 M-Slim Not Observed g/dL (Normal) Albumin 4.2 g/dL (Normal) Range: 3.2-5.6 Protein, Total, Serum 6.8 g/dL (Normal) Range: 6.0-8.5 17-Roc-781110:58 VITAMIN B-12 (CYANOCOBALAMIN) Comments: PATIENT NOT FASTINGPERFORMED BY: [employer] Hjuuwb6059 [facility] [id number] (66710) Vitamin B12 300 pg/mL (Normal) Range: 211-911 27-Iku-427617:58 SED RATE ERYTHROCYTE (79252) Comments: PATIENT NOT FASTINGPERFORMED BY: [employer] TelecomRehoboth McKinley Christian Health Care ServicesAqhtya8586 [facility] [id number] Sedimentation Rate-Westergren 2 mm/h (Normal) Range: 0-30 48-Fgd-100301:20 CBC With Differential/Platelet Comments: PATIENT WAS FASTINGPERFORMED BY: [employer] Lapent2917 [facility] [id number] Baso (Absolute) 0.1 {x10E3/uL} (Normal) Range: 0.0-0.2 [...] 3.80-5.10 WBC 5.4 {x10E3/uL} (Normal) Range: 4.0-10.5 54-Jyf-514965:20 Comp. Metabolic Panel (14) Comments: PATIENT WAS FASTINGPERFORMED BY: [facility] [id number] [id number] ALT (SGPT) 19 [iU]/L (Normal) Range: 0-40 [...] With LDL/HDL Comments: PATIENT WAS FASTINGPERFORMED BY: [employer] [id number] Ratio HDL Cholesterol 66 mg/dL (Normal) Comments: [...] 1.050 {uIU/mL} Comments: PATIENT WAS FASTINGPERFORMED BY: [employer] [id number] :20 (Normal) Range: 0.450-4.500 :50 CBCD,SMEAR DIFF [...] 47-70 WBC 6.7 K/mm3 (Normal) Range: 4.4-11.0 [id number]:50 COMP METABOLIC A/G 1.1 {RATIO} (Normal) Range: [...] Report See Note (Normal) Comments: Exam Number: [id number] MAMMOGRAM, BILATERAL SCREENING DIGITAL AND CAD HISTORYRoutine [...] mammograms werealso examined with computer-aided detection software ([facility], [employer], [employer] Reported By: ELEANOR ERNANDEZ M.D. :28 CBCD,SMEAR [...] 47-70 WBC 5.4 K/mm3 (Normal) Range: 4.4-11.0 48-Noh-91584:28 COMP METABOLIC A/G 1.2 {RATIO} (Normal) Range: [...] :28 TSH 0.38 {uIU/mL} (Normal) Range: 0.34-4.82 7-Zij-583604:04 Rapid Strep Test, Office (68009) Rapid Strep Test, Office Negative (Normal) 57-Mro-633337:34 BILAT SCRN DIGITAL & CAD Radiology Report See Note (Normal) Comments: Exam Number: [id number] MAMMOGRAM, BILATERAL SCREENING DIGITAL AND CAD HISTORYRoutine [...] mammograms werealso examined with computer-aided detection software ([place], [employer] Reported By: ELEANOR ERNANDEZ M.D. 14-Blc-101592:31 DEXA BONE DENSITY STUDY () Radiology Report See Note (Normal) Comments: Exam Number: [id number] BONE DENSITOMETRY HISTORYPostmenopausal. TECHNIQUE Bone densitometry of [...] withinnormal limits. Reported By: ELEANOR ERNANDEZ M.D. 58-Ymf-544370:39 COMP METABOLIC A/G 1.1 {RATIO} (Normal) Range: [...] : Follow up in 3 months with [facility] Indication: Hypertensive heart disease Hematuria, unspecified [...] Gen Med in Sep 2010 make apt [facility] per pt request Indication: Hydronephrosis Hydronephrosis : Follow up for well woman with [facility] per pt request Indication: Hydronephrosis Anemia : FOLLOW UP IN 2 WEEKS January 07 by [facility] Indication: Anemia Abdominal pain, acute, generalized : FOLLOW UP IN 1 WEEK with [facility] Indication: Abdominal pain, acute, generalized Diarrhea [...] Indication: Bronchitis Planned Observations Metabolic Panel, Comprehensive (23127)Indication: Hypercholesterolemia On: 6-Cnq-946428:52 Request Comments: Jun 2018 LIPID PANEL (55851)Indication: Hypercholesterolemia On: 7-Kwc-298332:51 Request Comments: Jun 2018 URINALYSIS (07262)Indication: Hypertension, essential, benign On: 01-Fyl-330272:52 Request MICROALBUMIN: CREATININE RATIO (11413) AND (23168)Indication: Hypertension, essential, benign On: 19-Rhh-725475:52 Request Metabolic Panel, Comprehensive (91126)Indication: Hypertension, essential, benign On: 79-Oaw-336513:50 Request Comments: send to [facility] CBC, Platelets & Auto Diff (83714)Indication: Hypertension, essential, benign On: 29-Glt-548479:50 Request Comments: send to [facility] TSH (13616)Indication: Hypothyroidism On: 41-Shj-341766:50 Request Comments: send to [facility] LIPID PANEL (61742)Indication: Hypercholesterolemia On: 31-Gwz-275518:50 Request Comments: send to [facility] URINALYSIS (52811)Indication: Hypertension, essential, benign On: 9-Rnq-587328:03 Request Comments: today MICROALBUMIN: CREATININE RATIO (80477) AND (84117)Indication: Hypertension, essential, benign On: 2-Uyg-758167:03 Request Comments: today TSH (89248)Indication: Hypothyroidism On: 9-Nda-673277:03 Request Comments: Jul 2017 MICROALBUMIN: CREATININE RATIO (36643) AND (27301)Indication: Hypertension, essential, benign On: 36-Cvu-705970:51 Request Comments: Mar 2017 URINALYSIS (91041)Indication: Hypertension, essential, benign On: 77-Dkw-617599:51 Request Comments: Mar 2017 TSH (76706)Indication: Hypertension, essential, benign On: 65-Yat-579554:51 Request Comments: Mar 2017 CBC, Platelets & Auto Diff (38918)Indication: Hypertension, essential, benign On: 02-Yoe-208729:51 Request Comments: Mar 2017 Metabolic Panel, Comprehensive (66932)Indication: Hypertension, essential, benign On: 09-Ldv-743940:51 Request TSH (THYROID STIMULATING HORMONE) (77424)Indication: Hypothyroidism On: 93-Hdl-044307:53 Request HEPATIC FUNCTION PANEL (38468)Indication: Hypertension, essential, benign On: 90-Dso-036727:47 Request VITAMIN B12 AND FOLATES (26537)Indication: Vitamin B 12 deficiency On: 1-Ufv-601264:52 Request CALCIFEDIOL (49244)Indication: DEFICIENCY, VITAMIN D NOS On: 0-Nat-980457:52 Request Urinalysis, Office (65236)Indication: Hematuria, unspecified On: 76-Xbl-090534:35 Request MICROALBUMIN URINE QUANT (56191)Indication: Hypertensive heart disease On: 54-Sex-985480:25 Request FECAL OCCULT HGB ASSAY- tubes sent home (72857)Indication: Well woman exam On: 5-Tdc-728892:51 Request OCCULT BLOOD FECES SCREEN- card done in office (08827)Indication: Well woman exam On: 1-Cax-741776:51 Request Renal function Panel (93173)Indication: Hydronephrosis On: 3-Var-767052:22 Request Iron (65187)Indication: Anemia On: 67-Wfl-687463:39 Request Iron Binding Capacity (TIBC) (13939)Indication: Anemia On: 75-Jrn-204986:39 Request OVA & PARASITE DIR SMEAR (20692)Indication: Diarrhea On: 64-Thw-549752:50 Request OCCULT BLOOD FECES SCREEN (53461)Indication: Diarrhea On: 46-Soz-281815:50 Request LEUKOCYTE COUNT, FECAL (04924)Indication: Diarrhea On: 08-Hlb-532217:50 Request C-DIFFICILE, STOOL (53874)Indication: Diarrhea On: 64-Ouk-889987:50 Request LORNA CULTURE-STOOL (70437)Indication: Diarrhea On: 63-Xcp-780253:50 Request HEPATIC FUNCTION PANEL (86350)Indication: Hypercholesterolemia On: 74-Nbl-732689:46 Request Lipid Panel (63114)Indication: Hypercholesterolemia On: 89-Pvk-023490:46 Request Comments: in three months (approximately) TSH (25721)Indication: Hypothyroidism On: 52-Pwm-284928:06 Request METABOLIC PANEL, COMPREHENSIVE (14907)Indication: Hypertensive heart disease On: 71-Qpc-490568:06 Request LIPID PANEL (41436)Indication: Hypertensive heart disease On: 43-Nya-613111:06 Request CBC WITH MANUAL DIFF (84646)Indication: Hypertensive heart disease On: 38-Jzw-476478:06 Request LORNA CULTURE-OTHER (15774)Indication: Pharyngitis, acute On: 3-Gfq-305369:04 Request CBC (Auto) (48662)Indication: Hypercholesterolemia On: 79-Pqe-36774:13 Request Lipid Panel (92852)Indication: Hypercholesterolemia On: :13 Request Metabolic Panel, Comprehensive (57443)Indication: Hypercholesterolemia On: 64-Nsp-11018:13 Request Comments: in six months (approximately) TSH (16348)Indication: Hypothyroidism On: 80-Ogi-044431:06 Request LIPID PANEL (57064)Indication: Hypertension On: 91-Pyv-532483:01 Request Planned Encounters Medical; 3 Month FU - On: 14-Jun-2018 10:45 [facility] Sarai Bro CNP, CNP, Mary E Planned Procedures Flu Vaccine (Quadrivalent) On: 02-Jun-2018 Intent 16888Kk: Sarai Bro CNP Comments: Lot #[id number]/30/[id number]-L dltd, IMDose prefilled syringegiven by: SHARONDA CHOINVIS reviewed and ABN signed Sarai Bro CNP MAMMOGRAM BREAST BILATERAL On: 27-May-2018 Intent SCREENING DIGITAL (71513)By: Sarai Bro CNP, CNP, Mary E Radiology - Femur - RightBy: On: 02-Mar-2018 Intent Sarai Bro CNP, CNP, Mary E DEXA SCAN AXIAL SKELETON On: 19-Oct-2017 Intent (21077)By: Sarai Bro CNP, CNP, Mary E Aerosol Treatment (20642)By: On: 07-Sep-2017 Intent Kelly Naqvi Comments: Lungs clear after aerosol treatment Flu Vaccine (Quadrivalent) On: 13-Apr-2017 Intent 75482Qo: Giselle Silva LPN Comments: InfluenzaLot #[id number]-/18/18Site-L dltd, IMDose prefilled syringeVIS and ABN signedgiven by:ROSA MARIA cade MAMMOGRAM BREAST BILATERAL On: 05-Jan-2017 Intent SCREENING DIGITAL (79131)By: Comments: after Apr 24 2017 Sarai Bro CNP, CNP, Mary E DEXA SCAN AXIAL SKELETON On: 05-Jan-2017 Intent (83459)By: Sarai Bro CNP Comments: After Apr 24 2017 Sarai Bro CNP Flu Vaccine (Quadrivalent) On: 06-Jul-2016 Intent [id number]: Giselle Silva LPN Comments: InfluenzaLot #Lot [id number]/30/17Site-L dltd, IMDose prefilled syringeVIS and ABN signedgiven by:ROSA MARIA cade MAMMOGRAM, SCREENING, BOTH On: 31-Mar-2016 Intent BREAST (32977)By: Sarai Bro CNP, CNP, Mary E MAMMOGRAM, SCREENING, BOTH On: 17-Feb-2016 Intent BREAST (91102)By: Sarai Bro CNP, CNP, Mary E PHYSICAL THERAPY EVALUATION On: 28-Jan-2016 Intent (15176)By: Sarai Bro CNP, CNP, Mary E PHYSICAL THERAPY EVALUATION On: 28-Jan-2016 Intent (79841)By: Sarai Bro CNP, CNP, Mary E Toradol Injection, 30 mg On: 28-Jan-2016 Intent (J1885)By: Roccoyin CARNEYSarai CNP, Mary E Radiology - Lumbar SpineBy: On: 28-Jan-2016 Intent Sarai Bro CNP, CNP, Mary E Radiology - Knee - LeftBy: On: 28-Jan-2016 Intent Sarai Bro CNP, CNP, Mary E Aerosol Treatment (32393)By: On: 24-Dec-2015 Intent Sarai Bro CNP, CNP, Mary E Flu Vaccine (Quadrivalent) On: 10-May-2015 Intent 34458Gi: Hang ANGELIKA Sarai Moon Comments: Lot:[id number]:02/06/16Dose:0.5mLRoute:IMSite:L DltdGiven By:Kacie signed Hang ANGELIKA Sarai Moon DEXA SCAN AXIAL SKELETON On: 19-Mar-2015 Intent (58501)By: Hang CARNEY Sarai Busby CNP MAMMOGRAM, SCREENING, BOTH On: 11-Feb-2015 Intent BREAST (76514)By: Hang ANGELIKASarai CNP, Mary E DEXA SCAN AXIAL SKELETON On: 11-Feb-2015 Intent (22170)By: Roccoyin CARNEYSarai CNP, Mary E Solu -Medrol Injection, 125 On: 25-Jul-2014 Intent mg (J2930)By: Hang CARNEY, Comments: [id number] 5.17right gm125 mgas, [employer] Sarai Busby CNP Aerosol Treatment (11009)By: On: 25-Jul-2014 Intent Sarai Bro CNP, CNP, Mary E Toradol Injection, 30 mg On: 18-Jul-2014 Intent (J1885)By: Roccoyin CARNEYSarai CNP, Mary E Radiology - Lumbar SpineBy: On: 18-Jul-2014 Intent Sarai Bro CNP, CNP, Mary E Radiology - Hip - RightBy: On: 18-Jul-2014 Intent Sarai Bro CNP, CNP, Mary E Prevnar 13 (24498)By: Ricardo On: 16-Jul-2014 Intent Giselle CRANE Comments: [id number] arm, IMAS Bone Density StudyBy: Hang On: 15-May-2014 Intent Sarai CARNEY CNP, Mary E ADMINISTRATION OF INFLUENZA On: 15-May-2014 Intent VIRUS VACCINE (G0008)By: Tiffaniewojciechyin CARNEY Sarai Bro CNP Sarai Moon FLU VAC, SPLIT, >3 YEARS, On: 15-May-2014 Intent INTRAMUSC (04579)By: Hang Comments: Lot:[id number]/24Dose:0.5mLRoute:IMSite:L DltdGiven By:FIDENCIO signed Sarai CARNEY CNP Sarai Moon SPECIMEN HNDLNG/TRNSPRT, OFFC On: 22-Mar-2014 Intent > LAB (54034)By: Hang CARNEY Sarai Bro CNP Sarai Moon BILATERAL MAMMOGRAMS On: 18-Dec-2013 Intent (40769)By: Hang CARNEY Sarai Bro ANGELIKA Sarai Moon Aerosol Treatment (11770)By: On: 22-Sep-2013 Intent Roccoyin CARNEY Sarai Bro CNP Sarai Moon Wax CurettesBy: Roccoyin ANGELIKA, On: 22-Sep-2013 Intent Sarai Busby CNP Ear Irrigation (26266)By: On: 22-Sep-2013 Intent Sarai Bro CNP, CNP, Mary E Eprescribed prescriptions On: 18-Aug-2013 Intent (G8553)By: Lucrecia Vargas Eprescribed prescriptions On: 05-May-2013 Intent (G8553)By: Hang CARNEY Sarai Bro CNP Sarai Moon ADMINISTRATION OF INFLUENZA On: 05-May-2013 Intent VIRUS VACCINE (G0008)By: Comments: lot # [id number]- 6.2014site- L dltdroute-IMdose- 0.5mlRICHARD and ROMEL signedPenny Hauser LPN, LPN FLU VAC, SPLIT, >3 YEARS, On: 05-May-2013 Intent INTRAMUSC (09422)By: Penny Irving LPN MAMMOGRAM, SCREENING, BOTH On: 16-Dec-2012 Intent BREASTS (38857)By: Hang CARNEY Sarai Moon Ciesyin CARNEY Rianna Spirometry (21561)By: Aristides On: 16-Dec-2012 Intent Penny CRANE Comments: mild airway obstruction Aerosol Treatment (32936)By: On: 30-Mar-2012 Intent Hang CARNEY RiannaRed Bro CNP Rianna PFT - CompleteBy: Hang CARNEY, On: 01-Mar-2012 Intent Rianna Ciwojciechyin CARNEY Rianna Inhaler Demonstration On: 28-Dec-2011 Intent (86287)By: Hang CARNEY RiannaRed Bro CNP Rianna Pulse Oximetry (69996)By: On: 28-Dec-2011 Intent Tiffaniewojciehcyin CARNEY Sarai Moon Tiffaniebonita ANGELIKA Rianna Eprescribed prescriptions On: 22-Apr-2011 Intent (G8553)By: Hang CARNEY RiannaRed Bro CNP Rianna Eprescribed prescriptions On: 21-Oct-2010 Intent (G8553)By: Hang CARNEY Rianna Ciwojciechyin CARNEY Rianna Eprescribed prescriptions On: 21-Oct-2010 Intent (G8553)By: Hang CARNEY Rianna Ciwojciechyin CARNEY Rianna MAMMOGRAM, SCREENING, BOTH On: 15-Apr-2010 Intent BREASTS (90093)By: Hang CARNEY RiannaRed Bro CNP Rianna Ultrasound - RenalBy: Hang On: 23-Dec-2009 Intent ANGELIKA RiannaRed Bro CNP Rianna Comments: To be done on December 30 CT - Abdomen & Pelvis (IV On: 17-Dec-2009 Intent Contrast Needed)By: Hang CARNEY RiannaRed Bro CNP Rianna ADMINISTRATION OF INFLUENZA On: 22-May-2009 Intent VIRUS VACCINE (G0008)By: Karina Nina LPN FLU VAC, SPLIT, >3 YEARS, On: 22-May-2009 Intent INTRAMUSC (15725)By: Kelle Comments: Lot #[id number]-left deltoidgiven by:Karina PLAZA LPN Pulse Oximetry (50144)By: On: 25-Sep-2008 Intent PRESTON Thompson ADMINISTRATION OF INFLUENZA On: 13-Jun-2008 Intent VIRUS VACCINE (G0008)By: Comments: lot #[id number] exp- 01/15site-left delroute-imdose- 0.5 Penny Irving LPN FLU VAC, SPLIT, >3 YEARS, On: 13-Jun-2008 Intent INTRAMUSC (35267)By: Penny Irving LPN MAMMOGRAM, SCREENING, BOTH On: 28-May-2008 Intent BREASTS (39804)By: Susan Lee MD Bio Z (49980)By: Rosa CHRISTIANSEN, On: 28-Nov-2007 Intent Susan Sánchez SPECIMEN HNDLNG/TRNSPRT, OFFC On: 12-Oct-2007 Intent > LAB (86463)By: Tyesha Ramos DO Bone Density StudyBy: Rosa On: 18-Feb-2007 Intent Susan CHRISTIANSEN Comments: ache in back MAMMOGRAM, SCREENING, BOTH On: 18-Feb-2007 Intent BREASTS (07407)By: Susan Lee MD Bio Z (89085)By: Rosa CHRISTIANSEN, On: 20-Jul-2006 Intent Susan Sánchez Planned Medications INJECTION, KETOROLAC TROMETHAMINE, PER 15 MG Ordered: 18-Jul-2014 Pending Ciesa LIME SPREADER, Rianna Ciesa LIME SPREADER, Rianna INJECTION, KETOROLAC TROMETHAMINE, PER 15 MG Ordered: 28-Jan-2016 Pending Ciesa LIME SPREADER, Rianna Ciesa LIME SPREADER, Rianna INJECTION, METHYLPREDNISOLONE SODIUM SUCCINATE, UP TO 125 MG Ordered: 25-Jul-2014 Pending Ciesa LIME SPREADER, Rianna Ciesa LIME SPREADER, Rianna Instructions Name Dates Details Nonsmoker : [...] In January had cardioversion by Dr. Jackson dnaielson. On coumadin now Legs both better with [...] The patient does have durable power of log inspector and living will. The patient has noticed nothing from the geriatic depression scale. Other providers contributing to the katty ent's care are door worker (Dr paz ), valuation consultant (Dr Vazquez ), urologist (Dr Pope ) [...]
--- OUTSIDE RECORDS SUMMARY | 2018-10-30 18:28 | XMS RPT_ITS | Continuity of Care Document ---
:1940 Author Organization [facility] Address [address] [facility] [address] [place] [address] Phone Care Team Providers Name Role Phone Tiffaniebonita ANGELIKA, Rianna Unavailable Amanda CHRISTIANSEN, Higinio Longoria Unavailable Turner CHRISTIANSEN, Nahun Plaza Unavailable [facility] BC, Eugenie Tovar Unavailable Rosa CHRISTIANSEN, [...] : 18-Aug-2013 End : 28-Aug-2013 Inactive DRISDOL, [id number] (Oral Capsule) 1 Capsule twice weekly for [...] for 0 days Refills: 0 Ordered:31-Mar-2010 Aristides CIRCUS HAND, ChrissieInactive LEVSIN/SL, 0.125MG (Sublingual Tablet Sublingual) Tab [...] Quantity: 21 {Tablet} Refills: 0 Ordered:15-Nov-2017 Hang ZINC ETCHER, Sarai Malka ZINC ETCHER, Rianna Start : 15-Nov-2017 End : 22-Nov-2017 [...] Quantity: 60 {Capsule} Refills: 0 Ordered:10-May-2015 Slarb CIRCUS HANDGiselle Benson Start : 22-Apr-2011 End : 10-May-2015 [...] Lower Extremity Result: Comments: See Note; NOTES: [facility] Cardiovascular Services [address] [place] [address] Venous Duplex US - Paulie Extrem 04/07/18 1000 MR#: [id number] Acct: [id number] Name: VALERIE CRAIN Rep #: [id number] : 1940 77 From: Higinio Patel MD [...] Date Higinio Patel MD CC: Sarai Bro PERFORATOR LOADER; Higinio Patel MD Date Dictated: 04/07/18 1000 Date Transcribed: 04/08/18 160 Mortgage Lender: Signed 02-Mar-2018 Femur Min 2 Views Result: Comments: See Note; NOTES: [facility] Imaging Services [address] [place] [address] Femur Min 2 Views MR#: [id number] Acct: [id number] Name: VALERIE CRAIN Rep #: [id number] : 1940 F 77 From: Christiano Croft MD PCP: Sarai Bro NP Status: REG CLI Study: Femur Min 2 Views Date of Exam: 03/02/18 Exam# [id number] Ordering Dr: Sarai Bro STUDY: X-RAY - [...] vice support , CC: Sarai Bro NP Mortgage Lender: Signed 10-Feb-2018 Echocardiogram Complete Result: Comments: See Note; NOTES: [facility] Cardiovascular Services [address] [place] [address] Echo Complete 02/10/18 1100 MR#: [id number] Acct: [id number] Name: VALERIE CRAIN Rep #: [id number] : 1940 77 From: Amilcar Paz MD Attending Dr: Jennifer Goodwin Status: REG CLI Ordering Dr: Jennifer Goodwin Date: 02/10/18 Location: [facility] Sex: F C Admitted: [facility] For Study: DYSPNEA Procedure [...] Date Amilcar Paz MD CC: Sarai Bro PERFORATOR LOADER; Jennifer Goodwin Date Dictated: 02/10/18 1100 Date Transcribed: 02/10/18 1241 Mortgage Lender: Signed 28-Jan-2018 Cardiology Visit Report Result: Comments: See Note; NOTES: [facility] [address] [place] [address] OFFICE VISIT Date of Service: 01/28/18 MR#: [id number] Acct: [id number] Name: VALERIE CRAIN Rep #: [id number] : 1940 Provider: Jennifer Goodwin Age/Sex: 77/F Location: [facility] Status: Signed HPI HPI Details: [...] for her age. 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 She does have [...] valve disorder (Chronic) Paroxysmal atrial fibrillation (Chronic) care home (current) use of anticoagulants (Chronic) Benign essential HTN (Chronic) Surgical History History of appendectomy (Resolved) H/O mitral valve repair (Chronic) Family History Father Decea sed, age 48 from [place] CAD (coronary artery disease) Sudden cardiac Myocardial [...] prior to saving. 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 Medical Records Department [address] [facility] [place] [address] Downtime Report MR#: [id number] Acct: [id number] Name: VALERIE CRAIN Rep #: [id number] : 1940 77 From: Anuj Webster PCP: Sarai Bro NP Status: REG RCR This patient was seen during an EMR downtime January 10, 2018 - January 17, 2018. This patient may have a combination of pa per and electronic documentation or all paper documentation. All documentation is viewable within the e-chart portion of [facility] for each patient visit. 09-Nov-2017 Dexa Bone Density Study Result: Comments: See Note; NOTES: [facility] Imaging Services [address] [place] [address] Dexa Bone Density Study MR#: [id number] Acct: [id number] Name: VALERIE CRAIN Rep #: [id number] : 1940 F 77 From: Henry Jones MD PCP: Sarai Bro NP Status: REG CLI Study: Dexa Bone Density Study Date of Exam: 11/09/17 Exam# [id number] Ordering Dr: Sarai Bro STUDY: DUAL E [...] Henry Jones MD at 13:40 EDT Tel [phone], Service support , CC: Sarai Bro NP Mortgage Lender: Signed 27-Jul-2017 Cardiology Visit Report Result: Comments: See Note; NOTES: [facility] 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 Imaging Services [address] [place] [address] SCREENING MAMM (CAD), BILAT MR#: [id number] Acct: [id number] Name: SEAN CRAIN Rep #: [id number] : 1940 F 76 From: Henry Jones MD PCP: Sarai Bro Status: REG CLI Study: SCREENING MAMM (CAD), BILAT Date of Exam: 05/17/17 Exam# [id number] Ordering Dr: Sarai Bor MAMMOGRAPH Y - BILATERAL SCREENING REASON FOR [...] delay biopsy of a clinically suspicious abnormality. [id number] Electronically Signed: Henry Jones MD at 10:21 EDT Tel [phone], Service support , CC: Sarai Bro Mortgage Lender: Signed 27-Feb-2017 Carotid Duplex Ultrasound Result: Comments: See Note; NOTES: [facility] Cardiovascular Services [address] [place] [address] Carotid Duplex Ultrasound 02/26/17 1046 MR#: [id number] Acct: [id number] Name: SEAN ABEBE Rep #: [id number] : 1940 76 From: Malcolm Hill MD Attending Dr: Jennifer Goodwin Status: REG CLI Ordering Dr: Jennifer Goodwin Date: 02/26/17 Location: [facility] Sex: F C Admitte d: [...] Dictated: 02/26/17 1046 Date Transcribed: 02/27/17 1103 Mortgage Lender: Signed 03-Sep-2016 Chest PA and Lateral Result: Comments: See Note; NOTES: [facility] Imaging Services [address] [place] [address] Verdana 4d Chest PA and Lateral MR#: [id number] Acct: [id number] Name: SEAN CRAIN Rep # : [id number] : 1940 F 76 From: Henry Jones MD PCP: Sarai Bro Status: REG CLI Study: Chest PA and Lateral Date of Exam: 09/03/16 Exam# [id number] Ordering Dr: Nahun Vazquez MD STUD Y: [...] Henry diop MD at 12:41 EST Tel [phone], Service support [phone], CC: Sarai Bro; Nahun Vazquez MD Mortgage Lender: Signed 28-Aug-2016 Echocardiogram Complete Result: Comments: See Note; NOTES: [facility] Cardiovascular Services [address] [place] [address] Echo Complete 08/28/16 1003 MR#: [id number] Acct: [id number] Name: SEAN CRAIN p #: [id number] : 1940 76 From: Amilcar Paz MD Attending Dr: Jackson CHRISTIANSEN,Amilcar Status: REG CLI Ordering Dr: Amilcar Paz MD Date: 08/28/16 Location: [facility] Sex: F C Admitted: Reason For Study: AT [facility] FIBRILLATION Procedure This was a 2D [...] Dictated: 08/28/16 1003 Date Transcribed: 08/28/16 1225 Mortgage Lender: Signed 24-Apr-2016 Bilat Scrn Digital AND CAD Result: Comments: See Note; NOTES: [facility] Imaging Services [address] [place] [address] Verdana 4d Bilat Scrn Digital AND CAD MR#: [id number] Acct: [id number] Name: BREANNSEAN Rep #: [id number] : 1940 F 75 From: Henry Jones MD PCP: Sarai Bro Status: REG CLI Study: Jero Edwards Digital AND CAD Date of Exam: 04/24/16 Exam# [id number] Ordering Dr: Sarai Bro MAMMOGRAPHY - BILATERAL [...] significant change since the prior study. ___ [facility]/Jero Edwards Digital AND CAD IMPRESSION: Stable bilateral screening mammogram. Yearly follow-up mammogram recommended. (A) ASSESSMENT CATEGORY: BIRADS Category 1: Negative. A letter regarding these results will be sent to the patient by the facility within 30 days. Approximately 10% of breast cancers are n ot detected by mammography. A normal mammogram should not delay biopsy of a clinically suspicious abnormality. [id number] Electronically Signed: Henry Jones MD at 10:58 EDT Tel [phone], Service support [phone], CC: Sarai Bro Mortgage Lender: Signed 04-Mar-2016 PT D/C Summary (1) Result: Comments: See Note; NOTES: [facility] Physical Therapy [facility] [address] [place] [address] Fax REHABILITATION SE [facility] DISCHARGE SUMMARY MR#: [id number] Acct: [id number] Name: SEAN CRAIN Rep #: [id number] : 1940 75 From: Giselle NELSON Referring [...] please feel free to call me at [phone]. Thank you for the referral of this patie nt. Sincerely, Giselle Yan <Electronically signed by Giselle Yan MPT> 03/04/161916 CC: Sarai Bro Signed 04-Feb-2016 Inital Evaluation (1) - PT Result: Comments: See Note; NOTES: [facility] [address] [facility] [address] [place] [address] Fax [facility]HABILITATION [facility] INITIAL EVALUATION MR#: [id number] Acct: [id number] Name: SEAN CRAIN Rep #: [id number] : 1940 75 From: Giselle Yan MPT [...] to be FAXED BACK to us at [phone] for Medicare purposes . Please let me know if there are questions or concerns regarding this plan of care. Physician Signature: Date: <Electronical ly signed by Giselle Yan MPT> 02/04/16 1628 CC: Sarai Bro Signed For Medicare only, by signing this I certify the plan of care. Physicians Signature Date 28-Jan-2016 Knee 4 or More Views Result: Comments: See Note; NOTES: [facility] Imaging Services [address] [place] [address] Verdana 4d Knee 4 or More Views MR#: [id number] Acct: [id number] Name: SEAN DWYER Rep #: [id number] : 1940 F 75 From: Shreyas Beaver MD PCP: Sarai Bro Status: REG CLI Study: Knee 4 or More Views Date of Exam: 01/28/16 Exam# [id number] Ordering Dr: Sarai Bro STUDY: X-RAY - [...] MD at 19:39 EDT , Service support [phone], ORDER # : [id number] RAD/Knee 4 or More Views IMPRESSION: No acute abnormality. Mild degenerative changes. Electronically Signed: Shreyas Beaver MD at 19:39 EDT , Service sup port [phone], CC: Sarai Bro Mortgage Lender: Signed 28-Jan-2016 L/S Spine Min 4 Views Result: Comments: See Note; NOTES: [facility] Imaging Services [address] [place] [address] Verdana 4d L/S Spine Min 4 Views MR#: [id number] Acct: [id number] Name: SEAN BERRIOS Rep #: [id number] : 1940 F 75 From: Shreyas Beaver MD PCP: Sarai Bro Status: REG CLI Study: L/S Spine Min 4 Views Date of Exam: 01/28/16 Exam# [id number] Ordering Dr: Shital Bro STUDY: X-RAY - [...] MD at 19:40 EDT , Service support [phone], Fax RAD/L/S Spine Min 4 Views IMPRESSION: No acute abnormality. Mild to moderate degenerative changes. Electronically Signed: Shreyas Beaver MD at 19:40 EDT T el [phone], Service support [phone], CC: Sarai Bro Mortgage Lender: Signed 19-Mar-2015 Dexa Bone Density Study (HP) Result: Comments: See Note; NOTES: [facility] Imaging Services [address] [place] [address] Bone Density Report MR#: [id number] Acct: [id number] Name: SEAN CRAIN Rep #: [id number] : 1940 F 74 From: Henry Jones MD PCP: Sarai Bro Status: REG CLI Study: Dexa Bone Density Study (HP) Date of Exam: 03/19/15 Exam# [id number] Ordering Dr: Sarai Bro STUD Y: DUAL [...] Henry Jones MD at 14:35 EDT Tel [phone], Servic e support [phone], CC: Sarai Bro Mortgage Lender: Signed 12-Mar-2015 Bilat Scrn Digital AND CAD Result: Comments: See Note; NOTES: [facility] Imaging Services [address] [place] [address] Breast Imaging Report MR#: [id number] Acct: [id number] Name: SEAN CRAIN Rep #: [id number] : 1940 F 74 From: Henry Jones MD PCP: Sarai Bro Status: REG CLI Study: Bilat Scrn Digital AND CAD Date of Exam: 03/12/15 Exam# [id number] Ordering Dr: Sarai Bro MAMM OGRAPHY - [...] Jones MD 23/03/04 at 9:59 EDT Tel [phone], Service support [phone], CC: Sarai Bro Mortgage Lender: Signed 16-Jan-2015 Operative Report Result: Comments: See Note; NOTES: [facility] Medical Records Department [address] [place] [address] Operative Report MR#: [id number] Acct: [id number] Name: SEAN CRAIN Rep #: [id number] : 1940 74 From: Amilcar Paz MD [...] care. Amilcar Paz MD T: NTS JOB: [id number] 01/16/15 0901 <Electronically signed by Amilcar Paz MD&amp ;#62; Date Amilcar Paz MD CC: Sarai Bro; Amilcar Paz MD Date Dictated: 01/14/151318 Date Transcribed: 01/14/151318 Mortgage Lender: Signed 15-Jan-2015 Consultation Result: Comments: See Note; NOTES: [facility] Medical Records Department [address] [place] [address] Consultation MR#: [id number] Acct: [id number] Name: SEAN CRAIN Rep #: [id number] : 1940 74 From: Armando Guerra MD [...] C C: Amilcar Bro T: NTS JOB: [id number] 01/15/15 0643 <Electronically signed by Armando Guerra MD> Date Armando Guerra MD CC: Sarai Bro; Armando Guerra MD; Amilcar Paz MD Date Dictated: 01/14/151356 Date Transcribed: 01/14/151356 Mortgage Lender: Signed 07-Jan-2015 Chest PA and Lateral Result: Comments: See Note; NOTES: [facility] Imaging Services [address] [place] [address] Radiology Report MR#: [id number] Acct: [id number] Name: SEAN CRAIN Rep #: [id number] : 1940 F 74 From: Henry Jones MD PCP: Sarai Bro Status: PRE CLI Study: Chest PA and Lateral Date of Exam: 01/07/15 Exam# [id number] Ordering Dr: Amilcar Paz MD STUDY: X-RA [...] Henry Jones MD at 14:28 EDT Tel [phone], Service support [phone], RAD/Chest PA and Lateral IMPRESSION: Hyperinflation. No acute abnormality is seen. Electronically Signed: Henry Jones MD 2014 at 14:28 EDT Tel [phone], Service support [phone], CC: Sarai Bro; Amilcar Paz MD Mortgage Lender: Signed 24-Dec-2014 Echocardiogram Complete Result: Comments: See Note; NOTES: [facility] Cardiovascular Services [address] [place] [address] Echo Complete 12/24/14 1003 MR#: [id number] Acct: [id number] Name: SEAN CRAIN Rep #: [id number] : 1940 74 From: Amilcar Paz MD Attending Dr: Jennifer Mnoroe Status: REG CLI Ordering Dr: Jennifer Monroe Date: 12/24/14 Location: [facility] Sex: F C Admitted: Pr [...] Jennifer Monroe Performed By: SANTA Banegas 12/24/14 7389 Date Amilcar Paz MD CC: Sarai Bro; Jennifer Monroe Date Dictated: 12/24/14 1003 Date Transcribed: 12/24/14 1359 Mortgage Lender: Signed 19-Jul-2014 Hip min 2 Views Result: Comments: See Note; NOTES: [facility] Imaging Services [address] [place] [address] Radiology Report MR#: [id number] Acct: [id number] Name: SEAN CRAIN Rep #: [id number] : 1940 F 74 From: Henry Jones MD PCP: Sarai Bro Status: REG CLI Study: Hip min 2 Views Date of Exam: 07/19/14 Exam# [id number] Ordering Dr: Sarai Bro STUDY: X-RAY - [...] Henry Jones MD at 11:38 EST Tel [phone], Service support [phone], RAD/Hip min 2 Views IMPRESSION: Degenerative changes of the hip. Electronically Signed: Henry Jones MD at 11:38 EST Tel [phone], Service support [phone], CC : Sarai Bro Mortgage Lender: Signed 19-Jul-2014 L/S Spine Min 4 Views Result: Comments: See Note; NOTES: [facility] Imaging Services [address] [place] [address] Radiology Report MR#: [id number] Acct: [id number] Name: SEAN CRAIN Rep #: [id number] : 1940 F 74 From: Henry Jones MD PCP: Sarai Bro Status: REG CLI Study: L/S Spine Min 4 Views Date of Exam: 07/19/14 Exam# [id number] Ordering Dr: Sarai Bro STUDY: X-RAY - [...] Henry Jones MD at 13:19 EST Tel [phone], Service support [phone], CC: Sarai Bro Mortgage Lender: Signed 05-Jan-2014 Bilat Scrn Digital & CAD Result: Comments: See Note; NOTES: [facility] Imaging Services [address] [facility] [place] [address] Breast Imaging Report MR#: [id number] Acct: [id number] Name: SEAN CRAIN Rep #: [id number] : 1940 F 73 From: Henry Jones MD PCP: Status: [facility] CLI Exam# [id number] Ordering Dr: Sarai Bro MAMMOGRAPHY - BILATERAL [...] Henry Jones MD at 9:58 EDT Tel [phone], Service support [phone], CC: Sarai Bro; Amilcar Paz MD Mortgage Lender: Signed Immunization Name Dates Details Influenza (3 years and up) on: 13-Jun-2008 Influenza (3 years and up) on: 22-May-2009 Comments: Lot #[id number]-left deltoidgiven by:CDH Family History Unknown Family Member Name Dates Details Father Comments: [place] at 48 & Status: Active Social History [...] Inactive Vital Signs Date Test Result Details 87-Pdo-264664:20 Temperature 99.4 f Comments: Method: Temporal Pulse [...] kg/m2 Body Surface Area Calculated 1.87 m2 6-Ezi-913139:30 Temperature 97.7 f Comments: Method: Temporal Pulse [...] kg/m2 Body Surface Area Calculated 1.86 m2 86-Vqs-350884:20 Temperature 98.2 f Pulse 67 /min Comments: [...] kg/m2 Body Surface Area Calculated 1.85 m2 61-Ncr-027760:44 Temperature 98 f Comments: Method: Oral Pulse [...] kg/m2 Body Surface Area Calculated 1.81 m2 13-Zbd-655895:30 Temperature 99.2 f Comments: Method: Oral Pulse [...] kg/m2 Body Surface Area Calculated 1.81 m2 46-Mjr-234458:39 Temperature 99 f Comments: Method: Oral Pulse [...] Value Details :18 Prothrombin Time w/INR Comments: [facility] [address] [place], [place], [phone]) INR 2.7 (Normal) PROTIME 28.4 s (Abnormal) Range: 11.7-14.9 16-Oxp-701344:14 Prothrombin Time w/INR Comments: [facility] [address] [place], [place], [phone](136) INR 2.2 (Normal) PROTIME 24.6 s (Abnormal) Range: 11.7-14.9 :18 Prothrombin Time w/INR Comments: [facility] [address] [place], [place], [phone](691) INR 2.2 (Normal) PROTIME 24.3 s (Abnormal) Range: 11.7-14.9 :26 Prothrombin Time w/INR Comments: [facility] [address] [place], [place], [phone](271) INR 2.2 (Normal) PROTIME 24.6 s (Abnormal) Range: 11.7-14.9 :13 Prothrombin Time w/INR Comments: [facility] [address] [place], [place], [phone](310) INR 2.3 (Normal) PROTIME 25.7 s (Abnormal) Range: 11.7-14.9 :58 Prothrombin Time w/INR Comments: [facility] [address] [place], [place], [phone](191) INR 2.0 (Normal) PROTIME 22.8 s (Abnormal) Range: 11.7-14.9 :45 CBC W/Diff, Automated Comments: [facility] [address] [place], [address] ; another Absolute Lymph 2.13 [...] Range: 4.4-11.0 :45 Comprehensive Metabolic Profil Comments: [facility] [address] [place], [address] ; Dr Ajckson GAP 8 (Normal) Range: 5-15 CO2 28.0 [...] Comments: Please note revised GLUCOSE reference range dwhqlnmbu72/02/2018. 88-Ccf-13691:45 Lipid Profile Comments: [facility] [address] [place], [address] VLDL 17 mg/dL (Normal) Range: 5-40 LDL [...] 200-240 mg/dL Borderline >240 mg/dL High Risk 06-Iba-25617:45 Microalb:Creat Ratio,Random UR Comments: [facility] [address] [place], [place], [phone] MALB:CREAT 8.4 {mg/g_CRE} (Normal) MICROALBUMIN,UR 13.5 mg/L (Normal) UR CREAT 160.00 mg/dL (Normal) 58-Cbg-90736:45 Prothrombin Time w/INR Comments: [facility] [address] [place], [address] INR 1.9 (Normal) PROTIME 21.5 s (Abnormal) Range: 11.7-14.9 Comments: ADDENDA: cardio :45 Thyroid Stim Hormone (TSH) Comments: [facility] [address] [place], [address] TSH 2.92 {uIU/mL} (Normal) Range: 0.358-3.74 24-Ild-26723:45 Urinalysis, Routine (Dipstick) Comments: How was Urine Obtained? [facility] [address] [place], [address] ; other doc LEUK ESTERASE 100 /ul (Abnormal) OCCULT BLOOD-UR 50 /ul (Abnormal) NITRITE UR Negative (Normal) UROBILI Normal mg/dL (Normal) PROT DIPSTX Negative mg/dL (Normal) pH UR 6.0 (Normal) Range: 5.0 - 8.0 SP.GR. DIPSTX 1.020 (Normal) Range: 1.002-1.030 KETONE UR Negative mg/dL (Normal) BILIRUBIN URINE Negative mg/dL (Normal) GLUCOSE, UR Normal mg/dL (Normal) CLARITY Cloudy (Normal) COLOR Yellow (Normal) 19-Bve-600686:31 Prothrombin Time w/INR Comments: [facility] [address] [place], [place], [id number] INR 2.1 (Normal) PROTIME 23.3 s (Abnormal) Range: 11.7-14.9 1-Dqf-244994:20 Prothrombin Time w/INR Comments: [facility] [address] [place], [address] INR 2.2 (Normal) Comments: ADDENDA: managed by cardio PROTIME 24.1 s (Abnormal) Range: 11.7-14.9 18-Ziu-042168:40 Prothrombin Time w/INR Comments: [facility] [address] [place], [address] ; managed by cardio INR 2.0 (Normal) PROTIME 22.9 s (Abnormal) Range: 11.7-14.9 40-Lic-211769:13 Prothrombin Time w/INR Comments: [facility] [address] [place], [place], [phone] INR 1.6 (Normal) PROTIME 19.5 s (Abnormal) Range: 11.7-14.9 24-Gic-464697:28 Prothrombin Time w/INR Comments: [facility] [address] [place], [phone] ; cardio INR 1.8 (Normal) PROTIME 19.8 s (Abnormal) Range: 11.7-14.9 6-Nmv-030244:53 Prothrombin Time w/INR Comments: [place] [address] [place], [address] INR 2.4 (Normal) PROTIME 24.8 s (Abnormal) Range: 11.7-14.9 9-Npx-741048:26 Prothrombin Time w/INR Comments: [facility] [address] [place], [address] INR 1.9 (Normal) PROTIME 21.2 s (Abnormal) Range: 11.7-14.9 80-Ihg-146652:42 Rapid Flu (83222 x 2) Influenza A Ag POS B (Normal) 62-Bwx-779065:04 Prothrombin Time w/INR Comments: [facility] [address] [place], [place], [address] ; cardio manages INR 1.4 (Normal) PROTIME 16.5 s (Abnormal) Range: 11.7-14.9 12-Wmv-733000:28 Prothrombin Time w/INR Comments: [facility] [address] [place], [place], [address] INR 1.2 (Normal) PROTIME 14.3 s (Normal) Range: 11.7-14.9 9-Jfq-879967:11 Prothrombin Time w/INR Comments: [facility] [address] [place], [place], [address] INR 2.0 (Normal) PROTIME 21.6 s (Abnormal) Range: 11.7-14.9 42-Bth-495513:18 CBC W/Diff, Automated Comments: [facility] [address] [place], [address] Absolute Lymph 2.38 {X10_3/ul} [...] Range: 4.4-11.0 :18 Prothrombin Time w/INR Comments: [facility] [address] [place], [place], [address] INR 2.1 (Normal) PROTIME 22.8 s (Abnormal) Range: 11.7-14.9 :52 POTASSIUM SERUM (85179) Comments: STAT; Order Date: 07/23/17Order Info: 2823-3 - KComments: [facility] [address] [place], [place], [address] K 4.4 mmol/L (Normal) Range: 3.5-5.1 32-Ucp-087614:56 Microscopic Examination Comments: PATIENT NOT FASTINGPERFORMED BY: [email or web address] [place] [id number] Bacteria Few (Normal) Mucus Threads Present (Normal) Epithelial Cells (non renal) 0-10 {/hpf} (Normal) Range: 0 - 10 RBC 3-10 {/hpf} (Abnormal) Range: 0 - 2 WBC 0-5 {/hpf} (Normal) Range: 0 - 5 :56 VITAMIN B-12 (CYANOCOBALAMIN) Comments: PATIENT NOT FASTINGPERFORMED BY: [facility] Qfblmh2323 Murray[place]ouncebl[place] [id number] (81804) Vitamin B12 451 pg/mL (Normal) Range: 232-1245 Comments: Please note reference interval change :56 TSH (22782) Comments: PATIENT NOT FASTINGPERFORMED BY: [facility] Mjbfwo8425 [place]bl[place] [id number] TSH 2.910 {uIU/mL} (Normal) Range: 0.450-4.500 :56 URINALYSIS, W/ MICRO (49129) Comments: PATIENT NOT FASTINGPERFORMED BY: [facility] CorpR[facility] HealthCareGsyvta[address] [facility] [id number] Microscopic Examination See below: (Normal) Comments: Microscopic was indicated and was performed. Nitrite, Urine Negative (Normal) Urobilinogen,Semi-Qn 0.2 mg/dL (Normal) Range: 0.2-1.0 Bilirubin Negative (Normal) Occult Blood 1+ (Abnormal) Ketones Negative (Normal) Glucose Negative (Normal) Protein Negative (Normal) WBC Esterase Trace (Abnormal) Appearance Clear (Normal) Urine-Color Yellow (Normal) pH 7.0 (Normal) Range: 5.0-7.5 Specific [place]amo 1.017 (Normal) Range: 1.005-1.030 :56 MICROALBUMIN: CREATININE RATIO Comments: PATIENT NOT FASTINGPERFORMED BY: [facility] CorpR[facility] HealthCareWzhotj06[address] [facility] [id number] (53287) AND (08009) Microalb/Creat Ratio 7.4 {mg/g_creat} (Normal) Range: 0.0-30.0 Microalbumin, Urine 5.0 ug/mL (Normal) Creatinine, Urine 68.0 mg/dL (Normal) :56 METABOLIC PANEL, COMPREHENSIVE Comments: PATIENT NOT FASTINGPERFORMED BY: [facility] [facility] [id number] (59349) ALT (SGPT) 18 [iU]/L (Normal) Range: 0-32 [...] Glucose, Serum 87 mg/dL (Normal) Range: 65-99 29-Wtx-637256:56 CBC W/AUTO DIFF WBC (03625) Comments: PATIENT NOT FASTINGPERFORMED BY: [facility]CoR[facility] HealthCareXbtkmc29[address] [facility] [id number] Immature Grans (Abs) 0.0 {x10E3/uL} (Normal) Range: [...] Range: 3.4-10.8 :38 Prothrombin Time w/INR Comments: [facility] [address]wx[address] [place], [address] INR 2.0 (Normal) PROTIME 22.0 s (Abnormal) Range: 11.7-14.9 16-Buf-613001:21 Prothrombin Time w/INR Comments: [facility] [address]pt[address]uky[address] [place], [address] INR 2.5 (Normal) PROTIME 26.0 s (Abnormal) Range: 11.7-14.9 :12 Lipid Profile Comments: Order Date: 12/04/16Order Info: 0788-1 - *Hepatic Function PanelOrder Info: 49312-2 - *Lipid Profile CC PCPComments: 12 hours fasting, may have water.[facility] Rhgkzlthwx9675 [address] [place], [place], [address]65[address](248) VLDL 21 mg/dL (Normal) Range: 5-40 LDL [...] Info: 0788-1 - *Hepatic Function PanelOrder Info: 61625-3 - *Lipid Profile CC PCPComments: 12 hours fasting, may have water.[facility] Strwhcdbtf6367 [address] [place], [place], [address] D BILI 0.09 mg/dL (Normal) Range: 0.00-0.30 T BILI 0.50 mg/dL (Normal) Range: 0.20-1.00 ALT 21 U/L (Normal) Range: 12-78 ALK P 78 U/L (Normal) Range: 45-117 AST 16 U/L (Normal) Range: 15-37 GLOB 3.1 g/dL (Normal) Range: 2.2-4.2 ALB 3.5 g/dL (Normal) Range: 3.4-5.0 Comments: Please note revised Albumin AND Globulin reference rangeeffective 2017. T PROT 6.6 g/dL (Normal) Range: 6.4-8.2 22-Cgi-878885:39 Prothrombin Time w/INR Comments: [facility] [address] [place], [place], [address] INR 2.4 (Normal) PROTIME 24.9 s (Abnormal) Range: 11.7-14.9 :43 Prothrombin Time w/INR Comments: [facility] [address] [place], [place], [id number] INR 2.2 (Normal) PROTIME 23.9 s (Abnormal) Range: 11.7-14.9 :22 CBC W/Diff, Automated Comments: [facility] [address] [place], [place], [address] ; OV 9/5 Absolute Lymph 2.11 {X10_3/ul} [...] Range: 4.4-11.0 09-Apr-20179:22 Comprehensive Metabolic Profil Comments: [facility] Xnflvtnpjt6478 [place], [address] GAP 7 (Normal) Range: 5-15 CO2 33.0 [...] 70-110 :22 Thyroid Stim Hormone (TSH) Comments: [facility] Zztlbtwfjl[address] [place], [place], [address] TSH 3.52 {uIU/mL} (Normal) Range: 0.358-3.74 97-Rcn-247789:37 Prothrombin Time w/INR Comments: [facility] [address] [place], [address] INR 2.1 (Normal) PROTIME 22.4 s (Abnormal) Range: 11.7-14.9 16-Wsh-950900:12 Prothrombin Time w/INR Comments: PT ORDER IS AND T4 IS [facility] I[address]sfjrzqa07[address] [place], [place], [phone] INR 2.1 (Normal) PROTIME 23.1 s (Abnormal) Range: 11.7-14.9 50-Hto-994255:11 T4 Total, Thyroxin Comments: Order Date: 02/19/17Order Info: 3026-2 - *T4 (Total)Comments: Reason:Order Info: 3016-3 - *[facility] Epokcrwatz32[address] [place], [place], [address] T4 THYROXIN 7.2 ug/dL (Normal) Range: 4.8-13.9 43-Fml-346795:11 Thyroid Stim Hormone (TSH) Comments: Order Date: 02/19/17Order Info: 3026-2 - *T4 (Total)Comments: Reason:Order Info: 3016-3 - *[facility] Nyrbthwflz8125 [address] [place], [address] TSH 1.56 {uIU/mL} (Normal) Range: 0.358-3.74 :37 Prothrombin Time w/INR Comments: [facility] Xsrduiddbl0114 [place], [address] INR 1.9 (Normal) PROTIME 21.4 s (Abnormal) Range: 11.7-14.9 4-Crr-684405:50 Prothrombin Time w/INR Comments: [facility] Laepdrqfgw[address] [place], [address] INR 2.0 (Normal) PROTIME 21.6 s (Abnormal) Range: 11.7-14.9 44-Pmh-920885:37 Prothrombin Time w/INR Comments: [facility] Osgicypdjk0860 [place], [address] INR 2.5 (Normal) PROTIME 25.6 s (Abnormal) Range: 11.7-14.9 91-Edz-685093:18 Prothrombin Time w/INR Comments: [facility] Qfrgugqmhw0800 [place], [address] INR 2.1 (Normal) PROTIME 22.5 s (Abnormal) Range: 11.7-14.9 23-Ehh-048030:17 Lipid Profile Comments: Order Date: 06/02/16Order Info: 0788- 1 - *Hepatic Function PanelDR.JACKSON BROWNEICHELLE LIPID LIVEROrder Date: 06/02/16Order Info: [id number] - *Lipid Profile CC PCPComments: 12 hours fasting, may have mary lalaD[facility] Ibrtqjhein8850 [place], [address] VLDL 31 mg/dL (Normal) Range: 5-40 LDL [...] 200-240 mg/dL Borderline >240 mg/dL High Risk 77-Ozl-863412:17 Liver Profile Comments: Order Date: 06/02/16Order Info: 0788- 1 - *Hepatic Function PanelDR.JACKSON PTMICHELLE LIPID LIVEROrder Date: 06/02/16Order Info: [id number] - *Lipid Profile CC PCPComments: 12 hours fasting, may have mary lalaDiley [facility] Cjpngzswvo7668 [place], [address] D BILI 0.09 mg/dL (Normal) Range: 0.00-0.30 T BILI 0.50 mg/dL (Normal) Range: 0.20-1.00 ALT 28 U/L (Normal) Range: 12-78 ALK P 93 U/L (Normal) Range: 45-117 AST 21 U/L (Normal) Range: 15-37 GLOB 3.4 g/dL (Normal) Range: 2.3-3.5 ALB 4.0 g/dL (Normal) Range: 3.4-5.0 T PROT 7.4 g/dL (Normal) Range: 6.4-8.2 8-Zck-919128:32 Prothrombin Time w/INR Comments: [facility] Xhlegqljzl7054 [place], [address] ; jackson manages INR 1.8 (Normal) PROTIME 20.2 s (Abnormal) Range: 11.7-14.9 84-Lpt-279192:09 Prothrombin Time w/INR Comments: [facility] Wanmzadgnr5690 [place], [address] ; another doc INR 2.1 (Normal) PROTIME 23.1 s (Abnormal) Range: 11.7-14.9 88-Icd-787615:10 Metabolic Panel, Comprehensive Comments: today; PATIENT NOT FASTINGPERFORMED BY: [facility] Cwowpd1759 Trevor [place] [id number] ([id number]) ALT (SGPT) 16 [iU]/L (Normal) Range: 0-32 [...] Glucose, Serum 89 mg/dL (Normal) Range: 65-99 56-Vxk-714729:26 Prothrombin Time w/INR Comments: [facility] Oogwdqueix9572 [address] [place], [place], [address] INR 2.2 (Normal) PROTIME 23.7 s (Abnormal) Range: 11.7-14.9 22-Ohd-302584:52 CBC-Complete Blood Cnt No Diff Comments: [facility] [address] [place], [address] ; sibilia MPV 10.8 fL [...] Range: 4.4-11.0 :58 Prothrombin Time w/INR Comments: [facility] Hxfcczqooq18[address] [place], [place], [address] INR 2.0 (Normal) PROTIME 22.4 s (Abnormal) Range: 11.7-14.9 31-Ras-723710:49 Prothrombin Time w/INR Comments: [facility] [address]rqfiihumc[address] [place], [address] INR 2.0 (Normal) PROTIME 22.3 s (Abnormal) Range: 11.7-14.9 54-Lul-779809:54 CBC WITH MANUAL DIFF (09407) Comments: PATIENT NOT FASTINGPERFORMED BY: CB [facility] Xbavus[address] [facility] [id number] Immature Grans (Abs) 0.0 {x10E3/uL} (Normal) Range: [...] 3.77-5.28 WBC 6.2 {x10E3/uL} (Normal) Range: 3.4-10.8 23-Fxy-665765:54 Metabolic Panel, Comprehensive Comments: PATIENT NOT FASTINGPERFORMED BY: [facility] [facility] [id number] (30821) ALT (SGPT) 18 [iU]/L (Normal) Range: 0-32 [...] Glucose, Serum 86 mg/dL (Normal) Range: 65-99 82-Pez-647387:54 TSH (66625) Comments: PATIENT NOT FASTINGPERFORMED BY: [facility]CoR[facility] HealthCareQjtomg3674 [facility] [id number] TSH 2.890 {uIU/mL} (Normal) Range: 0.450-4.500 68-Jbl-194718:23 Prothrombin Time w/INR Comments: [facility] Gvgqqpqqmq7076 [address] [place], [place], [address] ; managed by cardio INR 2.6 (Normal) PROTIME 27.4 s (Abnormal) Range: 11.7-14.9 50-Prm-35311:54 Prothrombin Time w/INR Comments: [facility] Vlxxhpwnnv8594 [address] [place], [place], [address] ; another doc INR 2.0 (Normal) PROTIME 22.3 s (Abnormal) Range: 11.7-14.9 :53 Lipid Profile Comments: Order Date: 05/22/16 Order #: [id number] Ridge Medical Center Ciwqlyhygd7202 [address] [place], [place], [address] VLDL 21 mg/dL (Normal) Range: 5-40 LDL [...] Profile Comments: Order Date: 05/22/16 Order #: [id number] Ridge Medical Center Gcdjcyjgyc2629 [address] [place], [place], [address] D BILI < 0.05 mg/dL (Normal) Range: [...] Range: 6.4-8.2 :09 Prothrombin Time w/INR Comments: [facility] Qyspxsop[address] [place], [place], [address] INR 2.5 (Normal) PROTIME 26.3 s (Abnormal) Range: 11.7-14.9 :59 Prothrombin Time w/INR Comments: [facility] Fq[address]vd[address]is[address] [place], [place], [address] ; managed by cardio INR 2.9 (Normal) PROTIME 29.3 s (Abnormal) Range: 11.7-14.9 :05 Prothrombin Time w/INR Comments: [facility] X[address] [place], [address] INR 2.0 (Normal) PROTIME 22.3 s (Abnormal) Range: 11.7-14.9 76-Kpi-530573:11 Prothrombin Time w/INR Comments: [facility] I[address] [place], [place], [address] INR 2.7 (Normal) Comments: ADDENDA: managed by cardio PROTIME 27.7 s (Abnormal) Range: 11.7-14.9 :14 Prothrombin Time w/INR Comments: [facility] Vtq[address] [place], [place], [address] ; managed by Jackson INR 2.7 (Normal) PROTIME 28.1 s (Abnormal) Range: 11.7-14.9 :45 Prothrombin Time w/INR Comments: [facility] F[address] [place], [place], [address] ; managed by cardio INR 3.1 (Normal) PROTIME 31.3 s (Abnormal) Range: 11.7-14.9 :27 Prothrombin Time w/INR Comments: [facility] Mtqdv[address]nx[address] [place], [place], [address] ; managed by cardio INR 3.1 (Normal) PROTIME 31.1 s (Abnormal) Range: 11.7-14.9 :22 Prothrombin Time w/INR Comments: [facility] Fvjoytstwo[address] [place], [place], [address] INR 2.6 (Normal) PROTIME 27.4 s (Abnormal) Range: 11.7-14.9 16-Jan-20169:08 Prothrombin Time w/INR Comments: [facility] [address]xukq[address] [place], [place], [address] ; managed with Dr. paz INR 4.1 (Abnormal) Comments: CRITICAL VALUE REPEATED AND VERIFIED. CALLED TO [facility]01/16/16 1251 Elza Hinojosa.RESULTS READ BACK BY SAME . PROTIME 38.2 s (Abnormal) Range: 11.7-14.9 30-Akh-525199:11 Microscopic Examination Comments: PATIENT WAS FASTINGPERFORMED BY: [facility] [id number] Bacteria None seen (Normal) Mucus Threads Present (Normal) Epithelial Cells (non renal) 0-10 {/hpf} (Normal) Range: 0 - 10 RBC 11-30 {/hpf} (Abnormal) Range: 0 - 2 WBC 0-5 {/hpf} (Normal) Range: 0 - 5 67-Axc-789776:11 MICROALBUMIN: CREATININE RATIO Comments: PATIENT WAS FASTINGPERFORMED BY: [employer] [facility] [id number] (74296) AND (32512) Microalb/Creat Ratio 11.4 {mg/g_creat} (Normal) Range: 0.0-30.0 Microalbumin, Urine 12.1 ug/mL (Normal) Comments: Please note reference interval change Creatinine, Urine 106.3 mg/dL (Normal) Comments: Please note reference interval change 64-Lwu-946063:11 URINALYSIS (46005) Comments: PATIENT WAS FASTINGPERFORMED BY: [employer] [facility] [id number] Microscopic Examination See below: (Normal) Comments: Microscopic was indicated and was performed. Nitrite, Urine Negative (Normal) Urobilinogen,Semi-Qn 0.2 mg/dL (Normal) Range: 0.2-1.0 Bilirubin Negative (Normal) Occult Blood 2+ (Abnormal) Ketones Negative (Normal) Glucose Negative (Normal) Protein Negative (Normal) WBC Esterase Negative (Normal) Appearance Clear (Normal) Urine-Color Yellow (Normal) pH 7.0 (Normal) Range: 5.0-7.5 Specific [place] 1.018 (Normal) Range: 1.005-1.030 07-Gfm-472295:11 Metabolic Panel, Comments: PATIENT WAS FASTINGPERFORMED BY: [facility] [facility] [id number] Information: [id number], [id number] Comprehensive (39592) ALT (SGPT) 14 [iU]/L (Normal) Range: 0-32 [...] Glucose, Serum 91 mg/dL (Normal) Range: 65-99 43-Inr-640033:11 TSH (39746) Comments: PATIENT WAS FASTINGPERFORMED BY: [facility] Jzeirb[address] [facility] [id number] TSH 2.260 {uIU/mL} (Normal) Range: 0.450-4.500 :17 Prothrombin Time w/INR Comments: [facility] [address] [place], [place], [address] INR 2.8 (Normal) PROTIME 28.4 s (Abnormal) Range: 11.7-14.9 :40 Lipid Profile Comments: [facility] [address]up[address] [place], [place], [address] VLDL 22 mg/dL (Normal) Range: 5-40 LDL [...] mg/dL High Risk :40 Liver Profile Comments: [facility] [address] [place], [place], [address] D BILI 0.10 mg/dL (Normal) Range: 0.00-0.30 T BILI 0.60 mg/dL (Normal) Range: 0.20-1.00 ALT 26 U/L (Normal) Range: 12-78 ALK P 86 U/L (Normal) Range: 50-136 AST 20 U/L (Normal) Range: 15-37 GLOB 3.4 g/dL (Normal) Range: 2.3-3.5 ALB 3.9 g/dL (Normal) Range: 3.4-5.0 T PROT 7.3 g/dL (Normal) Range: 6.4-8.2 :26 Prothrombin Time w/INR Comments: [facility] Zimq[address]lb[address] [place], [place], [address] INR 2.6 (Normal) Comments: ADDENDA: handled by cardio PROTIME 27.3 s (Abnormal) Range: 11.7-14.9 :40 Prothrombin Time w/INR Comments: [facility] [address] [place], [address] INR 2.4 (Normal) PROTIME 26.4 s (Abnormal) Range: 11.7-14.9 4-Oed-368046:03 Prothrombin Time w/INR Comments: [facility] [address]xljvmd[address] [place], [address] ; per pop up in EMR cardio manages INR INR 2.2 (Normal) PROTIME 24.5 s (Abnormal) Range: 11.7-14.9 28-Uyx-105936:51 Prothrombin Time w/INR Comments: [place] [address] [address] [place], [address] INR 1.6 (Normal) PROTIME 19.0 s (Abnormal) Range: 11.7-14.9 Comments: ADDENDA: managed by cardio :33 Prothrombin Time w/INR Comments: [facility] Evaaqwszdt7[address] [place], [address] ; handled by cardio INR 2.1 (Normal) PROTIME 24.0 s (Abnormal) Range: 11.7-14.9 53-Mcs-609740:02 Prothrombin Time w/INR Comments: [place] [address] [place], [address] INR 2.2 (Normal) PROTIME 24.1 s (Abnormal) Range: 11.7-14.9 72-Jhm-327100:37 Prothrombin Time w/INR Comments: [facility] [address]we[address] [place], [address] INR 2.5 (Normal) PROTIME 26.7 s (Abnormal) Range: 11.7-14.9 :44 Prothrombin Time w/INR Comments: [place] [address] [address] [place], [place], [address] INR 2.2 (Normal) PROTIME 24.6 s (Abnormal) Range: 11.7-14.9 02-Xbg-639438:15 Prothrombin Time w/INR Comments: [facility] Ypjrbeccrc1272 [address] [place], [place], [address] INR 1.6 (Normal) PROTIME 19.4 s (Abnormal) Range: 11.7-14.9 :36 Prothrombin Time w/INR Comments: [facility] [address]vomqbsujl39[address] [place], [place], [address] INR 1.2 (Normal) PROTIME 15.3 s (Abnormal) Range: 11.7-14.9 :02 Prothrombin Time w/INR Comments: [address] [place], [place], [address] INR 2.7 (Normal) PROTIME 29.0 s (Abnormal) Range: 11.7-14.9 :47 Lipid Profile Comments: [facility] [address] [place], [place], [address] VLDL 20 mg/dL (Normal) Range: 5-40 LDL [...] mg/dL High Risk :47 Liver Profile Comments: [facility] Htqlrwsbly7[address] [place], [place], [address] D BILI 0.09 mg/dL (Normal) Range: 0.00-0.30 T BILI 0.40 mg/dL (Normal) Range: 0.20-1.00 ALT 26 U/L (Normal) Range: 12-78 ALK P 86 U/L (Normal) Range: 50-136 AST 24 U/L (Normal) Range: 15-37 GLOB 3.3 g/dL (Normal) Range: 2.3-3.5 ALB 4.0 g/dL (Normal) Range: 3.4-5.0 T PROT 7.3 g/dL (Normal) Range: 6.4-8.2 0-Qot-402837:11 CBC, Platelets & Auto Diff Comments: PATIENT NOT FASTINGPERFORMED BY: [facility] Iyybza[address] [facility] [id number] Information: [id number] (03438) Immature Grans (Abs) 0.0 {x10E3/uL} (Normal) Range: [...] 3.77-5.28 WBC 6.2 {x10E3/uL} (Normal) Range: 3.4-10.8 2-Dbk-922148:11 CALCIFEDIOL (19419) Comments: PATIENT NOT FASTINGPERFORMED BY: [facility] [facility] [id number] Vitamin D, 25-Hydroxy 38.9 ng/mL (Normal) Range: 30.0-100.0 Comments: Vitamin D deficiency has been defined by the [place] ofMercy Health Kings Mills Hospitalcine and an Endocrine Society practice guideline as alevel of serum 25-OH vitamin D less than 20 ng/mL (1,2).The Endocrine Society went on to further define vitamin Dinsufficiency as a level between 21 and 29 ng/mL (2).1. IOM ([place] of Medicine). 2010. Dietary reference intakes for calcium and D. [place]: The National Academies Press.2. Roberto MF, Brody OCHOA, Maribell CADENA, et al. Evaluation, treatment, and prevention of vitamin D deficiency: an Endocrine Society clinical practice guideline. JCEM. 2010; 96(7):1911-30. 4-Rxo-805680:11 VITAMIN B12 AND FOLATES Comments: PATIENT NOT FASTINGPERFORMED BY: [facility] [facility] [id number] (51384) Folate (Folic Acid), Serum 10.4 ng/mL (Normal) Comments: A serum folate concentration of less than 3.1 ng/mL isconsidered to represent clinical deficiency. Vitamin B12 1651 pg/mL (Abnormal) Range: 211-946 3-Elv-364711:11 Metabolic Panel, Comprehensive Comments: PATIENT NOT FASTINGPERFORMED BY: [facility] [facility] [id number] (31658) ALT (SGPT) 15 [iU]/L (Normal) Range: 0-32 [...] Range: 65-99 09-May-20159:53 Prothrombin Time w/INR Comments: [facility] Mdnedcbory9030 [place], [address] INR 1.9 (Normal) PROTIME 22.0 s (Abnormal) Range: 11.7-14.9 86-Ffh-528375:40 Prothrombin Time w/INR Comments: Test performed at:[facility] Cxttjeuapm5314 [facility] [place] [address] INR 1.3 (Normal) PROTIME 16.3 s (Abnormal) Range: 11.7-14.9 40-Ajj-264327:03 Prothrombin Time w/INR Comments: Test performed at:[facility] Bdivgtmdrr5491 [facility] [place] [address] INR 1.7 (Normal) PROTIME 20.4 s (Abnormal) Range: 11.7-14.9 3-Pqk-952659:26 Prothrombin Time w/INR Comments: Test performed at:[facility] Nrxpwcgzpj5002 [facility] [place] [address] INR 1.2 (Normal) Comments: ADDENDA: managed by dr paz PROTIME 15.8 s (Abnormal) Range: 11.7-14.9 12-Kyl-183057:28 Prothrombin Time w/INR Comments: Test performed at:[facility] Hbflmn[address] [place] [address] INR 1.2 (Normal) PROTIME 15.8 s (Abnormal) Range: 11.7-14.9 :54 Prothrombin Time w/INR Comments: Test performed at:[facility] [address] [place] [address] INR 2.5 (Normal) PROTIME 27.3 s (Abnormal) Range: 11.7-14.9 7-Zwx-139642:16 Prothrombin Time w/INR Comments: Test performed at:[facility] [address] [place] [address] INR 2.0 (Normal) PROTIME 23.2 s (Abnormal) Range: 11.7-14.9 67-Fwp-101710:29 Prothrombin Time w/INR Comments: Test performed at:[facility] [address] [place] [address] INR 2.8 (Normal) PROTIME 29.3 s (Abnormal) Range: 11.7-14.9 20-Gax-096881:06 Prothrombin Time w/INR Comments: Test performed at:[facility] [address] [place] [address] ; Dr Bella manages INR 2.1 (Normal) PROTIME 24.0 s (Abnormal) Range: 11.7-14.9 :45 Prothrombin Time w/INR Comments: Test performed at:[facility] [address] [place] [address] ; ordered by another INR 1.3 (Normal) PROTIME 16.5 s (Abnormal) Range: 11.7-14.9 :00 Prothrombin Time w/INR Comments: Test performed at:[facility] [address] [place], [place] [address] INR 0.9 (Normal) PROTIME 12.7 s (Normal) Range: 11.7-14.9 :05 Vitamin B12 and Folate Comments: PATIENT NOT FASTINGPERFORMED BY: [facility] HealthCareRyuvuf[address] [facility] [id number] Information: [id number] Folate (Folic Acid), 7.8 ng/mL (Normal) Comments: A serum folate concentration of less than 3.1 ng/mL isconsidered to represent clinical deficiency. Serum Vitamin B12 1883 pg/mL Range: 211-946 (Abnormal) : Vitamin D, 42.8 ng/mL (Normal) Comments: PATIENT NOT FASTINGPERFORMED BY: [facility] [facility] [id number] 05 25-Hydroxy Range: 30.0-100.0 Comments: Vitamin D deficiency has been defined by the [place] ofMedicine and an Endocrine Society practice guideline as alevel of serum 25-OH vitamin D less than 20 ng/mL (1,2).The Endocrine Society went on to further define vitamin Dinsufficiency as a level between 21 and 29 ng/mL (2).1. IOM ([place] of Medicine). 2010. Dietary reference intakes for calcium and D. [place]: The National Academies Press.2. Roberto MF, Brody [place], Maribell CADENA, et al. Evaluation, treatment, and prevention of vitamin D deficiency: an Endocrine Society clinical practice guideline. JCEM. 2010; 96(7):1911-30. 77-Jvr-002594:04 CBC W/Diff, Automated Comments: Test performed at:[facility] [address]ftmaawr[address] [place], [place] [id number] Absolute Lymph 2.41 {X10_3/ul} (Normal) Range: 0.83-4.51 [...] 4.2-5.4 WBC 6.5 K/mm3 (Normal) Range: 4.4-11.0 [id number] Basic Metabolic Profile (BMP) Comments: Test performed at:[facility] [id number] [place] [id number] GAP 4 (Abnormal) Range: 5-15 CO2 33.0 mmol/L (Abnormal) Range: 21.0-32.0 CL 103 mmol/L (Normal) Range: 98-107 K 4.8 mmol/L (Normal) Range: 3.5-5.1 NA 140 mmol/L (Normal) Range: 136-145 CA 8.8 mg/dL (Normal) Range: 8.5-10.1 BUN/CRE 25.8 {RATIO} (Abnormal) Range: 10-20 CREAT,SERUM 1.2 mg/dL (Abnormal) Range: 0.6-1.0 BUN 31 mg/dL (Abnormal) Range: 7-18 GLU 108 mg/dL (Normal) Range: 70-110 [id number] Basic Metabolic Profile (BMP) Comments: Test performed at:[facility] [id number] [place] [address] GAP 4 (Abnormal) Range: 5-15 CO2 28.0 mmol/L (Normal) Range: 21.0-32.0 CL 106 mmol/L (Normal) Range: 98-107 K 4.3 mmol/L (Normal) Range: 3.5-5.1 NA 138 mmol/L (Normal) Range: 136-145 CA 8.8 mg/dL (Normal) Range: 8.5-10.1 BUN/CRE 26.0 {RATIO} (Abnormal) Range: 10-20 CREAT,SERUM 1.0 mg/dL (Normal) Range: 0.6-1.0 BUN 26 mg/dL (Abnormal) Range: 7-18 GLU 93 mg/dL (Normal) Range: 70-110 [id number] CBC W/Diff, Automated Comments: Test performed at:[facility] [id number] [place] [address] Absolute Lymph 2.60 {X10_3/ul} (Normal) [...] 4.2-5.4 WBC 6.5 K/mm3 (Normal) Range: 4.4-11.0 18-Ikq-069114:07 Lipid Profile Comments: Specimen slightly hemolyzed. Results may be affected.Test performed at:[facility] [address] [place] [address] VLDL 19 mg/dL (Normal) Range: 5-40 LDL [...] 200-240 mg/dL Borderline >240 mg/dL High Risk 19-Kii-967953:07 Liver Profile Comments: Specimen slightly hemolyzed. Results may be affected.Test performed at:[facility] [address] [facility]. [place], [place] [address] D BILI < 0.05 mg/dL (Normal) Range: [...] CHOL 226 mg/dL (Abnormal) Comments: <200 mg/dL Qbuqeobjs464-218 mg/dL Borderline>240 mg/dL High Risk :47 LIVER [...] :47 TSH 3.05 {uIU/mL} (Normal) Range: 0.358-3.74 50-Smr-951016:00 LORNA CULTURE-OTHER (60407) Comments: PATIENT NOT FASTINGPERFORMED BY: [facility] [facility] [address] [facility] [id number] Information: SRC:THRT [id number] Result 1 RRF (Normal) Comments: Routine respiratory jesus Upper Respiratory Culture Final report (Normal) 93-Aro-25392:21 Rapid Strep Test, Office (31171) Rapid Strep Test, Office Negative (Normal) 63-Nwa-20478:00 BILAT SCRN DIGITAL & CAD Radiology Report [...] Jones M.D.January 04, 2013 at 10:41:52 AM [id number] Signed GP/GP If you are the referring physician and would like to consult with theradiologist who provided this interpretation, please contact Ne Huang at [phone]. If this radiologist is unavailable, youwill be directed to another radiologist to assist. If you are a patient with a question regarding this report, pleasecontactyour referring physician directly. Professional Interpretation Provided By: [employer], Phone , These documents contain legally protected [...] Function Panel Comments: PATIENT WAS FASTINGPERFORMED BY: [facility] [facility] [id number] Information: [id number] (7) ALT (SGPT) 23 [iU]/L (Normal) Range: 0-32 AST (SGOT) 21 [iU]/L (Normal) Range: 0-40 Alkaline Phosphatase, S 74 [iU]/L (Normal) Range: 25-165 Bilirubin, Direct 0.10 mg/dL Range: 0.00-0.40 (Normal) Albumin, Serum 4.3 g/dL (Normal) Range: 3.5-4.8 Bilirubin, Total 0.3 mg/dL (Normal) Range: 0.0-1.2 Protein, Total, Serum 6.7 g/dL (Normal) Range: 6.0-8.5 Written Authorization WAR (Normal) Comments: PATIENT WAS FASTINGPERFORMED BY: [facility] [facility] [id number] :19 Comments: Written Authorization Received.Authorization received from DR BRO [id number] by Rachelle Porter :19 Metabolic Panel, Comprehensive Comments: PATIENT WAS FASTINGPERFORMED BY: [facility] [facility] [id number] (13473) ALT (SGPT) 22 [iU]/L (Normal) Range: 0-32 [...] Glucose, Serum 89 mg/dL (Normal) Range: 65-99 9-Usu-039580:19 CBC with manual diff Comments: PATIENT WAS FASTINGPERFORMED BY: [facility] HealthCareVbumzr[address] [facility] [address] [facility] [id number] Information: [id number] (80119) Immature Grans (Abs) 0.0 {x10E3/uL} (Normal) Range: [...] 3.77-5.28 WBC 4.6 {x10E3/uL} (Normal) Range: 4.0-10.5 3-Fin-984395:19 Lipid Panel (10313) Comments: PATIENT WAS FASTINGPERFORMED BY: [employer] [facility] [id number] LDL/HDL Ratio 1.3 {ratio_units} (Normal) Range: 0.0-3.2 Cholesterol, Total 153 mg/dL (Normal) Range: 100-199 HDL Cholesterol 60 mg/dL (Normal) Comments: According to ATP-III Guidelines, HDL-C >59 mg/dL is considered anegative risk factor for CHD. LDL Cholesterol Calc 80 mg/dL (Normal) Range: 0-99 Triglycerides 65 mg/dL (Normal) Range: 0-149 VLDL Cholesterol Hector 13 mg/dL (Normal) Range: 5-40 2-Bfl-571981:19 TSH (10193) Comments: PATIENT WAS FASTINGPERFORMED BY: [employer] [facility] [id number] TSH 2.650 {uIU/mL} (Normal) Range: 0.450-4.500 67-Ref-828276:14 Urinalysis, Office (94890) UA - BILIRUBIN Negative (Normal) UA - BLOOD Hemolyzed Small (Normal) UA - GLUCOSE Negative (Normal) UA - KETONES Negative mg/dL (Normal) UA - LEUKOCYTE ESTERASE Negative (Normal) UA - NITRITE Negative (Normal) UA - PH 7.0 (Normal) UA - PROTEIN Negative mg/dL (Normal) UA - SPECIFIC GRAVITY 1.015 (Normal) URINE UROBILINGN REYNA TIMED Normal mg/dL (Normal) 93-Wis-801839:10 TSH (THYROID STIMULATING Comments: PATIENT WAS FASTINGPERFORMED BY: [employer] [facility] [id number] HORMONE) (12860) TSH 2.500 {uIU/mL} (Normal) Range: 0.450-4.500 81-Gvr-122960:10 CALCIFEDIOL (02117) Comments: PATIENT WAS FASTINGPERFORMED BY: [facility] [place] [id number] Vitamin D, 25-Hydroxy 48.1 ng/mL (Normal) Range: 30.0-100.0 Comments: Vitamin D deficiency has been defined by the [place] ofMedicine and an Endocrine Society practice guideline as alevel of serum 25-OH vitamin D less than 20 ng/mL (1,2).The Endocrine Society went on to further define vitamin Dinsufficiency as a level between 21 and 29 ng/mL (2).1. IOM ([place] of Medicine). 2010. Dietary reference intakes for calcium and D. [place]: The National Academies Press.2. Roberto MF, Brody [place], Maribell CADENA, et al. Evaluation, treatment, and prevention of vitamin D deficiency: an Endocrine Society clinical practice guideline. JCEM. 2010; 96(7):1911-30. 84-Hlq-302682:10 Lipid Panel (12405) Comments: PATIENT WAS FASTINGPERFORMED BY: [facility] [place] [id number] LDL/HDL Ratio 2.3 {ratio_units} (Normal) Range: 0.0-3.2 LDL Cholesterol Calc 117 mg/dL (Abnormal) Range: 0-99 VLDL Cholesterol Hector 16 mg/dL (Normal) Range: 5-40 HDL Cholesterol 52 mg/dL (Normal) Comments: According to ATP-III Guidelines, HDL-C >59 mg/dL is considered anegative risk factor for CHD. Triglycerides 78 mg/dL (Normal) Range: 0-149 Cholesterol, Total 185 mg/dL (Normal) Range: 100-199 69-Epz-703795:10 HEPATIC FUNCTION PANEL Comments: PATIENT WAS FASTINGPERFORMED BY: [facility] [facility] [id number] Information: [id number] (87024) ALT (SGPT) 21 [iU]/L (Normal) Range: 0-40 AST (SGOT) 20 [iU]/L (Normal) Range: 0-40 Alkaline Phosphatase, S 75 [iU]/L (Normal) Range: 25-165 Bilirubin, Direct 0.09 mg/dL (Normal) Range: 0.00-0.40 Albumin, Serum 4.0 g/dL (Normal) Range: 3.5-4.8 Bilirubin, Total 0.3 mg/dL (Normal) Range: 0.0-1.2 Protein, Total, Serum 6.5 g/dL (Normal) Range: 6.0-8.5 :41 TSH (51914) Comments: PATIENT NOT FASTINGPERFORMED BY: [facility] CorpTsaile Health CenterBpnfig[address] [place] [address] [id number] Information: [id number] TSH 3.750 {uIU/mL} (Normal) Range: 0.450-4.500 :39 Prothrombin Time (PT) Comments: PERFORMED BY: [employer] [id number] Prothrombin Time 39.0 {sec} (Abnormal) Range: 8.7-11.5 INR 3.6 (Abnormal) Range: 0.8-1.2 Comments: Client Requested Flag Reference interval is for non- anticoagulated patients. . Suggested INR therapeutic ra nge for Vitamin K antagonist therapy: Standard Dose (moderate intensity therapeutic range): 2.0 - 3.0 Higher intensity therapeutic range 2.5 - 3.5 :26 PT (PROTHROMBIN TIME) Comments: PATIENT NOT FASTINGPERFORMED BY: [facility] [place] [id number] [facility] [id number] Information: [id number] CC:[id number] (36042) Prothrombin Time 54.3 {sec} (Abnormal) Range: 8.7-11.5 [...] (Activated Partial Comments: PATIENT NOT FASTINGPERFORMED BY: [place] [address] [facility] [id number] Thromboplastin Time) (78410) aPTT 39 {sec} (Abnormal) Range: 24-33 Comments: This test has not been validated for monitoring unfractionated heparintherapy. aPTT-based therapeutic ranges for unfractionated heparintherapy have not been established. For general guidelines onHeparin monitoring, refer to the [facility] Directory of Services. :51 PT (Prothrobim Time) Comments: PATIENT NOT FASTINGPERFORMED BY: [place] [address] [facility] [id number] Information: [id number] CC:[id number] (58004) Prothrombin Time 26.1 {sec} (Abnormal) Range: 8.7-11.5 INR 2.4 (Abnormal) Range: 0.8-1.2 Comments: Reference interval is for non-anticoagulated patients. . Suggested INR therapeutic range for Vitamin K anta gonist therapy: Standard Dose (moderate intensity therapeutic range): 2.0 - 3.0 Higher intensity therapeutic range 2.5 - 3.5 :43 HEPATIC FUNCTION PANEL Comments: PATIENT NOT FASTINGPERFORMED BY: [facility] [facility] [facility] [id number] Information: [id number] (68261) ALT (SGPT) 25 [iU]/L (Normal) Range: 0-40 AST (SGOT) 19 [iU]/L (Normal) Range: 0-40 Alkaline Phosphatase, S 73 [iU]/L (Normal) Range: 25-165 Albumin, Serum 4.4 g/dL (Normal) Range: 3.5-4.8 Bilirubin, Direct 0.09 mg/dL (Normal) Range: 0.00-0.40 Bilirubin, Total 0.3 mg/dL (Normal) Range: 0.0-1.2 Protein, Total, Serum 6.4 g/dL (Normal) Range: 6.0-8.5 :18 Lipid Panel (93406) Comments: PATIENT NOT FASTINGPERFORMED BY: [facility] [place] [id number] LDL/HDL Ratio 1.3 {ratio_units} (Normal) Range: 0.0-3.2 [...] FUNCTION PANEL Comments: PATIENT NOT FASTINGPERFORMED BY: [facility] [facility] [id number] Information: [id number] (77200) ALT (SGPT) 60 [iU]/L (Abnormal) Range: 0-40 Alkaline Phosphatase, S 66 [iU]/L (Normal) Range: 25-165 AST (SGOT) 43 [iU]/L (Abnormal) Range: 0-40 Albumin, Serum 4.3 g/dL (Normal) Range: 3.5-4.8 Bilirubin, Direct 0.10 mg/dL (Normal) Range: 0.00-0.40 Bilirubin, Total 0.3 mg/dL (Normal) Range: 0.0-1.2 Protein, Total, Serum 6.7 g/dL (Normal) Range: 6.0-8.5 :18 CALCIFEDIOL (90074) Comments: PATIENT NOT FASTINGPERFORMED BY: [facility] [facility] [facility] [id number] Vitamin D, 25-Hydroxy 57.3 ng/mL (Normal) Range: 32.0-100.0 Comments: Recent studies consider the lower limit of 32.0 ng/mL to be athreshold for optimal health.Baljit HOWELL. J Nutr. 2004;135(2):317-22. 6-Qsc-162882:49 Urinalysis, Office (93517) UA - BILIRUBIN Negative (Normal) UA - BLOOD Hemolyzed Moderate (Normal) UA - GLUCOSE Negative (Normal) UA - KETONES Negative mg/dL (Normal) UA - LEUKOCYTE ESTERASE Negative (Normal) UA - NITRITE Negative (Normal) UA - PH 7.5 (Normal) UA - PROTEIN Negative mg/dL (Normal) UA - SPECIFIC GRAVITY 1.015 (Normal) URINE UROBILINGN REYNA TIMED Normal mg/dL (Normal) 50-Msp-307586:38 Urinalysis, Office (78600) UA - BILIRUBIN Negative (Normal) UA - BLOOD Hemolyzed Small (Normal) UA - GLUCOSE Negative (Normal) UA - KETONES Negative mg/dL (Normal) UA - LEUKOCYTE ESTERASE Negative (Normal) UA - NITRITE Negative (Normal) UA - PH 7.5 (Normal) UA - PROTEIN Negative mg/dL (Normal) UA - SPECIFIC GRAVITY 1.015 (Normal) URINE UROBILINGN REYNA TIMED 2 mg/dL (Normal) 35-Xnp-33276:47 Metabolic Panel, Basic Comments: PATIENT NOT FASTINGPERFORMED BY: [facility] HealthCareTdwimg[address] [facility] [address] [id number] Information: [id number] (72052) Calcium, Serum 9.6 mg/dL (Normal) Range: 8.6-10.2 [...] CULTURE-REYNA COL Comments: PATIENT NOT FASTINGPERFORMED BY: [employer]70 [facility]kitU[facility]L [facility] [id number] Information: SRC:UR [id number] COUNT (52706) Result 1 NG36 (Normal) Comments: No growth in 36 - 48 hours. Urine Culture,Comprehensive Final report (Normal) :29 Urinalysis, Office (59185) UA - BILIRUBIN Negative (Normal) UA - BLOOD Non Hemolyzed Moderate (Normal) UA - GLUCOSE Negative (Normal) UA - KETONES Negative mg/dL (Normal) UA - LEUKOCYTE ESTERASE Trace (Normal) UA - NITRITE Negative (Normal) UA - PH 6.0 (Normal) UA - PROTEIN Negative mg/dL (Normal) UA - SPECIFIC GRAVITY 1.020 (Normal) URINE UROBILINGN REYNA TIMED Normal mg/dL (Normal) 16-Fje-395820:44 Microscopic Examination Comments: PATIENT WAS FASTINGPERFORMED BY: [employer] [facility] [id number] Bacteria Few (Normal) Mucus Threads Present (Normal) Epithelial Cells (non renal) 0-10 {/hpf} (Normal) Range: 0 - 10 RBC 0-3 {/hpf} (Normal) Range: 0 - 3 WBC 0-5 {/hpf} (Normal) Range: 0 - 5 43-Qeo-133665:44 CALCIFIDIOL (39583) VIT D 25 Comments: PATIENT WAS FASTINGPERFORMED BY: [employer] Simsog2564 [facility] [id number] Vitamin D, 25-Hydroxy 28.6 ng/mL (Abnormal) Range: 32.0-100.0 Comments: Recent studies consider the lower limit of 32.0 ng/mL to be athreshold for optimal health.Baljit HOWELL. J Nutr. 2004;135(2):317-22. 15-Jkm-906617:44 Folate (63460) Comments: PATIENT WAS FASTINGPERFORMED BY: [facility] [facility] [place] [place] [id number] Folate (Folic Acid), Serum 12.2 ng/mL (Normal) Comments: Indeterminate: 2.2 - 3.0 Deficient: <2.2 72-Nhh-055019:44 VITAMIN B-12 (CYANOCOBALAMIN) Comments: PATIENT WAS FASTINGPERFORMED BY: [facility] [facility] [id number] (90915) Vitamin B12 351 pg/mL (Normal) Range: 211-946 75-Fdd-578644:44 SED RATE ERYTHROCYTE (04540) Comments: PATIENT WAS FASTINGPERFORMED BY: [facility] [facility] [address] [facility] [id number] Sedimentation Rate-Westergren 2 mm/h (Normal) Range: 0-30 48-Pkd-352845:44 RHEUMATOID FACTOR-QUANT (25577) Comments: PATIENT WAS FASTINGPERFORMED BY: [facility] [facility] [place] [place] [id number] RA Latex Turbid. 10.5 {IU/mL} (Normal) Range: 0.0-13.9 80-Sow-110209:44 C-REACTIVE PROTEIN (03979) Comments: PATIENT WAS FASTINGPERFORMED BY: [facility] [facility] [place] [id number] C-Reactive Protein, Quant 0.9 mg/L (Normal) Range: 0.0-4.9 03-Cft-871340:44 JOANNA (ANTINUCLEAR ANTIBODY) Comments: PATIENT WAS FASTINGPERFORMED BY: [facility] [facility] [id number] (15482) JOANNA Direct Negative (Normal) 22-Amg-377005:44 LIPID PANEL (71883) Comments: PATIENT WAS FASTINGPERFORMED BY: [facility] [facility] [place] [place] [id number] LDL Cholesterol Calc 140 mg/dL (Abnormal) Range: 0-99 LDL/HDL Ratio 1.8 {ratio_units} (Normal) Range: 0.0-3.2 HDL Cholesterol 77 mg/dL (Normal) Comments: According to ATP-III Guidelines, HDL-C >59 mg/dL is considered anegative risk factor for CHD. VLDL Cholesterol Hector 19 mg/dL (Normal) Range: 5-40 Triglycerides 97 mg/dL (Normal) Range: 0-149 Cholesterol, Total 236 mg/dL (Abnormal) Range: 100-199 :44 TSH (76075) Comments: PATIENT WAS FASTINGPERFORMED BY: [facility] CorpTsaile Health CenterSlmxdf[address] [facility] [id number] TSH 1.670 {uIU/mL} (Normal) Range: 0.450-4.500 :44 URINALYSIS, W/ MICRO (91877) Comments: PATIENT WAS FASTINGPERFORMED BY: [facility] [facility] [place] [id number] Microscopic Examination See below: (Normal) Bilirubin Negative (Normal) Ketones Negative (Normal) Nitrite, Urine Negative (Normal) Occult Blood 1+ (Abnormal) Urobilinogen,Semi-Qn 0.2 mg/dL (Normal) Range: 0.0-1.9 Glucose Negative (Normal) Protein Negative (Normal) Appearance Clear (Normal) pH 7.0 (Normal) Range: 5.0-7.5 Urine-Color Yellow (Normal) WBC Esterase Negative (Normal) Specific [place] 1.016 (Normal) Range: 1.005-1.030 :44 MICROALBUMIN: CREATININE RATIO Comments: PATIENT WAS FASTINGPERFORMED BY: [facility] CorpRut[facility] University Behavioral HealthCareDwkmiq[address] [facility] [id number] (53696) AND (53074) Microalb/Creat Ratio 2.8 {mg/g_creat} (Normal) Range: 0.0-30.0 Creatinine, Urine 61.0 mg/dL (Normal) Range: 15.0-278.0 Microalbumin, Urine 1.7 ug/mL (Normal) Range: 0.0-17.0 :44 METABOLIC PANEL, COMPREHENSIVE Comments: PATIENT WAS FASTINGPERFORMED BY: [facility] [facility] [address] [place] [id number] (02970) ALT (SGPT) 16 [iU]/L (Normal) Range: 0-40 [...] Glucose, Serum 92 mg/dL (Normal) Range: 65-99 07-Jqq-813528:44 CBC WITH MANUAL DIFF Comments: PATIENT WAS FASTINGPERFORMED BY: [facility]CoR[facility] HealthCareGfzikg[address] [facility] [id number] Information: [id number] (81851) Immature Grans (Abs) 0.0 {x10E3/uL} (Normal) Range: [...] 3.80-5.10 WBC 6.1 {x10E3/uL} (Normal) Range: 4.0-10.5 94-Wsi-444575:11 BILAT [facility] DIGITAL & CAD Radiology Report See Note (Normal) Comments: Exam Number: [id number] MAMMOGRAPHY - BILATERAL SCREENING INDICATION:Routine annual screening [...] of attaching a ResultCode to this exam.ADDENDUM: [id number] HPBI/MDS Reported By: ELEANOR ERNANDEZ M.D. 8-Ubl-715440:01 TSH (44422) Comments: PATIENT NOT FASTINGPERFORMED BY: [facility] Akobtb[address] [facility] [address] [id number] Information: [id number] TSH 0.474 {uIU/mL} (Normal) Range: 0.450-4.500 16-Apr-20108:21 Thin prep Pap (61705) Comments: of cuff, has had hysterectomy; Source.............VaginalLMP / Prev Treat...HystNo. of containers..01 CYTYC Thin Prep VialPATIENT NOT FASTINGPERFORMED BY: [facility] [address] [id number] Information: [id number] Note: PAPSMR (Normal) Comments: The Pap smear [...] hysterectomy.V72.31 ; Routine gynecological exami Davion Mosley [employer] (ASCP) 79-Pnv-596410:57 ABDOMEN/PELVIS W/WO CONTRAST Radiology Report See Note (Normal) Comments: Exam Number: [id number] CLINICAL:Hydronephrosis CT ABDOMEN AND PELVIS WITHOUT / [...] theright-sided hydronephrosis. Reported By: SAVANA AVELAR M.D. 0-Hqw-009482:44 Urinalysis, Office (23798) UA - LEUKOCYTE ESTERASE Negative (Normal) UA - NITRITE Negative (Normal) URINE UROBILINGN REYNA TIMED Normal mg/dL (Normal) UA - PROTEIN Negative mg/dL (Normal) UA - PH 6.5 (Normal) UA - BLOOD Hemolyzed Trace (Normal) UA - SPECIFIC GRAVITY 1.010 (Normal) UA - KETONES Negative mg/dL (Normal) UA - BILIRUBIN Negative (Normal) UA - GLUCOSE Negative (Normal) 87-Bce-063171:45 KIDNEY (HP) Radiology Report See Note (Normal) Comments: Exam Number: [id number] CLINICAL:The patient is a 69-year-old female who [...] no hydronephrosis Reported By: ELEANOR ERNANDEZ M.D. 93-Jnw-669970:14 BMP BUN/CRE 17.8 {RATIO} (Normal) Range: 10-20 [...] (Normal) GLU 90 mg/dL (Normal) Range: 70-110 53-Ohf-399561:52 Iron and TIBC Comments: PATIENT NOT FASTINGPERFORMED BY: [employer] Ugqlfj[address] [facility] [id number] Iron Saturation 21 % (Normal) Range: 15-55 Iron, Serum 55 ug/dL (Normal) Range: 35-155 UIBC 202 ug/dL (Normal) Range: 150-375 Iron Bind.Cap.(TIBC) 257 ug/dL (Normal) Range: 250-450 14-Oia-797693:52 Renal function Panel (01986) Comments: PATIENT NOT FASTINGPERFORMED BY: [employer] [address]zy[address] [facility] [id number] Albumin, Serum 3.7 g/dL (Normal) Range: 3.5-4.8 [...] Glucose, Serum 91 mg/dL (Normal) Range: 65-99 75-Jpb-868379:52 Ferritin (47479) Comments: PATIENT NOT FASTINGPERFORMED BY: [facility] K[address]zzw[address] [facility] [id number] Ferritin, Serum 338 ng/mL (Abnormal) Range: 13-150 :52 CBC with manual diff Comments: PATIENT NOT FASTINGPERFORMED BY: [place] [address] [facility] [id number] Information: [id number] (12222) Baso (Absolute) 0.0 {x10E3/uL} (Normal) Range: 0.0-0.2 [...] 3.80-5.10 WBC 7.9 {x10E3/uL} (Normal) Range: 4.0-10.5 51-Kqg-003446:20 TSH (04818) Comments: PATIENT NOT FASTINGPERFORMED BY: [facility] [facility] [address] [place] [id number] TSH 0.830 {uIU/mL} (Normal) Range: 0.450-4.500 58-Mcs-354993:20 CBC with manual diff Comments: PATIENT NOT FASTINGPERFORMED BY: [facility]CoAsh[facility] [address] [facility] [id number] Information: [id number] (01877) Hematology Comments: Note: (Normal) Comments: Verified by [...] 3.80-5.10 WBC 21.6 {x10E3/uL} (Abnormal) Range: 4.0-10.5 05-Khz-521890:58 Serum Protein Comments: PATIENT NOT FASTINGPERFORMED BY: [facility] HealthCareTdmmim[address] [facility] [id number] Information: ADD [id number] NO DRAW FEE Electrophoresis (SPEP) (20014) A/G Ratio 1.6 (Normal) Range: 0.7-2.0 Please note: SPRCS (Normal) Comments: Protein electrophoresis scan will follow via computer, mail, orcourier delivery. Hfask-2-Xolzrvrl 0.2 g/dL (Normal) Range: 0.1-0.4 Tpfcz-7-Fkmhyosd 0.6 g/dL (Normal) Range: 0.4-1.2 Beta Globulin 0.9 g/dL (Normal) Range: 0.6-1.3 Gamma Globulin 0.9 g/dL (Normal) Range: 0.5-1.6 Globulin, Total 2.6 g/dL (Normal) Range: 2.0-4.5 M-Slim Not Observed g/dL (Normal) Albumin 4.2 g/dL (Normal) Range: 3.2-5.6 Protein, Total, Serum 6.8 g/dL (Normal) Range: 6.0-8.5 92-Wku-892375:58 VITAMIN B-12 (CYANOCOBALAMIN) Comments: PATIENT NOT FASTINGPERFORMED BY: [facility] Xhyzto[address] [facility] [id number] (49862) Vitamin B12 300 pg/mL (Normal) Range: 211-911 85-Yvd-309811:58 SED RATE ERYTHROCYTE (03247) Comments: PATIENT NOT FASTINGPERFORMED BY: [facility] SciencesTsaile Health CenterJrzefh[address] [facility] [id number] Sedimentation Rate-Westergren 2 mm/h (Normal) Range: 0-30 60-Skj-776053:20 CBC With Differential/Platelet Comments: PATIENT WAS FASTINGPERFORMED BY: [facility] Zkfqtq[address] [facility] [id number] Baso (Absolute) 0.1 {x10E3/uL} (Normal) Range: 0.0-0.2 [...] 3.80-5.10 WBC 5.4 {x10E3/uL} (Normal) Range: 4.0-10.5 95-Mpo-185126:20 Comp. Metabolic Panel (14) Comments: PATIENT WAS FASTINGPERFORMED BY: [facility] HealthCareCzdgme[address] [facility] [id number] ALT (SGPT) 19 [iU]/L (Normal) Range: 0-40 [...] With LDL/HDL Comments: PATIENT WAS FASTINGPERFORMED BY: [employer]70 [facility]Former[facility] [id number] Ratio HDL Cholesterol 66 mg/dL (Normal) Comments: [...] 1.050 {uIU/mL} Comments: PATIENT WAS FASTINGPERFORMED BY: Reppify70 [facility] [id number] :20 (Normal) Range: 0.450-4.500 :50 CBCD,SMEAR DIFF [...] 47-70 WBC 6.7 K/mm3 (Normal) Range: 4.4-11.0 79-Xbf-14116:50 COMP METABOLIC A/G 1.1 {RATIO} (Normal) Range: [...] Report See Note (Normal) Comments: Exam Number: [id number] MAMMOGRAM, BILATERAL SCREENING DIGITAL AND CAD HISTORYRoutine [...] mammograms werealso examined with computer-aided detection software (ImageJammcard, [employer], [employer].). Reported By: ELEANOR ERNANDEZ M.D. :28 CBCD,SMEAR [...] 47-70 WBC 5.4 K/mm3 (Normal) Range: 4.4-11.0 15-Ysl-10428:28 COMP METABOLIC A/G 1.2 {RATIO} (Normal) Range: [...] :28 TSH 0.38 {uIU/mL} (Normal) Range: 0.34-4.82 8-Rsm-679156:04 Rapid Strep Test, Office (68763) Rapid Strep Test, Office Negative (Normal) 12-Vsw-005317:34 BILAT SCRN DIGITAL & CAD Radiology Report See Note (Normal) Comments: Exam Number: [id number] MAMMOGRAM, BILATERAL SCREENING DIGITAL AND CAD HISTORYRoutine [...] mammograms werealso examined with computer-aided detection software ([employer], [employer] Reported By: ELEANOR ERNANDEZ M.D. 21-Hiu-325338:31 DEXA BONE DENSITY STUDY () Radiology Report See Note (Normal) Comments: Exam Number: [id number] BONE DENSITOMETRY HISTORYPostmenopausal. TECHNIQUE Bone densitometry of [...] withinnormal limits. Reported By: ELEANOR ERNANDEZ M.D. [id number] COMP METABOLIC A/G 1.1 {RATIO} (Normal) Range: [...] : Follow up in 3 months with [facility] Indication: Hypertensive heart disease Hematuria, unspecified : [...] Gen Med in Sep 2010 make apt [facility] per pt request Indication: Hydronephrosis Hydronephrosis : Follow up for well woman with [facility] per pt request Indication: Hydronephrosis Anemia : FOLLOW UP IN 2 WEEKS January 07 by [facility] Indication: Anemia Abdominal pain, acute, generalized : FOLLOW UP IN 1 WEEK with [facility] Indication: Abdominal pain, acute, generalized Diarrhea : [...] Indication: Bronchitis Planned Observations Metabolic Panel, Comprehensive ([id number])Indication: Hypercholesterolemia On: 1-Yao-209325:52 Request Comments: Jun 2018 LIPID PANEL ([id number])Indication: Hypercholesterolemia On: 6-Isw-511145:51 Request Comments: Jun 2018 URINALYSIS ([id number])Indication: Hypertension, essential, benign On: 41-Vqq-700799:52 Request MICROALBUMIN: CREATININE RATIO (79696) AND ([id number])Indication: Hypertension, essential, benign On: 77-Tyj-417579:52 Request Metabolic Panel, Comprehensive ([id number])Indication: Hypertension, essential, benign On: 23-Hcs-676311:50 Request Comments: send to [facility] CBC, Platelets & Auto Diff ([id number])Indication: Hypertension, essential, benign On: 35-Sog-358408:50 Request Comments: send to [facility] TSH ([id number])Indication: Hypothyroidism On: 25-Obh-526845:50 Request Comments: send to [facility] LIPID PANEL (21444)Indication: Hypercholesterolemia On: 92-Yww-850649:50 Request Comments: send to [facility] URINALYSIS ([id number])Indication: Hypertension, essential, benign On: 8-Qjz-453921:03 Request Comments: today MICROALBUMIN: CREATININE RATIO ([id number]) AND ([id number])Indication: Hypertension, essential, benign On: 6-Cxm-889820:03 Request Comments: today TSH ([id number])Indication: Hypothyroidism On: 7-Ejf-854988:03 Request Comments: Jul 2017 MICROALBUMIN: CREATININE RATIO (48384) AND ([id number])Indication: Hypertension, essential, benign On: 28-Bgd-332230:51 Request Comments: Mar 2017 URINALYSIS ([id number])Indication: Hypertension, essential, benign On: 50-Dsx-944587:51 Request Comments: Mar 2017 TSH ([id number])Indication: Hypertension, essential, benign On: 12-Acn-025658:51 Request Comments: Mar 2017 CBC, Platelets & Auto Diff (70696)Indication: Hypertension, essential, benign On: 29-Qci-843417:51 Request Comments: Mar 2017 Metabolic Panel, Comprehensive ([id number])Indication: Hypertension, essential, benign On: 59-Lqf-106397:51 Request TSH (THYROID STIMULATING HORMONE) ([id number])Indication: Hypothyroidism On: 13-Uqg-280838:53 Request HEPATIC FUNCTION PANEL (03674)Indication: Hypertension, essential, benign On: 50-Ubl-234831:47 Request VITAMIN B12 AND FOLATES ([id number])Indication: Vitamin B 12 deficiency On: 6-Qwz-364606:52 Request CALCIFEDIOL (51203)Indication: DEFICIENCY, VITAMIN D NOS On: 4-Buv-119383:52 Request Urinalysis, Office (40184)Indication: Hematuria, unspecified On: 34-Ubo-913512:35 Request MICROALBUMIN URINE QUANT ([id number])Indication: Hypertensive heart disease On: 27-Ptn-121670:25 Request FECAL OCCULT HGB ASSAY- tubes sent home (09746)Indication: Well woman exam On: 4-Ctv-342612:51 Request OCCULT BLOOD FECES SCREEN- card done in office (33533)Indication: Well woman exam On: 4-Tvv-596494:51 Request Renal function Panel (55826)Indication: Hydronephrosis On: 3-Zgp-545103:22 Request Iron (77402)Indication: Anemia On: 58-Xwn-023814:39 Request Iron Binding Capacity (TIBC) (21414)Indication: Anemia On: 37-Rbl-186280:39 Request OVA & PARASITE DIR SMEAR (88514)Indication: Diarrhea On: 10-Buq-875696:50 Request OCCULT BLOOD FECES SCREEN ([id number])Indication: Diarrhea On: 12-Xmx-214156:50 Request LEUKOCYTE COUNT, FECAL (38330)Indication: Diarrhea On: 41-Ebq-282150:50 Request C-DIFFICILE, STOOL (98187)Indication: Diarrhea On: 01-Cic-424187:50 Request LORNA CULTURE-STOOL ([id number])Indication: Diarrhea On: 69-Tjp-550472:50 Request HEPATIC FUNCTION PANEL (55511)Indication: Hypercholesterolemia On: 97-Xut-581454:46 Request Lipid Panel (36849)Indication: Hypercholesterolemia On: 08-Fjh-936786:46 Request Comments: in three months (approximately) TSH (51412)Indication: Hypothyroidism On: 64-Fab-518187:06 Request METABOLIC PANEL, COMPREHENSIVE (27454)Indication: Hypertensive heart disease On: 14-Cpv-341526:06 Request LIPID PANEL ([id number])Indication: Hypertensive heart disease On: 25-Yhs-997317:06 Request CBC WITH MANUAL DIFF ([id number])Indication: Hypertensive heart disease On: 48-Kzc-850487:06 Request LORNA CULTURE-OTHER ([id number])Indication: Pharyngitis, acute On: 9-Xew-252492:04 Request CBC (Auto) ([id number])Indication: Hypercholesterolemia On: 32-Bqm-80404:13 Request Lipid Panel (07285)Indication: Hypercholesterolemia On: :13 Request Metabolic Panel, Comprehensive (50215)Indication: Hypercholesterolemia On: 37-Fca-73038:13 Request Comments: in six months (approximately) TSH (28391)Indication: Hypothyroidism On: 69-Ziq-528223:06 Request LIPID PANEL ([id number])Indication: Hypertension On: 45-Gqz-341779:01 Request Planned Encounters Medical; 3 Month FU - On: 14-Jun-2018 10:45 [facility] Sarai Bro CNP, CNP, Mary E Planned Procedures Flu Vaccine (Quadrivalent) On: 02-Jun-2018 Intent 33814Gj: Sarai Bro CNP Comments: Lot #[id number]/30/2019Site-L dltd, IMDose prefilled syringegiven by: SHARONDA CHOINVIS reviewed and ABN signed Sarai Bro CNP MAMMOGRAM BREAST BILATERAL On: 27-May-2018 Intent SCREENING DIGITAL ([id number])By: Sarai Bro CNP, CNP, Mary E Radiology - Femur - RightBy: On: 02-Mar-2018 Intent Sarai Bro CNP, CNP, Mary E DEXA SCAN AXIAL SKELETON On: 19-Oct-2017 Intent ([id number])By: Sarai Bro CNP, CNP, Mary E Aerosol Treatment ([id number])By: On: 07-Sep-2017 Intent Kelly Naqvi Comments: Lungs clear after aerosol treatment Flu Vaccine (Quadrivalent) On: 13-Apr-2017 Intent 30499Rv: Giselle Silva LPN Comments: InfluenzaLot #[id number]/18/18Site-L dltd, IMDose prefilled syringeVIS and ABN signedgiven by:ROSA MARIA cade MAMMOGRAM BREAST BILATERAL On: 05-Jan-2017 Intent SCREENING DIGITAL ([id number])By: Comments: after Apr 24 2017 Sarai Bro CNP, CNP, Mary E DEXA SCAN AXIAL SKELETON On: 05-Jan-2017 Intent (16751)By: Sarai Bro CNP Comments: After Apr 24 2017 Sarai Bro CNP Flu Vaccine (Quadrivalent) On: 06-Jul-2016 Intent 41483Bi: Giselle Silva LPN Comments: InfluenzaLot #Lot [id number]/30/17Site-L dltd, IMDose prefilled syringeVIS and ABN signedgiven by:ROSA MARIA cade MAMMOGRAM, SCREENING, BOTH On: 31-Mar-2016 Intent BREAST ([id number])By: Sarai Bro CNP, CNP, Mary E MAMMOGRAM, SCREENING, BOTH On: 17-Feb-2016 Intent BREAST ([id number])By: Sarai Bro CNP, CNP, Mary E PHYSICAL THERAPY EVALUATION On: 28-Jan-2016 Intent ([id number])By: Sarai Bro CNP, CNP, Mary E PHYSICAL THERAPY EVALUATION On: 28-Jan-2016 Intent ([id number])By: Sarai Bro CNP, CNP, Mary E Toradol Injection, 30 mg On: 28-Jan-2016 Intent ([id number])By: Roccoyin CARNEYSarai CNP, Mary E Radiology - Lumbar SpineBy: On: 28-Jan-2016 Intent Sarai Bro CNP, CNP, Mary E Radiology - Knee - LeftBy: On: 28-Jan-2016 Intent Sarai Bro CNP, CNP, Mary E Aerosol Treatment ([id number])By: On: 24-Dec-2015 Intent Sarai Bro CNP, CNP, Mary E Flu Vaccine (Quadrivalent) On: 10-May-2015 Intent [id number]: Hang ANGELIKA Sarai Moon Comments: Lot:[id number]:02/06/16Dose:0.5mLRoute:IMSite:L DltdGiven By:Kacie signed Hang ANGELIKA Sarai Moon DEXA SCAN AXIAL SKELETON On: 19-Mar-2015 Intent ([id number])By: Hang CARNEY Sarai Busby CNP MAMMOGRAM, SCREENING, BOTH On: 11-Feb-2015 Intent BREAST ([id number])By: Hang ANGELIKASarai CNP, Mary E DEXA SCAN AXIAL SKELETON On: 11-Feb-2015 Intent ([id number])By: Roccoyin CARNEYSarai CNP, Mary E Solu -Medrol Injection, 125 On: 25-Jul-2014 Intent mg (J2930)By: Hang CARNEY, Comments: [id number] 5.17right gm125 mgas, CIRCUS HAND Sarai Busby CNP Aerosol Treatment (37821)By: On: 25-Jul-2014 Intent Sarai Bro CNP, CNP, Mary E Toradol Injection, 30 mg On: 18-Jul-2014 Intent ([id number])By: Roccoyin CARNEYSarai CNP, Mary E Radiology - Lumbar SpineBy: On: 18-Jul-2014 Intent Sarai Bro CNP, CNP, Mary E Radiology - Hip - RightBy: On: 18-Jul-2014 Intent Sarai Bro CNP, CNP, Mary E Prevnar 13 ([id number])By: Ricardo On: 16-Jul-2014 Intent Giselle CRANE Comments: [id number] arm, IMAS Bone Density StudyBy: Hang On: 15-May-2014 Intent Sarai CARNEY CNP, Mary E ADMINISTRATION OF INFLUENZA On: 15-May-2014 Intent VIRUS VACCINE (G0008)By: Tiffaniewojciechyin CARNEY Sarai Bro CNP Sarai Moon FLU VAC, SPLIT, >3 YEARS, On: 15-May-2014 Intent INTRAMUSC (37378)By: Hang Comments: Lot:[id number]:04/24Dose:0.5mLRoute:IMSite:L DltdGiven By:FIDENCIO signed Sarai CARNEY CNP Sarai Moon SPECIMEN HNDLNG/TRNSPRT, OFFC On: 22-Mar-2014 Intent > LAB ([id number])By: Hang CARNEY Sarai Bro CNP Sarai Moon BILATERAL MAMMOGRAMS On: 18-Dec-2013 Intent ([id number])By: Hang CARNEY Sarai Bro ANGELIKA Sarai Moon Aerosol Treatment (69627)By: On: 22-Sep-2013 Intent Roccoyin CARNEY Sarai Bro CNP Sarai Moon Wax CurettesBy: Roccoyin ANGELIKA, On: 22-Sep-2013 Intent Sarai Busby CNP Ear Irrigation (09427)By: On: 22-Sep-2013 Intent Sarai Bro CNP, CNP, Mary E Eprescribed prescriptions On: 18-Aug-2013 Intent (G8553)By: Lucrecia Vargas Eprescribed prescriptions On: 05-May-2013 Intent (G8553)By: Hang CARNEY Sarai Bro CNP Sarai Moon ADMINISTRATION OF INFLUENZA On: 05-May-2013 Intent VIRUS VACCINE (G0008)By: Comments: lot # [id number] 6.2014site- L dltdroute-IMdose- 0.5mlRICHARD and ROMEL signedPenny Hauser LPN, LPN FLU VAC, SPLIT, >3 YEARS, On: 05-May-2013 Intent INTRAMUSC (77864)By: Penny Irving LPN MAMMOGRAM, SCREENING, BOTH On: 16-Dec-2012 Intent BREASTS ([id number])By: Hang CARNEY Sarai Moon Ciesyin CARNEY Rianna Spirometry (93774)By: Aristides On: 16-Dec-2012 Intent Penny CRANE Comments: mild airway obstruction Aerosol Treatment (78810)By: On: 30-Mar-2012 Intent Hang CARNEY RiannaRed Bro CNP Rianna PFT - CompleteBy: Hang CARNEY, On: 01-Mar-2012 Intent Rianna Ciwojciechyin CARNEY Rianna Inhaler Demonstration On: 28-Dec-2011 Intent ([id number])By: Hang CARNEY RiannaRed Bro CNP Rianna Pulse Oximetry (57100)By: On: 28-Dec-2011 Intent Tiffaniewojciechyin CARNEY Sarai Moon Tiffaniebonita ANGELIKA Rianna Eprescribed prescriptions On: 22-Apr-2011 Intent (G8553)By: Hang CARNEY RiannaRed Bro CNP Rianna Eprescribed prescriptions On: 21-Oct-2010 Intent (G8553)By: Hang CARNEY Rianna Ciwojciechyin CARNEY Rianna Eprescribed prescriptions On: 21-Oct-2010 Intent (G8553)By: Hang CARNEY Rianna Ciwojciechyin CARNEY Rianna MAMMOGRAM, SCREENING, BOTH On: 15-Apr-2010 Intent BREASTS ([id number])By: Hang CARNEY RiannaRed Bro CNP Rianna Ultrasound - RenalBy: Hang On: 23-Dec-2009 Intent ANGELIKA RiannaRed Bro CNP Rianna Comments: To be done on December 30 CT - Abdomen & Pelvis (IV On: 17-Dec-2009 Intent Contrast Needed)By: Hang CARNEY RiannaRed Bro CNP Rianna ADMINISTRATION OF INFLUENZA On: 22-May-2009 Intent VIRUS VACCINE (G0008)By: Karina Nina LPN FLU VAC, SPLIT, >3 YEARS, On: 22-May-2009 Intent INTRAMUSC (31873)By: Kelle Comments: Lot #[id number]-left deltoidgiven by:Karina PLAZA LPN Pulse Oximetry (79362)By: On: 25-Sep-2008 Intent PRESTON Thompson ADMINISTRATION OF INFLUENZA On: 13-Jun-2008 Intent VIRUS VACCINE (G0008)By: Comments: lot #[id number] exp- 01/15site-left delroute-imdose- 0.5 Penny Irving LPN FLU VAC, SPLIT, >3 YEARS, On: 13-Jun-2008 Intent INTRAMUSC (11834)By: Penny Irving LPN MAMMOGRAM, SCREENING, BOTH On: 28-May-2008 Intent BREASTS (67184)By: Susan Lee MD Bio Z (86343)By: Rosa CHRISTIANSEN, On: 28-Nov-2007 Intent Susan Sánchez SPECIMEN HNDLNG/TRNSPRT, OFFC On: 12-Oct-2007 Intent > LAB (09287)By: Tyesha Ramos DO Bone Density StudyBy: Rosa On: 18-Feb-2007 Intent Susan CHRISTIANSEN Comments: ache in back MAMMOGRAM, SCREENING, BOTH On: 18-Feb-2007 Intent BREASTS (53483)By: Susan Lee MD Bio Z ([id number])By: Rosa CHRISTIANSEN, On: 20-Jul-2006 Intent Susan Sánchez Planned Medications INJECTION, KETOROLAC TROMETHAMINE, PER 15 MG Ordered: 18-Jul-2014 Pending Ciesa ZINC ETCHER, Rianna Ciesa ZINC ETCHER, Rianna INJECTION, KETOROLAC TROMETHAMINE, PER 15 MG Ordered: 28-Jan-2016 Pending Ciesa ZINC ETCHER, Rianna Ciesa ZINC ETCHER, Rianna INJECTION, METHYLPREDNISOLONE SODIUM SUCCINATE, UP TO 125 MG Ordered: 25-Jul-2014 Pending Ciesa ZINC ETCHER, Rianna Ciesa ZINC ETCHER, Rianna Instructions Name Dates Details Nonsmoker : [...] The patient does have durable power of senior trial attorney and living will. The patient has noticed nothing from the geriatic depression scale. Other providers contributing to the katty ent's care are cable ferry operator (Dr paz ), blasting clay miner (Dr Vazquez ), urologist (Dr Pope ) [...]
--- OUTSIDE RECORDS SUMMARY | 2018-10-30 18:30 | XMS RPT_ITS | Continuity of Care Document ---
:1940 Author Organization [facility] Address [address] [facility] [address] [place] [address] Phone Care Team Providers Name Role Phone Tiffaniebonita ANGELIKA, Rianna Unavailable Amanda CHRISTIANSEN, Higinio Longoria Unavailable Turner CHRISTIANSEN, Nahun Plaza Unavailable [facility] BC, Eugenie Tovar Unavailable Rosa CHRISTIANSEN, [...] days Quantity: 90 {Tablet} Refills: 0 Ordered:13-Apr-2017 Hagn CARNEY, Sarai Ace CNP, Sarai Moon Start [...] : 18-Aug-2013 End : 28-Aug-2013 Inactive DRISDOL, 22177VOGF (Oral Capsule) 1 Capsule twice weekly for [...] for 0 days Refills: 0 Ordered:31-Mar-2010 Aristides BOOK TRIMMER, ChrissieInactive LEVSIN/SL, 0.125MG (Sublingual Tablet Sublingual) Tab [...] Quantity: 21 {Tablet} Refills: 0 Ordered:15-Nov-2017 Hang REIMBURSEMENT DIRECTOR, Sarai Malka REIMBURSEMENT DIRECTOR, Rianna Start : 15-Nov-2017 End : 22-Nov-2017 [...] Quantity: 60 {Capsule} Refills: 0 Ordered:10-May-2015 Slarb BOOK TRIMMERGiselle Benson Start : 22-Apr-2011 End : 10-May-2015 [...] Lower Extremity Result: Comments: See Note; NOTES: [facility] Cardiovascular Services [address] [place] [address] Venous Duplex US - Paulie Extrem 04/07/18 1000 MR#: [id number] Acct: [id number] Name: VALERIE CRAIN Rep #: [id number] : 1940 77 From: Higinio Patel MD [...] Date Higinio Patel MD CC: Sarai Bro INPATIENT AUDITOR; Higinio Patel MD Date Dictated: 04/07/18 1000 Date Transcribed: 04/08/18 160 Medical Review Coordinator: Signed 02-Mar-2018 Femur Min 2 Views Result: Comments: See Note; NOTES: [facility] Imaging Services [address] [place] [address] Femur Min 2 Views MR#: [id number] Acct: [id number] Name: VALERIE CRAIN Rep #: [id number] : 1940 F 77 From: Christiano Croft MD PCP: Sarai Bro NP Status: REG CLI Study: Femur Min 2 Views Date of Exam: 03/02/18 Exam# [id number] Ordering Dr: Sarai Bro STUDY: X-RAY - [...] vice support , CC: Sarai Bro NP Medical Review Coordinator: Signed 10-Feb-2018 Echocardiogram Complete Result: Comments: See Note; NOTES: [facility] Cardiovascular Services [address] [place] [address] Echo Complete 02/10/18 1100 MR#: [id number] Acct: [id number] Name: VALERIE CRAIN Rep #: [id number] : 1940 77 From: Amilcar Paz MD Attending Dr: Jennifer Goodwin Status: REG CLI Ordering Dr: Jennifer Goodwin Date: 02/10/18 Location: [facility] Sex: F C Admitted: [facility] For Study: DYSPNEA Procedure This [...] Date Amilcar Paz MD CC: Sarai Bro INPATIENT AUDITOR; Jennifer Goodwin Date Dictated: 02/10/18 1100 Date Transcribed: 02/10/18 1241 Medical Review Coordinator: Signed 28-Jan-2018 Cardiology Visit Report Result: Comments: See Note; NOTES: [facility] [address] [place] [address] OFFICE VISIT Date of Service: 01/28/18 MR#: [id number] Acct: [id number] Name: VALERIE CRAIN Rep #: [id number] : 1940 Provider: Jennifer Goodwin Age/Sex: 77/F [place] [facility] Status: Signed HPI HPI Details: [...] for her age. 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 She does [...] prior to saving. 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 This patient may have a combination of pa per and electronic documentation or all paper documentation. All documentation is viewable within the e-chart portion of [facility] for each patient visit. 09-Nov-2017 Dexa Bone Density Study Result: Comments: See Note; NOTES: [facility] Imaging Services [address] [place] [address] Dexa Bone Density Study MR#: [id number] Acct: [id number] Name: VALERIE CRAIN Rep #: [id number] : 1940 F 77 From: Henry Jones MD PCP: Sarai Bro NP Status: REG CLI Study: Dexa Bone Density Study Date of Exam: 11/09/17 Exam# [id number] Ordering Dr: Sarai Bro STUDY: DUAL E [...] Henry Jones MD at 13:40 EDT Tel [phone], Service support , CC: Sarai Bro NP Medical Review Coordinator: Signed 27-Jul-2017 Cardiology Visit Report Result: Comments: See Note; NOTES: [facility] 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 [id number] Electronically Signed: Henry Jones MD at 10:21 EDT Tel [phone], Service support , CC: Sarai Bro Medical Review Coordinator: Signed 27-Feb-2017 Carotid Duplex Ultrasound Result: Comments: See Note; NOTES: [facility] Cardiovascular Services [address] [place] [address] Carotid Duplex Ultrasound 02/26/17 1046 MR#: [id number] Acct: [id number] Name: SEAN ABEBE Rep #: [id number] : 1940 76 From: Malcolm Hill MD Attending Dr: Jennifer Goodwin Status: REG CLI Ordering Dr: Jennifer Goodwin Date: 02/26/17 Location: [facility] Sex: F C Admitte d: [...] Dictated: 02/26/17 1046 Date Transcribed: 02/27/17 1103 Medical Review Coordinator: Signed 03-Sep-2016 Chest PA and Lateral Result: Comments: See Note; NOTES: [facility] Imaging Services [address] [place] [address] Verdana 4d Chest PA and Lateral MR#: [id number] Acct: [id number] Name: SEAN CRAIN Rep # : [id number] : 1940 F 76 From: Henry Jones MD PCP: Sarai Bro Status: REG CLI Study: Chest PA and Lateral Date of Exam: 09/03/16 Exam# [id number] Ordering Dr: Nahun Vazquez MD STUD Y: [...] Henry diop MD at 12:41 EST Tel [phone], Service support [phone], CC: Sarai Bro; Nahun Vazquez MD Medical Review Coordinator: Signed 28-Aug-2016 Echocardiogram Complete Result: Comments: See Note; NOTES: [facility] Cardiovascular Services [address] [place] [address] Echo Complete 08/28/16 1003 MR#: [id number] Acct: [id number] Name: SEAN CRAIN p #: [id number] : 1940 76 From: Amilcar Paz MD Attending Dr: Jackson CHRISTIANSEN,Amilcar Status: REG CLI Ordering Dr: Amilcar Paz MD Date: 08/28/16 Location: [facility] Sex: F C Admitted: Reason For Study: AT [facility] Procedure This was a [...] Dictated: 08/28/16 1003 Date Transcribed: 08/28/16 1225 Medical Review Coordinator: Signed 24-Apr-2016 Bilat Scrn Digital AND CAD Result: Comments: See Note; NOTES: [facility] Imaging Services [address] [place] [address] Verdana 4d Bilat Scrn Digital AND CAD MR#: [id number] Acct: [id number] Name: BREANNSEAN Rep #: [id number] : 1940 F 75 From: Henry Jones MD PCP: Sarai Bro Status: REG CLI Study: Jero Edwards Digital AND CAD Date of Exam: 04/24/16 Exam# [id number] Ordering Dr: Sarai Bro MAMMOGRAPHY - BILATERAL [...] significant change since the prior study. ___ [facility]/Jero Edwards Digital AND CAD IMPRESSION: Stable bilateral screening mammogram. Yearly follow-up mammogram recommended. (A) ASSESSMENT CATEGORY: BIRADS Category 1: Negative. A letter regarding these results will be sent to the patient by the facility within 30 days. Approximately 10% of breast cancers are n ot detected by mammography. A normal mammogram should not delay biopsy of a clinically suspicious abnormality. [id number] Electronically Signed: Henry Jones MD at 10:58 EDT Tel [phone], Service support [phone], CC: Sarai Bro Medical Review Coordinator: Signed 04-Mar-2016 PT D/C Summary (1) Result: Comments: See Note; NOTES: [facility] [address] [place] [address] Fax REHABILITATION [facility] DISCHARGE SUMMARY MR#: [id number] Acct: [id number] Name: SEAN CRAIN Rep #: [id number] : 1940 75 From: Giselle NELSON Referring [...] please feel free to call me at [phone]. Thank you for the referral of this patie nt. Sincerely, Giselle Yan <Electronically signed by Giselle Yan MPT> 03/04/161916 CC: Sarai Bro Signed 04-Feb-2016 Inital Evaluation (1) - PT Result: Comments: See Note; NOTES: [facility] [address] [facility] [address] [place] [address] Fax [facility]ABIL[facility]ATION [facility] INITIAL EVALUATION MR#: [id number] Acct: [id number] Name: SEAN CRAIN Rep #: [id number] : 1940 75 From: Giselle Yan MPT Referring Dr.: Sarai Bro Status: REG RCR Insurance: MEDICARE PART A B [facility] Patient's Visit Information SEAN CRAIN [...] to be FAXED BACK to us at [phone] for Medicare purposes . Please let me know if there are questions or concerns regarding this plan of care. Physician Signature: Date: <Electronical ly signed by Giselle Yan MPT> 02/04/16 1628 CC: Sarai Bro Signed For Medicare only, by signing this I certify the plan of care. Physicians Signature Date 28-Jan-2016 Knee 4 or More Views Result: Comments: See Note; NOTES: [facility] Imaging Services [address] [place] [address] Verdana 4d Knee 4 or More Views MR#: [id number] Acct: [id number] Name: SEAN DWYER Rep #: [id number] : 1940 F 75 From: Shreyas Beaver MD PCP: Sarai Bro Status: REG CLI Study: Knee 4 or More Views Date of Exam: 01/28/16 Exam# [id number] Ordering Dr: Sarai Bro STUDY: X-RAY - [...] MD at 19:39 EDT , Service support [phone], ORDER # : [id number] RAD/Knee 4 or More Views IMPRESSION: No acute abnormality. Mild degenerative changes. Electronically Signed: Shreyas Beaver MD at 19:39 EDT , Service sup port [phone], CC: Sarai Bro Medical Review Coordinator: Signed 28-Jan-2016 L/S Spine Min 4 Views Result: Comments: See Note; NOTES: [facility] Imaging Services [address] [place] [address] Verdana 4d L/S Spine Min 4 Views MR#: [id number] Acct: [id number] Name: SEAN BERRIOS Rep #: [id number] : 1940 F 75 From: Shreyas Beaver MD PCP: Sarai Bro Status: REG CLI Study: L/S Spine Min 4 Views Date of Exam: 01/28/16 Exam# [id number] Ordering Dr: Shital Bro STUDY: X-RAY - [...] MD at 19:40 EDT , Service support [phone], Fax RAD/L/S Spine Min 4 Views IMPRESSION: No acute abnormality. Mild to moderate degenerative changes. Electronically Signed: Shreyas Beaver MD at 19:40 EDT T el [phone], Service support [phone], CC: Sarai Bro Medical Review Coordinator: Signed 19-Mar-2015 Dexa Bone Density Study (HP) Result: Comments: See Note; NOTES: [facility] Imaging Services [address] [place] [address] Bone Density Report MR#: [id number] Acct: [id number] Name: SEAN CRAIN Rep #: [id number] : 1940 F 74 From: Henry Jones MD PCP: Sarai Bro Status: REG CLI Study: Dexa Bone Density Study (HP) Date of Exam: 03/19/15 Exam# [id number] Ordering Dr: Sarai Bro STUD Y: DUAL [...] Henry Jones MD at 14:35 EDT Tel [phone], Servic e support [phone], CC: Sarai Bro Medical Review Coordinator: Signed 12-Mar-2015 Bilat Scrn Digital AND CAD Result: Comments: See Note; NOTES: [facility] Imaging Services [address] [place] [address] Breast Imaging Report MR#: [id number] Acct: [id number] Name: SEAN CRAIN Rep #: [id number] : 1940 F 74 From: Henry Jones MD PCP: Sarai Bro Status: REG CLI Study: Bilat Scrn Digital AND CAD Date of Exam: 03/12/15 Exam# [id number] Ordering Dr: Sarai Bro MAMM OGRAPHY - [...] Jones MD 23/03/04 at 9:59 EDT Tel [phone], Service support [phone], CC: Sarai Bro Medical Review Coordinator: Signed 16-Jan-2015 Operative Report Result: Comments: See Note; NOTES: [facility] Medical Records Department [address] [place] [address] Operative Report MR#: [id number] Acct: [id number] Name: SEAN CRAIN Rep #: [id number] : 1940 74 From: Amilcar Paz MD [...] care. Amilcar Paz MD T: NTS JOB: [id number] 01/16/15 0901 <Electronically signed by Amilcar Paz MD&amp ;#62; Date Amilcar Paz MD CC: Sarai Bro; Amilcar Paz MD Date Dictated: 01/14/151318 Date Transcribed: 01/14/151318 Medical Review Coordinator: Signed 15-Jan-2015 Consultation Result: Comments: See Note; NOTES: [facility] Medical Records Department [address] [place] [address] Consultation MR#: [id number] Acct: [id number] Name: SEAN CRAIN Rep #: [id number] : 1940 74 From: Armando Guerra MD [...] C C: Amilcar Bro T: NTS JOB: [id number] 01/15/15 0643 <Electronically signed by Armando Guerra MD> Date Armando Guerra MD CC: Sarai Bro; Armando Guerra MD; Amilcar Paz MD Date Dictated: 01/14/151356 Date Transcribed: 01/14/151356 Medical Review Coordinator: Signed 07-Jan-2015 Chest PA and Lateral Result: Comments: See Note; NOTES: [facility] Imaging Services [address] [place] [address] Radiology Report MR#: [id number] Acct: [id number] Name: SEAN CRAIN Rep #: [id number] : 1940 F 74 From: Henry Jones MD PCP: Sarai Bro Status: PRE CLI Study: Chest PA and Lateral Date of Exam: 01/07/15 Exam# [id number] Ordering Dr: Amilcar Paz MD STUDY: X-RA [...] Henry Jones MD at 14:28 EDT Tel [phone], Service support [phone], RAD/Chest PA and Lateral IMPRESSION: Hyperinflation. No acute abnormality is seen. Electronically Signed: Henry Jones MD 2014 at 14:28 EDT Tel [phone], Service support [phone], CC: Sarai Bro; Amilcar Paz MD Medical Review Coordinator: Signed 24-Dec-2014 Echocardiogram Complete Result: Comments: See Note; NOTES: [facility] Cardiovascular Services [address] [place] [address] Echo Complete 12/24/14 1003 MR#: [id number] Acct: [id number] Name: SEAN CRAIN Rep #: [id number] : 1940 74 From: Amilcar Paz MD Attending Dr: Jennifer Monroe Status: REG CLI Ordering Dr: Jennifer Monroe Date: 12/24/14 Location: [facility] Sex: F C Admitted: Pr raji [...] Jennifer Monroe Performed By: SANTA Banegas 12/24/14 1789 Date Amilcar Paz MD CC: Sarai Bro; Jennifer Monroe Date Dictated: 12/24/14 1003 Date Transcribed: 12/24/14 1359 Medical Review Coordinator: Signed 19-Jul-2014 Hip min 2 Views Result: Comments: See Note; NOTES: [facility] Imaging Services [address] [place] [address] Radiology Report MR#: [id number] Acct: [id number] Name: SEAN CRAIN Rep #: [id number] : 1940 F 74 From: Henry Jones MD PCP: Sarai Bro Status: REG CLI Study: Hip min 2 Views Date of Exam: 07/19/14 Exam# [id number] Ordering Dr: Sarai Bro STUDY: X-RAY - [...] Henry Jones MD at 11:38 EST Tel [phone], Service support [phone], RAD/Hip min 2 Views IMPRESSION: Degenerative changes of the hip. Electronically Signed: Henry Jones MD at 11:38 EST Tel [phone], Service support [phone], CC : Sarai Bro Medical Review Coordinator: Signed 19-Jul-2014 L/S Spine Min 4 Views Result: Comments: See Note; NOTES: [facility] Imaging Services [address] [place] [address] Radiology Report MR#: [id number] Acct: [id number] Name: SEAN CRAIN Rep #: [id number] : 1940 F 74 From: Henry oJnes MD PCP: Sarai Bro Status: REG CLI Study: L/S Spine Min 4 Views Date of Exam: 07/19/14 Exam# [id number] Ordering Dr: Sarai Bro STUDY: X-RAY - [...] Henry Jones MD at 13:19 EST Tel [phone], Service support [phone], CC: Sarai Bro Medical Review Coordinator: Signed 05-Jan-2014 Bilat Scrn Digital & CAD Result: Comments: See Note; NOTES: [facility] Imaging Services [address] [facility] [place] [address] Breast Imaging Report MR#: [id number] Acct: [id number] Name: SEAN CRAIN Rep #: [id number] : 1940 F 73 From: Henry Jones MD PCP: Status: [facility] CLI Exam# [id number] Ordering Dr: Sarai Bro MAMMOGRAPHY - BILATERAL [...] Henry Jones MD at 9:58 EDT Tel [phone], Service support [phone], CC: Sarai Bro; Amilcar Paz MD Medical Review Coordinator: Signed Immunization Name Dates Details Influenza (3 years and up) on: 13-Jun-2008 Influenza (3 years and up) on: 22-May-2009 Comments: Lot #[id number] deltoidgiven by:CDH Family History Unknown Family Member Name Dates Details Father Comments: [place] at 48 & Status: Active Social History Name Dates Details Caffeine Use Comments: 2 cups coffee qd 1 soda qod Status: Active 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 Status: Inactive Tobacco use: Never smoker. Status: Inactive Vital Signs Date Test Result Details 74-Ylz-019686:20 Temperature 99.4 f Comments: Method: Temporal Pulse [...] kg/m2 Body Surface Area Calculated 1.87 m2 9-Aat-313535:30 Temperature 97.7 f Comments: Method: Temporal Pulse [...] kg/m2 Body Surface Area Calculated 1.86 m2 82-Ynd-144329:20 Temperature 98.2 f Pulse 67 /min Comments: [...] kg/m2 Body Surface Area Calculated 1.85 m2 56-Hil-242935:44 Temperature 98 f Comments: Method: Oral Pulse [...] kg/m2 Body Surface Area Calculated 1.81 m2 57-Qiu-199476:30 Temperature 99.2 f Comments: Method: Oral Pulse [...] kg/m2 Body Surface Area Calculated 1.81 m2 98-Gfj-507642:39 Temperature 99 f Comments: Method: Oral Pulse [...] Value Details :18 Prothrombin Time w/INR Comments: [facility] [address] [place], [place], [phone](538) INR 2.7 (Normal) PROTIME 28.4 s (Abnormal) Range: 11.7-14.9 20-Pwq-335695:14 Prothrombin Time w/INR Comments: [facility] [address] [place], [place], [phone](547) INR 2.2 (Normal) PROTIME 24.6 s (Abnormal) Range: 11.7-14.9 :18 Prothrombin Time w/INR Comments: [facility] [address] [place], [place], [phone](225) INR 2.2 (Normal) PROTIME 24.3 s (Abnormal) Range: 11.7-14.9 :26 Prothrombin Time w/INR Comments: [facility] [address] [place], [place], [phone](230) INR 2.2 (Normal) PROTIME 24.6 s (Abnormal) Range: 11.7-14.9 :13 Prothrombin Time w/INR Comments: [facility] [address] [place], [place], [phone](228) INR 2.3 (Normal) PROTIME 25.7 s (Abnormal) Range: 11.7-14.9 :58 Prothrombin Time w/INR Comments: [facility] [address] [place], [place], [phone](609) INR 2.0 (Normal) PROTIME 22.8 s (Abnormal) Range: 11.7-14.9 :45 CBC W/Diff, Automated Comments: [facility] [address] [place], [address] ; another Absolute Lymph 2.13 [...] Range: 4.4-11.0 :45 Comprehensive Metabolic Profil Comments: [facility] [address] [place], [address] ; Dr Jackson GAP 8 [...] Comments: Please note revised GLUCOSE reference range igvphzvfz84/02/2018. 88-Esx-78323:45 Lipid Profile Comments: [facility] [address] [place], [address] VLDL 17 mg/dL (Normal) Range: 5-40 LDL [...] 200-240 mg/dL Borderline >240 mg/dL High Risk 49-Nuq-36092:45 Microalb:Creat Ratio,Random UR Comments: [facility] [address] [place], [place], [phone] MALB:CREAT 8.4 {mg/g_CRE} (Normal) MICROALBUMIN,UR 13.5 mg/L (Normal) UR CREAT 160.00 mg/dL (Normal) 19-Jiy-79413:45 Prothrombin Time w/INR Comments: [facility] [address] [place], [address] INR 1.9 (Normal) PROTIME 21.5 s (Abnormal) Range: 11.7-14.9 Comments: ADDENDA: cardio :45 Thyroid Stim Hormone (TSH) Comments: [facility] [address] [place], [address] TSH 2.92 {uIU/mL} (Normal) Range: 0.358-3.74 01-Xqm-83849:45 Urinalysis, Routine (Dipstick) Comments: How was Urine Obtained? [facility] [address] [place], [address] ; other doc LEUK ESTERASE 100 /ul (Abnormal) OCCULT BLOOD-UR 50 /ul (Abnormal) NITRITE UR Negative (Normal) UROBILI Normal mg/dL (Normal) PROT DIPSTX Negative mg/dL (Normal) pH UR 6.0 (Normal) Range: 5.0 - 8.0 SP.GR. DIPSTX 1.020 (Normal) Range: 1.002-1.030 KETONE UR Negative mg/dL (Normal) BILIRUBIN URINE Negative mg/dL (Normal) GLUCOSE, UR Normal mg/dL (Normal) CLARITY Cloudy (Normal) COLOR Yellow (Normal) 17-Bew-381480:31 Prothrombin Time w/INR Comments: [facility] [address] [place], [place], [phone] INR 2.1 (Normal) PROTIME 23.3 s (Abnormal) Range: 11.7-14.9 0-Kry-761940:20 Prothrombin Time w/INR Comments: [facility] [address] [place], [phone] INR 2.2 (Normal) Comments: ADDENDA: managed by cardio PROTIME 24.1 s (Abnormal) Range: 11.7-14.9 04-Gtz-607853:40 Prothrombin Time w/INR Comments: [facility] [address] [place], [phone] ; managed by cardio INR 2.0 (Normal) PROTIME 22.9 s (Abnormal) Range: 11.7-14.9 17-Cgo-390481:13 Prothrombin Time w/INR Comments: [facility] [address] [place], [place], [address] INR 1.6 (Normal) PROTIME 19.5 s (Abnormal) Range: 11.7-14.9 98-Opv-798309:28 Prothrombin Time w/INR Comments: [facility] [address] [place], [phone] ; cardio INR 1.8 (Normal) PROTIME 19.8 s (Abnormal) Range: 11.7-14.9 8-Mgd-148996:53 Prothrombin Time w/INR Comments: [place] [address] [place], [address] INR 2.4 (Normal) PROTIME 24.8 s (Abnormal) Range: 11.7-14.9 7-Vfs-491101:26 Prothrombin Time w/INR Comments: [facility] [address] [place], [address] INR 1.9 (Normal) PROTIME 21.2 s (Abnormal) Range: 11.7-14.9 46-Fhd-038512:42 Rapid Flu (68691 x 2) Influenza A Ag POS B (Normal) 50-Odg-797628:04 Prothrombin Time w/INR Comments: [facility] [address] [place], [place], [phone] ; cardio manages INR 1.4 (Normal) PROTIME 16.5 s (Abnormal) Range: 11.7-14.9 94-Urh-184628:28 Prothrombin Time w/INR Comments: [facility] [address] [place], [place], [phone] INR 1.2 (Normal) PROTIME 14.3 s (Normal) Range: 11.7-14.9 2-Rhw-116972:11 Prothrombin Time w/INR Comments: [facility] [address] [place], [place], [address] INR 2.0 (Normal) PROTIME 21.6 s (Abnormal) Range: 11.7-14.9 63-Lig-341249:18 CBC W/Diff, Automated Comments: [facility] [address] [place], [address] Absolute Lymph 2.38 {X10_3/ul} (Normal) [...] Range: 4.4-11.0 :18 Prothrombin Time w/INR Comments: [facility] [address] [place], [place], [address] INR 2.1 (Normal) PROTIME 22.8 s (Abnormal) Range: 11.7-14.9 :52 POTASSIUM SERUM (55804) Comments: STAT; Order Date: 07/23/17Order Info: 2823-3 - KComments: [facility] [address] [place], [place], [address] K 4.4 mmol/L (Normal) Range: 3.5-5.1 17-Uyn-450339:56 Microscopic Examination Comments: PATIENT NOT FASTINGPERFORMED BY: [address] [place] [id number] Bacteria Few (Normal) Mucus Threads Present (Normal) Epithelial Cells (non renal) 0-10 {/hpf} (Normal) Range: 0 - 10 RBC 3-10 {/hpf} (Abnormal) Range: 0 - 2 WBC 0-5 {/hpf} (Normal) Range: 0 - 5 :56 VITAMIN B-12 (CYANOCOBALAMIN) Comments: PATIENT NOT FASTINGPERFORMED BY: [employer] Ukvnoo8137 [employer] [id number] (55969) Vitamin B12 451 pg/mL (Normal) Range: 232-1245 Comments: Please note reference interval change :56 TSH (83890) Comments: PATIENT NOT FASTINGPERFORMED BY: [employer] Hocyys5461 [address] [place] [employer] [id number] TSH 2.910 {uIU/mL} (Normal) Range: 0.450-4.500 :56 URINALYSIS, W/ MICRO (14274) Comments: PATIENT NOT FASTINGPERFORMED BY: [facility] CenterLonqwj7466 [facility] [id number] Microscopic Examination See below: (Normal) Comments: Microscopic was indicated and was performed. Nitrite, Urine Negative (Normal) Urobilinogen,Semi-Qn 0.2 mg/dL (Normal) Range: 0.2-1.0 Bilirubin Negative (Normal) Occult Blood 1+ (Abnormal) Ketones Negative (Normal) Glucose Negative (Normal) Protein Negative (Normal) WBC Esterase Trace (Abnormal) Appearance Clear (Normal) Urine-Color Yellow (Normal) pH 7.0 (Normal) Range: 5.0-7.5 Specific [place] 1.017 (Normal) Range: 1.005-1.030 :56 MICROALBUMIN: CREATININE RATIO Comments: PATIENT NOT FASTINGPERFORMED BY: [facility] CenterZiztbg4487 [facility] [id number] ([id number]) AND (13017) Microalb/Creat Ratio 7.4 {mg/g_creat} (Normal) Range: 0.0-30.0 Microalbumin, Urine 5.0 ug/mL (Normal) Creatinine, Urine 68.0 mg/dL (Normal) :56 METABOLIC PANEL, COMPREHENSIVE Comments: PATIENT NOT FASTINGPERFORMED BY: [facility] [id number] (29103) ALT (SGPT) 18 [iU]/L (Normal) Range: 0-32 [...] Glucose, Serum 87 mg/dL (Normal) Range: 65-99 11-Eho-425684:56 CBC W/AUTO DIFF WBC (08228) Comments: PATIENT NOT FASTINGPERFORMED BY: [facility]Co[facility] CenterWipjfz3018 [facility] [id number] Immature Grans (Abs) 0.0 {x10E3/uL} (Normal) Range: [...] Range: 3.4-10.8 :38 Prothrombin Time w/INR Comments: [facility] [address] [place], [address] INR 2.0 (Normal) PROTIME 22.0 s (Abnormal) Range: 11.7-14.9 78-Jzq-485932:21 Prothrombin Time w/INR Comments: [facility] [address] [place], [address] INR 2.5 (Normal) PROTIME 26.0 s (Abnormal) Range: 11.7-14.9 :12 Lipid Profile Comments: Order Date: 12/04/16Order Info: 0788-1 - *Hepatic Function PanelOrder Info: 35439-3 - *Lipid Profile CC PCPComments: 12 hours fasting, may have water.[facility] [address]qxmdjyyk[address] [place], [place], 201153(726) VLDL 21 mg/dL (Normal) Range: 5-40 LDL [...] Info: 0788-1 - *Hepatic Function PanelOrder Info: [id number] - *Lipid Profile CC PCPComments: 12 hours fasting, may have water.[facility] Iwmzyoutos[address] [place], [place], [address] D BILI 0.09 mg/dL (Normal) Range: 0.00-0.30 T BILI 0.50 mg/dL (Normal) Range: 0.20-1.00 ALT 21 U/L (Normal) Range: 12-78 ALK P 78 U/L (Normal) Range: 45-117 AST 16 U/L (Normal) Range: 15-37 GLOB 3.1 g/dL (Normal) Range: 2.2-4.2 ALB 3.5 g/dL (Normal) Range: 3.4-5.0 Comments: Please note revised Albumin AND Globulin reference rangeeffective 2017. T PROT 6.6 g/dL (Normal) Range: 6.4-8.2 05-Bbx-195215:39 Prothrombin Time w/INR Comments: [facility] [address] [place], [place], [address] INR 2.4 (Normal) PROTIME 24.9 s (Abnormal) Range: 11.7-14.9 :43 Prothrombin Time w/INR Comments: [facility] [address] [place], [place], [address] INR 2.2 (Normal) PROTIME 23.9 s (Abnormal) Range: 11.7-14.9 :22 CBC W/Diff, Automated Comments: [facility] [address] [place], [place], [address] ; OV 9/5 Absolute Lymph 2.11 {X10_3/ul} [...] Range: 4.4-11.0 09-Apr-20179:22 Comprehensive Metabolic Profil Comments: [facility] [address]orb[address]ou[address] [place], [address] GAP 7 (Normal) Range: 5-15 CO2 33.0 [...] 70-110 :22 Thyroid Stim Hormone (TSH) Comments: [facility] I[address]iiq[address] [place], [place], [address] TSH 3.52 {uIU/mL} (Normal) Range: 0.358-3.74 10-Rhv-658033:37 Prothrombin Time w/INR Comments: [facility] Wxos[address]ugjsy07[address] [place], [address] INR 2.1 (Normal) PROTIME 22.4 s (Abnormal) Range: 11.7-14.9 67-Yhd-156241:12 Prothrombin Time w/INR Comments: PT ORDER IS AND T4 IS [facility] [address]ujl[address] [place], [place], [phone] INR 2.1 (Normal) PROTIME 23.1 s (Abnormal) Range: 11.7-14.9 93-Vuk-879256:11 T4 Total, Thyroxin Comments: Order Date: 02/19/17Order Info: [id number] - *T4 (Total)Comments: Reason:Order Info: [id number] - *[facility] Csf[address]az[address] [place], [place], [address] T4 THYROXIN 7.2 ug/dL (Normal) Range: 4.8-13.9 89-Rlb-000172:11 Thyroid Stim Hormone (TSH) Comments: Order Date: 02/19/17Order Info: [id number] - *T4 (Total)Comments: Reason:Order Info: 3016-3 - *[facility] Yfrfdfhcvd23[address] [place], [address] TSH 1.56 {uIU/mL} (Normal) Range: 0.358-3.74 :37 Prothrombin Time w/INR Comments: [facility] [address]throvhbqs[address] [place], [address] INR 1.9 (Normal) PROTIME 21.4 s (Abnormal) Range: 11.7-14.9 7-Ult-877763:50 Prothrombin Time w/INR Comments: [facility] Zdjpcanavk[address] [place], [address] INR 2.0 (Normal) PROTIME 21.6 s (Abnormal) Range: 11.7-14.9 22-Obe-303469:37 Prothrombin Time w/INR Comments: [facility] O[address]km[address] [place], [address] INR 2.5 (Normal) PROTIME 25.6 s (Abnormal) Range: 11.7-14.9 74-Yau-860317:18 Prothrombin Time w/INR Comments: [facility] Twgtqsjhuk[address] [place], [address] INR 2.1 (Normal) PROTIME 22.5 s (Abnormal) Range: 11.7-14.9 81-Bwk-440918:17 Lipid Profile Comments: Order Date: 06/02/16Order Info: [id number]- [id number] - *Hepatic Function PanelDR.JACKSON BROWNEICHELLE LIPID LIVEROrder Date: 06/02/16Order Info: [id number] - *Lipid Profile CC PCPComments: 12 hours fasting, [facility] mray lalaS[facility] Huwverkebs3244 [place], [address] VLDL 31 mg/dL (Normal) Range: 5-40 LDL [...] 200-240 mg/dL Borderline >240 mg/dL High Risk 46-Err-215779:17 Liver Profile Comments: Order Date: 06/02/16Order Info: 0788- 1 - *Hepatic Function PanelDR.JACKSON PTMICHELLE LIPID LIVEROrder Date: 06/02/16Order Info: [id number] - *Lipid Profile CC PCPComments: 12 hours fasting, may have mary lalaS[facility] Xoefamizvp6704 [place], [address] D BILI 0.09 mg/dL (Normal) Range: 0.00-0.30 T BILI 0.50 mg/dL (Normal) Range: 0.20-1.00 ALT 28 U/L (Normal) Range: 12-78 ALK P 93 U/L (Normal) Range: 45-117 AST 21 U/L (Normal) Range: 15-37 GLOB 3.4 g/dL (Normal) Range: 2.3-3.5 ALB 4.0 g/dL (Normal) Range: 3.4-5.0 T PROT 7.4 g/dL (Normal) Range: 6.4-8.2 4-Aab-645642:32 Prothrombin Time w/INR Comments: [facility] [address]ft[address] [place], [address] ; jackson manages INR 1.8 (Normal) PROTIME 20.2 s (Abnormal) Range: 11.7-14.9 88-Wgr-982958:09 Prothrombin Time w/INR Comments: [facility] Sm[address]xy[address]qf[address] [place], [address] ; another doc INR 2.1 (Normal) PROTIME 23.1 s (Abnormal) Range: 11.7-14.9 69-Xmm-598397:10 Metabolic Panel, Comprehensive Comments: today; PATIENT NOT FASTINGPERFORMED BY: [facility] Tytnly[address] [place] [id number] ([id number]) ALT (SGPT) 16 [iU]/L (Normal) Range: 0-32 [...] Glucose, Serum 89 mg/dL (Normal) Range: 65-99 20-Dzw-535503:26 Prothrombin Time w/INR Comments: [facility] Badmulkrsi[address] [place], [place], [address] INR 2.2 (Normal) PROTIME 23.7 s (Abnormal) Range: 11.7-14.9 02-Oex-651315:52 CBC-Complete Blood Cnt No Diff Comments: [facility] [address] [place], [address] ; sibilia MPV 10.8 fL [...] Range: 4.4-11.0 :58 Prothrombin Time w/INR Comments: [facility] Opwhkuaaxf[address] [place], [place], [address] INR 2.0 (Normal) PROTIME 22.4 s (Abnormal) Range: 11.7-14.9 78-Rvn-308585:49 Prothrombin Time w/INR Comments: [facility] [address] [place], [address] INR 2.0 (Normal) PROTIME 22.3 s (Abnormal) Range: 11.7-14.9 62-Vuf-654680:54 CBC WITH MANUAL DIFF (68875) Comments: PATIENT NOT FASTINGPERFORMED BY: CB [facility] Xoameq8617 [facility] [id number] Immature Grans (Abs) 0.0 {x10E3/uL} (Normal) Range: [...] 3.77-5.28 WBC 6.2 {x10E3/uL} (Normal) Range: 3.4-10.8 76-Mgf-078780:54 Metabolic Panel, Comprehensive Comments: PATIENT NOT FASTINGPERFORMED BY: [facility]6370 [facility] [id number] (54246) ALT (SGPT) 18 [iU]/L (Normal) Range: 0-32 [...] Glucose, Serum 86 mg/dL (Normal) Range: 65-99 72-Fwn-988643:54 TSH (48884) Comments: PATIENT NOT FASTINGPERFORMED BY: [facility]Co[facility] CenterDhxdjh6752 [facility] [id number] TSH 2.890 {uIU/mL} (Normal) Range: 0.450-4.500 23-Ehy-395202:23 Prothrombin Time w/INR Comments: [facility] Orsqfalfat80[address] [place], [place], [address] ; managed by cardio INR 2.6 (Normal) PROTIME 27.4 s (Abnormal) Range: 11.7-14.9 83-Ykj-69225:54 Prothrombin Time w/INR Comments: [facility] Yzivllbvhr3586 [address] [place], [place], [address] ; another doc INR 2.0 (Normal) PROTIME 22.3 s (Abnormal) Range: 11.7-14.9 :53 Lipid Profile Comments: Order Date: 05/22/16 Order #: [id number] Memorial Hospital Pbslwdogew2868 [address] [place], [place], [address] VLDL 21 mg/dL (Normal) Range: 5-40 LDL [...] Profile Comments: Order Date: 05/22/16 Order #: [id number] Memorial Hospital Xsqtpfjcju0598 [address] [place], [place], [address]60[address] D BILI < 0.05 mg/dL (Normal) Range: [...] Range: 6.4-8.2 :09 Prothrombin Time w/INR Comments: [facility] Rye[address]we[address] [place], [place], [address] INR 2.5 (Normal) PROTIME 26.3 s (Abnormal) Range: 11.7-14.9 :59 Prothrombin Time w/INR Comments: [facility] [address] [place], [place], [address] ; managed by cardio INR 2.9 (Normal) PROTIME 29.3 s (Abnormal) Range: 11.7-14.9 :05 Prothrombin Time w/INR Comments: [facility] Eg[address]qsj[address] [place], [address] INR 2.0 (Normal) PROTIME 22.3 s (Abnormal) Range: 11.7-14.9 72-Caa-152803:11 Prothrombin Time w/INR Comments: [facility] Anctz[address] [place], [place], [address] INR 2.7 (Normal) Comments: ADDENDA: managed by cardio PROTIME 27.7 s (Abnormal) Range: 11.7-14.9 :14 Prothrombin Time w/INR Comments: [facility] Y[address]udflim[address] [place], [place], [address] ; managed by Jackson INR 2.7 (Normal) PROTIME 28.1 s (Abnormal) Range: 11.7-14.9 :45 Prothrombin Time w/INR Comments: [facility] [address]co[address] [place], [place], [address] ; managed by cardio INR 3.1 (Normal) PROTIME 31.3 s (Abnormal) Range: 11.7-14.9 :27 Prothrombin Time w/INR Comments: [facility] Usbe[address]fb[address] [place], [place], [address] ; managed by cardio INR 3.1 (Normal) PROTIME 31.1 s (Abnormal) Range: 11.7-14.9 :22 Prothrombin Time w/INR Comments: [facility] Wetxjkwbdf[address] [place], [place], [address] INR 2.6 (Normal) PROTIME 27.4 s (Abnormal) Range: 11.7-14.9 16-Jan-20169:08 Prothrombin Time w/INR Comments: [facility] Hz[address]ws[address] [place], [place], [address] ; managed with Dr. paz INR 4.1 (Abnormal) Comments: CRITICAL VALUE REPEATED AND VERIFIED. CALLED TO [facility]01/16/16 1251 Elza Hinojosa.RESULTS READ BACK BY SAME . PROTIME 38.2 s (Abnormal) Range: 11.7-14.9 20-Ijg-015023:11 Microscopic Examination Comments: PATIENT WAS FASTINGPERFORMED BY: [facility] [id number] Bacteria None seen (Normal) Mucus Threads Present (Normal) Epithelial Cells (non renal) 0-10 {/hpf} (Normal) Range: 0 - 10 RBC 11-30 {/hpf} (Abnormal) Range: 0 - 2 WBC 0-5 {/hpf} (Normal) Range: 0 - 5 28-Ufo-814533:11 MICROALBUMIN: CREATININE RATIO Comments: PATIENT WAS FASTINGPERFORMED BY: [employer] IO [facility] [id number] (00458) AND (05983) Microalb/Creat Ratio 11.4 {mg/g_creat} (Normal) Range: 0.0-30.0 Microalbumin, Urine 12.1 ug/mL (Normal) Comments: Please note reference interval change Creatinine, Urine 106.3 mg/dL (Normal) Comments: Please note reference interval change 73-Hap-501044:11 URINALYSIS (60405) Comments: PATIENT WAS FASTINGPERFORMED BY: [employer] IO [facility] [id number] Microscopic Examination See below: (Normal) Comments: Microscopic was indicated and was performed. Nitrite, Urine Negative (Normal) Urobilinogen,Semi-Qn 0.2 mg/dL (Normal) Range: 0.2-1.0 Bilirubin Negative (Normal) Occult Blood 2+ (Abnormal) Ketones Negative (Normal) Glucose Negative (Normal) Protein Negative (Normal) WBC Esterase Negative (Normal) Appearance Clear (Normal) Urine-Color Yellow (Normal) pH 7.0 (Normal) Range: 5.0-7.5 Specific [place] 1.018 (Normal) Range: 1.005-1.030 25-Gab-675525:11 Metabolic Panel, Comments: PATIENT WAS FASTINGPERFORMED BY: [facility]6370 [facility] [id number] Information: [id number] Comprehensive (92298) ALT (SGPT) 14 [iU]/L (Normal) Range: 0-32 [...] Glucose, Serum 91 mg/dL (Normal) Range: 65-99 08-Rin-494604:11 TSH (49485) Comments: PATIENT WAS FASTINGPERFORMED BY: [facility] Vnwohb9649 [facility] [id number] TSH 2.260 {uIU/mL} (Normal) Range: 0.450-4.500 :17 Prothrombin Time w/INR Comments: [facility] [address] [place], [place], [address] INR 2.8 (Normal) PROTIME 28.4 s (Abnormal) Range: 11.7-14.9 :40 Lipid Profile Comments: [facility] [address] [place], [place], [address] VLDL 22 mg/dL (Normal) Range: 5-40 LDL [...] mg/dL High Risk :40 Liver Profile Comments: [facility] L[address]abwn[address] [place], [place], [address] D BILI 0.10 mg/dL (Normal) Range: 0.00-0.30 T BILI 0.60 mg/dL (Normal) Range: 0.20-1.00 ALT 26 U/L (Normal) Range: 12-78 ALK P 86 U/L (Normal) Range: 50-136 AST 20 U/L (Normal) Range: 15-37 GLOB 3.4 g/dL (Normal) Range: 2.3-3.5 ALB 3.9 g/dL (Normal) Range: 3.4-5.0 T PROT 7.3 g/dL (Normal) Range: 6.4-8.2 :26 Prothrombin Time w/INR Comments: [facility] [address] [place], [place], [address] INR 2.6 (Normal) Comments: ADDENDA: handled by cardio PROTIME 27.3 s (Abnormal) Range: 11.7-14.9 :40 Prothrombin Time w/INR Comments: [facility] Ey[address] [place], [address] INR 2.4 (Normal) PROTIME 26.4 s (Abnormal) Range: 11.7-14.9 2-Ppb-681870:03 Prothrombin Time w/INR Comments: [facility] [address]jxdganciz[address] [place], [address] ; per pop up in EMR cardio manages INR INR 2.2 (Normal) PROTIME 24.5 s (Abnormal) Range: 11.7-14.9 04-Owd-465215:51 Prothrombin Time w/INR Comments: [place] [address] [address] [place], [address] INR 1.6 (Normal) PROTIME 19.0 s (Abnormal) Range: 11.7-14.9 Comments: ADDENDA: managed by cardio :33 Prothrombin Time w/INR Comments: [facility] Zmpbghkxhn[address] [place], [address] ; handled by cardio INR 2.1 (Normal) PROTIME 24.0 s (Abnormal) Range: 11.7-14.9 81-Unb-241335:02 Prothrombin Time w/INR Comments: [place] [address] [place], [address] INR 2.2 (Normal) PROTIME 24.1 s (Abnormal) Range: 11.7-14.9 03-Ioe-220923:37 Prothrombin Time w/INR Comments: [facility] [address] [place], [address] INR 2.5 (Normal) PROTIME 26.7 s (Abnormal) Range: 11.7-14.9 :44 Prothrombin Time w/INR Comments: [place] [address] [address] [place], [place], [address] INR 2.2 (Normal) PROTIME 24.6 s (Abnormal) Range: 11.7-14.9 73-Dwo-411735:15 Prothrombin Time w/INR Comments: [facility] [address]juhkugojz[address] [place], [place], [address] INR 1.6 (Normal) PROTIME 19.4 s (Abnormal) Range: 11.7-14.9 :36 Prothrombin Time w/INR Comments: [facility] [address]tyfrvs[address] [place], [place], [address] INR 1.2 (Normal) PROTIME 15.3 s (Abnormal) Range: 11.7-14.9 :02 Prothrombin Time w/INR Comments: [address] [place], [place], [address] INR 2.7 (Normal) PROTIME 29.0 s (Abnormal) Range: 11.7-14.9 :47 Lipid Profile Comments: [facility] [address] [place], [place], [address] VLDL 20 mg/dL (Normal) Range: 5-40 LDL [...] mg/dL High Risk :47 Liver Profile Comments: [facility] Gmcuvsplhr[address] [place], [place], [address] D BILI 0.09 mg/dL (Normal) Range: 0.00-0.30 T BILI 0.40 mg/dL (Normal) Range: 0.20-1.00 ALT 26 U/L (Normal) Range: 12-78 ALK P 86 U/L (Normal) Range: 50-136 AST 24 U/L (Normal) Range: 15-37 GLOB 3.3 g/dL (Normal) Range: 2.3-3.5 ALB 4.0 g/dL (Normal) Range: 3.4-5.0 T PROT 7.3 g/dL (Normal) Range: 6.4-8.2 5-Epm-774466:11 CBC, Platelets & Auto Diff Comments: PATIENT NOT FASTINGPERFORMED BY: [facility] Fkoumz6605 [facility] [id number] Information: [id number] (44962) Immature Grans (Abs) 0.0 {x10E3/uL} (Normal) Range: [...] 3.77-5.28 WBC 6.2 {x10E3/uL} (Normal) Range: 3.4-10.8 8-Ljb-389920:11 CALCIFEDIOL (58409) Comments: PATIENT NOT FASTINGPERFORMED BY: [facility]6370 [facility] [id number] Vitamin D, 25-Hydroxy 38.9 ng/mL (Normal) Range: 30.0-100.0 Comments: Vitamin D deficiency has been defined by the [place] of[facility] Regional Medical Centercine and an Endocrine Society practice guideline as alevel of serum 25-OH vitamin D less than 20 ng/mL (1,2).The Endocrine Society went on to further define vitamin Dinsufficiency as a level between 21 and 29 ng/mL (2).1. IOM ([place] of Medicine). 2010. Dietary reference intakes for calcium and D. [place]: The National Academies Press.2. Roberto MF, Brody OCHOA, Maribell CADENA, et al. Evaluation, treatment, and prevention of vitamin D deficiency: an Endocrine Society clinical practice guideline. JCEM. 2010; 96(7):1911-30. 8-Zlh-893315:11 VITAMIN B12 AND FOLATES Comments: PATIENT NOT FASTINGPERFORMED BY: [facility]6370 [facility] [id number] (36647) Folate (Folic Acid), Serum 10.4 ng/mL (Normal) Comments: A serum folate concentration of less than 3.1 ng/mL isconsidered to represent clinical deficiency. Vitamin B12 1651 pg/mL (Abnormal) Range: 211-946 7-Xkh-519520:11 Metabolic Panel, Comprehensive Comments: PATIENT NOT FASTINGPERFORMED BY: [facility]6370 [facility] [id number] (05547) ALT (SGPT) 15 [iU]/L (Normal) Range: 0-32 [...] Range: 65-99 09-May-20159:53 Prothrombin Time w/INR Comments: [facility] Euq[address]shsnbu2299 [place], [address] INR 1.9 (Normal) PROTIME 22.0 s (Abnormal) Range: 11.7-14.9 90-Ozl-921590:40 Prothrombin Time w/INR Comments: Test performed at:[facility] Prpagoptkn9061 [facility] [place] [address] INR 1.3 (Normal) PROTIME 16.3 s (Abnormal) Range: 11.7-14.9 15-Ivg-092095:03 Prothrombin Time w/INR Comments: Test performed at:[facility] Gyosghuwnx7243 [facility] [place] [address] INR 1.7 (Normal) PROTIME 20.4 s (Abnormal) Range: 11.7-14.9 7-Lhw-928608:26 Prothrombin Time w/INR Comments: Test performed at:[facility] Ogrdtygurb6955 [facility] [place] [address] INR 1.2 (Normal) Comments: ADDENDA: managed by dr paz PROTIME 15.8 s (Abnormal) Range: 11.7-14.9 09-Swe-098546:28 Prothrombin Time w/INR Comments: Test performed at:[facility] [address] [place] [phone] INR 1.2 (Normal) PROTIME 15.8 s (Abnormal) Range: 11.7-14.9 :54 Prothrombin Time w/INR Comments: Test performed at:[facility] [address] [place] [address] INR 2.5 (Normal) PROTIME 27.3 s (Abnormal) Range: 11.7-14.9 8-Gtm-144828:16 Prothrombin Time w/INR Comments: Test performed at:[facility] [address] [place] [address] INR 2.0 (Normal) PROTIME 23.2 s (Abnormal) Range: 11.7-14.9 13-Gwl-000678:29 Prothrombin Time w/INR Comments: Test performed at:[facility] [address] [place] [address] INR 2.8 (Normal) PROTIME 29.3 s (Abnormal) Range: 11.7-14.9 82-Jwq-766051:06 Prothrombin Time w/INR Comments: Test performed at:[facility] [address] [place] [address] ; Dr Bella manages INR 2.1 (Normal) PROTIME 24.0 s (Abnormal) Range: 11.7-14.9 :45 Prothrombin Time w/INR Comments: Test performed at:[facility] [address] [place] [address] ; ordered by another INR 1.3 (Normal) PROTIME 16.5 s (Abnormal) Range: 11.7-14.9 :00 Prothrombin Time w/INR Comments: Test performed at:[facility] [address]uns[address] [place], [place] [address] INR 0.9 (Normal) PROTIME 12.7 s (Normal) Range: 11.7-14.9 :05 Vitamin B12 and Folate Comments: PATIENT NOT FASTINGPERFORMED BY: [facility] CenterKtqidw4300 [facility] [id number] Information: [id number] Folate (Folic Acid), 7.8 ng/mL (Normal) Comments: A serum folate concentration of less than 3.1 ng/mL isconsidered to represent clinical deficiency. Serum Vitamin B12 1883 pg/mL Range: 211-946 (Abnormal) : Vitamin D, 42.8 ng/mL (Normal) Comments: PATIENT NOT FASTINGPERFORMED BY: [facility]6370 [facility] [id number] 05 25-Hydroxy Range: 30.0-100.0 Comments: Vitamin D deficiency has been defined by the [place] of[place]icine and an Endocrine Society practice guideline as alevel of serum 25-OH vitamin D less than 20 ng/mL (1,2).The Endocrine Society went on to further define vitamin Dinsufficiency as a level between 21 and 29 ng/mL (2).1. IOM ([place] of Medicine). 2010. Dietary reference intakes for calcium and D. [place]: The National Academies Press.2. Roberto MF, Brody [place], Maribell CADENA, et al. Evaluation, treatment, and prevention of vitamin D deficiency: an Endocrine Society clinical practice guideline. JCEM. 2010; 96(7):1911-30. 55-Aml-274875:04 CBC W/Diff, Automated Comments: Test performed at:[facility] [address]kh[address] [place], [place] [phone] Absolute Lymph 2.41 {X10_3/ul} (Normal) Range: 0.83-4.51 [...] 4.2-5.4 WBC 6.5 K/mm3 (Normal) Range: 4.4-11.0 [id number] Basic Metabolic Profile (BMP) Comments: Test performed at:[facility] [id number] [place] [id number] GAP 4 (Abnormal) Range: 5-15 CO2 33.0 mmol/L (Abnormal) Range: 21.0-32.0 CL 103 mmol/L (Normal) Range: 98-107 K 4.8 mmol/L (Normal) Range: 3.5-5.1 NA 140 mmol/L (Normal) Range: 136-145 CA 8.8 mg/dL (Normal) Range: 8.5-10.1 BUN/CRE 25.8 {RATIO} (Abnormal) Range: 10-20 CREAT,SERUM 1.2 mg/dL (Abnormal) Range: 0.6-1.0 BUN 31 mg/dL (Abnormal) Range: 7-18 GLU 108 mg/dL (Normal) Range: 70-110 [id number]-Fis-[id number] Basic Metabolic Profile (BMP) Comments: Test performed at:[facility] [id number] [place] [address] GAP 4 (Abnormal) Range: 5-15 CO2 28.0 mmol/L (Normal) Range: 21.0-32.0 CL 106 mmol/L (Normal) Range: 98-107 K 4.3 mmol/L (Normal) Range: 3.5-5.1 NA 138 mmol/L (Normal) Range: 136-145 CA 8.8 mg/dL (Normal) Range: 8.5-10.1 BUN/CRE 26.0 {RATIO} (Abnormal) Range: 10-20 CREAT,SERUM 1.0 mg/dL (Normal) Range: 0.6-1.0 BUN 26 mg/dL (Abnormal) Range: 7-18 GLU 93 mg/dL (Normal) Range: 70-110 [id number]-Alc-[id number]:45 CBC W/Diff, Automated Comments: Test performed at:[facility] [id number] [place] [address] Absolute Lymph 2.60 {X10_3/ul} (Normal) [...] 4.2-5.4 WBC 6.5 K/mm3 (Normal) Range: 4.4-11.0 85-Wec-[id number] Lipid Profile Comments: Specimen slightly hemolyzed. Results may be affected.Test performed at:[facility] [address] [place] [address] VLDL 19 mg/dL (Normal) Range: 5-40 LDL [...] 200-240 mg/dL Borderline >240 mg/dL High Risk 15-Vda-075079:07 Liver Profile Comments: Specimen slightly hemolyzed. Results may be affected.Test performed at:[facility] [address] [facility] [place], [place] [address] D BILI < 0.05 mg/dL (Normal) Range: [...] CHOL 226 mg/dL (Abnormal) Comments: <200 mg/dL Thmzbzzsl457-216 mg/dL Borderline>240 mg/dL High Risk :47 LIVER [...] :47 TSH 3.05 {uIU/mL} (Normal) Range: 0.358-3.74 01-Vop-409156:00 LORNA CULTURE-OTHER (67844) Comments: PATIENT NOT FASTINGPERFORMED BY: [facility] [id number] Information: SRC:THRT [id number] Result 1 RRF (Normal) Comments: Routine respiratory jesus Upper Respiratory Culture Final report (Normal) 30-Sqd-65219:21 Rapid Strep Test, Office (28518) Rapid Strep Test, Office Negative (Normal) 93-Oqi-88918:00 BILAT SCRN DIGITAL & CAD Radiology Report [...] Jones M.D.January 04, 2013 at 10:41:52 AM [phone] Signed GP/GP If you are the referring physician and would like to consult with theradiologist who provided this interpretation, please contact Ne Huang at [phone]. If this radiologist is unavailable, youwill be directed to another radiologist to assist. If you are a patient with a question regarding this report, pleasecontactyour referring physician directly. Professional Interpretation Provided By: [employer], Phone , These documents contain legally protected [...] Comments: PATIENT WAS FASTINGPERFORMED BY: [facility] [id number] Information: [id number] (7) ALT (SGPT) 23 [iU]/L (Normal) Range: 0-32 AST (SGOT) 21 [iU]/L (Normal) Range: 0-40 Alkaline Phosphatase, S 74 [iU]/L (Normal) Range: 25-165 Bilirubin, Direct 0.10 mg/dL Range: 0.00-0.40 (Normal) Albumin, Serum 4.3 g/dL (Normal) Range: 3.5-4.8 Bilirubin, Total 0.3 mg/dL (Normal) Range: 0.0-1.2 Protein, Total, Serum 6.7 g/dL (Normal) Range: 6.0-8.5 Written Authorization WAR (Normal) Comments: PATIENT WAS FASTINGPERFORMED BY: [facility] [id number] :19 Comments: Written Authorization Received.Authorization received from DR BRO 09-20-9500Evgiqw by Rachelle Porter :19 Metabolic Panel, Comprehensive Comments: PATIENT WAS FASTINGPERFORMED BY: [facility] [id number] (88174) ALT (SGPT) 22 [iU]/L (Normal) Range: 0-32 [...] Glucose, Serum 89 mg/dL (Normal) Range: 65-99 6-Dxw-884987:19 CBC with manual diff Comments: PATIENT WAS FASTINGPERFORMED BY: [facility]CoH[facility] CenterMrixqn1618 [facility] [id number] Information: [id number] (39384) Immature Grans (Abs) 0.0 {x10E3/uL} (Normal) Range: [...] 3.77-5.28 WBC 4.6 {x10E3/uL} (Normal) Range: 4.0-10.5 3-Znq-569294:19 Lipid Panel (08095) Comments: PATIENT WAS FASTINGPERFORMED BY: USINE IO [facility] [id number] LDL/HDL Ratio 1.3 {ratio_units} (Normal) Range: 0.0-3.2 Cholesterol, Total 153 mg/dL (Normal) Range: 100-199 HDL Cholesterol 60 mg/dL (Normal) Comments: According to ATP-III Guidelines, HDL-C >59 mg/dL is considered anegative risk factor for CHD. LDL Cholesterol Calc 80 mg/dL (Normal) Range: 0-99 Triglycerides 65 mg/dL (Normal) Range: 0-149 VLDL Cholesterol Hector 13 mg/dL (Normal) Range: 5-40 6-Icr-357687:19 TSH (41123) Comments: PATIENT WAS FASTINGPERFORMED BY: USINE IO [facility] [id number] TSH 2.650 {uIU/mL} (Normal) Range: 0.450-4.500 86-Dth-134916:14 Urinalysis, Office (32421) UA - BILIRUBIN Negative (Normal) UA - BLOOD Hemolyzed Small (Normal) UA - GLUCOSE Negative (Normal) UA - KETONES Negative mg/dL (Normal) UA - LEUKOCYTE ESTERASE Negative (Normal) UA - NITRITE Negative (Normal) UA - PH 7.0 (Normal) UA - PROTEIN Negative mg/dL (Normal) UA - SPECIFIC GRAVITY 1.015 (Normal) URINE UROBILINGN REYNA TIMED Normal mg/dL (Normal) 89-Sue-630399:10 TSH (THYROID STIMULATING Comments: PATIENT WAS FASTINGPERFORMED BY: USINE IO [facility] [id number] HORMONE) (65987) TSH 2.500 {uIU/mL} (Normal) Range: 0.450-4.500 38-Ufq-515433:10 CALCIFEDIOL (55583) Comments: PATIENT WAS FASTINGPERFORMED BY: [facility] [id number] Vitamin D, 25-Hydroxy 48.1 ng/mL (Normal) Range: 30.0-100.0 Comments: Vitamin D deficiency has been defined by the [place] of[place] and an Endocrine Society practice guideline as alevel of serum 25-OH vitamin D less than 20 ng/mL (1,2).The Endocrine Society went on to further define vitamin Dinsufficiency as a level between 21 and 29 ng/mL (2).1. IOM ([place]). 2010. Dietary reference intakes for calcium and D. [place]: The National Academies Press.2. Roberto MF, Brody [place], Maribell CADENA, et al. Evaluation, treatment, and prevention of vitamin D deficiency: an Endocrine Society clinical practice guideline. JCEM. 2010; 96(7):1911-30. 45-Xdj-096446:10 Lipid Panel (68910) Comments: PATIENT WAS FASTINGPERFORMED BY: [facility] [id number] LDL/HDL Ratio 2.3 {ratio_units} (Normal) Range: 0.0-3.2 LDL Cholesterol Calc 117 mg/dL (Abnormal) Range: 0-99 VLDL Cholesterol Hector 16 mg/dL (Normal) Range: 5-40 HDL Cholesterol 52 mg/dL (Normal) Comments: According to ATP-III Guidelines, HDL-C >59 mg/dL is considered anegative risk factor for CHD. Triglycerides 78 mg/dL (Normal) Range: 0-149 Cholesterol, Total 185 mg/dL (Normal) Range: 100-199 32-Miw-977597:10 HEPATIC FUNCTION PANEL Comments: PATIENT WAS FASTINGPERFORMED BY: [facility] [id number] Information: [id number] (53400) ALT (SGPT) 21 [iU]/L (Normal) Range: 0-40 AST (SGOT) 20 [iU]/L (Normal) Range: 0-40 Alkaline Phosphatase, S 75 [iU]/L (Normal) Range: 25-165 Bilirubin, Direct 0.09 mg/dL (Normal) Range: 0.00-0.40 Albumin, Serum 4.0 g/dL (Normal) Range: 3.5-4.8 Bilirubin, Total 0.3 mg/dL (Normal) Range: 0.0-1.2 Protein, Total, Serum 6.5 g/dL (Normal) Range: 6.0-8.5 :41 TSH (95137) Comments: PATIENT NOT FASTINGPERFORMED BY: [facility]coAl[facility] Indian Dental ClinicYajpzh[address] [place] [address] [id number] Information: [id number] TSH 3.750 {uIU/mL} (Normal) Range: 0.450-4.500 :39 Prothrombin Time (PT) Comments: PERFORMED BY: [address]co[address] [id number] Prothrombin Time 39.0 {sec} (Abnormal) Range: 8.7-11.5 INR 3.6 (Abnormal) Range: 0.8-1.2 Comments: Client Requested Flag Reference interval is for non- anticoagulated patients. . Suggested INR therapeutic ra nge for Vitamin K antagonist therapy: Standard Dose (moderate intensity therapeutic range): 2.0 - 3.0 Higher intensity therapeutic range 2.5 - 3.5 :26 PT (PROTHROMBIN TIME) Comments: PATIENT NOT FASTINGPERFORMED BY: [facility] PowerAndrew [place] 9[address]18[address] [facility] [id number] Information: [id number] CC:[id number] (81956) Prothrombin Time 54.3 {sec} (Abnormal) Range: 8.7-11.5 [...] (Activated Partial Comments: PATIENT NOT FASTINGPERFORMED BY: [place] [address] [facility] [id number] Thromboplastin Time) (94756) aPTT 39 {sec} (Abnormal) Range: 24-33 Comments: This test has not been validated for monitoring unfractionated heparintherapy. aPTT-based therapeutic ranges for unfractionated heparintherapy have not been established. For general guidelines onHeparin monitoring, refer to the [facility] of Services. :51 PT (Prothrobim Time) Comments: PATIENT NOT FASTINGPERFORMED BY: [place] [address] [facility] [id number] Information: [id number] CC:[id number] (85871) Prothrombin Time 26.1 {sec} (Abnormal) Range: 8.7-11.5 INR 2.4 (Abnormal) Range: 0.8-1.2 Comments: Reference interval is for non-anticoagulated patients. . Suggested INR therapeutic range for Vitamin K anta gonist therapy: Standard Dose (moderate intensity therapeutic range): 2.0 - 3.0 Higher intensity therapeutic range 2.5 - 3.5 :43 HEPATIC FUNCTION PANEL Comments: PATIENT NOT FASTINGPERFORMED BY: [facility] [id number] Information: [id number] (92367) ALT (SGPT) 25 [iU]/L (Normal) Range: 0-40 AST (SGOT) 19 [iU]/L (Normal) Range: 0-40 Alkaline Phosphatase, S 73 [iU]/L (Normal) Range: 25-165 Albumin, Serum 4.4 g/dL (Normal) Range: 3.5-4.8 Bilirubin, Direct 0.09 mg/dL (Normal) Range: 0.00-0.40 Bilirubin, Total 0.3 mg/dL (Normal) Range: 0.0-1.2 Protein, Total, Serum 6.4 g/dL (Normal) Range: 6.0-8.5 :18 Lipid Panel (68384) Comments: PATIENT NOT FASTINGPERFORMED BY: [facility] [id number] LDL/HDL Ratio 1.3 {ratio_units} (Normal) Range: 0.0-3.2 [...] FUNCTION PANEL Comments: PATIENT NOT FASTINGPERFORMED BY: [facility] [id number] Information: [id number] (54105) ALT (SGPT) 60 [iU]/L (Abnormal) Range: 0-40 Alkaline Phosphatase, S 66 [iU]/L (Normal) Range: 25-165 AST (SGOT) 43 [iU]/L (Abnormal) Range: 0-40 Albumin, Serum 4.3 g/dL (Normal) Range: 3.5-4.8 Bilirubin, Direct 0.10 mg/dL (Normal) Range: 0.00-0.40 Bilirubin, Total 0.3 mg/dL (Normal) Range: 0.0-1.2 Protein, Total, Serum 6.7 g/dL (Normal) Range: 6.0-8.5 :18 CALCIFEDIOL (69688) Comments: PATIENT NOT FASTINGPERFORMED BY: [facility] [id number] Vitamin D, 25-Hydroxy 57.3 ng/mL (Normal) Range: 32.0-100.0 Comments: Recent studies consider the lower limit of 32.0 ng/mL to be athreshold for optimal health.Baljit HOWELL. J Nutr. 2004;135(2):317-22. 6-Bsz-182892:49 Urinalysis, Office (50568) UA - BILIRUBIN Negative (Normal) UA - BLOOD Hemolyzed Moderate (Normal) UA - GLUCOSE Negative (Normal) UA - KETONES Negative mg/dL (Normal) UA - LEUKOCYTE ESTERASE Negative (Normal) UA - NITRITE Negative (Normal) UA - PH 7.5 (Normal) UA - PROTEIN Negative mg/dL (Normal) UA - SPECIFIC GRAVITY 1.015 (Normal) URINE UROBILINGN REYNA TIMED Normal mg/dL (Normal) 57-Ogf-666110:38 Urinalysis, Office (99030) UA - BILIRUBIN Negative (Normal) UA - BLOOD Hemolyzed Small (Normal) UA - GLUCOSE Negative (Normal) UA - KETONES Negative mg/dL (Normal) UA - LEUKOCYTE ESTERASE Negative (Normal) UA - NITRITE Negative (Normal) UA - PH 7.5 (Normal) UA - PROTEIN Negative mg/dL (Normal) UA - SPECIFIC GRAVITY 1.015 (Normal) URINE UROBILINGN REYNA TIMED 2 mg/dL (Normal) 53-Ozr-77239:47 Metabolic Panel, Basic Comments: PATIENT NOT FASTINGPERFORMED BY: [facility]CoH[facility] CenterZnynuv9624 [facility] [id number] Information: [id number] (68910) Calcium, Serum 9.6 mg/dL (Normal) Range: 8.6-10.2 [...] CULTURE-REYNA COL Comments: PATIENT NOT FASTINGPERFORMED BY: idio70 [facility] [id number] Information: SRC:UR [id number] COUNT (95997) Result 1 NG36 (Normal) Comments: No growth in 36 - 48 hours. Urine Culture,Comprehensive Final report (Normal) :29 Urinalysis, Office (37649) UA - BILIRUBIN Negative (Normal) UA - BLOOD Non Hemolyzed Moderate (Normal) UA - GLUCOSE Negative (Normal) UA - KETONES Negative mg/dL (Normal) UA - LEUKOCYTE ESTERASE Trace (Normal) UA - NITRITE Negative (Normal) UA - PH 6.0 (Normal) UA - PROTEIN Negative mg/dL (Normal) UA - SPECIFIC GRAVITY 1.020 (Normal) URINE UROBILINGN REYNA TIMED Normal mg/dL (Normal) 80-Vfn-155347:44 Microscopic Examination Comments: PATIENT WAS FASTINGPERFORMED BY: [facility]6370 [facility] [id number] Bacteria Few (Normal) Mucus Threads Present (Normal) Epithelial Cells (non renal) 0-10 {/hpf} (Normal) Range: 0 - 10 RBC 0-3 {/hpf} (Normal) Range: 0 - 3 WBC 0-5 {/hpf} (Normal) Range: 0 - 5 93-Weh-413780:44 CALCIFIDIOL (01427) VIT D 25 Comments: PATIENT WAS FASTINGPERFORMED BY: [employer] Cbjzqb1229 [facility] [id number] Vitamin D, 25-Hydroxy 28.6 ng/mL (Abnormal) Range: 32.0-100.0 Comments: Recent studies consider the lower limit of 32.0 ng/mL to be athreshold for optimal health.Baljit HOWELL. J Nutr. 2004;135(2):317-22. 97-Ejw-595504:44 Folate (73508) Comments: PATIENT WAS FASTINGPERFORMED BY: [facility] [place] [id number] Folate (Folic Acid), Serum 12.2 ng/mL (Normal) Comments: Indeterminate: 2.2 - 3.0 Deficient: <2.2 11-Yrz-780301:44 VITAMIN B-12 (CYANOCOBALAMIN) Comments: PATIENT WAS FASTINGPERFORMED BY: [facility] [id number] (83630) Vitamin B12 351 pg/mL (Normal) Range: 211-946 94-Mdr-856386:44 SED RATE ERYTHROCYTE (94345) Comments: PATIENT WAS FASTINGPERFORMED BY: [facility] [id number] Sedimentation Rate-Westergren 2 mm/h (Normal) Range: 0-30 40-Dck-207453:44 RHEUMATOID FACTOR-QUANT (05663) Comments: PATIENT WAS FASTINGPERFORMED BY: [facility] [place] [id number] RA Latex Turbid. 10.5 {IU/mL} (Normal) Range: 0.0-13.9 48-Ini-121823:44 C-REACTIVE PROTEIN (00410) Comments: PATIENT WAS FASTINGPERFORMED BY: [facility] [id number] C-Reactive Protein, Quant 0.9 mg/L (Normal) Range: 0.0-4.9 19-Jcx-629302:44 JOANNA (ANTINUCLEAR ANTIBODY) Comments: PATIENT WAS FASTINGPERFORMED BY: [facility] [id number] (27867) JOANNA Direct Negative (Normal) 88-Nsa-050224:44 LIPID PANEL (67628) Comments: PATIENT WAS FASTINGPERFORMED BY: [facility] [place] [id number] LDL Cholesterol Calc 140 mg/dL (Abnormal) Range: 0-99 LDL/HDL Ratio 1.8 {ratio_units} (Normal) Range: 0.0-3.2 HDL Cholesterol 77 mg/dL (Normal) Comments: According to ATP-III Guidelines, HDL-C >59 mg/dL is considered anegative risk factor for CHD. VLDL Cholesterol Hector 19 mg/dL (Normal) Range: 5-40 Triglycerides 97 mg/dL (Normal) Range: 0-149 Cholesterol, Total 236 mg/dL (Abnormal) Range: 100-199 :44 TSH (17588) Comments: PATIENT WAS FASTINGPERFORMED BY: [facility]Al[facility] ClinicJleies3935 [facility] [id number] TSH 1.670 {uIU/mL} (Normal) Range: 0.450-4.500 :44 URINALYSIS, W/ MICRO (62278) Comments: PATIENT WAS FASTINGPERFORMED BY: [facility] [id number] Microscopic Examination See below: (Normal) Bilirubin Negative (Normal) Ketones Negative (Normal) Nitrite, Urine Negative (Normal) Occult Blood 1+ (Abnormal) Urobilinogen,Semi-Qn 0.2 mg/dL (Normal) Range: 0.0-1.9 Glucose Negative (Normal) Protein Negative (Normal) Appearance Clear (Normal) pH 7.0 (Normal) Range: 5.0-7.5 Urine-Color Yellow (Normal) WBC Esterase Negative (Normal) Specific [place] 1.016 (Normal) Range: 1.005-1.030 :44 MICROALBUMIN: CREATININE RATIO Comments: PATIENT WAS FASTINGPERFORMED BY: [facility]coH[facility]don Medical CenterAbhvcd8821 [facility] [id number] (26460) AND (36987) Microalb/Creat Ratio 2.8 {mg/g_creat} (Normal) Range: 0.0-30.0 Creatinine, Urine 61.0 mg/dL (Normal) Range: 15.0-278.0 Microalbumin, Urine 1.7 ug/mL (Normal) Range: 0.0-17.0 :44 METABOLIC PANEL, COMPREHENSIVE Comments: PATIENT WAS FASTINGPERFORMED BY: [facility] [id number] (51544) ALT (SGPT) 16 [iU]/L (Normal) Range: 0-40 [...] Glucose, Serum 92 mg/dL (Normal) Range: 65-99 96-Vii-949405:44 CBC WITH MANUAL DIFF Comments: PATIENT WAS FASTINGPERFORMED BY: [facility]CoH[facility] CenterUhtigu4998 [facility] [id number] Information: [id number] (99808) Immature Grans (Abs) 0.0 {x10E3/uL} (Normal) Range: [...] 3.80-5.10 WBC 6.1 {x10E3/uL} (Normal) Range: 4.0-10.5 86-Qnn-346534:11 BILAT [facility] DIGITAL & CAD Radiology Report See Note (Normal) Comments: Exam Number: [id number] MAMMOGRAPHY - BILATERAL SCREENING INDICATION:Routine annual screening [...] of attaching a ResultCode to this exam.ADDENDUM: [id number] HPBI/MDS Reported By: ELEANOR ERNANDEZ M.D. 9-Nqr-218868:01 TSH (74725) Comments: PATIENT NOT FASTINGPERFORMED BY: CB [facility] Szgrjk5551 [facility] [id number] Information: [id number] TSH 0.474 {uIU/mL} (Normal) Range: 0.450-4.500 16-Apr-20108:21 Thin prep Pap (50311) Comments: of cuff, has had hysterectomy; Source.............VaginalLMP / Prev Treat...HystNo. of containers..01 CYTYC Thin Prep VialPATIENT NOT FASTINGPERFORMED BY: [facility] [address] [id number] Information: [id number] Note: PAPSMR (Normal) Comments: The Pap smear [...] hysterectomy.V72.31 ; Routine gynecological exami Davion Mosley Dietetic Aide (ASCP) 08-Pac-161281:57 ABDOMEN/PELVIS W/WO CONTRAST Radiology Report See Note (Normal) Comments: Exam Number: [id number] CLINICAL:Hydronephrosis CT ABDOMEN AND PELVIS WITHOUT / [...] theright-sided hydronephrosis. Reported By: SAVANA AVELAR M.D. 2-Wru-144449:44 Urinalysis, Office (72418) UA - LEUKOCYTE ESTERASE Negative (Normal) UA - NITRITE Negative (Normal) URINE UROBILINGN REYNA TIMED Normal mg/dL (Normal) UA - PROTEIN Negative mg/dL (Normal) UA - PH 6.5 (Normal) UA - BLOOD Hemolyzed Trace (Normal) UA - SPECIFIC GRAVITY 1.010 (Normal) UA - KETONES Negative mg/dL (Normal) UA - BILIRUBIN Negative (Normal) UA - GLUCOSE Negative (Normal) 34-Ter-214713:45 KIDNEY (HP) Radiology Report See Note (Normal) Comments: Exam Number: [id number] CLINICAL:The patient is a 69-year-old female who [...] no hydronephrosis Reported By: ELEANOR ERNANDEZ M.D. 66-Jii-864009:14 BMP BUN/CRE 17.8 {RATIO} (Normal) Range: 10-20 [...] (Normal) GLU 90 mg/dL (Normal) Range: 70-110 51-Riq-535888:52 Iron and TIBC Comments: PATIENT NOT FASTINGPERFORMED BY: [facility] Yqmhns9010 [facility] [id number] Iron Saturation 21 % (Normal) Range: 15-55 Iron, Serum 55 ug/dL (Normal) Range: 35-155 UIBC 202 ug/dL (Normal) Range: 150-375 Iron Bind.Cap.(TIBC) 257 ug/dL (Normal) Range: 250-450 96-Axf-755112:52 Renal function Panel (90964) Comments: PATIENT NOT FASTINGPERFORMED BY: [facility] Hifiym3191 [facility] [id number] Albumin, Serum 3.7 g/dL (Normal) Range: 3.5-4.8 [...] Glucose, Serum 91 mg/dL (Normal) Range: 65-99 37-Rte-194518:52 Ferritin (64365) Comments: PATIENT NOT FASTINGPERFORMED BY: [facility] Ivyvqg5349 [facility] [id number] Ferritin, Serum 338 ng/mL (Abnormal) Range: 13-150 :52 CBC with manual diff Comments: PATIENT NOT FASTINGPERFORMED BY: [place] 1937270 [facility] [id number] Information: [id number] (44973) Baso (Absolute) 0.0 {x10E3/uL} (Normal) Range: 0.0-0.2 [...] 3.80-5.10 WBC 7.9 {x10E3/uL} (Normal) Range: 4.0-10.5 67-Juf-867753:20 TSH (24467) Comments: PATIENT NOT FASTINGPERFORMED BY: [facility] [id number] TSH 0.830 {uIU/mL} (Normal) Range: 0.450-4.500 48-Nah-920665:20 CBC with manual diff Comments: PATIENT NOT FASTINGPERFORMED BY: LabCoBriana Ville 2945170 [facility] [id number] Information: [id number] (23898) Hematology Comments: Note: (Normal) Comments: Verified by [...] 3.80-5.10 WBC 21.6 {x10E3/uL} (Abnormal) Range: 4.0-10.5 69-Jwg-252731:58 Serum Protein Comments: PATIENT NOT FASTINGPERFORMED BY: [facility]CoH[facility]don [facility] CenterJeonut3596 [facility] [id number] Information: ADD [id number] NO DRAW FEE Electrophoresis (SPEP) (81869) A/G Ratio 1.6 (Normal) Range: 0.7-2.0 Please note: SPRCS (Normal) Comments: Protein electrophoresis scan will follow via computer, mail, orcourier delivery. Usaky-2-Hbwnjyyc 0.2 g/dL (Normal) Range: 0.1-0.4 Pspfs-0-Avpkzasq 0.6 g/dL (Normal) Range: 0.4-1.2 Beta Globulin 0.9 g/dL (Normal) Range: 0.6-1.3 Gamma Globulin 0.9 g/dL (Normal) Range: 0.5-1.6 Globulin, Total 2.6 g/dL (Normal) Range: 2.0-4.5 M-Slim Not Observed g/dL (Normal) Albumin 4.2 g/dL (Normal) Range: 3.2-5.6 Protein, Total, Serum 6.8 g/dL (Normal) Range: 6.0-8.5 75-Ugb-111969:58 VITAMIN B-12 (CYANOCOBALAMIN) Comments: PATIENT NOT FASTINGPERFORMED BY: [employer] Hoboep2367 [facility] [id number] (44308) Vitamin B12 300 pg/mL (Normal) Range: 211-911 67-Hsu-678028:58 SED RATE ERYTHROCYTE (69069) Comments: PATIENT NOT FASTINGPERFORMED BY: [facility] MediaAlbuquerque Indian Dental ClinicXrskcg2523 [facility] [id number] Sedimentation Rate-Westergren 2 mm/h (Normal) Range: 0-30 59-Mrb-226075:20 CBC With Differential/Platelet Comments: PATIENT WAS FASTINGPERFORMED BY: [employer] Pbkosq7992 [facility] [id number] Baso (Absolute) 0.1 {x10E3/uL} (Normal) Range: 0.0-0.2 [...] 3.80-5.10 WBC 5.4 {x10E3/uL} (Normal) Range: 4.0-10.5 37-Mmn-373124:20 Comp. Metabolic Panel (14) Comments: PATIENT WAS FASTINGPERFORMED BY: [facility]CoH[facility]don Medical CenterBcxjkt0481 [facility] [id number] ALT (SGPT) 19 [iU]/L (Normal) Range: 0-40 [...] With LDL/HDL Comments: PATIENT WAS FASTINGPERFORMED BY: idio70 [facility] [id number] Ratio HDL Cholesterol 66 mg/dL (Normal) Comments: [...] 1.050 {uIU/mL} Comments: PATIENT WAS FASTINGPERFORMED BY: idio70 [facility] hospital [id number] :20 (Normal) Range: 0.450-4.500 :50 CBCD,SMEAR DIFF [...] 47-70 WBC 6.7 K/mm3 (Normal) Range: 4.4-11.0 20-Qkt-11203:50 COMP METABOLIC A/G 1.1 {RATIO} (Normal) Range: [...] Report See Note (Normal) Comments: Exam Number: [id number] MAMMOGRAM, BILATERAL SCREENING DIGITAL AND CAD HISTORYRoutine [...] mammograms werealso examined with computer-aided detection software ([employer], [employer], [employer].). Reported By: ELEANOR ERNANDEZ M.D. :28 CBCD,SMEAR [...] 47-70 WBC 5.4 K/mm3 (Normal) Range: 4.4-11.0 27-Lkk-29850:28 COMP METABOLIC A/G 1.2 {RATIO} (Normal) Range: [...] :28 TSH 0.38 {uIU/mL} (Normal) Range: 0.34-4.82 7-Wiu-469696:04 Rapid Strep Test, Office (54695) Rapid Strep Test, Office Negative (Normal) 40-Msd-061071:34 BILAT SCRN DIGITAL & CAD Radiology Report See Note (Normal) Comments: Exam Number: [id number] MAMMOGRAM, BILATERAL SCREENING DIGITAL AND CAD HISTORYRoutine [...] mammograms werealso examined with computer-aided detection software ([employer], [employer], [employer] Reported By: ELEANOR ERNANDEZ M.D. 47-Vnk-911317:31 DEXA BONE DENSITY STUDY () Radiology Report See Note (Normal) Comments: Exam Number: [id number] BONE DENSITOMETRY HISTORYPostmenopausal. TECHNIQUE Bone densitometry of [...] withinnormal limits. Reported By: ELEANOR ERNANDEZ M.D. 00-Uxy-813885:39 COMP METABOLIC A/G 1.1 {RATIO} (Normal) Range: [...] : Follow up in 3 months with [facility] Indication: Hypertensive heart disease Hematuria, unspecified [...] Gen Med in Sep 2010 make apt [facility] per pt request Indication: Hydronephrosis Hydronephrosis : Follow up for well woman with [facility] per pt request Indication: Hydronephrosis Anemia : FOLLOW UP IN 2 WEEKS January 07 by [facility] Indication: Anemia Abdominal pain, acute, generalized : FOLLOW UP IN 1 WEEK with [facility] Indication: Abdominal pain, acute, generalized Diarrhea [...] Indication: Bronchitis Planned Observations Metabolic Panel, Comprehensive ([id number])Indication: Hypercholesterolemia On: 4-Ecb-[id number] Request Comments: Jun 2018 LIPID PANEL ([id number])Indication: Hypercholesterolemia On: 9-Jhg-278504:51 Request Comments: Jun 2018 URINALYSIS ([id number])Indication: Hypertension, essential, benign On: 95-Ngq-121228:52 Request MICROALBUMIN: CREATININE RATIO ([id number]) AND ([id number])Indication: Hypertension, essential, benign On: 28-Dxb-880807:52 Request Metabolic Panel, Comprehensive ([id number])Indication: Hypertension, essential, benign On: 18-Eac-126740:50 Request Comments: send to [facility] CBC, Platelets & Auto Diff ([id number])Indication: Hypertension, essential, benign On: 63-Cwa-236949:50 Request Comments: send to [facility] TSH ([id number])Indication: Hypothyroidism On: 60-Fbh-135720:50 Request Comments: send to [facility] LIPID PANEL ([id number])Indication: Hypercholesterolemia On: 62-Lai-219360:50 Request Comments: send to [facility] URINALYSIS ([id number])Indication: Hypertension, essential, benign On: 6-Ygi-188050:03 Request Comments: today MICROALBUMIN: CREATININE RATIO ([id number]) AND ([id number])Indication: Hypertension, essential, benign On: 1-Tsj-067772:03 Request Comments: today TSH (95213)Indication: Hypothyroidism On: 8-Rxe-670221:03 Request Comments: Jul 2017 MICROALBUMIN: CREATININE RATIO (11853) AND (25230)Indication: Hypertension, essential, benign On: 41-Ozc-383395:51 Request Comments: Mar 2017 URINALYSIS ([id number])Indication: Hypertension, essential, benign On: 32-Nnt-688833:51 Request Comments: Mar 2017 TSH ([id number])Indication: Hypertension, essential, benign On: 50-Jgd-125213:51 Request Comments: Mar 2017 CBC, Platelets & Auto Diff ([id number])Indication: Hypertension, essential, benign On: 34-Ihw-355117:51 Request Comments: Mar 2017 Metabolic Panel, Comprehensive ([id number])Indication: Hypertension, essential, benign On: 45-Ejy-921355:51 Request TSH (THYROID STIMULATING HORMONE) ([id number])Indication: Hypothyroidism On: 72-Mxd-760413:53 Request HEPATIC FUNCTION PANEL (57903)Indication: Hypertension, essential, benign On: 80-Egu-804171:47 Request VITAMIN B12 AND FOLATES (79070)Indication: Vitamin B 12 deficiency On: 5-Kns-882112:52 Request CALCIFEDIOL (68989)Indication: DEFICIENCY, VITAMIN D NOS On: 4-Dsp-105451:52 Request Urinalysis, Office (97244)Indication: Hematuria, unspecified On: 67-Wag-099636:35 Request MICROALBUMIN URINE QUANT ([id number])Indication: Hypertensive heart disease On: 81-Qnr-877223:25 Request FECAL OCCULT HGB ASSAY- tubes sent home (05652)Indication: Well woman exam On: 3-Utd-103793:51 Request OCCULT BLOOD FECES SCREEN- card done in office (52844)Indication: Well woman exam On: 8-Jwu-230524:51 Request Renal function Panel (07767)Indication: Hydronephrosis On: 1-Rgy-276080:22 Request Iron (24473)Indication: Anemia On: 88-Bhm-776972:39 Request Iron Binding Capacity (TIBC) (92519)Indication: Anemia On: 44-Lvx-404346:39 Request OVA & PARASITE DIR SMEAR (56670)Indication: Diarrhea On: 40-Arg-403975:50 Request OCCULT BLOOD FECES SCREEN (40357)Indication: Diarrhea On: 97-Ysb-721133:50 Request LEUKOCYTE COUNT, FECAL (02453)Indication: Diarrhea On: 60-Jau-271248:50 Request C-DIFFICILE, STOOL (37950)Indication: Diarrhea On: 31-Qwq-361503:50 Request LORNA CULTURE-STOOL (58659)Indication: Diarrhea On: 21-Own-728100:50 Request HEPATIC FUNCTION PANEL (85995)Indication: Hypercholesterolemia On: 32-Ixp-248769:46 Request Lipid Panel (99624)Indication: Hypercholesterolemia On: 32-Mmx-062555:46 Request Comments: in three months (approximately) TSH (31455)Indication: Hypothyroidism On: 71-Iqx-664100:06 Request METABOLIC PANEL, COMPREHENSIVE (01850)Indication: Hypertensive heart disease On: 29-Hbk-769273:06 Request LIPID PANEL (72033)Indication: Hypertensive heart disease On: 07-Kqq-245997:06 Request CBC WITH MANUAL DIFF ([id number])Indication: Hypertensive heart disease On: 14-Tre-685219:06 Request LORNA CULTURE-OTHER ([id number])Indication: Pharyngitis, acute On: 7-Pgh-441067:04 Request CBC (Auto) (28655)Indication: Hypercholesterolemia On: 32-Hkr-93397:13 Request Lipid Panel ([id number])Indication: Hypercholesterolemia On: :13 Request Metabolic Panel, Comprehensive (73282)Indication: Hypercholesterolemia On: 66-Adu-52509:13 Request Comments: in six months (approximately) TSH ([id number])Indication: Hypothyroidism On: 12-Gmw-211879:06 Request LIPID PANEL (81348)Indication: Hypertension On: 57-Sss-595344:01 Request Planned Encounters Medical; 3 Month FU - On: 14-Jun-2018 10:45 [facility] Sarai Bro CNP, CNP, Mary E Planned Procedures Flu Vaccine (Quadrivalent) On: 02-Jun-2018 Intent 96667Ty: Sarai Bro CNP Comments: Lot #[id number]/30/2019Site-L dltd, IMDose prefilled syringegiven by: SHARONDA CHOINVIS reviewed and ABN signed Sarai Bro CNP MAMMOGRAM BREAST BILATERAL On: 27-May-2018 Intent SCREENING DIGITAL (51742)By: Sarai Bro CNP, CNP, Mary E Radiology - Femur - RightBy: On: 02-Mar-2018 Intent Sarai Bro CNP, CNP, Mary E DEXA SCAN AXIAL SKELETON On: 19-Oct-2017 Intent ([id number])By: Sarai Bro CNP, CNP, Mary E Aerosol Treatment (71243)By: On: 07-Sep-2017 Intent Kelly Naqvi Comments: Lungs clear after aerosol treatment Flu Vaccine (Quadrivalent) On: 13-Apr-2017 Intent 12449Wy: Giselle Silva LPN Comments: InfluenzaLot #[id number]/18/18Site-L dltd, IMDose prefilled syringeVIS and ABN signedgiven by:ROSA MARIA cade MAMMOGRAM BREAST BILATERAL On: 05-Jan-2017 Intent SCREENING DIGITAL (71616)By: Comments: after Apr 24 2017 Sarai Bro CNP, CNP, Mary E DEXA SCAN AXIAL SKELETON On: 05-Jan-2017 Intent (11243)By: Sarai Bro CNP Comments: After Apr 24 2017 Sarai Bro CNP Flu Vaccine (Quadrivalent) On: 06-Jul-2016 Intent 59208Jk: Giselle Silva LPN Comments: InfluenzaLot #Lot [id number]/30/17Site-L dltd, IMDose prefilled syringeVIS and ABN signedgiven by:ROSA MARIA cade MAMMOGRAM, SCREENING, BOTH On: 31-Mar-2016 Intent BREAST ([id number])By: Sarai Bro CNP, CNP, Mary E MAMMOGRAM, SCREENING, BOTH On: 17-Feb-2016 Intent BREAST (20534)By: Sarai Bro CNP, CNP, Mary E PHYSICAL THERAPY EVALUATION On: 28-Jan-2016 Intent ([id number])By: Sarai Bro CNP, CNP, Mary E PHYSICAL THERAPY EVALUATION On: 28-Jan-2016 Intent (31042)By: Sarai Bro CNP, CNP, Mary E Toradol Injection, 30 mg On: 28-Jan-2016 Intent ([id number])By: Roccoyin CARNEYSarai CNP, Mary E Radiology - Lumbar SpineBy: On: 28-Jan-2016 Intent Sarai Bro CNP, CNP, Mary E Radiology - Knee - LeftBy: On: 28-Jan-2016 Intent Sarai Bro CNP, CNP, Mary E Aerosol Treatment (14514)By: On: 24-Dec-2015 Intent Sarai Bro CNP, CNP, Mary E Flu Vaccine (Quadrivalent) On: 10-May-2015 Intent 93022Cq: Hang ANGELIKA Sarai Moon Comments: Lot:[id number]:02/06/16Dose:0.5mLRoute:IMSite:L DltdGiven By:Kacie signed Hang ANGELIKA Sarai Moon DEXA SCAN AXIAL SKELETON On: 19-Mar-2015 Intent (70626)By: Hang CARNEY Sarai Busby CNP MAMMOGRAM, SCREENING, BOTH On: 11-Feb-2015 Intent BREAST ([id number])By: Hang ANGELIKASarai CNP, Mary E DEXA SCAN AXIAL SKELETON On: 11-Feb-2015 Intent (43734)By: Roccoyin CARNEYSarai CNP, Mary E Solu -Medrol Injection, 125 On: 25-Jul-2014 Intent mg (J2930)By: Hang CARNEY, Comments: [id number] 5.17right gm125 mgas, BOOK TRIMMER Sarai Busby CNP Aerosol Treatment (61370)By: On: 25-Jul-2014 Intent Sarai Bro CNP, CNP, Mary E Toradol Injection, 30 mg On: 18-Jul-2014 Intent ([id number])By: Roccoyin CARNEYSarai CNP, Mary E Radiology - Lumbar SpineBy: On: 18-Jul-2014 Intent Sarai Bro CNP, CNP, Mary E Radiology - Hip - RightBy: On: 18-Jul-2014 Intent Sarai Bro CNP, CNP, Mary E Prevnar 13 (53349)By: Ricardo On: 16-Jul-2014 Intent Giselle CRANE Comments: [id number] arm, IMAS Bone Density StudyBy: Hang On: 15-May-2014 Intent Sarai CARNEY CNP, Mary E ADMINISTRATION OF INFLUENZA On: 15-May-2014 Intent VIRUS VACCINE (G0008)By: Tiffaniewojciechyin CARNEY Sarai Bro CNP Sarai Moon FLU VAC, SPLIT, >3 YEARS, On: 15-May-2014 Intent INTRAMUSC (62481)By: Hang Comments: Lot:[id number]:04/24Dose:0.5mLRoute:IMSite:L DltdGiven By:FIDENCIO signed Sarai CARNEY CNP Sarai Moon SPECIMEN HNDLNG/TRNSPRT, OFFC On: 22-Mar-2014 Intent > LAB (57748)By: Hang CARNEY Sarai Bro CNP Sarai Moon BILATERAL MAMMOGRAMS On: 18-Dec-2013 Intent ([id number])By: Hang CARNEY Sarai Bro ANGELIKA Sarai Moon Aerosol Treatment (29126)By: On: 22-Sep-2013 Intent Roccoyin CARNEY Sarai Bro CNP Sarai Moon Wax CurettesBy: Roccoyin ANGELIKA, On: 22-Sep-2013 Intent Sarai Busby CNP Ear Irrigation (19972)By: On: 22-Sep-2013 Intent Sarai Bro CNP, CNP, Mary E Eprescribed prescriptions On: 18-Aug-2013 Intent (G8553)By: Lucrecia Vargas Eprescribed prescriptions On: 05-May-2013 Intent (G8553)By: Hang CARNEY Sarai Bro CNP Sarai Moon ADMINISTRATION OF INFLUENZA On: 05-May-2013 Intent VIRUS VACCINE (G0008)By: Comments: lot # [id number]- 6.2014site- L dltdroute-IMdose- 0.5mlRICHARD and ROMEL signedPenny Hauser LPN, LPN FLU VAC, SPLIT, >3 YEARS, On: 05-May-2013 Intent INTRAMUSC (48810)By: Penny Irving LPN MAMMOGRAM, SCREENING, BOTH On: 16-Dec-2012 Intent BREASTS ([id number])By: Hang CARNEY Sarai Moon Ciesyin CARNEY Rianna Spirometry (74335)By: Aristides On: 16-Dec-2012 Intent Penny CRANE Comments: mild airway obstruction Aerosol Treatment (60941)By: On: 30-Mar-2012 Intent Hang CARNEY RiannaRed Bro CNP Rianna PFT - CompleteBy: Hang CARNEY, On: 01-Mar-2012 Intent Rianna Ciwojciechyin CARNEY Rianna Inhaler Demonstration On: 28-Dec-2011 Intent ([id number])By: Hang CARNEY RiannaRed Bro CNP Rianna Pulse Oximetry (11727)By: On: 28-Dec-2011 Intent Tiffaniewojciechyin CARNEY Sarai Moon Tiffaniebonita ANGELIKA Rianna Eprescribed prescriptions On: 22-Apr-2011 Intent (G8553)By: Hang CARNEY RiannaRed Bro CNP Rianna Eprescribed prescriptions On: 21-Oct-2010 Intent (G8553)By: Hang CARNEY Rianna Ciwojciechyin CARNEY Rianna Eprescribed prescriptions On: 21-Oct-2010 Intent (G8553)By: Hang CARNEY Rianna Ciwojciechyin CARNEY Rianna MAMMOGRAM, SCREENING, BOTH On: 15-Apr-2010 Intent BREASTS (81319)By: Hang CARNEY RiannaRed Bro CNP Rianna Ultrasound - RenalBy: Hang On: 23-Dec-2009 Intent ANGELIKA RiannaRed Bro CNP Rianna Comments: To be done on December 30 CT - Abdomen & Pelvis (IV On: 17-Dec-2009 Intent Contrast Needed)By: Hang CARNEY RiannaRed Bro CNP Rianna ADMINISTRATION OF INFLUENZA On: 22-May-2009 Intent VIRUS VACCINE (G0008)By: Karina Nina LPN FLU VAC, SPLIT, >3 YEARS, On: 22-May-2009 Intent INTRAMUSC ([id number])By: Kelle Comments: Lot #[id number] deltoidgiven by:Karina PLAZA LPN Pulse Oximetry (94817)By: On: 25-Sep-2008 Intent PRESTON Thompson ADMINISTRATION OF INFLUENZA On: 13-Jun-2008 Intent VIRUS VACCINE (G0008)By: Comments: lot #[id number] exp- 01/15site-left delroute-imdose- 0.5 Penny Irving LPN FLU VAC, SPLIT, >3 YEARS, On: 13-Jun-2008 Intent INTRAMUSC (17160)By: Penny Irving LPN MAMMOGRAM, SCREENING, BOTH On: 28-May-2008 Intent BREASTS (37070)By: Susan Lee MD Bio Z (60659)By: Rosa CHRISTIANSEN, On: 28-Nov-2007 Intent Susan Sánchez SPECIMEN HNDLNG/TRNSPRT, OFFC On: 12-Oct-2007 Intent > LAB ([id number])By: Tyesha Ramos DO Bone Density StudyBy: Rosa On: 18-Feb-2007 Intent Susan CHRISTIANSEN Comments: ache in back MAMMOGRAM, SCREENING, BOTH On: 18-Feb-2007 Intent BREASTS ([id number])By: Susan Lee MD Bio Z ([id number])By: Rosa CHRISTIANSEN, On: 20-Jul-2006 Intent Susan Sánchez Planned Medications INJECTION, KETOROLAC TROMETHAMINE, PER 15 MG Ordered: 18-Jul-2014 Pending Ciesa REIMBURSEMENT DIRECTOR, Rianna Ciesa REIMBURSEMENT DIRECTOR, Rianna INJECTION, KETOROLAC TROMETHAMINE, PER 15 MG Ordered: 28-Jan-2016 Pending Ciesa REIMBURSEMENT DIRECTOR, Rianna Ciesa REIMBURSEMENT DIRECTOR, Rianna INJECTION, METHYLPREDNISOLONE SODIUM SUCCINATE, UP TO 125 MG Ordered: 25-Jul-2014 Pending Ciesa REIMBURSEMENT DIRECTOR, Rianna Ciesa REIMBURSEMENT DIRECTOR, Rianna Instructions Name Dates Details Nonsmoker : [...] patient does have durable power of senior attorney and living will. The patient has noticed nothing from the geriatic depression scale. Other providers contributing to the katty ent's care are dietetics professor (Dr paz ), supervisor joiners (Dr Vazquez ), urologist (Dr Pope ) [...]
--- OUTSIDE RECORDS SUMMARY | 2018-10-30 18:31 | XMS RPT_ITS | Continuity of Care Document ---
:1940 Author Organization [facility] Address [address] [facility] [address] [place] [address] Phone Care Team Providers Name Role Phone Tiffaniebonita ANGELIKA, Rianna Unavailable Amanda CHRISTIANSEN, Higinio Longoria Unavailable Turner CHRISTIANSEN, Nahun Plaza Unavailable [facility] [place], Eugenie Tovar Unavailable Rosa CHRISTIANSEN, Susan [...] for 0 days Refills: 0 Ordered:22-Apr-2011 Slarb HANDLE SEWER, Giselle Start : 22-Apr-2011 Active COQ10, 100MG (Oral Capsule) 1 (one) Capsule Capsule daily for 0 days Quantity: 30 {Capsule} Refills: 0 Ordered:25-Jul-2014 Aristides HANDLE SEWERPenny Start : 18-Jul-2014 Active Coreg 6.25 MG Oral Tablet 2 (two) Tablet two times daily for 0 days Quantity: 180 {Tablet} Refills: 3 Ordered:05-Oct-2016 Hang CARNEY, Sarai Jung CNP Start : 05-Oct-2016 Active Cosamin ASU for Joint Health Oral Capsule Active COUMADIN, 2MG (Oral Tablet) 1 (one) Tablet as needed for 360 days Refills: 0 Ordered:11-Feb-2015 Hang ACRNEY, Sarai Ace CNP, Sarai Moon Start : [...] : 18-Aug-2013 End : 28-Aug-2013 Inactive DRISDOL, [id number] (Oral Capsule) 1 Capsule twice weekly for [...] Lower Extremity Result: Comments: See Note; NOTES: [facility] Cardiovascular Services [address] [place] [address] Venous Duplex US - Paulie Extrem 04/07/18 1000 MR#: [id number] Acct: [id number] Name: VALERIE CRAIN Rep #: [id number] : 1940 77 From: Higinio Patel MD [...] Dictated: 04/07/18 1000 Date Transcribed: 04/08/18 1605 Catering Associate: Signed 02-Mar-2018 Femur Min 2 Views Result: Comments: See Note; NOTES: [facility] Imaging Services [address] [place] [address] Femur Min 2 Views MR#: [id number] Acct: [id number] Name: VALERIE CRAIN Rep #: [id number] : 1940 F 77 From: Christiano Croft MD PCP: Sarai Bro NP Status: REG CLI Study: Femur Min 2 Views Date of Exam: 03/02/18 Exam# [id number] Ordering Dr: Sarai Bro STUDY: X-RAY - [...] vice support , CC: Sarai Bro NP Catering Associate: Signed 10-Feb-2018 Echocardiogram Complete Result: Comments: See Note; NOTES: [facility] Cardiovascular Services [address] [place] [address] Echo Complete 02/10/18 1100 MR#: [id number] Acct: [id number] Name: VALERIE CRAIN Rep #: [id number] : 1940 77 From: Amilcar Paz MD Attending Dr: Jennifer Goodwin Status: REG CLI Ordering Dr: Jennifer Goodwin Date: 02/10/18 Location: [facility] Sex: F C Admitted: [facility] For Study: DYSPNEA Procedure This was [...] Date Amilcar Paz MD CC: Sarai Bro SCCM ADMINISTRATOR; Jennifer Goodwin Date Dictated: 02/10/18 1100 Date Transcribed: 02/10/18 1241 Catering Associate: Signed 28-Jan-2018 Cardiology Visit Report Result: Comments: See Note; NOTES: [facility] [address] [place] [address] OFFICE VISIT Date of Service: 01/28/18 MR#: [id number] Acct: [id number] Name: VALERIE CRAIN Rep #: [id number] : 1940 Provider: Jennifer Goodwin Age/Sex: 77/F Location: [facility] Status: Signed HPI HPI Details: VALERIE [...] for her age. 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 She does [...] valve disorder (Chronic) Paroxysmal atrial fibrillation (Chronic) MCC (current) use of anticoagulants (Chronic) Benign essential HTN (Chronic) Surgical History History of appendectomy (Resolved) H/O mitral valve repair (Chronic) Family History Father Decea sed, age 48 from [place] CAD (coronary artery disease) Sudden cardiac Myocardial [...] was generated using a voice recognition syst AdTotum and there may be incorrect words, spelling or punctuation errors that were not noted when reviewing the office note prior to saving. 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 This patient may have a combination of pa per and electronic documentation or all paper documentation. All documentation is viewable within the e-chart portion of [employer] for each patient visit. 09-Nov-2017 Dexa Bone Density Study Result: Comments: See Note; NOTES: [facility] Imaging Services [address] [place] [address] Dexa Bone Density Study MR#: [id number] Acct: [id number] Name: VALERIE CRAIN Rep #: [id number] : 1940 F 77 From: Henry Jones MD PCP: Sarai Bro NP Status: REG CLI Study: Dexa Bone Density Study Date of Exam: 11/09/17 Exam# [id number] Ordering Dr: Sarai Bro STUDY: DUAL E [...] Henry Jones MD at 13:40 EDT Tel [phone], Service support , CC: Sarai Bro NP Catering Associate: Signed 27-Jul-2017 Cardiology Visit Report Result: Comments: See Note; NOTES: [facility] [address] [place] [address] OFFICE VISIT Date of Service: 07/27/17 MR#: [id number] Acct: [id number] Name: SEAN CRAIN #: [id number] : 1940 Provider: Amilcar Paz MD Age/Sex: 77/F Location: [facility] Status: Signed HPI 6 M FU (pt [...] Ejection fraction %: 40 to 44 [facility] Medical History Dilated cardiomyopathy (Chronic) Long-term use of high-risk medication (Chronic ) History of mitral valve disorder (Chronic) Paroxysmal atrial fibrillation (Chronic) MCC (current) use of anticoagulants (Chronic) Benign essential HTN (Chronic) Dyslipidemia (Chronic) mitral maria m vuplasty (Chronic) Surgical History H/O mitral valve repair (Chronic) Family History Father , age 48 from [place] CAD (coronary artery disease) Sudden cardiac Myocardial [...] Detail Follow Up 6 Months (mmm) 07/27/17 6819 <Electronically signed by Amilcar Paz MD> Date Amilcar Cummins Signature: Date (if applicable) CC: Sarai Bro SCCM ADMINISTRATOR 17-May-2017 SCREENING MAMM (CAD), BILAT Result: Comments: See Note; NOTES: [facility] Imaging Services [address] [place] [address] SCREENING MAMM (CAD), BILAT MR#: [id number] Acct: [id number] Name: SEAN CRAIN Rep #: [id number] : 1940 F 76 From: Henry Jones MD PCP: Sarai Bro Status: REG CLI Study: SCREENING MAMM (CAD), BILAT Date of Exam: 05/17/17 Exam# [id number] Ordering Dr: Sarai Bro MAMMOGRAPH Y - [...] delay biopsy of a clinically suspicious abnormality. [id number] Electronically Signed: Henry Jones MD at 10:21 EDT Tel [phone], Service support , CC: Sarai Bro Catering Associate: Signed 27-Feb-2017 Carotid Duplex Ultrasound Result: Comments: See Note; NOTES: [facility] Cardiovascular Services [address] [place] [address] Carotid Duplex Ultrasound 02/26/17 1046 MR#: [id number] Acct: [id number] Name: SEAN ABEBE Rep #: [id number] : 1940 76 From: Malcolm Hill MD Attending Dr: Jennifer Goodwin Status: REG CLI Ordering Dr: Jennifer Goodwin Date: 02/26/17 Location: [facility] Sex: F C Admitte d: [...] Dictated: 02/26/17 1046 Date Transcribed: 02/27/17 1103 Catering Associate: Signed 03-Sep-2016 Chest PA and Lateral Result: Comments: See Note; NOTES: [facility] Imaging Services [address] [place] [address] Verdana 4d Chest PA and Lateral MR#: [id number] Acct: [id number] Name: ESAN CRAIN Rep # : [id number] : 1940 F 76 From: Henry Jones MD PCP: Sarai rBo Status: REG CLI Study: Chest PA and Lateral Date of Exam: 09/03/16 Exam# [id number] Ordering Dr: Nahun Vazquez MD STUD Y: [...] Henry diop MD at 12:41 EST Tel [phone], Service support [phone], CC: Sarai Bro; Nahun Vazquez MD Catering Associate: Signed 28-Aug-2016 Echocardiogram Complete Result: Comments: See Note; NOTES: [facility] Cardiovascular Services [address] [place] [address] Echo Complete 08/28/16 1003 MR#: [id number] Acct: [id number] Name: SEAN CRAIN p #: [id number] : 1940 76 From: Amilcar Paz MD Attending Dr: Amilcar Paz MD Status: REG CLI Ordering Dr: Amilcar Paz MD Date: 08/28/16 Location: [facility] Sex: F C Admitted: Reason For Study: AT [facility] Procedure This was a [...] Dictated: 08/28/16 1003 Date Transcribed: 08/28/16 1225 Catering Associate: Signed 24-Apr-2016 Bilat Scrn Digital AND CAD Result: Comments: See Note; NOTES: [facility] Imaging Services [address] [place] [address] Verdana 4d Bilat Scrn Digital AND CAD MR#: [id number] Acct: [id number] Name: SEAN CRAIN Rep #: [id number] : 1940 F 75 From: Henry Jones MD PCP: Sarai Bro Status: REG CLI Study: Bilat Scrn Digital AND CAD Date of Exam: 04/24/16 Exam# [id number] Ordering Dr: Sarai Bro MAMMOGRAPHY - BILATERAL [...] significant change since the prior study. ___ [facility]/Bilat Scrn Digital AND CAD IMPRESSION: Stable bilateral screening mammogram. Yearly follow-up mammogram recommended. (A) ASSESSMENT CATEGORY: BIRADS Category 1: Negative. A letter regarding these results will be sent to the patient by the facility within 30 days. Approximately 10% of breast cancers are n ot detected by mammography. A normal mammogram should not delay biopsy of a clinically suspicious abnormality. [id number] Electronically Signed: Henry Jones MD at 10:58 EDT Tel [phone], Service support [phone], CC: Sarai Bro Catering Associate: Signed 04-Mar-2016 PT D/C Summary (1) Result: Comments: See Note; NOTES: [facility] [address] [place] [address]. [address] [place], [place] [address] Fax REHABILITATION RVICES DISCHARGE SUMMARY MR#: [id number] Acct: [id number] Name: SEAN CRAIN Rep #: [id number] : 1940 75 From: Giselle NELSON Referring [...] please feel free to call me at [phone]. Thank you for the referral of this patie nt. Sincerely, Giselle Yan <Electronically signed by Giselle Yan MPT> 03/04/16 1917 CC: Sarai Bro Signed 04-Feb-2016 Inital Evaluation (1) - PT Result: Comments: See Note; NOTES: [facility] [address] [place], [place] [address] Fax REHABILITATION SE MEDEROS INITIAL EVALUATION MR#: [id number] Acct: [id number] Name: SEAN CRAIN Rep #: [id number] : 1940 75 From: Giselle Yan MPT Referring Dr.: Sarai Bro Status: REG RCR Insurance: MEDICARE PART A B [facility] Patient's Visit Information SEAN CRAIN is a [...] to be FAXED BACK to us at [phone] for Medicare purposes . Please let me know if there are questions or concerns regarding this plan of care. Physician Signature: Date: <Electronical ly signed by Giselle Yan MPT> 02/04/16 1628 CC: Sarai Bro Signed For Medicare only, by signing this I certify the plan of care. Physicians Signature Date 28-Jan-2016 Knee 4 or More Views Result: Comments: See Note; NOTES: [facility] Imaging Services [address] [place] [address] Verdana 4d Knee 4 or More Views MR#: [id number] Acct: [id number] Name: SEAN DWYER Rep #: [id number] : 1940 F 75 From: Shreyas Beaver MD PCP: Sarai Bro Status: REG CLI Study: Knee 4 or More Views Date of Exam: 01/28/16 Exam# [id number] Ordering Dr: Sarai Bro STUDY: X-RAY - [...] MD at 19:39 EDT , Service support [phone], ORDER # : [id number] RAD/Knee 4 or More Views IMPRESSION: No acute abnormality. Mild degenerative changes. Electronically Signed: Shreyas Beaver MD at 19:39 EDT , Service sup port [phone], CC: Sarai Bro Catering Associate: Signed 28-Jan-2016 L/S Spine Min 4 Views Result: Comments: See Note; NOTES: [facility] Imaging Services [address] [place] [address] Verdana 4d L/S Spine Min 4 Views MR#: [id number] Acct: [id number] Name: SEAN BERRIOS Rep #: [id number] : 1940 F 75 From: Shreyas Beaver MD PCP: Sarai Bro Status: REG CLI Study: L/S Spine Min 4 Views Date of Exam: 01/28/16 Exam# [id number] Ordering Dr: Shital Bro STUDY: X-RAY - [...] MD at 19:40 EDT , Service support [phone], Fax RAD/L/S Spine Min 4 Views IMPRESSION: No acute abnormality. Mild to moderate degenerative changes. Electronically Signed: Shreyas Beaver MD at 19:40 EDT T el [phone], Service support [phone], CC: Sarai Bro Catering Associate: Signed 19-Mar-2015 Dexa Bone Density Study (HP) Result: Comments: See Note; NOTES: [facility] Imaging Services [address] [place] [address] Bone Density Report MR#: [id number] Acct: [id number] Name: SEAN CRAIN Rep #: [id number] : 1940 F 74 From: Henry Jones MD PCP: Sarai Bro Status: REG CLI Study: Dexa Bone Density Study (HP) Date of Exam: 03/19/15 Exam# [id number] Ordering Dr: Sarai Bro STUD Y: DUAL [...] Henry Jones MD at 14:35 EDT Tel [phone], TORIAic e support [phone], CC: Sarai Bro Catering Associate: Signed 12-Mar-2015 Jero Edwards Digital AND CAD Result: Comments: See Note; NOTES: [facility] Imaging Services [address] [place] [address] Breast Imaging Report MR#: [id number] Acct: [id number] Name: SEAN CRAIN Rep #: [id number] : 1940 F 74 From: Henry Jones MD PCP: Sarai Bro Status: REG CLI Study: Bilat Scrn Digital AND CAD Date of Exam: 03/12/15 Exam# [id number] Ordering Dr: Sarai Bro MAMM OGRAPHY - [...] Jones MD 23/03/04 at 9:59 EDT Tel [phone], Service support [phone], CC: Sarai Bro Catering Associate: Signed 16-Jan-2015 Operative Report Result: Comments: See Note; NOTES: [facility] Medical Records Department [address] [place] [address] Operative Report MR#: [id number] Acct: [id number] Name: SEAN CRAIN Rep #: [id number] : 1940 74 From: Amilcar Paz MD [...] care. Amilcar Paz MD T: [facility] JOB: [id number] 01/16/15 0901 <Electronically signed by Amilcar Paz MD&amp ;#62; Date Amilcar Paz MD CC: Sarai Bro; Amilcar Paz MD Date Dictated: 01/14/151318 Date Transcribed: 01/14/151318 Catering Associate: Signed 15-Jan-2015 Consultation Result: Comments: See Note; NOTES: [facility] Medical Records Department [address] [place] [address] Consultation MR#: [id number] Acct: [id number] Name: SEAN CRAIN Rep #: [id number] : 1940 74 From: Armando Waite MD [...] MD Nelson HENDERSON C: Amilcar Bro T: [facility] JOB: [id number] 01/15/15 0643 <Electronically signed by Armando Waite MD> Date Armando Waite MD CC: Sarai Bro; Armando Waite MD; Amilcar Paz MD Date Dictated: 01/14/15 1357 Date Transcribed: 01/14/151356 Catering Associate: Signed 07-Jan-2015 Chest PA and Lateral Result: Comments: See Note; NOTES: [facility] Imaging Services [address] [place], [place] [address] Radiology Report MR#: [id number] Acct: [id number] Name: SEAN CRAIN Rep #: [id number] : 1940 F 74 From: Henry Jones MD PCP: Sarai Bro Status: PRE CLI Study: Chest PA and Lateral Date of Exam: 01/07/15 Exam# [id number] Ordering Dr: Amilcar Paz MD STUDY: X-RA [...] Henry Jones MD at 14:28 EDT Tel [phone], Service support [phone], RAD/Chest PA and Lateral IMPRESSION: Hyperinflation. No acute abnormality is seen. Electronically Signed: Henry Jones MD 2014 at 14:28 EDT Tel [phone], Service support [phone], CC: Sarai Bro; Amilcar Paz MD Catering Associate: Signed 24-Dec-2014 Echocardiogram Complete Result: Comments: See Note; NOTES: [facility] Cardiovascular Services [address] [place] [address] Echo Complete 12/24/14 1003 MR#: [id number] Acct: [id number] Name: SEAN CRAIN Rep #: [id number] : 1940 74 From: Amilcar Paz MD [...] Dictated: 12/24/14 1003 Date Transcribed: 12/24/14 1359 Catering Associate: Signed 19-Jul-2014 Hip min 2 Views Result: Comments: See Note; NOTES: [facility] Imaging Services [address] [place] [address] Radiology Report MR#: [id number] Acct: [id number] Name: SEAN CRAIN Rep #: [id number] : 1940 F 74 From: Henry Jones MD PCP: Sarai Bro Status: REG CLI Study: Hip min 2 Views Date of Exam: 07/19/14 Exam# [id number] Ordering Dr: Sarai Bro STUDY: X-RAY - [...] Henry Jones MD at 11:38 EST Tel [phone], Service support [phone], RAD/Hip min 2 Views IMPRESSION: Degenerative changes of the hip. Electronically Signed: Henry Jones MD at 11:38 EST Tel [phone], Service support [phone], CC : Sarai Bro Catering Associate: Signed 19-Jul-2014 L/S Spine Min 4 Views Result: Comments: See Note; NOTES: [facility] Imaging Services [address] [place] [address] Radiology Report MR#: [id number] Acct: [id number] Name: SEAN CRAIN Rep #: [id number] : 1940 F 74 From: Henry Jones MD PCP: Sarai Bro Status: REG CLI Study: L/S Spine Min 4 Views Date of Exam: 07/19/14 Exam# [id number] Ordering Dr: Sarai Bro STUDY: X-RAY - [...] Henry Jones MD at 13:19 EST Tel [phone], Service support [phone], CC: Sarai Bro Catering Associate: Signed 05-Jan-2014 Bilat Scrn Digital & CAD Result: Comments: See Note; NOTES: [facility] Imaging Services [address] [place] [address] Breast Imaging Report MR#: [id number] Acct: [id number] Name: SEAN CRAIN Rep #: [id number] : 1940 F 73 From: Henry Jones MD PCP: Status: REG CLI Exam# [id number] Ordering Dr: Sarai Bro MAMMOGRAPHY - BILATERAL [...] Henry Jones MD at 9:58 EDT Tel [phone], Service support [phone], CC: Sarai Bro; Amilcar Paz MD Catering Associate: Signed Immunization Name Dates Details Influenza (3 years and up) on: 13-Jun-2008 Influenza (3 years and up) on: 22-May-2009 Comments: Lot #[id number]-left deltoidgiven by:CDH Family History Unknown Family Member Name Dates Details Father Comments: [place] at 48 & Status: Active Social History Name Dates Details Caffeine Use Comments: 2 cups coffee qd 1 soda qod Status: Active 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 Status: Inactive Tobacco use: Never smoker. Status: Inactive Vital Signs Date Test Result Details 74-Wed-772576:20 Temperature 99.4 f Comments: Method: Temporal Pulse [...] kg/m2 Body Surface Area Calculated 1.86 m2 61-Eym-647343:16 Temperature 96.7 f Pulse 62 /min Comments: [...] Value Details :18 Prothrombin Time w/INR Comments: [facility] [address] [place], [address] INR 2.7 (Normal) PROTIME 28.4 s (Abnormal) Range: 11.7-14.9 :14 Prothrombin Time w/INR Comments: [facility] [address] [place], [address] INR 2.2 (Normal) PROTIME 24.6 s (Abnormal) Range: 11.7-14.9 :18 Prothrombin Time w/INR Comments: [facility] [address] [place], [address] INR 2.2 (Normal) PROTIME 24.3 s (Abnormal) Range: 11.7-14.9 :26 Prothrombin Time w/INR Comments: [facility] [address] [place], [address] INR 2.2 (Normal) PROTIME 24.6 s (Abnormal) Range: 11.7-14.9 :13 Prothrombin Time w/INR Comments: [facility] [address] [place], [address] INR 2.3 (Normal) PROTIME 25.7 s (Abnormal) Range: 11.7-14.9 :58 Prothrombin Time w/INR Comments: [facility] [address] [place], [address] INR 2.0 (Normal) PROTIME 22.8 s (Abnormal) Range: 11.7-14.9 :45 CBC W/Diff, Automated Comments: [facility] [address] [place], [address] ; another Absolute Lymph 2.13 [...] Range: 4.4-11.0 :45 Comprehensive Metabolic Profil Comments: [facility] [address] [place], [address] ; Dr Paz GAP 8 [...] Comments: Please note revised GLUCOSE reference range bcpxdcwij73/02/2018. 18-Psc-07956:45 Lipid Profile Comments: [facility] [address] [place], [address] VLDL 17 mg/dL (Normal) Range: 5-40 LDL [...] 200-240 mg/dL Borderline >240 mg/dL High Risk 05-Wpo-02538:45 Microalb:Creat Ratio,Random UR Comments: [facility] [address] [place], [id number] MALB:CREAT 8.4 {mg/g_CRE} (Normal) MICROALBUMIN,UR 13.5 mg/L (Normal) UR CREAT 160.00 mg/dL (Normal) 04-Wwv-94408:45 Prothrombin Time w/INR Comments: [facility] [address], [address] INR 1.9 (Normal) PROTIME 21.5 s (Abnormal) Range: 11.7-14.9 Comments: ADDENDA: cardio :45 Thyroid Stim Hormone (TSH) Comments: [facility] [address] [place], [address] TSH 2.92 {uIU/mL} (Normal) Range: 0.358-3.74 92-Hld-72062:45 Urinalysis, Routine (Dipstick) Comments: How was Urine Obtained? CLEAN [facility] [address] [place], [address] ; other doc LEUK ESTERASE 100 /ul (Abnormal) OCCULT BLOOD-UR 50 /ul (Abnormal) NITRITE UR Negative (Normal) UROBILI Normal mg/dL (Normal) PROT DIPSTX Negative mg/dL (Normal) pH UR 6.0 (Normal) Range: 5.0 - 8.0 SP.GR. DIPSTX 1.020 (Normal) Range: 1.002-1.030 KETONE UR Negative mg/dL (Normal) BILIRUBIN URINE Negative mg/dL (Normal) GLUCOSE, UR Normal mg/dL (Normal) CLARITY Cloudy (Normal) COLOR Yellow (Normal) 47-Bku-992895:31 Prothrombin Time w/INR Comments: [facility] [address] [place], [address] INR 2.1 (Normal) PROTIME 23.3 s (Abnormal) Range: 11.7-14.9 4-Mdi-592429:20 Prothrombin Time w/INR Comments: [facility] [address] [place], [address] INR 2.2 (Normal) Comments: ADDENDA: managed by cardio PROTIME 24.1 s (Abnormal) Range: 11.7-14.9 29-Rlm-249672:40 Prothrombin Time w/INR Comments: [facility] [address] [place], [address] ; managed by cardio INR 2.0 (Normal) PROTIME 22.9 s (Abnormal) Range: 11.7-14.9 18-Sgz-951843:13 Prothrombin Time w/INR Comments: [facility] [address] [place], [address] INR 1.6 (Normal) PROTIME 19.5 s (Abnormal) Range: 11.7-14.9 86-Fws-457627:28 Prothrombin Time w/INR Comments: [facility] [address] [place], [address] ; cardio INR 1.8 (Normal) PROTIME 19.8 s (Abnormal) Range: 11.7-14.9 7-Uvr-748419:53 Prothrombin Time w/INR Comments: [facility] [address] [place], [address] INR 2.4 (Normal) PROTIME 24.8 s (Abnormal) Range: 11.7-14.9 0-Tem-990047:26 Prothrombin Time w/INR Comments: [place] [address] [place], [address] INR 1.9 (Normal) PROTIME 21.2 s (Abnormal) Range: 11.7-14.9 21-Kmh-200281:42 Rapid Flu (42796 x 2) Influenza A Ag POS B (Normal) 45-Tbd-897252:04 Prothrombin Time w/INR Comments: [facility] [address] [place], [address] ; cardio manages INR 1.4 (Normal) PROTIME 16.5 s (Abnormal) Range: 11.7-14.9 07-Nhq-200229:28 Prothrombin Time w/INR Comments: [facility] [address] [place], [address] INR 1.2 (Normal) PROTIME 14.3 s (Normal) Range: 11.7-14.9 0-Ptg-369821:11 Prothrombin Time w/INR Comments: [address] [place], [address] INR 2.0 (Normal) PROTIME 21.6 s (Abnormal) Range: 11.7-14.9 26-Tus-370853:18 CBC W/Diff, Automated Comments: [address] [place], [place], [address] Absolute Lymph 2.38 {X10_3/ul} (Normal) Range: 0.83-4.51 [...] Range: 4.4-11.0 :18 Prothrombin Time w/INR Comments: [facility] [address] [place], [place], [address] INR 2.1 (Normal) PROTIME 22.8 s (Abnormal) Range: 11.7-14.9 :52 POTASSIUM SERUM (70437) Comments: STAT; Order Date: 07/23/17Order Info: 2823-3 - KComments: [facility] [address] [place], [id number] K 4.4 mmol/L (Normal) Range: 3.5-5.1 83-Qin-340442:56 Microscopic Examination Comments: PATIENT NOT FASTINGPERFORMED BY: [facility] [id number] Bacteria Few (Normal) Mucus Threads Present (Normal) Epithelial Cells (non renal) 0-10 {/hpf} (Normal) Range: 0 - 10 RBC 3-10 {/hpf} (Abnormal) Range: 0 - 2 WBC 0-5 {/hpf} (Normal) Range: 0 - 5 :56 VITAMIN B-12 (CYANOCOBALAMIN) Comments: PATIENT NOT FASTINGPERFORMED BY: [employer] tritrue MurrayGATR TechnologiesSc[facility] [id number] ([id number]) Vitamin B12 451 pg/mL (Normal) Range: 232-1245 Comments: Please note reference interval change :56 TSH (63022) Comments: PATIENT NOT FASTINGPERFORMED BY: [employer] [address] [place] [id number] TSH 2.910 {uIU/mL} (Normal) Range: 0.450-4.500 :56 URINALYSIS, W/ MICRO (17449) Comments: PATIENT NOT FASTINGPERFORMED BY: [facility]6370 [facility] [id number] Microscopic Examination See below: (Normal) Comments: Microscopic was indicated and was performed. Nitrite, Urine Negative (Normal) Urobilinogen,Semi-Qn 0.2 mg/dL (Normal) Range: 0.2-1.0 Bilirubin Negative (Normal) Occult Blood 1+ (Abnormal) Ketones Negative (Normal) Glucose Negative (Normal) Protein Negative (Normal) WBC Esterase Trace (Abnormal) Appearance Clear (Normal) Urine-Color Yellow (Normal) pH 7.0 (Normal) Range: 5.0-7.5 Specific [place] 1.017 (Normal) Range: 1.005-1.030 :56 MICROALBUMIN: CREATININE RATIO Comments: PATIENT NOT FASTINGPERFORMED BY: [employer] [facility] ServicesTr[facility]6370 [facility] [id number] ([id number]) AND (72932) Microalb/Creat Ratio 7.4 {mg/g_creat} (Normal) Range: 0.0-30.0 Microalbumin, Urine 5.0 ug/mL (Normal) Creatinine, Urine 68.0 mg/dL (Normal) :56 METABOLIC PANEL, COMPREHENSIVE Comments: PATIENT NOT FASTINGPERFORMED BY: [facility]Mmnqei8306 [facility] [id number] (07239) ALT (SGPT) 18 [iU]/L (Normal) Range: 0-32 [...] Glucose, Serum 87 mg/dL (Normal) Range: 65-99 53-Nhu-952343:56 CBC W/AUTO DIFF WBC (36779) Comments: PATIENT NOT FASTINGPERFORMED BY: [facility] Dygixn8519 [facility] [id number] Immature Grans (Abs) 0.0 {x10E3/uL} (Normal) Range: [...] Range: 3.4-10.8 :38 Prothrombin Time w/INR Comments: [facility] [address] [place], [address] INR 2.0 (Normal) PROTIME 22.0 s (Abnormal) Range: 11.7-14.9 :21 Prothrombin Time w/INR Comments: [facility] [address] [place], [address] INR 2.5 (Normal) PROTIME 26.0 s (Abnormal) Range: 11.7-14.9 :12 Lipid Profile Comments: Order Date: 12/04/16Order Info: 0788-1 - *Hepatic Function PanelOrder Info: 94690-8 - *Lipid Profile CC PCPComments: 12 hours fasting, may have water.[facility] X[address]ayo[address] [place], [address] VLDL 21 mg/dL (Normal) Range: 5-40 LDL [...] Info: 0788-1 - *Hepatic Function PanelOrder Info: [id number] - *Lipid Profile CC PCPComments: 12 hours fasting, may have water.[facility] [address]whll[address] [place], [place], [address] D BILI 0.09 mg/dL (Normal) Range: 0.00-0.30 T BILI 0.50 mg/dL (Normal) Range: 0.20-1.00 ALT 21 U/L (Normal) Range: 12-78 ALK P 78 U/L (Normal) Range: 45-117 AST 16 U/L (Normal) Range: 15-37 GLOB 3.1 g/dL (Normal) Range: 2.2-4.2 ALB 3.5 g/dL (Normal) Range: 3.4-5.0 Comments: Please note revised Albumin AND Globulin reference rangeeffective 2017. T PROT 6.6 g/dL (Normal) Range: 6.4-8.2 60-Llz-039481:39 Prothrombin Time w/INR Comments: [facility] [address] [place], [place], [address] INR 2.4 (Normal) PROTIME 24.9 s (Abnormal) Range: 11.7-14.9 :43 Prothrombin Time w/INR Comments: [facility] [address]izztz[address] [place], [place], [address] INR 2.2 (Normal) PROTIME 23.9 s (Abnormal) Range: 11.7-14.9 :22 CBC W/Diff, Automated Comments: [address] [place], [place], [address] ; OV 9/5 Absolute Lymph 2.11 {X10_3/ul} [...] Range: 4.4-11.0 09-Apr-20179:22 Comprehensive Metabolic Profil Comments: [facility] U[address]vf[address]unv7[address] [place], [place], [address] GAP 7 (Normal) Range: 5-15 CO2 33.0 [...] 70-110 :22 Thyroid Stim Hormone (TSH) Comments: [facility] [address] [place], [address] TSH 3.52 {uIU/mL} (Normal) Range: 0.358-3.74 11-Shb-855196:37 Prothrombin Time w/INR Comments: [facility] [address]ffnc[address] [place], [phone] INR 2.1 (Normal) PROTIME 22.4 s (Abnormal) Range: 11.7-14.9 95-Ddn-733158:12 Prothrombin Time w/INR Comments: PT ORDER IS AND T4 IS [facility] Bjdraomvux8[address] [place], [id number](543) INR 2.1 (Normal) PROTIME 23.1 s (Abnormal) Range: 11.7-14.9 11-Ugb-172205:11 T4 Total, Thyroxin Comments: Order Date: 02/19/17Order Info: [id number] - *T4 (Total)Comments: Reason:Order Info: [id number] - *[facility]SHK[facility] Spftpxytzp5[address] [place], [phone] T4 THYROXIN 7.2 ug/dL (Normal) Range: 4.8-13.9 08-Xxm-097702:11 Thyroid Stim Hormone (TSH) Comments: Order Date: 02/19/17Order Info: [id number] - *T4 (Total)Comments: Reason:Order Info: 3016-3 - *[facility] Hqwygujbzv9765 [address] [place], [phone] TSH 1.56 {uIU/mL} (Normal) Range: 0.358-3.74 :37 Prothrombin Time w/INR Comments: [facility] Zhzoopizwb[address] [place], [phone] INR 1.9 (Normal) PROTIME 21.4 s (Abnormal) Range: 11.7-14.9 7-Mlf-502736:50 Prothrombin Time w/INR Comments: [facility] Smftgnlbjd34[address] [place], [address] INR 2.0 (Normal) PROTIME 21.6 s (Abnormal) Range: 11.7-14.9 99-Wnl-826172:37 Prothrombin Time w/INR Comments: [facility] [address] [place], [phone](331 INR 2.5 (Normal) PROTIME 25.6 s (Abnormal) Range: 11.7-14.9 70-Vzn-963065:18 Prothrombin Time w/INR Comments: [facility] [address]ug[address] [place], [phone] INR 2.1 (Normal) PROTIME 22.5 s (Abnormal) Range: 11.7-14.9 19-Ulx-942028:17 Lipid Profile Comments: Order Date: 06/02/16Order Info: 0788- [id number] - *Hepatic Function PanelDR.TOVA HOLLIENORTHERN LIGHT BLUE HILL HOSPITALMARIMAR LIPID LIVEROrder Date: 06/02/16Order Info: [id number] - *Lipid Profile CC PCPComments: 12 hours fasting, may have watred lalaKet[facility] [address]hdqyfe[address] [place], [phone] VLDL 31 mg/dL (Normal) Range: 5-40 LDL [...] 200-240 mg/dL Borderline >240 mg/dL High Risk 16-Boh-651929:17 Liver Profile Comments: Order Date: 06/02/16Order Info: [id number]- [id number] - *Hepatic Function PanelDR.TOVA PTMICHELLE LIPID LIVEROrder Date: 06/02/16Order Info: [id number] - *Lipid Profile CC PCPComments: 12 hours fasting, may have mary lalaKet[facility] Aurbojmrlz5[address] [place], [address] D BILI 0.09 mg/dL (Normal) Range: 0.00-0.30 T BILI 0.50 mg/dL (Normal) Range: 0.20-1.00 ALT 28 U/L (Normal) Range: 12-78 ALK P 93 U/L (Normal) Range: 45-117 AST 21 U/L (Normal) Range: 15-37 GLOB 3.4 g/dL (Normal) Range: 2.3-3.5 ALB 4.0 g/dL (Normal) Range: 3.4-5.0 T PROT 7.4 g/dL (Normal) Range: 6.4-8.2 5-Uup-462788:32 Prothrombin Time w/INR Comments: [facility] [address] [place], [address] ; [facility] manages INR 1.8 (Normal) PROTIME 20.2 s (Abnormal) Range: 11.7-14.9 87-Xdr-019170:09 Prothrombin Time w/INR Comments: [facility] X[address]qveyp[address] [place], [address] ; another doc INR 2.1 (Normal) PROTIME 23.1 s (Abnormal) Range: 11.7-14.9 12-Ryt-144166:10 Metabolic Panel, Comprehensive Comments: today; PATIENT NOT FASTINGPERFORMED BY: ZAINAB LabCoVirt[facility])Rljkdb3280 [facility] [id number] (30324) ALT (SGPT) 16 [iU]/L (Normal) Range: 0-32 [...] Glucose, Serum 89 mg/dL (Normal) Range: 65-99 22-Hio-767943:26 Prothrombin Time w/INR Comments: [facility] [address]qladou[address] [place], [address] INR 2.2 (Normal) PROTIME 23.7 s (Abnormal) Range: 11.7-14.9 39-Wkd-023518:52 CBC-Complete Blood Cnt No Diff Comments: [facility] Mzoddbwizz32[address] [place], [address] ; sibilia MPV 10.8 fL [...] 4.2-5.4 WBC 7.4 K/mm3 (Normal) Range: 4.4-11.0 28-Efp-606184:58 Prothrombin Time w/INR Comments: [facility] Pfgsoovtrd95[address] [place], [address] INR 2.0 (Normal) PROTIME 22.4 s (Abnormal) Range: 11.7-14.9 74-Ycy-009199:49 Prothrombin Time w/INR Comments: [facility] [address]qjkhzqs[address] [place], [address] INR 2.0 (Normal) PROTIME 22.3 s (Abnormal) Range: 11.7-14.9 82-Qxp-347361:54 CBC WITH MANUAL DIFF (70617) Comments: PATIENT NOT FASTINGPERFORMED BY: [facility]CoVirt[facility])Koxpiq5183 [facility] [id number] Immature Grans (Abs) 0.0 {x10E3/uL} (Normal) Range: [...] 3.77-5.28 WBC 6.2 {x10E3/uL} (Normal) Range: 3.4-10.8 68-Ear-446790:54 Metabolic Panel, Comprehensive Comments: PATIENT NOT FASTINGPERFORMED BY: [facility])Czdkwn4294 [facility] [id number] (39063) ALT (SGPT) 18 [iU]/L (Normal) Range: 0-32 [...] Glucose, Serum 86 mg/dL (Normal) Range: 65-99 88-Qev-349467:54 TSH (03927) Comments: PATIENT NOT FASTINGPERFORMED BY: [facility]CoV[facility])Jeobos0520 [facility] [id number] TSH 2.890 {uIU/mL} (Normal) Range: 0.450-4.500 99-Hjf-650268:23 Prothrombin Time w/INR Comments: [facility] [address] [place], [address] ; managed by cardio INR 2.6 (Normal) PROTIME 27.4 s (Abnormal) Range: 11.7-14.9 03-Vxi-72971:54 Prothrombin Time w/INR Comments: [facility] [address] [place], [address] ; another doc INR 2.0 (Normal) PROTIME 22.3 s (Abnormal) Range: 11.7-14.9 :53 Lipid Profile Comments: Order Date: 05/22/16 Order #: [id number] Health [facility] [address]curbsdp06[address] [place], [place], [address] VLDL 21 mg/dL (Normal) Range: 5-40 LDL [...] Profile Comments: Order Date: 05/22/16 Order #: [id number] Health [facility]burg [address]upnhqdr8[address] [place], [place], 67[address] D BILI < 0.05 mg/dL (Normal) Range: [...] Range: 6.4-8.2 :09 Prothrombin Time w/INR Comments: [facility] Y[address]xtngmfl45[address] [place], [address] INR 2.5 (Normal) PROTIME 26.3 s (Abnormal) Range: 11.7-14.9 :59 Prothrombin Time w/INR Comments: [facility] [address] [place], [phone] ; managed by cardio INR 2.9 (Normal) PROTIME 29.3 s (Abnormal) Range: 11.7-14.9 :05 Prothrombin Time w/INR Comments: [facility] [address]wt[address] [place], [address] INR 2.0 (Normal) PROTIME 22.3 s (Abnormal) Range: 11.7-14.9 :11 Prothrombin Time w/INR Comments: [facility] Q[address]qllfe[address] [place], [address] INR 2.7 (Normal) Comments: ADDENDA: managed by cardio PROTIME 27.7 s (Abnormal) Range: 11.7-14.9 :14 Prothrombin Time w/INR Comments: [facility] [address] [place], [address] ; managed by Tova INR 2.7 (Normal) PROTIME 28.1 s (Abnormal) Range: 11.7-14.9 :45 Prothrombin Time w/INR Comments: [facility] [address] [place], [address] ; managed by cardio INR 3.1 (Normal) PROTIME 31.3 s (Abnormal) Range: 11.7-14.9 :27 Prothrombin Time w/INR Comments: [facility] Us[address]khj[address] [place], [address] ; managed by cardio INR 3.1 (Normal) PROTIME 31.1 s (Abnormal) Range: 11.7-14.9 :22 Prothrombin Time w/INR Comments: [facility] [address] [place], [address] INR 2.6 (Normal) PROTIME 27.4 s (Abnormal) Range: 11.7-14.9 16-Jan-20169:08 Prothrombin Time w/INR Comments: [facility] U[address]qsybeks[address] [place], [address] ; managed with Dr. paz INR 4.1 (Abnormal) Comments: CRITICAL VALUE REPEATED AND VERIFIED. [facility] 1251 Elza Hinojosa.RESULTS READ BACK BY SAME . PROTIME 38.2 s (Abnormal) Range: 11.7-14.9 36-Jtt-350202:11 Microscopic Examination Comments: PATIENT WAS FASTINGPERFORMED BY: [facility] [id number] Bacteria None seen (Normal) Mucus Threads Present (Normal) Epithelial Cells (non renal) 0-10 {/hpf} (Normal) Range: 0 - 10 RBC 11-30 {/hpf} (Abnormal) Range: 0 - 2 WBC 0-5 {/hpf} (Normal) Range: 0 - 5 72-Cwg-755595:11 MICROALBUMIN: CREATININE RATIO Comments: PATIENT WAS FASTINGPERFORMED BY: MailLift70 [facility] [id number] (06037) AND (90678) Microalb/Creat Ratio 11.4 {mg/g_creat} (Normal) Range: 0.0-30.0 Microalbumin, Urine 12.1 ug/mL (Normal) Comments: Please note reference interval change Creatinine, Urine 106.3 mg/dL (Normal) Comments: Please note reference interval change :11 URINALYSIS (90666) Comments: PATIENT WAS FASTINGPERFORMED BY: Mail[employer]ift70 [facility] [id number] Microscopic Examination See below: (Normal) Comments: Microscopic was indicated and was performed. Nitrite, Urine Negative (Normal) Urobilinogen,Semi-Qn 0.2 mg/dL (Normal) Range: 0.2-1.0 Bilirubin Negative (Normal) Occult Blood 2+ (Abnormal) Ketones Negative (Normal) Glucose Negative (Normal) Protein Negative (Normal) WBC Esterase Negative (Normal) Appearance Clear (Normal) Urine-Color Yellow (Normal) pH 7.0 (Normal) Range: 5.0-7.5 Specific [place] 1.018 (Normal) Range: 1.005-1.030 18-Ryr-179101:11 Metabolic Panel, Comments: PATIENT WAS FASTINGPERFORMED BY: Mail[employer]70 [facility] [id number] Information: [id number], [id number] [facility] (90015) ALT (SGPT) 14 [iU]/L (Normal) Range: 0-32 [...] Glucose, Serum 91 mg/dL (Normal) Range: 65-99 48-Qpk-224973:11 TSH (93579) Comments: PATIENT WAS FASTINGPERFORMED BY: Mail[employer]70 [facility] [id number] TSH 2.260 {uIU/mL} (Normal) Range: 0.450-4.500 :17 Prothrombin Time w/INR Comments: [facility] [address]sczzzf[address] [place], [address] INR 2.8 (Normal) PROTIME 28.4 s (Abnormal) Range: 11.7-14.9 :40 Lipid Profile Comments: [facility] Sewtkmngql[address] [place], [address] VLDL 22 mg/dL (Normal) Range: 5-40 [...] mg/dL High Risk :40 Liver Profile Comments: [facility] Fyfgsfitcl[address] [place], [address] D BILI 0.10 mg/dL (Normal) Range: 0.00-0.30 T BILI 0.60 mg/dL (Normal) Range: 0.20-1.00 ALT 26 U/L (Normal) Range: 12-78 ALK P 86 U/L (Normal) Range: 50-136 AST 20 U/L (Normal) Range: 15-37 GLOB 3.4 g/dL (Normal) Range: 2.3-3.5 ALB 3.9 g/dL (Normal) Range: 3.4-5.0 T PROT 7.3 g/dL (Normal) Range: 6.4-8.2 :26 Prothrombin Time w/INR Comments: [facility] Yxgljoqort18[address] [place], [address] INR 2.6 (Normal) Comments: ADDENDA: handled by cardio PROTIME 27.3 s (Abnormal) Range: 11.7-14.9 :40 Prothrombin Time w/INR Comments: [facility] [address]ws[address] [place], [address] INR 2.4 (Normal) PROTIME 26.4 s (Abnormal) Range: 11.7-14.9 :03 Prothrombin Time w/INR Comments: [facility] [address] [place], [address] ; per pop up in EMR cardio manages INR INR 2.2 (Normal) PROTIME 24.5 s (Abnormal) Range: 11.7-14.9 :51 Prothrombin Time w/INR Comments: [facility] V[address]lim[address] [place], [address] INR 1.6 (Normal) PROTIME 19.0 s (Abnormal) Range: 11.7-14.9 Comments: ADDENDA: managed by cardio :33 Prothrombin Time w/INR Comments: [facility] Xyxytrhg[address] [place], [address] ; handled by cardio INR 2.1 (Normal) PROTIME 24.0 s (Abnormal) Range: 11.7-14.9 :02 Prothrombin Time w/INR Comments: [facility] [address] [place], [address] INR 2.2 (Normal) PROTIME 24.1 s (Abnormal) Range: 11.7-14.9 :37 Prothrombin Time w/INR Comments: [facility] [address]fd[address] [place], [address] INR 2.5 (Normal) PROTIME 26.7 s (Abnormal) Range: 11.7-14.9 :44 Prothrombin Time w/INR Comments: [facility] [address]kes[address] [place], [address] INR 2.2 (Normal) PROTIME 24.6 s (Abnormal) Range: 11.7-14.9 :15 Prothrombin Time w/INR Comments: [facility] Tpscujbngm26[address] [place], [address] INR 1.6 (Normal) PROTIME 19.4 s (Abnormal) Range: 11.7-14.9 :36 Prothrombin Time w/INR Comments: [facility] Aepszqtzte[address] [place], [address] INR 1.2 (Normal) PROTIME 15.3 s (Abnormal) Range: 11.7-14.9 :02 Prothrombin Time w/INR Comments: [facility] Gcdrpzupjq7[address] [place], [address] INR 2.7 (Normal) PROTIME 29.0 s (Abnormal) Range: 11.7-14.9 :47 Lipid Profile Comments: [facility] Dejhggztvj49[address] [place], [address] VLDL 20 mg/dL (Normal) Range: 5-40 [...] mg/dL High Risk :47 Liver Profile Comments: [facility] Ruhfrsdsey6[address] [place], [address] D BILI 0.09 mg/dL (Normal) Range: [...] Auto Diff Comments: PATIENT NOT FASTINGPERFORMED BY: [facility])Ezsgtr2918 [facility] [id number] Information: [id number] (39033) Immature Grans (Abs) 0.0 {x10E3/uL} (Normal) Range: [...] 3.77-5.28 WBC 6.2 {x10E3/uL} (Normal) Range: 3.4-10.8 2-Wzv-378994:11 CALCIFEDIOL (60875) Comments: PATIENT NOT FASTINGPERFORMED BY: [facility])Ehfvwp2403 [facility] [id number] Vitamin D, 25-Hydroxy 38.9 ng/mL (Normal) Range: 30.0-100.0 Comments: Vitamin D deficiency has been defined by the Cory ofMedicine and an Endocrine Society practice guideline as alevel of serum 25-OH vitamin D less than 20 ng/mL (1,2).The Endocrine Society went on to further define vitamin Dinsufficiency as a level between 21 and 29 ng/mL (2).1. IOM (Cory of Medicine). 2010. Dietary reference intakes for calcium and D. [place]: The National Academies Press.2. Roberto MF, Brody OCHOA, Maribell CADENA, et al. Evaluation, treatment, and prevention of vitamin D deficiency: an Endocrine Society clinical practice guideline. JCEM. 2010; 96(7):1911-30. 4-Jwv-149899:11 VITAMIN B12 AND FOLATES Comments: PATIENT NOT FASTINGPERFORMED BY: [facility] Xnzofv2075 [facility] [id number] (12915) Folate (Folic Acid), Serum 10.4 ng/mL (Normal) Comments: A serum folate concentration of less than 3.1 ng/mL isconsidered to represent clinical deficiency. Vitamin B12 1651 pg/mL (Abnormal) Range: 211-946 3-Cza-408730:11 Metabolic Panel, Comprehensive Comments: PATIENT NOT FASTINGPERFORMED BY: Glassful Eiseuy2668 [facility] [id number] (31254) ALT (SGPT) 15 [iU]/L (Normal) Range: 0-32 [...] Range: 65-99 09-May-20159:53 Prothrombin Time w/INR Comments: [facility] [address] [place] [address], [address] INR 1.9 (Normal) PROTIME 22.0 s (Abnormal) Range: 11.7-14.9 14-Hgl-424711:40 Prothrombin Time w/INR Comments: Test performed at:[facility] [address] [place] [address] INR 1.3 (Normal) PROTIME 16.3 s (Abnormal) Range: 11.7-14.9 23-Uso-334164:03 Prothrombin Time w/INR Comments: Test performed at:[facility] [address] [place] [address] INR 1.7 (Normal) PROTIME 20.4 s (Abnormal) Range: 11.7-14.9 2-Rya-134183:26 Prothrombin Time w/INR Comments: Test performed at:[facility] [address] [place] [address] INR 1.2 (Normal) Comments: ADDENDA: managed by dr paz PROTIME 15.8 s (Abnormal) Range: 11.7-14.9 94-Fhu-276889:28 Prothrombin Time w/INR Comments: Test performed at:[facility] [address]fc[address] [place] [address] INR 1.2 (Normal) PROTIME 15.8 s (Abnormal) Range: 11.7-14.9 :54 Prothrombin Time w/INR Comments: Test performed at:[facility] [address]ogeunak[address] [place] [address] INR 2.5 (Normal) PROTIME 27.3 s (Abnormal) Range: 11.7-14.9 7-Qcq-442947:16 Prothrombin Time w/INR Comments: Test performed at:[facility] [address] [place] [address] INR 2.0 (Normal) PROTIME 23.2 s (Abnormal) Range: 11.7-14.9 51-Dgo-599768:29 Prothrombin Time w/INR Comments: Test performed at:[facility] [address] [place] [address] INR 2.8 (Normal) PROTIME 29.3 s (Abnormal) Range: 11.7-14.9 59-Rzk-697048:06 Prothrombin Time w/INR Comments: Test performed at:[facility] [address] [place] [address] ; Dr Bella manages INR 2.1 (Normal) PROTIME 24.0 s (Abnormal) Range: 11.7-14.9 :45 Prothrombin Time w/INR Comments: Test performed at:[facility] [address] [place] [address] ; ordered by another INR 1.3 (Normal) PROTIME 16.5 s (Abnormal) Range: 11.7-14.9 :00 Prothrombin Time w/INR Comments: Test performed at:[facility] [address] [place] [address] INR 0.9 (Normal) PROTIME 12.7 s (Normal) Range: 11.7-14.9 1-Yut-712823:05 Vitamin B12 and Folate Comments: PATIENT NOT FASTINGPERFORMED BY: [facility]6370 [facility] [id number] Information: [id number] Folate (Folic Acid), 7.8 ng/mL (Normal) Comments: A serum folate concentration of less than 3.1 ng/mL isconsidered to represent clinical deficiency. Serum Vitamin B12 1883 pg/mL Range: 211-946 (Abnormal) : Vitamin D, 42.8 ng/mL (Normal) Comments: PATIENT NOT FASTINGPERFORMED BY: [facility]Jepxex4822 [facility] [id number] 05 25-Hydroxy Range: 30.0-100.0 Comments: Vitamin D deficiency has been defined by the Cory ofMedicine and an Endocrine Society practice guideline as alevel of serum 25-OH vitamin D less than 20 ng/mL (1,2).The Endocrine Society went on to further define vitamin Dinsufficiency as a level between 21 and 29 ng/mL (2).1. IOM (Cory of Medicine). 2010. Dietary reference intakes for calcium and D. [place]: The National Academies Press.2. Roberto MF, Brody [place], Maribell CADENA, et al. Evaluation, treatment, and prevention of vitamin D deficiency: an Endocrine Society clinical practice guideline. JCEM. 2010; 96(7):1911-30. :04 CBC W/Diff, Automated Comments: Test performed at:[facility] [address]ufq[address] [place] [address] Absolute Lymph 2.41 {X10_3/ul} (Normal) [...] 4.2-5.4 WBC 6.5 K/mm3 (Normal) Range: 4.4-11.0 2-Ohw-312399:26 Basic Metabolic Profile (BMP) Comments: Test performed at:[facility] Z[address]hmrszq8216 [place] [address] GAP 4 (Abnormal) Range: 5-15 CO2 33.0 mmol/L (Abnormal) Range: 21.0-32.0 CL 103 mmol/L (Normal) Range: 98-107 K 4.8 mmol/L (Normal) Range: 3.5-5.1 NA 140 mmol/L (Normal) Range: 136-145 CA 8.8 mg/dL (Normal) Range: 8.5-10.1 BUN/CRE 25.8 {RATIO} (Abnormal) Range: 10-20 CREAT,SERUM 1.2 mg/dL (Abnormal) Range: 0.6-1.0 BUN 31 mg/dL (Abnormal) Range: 7-18 GLU 108 mg/dL (Normal) Range: 70-110 [id number] Basic Metabolic Profile (BMP) Comments: Test performed at:[facility] [id number] [place], [place] [id number] GAP 4 (Abnormal) Range: 5-15 CO2 28.0 mmol/L (Normal) Range: 21.0-32.0 CL 106 mmol/L (Normal) Range: 98-107 K 4.3 mmol/L (Normal) Range: 3.5-5.1 NA 138 mmol/L (Normal) Range: 136-145 CA 8.8 mg/dL (Normal) Range: 8.5-10.1 BUN/CRE 26.0 {RATIO} (Abnormal) Range: 10-20 CREAT,SERUM 1.0 mg/dL (Normal) Range: 0.6-1.0 BUN 26 mg/dL (Abnormal) Range: 7-18 GLU 93 mg/dL (Normal) Range: 70-110 [id number] CBC W/Diff, Automated Comments: Test performed at:[facility] [id number] [place] [address] Absolute Lymph 2.60 {X10_3/ul} (Normal) Range: 0.83-4.51 [...] slightly hemolyzed. Results may be affected.Test performed at:[facility] [id number] [facility] [address] [place], [place] [id number] VLDL 19 mg/dL (Normal) Range: 5-40 LDL [...] slightly hemolyzed. Results may be affected.Test performed at:[facility] [id number] [place], [place] [id number] D BILI < 0.05 mg/dL (Normal) Range: [...] CHOL 226 mg/dL (Abnormal) Comments: <200 mg/dL [id number] mg/dL Borderline>240 mg/dL High Risk :47 LIVER [...] :47 TSH 3.05 {uIU/mL} (Normal) Range: 0.358-3.74 [id number] [facility]ORNA CULTURE-OTHER ([id number]) Comments: PATIENT NOT FASTINGPERFORMED BY: [facility] [place] [facility]Aomzeh4280 [facility] [id number] Information: SRC:THRT G95252 Result 1 RRF (Normal) Comments: Routine respiratory jesus Upper Respiratory Culture Final report (Normal) 56-Oex-24269:21 Rapid Strep Test, Office (09381) Rapid Strep Test, Office Negative (Normal) 78-Bkb-86057:00 BILAT SCRN DIGITAL & CAD Radiology Report [...] Jones M.D.January 04, 2013 at 10:41:52 AM [id number] Signed GP/GP If you are the referring physician and would like to consult with theradiologist who provided this interpretation, please contact Ne Huang at [phone]. If this radiologist is unavailable, youwill be directed to another radiologist to assist. If you are a patient with a question regarding this report, pleasecontactyour referring physician directly. Professional Interpretation Provided By: [employer], Phone , These documents contain legally protected [...] 01/04/13 1044 Sign by: Henry Jones MD 3-Ueq-430693:19 Hepatic Function Panel Comments: PATIENT WAS FASTINGPERFORMED BY: [facility]6370 [facility] [id number] Information: [id number] (7) ALT (SGPT) 23 [iU]/L (Normal) Range: 0-32 AST (SGOT) 21 [iU]/L (Normal) Range: 0-40 Alkaline Phosphatase, S 74 [iU]/L (Normal) Range: 25-165 Bilirubin, Direct 0.10 mg/dL Range: 0.00-0.40 (Normal) Albumin, Serum 4.3 g/dL (Normal) Range: 3.5-4.8 Bilirubin, Total 0.3 mg/dL (Normal) Range: 0.0-1.2 Protein, Total, Serum 6.7 g/dL (Normal) Range: 6.0-8.5 Written Authorization WAR (Normal) Comments: PATIENT WAS FASTINGPERFORMED BY: [place] [id number] [facility] [id number] :19 Comments: Written Authorization Received.Authorization received from DR BRO [id number] by Rachelle Porter :19 Metabolic Panel, Comprehensive Comments: PATIENT WAS FASTINGPERFORMED BY: [place] [id number] [facility] [id number] (09406) ALT (SGPT) 22 [iU]/L (Normal) Range: 0-32 [...] Glucose, Serum 89 mg/dL (Normal) Range: 65-99 4-Ora-294761:19 CBC with manual diff Comments: PATIENT WAS FASTINGPERFORMED BY: [facility]6370 [facility] [id number] Information: [id number] (78023) Immature Grans (Abs) 0.0 {x10E3/uL} (Normal) Range: [...] 3.77-5.28 WBC 4.6 {x10E3/uL} (Normal) Range: 4.0-10.5 5-Ggc-000103:19 Lipid Panel (47110) Comments: PATIENT WAS FASTINGPERFORMED BY: [facility] [id number] LDL/HDL Ratio 1.3 {ratio_units} (Normal) Range: 0.0-3.2 Cholesterol, Total 153 mg/dL (Normal) Range: 100-199 HDL Cholesterol 60 mg/dL (Normal) Comments: According to ATP-III Guidelines, HDL-C >59 mg/dL is considered anegative risk factor for CHD. LDL Cholesterol Calc 80 mg/dL (Normal) Range: 0-99 Triglycerides 65 mg/dL (Normal) Range: 0-149 VLDL Cholesterol Hector 13 mg/dL (Normal) Range: 5-40 1-Com-266831:19 TSH (74396) Comments: PATIENT WAS FASTINGPERFORMED BY: MailLift70 [facility] [id number] TSH 2.650 {uIU/mL} (Normal) Range: 0.450-4.500 16-Dpp-340137:14 Urinalysis, Office (22829) UA - BILIRUBIN Negative (Normal) UA - BLOOD Hemolyzed Small (Normal) UA - GLUCOSE Negative (Normal) UA - KETONES Negative mg/dL (Normal) UA - LEUKOCYTE ESTERASE Negative (Normal) UA - NITRITE Negative (Normal) UA - PH 7.0 (Normal) UA - PROTEIN Negative mg/dL (Normal) UA - SPECIFIC GRAVITY 1.015 (Normal) URINE UROBILINGN REYNA TIMED Normal mg/dL (Normal) 06-Bcw-124377:10 TSH (THYROID STIMULATING Comments: PATIENT WAS FASTINGPERFORMED BY: [employer] Urbktc7436 [facility] [id number] HORMONE) (49833) TSH 2.500 {uIU/mL} (Normal) Range: 0.450-4.500 :10 CALCIFEDIOL (74731) Comments: PATIENT WAS FASTINGPERFORMED BY: Glassful Oyaxao9187 [facility] [id number] Vitamin D, 25-Hydroxy 48.1 ng/mL (Normal) Range: 30.0-100.0 Comments: Vitamin D deficiency has been defined by the Cory ofMedicine and an Endocrine Society practice guideline as alevel of serum 25-OH vitamin D less than 20 ng/mL (1,2).The Endocrine Society went on to further define vitamin Dinsufficiency as a level between 21 and 29 ng/mL (2).1. IOM (Cory of Medicine). 2010. Dietary reference intakes for calcium and D. [place]: The National Academies Press.2. Roberto MF, Brody OCHOA, Maribell CADENA, et al. Evaluation, treatment, and prevention of vitamin D deficiency: an Endocrine Society clinical practice guideline. JCEM. 2010; 96(7):1911-30. 49-Mtw-744649:10 Lipid Panel (33286) Comments: PATIENT WAS FASTINGPERFORMED BY: [employer]6370 [facility] [id number] LDL/HDL Ratio 2.3 {ratio_units} (Normal) Range: 0.0-3.2 LDL Cholesterol Calc 117 mg/dL (Abnormal) Range: 0-99 VLDL Cholesterol Hector 16 mg/dL (Normal) Range: 5-40 HDL Cholesterol 52 mg/dL (Normal) Comments: According to ATP-III Guidelines, HDL-C >59 mg/dL is considered anegative risk factor for CHD. Triglycerides 78 mg/dL (Normal) Range: 0-149 Cholesterol, Total 185 mg/dL (Normal) Range: 100-199 20-Kbg-183851:10 HEPATIC FUNCTION PANEL Comments: PATIENT WAS FASTINGPERFORMED BY: [facility]Ugkshm9653 [facility] [id number] Information: [id number] (68298) ALT (SGPT) 21 [iU]/L (Normal) Range: 0-40 AST (SGOT) 20 [iU]/L (Normal) Range: 0-40 Alkaline Phosphatase, S 75 [iU]/L (Normal) Range: 25-165 Bilirubin, Direct 0.09 mg/dL (Normal) Range: 0.00-0.40 Albumin, Serum 4.0 g/dL (Normal) Range: 3.5-4.8 Bilirubin, Total 0.3 mg/dL (Normal) Range: 0.0-1.2 Protein, Total, Serum 6.5 g/dL (Normal) Range: 6.0-8.5 :41 TSH (36102) Comments: PATIENT NOT FASTINGPERFORMED BY: [address] [id number] Information: [id number] TSH 3.750 {uIU/mL} (Normal) Range: 0.450-4.500 :39 Prothrombin Time (PT) Comments: PERFORMED BY: [address] [id number] Prothrombin Time 39.0 {sec} (Abnormal) Range: 8.7-11.5 INR 3.6 (Abnormal) Range: 0.8-1.2 Comments: Client Requested Flag Reference interval is for non- anticoagulated patients. . Suggested INR therapeutic ra nge for Vitamin K antagonist therapy: Standard Dose (moderate intensity therapeutic range): 2.0 - 3.0 Higher intensity therapeutic range 2.5 - 3.5 :26 PT (PROTHROMBIN TIME) Comments: PATIENT NOT FASTINGPERFORMED BY: [facility]6370 [facility] [id number] Information: [id number] CC:[id number] (80679) Prothrombin Time 54.3 {sec} (Abnormal) Range: 8.7-11.5 [...] (Activated Partial Comments: PATIENT NOT FASTINGPERFORMED BY: [facility]6370 [facility] [id number] Thromboplastin Time) (31223) aPTT 39 {sec} (Abnormal) Range: 24-33 Comments: This test has not been validated for monitoring unfractionated heparintherapy. aPTT-based therapeutic ranges for unfractionated heparintherapy have not been established. For general guidelines onHeparin monitoring, refer to the [facility] Directory of Services. :51 PT (Prothrobim Time) Comments: PATIENT NOT FASTINGPERFORMED BY: [place] 6063970 [facility] [id number] Information: [id number] CC:[id number] (30859) Prothrombin Time 26.1 {sec} (Abnormal) Range: 8.7-11.5 INR 2.4 (Abnormal) Range: 0.8-1.2 Comments: Reference interval is for non-anticoagulated patients. . Suggested INR therapeutic range for Vitamin K anta gonist therapy: Standard Dose (moderate intensity therapeutic range): 2.0 - 3.0 Higher intensity therapeutic range 2.5 - 3.5 :43 HEPATIC FUNCTION PANEL Comments: PATIENT NOT FASTINGPERFORMED BY: [facility]6370 [facility] [id number] Information: [id number] (16776) ALT (SGPT) 25 [iU]/L (Normal) Range: 0-40 AST (SGOT) 19 [iU]/L (Normal) Range: 0-40 Alkaline Phosphatase, S 73 [iU]/L (Normal) Range: 25-165 Albumin, Serum 4.4 g/dL (Normal) Range: 3.5-4.8 Bilirubin, Direct 0.09 mg/dL (Normal) Range: 0.00-0.40 Bilirubin, Total 0.3 mg/dL (Normal) Range: 0.0-1.2 Protein, Total, Serum 6.4 g/dL (Normal) Range: 6.0-8.5 :18 Lipid Panel (36005) Comments: PATIENT NOT FASTINGPERFORMED BY: [employer] Yfyaxs7625 [facility] [id number] LDL/HDL Ratio 1.3 {ratio_units} (Normal) Range: 0.0-3.2 [...] FUNCTION PANEL Comments: PATIENT NOT FASTINGPERFORMED BY: [facility]6370 [facility]aceuticalsAt[facility] [id number] Information: [id number] (20947) ALT (SGPT) 60 [iU]/L (Abnormal) Range: 0-40 Alkaline Phosphatase, S 66 [iU]/L (Normal) Range: 25-165 AST (SGOT) 43 [iU]/L (Abnormal) Range: 0-40 Albumin, Serum 4.3 g/dL (Normal) Range: 3.5-4.8 Bilirubin, Direct 0.10 mg/dL (Normal) Range: 0.00-0.40 Bilirubin, Total 0.3 mg/dL (Normal) Range: 0.0-1.2 Protein, Total, Serum 6.7 g/dL (Normal) Range: 6.0-8.5 :18 CALCIFEDIOL (60579) Comments: PATIENT NOT FASTINGPERFORMED BY: Glassful Fxdmce3583 [facility] [id number] Vitamin D, 25-Hydroxy 57.3 ng/mL (Normal) Range: 32.0-100.0 Comments: Recent studies consider the lower limit of 32.0 ng/mL to be athreshold for optimal health.Baljit HOWELL. J Nutr. 2004;135(2):317-22. 1-Ewi-965877:49 Urinalysis, Office (31835) UA - BILIRUBIN Negative (Normal) UA - BLOOD Hemolyzed Moderate (Normal) UA - GLUCOSE Negative (Normal) UA - KETONES Negative mg/dL (Normal) UA - LEUKOCYTE ESTERASE Negative (Normal) UA - NITRITE Negative (Normal) UA - PH 7.5 (Normal) UA - PROTEIN Negative mg/dL (Normal) UA - SPECIFIC GRAVITY 1.015 (Normal) URINE UROBILINGN REYNA TIMED Normal mg/dL (Normal) 78-Led-866007:38 Urinalysis, Office (19415) UA - BILIRUBIN Negative (Normal) UA - [...] Panel, Basic Comments: PATIENT NOT FASTINGPERFORMED BY: [facility]CoV[facility]Rfzdif6431 [facility] [id number] Information: [id number] (31548) Calcium, Serum 9.6 mg/dL (Normal) Range: 8.6-10.2 [...] CULTURE-REYNA COL Comments: PATIENT NOT FASTINGPERFORMED BY: Glassful Sfcauf2941 [facility] [id number] Information: SRC:UR [id number] COUNT (75987) Result 1 NG36 (Normal) Comments: No growth in 36 - 48 hours. Urine Culture,Comprehensive Final report (Normal) :29 Urinalysis, Office (46460) UA - BILIRUBIN Negative (Normal) UA - BLOOD Non Hemolyzed Moderate (Normal) UA - GLUCOSE Negative (Normal) UA - KETONES Negative mg/dL (Normal) UA - LEUKOCYTE ESTERASE Trace (Normal) UA - NITRITE Negative (Normal) UA - PH 6.0 (Normal) UA - PROTEIN Negative mg/dL (Normal) UA - SPECIFIC GRAVITY 1.020 (Normal) URINE UROBILINGN REYNA TIMED Normal mg/dL (Normal) 78-Tml-766107:44 Microscopic Examination Comments: PATIENT WAS FASTINGPERFORMED BY: Glassful Xstzzh5101 [facility] [id number] Bacteria Few (Normal) Mucus Threads Present (Normal) Epithelial Cells (non renal) 0-10 {/hpf} (Normal) Range: 0 - 10 RBC 0-3 {/hpf} (Normal) Range: 0 - 3 WBC 0-5 {/hpf} (Normal) Range: 0 - 5 85-Wee-154352:44 CALCIFIDIOL (49463) VIT D 25 Comments: PATIENT WAS FASTINGPERFORMED BY: [facility]ful[facility])Ldkhwx9906 [facility] [id number] Vitamin D, 25-Hydroxy 28.6 ng/mL (Abnormal) Range: 32.0-100.0 Comments: Recent studies consider the lower limit of 32.0 ng/mL to be athreshold for optimal health.Baljit HOWELL. J Nutr. 2004;135(2):317-22. 17-Bri-131541:44 Folate (46637) Comments: PATIENT WAS FASTINGPERFORMED BY: [employer] [facility] ServicesC[facility] Wccrnd5780 [facility] [id number] Folate (Folic Acid), Serum 12.2 ng/mL (Normal) Comments: Indeterminate: 2.2 - 3.0 Deficient: <2.2 69-Pel-857007:44 VITAMIN B-12 (CYANOCOBALAMIN) Comments: PATIENT WAS FASTINGPERFORMED BY: [facility] ServicesTr[facility]6370 [facility] [id number] (22513) Vitamin B12 351 pg/mL (Normal) Range: 211-946 73-Uun-284346:44 SED RATE ERYTHROCYTE (24208) Comments: PATIENT WAS FASTINGPERFORMED BY: [facility]6370 [facility] [id number] Sedimentation Rate-Westergren 2 mm/h (Normal) Range: 0-30 74-Sbq-469651:44 RHEUMATOID FACTOR-QUANT (52715) Comments: PATIENT WAS FASTINGPERFORMED BY: [facility] ServicesTr[facility]6370 [facility] [id number] RA Latex Turbid. 10.5 {IU/mL} (Normal) Range: 0.0-13.9 40-Mxv-009371:44 C-REACTIVE PROTEIN (41476) Comments: PATIENT WAS FASTINGPERFORMED BY: [facility]6370 [facility] [id number] C-Reactive Protein, Quant 0.9 mg/L (Normal) Range: 0.0-4.9 35-Lsh-647110:44 JOANNA (ANTINUCLEAR ANTIBODY) Comments: PATIENT WAS FASTINGPERFORMED BY: [facility] ServicesTr[facility]6370 [facility] [id number] (88795) JOANNA Direct Negative (Normal) 06-Ssh-609783:44 LIPID PANEL (57308) Comments: PATIENT WAS FASTINGPERFORMED BY: [facility] Nexhdh7384 [facility] [id number] LDL Cholesterol Calc 140 mg/dL (Abnormal) Range: 0-99 LDL/HDL Ratio 1.8 {ratio_units} (Normal) Range: 0.0-3.2 HDL Cholesterol 77 mg/dL (Normal) Comments: According to ATP-III Guidelines, HDL-C >59 mg/dL is considered anegative risk factor for CHD. VLDL Cholesterol Hector 19 mg/dL (Normal) Range: 5-40 Triglycerides 97 mg/dL (Normal) Range: 0-149 Cholesterol, Total 236 mg/dL (Abnormal) Range: 100-199 :44 TSH (98096) Comments: PATIENT WAS FASTINGPERFORMED BY: [place] 6063970 [facility] [id number] TSH 1.670 {uIU/mL} (Normal) Range: 0.450-4.500 53-Zqc-578223:44 URINALYSIS, W/ MICRO (97446) Comments: PATIENT WAS FASTINGPERFORMED BY: [address] [id number] Microscopic Examination See below: (Normal) Bilirubin Negative (Normal) Ketones Negative (Normal) Nitrite, Urine Negative (Normal) Occult Blood 1+ (Abnormal) Urobilinogen,Semi-Qn 0.2 mg/dL (Normal) Range: 0.0-1.9 Glucose Negative (Normal) Protein Negative (Normal) Appearance Clear (Normal) pH 7.0 (Normal) Range: 5.0-7.5 Urine-Color Yellow (Normal) WBC Esterase Negative (Normal) Specific [place] 1.016 (Normal) Range: 1.005-1.030 :44 MICROALBUMIN: CREATININE RATIO Comments: PATIENT WAS FASTINGPERFORMED BY: [facility]6370 [facility] [id number] (80956) AND (82359) Microalb/Creat Ratio 2.8 {mg/g_creat} (Normal) Range: 0.0-30.0 Creatinine, Urine 61.0 mg/dL (Normal) Range: 15.0-278.0 Microalbumin, Urine 1.7 ug/mL (Normal) Range: 0.0-17.0 :44 METABOLIC PANEL, COMPREHENSIVE Comments: PATIENT WAS FASTINGPERFORMED BY: [place] 6063970 [facility] [id number] (44062) ALT (SGPT) 16 [iU]/L (Normal) Range: 0-40 [...] Glucose, Serum 92 mg/dL (Normal) Range: 65-99 56-Pdp-330299:44 CBC WITH MANUAL DIFF Comments: PATIENT WAS FASTINGPERFORMED BY: [facility]Ldtcbf5136 [facility] [id number] Information: [id number] (55110) Immature Grans (Abs) 0.0 {x10E3/uL} (Normal) Range: [...] 3.80-5.10 WBC 6.1 {x10E3/uL} (Normal) Range: 4.0-10.5 46-Amn-313699:11 BILAT [facility] DIGITAL & CAD Radiology Report See Note (Normal) Comments: Exam Number: [id number] MAMMOGRAPHY - BILATERAL SCREENING INDICATION:Routine annual screening [...] of attaching a ResultCode to this exam.ADDENDUM: [id number] HPBI/MDS Reported By: ELEANOR ERNANDEZ M.D. 8-Uzn-865105:01 TSH (48012) Comments: PATIENT NOT FASTINGPERFORMED BY: CB [facility] Wimyxe4709 [facility] [id number] Information: [id number] TSH 0.474 {uIU/mL} (Normal) Range: 0.450-4.500 :21 Thin prep Pap (70041) Comments: of cuff, has had hysterectomy; Source.............VaginalLMP / Prev Treat...HystNo. of containers..01 CYTYC Thin Prep VialPATIENT NOT FASTINGPERFORMED BY: [facility] [address] [id number] Information: [id number] Note: PAPSMR (Normal) Comments: The Pap smear [...] hysterectomy.V72.31 ; Routine gynecological exami [employer]ion [employer] (ASCP) 17-Ujk-408505:57 ABDOMEN/PELVIS W/WO CONTRAST Radiology Report See Note (Normal) Comments: Exam Number: [id number] CLINICAL:Hydronephrosis CT ABDOMEN AND PELVIS WITHOUT / [...] theright-sided hydronephrosis. Reported By: SAVANA AVELAR M.D. 3-Ges-198075:44 Urinalysis, Office (37581) UA - LEUKOCYTE ESTERASE Negative (Normal) UA - NITRITE Negative (Normal) URINE UROBILINGN REYNA TIMED Normal mg/dL (Normal) UA - PROTEIN Negative mg/dL (Normal) UA - PH 6.5 (Normal) UA - BLOOD Hemolyzed Trace (Normal) UA - SPECIFIC GRAVITY 1.010 (Normal) UA - KETONES Negative mg/dL (Normal) UA - BILIRUBIN Negative (Normal) UA - GLUCOSE Negative (Normal) 28-Uji-607910:45 KIDNEY (HP) Radiology Report See Note (Normal) Comments: Exam Number: [id number] CLINICAL:The patient is a 69-year-old female who [...] no hydronephrosis Reported By: ELEANOR ERNANDEZ M.D. 54-Vim-283478:14 BMP BUN/CRE 17.8 {RATIO} (Normal) Range: 10-20 [...] (Normal) GLU 90 mg/dL (Normal) Range: 70-110 95-Spv-269266:52 Iron and TIBC Comments: PATIENT NOT FASTINGPERFORMED BY: [facility]6370 [facility] [id number] Iron Saturation 21 % (Normal) Range: 15-55 Iron, Serum 55 ug/dL (Normal) Range: 35-155 UIBC 202 ug/dL (Normal) Range: 150-375 Iron Bind.Cap.(TIBC) 257 ug/dL (Normal) Range: 250-450 86-Vwn-321107:52 Renal function Panel (01339) Comments: PATIENT NOT FASTINGPERFORMED BY: Glassful Csuqpb7637 [facility] [id number] Albumin, Serum 3.7 g/dL (Normal) Range: 3.5-4.8 [...] Glucose, Serum 91 mg/dL (Normal) Range: 65-99 28-Blf-522214:52 Ferritin (49053) Comments: PATIENT NOT FASTINGPERFORMED BY: Glassful Pxpvuy6145 [facility] [id number] Ferritin, Serum 338 ng/mL (Abnormal) Range: 13-150 55-Ghb-598532:52 CBC with manual diff Comments: PATIENT NOT FASTINGPERFORMED BY: [facility]6370 [facility] [id number] Information: [id number] (75955) Baso (Absolute) 0.0 {x10E3/uL} (Normal) Range: 0.0-0.2 [...] 3.80-5.10 WBC 7.9 {x10E3/uL} (Normal) Range: 4.0-10.5 82-Lub-923027:20 TSH (96336) Comments: PATIENT NOT FASTINGPERFORMED BY: [place] 6063970 [facility] [id number] TSH 0.830 {uIU/mL} (Normal) Range: 0.450-4.500 62-Kow-798986:20 CBC with manual diff Comments: PATIENT NOT FASTINGPERFORMED BY: [place] 6063970 [facility] [id number] Information: [id number] (76370) Hematology Comments: Note: (Normal) Comments: Verified by [...] 3.80-5.10 WBC 21.6 {x10E3/uL} (Abnormal) Range: 4.0-10.5 26-Lpv-436507:58 Serum Protein Comments: PATIENT NOT FASTINGPERFORMED BY: [address] [id number] Information: ADD [id number] NO DRAW FEE Electrophoresis (SPEP) (96838) A/G Ratio 1.6 (Normal) Range: 0.7-2.0 Please note: SPRCS (Normal) Comments: Protein electrophoresis scan will follow via computer, mail, orcourier delivery. Vuzuy-0-Byerszls 0.2 g/dL (Normal) Range: 0.1-0.4 Dqcmz-2-Zzyvkmdw 0.6 g/dL (Normal) Range: 0.4-1.2 Beta Globulin 0.9 g/dL (Normal) Range: 0.6-1.3 Gamma Globulin 0.9 g/dL (Normal) Range: 0.5-1.6 Globulin, Total 2.6 g/dL (Normal) Range: 2.0-4.5 M-Slim Not Observed g/dL (Normal) Albumin 4.2 g/dL (Normal) Range: 3.2-5.6 Protein, Total, Serum 6.8 g/dL (Normal) Range: 6.0-8.5 84-Zne-146365:58 VITAMIN B-12 (CYANOCOBALAMIN) Comments: PATIENT NOT FASTINGPERFORMED BY: [facility]ift70 [facility] [id number] (16366) Vitamin B12 300 pg/mL (Normal) Range: 211-911 91-Vae-154711:58 SED RATE ERYTHROCYTE (86641) Comments: PATIENT NOT FASTINGPERFORMED BY: [facility]6370 [facility] [id number] Sedimentation Rate-Westergren 2 mm/h (Normal) Range: 0-30 56-Ylz-007944:20 CBC With Differential/Platelet Comments: PATIENT WAS FASTINGPERFORMED BY: [place]6370 [facility] [id number] Baso (Absolute) 0.1 {x10E3/uL} (Normal) Range: 0.0-0.2 [...] 3.80-5.10 WBC 5.4 {x10E3/uL} (Normal) Range: 4.0-10.5 70-Thb-532481:20 Comp. Metabolic Panel (14) Comments: PATIENT WAS FASTINGPERFORMED BY: [facility]Wgxndl9299 [facility] [id number] ALT (SGPT) 19 [iU]/L (Normal) Range: 0-40 [...] Glucose, Serum 95 mg/dL (Normal) Range: 65-99 79-Ojz-590660:20 Lipid Panel With LDL/HDL Comments: PATIENT WAS FASTINGPERFORMED BY: [facility] [id number] Ratio HDL Cholesterol 66 mg/dL (Normal) Comments: [...] 1.050 {uIU/mL} Comments: PATIENT WAS FASTINGPERFORMED BY: MailLift70 [facility] [id number] :20 (Normal) Range: 0.450-4.500 52-Pvk-04239:50 CBCD,SMEAR DIFF BAND 1 % (Normal) Range: [...] :50 TSH 1.25 {uIU/mL} (Normal) Range: 0.34-4.82 72-Lhy-298744:41 BILAT SCR[facility] DIGITAL & CAD Radiology Report See Note (Normal) Comments: Exam Number: [id number] MAMMOGRAM, BILATERAL SCREENING DIGITAL AND CAD HISTORYRoutine [...] mammograms werealso examined with computer-aided detection software ([employer] Reported By: ELEANOR ERNANDEZ M.D. :28 [...] :28 TSH 0.38 {uIU/mL} (Normal) Range: 0.34-4.82 5-Wut-943905:04 Rapid Strep Test, Office (37347) Rapid Strep Test, Office Negative (Normal) 25-Leh-261233:34 BILAT SCRN DIGITAL & CAD Radiology Report See Note (Normal) Comments: Exam Number: [id number] MAMMOGRAM, BILATERAL SCREENING DIGITAL AND CAD HISTORYRoutine [...] mammograms werealso examined with computer-aided detection software ([employer] Reported By: ELEANOR ERNANDEZ M.D. 49-Hjk-102017:31 DEXA BONE DENSITY STUDY (HP) Radiology Report See Note (Normal) Comments: Exam Number: [id number] BONE DENSITOMETRY HISTORYPostmenopausal. TECHNIQUE Bone densitometry of [...] withinnormal limits. Reported By: ELEANOR ERNANDEZ M.D. 20-Lzo-223335:39 COMP METABOLIC A/G 1.1 {RATIO} (Normal) Range: [...] : Follow up in 3 months with [facility] Indication: Hypertensive heart disease Hematuria, unspecified : FOLLOW UP IN 3 MONTHS [facility] Indication: Hematuria, unspecified Abnormal blood chemistry [...] Gen Med in Sep 2010 make apt [facility] per pt request Indication: Hydronephrosis Hydronephrosis : Follow up for well woman with [facility] per pt request Indication: Hydronephrosis Anemia : FOLLOW UP IN 2 WEEKS January 07 by [facility] Indication: Anemia Abdominal pain, acute, generalized : FOLLOW UP IN 1 WEEK with [facility] Indication: Abdominal pain, acute, generalized Diarrhea [...] Indication: Bronchitis Planned Observations Metabolic Panel, Comprehensive (28331)Indication: Hypercholesterolemia On: 7-Oaw-792969:52 Request Comments: Jun 2018 LIPID PANEL (36500)Indication: Hypercholesterolemia On: 3-Eeu-833000:51 Request Comments: Jun 2018 URINALYSIS (75261)Indication: Hypertension, essential, benign On: 58-Ioh-468703:52 Request MICROALBUMIN: CREATININE RATIO (79039) AND (80960)Indication: Hypertension, essential, benign On: 27-Raa-331219:52 Request Metabolic Panel, Comprehensive (60963)Indication: Hypertension, essential, benign On: 02-Jiy-387912:50 Request Comments: send to [facility] CBC, Platelets & Auto Diff (34325)Indication: Hypertension, essential, benign On: 95-Tzd-872969:50 Request Comments: send to [facility] TSH (40649)Indication: Hypothyroidism On: 68-Vfy-441036:50 Request Comments: send to [facility] LIPID PANEL (67261)Indication: Hypercholesterolemia On: 44-Nvk-985451:50 Request Comments: send to [facility] URINALYSIS ([id number])Indication: Hypertension, essential, benign On: 9-Hsh-984502:03 Request Comments: today MICROALBUMIN: CREATININE RATIO ([id number]) AND ([id number])Indication: Hypertension, essential, benign On: 2-Rmp-448497:03 Request Comments: today TSH ([id number])Indication: Hypothyroidism On: 7-Mds-148695:03 Request Comments: Jul 2017 MICROALBUMIN: CREATININE RATIO ([id number]) AND ([id number])Indication: Hypertension, essential, benign On: 50-Pbj-160325:51 Request Comments: Mar 2017 URINALYSIS ([id number])Indication: Hypertension, essential, benign On: 28-Fwv-226706:51 Request Comments: Mar 2017 TSH ([id number])Indication: Hypertension, essential, benign On: 50-Yxf-563697:51 Request Comments: Mar 2017 CBC, Platelets & Auto Diff ([id number])Indication: Hypertension, essential, benign On: 22-Mmq-194732:51 Request Comments: Mar 2017 Metabolic Panel, Comprehensive ([id number])Indication: Hypertension, essential, benign On: 38-Far-795388:51 Request TSH (THYROID STIMULATING HORMONE) ([id number])Indication: Hypothyroidism On: 06-Wfz-429382:53 Request HEPATIC FUNCTION PANEL (16733)Indication: Hypertension, essential, benign On: 12-Tfm-562720:47 Request VITAMIN B12 AND FOLATES (61915)Indication: Vitamin B 12 deficiency On: 5-Btr-965920:52 Request CALCIFEDIOL (96867)Indication: DEFICIENCY, VITAMIN D NOS On: 9-Hhe-484886:52 Request Urinalysis, Office (08553)Indication: Hematuria, unspecified On: 53-Ygf-510739:35 Request MICROALBUMIN URINE QUANT (87138)Indication: Hypertensive heart disease On: 41-Sru-387262:25 Request FECAL OCCULT HGB ASSAY- tubes sent home (41435)Indication: Well woman exam On: 3-Rph-374480:51 Request OCCULT BLOOD FECES SCREEN- card done in office (32346)Indication: Well woman exam On: 6-Inj-761154:51 Request Renal function Panel (76608)Indication: Hydronephrosis On: 7-Wiv-644696:22 Request Iron (34099)Indication: Anemia On: 22-Bja-747714:39 Request Iron Binding Capacity (TIBC) (97149)Indication: Anemia On: 85-Dkz-103551:39 Request OVA & PARASITE DIR SMEAR (61914)Indication: Diarrhea On: 75-Kmr-487709:50 Request OCCULT BLOOD FECES SCREEN (10194)Indication: Diarrhea On: 64-Fbf-381188:50 Request LEUKOCYTE COUNT, FECAL (08522)Indication: Diarrhea On: 33-Dmh-697643:50 Request C-DIFFICILE, STOOL (65730)Indication: Diarrhea On: 32-Fjn-174325:50 Request LORNA CULTURE-STOOL (94876)Indication: Diarrhea On: 47-Itc-080827:50 Request HEPATIC FUNCTION PANEL (90239)Indication: Hypercholesterolemia On: 25-Mgx-817285:46 Request Lipid Panel (16634)Indication: Hypercholesterolemia On: 15-Usd-950471:46 Request Comments: in three months (approximately) TSH (77569)Indication: Hypothyroidism On: 73-Snq-407758:06 Request METABOLIC PANEL, COMPREHENSIVE (14137)Indication: Hypertensive heart disease On: 87-Nlk-201852:06 Request LIPID PANEL (13499)Indication: Hypertensive heart disease On: 42-Jsj-654310:06 Request CBC WITH MANUAL DIFF (18420)Indication: Hypertensive heart disease On: 36-Cxm-515053:06 Request LORNA CULTURE-OTHER (67877)Indication: Pharyngitis, acute On: 6-Zvj-087007:04 Request CBC (Auto) (19304)Indication: Hypercholesterolemia On: :13 Request Lipid Panel (97767)Indication: Hypercholesterolemia On: 74-Izb-16746:13 Request Metabolic Panel, Comprehensive (09542)Indication: Hypercholesterolemia On: 43-Ieb-39769:13 Request Comments: in six months (approximately) TSH (40317)Indication: Hypothyroidism On: 06-Tyq-001359:06 Request LIPID PANEL ([id number])Indication: Hypertension On: 83-Lua-056421:01 Request Planned Encounters Medical; 3 Month FU - On: 14-Jun-2018 10:45 [facility] Sarai Bro CNP, CNP, Mary E Planned Procedures MAMMOGRAM BREAST BILATERAL On: 27-May-2018 Intent SCREENING DIGITAL ([id number])By: Sarai Bro CNP, CNP, Mary E Radiology - Femur - RightBy: Hang On: 02-Mar-2018 Intent Sarai CARNEY CNP, Mary E DEXA SCAN AXIAL SKELETON On: 19-Oct-2017 Intent (40935)By: Sarai Bro CNP, CNP, Mary E Aerosol Treatment ([id number])By: On: 07-Sep-2017 Intent Kelly Naqvi Comments: Lungs clear after aerosol treatment Flu Vaccine (Quadrivalent) On: 13-Apr-2017 Intent [id number]: Giselle Silva LPN Comments: InfluenzaLot #[id number]/18/18Site-L dltd, IMDose prefilled syringeVIS and ABN signedgiven by:ROSA MARIA cade MAMMOGRAM BREAST BILATERAL On: 05-Jan-2017 Intent SCREENING DIGITAL (53596)By: Hang Comments: after Apr 24 2017 Sarai CARNEY CNP, Mary E DEXA SCAN AXIAL SKELETON On: 05-Jan-2017 Intent ([id number])By: Sarai Bro CNP Comments: After Apr 24 2017 Sarai CARNEY Flu Vaccine (Quadrivalent) On: 06-Jul-2016 Intent [id number]: Giselle Silva LPN Comments: InfluenzaLot #Lot [id number]/30/17Site-L dltd, IMDose prefilled syringeVIS and ABN signedgiven by:ROSA MARIA cade MAMMOGRAM, SCREENING, BOTH BREAST On: 31-Mar-2016 Intent (02839)By: Sarai Bro CNP, CNP, Mary E MAMMOGRAM, SCREENING, BOTH BREAST On: 17-Feb-2016 Intent (13393)By: Sarai Bro CNP, CNP, Mary E PHYSICAL THERAPY EVALUATION On: 28-Jan-2016 Intent ([id number])By: Sarai Bro CNP, CNP, Mary E PHYSICAL THERAPY EVALUATION On: 28-Jan-2016 Intent (03721)By: Sarai Bro CNP, CNP, Mary E Toradol Injection, 30 mg On: 28-Jan-2016 Intent ([id number])By: Sarai Bro CNP, CNP, Mary E Radiology - Lumbar SpineBy: Hang On: 28-Jan-2016 Intent Sarai CARNEY CNP, Mary E Radiology - Knee - LeftBy: Hang On: 28-Jan-2016 Intent Sarai CARNEY CNP, Mary E Aerosol Treatment (61500)By: Hang On: 24-Dec-2015 Intent Sarai CARNEYbonita ANGELIKASarai Flu Vaccine (Quadrivalent) On: 10-May-2015 Intent 10375Pk: Hang CARNEY Rianna Cibonita Comments: Lot:[id number]:02/06/16Dose:0.5mLRoute:IMSite:L DltdGiven By:aKcie galaviz CNP Sarai Moon DEXA SCAN AXIAL SKELETON On: 19-Mar-2015 Intent (58093)By: Hang CARNEY RiannaRed Bro CNP Sarai Moon MAMMOGRAM, SCREENING, BOTH BREAST On: 11-Feb-2015 Intent ([id number])By: Hang CARNEY Rianna Ciwojciechyin CARNEY Sarai Moon DEXA SCAN AXIAL SKELETON On: 11-Feb-2015 Intent ([id number])By: Hang CARNEY RiannaRed Bro CNP Sarai Moon Solu -Medrol Injection, 125 mg On: 25-Jul-2014 Intent ([id number])By: aSrai Bro CNP Comments: [id number] 5.17right gm125 mgas, ROSA MARIA CARNEY Sarai Moon Aerosol Treatment (18567)By: Hang On: 25-Jul-2014 Intent Sarai CARNEY Tiffaniebonita ANGELIKA Sarai Moon Toradol Injection, 30 mg On: 18-Jul-2014 Intent ([id number])By: Hang CARNEY RiannaRed Bro CNP Sarai Moon Radiology - Lumbar SpineBy: Hang On: 18-Jul-2014 Intent ANGELIKASarai Tiffaniewojciechyin CARNEY Sarai Moon Radiology - Hip - RightBy: Hang On: 18-Jul-2014 Intent ANGELIKA Sarai Moon Tiffaniebonita ANGELIKA Sarai Moon Prevnar 13 ([id number])By: Ricardo CRANE, On: 16-Jul-2014 Intent Giselle Comments: [id number] arm, IMAS Bone Density StudyBy: Hang CARNEY, On: 15-May-2014 Intent Sarai Bro CNP Rianna ADMINISTRATION OF INFLUENZA VIRUS On: 15-May-2014 Intent VACCINE (G0008)By: Sarai Bro CNP, CNP Rianna FLU VAC, SPLIT, >3 YEARS, On: 15-May-2014 Intent INTRAMUSC (86046)By: Hang CARNEY, Comments: Lot:[id number]:04/24Dose:0.5mLRoute:IMSite:L DltdGiven By:JSONIA signed Sarai Moon Tiffaniebonita ANGELIKA Sarai Moon SPECIMEN HNDLNG/TRNSPRT, OFFC > On: 22-Mar-2014 Intent LAB ([id number])By: Hang CARNEY RiannaRed Bro CNP Rianna BILATERAL MAMMOGRAMS (82345)By: On: 18-Dec-2013 Intent Hang CARNEY Sarai Moon Tiffaniewojciechyin CARNEY Sarai Moon Aerosol Treatment (34579)By: Hang On: 22-Sep-2013 Intent ANGELIKA Sarai Moon Hang CARNEY Rianna Wax CurettesBy: Hang CARNEY Rianna On: 22-Sep-2013 Intent Hang CARNEY Rianna Ear Irrigation (13837)By: Hang On: 22-Sep-2013 Intent ANGELIKASarai Tiffaniewojciechyin CARNEY Sarai Moon Eprescribed prescriptions On: 18-Aug-2013 Intent (G8553)By: Lucrecia Vargas Eprescribed prescriptions On: 05-May-2013 Intent (G8553)By: Hang CARNEY RiannaRed Bro CNP Rianna ADMINISTRATION OF INFLUENZA VIRUS On: 05-May-2013 Intent VACCINE (G0008)By: Aristides CRANE, Comments: lot # [id number] 6.2014site- L dltdroute-IMdose- 0.5mlVIS and ABN signedBlessing Francis FLU VAC, SPLIT, >3 YEARS, On: 05-May-2013 Intent INTRAMUSC (16075)By: Penny Irving LPN MAMMOGRAM, SCREENING, BOTH BREASTS On: 16-Dec-2012 Intent ([id number])By: Hang CARNEY RiannaRed Bro CNP Rianna Spirometry (97995)By: Aristides CRANE, On: 16-Dec-2012 Intent Penny Comments: mild airway obstruction Aerosol Treatment (57907)By: Hang On: 30-Mar-2012 Intent ANGELIKA Sarai Moon Hang CARNEY Rianna PFT - CompleteBy: Sarai Bro CNP On: 01-Mar-2012 Intent Red Bro CNP Rianna Inhaler Demonstration ([id number])By: On: 28-Dec-2011 Intent Sarai Bro CNP, CNP, Mary E Pulse Oximetry (34488)By: Hang On: 28-Dec-2011 Intent Sarai CARNEY CNP, Mary E Eprescribed prescriptions On: 22-Apr-2011 Intent (G8553)By: Hang CARNEY, Sarai Bro CNP, Sarai Moon Eprescribed prescriptions On: 21-Oct-2010 Intent (G8553)By: Sarai Bro CNP, CNP, Sarai Moon Eprescribed prescriptions On: 21-Oct-2010 Intent (G8553)By: Sarai Bro CNP, CNP Sarai Moon MAMMOGRAM, SCREENING, BOTH BREASTS On: 15-Apr-2010 Intent (78228)By: Hang CARNEY Sarai Bro CNP Sarai Moon [...] SPLIT, >3 YEARS, On: 22-May-2009 Intent INTRAMUSC (57998)By: Kelle CRANE, Comments: Lot #[id number]-left deltoidgiven by:MELA Collins Pulse Oximetry (61447)By: Jay On: 25-Sep-2008 Intent PRESTON ADMINISTRATION OF INFLUENZA VIRUS On: 13-Jun-2008 Intent VACCINE (G0008)By: Aristides CRANE, Comments: lot #[id number] exp- 01/15site-left delroute-imdose- 0.5 Penny FLU VAC, SPLIT, >3 YEARS, On: 13-Jun-2008 Intent INTRAMUSC (68134)By: Penny Irving LPN MAMMOGRAM, SCREENING, BOTH BREASTS On: 28-May-2008 Intent (22273)By: Susan Lee MD M Bio Z (66382)By: Susan Lee MD On: 28-Nov-2007 Intent M SPECIMEN HNDLNG/TRNSPRT, OFFC > On: 12-Oct-2007 Intent LAB ([id number])By: Tyesha Ramos DO Bone Density StudyBy: Rosa CHRISTIANSEN, On: 18-Feb-2007 Intent Susan Sánchez Comments: ache in back MAMMOGRAM, SCREENING, BOTH BREASTS On: 18-Feb-2007 Intent (11362)By: Susan Lee MD Bio Z (13455)By: Susan Lee MD On: 20-Jul-2006 Intent M Planned Medications INJECTION, KETOROLAC TROMETHAMINE, PER 15 MG Ordered: 18-Jul-2014 Pending Ciesa [employer], Rianna Ciesa [employer], Rianna INJECTION, KETOROLAC TROMETHAMINE, PER 15 MG Ordered: 28-Jan-2016 Pending Ciesa [employer], Rianna Ciesa [employer], Rianna INJECTION, METHYLPREDNISOLONE SODIUM SUCCINATE, UP TO 125 MG Ordered: 25-Jul-2014 Pending Ciesa [employer], Rianna Ciesa [employer], Rianna Instructions Name Dates Details Nonsmoker : [...] health information online - Detail Indication: Poison ivteh Poison iveth : Patient Instructions Indication: Poison [...] patient does have durable power of attorney at law and living will. The patient has noticed nothing from the geriatic depression scale. Other providers contributing to the katty ent's care are rd project manager (Dr paz ), wiring technician (Dr aVzquez ), urologist (Dr Pope ) [...]
--- OUTSIDE RECORDS SUMMARY | 2018-10-30 18:33 | XMS RPT_ITS | Continuity of Care Document ---
:1940 Author Organization [facility] Address [address] [facility] [address] [place] [address] Phone Care Team Providers Name Role Phone Tiffaniebonita ANGELIKA, Rianna Unavailable Amanda CHRISTIANSEN, Higinio Longoria Unavailable Turner CHRISTIANSEN, Nahun Plaza Unavailable [facility] BC, Eugenie Tovar Unavailable [...] for 0 days Refills: 0 Ordered:22-Apr-2011 Slarb MASTER HEARTH TECHNICIAN, Giselle Start : 22-Apr-2011 Active COQ10, 100MG (Oral Capsule) 1 (one) Capsule Capsule daily for 0 days Quantity: 30 {Capsule} Refills: 0 Ordered:25-Jul-2014 Aristides MASTER HEARTH TECHNICIANPenny Start : 18-Jul-2014 Active Coreg 6.25 MG [...] : 18-Aug-2013 End : 28-Aug-2013 Inactive DRISDOL, 87057GBPE (Oral Capsule) 1 Capsule twice weekly for [...] Lower Extremity Result: Comments: See Note; NOTES: [facility] Cardiovascular Services [address] [place] [address] Venous Duplex US - Paulie Extrem 04/07/18 1000 MR#: [id number] Acct: [id number] Name: VALERIE CRAIN Rep #: [id number] : 1940 77 From: Higinio Patel MD [...] Dictated: 04/07/18 1000 Date Transcribed: 04/08/18 1605 Build Automation Engineer: Signed 02-Mar-2018 Femur Min 2 Views Result: Comments: See Note; NOTES: [facility] Imaging Services [address] [place] [address] Femur Min 2 Views MR#: [id number] Acct: [id number] Name: VALERIE CRAIN Rep #: [id number] : 1940 F 77 From: Christiano Croft MD PCP: Sarai Bro NP Status: REG CLI Study: Femur Min 2 Views Date of Exam: 03/02/18 Exam# [id number] Ordering Dr: Sarai Bro STUDY: X-RAY - [...] vice support , CC: Sarai Bro NP Build Automation Engineer: Signed 10-Feb-2018 Echocardiogram Complete Result: Comments: See Note; NOTES: [facility] Cardiovascular Services [address] [place] [address] Echo Complete 02/10/18 1100 MR#: [id number] Acct: [id number] Name: VALERIE CRAIN Rep #: [id number] : 1940 77 From: Amilcar Paz MD Attending Dr: Jennifer Goodwin Status: REG CLI Ordering Dr: Jennifer Goodwin Date: 02/10/18 Location: [facility] Sex: F C Admitted: [facility] For Study: DYSPNEA Procedure This was a [...] Date Amilcar Paz MD CC: Sarai Bro MANAGER EMS; Jennifer Goodwin Date Dictated: 02/10/18 1100 Date Transcribed: 02/10/18 1241 Build Automation Engineer: Signed 28-Jan-2018 Cardiology Visit Report Result: Comments: See Note; NOTES: [facility] [address] [place] [address] OFFICE VISIT Date of Service: 01/28/18 MR#: [id number] Acct: [id number] Name: VALERIE CRAIN Rep #: [id number] : 1940 Provider: Jennifer Goodwin Age/Sex: 77/F Location: [facility] Status: Signed HPI HPI Details: VALERIE [...] for her age. 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 She does [...] valve disorder (Chronic) Paroxysmal atrial fibrillation (Chronic) assisted (current) use of anticoagulants (Chronic) Benign essential [...] was generated using a voice recognition syst LibreDigital and there may be incorrect words, spelling or punctuation errors that were not noted when reviewing the office note prior to saving. Follow Up 6 Months (PHARMACY GENERAL MANAGER) Coding Level of Care Code Off [...] Downtime Report Result: Comments: See Note; NOTES: [facility] Medical Records Department [address] [place] [address] Downtime Report MR#: [id number] Acct: [id number] Name: VALERIE CRAIN Rep #: [id number] : 1940 77 From: Anuj Webster PCP: Sarai Bro NP Status: REG RCR This patient was seen during an EMR downtime January 10, 2018 - January 17, 2018. This patient may have a combination of pa per and electronic documentation or all paper documentation. All documentation is viewable within the e-chart portion of [email or web address] for each patient visit. 09-Nov-2017 Dexa Bone Density Study Result: Comments: See Note; NOTES: [facility] Imaging Services [address] [place] [address] Dexa Bone Density Study MR#: [id number] Acct: [id number] Name: VALERIE CRAIN Rep #: [id number] : 1940 F 77 From: Henry Jones MD PCP: Sarai Bro NP Status: REG CLI Study: Dexa Bone Density Study Date of Exam: 11/09/17 Exam# [id number] Ordering Dr: Sarai Bro STUDY: DUAL E [...] Henry Jones MD at 13:40 EDT Tel [phone], Service support , CC: Sarai Bro NP Build Automation Engineer: Signed 27-Jul-2017 Cardiology Visit Report Result: Comments: See Note; NOTES: [facility] [address] [place] [address] OFFICE VISIT Date of Service: 07/27/17 MR#: [id number] Acct: [id number] Name: SEAN CRAIN #: [id number] : 1940 Provider: Amilcar Paz MD Age/Sex: 77/F Location: [facility] Status: Signed HPI 6 M FU (pt [...] 07/27/17] Ejection fraction %: 40 to 44 [facility] Medical History Dilated cardiomyopathy (Chronic) Long-term use of high-risk medication (Chronic ) History of mitral valve disorder (Chronic) Paroxysmal atrial fibrillation (Chronic) assisted (current) use of anticoagulants (Chronic) Benign essential [...] Detail Follow Up 6 Months (mmm) 07/27/17 5480 <Electronically signed by Amilcar Paz MD> Date Amilcar Cummins Signature: Date (if applicable) CC: Sarai Bro MANAGER EMS 17-May-2017 SCREENING MAMM (CAD), BILAT Result: Comments: See Note; NOTES: [facility] Imaging Services [address] [place] [address] SCREENING MAMM (CAD), BILAT MR#: [id number] Acct: [id number] Name: SEAN CRAIN Rep #: [id number] : 1940 F 76 From: Henry Jones MD PCP: Sarai Bro Status: REG CLI Study: SCREENING MAMM (CAD), BILAT Date of Exam: 05/17/17 Exam# [id number] Ordering Dr: Sarai Bro MAMMOGRAPH Y - [...] delay biopsy of a clinically suspicious abnormality. [id number] Electronically Signed: Henry Jones MD at 10:21 EDT Tel [phone], Service support , CC: Sarai Bro Build Automation Engineer: Signed 27-Feb-2017 Carotid Duplex Ultrasound Result: Comments: See Note; NOTES: [facility] Cardiovascular Services [address] [place] [place] [address] Carotid Duplex Ultrasound 02/26/17 1046 MR#: [id number] Acct: [id number] Name: SEAN ABEBE Rep #: [id number] : 1940 76 From: Malcolm Hill MD [...] the left bulb. Procedure Carotid Duplex 9 5080. The exam was diagnostic. Exam performed in [...] Dictated: 02/26/17 1046 Date Transcribed: 02/27/17 1103 Build Automation Engineer: Signed 03-Sep-2016 Chest PA and Lateral Result: Comments: See Note; NOTES: [facility] Imaging Services [address] [place] [address] Verdana 4d Chest PA and Lateral MR#: [id number] Acct: [id number] Name: SEAN CRAIN Rep # : [id number] : 1940 F 76 From: Henry Jones MD PCP: Sarai Bro Status: REG CLI Study: Chest PA and Lateral Date of Exam: 09/03/16 Exam# [id number] Ordering Dr: Nahun Vazquez MD STUD Y: [...] Henry diop MD at 12:41 EST Tel [phone], Service support [phone], CC: Sarai Bro; Nahun Vazquez MD Build Automation Engineer: Signed 28-Aug-2016 Echocardiogram Complete Result: Comments: See Note; NOTES: [facility] Cardiovascular Services [address] [place] [address] Echo Complete 08/28/16 1003 MR#: [id number] Acct: [id number] Name: SEAN CRAIN p #: [id number] : 1940 76 From: Amilcar Paz MD Attending Dr: Amilcar Paz MD Status: REG CLI Ordering Dr: Amilcar Paz MD Date: 08/28/16 Location: [facility] Sex: F C Admitted: Reason For Study: AT [facility] F[facility] Procedure This was a 2D [...] Dictated: 08/28/16 1003 Date Transcribed: 08/28/16 1225 Build Automation Engineer: Signed 24-Apr-2016 Bilat Scrn Digital AND CAD Result: Comments: See Note; NOTES: [facility] Imaging Services [address] [facility] [place] [address] Verdana 4d Bilat Scrn Digital AND CAD MR#: [id number] Acct: [id number] Name: SEAN CRAIN Rep #: [id number] : 1940 F 75 From: Henry Jones MD PCP: Sarai Bro Status: REG CLI Study: Bilat Scrn Digital AND CAD Date of Exam: 04/24/16 Exam# [id number] Ordering Dr: Sarai Bro MAMMOGRAPHY - BILATERAL [...] significant change since the prior study. ___ [facility]/Bilat Scrn Digital AND CAD IMPRESSION: Stable bilateral screening mammogram. Yearly follow-up mammogram recommended. (A) ASSESSMENT CATEGORY: BIRADS Category 1: Negative. A letter regarding these results will be sent to the patient by the facility within 30 days. Approximately 10% of breast cancers are n ot detected by mammography. A normal mammogram should not delay biopsy of a clinically suspicious abnormality. [id number] Electronically Signed: Henry Jones MD at 10:58 EDT Tel [phone], Service support [phone], CC: Sarai Bro Build Automation Engineer: Signed 04-Mar-2016 PT D/C Summary (1) Result: Comments: See Note; NOTES: [facility] [address] [place] [address]. [address] [place], [place] [address] Fax REHABILITATION RVICES DISCHARGE SUMMARY MR#: [id number] Acct: [id number] Name: SEAN CRAIN Rep #: [id number] : 1940 75 From: Giselle NELSON Referring [...] please feel free to call me at [phone]. Thank you for the referral of this patie nt. Sincerely, Giselle Yan <Electronically signed by Giselle Yan MPT> 03/04/16 1917 CC: Sarai Bro Signed 04-Feb-2016 Inital Evaluation (1) - PT Result: Comments: See Note; NOTES: [facility] [address] [place], [place] [address] Fax REHABILITATION SE MEDEROS INITIAL EVALUATION MR#: [id number] Acct: [id number] Name: SEAN CRAIN Rep #: [id number] : 1940 75 From: Giselle Yan MPT Referring Dr.: Sarai Bro Status: REG RCR Insurance: MEDICARE PART A B [facility] Patient's Visit Information SEAN CRAIN is [...] to be FAXED BACK to us at [phone] for Medicare purposes . Please let me know if there are questions or concerns regarding this plan of care. Physician Signature: Date: <Electronical ly signed by Giselle Yan MPT> 02/04/16 1628 CC: Sarai Bro Signed For Medicare only, by signing this I certify the plan of care. Physicians Signature Date 28-Jan-2016 Knee 4 or More Views Result: Comments: See Note; NOTES: [facility] Imaging Services [address] [place] [address] Verdana 4d Knee 4 or More Views MR#: [id number] Acct: [id number] Name: SEAN DWYER Rep #: [id number] : 1940 F 75 From: Shreyas Beaver MD PCP: Sarai Bro Status: REG CLI Study: Knee 4 or More Views Date of Exam: 01/28/16 Exam# [id number] Ordering Dr: Sarai Bro STUDY: X-RAY - [...] MD at 19:39 EDT , Service support [phone], ORDER # : [id number] RAD/Knee 4 or More Views IMPRESSION: No acute abnormality. Mild degenerative changes. Electronically Signed: Shreyas Beaver MD at 19:39 EDT , Service sup port [phone], CC: Sarai Bro Build Automation Engineer: Signed 28-Jan-2016 L/S Spine Min 4 Views Result: Comments: See Note; NOTES: [facility] Imaging Services [address] [place] [address] Verdana 4d L/S Spine Min 4 Views MR#: [id number] Acct: [id number] Name: SEAN BERRIOS Rep #: [id number] : 1940 F 75 From: Shreyas Beaver MD PCP: Sarai Bro Status: REG CLI Study: L/S Spine Min 4 Views Date of Exam: 01/28/16 Exam# [id number] Ordering Dr: Shital Bro STUDY: X-RAY - [...] MD at 19:40 EDT , Service support [phone], Fax RAD/L/S Spine Min 4 Views IMPRESSION: No acute abnormality. Mild to moderate degenerative changes. Electronically Signed: Shreyas Beaver MD at 19:40 EDT T el [phone], Service support [phone], CC: Sarai Bro Build Automation Engineer: Signed 19-Mar-2015 Dexa Bone Density Study (HP) Result: Comments: See Note; NOTES: [facility] Imaging Services [address] [place] [address] Bone Density Report MR#: [id number] Acct: [id number] Name: SEAN CRAIN Rep #: [id number] : 1940 F 74 From: Henry Jones MD PCP: Sarai Bro Status: REG CLI Study: Dexa Bone Density Study (HP) Date of Exam: 03/19/15 Exam# [id number] Ordering Dr: Sarai Bro STUD Y: DUAL [...] Henry Jones MD at 14:35 EDT Tel [phone], Ubitexxic e support [phone], CC: Sarai Bro Build Automation Engineer: Signed 12-Mar-2015 Jero Edwards Digital AND CAD Result: Comments: See Note; NOTES: [facility] Imaging Services [address] [place] [address] Breast Imaging Report MR#: [id number] Acct: [id number] Name: SEAN CRAIN Rep #: [id number] : 1940 F 74 From: Henry Jones MD PCP: Sarai Bro Status: REG CLI Study: Bilat Scrn Digital AND CAD Date of Exam: 03/12/15 Exam# [id number] Ordering Dr: Sarai Bro MAMM OGRAPHY - [...] Jones MD 23/03/04 at 9:59 EDT Tel [phone], Service support [phone], CC: Sarai Bro Build Automation Engineer: Signed 16-Jan-2015 Operative Report Result: Comments: See Note; NOTES: [facility] Medical Records Department [address] [place] [address] Operative Report MR#: [id number] Acct: [id number] Name: SEAN CRAIN Rep #: [id number] : 1940 74 From: Amilcar Paz MD [...] care. Amilcar Paz MD T: NTS JOB: [id number] 01/16/15 0901 <Electronically signed by Amilcar Paz MD&amp ;#62; Date Amilcar Paz MD CC: Sarai Bro; Amilcar Paz MD Date Dictated: 01/14/151318 Date Transcribed: 01/14/151318 Build Automation Engineer: Signed 15-Jan-2015 Consultation Result: Comments: See Note; NOTES: [facility] Medical Records Department [address] [place] [address] Consultation MR#: [id number] Acct: [id number] Name: SEAN CRAIN Rep #: [id number] : 1940 74 From: Armando Waite MD [...] Nelson HENDERSON C: Amilcar Bro T: [facility] JOB: [id number] 01/15/15 0643 <Electronically signed by Armando Waite MD> Date Armando Waite MD CC: Sarai Bro; Armando Waite MD; Amilcar Paz MD Date Dictated: 01/14/15 1357 Date Transcribed: 01/14/151356 Build Automation Engineer: Signed 07-Jan-2015 Chest PA and Lateral Result: Comments: See Note; NOTES: [facility] Imaging Services [address] [place], [place] [address] Radiology Report MR#: [id number] Acct: [id number] Name: SEAN CRAIN Rep #: [id number] : 1940 F 74 From: Henry Jones MD PCP: Sarai Bro Status: PRE CLI Study: Chest PA and Lateral Date of Exam: 01/07/15 Exam# [id number] Ordering Dr: Amilcar Paz MD STUDY: X-RA [...] Henry Jones MD at 14:28 EDT Tel [phone], Service support [phone], RAD/Chest PA and Lateral IMPRESSION: Hyperinflation. No acute abnormality is seen. Electronically Signed: Henry Jones MD 2014 at 14:28 EDT Tel [phone], Service support [phone], CC: Sarai Bro; Amilcar Paz MD Build Automation Engineer: Signed 24-Dec-2014 Echocardiogram Complete Result: Comments: See Note; NOTES: [facility] Cardiovascular Services [address] [place] [address] Echo Complete 12/24/14 1003 MR#: [id number] Acct: [id number] Name: SEAN CRAIN Rep #: [id number] : 1940 74 From: Amilcar Paz MD [...] Dictated: 12/24/14 1003 Date Transcribed: 12/24/14 1359 Build Automation Engineer: Signed 19-Jul-2014 Hip min 2 Views Result: Comments: See Note; NOTES: [facility] Imaging Services [address] [place] [address] Radiology Report MR#: [id number] Acct: [id number] Name: SEAN CRAIN Rep #: [id number] : 1940 F 74 From: Henry Jones MD PCP: Sarai Bro Status: REG CLI Study: Hip min 2 Views Date of Exam: 07/19/14 Exam# [id number] Ordering Dr: Sarai Bro STUDY: X-RAY - [...] rative changes of the hip. Electronically Signed: Herny Jones MD at 11:38 EST Tel [phone], Service support [phone], RAD/Hip min 2 Views IMPRESSION: Degenerative changes of the hip. Electronically Signed: Henry Jones MD at 11:38 EST Tel [phone], Service support [phone], CC : Sarai rBo Build Automation Engineer: Signed 19-Jul-2014 L/S Spine Min 4 Views Result: Comments: See Note; NOTES: [facility] Imaging Services [address] [place] [address] Radiology Report MR#: [id number] Acct: [id number] Name: SEAN CRAIN Rep #: [id number] : 1940 F 74 From: Henyr Jones MD PCP: Sarai Bro Status: REG CLI Study: L/S Spine Min 4 Views Date of Exam: 07/19/14 Exam# [id number] Ordering Dr: Sarai Bro STUDY: X-RAY - [...] Henry Jones MD at 13:19 EST Tel [phone], Service support [phone], CC: Sarai Bro Build Automation Engineer: Signed 05-Jan-2014 Bilat Scrn Digital & CAD Result: Comments: See Note; NOTES: [facility] Imaging Services [address] [place] [address] Breast Imaging Report MR#: [id number] Acct: [id number] Name: SEAN CRAIN Rep #: [id number] : 1940 F 73 From: Henry Jones MD PCP: Status: REG CLI Exam# [id number] Ordering Dr: Sarai Bro MAMMOGRAPHY - BILATERAL [...] Henry Jones MD at 9:58 EDT Tel [phone], Service support [phone], CC: Sarai Bro; Amilcar Paz MD Build Automation Engineer: Signed Immunization Name Dates Details Influenza (3 years and up) on: 13-Jun-2008 Influenza (3 years and up) on: 22-May-2009 Comments: Lot #[id number] deltoidgiven by:CDH Family History Unknown Family Member Name Dates Details Father Comments: [place] at 48 & Status: Active Social History Name Dates Details Caffeine Use Comments: 2 cups coffee qd 1 soda qod Status: Active 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 Status: Inactive Tobacco use: Never smoker. Status: Inactive Vital Signs Date Test Result Details 29-Kit-514213:20 Temperature 99.4 f Comments: Method: Temporal Pulse [...] kg/m2 Body Surface Area Calculated 1.86 m2 83-Sxj-622550:16 Temperature 96.7 f Pulse 62 /min Comments: [...] Value Details :18 Prothrombin Time w/INR Comments: [facility] [address] [place], [address] INR 2.7 (Normal) PROTIME 28.4 s (Abnormal) Range: 11.7-14.9 :14 Prothrombin Time w/INR Comments: [facility] [address] [place], [address] INR 2.2 (Normal) PROTIME 24.6 s (Abnormal) Range: 11.7-14.9 :18 Prothrombin Time w/INR Comments: [facility] [address] [place], [address] INR 2.2 (Normal) PROTIME 24.3 s (Abnormal) Range: 11.7-14.9 :26 Prothrombin Time w/INR Comments: [facility] [address] [place], [address] INR 2.2 (Normal) PROTIME 24.6 s (Abnormal) Range: 11.7-14.9 :13 Prothrombin Time w/INR Comments: [facility] [address] [place], [address] INR 2.3 (Normal) PROTIME 25.7 s (Abnormal) Range: 11.7-14.9 :58 Prothrombin Time w/INR Comments: [facility] [address] [place], [address] INR 2.0 (Normal) PROTIME 22.8 s (Abnormal) Range: 11.7-14.9 :45 CBC W/Diff, Automated Comments: [facility] [address] [place], [address] ; another Absolute Lymph 2.13 [...] Range: 4.4-11.0 :45 Comprehensive Metabolic Profil Comments: [facility] [address] [place], [address] ; Dr Paz GAP 8 [...] Comments: Please note revised GLUCOSE reference range ujiysnmud62/02/2018. 48-Flm-73795:45 Lipid Profile Comments: [facility] [address] [place], [address] VLDL 17 mg/dL (Normal) Range: 5-40 LDL [...] 200-240 mg/dL Borderline >240 mg/dL High Risk 95-Cqe-12380:45 Microalb:Creat Ratio,Random UR Comments: [facility] [address] [place], [id number] MALB:CREAT 8.4 {mg/g_CRE} (Normal) MICROALBUMIN,UR 13.5 mg/L (Normal) UR CREAT 160.00 mg/dL (Normal) 35-Kfk-63387:45 Prothrombin Time w/INR Comments: [facility] [address] [place], [address] INR 1.9 (Normal) PROTIME 21.5 s (Abnormal) Range: 11.7-14.9 Comments: ADDENDA: cardio :45 Thyroid Stim Hormone (TSH) Comments: [facility] [address] [place], [address] TSH 2.92 {uIU/mL} (Normal) Range: 0.358-3.74 54-Psd-77294:45 Urinalysis, Routine (Dipstick) Comments: How was Urine Obtained? CLEAN [facility] [address] [place], [address] ; other doc LEUK ESTERASE 100 /ul (Abnormal) OCCULT BLOOD-UR 50 /ul (Abnormal) NITRITE UR Negative (Normal) UROBILI Normal mg/dL (Normal) PROT DIPSTX Negative mg/dL (Normal) pH UR 6.0 (Normal) Range: 5.0 - 8.0 SP.GR. DIPSTX 1.020 (Normal) Range: 1.002-1.030 KETONE UR Negative mg/dL (Normal) BILIRUBIN URINE Negative mg/dL (Normal) GLUCOSE, UR Normal mg/dL (Normal) CLARITY Cloudy (Normal) COLOR Yellow (Normal) 40-Liu-614382:31 Prothrombin Time w/INR Comments: [facility] [address] [place], [address] INR 2.1 (Normal) PROTIME 23.3 s (Abnormal) Range: 11.7-14.9 1-Ggv-800551:20 Prothrombin Time w/INR Comments: [facility] [address] [place], [address] INR 2.2 (Normal) Comments: ADDENDA: managed by cardio PROTIME 24.1 s (Abnormal) Range: 11.7-14.9 20-Abr-731254:40 Prothrombin Time w/INR Comments: [facility] [address] [place], [address] ; managed by cardio INR 2.0 (Normal) PROTIME 22.9 s (Abnormal) Range: 11.7-14.9 21-Vdn-008943:13 Prothrombin Time w/INR Comments: [facility] [address] [place], [address] INR 1.6 (Normal) PROTIME 19.5 s (Abnormal) Range: 11.7-14.9 24-Anb-247379:28 Prothrombin Time w/INR Comments: [facility] [address] [place], [address] ; cardio INR 1.8 (Normal) PROTIME 19.8 s (Abnormal) Range: 11.7-14.9 7-Emo-481690:53 Prothrombin Time w/INR Comments: [facility] [address] [place], [address] INR 2.4 (Normal) PROTIME 24.8 s (Abnormal) Range: 11.7-14.9 8-Ljs-346929:26 Prothrombin Time w/INR Comments: [place] [address] [place], [address] INR 1.9 (Normal) PROTIME 21.2 s (Abnormal) Range: 11.7-14.9 90-Zmw-487151:42 Rapid Flu (90546 x 2) Influenza A Ag POS B (Normal) 92-Zpj-372425:04 Prothrombin Time w/INR Comments: [facility] [address] [place], [address] ; cardio manages INR 1.4 (Normal) PROTIME 16.5 s (Abnormal) Range: 11.7-14.9 28-Vdn-390026:28 Prothrombin Time w/INR Comments: [facility] [address] [place], [address] INR 1.2 (Normal) PROTIME 14.3 s (Normal) Range: 11.7-14.9 4-Xor-070753:11 Prothrombin Time w/INR Comments: [address] [place], [address] INR 2.0 (Normal) PROTIME 21.6 s (Abnormal) Range: 11.7-14.9 59-Feg-080050:18 CBC W/Diff, Automated Comments: [address] [place], [place], [address] Absolute Lymph 2.38 {X10_3/ul} (Normal) Range: 0.83-4.51 [...] Range: 4.4-11.0 :18 Prothrombin Time w/INR Comments: [facility] [address] [place], [place], [id number] INR 2.1 (Normal) PROTIME 22.8 s (Abnormal) Range: 11.7-14.9 :52 POTASSIUM SERUM (10235) Comments: STAT; Order Date: 07/23/17Order Info: 2823-3 - KComments: [facility] [address] [place], [id number] K 4.4 mmol/L (Normal) Range: 3.5-5.1 14-Ckc-962093:56 Microscopic Examination Comments: PATIENT NOT FASTINGPERFORMED BY: [employer]70 Boyaa InteractiveFormerly [facility] [id number] Bacteria Few (Normal) Mucus Threads Present (Normal) Epithelial Cells (non renal) 0-10 {/hpf} (Normal) Range: 0 - 10 RBC 3-10 {/hpf} (Abnormal) Range: 0 - 2 WBC 0-5 {/hpf} (Normal) Range: 0 - 5 :56 VITAMIN B-12 (CYANOCOBALAMIN) Comments: PATIENT NOT FASTINGPERFORMED BY: TUNJIrp IPDIA MurrayLayerFormerly [facility] [id number] (49402) Vitamin B12 451 pg/mL (Normal) Range: 232-1245 Comments: Please note reference interval change :56 TSH (26033) Comments: PATIENT NOT FASTINGPERFORMED BY: TUNJIrp [address]5632 Boyaa Interactiveblin [place] [id number] TSH 2.910 {uIU/mL} (Normal) Range: 0.450-4.500 :56 URINALYSIS, W/ MICRO (01344) Comments: PATIENT NOT FASTINGPERFORMED BY: [facility]6370 [facility] [id number] Microscopic Examination See below: (Normal) Comments: Microscopic was indicated and was performed. Nitrite, Urine Negative (Normal) Urobilinogen,Semi-Qn 0.2 mg/dL (Normal) Range: 0.2-1.0 Bilirubin Negative (Normal) Occult Blood 1+ (Abnormal) Ketones Negative (Normal) Glucose Negative (Normal) Protein Negative (Normal) WBC Esterase Trace (Abnormal) Appearance Clear (Normal) Urine-Color Yellow (Normal) pH 7.0 (Normal) Range: 5.0-7.5 Specific Ucon 1.017 (Normal) Range: 1.005-1.030 :56 MICROALBUMIN: CREATININE RATIO Comments: PATIENT NOT FASTINGPERFORMED BY: [facility]6370 [facility] [id number] ([id number]) AND ([id number]) Microalb/Creat Ratio 7.4 {mg/g_creat} (Normal) Range: 0.0-30.0 Microalbumin, Urine 5.0 ug/mL (Normal) Creatinine, Urine 68.0 mg/dL (Normal) :56 METABOLIC PANEL, COMPREHENSIVE Comments: PATIENT NOT FASTINGPERFORMED BY: [facility]In[facility] Mullica HillXudnqu5705 [facility] [id number] ([id number]) ALT (SGPT) 18 [iU]/L (Normal) Range: 0-32 [...] Glucose, Serum 87 mg/dL (Normal) Range: 65-99 08-Fcf-155934:56 CBC W/AUTO DIFF WBC (76908) Comments: PATIENT NOT FASTINGPERFORMED BY: [facility] Twjgxg8973 [facility] [id number] Immature Grans (Abs) 0.0 {x10E3/uL} (Normal) Range: [...] Range: 3.4-10.8 :38 Prothrombin Time w/INR Comments: [facility] [address] [place], [address] INR 2.0 (Normal) PROTIME 22.0 s (Abnormal) Range: 11.7-14.9 :21 Prothrombin Time w/INR Comments: [facility] [address] [place], [address] INR 2.5 (Normal) PROTIME 26.0 s (Abnormal) Range: 11.7-14.9 :12 Lipid Profile Comments: Order Date: 12/04/16Order Info: 0788-1 - *Hepatic Function PanelOrder Info: 25509-6 - *Lipid Profile CC PCPComments: 12 hours fasting, may have water.[facility] [address] [place], [address] VLDL 21 mg/dL (Normal) Range: 5-40 LDL [...] Info: 0788-1 - *Hepatic Function PanelOrder Info: 54394-7 - *Lipid Profile CC PCPComments: 12 hours fasting, may have water.[facility] [address]trk[address]iq[address] [place], [place], [phone] D BILI 0.09 mg/dL (Normal) Range: 0.00-0.30 T BILI 0.50 mg/dL (Normal) Range: 0.20-1.00 ALT 21 U/L (Normal) Range: 12-78 ALK P 78 U/L (Normal) Range: 45-117 AST 16 U/L (Normal) Range: 15-37 GLOB 3.1 g/dL (Normal) Range: 2.2-4.2 ALB 3.5 g/dL (Normal) Range: 3.4-5.0 Comments: Please note revised Albumin AND Globulin reference rangeeffective 2017. T PROT 6.6 g/dL (Normal) Range: 6.4-8.2 00-Ags-331692:39 Prothrombin Time w/INR Comments: [facility] [address] [place], [place], [phone] INR 2.4 (Normal) PROTIME 24.9 s (Abnormal) Range: 11.7-14.9 :43 Prothrombin Time w/INR Comments: [facility] [address] [place], [place], [phone] INR 2.2 (Normal) PROTIME 23.9 s (Abnormal) Range: 11.7-14.9 :22 CBC W/Diff, Automated Comments: [address] [place], [place], [phone] ; OV 9/5 Absolute Lymph 2.11 {X10_3/ul} [...] Range: 4.4-11.0 09-Apr-20179:22 Comprehensive Metabolic Profil Comments: [facility] [address]ucb50[address] [place], [place], [phone] GAP 7 (Normal) Range: 5-15 CO2 33.0 [...] 70-110 :22 Thyroid Stim Hormone (TSH) Comments: [facility] [address]em[address] [place], [phone] TSH 3.52 {uIU/mL} (Normal) Range: 0.358-3.74 86-Nvi-061211:37 Prothrombin Time w/INR Comments: [facility] Kuwus[address]jic[address] [place], [phone] INR 2.1 (Normal) PROTIME 22.4 s (Abnormal) Range: 11.7-14.9 27-Zly-551856:12 Prothrombin Time w/INR Comments: PT ORDER IS AND T4 IS [facility] Qryhvguyhh40[address] [place], [phone](473) INR 2.1 (Normal) PROTIME 23.1 s (Abnormal) Range: 11.7-14.9 58-Xjv-203442:11 T4 Total, Thyroxin Comments: Order Date: 02/19/17Order Info: 3026-2 - *T4 (Total)Comments: Reason:Order Info: 3016-3 - *[facility]SH[facility] Egsbysyfwi[address] [place], [phone] T4 THYROXIN 7.2 ug/dL (Normal) Range: 4.8-13.9 23-Vmw-354367:11 Thyroid Stim Hormone (TSH) Comments: Order Date: 02/19/17Order Info: 3026-2 - *T4 (Total)Comments: Reason:Order Info: 3016-3 - *[facility] Djfgocnakv3606 [address] [place], [phone] TSH 1.56 {uIU/mL} (Normal) Range: 0.358-3.74 :37 Prothrombin Time w/INR Comments: [facility] [address]uvm[address] [place], [phone] INR 1.9 (Normal) PROTIME 21.4 s (Abnormal) Range: 11.7-14.9 2-Fxe-603629:50 Prothrombin Time w/INR Comments: [facility] Qliwvshgvd4[address] [place], [address] INR 2.0 (Normal) PROTIME 21.6 s (Abnormal) Range: 11.7-14.9 93-Lbl-556567:37 Prothrombin Time w/INR Comments: [facility] [address] [place], [phone] INR 2.5 (Normal) PROTIME 25.6 s (Abnormal) Range: 11.7-14.9 53-Uvj-458518:18 Prothrombin Time w/INR Comments: [facility] [address]ks[address]ua[address] [place], [phone] INR 2.1 (Normal) PROTIME 22.5 s (Abnormal) Range: 11.7-14.9 39-Mra-487293:17 Lipid Profile Comments: Order Date: 06/02/16Order Info: 0788- 1 - *Hepatic Function PanelDR.TOVA HOLLIEMOUNT DESERT ISLAND HOSPITALMARIMAR LIPID LIVEROrder Date: 06/02/16Order Info: [id number] - *Lipid Profile CC PCPComments: 12 hours fasting, may have watred lalaGal[facility] Hospital Iwamgibyzr63[address] [place], [phone] VLDL 31 mg/dL (Normal) Range: 5-40 LDL [...] 200-240 mg/dL Borderline >240 mg/dL High Risk 20-Xnn-841946:17 Liver Profile Comments: Order Date: 06/02/16Order Info: 0788- 1 - *Hepatic Function PanelDR.TOVA PTMICHELLE LIPID LIVEROrder Date: 06/02/16Order Info: [id number] - *Lipid Profile CC PCPComments: 12 hours fasting, may have mary lalaGal[facility] Hospital Inupsptzhl5367 [place], [address] D BILI 0.09 mg/dL (Normal) Range: 0.00-0.30 T BILI 0.50 mg/dL (Normal) Range: 0.20-1.00 ALT 28 U/L (Normal) Range: 12-78 ALK P 93 U/L (Normal) Range: 45-117 AST 21 U/L (Normal) Range: 15-37 GLOB 3.4 g/dL (Normal) Range: 2.3-3.5 ALB 4.0 g/dL (Normal) Range: 3.4-5.0 T PROT 7.4 g/dL (Normal) Range: 6.4-8.2 1-Awi-877145:32 Prothrombin Time w/INR Comments: [facility] [address] [place], [address] ; [place] manages INR 1.8 (Normal) PROTIME 20.2 s (Abnormal) Range: 11.7-14.9 71-Czd-659855:09 Prothrombin Time w/INR Comments: [facility] Bfnekkimnm[address] [place], [address] ; another doc INR 2.1 (Normal) PROTIME 23.1 s (Abnormal) Range: 11.7-14.9 45-Ryr-156000:10 Metabolic Panel, Comprehensive Comments: today; PATIENT NOT FASTINGPERFORMED BY: AZINAB LabCoInspira Medical Center Mullica HillMbutcb8737 [facility] [id number] ([id number]) ALT (SGPT) 16 [iU]/L (Normal) Range: 0-32 [...] Glucose, Serum 89 mg/dL (Normal) Range: 65-99 19-Gji-805569:26 Prothrombin Time w/INR Comments: [facility] Qaw[address]rmoei[address] [place], [address] INR 2.2 (Normal) PROTIME 23.7 s (Abnormal) Range: 11.7-14.9 29-Gwe-245787:52 CBC-Complete Blood Cnt No Diff Comments: [facility] Lleuhnltuy64[address] [place], [address] ; sibilia MPV 10.8 fL [...] 4.2-5.4 WBC 7.4 K/mm3 (Normal) Range: 4.4-11.0 98-Xwd-016518:58 Prothrombin Time w/INR Comments: [facility] Vqsracrtrg0910 [place], [address] INR 2.0 (Normal) PROTIME 22.4 s (Abnormal) Range: 11.7-14.9 94-Vub-499909:49 Prothrombin Time w/INR Comments: [facility] O[address]vcsahu[address] [place], [address] INR 2.0 (Normal) PROTIME 22.3 s (Abnormal) Range: 11.7-14.9 03-Lof-142302:54 CBC WITH MANUAL DIFF (01172) Comments: PATIENT NOT FASTINGPERFORMED BY: [facility]CoIn[facility] Mullica HillVodrcz5015 [facility] [id number] Immature Grans (Abs) 0.0 {x10E3/uL} (Normal) Range: [...] 3.77-5.28 WBC 6.2 {x10E3/uL} (Normal) Range: 3.4-10.8 60-Giz-552334:54 Metabolic Panel, Comprehensive Comments: PATIENT NOT FASTINGPERFORMED BY: [facility]CoIn[facility] Mullica HillGpmywg1788 [facility] [id number] ([id number]) ALT (SGPT) 18 [iU]/L (Normal) Range: 0-32 [...] Glucose, Serum 86 mg/dL (Normal) Range: 65-99 90-Djk-070601:54 TSH (80940) Comments: PATIENT NOT FASTINGPERFORMED BY: [facility]CoIn[facility] Mullica HillNotsnf0794 [facility] [id number] TSH 2.890 {uIU/mL} (Normal) Range: 0.450-4.500 74-Geb-441660:23 Prothrombin Time w/INR Comments: [facility] [address] [place], [address] ; managed by cardio INR 2.6 (Normal) PROTIME 27.4 s (Abnormal) Range: 11.7-14.9 10-Gok-85739:54 Prothrombin Time w/INR Comments: [facility] [address] [place], [address] ; another doc INR 2.0 (Normal) PROTIME 22.3 s (Abnormal) Range: 11.7-14.9 :53 Lipid Profile Comments: Order Date: 05/22/16 Order #: [id number] Community Hospital J[address]purdy[address] [place], [place], [address] VLDL 21 mg/dL (Normal) Range: 5-40 LDL [...] Profile Comments: Order Date: 05/22/16 Order #: [id number] Community Hospital K[address]puwokwu90[address] [place], [place], [address] D BILI < 0.05 mg/dL (Normal) Range: [...] Range: 6.4-8.2 :09 Prothrombin Time w/INR Comments: [facility] Kuxtvuobmx5871 [place], [address] INR 2.5 (Normal) PROTIME 26.3 s (Abnormal) Range: 11.7-14.9 :59 Prothrombin Time w/INR Comments: [facility] [address] [place], [phone] ; managed by cardio INR 2.9 (Normal) PROTIME 29.3 s (Abnormal) Range: 11.7-14.9 :05 Prothrombin Time w/INR Comments: [facility] Quen[address]oaq[address] [place], [phone] INR 2.0 (Normal) PROTIME 22.3 s (Abnormal) Range: 11.7-14.9 :11 Prothrombin Time w/INR Comments: [facility] V[address]flidpta[address] [place], [address] INR 2.7 (Normal) Comments: ADDENDA: managed by cardio PROTIME 27.7 s (Abnormal) Range: 11.7-14.9 :14 Prothrombin Time w/INR Comments: [facility] Dcefpne[address] [place], [phone] ; managed by Tova INR 2.7 (Normal) PROTIME 28.1 s (Abnormal) Range: 11.7-14.9 :45 Prothrombin Time w/INR Comments: [facility] [address]vcc[address] [place], [address] ; managed by cardio INR 3.1 (Normal) PROTIME 31.3 s (Abnormal) Range: 11.7-14.9 :27 Prothrombin Time w/INR Comments: [facility] [address]scj[address] [place], [address] ; managed by cardio INR 3.1 (Normal) PROTIME 31.1 s (Abnormal) Range: 11.7-14.9 :22 Prothrombin Time w/INR Comments: [facility] [address] [place], [address] INR 2.6 (Normal) PROTIME 27.4 s (Abnormal) Range: 11.7-14.9 16-Jan-20169:08 Prothrombin Time w/INR Comments: [facility] Lsvvongzgu6435 [place], [address] ; managed with Dr. paz INR 4.1 (Abnormal) Comments: CRITICAL VALUE REPEATED AND VERIFIED. CALLED TO [facility]01/16/16 1251 Elza Hinojosa.RESULTS READ BACK BY SAME . PROTIME 38.2 s (Abnormal) Range: 11.7-14.9 18-Vvv-314413:11 Microscopic Examination Comments: PATIENT WAS FASTINGPERFORMED BY: MoboFreeFormerly [facility] [id number] Bacteria None seen (Normal) Mucus Threads Present (Normal) Epithelial Cells (non renal) 0-10 {/hpf} (Normal) Range: 0 - 10 RBC 11-30 {/hpf} (Abnormal) Range: 0 - 2 WBC 0-5 {/hpf} (Normal) Range: 0 - 5 50-Acp-499308:11 MICROALBUMIN: CREATININE RATIO Comments: PATIENT WAS FASTINGPERFORMED BY: [employer]70 Boy[employer] InteractiveFormerly [facility] [id number] ([id number]) AND (53837) Microalb/Creat Ratio 11.4 {mg/g_creat} (Normal) Range: 0.0-30.0 Microalbumin, Urine 12.1 ug/mL (Normal) Comments: Please note reference interval change Creatinine, Urine 106.3 mg/dL (Normal) Comments: Please note reference interval change :11 URINALYSIS ([id number]) Comments: PATIENT WAS FASTINGPERFORMED BY: [employer]70 [facility] [id number] Microscopic Examination See below: (Normal) Comments: Microscopic was indicated and was performed. Nitrite, Urine Negative (Normal) Urobilinogen,Semi-Qn 0.2 mg/dL (Normal) Range: 0.2-1.0 Bilirubin Negative (Normal) Occult Blood 2+ (Abnormal) Ketones Negative (Normal) Glucose Negative (Normal) Protein Negative (Normal) WBC Esterase Negative (Normal) Appearance Clear (Normal) Urine-Color Yellow (Normal) pH 7.0 (Normal) Range: 5.0-7.5 Specific Ucon 1.018 (Normal) Range: 1.005-1.030 12-Tpp-923557:11 Metabolic Panel, Comments: PATIENT WAS FASTINGPERFORMED BY: [employer]70 [facility] [id number] Information: [id number] [facility] ([id number]) ALT (SGPT) 14 [iU]/L (Normal) Range: 0-32 [...] Glucose, Serum 91 mg/dL (Normal) Range: 65-99 79-Yvl-887004:11 TSH (54701) Comments: PATIENT WAS FASTINGPERFORMED BY: [employer]70 [facility] [id number] TSH 2.260 {uIU/mL} (Normal) Range: 0.450-4.500 :17 Prothrombin Time w/INR Comments: [facility] [address]nekr[address] [place], [address] INR 2.8 (Normal) PROTIME 28.4 s (Abnormal) Range: 11.7-14.9 :40 Lipid Profile Comments: [facility] Laiyfxxtnh[address] [place], [address] VLDL 22 mg/dL (Normal) Range: 5-40 [...] mg/dL High Risk :40 Liver Profile Comments: [facility] Bynhwfqejy7[address] [place], [address] D BILI 0.10 mg/dL (Normal) Range: 0.00-0.30 T BILI 0.60 mg/dL (Normal) Range: 0.20-1.00 ALT 26 U/L (Normal) Range: 12-78 ALK P 86 U/L (Normal) Range: 50-136 AST 20 U/L (Normal) Range: 15-37 GLOB 3.4 g/dL (Normal) Range: 2.3-3.5 ALB 3.9 g/dL (Normal) Range: 3.4-5.0 T PROT 7.3 g/dL (Normal) Range: 6.4-8.2 :26 Prothrombin Time w/INR Comments: [facility] Sdjagnqyrs6[address] [place], [address] INR 2.6 (Normal) Comments: ADDENDA: handled by cardio PROTIME 27.3 s (Abnormal) Range: 11.7-14.9 :40 Prothrombin Time w/INR Comments: [facility] [address] [place], [phone] INR 2.4 (Normal) PROTIME 26.4 s (Abnormal) Range: 11.7-14.9 :03 Prothrombin Time w/INR Comments: [facility] [address] [place], [phone] ; per pop up in EMR cardio manages INR INR 2.2 (Normal) PROTIME 24.5 s (Abnormal) Range: 11.7-14.9 :51 Prothrombin Time w/INR Comments: [facility] Krv[address]jmpjt[address] [place], [address] INR 1.6 (Normal) PROTIME 19.0 s (Abnormal) Range: 11.7-14.9 Comments: ADDENDA: managed by cardio :33 Prothrombin Time w/INR Comments: [facility] [address] [place], [phone] ; handled by cardio INR 2.1 (Normal) PROTIME 24.0 s (Abnormal) Range: 11.7-14.9 :02 Prothrombin Time w/INR Comments: [facility] Diuyabifek[address] [place], [address] INR 2.2 (Normal) PROTIME 24.1 s (Abnormal) Range: 11.7-14.9 :37 Prothrombin Time w/INR Comments: [facility] J[address]uhwbaum[address] [place], [address] INR 2.5 (Normal) PROTIME 26.7 s (Abnormal) Range: 11.7-14.9 :44 Prothrombin Time w/INR Comments: [facility] K[address]uq[address]ffv[address] [place], [phone] INR 2.2 (Normal) PROTIME 24.6 s (Abnormal) Range: 11.7-14.9 :15 Prothrombin Time w/INR Comments: [facility] Diprqvlzcl6[address] [place], [address] INR 1.6 (Normal) PROTIME 19.4 s (Abnormal) Range: 11.7-14.9 :36 Prothrombin Time w/INR Comments: [facility] Lpktvwaiir[address] [place], [address] INR 1.2 (Normal) PROTIME 15.3 s (Abnormal) Range: 11.7-14.9 :02 Prothrombin Time w/INR Comments: [facility] Gftclqunaz8620 [place], [address] INR 2.7 (Normal) PROTIME 29.0 s (Abnormal) Range: 11.7-14.9 :47 Lipid Profile Comments: [facility] Orzfkicegs3635 [place], [address] VLDL 20 mg/dL (Normal) Range: 5-40 [...] mg/dL High Risk :47 Liver Profile Comments: [facility] Gicmdfukfb9259 [place], [address] D BILI 0.09 mg/dL (Normal) Range: [...] Auto Diff Comments: PATIENT NOT FASTINGPERFORMED BY: [facility]CoIn[facility] Mullica HillOglwjf4893 [facility] [id number] Information: [id number] ([id number]) Immature Grans (Abs) 0.0 {x10E3/uL} (Normal) Range: [...] 3.77-5.28 WBC 6.2 {x10E3/uL} (Normal) Range: 3.4-10.8 4-Msu-748974:11 CALCIFEDIOL (43686) Comments: PATIENT NOT FASTINGPERFORMED BY: Ad KnightsInspira Medical Center Mullica HillIxrwty9389 [facility] [id number] Vitamin D, 25-Hydroxy 38.9 ng/mL (Normal) Range: 30.0-100.0 Comments: Vitamin D deficiency has been defined by the [place] ofMedicine and an Endocrine Society practice guideline as alevel of serum 25-OH vitamin D less than 20 ng/mL (1,2).The Endocrine Society went on to further define vitamin Dinsufficiency as a level between 21 and 29 ng/mL (2).1. IOM ([place] of Medicine). 2010. Dietary reference intakes for calcium and D. [place]: The National Academies Press.2. Roberto MF, Brody OCHOA, Maribell CADENA, et al. Evaluation, treatment, and prevention of vitamin D deficiency: an Endocrine Society clinical practice guideline. JCEM. 2010; 96(7):1911-30. 2-Ctr-545827:11 VITAMIN B12 AND FOLATES Comments: PATIENT NOT FASTINGPERFORMED BY: [facility] Gbvhcr5161 [facility] [id number] ([id number]) Folate (Folic Acid), Serum 10.4 ng/mL (Normal) Comments: A serum folate concentration of less than 3.1 ng/mL isconsidered to represent clinical deficiency. Vitamin B12 1651 pg/mL (Abnormal) Range: 211-946 8-Spo-839584:11 Metabolic Panel, Comprehensive Comments: PATIENT NOT FASTINGPERFORMED BY: [employer] [facility] Tlktta5111 [facility] [id number] ([id number]) ALT (SGPT) 15 [iU]/L (Normal) Range: 0-32 [...] Range: 65-99 09-May-20159:53 Prothrombin Time w/INR Comments: [facility] [address] [place] [address], [address] INR 1.9 (Normal) PROTIME 22.0 s (Abnormal) Range: 11.7-14.9 09-Zgr-742599:40 Prothrombin Time w/INR Comments: Test performed at:[facility] Iaqholdtni[address] [place] [address] INR 1.3 (Normal) PROTIME 16.3 s (Abnormal) Range: 11.7-14.9 47-Fhx-910446:03 Prothrombin Time w/INR Comments: Test performed at:[facility] Ybswfnbpt[address] [place] [address] INR 1.7 (Normal) PROTIME 20.4 s (Abnormal) Range: 11.7-14.9 9-Wij-642199:26 Prothrombin Time w/INR Comments: Test performed at:[facility] Huhhuzmnca[address] [place] [address] INR 1.2 (Normal) Comments: ADDENDA: managed by dr paz PROTIME 15.8 s (Abnormal) Range: 11.7-14.9 11-Wbg-063452:28 Prothrombin Time w/INR Comments: Test performed at:[facility] [address]xuvtwly[address] [place] [address] INR 1.2 (Normal) PROTIME 15.8 s (Abnormal) Range: 11.7-14.9 :54 Prothrombin Time w/INR Comments: Test performed at:[facility] Kyhtijryjw35[address] [place] [address] INR 2.5 (Normal) PROTIME 27.3 s (Abnormal) Range: 11.7-14.9 9-Jvg-145007:16 Prothrombin Time w/INR Comments: Test performed at:[facility] [address] [place] [address] INR 2.0 (Normal) PROTIME 23.2 s (Abnormal) Range: 11.7-14.9 55-Gcp-229523:29 Prothrombin Time w/INR Comments: Test performed at:[facility] [address] [place] [address] INR 2.8 (Normal) PROTIME 29.3 s (Abnormal) Range: 11.7-14.9 13-Rar-340987:06 Prothrombin Time w/INR Comments: Test performed at:[facility] [address] [place] [address] ; Dr Bella manages INR 2.1 (Normal) PROTIME 24.0 s (Abnormal) Range: 11.7-14.9 :45 Prothrombin Time w/INR Comments: Test performed at:[facility] [address] [place] [address] ; ordered by another INR 1.3 (Normal) PROTIME 16.5 s (Abnormal) Range: 11.7-14.9 :00 Prothrombin Time w/INR Comments: Test performed at:[facility] [address] [place] [address] INR 0.9 (Normal) PROTIME 12.7 s (Normal) Range: 11.7-14.9 3-Aoo-845589:05 Vitamin B12 and Folate Comments: PATIENT NOT FASTINGPERFORMED BY: [facility]6370 [facility] [id number] Information: [id number] Folate (Folic Acid), 7.8 ng/mL (Normal) Comments: A serum folate concentration of less than 3.1 ng/mL isconsidered to represent clinical deficiency. Serum Vitamin B12 1883 pg/mL Range: 211-946 (Abnormal) : Vitamin D, 42.8 ng/mL (Normal) Comments: PATIENT NOT FASTINGPERFORMED BY: [facility]CoIn[facility] Mullica HillJykbfd9031 [facility] [id number] 05 25-Hydroxy Range: 30.0-100.0 Comments: Vitamin D deficiency has been defined by the [place] ofMedicine and an Endocrine Society practice guideline as alevel of serum 25-OH vitamin D less than 20 ng/mL (1,2).The Endocrine Society went on to further define vitamin Dinsufficiency as a level between 21 and 29 ng/mL (2).1. IOM ([place] of Medicine). 2010. Dietary reference intakes for calcium and D. [place]: The National Academies Press.2. Roberto MF, Brody [place], Maribell CADENA, et al. Evaluation, treatment, and prevention of vitamin D deficiency: an Endocrine Society clinical practice guideline. JCEM. 2010; 96(7):1911-30. :04 CBC W/Diff, Automated Comments: Test performed at:[facility] [address]wtlfodl[address] [place] [address] Absolute Lymph 2.41 {X10_3/ul} (Normal) [...] 4.2-5.4 WBC 6.5 K/mm3 (Normal) Range: 4.4-11.0 5-Khm-940257:26 Basic Metabolic Profile (BMP) Comments: Test performed at:[facility] [address]kvwexg2656 [place] [address] GAP 4 (Abnormal) Range: 5-15 CO2 33.0 mmol/L (Abnormal) Range: 21.0-32.0 CL 103 mmol/L (Normal) Range: 98-107 K 4.8 mmol/L (Normal) Range: 3.5-5.1 NA 140 mmol/L (Normal) Range: 136-145 CA 8.8 mg/dL (Normal) Range: 8.5-10.1 BUN/CRE 25.8 {RATIO} (Abnormal) Range: 10-20 CREAT,SERUM 1.2 mg/dL (Abnormal) Range: 0.6-1.0 BUN 31 mg/dL (Abnormal) Range: 7-18 GLU 108 mg/dL (Normal) Range: 70-110 91-Fzq-159873:45 Basic Metabolic Profile (BMP) Comments: Test performed at:[facility] Azafwparjd9654 [place], [place] [id number](882) GAP 4 (Abnormal) Range: 5-15 CO2 28.0 mmol/L (Normal) Range: 21.0-32.0 CL 106 mmol/L (Normal) Range: 98-107 K 4.3 mmol/L (Normal) Range: 3.5-5.1 NA 138 mmol/L (Normal) Range: 136-145 CA 8.8 mg/dL (Normal) Range: 8.5-10.1 BUN/CRE 26.0 {RATIO} (Abnormal) Range: 10-20 CREAT,SERUM 1.0 mg/dL (Normal) Range: 0.6-1.0 BUN 26 mg/dL (Abnormal) Range: 7-18 GLU 93 mg/dL (Normal) Range: 70-110 [id number] CBC W/Diff, Automated Comments: Test performed at:[facility] [id number] [place] [address] Absolute Lymph 2.60 {X10_3/ul} (Normal) Range: 0.83-4.51 [...] slightly hemolyzed. Results may be affected.Test performed at:[facility] [id number] [facility] [address] [place], [place] [address] VLDL 19 mg/dL (Normal) Range: 5-40 LDL [...] slightly hemolyzed. Results may be affected.Test performed at:[facility] [address] [place], [place] [id number] D BILI < 0.05 mg/dL (Normal) Range: [...] CHOL 226 mg/dL (Abnormal) Comments: <200 mg/dL Qdfdiirbs684-490 mg/dL Borderline>240 mg/dL High Risk :47 LIVER [...] :47 TSH 3.05 {uIU/mL} (Normal) Range: 0.358-3.74 [id number] LORNA CULTURE-OTHER (15361) Comments: PATIENT NOT FASTINGPERFORMED BY: [facility]lic[facility] [id number] [id number] Information: SRC:THRT [id number] Result 1 RRF (Normal) Comments: Routine respiratory jesus Upper Respiratory Culture Final report (Normal) 89-Abh-07933:21 Rapid Strep Test, Office (20420) Rapid Strep Test, Office Negative (Normal) 96-Mfr-38161:00 BILAT SCRN DIGITAL & CAD Radiology Report [...] Jones M.D.January 04, 2013 at 10:41:52 AM [id number] Signed GP/GP If you are the referring physician and would like to consult with theradiologist who provided this interpretation, please contact Ne Huang at [phone]. If this radiologist is unavailable, youwill be directed to another radiologist to assist. If you are a patient with a question regarding this report, pleasecontactyour referring physician directly. Professional Interpretation Provided By: Powered by [employer], Phone , These documents contain legally protected [...] 01/04/13 1044 Sign by: Henry Jones MD 8-Jfe-617912:19 Hepatic Function Panel Comments: PATIENT WAS FASTINGPERFORMED BY: [facility]6370 [facility] [id number] Information: [id number] (7) ALT (SGPT) 23 [iU]/L (Normal) Range: 0-32 AST (SGOT) 21 [iU]/L (Normal) Range: 0-40 Alkaline Phosphatase, S 74 [iU]/L (Normal) Range: 25-165 Bilirubin, Direct 0.10 mg/dL Range: 0.00-0.40 (Normal) Albumin, Serum 4.3 g/dL (Normal) Range: 3.5-4.8 Bilirubin, Total 0.3 mg/dL (Normal) Range: 0.0-1.2 Protein, Total, Serum 6.7 g/dL (Normal) Range: 6.0-8.5 Written Authorization WAR (Normal) Comments: PATIENT WAS FASTINGPERFORMED BY: [place] 7352770 [facility] [id number] :19 Comments: Written Authorization Received.Authorization received from DR BRO 30-04-3164Bhxtas by Rachelle Porter :19 Metabolic Panel, Comprehensive Comments: PATIENT WAS FASTINGPERFORMED BY: [place] 7352770 [facility] [id number] (03723) ALT (SGPT) 22 [iU]/L (Normal) Range: 0-32 [...] Glucose, Serum 89 mg/dL (Normal) Range: 65-99 8-Thk-120551:19 CBC with manual diff Comments: PATIENT WAS FASTINGPERFORMED BY: [facility] [id number] Information: [id number] (78872) Immature Grans (Abs) 0.0 {x10E3/uL} (Normal) Range: [...] 3.77-5.28 WBC 4.6 {x10E3/uL} (Normal) Range: 4.0-10.5 9-Rdb-196288:19 Lipid Panel (99129) Comments: PATIENT WAS FASTINGPERFORMED BY: [employer] [facility] [id number] LDL/HDL Ratio 1.3 {ratio_units} (Normal) Range: 0.0-3.2 Cholesterol, Total 153 mg/dL (Normal) Range: 100-199 HDL Cholesterol 60 mg/dL (Normal) Comments: According to ATP-III Guidelines, HDL-C >59 mg/dL is considered anegative risk factor for CHD. LDL Cholesterol Calc 80 mg/dL (Normal) Range: 0-99 Triglycerides 65 mg/dL (Normal) Range: 0-149 VLDL Cholesterol Hector 13 mg/dL (Normal) Range: 5-40 3-Iyt-795834:19 TSH (02867) Comments: PATIENT WAS FASTINGPERFORMED BY: [employer]70 [facility] [id number] TSH 2.650 {uIU/mL} (Normal) Range: 0.450-4.500 30-Mvr-947309:14 Urinalysis, Office (70821) UA - BILIRUBIN Negative (Normal) UA - BLOOD Hemolyzed Small (Normal) UA - GLUCOSE Negative (Normal) UA - KETONES Negative mg/dL (Normal) UA - LEUKOCYTE ESTERASE Negative (Normal) UA - NITRITE Negative (Normal) UA - PH 7.0 (Normal) UA - PROTEIN Negative mg/dL (Normal) UA - SPECIFIC GRAVITY 1.015 (Normal) URINE UROBILINGN REYNA TIMED Normal mg/dL (Normal) 73-Cqd-836748:10 TSH (THYROID STIMULATING Comments: PATIENT WAS FASTINGPERFORMED BY: TUNJI Qcunwh9995 [facility] [id number] HORMONE) (23128) TSH 2.500 {uIU/mL} (Normal) Range: 0.450-4.500 :10 CALCIFEDIOL (82215) Comments: PATIENT WAS FASTINGPERFORMED BY: [facility] Iqnjrl9608 [facility] [id number] Vitamin D, 25-Hydroxy 48.1 ng/mL (Normal) Range: 30.0-100.0 Comments: Vitamin D deficiency has been defined by the [place] ofMedicine and an Endocrine Society practice guideline as alevel of serum 25-OH vitamin D less than 20 ng/mL (1,2).The Endocrine Society went on to further define vitamin Dinsufficiency as a level between 21 and 29 ng/mL (2).1. IOM ([place] of Medicine). 2010. Dietary reference intakes for calcium and D. [place]: The National Academies Press.2. Roberto MF, Brody OCHOA, Maribell CADENA, et al. Evaluation, treatment, and prevention of vitamin D deficiency: an Endocrine Society clinical practice guideline. JCEM. 2010; 96(7):1911-30. 50-Ozd-040450:10 Lipid Panel (68920) Comments: PATIENT WAS FASTINGPERFORMED BY: [employer]6370 [facility] [id number] LDL/HDL Ratio 2.3 {ratio_units} (Normal) Range: 0.0-3.2 LDL Cholesterol Calc 117 mg/dL (Abnormal) Range: 0-99 VLDL Cholesterol Hector 16 mg/dL (Normal) Range: 5-40 HDL Cholesterol 52 mg/dL (Normal) Comments: According to ATP-III Guidelines, HDL-C >59 mg/dL is considered anegative risk factor for CHD. Triglycerides 78 mg/dL (Normal) Range: 0-149 Cholesterol, Total 185 mg/dL (Normal) Range: 100-199 92-Ndm-505528:10 HEPATIC FUNCTION PANEL Comments: PATIENT WAS FASTINGPERFORMED BY: [facility] KnightsInsp[facility] Mullica HillOfrzpf0868 [facility] [id number] Information: [id number] (26390) ALT (SGPT) 21 [iU]/L (Normal) Range: 0-40 AST (SGOT) 20 [iU]/L (Normal) Range: 0-40 Alkaline Phosphatase, S 75 [iU]/L (Normal) Range: 25-165 Bilirubin, Direct 0.09 mg/dL (Normal) Range: 0.00-0.40 Albumin, Serum 4.0 g/dL (Normal) Range: 3.5-4.8 Bilirubin, Total 0.3 mg/dL (Normal) Range: 0.0-1.2 Protein, Total, Serum 6.5 g/dL (Normal) Range: 6.0-8.5 :41 TSH (25134) Comments: PATIENT NOT FASTINGPERFORMED BY: [address] [id number] Information: [id number] TSH 3.750 {uIU/mL} (Normal) Range: 0.450-4.500 :39 Prothrombin Time (PT) Comments: PERFORMED BY: [address] [id number] Prothrombin Time 39.0 {sec} (Abnormal) Range: 8.7-11.5 INR 3.6 (Abnormal) Range: 0.8-1.2 Comments: Client Requested Flag Reference interval is for non- anticoagulated patients. . Suggested INR therapeutic ra nge for Vitamin K antagonist therapy: Standard Dose (moderate intensity therapeutic range): 2.0 - 3.0 Higher intensity therapeutic range 2.5 - 3.5 :26 PT (PROTHROMBIN TIME) Comments: PATIENT NOT FASTINGPERFORMED BY: [facility]6370 [facility] [id number] Information: [id number] CC:[id number] (00295) Prothrombin Time 54.3 {sec} (Abnormal) Range: 8.7-11.5 [...] (Activated Partial Comments: PATIENT NOT FASTINGPERFORMED BY: [facility]6370 [facility] [id number] Thromboplastin Time) (54294) aPTT 39 {sec} (Abnormal) Range: 24-33 Comments: This test has not been validated for monitoring unfractionated heparintherapy. aPTT-based therapeutic ranges for unfractionated heparintherapy have not been established. For general guidelines onHeparin monitoring, refer to the [facility] Directory of Services. :51 PT (Prothrobim Time) Comments: PATIENT NOT FASTINGPERFORMED BY: [place] 7352770 [facility] [id number] Information: [id number] CC:[id number] (76398) Prothrombin Time 26.1 {sec} (Abnormal) Range: 8.7-11.5 INR 2.4 (Abnormal) Range: 0.8-1.2 Comments: Reference interval is for non-anticoagulated patients. . Suggested INR therapeutic range for Vitamin K anta gonist therapy: Standard Dose (moderate intensity therapeutic range): 2.0 - 3.0 Higher intensity therapeutic range 2.5 - 3.5 :43 HEPATIC FUNCTION PANEL Comments: PATIENT NOT FASTINGPERFORMED BY: [facility]6370 [facility] [id number] Information: [id number] (96987) ALT (SGPT) 25 [iU]/L (Normal) Range: 0-40 AST (SGOT) 19 [iU]/L (Normal) Range: 0-40 Alkaline Phosphatase, S 73 [iU]/L (Normal) Range: 25-165 Albumin, Serum 4.4 g/dL (Normal) Range: 3.5-4.8 Bilirubin, Direct 0.09 mg/dL (Normal) Range: 0.00-0.40 Bilirubin, Total 0.3 mg/dL (Normal) Range: 0.0-1.2 Protein, Total, Serum 6.4 g/dL (Normal) Range: 6.0-8.5 :18 Lipid Panel (31729) Comments: PATIENT NOT FASTINGPERFORMED BY: TUNJI Qrkaeh5359 [facility] [id number] LDL/HDL Ratio 1.3 {ratio_units} (Normal) Range: 0.0-3.2 [...] FUNCTION PANEL Comments: PATIENT NOT FASTINGPERFORMED BY: [employer]6370 [facility] [id number] Information: [id number] (02826) ALT (SGPT) 60 [iU]/L (Abnormal) Range: 0-40 Alkaline Phosphatase, S 66 [iU]/L (Normal) Range: 25-165 AST (SGOT) 43 [iU]/L (Abnormal) Range: 0-40 Albumin, Serum 4.3 g/dL (Normal) Range: 3.5-4.8 Bilirubin, Direct 0.10 mg/dL (Normal) Range: 0.00-0.40 Bilirubin, Total 0.3 mg/dL (Normal) Range: 0.0-1.2 Protein, Total, Serum 6.7 g/dL (Normal) Range: 6.0-8.5 :18 CALCIFEDIOL (72085) Comments: PATIENT NOT FASTINGPERFORMED BY: [facility] Evemkm3513 [facility] [id number] Vitamin D, 25-Hydroxy 57.3 ng/mL (Normal) Range: 32.0-100.0 Comments: Recent studies consider the lower limit of 32.0 ng/mL to be athreshold for optimal health.Baljit HOWELL. J Nutr. 2004;135(2):317-22. 4-Uqw-026596:49 Urinalysis, Office (63203) UA - BILIRUBIN Negative (Normal) UA - BLOOD Hemolyzed Moderate (Normal) UA - GLUCOSE Negative (Normal) UA - KETONES Negative mg/dL (Normal) UA - LEUKOCYTE ESTERASE Negative (Normal) UA - NITRITE Negative (Normal) UA - PH 7.5 (Normal) UA - PROTEIN Negative mg/dL (Normal) UA - SPECIFIC GRAVITY 1.015 (Normal) URINE UROBILINGN REYNA TIMED Normal mg/dL (Normal) 55-Dmt-105470:38 Urinalysis, Office (09536) UA - BILIRUBIN Negative (Normal) UA - [...] NOT FASTINGPERFORMED BY: [facility] Mullica HillSmosgx9731 [facility] [id number] Information: [id number] (23492) Calcium, Serum 9.6 mg/dL (Normal) Range: 8.6-10.2 [...] CULTURE-REYNA COL Comments: PATIENT NOT FASTINGPERFORMED BY: [facility] Vdykux6988 [facility] [id number] Information: SRC:UR [id number] COUNT (80157) Result 1 NG36 (Normal) Comments: No growth in 36 - 48 hours. Urine Culture,Comprehensive Final report (Normal) :29 Urinalysis, Office (75663) UA - BILIRUBIN Negative (Normal) UA - BLOOD Non Hemolyzed Moderate (Normal) UA - GLUCOSE Negative (Normal) UA - KETONES Negative mg/dL (Normal) UA - LEUKOCYTE ESTERASE Trace (Normal) UA - NITRITE Negative (Normal) UA - PH 6.0 (Normal) UA - PROTEIN Negative mg/dL (Normal) UA - SPECIFIC GRAVITY 1.020 (Normal) URINE UROBILINGN REYNA TIMED Normal mg/dL (Normal) 36-Fed-689518:44 Microscopic Examination Comments: PATIENT WAS FASTINGPERFORMED BY: [facility] Wmimhp4106 [facility] [id number] Bacteria Few (Normal) Mucus Threads Present (Normal) Epithelial Cells (non renal) 0-10 {/hpf} (Normal) Range: 0 - 10 RBC 0-3 {/hpf} (Normal) Range: 0 - 3 WBC 0-5 {/hpf} (Normal) Range: 0 - 5 50-Xrf-689160:44 CALCIFIDIOL (76708) VIT D 25 Comments: PATIENT WAS FASTINGPERFORMED BY: [facility] KnightsInsp[facility] Center Mullica HillYzbxpq8879 [facility] [id number] Vitamin D, 25-Hydroxy 28.6 ng/mL (Abnormal) Range: 32.0-100.0 Comments: Recent studies consider the lower limit of 32.0 ng/mL to be athreshold for optimal health.Baljit HOWELL. J Nutr. 2004;135(2):317-22. 18-Efc-134324:44 Folate (50140) Comments: PATIENT WAS FASTINGPERFORMED BY: [facility] Yfxvxu2284 [facility] [id number] Folate (Folic Acid), Serum 12.2 ng/mL (Normal) Comments: Indeterminate: 2.2 - 3.0 Deficient: <2.2 60-Pjg-664863:44 VITAMIN B-12 (CYANOCOBALAMIN) Comments: PATIENT WAS FASTINGPERFORMED BY: [facility]6370 [facility] [id number] (08023) Vitamin B12 351 pg/mL (Normal) Range: 211-946 87-Xbz-814226:44 SED RATE ERYTHROCYTE (22922) Comments: PATIENT WAS FASTINGPERFORMED BY: [facility]6370 [facility] [id number] Sedimentation Rate-Westergren 2 mm/h (Normal) Range: 0-30 05-Eer-349790:44 RHEUMATOID FACTOR-QUANT (54827) Comments: PATIENT WAS FASTINGPERFORMED BY: [facility]6370 [facility] [id number] RA Latex Turbid. 10.5 {IU/mL} (Normal) Range: 0.0-13.9 15-Gwi-798436:44 C-REACTIVE PROTEIN (23305) Comments: PATIENT WAS FASTINGPERFORMED BY: [facility]6370 [facility] [id number] C-Reactive Protein, Quant 0.9 mg/L (Normal) Range: 0.0-4.9 41-Vki-433523:44 JOANNA (ANTINUCLEAR ANTIBODY) Comments: PATIENT WAS FASTINGPERFORMED BY: [facility]6370 [facility] [id number] (32724) JOANNA Direct Negative (Normal) 41-Rnz-566539:44 LIPID PANEL (36416) Comments: PATIENT WAS FASTINGPERFORMED BY: LabCo Qqfcxe5584 [facility] [id number] LDL Cholesterol Calc 140 mg/dL (Abnormal) Range: 0-99 LDL/HDL Ratio 1.8 {ratio_units} (Normal) Range: 0.0-3.2 HDL Cholesterol 77 mg/dL (Normal) Comments: According to ATP-III Guidelines, HDL-C >59 mg/dL is considered anegative risk factor for CHD. VLDL Cholesterol Hector 19 mg/dL (Normal) Range: 5-40 Triglycerides 97 mg/dL (Normal) Range: 0-149 Cholesterol, Total 236 mg/dL (Abnormal) Range: 100-199 :44 TSH (13620) Comments: PATIENT WAS FASTINGPERFORMED BY: [place] 7352770 [facility] [id number] TSH 1.670 {uIU/mL} (Normal) Range: 0.450-4.500 44-Tjo-757987:44 URINALYSIS, W/ MICRO (67077) Comments: PATIENT WAS FASTINGPERFORMED BY: [address] [id number] Microscopic Examination See below: (Normal) Bilirubin Negative (Normal) Ketones Negative (Normal) Nitrite, Urine Negative (Normal) Occult Blood 1+ (Abnormal) Urobilinogen,Semi-Qn 0.2 mg/dL (Normal) Range: 0.0-1.9 Glucose Negative (Normal) Protein Negative (Normal) Appearance Clear (Normal) pH 7.0 (Normal) Range: 5.0-7.5 Urine-Color Yellow (Normal) WBC Esterase Negative (Normal) Specific Ucon 1.016 (Normal) Range: 1.005-1.030 :44 MICROALBUMIN: CREATININE RATIO Comments: PATIENT WAS FASTINGPERFORMED BY: [facility]6370 [facility] [id number] (08418) AND (20420) Microalb/Creat Ratio 2.8 {mg/g_creat} (Normal) Range: 0.0-30.0 Creatinine, Urine 61.0 mg/dL (Normal) Range: 15.0-278.0 Microalbumin, Urine 1.7 ug/mL (Normal) Range: 0.0-17.0 :44 METABOLIC PANEL, COMPREHENSIVE Comments: PATIENT WAS FASTINGPERFORMED BY: [place] 7352770 [facility] [id number] (12717) ALT (SGPT) 16 [iU]/L (Normal) Range: 0-40 [...] Glucose, Serum 92 mg/dL (Normal) Range: 65-99 46-Bud-787982:44 CBC WITH MANUAL DIFF Comments: PATIENT WAS FASTINGPERFORMED BY: [facility] Mullica HillDrrzca7490 [facility] [id number] Information: [id number] (47882) Immature Grans (Abs) 0.0 {x10E3/uL} (Normal) Range: [...] 3.80-5.10 WBC 6.1 {x10E3/uL} (Normal) Range: 4.0-10.5 71-Vpy-898446:11 BILAT [facility] DIGITAL & CAD Radiology Report See Note (Normal) Comments: Exam Number: [id number] MAMMOGRAPHY - BILATERAL SCREENING INDICATION:Routine annual screening [...] of attaching a ResultCode to this exam.ADDENDUM: [id number] HPBI/MDS Reported By: ELEANOR ERNANDEZ M.D. 0-Xxu-381208:01 TSH (17902) Comments: PATIENT NOT FASTINGPERFORMED BY: CB [facility] Hcxdlp5755 [facility] [id number] Information: [id number] TSH 0.474 {uIU/mL} (Normal) Range: 0.450-4.500 :21 Thin prep Pap (62457) Comments: of cuff, has had hysterectomy; Source.............VaginalLMP / Prev Treat...HystNo. of containers..01 CYTYC Thin Prep VialPATIENT NOT FASTINGPERFORMED BY: [facility] [address] [id number] Information: [id number] Note: PAPSMR (Normal) Comments: The Pap smear [...] hysterectomy.V72.31 ; Routine gynecological exami Davion Mosley Reed Cleaner (ASCP) 29-Pyb-676243:57 ABDOMEN/PELVIS W/WO CONTRAST Radiology Report See Note (Normal) Comments: Exam Number: [id number] CLINICAL:Hydronephrosis CT ABDOMEN AND PELVIS WITHOUT / [...] theright-sided hydronephrosis. Reported By: SAVANA AVELAR M.D. 9-Xsu-755663:44 Urinalysis, Office (33084) UA - LEUKOCYTE ESTERASE Negative (Normal) UA - NITRITE Negative (Normal) URINE UROBILINGN REYNA TIMED Normal mg/dL (Normal) UA - PROTEIN Negative mg/dL (Normal) UA - PH 6.5 (Normal) UA - BLOOD Hemolyzed Trace (Normal) UA - SPECIFIC GRAVITY 1.010 (Normal) UA - KETONES Negative mg/dL (Normal) UA - BILIRUBIN Negative (Normal) UA - GLUCOSE Negative (Normal) 12-Tjo-789049:45 KIDNEY (HP) Radiology Report See Note (Normal) Comments: Exam Number: [id number] CLINICAL:The patient is a 69-year-old female who [...] no hydronephrosis Reported By: ELEANOR ERNANDEZ M.D. 99-Ypy-755959:14 BMP BUN/CRE 17.8 {RATIO} (Normal) Range: 10-20 [...] (Normal) GLU 90 mg/dL (Normal) Range: 70-110 27-Kzp-338500:52 Iron and TIBC Comments: PATIENT NOT FASTINGPERFORMED BY: [facility]6370 [facility] [id number] Iron Saturation 21 % (Normal) Range: 15-55 Iron, Serum 55 ug/dL (Normal) Range: 35-155 UIBC 202 ug/dL (Normal) Range: 150-375 Iron Bind.Cap.(TIBC) 257 ug/dL (Normal) Range: 250-450 27-Eub-270048:52 Renal function Panel (21473) Comments: PATIENT NOT FASTINGPERFORMED BY: [employer] Ejeluz1201 [facility] [id number] Albumin, Serum 3.7 g/dL (Normal) Range: 3.5-4.8 [...] Glucose, Serum 91 mg/dL (Normal) Range: 65-99 08-Uwa-575144:52 Ferritin (81273) Comments: PATIENT NOT FASTINGPERFORMED BY: [facility] Dgenyk7635 [facility] [id number] Ferritin, Serum 338 ng/mL (Abnormal) Range: 13-150 96-Bbk-006162:52 CBC with manual diff Comments: PATIENT NOT FASTINGPERFORMED BY: [facility]6370 [facility] [id number] Information: [id number] (62974) Baso (Absolute) 0.0 {x10E3/uL} (Normal) Range: 0.0-0.2 [...] 3.80-5.10 WBC 7.9 {x10E3/uL} (Normal) Range: 4.0-10.5 69-Gkn-409487:20 TSH (96751) Comments: PATIENT NOT FASTINGPERFORMED BY: [place] 7352770 [facility] [id number] TSH 0.830 {uIU/mL} (Normal) Range: 0.450-4.500 46-Ccl-056293:20 CBC with manual diff Comments: PATIENT NOT FASTINGPERFORMED BY: [place] 7352770 [facility] [id number] Information: [id number] (10136) Hematology Comments: Note: (Normal) Comments: Verified by [...] 3.80-5.10 WBC 21.6 {x10E3/uL} (Abnormal) Range: 4.0-10.5 84-Zvf-896918:58 Serum Protein Comments: PATIENT NOT FASTINGPERFORMED BY: [address] [id number] Information: ADD [id number] NO DRAW FEE Electrophoresis (SPEP) (57928) A/G Ratio 1.6 (Normal) Range: 0.7-2.0 Please note: SPRCS (Normal) Comments: Protein electrophoresis scan will follow via computer, mail, orcourier delivery. Myfmy-5-Wqnivekr 0.2 g/dL (Normal) Range: 0.1-0.4 Qolmf-3-Ryoqfkmp 0.6 g/dL (Normal) Range: 0.4-1.2 Beta Globulin 0.9 g/dL (Normal) Range: 0.6-1.3 Gamma Globulin 0.9 g/dL (Normal) Range: 0.5-1.6 Globulin, Total 2.6 g/dL (Normal) Range: 2.0-4.5 M-Slim Not Observed g/dL (Normal) Albumin 4.2 g/dL (Normal) Range: 3.2-5.6 Protein, Total, Serum 6.8 g/dL (Normal) Range: 6.0-8.5 23-Dig-544030:58 VITAMIN B-12 (CYANOCOBALAMIN) Comments: PATIENT NOT FASTINGPERFORMED BY: [employer]70 [facility]Former[facility] [id number] (71634) Vitamin B12 300 pg/mL (Normal) Range: 211-911 48-Uew-587136:58 SED RATE ERYTHROCYTE (29973) Comments: PATIENT NOT FASTINGPERFORMED BY: [facility]6370 [facility] InteractiveFormerly [facility] [id number] Sedimentation Rate-Westergren 2 mm/h (Normal) Range: 0-30 54-Dct-556724:20 CBC With Differential/Platelet Comments: PATIENT WAS FASTINGPERFORMED BY: [facility] [employer]6370 [facility] [id number] Baso (Absolute) 0.1 {x10E3/uL} (Normal) Range: 0.0-0.2 [...] 3.80-5.10 WBC 5.4 {x10E3/uL} (Normal) Range: 4.0-10.5 10-Yuu-181282:20 Comp. Metabolic Panel (14) Comments: PATIENT WAS FASTINGPERFORMED BY: [facility] Mullica HillNjmpdh6277 [facility] [id number] ALT (SGPT) 19 [iU]/L (Normal) Range: 0-40 [...] Glucose, Serum 95 mg/dL (Normal) Range: 65-99 55-Vay-308447:20 Lipid Panel With LDL/HDL Comments: PATIENT WAS FASTINGPERFORMED BY: [facility] HealthcareRotech HealthcareFormerly [facility] [id number] Ratio HDL Cholesterol 66 mg/dL (Normal) Comments: [...] 1.050 {uIU/mL} Comments: PATIENT WAS FASTINGPERFORMED BY: [employer]70 [facility] [id number] :20 (Normal) Range: 0.450-4.500 00-Bbv-78036:50 CBCD,SMEAR DIFF BAND 1 % (Normal) Range: [...] :50 TSH 1.25 {uIU/mL} (Normal) Range: 0.34-4.82 82-Iuh-182931:41 BILAT SCRN DIGITAL & CAD Radiology Report See Note (Normal) Comments: Exam Number: [id number] MAMMOGRAM, BILATERAL SCREENING DIGITAL AND CAD HISTORYRoutine [...] mammograms werealso examined with computer-aided detection software ([employer], [employer] Reported By: ELEANOR ERNANDEZ M.D. :28 [...] :28 TSH 0.38 {uIU/mL} (Normal) Range: 0.34-4.82 1-Nlh-180662:04 Rapid Strep Test, Office (48157) Rapid Strep Test, Office Negative (Normal) 24-Cuu-671717:34 BILAT SCRN DIGITAL & CAD Radiology Report See Note (Normal) Comments: Exam Number: [id number] MAMMOGRAM, BILATERAL SCREENING DIGITAL AND CAD HISTORYRoutine [...] mammograms werealso examined with computer-aided detection software ([employer], [employer] Reported By: ELEANOR ERNANDEZ M.D. 31-Tgr-947349:31 DEXA BONE DENSITY STUDY (HP) Radiology Report See Note (Normal) Comments: Exam Number: [id number] BONE DENSITOMETRY HISTORYPostmenopausal. TECHNIQUE Bone densitometry of [...] withinnormal limits. Reported By: ELEANOR ERNANDEZ M.D. 59-Kuy-061301:39 COMP METABOLIC A/G 1.1 {RATIO} (Normal) Range: [...] : Follow up in 3 months with [facility] Indication: Hypertensive heart disease Hematuria, unspecified : FOLLOW UP IN 3 MONTHS [facility] Indication: Hematuria, unspecified Abnormal blood chemistry [...] Gen Med in Sep 2010 make apt [facility] per pt request Indication: Hydronephrosis Hydronephrosis : Follow up for well woman with [facility] per pt request Indication: Hydronephrosis Anemia : FOLLOW UP IN 2 WEEKS January 07 by [facility] Indication: Anemia Abdominal pain, acute, generalized : FOLLOW UP IN 1 WEEK with [facility] Indication: Abdominal pain, acute, generalized Diarrhea [...] Indication: Bronchitis Planned Observations Metabolic Panel, Comprehensive (57411)Indication: Hypercholesterolemia On: 7-Kqd-871151:52 Request Comments: Jun 2018 LIPID PANEL (22899)Indication: Hypercholesterolemia On: 3-Xfk-273337:51 Request Comments: Jun 2018 URINALYSIS (60865)Indication: Hypertension, essential, benign On: 33-Vai-011771:52 Request MICROALBUMIN: CREATININE RATIO (58332) AND (49272)Indication: Hypertension, essential, benign On: 78-Ncp-950152:52 Request Metabolic Panel, Comprehensive (60438)Indication: Hypertension, essential, benign On: 50-Fdt-519878:50 Request Comments: send to [facility] CBC, Platelets & Auto Diff (75027)Indication: Hypertension, essential, benign On: 29-Jcd-839022:50 Request Comments: send to [facility] TSH (97864)Indication: Hypothyroidism On: 31-Hfn-718072:50 Request Comments: send to [facility] LIPID PANEL (31789)Indication: Hypercholesterolemia On: 97-Qwp-250761:50 Request Comments: send to [facility] URINALYSIS (39078)Indication: Hypertension, essential, benign On: 0-Vbp-246884:03 Request Comments: today MICROALBUMIN: CREATININE RATIO (80728) AND (24840)Indication: Hypertension, essential, benign On: 5-Gpu-233813:03 Request Comments: today TSH (33521)Indication: Hypothyroidism On: 4-Wbu-310305:03 Request Comments: Jul 2017 MICROALBUMIN: CREATININE RATIO (84671) AND (50504)Indication: Hypertension, essential, benign On: 93-Biv-148185:51 Request Comments: Mar 2017 URINALYSIS ([id number])Indication: Hypertension, essential, benign On: 72-Jpo-655677:51 Request Comments: Mar 2017 TSH ([id number])Indication: Hypertension, essential, benign On: 74-Cjz-365974:51 Request Comments: Mar 2017 CBC, Platelets & Auto Diff ([id number])Indication: Hypertension, essential, benign On: 96-Aba-206930:51 Request Comments: Mar 2017 Metabolic Panel, Comprehensive ([id number])Indication: Hypertension, essential, benign On: 40-Hut-352050:51 Request TSH (THYROID STIMULATING HORMONE) (03426)Indication: Hypothyroidism On: 21-Pck-351075:53 Request HEPATIC FUNCTION PANEL (92924)Indication: Hypertension, essential, benign On: 88-Zoq-430800:47 Request VITAMIN B12 AND FOLATES (45307)Indication: Vitamin B 12 deficiency On: 6-Stu-436082:52 Request CALCIFEDIOL (32660)Indication: DEFICIENCY, VITAMIN D NOS On: 5-Nws-660843:52 Request Urinalysis, Office (90823)Indication: Hematuria, unspecified On: 12-Pox-537498:35 Request MICROALBUMIN URINE QUANT (38861)Indication: Hypertensive heart disease On: 00-Njf-521497:25 Request FECAL OCCULT HGB ASSAY- tubes sent home (68988)Indication: Well woman exam On: 9-Esf-479329:51 Request OCCULT BLOOD FECES SCREEN- card done in office (48356)Indication: Well woman exam On: 2-Kes-142699:51 Request Renal function Panel (09894)Indication: Hydronephrosis On: 2-Lke-871894:22 Request Iron (10071)Indication: Anemia On: 52-Cjm-111723:39 Request Iron Binding Capacity (TIBC) (65102)Indication: Anemia On: 61-Yau-203826:39 Request OVA & PARASITE DIR SMEAR ([id number])Indication: Diarrhea On: 64-Efv-339098:50 Request OCCULT BLOOD FECES SCREEN (79107)Indication: Diarrhea On: 43-Bio-376920:50 Request LEUKOCYTE COUNT, FECAL (78078)Indication: Diarrhea On: 66-Qyr-968402:50 Request C-DIFFICILE, STOOL ([id number])Indication: Diarrhea On: 62-Ujt-662821:50 Request LORNA CULTURE-STOOL (04603)Indication: Diarrhea On: 42-Rqu-625378:50 Request HEPATIC FUNCTION PANEL (33918)Indication: Hypercholesterolemia On: 50-Npo-063849:46 Request Lipid Panel (77253)Indication: Hypercholesterolemia On: 09-Ghg-696885:46 Request Comments: in three months (approximately) TSH (20099)Indication: Hypothyroidism On: 03-Sgt-762249:06 Request METABOLIC PANEL, COMPREHENSIVE (73655)Indication: Hypertensive heart disease On: 12-Kyf-003651:06 Request LIPID PANEL ([id number])Indication: Hypertensive heart disease On: 18-Wpr-629941:06 Request CBC WITH MANUAL DIFF ([id number])Indication: Hypertensive heart disease On: 24-Lxw-898071:06 Request LORNA CULTURE-OTHER (33209)Indication: Pharyngitis, acute On: 7-Eug-382975:04 Request CBC (Auto) ([id number])Indication: Hypercholesterolemia On: :13 Request Lipid Panel (36620)Indication: Hypercholesterolemia On: 65-Fxg-98492:13 Request Metabolic Panel, Comprehensive (49825)Indication: Hypercholesterolemia On: 14-Lmf-14558:13 Request Comments: in six months (approximately) TSH (85231)Indication: Hypothyroidism On: 88-Kjm-126097:06 Request LIPID PANEL ([id number])Indication: Hypertension On: 21-Usr-263915:01 Request Planned Encounters Medical; 3 Month FU - On: 14-Jun-2018 10:45 [facility] Sarai Bro CNP, CNP, Mary E Planned Procedures MAMMOGRAM BREAST BILATERAL On: 27-May-2018 Intent SCREENING DIGITAL ([id number])By: Sarai Bro CNP, CNP, Mary E Radiology - Femur - RightBy: Hang On: 02-Mar-2018 Intent Sarai CARNEY CNP, Mary E DEXA SCAN AXIAL SKELETON On: 19-Oct-2017 Intent ([id number])By: Sarai Bro CNP, CNP, Mary E Aerosol Treatment ([id number])By: On: 07-Sep-2017 Intent Kelly Naqvi Comments: Lungs clear after aerosol treatment Flu Vaccine (Quadrivalent) On: 13-Apr-2017 Intent [id number]: Giselle Silva LPN Comments: InfluenzaLot #[id number]-/18/18Site-L dltd, IMDose prefilled syringeVIS and ABN signedgiven by:ROSA MARIA cade MAMMOGRAM BREAST BILATERAL On: 05-Jan-2017 Intent SCREENING DIGITAL ([id number])By: Hang Comments: after Apr 24 2017 Sarai CARNEY CNP, Mary E DEXA SCAN AXIAL SKELETON On: 05-Jan-2017 Intent ([id number])By: Sarai Bro CNP Comments: After Apr 24 2017 Sarai CARNEY Flu Vaccine (Quadrivalent) On: 06-Jul-2016 Intent [id number]: Giselle Silva LPN Comments: InfluenzaLot #Lot [id number]/30/17Site-L dltd, IMDose prefilled syringeVIS and ABN signedgiven by:ROSA MARIA cade MAMMOGRAM, SCREENING, BOTH BREAST On: 31-Mar-2016 Intent ([id number])By: Sarai Bro CNP, CNP, Mary E MAMMOGRAM, SCREENING, BOTH BREAST On: 17-Feb-2016 Intent ([id number])By: Sarai Bro CNP, CNP, Mary E PHYSICAL THERAPY EVALUATION On: 28-Jan-2016 Intent ([id number])By: Sarai Bro CNP, CNP, Mary E PHYSICAL THERAPY EVALUATION On: 28-Jan-2016 Intent ([id number])By: Sarai Bro CNP, CNP, Mary E Toradol Injection, 30 mg On: 28-Jan-2016 Intent ([id number])By: Sarai Bro CNP, CNP, Mary E Radiology - Lumbar SpineBy: Hang On: 28-Jan-2016 Intent Sarai CARNEY CNP, Mary E Radiology - Knee - LeftBy: Hang On: 28-Jan-2016 Intent Sarai CARNEY CNP, Mary E Aerosol Treatment ([id number])By: Hang On: 24-Dec-2015 Intent Sarai CARNEYbonita ANGELIKASarai Flu Vaccine (Quadrivalent) On: 10-May-2015 Intent 61834Hy: Hang CARNEY Rianna Cibonita Comments: Lot:[id number]:02/06/16Dose:0.5mLRoute:IMSite:L DltdGiven By:Kacie galaviz CNP Sarai Moon DEXA SCAN AXIAL SKELETON On: 19-Mar-2015 Intent ([id number])By: Hang CARNEY RiannaRed Bro CNP Sarai Moon MAMMOGRAM, SCREENING, BOTH BREAST On: 11-Feb-2015 Intent ([id number])By: Hang CARNEY Rianna Ciwojciechyin CARNEY Sarai Moon DEXA SCAN AXIAL SKELETON On: 11-Feb-2015 Intent ([id number])By: Hang CARNEY RiannaRed Bro CNP Sarai Mono Solu -Medrol Injection, 125 mg On: 25-Jul-2014 Intent ([id number])By: Sarai Bro CNP Comments: [id number] 5.17right gm125 mgas, ROSA MARIA CARNEY Sarai Moon Aerosol Treatment (71600)By: Hang On: 25-Jul-2014 Intent Sarai CARNEY Tiffaniebonita ANGELIKA Sarai Moon Toradol Injection, 30 mg On: 18-Jul-2014 Intent ([id number])By: Hang CARNEY RiannaRed Bro CNP Sarai Moon Radiology - Lumbar SpineBy: Hang On: 18-Jul-2014 Intent ANGELIKASarai Tiffaniewojciechyin CARNEY Sarai Moon Radiology - Hip - RightBy: Hang On: 18-Jul-2014 Intent ANGELIKA Sarai Moon Tiffaniebonita ANGELIKA Sarai Moon Prevnar 13 ([id number])By: Ricardo CRANE, On: 16-Jul-2014 Intent Giselle Comments: [id number] arm, IMAS Bone Density StudyBy: Hang CARNEY, On: 15-May-2014 Intent Sarai Bro CNP Rianna ADMINISTRATION OF INFLUENZA VIRUS On: 15-May-2014 Intent VACCINE ([id number])By: Sarai Bro CNP, CNP Rianna FLU VAC, SPLIT, >3 YEARS, On: 15-May-2014 Intent INTRAMUSC (52247)By: Hang CARNEY, Comments: Lot:[id number]:04/24Dose:0.5mLRoute:IMSite:L DltdGiven By:JSONIA signed Sarai Moon Tiffaniebonita ANGELIKA Sarai Moon SPECIMEN HNDLNG/TRNSPRT, OFFC > On: 22-Mar-2014 Intent LAB ([id number])By: Hang CARNEY RiannaRed Bro CNP Rianna BILATERAL MAMMOGRAMS (52820)By: On: 18-Dec-2013 Intent Hang CARNEY Sarai Moon Tiffaniewojciechyin CARNEY Sarai Moon Aerosol Treatment ([id number])By: Hang On: 22-Sep-2013 Intent ANGELIKA Sarai Moon Hang CARNEY Rianna Wax CurettesBy: Hang CARNEY Rianna On: 22-Sep-2013 Intent Hang CARNEY Rianna Ear Irrigation ([id number])By: Hang On: 22-Sep-2013 Intent ANGELIKASarai Tiffaniewojciechyin CARNEY Sarai Moon Eprescribed prescriptions On: 18-Aug-2013 Intent (G8553)By: Lucrecia Vargas Eprescribed prescriptions On: 05-May-2013 Intent (G8553)By: Hang CARNEY RiannaRed Bro CNP Rianna ADMINISTRATION OF INFLUENZA VIRUS On: 05-May-2013 Intent VACCINE (G0008)By: Aristides CRANE, Comments: lot # [id number] 6.2014site- L dltdroute-IMdose- 0.5mlVIS and ABN signedBlessing Francis FLU VAC, SPLIT, >3 YEARS, On: 05-May-2013 Intent INTRAMUSC ([id number])By: Penny Irving LPN MAMMOGRAM, SCREENING, BOTH BREASTS On: 16-Dec-2012 Intent ([id number])By: Hang CARNEY RiannaRed Bro CNP Rianna Spirometry (63988)By: Aristides CRANE, On: 16-Dec-2012 Intent Penny Comments: mild airway obstruction Aerosol Treatment (25157)By: Hang On: 30-Mar-2012 Intent ANGELIKA Sarai Moon Hang CARNEY Rianna PFT - CompleteBy: Sarai Bro CNP On: 01-Mar-2012 Intent Red Bro CNP Rianna Inhaler Demonstration ([id number])By: On: 28-Dec-2011 Intent Sarai Bro CNP, CNP, Mary E Pulse Oximetry (35088)By: Hang On: 28-Dec-2011 Intent Sarai CARNEY CNP, Mary E Eprescribed prescriptions On: 22-Apr-2011 Intent (G8553)By: Hang CARNEY, Sarai Bro CNP, Sarai Moon Eprescribed prescriptions On: 21-Oct-2010 Intent (G8553)By: Sarai Bro CNP, CNP, Sarai Moon Eprescribed prescriptions On: 21-Oct-2010 Intent (G8553)By: Sarai Bro CNP, CNP Sarai Moon MAMMOGRAM, SCREENING, BOTH BREASTS On: 15-Apr-2010 Intent ([id number])By: Hang CARNEY Sarai Bro CNP Sarai Moon [...] SPLIT, >3 YEARS, On: 22-May-2009 Intent INTRAMUSC (20579)By: Kelle CRANE, Comments: Lot #[id number]-left deltoidgiven by:MELA Collins Pulse Oximetry (61492)By: Jay On: 25-Sep-2008 Intent PRESTON ADMINISTRATION OF INFLUENZA VIRUS On: 13-Jun-2008 Intent VACCINE (G0008)By: Aristides CRANE, Comments: lot #[id number] exp- 01/15site-left delroute-imdose- 0.5 Penny FLU VAC, SPLIT, >3 YEARS, On: 13-Jun-2008 Intent INTRAMUSC (84778)By: Penny Irving LPN MAMMOGRAM, SCREENING, BOTH BREASTS On: 28-May-2008 Intent ([id number])By: Susan Lee MD M Bio Z (59134)By: Susan Lee MD On: 28-Nov-2007 Intent M SPECIMEN HNDLNG/TRNSPRT, OFFC > On: 12-Oct-2007 Intent LAB ([id number])By: Tyesha Ramos DO Bone Density StudyBy: Rosa CHRISTIANSEN, On: 18-Feb-2007 Intent Susan Sánchez Comments: ache in back MAMMOGRAM, SCREENING, BOTH BREASTS On: 18-Feb-2007 Intent ([id number])By: Susan Lee MD Bio Z ([id number])By: Susan Lee MD On: 20-Jul-2006 Intent M Planned Medications INJECTION, KETOROLAC TROMETHAMINE, PER 15 MG Ordered: 18-Jul-2014 Pending Ciesa GLOVE CUFFER, Rianna Ciesa GLOVE CUFFER, Rianna INJECTION, KETOROLAC TROMETHAMINE, PER 15 MG Ordered: 28-Jan-2016 Pending Ciesa GLOVE CUFFER, Rianna Ciesa GLOVE CUFFER, Rianna INJECTION, METHYLPREDNISOLONE SODIUM SUCCINATE, UP TO 125 MG Ordered: 25-Jul-2014 Pending Ciesa GLOVE CUFFER, Rianna Ciesa GLOVE CUFFER, Rianna Instructions Name Dates Details Nonsmoker : [...] The patient does have durable power of county attorney and living will. The patient has noticed nothing from the geriatic depression scale. Other providers contributing to the katty ent's care are junior software engineer (Dr paz ), lamination spinner (Dr Vazquez ), urologist (Dr Pope ) [...]
--- OUTSIDE RECORDS SUMMARY | 2018-10-30 18:37 | XMS RPT_ITS ---
:1940 Author Organization OHIP Support Name Relationship Address Phone JAYCE CRAIN Unavailable [address] + [place] [address] R Unavailable Unavailable Unavailable ADELINA ROSALES Unavailable Unavailable + JAYCE CRAIN Unavailable [address] + [place] [address] R Unavailable Unavailable Unavailable ADELINA ROSALES Unavailable Unavailable + JAYCE CRAIN Unavailable [address] + [place] [address] R Unavailable Unavailable Unavailable ADELINA ROSALES Unavailable Unavailable + JAYCE CRAIN Unavailable [address] + [place] [address] R Unavailable Unavailable Unavailable ADELINA ROSALES Unavailable Unavailable + JAYCE CRAIN Unavailable [address] + [place] [address] R Unavailable Unavailable Unavailable ADELINA ROSALES Unavailable Unavailable + [place] [address] JAYCE CRAIN Unavailable [address] + [place] [address] R Unavailable Unavailable Unavailable ADELINA ROSALES Unavailable Unavailable + [place] [address] JAYCE CRAIN Unavailable [address] + [place] [address] R Unavailable Unavailable Unavailable ADELINA ROSALES Unavailable Unavailable + [place] [address] BREANNANDREWJAYCE Unavailable [address] + [place] [address] R Unavailable Unavailable Unavailable ADELINA ROSALES Unavailable Unavailable + [place] [address] BREANN, JAYCE Unavailable [address] + [place] [address] R Unavailable Unavailable Unavailable ADELINA ROSALES Unavailable Unavailable + [place] [address] BREANN, JAYCE Unavailable [address] + [place] [address] R Unavailable Unavailable Unavailable ADELINA ROSALES Unavailable Unavailable + [place] [address] BREANN, JAYCE Unavailable [address] + [place] [address] R Unavailable Unavailable Unavailable ADELINA ROSALES Unavailable Unavailable + [place] [address] BREANN, JAYCE Unavailable [address] + [place] [address] R Unavailable Unavailable Unavailable BREANN, JAYCE Unavailable [address] + [place] [address] R Unavailable Unavailable Unavailable BREANN, JAYCE Unavailable [address] + [place] [address] R Unavailable Unavailable Unavailable BREANN, JAYCE Unavailable [address] + [place] [address] R Unavailable Unavailable Unavailable BREANN, JAYCE Unavailable [address] + [place] [address] R Unavailable Unavailable Unavailable BREANN, JAYCE Unavailable [address] + [place] [address] R Unavailable Unavailable Unavailable BREANN, JAYCE Unavailable [address] + [place] [address] R Unavailable Unavailable Unavailable BREANN, JAYCE Unavailable [address] + [place] [address] R Unavailable Unavailable Unavailable BREANN, JAYCE Unavailable [address] + [place] [address] R Unavailable Unavailable Unavailable BREANN, JAYCE Unavailable [address] + [place] [address] R Unavailable Unavailable Unavailable BREANN, JAYCE Unavailable [address] + [place] [address] R Unavailable Unavailable Unavailable BREANN, JAYCE Unavailable [address] + [place] [address] R Unavailable Unavailable Unavailable BREANN, JAYCE Unavailable [address] + [place] [address] R Unavailable Unavailable Unavailable BREANN, JAYCE Unavailable [address] + [place] [address] R Unavailable Unavailable Unavailable BREANN, JAYCE Unavailable [address] + [place] [address] R Unavailable Unavailable Unavailable Care Team Providers Name Role Phone Tiffanieesa, Sarai Attending Unavailable Susan Lee MD Referring Unavailable Ciesa, Sarai Consulting Unavailable Nahun Vazquez Attending Unavailable Nahun Vazquez Referring Unavailable Ciesa, Sarai Primary Care Unavailable Tova, [place] Attending Unavailable Tova, [place] Referring Unavailable CiesaSarai Primary Care Unavailable Ciesa, Sarai Consulting Unavailable Tova, Amilcar Attending Unavailable Tova, [place] Referring Unavailable Ciwojciecha, Sarai Primary Care Unavailable Ciesa, Sarai Consulting Unavailable Tova, [place] Attending Unavailable Tova, Amilcar Referring Unavailable CiesaSarai Primary Care Unavailable Ciesa, Sarai Consulting Unavailable Tova, [place] Attending Unavailable Tova, Amilcar Referring Unavailable Ciesa, Sarai Primary Care Unavailable Ciesa, Sarai Consulting Unavailable Tova, [place] Attending Unavailable Tova, [place] Referring Unavailable Ciesa, Sarai Primary Care Unavailable Ciesa, Sarai Consulting Unavailable Tova, [place] Attending Unavailable Tova, Amilcar Referring Unavailable Ciesa, Sarai Primary Care Unavailable Ciesa, Sarai Consulting Unavailable Ciesa, Sarai Attending Unavailable Ciesa, Sarai Referring Unavailable Ciesa, Sarai Primary Care Unavailable Tova, [place] Attending Unavailable Tova, [place] Referring Unavailable Ciesa, Sarai Primary Care Unavailable Ciesa, Sarai Consulting Unavailable Ciesa, Sarai Primary Care Unavailable Tova, [place] Attending Unavailable Tova, [place] Referring Unavailable Ciesa, Sarai Consulting Unavailable Tova, [place] Attending Unavailable Tova, Amilcar Referring Unavailable Ciesa, Sarai Primary Care Unavailable Ciesa, Sarai Consulting Unavailable Tova, Amilcar Attending Unavailable Tova, [place] Referring Unavailable Ciesa, Sarai Primary Care Unavailable Ciesa, Sarai Consulting Unavailable Higinio Patel Attending Unavailable Patel, Higinio Referring Unavailable Ciesa, Sarai Primary Care Unavailable Tova, [place] Attending Unavailable Ciesa, Sarai Attending Unavailable Ciesa, Sarai Referring Unavailable Ciesa, Sarai Primary Care Unavailable Jennifer Goodwin Attending Unavailable Jennifer Goodwin Referring Unavailable Ciesa, Sarai Primary Care Unavailable Angelica Nash Attending Unavailable Tova, Amilcar Attending Unavailable Tova, Amilcar Referring Unavailable Ciesa, Sarai Primary Care Unavailable Ciesa, Sarai Consulting Unavailable Nely Rubin Attending Unavailable Tova, Amilcar Attending Unavailable Tova, [place] Referring Unavailable Ciesa, Sarai Primary Care Unavailable Tova, [place] Attending Unavailable Tova, [place] Referring Unavailable Ciesa, Sarai Primary Care Unavailable Ciesa, Sarai Attending Unavailable Ciesa, Sarai Referring Unavailable Ciesa, Sarai Primary Care Unavailable Tova, Amilcar Attending Unavailable Tova, [place] Referring Unavailable Ciesa, Sarai Primary Care Unavailable Tova, [place] Attending Unavailable Tova, [place] Referring Unavailable Ciesa, Sarai Primary Care Unavailable Tova, [place] Attending Unavailable Tova, [place] Referring Unavailable Ciesa, Sarai Primary Care Unavailable Jennifer Goodwin Attending Unavailable Ciesa, Sarai Referring Unavailable PROBLEMS PROBLEMS DATE TYPE CONDITION / CODE ATTENDING STATUS SOURCE 09/02/2018 Unknown J45.909 - Nahun Vazquez Active [place] Unspecified asthma, Community uncomplicated / Hospital J45.909(ICD-10) Repository 08/08/2018 Unknown I48.0 - Paroxysmal Tova, Amilcar Active [place] atrial fibrillation Community / I48.0(ICD-10) Hospital Repository 08/08/2018 Unknown E03.9 - Tova, Amilcar Active [place] Hypothyroidism, Community unspecified / Hospital E03.9(ICD-10) Repository 07/11/2018 Unknown E78.5 - Tova, Amilcar Active [place] Hyperlipidemia, Community unspecified / Hospital E78.5(ICD-10) Repository 07/11/2018 Unknown 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, Amilcar 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 / Hospital E53.8(ICD-10) Repository 06/09/2018 Unknown E78.00 - Pure Tova, [place] Active [place] hypercholesterolemia Community , unspecified / Hospital E78.00(ICD-10) Repository 06/09/2018 Unknown Z79.01 - meterman Tova, [place] Active [place] (current) use of Community anticoagulants / Hospital Z79.01(ICD-10) Repository 03/02/2018 Unknown M79.604 - Pain in Sarai Bro Active [place] right leg / Community M79.604(ICD-10) Hospital Repository 03/15/2018 Unknown R06.02 - Shortness Tova, Amilcar Active [place] of breath / Community R06.02(ICD-10) Hospital Repository 01/28/2018 Unknown 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, 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 / [facility] I42.0(ICD-10) Hospital Repository 01/28/2018 Unknown Z98.890 - Other Goodwin, Active [place] specified [facility] postprocedural Hospital states / Repository Z98.890(ICD-10) 01/28/2018 Unknown R06.00 - Dyspnea, Goodwin, Active [place] unspecified / [facility] R06.00(ICD-10) Hospital Repository PROCEDURES PROCEDURES No Procedure Records FoundRESULTS RESULTS CBC-COMPLETE BLOOD CNT Collected: 09/02/2018 Status: F Source: [place] NO DIFF 11:09 AM [facility] REPOSITORY TYPE CODE TESTS RESULT OUT OF RANGE REFERENCE UNITS LAB L100.1000 4.4-11.0 K/mm3 Normal WBC 7.6 LAB L100.1200 4.2-5.4 M/mm3 Normal RBC 4.37 LAB L100.1300 12.0-15.0 g/dl Normal HGB 13.3 LAB L100.1400 37-47 % Normal HCT 42.4 LAB L100.1500 81-99 fL Normal MCV 97.0 LAB L100.1600 27.0-32.0 pg Normal MCH 30.4 LAB L100.1700 32-36 g/gl Low MCHC 31.4 LAB L100.1810 11.6-14.6 % Normal RDW CV 13.9 LAB L100.1820 35.1-43.9 fl High RDW SD 48.2 LAB L100.1900 150-450 K/mm3 Normal PLT 219 LAB L100.2000 6.2-12.0 fl Normal MPV 11.6 Performed By: #### L100.0500 #### [facility] [address] [place], [address] PROTHROMBIN TIME W/INR Collected: 08/26/2018 Status: F Source: [place] 10:48 AM [facility] REPOSITORY TYPE CODE TESTS RESULT OUT OF RANGE REFERENCE UNITS LAB L300.4150 11.7-14.9 SECONDS High PROTIME 26.5 LAB L300.4200 Normal INR 2.4 Performed By: #### L300.3900 #### [facility] [address] [place], [address] PROTHROMBIN TIME W/INR Collected: 07/29/2018 Status: F Source: [place] 11:02 AM [facility] REPOSITORY TYPE CODE TESTS RESULT OUT OF RANGE REFERENCE UNITS LAB L300.4150 11.7-14.9 SECONDS High PROTIME 27.0 LAB L300.4200 Normal INR 2.5 Performed By: #### L300.3900 #### [facility] [address] [place], [address] SCREENING MAMM (CAD), Observed: 07/08/2018 Status: F Source: [facility] 10:49 AM [facility] REPOSITORY [facility] Imaging Services [address] [place] [address] SCREENING MAMM (CAD), BILAT MR#: [id number] Acct: [id number] Name: VALERIE CRAIN Rep #: [id number] : 1940 F 78 From: Henry Jones MD PCP: Sarai Bro NP Status: REG CLI Study: SCREENING MAMM (CAD), BILAT Date of Exam: 07/08/18 Exam# [id number] Ordering Dr: Sarai Bro SHIP CAPTAIN-C MAMMOGRAPHY - BILATERAL SCREENING REASON FOR EXAM: [...] delay biopsy of a clinically suspicious abnormality. [id number] Electronically Signed: Henry Jones MD at 12:32 EST Tel [phone], Service support , CC: Sarai Bro NP Composition Floor Setter: Signed PROTHROMBIN TIME W/INR Collected: 07/01/2018 Status: F Source: [place] 9:06 AM [facility] REPOSITORY Order Comment: SARAI BRO ORDERED: TSH, B12, ARIS BERNARDO ORDERED: PT, LIPID, LIVER TYPE CODE TESTS RESULT OUT OF RANGE REFERENCE UNITS LAB L300.4150 11.7-14.9 SECONDS High PROTIME 31.3 LAB L300.4200 Normal INR 3.0 Performed By: #### L300.3900 #### [place] [facility] [address] [place], [address] LIVER PROFILE Collected: 07/01/2018 Status: F Source: [place] 9:06 AM [facility] REPOSITORY Order Comment: SARAI BRO ORDERED: TSH, B12, FOLS DR BERNARDO ORDERED: PT, LIPID, LIVER Is Patient [...] By: #### L500.3400, L500.4100, L501.9520, L506.0250 #### [facility] [address] [place], [address] LIPID PROFILE Collected: 07/01/2018 Status: F Source: [place] 9:06 AM [facility] REPOSITORY Order Comment: SARAI BRO ORDERED: TSH, [...] By: #### L500.3400, L500.4100, L501.9520, L506.0250 #### [facility] [address] [place], [address] THYROID STIM HORMONE Collected: 07/01/2018 Status: F Source: [place] (TSH) 9:06 AM [facility] REPOSITORY Order Comment: SARAI BRO ORDERED: TSH, B12, FOLS DR BERNARDO ORDERED: PT, LIPID, LIVER Is Patient Taking Vitamins or Folic Acid Supplements? N TYPE CODE TESTS RESULT OUT OF RANGE REFERENCE UNITS LAB L501.9520 0.358-3.74 uIU/mL Normal TSH 2.70 Performed By: #### L500.3400, L500.4100, L501.9520, L506.0250 #### [facility] [address] [place], [address] FOLATES, (FOLIC ACID) Collected: 07/01/2018 Status: F Source: [place] 9:06 AM [facility] REPOSITORY Order Comment: SARAI BRO ORDERED: TSH, B12, ARIS BERNARDO ORDERED: PT, LIPID, LIVER Is Patient Taking Vitamins or Folic Acid Supplements? N TYPE CODE TESTS RESULT OUT OF RANGE REFERENCE UNITS LAB L506.0250 3.1-55.4 ng/mL Normal FOLATES 15.70 Performed By: #### L500.3400, L500.4100, L501.9520, L506.0250 #### [facility] [address] [place], [address] VITAMIN B12 Collected: 07/01/2018 Status: F Source: [place] 9:06 AM [facility] REPOSITORY Order Comment: SARAI BRO ORDERED: TSH, B12, FOLElizabeth BERNARDO ORDERED: PT, LIPID, LIVER TYPE CODE TESTS RESULT OUT OF RANGE REFERENCE UNITS LAB L503.0105 211-911 pg/mL Normal Vitamin B12 382 Performed By: #### L503.0105 #### [facility] [address] [place], [address] PROTHROMBIN TIME W/INR Collected: 06/07/2018 Status: F Source: [place] 10:49 AM [facility] REPOSITORY Order Comment: Comments: STANDING ORDER Comments: STANDING ORDER TYPE CODE TESTS RESULT OUT OF RANGE REFERENCE UNITS LAB L300.4150 11.7-14.9 SECONDS High PROTIME 29.6 LAB L300.4200 Normal INR 2.8 Performed By: #### L300.3900 #### [place] [facility] [place], [address] COMPREHENSIVE METABOLIC Collected: 06/07/2018 Status: F Source: [place] [facility] 10:49 AM [facility] REPOSITORY TYPE CODE TESTS RESULT OUT OF [...] 5 Performed By: #### L500.4050, L500.4100 #### [facility] [address] [place], [place], [address] LIPID PROFILE Collected: 06/07/2018 Status: F Source: [place] 10:49 AM [facility] REPOSITORY TYPE CODE TESTS RESULT OUT OF [...] 25 Performed By: #### L500.4050, L500.4100 #### [facility] [address] [place], [address] PROTHROMBIN TIME W/INR Collected: 05/13/2018 Status: F Source: [place] 11:18 AM [facility] REPOSITORY TYPE CODE TESTS RESULT OUT OF RANGE REFERENCE UNITS LAB L300.4150 11.7-14.9 SECONDS High PROTIME 28.4 LAB L300.4200 Normal INR 2.7 Performed By: #### L300.3900 #### [facility] [address] [place], [address] PROTHROMBIN TIME W/INR Collected: 04/18/2018 Status: F Source: [place] 11:14 AM [facility] REPOSITORY TYPE CODE TESTS RESULT OUT OF RANGE REFERENCE UNITS LAB L300.4150 11.7-14.9 SECONDS High PROTIME 24.6 LAB L300.4200 Normal INR 2.2 Performed By: #### L300.3900 #### [facility] [address] [place], [address] VENOUS DUPLEX LOWER Observed: 04/08/2018 Status: F Source: [place] EXTREMITY 4:06 PM [facility] REPOSITORY [facility] Services [address] [place] [address] Venous Duplex US - Paulie Extrem 04/07/18 1000 MR#: [id number] Acct: [id number] Name: VALERIE CRAIN Rep #: [id number] : 1940 77 From: Higinio Patel MD [...] Tamanna Mittal RVT 04/08/18 1605 Date Higinio Patle MD CC: Sarai Bro SHIP CAPTAIN; Higinio Patel MD Date Dictated: 04/07/18 1000 Date Transcribed: 04/08/18 1601 Composition Floor Setter: Signed PROTHROMBIN TIME W/INR Collected: 03/18/2018 Status: F Source: [place] 11:18 AM [facility] REPOSITORY TYPE CODE TESTS RESULT OUT OF RANGE REFERENCE UNITS LAB L300.4150 11.7-14.9 SECONDS High PROTIME 24.3 LAB L300.4200 Normal INR 2.2 Performed By: #### L300.3900 #### [facility] [address] [place] [address]. [place], [address] FEMUR MIN 2 VIEWS Observed: 03/02/2018 Status: F Source: [place] 11:28 AM [facility] REPOSITORY [facility] Imaging Services [address] [place] [address] Femur Min 2 Views MR#: [id number] Acct: [id number] Name: VALERIE CRAIN Rep #: [id number] : 1940 F 77 From: Christiano Croft MD PCP: Sarai Bro NP Status: REG CLI Study: Femur Min 2 Views Date of Exam: 03/02/18 Exam# [id number] Ordering Dr: Sarai Bro STUDY: X-RAY - [...] Service support , CC: Sarai Bro NP Composition Floor Setter: Signed PROTHROMBIN TIME W/INR Collected: 02/18/2018 Status: F Source: [place] 10:26 AM [facility] REPOSITORY TYPE CODE TESTS RESULT OUT OF RANGE REFERENCE UNITS LAB L300.4150 11.7-14.9 SECONDS High PROTIME 24.6 LAB L300.4200 Normal INR 2.2 Performed By: #### L300.3900 #### [facility] [address] [place] [address] [place], [address] ECHOCARDIOGRAM COMPLETE Observed: 02/10/2018 Status: F Source: [place] 12:41 PM [facility] REPOSITORY [facility] [address] [place] [address] Echo Complete 02/10/18 1100 MR#: [id number] Acct: [id number] Name: VALERIE CRAIN Rep #: [id number] : 1940 77 From: Amilcar Bernardo MD Attending Dr: Jennifer Goodwin Status: REG CLI Ordering Dr: Jennifer Goodwin Date: 02/10/18 Location: [facility] Sex: F C Admitted: Reason For [...] Date Amilcar Bernardo MD CC: Sarai Bro SHIP CAPTAIN; Jennifer Goodwin Date Dictated: 02/10/18 1100 Date Transcribed: 02/10/18 1241 Composition Floor Setter: Signed CARDIOLOGY VISIT Observed: 01/28/2018 Status: F Source: [place] REPORT 4:13 PM [facility] REPOSITORY [facility] [address] [place] [address]. [address] [place] [address] OFFICE VISIT Date of Service: 01/28/18 MR#: [id number] Acct: [id number] Name: VALERIE CARIN Rep #: [id number] : 1940 Provider: Jennifer Goodwin Age/Sex: 77/F Location[facility] Status: Signed HPI HPI Details: VALERIE CRAIN, [...] for her age. 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 She does have [...] valve disorder (Chronic) Paroxysmal atrial fibrillation (Chronic) [facility]CI (current) use of anticoagulants (Chronic) Benign essential HTN (Chronic) Surgical History History of appendectomy (Resolved) H/O mitral valve repair (Chronic) Family History Father , age 48 from [place] CAD (coronary artery disease) Sudden cardiac Myocardial [...] prior to saving. Follow Up 6 Months ([facility]) Coding Level of Care Code Off vis,est,level [...] signed by Jennifer ZAMARRIPA> Date Jennifer ZAMARRIPA [facility] Signature: Date (if applicable) CC: Sarai Bro NP PROTHROMBIN TIME W/INR Collected: 01/28/2018 Status: F Source: [place] 1:13 PM [facility] REPOSITORY TYPE CODE TESTS RESULT OUT OF RANGE REFERENCE UNITS LAB L300.4150 11.7-14.9 SECONDS High PROTIME 25.7 LAB L300.4200 Normal INR 2.3 Performed By: #### L300.3900 #### [facility] [address] [place], [address] DOWNTIME REPORT Observed: 01/27/2018 Status: F Source: [place] 12:01 PM [facility] REPOSITORY [facility] Medical Records Department [address] [place] [address] Downtime Report MR#: [id number] Acct: [id number] Name: VALERIE CRAIN Rep #: [id number] : 1940 77 From: Anuj Webster PCP: Sarai Bro NP Status: REG RCR This patient was seen during an EMR downtime January 10, 2018 - January 17, 2018. This patient may have a combination of paper and electronic documentation or all paper documentation. All documentation is viewable within the e-chart portion of [facility] for each patient visit. PROTHROMBIN TIME W/INR Collected: 01/14/2018 Status: F Source: [place] 11:58 AM [facility] REPOSITORY TYPE CODE TESTS RESULT OUT OF RANGE REFERENCE UNITS LAB L300.4150 11.7-14.9 SECONDS High PROTIME 22.8 LAB L300.4200 Normal INR 2.0 Performed By: #### L300.3900 #### [facility] [address] [facility] [place], [address] URINALYSIS, ROUTINE Collected: 12/31/2017 Status: F Source: [place] ([place]IP[place]) 8:45 AM [facility] REPOSITORY Order Comment: How was Urine Obtained? [...] High LEUK ESTERASE 100 Performed By: #### L400.2010 #### [facility] [address] [place], [address] CBC W/DIFF, AUTOMATED Collected: 12/31/2017 Status: F Source: [place] 8:45 AM [facility] REPOSITORY TYPE CODE TESTS RESULT OUT OF [...] Lymph 2.13 Performed By: #### L100.0100 #### [facility] [address] [place], [address] PROTHROMBIN TIME W/INR Collected: 12/31/2017 Status: F Source: [place] 8:45 AM [facility] REPOSITORY TYPE CODE TESTS RESULT OUT OF RANGE REFERENCE UNITS LAB L300.4150 11.7-14.9 SECONDS High PROTIME 21.5 LAB L300.4200 Normal INR 1.9 Performed By: #### L300.3900 #### [facility] [address] [place], [address] MICROALB:CREAT Collected: 12/31/2017 Status: F Source: [facility] [facility] 8:45 AM [facility] REPOSITORY TYPE CODE TESTS RESULT OUT OF RANGE REFERENCE UNITS LAB L501.1200 NO RANGE EST. mg/dL Normal UR CREAT 160.00 LAB L502.0500 NO RANGE EST. mg/L Normal 13.5 MICROALBUMIN ,UR LAB L502.0600 <30 mg/g CRE mg/g CRE Normal 8.4 MALB:CREAT Performed By: #### L502.0250 #### [facility] [address] [place], [place], [address] COMPREHENSIVE METABOLIC Collected: 12/31/2017 Status: F Source: [place] PROFIL 8:45 AM [facility] REPOSITORY TYPE CODE TESTS RESULT OUT OF [...] Performed By: #### L500.4050, L500.4100, L501.9520 #### [facility] [address] [place], [place], [address] LIPID PROFILE Collected: 12/31/2017 Status: F Source: [place] 8:45 AM [facility] REPOSITORY TYPE CODE TESTS RESULT OUT OF [...] Performed By: #### L500.4050, L500.4100, L501.9520 #### [facility] [address] [place], [address] THYROID STIM HORMONE Collected: 12/31/2017 Status: F Source: [place] (TSH) 8:45 AM [facility] REPOSITORY TYPE CODE TESTS RESULT OUT OF RANGE REFERENCE UNITS LAB L501.9520 0.358-3.74 uIU/mL Normal TSH 2.92 Performed By: #### L500.4050, L500.4100, L501.9520 #### [facility] [address] [place], [address] PROTHROMBIN TIME W/INR Collected: 12/03/2017 Status: F Source: [place] 10:31 AM [facility] REPOSITORY TYPE CODE TESTS RESULT OUT OF RANGE REFERENCE UNITS LAB L300.4150 11.7-14.9 SECONDS High PROTIME 23.3 LAB L300.4200 Normal INR 2.1 Performed By: #### L300.3900 #### [facility] [address] [place], [address] PROTHROMBIN TIME W/INR Collected: 11/12/2017 Status: F Source: [place] 11:20 AM [facility] REPOSITORY TYPE CODE TESTS RESULT OUT OF RANGE REFERENCE UNITS LAB L300.4150 11.7-14.9 SECONDS High PROTIME 24.1 LAB L300.4200 Normal INR 2.2 Performed By: #### L300.3900 #### [facility] [address] [place], [address] DEXA BONE DENSITY Observed: 11/09/2017 Status: F Source: [place] STUDY 10:48 AM [facility] REPOSITORY [facility] Imaging Services [address] [place] [address] Dexa Bone Density Study MR#: [id number] Acct: [id number] Name: VALERIE CRAIN Rep #: [id number] : 1940 F 77 From: Henry Jones MD PCP: Sarai Bro NP Status: REG CLI Study: Dexa Bone Density Study Date of Exam: 11/09/17 Exam# [id number] Ordering Dr: Sarai Bro STUDY: DUAL ENERGY [...] Henry Jones MD at 13:40 EDT Tel [phone], Service support , CC: Sarai Bro NP Composition Floor Setter: Signed PROTHROMBIN TIME W/INR Collected: 10/29/2017 Status: F Source: [place] 10:40 AM [facility] REPOSITORY TYPE CODE TESTS RESULT OUT OF RANGE REFERENCE UNITS LAB L300.4150 11.7-14.9 SECONDS High PROTIME 22.9 LAB L300.4200 Normal INR 2.0 Performed By: #### L300.3900 #### [place] [facility] [address] [place], [place], [address] PROTHROMBIN TIME W/INR Collected: 10/18/2017 Status: F Source: [place] 11:13 AM [facility] REPOSITORY TYPE CODE TESTS RESULT OUT OF RANGE REFERENCE UNITS LAB L300.4150 11.7-14.9 SECONDS High PROTIME 19.5 LAB L300.4200 Normal INR 1.6 Performed By: #### L300.3900 #### [facility] [address] [place], [address] PROTHROMBIN TIME W/INR Collected: 10/01/2017 Status: F Source: [place] 10:28 AM [facility] REPOSITORY TYPE CODE TESTS RESULT OUT OF RANGE REFERENCE UNITS LAB L300.4150 11.7-14.9 SECONDS High PROTIME 19.8 LAB L300.4200 Normal INR 1.8 Performed By: #### L300.3900 #### [facility] [address] [place], [address] PROTHROMBIN TIME W/INR Collected: 09/16/2017 Status: F Source: GEOV[place]NA 12:53 PM [facility] REPOSITORY TYPE CODE TESTS RESULT OUT OF RANGE REFERENCE UNITS LAB L300.4150 11.7-14.9 SECONDS High PROTIME 24.8 LAB L300.4200 Normal INR 2.4 Performed By: #### L300.3900 #### [facility] [address] [place], [address] PROTHROMBIN TIME W/INR Collected: 09/10/2017 Status: F Source: GEOV[place]NA 11:26 AM [facility] REPOSITORY TYPE CODE TESTS RESULT OUT OF RANGE REFERENCE UNITS LAB L300.4150 11.7-14.9 SECONDS High PROTIME 21.2 LAB L300.4200 Normal INR 1.9 Performed By: #### L300.3900 #### [facility] [address] [place], [address] ALLERGIES ALLERGIES DATE TYPE / CODE NAME / CODE REACTION SEVERITY SOURCE 01/11/2015 Drug No Known Unknown [facility] Allergy/4160 Allergies/F00 Hospital 11974(SNOMED 9780002(RXNOR Repository CT) M) ENCOUNTERS ENCOUNTERS ADMIT/DISCHARGE ACCOUNT ADMITTING ENCOUNTER LOCATION SOURCE NUMBER CLASS 09/02/2018 [id number] Ambulatory [facility] 3 [facility] ing:MTLAB Repository 08/26/2018 [id number] Ambulatory [facility] 1 [facility] ing:MTLAB Repository 08/25/2018 1128 Ambulatory Building:CIM OHIP Practices Repository 07/29/2018/ [id number] Ambulatory [place] 8 7 [facility] ing:LAB Repository 07/08/2018 [id number] Ambulatory [place] 8 [facility] Hospital ing:OPBI Repository 07/01/2018/ [id number] Ambulatory [place] 8 3 [facility] Hospital ing:LAB Repository 06/09/2018 [id number] Ambulatory [place] 5 [facility] Hospital[facility] Hospital ing:MTLAB Repository 06/07/2018/ [id number] Ambulatory [place] 8 1 [facility] Hospital ing:LAB Repository 05/13/2018/ [id number] Ambulatory [place] 8 6 [facility] Hospital ing:MTLAB Repository 04/18/2018/ [id number] Ambulatory [place] 8 9 [facility] Hospital ing:MTLAB Repository 04/07/2018 [id number] Ambulatory [place] 4 [facility] Hospital ing:CVS Repository 03/18/2018/ [id number] Ambulatory [place] 8 7 [facility] Hospital ing:MTLAB Repository 03/02/2018 [id number] Ambulatory [place] 1 [facility] Hospital ing:MTRAD Repository 02/18/2018/ [id number] Ambulatory [place] 8 3 [facility] Hospital ing:MTLAB Repository 02/10/2018 [id number] Ambulatory BMSBuilding:W [place] 4 [facility] Hospital Repository 02/10/2018 [id number] Ambulatory [place] 6 [facility] Hospital[facility] Hospital ing:CVS Repository 01/28/2018/ [id number] Ambulatory BMSBuilding:B [place] 8 8 [facility] Hospital Repository 01/28/2018/ [id number] Ambulatory [place] 8 8 [facility] Hospital ing:MTLAB Repository 01/21/2018 [id number] Ambulatory BMS [place] 2 [facility] Hospital Repository 12/31/2017/ [id number] Ambulatory [place] 8 3 [facility] ing:MTLAB Repository 12/30/2017 [id number] Ambulatory BMSBuilding:B [place] 2 [facility] Repository 12/03/2017/ [id number] Ambulatory [place] 8 4 [facility] ing:MTLAB Repository 11/09/2017 [id number] Ambulatory [place] 2 [facility] ing:OPBD Repository 11/08/2017 [id number] Ambulatory [place] 0 [facility] ing:MTLAB Repository 10/29/2017/ [id number] Ambulatory [place] 8 2 [facility] ing:MTLAB Repository 10/18/2017/ [id number] Ambulatory [place] 8 3 [facility] ing:MTLAB Repository 10/01/2017/ [id number] Ambulatory [place] 8 9 [facility] ing:MTLAB Repository PAYERS PAYERS ENCOUNTER GUARANTOR PAYER SUBSCRIBER SOURCE 09/02/2018 VALERIE Blount Primary VALERIE K [place] [id number] Insurance:MEDICARE MELLOTTDOB: [facility] [id number] Number: Repository [address]Kgs: ([phone]) [id number] [phone] () Date:2018-09-02 09/02/2018 Secondary VALERIE K [place] Insurance:AARPPolicy MELLOTTDOB: [facility] Number: [id number] Hospital [id number] Repository Date:8377-26-30[address]DZXMVJN, [place] [address]OO: 09/02/2018 Tertiary NOT GIVENUNK [place] Insurance:SELF PAY [facility] Number: Effective Repository Date:2018-09-02 08/26/2018 VALERIE Blount Primary VALERIE K [place] [id number] Insurance:MEDICARE MELLOTTDOB: [facility] [id number] Number: Repository [address]Iys: [phone] [id number] [phone] (HP) Date:2018-06-07 08/26/2018 Secondary VALERIE K [place] Insurance:AARPPolicy MELLOTTDOB: Community Number: [id number] Hospital [id number] Repository Date:1867-39-84WZ [address]CFKJYRE, [place] [address]XM: 08/26/2018 Tertiary NOT GIVENUNK [place] Insurance:SELF PAY [facility] Number: Effective Repository Date:2018-08-08 08/25/2018 Ce K Primary Ce K OHIP Practices MellottDOB: [facility] MellottDOB: Repository [id number] icy Number: [id number] [place] [id number] 8 [facility] Wayne[facility]adster[place] Date:2384-78-35Suxn [facility] [place] [address]Fxb: ([phone]) Name:[facility] [address]Nvs: 815876Bleopr[place], [place] [phone] () (HP)Tel: [phone]: () [phone] 08/25/2018 Secondary Ce K OHIP Practices Insurance:AARP/UHCPol MellottDOB: Repository icy Number: [id number] [address] [place] Date:8720-61-73Zwfw [place], [place] Name:[facility] [address] [address]Hev: ([phone]) 329369Eijzzqc, [place] [phone] () [id number]: 08/25/2018 Tertiary Jayce D OHIP Practices Insurance:Hope MellottDOB: Repository [facility] [id number] Number: [address] [place] [id number] [facility] [place] Date:2003-10-25 [address]Eik: [phone] [id number] [phone] (HP) Name:[facility] [address]Gh[place]ky, [place] [address]WA: 07/29/2018 VALERIE K Primary VALERIE K [place] [id number] Insurance:MEDICARE MELLOTTDOB: Community BRAY PART A [facility] [id number] [place] Number: Repository [address]Ygi: 330 [id number] [phone] () Date:2018-06-07 07/29/2018 Secondary VALERIE K [place] Insurance:AARPPolicy MELLOTTDOB: Community Number: [id number] Hospital [id number] Repository Date:3284-50-83QU [facility] 914385RWGUFCE, [place] [address]SU: 07/29/2018 Tertiary NOT GIVENUNK [place] Insurance:SELF PAY [facility] Hospital Number: Effective Repository Date:2018-07-11 07/08/2018 VALERIE K Primary VALERIE K [place] [id number] Insurance:MEDICARE MELLOTTDOB: Community BRAY PART A [facility] [id number] [place] Number[place] Repository [address]Yir: 330 [id number] [phone] () Date:2018-05-27 07/08/2018 Secondary VALERIE K [place] Insurance:AARPPolicy MELLOTTDOB: Community Number: [id number] Hospital [id number] Repository Date:2708-88-55LK [address]WVJMQJF, [place] [address]TP: 07/08/2018 Tertiary NOT GIVENUNK [place] Insurance:SELF PAY [facility] Hospital Number: Effective Repository Date:2018-05-27 07/01/2018 VALERIE K Primary VALERIE K [place] [id number] Insurance:MEDICARE MELLOTTDOB: Community BRAY PART A [facility] [id number] [place] Number: Repository [address]Mah: 330 [id number] [phone] () Date:2018-06-07 07/01/2018 Secondary VALERIE K [place] Insurance:AARPPolicy MELLOTTDOB: Community Number: [id number] Hospital [id number] Repository Date:3100-57-28LZ [address]ASUMZ, [place] [address]YB: 07/01/2018 Tertiary NOT GIVENUNK [place] Insurance:SELF PAY [facility] Hospital Number: Effective Repository Date:2018-06-09 06/09/2018 VALERIE Blount Primary VALERIE Blount [place] [id number] Insurance:MEDICARE MELLOTTDOB: Community BRAY PART A [facility] [id number] [facility] [place] Number: Repository [address]Lot: 330 [id number] [phone] () Date:2017-10-01 06/09/2018 Secondary VALERIE Blount [place] Insurance:AARPPolicy MELLOTTDOB: Community Number: [id number] Hospital [id number] Repository Date:8495-30-96AU [facility] 788511SLIBSSZ, [place] [address]BH: 06/09/2018 Tertiary NOT GIVENUNK [place] Insurance:SELF PAY [facility] Number: Effective Repository Date:2018-06-09 06/07/2018 VALERIE Blount Primary VALERIE Blount [place] [id number] Insurance:MEDICARE MELLOTTDOB: Community BRAY PART A [facility] [id number] [facility] [place] Number: Repository [address]Gff: 330 [id number] [phone] () Date:2018-06-07 06/07/2018 Secondary VALERIE Blount [place] Insurance:AARPPolicy MELLOTTDOB: Community Number: [id number] Hospital [id number] Repository Date:3534-19-61NT [facility] 007058ZAI[place]F, [place] [address]OE: 06/07/2018 Tertiary NOT GIVENUNK [place] Insurance:SELF PAY [facility] Hospital Number: Effective Repository Date:2018-06-07 05/13/2018 VALERIE Blount Primary VALERIE Blount [place] [id number] Insurance:MEDICARE MELLOTTDOB: Community BRAY PART A [facility] [id number] [facility] [place] Number: Repository [address]Dyk: 330 [id number] [phone] (HP) Date:2017-10-01 05/13/2018 Secondary VALERIE Blount [place] Insurance:AARPPolicy MELLOTTDOB: Community Number: [id number] Hospital [id number] Repository Date:6085-36-75[address], [place] [address]RG: 05/13/2018 Tertiary NOT GIVENUNK [place] Insurance:SELF PAY [facility] Number: Effective Repository Date:2018-05-10 04/18/2018 VALERIE K Primary VALERIE K [place] [id number] Insurance:MEDICARE MELLOTTDOB: Community [place] A [facility] [id number] Number: Repository [address]Ybf: 330 [id number] [phone] () Date:2017-10-01 04/18/2018 Secondary VALERIE K [place] Insurance:AARPPolicy MELLOTTDOB: Community Number: [id number] Hospital [id number] Repository Date:8005-96-72QX [address]ZMNJIXD, [place] [address]IN: 04/18/2018 Tertiary NOT GIVENUNK [place] Insurance:SELF PAY [facility] Hospital Number: Effective Repository Date:2018-04-13 04/07/2018 VALERIE K Primary VALERIE Blount [place] [id number] Insurance:MEDICARE MELLOTTDOB: Community BRAY PART A [facility] [id number] Number: Repository [address]Jfu: 330 [id number] [phone] () Date:2018-04-01 04/07/2018 Secondary VALERIE K [place] Insurance:AARPPolicy MELLOTTDOB: Community Number: [id number] Hospital [id number] Repository Date:0376-01-02KR [address]EF[place]K, [place] [address]TV: 04/07/2018 Tertiary NOT GIVENUNK [place] Insurance:SELF PAY [facility] Number: Effective Repository Date:2018-04-01 03/18/2018 VALERIE K Primary VALERIE K [place] [id number] Insurance:MEDICARE MELLOTTDOB: Community BRAY PART A [facility] [id number], [place] Number: Repository [address]Qmv: 330 [id number] [phone] () Date:2017-10-01 03/18/2018 Secondary VALERIE K [place] Insurance:AARPPolicy MELLOTTDOB: Community Number: [id number] Hospital [id number] Repository Date:2572-84-63PF [facility] 878591K[place], [place] [address]EG: 03/18/2018 Tertiary NOT GIVENUNK [place] Insurance:SELF PAY [facility] Number: Effective Repository Date:2018-03-11 03/02/2018 VALERIE K Primary VALERIE K [place] [id number] Insurance:MEDICARE MELLOTTDOB: Community BRAY PART A [facility] [id number] [facility] [place] Number: Repository [address]Edx: 330 [id number] [phone] () Date:2018-03-02 03/02/2018 Secondary VALERIE K [place] Insurance:AARPPolicy MELLOTTDOB: Community Number: [id number] Hospital [id number] Repository Date:6636-36-02NT [address]GKCZLBZ, [place] [address]AB: 03/02/2018 Tertiary NOT GIVENUNK [place] Insurance:SELF PAY [facility] Hospital Number: Effective Repository Date:2018-03-02 02/18/2018 VALERIE K Primary VALERIE K [place] [id number] Insurance:MEDICARE MELLOTTDOB: Community BRAY PART A [facility] [id number] [facility] [place] Number: Repository [address]Owv: 330 [id number] [phone] () Date:2017-10-01 02/18/2018 Secondary VALERIE K [place] Insurance:AARPPolicy MELLOTTDOB: Community Number: [id number] Hospital [id number] Repository Date:8906-72-49MS [address]GHKWYQA, [place] [address]ZU: 02/18/2018 Tertiary NOT GIVENUNK [place] Insurance:SELF PAY [facility] Hospital Number: Effective Repository Date:2018-02-04 02/10/2018 VALERIE Blount Primary VALERIE Blount [place] [id number] Insurance:MEDICARE MELLOTTDOB: Community BRAY PART A [facility] [id number] [facility] [place] Number: Repository [address]Tbe: 330 [id number] [phone] (HP) Date:2018-01-28 02/10/2018 Secondary VALERIE Blount [place] Insurance:AARPPolicy MELLOTTDOB: Community Number: [id number] Hospital [id number] Repository Date:9929-00-41LX [address]CCNRJVM, [place] [address]TU: 02/10/2018 Tertiary NOT GIVENUNK [place] Insurance:SELF PAY [facility] Hospital Number: Effective Repository Date:2018-02-10 02/10/2018 VALERIE Blount Primary VALERIE Blount [place] [id number] Insurance:MEDICARE MELLOTTDOB: Community BRAY PART A [facility] [id number] [facility] [place] Number: Repository [address]Tbw: 330 [id number] [phone] () Date:2018-01-28 02/10/2018 Secondary VALERIE Blount [place] Insurance:AARPPolicy MELLOTTDOB: Community Number: [id number] Hospital [id number] Repository Date:5874-04-05WN [facility] 132580BMXBXQA, [place] [address]TU: 02/10/2018 Tertiary NOT GIVENUNK [place] Insurance:SELF PAY [facility] Hospital Number: Effective Repository Date:2018-01-28 01/28/2018 VALERIE Blount Primary VALERIE Blount [place] [id number] Insurance:MEDICARE MELLOTTDOB: Community BRAY PART A [facility] [id number] [place] Number: Repository [address]Pgl: 330 [id number] [phone] () Date:2017-07-27 01/28/2018 Secondary VALERIE Blount [place] Insurance:AARPPolicy MELLOTTDOB: Community Number: [id number] Hospital [id number] Repository Date:3225-11-91[address]XAY[place], [place] [address]FA: 01/28/2018 Tertiary NOT GIVENUNK [place] Insurance:SELF PAY [facility] Number: Effective Repository Date:2018-01-28 01/28/2018 VALERIE Blount Primary VALERIE Blount [place] [id number] Insurance:MEDICARE MELLOTTDOB: Community BRAY PART A [facility] [id number], [place] Number: Repository [address]Nec: 330 [id number] [phone] () Date:2017-10-01 01/28/2018 Secondary VALERIE Jose Alejandro [place] Insurance:AARPPolicy MELLOTTDOB: Community Number: [id number] Hospital [id number] Repository Date:4041-00-46DH [address]ZFNKRPU, [place] [address]KU: 01/28/2018 Tertiary NOT GIVENUNK [place] Insurance:SELF PAY [facility] Hospital Number: Effective Repository Date:2018-01-07 01/21/2018 VALERIE K Primary VALERIE Blount [place] [id number] Insurance:MEDICARE MELLOTTDOB: Community BRAY PART A [facility] [id number], [place] Number: Repository [address]Cmk: 330 [id number] [phone] () Date:2018-01-21 01/21/2018 Secondary VALERIE Jose Alejandro [place] Insurance:AARPPolicy MELLOTTDOB: Community Number: [id number] Hospital [id number] Repository Date:1439-37-08RH [address]HTBSLJB, [place] [address]IP: 01/21/2018 Tertiary NOT GIVENUNK [place] Insurance:SELF PAY [facility] Hospital Number: Effective Repository Date:2018-01-21 12/31/2017 VALERIE K Primary VALERIE K [place] [id number] Insurance:MEDICARE MELLOTTDOB: Community BRAY PART A [facility] [id number], [place] Number: Repository [address]Fiu: 330 [id number] [phone] () Date:2017-10-01 12/31/2017 Secondary VALERIE K [place] Insurance:AARPPolicy MELLOTTDOB: Community Number: [id number] Hospital [id number] Repository Date:8344-01-54[address]JRQOYXI, [place] [address]AY: 12/31/2017 Tertiary NOT GIVENUNK [place] Insurance:SELF PAY [facility] Hospital Number: Effective Repository Date:2017-12-07 12/30/2017 VALERIE K Primary VALERIE K [place] [id number] Insurance:MEDICARE MELLOTTDOB: Community BRAY PART A [facility] [id number] [facility] [place] Number: Repository [address]Tpl: 330 [id number] [phone] () Date:2017-12-30 12/30/2017 Secondary VALERIE Jose Alejandro [place] Insurance:AARPPolicy MELLOTTDOB: Community Number: [id number] Hospital [id number] Repository Date:6440-53-57KX [address]KWWIWLG, [place] [address]XC: 12/30/2017 Tertiary NOT GIVENUNK [place] Insurance:SELF PAY [facility] Hospital Number: Effective Repository Date:2017-12-30 12/03/2017 VALERIE K Primary VALERIE K [place] [id number] Insurance:MEDICARE MELLOTTDOB: Community BRAY PART A [facility] [id number], [place] Number: Repository [address]Xho: 330 [id number] [phone] () Date:2017-10-01 12/03/2017 Secondary VALERIE K [place] Insurance:AARPPolicy MELLOTTDOB: Community Number: [id number] Hospital [id number] Repository Date:6567-65-22[address]RTGXSDL, [place] [address]VP: 12/03/2017 Tertiary NOT GIVENUNK [place] Insurance:SELF PAY [facility] Number: Effective Repository Date:2017-11-08 11/09/2017 VALERIE Blount Primary VALERIE Blount [place] [id number] Insurance:MEDICARE MELLOTTDOB: Community BRAY PART A [facility] [id number] [facility] [place] Number: Repository [address]Qyj: 330 [id number] [phone] () Date:2017-10-20 11/09/2017 Secondary VALERIE Blount [place] Insurance:AARPPolicy MELLOTTDOB: Community Number: [id number] Hospital [id number] Repository Date:2803-20-91IV [facility] 572173TBFKKDA, [place] [address]IA: 11/09/2017 Tertiary NOT GIVENUNK [place] Insurance:SELF PAY [facility] Number: Effective Repository Date:2017-10-20 11/08/2017 VALERIE K Primary VALERIE Blount [place] [id number] Insurance:MEDICARE MELLOTTDOB: Community BRAY PART A [facility] [id number] [facility] [place] Number: Repository [address]Ytr: 330 [id number] [phone] () Date:2017-09-10 11/08/2017 Secondary VALERIE Blount [place] Insurance:AARPPolicy MELLOTTDOB: Community Number: [id number] Hospital [id number] Repository Date:9757-42-68YZ [address]VPDIKRE, [place] [address]MG: 11/08/2017 Tertiary NOT GIVENUNK [place] Insurance:SELF PAY [facility] Hospital Number: Effective Repository Date:2017-11-08 10/29/2017 CE Blount Primary CE Blount [place] [id number] Insurance:MEDICARE MELLOTTDOB: Community BRAY PART A [facility] [id number] County [facility] [place] Number: Repository [address]Efh: 330 [id number] [phone] () Date:2017-10-01 10/29/2017 Secondary CE Blount [place] Insurance:AARPPolicy MELLOTTDOB: Community Number: [id number] Hospital [id number] Repository Date:0034-21-84LH [facility] 264714CAYLXZB, [place] [address]IZ: 10/29/2017 Tertiary NOT GIVENUNK [place] Insurance:SELF PAY [facility] Number: Effective Repository Date:2017-10-01 10/18/2017 CE Blount Primary CE Blount [place] [id number] Insurance:MEDICARE MELLOTTDOB: Community BRAY PART A [facility] [id number] Number: Repository 85[address]Hzr: 330 [id number] [phone] () Date:2017-09-10 10/18/2017 Secondary CE Blount [place] Insurance:AARPPolicy MELLOTTDOB: Community Number: [id number] Hospital [id number] Repository Date:4573-07-67GE [facility] 330876NGOV[place], [place] [address]FZ: 10/18/2017 Tertiary NOT GIVENUNK [place] Insurance:SELF PAY [facility] Number: Effective Repository Date:2017-10-07 10/01/2017 CE Blount Primary CE Blount [place] [id number] Insurance:MEDICARE MELLOTTDOB: Community BRAY PART A [facility] [id number], [place] Number: Repository 51941Kgt: 330 [id number] [phone] () Date:2017-09-10 10/01/2017 Secondary CE Blount [place] Insurance:AARPPolicy MELLOTTDOB: Community Number: [id number] Hospital [id number] Repository Date:8719-34-38BD [facility] 040764XYFSGSY, [place] [address]KP: 10/01/2017 Tertiary NOT GIVENUNK [place] Insurance:SELF PAY [facility] Hospital Number: Effective Repository Date:2017-09-10
== END 2018-08-26 12:00 | disposition home or self-care (01) ==
LOC: MTLAB 10:16
PROVIDERS: Family Provider Nurse Practitioner; PCP Nurse Practitioner; Referring Provider Internal Medicine Cardiovascular Disease; Visit Provider Internal Medicine Cardiovascular Disease
DX: I48.0 Paroxysmal atrial fibrillation (principal)
CPT/HCPCS: 36415; 85610

== ENCOUNTER → 2018-09-02 10:56 | Outpatient (CLI) | payer MEDICARE, OTHER, SELFPAY ==
[2018-09-02 12:14] LABS: Hematocrit 42.4 % (37-47); Hemoglobin 13.3 g/dl (12.0-15.0); Mean Corp Hgb Conc 31.4 g/gl (32-36); Mean Corpuscular Hgb 30.4 pg (27.0-32.0); Mean Platelet Vol. 11.6 fl (6.2-12.0); Platelet Count 219 K/mm3 (150-450); RBC Distribution Width CV 13.9 % (11.6-14.6); RBC Distribution Width SD 48.2 fl (35.1-43.9); Red Blood Count 4.37 M/mm3 (4.2-5.4); White Blood Count 7.6 K/mm3 (4.4-11.0)
[2018-09-02 12:21] LABS: Scan Indicated on CBC? Y/N NO
== END ==
PROVIDERS: Family Provider Nurse Practitioner; PCP Nurse Practitioner; Referring Provider Internal Medicine Pulmonary Disease; Visit Provider Internal Medicine Pulmonary Disease
DX: J45.909 Unspecified asthma, uncomplicated (principal)
CPT/HCPCS: 36415; 85027

== ENCOUNTER 2018-09-23 10:52 | Outpatient (RCR) | payer MEDICARE, OTHER, SELFPAY ==
[2018-09-06 10:19] VITALS: BMI 31.4
[2018-09-23 12:39] LABS: Prothrombin Time (Protime)PT. 31.2 SECONDS (11.7-14.9)
== END 2018-10-06 14:59 | disposition home or self-care (01) ==
LOC: MTLAB 10:52
PROVIDERS: Family Provider Nurse Practitioner; PCP Nurse Practitioner; Referring Provider Internal Medicine Cardiovascular Disease; Visit Provider Internal Medicine Cardiovascular Disease
DX: I48.0 Paroxysmal atrial fibrillation (principal); E03.9 Hypothyroidism, unspecified; E53.8 Deficiency of other specified B group vitamins; E78.00 Pure hypercholesterolemia, unspecified; Z79.01 Long term (current) use of anticoagulants
CPT/HCPCS: 36415; 85610

== ENCOUNTER 2018-10-21 10:26 | Outpatient (RCR) | payer MEDICARE, OTHER, SELFPAY ==
[2018-09-06 10:19] VITALS: BMI 31.4
[2018-10-21 13:33] LABS: International Normalized Ratio 2.6; Prothrombin Time (Protime)PT. 28.3 SECONDS (11.7-14.9)
== END 2018-10-21 11:00 | disposition home or self-care (01) ==
LOC: MTLAB 10:26
PROVIDERS: Family Provider Nurse Practitioner; PCP Nurse Practitioner; Referring Provider Internal Medicine Cardiovascular Disease; Visit Provider Internal Medicine Cardiovascular Disease
DX: I48.0 Paroxysmal atrial fibrillation (principal); Z79.01 Long term (current) use of anticoagulants
CPT/HCPCS: 36415; 85610

== ENCOUNTER 2018-11-25 14:15 | Outpatient (RCR) | payer MEDICARE, OTHER, SELFPAY ==
[2018-09-06 10:19] VITALS: BMI 31.4
[2018-11-25 15:42] LABS: International Normalized Ratio 2.4; Prothrombin Time (Protime)PT. 26.5 SECONDS (11.7-14.9)
== END 2018-12-06 16:00 | disposition home or self-care (01) ==
LOC: MTLAB 14:15
PROVIDERS: Family Provider Nurse Practitioner; PCP Nurse Practitioner; Referring Provider Internal Medicine Cardiovascular Disease; Visit Provider Internal Medicine Cardiovascular Disease
DX: I48.0 Paroxysmal atrial fibrillation (principal); Z79.01 Long term (current) use of anticoagulants
CPT/HCPCS: 36415; 85610

== ENCOUNTER 2018-12-30 09:47 | Outpatient (RCR) | payer MEDICARE, OTHER, SELFPAY ==
[2018-09-06 10:19] VITALS: BMI 31.4
[2018-12-30 12:39] LABS: International Normalized Ratio 2.8; Prothrombin Time (Protime)PT. 29.2 SECONDS (11.7-14.9)
== END 2018-12-30 11:00 | disposition home or self-care (01) ==
LOC: MTLAB 09:47
PROVIDERS: Family Provider Nurse Practitioner; PCP Nurse Practitioner; Referring Provider Internal Medicine Cardiovascular Disease; Visit Provider Internal Medicine Cardiovascular Disease
DX: I48.0 Paroxysmal atrial fibrillation (principal); Z79.01 Long term (current) use of anticoagulants
CPT/HCPCS: 36415; 85610

== ENCOUNTER → 2019-01-06 10:49 | Outpatient (CLI) | payer MEDICARE, OTHER, SELFPAY ==
[2018-09-06 10:19] VITALS: BMI 31.4
[2019-01-06 12:43] LABS: Absolute Neutrophil Count 3.3 X10^3/uL (2.0-7.7); Basophil# 0.04 X10^3/uL; Basophil% 0.6 % (0-1); Eosinophil# 0.21 X10^3/uL; Eosinophils% 3.3 % (0-5); Hematocrit 43.5 % (37-47); Hemoglobin 13.9 g/dl (12.0-15.0); Lymphocyte % 35.9 % (19-41); Mean Corpuscular Hgb 30.2 pg (27.0-32.0); Mean Corpuscular Volume 94.6 fL (81-99); Mean Platelet Vol. 11.7 fl (6.2-12.0); Monocyte# 0.57 X10^3/uL; Monocyte% 8.9 % (0-10); Neutrophil # 3.27 X10^3/uL (2.7-7.7); Neutrophil % 51.1 % (47-70); Platelet Count 221 K/mm3 (150-450); RBC Distribution Width CV 14.2 % (11.6-14.6); RBC Distribution Width SD 47.8 fl (35.1-43.9); White Blood Count 6.4 K/mm3 (4.4-11.0)
[2019-01-06 12:47] LABS: POSITIVE COUNT NO; POSITIVE DIFFERENTIAL NO; POSITIVE MORPHOLOGY NO
[2019-01-06 13:03] LABS: ALB/GLOB Ratio 1.1 RATIO (0.9-2.4); AST(SGOT) 19 U/L (15-37); Alanine Aminotransfer ALT/SGPT 28 U/L (13-56); Albumin, Serum 3.6 g/dL (3.2-5.0); Alkaline Phosphatase 65 U/L (45-117); Anion Gap 5 (5-15); BUN 31 mg/dL (7-18); BUN/Creat Ratio 26.7 RATIO (10-20); Calcium,Total 8.8 mg/dL (8.5-10.1); Chloride 106 mmol/L (98-107); Cholesterol 187 mg/dL (200); Creatinine, Serum 1.16 mg/dL (0.55-1.02); EST Glomerular Filtration Rate 48 mL/min (>60); Est Glom Filt Rate - Afr Amer 58 mL/min (>60); Globulin 3.4 g/dL (2.2-4.2); Glucose 94 mg/dL (74-106); High Density Lipoprotein 67 mg/dL; Potassium 4.8 mmol/L (3.5-5.1); Sodium Level 143 mmol/L (136-145); Thyroid Stim Hormone (TSH) 2.35 uIU/mL (0.358-3.74); Triglycerides 125 mg/dL; Very Low Density Lipoprotein 25 mg/dL (5-40); Vitamin B12 502 pg/mL (211-911)
== END ==
PROVIDERS: Family Provider Nurse Practitioner; PCP Nurse Practitioner; Referring Provider Nurse Practitioner; Visit Provider Nurse Practitioner
DX: E03.9 Hypothyroidism, unspecified (principal); E78.00 Pure hypercholesterolemia, unspecified; D64.9 Anemia, unspecified; I48.0 Paroxysmal atrial fibrillation; Z79.01 Long term (current) use of anticoagulants
CPT/HCPCS: 36415; 80053; 80061; 82607; 82746; 84443; 85025

== ENCOUNTER 2019-01-27 10:37 | Outpatient (RCR) | payer MEDICARE, OTHER, SELFPAY ==
[2018-09-06 10:19] VITALS: BMI 31.4
[2019-01-27 12:18] LABS: International Normalized Ratio 2.9; Prothrombin Time (Protime)PT. 30.5 SECONDS (11.7-14.9)
== END 2019-01-27 11:00 | disposition home or self-care (01) ==
LOC: MTLAB 10:37
PROVIDERS: Family Provider Nurse Practitioner; PCP Nurse Practitioner; Referring Provider Internal Medicine Cardiovascular Disease; Visit Provider Internal Medicine Cardiovascular Disease
DX: I48.0 Paroxysmal atrial fibrillation (principal); Z79.01 Long term (current) use of anticoagulants
CPT/HCPCS: 36415; 85610

== ENCOUNTER 2019-02-24 10:49 | Outpatient (RCR) | payer MEDICARE, OTHER, SELFPAY ==
[2018-09-06 10:19] VITALS: BMI 31.4
[2019-02-24 12:26] LABS: International Normalized Ratio 2.8; Prothrombin Time (Protime)PT. 29.5 SECONDS (11.7-14.9)
== END 2019-02-24 11:00 | disposition home or self-care (01) ==
LOC: MTLAB 10:49
PROVIDERS: Family Provider Nurse Practitioner; PCP Nurse Practitioner; Referring Provider Internal Medicine Cardiovascular Disease; Visit Provider Internal Medicine Cardiovascular Disease
DX: I48.0 Paroxysmal atrial fibrillation (principal); Z79.01 Long term (current) use of anticoagulants
CPT/HCPCS: 36415; 85610

== ENCOUNTER 2019-03-24 10:06 | Outpatient (RCR) | payer MEDICARE, OTHER, SELFPAY ==
[2018-09-06 10:19] VITALS: BMI 31.4
[2019-03-24 12:36] LABS: International Normalized Ratio 3.4; Prothrombin Time (Protime)PT. 34.4 SECONDS (11.7-14.9)
== END 2019-03-24 11:06 | disposition home or self-care (01) ==
LOC: MTLAB 10:06
PROVIDERS: Family Provider Nurse Practitioner; PCP Nurse Practitioner; Referring Provider Internal Medicine Cardiovascular Disease; Visit Provider Internal Medicine Cardiovascular Disease
DX: I48.0 Paroxysmal atrial fibrillation (principal); Z79.01 Long term (current) use of anticoagulants
CPT/HCPCS: 36415; 85610

== ENCOUNTER 2019-04-14 13:06 | Outpatient (RCR) | payer MEDICARE, OTHER, SELFPAY ==
[2018-09-06 10:19] VITALS: BMI 31.4
[2019-04-14 14:20] LABS: International Normalized Ratio 2.9; Prothrombin Time (Protime)PT. 30.3 SECONDS (11.7-14.9)
== END 2019-04-14 18:00 | disposition home or self-care (01) ==
LOC: MTLAB 13:06
PROVIDERS: Family Provider Nurse Practitioner; PCP Nurse Practitioner; Referring Provider Internal Medicine Cardiovascular Disease; Visit Provider Internal Medicine Cardiovascular Disease
DX: I48.0 Paroxysmal atrial fibrillation (principal); Z79.01 Long term (current) use of anticoagulants
CPT/HCPCS: 36415; 85610

== ENCOUNTER 2019-06-08 12:07 | Outpatient (CLI) | payer MEDICARE, OTHER, SELFPAY ==
[2018-09-06 10:19] VITALS: BMI 31.4
[2019-06-08 13:53] LABS: Absolute Lymphocyte Count 2.13 X10^3/uL (0.83-4.51); Absolute Neutrophil Count 4.1 X10^3/uL (2.0-7.7); Basophil# 0.06 X10^3/uL; Basophil% 0.9 % (0-1); Eosinophil# 0.17 X10^3/uL; Eosinophils% 2.5 % (0-5); Hematocrit 43.4 % (37-47); Hemoglobin 13.5 g/dL (12.0-15.0); Lymphocyte # 2.13 X10^3/ul (4.0); Lymphocyte % 30.8 % (19-41); Mean Corp Hgb Conc 31.1 g/dL (32-36); Mean Corpuscular Hgb 30.6 pg (27.0-32.0); Mean Corpuscular Volume 98.4 fL (81-99); Mean Platelet Vol. 11.8 fl (6.2-12.0); Monocyte# 0.47 X10^3/uL; Monocyte% 6.8 % (0-10); NRBC Flagged by Analyzer 0 % (0-5); Neutrophil # 4.06 X10^3/uL (2.7-7.7); Neutrophil % 58.7 % (47-70); Platelet Count 232 K/mm3 (150-450); RBC Distribution Width CV 13.8 % (11.6-14.6); RBC Distribution Width SD 50.6 fl (35.1-43.9); Red Blood Count 4.41 M/mm3 (4.2-5.4); White Blood Count 6.9 K/mm3 (4.4-11.0)
[2019-06-08 14:21] LABS: Vitamin B12 334 pg/mL (211-911)
[2019-06-08 14:28] LABS: ALB/GLOB Ratio 1.2 RATIO (0.9-2.4); AST(SGOT) 21 U/L (15-37); Alanine Aminotransfer ALT/SGPT 26 U/L (13-56); Albumin, Serum 3.6 g/dL (3.2-5.0); Alkaline Phosphatase 65 U/L (45-117); Anion Gap 6 (5-15); BUN 26 mg/dL (7-18); BUN/Creat Ratio 23.4 RATIO (10-20); Calcium,Total 8.7 mg/dL (8.5-10.1); Chloride 108 mmol/L (98-107); Creatinine, Serum 1.11 mg/dL (0.55-1.02); EST Glomerular Filtration Rate 50 mL/min (>60); Est Glom Filt Rate - Afr Amer 61 mL/min (>60); Globulin 3.1 g/dL (2.2-4.2); Glucose 98 mg/dL (74-106); Protein, Total 6.7 g/dL (6.4-8.2); Sodium Level 145 mmol/L (136-145); Thyroid Stim Hormone (TSH) 1.77 uIU/mL (0.358-3.74)
== END 2019-06-08 18:00 | disposition home or self-care (01) ==
LOC: LAB 12:09
PROVIDERS: Family Provider Nurse Practitioner; PCP Nurse Practitioner; Referring Provider Nurse Practitioner; Visit Provider Nurse Practitioner
DX: I11.9 Hypertensive heart disease without heart failure (principal); I48.91 Unspecified atrial fibrillation; E03.9 Hypothyroidism, unspecified; E53.8 Deficiency of other specified B group vitamins
CPT/HCPCS: 80053; 82607; 82746; 84443; 85025

== ENCOUNTER 2019-06-23 11:08 | Outpatient (RCR) | payer MEDICARE, OTHER, SELFPAY ==
[2018-09-06 10:19] VITALS: BMI 31.4
[2019-05-12 10:59] LABS: International Normalized Ratio 2.2; Prothrombin Time (Protime)PT. 24.4 SECONDS (11.7-14.9)
[2019-06-08 14:03] LABS: International Normalized Ratio 1.9; Prothrombin Time (Protime)PT. 21.5 SECONDS (11.7-14.9)
[2019-06-23 12:27] LABS: International Normalized Ratio 2.4; Prothrombin Time (Protime)PT. 26.1 SECONDS (11.7-14.9)
== END 2019-06-23 18:00 | disposition home or self-care (01) ==
LOC: MTLAB 11:08
PROVIDERS: Family Provider Nurse Practitioner; PCP Nurse Practitioner; Referring Provider Internal Medicine Cardiovascular Disease; Visit Provider Internal Medicine Cardiovascular Disease
DX: I48.0 Paroxysmal atrial fibrillation (principal); Z79.01 Long term (current) use of anticoagulants; I11.9 Hypertensive heart disease without heart failure; E03.9 Hypothyroidism, unspecified; E53.8 Deficiency of other specified B group vitamins
CPT/HCPCS: 36415; 80053; 82607; 82746; 84443; 85025; 85610

== ENCOUNTER 2019-07-14 09:17 | Outpatient (RCR) | payer MEDICARE, OTHER, SELFPAY ==
[2018-09-06 10:19] VITALS: BMI 31.4
[2019-07-14 10:26] LABS: International Normalized Ratio 2.4; Prothrombin Time (Protime)PT. 26.3 SECONDS (11.7-14.9)
== END 2019-07-14 18:00 | disposition home or self-care (01) ==
LOC: MTLAB 09:17
PROVIDERS: Family Provider Nurse Practitioner; PCP Nurse Practitioner; Referring Provider Internal Medicine Cardiovascular Disease; Visit Provider Internal Medicine Cardiovascular Disease
DX: E78.5 Hyperlipidemia, unspecified (principal); I65.22 Occlusion and stenosis of left carotid artery; I48.0 Paroxysmal atrial fibrillation; Z90.49 Acquired absence of other specified parts of digestive tract; Z79.01 Long term (current) use of anticoagulants; Z86.79 Personal history of other diseases of the circulatory system; Z98.890 Other specified postprocedural states
CPT/HCPCS: 36415; 85610

== ENCOUNTER → 2019-07-18 11:57 | Outpatient (CLI) | payer MEDICARE, OTHER, SELFPAY ==
[2018-09-06 10:19] VITALS: BMI 31.4
--- NOTE | 2019-07-18 12:00 | BI_ITS ---
MAMMOGRAPHY - BILATERAL SCREENING REASON FOR EXAM: Female, 79 years old. Routine annual screening examination. PERTINENT HISTORY: Non-contributory. TECHNIQUE: Digital bilateral breast luis alberto (3D mammographic acquisition) in the CC and MLO projections. 2-D mediolateral oblique (MLO) and craniocaudad (CC) views of both breasts were obtained. CAD: Full Field Digital Mammography with Computer Added Detection was performed. COMPARISON: Comparison is made with prior study dated July 08, 2018 and May 17, 2017. FINDINGS: Breast Composition: There are scattered areas of fibroglandular density. There are no dominant masses or suspicious calcifications. No other significant abnormalities are identified. There has been no significant change since the prior study. BI/SCREEN MAMM (CAD) W/LUIS ALBERTO BILAT IMPRESSION: Stable bilateral screening mammogram. Yearly follow-up mammogram recommended. (A) ASSESSMENT CATEGORY: BIRADS Category 1: Negative. A letter regarding these results will be sent to the patient by the facility within 30 days. Approximately 10% of breast cancers are not detected by mammography. A normal mammogram should not delay biopsy of a clinically suspicious abnormality. [id number] Electronically Signed: Henry Jones, at 13:07 EST , Service support ,
== END ==
PROVIDERS: Family Provider Nurse Practitioner; PCP Nurse Practitioner; Referring Provider Nurse Practitioner; Visit Provider Nurse Practitioner
DX: Z12.31 Encounter for screening mammogram for malignant neoplasm of breast (principal)
CPT/HCPCS: 77063; 77067

== ENCOUNTER 2019-09-04 08:41 | Outpatient (RCR) | payer MEDICARE, OTHER, SELFPAY ==
[2018-09-06 10:19] VITALS: BMI 31.4
[2019-08-18 10:46] LABS: International Normalized Ratio 2.4; Prothrombin Time (Protime)PT. 26.2 SECONDS (11.7-14.9)
[2019-09-04 10:21] LABS: International Normalized Ratio 2.4; Prothrombin Time (Protime)PT. 26.6 SECONDS (11.7-14.9)
== END 2019-09-04 18:00 | disposition home or self-care (01) ==
LOC: MTLAB 08:41
PROVIDERS: Family Provider Nurse Practitioner; PCP Nurse Practitioner; Referring Provider Internal Medicine Cardiovascular Disease; Visit Provider Internal Medicine Cardiovascular Disease
DX: I48.0 Paroxysmal atrial fibrillation (principal); E78.5 Hyperlipidemia, unspecified; I65.22 Occlusion and stenosis of left carotid artery; Z90.49 Acquired absence of other specified parts of digestive tract; Z79.01 Long term (current) use of anticoagulants; Z86.79 Personal history of other diseases of the circulatory system; Z98.890 Other specified postprocedural states
CPT/HCPCS: 36415; 85610

== ENCOUNTER 2019-09-29 10:51 | Outpatient (RCR) | payer MEDICARE, OTHER, SELFPAY ==
[2019-09-05 08:26] VITALS: BMI 30.2
[2019-09-29 13:14] LABS: International Normalized Ratio 2.6; Prothrombin Time (Protime)PT. 27.8 SECONDS (11.7-14.9)
== END 2019-09-29 18:00 | disposition home or self-care (01) ==
LOC: MTLAB 10:51
PROVIDERS: Family Provider Nurse Practitioner; PCP Nurse Practitioner; Referring Provider Internal Medicine Cardiovascular Disease; Visit Provider Internal Medicine Cardiovascular Disease
DX: I48.0 Paroxysmal atrial fibrillation (principal); E78.5 Hyperlipidemia, unspecified; I65.22 Occlusion and stenosis of left carotid artery; Z90.49 Acquired absence of other specified parts of digestive tract; Z79.01 Long term (current) use of anticoagulants; Z86.79 Personal history of other diseases of the circulatory system; Z98.890 Other specified postprocedural states
CPT/HCPCS: 36415; 85610

== ENCOUNTER 2019-10-27 10:45 | Outpatient (RCR) | payer MEDICARE, OTHER, SELFPAY ==
[2019-09-05 08:26] VITALS: BMI 30.2
[2019-10-27 12:47] LABS: International Normalized Ratio 2.6; Prothrombin Time (Protime)PT. 27.7 SECONDS (11.7-14.9)
== END 2019-10-27 18:00 | disposition home or self-care (01) ==
LOC: MTLAB 10:45
PROVIDERS: Family Provider Nurse Practitioner; PCP Nurse Practitioner; Referring Provider Internal Medicine Cardiovascular Disease; Visit Provider Internal Medicine Cardiovascular Disease
DX: I48.0 Paroxysmal atrial fibrillation (principal); E78.5 Hyperlipidemia, unspecified; I65.22 Occlusion and stenosis of left carotid artery; Z90.49 Acquired absence of other specified parts of digestive tract; Z79.01 Long term (current) use of anticoagulants; Z86.79 Personal history of other diseases of the circulatory system; Z98.890 Other specified postprocedural states
CPT/HCPCS: 36415; 85610

== ENCOUNTER 2019-12-01 11:08 | Outpatient (RCR) | payer MEDICARE, OTHER, SELFPAY ==
[2019-09-05 08:26] VITALS: BMI 30.2
[2019-12-01 12:36] LABS: International Normalized Ratio 3.2; Prothrombin Time (Protime)PT. 32.2 SECONDS (11.7-14.9)
== END 2019-12-07 18:00 | disposition home or self-care (01) ==
LOC: MTLAB 11:08
PROVIDERS: Family Provider Nurse Practitioner; PCP Nurse Practitioner; Referring Provider Internal Medicine Cardiovascular Disease; Visit Provider Internal Medicine Cardiovascular Disease
DX: I48.0 Paroxysmal atrial fibrillation (principal); E78.5 Hyperlipidemia, unspecified; I65.22 Occlusion and stenosis of left carotid artery; Z90.49 Acquired absence of other specified parts of digestive tract; Z79.01 Long term (current) use of anticoagulants; Z86.79 Personal history of other diseases of the circulatory system; Z98.890 Other specified postprocedural states
CPT/HCPCS: 36415; 85610

== ENCOUNTER 2019-12-22 10:29 | Outpatient (RCR) | payer MEDICARE, OTHER, SELFPAY ==
[2019-09-05 08:26] VITALS: BMI 30.2
[2019-12-22 13:03] LABS: International Normalized Ratio 2.4; Prothrombin Time (Protime)PT. 25.9 SECONDS (11.7-14.9)
[2019-12-22 13:37] LABS: Vitamin B12 392 pg/mL (211-911)
[2019-12-22 13:44] LABS: ALB/GLOB Ratio 1.3 RATIO (0.9-2.4); AST(SGOT) 17 U/L (15-37); Alanine Aminotransfer ALT/SGPT 23 U/L (13-56); Albumin, Serum 3.7 g/dL (3.2-5.0); Alkaline Phosphatase 61 U/L (45-117); Anion Gap 3 (5-15); BUN 24 mg/dL (7-18); Calcium,Total 8.9 mg/dL (8.5-10.1); Chloride 110 mmol/L (98-107); Cholesterol 190 mg/dL (200); Creatinine, Serum 1.09 mg/dL (0.55-1.02); EST Glomerular Filtration Rate 51 mL/min (>60); Est Glom Filt Rate - Afr Amer 62 mL/min (>60); Globulin 2.8 g/dL (2.2-4.2); Glucose 89 mg/dL (74-106); High Density Lipoprotein 72 mg/dL; Potassium 4.7 mmol/L (3.5-5.1); Protein, Total 6.5 g/dL (6.4-8.2); Sodium Level 144 mmol/L (136-145); Triglycerides 111 mg/dL; Very Low Density Lipoprotein 22 mg/dL (5-40)
== END 2019-12-22 18:00 | disposition home or self-care (01) ==
LOC: MTLAB 10:29
PROVIDERS: Family Provider Nurse Practitioner; PCP Nurse Practitioner; Referring Provider Internal Medicine Cardiovascular Disease; Visit Provider Internal Medicine Cardiovascular Disease
DX: I48.0 Paroxysmal atrial fibrillation (principal); I11.9 Hypertensive heart disease without heart failure; E03.9 Hypothyroidism, unspecified; E78.5 Hyperlipidemia, unspecified; I65.22 Occlusion and stenosis of left carotid artery; Z90.49 Acquired absence of other specified parts of digestive tract; Z79.01 Long term (current) use of anticoagulants; Z86.79 Personal history of other diseases of the circulatory system; Z98.890 Other specified postprocedural states
CPT/HCPCS: 36415; 80053; 80061; 82607; 84443; 85610

== ENCOUNTER → 2020-01-04 11:04 | Outpatient (CLI) | payer MEDICARE, OTHER, SELFPAY ==
[2019-09-05 08:26] VITALS: BMI 30.2
--- NOTE | 2020-01-04 11:08 | BD_ITS ---
STUDY: DUAL ENERGY X-RAY ABSORPTIOMETRY / DXA REASON FOR EXAM: Female, 79 years old. Age of surgical kimberly 29. Pat is 173.6# and 63'' a loss of 2 and quot; per pat. Past hx of using an HRT. Uses an inhaler prn. Takes synthroid and has a diuretic in her BPM. Takes Calcium and a multi-vit. Has been taking fosamax for a year or so. Does not exercise. TECHNIQUE: Bone Mineral Density (BMD) measurements of lumbar spine and bilateral hips were obtained. COMPARISON: Comparison is made with prior examination dated November 09, 2017. FINDINGS: Lumbar Spine (L1-L4): g/cm2 (1.363) / T-score (1.5) / Z-score (3.4) Findings are suggestive of normal bone density with a low fracture risk. Left Femur Total: g/cm2 (0.948) / T-score (-0.5) / Z-score (1.6) Left Femoral Neck: g/cm2 (0.842) / T-score (-1.4) / Z-score (0.8) Right Femur Total: g/cm2 (0.896) / T-score (-0.9) / Z-score (1.1) Right Femoral Neck: g/cm2 (1.005) / T-score (-0.2) / Z-score (1.9) The T-Scores on the most recent prior examination were: Lumbar Spine (L1-L4): There has been improvement of bone density since the previous examination. Left Femur Total: which represents an improvement of 1.2%. Right Femur Total: which represents an improvement of 1.4%. BD/Dexa Bone Density Study IMPRESSION: The patient is considered osteopenic as outlined below according to World Kirill Organization (WHO) criteria with a low fracture risk. There has been improvement of bone density since the previous examination. Reference Information: The T-score is the number of standard deviations above or below the standard which is normal for young adults at their peak bone mineral density. The World Health Organization (WHO) interprets the T-scores as follows: Above -1 Normal bone density Between -1 and -2.5 Osteopenia Equal to / or below -2.5 Osteoporosis As a practical clinical guideline, osteopenia may be graded as follows: Mild -1 through -1.5 Moderate -1.6 through -2.0 Severe -2.1 through -2.4 The Z-score is the number of standard deviations above or below age-matched controls. A Z-score of less than -1.5 would be considered abnormal. References: 1. NIH Osteoporosis and Related Bone Diseases http://www.osteo.org 2. International Society for Clinical Densitometry http://www.iscd.org 3. National Osteoporosis Foundation http://www.nof.org Electronically Signed: Henry Jones, at 13:39 EDT , Service support ,
== END ==
PROVIDERS: PCP Nurse Practitioner; Referring Provider Nurse Practitioner; Visit Provider Nurse Practitioner
DX: Z78.0 Asymptomatic menopausal state (principal)
CPT/HCPCS: 77080

== ENCOUNTER 2020-01-24 08:41 | Outpatient (RCR) | payer MEDICARE, OTHER, SELFPAY ==
[2019-09-05 08:26] VITALS: BMI 30.2
[2020-01-24 10:21] LABS: International Normalized Ratio 2.3; Prothrombin Time (Protime)PT. 24.9 SECONDS (11.7-14.9)
== END 2020-01-24 18:00 | disposition home or self-care (01) ==
LOC: MTLAB 08:41
PROVIDERS: Family Provider Nurse Practitioner; PCP Nurse Practitioner; Referring Provider Internal Medicine Cardiovascular Disease; Visit Provider Internal Medicine Cardiovascular Disease
DX: E78.5 Hyperlipidemia, unspecified (principal); I65.22 Occlusion and stenosis of left carotid artery; I48.0 Paroxysmal atrial fibrillation; Z90.49 Acquired absence of other specified parts of digestive tract; Z79.01 Long term (current) use of anticoagulants; Z86.79 Personal history of other diseases of the circulatory system; Z98.890 Other specified postprocedural states
CPT/HCPCS: 36415; 85610

== ENCOUNTER 2020-03-01 10:15 | Outpatient (RCR) | payer MEDICARE, OTHER, SELFPAY ==
[2019-09-05 08:26] VITALS: BMI 30.2
[2020-02-23 12:32] LABS: International Normalized Ratio 3.4; Prothrombin Time (Protime)PT. 34.2 SECONDS (11.7-14.9)
[2020-03-01 15:30] LABS: International Normalized Ratio 2.8; Prothrombin Time (Protime)PT. 29.3 SECONDS (11.7-14.9)
== END 2020-03-01 18:00 | disposition home or self-care (01) ==
LOC: MTLAB 10:15
PROVIDERS: Family Provider Nurse Practitioner; PCP Nurse Practitioner; Referring Provider Internal Medicine Cardiovascular Disease; Visit Provider Internal Medicine Cardiovascular Disease
DX: I48.0 Paroxysmal atrial fibrillation (principal); E78.5 Hyperlipidemia, unspecified; I65.22 Occlusion and stenosis of left carotid artery; Z90.49 Acquired absence of other specified parts of digestive tract; Z79.01 Long term (current) use of anticoagulants; Z86.79 Personal history of other diseases of the circulatory system; Z98.890 Other specified postprocedural states
CPT/HCPCS: 36415; 85610

== ENCOUNTER 2020-03-22 08:58 | Outpatient (RCR) | payer MEDICARE, OTHER, SELFPAY ==
[2019-09-05 08:26] VITALS: BMI 30.2
[2020-03-22 10:02] LABS: International Normalized Ratio 2.7; Prothrombin Time (Protime)PT. 28.4 SECONDS (11.7-14.9)
== END 2020-04-08 18:00 | disposition home or self-care (01) ==
LOC: MTLAB 08:58
PROVIDERS: Family Provider Nurse Practitioner; PCP Nurse Practitioner; Referring Provider Internal Medicine Cardiovascular Disease; Visit Provider Internal Medicine Cardiovascular Disease
DX: I48.0 Paroxysmal atrial fibrillation (principal); E78.5 Hyperlipidemia, unspecified; I65.22 Occlusion and stenosis of left carotid artery; Z90.49 Acquired absence of other specified parts of digestive tract; Z79.01 Long term (current) use of anticoagulants; Z86.79 Personal history of other diseases of the circulatory system; Z98.890 Other specified postprocedural states
CPT/HCPCS: 36415; 85610

== ENCOUNTER 2020-04-16 11:49 | Outpatient (RCR) | payer MEDICARE, OTHER, SELFPAY ==
[2019-09-05 08:26] VITALS: BMI 30.2
[2020-04-16 16:15] LABS: International Normalized Ratio 2.4
== END 2020-04-16 18:00 | disposition home or self-care (01) ==
LOC: MTLAB 11:49
PROVIDERS: Family Provider Nurse Practitioner; PCP Nurse Practitioner; Referring Provider Internal Medicine Cardiovascular Disease; Visit Provider Internal Medicine Cardiovascular Disease
DX: I48.0 Paroxysmal atrial fibrillation (principal); E78.5 Hyperlipidemia, unspecified; I65.22 Occlusion and stenosis of left carotid artery; Z90.49 Acquired absence of other specified parts of digestive tract; Z79.01 Long term (current) use of anticoagulants; Z86.79 Personal history of other diseases of the circulatory system; Z98.890 Other specified postprocedural states
CPT/HCPCS: 36415; 85610

== ENCOUNTER 2020-05-20 08:32 | Outpatient (RCR) | payer MEDICARE, OTHER, SELFPAY ==
[2019-09-05 08:26] VITALS: BMI 30.2
[2020-05-20 10:07] LABS: Prothrombin Time (Protime)PT. 30.9 SECONDS (11.7-14.9)
[2020-05-20 10:28] LABS: AST(SGOT) 20 U/L (15-37); Alanine Aminotransfer ALT/SGPT 26 U/L (13-56); Albumin, Serum 3.6 g/dL (3.2-5.0); Alkaline Phosphatase 64 U/L (45-117); Bilirubin, Direct 0.12 mg/dL (0.00-0.30); Cholesterol 175 mg/dL (200); Globulin 3.1 g/dL (2.2-4.2); High Density Lipoprotein 64 mg/dL; Protein, Total 6.7 g/dL (6.4-8.2); Triglycerides 136 mg/dL; Very Low Density Lipoprotein 27 mg/dL (5-40)
== END 2020-05-20 18:00 | disposition home or self-care (01) ==
LOC: MTLAB 08:32
PROVIDERS: Family Provider Nurse Practitioner; PCP Nurse Practitioner; Referring Provider Internal Medicine Cardiovascular Disease; Visit Provider Internal Medicine Cardiovascular Disease
DX: I48.0 Paroxysmal atrial fibrillation (principal); E78.5 Hyperlipidemia, unspecified; I65.22 Occlusion and stenosis of left carotid artery; Z90.49 Acquired absence of other specified parts of digestive tract; Z79.01 Long term (current) use of anticoagulants; Z86.79 Personal history of other diseases of the circulatory system; Z98.890 Other specified postprocedural states
CPT/HCPCS: 36415; 80061; 80076; 85610

== ENCOUNTER 2020-06-21 11:03 | Outpatient (RCR) | payer MEDICARE, OTHER, SELFPAY ==
[2019-09-05 08:26] VITALS: BMI 30.2
[2020-06-21 12:56] LABS: International Normalized Ratio 2.8; Prothrombin Time (Protime)PT. 28.7 SECONDS (11.7-14.9)
== END 2020-06-21 18:00 | disposition home or self-care (01) ==
LOC: MTLAB 11:03
PROVIDERS: Family Provider Nurse Practitioner; PCP Nurse Practitioner; Referring Provider Internal Medicine Cardiovascular Disease; Visit Provider Internal Medicine Cardiovascular Disease
DX: I48.0 Paroxysmal atrial fibrillation (principal); E78.5 Hyperlipidemia, unspecified; I65.22 Occlusion and stenosis of left carotid artery; Z90.49 Acquired absence of other specified parts of digestive tract; Z79.01 Long term (current) use of anticoagulants; Z86.79 Personal history of other diseases of the circulatory system; Z98.890 Other specified postprocedural states
CPT/HCPCS: 36415; 85610

== ENCOUNTER 2020-07-26 09:03 | Outpatient (RCR) | payer MEDICARE, OTHER, SELFPAY ==
[2019-09-05 08:26] VITALS: BMI 30.2
[2020-07-26 10:07] LABS: Absolute Lymphocyte Count 2.49 X10^3/uL (0.83-4.51); Absolute Neutrophil Count 3.3 X10^3/uL (2.0-7.7); Basophil# 0.05 X10^3/uL; Basophil% 0.7 % (0-1); Eosinophil# 0.34 X10^3/uL; Hematocrit 43.1 % (37-47); Hemoglobin 13.3 g/dL (12.0-15.0); Lymphocyte # 2.49 X10^3/ul (4.0); Lymphocyte % 36.7 % (19-41); Mean Corp Hgb Conc 30.9 g/dL (32-36); Mean Corpuscular Hgb 29.8 pg (27.0-32.0); Mean Corpuscular Volume 96.6 fL (81-99); Mean Platelet Vol. 11.1 fl (6.2-12.0); Monocyte# 0.59 X10^3/uL; Monocyte% 8.7 % (0-10); NRBC Flagged by Analyzer 0 % (0-5); Neutrophil # 3.31 X10^3/uL (2.7-7.7); Neutrophil % 48.8 % (47-70); Platelet Count 242 K/mm3 (150-450); RBC Distribution Width CV 13.7 % (11.6-14.6); RBC Distribution Width SD 49.5 fl (35.1-43.9); Red Blood Count 4.46 M/mm3 (4.2-5.4); White Blood Count 6.8 K/mm3 (4.4-11.0)
[2020-07-26 10:18] LABS: International Normalized Ratio 2.6; Prothrombin Time (Protime)PT. 27.4 SECONDS (11.7-14.9)
[2020-07-26 10:40] LABS: Vitamin B12 668 pg/mL (211-911); Vitamin D,25 Hydroxy 34.5 ng/mL
[2020-07-26 10:52] LABS: Thyroid Stim Hormone (TSH) 3.56 uIU/mL (0.358-3.74)
== END 2020-07-26 18:00 | disposition home or self-care (01) ==
LOC: MTLAB 09:03
PROVIDERS: Family Provider Nurse Practitioner; PCP Nurse Practitioner; Referring Provider Internal Medicine Cardiovascular Disease; Visit Provider Internal Medicine Cardiovascular Disease
DX: I48.0 Paroxysmal atrial fibrillation (principal); E78.5 Hyperlipidemia, unspecified; I65.22 Occlusion and stenosis of left carotid artery; Z90.49 Acquired absence of other specified parts of digestive tract; Z79.01 Long term (current) use of anticoagulants; Z86.79 Personal history of other diseases of the circulatory system; Z98.890 Other specified postprocedural states; E55.9 Vitamin D deficiency, unspecified; E03.9 Hypothyroidism, unspecified; E53.8 Deficiency of other specified B group vitamins
CPT/HCPCS: 36415; 82306; 82607; 82746; 84443; 85025; 85610

== ENCOUNTER → 2020-08-08 11:56 | Outpatient (CLI) | payer MEDICARE, OTHER, SELFPAY ==
[2019-09-05 08:26] VITALS: BMI 30.2
--- NOTE | 2020-08-08 11:59 | EKG12_ITS ---
Test Reason : PRE OP Blood Pressure : / mmHG Vent. Rate : 056 BPM Atrial Rate : 056 BPM P-R Int : 264 ms QRS Dur : 082 ms QT Int : 438 ms P-R-T Axes : 061 -15 050 degrees QTc Int : 422 ms Sinus bradycardia with 1st degree A-V block Otherwise normal ECG Confirmed by CRISTELA CHRISTIANSEN, MARIANN ([id number]), movie editor YASMANI RUBALCAVA ([id number]) on 08/12/2020 9:34:48 AM Referred By: JEANIE Confirmed By:CHRISTOPHER ARCHIBALD MD
[2020-08-08 13:37] LABS: Hematocrit 43.5 % (37-47); Hemoglobin 13.8 g/dL (12.0-15.0); Mean Corp Hgb Conc 31.7 g/dL (32-36); Mean Corpuscular Hgb 30.9 pg (27.0-32.0); Mean Corpuscular Volume 97.3 fL (81-99); Mean Platelet Vol. 11.7 fl (6.2-12.0); Platelet Count 243 K/mm3 (150-450); RBC Distribution Width CV 13.6 % (11.6-14.6); RBC Distribution Width SD 49.2 fl (35.1-43.9); Red Blood Count 4.47 M/mm3 (4.2-5.4); White Blood Count 7.2 K/mm3 (4.4-11.0)
[2020-08-08 13:46] LABS: International Normalized Ratio 2.5; Prothrombin Time (Protime)PT. 26.8 SECONDS (11.7-14.9)
[2020-08-08 14:02] LABS: Anion Gap 2 (5-15); BUN 23 mg/dL (7-18); BUN/Creat Ratio 22.8 RATIO (10-20); Calcium,Total 8.9 mg/dL (8.5-10.1); Chloride 108 mmol/L (98-107); Creatinine, Serum 1.01 mg/dL (0.55-1.02); EST Glomerular Filtration Rate 56 mL/min (>60); Est Glom Filt Rate - Afr Amer 68 mL/min (>60); Glucose 85 mg/dL (74-106); Potassium 4.7 mmol/L (3.5-5.1); Sodium Level 142 mmol/L (136-145)
== END ==
PROVIDERS: PCP Nurse Practitioner; Visit Provider Surgery
DX: Z01.810 Encounter for preprocedural cardiovascular examination (principal); Z01.812 Encounter for preprocedural laboratory examination
CPT/HCPCS: 36415; 80048; 85027; 85610; 87635; 93005; C9803; U0003

== ENCOUNTER 2020-09-05 11:12 | Outpatient (RCR) | payer MEDICARE, OTHER, SELFPAY ==
[2019-09-05 08:26] VITALS: BMI 30.2
[2020-08-21 15:06] LABS: International Normalized Ratio 1.9; Prothrombin Time (Protime)PT. 21.3 SECONDS (11.7-14.9)
[2020-09-05 12:52] LABS: International Normalized Ratio 2.7; Prothrombin Time (Protime)PT. 28.1 SECONDS (11.7-14.9)
== END 2020-09-05 18:00 | disposition home or self-care (01) ==
LOC: MTLAB 11:12
PROVIDERS: Family Provider Nurse Practitioner; PCP Nurse Practitioner; Referring Provider Internal Medicine Cardiovascular Disease; Visit Provider Internal Medicine Cardiovascular Disease
DX: I48.0 Paroxysmal atrial fibrillation (principal); Z79.01 Long term (current) use of anticoagulants
CPT/HCPCS: 36415; 85610

== ENCOUNTER 2020-09-30 11:41 | Outpatient (RCR) | payer MEDICARE, OTHER, SELFPAY ==
[2020-09-05 08:47] VITALS: BMI 31.6
[2020-09-30 15:28] LABS: International Normalized Ratio 2.4; Prothrombin Time (Protime)PT. 26.1 SECONDS (11.7-14.9)
== END 2020-09-30 18:00 | disposition home or self-care (01) ==
LOC: MTLAB 11:41
PROVIDERS: Family Provider Nurse Practitioner; PCP Nurse Practitioner; Referring Provider Internal Medicine Cardiovascular Disease; Visit Provider Internal Medicine Cardiovascular Disease
DX: I48.0 Paroxysmal atrial fibrillation (principal); Z79.01 Long term (current) use of anticoagulants
CPT/HCPCS: 36415; 85610

== ENCOUNTER 2020-10-23 08:22 | Outpatient (RCR) | payer MEDICARE, OTHER, SELFPAY ==
[2020-09-05 08:47] VITALS: BMI 31.6
--- NOTE | 2020-10-23 08:26 | RAD_ITS ---
STUDY: X-RAY - LUMBAR SPINE REASON FOR EXAM: Female, 80 years old. right side mid to lower back pain TECHNIQUE: 3 view(s) of the lumbar spine were obtained. COMPARISON: None FINDINGS: Normal lumbar lordosis. There is no substantial scoliosis. There is a normal alignment of the vertebrae. There is multilevel endplate spondylosis of the lumbar vertebrae. There is multi-level degenerative disc disease with multi-level disc space narrowing. There is no demonstrated fracture. The soft tissue structures are unremarkable. RAD/Lumbar Spine 2 or 3 Views IMPRESSION: Degenerative changes of the spine, as detailed above. Electronically Signed: Bulmaro Brannon DO at 1:37 EDT Tel , Service support ,
--- NOTE | 2020-10-23 09:01 | RAD_ITS ---
STUDY: X-RAY CHEST REASON FOR EXAM: Female, 80 years old. amio -- paroxysmal atrial fibrillation TECHNIQUE: PA and lateral views of the chest. COMPARISON: None. FINDINGS: There is hyperinflation of the lungs consistent with chronic obstructive lung disease (COPD). Lungs are clear. There is no demonstrated pleural abnormality. Mild cardiomegaly. Median sternotomy wires are noted. Normal mediastinum and peng. Normal visualized pulmonary arteries. Normal visualized aortic arch and descending thoracic aorta. Normal visualized thoracic spine. Normal visualized ribs, clavicles, and shoulders. There is no demonstrated abnormality of the visualized soft tissue structures of the upper abdomen. RAD/Chest PA and Lateral IMPRESSION: Normal x-ray examination of the chest. Electronically Signed: Bulmaro Brannon DO at 1:35 EDT Tel , Service support ,
[2020-10-23 10:24] LABS: International Normalized Ratio 2.1; Prothrombin Time (Protime)PT. 22.9 SECONDS (11.7-14.9)
[2020-10-23 11:31] LABS: ALB/GLOB Ratio 1.2 RATIO (0.9-2.4); AST(SGOT) 16 U/L (15-37); Alanine Aminotransfer ALT/SGPT 23 U/L (13-56); Albumin, Serum 3.6 g/dL (3.2-5.0); Alkaline Phosphatase 71 U/L (45-117); Anion Gap 3 (5-15); BUN 21 mg/dL (7-18); BUN/Creat Ratio 20.2 RATIO (10-20); Calcium,Total 8.7 mg/dL (8.5-10.1); Chloride 107 mmol/L (98-107); Creatinine, Serum 1.04 mg/dL (0.55-1.02); EST Glomerular Filtration Rate 54 mL/min (>60); Est Glom Filt Rate - Afr Amer 65 mL/min (>60); Globulin 3.1 g/dL (2.2-4.2); Glucose 93 mg/dL (74-106); Potassium 4.4 mmol/L (3.5-5.1); Protein, Total 6.7 g/dL (6.4-8.2); Sodium Level 140 mmol/L (136-145)
== END 2020-10-23 18:00 | disposition home or self-care (01) ==
LOC: MTLAB 08:22
PROVIDERS: Family Provider Nurse Practitioner; PCP Nurse Practitioner; Referring Provider Internal Medicine Cardiovascular Disease; Visit Provider Internal Medicine Cardiovascular Disease
DX: I48.0 Paroxysmal atrial fibrillation (principal); Z79.01 Long term (current) use of anticoagulants
CPT/HCPCS: 36415; 71046; 72100; 80053; 85610

== ENCOUNTER → 2020-11-01 08:37 | Outpatient (CLI) | payer MEDICARE, OTHER, SELFPAY ==
[2020-09-05 08:47] VITALS: BMI 31.6
--- NOTE | 2020-11-01 08:45 | US_ITS ---
STUDY: ABDOMINAL ULTRASOUND REASON FOR EXAM: Female, 80 years old. ABD PAIN TECHNIQUE: Transabdominal ultrasound was performed with real-time and static ramos scale imaging. TECHNICAL QUALITY: Adequate. COMPARISON: None. FINDINGS: Liver: The liver measures 14.3 cm. There is normal echogenicity of the liver. The bile ducts are within normal limits. There is hepatic color flow. The direction of portal flow is hepatopetal. There is no demonstrated mass lesion. Portal vein measurement: Gallbladder: Normal distended gallbladder. The gallbladder wall measures 2 mm. There is a negative sonographic Salgado''s sign. There is no pericholecystic fluid. There are no gallstones. Common Bile Duct (C.B.D.): The common bile duct measures 5 mm. Pancreas: Normal size of the head, body and tail of the pancreas. There is normal echogenicity of the pancreas. There is no demonstrated pancreatic mass or cyst. Spleen: Normal size of the spleen. The spleen measures 8.4 cm x 3.7 cm x 3.3 cm. Right Kidney: Normal size of the right kidney. The right kidney measures 8.8 cm x 5.1 cm x 4.2 cm. There is thinning of the renal cortex. The right cortex measures 0.8 cm. There is no demonstrated renal mass or cyst. There is no right hydronephrosis. Left Kidney: Normal size of the left kidney. The left kidney measures 8.8 cm x 5.4 cm x 5.3 cm. There is thinning of the renal cortex. The left cortex measures 0.9 cm. There is no demonstrated renal mass or cyst. There is no left hydronephrosis. Aorta: Unremarkable I.V.C.: The IVC is patent. There is no ascites. US/Abdomen Complete IMPRESSION: Normal abdominal ultrasound examination. Electronically Signed: Henry Jones MD at 13:45 EDT , Service support ,
== END ==
PROVIDERS: PCP Nurse Practitioner; Referring Provider Nurse Practitioner; Visit Provider Nurse Practitioner
DX: R10.9 Unspecified abdominal pain (principal)
CPT/HCPCS: 76700

== ENCOUNTER → 2020-11-05 12:14 | Outpatient (CLI) | payer MEDICARE, OTHER, SELFPAY ==
[2019-09-05 08:26] VITALS: BMI 30.2
[2020-09-05 08:47] VITALS: BMI 31.6
--- NOTE | 2020-11-05 12:17 | BI_ITS ---
MAMMOGRAPHY - BILATERAL SCREENING REASON FOR EXAM: Female, 80 years old. Routine annual screening examination. PERTINENT HISTORY: Non-contributory. TECHNIQUE: Digital bilateral breast luis alberto (3D mammographic acquisition) in the CC and MLO projections. 2-D mediolateral oblique (MLO) and craniocaudad (CC) views of both breasts were obtained. CAD: Full Field Digital Mammography with Computer Added Detection was performed. COMPARISON: Comparison is made with prior study dated 07/18/2019 and 07/08/2018. FINDINGS: Breast Composition: There are scattered areas of fibroglandular density. There are no dominant masses or suspicious calcifications. No other significant abnormalities are identified. There has been no significant change since the prior study. BI/SCRN MAMM (CAD)W/LUIS ALBERTO BILAT IMPRESSION: Stable bilateral screening mammogram. Yearly follow-up mammogram recommended. (A) ASSESSMENT CATEGORY: BIRADS Category 1: Negative. A letter regarding these results will be sent to the patient by the facility within 30 days. Approximately 10% of breast cancers are not detected by mammography. A normal mammogram should not delay biopsy of a clinically suspicious abnormality. [id number] Electronically Signed: Henry Jones MD at 13:31 EDT , Service support ,
--- NOTE | 2020-11-05 12:46 | ECHOD_ITS ---
Version 2 Reason For Study: A. fib/flutter Procedure This was a 2D Doppler, Color Flow transthoracic echocardiogram. Exam performed in department. Left Ventricle Normal LV size. Left ventricular systolic function is lower limits of normal. The estimated ejection fraction is 50 %. Mid-anteroseptal : Hypokinetic. Right Ventricle Normal RV size. Normal systolic function. Atria The left atrium is moderately enlarged. Normal right atrium. Mitral Valve There is mild mitral annular calcification. Mitral valve doming/Hockey Sticking. Doming of the anterior MV leaflet. Mean transmitral valve gradient 3.5 mmHg. Status post mitral valve repair with annuloplasty ring. Tricuspid Valve Normal tricuspid valve. Aortic Valve Trisinus/trileaflet aortic valve. Trivial aortic valve insufficiency. Pulmonic Valve Normal pulmonic valve. Great Vessels Normal aortic root. The pulmonary artery is normal size. Inferior vena cava collapse with respiration. Pericardium/Pleural No pericardial effusion. MMode/2D Measurements & Calculations LVIDd: 4.6 cm IVSd: 1.1 cm Ao root diam: 3.0 cm LVIDs: 3.4 cm LVPWd: 1.2 cm RVDd: 3.0 cm FS: 26.7 % LAV(MOD-bp): 93.4 ml EDV(MOD-sp4): 104.0 ml EDV(MOD-sp2): 101.0 ml LAV(MOD-bp) Indexed: 50.6 ml/m2 ESV(MOD-sp4): 50.8 ml EF(MOD-sp2): 56.4 % LAV(MOD-sp2): 76.6 ml EF(MOD-sp4): 51.2 % LAV(MOD-sp4): 97.9 ml SV(MOD-sp4): 53.3 ml SV(MOD-sp2): 56.9 ml LA A4 area: 28.9 cm2 LA dimension(2D): 3.9 cm RA A4 area: 18.3 cm2 Doppler Measurements & Calculations MV E max jaret: 129.5 cm/sec Lat Peak E' Jaret: 5.1 cm/sec Med Peak E' Jaret: 4.4 cm/sec MV A max jaret: 127.3 cm/sec E/E' lat: 25.4 E/E' med: 29.5 MV E/A: 1.0 MV V2 max: 147.0 cm/sec MV P1/2t max jaret: 111.8 cm/sec Ao V2 max: 121.3 cm/sec MV max P.6 mmHg MV P1/2t: 192.7 msec Ao max P.9 mmHg MV V2 mean: 89.2 cm/sec MV dec slope: 170.0 cm/sec2 MV mean P.5 mmHg MV V2 VTI: 48.6 cm MVA(P1/2t): 1.1 cm2 LV V1 max: 90.8 cm/sec PA V2 max: 63.0 cm/sec TR max jaret: 279.0 cm/sec LV V1 max P.3 mmHg TR max P.2 mmHg ECHO/Echo Complete Interpretation Summary Normal LV size. Left ventricular systolic function is lower limits of normal. The estimated ejection fraction is 50 %. Mid-anteroseptal : Hypokinetic Doming of the anterior MV leaflet. Mitral valve doming/Hockey Sticking The left atrium is moderately enlarged. Mean transmitral valve gradient 3.5 mmHg. Status post mitral valve repair with annuloplasty ring. The global longitudinal strain is mildly abnormal. The global longitudinal stra in = -16.3% (abnormal). Compared to prior study, there is no significant change. Ordering Physician: Amilcar Bernardo Referring Physician: Sarai Mauricio Performed By: Marielle Pacheco RDCS
== END ==
PROVIDERS: PCP Nurse Practitioner; Referring Provider Nurse Practitioner; Visit Provider Nurse Practitioner
DX: Z12.31 Encounter for screening mammogram for malignant neoplasm of breast (principal); I48.0 Paroxysmal atrial fibrillation
CPT/HCPCS: 77063; 77067; 93306

== ENCOUNTER 2020-11-15 11:28 | Outpatient (RCR) | payer MEDICARE, OTHER, SELFPAY ==
[2020-09-05 08:47] VITALS: BMI 31.6
[2020-11-15 15:31] LABS: Prothrombin Time (Protime)PT. 30.2 SECONDS (11.7-14.9)
== END 2020-11-15 18:00 | disposition home or self-care (01) ==
LOC: MTLAB 11:28
PROVIDERS: Family Provider Nurse Practitioner; PCP Nurse Practitioner; Referring Provider Internal Medicine Cardiovascular Disease; Visit Provider Internal Medicine Cardiovascular Disease
DX: I48.0 Paroxysmal atrial fibrillation (principal); Z79.01 Long term (current) use of anticoagulants
CPT/HCPCS: 36415; 85610

== ENCOUNTER 2020-12-17 10:07 | Outpatient (RCR) | payer MEDICARE, OTHER, SELFPAY ==
[2020-09-05 08:47] VITALS: BMI 31.6
[2020-12-17 12:43] LABS: AST(SGOT) 22 U/L (15-37); Alanine Aminotransfer ALT/SGPT 26 U/L (13-56); Albumin, Serum 3.7 g/dL (3.2-5.0); Alkaline Phosphatase 68 U/L (45-117); Bilirubin, Direct 0.16 mg/dL (0.00-0.30); Cholesterol 179 mg/dL (200); Globulin 3.2 g/dL (2.2-4.2); High Density Lipoprotein 74 mg/dL; Protein, Total 6.9 g/dL (6.4-8.2); Triglycerides 91 mg/dL; Very Low Density Lipoprotein 18 mg/dL (5-40)
[2020-12-17 12:49] LABS: Prothrombin Time (Protime)PT. 30.6 SECONDS (11.7-14.9)
[2020-12-17 12:51] LABS: Anion Gap 3 (5-15); BUN 23 mg/dL (7-18); BUN/Creat Ratio 21.9 RATIO (10-20); Calcium,Total 9.3 mg/dL (8.5-10.1); Chloride 105 mmol/L (98-107); Creatinine, Serum 1.05 mg/dL (0.55-1.02); EST Glomerular Filtration Rate 53 mL/min (>60); Est Glom Filt Rate - Afr Amer 65 mL/min (>60); Glucose 95 mg/dL (74-106); Potassium 3.9 mmol/L (3.5-5.1); Sodium Level 140 mmol/L (136-145)
== END 2020-12-17 18:00 | disposition home or self-care (01) ==
LOC: MTLAB 10:07
PROVIDERS: Physician Assistant Medical; Family Provider Nurse Practitioner; PCP Nurse Practitioner; Referring Provider Internal Medicine Cardiovascular Disease; Visit Provider Internal Medicine Cardiovascular Disease
DX: I48.0 Paroxysmal atrial fibrillation (principal); Z79.01 Long term (current) use of anticoagulants; I34.0 Nonrheumatic mitral (valve) insufficiency; I34.2 Nonrheumatic mitral (valve) stenosis; I42.8 Other cardiomyopathies; I10 Essential (primary) hypertension; E78.5 Hyperlipidemia, unspecified; Z98.890 Other specified postprocedural states
CPT/HCPCS: 36415; 80048; 80061; 80076; 85610

== ENCOUNTER 2021-01-17 09:39 | Outpatient (RCR) | payer MEDICARE, OTHER, SELFPAY ==
[2020-09-05 08:47] VITALS: BMI 31.6
[2021-01-17 12:33] LABS: International Normalized Ratio 2.6; Prothrombin Time (Protime)PT. 27.3 SECONDS (11.7-14.9)
== END 2021-01-17 18:00 | disposition home or self-care (01) ==
LOC: MTLAB 09:39
PROVIDERS: Family Provider Nurse Practitioner; PCP Nurse Practitioner; Referring Provider Internal Medicine Cardiovascular Disease; Visit Provider Internal Medicine Cardiovascular Disease
DX: I48.0 Paroxysmal atrial fibrillation (principal); Z79.01 Long term (current) use of anticoagulants
CPT/HCPCS: 36415; 85610

== ENCOUNTER 2021-02-27 13:18 | Outpatient (RCR) | payer MEDICARE, OTHER, SELFPAY ==
[2020-09-05 08:47] VITALS: BMI 31.6
[2021-02-07 15:14] LABS: International Normalized Ratio 3.5; Prothrombin Time (Protime)PT. 33.9 SECONDS (11.7-14.9)
[2021-02-07 15:30] LABS: Thyroid Stim Hormone (TSH) 2.57 uIU/mL (0.358-3.74)
[2021-02-07 16:15] LABS: Vitamin B12 502 pg/mL (211-911); Vitamin D,25 Hydroxy 38.6 ng/mL
[2021-02-14 12:42] LABS: Prothrombin Time (Protime)PT. 30.4 SECONDS (11.7-14.9)
[2021-02-27 15:46] LABS: International Normalized Ratio 2.6; Prothrombin Time (Protime)PT. 27.4 SECONDS (11.7-14.9)
== END 2021-02-27 18:00 | disposition home or self-care (01) ==
LOC: MTLAB 13:18
PROVIDERS: Family Provider Nurse Practitioner; PCP Nurse Practitioner; Referring Provider Internal Medicine Cardiovascular Disease; Visit Provider Internal Medicine Cardiovascular Disease
DX: I48.0 Paroxysmal atrial fibrillation (principal); Z79.01 Long term (current) use of anticoagulants; E03.9 Hypothyroidism, unspecified; E55.9 Vitamin D deficiency, unspecified
CPT/HCPCS: 36415; 82306; 82607; 82746; 84443; 85610

== ENCOUNTER 2021-03-28 09:29 | Outpatient (RCR) | payer MEDICARE, OTHER, SELFPAY ==
[2020-09-05 08:47] VITALS: BMI 31.6
[2021-03-28 12:36] LABS: International Normalized Ratio 2.6; Prothrombin Time (Protime)PT. 26.9 SECONDS (11.7-14.9)
== END 2021-03-28 18:00 | disposition home or self-care (01) ==
LOC: MTLAB 09:29
PROVIDERS: Family Provider Nurse Practitioner; PCP Nurse Practitioner; Referring Provider Internal Medicine Cardiovascular Disease; Visit Provider Internal Medicine Cardiovascular Disease
DX: I48.0 Paroxysmal atrial fibrillation (principal); Z79.01 Long term (current) use of anticoagulants
CPT/HCPCS: 36415; 85610

== ENCOUNTER 2021-05-02 09:39 | Outpatient (RCR) | payer MEDICARE, OTHER, SELFPAY ==
[2021-04-09 01:33] VITALS: BMI 31.6
[2021-05-02 12:17] LABS: International Normalized Ratio 2.7
== END 2021-05-02 18:00 | disposition home or self-care (01) ==
LOC: MTLAB 09:39
PROVIDERS: Family Provider Nurse Practitioner; PCP Nurse Practitioner; Referring Provider Internal Medicine Cardiovascular Disease; Visit Provider Internal Medicine Cardiovascular Disease
DX: I48.0 Paroxysmal atrial fibrillation (principal); Z79.01 Long term (current) use of anticoagulants
CPT/HCPCS: 36415; 85610

== ENCOUNTER 2021-06-06 09:57 | Outpatient (RCR) | payer MEDICARE, OTHER, SELFPAY ==
[2021-05-09 02:09] VITALS: BMI 31.6
== END 2021-06-08 18:00 | disposition home or self-care (01) ==
LOC: MTLAB 09:57
PROVIDERS: Family Provider Nurse Practitioner; PCP Nurse Practitioner; Referring Provider Internal Medicine Cardiovascular Disease; Visit Provider Internal Medicine Cardiovascular Disease
DX: I48.0 Paroxysmal atrial fibrillation (principal); Z79.01 Long term (current) use of anticoagulants
CPT/HCPCS: 36415; 85610

== ENCOUNTER 2021-07-24 08:50 | Outpatient (RCR) | payer MEDICARE, OTHER, SELFPAY ==
[2021-06-08 20:46] VITALS: BMI 31.6
[2021-07-10 10:47] LABS: International Normalized Ratio 1.9; Prothrombin Time (Protime)PT. 21.3 SECONDS (11.7-14.9)
[2021-07-10 11:07] LABS: AST(SGOT) 19 U/L (15-37); Alanine Aminotransfer ALT/SGPT 28 U/L (13-56); Albumin, Serum 3.5 g/dL (3.2-5.0); Alkaline Phosphatase 68 U/L (45-117); Bilirubin, Direct 0.14 mg/dL (0.00-0.30); Cholesterol 183 mg/dL (200); Globulin 3.3 g/dL (2.2-4.2); High Density Lipoprotein 70 mg/dL; Protein, Total 6.8 g/dL (6.4-8.2); Triglycerides 95 mg/dL; Very Low Density Lipoprotein 19 mg/dL (5-40)
[2021-07-24 10:02] LABS: International Normalized Ratio 2.3; Prothrombin Time (Protime)PT. 24.3 SECONDS (11.7-14.9)
== END 2021-08-09 18:00 | disposition home or self-care (01) ==
LOC: MTLAB 08:50
PROVIDERS: Family Provider Nurse Practitioner; PCP Nurse Practitioner; Referring Provider Internal Medicine Cardiovascular Disease; Visit Provider Internal Medicine Cardiovascular Disease
DX: I48.0 Paroxysmal atrial fibrillation (principal); Z79.01 Long term (current) use of anticoagulants; E03.9 Hypothyroidism, unspecified; E55.9 Vitamin D deficiency, unspecified
CPT/HCPCS: 36415; 80061; 80076; 85610

== ENCOUNTER → 2021-07-30 10:41 | Outpatient (CLI) | payer MEDICARE, OTHER, SELFPAY ==
[2021-07-30 12:13] LABS: Absolute Lymphocyte Count 2.32 X10^3/uL (0.83-4.51); Absolute Neutrophil Count 3.2 X10^3/uL (2.0-7.7); Basophil# 0.05 X10^3/uL; Basophil% 0.8 % (0-1); Eosinophil# 0.24 X10^3/uL; Eosinophils% 3.8 % (0-5); Hematocrit 42.1 % (37-47); Hemoglobin 13.6 g/dL (12.0-15.0); Lymphocyte # 2.32 X10^3/ul (0.83-4.51); Lymphocyte % 37.1 % (19-41); Mean Corp Hgb Conc 32.3 g/dL (32-36); Mean Corpuscular Hgb 30.9 pg (27.0-32.0); Mean Corpuscular Volume 95.7 fL (81-99); Mean Platelet Vol. 11.2 fl (6.2-12.0); Monocyte# 0.46 X10^3/uL; Monocyte% 7.3 % (0-10); NRBC Flagged by Analyzer 0 % (0-5); Neutrophil # 3.18 X10^3/uL (2.7-7.7); Neutrophil % 50.8 % (47-70); Platelet Count 242 K/mm3 (150-450); RBC Distribution Width CV 13.8 % (11.6-14.6); RBC Distribution Width SD 49.1 fl (35.1-43.9); White Blood Count 6.3 K/mm3 (4.4-11.0)
[2021-07-30 12:36] LABS: Vitamin B12 469 pg/mL (211-911)
[2021-07-30 13:13] LABS: ALB/GLOB Ratio 1.1 RATIO (0.9-2.4); AST(SGOT) 16 U/L (15-37); Alanine Aminotransfer ALT/SGPT 28 U/L (13-56); Albumin, Serum 3.7 g/dL (3.2-5.0); Alkaline Phosphatase 61 U/L (45-117); Anion Gap 7 (5-15); BUN 20 mg/dL (7-18); BUN/Creat Ratio 19.2 RATIO (10-20); Calcium,Total 9.1 mg/dL (8.5-10.1); Chloride 105 mmol/L (98-107); Cholesterol 173 mg/dL (200); Creatinine, Serum 1.04 mg/dL (0.55-1.02); EST Glomerular Filtration Rate 54 mL/min (>60); Est Glom Filt Rate - Afr Amer 65 mL/min (>60); Globulin 3.4 g/dL (2.2-4.2); Glucose 90 mg/dL (74-106); High Density Lipoprotein 73 mg/dL; Potassium 4.8 mmol/L (3.5-5.1); Protein, Total 7.1 g/dL (6.4-8.2); Sodium Level 142 mmol/L (136-145); Triglycerides 104 mg/dL; Very Low Density Lipoprotein 21 mg/dL (5-40)
== END ==
PROVIDERS: PCP Nurse Practitioner; Referring Provider Nurse Practitioner; Visit Provider Nurse Practitioner
DX: E78.00 Pure hypercholesterolemia, unspecified (principal); D64.9 Anemia, unspecified; E53.8 Deficiency of other specified B group vitamins; E03.9 Hypothyroidism, unspecified; I11.9 Hypertensive heart disease without heart failure
CPT/HCPCS: 36415; 80053; 80061; 82607; 82746; 84443; 85025

== ENCOUNTER 2021-08-28 09:36 | Outpatient (RCR) | payer MEDICARE, OTHER, SELFPAY ==
[2021-08-10 19:42] VITALS: BMI 31.6
[2021-08-28 12:35] LABS: International Normalized Ratio 2.9; Prothrombin Time (Protime)PT. 29.8 SECONDS (11.7-14.9)
== END 2021-09-08 18:00 | disposition home or self-care (01) ==
LOC: MTLAB 09:36
PROVIDERS: Family Provider Nurse Practitioner; PCP Nurse Practitioner; Referring Provider Internal Medicine Cardiovascular Disease; Visit Provider Internal Medicine Cardiovascular Disease
DX: I48.0 Paroxysmal atrial fibrillation (principal); Z79.01 Long term (current) use of anticoagulants
CPT/HCPCS: 36415; 85610

== ENCOUNTER 2021-09-26 09:36 | Outpatient (RCR) | payer MEDICARE, OTHER, SELFPAY ==
[2021-09-09 01:58] VITALS: BMI 31.6
[2021-09-26 12:03] LABS: International Normalized Ratio 2.6; Prothrombin Time (Protime)PT. 27.1 SECONDS (11.7-14.9)
== END 2021-11-06 18:00 | disposition home or self-care (01) ==
LOC: MTLAB 09:36
PROVIDERS: Family Provider Nurse Practitioner; PCP Nurse Practitioner; Referring Provider Internal Medicine Cardiovascular Disease; Visit Provider Internal Medicine Cardiovascular Disease
DX: I48.0 Paroxysmal atrial fibrillation (principal); Z79.01 Long term (current) use of anticoagulants
CPT/HCPCS: 36415; 85610

== ENCOUNTER 2021-11-06 09:49 | Outpatient (CLI) | payer MEDICARE, OTHER, SELFPAY ==
--- NOTE | 2021-11-06 09:54 | CDU_ITS ---
Reason For Study: Left carotid bruit Rt. Velocities/BP Lt. Velocities/BP Prox CCA 82.6/22.6 cm/sec. Prox CCA 72.8/16.8 cm/sec. Mid CCA 89.1/21.3 cm/sec. Mid CCA 54.1/14.6 cm/sec. Dist CCA 74.7/17.3 cm/sec. Dist CCA 59.6/14.6 cm/sec. Prox ICA 66.9/16 cm/sec. Prox ICA 80.2/17.6 cm/sec. Mid ICA 70.8/22.6 cm/sec. Mid ICA 64.2/23.7 cm/sec. Dist ICA 112.5/25.2 cm/sec. Dist ICA 119.3/35.3 cm/sec. Rt. ICA/CCA = 1.36. Lt. ICA/CCA = 2.00. Prox ECA 96.9/12.1 cm/sec. Prox ECA 94.9/13.9 cm/sec. Rt. Vert. 38.8/8 cm/sec. Lt. Vert. 41.9/11.6 cm/sec. Right Extracranial There is homogeneous, smooth atherosclerotic plaque noted in the right common carotid artery. There is heterogeneous, irregular atherosclerotic plaque noted in the right internal carotid artery. The right internal carotid artery is very tortuous. There is heterogeneous, irregular atherosclerotic plaque noted in the right external carotid artery. Antegrade flow is noted in the right vertebral artery. Left Extracranial There is homogeneous, smooth atherosclerotic plaque noted in the left common carotid artery. There is heterogeneous, irregular atherosclerotic plaque noted in the left internal carotid artery. The left internal carotid artery is very tortuous. There is heterogeneous, irregular atherosclerotic plaque noted in the left external carotid artery. Antegrade flow is noted in the left vertebral artery. Procedure Carotid Duplex [id number]. This is a Carotid Duplex examination using B-mode, color flow and specral Doppler. Exam performed in department. VL/Carotid Duplex Ultrasound Interpretation Summary Mild (<50%) stenosis right extracranial internal carotid. Mild (<50%) stenosis left extracranial internal carotid. Flow within the vertebral arteries is antegrade bilaterally. Ordering Physician: Jennifer Goodwin Referring Physician: Valentin Ordaz M.D. Performed By: Shannon Murillo RVT
--- NOTE | 2021-11-06 10:32 | BI_ITS ---
MAMMOGRAPHY - BILATERAL SCREENING REASON FOR EXAM: Female, 81 years old. Routine annual screening examination. PERTINENT HISTORY: Non-contributory. TECHNIQUE: Digital bilateral breast luis alberto (3D mammographic acquisition) in the CC and MLO projections. 2-D mediolateral oblique (MLO) and craniocaudad (CC) views of both breasts were obtained. CAD: Full Field Digital Mammography with Computer Added Detection was performed. COMPARISON: Comparison is made with prior study dated 11/05/2020 and 07/18/2019. FINDINGS: Breast Composition: There are scattered areas of fibroglandular density. There are no dominant masses or suspicious calcifications. No other significant abnormalities are identified. There has been no significant change since the prior study. BI/SCRN MAMM (CAD)W/LUIS ALBERTO BILAT IMPRESSION: Stable bilateral screening mammogram. Yearly follow-up mammogram recommended. (A) ASSESSMENT CATEGORY: BIRADS Category 1: Negative. A letter regarding these results will be sent to the patient by the facility within 30 days. Approximately 10% of breast cancers are not detected by mammography. A normal mammogram should not delay biopsy of a clinically suspicious abnormality. [id number] Electronically Signed: Henry Jones MD at 11:16 EDT ,
== END 2021-11-06 23:59 | disposition home or self-care (01) ==
PROVIDERS: PCP Nurse Practitioner; Referring Provider Physician Assistant Medical; Visit Provider Nurse Practitioner
DX: Z12.31 Encounter for screening mammogram for malignant neoplasm of breast (principal); R09.89 Other specified symptoms and signs involving the circulatory and respiratory systems
CPT/HCPCS: 77063; 77067; 93880

== ENCOUNTER 2021-11-28 10:07 | Outpatient (RCR) | payer MEDICARE, OTHER, SELFPAY ==
[2021-11-07 03:15] VITALS: BMI 31.6
[2021-11-28 12:49] LABS: International Normalized Ratio 2.6; Prothrombin Time (Protime)PT. 27.7 SECONDS (11.7-14.9)
== END 2021-11-28 18:00 | disposition home or self-care (01) ==
LOC: MTLAB 10:07
PROVIDERS: Family Provider Nurse Practitioner; PCP Nurse Practitioner; Referring Provider Internal Medicine Cardiovascular Disease; Visit Provider Internal Medicine Cardiovascular Disease
DX: I48.0 Paroxysmal atrial fibrillation (principal); Z79.01 Long term (current) use of anticoagulants
CPT/HCPCS: 36415; 85610

== ENCOUNTER 2021-12-30 10:39 | Outpatient (RCR) | payer MEDICARE, OTHER, SELFPAY ==
[2021-12-07 05:20] VITALS: BMI 31.6
[2021-12-09 10:15] LABS: International Normalized Ratio 1.7; Prothrombin Time (Protime)PT. 19.2 SECONDS (11.7-14.9)
[2021-12-16 12:25] LABS: International Normalized Ratio 2.2; Prothrombin Time (Protime)PT. 23.8 SECONDS (11.7-14.9)
[2021-12-30 12:44] LABS: International Normalized Ratio 1.5; Prothrombin Time (Protime)PT. 17.5 SECONDS (11.7-14.9)
== END 2021-12-30 18:00 | disposition home or self-care (01) ==
LOC: MTLAB 10:39
PROVIDERS: Family Provider Nurse Practitioner; PCP Nurse Practitioner; Referring Provider Internal Medicine Cardiovascular Disease; Visit Provider Internal Medicine Cardiovascular Disease
DX: I48.0 Paroxysmal atrial fibrillation (principal); Z79.01 Long term (current) use of anticoagulants
CPT/HCPCS: 36415; 85610

== ENCOUNTER → 2022-01-06 | Outpatient (CLI) | payer MEDICARE, OTHER, SELFPAY ==
--- NOTE | 2022-01-06 09:22 | BD_ITS ---
STUDY: DUAL ENERGY X-RAY ABSORPTIOMETRY / DXA REASON FOR EXAM: Female, 81 years old. M85.89. Patient is postmenopausal. TECHNIQUE: Bone Mineral Density (BMD) measurements of lumbar spine and bilateral hips were obtained. COMPARISON: Comparison is made with prior study 01/04/2020. FINDINGS: Lumbar Spine (L1-L4): g/cm2 (1.144) / T-score (0.8) / Z-score (3.6) Findings are suggestive of normal bone density with a low fracture risk. Left Femur Total: g/cm2 (0.880) / T-score (-0.5) / Z-score (1.7) Left Femoral Neck: g/cm2 (0.799) / T-score (-0.5) / Z-score (2.0) Right Femur Total: g/cm2 (0.828) / T-score (-0.9) / Z-score (1.3) Right Femoral Neck: g/cm2 (0.826) / T-score (-0.2) / Z-score (2.2) The T-Scores on the most recent prior examination were: Lumbar Spine (L1-L4): There has been improvement of bone density since the previous examination. Left Femur Total: which represents a worsening of 0.5%. Right Femur Total: which represents a worsening of 0.7%. BD/Dexa Bone Density Study IMPRESSION: The patient is considered normal as outlined below according to World Kirill Organization (WHO) criteria with a low fracture risk. There has been worsening of bone density since the previous examination. Reference Information: The T-score is the number of standard deviations above or below the standard which is normal for young adults at their peak bone mineral density. The World Health Organization (WHO) interprets the T-scores as follows: Above -1 Normal bone density Between -1 and -2.5 Osteopenia Equal to / or below -2.5 Osteoporosis As a practical clinical guideline, osteopenia may be graded as follows: Mild -1 through -1.5 Moderate -1.6 through -2.0 Severe -2.1 through -2.4 The Z-score is the number of standard deviations above or below age-matched controls. A Z-score of less than -1.5 would be considered abnormal. References: 1. NIH Osteoporosis and Related Bone Diseases www osteo.org 2. International Society for Clinical Densitometry www iscd.org 3. National Osteoporosis Foundation www nof.org Electronically Signed: Henry Jones MD at 15:50 EDT ,
== END | disposition home or self-care (01) ==
LOC: OPBD 09:16
PROVIDERS: PCP Nurse Practitioner; Visit Provider Nurse Practitioner
DX: Z13.820 Encounter for screening for osteoporosis (principal); Z78.0 Asymptomatic menopausal state
CPT/HCPCS: 77080

== ENCOUNTER 2022-02-05 08:21 | Outpatient (RCR) | payer MEDICARE, OTHER, SELFPAY ==
[2022-01-06 21:57] VITALS: BMI 31.6
[2022-01-07 17:42] LABS: International Normalized Ratio 2.2; Prothrombin Time (Protime)PT. 24.3 SECONDS (11.7-14.9)
[2022-01-21 10:19] LABS: International Normalized Ratio 1.7; Prothrombin Time (Protime)PT. 19.7 SECONDS (11.7-14.9)
[2022-02-05 10:28] LABS: International Normalized Ratio 2.5
[2022-02-05 10:51] LABS: AST(SGOT) 21 U/L (15-37); Alanine Aminotransfer ALT/SGPT 28 U/L (13-56); Albumin, Serum 3.5 g/dL (3.2-5.0); Alkaline Phosphatase 68 U/L (45-117); Bilirubin, Direct 0.11 mg/dL (0.00-0.30); Cholesterol 180 mg/dL (200); Globulin 3.1 g/dL (2.2-4.2); High Density Lipoprotein 69 mg/dL; Protein, Total 6.6 g/dL (6.4-8.2); Thyroid Stim Hormone (TSH) 1.01 uIU/mL (0.358-3.74); Triglycerides 93 mg/dL; Very Low Density Lipoprotein 19 mg/dL (5-40)
== END 2022-02-05 16:00 | disposition home or self-care (01) ==
LOC: MTLAB 08:21
PROVIDERS: Physician Assistant Medical; Family Provider Nurse Practitioner; PCP Nurse Practitioner; Referring Provider Internal Medicine Cardiovascular Disease; Visit Provider Internal Medicine Cardiovascular Disease
DX: I48.0 Paroxysmal atrial fibrillation (principal); Z79.01 Long term (current) use of anticoagulants; E78.5 Hyperlipidemia, unspecified; R09.89 Other specified symptoms and signs involving the circulatory and respiratory systems; Z98.890 Other specified postprocedural states
CPT/HCPCS: 36415; 80061; 80076; 84443; 85610

== ENCOUNTER 2022-03-16 10:29 | Outpatient (RCR) | payer MEDICARE, OTHER, SELFPAY ==
[2022-02-06 10:00] VITALS: BMI 31.6
[2022-03-16 12:28] LABS: International Normalized Ratio 2.1; Prothrombin Time (Protime)PT. 23.3 SECONDS (11.7-14.9)
== END 2022-03-16 18:00 | disposition home or self-care (01) ==
LOC: MTLAB 10:29
PROVIDERS: Family Provider Nurse Practitioner; PCP Nurse Practitioner; Referring Provider Internal Medicine Cardiovascular Disease; Visit Provider Internal Medicine Cardiovascular Disease
DX: I48.0 Paroxysmal atrial fibrillation (principal); Z79.01 Long term (current) use of anticoagulants
CPT/HCPCS: 36415; 85610

== ENCOUNTER 2022-04-10 09:21 | Outpatient (RCR) | payer MEDICARE, OTHER, SELFPAY ==
[2022-04-09 01:08] VITALS: BMI 31.6
[2022-04-10 12:29] LABS: International Normalized Ratio 2.7; Prothrombin Time (Protime)PT. 28.1 SECONDS (11.7-14.9)
== END 2022-04-10 18:00 | disposition home or self-care (01) ==
LOC: MTLAB 09:21
PROVIDERS: Family Provider Nurse Practitioner; PCP Nurse Practitioner; Referring Provider Internal Medicine Cardiovascular Disease; Visit Provider Internal Medicine Cardiovascular Disease
DX: I48.0 Paroxysmal atrial fibrillation (principal); Z79.01 Long term (current) use of anticoagulants
CPT/HCPCS: 36415; 85610

== ENCOUNTER 2022-05-15 09:01 | Outpatient (RCR) | payer MEDICARE, OTHER, SELFPAY ==
[2022-05-09 04:07] VITALS: BMI 31.6
[2022-05-15 09:44] LABS: International Normalized Ratio 2.3; Prothrombin Time (Protime)PT. 24.8 SECONDS (11.7-14.9)
== END 2022-05-15 18:00 | disposition home or self-care (01) ==
LOC: MTLAB 09:01
PROVIDERS: Family Provider Nurse Practitioner; PCP Nurse Practitioner; Referring Provider Internal Medicine Cardiovascular Disease; Visit Provider Internal Medicine Cardiovascular Disease
DX: I48.0 Paroxysmal atrial fibrillation (principal); Z79.01 Long term (current) use of anticoagulants
CPT/HCPCS: 36415; 85610

== ENCOUNTER 2022-06-22 08:25 | Outpatient (RCR) | payer MEDICARE, OTHER, SELFPAY ==
[2022-06-09 10:38] VITALS: BMI 31.6
[2022-06-22 10:04] LABS: International Normalized Ratio 2.6; Prothrombin Time (Protime)PT. 27.9 SECONDS (11.7-14.9)
== END 2022-07-08 18:00 | disposition home or self-care (01) ==
LOC: MTLAB 08:25
PROVIDERS: Family Provider Nurse Practitioner; PCP Nurse Practitioner; Referring Provider Internal Medicine Cardiovascular Disease; Visit Provider Internal Medicine Cardiovascular Disease
DX: I48.0 Paroxysmal atrial fibrillation (principal); Z79.01 Long term (current) use of anticoagulants
CPT/HCPCS: 36415; 85610

== ENCOUNTER → 2022-07-17 | Outpatient (CLI) | payer MEDICARE, OTHER, SELFPAY ==
[2022-07-17 10:02] LABS: Absolute Lymphocyte Count 1.48 X10^3/uL (0.83-4.51); Absolute Neutrophil Count 5.3 X10^3/uL (2.0-7.7); Basophil# 0.06 X10^3/uL; Basophil% 0.7 % (0-1); Eosinophil# 0.24 X10^3/uL; Eosinophils% 2.9 % (0-5); Hematocrit 44.8 % (37-47); Hemoglobin 14.2 g/dL (12.0-15.0); Lymphocyte # 1.48 X10^3/ul (0.83-4.51); Lymphocyte % 18.2 % (19-41); Mean Corp Hgb Conc 31.7 g/dL (32-36); Mean Corpuscular Hgb 30.6 pg (27.0-32.0); Mean Corpuscular Volume 96.6 fL (81-99); Monocyte# 1.07 X10^3/uL; Monocyte% 13.1 % (0-10); NRBC Flagged by Analyzer 0 % (0-5); Neutrophil # 5.28 X10^3/uL (2.7-7.7); Neutrophil % 64.9 % (47-70); Platelet Count 220 K/mm3 (150-450); RBC Distribution Width CV 13.6 % (11.6-14.6); RBC Distribution Width SD 48.1 fl (35.1-43.9); Red Blood Count 4.64 M/mm3 (4.2-5.4); White Blood Count 8.2 K/mm3 (4.4-11.0)
[2022-07-17 10:36] LABS: ALB/GLOB Ratio 1.3 RATIO (0.9-2.4); AST(SGOT) 29 U/L (15-37); Alanine Aminotransfer ALT/SGPT 34 U/L (13-56); Albumin, Serum 3.9 g/dL (3.2-5.0); Alkaline Phosphatase 70 U/L (45-117); Anion Gap 4 (5-15); BUN 22 mg/dL (7-18); BUN/Creat Ratio 19.6 RATIO (10-20); Calcium,Total 9.1 mg/dL (8.5-10.1); Chloride 106 mmol/L (98-107); Creatinine, Serum 1.12 mg/dL (0.55-1.02); EST Glomerular Filtration Rate 49 mL/min (>60); Est Glom Filt Rate - Afr Amer 60 mL/min (>60); Globulin 2.9 g/dL (2.2-4.2); Glucose 102 mg/dL (74-106); Potassium 4.4 mmol/L (3.5-5.1); Protein, Total 6.8 g/dL (6.4-8.2); Sodium Level 142 mmol/L (136-145)
== END | disposition home or self-care (01) ==
LOC: MTLAB 08:57
PROVIDERS: PCP Nurse Practitioner Family; Referring Provider Nurse Practitioner Family; Visit Provider Nurse Practitioner Family
DX: I11.9 Hypertensive heart disease without heart failure (principal); E03.9 Hypothyroidism, unspecified; D64.9 Anemia, unspecified
CPT/HCPCS: 36415; 80053; 84443; 85025

== ENCOUNTER 2022-08-07 10:03 | Outpatient (RCR) | payer MEDICARE, OTHER, SELFPAY ==
[2022-07-09 02:34] VITALS: BMI 31.6
[2022-07-16 18:00] LABS: International Normalized Ratio 2.1; Prothrombin Time (Protime)PT. 23.3 SECONDS (11.7-14.9)
[2022-07-22 10:19] LABS: International Normalized Ratio 2.4; Prothrombin Time (Protime)PT. 25.7 SECONDS (11.7-14.9)
[2022-08-07 12:44] LABS: International Normalized Ratio 2.6; Prothrombin Time (Protime)PT. 27.8 SECONDS (11.7-14.9)
== END 2022-08-07 18:00 | disposition home or self-care (01) ==
LOC: MTLAB 10:03
PROVIDERS: Family Provider Nurse Practitioner; PCP Nurse Practitioner; Referring Provider Internal Medicine Cardiovascular Disease; Visit Provider Internal Medicine Cardiovascular Disease
DX: I48.0 Paroxysmal atrial fibrillation (principal); Z79.01 Long term (current) use of anticoagulants
CPT/HCPCS: 36415; 85610

== ENCOUNTER 2022-08-24 09:15 | Outpatient (RCR) | payer MEDICARE, OTHER, SELFPAY ==
[2022-08-09 06:38] VITALS: BMI 31.6
[2022-08-17 10:19] LABS: International Normalized Ratio 2.2
[2022-08-24 10:07] LABS: International Normalized Ratio 2.2
[2022-08-24 10:32] LABS: AST(SGOT) 15 U/L (15-37); Alanine Aminotransfer ALT/SGPT 21 U/L (13-56); Albumin, Serum 3.1 g/dL (3.2-5.0); Alkaline Phosphatase 61 U/L (45-117); Bilirubin, Direct 0.14 mg/dL (0.00-0.30); Cholesterol 177 mg/dL (200); High Density Lipoprotein 58 mg/dL; Protein, Total 6.1 g/dL (6.4-8.2); Triglycerides 114 mg/dL; Very Low Density Lipoprotein 23 mg/dL (5-40)
== END 2022-08-24 11:15 | disposition home or self-care (01) ==
LOC: MTLAB 09:15
PROVIDERS: Physician Assistant Medical; Family Provider Nurse Practitioner; PCP Nurse Practitioner Family; Referring Provider Internal Medicine Cardiovascular Disease; Visit Provider Internal Medicine Cardiovascular Disease
DX: I48.0 Paroxysmal atrial fibrillation (principal); Z79.01 Long term (current) use of anticoagulants; E78.00 Pure hypercholesterolemia, unspecified
CPT/HCPCS: 36415; 80061; 80076; 85610

== ENCOUNTER → 2022-09-03 | Outpatient (CLI) | payer MEDICARE, OTHER, SELFPAY ==
--- NOTE | 2022-09-03 08:56 | RAD_ITS ---
STUDY: X-RAY CHEST REASON FOR EXAM: Female, 82 years old. Fever and cough TECHNIQUE: PA and lateral views of the chest. COMPARISON: 08/13/2022 FINDINGS: Lungs are mildly hyperexpanded with chronic interstitial changes. Previously noted opacifications in both upper lung latif have cleared. No organized infiltrate or effusion. There is no demonstrated pleural abnormality. Sternal cerclage wires and vascular clips are present from a prior sternotomy and coronary artery bypass graft procedure (CABG). Normal mediastinum and peng. Normal visualized pulmonary arteries. Normal visualized aortic arch and descending thoracic aorta. Normal visualized thoracic spine. Normal visualized ribs, clavicles, and shoulders. There is no demonstrated abnormality of the visualized soft tissue structures of the upper abdomen. RAD/Chest PA and Lateral IMPRESSION: Mildly hyperexpanded lungs without a superimposed acute pulmonary process. Electronically Signed: Nasir Kline MD at 10:57 EST ,
== END | disposition home or self-care (01) ==
LOC: MTRAD 08:55
PROVIDERS: PCP Nurse Practitioner Family; Referring Provider Internal Medicine Pulmonary Disease; Visit Provider Internal Medicine Pulmonary Disease
DX: R06.00 Dyspnea, unspecified (principal); R05.9 Cough, unspecified
CPT/HCPCS: 71046

== ENCOUNTER 2022-10-01 08:32 | Outpatient (RCR) | payer MEDICARE, OTHER, SELFPAY ==
[2022-09-09 07:43] VITALS: BMI 31.6
[2022-09-18 10:11] LABS: International Normalized Ratio 1.6; Prothrombin Time (Protime)PT. 18.7 SECONDS (11.7-14.9)
[2022-09-25 10:30] LABS: International Normalized Ratio 1.2; Prothrombin Time (Protime)PT. 15.2 SECONDS (11.7-14.9)
[2022-10-01 10:45] LABS: International Normalized Ratio 1.6; Prothrombin Time (Protime)PT. 18.9 SECONDS (11.7-14.9)
== END 2022-10-01 18:00 | disposition home or self-care (01) ==
LOC: MTLAB 08:32
PROVIDERS: Family Provider Nurse Practitioner; PCP Nurse Practitioner Family; Referring Provider Internal Medicine Cardiovascular Disease; Visit Provider Internal Medicine Cardiovascular Disease
DX: I48.0 Paroxysmal atrial fibrillation (principal); Z79.01 Long term (current) use of anticoagulants
CPT/HCPCS: 36415; 85610

== ENCOUNTER 2022-10-20 08:14 | Outpatient (RCR) | payer MEDICARE, OTHER, SELFPAY ==
[2022-10-06 23:24] VITALS: BMI 31.6
[2022-10-08 12:37] LABS: International Normalized Ratio 2.4; Prothrombin Time (Protime)PT. 25.6 SECONDS (11.7-14.9)
[2022-10-20 09:55] LABS: International Normalized Ratio 2.6; Prothrombin Time (Protime)PT. 27.6 SECONDS (11.7-14.9)
== END 2022-11-06 21:02 | disposition home or self-care (01) ==
LOC: MTLAB 08:14
PROVIDERS: Family Provider Nurse Practitioner; PCP Nurse Practitioner Family; Referring Provider Internal Medicine Cardiovascular Disease; Visit Provider Internal Medicine Cardiovascular Disease
DX: I48.0 Paroxysmal atrial fibrillation (principal); Z79.01 Long term (current) use of anticoagulants
CPT/HCPCS: 36415; 85610

== ENCOUNTER → 2022-11-10 | Outpatient (CLI) | payer MEDICARE, OTHER, SELFPAY ==
--- NOTE | 2022-11-10 13:20 | BI_ITS ---
MAMMOGRAPHY - BILATERAL SCREENING REASON FOR EXAM: Female, 82 years old. Routine annual screening examination. PERTINENT HISTORY: Non-contributory. TECHNIQUE: Digital bilateral breast luis alberto (3D mammographic acquisition) in the CC and MLO projections. 2-D mediolateral oblique (MLO) and craniocaudad (CC) views of both breasts were obtained. CAD: Full Field Digital Mammography with Computer Added Detection was performed. COMPARISON: Comparison is made with prior study dated November 06, 2021 and November 05, 2020. FINDINGS: Breast Composition: There are scattered areas of fibroglandular density. There are no dominant masses or suspicious calcifications. No other significant abnormalities are identified. There has been no significant change since the prior study. BI/SCRN MAMM (CAD)W/LUIS ALBERTO BILAT IMPRESSION: Stable bilateral screening mammogram. Yearly follow-up mammogram recommended. (A) ASSESSMENT CATEGORY: BIRADS Category 1: Negative. A letter regarding these results will be sent to the patient by the facility within 30 days. Approximately 10% of breast cancers are not detected by mammography. A normal mammogram should not delay biopsy of a clinically suspicious abnormality. [id number] Electronically Signed: Henry Jones MD at 15:18 EDT ,
== END | disposition home or self-care (01) ==
LOC: OPBI 13:18
PROVIDERS: PCP Nurse Practitioner Family; Referring Provider Nurse Practitioner Family; Visit Provider Nurse Practitioner Family
DX: Z12.31 Encounter for screening mammogram for malignant neoplasm of breast (principal)
CPT/HCPCS: 77063; 77067

== ENCOUNTER 2022-11-20 08:23 | Outpatient (RCR) | payer MEDICARE, OTHER, SELFPAY ==
[2022-11-06 21:02] VITALS: BMI 31.6
[2022-11-20 10:33] LABS: International Normalized Ratio 1.9; Prothrombin Time (Protime)PT. 21.8 SECONDS (11.7-14.9)
== END 2022-12-06 05:27 | disposition home or self-care (01) ==
LOC: MTLAB 08:23
PROVIDERS: Family Provider Nurse Practitioner; PCP Nurse Practitioner Family; Referring Provider Internal Medicine Cardiovascular Disease; Visit Provider Internal Medicine Cardiovascular Disease
DX: I48.0 Paroxysmal atrial fibrillation (principal); Z79.01 Long term (current) use of anticoagulants
CPT/HCPCS: 36415; 85610

== ENCOUNTER 2022-12-07 08:44 | Outpatient (RCR) | payer MEDICARE, OTHER, SELFPAY ==
[2022-12-06 05:28] VITALS: BMI 31.6
[2022-12-07 10:28] LABS: Absolute Lymphocyte Count 1.96 X10^3/uL (0.83-4.51); Absolute Neutrophil Count 3.1 X10^3/uL (2.0-7.7); Basophil# 0.05 X10^3/uL; Basophil% 0.8 % (0-1); Eosinophil# 0.27 X10^3/uL; Eosinophils% 4.5 % (0-5); Hematocrit 41.7 % (37-47); Hemoglobin 13.4 g/dL (12.0-15.0); Lymphocyte # 1.96 X10^3/ul (0.83-4.51); Lymphocyte % 32.9 % (19-41); Mean Corp Hgb Conc 32.1 g/dL (32-36); Mean Corpuscular Hgb 30.7 pg (27.0-32.0); Mean Corpuscular Volume 95.6 fL (81-99); Mean Platelet Vol. 11.1 fl (6.2-12.0); Monocyte# 0.57 X10^3/uL; Monocyte% 9.6 % (0-10); NRBC Flagged by Analyzer 0 % (0-5); Neutrophil # 3.09 X10^3/uL (2.7-7.7); Neutrophil % 51.9 % (47-70); Platelet Count 231 K/mm3 (150-450); RBC Distribution Width CV 14.1 % (11.6-14.6); RBC Distribution Width SD 50.2 fl (35.1-43.9); Red Blood Count 4.36 M/mm3 (4.2-5.4)
[2022-12-07 10:46] LABS: International Normalized Ratio 2.2; Prothrombin Time (Protime)PT. 24.4 SECONDS (11.7-14.9)
[2022-12-07 10:52] LABS: Vitamin B12 350 pg/mL (211-911)
[2022-12-07 11:04] LABS: Anion Gap 5 (5-15); BUN 28 mg/dL (7-18); BUN/Creat Ratio 25.5 RATIO (10-20); Chloride 110 mmol/L (98-107); EST Glomerular Filtration Rate 50 mL/min (>60); Est Glom Filt Rate - Afr Amer 61 mL/min (>60); Glucose 101 mg/dL (74-106); Potassium 4.3 mmol/L (3.5-5.1); Sodium Level 144 mmol/L (136-145); T4 Free Direct 1.09 ng/dL (0.76-1.46); Thyroid Stim Hormone (TSH) 3.76 uIU/mL (0.358-3.74)
== END 2022-12-07 09:44 | disposition home or self-care (01) ==
LOC: MTLAB 08:44
PROVIDERS: Family Provider Nurse Practitioner; PCP Nurse Practitioner Family; Referring Provider Internal Medicine Cardiovascular Disease; Visit Provider Internal Medicine Cardiovascular Disease
DX: I48.0 Paroxysmal atrial fibrillation (principal); Z79.01 Long term (current) use of anticoagulants; E03.9 Hypothyroidism, unspecified; I12.9 Hypertensive chronic kidney disease with stage 1 through stage 4 chronic kidney disease, or unspecified chronic kidney disease; N18.31 Chronic kidney disease, stage 3a
CPT/HCPCS: 36415; 80048; 82607; 82746; 84439; 84443; 85025; 85610

== ENCOUNTER 2023-01-07 09:10 | Outpatient (RCR) | payer MEDICARE, OTHER, SELFPAY ==
[2023-01-07 08:16] VITALS: BMI 31.6
[2023-01-07 10:48] LABS: International Normalized Ratio 2.3; Prothrombin Time (Protime)PT. 25.3 SECONDS (11.7-14.9)
== END 2023-01-07 18:00 | disposition home or self-care (01) ==
LOC: MTLAB 09:10
PROVIDERS: Family Provider Nurse Practitioner; PCP Nurse Practitioner Family; Referring Provider Internal Medicine Cardiovascular Disease; Visit Provider Internal Medicine Cardiovascular Disease
DX: I48.0 Paroxysmal atrial fibrillation (principal); E03.9 Hypothyroidism, unspecified; N18.31 Chronic kidney disease, stage 3a; Z79.01 Long term (current) use of anticoagulants; I13.10 Hypertensive heart and chronic kidney disease without heart failure, with stage 1 through stage 4 chronic kidney disease, or unspecified chronic kidney disease
CPT/HCPCS: 36415; 85610

== ENCOUNTER 2023-02-12 08:15 | Outpatient (RCR) | payer MEDICARE, OTHER, SELFPAY ==
[2023-02-06 02:49] VITALS: BMI 31.6
[2023-02-12 10:20] LABS: International Normalized Ratio 3.1; Prothrombin Time (Protime)PT. 32.7 SECONDS (11.7-14.9)
[2023-02-12 10:52] LABS: Thyroid Stim Hormone (TSH) 3.11 uIU/mL (0.358-3.74)
== END 2023-03-08 18:00 | disposition home or self-care (01) ==
LOC: MTLAB 08:15
PROVIDERS: Physician Assistant Medical; Family Provider Nurse Practitioner; PCP Nurse Practitioner Family; Referring Provider Internal Medicine Cardiovascular Disease; Visit Provider Internal Medicine Cardiovascular Disease
DX: I48.0 Paroxysmal atrial fibrillation (principal); E03.9 Hypothyroidism, unspecified; I12.9 Hypertensive chronic kidney disease with stage 1 through stage 4 chronic kidney disease, or unspecified chronic kidney disease; N18.31 Chronic kidney disease, stage 3a; Z79.01 Long term (current) use of anticoagulants
CPT/HCPCS: 36415; 84443; 85610

== ENCOUNTER 2023-03-19 10:29 | Outpatient (RCR) | payer MEDICARE, OTHER, SELFPAY ==
[2023-03-09 02:28] VITALS: BMI 31.6
[2023-03-19 12:27] LABS: International Normalized Ratio 2.7; Prothrombin Time (Protime)PT. 28.6 SECONDS (11.7-14.9)
[2023-03-19 12:50] LABS: AST(SGOT) 20 U/L (15-37); Alanine Aminotransfer ALT/SGPT 28 U/L (13-56); Albumin, Serum 3.6 g/dL (3.2-5.0); Alkaline Phosphatase 64 U/L (45-117); Bilirubin, Direct 0.12 mg/dL (0.00-0.30); Cholesterol 179 mg/dL (200); Globulin 3.1 g/dL (2.2-4.2); High Density Lipoprotein 72 mg/dL; Protein, Total 6.7 g/dL (6.4-8.2); Thyroid Stim Hormone (TSH) 2.07 uIU/mL (0.358-3.74); Triglycerides 90 mg/dL; Very Low Density Lipoprotein 18 mg/dL (5-40)
== END 2023-03-19 18:00 | disposition home or self-care (01) ==
LOC: MTLAB 10:29
PROVIDERS: Physician Assistant Medical; Family Provider Nurse Practitioner; PCP Nurse Practitioner Family; Referring Provider Internal Medicine Cardiovascular Disease; Visit Provider Internal Medicine Cardiovascular Disease
DX: I48.0 Paroxysmal atrial fibrillation (principal); Z79.01 Long term (current) use of anticoagulants
CPT/HCPCS: 36415; 80061; 80076; 84443; 85610

== ENCOUNTER 2023-04-15 09:56 | Outpatient (RCR) | payer MEDICARE, OTHER, SELFPAY ==
[2023-04-09 02:13] VITALS: BMI 31.6
[2023-04-15 12:40] LABS: International Normalized Ratio 2.4; Prothrombin Time (Protime)PT. 26.2 SECONDS (11.7-14.9)
== END 2023-04-15 18:00 | disposition home or self-care (01) ==
LOC: MTLAB 09:56
PROVIDERS: Family Provider Nurse Practitioner; PCP Nurse Practitioner Family; Referring Provider Internal Medicine Cardiovascular Disease; Visit Provider Internal Medicine Cardiovascular Disease
DX: I48.0 Paroxysmal atrial fibrillation (principal); E03.9 Hypothyroidism, unspecified; I12.9 Hypertensive chronic kidney disease with stage 1 through stage 4 chronic kidney disease, or unspecified chronic kidney disease; N18.31 Chronic kidney disease, stage 3a; Z79.01 Long term (current) use of anticoagulants
CPT/HCPCS: 36415; 85610

== ENCOUNTER 2023-06-07 09:05 | Outpatient (RCR) | payer MEDICARE, OTHER, SELFPAY ==
[2023-05-09 05:09] VITALS: BMI 31.6
[2023-06-07 10:05] LABS: International Normalized Ratio 2.6; Prothrombin Time (Protime)PT. 27.8 SECONDS (11.7-14.9)
== END 2023-06-07 18:00 | disposition home or self-care (01) ==
LOC: MTLAB 09:05
PROVIDERS: Family Provider Nurse Practitioner; PCP Nurse Practitioner Family; Referring Provider Internal Medicine Cardiovascular Disease; Visit Provider Internal Medicine Cardiovascular Disease
DX: I48.0 Paroxysmal atrial fibrillation (principal); Z79.01 Long term (current) use of anticoagulants
CPT/HCPCS: 36415; 85610

== ENCOUNTER 2023-07-06 16:54 | Outpatient (RCR) | payer MEDICARE, OTHER, SELFPAY ==
[2023-06-08 23:16] VITALS: BMI 31.6
[2023-07-05 11:10] LABS: AST(SGOT) 18 U/L (15-37); Alanine Aminotransfer ALT/SGPT 22 U/L (13-56); Albumin, Serum 3.5 g/dL (3.2-5.0); Alkaline Phosphatase 71 U/L (45-117); Bilirubin, Direct 0.14 mg/dL (0.00-0.30); Cholesterol 164 mg/dL (200); Globulin 3.1 g/dL (2.2-4.2); High Density Lipoprotein 71 mg/dL; Protein, Total 6.6 g/dL (6.4-8.2); Triglycerides 75 mg/dL; Very Low Density Lipoprotein 15 mg/dL (5-40)
[2023-07-06 17:46] LABS: International Normalized Ratio 2.2; Prothrombin Time (Protime)PT. 24.5 SECONDS (11.7-14.9)
== END 2023-07-08 18:00 | disposition home or self-care (01) ==
LOC: MTLAB 16:54
PROVIDERS: Family Provider Nurse Practitioner; PCP Nurse Practitioner Family; Referring Provider Internal Medicine Cardiovascular Disease; Visit Provider Internal Medicine Cardiovascular Disease
DX: I48.0 Paroxysmal atrial fibrillation (principal); Z79.01 Long term (current) use of anticoagulants; E78.00 Pure hypercholesterolemia, unspecified
CPT/HCPCS: 36415; 80061; 80076; 85610

== ENCOUNTER 2023-08-04 08:16 | Outpatient (RCR) | payer MEDICARE, OTHER, SELFPAY ==
[2023-07-09 04:22] VITALS: BMI 31.6
[2023-08-04 10:11] LABS: International Normalized Ratio 2.4; Prothrombin Time (Protime)PT. 26.2 SECONDS (11.7-14.9)
== END 2023-08-08 18:00 | disposition home or self-care (01) ==
LOC: MTLAB 08:16
PROVIDERS: Family Provider Nurse Practitioner; PCP Nurse Practitioner Family; Referring Provider Internal Medicine Cardiovascular Disease; Visit Provider Internal Medicine Cardiovascular Disease
DX: I48.0 Paroxysmal atrial fibrillation (principal); Z79.01 Long term (current) use of anticoagulants
CPT/HCPCS: 36415; 85610

== ENCOUNTER 2023-09-02 09:04 | Outpatient (RCR) | payer MEDICARE, OTHER, SELFPAY ==
[2023-08-08 23:43] VITALS: BMI 31.6
[2023-09-02 10:23] LABS: International Normalized Ratio 2.3; Prothrombin Time (Protime)PT. 25.4 SECONDS (11.7-14.9)
== END 2023-09-02 18:00 | disposition home or self-care (01) ==
LOC: MTLAB 09:04
PROVIDERS: Family Provider Nurse Practitioner; PCP Nurse Practitioner Family; Referring Provider Internal Medicine Cardiovascular Disease; Visit Provider Internal Medicine Cardiovascular Disease
DX: I48.0 Paroxysmal atrial fibrillation (principal); Z79.01 Long term (current) use of anticoagulants
CPT/HCPCS: 36415; 85610

== ENCOUNTER 2023-10-08 11:13 | Outpatient (RCR) | payer MEDICARE, OTHER, SELFPAY ==
[2023-09-08 23:53] VITALS: BMI 31.6
[2023-10-08 12:26] LABS: International Normalized Ratio 2.8
== END 2023-11-07 02:12 | disposition home or self-care (01) ==
LOC: MTLAB 11:13
PROVIDERS: Family Provider Nurse Practitioner; PCP Nurse Practitioner Family; Referring Provider Internal Medicine Cardiovascular Disease; Visit Provider Internal Medicine Cardiovascular Disease
DX: I48.0 Paroxysmal atrial fibrillation (principal); Z79.01 Long term (current) use of anticoagulants
CPT/HCPCS: 36415; 85610

== ENCOUNTER 2023-12-03 08:28 | Outpatient (RCR) | payer MEDICARE, OTHER, SELFPAY ==
[2023-11-07 02:12] VITALS: BMI 31.6
[2023-11-08 10:18] LABS: International Normalized Ratio 3.2; Prothrombin Time (Protime)PT. 32.5 SECONDS (11.7-14.9)
[2023-11-19 10:28] LABS: International Normalized Ratio 3.2; Prothrombin Time (Protime)PT. 32.7 SECONDS (11.7-14.9)
[2023-12-03 10:32] LABS: International Normalized Ratio 2.7; Prothrombin Time (Protime)PT. 28.4 SECONDS (11.7-14.9)
[2023-12-03 11:16] LABS: AST(SGOT) 17 U/L (15-37); Alanine Aminotransfer ALT/SGPT 23 U/L (13-56); Albumin, Serum 3.8 g/dL (3.2-5.0); Alkaline Phosphatase 74 U/L (45-117); Bilirubin, Direct 0.09 mg/dL (0.00-0.30); Cholesterol 186 mg/dL (200); Globulin 2.9 g/dL (2.2-4.2); High Density Lipoprotein 74 mg/dL; Protein, Total 6.7 g/dL (6.4-8.2); Triglycerides 91 mg/dL; Very Low Density Lipoprotein 18 mg/dL (5-40)
== END 2023-12-07 22:30 | disposition home or self-care (01) ==
LOC: MTLAB 08:28
PROVIDERS: Physician Assistant Medical; Family Provider Nurse Practitioner; PCP Nurse Practitioner Family; Referring Provider Internal Medicine Cardiovascular Disease; Visit Provider Internal Medicine Cardiovascular Disease
DX: I48.0 Paroxysmal atrial fibrillation (principal); Z79.01 Long term (current) use of anticoagulants; E78.00 Pure hypercholesterolemia, unspecified; Z79.899 Other long term (current) drug therapy; Z98.890 Other specified postprocedural states
CPT/HCPCS: 36415; 80061; 80076; 84443; 85610

== ENCOUNTER → 2023-12-15 | Outpatient (CLI) | payer MEDICARE, OTHER, SELFPAY ==
--- NOTE | 2023-12-15 12:34 | ECHOD_ITS ---
Reason For Study: CAD/ASHD Procedure This was a 2D Doppler, Color Flow transthoracic echocardiogram. Exam performed in department. Left Ventricle Normal LV size. The left ventricular ejection fraction is 50 %. There is mild global hypokinesis of the left ventricle. Right Ventricle Normal RV size. Normal systolic function. Mitral Valve Bileaflet diffuse mitral valve thickening. Mitral valve doming/Hockey Sticking. Mean transmitral valve gradient 4 mmHg. Status post mitral valve repair with annuloplasty ring. Tricuspid Valve Normal tricuspid valve. Mild (1+) tricuspid valve insufficiency. Pulmonary artery systolic pressure is 32 mmHg. Aortic Valve Trisinus/trileaflet aortic valve. Mild diffuse aortic valve thickening. Pulmonic Valve Normal pulmonic valve. Great Vessels Normal aortic root. The pulmonary artery is normal size. Normal inferior vena cava. Pericardium/Pleural No pericardial effusion. MMode/2D Measurements & Calculations LVIDd: 4.7 cm IVSd: 0.97 cm Ao root diam: 3.0 cm LVIDs: 3.3 cm LVPWd: 1.0 cm RVDd: 3.2 cm FS: 29.5 % LAV(MOD-bp): 60.5 ml LVAd ap4: 25.9 cm2 SV(MOD-sp4): 42.6 ml LAV(MOD-bp) Indexed: 32.7 ml/m2 LVLd ap4: 7.2 cm LAV(MOD-sp2): 63.7 ml EDV(MOD-sp4): 77.1 ml LAV(MOD-sp4): 57.7 ml EDV(sp4-el): 79.1 ml LVAs ap4: 16.5 cm2 LVLs ap4: 6.4 cm ESV(MOD-sp4): 34.6 ml ESV(sp4-el): 36.4 ml EF(MOD-sp4): 55.2 % EF(sp4-el): 54.0 % SV(sp4-el): 42.7 ml LA dimension(2D): 3.5 cm LA A4 area: 21.0 cm2 RA A4 area: 12.8 cm2 TAPSE: 2.0 cm Time Measurements MV dec time: 0.24 sec Doppler Measurements & Calculations MV E max jaret: 137.2 cm/sec Lat Peak E' Jaret: 8.5 cm/sec Med Peak E' Jaret: 3.3 cm/sec MV A max jaret: 108.7 cm/sec E/E' lat: 16.1 E/E' med: 41.4 MV E/A: 1.3 MV V2 max: 137.8 cm/sec Ao V2 max: 123.6 cm/sec MV max P.6 mmHg MV dec slope: 573.5 cm/sec2 Ao max P.1 mmHg MV V2 mean: 99.4 cm/sec Ao V2 mean: 84.0 cm/sec MV mean P.2 mmHg Ao mean P.3 mmHg MV V2 VTI: 51.4 cm Ao V2 VTI: 29.8 cm AV (velocity ratio): 0.81 LV V1 max: 104.0 cm/sec PA V2 max: 55.7 cm/sec PI end-d jaret: 113.7 cm/sec LV V1 max P.3 mmHg LV V1 mean P.7 mmHg LV V1 mean: 78.7 cm/sec LV V1 VTI: 24.3 cm TR max jaret: 272.5 cm/sec TR max P.7 mmHg ECHO/Echo Complete Interpretation Summary Status post mitral valve repair with annuloplasty ring. Normal LV size. The left ventricular ejection fraction is 50 %. Mitral valve doming/Hockey Sticking Mean transmitral valve gradient 4 mmHg. Ordering Physician: Jennifer Goodwin Referring Physician: Racquel Jett Performed By: Amy Alston, MARIPOSACS, RVT
== END | disposition home or self-care (01) ==
LOC: CVS 12:31
PROVIDERS: PCP Nurse Practitioner Family; Referring Provider Physician Assistant Medical; Visit Provider Physician Assistant Medical
DX: I34.0 Nonrheumatic mitral (valve) insufficiency (principal); I48.0 Paroxysmal atrial fibrillation; Z79.899 Other long term (current) drug therapy; Z98.890 Other specified postprocedural states
CPT/HCPCS: 93306

== ENCOUNTER 2023-12-17 08:59 | Outpatient (RCR) | payer MEDICARE, OTHER, SELFPAY ==
[2023-12-07 22:30] VITALS: BMI 31.6
[2023-12-17 10:54] LABS: International Normalized Ratio 2.8
== END 2024-01-07 18:00 | disposition home or self-care (01) ==
LOC: MTLAB 08:59
PROVIDERS: Family Provider Nurse Practitioner; PCP Nurse Practitioner Family; Referring Provider Internal Medicine Cardiovascular Disease; Visit Provider Internal Medicine Cardiovascular Disease
DX: I48.0 Paroxysmal atrial fibrillation (principal); Z79.01 Long term (current) use of anticoagulants
CPT/HCPCS: 36415; 85610

== ENCOUNTER → 2024-01-04 | Outpatient (CLI) | payer MEDICARE, OTHER, SELFPAY ==
--- NOTE | 2024-01-04 13:41 | VDLE_ITS ---
Reason For Study: Right leg pain RIGHT GSV is normal. CFV is compressible, spontaneous, phasic, competent and demonstrates normal augmentation. FV is compressible, spontaneous, phasic, competent and demonstrates normal augmentation. POP V is compressible, spontaneous, phasic, competent and demonstrates normal augmentation. T/P Trunk is compressible. PTV is compressible. RT PerV is compressible. SFJ is INCOMPETENT and measures 1.02 x 1.09 cm. GSV proximal thigh measures 0.38 x 0.39 cm. GSV at knee measures 0.39 x 0.43 cm. GSV INCOMPETENT throughout for greater than 0.5 seconds. GSV at prox thigh is partially compressible with bright intraluminal echoes. Appears to have previous ablations with GSV absent from prox to distal thigh. GSV below knee is very tortuous. ASV mid calf is INCOMPETENT for greater than 0.5 seconds and measures 0.40 x 0.43 cm. Connects GSV mid calf to SSV distal. SSV prox-mid is competent and measures 0.22 x 0.23 cm. SSV distal is INCOMPETENT for greater than 0.5 seconds after connection with ASV mid calf. Procedure This is a venous duplex using B-mode, color flow and spectral Doppler. Exam performed in department. Patient was scanned in reverse Trendelenburg position during reflux assessment. VL/Venous Duplex US, Unilateral Interpretation Summary Deep veins of the right lower extremity are patent and compressible segmentally . There is no evidence of right lower extremity deep vein thrombosis. 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 Positive for reflux in the right saphenofemoral junction, accessory saphenous v ein, small saphenous vein. Ordering Physician: Sharri Richter Referring Physician: Graham. Clement Performed By: Shannon Murillo RVT
== END | disposition home or self-care (01) ==
LOC: CVS 13:40
PROVIDERS: PCP Nurse Practitioner Family; Referring Provider Physician Assistant; Visit Provider Physician Assistant
DX: I83.891 Varicose veins of right lower extremity with other complications (principal)
CPT/HCPCS: 93971

== ENCOUNTER → 2024-01-11 | Outpatient (CLI) | payer MEDICARE, OTHER, SELFPAY ==
--- NOTE | 2024-01-11 09:15 | BI_ITS ---
MAMMOGRAPHY - BILATERAL SCREENING REASON FOR EXAM: Female, 83 years old. Routine annual screening examination. PERTINENT HISTORY: Non-contributory. TECHNIQUE: Digital bilateral breast luis alberto (3D mammographic acquisition) in the CC and MLO projections. 2-D mediolateral oblique (MLO) and craniocaudad (CC) views of both breasts were obtained. CAD: Full Field Digital Mammography with Computer Added Detection was performed. COMPARISON: Comparison is made with prior study dated November 10, 2022 and November 06, 2021. FINDINGS: Breast Composition: There are scattered areas of fibroglandular density. There are no dominant masses or suspicious calcifications. No other significant abnormalities are identified. There has been no significant change since the prior study. BI/SCRN MAMM (CAD)W/LUIS ALBERTO BILAT IMPRESSION: Stable bilateral screening mammogram. Yearly follow-up mammogram recommended. (A) ASSESSMENT CATEGORY: BIRADS Category 1: Negative. A letter regarding these results will be sent to the patient by the facility within 30 days. Approximately 10% of breast cancers are not detected by mammography. A normal mammogram should not delay biopsy of a clinically suspicious abnormality. [id number] Electronically Signed: Henry Jones MD at 10:32 EDT ,
--- NOTE | 2024-01-11 09:18 | BD_ITS ---
STUDY: DUAL ENERGY X-RAY ABSORPTIOMETRY / DXA REASON FOR EXAM: Female, 83 years old. Z780 -- due in December TECHNIQUE: Bone Mineral Density (BMD) measurements of lumbar spine and bilateral hips were obtained. COMPARISON: Comparison is made with prior study January 06, 2022. FINDINGS: Lumbar Spine (L1-L4): g/cm2 (1.087) / T-score (-0.1) / Z-score (2.9) Findings are suggestive of normal bone density with a low fracture risk. Left Femur Total: g/cm2 (0.820) / T-score (-1.0) / Z-score (1.3) Left Femoral Neck: g/cm2 (0.715) / T-score (-1.2) / Z-score (1.3) Right Femur Total: g/cm2 (0.786) / T-score (-1.3) / Z-score (1.0) Right Femoral Neck: g/cm2 (0.904) / T-score (0.5) / Z-score (3.0) The T-Scores on the most recent prior examination were: Lumbar Spine (L1-L4): There has been worsening of bone density since the previous examination. Left Femur Total: which represents a worsening of 6.8%. Right Femur Total: which represents a worsening of 5%. BD/Dexa Bone Density Study IMPRESSION: The patient is considered osteopenic as outlined below according to World [employer] Organization (WHO) criteria with a low fracture risk. There has been worsening of bone density since the previous examination. Reference Information: The T-score is the number of standard deviations above or below the standard which is normal for young adults at their peak bone mineral density. The World Health Organization (WHO) interprets the T-scores as follows: Above -1 Normal bone density Between -1 and -2.5 Osteopenia Equal to / or below -2.5 Osteoporosis As a practical clinical guideline, osteopenia may be graded as follows: Mild -1 through -1.5 Moderate -1.6 through -2.0 Severe -2.1 through -2.4 The Z-score is the number of standard deviations above or below age-matched controls. A Z-score of less than -1.5 would be considered abnormal. References: 1. NIH Osteoporosis and Related Bone Diseases www osteo.org 2. International Society for Clinical Densitometry www iscd.org 3. National Osteoporosis Foundation www nof.org Electronically Signed: Henry Jones MD at 9:45 EDT ,
== END | disposition home or self-care (01) ==
LOC: OPBD 09:13
PROVIDERS: PCP Nurse Practitioner Family; Referring Provider Nurse Practitioner Family; Visit Provider Nurse Practitioner Family
DX: Z12.31 Encounter for screening mammogram for malignant neoplasm of breast (principal); Z78.0 Asymptomatic menopausal state
CPT/HCPCS: 77063; 77067; 77080

== ENCOUNTER 2024-01-14 08:20 | Outpatient (RCR) | payer MEDICARE, OTHER, SELFPAY ==
[2024-01-10 08:43] VITALS: BMI 31.6
[2024-01-14 10:35] LABS: International Normalized Ratio 2.7; Prothrombin Time (Protime)PT. 28.1 SECONDS (11.7-14.9)
== END 2024-01-14 18:00 | disposition home or self-care (01) ==
LOC: MTLAB 08:20
PROVIDERS: Family Provider Nurse Practitioner; PCP Nurse Practitioner Family; Referring Provider Internal Medicine Cardiovascular Disease; Visit Provider Internal Medicine Cardiovascular Disease
DX: I48.0 Paroxysmal atrial fibrillation (principal); Z79.01 Long term (current) use of anticoagulants
CPT/HCPCS: 36415; 85610

== ENCOUNTER 2024-02-15 08:34 | Outpatient (RCR) | payer MEDICARE, OTHER, SELFPAY ==
[2024-02-07 04:36] VITALS: BMI 31.6
[2024-02-15 10:07] LABS: International Normalized Ratio 2.8; Prothrombin Time (Protime)PT. 29.2 SECONDS (11.7-14.9)
== END 2024-03-08 18:00 | disposition home or self-care (01) ==
LOC: MTLAB 08:34
PROVIDERS: Family Provider Nurse Practitioner; PCP Nurse Practitioner Family; Referring Provider Internal Medicine Cardiovascular Disease; Visit Provider Internal Medicine Cardiovascular Disease
DX: I48.0 Paroxysmal atrial fibrillation (principal); Z79.01 Long term (current) use of anticoagulants
CPT/HCPCS: 36415; 85610

== ENCOUNTER 2024-03-31 08:41 | Outpatient (RCR) | payer MEDICARE, OTHER, SELFPAY ==
[2024-03-08 23:33] VITALS: BMI 31.6
[2024-03-17 10:12] LABS: International Normalized Ratio 3.1; Prothrombin Time (Protime)PT. 31.6 SECONDS (11.7-14.9)
[2024-03-31 10:44] LABS: International Normalized Ratio 2.6; Prothrombin Time (Protime)PT. 27.3 SECONDS (11.7-14.9)
== END 2024-03-31 18:00 | disposition home or self-care (01) ==
LOC: MTLAB 08:41
PROVIDERS: Family Provider Nurse Practitioner; PCP Nurse Practitioner Family; Referring Provider Internal Medicine Cardiovascular Disease; Visit Provider Internal Medicine Cardiovascular Disease
DX: I48.0 Paroxysmal atrial fibrillation (principal); Z79.01 Long term (current) use of anticoagulants
CPT/HCPCS: 36415; 85610

== ENCOUNTER 2024-04-11 08:47 | Day surgery (SDC) | payer MEDICARE, OTHER, SELFPAY ==
[2024-04-07 08:07] VITALS: BMI 31.9
[2024-04-11] VITALS (9 sets, daily range): BP systolic 140–184; BP diastolic 61–110; PULSE 45–78; RESP 16; TEMP 36.1–36.2; O2SAT 93–98; BMI 31.6
[2024-04-11 09:03] LABS: INR Fingerstick 1.7; Prothrombin Time Fingerstick 18.1 SEC (11.7-14.9)
[2024-04-11] MEDS: Lactated Ringers 1,000 ML 15 ML IV (09:30)
[2024-04-11 09:43] LABS: International Normalized Ratio 1.6; Prothrombin Time (Protime)PT. 18.7 SECONDS (11.7-14.9)
--- NOTE | 2024-04-11 10:02 | PCM.PRE.AN2 ---
ASA Classification* ASA Classification ASA Classification: 3 Assessment & Plan Anesthesia* Anesthesia Assessment Anesthesia Assessment: Discussed sedation and/or anesthesia options, risks, benefits, and alternatives with patient/parents/legal guardian/POA. Questions invited. The patient/parents/legal guardian/POA seems to understand and agrees to proceed with anesthesia plan. Reviewed the physical assessment, medical history, allergy history and patient home medications list prior to surgery/procedure/anesthetic and documented any changes. Performed airway and anesthesia risk assessments. Anesthesia Type Anesthesia Type: General History Source History Obtained from:: Patient and Chart Anesthesia Focused Assessment* Temperature: 97.2 F Pulse Rate: 51 Blood Pressure: 184/69 Respiratory Rate: 16 Pulse Ox: 98 Oxygen Delivery Method: Room Air Airway Assessment Mouth opens: >3 cm Mallampati Score: III Teeth Condition: Caps/Crowns (Multiple crowns. All tight) and Missing (Left upper molar is missing.) Neck Range of motion (ROM): Limited ROM (Slight decrease in extension) Focused Labs Anesthesia Preop lab: CBC WBC 6.0 K/mm3 (4.4-11.0) 12/07/22 08:47 RBC 4.36 M/mm3 (4.2-5.4) 12/07/22 08:47 Hgb 13.4 g/dL (12.0-15.0) 12/07/22 08:47 Hct 41.7 % (37-47) 12/07/22 08:47 Plt Count 231 K/mm3 (150-450) 12/07/22 08:47 CHEMISTRY Potassium 4.3 mmol/L (3.5-5.1) 12/07/22 08:47 Sodium 144 mmol/L (136-145) 12/07/22 08:47 BUN 28 mg/dL (7-18) H 12/07/22 08:47 Creatinine 1.10 mg/dL (0.55-1.02) H 12/07/22 08:47 Glucose 101 mg/dL (74-106) 12/07/22 08:47 TSH 3.40 uIU/mL (0.358-3.74) 12/03/23 08:33 COAG PT 18.7 SECONDS (11.7-14.9) H 04/11/24 09:22 Pre-Assessment Diagnosis/Proposed Procedure Planned Operative Procedure(s): (R) SFJ Ligation and Saphenous Vein Chemical, in Dinner Cook with OR Staff and Anes Anesthesia History 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 When Was Last Pacemaker Check QUESTION #4 FULL TEXT: You/Your Family Experience fever (hyperthermia) with Anesthesia Last Oral Intake Last Oral intake: Last Oral Intake NPO since 06:30 04/11/24 09:22 Meds taken in AM with sips of Yes 04/11/24 09:22 water? 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 Female Yes 04/03/24 10:02 HX of Motion Sickness No 04/03/24 10:02 HX of N/V After Surgery No 04/03/24 10:02 Non-Smoker Yes 04/03/24 10:02 Duration of Surgery greater Yes 04/03/24 10:02 than 60 minutes Number of Risk Factors 3 04/03/24 10:02 PONV Score Moderate Risk 04/03/24 10:02 Height & Weight Height & Weight: Anesthesia: Height & Weight Height 5 ft 4 in 04/11/24 09:22 Weight: 83.6 kg 04/11/24 09:22 Body Mass Index (BMI) 31.6 04/11/24 09:22 Respiratory Assessment Respiratory Assessment - tile power shear operator: Respiratory Tract Infection Hx - 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 Has anyone observed you stop No 04/03/24 10:02 breathing during sleep? STOP Results Negative 04/03/24 10:02 QUESTION #5 FULL TEXT : Do you snore loudly (louder than talking or can be heard through closed doors)? 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 Specify any problems Hx of Preganancy in last 3 No 04/03/24 10:02 Months Nurse Filling Out Transfusion VCHRISTIN 04/03/24 10:02 & Questions: Date: 04/03/24 04/03/24 10:02 Time: 10:02 04/03/24 10:02 Patient unable to answer at this time (ie. confused, unrespo /Reproduction History /Reproductive History - tile power shear operator: /Reproductive Hx- tile power shear operator Hx Now No 04/03/24 10:02 Gestational Age (in weeks): EDC: Hx Hx Para Hx Section SAB No 04/03/24 10:02 Active Medications Active Medications: Current Medications Generic Name Dose Route Start Last Admin Trade Name Freq PRN Reason Stop Dose Admin Lactated Ringer's 1,000 mls @ 15 mls/hr 04/11/24 09:15 04/11/24 09:30 IV 15 mls/hr .Q48H ANGELITA Administration PFSH Medical History Wears glasses Thyroid disease High cholesterol Restless legs Non-smoker CPAP (continuous positive airway pressure) dependence Sleep apnea Asthma History of edema History of echocardiogram Hypertension Cardiology follow-up encounter History of atrial fibrillation Facial swelling Left upper lobe pulmonary infiltrate Right upper lobe pulmonary infiltrate Left carotid bruit Left-sided carotid artery disease Venous insufficiency of both lower extremities Non-rheumatic mitral valve stenosis Obesity Non-ischemic cardiomyopathy Nonrheumatic mitral (valve) insufficiency Essential (primary) hypertension Hyperlipidemia Left carotid artery stenosis Paroxysmal atrial fibrillation Home Medications ?Medication ?Instructions ?Recorded ?Last Taken ?Type calcium carbonate 600 mg PO BID 01/11/15 Unknown History cholecalciferol (vitamin D3) 25 2,000 unit PO DAILY 01/11/15 Unknown History mcg (1,000 unit) tablet levothyroxine 25 mcg tablet 25 mcg PO DAILY 01/11/15 04/11/24 History biotin 1 mg capsule 1 mg PO DAILY 09/05/19 Unknown History cyanocobalamin (vitamin B-12) 500 1,000 mcg PO DAILY 10/21/21 Unknown History mcg tablet furosemide 40 mg tablet 40 mg PO Q OTHER DAY PRN edema 10/21/21 Unknown History simvastatin 20 mg tablet 20 mg PO .M/W/F #36 tabs 07/06/23 Unknown Rx carvedilol 12.5 mg tablet See Rx Instructions .Route 01/10/24 04/11/24 Rx .COMPLEX #180 tabs Bifidobacterium infantis 10.5 mg 10.5 mg PO DAILY 02/29/24 Unknown History (10 million cell) chewable tablet (Align) albuterol sulfate 90 mcg/actuation 2 puff inhalation PRN PRN wheezing 02/29/24 Unknown History aerosol inhaler alendronate 70 mg tablet 70 mg PO QWEEK 02/29/24 Unknown History [id number] oil-omega 3-vit E 1 cap PO MOWEFR 02/29/24 Unknown History 50 mg-550 mg-300 mg-30 unit capsule diosmin complex no.1 630 mg tablet 1 tab PO DAILY 02/29/24 Unknown History (Vasculera) vitamin E 670 mg (1,000 unit) 670 mg PO DAILY 02/29/24 Unknown History capsule amiodarone 200 mg tablet See Rx Instructions .Route 03/13/24 04/11/24 Rx .COMPLEX #45 tabs fluticasone fur. 200 mcg-umeclid 1 inh inhalation DAILY 04/03/24 04/11/24 History 62.5 mcg-vilant 25 mcg inhalat.powder (Trelegy Ellipta) lisinopril 40 mg tablet 40 mg PO DAILY #90 tabs 04/03/24 04/11/24 Rx warfarin 2 mg tablet See Rx Instructions .Route .COMPLEX 04/03/24 04/07/24 History Allergy/AdvReac Type Severity Reaction Status Date / Time No Known Allergies Allergy Verified 04/11/24 09:18 Family History Father , age 48 from [place] CAD (coronary artery disease) Sudden cardiac Myocardial infarction Mother , age 94, had CABG at age 85 CAD (coronary artery disease) Surgical History History of colonoscopy History of vein stripping (~08/2020) History of cardioversion (2014) History of hysterectomy History of appendectomy H/O mitral valve repair (03/22/00) Social History Smoking Status: Never smoker alcohol intake: never substance use type: does not use caffeine: No Review of Systems (Anesthesia) ROS Narrative System reviewed and no additional complaints, except as documented.
--- NOTE | 2024-04-11 11:08 | PCM.HP.STD ---
HPI - General HPI Narrative VALERIE CRAIN, is a 83 F who presents with symptomatic right lower extremity varicose veins with pain and edema refractory to compression stockings. She had a venous duplex that revealed reflux including the saphenofemoral junction. [facility] Medical History Wears glasses Thyroid disease High cholesterol Restless legs Non-smoker CPAP (continuous positive airway pressure) dependence Sleep apnea Asthma History of edema History of echocardiogram Hypertension Cardiology follow-up encounter History of atrial fibrillation Facial swelling Left upper lobe pulmonary infiltrate Right upper lobe pulmonary infiltrate Left carotid bruit Left-sided carotid artery disease Venous insufficiency of both lower extremities Non-rheumatic mitral valve stenosis Obesity Non-ischemic cardiomyopathy Nonrheumatic mitral (valve) insufficiency Essential (primary) hypertension Hyperlipidemia Left carotid artery stenosis Paroxysmal atrial fibrillation Home Medications ?Medication ?Instructions ?Recorded ?Last Taken ?Type calcium carbonate 600 mg PO BID 01/11/15 Unknown History cholecalciferol (vitamin D3) 25 2,000 unit PO DAILY 01/11/15 Unknown History mcg (1,000 unit) tablet levothyroxine 25 mcg tablet 25 mcg PO DAILY 01/11/15 04/11/24 History biotin 1 mg capsule 1 mg PO DAILY 09/05/19 Unknown History cyanocobalamin (vitamin B-12) 500 1,000 mcg PO DAILY 10/21/21 Unknown History mcg tablet furosemide 40 mg tablet 40 mg PO Q OTHER DAY PRN edema 10/21/21 Unknown History simvastatin 20 mg tablet 20 mg PO .M/W/F #36 tabs 07/06/23 Unknown Rx carvedilol 12.5 mg tablet See Rx Instructions .Route 01/10/24 04/11/24 Rx .COMPLEX #180 tabs Bifidobacterium infantis 10.5 mg 10.5 mg PO DAILY 02/29/24 Unknown History (10 million cell) chewable tablet (Align) albuterol sulfate 90 mcg/actuation 2 puff inhalation PRN PRN wheezing 02/29/24 Unknown History aerosol inhaler alendronate 70 mg tablet 70 mg PO QWEEK 02/29/24 Unknown History [id number] oil-omega 3-vit E 1 cap PO MOWEFR 02/29/24 Unknown History 50 mg-550 mg-300 mg-30 unit capsule diosmin complex no.1 630 mg tablet 1 tab PO DAILY 02/29/24 Unknown History (Vasculera) vitamin E 670 mg (1,000 unit) 670 mg PO DAILY 02/29/24 Unknown History capsule amiodarone 200 mg tablet See Rx Instructions .Route 03/13/24 04/11/24 Rx .COMPLEX #45 tabs fluticasone fur. 200 mcg-umeclid 1 inh inhalation DAILY 04/03/24 04/11/24 History 62.5 mcg-vilant 25 mcg inhalat.powder (Trelegy Ellipta) lisinopril 40 mg tablet 40 mg PO DAILY #90 tabs 04/03/24 04/11/24 Rx warfarin 2 mg tablet See Rx Instructions .Route .COMPLEX 04/03/24 04/07/24 History Allergy/AdvReac Type Severity Reaction Status Date / Time No Known Allergies Allergy Verified 04/11/24 09:18 Family History Father , age 48 from [place] CAD (coronary artery disease) Sudden cardiac Myocardial infarction Mother , age 94, had CABG at age 85 CAD (coronary artery disease) Surgical History History of colonoscopy History of vein stripping (~08/2020) History of cardioversion (2014) History of hysterectomy History of appendectomy H/O mitral valve repair (03/22/00) Social History Smoking Status: Never smoker alcohol intake: never substance use type: does not use caffeine: No ROS Constitutional Constitutional: Denies chills, fever(s), frequent falls, lethargy or weakness Eyes Eyes: Denies blind spots, change in vision or loss of vision ENT HEENT: Denies bleeding gums, hoarseness or sore throat Cardiovascular Cardiovascular: Denies abdominal pain, bluish discoloration of hand/feet, chest pain with activity, claudication, cold extremities, cyanosis, dyspnea on exertion, erythema on extremities, irregular heart rhythm, leg edema, leg ulcers, numbness in extremities or weakness in extremities Respiratory/Chest Respiratory/Chest: Denies cough, excessive phlegm production, shortness of breath at rest, shortness of breath with exertion or wheezing Gastrointestinal Gastrointestinal: Denies anorexia, change in stool character, constipation, diarrhea, melena or rectal bleeding Genitourinary Genitourinary: Denies dysuria or hematuria Musculoskeletal Musculoskeletal: Denies abnormal gait Integumentary Integumentary: Reports other Details: ; Denies erythema, non-healing lesions or wounds Neurologic Neurologic: Denies abnormal speech, focal weakness, headache(s), loss of vision, numbness, paresthesias or sensory deficit Hematologic/Lymphatic Hematologic/Lymphatic: Denies easy bleeding, easy bruising or lymphadenopathy Vital Signs Vital Signs Vital Signs: 04/11/24 09:22 04/11/24 09:22 04/11/24 10:11 Temperature 97.2 F L 97.2 F L Temperature Source Temporal Pulse Rate 51 L 51 L Respiratory Rate 16 16 Respiratory Pattern Normal Blood Pressure 184/69 H 184/69 H Blood Pressure Mean 107 Blood Pressure Source Monitor Blood Pressure Position Semi-Fowlers Blood Pressure Location Left Arm Pulse Ox 98 98 Oxygen Delivery Method Room Air Room Air Weight Weight: 184 lb 4.903 oz Body Mass Index (BMI) 31.6 Physical Exam Const alert, oriented x3, no apparent distress and healthy appearing General Appearance: cooperative; Negative for combative or lethargic Orientation / Consciousness: awake Exam Limitations: no limitations HEENT Head and Scalp: normocephalic and atraumatic Eyes EOMs intact bilaterally General Eye: normal appearance of both eyes Neck full ROM, no lymphadenopathy and thyroid normal General: trachea midline; Negative for lymphadenopathy or tenderness Thyroid: thyroid normal Resp normal respiratory effort and no use of accessory muscles Effort and Inspection: Negative for labored, stridor or audible wheezes Cardio regular rate and regular rhythm Back/Spine Cervical Spine: cervical ROM normal Extremity full ROM, normal capillary refill and no clubbing, cyanosis or edema Skin no rashes or lesions noted and no wounds Neuro oriented x3, CN's II-XII intact bilaterally, no focal motor deficits and no sensory deficits noted Psych thought process normal, cooperative, affect normal, speech normal and activity/motor behavior normal Results Lab / Micro Data Labs: Laboratory Results - last 24 hr 04/11/24 09:00: POC PT 18.1 H, INR 1.7 04/11/24 09:22: PT 18.7 H, INR 1.6 Assessment & Plan Assessment/Plan (1) Symptomatic varicose veins of right lower extremity: PLAN: -prior thigh GSV ablation -will ligate SFJ, chemical ablation of calf GSV if feasible
--- NOTE | 2024-04-11 12:54 | DCINST_ITS ---
Discharge Instructions Diet Discharge Diet: No restrictions Activity May shower in (days): 2 Lifting Restrictions: do not lift >20 lbs for 14 days Additional Activity Instructions:: do not submerge incisions for 14 days Dressing / Incision Call your doctor if your incision/area has: Sudden Increased Bleeding, Increased Pain/ Swelling and Foul Smelling Discharge Call your doctor if you observe: Fever of 101 or Higher Remove Dressing in: 2 days Cleanse incision/area with: Soap & Water Follow Up Care Test Results: Test results from this visit will be discussed in further detail at your follow- up appointment, if applicable. Discharge Plan Admission Attending Provider: Brant Castillo Primary Care Provider: Racquel Jett Instructions Print Language: Lithuanian Discharge Orders/Prescriptions Prescriptions: New oxycodone 5 mg tablet 5 mg PO Q8H PRN (Reason: pain) 2 Days Qty: 6 0RF Continued biotin 1 mg capsule 1 mg PO DAILY furosemide 40 mg tablet 40 mg PO Q OTHER DAY PRN (Reason: edema) Patient Comments: QOD as needed levothyroxine 25 MCG tablet 25 mcg PO DAILY calcium carbonate 600 MG tablet 600 mg PO BID cholecalciferol (vitamin D3) 1,000 UNIT tablet 2,000 unit PO DAILY cyanocobalamin (vitamin B-12) 500 mcg tablet 1,000 mcg PO DAILY Vasculera 630 mg tablet 1 tab PO DAILY Align 10.5 mg (10 million cell) tablet,chewable 10.5 mg PO DAILY vitamin E 670 mg (1,000 unit) capsule 670 mg PO DAILY co [id number] oil-omega 3-E [id number] yo-fi-ta-unit capsule 1 cap PO MOWEFR alendronate 70 mg tablet 70 mg PO QWEEK albuterol sulfate 90 mcg/actuation HFA aerosol inhaler 2 puff INHALATION PRN PRN (Reason: wheezing) Trelegy Ellipta 200-62.5-25 mcg blister with device 1 inh inhalation DAILY warfarin 2 mg tablet See Rx Instructions .ROUTE .COMPLEX Protocol: Dose Management Condition: Wednesday Dose/Route: 2 mg Instruction: 1 x 2 mg tablet Condition: Wednesday Dose/Route: 2 mg Instruction: 1 x 2 mg tablet Condition: Wednesday Dose/Route: 3 mg Instruction: 1.5 x 2 mg tablets Condition: Wednesday Dose/Route: 3 mg Instruction: 1.5 x 2 mg tablets Condition: Dose/Route: 3 mg Instruction: 1.5 x 2 mg tablets Condition: Wednesday Dose/Route: 2 mg Instruction: 1 x 2 mg tablet Condition: Wednesday Dose/Route: 2 mg Instruction: 1 x 2 mg tablet Protocol Text: Adjustment Start Date: Wednesday03/31/24 INR Value: 2.6 INR Date: 03/31/24 Recheck Date: 04/18/24 Patient Comments: LAST DOSE 04/07/24 Rx Instructions: TAKE ONE 2 MG TABLET BY MOUTH ON WEDNESDAY, WEDNESDAY, WEDNESDAY AND WEDNESDAY. TAKE 1&1/2 2MG TABLETS ON WEDNESDAY-WEDNESDAY simvastatin 20 mg tablet 20 mg PO .// Qty: 36 3RF carvedilol 12.5 mg tablet See Rx Instructions .ROUTE .COMPLEX Qty: 180 3RF Dose Instruction: TAKE 1 TABLET BY MOUTH TWICE DAILY Rx Instructions: TAKE 1 TABLET BY MOUTH TWICE DAILY amiodarone 200 mg tablet See Rx Instructions .ROUTE .COMPLEX Qty: 45 3RF Dose Instruction: TAKE ONE-HALF TABLET BY MOUTH DAILY Rx Instructions: TAKE ONE-HALF TABLET BY MOUTH DAILY lisinopril 40 mg tablet 40 mg PO DAILY Qty: 90 3RF Referrals / Follow Up: Racquel Jett NP-C [Primary Care Provider] - Disposition Disposition (needs filled in before D/C Order can be placed): Home, Self Care
--- NOTE | 2024-04-11 13:04 | PCM.OPRPT ---
Report of Operation Date of Procedure: 04/11/24 Pre-Operative Diagnosis: right lower extremity varicose veins with pain Post-Operative Diagnosis: same Surgery/Procedure Performed:: ligation right saphenofemoral junction, confluences of accessory saphenous veins with GSV and SSV in distal calf Surgeon: Brant Castillo Type of Anesthesia: General Estimated Blood Loss (mL): 2 Description of Procedure: HPI: Patient is an 83-year-old female with recurrent painful varicose veins which are refractory to compression garments. She had been venous duplex imaging which revealed successful ablation of the thigh great saphenous vein with 2 accessory saphenous vein branches emanating from the saphenofemoral junction feeding thigh varicosities as well as accessory saphenous vein from the mid calf great saphenous vein feeding into the small saphenous vein in the more distal calf which also was incompetent. Given the configuration of accessory saphenous veins and the short segments to work within the lower leg it is felt that chemical ablation or RF ablation will not be successful and that simple ligation of the saphenofemoral junction as well as the junctional points of the accessory saphenous in the lower leg would provide symptom relief. She is taken now for saphenofemoral junction ligation with an ligation of the accessory saphenous varicosities in the lower leg. Description of procedure: Upon obtaining form consent and verification correct patient procedure site patient was taken to the [facility] which was placed under general anesthesia. She was then positioned prepped and draped in you sterile fashion timeout was performed. Ultrasound used to evaluate the great saphenous vein and confirmed discontinuity with regards to the thigh great saphenous vein posterior to the position of 2 accessory saphenous veins in the confluence with the saphenofemoral junction. Oblique incision made over the saphenofemoral junction above electrocautery was dissect down through subcutaneous tissue. Subcutaneous hydrated within position further dissection carried down to the [place] of the great saphenous vein. Sharp dissection used to dissect free proximal and distal and side branches and accessory saphenous veins were dissected free and ligated with silk ties and divided. Dissection was carried down to the confluence with the great saphenous vein and an atraumatic clamp placed disposition. The distal greater saphenous into the surgical field was then ligated with silk ties and the vessel divided. The stump of the saphenofemoral junction was then oversewn with 5-0 Prolene in running fashion. After completing the suture line clamps removed satisfactory stasis was noted. Next ultrasound was used to determine the position of the accessory saphenous and varicosity branches from the below the knee great saphenous vein and small saphenous vein. 3 separate incisions were made over each of these locations and both electrocautery to dissect out the subcutaneous tissue. Cefotan retractor then put in position and combination of sharp and blunt dissection was utilized until the vessels were identified. Each of these branches were ligated several ties and divided. Skin incision closed with 3-0 Vicryl, 4-0 Monocryl and Dermabond for the skin. At the inclusion the case patient was taken to the recovery room anticipated discharge to home.
--- NOTE | 2024-04-11 14:46 | PCM.POST.ANE ---
Anesthesia: Postop Eval I Current Vital Signs Temperature: 97 F Pulse Rate: 78 Blood Pressure: 142/78 Respiratory Rate: 16 Pulse Ox: 98 Oxygen Delivery Method: Room Air Assessment Airway patent: Yes Spontaneous unlabored respirations: Yes Mental status: Awake and Calm nausea: No Vomiting: No Anesthesia Complication: No Fluid Hydration Crystalloid volume administer (ml): 1,200 Total IV fluid infused: 1,200 Progress Note Anesthesia document: Postop Eval 1 completed: Yes
[2024-04-11] MEDS: oxyCODONE 5 MG Tablet PO (15:08)
== END 2024-04-11 15:50 | disposition home or self-care (01) ==
LOC: SDC 08:49 → AC 08:51
PROVIDERS: Anesthesiology; PCP Nurse Practitioner Family; Referring Provider Surgery Trauma Surgery; Visit Provider Surgery Trauma Surgery
PROC: (CPT 36482; principal; 2024-04-11 11:00)
DX: I83.811 Varicose veins of right lower extremity with pain (principal); I48.0 Paroxysmal atrial fibrillation; I42.8 Other cardiomyopathies; E03.9 Hypothyroidism, unspecified; I10 Essential (primary) hypertension; E78.00 Pure hypercholesterolemia, unspecified; G47.30 Sleep apnea, unspecified; J45.909 Unspecified asthma, uncomplicated; Z79.51 Long term (current) use of inhaled steroids; Z79.899 Other long term (current) drug therapy; Z79.01 Long term (current) use of anticoagulants
CPT/HCPCS: 36482; 01520; 37700; 36416; 85610; A4648; C1894; J7120; J2405

== ENCOUNTER → 2024-04-14 | Outpatient (CLI) | payer MEDICARE, OTHER, SELFPAY ==
--- NOTE | 2024-04-14 12:34 | VDLE_ITS ---
Reason For Study: S/P Rt GSV/ ASV Ligation/Ablation RIGHT LEFT CFV is compressible, spontaneous, phasic, CFV is compressible, spontaneous, phasic, competent and demonstrates normal competent, and demonstrates normal augmentation. augmentation. FV is compressible, spontaneous, phasic, competent and demonstrates normal augmentation. POP V is compressible, spontaneous, phasic, competent and demonstrates normal augmentation. T/P Trunk is compressible. PTV is compressible. RT PerV is compressible. GSV/ASV. No flow noted at SFJ and throughout GSV. Findings are consistent with recent ligation and stripping. Procedure This is a venous duplex using B-mode, color flow and spectral Doppler. Exam performed in department. The exam was diagnostic. VL/Venous Duplex US, Unilateral Interpretation Summary Deep veins of the right lower extremity are patent and compressible segmentally . There is no evidence of right lower extremity deep vein thrombosis. Saphenofemoral junction and great saphenous vein occluded throughout. Findings are consistent with recent ligation and stripping. Ordering Physician: Sharri Richter Referring Physician: Racquel Jett Performed By: Howard Aly RVT
== END | disposition home or self-care (01) ==
LOC: CVS 12:29
PROVIDERS: PCP Nurse Practitioner Family; Referring Provider Physician Assistant; Visit Provider Physician Assistant
DX: Z48.812 Encounter for surgical aftercare following surgery on the circulatory system (principal); I83.891 Varicose veins of right lower extremity with other complications
CPT/HCPCS: 93971

== ENCOUNTER 2024-05-05 07:56 | Outpatient (RCR) | payer MEDICARE, OTHER, SELFPAY ==
[2024-04-08 21:50] VITALS: BMI 31.6
[2024-04-14 10:39] LABS: International Normalized Ratio 1.7; Prothrombin Time (Protime)PT. 19.6 SECONDS (11.7-14.9)
[2024-05-05 10:57] LABS: International Normalized Ratio 3.7
== END 2024-05-05 18:00 | disposition home or self-care (01) ==
LOC: MTLAB 07:56
PROVIDERS: PCP Nurse Practitioner Family; Referring Provider Internal Medicine Cardiovascular Disease; Visit Provider Internal Medicine Cardiovascular Disease
DX: I48.0 Paroxysmal atrial fibrillation (principal); Z79.01 Long term (current) use of anticoagulants
CPT/HCPCS: 36415; 85610

== ENCOUNTER → 2024-05-31 | Outpatient (CLI) | payer MEDICARE, OTHER, SELFPAY ==
--- NOTE | 2024-05-31 09:46 | VDLE_ITS ---
Reason For Study: Leg Pain RIGHT LEFT CFV is compressible, spontaneous, phasic, GSV is normal. competent and demonstrates normal CFV is compressible, spontaneous, phasic, augmentation. competent, and demonstrates normal Procedure augmentation. This is a venous duplex using B-mode, color FV is compressible, spontaneous, phasic, flow and spectral Doppler. competent and demonstrates normal Exam performed in department. augmentation. A preliminary report was called and/or faxed POP V is compressible, spontaneous, phasic, to Delores Richter. competent and demonstrates normal augmentation. T/P Trunk is compressible. PTV is compressible. LT PerV is compressible. VL/Venous Duplex US, Unilateral Interpretation Summary Deep veins of the left lower extremity are patent and compressible segmentally. There is no evidence of left lower extremity deep vein thrombosis. The left great saphenous vein festus ears patent and compressible segmentally. Ordering Physician: Sharri Richter Referring Physician: Sharri Richter Performed By: Howard Aly RVT and Student
== END | disposition home or self-care (01) ==
LOC: CVS 09:46
PROVIDERS: PCP Nurse Practitioner Family; Referring Provider Physician Assistant; Visit Provider Physician Assistant
DX: M79.605 Pain in left leg (principal); Z98.890 Other specified postprocedural states
CPT/HCPCS: 93971

== ENCOUNTER 2024-06-08 09:07 | Outpatient (RCR) | payer MEDICARE, OTHER, SELFPAY ==
[2024-05-09 05:00] VITALS: BMI 31.6
[2024-05-12 10:37] LABS: International Normalized Ratio 2.1; Prothrombin Time (Protime)PT. 23.6 SECONDS (11.7-14.9)
[2024-05-29 10:30] LABS: International Normalized Ratio 1.9; Prothrombin Time (Protime)PT. 21.9 SECONDS (11.7-14.9)
[2024-05-29 10:52] LABS: AST(SGOT) 19 U/L (15-37); Alanine Aminotransfer ALT/SGPT 25 U/L (13-56); Albumin, Serum 3.6 g/dL (3.2-5.0); Alkaline Phosphatase 67 U/L (45-117); Bilirubin, Direct 0.15 mg/dL (0.00-0.30); Cholesterol 183 mg/dL (200); Globulin 3.4 g/dL (2.2-4.2); High Density Lipoprotein 70 mg/dL; Triglycerides 132 mg/dL; Very Low Density Lipoprotein 26 mg/dL (5-40)
[2024-06-08 12:28] LABS: Absolute Lymphocyte Count 1.81 X10^3/uL (0.83-4.51); Absolute Neutrophil Count 2.4 X10^3/uL (2.0-7.7); Basophil# 0.05 X10^3/uL; Eosinophil# 0.22 X10^3/uL; Eosinophils% 4.5 % (0-5); International Normalized Ratio 2.6; Lymphocyte # 1.81 X10^3/ul (0.83-4.51); Lymphocyte % 36.7 % (19-41); Mean Corpuscular Hgb 29.8 pg (27.0-32.0); Mean Corpuscular Volume 96.3 fL (81-99); Monocyte# 0.48 X10^3/uL; Monocyte% 9.7 % (0-10); NRBC Flagged by Analyzer 0 % (0-5); Neutrophil # 2.35 X10^3/uL (2.7-7.7); Neutrophil % 47.7 % (47-70); Platelet Count 239 K/mm3 (150-450); Prothrombin Time (Protime)PT. 27.4 SECONDS (11.7-14.9); RBC Distribution Width CV 14.6 % (11.6-14.6); RBC Distribution Width SD 52.3 fl (35.1-43.9); Red Blood Count 4.36 M/mm3 (4.2-5.4); White Blood Count 4.9 K/mm3 (4.4-11.0)
[2024-06-08 12:38] LABS: Vitamin B12 1200 pg/mL (211-911)
[2024-06-08 12:47] LABS: Anion Gap 1 (5-15); BUN 22 mg/dL (7-18); Calcium,Total 9.6 mg/dL (8.5-10.1); Chloride 109 mmol/L (98-107); Creatinine, Serum 1.16 mg/dL (0.55-1.02); EST Glomerular Filtration Rate 47 mL/min (>60); Est Glom Filt Rate - Afr Amer 57 mL/min (>60); Glucose 100 mg/dL (74-106); Magnesium 2.5 mg/dL (1.6-2.6); Potassium 5.2 mmol/L (3.5-5.1); Sodium Level 142 mmol/L (136-145)
[2024-06-12 13:08] LABS: Vitamin D 1,25-Dihydroxy 27.5 pg/mL (24.8-81.5)
== END 2024-06-08 18:00 | disposition home or self-care (01) ==
LOC: MTLAB 09:07
PROVIDERS: Physician Assistant Medical; PCP Nurse Practitioner Family; Referring Provider Internal Medicine Cardiovascular Disease; Visit Provider Internal Medicine Cardiovascular Disease
DX: Z79.01 Long term (current) use of anticoagulants; J44.9 Chronic obstructive pulmonary disease, unspecified; E53.8 Deficiency of other specified B group vitamins; I48.91 Unspecified atrial fibrillation; N18.31 Chronic kidney disease, stage 3a; E55.9 Vitamin D deficiency, unspecified; E78.00 Pure hypercholesterolemia, unspecified
CPT/HCPCS: 36415; 80048; 80061; 80076; 82607; 82652; 82746; 83735; 85025; 85610

== ENCOUNTER 2024-07-05 09:02 | Outpatient (RCR) | payer MEDICARE, OTHER, SELFPAY ==
[2024-06-08 21:20] VITALS: BMI 31.6
[2024-07-05 10:59] LABS: Prothrombin Time (Protime)PT. 22.1 SECONDS (11.7-14.9)
[2024-08-07 14:28] LABS: International Normalized Ratio 2.1; Prothrombin Time (Protime)PT. 24.3 SECONDS (11.7-14.9)
== END 2024-07-08 18:00 | disposition home or self-care (01) ==
LOC: MTLAB 09:02
PROVIDERS: PCP Nurse Practitioner Family; Referring Provider Internal Medicine Cardiovascular Disease; Visit Provider Internal Medicine Cardiovascular Disease
DX: I48.0 Paroxysmal atrial fibrillation (principal); Z79.01 Long term (current) use of anticoagulants
CPT/HCPCS: 36415; 85610

== ENCOUNTER 2024-08-07 09:27 | Outpatient (RCR) | payer MEDICARE, OTHER, SELFPAY ==
[2024-07-09 02:43] VITALS: BMI 31.6
== END 2024-08-07 18:00 | disposition home or self-care (01) ==
LOC: MTLAB 09:27
PROVIDERS: PCP Nurse Practitioner Family; Referring Provider Internal Medicine Cardiovascular Disease; Visit Provider Internal Medicine Cardiovascular Disease
DX: I48.0 Paroxysmal atrial fibrillation (principal); Z79.01 Long term (current) use of anticoagulants

== ENCOUNTER 2024-09-08 08:37 | Outpatient (RCR) | payer MEDICARE, OTHER, SELFPAY ==
[2024-08-09 05:23] VITALS: BMI 31.6
[2024-08-31 10:23] LABS: International Normalized Ratio 3.6; Prothrombin Time (Protime)PT. 36.9 SECONDS (11.7-14.9)
[2024-09-08 10:50] LABS: International Normalized Ratio 2.9; Prothrombin Time (Protime)PT. 31.1 SECONDS (11.7-14.9)
== END 2024-09-08 18:00 | disposition home or self-care (01) ==
LOC: MTLAB 08:37
PROVIDERS: PCP Nurse Practitioner Family; Referring Provider Internal Medicine Cardiovascular Disease; Visit Provider Internal Medicine Cardiovascular Disease
DX: I48.0 Paroxysmal atrial fibrillation (principal); Z79.01 Long term (current) use of anticoagulants

== ENCOUNTER 2024-09-29 08:18 | Outpatient (RCR) | payer MEDICARE, OTHER, SELFPAY ==
[2024-09-09 02:35] VITALS: BMI 31.6
[2024-09-29 10:33] LABS: International Normalized Ratio 2.4; Prothrombin Time (Protime)PT. 26.4 SECONDS (11.7-14.9)
== END 2024-10-06 18:00 | disposition home or self-care (01) ==
LOC: MTLAB 08:18
PROVIDERS: PCP Nurse Practitioner Family; Referring Provider Internal Medicine Cardiovascular Disease; Visit Provider Internal Medicine Cardiovascular Disease
DX: I48.0 Paroxysmal atrial fibrillation (principal); Z79.01 Long term (current) use of anticoagulants
CPT/HCPCS: 36415; 85610

== ENCOUNTER 2024-10-27 08:40 | Outpatient (RCR) | payer MEDICARE, OTHER, SELFPAY ==
[2024-10-07 08:08] VITALS: BMI 31.6
[2024-10-27 10:34] LABS: Absolute Lymphocyte Count 1.82 X10^3/uL (0.83-4.51); Absolute Neutrophil Count 3.2 X10^3/uL (2.0-7.7); Basophil# 0.06 X10^3/uL; Eosinophil# 0.24 X10^3/uL; Eosinophils% 4.1 % (0-5); Hematocrit 41.1 % (37-47); Hemoglobin 13.2 g/dL (12.0-15.0); Lymphocyte # 1.82 X10^3/ul (0.83-4.51); Mean Corp Hgb Conc 32.1 g/dL (32-36); Mean Corpuscular Hgb 30.9 pg (27.0-32.0); Mean Corpuscular Volume 96.3 fL (81-99); Mean Platelet Vol. 11.4 fl (6.2-12.0); Monocyte# 0.49 X10^3/uL; Monocyte% 8.3 % (0-10); NRBC Flagged by Analyzer 0 % (0-5); Neutrophil # 3.24 X10^3/uL (2.7-7.7); Neutrophil % 55.3 % (47-70); Platelet Count 236 K/mm3 (150-450); RBC Distribution Width CV 13.9 % (11.6-14.6); RBC Distribution Width SD 49.5 fl (35.1-43.9); Red Blood Count 4.27 M/mm3 (4.2-5.4); White Blood Count 5.9 K/mm3 (4.4-11.0)
[2024-10-27 10:42] LABS: Color, Urine Yellow (Yellow); Glucose, Dipstick Normal (Normal); Ketone-Dipstick Negative (Negative); Leukocyte Esterase-Dipstick 500 /ul (Negative); Nitrite-Dipstick Negative (Negative); Occult Blood-Urine 25 /ul (Negative); Protein-Dipstick 30 mg/dl (Negative); Specific Gravity, Urine 1.015 (1.002-1.030); Urine Bilirubin Dipstick Negative (Negative); Urine Clarity Sl. Cloudy (Clear); Urine Urobilinogen Normal (Normal)
[2024-10-27 11:04] LABS: Microalbumin,Random Urine 12.2 mg/L (NO RANGE EST.); Microalbumin:Creatinine Ratio 79.2 mg/g CRE
[2024-10-27 11:11] LABS: ALB/GLOB Ratio 1.7 RATIO (0.9-2.4); AST(SGOT) 19 U/L (<=31); Alanine Aminotransfer ALT/SGPT 16 U/L (<=34); Albumin, Serum 4.1 g/dL (3.4-4.8); Alkaline Phosphatase 61 U/L (35-104); Anion Gap 7 (5-15); BUN 22 mg/dL (4-19); BUN/Creat Ratio 18.3 RATIO (10-20); Calcium,Total 9.8 mg/dL (7.6-11.0); Carbon Dioxide 29.5 mmol/L (21.0-32.0); Chloride 105 mmol/L (98-108); Creatinine, Serum 1.18 mg/dL (0.70-1.20); EST Glomerular Filtration Rate 45 (>60); Globulin 2.5 g/dL (2.2-4.2); Glucose 92 mg/dL (70-99); Potassium 4.8 mmol/L (3.3-5.1); Protein, Total 6.6 g/dL (5.9-8.4); Sodium Level 142 mmol/L (133-145); Total Bilirubin 0.42 mg/dL (0.00-1.30)
[2024-10-27 12:35] LABS: International Normalized Ratio 2.1; Prothrombin Time (Protime)PT. 23.6 SECONDS (11.7-14.9)
== END 2024-10-27 18:00 | disposition home or self-care (01) ==
LOC: MTLAB 08:40
PROVIDERS: PCP Nurse Practitioner Family; Referring Provider Internal Medicine Cardiovascular Disease; Visit Provider Internal Medicine Cardiovascular Disease
DX: I13.10 Hypertensive heart and chronic kidney disease without heart failure, with stage 1 through stage 4 chronic kidney disease, or unspecified chronic kidney disease (principal); N18.31 Chronic kidney disease, stage 3a; D64.9 Anemia, unspecified; E03.9 Hypothyroidism, unspecified; I48.0 Paroxysmal atrial fibrillation; Z79.01 Long term (current) use of anticoagulants
CPT/HCPCS: 36415; 80053; 81002; 82043; 82570; 84443; 85025; 85610

== ENCOUNTER → 2024-11-23 | Outpatient (CLI) | payer MEDICARE, OTHER, SELFPAY ==
--- NOTE | 2024-11-23 16:35 | RAD_ITS ---
PROCEDURE: CHEST PA AND LATERAL 11/23/2024 REASON FOR EXAM: COUGH TECHNIQUE: Frontal and lateral views of the chest. FINDINGS: Hardware: Sternotomy wires are present. Heart: Heart size is mildly enlarged. Mediastinum: The mediastinal contour is unremarkable. Lungs: 1 cm nodular opacity in the upper right lung worrisome for pulmonary nodule in correlation with prior chest x-ray or chest CT may be useful. Bones: Unremarkable. RAD/Chest PA and Lateral IMPRESSION: Possible 1 cm right upper lobe nodule and correlation with prior chest x-ray or chest CT may be useful. Reading Location: [id number]
== END | disposition home or self-care (01) ==
LOC: MTRAD 16:34
PROVIDERS: PCP Nurse Practitioner Family; Referring Provider Physician Assistant Surgical; Visit Provider Physician Assistant Surgical
DX: R05.9 Cough, unspecified (principal)
CPT/HCPCS: 71046

== ENCOUNTER 2024-11-30 12:29 | Outpatient (RCR) | payer MEDICARE, OTHER, SELFPAY ==
[2024-11-06 23:31] VITALS: BMI 31.6
[2024-11-24 10:14] LABS: International Normalized Ratio 1.8; Prothrombin Time (Protime)PT. 20.8 SECONDS (11.7-14.9)
[2024-11-24 10:30] LABS: AST(SGOT) 22 U/L (<=31); Alanine Aminotransfer ALT/SGPT 20 U/L (<=34); Albumin, Serum 4.1 g/dL (3.4-4.8); Alkaline Phosphatase 72 U/L (35-104); Bilirubin, Direct 0.21 mg/dL (0.00-0.30); Cholesterol 181 mg/dL (<=200); Globulin 2.6 g/dL (2.2-4.2); High Density Lipoprotein 60 mg/dL; Low Density Lipoprotein Calc. 102 mg/dL; Protein, Total 6.7 g/dL (5.9-8.4); Total Bilirubin 0.46 mg/dL (0.00-1.30); Triglycerides 95 mg/dL; Very Low Density Lipoprotein 19 mg/dL (5-40); cholesterol:hdl ratio screen 3.04
[2024-11-30 16:37] LABS: Prothrombin Time (Protime)PT. 23.4 SECONDS (11.7-14.9)
== END 2024-12-06 18:00 | disposition home or self-care (01) ==
LOC: MTLAB 12:29
PROVIDERS: Physician Assistant Medical; PCP Nurse Practitioner Family; Referring Provider Internal Medicine Cardiovascular Disease; Visit Provider Internal Medicine Cardiovascular Disease
DX: I48.0 Paroxysmal atrial fibrillation (principal); Z79.01 Long term (current) use of anticoagulants; E78.00 Pure hypercholesterolemia, unspecified
CPT/HCPCS: 36415; 80061; 80076; 85610

== ENCOUNTER 2024-12-08 08:36 | Outpatient (RCR) | payer MEDICARE, OTHER, SELFPAY ==
[2024-12-07 00:54] VITALS: BMI 31.6
[2024-12-08 11:48] LABS: International Normalized Ratio 2.4
== END 2024-12-08 18:00 | disposition home or self-care (01) ==
LOC: MTLAB 08:36
PROVIDERS: PCP Nurse Practitioner Family; Referring Provider Internal Medicine Cardiovascular Disease; Visit Provider Internal Medicine Cardiovascular Disease
DX: I48.0 Paroxysmal atrial fibrillation (principal); Z79.01 Long term (current) use of anticoagulants
CPT/HCPCS: 36415; 85610

== ENCOUNTER → 2025-01-12 | Outpatient (CLI) | payer MEDICARE, OTHER, SELFPAY ==
--- NOTE | 2025-01-12 12:28 | BI_ITS ---
EXAM: SCRN MAMM (CAD)W/LUIS ALBERTO BILAT 01/12/2025 CLINICAL HISTORY: F, Age 84 y/o , SCRN MAMM (CAD)W/LUIS ALBERTO BILAT TECHNIQUE: Bilateral screening digital breast tomosynthesis with 2D and 3D images. Computer aided detection. COMPARISON: Prior exam(s) dated 01/11/2024, 11/10/2022, 11/06/2021. FINDINGS: TISSUE DENSITY: The breast tissue is composed of scattered area of fibroglandular density. Bilateral Breast Mammographic Findings: No significant masses, calcifications or other abnormalities are identified. BI/SCRN MAMM (CAD)W/LUIS ALBERTO BILAT IMPRESSION: Right Breast: BIRADS 1 NEGATIVE. Left Breast: BIRADS 1 NEGATIVE. OVERALL FINAL ASSESSMENT: BIRADS 1 NEGATIVE. RECOMMENDATION: Routine annual follow-up in 1 Year A letter with findings and recommendations will be mailed to the patient. Reading Location: [id number]
== END | disposition home or self-care (01) ==
LOC: OPBI 12:26
PROVIDERS: PCP Nurse Practitioner Family; Referring Provider Nurse Practitioner Family; Visit Provider Nurse Practitioner Family
DX: Z12.31 Encounter for screening mammogram for malignant neoplasm of breast (principal)
CPT/HCPCS: 77063; 77067

== ENCOUNTER 2025-02-02 09:02 | Outpatient (RCR) | payer MEDICARE, OTHER, SELFPAY ==
[2025-01-07 21:18] VITALS: BMI 31.6
[2025-01-12 10:33] LABS: International Normalized Ratio 2.7; Prothrombin Time (Protime)PT. 29.2 SECONDS (11.7-14.9)
[2025-02-02 10:40] LABS: International Normalized Ratio 1.9; Prothrombin Time (Protime)PT. 21.9 SECONDS (11.7-14.9)
== END 2025-02-02 18:00 | disposition home or self-care (01) ==
LOC: MTLAB 09:02
PROVIDERS: PCP Nurse Practitioner Family; Referring Provider Internal Medicine Cardiovascular Disease; Visit Provider Internal Medicine Cardiovascular Disease
DX: Z79.01 Long term (current) use of anticoagulants; I40.0 Infective myocarditis
CPT/HCPCS: 36415; 85610

== ENCOUNTER 2025-02-16 11:44 | Outpatient (RCR) | payer MEDICARE, OTHER, SELFPAY ==
[2025-02-16 15:32] LABS: Prothrombin Time (Protime)PT. 30.7 SECONDS (11.7-14.9)
== END 2025-03-08 18:00 | disposition home or self-care (01) ==
LOC: MTLAB 11:44
PROVIDERS: PCP Nurse Practitioner Family; Referring Provider Internal Medicine Cardiovascular Disease; Visit Provider Internal Medicine Cardiovascular Disease
DX: Z79.01 Long term (current) use of anticoagulants; I48.0 Paroxysmal atrial fibrillation
CPT/HCPCS: 36415; 85610

== ENCOUNTER 2025-04-02 08:37 | Outpatient (RCR) | payer MEDICARE, OTHER, SELFPAY ==
[2025-03-26 10:29] LABS: Hematocrit 39.5 % (37-47); Hemoglobin 12.8 g/dL (12.0-15.0); Immature Granulocytes Count 0.010 X10^3/uL (0.0-0.0); Mean Corp Hgb Conc 32.4 g/dL (32-36); Mean Corpuscular Volume 95.6 fL (81-99); Mean Platelet Vol. 11.1 fl (6.2-12.0); NRBC Flagged by Analyzer 0 % (0-5); Platelet Count 229 K/mm3 (150-450); RBC Distribution Width CV 13.3 % (11.6-14.6); RBC Distribution Width SD 47.0 fl (35.1-43.9); Red Blood Count 4.13 M/mm3 (4.2-5.4); White Blood Count 5.8 K/mm3 (4.4-11.0)
[2025-03-26 10:42] LABS: Prothrombin Time (Protime)PT. 34.7 SECONDS (11.7-14.9)
[2025-03-26 10:59] LABS: AST(SGOT) 20 U/L (<=31); Alanine Aminotransfer ALT/SGPT 23 U/L (<=34); Albumin, Serum 4.3 g/dL (3.4-4.8); Alkaline Phosphatase 59 U/L (35-104); Anion Gap 11 (5-15); BUN 41 mg/dL (4-19); BUN/Creat Ratio 30.7 RATIO (10-20); Bilirubin, Direct 0.16 mg/dL (0.00-0.30); Calcium,Total 10.6 mg/dL (7.6-11.0); Carbon Dioxide 27.5 mmol/L (21.0-32.0); Chloride 105 mmol/L (98-108); Globulin 2.3 g/dL (2.2-4.2); Glucose 96 mg/dL (70-99); Potassium 4.4 mmol/L (3.3-5.1)
[2025-03-26 12:03] LABS: Cholesterol 171 mg/dL (<=200); Low Density Lipoprotein Calc. 85 mg/dL; Triglycerides 108 mg/dL; Very Low Density Lipoprotein 22 mg/dL (5-40); cholesterol:hdl ratio screen 2.65
[2025-03-28 15:08] LABS: Vitamin D 1,25-Dihydroxy 19.4 pg/mL (24.8-81.5)
--- NOTE | 2025-04-02 08:43 | RAD_ITS ---
PROCEDURE: L/S SPINE MIN 4 VIEWS 04/02/2025 REASON FOR EXAM: XR LUMBAR SPINE 5V Upper and lower back pain for 2 months. TECHNIQUE: L/S SPINE MIN 4 VIEWS COMPARISON: None FINDINGS: Five views of the lumbosacral spine were obtained and demonstrate diffuse osteopenia of the osseous structures. There are no fractures of the sacrum. There is a dextroscoliosis of the lumbar spine. There is a decrease in height of the L3, L4 and L5 vertebral bodies by approximately 5%. These may be related to osteoporotic compression fractures. The age of which is indeterminate. History of anteriolisthesis of L3 in relationship to L4. There is approximately 2 mm of retrolisthesis of L1 in relationship to L2. There is disc space narrowing involving all of the disc spaces. This is most pronounced at the L1-L2 level. There does appear to be bony encroachment on the neural foramina at all levels. This appears to be most pronounced involving the lower lumbar spine region. 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 Mild osteoarthritic changes are seen involving the SI joints. A 9 mm calcific density is projected over the left iliac wing which is believed to represent medication/fecal material within the colon. RAD/L/S Spine Min 4 Views IMPRESSION: Spondylosis of the lumbar spine is noted. There is a slight decrease in height of the L3, L4 and L5 vertebral bodies by a pproximately 5%. These may be related to osteoporotic compression fractures. The age of which is indeterminate. Degenerative disc disease involving the lumbar disc spaces. This is most prono unced at the L1-L2 level. Dextroscoliosis of the lumbar spine. 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 RECOMMENDATION: An MRI of the lumbar spine may be of value for further evaluati on of the disc space, nerve roots, soft tissue structures and decrease in height of the L3, L4 and L5 vertebral bodies, if cli nically warranted. Reading Location: [id number]
[2025-04-02 11:13] LABS: Prothrombin Time (Protime)PT. 28.5 SECONDS (11.7-14.9)
== END 2025-04-02 18:00 | disposition home or self-care (01) ==
LOC: MTLAB 08:37
PROVIDERS: Physician Assistant Medical; PCP Nurse Practitioner Family; Referring Provider Internal Medicine Cardiovascular Disease; Visit Provider Internal Medicine Cardiovascular Disease
DX: I48.0 Paroxysmal atrial fibrillation (principal); Z79.01 Long term (current) use of anticoagulants; M54.9 Dorsalgia, unspecified; R06.09 Other forms of dyspnea; Z98.890 Other specified postprocedural states; I42.8 Other cardiomyopathies; E78.00 Pure hypercholesterolemia, unspecified; Z79.899 Other long term (current) drug therapy
CPT/HCPCS: 36415; 72110; 80048; 80061; 80076; 82652; 84443; 85025; 85610

== ENCOUNTER → 2025-04-12 | Outpatient (CLI) | payer MEDICARE, OTHER, SELFPAY ==
--- NOTE | 2025-04-12 09:35 | MRI_ITS ---
PROCEDURE: SPINE LUMBAR (ROUTINE) 04/12/2025 REASON FOR EXAM: OTHER DDD, LUMBAR REGION WITHOUT MENTION TECHNIQUE: Procedure Code: MRISPL Modality: MR Procedure: SPINE LUMBAR (ROUTINE) COMPARISON: April 02, 2025 FINDINGS: There is mild levoconvex scoliosis of the lumbar spine. Benign signal lesions are noted at multiple levels, possibly hemangiomata. The conus is noted posterior to L1. The paravertebral soft tissues are unremarkable. T12-L1: There is a concentric disc bulge and left subarticular zone protrusion. No significant stenosis. L1-2: There is a concentric disc bulge with a pronounced protrusion in the left foraminal zone. There is no central canal stenosis although the nerve root on the left may be compressed. L2-3: There is a concentric disc bulge and bilateral facet arthropathy. No significant stenosis. L3-4: There is pronounced right-sided facet arthropathy as well as a concentric disc bulge with more pronounced central zone protrusion on image 19, series 11. There is moderate central canal stenosis to 6 mm. The lateral recess on the right is likely compromise. L4-5: There is a concentric disc bulge most pronounced in the right extraforaminal zone as well as right-sided facet arthropathy. The nerve root on the right may be compressed. Mild AP canal diameter narrowing to 9 mm. L5-S1: There is a concentric disc bulge which contacts the exiting nerve root on the right but does not compress it. The exiting nerve root on the left may be compressed. Bilateral facet arthropathy as well. Sacrum: Unremarkable MRI/Spine Lumbar (Routine) IMPRESSION: Multilevel degenerative disc disease. With possible nerve root compression on the left at L1-L2, compromise of the lateral recess on the right at L3-L4, possible nerve root compression on the right at L 4-L5 and on the left at L5-S1. Moderate central canal stenosis at L3-L4 and mild stenosis at L4-L5. Please see above for additional details by level. Reading Location: [facility]
== END | disposition home or self-care (01) ==
LOC: MRI 09:26
PROVIDERS: PCP Nurse Practitioner Family; Referring Provider Nurse Practitioner Family; Visit Provider Nurse Practitioner Family
DX: M51.369 Other intervertebral disc degeneration, lumbar region without mention of lumbar back pain or lower extremity pain (principal)
CPT/HCPCS: 72148

== ENCOUNTER → 2025-04-18 | Outpatient (CLI) | payer MEDICARE, OTHER, SELFPAY ==
--- NOTE | 2025-04-18 12:58 | ECHOD_ITS ---
Reason For Study Reason For Study: Dyspnea/SOB Procedure This was a 2D Doppler, Color Flow transthoracic echocardiogram. Myocardial strain analysis was performed in this exam to aid in the assessment of cardiac function. Exam performed in department. Left Ventricle Normal LV size. The global longitudinal strain = -15.0% (abnormal). The left ventricular ejection fraction is 50 %. There is mild global hypokinesis of the left ventricle. Right Ventricle Normal RV size. Normal systolic function. Atria The left atrium is moderately enlarged. Normal right atrium. Mitral Valve Bileaflet diffuse mitral valve thickening. Mitral valve doming/Hockey Sticking. Peak transmitral valve gradient 4.8 mmHg. Mean transmitral valve gradient 2.3 mmHg. Mild (1+) eccentric mitral valve insufficiency. Status post mitral valve repair with annuloplasty ring. Tricuspid Valve Normal tricuspid valve. Mild tricuspid valve insufficiency. Pulmonary artery systolic pressure is 24 mmHg. Aortic Valve Trisinus/trileaflet aortic valve. Mild (1+) aortic valve insufficiency. Pulmonic Valve Normal pulmonic valve. Great Vessels Normal aortic root. The pulmonary artery is normal size. Inferior vena cava collapse with respiration. Pericardium/Pleural No pericardial effusion. MMode/2D Measurements & Calculations LVIDd: 4.7 cm IVSd: 1.1 cm Ao root diam: 3.2 cm LVIDs: 2.9 cm LVPWd: 0.98 cm RVDd: 3.9 cm FS: 37.7 % LAV(MOD-bp): 87.4 ml LVAd ap4: 25.5 cm2 SV(MOD-sp4): 34.5 ml LAV(MOD-bp) Indexed: 47.2 ml/m2 LVLd ap4: 7.5 cm SI(MOD-sp4): 18.6 ml/m2 LAV(MOD-sp2): 86.2 ml EDV(MOD-sp4): 71.1 ml LAV(MOD-sp4): 78.0 ml EDV(sp4-el): 73.4 ml LVAs ap4: 17.4 cm2 LVLs ap4: 7.0 cm ESV(MOD-sp4): 36.6 ml ESV(sp4-el): 36.5 ml EF(MOD-sp4): 48.5 % EF(sp4-el): 50.3 % SV(sp4-el): 37.0 ml LA A4 area: 24.5 cm2 LA dimension(2D): 3.8 cm RA A4 area: 13.9 cm2 Time Measurements MV dec time: 0.55 sec Doppler Measurements & Calculations MV E max jaret: 93.9 cm/sec Lat Peak E' Jaret: 6.6 cm/sec Med Peak E' Jaret: 6.1 cm/sec MV A max jaret: 101.9 cm/sec E/E' lat: 14.1 E/E' med: 15.5 MV E/A: 0.92 MV V2 max: 109.5 cm/sec MV P1/2t max jaret: 89.9 cm/sec Ao V2 max: 75.1 cm/sec MV max P.8 mmHg MV P1/2t: 158.1 msec Ao max P.3 mmHg MV V2 mean: 72.1 cm/sec Ao V2 mean: 53.1 cm/sec MV mean P.3 mmHg MV dec slope: 166.7 cm/sec2 Ao mean P.3 mmHg MV V2 VTI: 49.9 cm MVA(P1/2t): 1.4 cm2 Ao V2 VTI: 19.6 cm AV (velocity ratio): 1.1 AI max jaret: 334.3 cm/sec LV V1 max: 78.9 cm/sec PA V2 max: 52.6 cm/sec AI max P.7 mmHg LV V1 max P.5 mmHg LV V1 mean P.4 mmHg AI dec slope: 103.4 cm/sec2 LV V1 mean: 54.4 cm/sec AI P1/2t: 946.7 msec LV V1 VTI: 20.9 cm TR max jaret: 232.4 cm/sec TR max P.7 mmHg ECHO/Echo Complete Interpretation Summary Normal LV size. The global longitudinal strain = -15.0% (abnormal). The left ventricular ejection fraction is 50 %. There is mild global hypokinesis of the left ventricle. Status post mitral valve repair with annuloplasty ring. Mean transmitral valve gradient 2.3 mmHg. Bileaflet diffuse mitral valve thickening. Mitral valve doming/Hockey Sticking Compared to the previous no significant changes noted. Ordering Physician: Jennifer Goodwin Referring Physician: Jennifer Goodwin Performed By: Matthew Lamas RCS
== END | disposition home or self-care (01) ==
LOC: CVS 12:57
PROVIDERS: PCP Nurse Practitioner Family; Referring Provider Physician Assistant Medical; Visit Provider Physician Assistant Medical
DX: I34.2 Nonrheumatic mitral (valve) stenosis (principal)
CPT/HCPCS: 93306

== ENCOUNTER 2025-05-04 08:48 | Outpatient (RCR) | payer MEDICARE, OTHER, SELFPAY ==
[2025-04-20 10:52] LABS: Prothrombin Time (Protime)PT. 32.6 SECONDS (11.7-14.9)
[2025-05-04 10:30] LABS: Prothrombin Time (Protime)PT. 33.1 SECONDS (11.7-14.9)
== END 2025-05-08 18:00 | disposition home or self-care (01) ==
LOC: MTLAB 08:48
PROVIDERS: PCP Nurse Practitioner Family; Referring Provider Internal Medicine Cardiovascular Disease; Visit Provider Internal Medicine Cardiovascular Disease
DX: I48.0 Paroxysmal atrial fibrillation (principal); Z79.01 Long term (current) use of anticoagulants
CPT/HCPCS: 36415; 85610

== ENCOUNTER 2025-06-01 08:27 | Outpatient (RCR) | payer MEDICARE, OTHER, SELFPAY ==
[2025-06-01 10:17] LABS: Prothrombin Time (Protime)PT. 25.9 SECONDS (11.7-14.9)
== END 2025-06-01 18:00 | disposition home or self-care (01) ==
LOC: MTLAB 08:27
PROVIDERS: PCP Nurse Practitioner Family; Referring Provider Internal Medicine Cardiovascular Disease; Visit Provider Internal Medicine Cardiovascular Disease
DX: I48.0 Paroxysmal atrial fibrillation (principal); Z79.01 Long term (current) use of anticoagulants
CPT/HCPCS: 36415; 85610

== ENCOUNTER 2025-06-29 09:00 | Outpatient (RCR) | payer MEDICARE, OTHER, SELFPAY ==
[2025-06-29 10:51] LABS: Prothrombin Time (Protime)PT. 22.8 SECONDS (11.7-14.9)
== END 2025-07-08 18:00 | disposition home or self-care (01) ==
LOC: MTLAB 09:00
PROVIDERS: PCP Nurse Practitioner Family; Referring Provider Internal Medicine Cardiovascular Disease; Visit Provider Internal Medicine Cardiovascular Disease
DX: Z79.01 Long term (current) use of anticoagulants (principal); I48.0 Paroxysmal atrial fibrillation
CPT/HCPCS: 36415; 85610

== ENCOUNTER 2025-07-27 09:02 | Outpatient (RCR) | payer MEDICARE, OTHER, SELFPAY ==
[2025-07-27 10:22] LABS: Prothrombin Time (Protime)PT. 26.2 SECONDS (11.7-14.9)
== END 2025-07-27 18:00 | disposition home or self-care (01) ==
LOC: MTLAB 09:02
PROVIDERS: PCP Nurse Practitioner Family; Referring Provider Internal Medicine Cardiovascular Disease; Visit Provider Internal Medicine Cardiovascular Disease
DX: Z79.01 Long term (current) use of anticoagulants (principal); I48.0 Paroxysmal atrial fibrillation
CPT/HCPCS: 36415; 85610